=== PATIENT | female | born 1970 | race Caucasian/White ===

== ENCOUNTER 2017-11-14 19:40 | Outpatient (REF) | payer MEDICARE, MEDICAID, SELFPAY ==
[2017-11-14 20:39] LABS: ALT 17 U/L (12-78); AST 18 U/L (15-37); Alkaline Phosphatase 57 U/L (46-116); BUN 11 mg/dL (7-18); Bilirubin, Total 0.5 mg/dL (0.2-1.0); CREATININE 0.75 mg/dL (0.55-1.02); Calcium 9.4 mg/dL (8.5-10.1); Chloride 102 mmol/L (98-107); Cholesterol 131 mg/dL (50-200); Glucose 95 mg/dL (70-100); HDL Cholesterol 23 mg/dL (40-60); LDL CHOLESTEROL 73 mg/dL (<100); Potassium 4.2 mmol/L (3.5-5.1); Sodium 139 mmol/L (136-145); Total Protein 7.1 g/dL (6.4-8.2); Triglyceride 242 mg/dL (30-150)
== END 2017-11-14 20:00 ==
LOC: NCHCN 19:40
PROVIDERS: PCP Physician Assistant Medical; Visit Provider Physician Assistant Medical
DX: E10.9 Type 1 diabetes mellitus without complications (principal); Z79.4 Long term (current) use of insulin
CPT/HCPCS: 80053; 80061; 83721

== ENCOUNTER → 2018-01-01 10:55 | Outpatient (BNVA) | payer MEDICARE, MEDICAID, SELFPAY | PROVIDERS: PCP Physician Assistant Medical; Visit Provider Orthopaedic Surgery | DX: M17.0 Bilateral primary osteoarthritis of knee (principal); J44.9 Chronic obstructive pulmonary disease, unspecified; F17.210 Nicotine dependence, cigarettes, uncomplicated; I10 Essential (primary) hypertension; E11.9 Type 2 diabetes mellitus without complications; Z79.4 Long term (current) use of insulin | CPT/HCPCS: 20610; 99211; 99213; J7325 ==

== ENCOUNTER 2018-04-27 00:58 | Inpatient (IN) | payer MEDICARE, MEDICAID, SELFPAY ==
[2018-04-27] VITALS (31 sets, daily range): BP systolic 95–132; BP diastolic 37–87; PULSE 70–128; RESP 2–36; TEMP 35.3–37.8; O2SAT 65–97
--- NOTE | 2018-04-27 00:59 | W.ED.GENAD ---
Discharge Plan Disposition Patient Disposition: [facility] INPATIENT Condition: Stable Discharge Details Chief Complaint: SOB Clinical Impression: Influenza, COPD exacerbation Primary Care Provider: Maria Del Carmen Nogueira ED Provider: Jefferson Calvert Home Meds and New Rx's Prescriptions: No Action bupropion HCl 100 MG tablet 100 mg PO DAILY RF: 0 bupropion HCl 100 MG tablet 300 mg PO DAILY RF: 0 amlodipine 10 MG tablet 10 mg PO DAILY RF: 0 omeprazole 20 MG capsule,delayed release(DR/EC) 20 mg PO DAILY RF: 0 rosuvastatin [Crestor] 10 MG tablet 40 mg PO DAILY RF: 0 desvenlafaxine succinate [Pristiq] 100 MG tablet extended release 24 hr 100 mg PO DAILY RF: 0 metformin 500 MG tablet 1,000 mg PO BID RF: 0 methylphenidate HCl [Ritalin] 20 MG tablet 20 mg PO BID RF: 0 oxycodone-acetaminophen [Percocet] 1 EACH tablet 1 tab-cap PO Q4H PRN RF: 0 lorazepam 1 MG tablet 1 mg PO PRN RF: 0 albuterol sulfate 8.5 GM HFA aerosol inhaler 1 - 2 puff Inhalation Q4H PRN RF: 0 norethindrone acetate 5 MG tablet 5 mg PO DAILY Qty: 90 RF: 4 polyethylene glycol 3350 [Miralax] 17 GM powder in packet 17 g PO DAILY Qty: 255 RF: 0 methylphenidate HCl [Ritalin] 10 MG tablet 20 mg PO BID RF: 0 chlorthalidone 25 MG tablet 25 mg PO DAILY RF: 0 baclofen 10 MG tablet 10 mg PO BID RF: 0 Novolog U-100 Insulin aspart 100 UNIT/1 ML solution 50 u SQ DAILY RF: 0 gabapentin 300 MG capsule 300 mg PO BID RF: 0 atenolol 50 MG tablet 50 mg PO DAILY RF: 0 aripiprazole [Abilify] 10 MG tablet 10 mg PO DAILY RF: 0 nystatin 1 EACH powder 1 ea PO BID RF: 0 fenofibrate 160 MG tablet 160 mg PO DAILY RF: 0 Protonix [address] for susp in packet 40 mg PO DAILY RF: 0 PROVENTIL HFA 18 GM HFA.AER.AD 2 puff Inhalation Q4H PRN RF: 0 Flovent HFA 12 GM HFA aerosol inhaler 2 puff Inhalation BID Qty: 1 RF: 3 Lantus U-100 Insulin 100 UNIT/1 ML solution 36 u SQ DAILY RF: 0 lisinopril 20 MG tablet 20 mg PO DAILY RF: 0 meloxicam 15 MG tablet 15 mg PO DAILY 30 Days Qty: 30 RF: 1 Medical Decision Making 47 yo female with hx of copd and continued smoker since the age of 13 who comes in with chief complaint of productive cough and worsening shortness of breath since last Friday. She denies chest pain unless she coughs. SHe denies recent travel, vomit, abd pain. On exam she is tachypneic and is speaking in 3-4 word sentences with oxygen saturation on room air of 68% on my exam. She has diffuse audible wheezing in all lung hernandez. I suspect copd exacerbation given her symptoms, will treat with steroids and nebulizers and also obtain cxr to eval for infiltrate. She has no chest pressure and pain only when coughing so do not feel acs work up indicated. No calf pain, no pleuritic chest pain and findings consistent with copd so doubt PE at this time. pt's labs show no significant pathology, influenza test pending, xray read by vrad pending but am starting abx to cover for copd exacerbation regardless given increased cough. She is feeling better and is able to speak in full sentences now but still has room air saturations in the 70's with diffuse wheezing, will admit for copd exacerbation influenza positive, oseltamivir ordered as well Differential Diagnosis pna, copd, influenza Imaging Data Radiologic Study: Attestation: I personally reviewed and interpreted this imaging study as follows: Imaging: X-Ray ECG Data Attestation: I personally reviewed and interpreted this ECG (s) as follows: Prior ECG tracings: not available for review Interpretation: sinsu tachycardia, rate of 113, pr 146, no acute ischemic st t wave findings HPI General Mode of arrival: wheelchair. Date/Time Provider Initiated Documentation: 04/27/18 00:58. Limitations to Documentation: no limitations. Information obtained by: patient. History of Present Illness 47 year old F presents to the emergency department with the chief complaint of shortness of breath and cough, Patient started experiencing this day(s) (5) and it has been constant. No relieving factors improve symptom(s), No exacerbating factors reported . Patient notes weakness. Related Data Home Medications Medication Instructions Recorded Confirmed albuterol sulfate 1 - 2 puff INHALATION Q4H PRN 03/21/14 01/01/18 inhaler amlodipine 10 mg PO DAILY tab-cap 03/21/14 04/27/18 bupropion HCl 100 mg PO DAILY 03/21/14 01/01/18 bupropion HCl 300 mg PO DAILY 03/21/14 04/27/18 desvenlafaxine succinate [Pristiq] 100 mg PO DAILY tab-cap 03/21/14 04/27/18 lorazepam 1 mg PO PRN tab-cap 03/21/14 04/27/18 metformin 1,000 mg PO BID tab-cap 03/21/14 04/27/18 methylphenidate HCl [Ritalin] 20 mg PO BID tab-cap 03/21/14 04/27/18 omeprazole 20 mg PO DAILY tab-cap 03/21/14 04/27/18 oxycodone-acetaminophen [Percocet] 1 tab-cap PO Q4H PRN tab-cap 03/21/14 04/27/18 rosuvastatin [Crestor] 40 mg PO DAILY tab-cap 03/21/14 04/27/18 norethindrone acetate 5 mg PO DAILY #90 tab 05/22/16 04/27/18 Proventil Hfa 2 puff INHALATION Q4H PRN inhaler 04/22/17 04/27/18 aripiprazole [Abilify] 10 mg PO DAILY tab-cap 04/22/17 04/27/18 atenolol 50 mg PO DAILY tab-cap 04/22/17 04/27/18 baclofen 10 mg PO BID 04/22/17 04/27/18 chlorthalidone 25 mg PO DAILY tab-cap 04/22/17 04/27/18 fenofibrate 160 mg PO DAILY tab-cap 04/22/17 04/27/18 fluticasone propionate [Flovent 2 puff INHALATION BID #1 inhaler 04/22/17 04/27/18 220mcg] gabapentin 300 mg PO BID 04/22/17 04/27/18 insulin aspart U-100 [Novolog Vial] 50 u SQ DAILY 04/22/17 04/27/18 methylphenidate HCl [Ritalin] 20 mg PO BID tab-cap 04/22/17 01/01/18 nystatin 1 ea PO BID script 04/22/17 04/27/18 pantoprazole [Protonix] 40 mg PO DAILY 04/22/17 04/27/18 polyethylene glycol 3350 [Miralax] 17 g PO DAILY #255 gm 04/22/17 04/27/18 insulin glargine [Lantus Vial] 36 u SQ DAILY 04/23/17 04/27/18 lisinopril 20 mg PO DAILY tab-cap 04/23/17 04/27/18 meloxicam 15 mg PO DAILY 30 Days #30 tab 04/23/17 04/27/18 Previous Rx's Medication Instructions Recorded meloxicam 15 mg PO DAILY 30 Days #30 tab 04/23/17 Allergies Allergy/AdvReac Type Severity Reaction Status Date / Time amoxicillin Allergy Skin Rash Unverified 04/27/18 01:35 Sulfa (Sulfonamide Allergy Unverified 04/27/18 01:35 Antibiotics) Antiobiotics AdvReac Intermediate Rash,vomitt Uncoded 04/27/18 01:35 ing Review of Systems Review of Systems All systems reviewed & are unremarkable except as noted in HPI and below Constitutional Denies chills and Denies fever(s) Gastrointestinal Denies abdominal pain, Denies nausea and Denies vomiting Genitourinary Denies dysuria Musculoskeletal Denies joint swelling Integumentary/Breasts Denies rash [facility] Medical History COPD (chronic obstructive pulmonary disease) Chronic atrophic candidosis Depression with anxiety Diabetes mellitus type 2 in obese HTN (hypertension) Hyperlipidemia Morbid obesity HELEN (obstructive sleep apnea) Smoker Surgical History Bilat partial saplinectomy Cholecystectomy (12/07/15) Ligation of fallopian tube Open Carpal Tunnel release Repair of umbilical hernia Tonsillectomy and adenoidectomy Social History Smoking and Tabacco status: Current every day Exam Const General: other (short of breath) Orientation: alert HENRI Head: normal to inspection Ears: external ears normal General nose exam: external nose normal Mouth: moist mucous membranes Eyes General: appearance normal, both eyes and all related structures Neck Neck: normal visual inspection Resp Effort & Inspection: audible wheezes Cardio Rate: regular rate Skin General skin exam: no rashes or lesions noted Neuro General: alert and oriented x3 Extrem General: normal to inspection Psych Mental Status: mental status grossly normal
[2018-04-27] MEDS: Albuterol/Ipratropium 3 ML UPD VIAL UPD ×5 (01:04→18:14)
--- NOTE | 2018-04-27 01:08 | ED.GENADUL_ITS ---
Discharge Plan Disposition Patient Disposition: [facility] INPATIENT Condition: Stable Discharge Details Chief Complaint: SOB Clinical Impression: Influenza, COPD exacerbation Primary Care Provider: Maria Del Carmen Nogueira ED Provider: Jefferson Calvert Home Meds and New Rx's Prescriptions: No Action bupropion HCl 100 MG tablet 100 mg PO DAILY RF: 0 bupropion HCl 100 MG tablet 300 mg PO DAILY RF: 0 amlodipine 10 MG tablet 10 mg PO DAILY RF: 0 omeprazole 20 MG capsule,delayed release(DR/EC) 20 mg PO DAILY RF: 0 rosuvastatin [Crestor] 10 MG tablet 40 mg PO DAILY RF: 0 desvenlafaxine succinate [Pristiq] 100 MG tablet extended release 24 hr 100 mg PO DAILY RF: 0 metformin 500 MG tablet 1,000 mg PO BID RF: 0 methylphenidate HCl [Ritalin] 20 MG tablet 20 mg PO BID RF: 0 oxycodone-acetaminophen [Percocet] 1 EACH tablet 1 tab-cap PO Q4H PRN RF: 0 lorazepam 1 MG tablet 1 mg PO PRN RF: 0 albuterol sulfate 8.5 GM HFA aerosol inhaler 1 - 2 puff Inhalation Q4H PRN RF: 0 norethindrone acetate 5 MG tablet 5 mg PO DAILY Qty: 90 RF: 4 polyethylene glycol 3350 [Miralax] 17 GM powder in packet 17 g PO DAILY Qty: 255 RF: 0 methylphenidate HCl [Ritalin] 10 MG tablet 20 mg PO BID RF: 0 chlorthalidone 25 MG tablet 25 mg PO DAILY RF: 0 baclofen 10 MG tablet 10 mg PO BID RF: 0 Novolog U-100 Insulin aspart 100 UNIT/1 ML solution 50 u SQ DAILY RF: 0 gabapentin 300 MG capsule 300 mg PO BID RF: 0 atenolol 50 MG tablet 50 mg PO DAILY RF: 0 aripiprazole [Abilify] 10 MG tablet 10 mg PO DAILY RF: 0 nystatin 1 EACH powder 1 ea PO BID RF: 0 fenofibrate 160 MG tablet 160 mg PO DAILY RF: 0 Protonix [address] for susp in packet 40 mg PO DAILY RF: 0 PROVENTIL HFA 18 GM HFA.AER.AD 2 puff Inhalation Q4H PRN RF: 0 Flovent HFA 12 GM HFA aerosol inhaler 2 puff Inhalation BID Qty: 1 RF: 3 Lantus U-100 Insulin 100 UNIT/1 ML solution 36 u SQ DAILY RF: 0 lisinopril 20 MG tablet 20 mg PO DAILY RF: 0 meloxicam 15 MG tablet 15 mg PO DAILY 30 Days Qty: 30 RF: 1 Medical Decision Making 47 yo female with hx of copd and continued smoker since the age of 13 who comes in with chief complaint of productive cough and worsening shortness of breath since last Friday. She denies chest pain unless she coughs. SHe denies recent travel, vomit, abd pain. On exam she is tachypneic and is speaking in 3-4 word sentences with oxygen saturation on room air of 68% on my exam. She has diffuse audible wheezing in all lung hernandez. I suspect copd exacerbation given her symptoms, will treat with steroids and nebulizers and also obtain cxr to eval for infiltrate. She has no chest pressure and pain only when coughing so do not feel acs work up indicated. No calf pain, no pleuritic chest pain and findings consistent with copd so doubt PE at this time. pt's labs show no significant pathology, influenza test pending, xray read by vrad pending but am starting abx to cover for copd exacerbation regardless given increased cough. She is feeling better and is able to speak in full sentences now but still has room air saturations in the 70's with diffuse wheezing, will admit for copd exacerbation influenza positive, oseltamivir ordered as well Differential Diagnosis pna, copd, influenza Imaging Data Radiologic Study: Attestation: I personally reviewed and interpreted this imaging study as follows: Imaging: X-Ray ECG Data Attestation: I personally reviewed and interpreted this ECG (s) as follows: Prior ECG tracings: not available for review Interpretation: sinsu tachycardia, rate of 113, pr 146, no acute ischemic st t wave findings HPI General Mode of arrival: wheelchair . Date/Time Provider Initiated Documentation: 04/27/18 00:58 . Limitations to Documentation: no limitations . Information obtained by: patient . History of Present Illness 47 year old F presents to the emergency department with the chief complaint of shortness of breath and cough, Patient started experiencing this day(s) (5) and it has been constant. No relieving factors improve symptom(s), No exacerbating factors reported . Patient notes weakness. Related Data Home Medications Medication Instructions Recorded Confirmed albuterol sulfate 1 - 2 puff INHALATION Q4H PRN 03/21/14 01/01/18 inhaler amlodipine 10 mg PO DAILY tab-cap 03/21/14 04/27/18 bupropion HCl 100 mg PO DAILY 03/21/14 01/01/18 bupropion HCl 300 mg PO DAILY 03/21/14 04/27/18 desvenlafaxine succinate [Pristiq] 100 mg PO DAILY tab-cap 03/21/14 04/27/18 lorazepam 1 mg PO PRN tab-cap 03/21/14 04/27/18 metformin 1,000 mg PO BID tab-cap 03/21/14 04/27/18 methylphenidate HCl [Ritalin] 20 mg PO BID tab-cap 03/21/14 04/27/18 omeprazole 20 mg PO DAILY tab-cap 03/21/14 04/27/18 oxycodone-acetaminophen [Percocet] 1 tab-cap PO Q4H PRN tab-cap 03/21/14 rosuvastatin [Crestor] 40 mg PO DAILY tab-cap 03/21/14 04/27/18 norethindrone acetate 5 mg PO DAILY #90 tab 05/22/16 04/27/18 Proventil Hfa 2 puff INHALATION Q4H PRN inhaler 04/22/17 04/27/18 aripiprazole [Abilify] 10 mg PO DAILY tab-cap 04/22/17 04/27/18 atenolol 50 mg PO DAILY tab-cap 04/22/17 04/27/18 baclofen 10 mg PO BID 04/22/17 04/27/18 chlorthalidone 25 mg PO DAILY tab-cap 04/22/17 04/27/18 fenofibrate 160 mg PO DAILY tab-cap 04/22/17 04/27/18 fluticasone propionate [Flovent 2 puff INHALATION BID #1 inhaler 04/22/17 04/27/18 220mcg] gabapentin 300 mg PO BID 04/22/17 04/27/18 insulin aspart U-100 [Novolog Vial] 50 u SQ DAILY 04/22/17 04/27/18 methylphenidate HCl [Ritalin] 20 mg PO BID tab-cap 04/22/17 01/01/18 nystatin 1 ea PO BID script 04/22/17 04/27/18 pantoprazole [Protonix] 40 mg PO DAILY 04/22/17 04/27/18 polyethylene glycol 3350 [Miralax] 17 g PO DAILY #255 gm 04/22/17 04/27/18 insulin glargine [Lantus Vial] 36 u SQ DAILY 04/23/17 04/27/18 lisinopril 20 mg PO DAILY tab-cap 04/23/17 04/27/18 meloxicam 15 mg PO DAILY 30 Days #30 tab 04/23/17 04/27/18 Previous Rx's Medication Instructions Recorded meloxicam 15 mg PO DAILY 30 Days #30 tab 04/23/17 Allergies Allergy/AdvReac Type Severity Reaction Status Date / Time amoxicillin Allergy Skin Rash Unverified 04/27/18 01:35 Sulfa (Sulfonamide Allergy Unverified 04/27/18 01:35 Antibiotics) Antiobiotics AdvReac Intermediate Rash,vomitt Uncoded 04/27/18 01:35 ing Review of Systems Review of Systems All systems reviewed & are unremarkable except as noted in HPI and below Constitutional Denies chills and Denies fever(s) Gastrointestinal Denies abdominal pain, Denies nausea and Denies vomiting Genitourinary Denies dysuria Musculoskeletal Denies joint swelling Integumentary/Breasts Denies rash [facility] Medical History COPD (chronic obstructive pulmonary disease) Chronic atrophic candidosis Depression with anxiety Diabetes mellitus type 2 in obese HTN (hypertension) Hyperlipidemia Morbid obesity HELEN (obstructive sleep apnea) Smoker Surgical History Bilat partial saplinectomy Cholecystectomy (12/07/15) Ligation of fallopian tube Open Carpal Tunnel release Repair of umbilical hernia Tonsillectomy and adenoidectomy Social History Smoking and Tabacco status: Current every day Exam Const General: other (short of breath) Orientation: alert HENIA Head: normal to inspection Ears: external ears normal General nose exam: external nose normal Mouth: moist mucous membranes Eyes General: appearance normal, both eyes and all related structures Neck Neck: normal visual inspection Resp Effort & Inspection: audible wheezes Cardio Rate: regular rate Skin General skin exam: no rashes or lesions noted Neuro General: alert and oriented x3 Extrem General: normal to inspection Psych Mental Status: mental status grossly normal
--- NOTE | 2018-04-27 01:15 | DI.RAD_ITS ---
SYMPTOMS/DIAGNOSIS: COUGH PORTABLE CHEST: Portable frontal view. Comparison 06/19/09. There is poor inspiration with crowding of the pulmonary vasculature. The cardiac size appears within normal limits. The pulmonary vasculature appears somewhat distinct. This may reflect pulmonary edema. No focal consolidating infiltrate is seen. There is blunting of the left costophrenic angle and a small left pleural effusion can not be excluded. IMPRESSION: 1. Suboptimal examination due to poor patient inspiration. 2. Question of mildly indistinct pulmonary vasculature, and pulmonary edema can not be excluded. Please correlate clinically.
[2018-04-27 01:21] LABS: Abs Immature Grans 0.04 k/cumm (0.0-0.09); Absolute Basophil Count 0.05 k/cumm (0.0-0.2); Absolute Lymphocyte Count 2.16 k/cumm (1.2-3.4); Absolute Monocyte Count 1.21 k/cumm (0.11-0.7); Absolute Neutrophil Count 5.49 k/cumm (1.2-6.7); Basophils % 0.6; HCT 48.2 % (36.0-46.0); HGB 16.3 g/dL (12.0-15.5); Immature Grans % 0.4; Lymphocytes % 24.1; Mean Corp. HGB Concentration 33.8 g/dL (32.0-36.0); Mean Corpuscular Hemoglobin 32.5 pg (27.0-33.0); Mean Corpuscular Volume 96.2 fL (80-95); Mean Platelet Volume 9.8 fL (8.0-11.0); Monocytes % 13.5; Neutrophils % 61.4; Platelet Count 219 x1000/uL (130-400); RBC 5.01 m/cumm (4.00-5.20); RBC Distribution Width 14.2 % (11.7-14.6); White Blood Cell Count 8.95 k/cumm (4.4-10.8)
[2018-04-27 01:35] LABS: ALT 29 U/L (12-78); AST 32 U/L (15-37); Albumin 3.3 g/dL (3.4-5.0); Alkaline Phosphatase 88 U/L (46-116); Anion Gap 7.8 mmol/L (3-11); BUN 27 mg/dL (7-18); Bilirubin, Total 0.4 mg/dL (0.2-1.0); CO2 32.2 mmol/L (21.0-32.0); CREATININE 0.88 mg/dL (0.55-1.02); Calcium 9.7 mg/dL (8.5-10.1); Chloride 95 mmol/L (98-107); Glucose 215 mg/dL (70-100); Lipase 61 U/L (73-393); Magnesium 1.7 mg/dL (1.8-2.4); Potassium 3.7 mmol/L (3.5-5.1); Sodium 135 mmol/L (136-145); Total Protein 8.4 g/dL (6.4-8.2)
[2018-04-27] MEDS: Albuterol 2.5 MG/3 ML INH SOLN VIAL ×2 (01:43→03:50)
[2018-04-27] MEDS: methylPREDNISolone SUCC 125 MG VIAL IVP (02:06)
[2018-04-27] MEDS: Oseltamivir 75 MG CAP PO ×3 (02:17→20:12)
--- NOTE | 2018-04-27 02:57 | DI.VRAD_ITS ---
EXAM: XR Chest, 1 View EXAM DATE/TIME: 04/27/2018 1:21 AM CLINICAL HISTORY: 47 years old, female; Signs and symptoms; Cough and shortness of breath; Patient HX: Cough, SOB; Additional info: HX copd TECHNIQUE: XR of the chest, 1 view. COMPARISON: No relevant prior studies available. FINDINGS: Lungs: Pulmonary vasculature is indistinct. Pleural space: Unremarkable. No evidence of pneumothorax. Heart/Mediastinum: Unremarkable. Heart size within normal limits for technique. Bones/joints: Unremarkable. IMPRESSION: Pulmonary edema. Dictated and Authenticated by: Jose Carlos Rodriguez MD. Ordering:JL Paulino MD
[2018-04-27] MEDS: Normal Saline 1,000 ML 150 ML IV (03:37)
[2018-04-27] MEDS: AZITHROMYCIN 500 MG in Normal Saline 250 ML 250 MG IVPB (03:38)
[2018-04-27] MEDS: Water,Injection,Bacteriostatic 30 ML VIAL (03:47)
--- NOTE | 2018-04-27 04:30 | NUR.NOTE ---
Nursing Note: At 02:54 hrs. Pt brought to Rm. 212, alert and oriented x 3. Obese and having non productive cough. Lung sounds with crackles on right side and diminished on the left side. Afebrile.On Hi Flow O2 at 8L via NC. Significant other at bedside. oriented to call lights system.
--- NOTE | 2018-04-27 05:52 | W.PM.HP.N ---
Date of service: 04/27/18 Time of Service: 05:52 Assessment and Plan (1) COPD with acute exacerbation: Start date: 04/21/18 Current visit: Yes Status: Acute This is a 47-year-old lady who presented with hypoxemia and worsening of her symptoms with COPD exacerbation having been a smoker, just stopping with her and acute respiratory illness last week. She is positive for influenza A and chest x-ray may indicate patchy infiltrates though it was read as pulmonary edema. Patient does have chronic COPD and continues to smoke. She also has sleep apnea and she does not wear her CPAP mask. She is morbidly obese and very sedentary with chronic pain. She will be admitted for treatment of her acute COPD exacerbation and possible community-acquired pneumonia with acute influenza A. (2) Influenza A: Start date: 04/27/18 Current visit: Yes Status: Acute Patient may have had exposure to this at home and I tried to indicate that she was prescribed prophylaxis with Tamiflu but this may not. She will be treated for acute influenza A. (3) Diabetes mellitus: Current visit: Yes Status: Chronic This is a chronic problem improved with diet and only on metformin as an outpatient. This will be exacerbated by her steroid treatment presently and will receive sliding scale short acting insulin as an inpatient and she can continue this as an outpatient once she returns home. Her metformin will be held during her hospital stay. History of Present Illness Chief Complaint: Shortness of breath with hypoxemia Narrative: This is a 47-year-old lady who is morbidly obese with a history of sleep apnea and asthma being a current smoker having just stopped when she became ill recently, who presented to the ED because of increasing shortness of breath. She had been ill since last Friday, worsening the last day or 2. She has had increased sweats but no significant measured fever. She was extremely short of breath speaking in only 2-3 words and hypoxic with her pulse oximeter below 70% upon presentation to the ED. She improved with IV Solu-Medrol and nebulizer treatments with evaluation was found to be in exacerbation of her chronic COPD as well as having acute influenza A. Chest x-ray was read as pulmonary edema though it appears to be more diffuse patchy infiltrates in a morbidly obese patient with a poor film. She has no history of heart failure or overt heart disease. Patient does have diabetes which have been improved with diet and often some with only metformin being used recently but she does have short-acting insulin at home for use. She does not treat her sleep apnea and as stated has been still smoking. She has chronic pain and disease on multiple meds. She does take Ritalin for drowsiness. She has had no recent increased peripheral edema with this being mild with her obesity and she denies chest pain unless she coughs. She has no focal neurological complaints. She has had no GI or complaints. Review of Systems Review of Systems 13 point review of systems otherwise unrevealing or stable and as per HPI for acute symptoms. [facility] Medical History COPD (chronic obstructive pulmonary disease) Chronic atrophic candidosis Depression with anxiety Diabetes mellitus type 2 in obese HTN (hypertension) Hyperlipidemia Morbid obesity HEELN (obstructive sleep apnea) Smoker Surgical History Bilat partial saplinectomy Cholecystectomy (12/07/15) Ligation of fallopian tube Open Carpal Tunnel release Repair of umbilical hernia Tonsillectomy and adenoidectomy Social History Smoking and Tabacco status: Current every day Meds Home Medications Medication Instructions Recorded Confirmed Type albuterol sulfate 1 - 2 puff INHALATION Q4H PRN 03/21/14 01/01/18 History inhaler amlodipine 10 mg PO DAILY tab-cap 03/21/14 04/27/18 History bupropion HCl 100 mg PO DAILY 03/21/14 01/01/18 History bupropion HCl 300 mg PO DAILY 03/21/14 04/27/18 History desvenlafaxine succinate [Pristiq] 100 mg PO DAILY tab-cap 03/21/14 04/27/18 History lorazepam 1 mg PO PRN tab-cap 03/21/14 04/27/18 History metformin 1,000 mg PO BID tab-cap 03/21/14 04/27/18 History methylphenidate HCl [Ritalin] 20 mg PO BID tab-cap 03/21/14 04/27/18 History omeprazole 20 mg PO DAILY tab-cap 03/21/14 04/27/18 History oxycodone-acetaminophen [Percocet] 1 tab-cap PO Q4H PRN tab-cap 03/21/14 04/27/18 History rosuvastatin [Crestor] 40 mg PO DAILY tab-cap 03/21/14 04/27/18 History norethindrone acetate 5 mg PO DAILY #90 tab 05/22/16 04/27/18 History Proventil Hfa 2 puff INHALATION Q4H PRN inhaler 04/22/17 04/27/18 History aripiprazole [Abilify] 10 mg PO DAILY tab-cap 04/22/17 04/27/18 History atenolol 50 mg PO DAILY tab-cap 04/22/17 04/27/18 History baclofen 10 mg PO BID 04/22/17 04/27/18 History chlorthalidone 25 mg PO DAILY tab-cap 04/22/17 04/27/18 History fenofibrate 160 mg PO DAILY tab-cap 04/22/17 04/27/18 History fluticasone propionate [Flovent 2 puff INHALATION BID #1 inhaler 04/22/17 04/27/18 History 220mcg] gabapentin 300 mg PO BID 04/22/17 04/27/18 History insulin aspart U-100 [Novolog Vial] 50 u SQ DAILY 04/22/17 04/27/18 History methylphenidate HCl [Ritalin] 20 mg PO BID tab-cap 04/22/17 01/01/18 History nystatin 1 ea PO BID script 04/22/17 04/27/18 History pantoprazole [Protonix] 40 mg PO DAILY 04/22/17 04/27/18 History polyethylene glycol 3350 [Miralax] 17 g PO DAILY #255 gm 04/22/17 04/27/18 History insulin glargine [Lantus Vial] 36 u SQ DAILY 04/23/17 04/27/18 History lisinopril 20 mg PO DAILY tab-cap 04/23/17 04/27/18 History meloxicam 15 mg PO DAILY 30 Days #30 tab 04/23/17 04/27/18 Rx Allergies Allergy/AdvReac Type Severity Reaction Status Date / Time amoxicillin Allergy Skin Rash Unverified 04/27/18 01:35 Sulfa (Sulfonamide Allergy Unverified 04/27/18 01:35 Antibiotics) Antiobiotics AdvReac Intermediate Rash,vomitt Uncoded 04/27/18 01:35 ing Exam Narrative Exam Narrative: General: Patient appears of her age, in moderate distress with tachypnea sitting up in bed with diffuse sweats but speaking comfortably. She is alert and oriented x3. HEENT: Normocephalic with eyes revealing pupils equal and reactive to light symmetrically, extraocular movement intact and sclera anicteric. Oropharynx with dry mucosa and fair dentition. Ears are normal. Neck: Supple without JVD. Back: Stooped posture with no CVA tenderness. Lungs: Diffuse expiratory coarse crackles with slightly increased expiratory phase and expiratory wheeze diffusely. Poor aeration. Heart: Regular rate and rhythm without murmurs or gallops. Breast: Not examined. Abdomen: Morbidly obese with large pannus overhanging her pubic area, soft and nontender with no palpable hepatomegaly. Bowel sounds positive in all quadrants. Genitalia rectal exam: Not examined. Extremities: Nonpitting edema without cyanosis or clubbing. Knees have decreased range of motion with crepitus and periarticular atrophy. There is diffuse muscle atrophy over her extremities in general. Neuro: Motor grossly intact. Cranial nerves II through XII grossly intact. No Babinski's. Skin: Pale, moist and cool to touch with no rashes. Psych: Normal affect with slightly pressured speech. Normal thought processes. Memory intact. Results Imaging Imaging Studies: XR Chest, 1 View EXAM DATE/TIME: 04/27/2018 1:21 AM CLINICAL HISTORY: 47 years old, female; Signs and symptoms; Cough and shortness of breath; Patient HX: Cough, SOB; Additional info: HX copd TECHNIQUE: XR of the chest, 1 view. COMPARISON: No relevant prior studies available. FINDINGS: Lungs: Pulmonary vasculature is indistinct. Pleural space: Unremarkable. No evidence of pneumothorax. Heart/Mediastinum: Unremarkable. Heart size within normal limits for technique. Bones/joints: Unremarkable. IMPRESSION: Pulmonary edema. Dictated and Authenticated by: Jose Carlos Rodriguez MD. Ordering:JL Paulino MD Labs : 04/27/18 01:14 04/27/18 01:14 Laboratory Results - last 24 hr 04/27/18 04/27/18 01:14 01:14 WBC 8.95 RBC 5.01 Hgb 16.3 H Hct 48.2 H MCV 96.2 H MCH 32.5 MCHC 33.8 RDW 14.2 Plt Count 219 MPV 9.8 Immature Gran % 0.4 Neutrophils % 61.4 Lymphocytes % 24.1 Monocytes % 13.5 Eosinophils % 0.0 Basophils % 0.6 Absolute Neutrophils 5.49 Absolute Lymphocytes 2.16 Absolute Monocytes 1.21 H Absolute Eosinophils 0.00 Absolute Basophils 0.05 Sodium 135 L Potassium 3.7 Chloride 95 L Carbon Dioxide 32.2 H Anion Gap 7.8 BUN 27 H Creatinine 0.88 Estimated GFR/1.73 m2 >= 60.00 Glucose 215 H Calcium 9.7 Magnesium 1.7 L Total Bilirubin 0.4 AST 32 ALT 29 Alkaline Phosphatase 88 Total Protein 8.4 H Albumin 3.3 L Lipase 61 L Last Vital Signs Temp 36.6 C 04/27/18 04:17 Pulse 83 04/27/18 04:17 Resp 22 04/27/18 04:17 BP 124/75 04/27/18 04:17 Pulse Ox 95 04/27/18 04:17
[2018-04-27] MEDS: Enoxaparin 40 MG/0.4 ML SYR SC (06:29)
[2018-04-27] MEDS: ROSUVASTATIN 20 MG TAB 40 MG PO (09:20)
[2018-04-27] MEDS: Meloxicam 15 MG TAB PO (09:20)
[2018-04-27] MEDS: Gabapentin 300 MG CAP PO ×2 (09:20→20:11)
[2018-04-27] MEDS: Lisinopril 20 MG TAB PO (09:21)
[2018-04-27] MEDS: Chlorthalidone 25 MG TAB PO (09:21)
[2018-04-27] MEDS: Pantoprazole 40 MG TABCR PO (09:21)
[2018-04-27] MEDS: amLODIPine 10 MG TAB PO (09:21)
[2018-04-27] MEDS: ARIPiprazole 5 MG TAB 10 MG PO (09:21)
[2018-04-27] MEDS: Atenolol 50 MG TAB PO (09:22)
[2018-04-27] MEDS: Norethindrone 5 MG TAB PO (09:22)
[2018-04-27] MEDS: Baclofen 10 MG TAB PO ×2 (09:22→20:12)
[2018-04-27] MEDS: Methylphenidate 10 MG TAB 20 MG PO (09:22)
[2018-04-27] MEDS: Insulin Aspart 300 UNITS/3 ML PEN SC ×3 (09:24→17:05)
[2018-04-27] MEDS: Magnesium Chloride 64 MG TABCR PO (09:45)
[2018-04-27] MEDS: buPROPion-XL 150 MG TABCR 300 MG PO (09:46)
[2018-04-27] MEDS: buPROPion-CR 100 MG TABCR PO (09:46)
--- NOTE | 2018-04-27 10:05 | PDOC.CMIN ---
- If Service Date Differs Date of service: 04/27/18 Time of Service: 10:05 Care Management Initial Assess REASON FOR HOSPITALIZATION:: Influenza A, Pneumonia, COPD with a history of DM. PAST MEDICAL HISTORY/PAST SURGICAL HISTORY:: COPD (chronic obstructive pulmonary disease),Chronic atrophic candidosis, Depression with anxiety, Diabetes mellitus type 2 in obese, HTN, Hyperlipidemia, Morbid obesity, HELEN (obstructive sleep apnea), Smoker. Surgical Hx: Bilat partial saplinectomy, tubal ligation, carpal tunnel release, umbilical hernia, and tonsillectomy, adenoidectomy. PREVIOUS FUNCTIONAL STATUS/SOCIAL/FAMILY SUPPORTS:: Rosibel lives in [facility] she has two grown children in the area. She has a support person she lives with Douglas. 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 She meets with her primary care once a month at [facility]. She depends on her friend Douglas for transportation. CURRENT FUNCTIONAL STATUS:: Rosibel is sitting up in the chair she is alert and engaged during assessment. She states she has a nebulizer at home and had recently ran out of her medications for it. She has been hospitalized one other time for pneumonia which resulted in her obtaining a nebulizer. ADVANCE DIRECTIVES:: None on file she would like to complete during this admission. Has patient been provided with information about the portal?: Yes Did the patient sign up for the portal?: No CODE STATUS:: Full Code INSURANCE COVERAGE / FINANCIAL ISSUES:: Medicare CURRENT HOME/COMMUNITY SERVICES/EQUIPMENT:: Nebulizer, through [facility] PRIMARY CARE PHYSICIAN:: [facility] POTENTIAL DISCHARGE NEEDS:: Follow up appointment scheudled with primary care prior to discharge. PATIENT/FAMILY EDUCATION NEEDS:: Discharge education, limitations and follow up plan of care, ask me three education and self management. ANTICIPATED BARRIERS TO DISCHARGE:: None identified. TRANSPORTATION:: Via private car with friend Douglas at time of discharge. PLAN:: Rosibel will be discharged home when medically ready. She will be referred to Pulmonary Rehab at time of discharge .She will need a primary care appointment with primary care scheduled prior to discharge. CM provided advance directive forms to patient and will provide support in completing when she is ready.
--- NOTE | 2018-04-27 10:15 | INITIAL_ITS ---
- If Service Date Differs Date of service: 04/27/18 Time of Service: 10:05 Care Management Initial Assess REASON FOR HOSPITALIZATION:: Influenza A, Pneumonia, COPD with a history of DM. PAST MEDICAL HISTORY/PAST SURGICAL HISTORY:: COPD (chronic obstructive pulmonary disease),Chronic atrophic candidosis, Depression with anxiety, Diabetes mellitus type 2 in obese, HTN, Hyperlipidemia, Morbid obesity, HELEN (obstructive sleep apnea), Smoker. Surgical Hx: Bilat partial saplinectomy, tubal ligation, carpal tunnel release, umbilical hernia, and tonsillectomy, adenoidectomy. PREVIOUS FUNCTIONAL STATUS/SOCIAL/FAMILY SUPPORTS:: Rosibel lives in [facility] she has two grown children in the area. She has a support person she lives with Douglas. 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 She meets with her primary care once a month at [facility]. She depends on her friend Douglas for transportation. CURRENT FUNCTIONAL STATUS:: Rosibel is sitting up in the chair she is alert and engaged during assessment. She states she has a nebulizer at home and had recently ran out of her medications for it. She has been hospitalized one other time for pneumonia which resulted in her obtaining a nebulizer. ADVANCE DIRECTIVES:: None on file she would like to complete during this admission. Has patient been provided with information about the portal?: Yes Did the patient sign up for the portal?: No CODE STATUS:: Full Code INSURANCE COVERAGE / FINANCIAL ISSUES:: Medicare CURRENT HOME/COMMUNITY SERVICES/EQUIPMENT:: Nebulizer, through [facility] PRIMARY CARE PHYSICIAN:: [facility] POTENTIAL DISCHARGE NEEDS:: Follow up appointment scheudled with primary care prior to discharge. PATIENT/FAMILY EDUCATION NEEDS:: Discharge education, limitations and follow up plan of care, ask me three education and self management. ANTICIPATED BARRIERS TO DISCHARGE:: None identified. TRANSPORTATION:: Via private car with friend Douglas at time of discharge. PLAN:: Rosibel will be discharged home when medically ready. She will be referred to Pulmonary Rehab at time of discharge .She will need a primary care appointment with primary care scheduled prior to discharge. CM provided advance directive forms to patient and will provide support in completing when she is ready.
[2018-04-27] MEDS: Normal Saline 1,000 ML 100 ML IV (11:07)
[2018-04-27 11:37] LABS: NT-proBNP 982 pg/mL
--- NOTE | 2018-04-27 11:39 | W.PM.PROGNOT ---
Date of Service Date of service: 04/27/18 Time of Service: 11:50 Assessment and Plan (1) COPD with acute exacerbation: Start date: 04/27/18 Start time: 11:40 Current visit: Yes Status: Acute Hx COPD, with flu A in the setting of Hypoxia, requiring Hi Stacey oxygenation. CXR revealed pulmonary edema. Lung with crackles in lower bases, no edema, SOB improving, CXR looks as though it could be multilobular pneumonia, question pneumonia vs. pulmonary edema. She has not had an echo in years. Echo ordered. Lasix 40 IVP given in setting of questionable pul. edema and crackles. BNP 982 which is not significantly high given she does have COPD Will continue steroids, nebs, antibiotics, tamiflu, azithromycin day 2, rocephin day 2, await results from echo. IVF dcd at this time (2) Influenza A: Start date: 04/27/18 Start time: 11:46 Current visit: Yes Status: Acute continue tamiflu BID (3) Diabetes mellitus: Start date: 04/27/18 Start time: 11:47 Current visit: Yes Status: Chronic SSI moderate as she is on steroids (4) Tobacco abuse: Start date: 04/27/18 Start time: 11:47 Current visit: Yes Status: Acute nicotine patch available (5) Acute exacerbation of CHF (congestive heart failure): Start date: 04/27/18 Start time: 11:47 Current visit: Yes Status: Acute questionable from CXR, read as pulmonary edema, she does recall an echo from years ago, she does have HELEN, putting her at higher risk for heart strain, echo has been ordered. IV lasix 40 mg given will monitor. Pulmonary edema LHF vs pneumonia (6) DVT prophylaxis: Start date: 04/27/18 Start time: 11:50 Current visit: Yes Status: Acute lovenox subcu (7) HELEN (obstructive sleep apnea): Start date: 04/27/18 Start time: 11:50 Current visit: Yes Status: Chronic does not wear cpap or bipap machine Subjective Patient reports: feels better Interval history since last seen: Today she is feeling much better. Lung sounds with fine crackles in bilateral lower bases. She is on 6 L high stacey at this time. No peripheral edema. Inhaled steroids have been added to her regimen. There is question of pulmonary edema on her CXR, it does appear it could be patchy infilitrates. She has not had an echo in years. Given this could be cardiac vs infectious and echo was ordered. She had a slightly elevated bnp at 982 could represent CHF or from COPD. IV lasix 40 mg was orderd IVF dcd at this time. Awaiting echo at this time. We will monitor and diuresis as needed for pulmonary edema. Exam Const General: cooperative, comfortable and no acute distress HENMT Head: normal to inspection Neck Lymphatic: no lymphadenopathy noted and no lymphedema noted Resp Effort & Inspection: normal respiratory effort and able to speak in complete sentences Auscultation: crackles (fine in lower bases bilaterally) and diminished lung sounds Cardio Jugular venous pressure: no JVD Rhythm: regular rhythm Heart Sounds: S1 normal and S2 normal GI Inspection: normal to inspection Auscultation: normal bowel sounds Skin General skin exam: no rashes or lesions noted Neuro General: alert, awake and oriented x3 Extrem General: normal to inspection Objective Objective Clinical Data: Abnormal lab results 04/27/18 04/27/18 04/27/18 Range/Units 01:14 01:14 10:25 Hgb 16.3 H (12.0-15.5) g/dL Hct 48.2 H (36.0-46.0) % MCV 96.2 H (80-95) fL Absolute Monocytes 1.21 H (0.11-0.7) k/cumm Sodium 135 L (136-145) mmol/L Chloride 95 L (98-107) mmol/L Carbon Dioxide 32.2 H (21.0-32.0) mmol/L BUN 27 H (7-18) mg/dL Glucose 215 H (70-100) mg/dL Magnesium 1.7 L (1.8-2.4) mg/dL NT-Pro-B Natriuret Pep 982 H ( - 299) pg/mL Total Protein 8.4 H (6.4-8.2) g/dL Albumin 3.3 L (3.4-5.0) g/dL Lipase 61 L (73-393) U/L Vital Signs Temperature 36 C L 04/27/18 11:17 Temperature Source Tympanic 04/27/18 11:17 Pulse 73 04/27/18 11:17 Pulse 103 H 04/27/18 02:30 Respiratory Rate 20 04/27/18 11:17 Respiratory Effort 04/27/18 03:09 Respiratory Depth Shallow 04/27/18 03:09 Respiratory Pattern Irregular 04/27/18 03:09 Blood Pressure 132/84 04/27/18 11:17 Blood Pressure Mean 64 04/27/18 02:16 Blood Pressure Position Sitting 04/27/18 01:12 Pulse Oximetry 93 L 04/27/18 11:17 Oxygen Delivery Method Hi Flow Nasal Cannula 04/27/18 11:17 Oxygen Flow Rate 2 04/27/18 11:17 Pain Level 0 04/27/18 08:04 Comment 04/27/18 01:12 Intake & Output 04/26/18 04/26/18 04/27/18 11:59 23:59 11:59 Intake Total 2131.28 / 2131.28 Output Total 550 / 550 Balance 1581.28 / 1581.28 Weight 121.9 kg Intake: IV 1411.28 / 1411.28 Oral 720 / 720 Output: Urine 550 / 550 Other: Urine Color Light Maritza Urine Appearance Clear Urine Odor None Comment Void x1 in the toilet. Voiding Methods Toilet Laboratory Results WBC 8.95 k/cumm (4.4-10.8) 04/27/18 01:14 RBC 5.01 m/cumm (4.00-5.20) 04/27/18 01:14 Hgb 16.3 g/dL (12.0-15.5) H 04/27/18 01:14 Hct 48.2 % (36.0-46.0) H 04/27/18 01:14 MCV 96.2 fL (80-95) H 04/27/18 01:14 MCH 32.5 pg (27.0-33.0) 04/27/18 01:14 MCHC 33.8 g/dL (32.0-36.0) 04/27/18 01:14 RDW 14.2 % (11.7-14.6) 04/27/18 01:14 Plt Count 219 x1000/uL (130-400) 04/27/18 01:14 MPV 9.8 fL (8.0-11.0) 04/27/18 01:14 Immature Gran % 0.4 04/27/18 01:14 Neutrophils % 61.4 04/27/18 01:14 Lymphocytes % 24.1 04/27/18 01:14 Monocytes % 13.5 04/27/18 01:14 Eosinophils % 0.0 04/27/18 01:14 Basophils % 0.6 04/27/18 01:14 Absolute Neutrophils 5.49 k/cumm (1.2-6.7) 04/27/18 01:14 Absolute Lymphocytes 2.16 k/cumm (1.2-3.4) 04/27/18 01:14 Absolute Monocytes 1.21 k/cumm (0.11-0.7) H 04/27/18 01:14 Absolute Eosinophils 0.00 k/cumm (0.0-0.7) 04/27/18 01:14 Absolute Basophils 0.05 k/cumm (0.0-0.2) 04/27/18 01:14 Sodium 135 mmol/L (136-145) L 04/27/18 01:14 Potassium 3.7 mmol/L (3.5-5.1) 04/27/18 01:14 Chloride 95 mmol/L (98-107) L 04/27/18 01:14 Carbon Dioxide 32.2 mmol/L (21.0-32.0) H 04/27/18 01:14 Anion Gap 7.8 mmol/L (3-11) 04/27/18 01:14 BUN 27 mg/dL (7-18) H 04/27/18 01:14 Creatinine 0.88 mg/dL (0.55-1.02) 04/27/18 01:14 Estimated GFR/1.73 m2 >= 60.00 (mL/min/1.73m2) 04/27/18 01:14 Glucose 215 mg/dL (70-100) H 04/27/18 01:14 Calcium 9.7 mg/dL (8.5-10.1) 04/27/18 01:14 Magnesium 1.7 mg/dL (1.8-2.4) L 04/27/18 01:14 Total Bilirubin 0.4 mg/dL (0.2-1.0) 04/27/18 01:14 AST 32 U/L (15-37) 04/27/18 01:14 ALT 29 U/L (12-78) 04/27/18 01:14 Alkaline Phosphatase 88 U/L (46-116) 04/27/18 01:14 NT-Pro-B Natriuret Pep 982 pg/mL (-299) H 04/27/18 10:25 Total Protein 8.4 g/dL (6.4-8.2) H 04/27/18 01:14 Albumin 3.3 g/dL (3.4-5.0) L 04/27/18 01:14 Lipase 61 U/L (73-393) L 04/27/18 01:14
--- NOTE | 2018-04-27 11:44 | CHAPLAIN ---
Rosibel was sitting up when I visited. A family member was with her. She was pleasant and told me she's feeling much better than just 12 hours ago. A few members of her household have been sick with the flu, she said, including her adult son and a six year old grandson. Rosibel seems to be comfortable being here and is relieved to be feeling better.
[2018-04-27] MEDS: Mometasone 220 MCG 14 DOSE INHALER 2 PUFF IH ×2 (11:58→20:16)
[2018-04-27] MEDS: Furosemide 40 MG/4 ML VIAL IVP (12:13)
[2018-04-27] MEDS: Normal Saline Flush 10 ML SYR IVP ×3 (12:14→20:11)
--- NOTE | 2018-04-27 12:30 | MERGE_ITS ---
*[facility]* *[facility]* [address] [place] [address] Date of study: 04/27/2018 Transthoracic Echocardiography M-mode, complete 2D, complete spectral Doppler, and color Doppler *STUDY CONCLUSIONS* Summary: 1. Left ventricle: The cavity size was normal. Systolic function was hyperdynamic. The estimated ejection fraction was 65-70%. Some parameters suggest diastolic dysfunction. There was no evidence of elevated ventricular filling pressure by Doppler parameters. 2. Ventricular septum: Septal motion showed paradoxical motion. 3. Aortic valve: There was mild regurgitation. 4. Left atrium: The atrium was mildly dilated. 5. Right ventricle: The cavity size was mildly dilated. Systolic function was mildly reduced. 6. Right atrium: The atrium was mildly dilated. 7. Atrial septum: No defect or patent foramen ovale was identified. 8. Tricuspid valve: There was mild-moderate regurgitation. 9. Pulmonary arteries: Pulmonary systolic pressure was in the range of 50mm Hg to 60mm Hg. 10. Inferior vena cava: The vessel was patent and normal in size. The respirophasic diameter changes were in the normal range (greater than or equal to 50%), consistent with normal central venous pressure. *PATIENT PRESENTATION* Height: 154.9cm ((61in) ) S/D Pressure: 132 / 84 Weight: 121.6kg ((267.4lb) ) BSA: 2.37m^2 Test start time: 12:45 PM. Test stop time: 01:40 PM. PERFORMING Unknown PERFORMING [facility] CONSULTING Maria Del Carmen Nogueira COMPUTER SYSTEMS SOFTWARE ENGINEER RT Amauri (R)(CT), RD ORDERING Florecita Birmingham REFERRING Florecita Birmingham *PROCEDURE DATA* Procedure information: The patient was identified by two identifiers. This study was interpreted by [facility]. Pertinent images and digital data are archived for permanent storage and are available for subsequent review. Comparison was made to the study of 2006. Study status: Routine. Transthoracic echocardiography. M-mode, complete 2D, complete spectral Doppler, and color Doppler. A Transthoracic Echocardiogram was performed. Scanning was performed from the parasternal, apical, subcostal, and suprasternal notch acoustic windows. Images were obtained using an [id number] cardiac ultrasound machine. Image quality was good. Study completion: The patient tolerated the procedure well. History: PMH: Pulmonary edema, hypoxia, COPD. *CARDIAC ANATOMY* Left ventricle: The cavity size was normal. Systolic function was hyperdynamic. The estimated ejection fraction was 65-70%. The tissue Doppler parameters were abnormal. Some parameters suggest diastolic dysfunction. There was no evidence of elevated ventricular filling pressure by Doppler parameters. Aortic valve: Trileaflet. Doppler: There was no stenosis. There was mild regurgitation. VTI ratio of LVOT to aortic valve: 0.63. Valve area (VTI): 2.1cm^2. Indexed valve area (VTI): 0.9cm^2/m^2. Peak velocity ratio of LVOT to aortic valve: 0.69. Valve area (Vmax): 2.3cm^2. Indexed valve area (Vmax): 1cm^2/m^2. Mean velocity ratio of LVOT to aortic valve: 0.76. Valve area (Vmean): 2.5cm^2. Indexed valve area (Vmean): 1.1cm^2/m^2. Mean gradient (S): 6.3mm Hg. Peak gradient (S): 11.5mm Hg. Aorta: Aortic root: The aortic root was normal in size. Mitral valve: Doppler: There was no evidence for stenosis. There was no significant regurgitation. Valve area by pressure half-time: 3.7cm^2. Indexed valve area by pressure half-time: 1.5cm^2/m^2. Peak gradient (D): 2.4mm Hg. Left atrium: The atrium was mildly dilated. Atrial septum: No defect or patent foramen ovale was identified. Right ventricle: The cavity size was mildly dilated. Systolic function was mildly reduced. Ventricular septum: Septal motion showed paradoxical motion. Pulmonic valve: Doppler: There was no evidence for stenosis. There was trivial regurgitation. Peak gradient (S): 6.5mm Hg. Tricuspid valve: Doppler: There was mild-moderate regurgitation. Pulmonary artery: Poorly visualized. Pulmonary systolic pressure was in the range of 50mm Hg to 60mm Hg. Right atrium: The atrium was mildly dilated. Pericardium: There was no pericardial effusion. Systemic veins: Inferior vena cava: Well visualized. The vessel was patent and normal in size. The respirophasic diameter changes were in the normal range (greater than or equal to 50%), consistent with normal central venous pressure. Baseline ECG: Normal sinus rhythm. Measurements Left ventricle Value Reference LV ID, ED, PLAX 4.7 cm 3.5 - 6.0 LV ID, ES, PLAX 2.6 cm 2.1 - 4.0 LV PW thickness, ED, PLAX 1.3 cm LV end-diastolic volume, 1-p A2C 131 ml LV ejection fraction, 1-p A2C 73 % LV end-diastolic volume, 1-p A4C 92 ml LV ejection fraction, 1-p A4C 66 % LV e', lateral 0.097 m/sec LV E/e', lateral 8 LV e', medial 0.077 m/sec LV E/e', medial 10 LV e', average 0.087 m/sec LV E/e', average 9 Ventricular septum Value Reference IVS thickness, ED, PLAX 1.1 cm LVOT Value Reference LVOT ID, A-P 2.0 cm LVOT area 3.3 cm^2 LVOT peak velocity, S 1.17 m/sec LVOT mean velocity, S 0.89 m/sec LVOT VTI, S 23.4 cm LVOT peak gradient, S 5.5 mm Hg LVOT mean gradient, S 3.5 mm Hg Stroke volume (SV), LVOT DP 77 ml Stroke index (SV/bsa), LVOT DP 32 ml/m^2 Aortic valve Value Reference Aortic valve peak velocity, S 1.7 m/sec Aortic valve mean velocity, S 1.17 m/sec Aortic valve VTI, S 37.0 cm Aortic mean gradient, S 6.3 mm Hg Aortic peak gradient, S 11.5 mm Hg VTI ratio, LVOT/AV 0.63 Aortic valve area, VTI 2.1 cm^2 Velocity ratio, peak, LVOT/AV 0.69 Aortic valve area, peak velocity 2.3 cm^2 Velocity ratio, mean, LVOT/AV 0.76 Aortic valve area, mean velocity 2.5 cm^2 Aortic valve area/bsa, mean velocity 1.1 cm^2/m^2 Aorta Value Reference Aortic root ID, ED 3.3 cm Left atrium Value Reference LA ID, A-P, ES 4.4 cm LA ID/bsa, A-P 1.8 cm/m^2 <=2.2 LA area, ES, A4C (H) 24.9 cm^2 8.8 - 23.4 LA area, ES, A2C 22 cm^2 LA volume/bsa, ES, 1-p A4C 38 ml/m^2 LA volume, ES, 2-p 88 ml LA volume/bsa, ES, 2-p 37 ml/m^2 LA/aortic root ratio 1.33 Mitral valve Value Reference Mitral E-wave peak velocity 0.78 m/sec Mitral A-wave peak velocity 0.62 m/sec Mitral deceleration time 207 ms 150 - 230 Mitral pressure half-time 60 ms Mitral peak gradient, D 2.4 mm Hg Mitral E/A ratio, peak 1.25 Mitral valve area, PHT, DP 3.7 cm^2 Tricuspid valve Value Reference Tricuspid regurg peak velocity 3.7 m/sec Tricuspid peak RV-RA gradient 53.3 mm Hg Right atrium Value Reference RA area, ES, A4C (H) 22.2 cm^2 8.3 - 19.5 Pulmonic valve Value Reference Pulmonic peak gradient, S 6.5 mm Hg Legend: (L) and (H) eric values outside specified reference range. I have personally reviewed the images and have reviewed and edited the reported findings. Electronically signed by Jefferson Huitron MD 04/27/2018 18:02
[2018-04-27] MEDS: methylPREDNISolone SUCC 125 MG VIAL 60 MG IVP (17:22)
[2018-04-27] MEDS: oxyCODONE 5 mg/Acetaminophen 325 mg TAB 1 TAB PO (17:22)
--- NOTE | 2018-04-27 17:59 | PHARADMIT ---
Admission Pharmacy Clinical Review copd exacerbation, treating CAP, flu positive Code Status Full Code Current Weight 121.9 kg Renally Cleared and Narrow Therapeutic Index Meds QTc Value / Action Taken QT meds: Azith, Venlafaxine, Abilify, Wellbutrin, Zofran QTC 452 BP Control, Fever BP 120/77, Afebrile, chronic pain 10 Electrolytes reviewed K+ 3.7, Mag 1.7 DVT Prophylaxis Lovenox 40mg Opiate Usage / Scheduled Bowel Regimen Ordered Percocet, MS IVP Plt/SCr for Heparin / Enoxaparin Plt 219 SCr 0.88 INR for Warfarin H/H stable, WBC/Bands H/H 16.3/48.2 WBC 8.95 Antibiotic appropriateness Azith/Rocephin Cultures and Sensitivities blood pending....chest Xray not a good read, ? Pneumonia Surgical ABX d/c within 24 hr DM control / Insulin Dosing Heart Failure (Check EF%) (ETSEE's, B-Block, Diuretics) Norvasc, Atenolol,Chlorthalidone, Lisinopril IV to PO Switch Home Meds Reviewed Wellbutrin XL 300mg Qam and Wellbutrin SR 100mg Qam double checked w/MD office Pt's own Pristiq, Pt's own Fenofibrate...nurse asked pt to bring in, has not arrived at this time Home Meds Not Ordered Metformin, Nystatin old Rx, Comments IV steroids, Mometasone substituted for home Flovent Echo today
[2018-04-27] MEDS: Nicotine 21 MG/24 HR PATCH TD (20:11)
[2018-04-28] VITALS (8 sets, daily range): BP systolic 118–138; BP diastolic 69–83; PULSE 68–79; RESP 2–22; TEMP 36.4–37.2; O2SAT 91–97
[2018-04-28] MEDS: Albuterol/Ipratropium 3 ML UPD VIAL UPD ×4 (00:36→20:26)
[2018-04-28] MEDS: methylPREDNISolone SUCC 125 MG VIAL 60 MG IVP ×3 (02:25→22:44)
[2018-04-28] MEDS: Normal Saline Flush 10 ML SYR IVP ×3 (02:25→22:44)
[2018-04-28] MEDS: AZITHROMYCIN 500 MG in Normal Saline 250 ML 250 MG IVPB (04:28)
[2018-04-28] MEDS: Enoxaparin 40 MG/0.4 ML SYR SC (06:27)
[2018-04-28 07:09] LABS: HCT 44.9 % (36.0-46.0); HGB 14.7 g/dL (12.0-15.5); Mean Corp. HGB Concentration 32.7 g/dL (32.0-36.0); Mean Corpuscular Hemoglobin 31.3 pg (27.0-33.0); Mean Corpuscular Volume 95.5 fL (80-95); Mean Platelet Volume 10.5 fL (8.0-11.0); Platelet Count 239 x1000/uL (130-400); RBC Distribution Width 13.6 % (11.7-14.6); White Blood Cell Count 9.95 k/cumm (4.4-10.8)
[2018-04-28 07:35] LABS: ALT 33 U/L (12-78); AST 27 U/L (15-37); Alkaline Phosphatase 79 U/L (46-116); Anion Gap 10.3 mmol/L (3-11); BUN 31 mg/dL (7-18); Bilirubin, Total 0.3 mg/dL (0.2-1.0); CO2 28.7 mmol/L (21.0-32.0); CREATININE 0.81 mg/dL (0.55-1.02); Chloride 98 mmol/L (98-107); Glucose 357 mg/dL (70-100); Potassium 3.8 mmol/L (3.5-5.1); Sodium 137 mmol/L (136-145); Total Protein 7.7 g/dL (6.4-8.2)
--- NOTE | 2018-04-28 08:10 | NUR.NOTE ---
Nursing Note: During med pass pt decided not to take the ritalin that was mixed in her cup of pills. She asked me to take that out because it kept her up the night before and she would like to follow her home schedule while at the hospital too. I only saw one ritalin in the cup and removed it, took it to nurses station and wasted it with charge nurse. The pt had order for 2 tabs of ritalin to equal her dose. I went back to room and asked pt if she swallowed it, crawled around on the floor looking for it, looked in her bed, looked through a full trash can piece by piece until empty. The second pill was never found. I reported this to charge nurse and I believe pt must have taken it with other pills before she realized she didn't want certain ones. Med was charted not given although it is unknown at this time if she took one capsule. The capsule I did find was wasted with charge nurse.
[2018-04-28] MEDS: Atenolol 50 MG TAB PO (08:19)
[2018-04-28] MEDS: Lisinopril 20 MG TAB PO (08:19)
[2018-04-28] MEDS: ARIPiprazole 5 MG TAB 10 MG PO (08:19)
[2018-04-28] MEDS: Norethindrone 5 MG TAB PO (08:19)
[2018-04-28] MEDS: Methylphenidate 10 MG TAB 20 MG PO (08:19)
[2018-04-28] MEDS: buPROPion-XL 150 MG TABCR 300 MG PO (08:20)
[2018-04-28] MEDS: Baclofen 10 MG TAB PO ×2 (08:20→20:27)
[2018-04-28] MEDS: Pantoprazole 40 MG TABCR PO (08:20)
[2018-04-28] MEDS: Chlorthalidone 25 MG TAB PO (08:20)
[2018-04-28] MEDS: buPROPion-CR 100 MG TABCR PO (08:20)
[2018-04-28] MEDS: Meloxicam 15 MG TAB PO (08:20)
[2018-04-28] MEDS: ROSUVASTATIN 20 MG TAB 40 MG PO (08:21)
[2018-04-28] MEDS: Oseltamivir 75 MG CAP PO ×2 (08:21→20:27)
[2018-04-28] MEDS: Gabapentin 300 MG CAP PO ×2 (08:21→20:27)
[2018-04-28] MEDS: amLODIPine 10 MG TAB PO (08:21)
[2018-04-28] MEDS: Insulin Aspart 300 UNITS/3 ML PEN SC ×3 (08:21→16:58)
--- NOTE | 2018-04-28 09:09 | PDOC.CMPRO ---
- If Service Date Differs Date of service: 04/28/18 Time of Service: 09:09 Care Management Progress Note S/O:Rosibel is sitting up in the chair she is alert and engaged. She continues to require oxygen. She is receiving IV antibiotics, steroids and continues to be monitored. No changes in status today. A: Rosibel is a 47 year old female admitted with Influenza, pneumonia with a history of COPD P:Rosibel will be discharged home when medically ready. She will be referred to Pulmonary Rehab at time of discharge .She will need a primary care appointment with primary care scheduled prior to discharge. CM provided advance directive forms to patient and will provide support in completing when she is ready.
[2018-04-28] MEDS: Magnesium Chloride 64 MG TABCR PO (09:18)
[2018-04-28] MEDS: Mometasone 220 MCG 14 DOSE INHALER 2 PUFF IH ×2 (09:25→20:39)
--- NOTE | 2018-04-28 14:44 | PGE_ITS ---
Date of Service Date of service: 04/28/18 Time of Service: 14:43 Assessment and Plan (1) COPD with acute exacerbation: Current visit: Yes Status: Acute Improving. Continue Ceftriaxone and azithromycin (day #2). Supplemental oxygen as needed. Change nebulizer treatment to PRN. Begin to taper steroids. Repeat labs in the morning. (2) Influenza A: Current visit: Yes Status: Acute Positive swab for influenza A. Continue Tamiflu for a total of 5 days. (3) Acute exacerbation of CHF (congestive heart failure): Current visit: Yes Status: Acute Echocardiogram shows LVEF of 65-70% with some parameters suggesting diastolic dysfunction, elevated pulmonary systolic pressure in the range of 50- 60 mm Hg. She received one dose of IV lasix yesterday with improvement in her respiratory status. Continue to monitor fluid status, daily weights, intake and output. (4) Diabetes mellitus: Current visit: Yes Status: Chronic With hyperglycemia in the setting of high dose steroids. Begin to taper steroids today. Increase to resistant Aspart scale. Obtain accurate medication list from PCP office (patient states she does not use insulin and has insulin on her home list). Continue to monitor blood sugars, adjust insulin as needed. (5) HELEN (obstructive sleep apnea): Current visit: Yes Status: Chronic She does not wear CPAP. Echo as above. (6) Tobacco abuse: Current visit: Yes Status: Acute Encourage smoking cessation. (7) DVT prophylaxis: Current visit: Yes Status: Acute Subcutaneous lovenox. (8) Discharge planning issues: Current visit: Yes Status: Acute She is a FULL CODE. This case was discussed with Dr. Garcia who is in agreement. Subjective Interval history since last seen: Rosibel is a 47-year-old female with a past medical history significant for COPD, current smoker, obstructive sleep apnea, congestive heart failure, diabetes who is currently being treated for an acute COPD exacerbation, influenza A and probable CHF exacerbation. She reports feeling much better today, she has no shortness of breath at rest, mild shortness of breath with exertion, she coughs occasionally, she does not feel wheezy. Nursing reports high blood glucose in the 3-400s. She remains on Ceftriaxone and azithromycin, day #2. She denies dizziness chest pain/pressure, she is eating and drinking and tolerating her diet, no nausea, vomiting or diarrhea. Exam Narrative Exam Narrative: General: She is sitting up in the chair, she is alert and oriented, no acute distress. HEENT: Normocephalic, atraumatic, pupils equal and round, mucous membranes moist. Neck: Supple, no JVD. Respiratory: Respirations are even and unlabored, lung sounds diminished with expiratory wheezes and prolonged expiratory phase. No rales. Cardiovascular: Heart has regular rate and rhythm, no murmur appreciated. GI: Normoactive bowel sounds throughout, abdomen soft, nontender on palpation. Extremities: Well perfused, +1 edema bilaterally, peripheral pulses palpable. Objective Objective Clinical Data: Abnormal lab results 04/28/18 04/28/18 Range/Units 06:50 06:50 MCV 95.5 H (80-95) fL BUN 31 H (7-18) mg/dL Glucose 357 H D (70-100) mg/dL Albumin 3.0 L (3.4-5.0) g/dL Vital Signs Temperature 36.5 C 04/28/18 11:50 Temperature Source Tympanic 04/28/18 11:50 Pulse 68 04/28/18 11:50 Pulse Rhythm Regular 04/28/18 08:58 Pulse 103 H 04/27/18 02:30 Respiratory Rate 20 04/28/18 11:50 Respiratory Effort 04/28/18 08:58 Respiratory Depth Normal 04/28/18 08:58 Respiratory Pattern Normal 04/28/18 08:58 Blood Pressure 118/82 04/28/18 11:50 Blood Pressure Mean 64 04/27/18 02:16 Blood Pressure Position Sitting 04/27/18 01:12 Pulse Oximetry 92 L 04/28/18 11:50 Oxygen Delivery Method Nasal Cannula 04/28/18 11:50 Oxygen Flow Rate 2 04/28/18 11:50 Pain Level 5 04/27/18 18:22 Comment 04/28/18 03:36 Intake & Output 04/27/18 04/28/18 04/28/18 23:59 11:59 23:59 Intake Total 1190 / 3321.28 940 / 1190 250 / 1190 Output Total 700 / 1250 1900 / 1900 Balance 490 / 2071.28 -960 / -710 250 / -710 Weight 123.2 kg Intake: IV 150 / 1561.28 250 / 250 Oral 1040 / 1760 690 / 940 250 / 940 Output: Urine 700 / 1250 1900 / 1900 Other: Urine Color Yellow Yellow Urine Appearance Clear Voiding Methods Toilet Toilet Laboratory Results WBC 9.95 k/cumm (4.4-10.8) 04/28/18 06:50 RBC 4.70 m/cumm (4.00-5.20) 04/28/18 06:50 Hgb 14.7 g/dL (12.0-15.5) 04/28/18 06:50 Hct 44.9 % (36.0-46.0) 04/28/18 06:50 MCV 95.5 fL (80-95) H 04/28/18 06:50 MCH 31.3 pg (27.0-33.0) 04/28/18 06:50 MCHC 32.7 g/dL (32.0-36.0) 04/28/18 06:50 RDW 13.6 % (11.7-14.6) 04/28/18 06:50 Plt Count 239 x1000/uL (130-400) 04/28/18 06:50 MPV 10.5 fL (8.0-11.0) 04/28/18 06:50 Immature Gran % 0.4 04/27/18 01:14 Neutrophils % 61.4 04/27/18 01:14 Lymphocytes % 24.1 04/27/18 01:14 Monocytes % 13.5 04/27/18 01:14 Eosinophils % 0.0 04/27/18 01:14 Basophils % 0.6 04/27/18 01:14 Absolute Neutrophils 5.49 k/cumm (1.2-6.7) 04/27/18 01:14 Absolute Lymphocytes 2.16 k/cumm (1.2-3.4) 04/27/18 01:14 Absolute Monocytes 1.21 k/cumm (0.11-0.7) H 04/27/18 01:14 Absolute Eosinophils 0.00 k/cumm (0.0-0.7) 04/27/18 01:14 Absolute Basophils 0.05 k/cumm (0.0-0.2) 04/27/18 01:14 Sodium 137 mmol/L (136-145) 04/28/18 06:50 Potassium 3.8 mmol/L (3.5-5.1) 04/28/18 06:50 Chloride 98 mmol/L (98-107) 04/28/18 06:50 Carbon Dioxide 28.7 mmol/L (21.0-32.0) 04/28/18 06:50 Anion Gap 10.3 mmol/L (3-11) 04/28/18 06:50 BUN 31 mg/dL (7-18) H 04/28/18 06:50 Creatinine 0.81 mg/dL (0.55-1.02) 04/28/18 06:50 Estimated GFR/1.73 m2 >= 60.00 (mL/min/1.73m2) 04/28/18 06:50 Glucose 357 mg/dL (70-100) H D 04/28/18 06:50 Calcium 10.0 mg/dL (8.5-10.1) 04/28/18 06:50 Magnesium 1.7 mg/dL (1.8-2.4) L 04/27/18 01:14 Total Bilirubin 0.3 mg/dL (0.2-1.0) 04/28/18 06:50 AST 27 U/L (15-37) 04/28/18 06:50 ALT 33 U/L (12-78) 04/28/18 06:50 Alkaline Phosphatase 79 U/L (46-116) 04/28/18 06:50 NT-Pro-B Natriuret Pep 982 pg/mL (-299) H 04/27/18 10:25 Total Protein 7.7 g/dL (6.4-8.2) 04/28/18 06:50 Albumin 3.0 g/dL (3.4-5.0) L 04/28/18 06:50 Lipase 61 U/L (73-393) L 04/27/18 01:14
--- NOTE | 2018-04-28 15:58 | W.INDIABCONS ---
Date of service: 04/28/18 Time of Service: 16:08 Diabetes Inpatient Consult DESCRIPTION/ASSESSMENT: Appreciate diabetes consult for Rosibel Dinh who is hospitalized with Influenza. No current A1c. BMI 50 Blood sugars this hospitalization 224-375 given resistant insulin correction. At home she uses 36u Glargine and Metformin. She is eating 24-68 grams carbohydrate today. Additionally she has Methylprednisolone tapered down to 60mg q 12 hours. She is not visited at this time. CNM who visits for her meals states she is aware of carbohydrates and orders well. INTERVENTION: It may benefit Ms. Dinh to at least receive her usual basal insulin dose of 36units Glargine. She may also benefit from insulin:carbohydrate at 1 unit covers 5 grams carbohydrate. She will likely need an increase in insulin to cover steroid influence which could be offered with an increase in basal insulin given her 24hour dosing of her steroid. PLAN: Suggest her basal insulin of 36 units with potential for increase secondary to 24hour steroid administration. Suggest insulin:carbohydrate at 1 unit covers 5 grams Will follow blood sugars. Will follow up for self management support. Time Spent in Nutritional Counseling and Treatment: 0 face to face
[2018-04-28] MEDS: oxyCODONE 5 mg/Acetaminophen 325 mg TAB 1 TAB PO ×2 (18:43→22:44)
[2018-04-29 03:30] VITALS: BP 177/76; PULSE 67; RESP 22; TEMP 36.9; O2SAT 92
[2018-04-29] MEDS: AZITHROMYCIN 500 MG in Normal Saline 250 ML 250 MG IVPB (04:12)
[2018-04-29] MEDS: Enoxaparin 40 MG/0.4 ML SYR SC (05:38)
[2018-04-29 07:15] VITALS: O2SAT 92
[2018-04-29 07:15] LABS: HCT 44.7 % (36.0-46.0); HGB 14.6 g/dL (12.0-15.5); Mean Corp. HGB Concentration 32.7 g/dL (32.0-36.0); Mean Corpuscular Hemoglobin 31.3 pg (27.0-33.0); Mean Corpuscular Volume 95.9 fL (80-95); Mean Platelet Volume 9.9 fL (8.0-11.0); Platelet Count 254 x1000/uL (130-400); RBC 4.66 m/cumm (4.00-5.20); RBC Distribution Width 13.5 % (11.7-14.6); White Blood Cell Count 12.52 k/cumm (4.4-10.8)
[2018-04-29] MEDS: Mometasone 220 MCG 14 DOSE INHALER 2 PUFF IH (07:16)
[2018-04-29 07:44] LABS: Anion Gap 10.2 mmol/L (3-11); BUN 33 mg/dL (7-18); CO2 28.8 mmol/L (21.0-32.0); CREATININE 0.79 mg/dL (0.55-1.02); Chloride 98 mmol/L (98-107); Glucose 367 mg/dL (70-100); Potassium 3.7 mmol/L (3.5-5.1); Sodium 137 mmol/L (136-145)
[2018-04-29 08:22] VITALS: BP 136/85; PULSE 81; RESP 20; TEMP 36.4; O2SAT 90
[2018-04-29] MEDS: Insulin Aspart 300 UNITS/3 ML PEN SC ×2 (08:38→12:16)
[2018-04-29] MEDS: Methylphenidate 10 MG TAB 20 MG PO (08:41)
[2018-04-29] MEDS: ARIPiprazole 5 MG TAB 10 MG PO (08:41)
[2018-04-29] MEDS: ROSUVASTATIN 20 MG TAB 40 MG PO (08:41)
[2018-04-29] MEDS: buPROPion-XL 150 MG TABCR 300 MG PO (08:41)
[2018-04-29] MEDS: buPROPion-CR 100 MG TABCR PO (08:41)
[2018-04-29] MEDS: Gabapentin 300 MG CAP PO (08:42)
[2018-04-29] MEDS: Oseltamivir 75 MG CAP PO (08:42)
[2018-04-29] MEDS: Lisinopril 20 MG TAB PO (08:42)
[2018-04-29] MEDS: Chlorthalidone 25 MG TAB PO (08:42)
[2018-04-29] MEDS: amLODIPine 10 MG TAB PO (08:42)
[2018-04-29] MEDS: Norethindrone 5 MG TAB PO (08:43)
[2018-04-29] MEDS: Pantoprazole 40 MG TABCR PO (08:43)
[2018-04-29] MEDS: Atenolol 50 MG TAB PO (08:43)
[2018-04-29] MEDS: Baclofen 10 MG TAB PO (08:43)
[2018-04-29] MEDS: Meloxicam 15 MG TAB PO (08:43)
[2018-04-29] MEDS: Magnesium Chloride 64 MG TABCR PO (09:36)
[2018-04-29] MEDS: methylPREDNISolone SUCC 125 MG VIAL 60 MG IVP (09:36)
[2018-04-29] MEDS: Normal Saline Flush 10 ML SYR IVP (09:37)
--- NOTE | 2018-04-29 09:57 | PDOC.CMDIS ---
LACE Index Scoring Tool - Questions: Length of Stay (in days): 2 Acuity (Admit via E.D.?): Yes Comorbidities: Diabetes w/o Complication, Chronic Pulmonary Disease E.D. Visits: 1 - Answers: Total Score: 9 Risk of Readmission: Low Risk Care Management Discharge Reason for Hospitalization: Influenza A, Pneumonia, COPD with a history of DM. Discharge Plan: Rosibel will be discharged home when medically ready. Anticipate she will have a new referral for Pulmonary Rehab, she had a pulse oximetry with RT who reported she will not require oxygen upon discharge. She will follow up with her PCP and plan of care as prescribed. She will transport home via private vehicle with family. Patient/Family Education Needs: Review discharge instructions, discuss Ask Me Three.
[2018-04-29] MEDS: oxyCODONE 5 mg/Acetaminophen 325 mg TAB 1 TAB PO (10:02)
[2018-04-29 10:10] VITALS: PULSE 79; PULSE 82; PULSE 98; RESP 20; RESP 24; O2SAT 90; O2SAT 94; O2SAT 96
--- NOTE | 2018-04-29 10:21 | DSE_ITS ---
Date of service: 04/29/18 Time of Service: 10:18 DS: Diagnosis Discharge Diagnosis (1) COPD with acute exacerbation: Status: Acute (2) Influenza A: Status: Acute (3) Acute exacerbation of CHF (congestive heart failure): Status: Acute (4) Diabetes mellitus: Status: Chronic (5) HELEN (obstructive sleep apnea): Status: Chronic (6) Tobacco abuse: Status: Acute Discharge Plan Disposition Patient Disposition: HOME Condition: Stable Discharge Details Reason For Visit: COPD EXACERBATION,HYPOXIA,INFLUENZA Admit Date/Time: 04/27/18 02:11 Admit Provider: Douglas Aquino Attending Provider: Douglas Aquino Primary Care Provider: Maria Del Carmen Nogueira Hospital Course Hospital Course: Rosibel Dinh is a very pleasant 47 year old female with a past medical history significant for COPD, active smoker, HELEN, and diabetes who presented to the ED on 04/27/18 with reports of increasing shortness of breath over the 2 days prior to her presentation. At the time of her presentation she was noted to be hypoxic with oxygen saturations in the 70s. She had a chest x-ray which was read as pulmonary edema, her influenza swab was positive for influenza A. Blood cultures yielded no growth. She was treated for COPD with Ceftriaxone, azithromycin, IV steroids, nebulizer treatments and supplemental oxygen. Given her chest x-ray findings of possible pulmonary edema, she was given one dose of IV lasix with good effect. She went on to have an echocardiogram which showed LVEF of 65-70% with some parameters suggesting diastolic dysfunction, elevated pulmonary systolic pressure in the range of 50-60 mm Hg. At the time of discharge, her respiratory status has improved. She appears euvolemic. She has PRN lasix at home. She may benefit from taking low dose lasix daily, she will discuss this with her PCP. She also has a history of HELEN, she does not use a CPAP, she would benefit from a sleep study and possibly CPAP/BiPAP. She is a current smoker, she is planning to quit smoking, she will use nicotine patches and follow up with her PCP. She will taper off of prednisone as an outpatient. She will complete her antibiotic course with oral antibiotics. She has mild leukocytosis, likely related to steroids, she will have repeat labs next week to ensure that her leukocytosis has resolved. She will complete influenza treatment as an outpatient. She underwent an exercise oximetry test today and maintained oxygen saturations in the 90s. She no longer requires oxygen and will be discharged without oxygen therapy. She will follow up with her PCP. She will resume her previous medications. Home Meds and New Rx's Prescriptions: New Nicotrol 10 mg Cartridge 10 mg Inhalation Q2H PRN PRNQty: 0 RF: 0 oseltamivir [Tamiflu] 75 mg Capsule 75 mg PO BID Qty: 5 RF: 0 azithromycin 250 mg tablet 250 mg PO DAILY Qty: 3 RF: 0 cefuroxime axetil 250 mg tablet 250 mg PO Q12H 10 Days Qty: 5 RF: 0 prednisone 10 mg tablet 10 mg PO DAILY Qty: 20 RF: 0 nicotine 14 mg/24 hr patch 24 hour 1 patch TD DAILY Qty: 21 RF: 0 Continued rosuvastatin [Crestor] 10 MG tablet 40 mg PO QHS RF: 0 desvenlafaxine succinate [Pristiq] 100 MG tablet extended release 24 hr 100 mg PO DAILY RF: 0 methylphenidate HCl [Ritalin] 20 MG tablet 20 mg PO BID RF: 0 lorazepam 1 MG tablet 1 mg PO PRN RF: 0 albuterol sulfate 8.5 GM HFA aerosol inhaler 1 - 2 puff Inhalation Q4H PRN RF: 0 norethindrone acetate 5 MG tablet 5 mg PO DAILY Qty: 90 RF: 4 polyethylene glycol 3350 [Miralax] 17 GM powder in packet 17 g PO DAILY PRN (Reason: Constipation) Qty: 255 RF: 0 chlorthalidone 25 MG tablet 12.5 mg PO DAILY RF: 0 Novolog U-100 Insulin aspart 100 UNIT/1 ML solution See Rx Instructions .ROUTE .COMPLEX RF: 0 gabapentin 300 MG capsule 600 mg PO BID RF: 0 atenolol 50 MG tablet 50 mg PO DAILY RF: 0 aripiprazole [Abilify] 10 MG tablet 10 mg PO DAILY RF: 0 nystatin 1 EACH powder 1 ea PO BID RF: 0 fenofibrate 160 MG tablet 160 mg PO DAILY RF: 0 Protonix [address] for susp in packet 40 mg PO DAILY RF: 0 PROVENTIL HFA 18 GM HFA.AER.AD 2 puff Inhalation Q4H PRN RF: 0 Flovent HFA 12 GM HFA aerosol inhaler 2 puff Inhalation BID Qty: 1 RF: 3 lisinopril 20 MG tablet 20 mg PO DAILY RF: 0 meloxicam 15 MG tablet 15 mg PO DAILY 30 Days Qty: 30 RF: 1 furosemide 40 mg Tablet 40 mg PO BID PRN (Reason: leg swelling) RF: 0 metformin 500 mg Tablet Extended Release 24 Hr 500 mg PO BID RF: 0 oxycodone-acetaminophen 10-325 mg Tablet 1 tab PO Q4H PRN (Reason: Pain) RF: 0 bupropion HCl [Wellbutrin SR] 100 mg Tablet Sustained-Release 12 Hr 100 mg PO DAILY RF: 0 glipizide 2.5 mg Tablet Extended Release 24hr 2.5 mg PO DAILY RF: 0 bupropion HCl [Wellbutrin XL] 300 mg Tablet Extended Release 24 Hr 300 mg PO DAILY RF: 0 Narcan 4 mg/actuation [place],Non-Aerosol 4 mg Intranasal PRN PRN (Reason: excessive sedation) RF: 0 Discharge Instructions Instructions: Influenza (DC), COPD (Chronic Obstructive Pulmonary Disease) (DC), Hypoxia (GEN) Additional Instructions: Take you antibiotics and tamiflu until they are gone. Taper steroids as follows: take 40mg (4 tabs) daily x2 days, then 30mg (3 tabs) x 2 days, 20 mg (2 tabs) x 2 days, then 10 mg (1 tablet) x2 days then stop. Follow up with your PCP as scheduled. Monitor your weight, if your weight increases, you have increased shortness of breath or increased edema, contact your PCP. Continue to use Lasix as needed. Continue your medications as previously prescribed. Take care! Stand Alone Forms: Nursing Discharge Form Referrals: Maria Del Carmen Nogueira PA [Primary Care Provider] - 05/11/18 9:45 am Activity:: Activity as Tolerated Equipment/Supplies:: No Equipment Needed Diet:: Carb counting and heart healthy diet. Exam Narrative Exam Narrative: General: She is sitting up in the chair, she is alert and oriented, no acute distress. HEENT: Normocephalic, atraumatic, pupils equal and round, mucous membranes moist. Neck: Supple, no JVD. Respiratory: Respirations are even and unlabored, lung sounds diminished, few faint expiratory wheezes noted- improved from yesterday. Cardiovascular: Heart has regular rate and rhythm, no murmur appreciated. GI: Normoactive bowel sounds throughout, abdomen soft, nontender on palpation. Extremities: Well perfused, +1 edema bilaterally, peripheral pulses palpable. DS: Data Vitals/I&O Vitals and I&O: Vital Signs Temperature 36.4 C L 04/29/18 08:22 Temperature Source Tympanic 04/29/18 08:22 Pulse 81 04/29/18 08:22 Pulse Rhythm Regular 04/29/18 08:24 Pulse 103 H 04/27/18 02:30 Respiratory Rate 20 04/29/18 08:22 Respiratory Effort Non-Labored 04/29/18 08:24 Respiratory Depth Normal 04/29/18 08:24 Respiratory Pattern Normal 04/29/18 08:24 Blood Pressure 136/85 04/29/18 08:22 Blood Pressure Mean 64 04/27/18 02:16 Blood Pressure Position Sitting 04/27/18 01:12 Pulse Oximetry 90 L 04/29/18 08:22 Oxygen Delivery Method Room Air 04/29/18 08:22 Oxygen Flow Rate 0 04/29/18 08:22 Pain Level 9 04/29/18 10:02 Comment 04/29/18 03:30 Intake & Output 04/28/18 04/28/18 04/29/18 11:59 23:59 11:59 Intake Total 990 / 1490 500 / 1490 810 / 810 Output Total 1900 / 1900 1800 / 1800 Balance -910 / -410 500 / -410 -990 / -990 Weight 123.2 kg 125 kg Intake: IV 300 / 310 10 / 310 260 / 260 Oral 690 / 1180 490 / 1180 550 / 550 Output: Urine 1900 / 1900 1800 / 1800 Other: Urine Color Yellow Yellow Urine Appearance Clear Clear Clear Urine Odor None Voiding Methods Toilet Toilet Toilet Completed studies during hospitalization [Text1]: 04/27/18: PORTABLE CHEST: Portable frontal view. Comparison 06/19/09. There is poor inspiration with crowding of the pulmonary vasculature. The cardiac size appears within normal limits. The pulmonary vasculature appears somewhat distinct. This may reflect pulmonary edema. No focal consolidating infiltrate is seen. There is blunting of the left costophrenic angle and a small left pleural effusion can not be excluded. IMPRESSION: 1. Suboptimal examination due to poor patient inspiration. 2. Question of mildly indistinct pulmonary vasculature, and pulmonary edema can not be excluded. Please correlate clinically. Transthoracic Echocardiography M-mode, complete 2D, complete spectral Doppler, and color Doppler *STUDY CONCLUSIONS* Summary: 1. Left ventricle: The cavity size was normal. Systolic function was hyperdynamic. The estimated ejection fraction was 65-70%. Some parameters suggest diastolic dysfunction. There was no evidence of elevated ventricular filling pressure by Doppler parameters. 2. Ventricular septum: Septal motion showed paradoxical motion. 3. Aortic valve: There was mild regurgitation. 4. Left atrium: The atrium was mildly dilated. 5. Right ventricle: The cavity size was mildly dilated. Systolic function was mildly reduced. 6. Right atrium: The atrium was mildly dilated. 7. Atrial septum: No defect or patent foramen ovale was identified. 8. Tricuspid valve: There was mild-moderate regurgitation. 9. Pulmonary arteries: Pulmonary systolic pressure was in the range of 50mm Hg to 60mm Hg. 10. Inferior vena cava: The vessel was patent and normal in size. The respirophasic diameter changes were in the normal range (greater than or equal to 50%), consistent with normal central venous pressure. Labs on day of discharge: Labs from last 24 hours 04/29/18 04/29/18 06:46 06:46 WBC 12.52 H RBC 4.66 Hgb 14.6 Hct 44.7 MCV 95.9 H MCH 31.3 MCHC 32.7 RDW 13.5 Plt Count 254 MPV 9.9 Sodium 137 Potassium 3.7 Chloride 98 Carbon Dioxide 28.8 Anion Gap 10.2 BUN 33 H Creatinine 0.79 Estimated GFR/1.73 m2 >= 60.00 Glucose 367 H Calcium 10.0 Preliminary micro results at discharge 04/27/18 01:35 Blood Culture - Preliminary Blood NO GROWTH 48 HOURS 04/27/18 01:18 Blood Culture - Preliminary Blood NO GROWTH 48 HOURS COUNTS INCLUDE 234 BEDS AT THE [facility] Medical History COPD (chronic obstructive pulmonary disease) Chronic atrophic candidosis Depression with anxiety Diabetes mellitus type 2 in obese HTN (hypertension) Hyperlipidemia Morbid obesity HELEN (obstructive sleep apnea) Smoker Surgical History Bilat partial saplinectomy Cholecystectomy (12/07/15) Ligation of fallopian tube Open Carpal Tunnel release Repair of umbilical hernia Tonsillectomy and adenoidectomy Social History Smoking and Tabacco status: Current every day
[2018-04-29 11:36] VITALS: BP 135/84; PULSE 64; RESP 20; TEMP 36.6; O2SAT 92
== END 2018-04-29 16:00 | disposition home or self-care (01) | DRG 191 ==
LOC: ER 02:26 → MS 06:13
PROVIDERS: Nurse Practitioner; Nurse Practitioner Family; Admitting Provider Family Medicine; Emergency Provider Emergency Medicine; PCP Physician Assistant Medical; Visit Provider Family Medicine
DX: J44.1 Chronic obstructive pulmonary disease with (acute) exacerbation (principal); Z68.43 Body mass index [BMI] 50.0-59.9, adult; J10.1 Influenza due to other identified influenza virus with other respiratory manifestations; I50.9 Heart failure, unspecified; E11.9 Type 2 diabetes mellitus without complications; G47.33 Obstructive sleep apnea (adult) (pediatric); F17.210 Nicotine dependence, cigarettes, uncomplicated; R09.02 Hypoxemia; Z79.4 Long term (current) use of insulin; I08.0 Rheumatic disorders of both mitral and aortic valves; I10 Essential (primary) hypertension; E66.01 Morbid (severe) obesity due to excess calories
CPT/HCPCS: 36415; 80048; 80053; 83690; 85027; 87040; 87449; 93005; 93306; 94640; 96365; 96375; 99223; 99232; 99233; 99239; 99285; J1650; 71045; 83735; 83880; 85025; 93010; G0378; J0456; J1940; J2930; J3490; J7613; J7620

== ENCOUNTER 2018-05-19 01:45 | Outpatient (CLI) | payer MEDICARE, MEDICAID, SELFPAY ==
--- NOTE | 2018-05-19 15:27 | DI.MAMMO_ITS ---
SYMPTOMS/DIAGNOSIS: SCREENING, [facility], Z00.00 MAMMOGRAM: Mammograms were interpreted according to the usual protocol including computer analysis with CAD system, tomosynthesis and C view imaging. The breast tissue is predominantly of fatty radiodensity. There is no evidence of a mass. There are no suspicious calcifications. No prior images were extant at the time of this interpretation. SUMMARY: No evidence of malignancy, Category I, yearly screening mammography is recommended. Breast density Category A. SA ASSESSMENT OF FINDINGS: Negative. Category 1. Patient will receive a letter notifying them of these results. BI-RAD category A. The breasts are almost entirely fatty.
== END 2018-05-19 02:05 ==
PROVIDERS: PCP Physician Assistant Medical; Visit Provider Physician Assistant Medical
DX: Z12.31 Encounter for screening mammogram for malignant neoplasm of breast (principal)
CPT/HCPCS: 77063; 77067

== ENCOUNTER → 2018-06-30 10:41 | Outpatient (BNVA) | payer MEDICARE, MEDICAID, SELFPAY | PROVIDERS: PCP Physician Assistant Medical; Referring Provider Physician Assistant Medical; Visit Provider Orthopaedic Surgery | DX: M17.11 Unilateral primary osteoarthritis, right knee (principal); M17.12 Unilateral primary osteoarthritis, left knee; M25.561 Pain in right knee; M25.562 Pain in left knee; E66.01 Morbid (severe) obesity due to excess calories; F17.210 Nicotine dependence, cigarettes, uncomplicated; R05 Cough | CPT/HCPCS: 20610; 99211; 99212; J7325 ==

== ENCOUNTER 2018-08-14 22:16 | Outpatient (REF) | payer MEDICARE, MEDICAID, SELFPAY | END 2018-08-14 22:36 | LOC: NCHCN 22:16 | PROVIDERS: PCP Physician Assistant Medical; Visit Provider Physician Assistant Medical | DX: R31.9 Hematuria, unspecified (principal) | CPT/HCPCS: 87086 ==

== ENCOUNTER 2018-11-09 13:37 | Outpatient (REF) | payer MEDICARE, MEDICAID, SELFPAY ==
[2018-11-09 21:45] LABS: ALT 17 U/L (14-59); AST 11 U/L (15-37); Alkaline Phosphatase 61 U/L (46-116); Anion Gap 10.1 mmol/L (3-11); BUN 14 mg/dL (7-18); Bilirubin, Total 0.7 mg/dL (0.2-1.0); CO2 28.9 mmol/L (21.0-32.0); CREATININE 0.69 mg/dL (0.55-1.02); Calculated LDL 68 mg/dL; Chloride 102 mmol/L (98-107); Cholesterol 135 mg/dL (50-200); Glucose 140 mg/dL (70-100); HDL Cholesterol 22 mg/dL (40-60); Magnesium 1.4 mg/dL (1.8-2.4); Potassium 4.3 mmol/L (3.5-5.1); Sodium 141 mmol/L (136-145); Total Protein 7.2 g/dL (6.4-8.2); Triglyceride 229 mg/dL (30-150)
== END 2018-11-09 13:57 ==
LOC: NCHCN 13:37
PROVIDERS: PCP Physician Assistant Medical; Visit Provider Physician Assistant Medical
DX: E78.5 Hyperlipidemia, unspecified (principal); E83.42 Hypomagnesemia; E11.9 Type 2 diabetes mellitus without complications
CPT/HCPCS: 80053; 80061; 83735

== ENCOUNTER 2018-11-15 18:49 | Emergency (ER) | payer MEDICARE, MEDICAID, SELFPAY ==
[2018-11-15] VITALS (50 sets, daily range): BP systolic 57–144; BP diastolic 21–102; PULSE 43–119; RESP 4–33; TEMP 37.2; O2SAT 89–96
[2018-11-15 19:47] LABS: BE (Venous) 1.7 mmol/L (-3-3); HCO3 (Venous) 28 mmol/L (22-28); O2 Sat (Venous) 61 % (70-80); TCO2 (Venous) 26 mmol/L (22-29); pCO2 (Venous) 55 mm/Hg (34-47); pH (Venous) 7.31 (7.32-7.43); pO2 (Venous) 30 mm/Hg (28-44)
[2018-11-15 19:54] LABS: HCT 41.4 % (36.0-46.0); HGB 13.7 g/dL (12.0-15.5); Mean Corp. HGB Concentration 33.1 g/dL (32.0-36.0); Mean Corpuscular Hemoglobin 32.2 pg (27.0-33.0); Mean Corpuscular Volume 97.2 fL (80-95); Mean Platelet Volume 10.9 fL (8.0-11.0); Platelet Count 156 x1000/uL (130-400); RBC 4.26 m/cumm (4.00-5.20); RBC Distribution Width 14.8 % (11.7-14.6); White Blood Cell Count 8.79 k/cumm (4.4-10.8)
--- NOTE | 2018-11-15 19:59 | ED.GENADUL_ITS ---
Discharge Plan Disposition Patient Disposition: [facility] Condition: Critical Discharge Details Chief Complaint: GenMedical Clinical Impression: Acute renal failure, Pyelonephritis, Acute hypotension Primary Care Provider: Maria Del Carmen Nogueira ED Provider: Johnathon Toledo Home Meds and New Rx's Prescriptions: No Action desvenlafaxine succinate [Pristiq] 100 MG tablet extended release 24 hr 100 mg PO DAILY RF: 0 methylphenidate HCl [Ritalin] 20 MG tablet 20 mg PO BID RF: 0 lorazepam 1 MG tablet 1 mg PO PRN RF: 0 albuterol sulfate 8.5 GM HFA aerosol inhaler 1 - 2 puff Inhalation Q4H PRN RF: 0 norethindrone acetate 5 MG tablet 5 mg PO DAILY Qty: 90 RF: 4 chlorthalidone 25 MG tablet 12.5 mg PO DAILY RF: 0 Novolog U-100 Insulin aspart 100 UNIT/1 ML solution See Rx Instructions .ROUTE .COMPLEX RF: 0 gabapentin 300 MG capsule 600 mg PO BID RF: 0 atenolol 50 MG tablet 50 mg PO DAILY RF: 0 aripiprazole [Abilify] 10 MG tablet 10 mg PO DAILY RF: 0 nystatin 1 EACH powder 1 ea PO BID RF: 0 fenofibrate 160 MG tablet 145 mg PO DAILY RF: 0 Protonix [address] for susp in packet 40 mg PO DAILY RF: 0 PROVENTIL HFA 18 GM HFA.AER.AD 2 puff Inhalation Q4H PRN RF: 0 Flovent HFA 12 GM HFA aerosol inhaler 2 puff Inhalation BID Qty: 1 RF: 3 lisinopril 20 MG tablet 20 mg PO DAILY RF: 0 metformin 500 mg Tablet Extended Release 24 Hr 500 mg PO BID RF: 0 oxycodone-acetaminophen 10-325 mg Tablet 1 tab PO Q4H PRN (Reason: Pain) RF: 0 bupropion HCl [Wellbutrin SR] 100 mg Tablet Sustained-Release 12 Hr 100 mg PO DAILY RF: 0 glipizide 2.5 mg Tablet Extended Release 24hr 2.5 mg PO DAILY RF: 0 bupropion HCl [Wellbutrin XL] 300 mg Tablet Extended Release 24 Hr 300 mg PO DAILY RF: 0 Narcan 4 mg/actuation [place],Non-Aerosol 4 mg Intranasal PRN PRN (Reason: excessive sedation) RF: 0 Nicotrol 10 mg Cartridge 10 mg Inhalation Q2H PRN PRNQty: 0 RF: 0 nicotine 14 mg/24 hr patch 24 hour 1 patch TD DAILY Qty: 21 RF: 0 methylphenidate HCl [Ritalin] 20 mg Tablet 30 mg PO DAILY RF: 0 Discharge Data Discharge Date/Time-TO BE ENTERED AT DEPARTURE: 11/16/18 00:20 Medical Decision Making Patient presenting the emergency department chief complaint of generalized malaise, night sweats, fever, left flank pain. Patient reports 4 days ago she had what she thought was a mild urinary tract infection that seem to resolve on its own. During this time she is also had a decrease in appetite and not been eating or drinking much. Over the past 24 hours she has noted high blood sugars ranging in the 500s which is abnormal for her. Patient did take some insulin prior to coming given that she is not feeling well coming to the emergency department. Patient does have COPD and states minimal change in cough and breathing. She does report needing nightly oxygen. Physical exam is unremarkable and nondiagnostic, dry mucosa, and beyond some diffuse wheezing heard in all lung hernandez. Plan to check labs, chest x-ray, urinalysis. Pending results patient given IV fluids Review of CBC shows no leukocytosis, VBG does show the patient is slightly acidotic, CMP shows both low sodium and chloride, elevated anion gap of 12.9, BUN of 56 and creatinine of 4.24, glucose of 228, mildly elevated AST and both protein and albumin are low. Given drastic change in patient's BUN and creatinine with low intake there is concern for acute renal injury. Given the patient stated flank pain and urinary tract symptoms there is consideration of pyelonephritis versus infected kidney stone so plan to do CT imaging. Did speak with patient further and she did state approximately 1 week ago she had labs done which were reviewed and showed normal creatinine, at that time her primary care provider told her to take some doses of mag citrate which made her feel ill so she stopped taking it. Afterwards is when she developed the urinary tract infection and generalized malaise symptoms. Plan to check magnesium. Review of chest x-ray shows no acute findings, CT shows prominence to the left intrarenal collection system without specific obstructing process noted. Radiologist notes possible stone passage but no identified stone. Manual blood pressure was checked and patient still has soft pressure with pressure reading of 80/59 but patient is asymptomatic, continues to be afebrile, and stable in appearance. Plan to hold off on pressures. staffing administrator was able to establish catheter and very minimal urine output is noted with staffing administrator noticing a lot of pus. Due to this and initial symptoms concerning for UTI and pyelonephritis patient started on Levaquin. Given that patient has acute renal injury, concern for pyelonephritis, and oliguria for 24 hours I do feel there is concern that patient may need dialysis. Plan to consult with [facility] for admission of patient. After 2 L of normal saline, 500 mL's of LR was started. Patient reassessed and helped staffing administrator establish second IV and with reassessment patient was noted to be more tachypneic and continued downward trend of hypotension. With last pressure of 62/38. Patient had multiple pressures 60s over 40s. [facility] was re-paged to speak with equipment cleaner and consideration of pressors. Plan to do portable chest x-ray to reestablish for any signs of fluid overload. Spoke with [facility] equipment cleaner Dr. Dobbins and Dr Wells. They recommended transfer to their facility and starting Levophed. Levophed was ordered to start at 5 mcg/min and titrate as needed. Patient agreed with transfer and arrangements were made for her to be transferred. HPI General Mode of arrival: ambulatory . Date/Time Provider Initiated Documentation: 11/15/18 18:56 . Limitations to Documentation: no limitations . Information obtained by: patient, family and RN notes reviewed . History of Present Illness 48 year old F presents to the emergency department with the chief complaint of Generalized malaise, fever, urinary tract infection, Quality is described as other (Denies pain or discomfort), Patient started experiencing this day(s) (4) and it has been constant. No relieving factors improve symptom(s), Patient did receive the following treatments prior to ar rival, other (insulin) Related Data Home Medications Medication Instructions Recorded Confirmed albuterol sulfate 1 - 2 puff INHALATION Q4H PRN 03/21/14 11/15/18 inhaler desvenlafaxine succinate [Pristiq] 100 mg PO DAILY tab-cap 03/21/14 11/15/18 lorazepam 1 mg PO PRN tab-cap 03/21/14 11/15/18 methylphenidate HCl [Ritalin] 20 mg PO BID tab-cap 03/21/14 11/15/18 norethindrone acetate 5 mg PO DAILY #90 tab 05/22/16 11/15/18 Flovent HFA 2 puff INHALATION BID #1 inhaler 04/22/17 11/15/18 Novolog U-100 Insulin aspart See Rx Instructions .ROUTE .COMPLEX 04/22/17 11/15/18 Protonix 40 mg PO DAILY 04/22/17 11/15/18 Proventil Hfa 2 puff INHALATION Q4H PRN inhaler 04/22/17 11/15/18 aripiprazole [Abilify] 10 mg PO DAILY tab-cap 04/22/17 11/15/18 atenolol 50 mg PO DAILY tab-cap 04/22/17 11/15/18 chlorthalidone 12.5 mg PO DAILY tab-cap 04/22/17 11/15/18 fenofibrate 145 mg PO DAILY tab-cap 04/22/17 11/15/18 gabapentin 600 mg PO BID 04/22/17 11/15/18 nystatin 1 ea PO BID script 04/22/17 11/15/18 lisinopril 20 mg PO DAILY tab-cap 04/23/17 11/15/18 Narcan 4 mg INTRANASAL PRN PRN 04/29/18 11/15/18 bupropion HCl [Wellbutrin SR] 100 mg PO DAILY 04/29/18 11/15/18 bupropion HCl [Wellbutrin XL] 300 mg PO DAILY 04/29/18 11/15/18 glipizide 2.5 mg PO DAILY 04/29/18 11/15/18 metformin 500 mg PO BID 04/29/18 11/15/18 nicotine 1 patch TD DAILY #21 each 04/29/18 11/15/18 nicotine [Nicotrol] 10 mg INHALATION Q2H PRN PRN #0 ea 04/29/18 11/15/18 oxycodone-acetaminophen 1 tab PO Q4H PRN 04/29/18 11/15/18 methylphenidate HCl [Ritalin] 30 mg PO DAILY 11/15/18 11/15/18 Previous Rx's Medication Instructions Recorded nicotine 1 patch TD DAILY #21 each 04/29/18 nicotine [Nicotrol] 10 mg INHALATION Q2H PRN PRN #0 ea 04/29/18 Allergies Allergy/AdvReac Type Severity Reaction Status Date / Time amoxicillin Allergy Skin Rash Unverified 11/15/18 19:08 Sulfa (Sulfonamide Allergy Unverified 11/15/18 19:08 Antibiotics) Antiobiotics AdvReac Intermediate Rash,vomitt Uncoded 11/15/18 19:08 ing General Stated Complaint: GenMedical HEATHER: 2 Review of Systems Constitutional Constitutional: Denies body ache(s), Reports chills, Denies fever(s), Reports malaise, Reports night sweats, Reports poor appetite and Denies weakness Cardiovascular Cardiovascular: Denies chest pain Respiratory Respiratory: Denies chest congestion, Reports cough and Denies excessive phlegm production Gastrointestinal Gastrointestinal: Denies abdominal pain, Denies nausea and Denies vomiting Genitourinary Genitourinary: Reports as per HPI, Denies hematuria, Reports dysuria, Reports flank pain (left) and Denies urinary incontinence Neurologic Neurologic: Denies confusion and Denies weakness Psychiatric Psychiatric: Denies confusion [facility] Medical History Chronic atrophic candidosis COPD (chronic obstructive pulmonary disease) Depression with anxiety Diabetes mellitus type 2 in obese HTN (hypertension) Hyperlipidemia Morbid obesity HELEN (obstructive sleep apnea) Smoker Surgical History Bilat partial saplinectomy Cholecystectomy (12/07/15) LAPAROSCOPIC WITH INTRAOPERATIVE CHOLANGIOGRAM/[facility] Ligation of fallopian tube Open Carpal Tunnel release Repair of umbilical hernia Tonsillectomy and adenoidectomy Social History Smoking/Tobacco Use Status: Current every day Tobacco Type: cigarettes Alcohol Intake: never Substance use type: opiates and painkillers Do you feel safe at home: Yes Do you feel safe in your relationship?: Yes Exam Const General: cooperative and no acute distress Orientation: alert, awake and oriented x3 Resp Effort & Inspection: normal respiratory effort, able to speak in complete sentences, no cough and not labored Auscultation: wheezes expiratory wheezes and scattered wheezes Cardio Rate: regular rate Rhythm: regular rhythm Heart Sounds: S1 normal and S2 normal GI Inspection: obesity Palpation: not firm, no guarding, not rigid and nontender Auscultation: normal bowel sounds Back/Spine/Pelvis Back: no CVA tenderness Neuro General: alert, awake and oriented x3 Extrem General: normal capillary refill Course Vital Signs Vital signs: Vital Signs Temperature 37.2 C 11/15/18 19:03 Pulse 93 H 11/15/18 19:03 Respiratory Rate 24 11/15/18 19:03 Blood Pressure 91/77 L 11/15/18 19:03 Pulse Oximetry 91 L 11/15/18 19:03 Temperature 37.2 C 11/15/18 19:03 Temperature Source Temporal Artery Scan 11/15/18 19:03 Pulse 93 H 11/15/18 19:03 Respiratory Rate 28 H 11/15/18 19:52 Respiratory Effort 11/15/18 19:55 Respiratory Depth Shallow 11/15/18 19:52 Respiratory Pattern Tachypnea 11/15/18 19:52 Blood Pressure 91/77 L 11/15/18 19:03 Blood Pressure Position Supine 11/15/18 19:03 Pulse Oximetry 91 L 11/15/18 19:03 Oxygen Delivery Method Nasal Cannula 11/15/18 19:03 Oxygen Flow Rate 2 11/15/18 19:03 Pain Level 0 11/15/18 19:03 Lab/Test Results Lab/Test Results: 11/15/18 19:38 Blood Blood Culture - Pending 11/15/18 19:38 Blood Blood Culture - Pending Laboratory Tests Range/Units 11/15/18 11/15/18 19:40 19:40 WBC (4.4-10.8) k/cumm 8.79 RBC (4.00-5.20) m/cumm 4.26 Hgb (12.0-15.5) g/dL 13.7 Hct (36.0-46.0) % 41.4 MCV (80-95) fL 97.2 H MCH (27.0-33.0) pg 32.2 MCHC (32.0-36.0) g/dL 33.1 RDW (11.7-14.6) % 14.8 H Plt Count (130-400) x1000/uL 156 MPV (8.0-11.0) fL 10.9 VBG pH (7.32-7.43) 7.31 L VBG pCO2 (34-47) mm/Hg 55 H VBG pO2 (28-44) mm/Hg 30 VBG HCO3 (22-28) mmol/L 28 VBG Total CO2 (22-29) mmol/L 26 VBG O2 Saturation (70-80) % 61 L VBG Base Excess (-3-3) mmol/L 1.7 Critical Care Time Critical Care Time Critical Care Time: Yes Total Critical Care Time: 45 Attestation: At least 45 minutes of my time was spent reviewing patient's labs, speaking with consultants, and treating patient's critical life-threatening condition.
[2018-11-15 20:11] LABS: ALT 33 U/L (14-59); AST 61 U/L (15-37); Albumin 2.6 g/dL (3.4-5.0); Alkaline Phosphatase 106 U/L (46-116); Anion Gap 12.9 mmol/L (3-11); BUN 56 mg/dL (7-18); Bilirubin, Total 0.7 mg/dL (0.2-1.0); CO2 27.1 mmol/L (21.0-32.0); Calcium 8.8 mg/dL (8.5-10.1); Chloride 94 mmol/L (98-107); Estimated GFR 11.13 (mL/min/1.73m2); Glucose 228 mg/dL (70-100); Potassium 3.9 mmol/L (3.5-5.1); Sodium 134 mmol/L (136-145); Total Protein 6.2 g/dL (6.4-8.2)
[2018-11-15] MEDS: Albuterol/Ipratropium 3 ML UPD VIAL UPD (20:12)
[2018-11-15] MEDS: Normal Saline 1,000 ML 1000 ML IV ×2 (20:12→20:36)
[2018-11-15 20:13] LABS: CREATININE 4.24 mg/dL (0.55-1.02)
[2018-11-15 20:47] LABS: Absolute Lymphocyte Count 0.62 k/cumm (1.2-3.4); Absolute Monocyte Count 0.79 k/cumm (0.11-0.7); Absolute Neutrophil Count 7.38 k/cumm (1.2-6.7)
[2018-11-15 20:48] LABS: Diff Comment Manual Differential; RBC Morphology Normal
--- NOTE | 2018-11-15 20:50 | DI.CT_ITS ---
EXAM: CT RENAL COLIC WO CLINICAL HISTORY: left flank pain, decreased renal function. TECHNIQUE: Imaging Protocol: Axial computed tomography images with coronal and sagittal reformatted images were created and reviewed. CONTRAST MATERIAL: Intravenous: Omnipaque 350 Contrast volume:0 mL contrast route:IV - Oral: No COMPARISON: ABD PELVIS WITH CONTRAST from 05/22/2016 FINDINGS: ABDOMEN: Lung Bases: There is scarring or atelectasis in the lung bases. Liver: Normal density. No measurable mass. There is hepatomegaly. Gallbladder and biliary tract: The patient is status post cholecystectomy. No biliary ductal dilatat ion is present. Pancreas: Normal density, no abnormal calcifications or inflammatory process. Spleen: Normal. Kidneys: Normal size, contour and axis. There are small bilateral nonobstructing stones in the kidney s. No ureterolithiasis is seen. There is mild dilatation of the left renal collecting system. Ther e is mild stranding around the left ureter. This may represent a recently passed stone. An inflamma tory process cannot be excluded. No masses seen. Adrenal glands: No masses seen. Abdominal Aorta: There is atherosclerosis of the abdominal aorta. No aneurysmal dilatation is presen t. No significant abdominal or pelvic adenopathy is present. PELVIS: Bladder: Symmetric distention, no gross wall thickening. No evidence of a bladder stone is present. An intrauterine device is seen with in the uterus Bowel: No obstruction or bowel wall thickening. The appendix is normal in size without evidence of ad jacent mesenteric fat stranding or adjacent fluid collection. Peritoneal cavity: No ascites, collection or mesenteric inflammatory response. Bones: Within normal limits. There are postsurgical changes of a prior mesh hernia repair in the anterior abdominal wall. IMPRESSION: No evidence of an acute abdominal or pelvic process. DATA REPOSITORY: All CT scans at this facility are submitted to the National Radiology Data Registry (NRDR) Dose Index Registry (DIR) with the [employer] ([employer]). RADIATION OPTIMIZATION: All CT scans at this facility use at least one of these dose optimization te chniques: automated exposure control; mA and/or kV adjustment per patient size (includes targeted exa ms where dose is matched to clinical indication); or iterative reconstruction.
--- NOTE | 2018-11-15 20:50 | DI.RAD_ITS ---
EXAM: XR CHEST 2V PA LATERAL CLINICAL HISTORY: cough. TECHNIQUE: 2D digital imaging was performed. COMPARISON: XR PORTABLE CHEST AP from 04/27/2018 FINDINGS: LUNGS: Atelectatic or scarring changes are seen in the left mid lung. No focal consolidating infiltr ates are present. No pleural effusion or pneumothorax is identified. HEART: Normal. MEDIASTINUM: Pulmonary vasculature appears stable and within normal limits. OTHER FINDINGS:There is a right convex scoliotic curvature of the spine. Degenerative changes are se en in the spine. IMPRESSION: Linear markings in the left mid lung which may reflect atelectasis or scarring. No focal consolidati ng infiltrates are present.
[2018-11-15 21:33] LABS: Lactate 1.5 mmol/L (0.6-1.4)
--- NOTE | 2018-11-15 21:38 | DI.VRAD_ITS ---
PROCEDURE INFORMATION: Exam: XR Chest, 2 Views Exam date and time: 11/15/2018 8:51 PM Clinical history: 48 years old, female; Patient HX: Copd, cough TECHNIQUE: Imaging protocol: XR of the chest Views: 2 views. COMPARISON: SC XR PORTABLE CHEST AP 04/27/2018 1:14 AM FINDINGS: The lung hernandez are relatively clear bilaterally. No focal pulmonary consolidation is present. The cardiac silhouette is within normal limits. The costophrenic angles are sharp. The bony structures appear unremarkable. IMPRESSION: No evidence of acute cardiopulmonary disease. Dictated and Authenticated by: Brannon Burroughs MD. Ordering:KATRINA Diego MD
--- NOTE | 2018-11-15 21:41 | DI.VRAD_ITS ---
PROCEDURE INFORMATION: Exam: CT Abdomen and pelvis without contrast Exam date and time: 11/15/2018 8:23 PM Clinical history: 48 years old, female; Pain; Other: Left flank; Prior surgery; Surgery date: 6+ months; Surgery type: Cholecystectomy. Hernia repair, tubal ligation; Additional info: L flank pain and decreased renal function TECHNIQUE: Imaging protocol: Computed tomography of the abdomen and pelvis without contrast. Radiation optimization: All CT scans at this facility use at least one of these dose optimization techniques: automated exposure control; mA and/or kV adjustment per patient size (includes targeted exams where dose is matched to clinical indication); or iterative reconstruction. COMPARISON: CT ABD PELVIS WITH CONTRAST 05/22/2016 8:24 AM FINDINGS: Basilar interstitial lung scarring and/or atelectasis. Prior cholecystectomy. Minimal prominence to the left intrarenal collecting system without evidence of a specific obstructing process. This may represent recent stone passage however no stone is noted within the urinary bladder. Prior anterior abdominal wall hernia repair with a mesh. No focal inflammatory process. No significant free fluid. No evidence of bowel obstruction. Appendix appears normal. Intrauterine device within the uterus. IMPRESSION: No specific etiology identified for the patient's symptoms. See above regarding the left kidney. Dictated and Authenticated by: Brannon Burroughs MD. Ordering:KATRINA Diego MD
[2018-11-15 21:43] LABS: Magnesium 1.8 mg/dL (1.8-2.4)
[2018-11-15 21:59] LABS: Bilirubin Moderate (Negative); Blood Large (Negative); Clarity Turbid (Clear); Glucose Negative (Negative); Ketones Trace mg/dL (Negative); Leukocyte Esterase Large (Negative); Nitrite Negative (Negative)
[2018-11-15 22:15] LABS: C & S Indicated? Yes; WBC >50 HPF (0-5)
[2018-11-15] MEDS: Lactated Ringers 500 ML IV (22:45)
[2018-11-15] MEDS: levoFLOXacin 750 MG/150 ML BAG 100 MG IVPB (22:45)
--- NOTE | 2018-11-15 22:55 | DI.RAD_ITS ---
EXAM: XR PORTABLE CHEST AP CLINICAL HISTORY: Shortness of breath. TECHNIQUE: 2D digital imaging was performed. COMPARISON: XR CHEST 2V PA LATERAL from 11/15/2018 FINDINGS: LUNGS: There is unchanged scarring or atelectasis in the left mid lung. No acute consolidating infil trates are present. No pleural effusion or pneumothorax is identified. HEART: Cardiac silhouette appears stable. The pulmonary vasculature is stable and within normal limi ts. MEDIASTINUM: Normal. OTHER FINDINGS: None. IMPRESSION: No acute pulmonary findings.
--- NOTE | 2018-11-15 23:21 | DI.VRAD_ITS ---
PROCEDURE INFORMATION: Exam: XR Chest, 1 View Exam date and time: 11/15/2018 10:58 PM Clinical history: 48 years old, female; Shortness of breath; Patient HX: Increasing SOB TECHNIQUE: Imaging protocol: XR of the chest Views: 1 view. COMPARISON: CR XR CHEST 2V PA LATERAL 11/15/2018 8:48 PM FINDINGS: Lungs: Unremarkable. No consolidation. Pleural space: Unremarkable. No pleural effusion. No pneumothorax. Heart/Mediastinum: Unremarkable. No cardiomegaly. Bones/joints: Unremarkable. IMPRESSION: No acute findings. Dictated and Authenticated by: Jefferson Catalan MD. Ordering:KATRINA Diego MD
[2018-11-16] VITALS: BP 91/49; PULSE 80; PULSE 83; RESP 31; O2SAT 93
--- NOTE | 2018-11-16 00:02 | NUR.NOTE ---
Nursing Note: left groin area reddened and moist, painful with moving
[2018-11-16 00:43] VITALS: BP 91/49; PULSE 80; RESP 31; O2SAT 93
== END 2018-11-16 00:20 | disposition short-term general hospital (02) ==
PROVIDERS: Emergency Provider Nurse Practitioner Family; PCP Physician Assistant Medical
DX: N17.9 Acute kidney failure, unspecified (principal); N10 Acute pyelonephritis; I95.9 Hypotension, unspecified; B96.20 Unspecified Escherichia coli [E. coli] as the cause of diseases classified elsewhere; J44.9 Chronic obstructive pulmonary disease, unspecified; I10 Essential (primary) hypertension; E11.9 Type 2 diabetes mellitus without complications; Z79.4 Long term (current) use of insulin; F17.210 Nicotine dependence, cigarettes, uncomplicated
CPT/HCPCS: 36415; 36416; 51702; 80053; 82805; 82962; 87040; 87077; 94640; 96361; 96365; 99285; 71045; 71046; 74176; 81003; 81015; 83605; 83735; 85025; 87086; 87186; 99284; J1956; J7620

== ENCOUNTER 2018-11-24 22:05 | Outpatient (REF) | payer MEDICARE, MEDICAID, SELFPAY ==
[2018-11-24 21:39] LABS: ALT 39 U/L (14-59); AST 21 U/L (15-37); Albumin 2.9 g/dL (3.4-5.0); Alkaline Phosphatase 91 U/L (46-116); Anion Gap 11.1 mmol/L (3-11); BUN 18 mg/dL (7-18); Bilirubin, Total 0.4 mg/dL (0.2-1.0); CO2 26.9 mmol/L (21.0-32.0); CREATININE 1.12 mg/dL (0.55-1.02); Chloride 104 mmol/L (98-107); Estimated GFR 51.71 (mL/min/1.73m2); Glucose 188 mg/dL (70-100); Potassium 4.3 mmol/L (3.5-5.1); Sodium 142 mmol/L (136-145); Total Protein 7.2 g/dL (6.4-8.2)
== END 2018-11-24 22:25 ==
LOC: NCHCN 22:05
PROVIDERS: PCP Physician Assistant Medical; Visit Provider Physician Assistant Medical
DX: N17.9 Acute kidney failure, unspecified (principal)
CPT/HCPCS: 80053

== ENCOUNTER 2018-12-18 12:08 | Outpatient (REF) | payer MEDICARE, MEDICAID, SELFPAY ==
[2018-12-18 19:21] LABS: BUN 11 mg/dL (7-18); CREATININE 0.92 mg/dL (0.55-1.02); Chloride 106 mmol/L (98-107); Glucose 121 mg/dL (70-100); Potassium 4.3 mmol/L (3.5-5.1); Sodium 143 mmol/L (136-145)
== END 2018-12-18 12:28 ==
LOC: NCHCN 12:08
PROVIDERS: PCP Physician Assistant Medical; Visit Provider Physician Assistant Medical
DX: N17.9 Acute kidney failure, unspecified (principal); I10 Essential (primary) hypertension; R82.79 Other abnormal findings on microbiological examination of urine
CPT/HCPCS: 80048; 87086

== ENCOUNTER 2019-01-11 17:23 | Emergency (ER) | payer MEDICARE, MEDICAID, SELFPAY ==
[2019-01-11 17:25] VITALS: BP 182/89; PULSE 81; RESP 22; TEMP 36.6; O2SAT 93
--- NOTE | 2019-01-11 17:48 | ED.GENADUL_ITS ---
Discharge Plan Disposition Patient Disposition: HOME Condition: Improving Discharge Details Chief Complaint: Chest Pain Clinical Impression: Gastritis Primary Care Provider: Maria Del Carmen Nogueira ED Provider: Edgard Cooper Home Meds and New Rx's Prescriptions: New sucralfate [Carafate] 1 gram tablet 1 gm PO BID Qty: 20 RF: 0 Continued desvenlafaxine succinate [Pristiq] 100 MG tablet extended release 24 hr 100 mg PO DAILY RF: 0 albuterol sulfate 8.5 GM HFA aerosol inhaler 1 - 2 puff Inhalation Q4H PRN RF: 0 norethindrone acetate 5 MG tablet 5 mg PO DAILY Qty: 90 RF: 4 gabapentin 300 MG capsule 300 mg PO DAILY RF: 0 atenolol 50 MG tablet 50 mg PO DAILY RF: 0 aripiprazole [Abilify] 10 MG tablet 10 mg PO DAILY RF: 0 nystatin 1 EACH powder 1 ea PO BID RF: 0 fenofibrate 160 MG tablet 145 mg PO DAILY RF: 0 Proton[address] for susp in packet 40 mg PO DAILY RF: 0 PROVENTIL HFA 18 GM HFA.AER.AD 2 puff Inhalation Q4H PRN RF: 0 Flovent HFA 12 GM HFA aerosol inhaler 2 puff Inhalation BID Qty: 1 RF: 3 lisinopril 20 MG tablet 40 mg PO DAILY RF: 0 oxycodone-acetaminophen 10-325 mg Tablet 1 tab PO Q4H PRN (Reason: Pain) RF: 0 glipizide 2.5 mg Tablet Extended Release 24hr 2.5 mg PO BID RF: 0 bupropion HCl [Wellbutrin XL] 300 mg Tablet Extended Release 24 Hr 200 mg PO DAILY RF: 0 Narcan 4 mg/actuation [place],Non-Aerosol 4 mg Intranasal PRN PRN (Reason: excessive sedation) RF: 0 Nicotrol 10 mg Cartridge 10 mg Inhalation Q2H PRN PRNQty: 0 RF: 0 nicotine 14 mg/24 hr patch 24 hour 1 patch TD DAILY Qty: 21 RF: 0 methylphenidate HCl [Ritalin] 20 mg Tablet 20 mg PO BID RF: 0 Discharge Instructions Instructions: Gastritis (ED) Additional Instructions: Please add Carafate to your medication regime for the next 7 to 10 days time. [place] diet. Continue all regular medications. Please follow-up in clinic with Jero if not improved in 1 week's time. Return to the emergency department for fever, difficulty breathing, chest pain, or any other acute concern. Medical Decision Making 48-year-old female with history of recent transfer to [facility] for acute renal failure with pyelonephritis, who was taken off with a number of antihypertensives, and restarted back on lisinopril. Presents for intermittent episodes of burning epigastric pain over days time that were associated with a note of elevated blood pressure at home tonight. She denies chest pain, headache, syncope or neurologic changes. She is been eating, drinking, and reports normal urination. She arrives with blood pressure 182/89, otherwise unremarkable vital signs and a reassuring exam. Differential diagnosis includes gastritis related to recent physical and subsequent emotional distress, must exclude pancreatitis, acute coronary syndrome. Patient given Carafate, screening laboratories obtained and patient underwent screening EKG. Laboratories including troponin are reassuring and unremarkable. Given that she has had symptoms ongoing for days time I do not feel repeat troponin is indicated. Most consistent with some stress-induced gastritis on top of her normal GERD that is been controlled with Protonix. I will add Carafate. She is stable and improving. Blood pressure improving. She will follow-up in clinic with Ms. Nogueira for recheck. Return precautions to the ER were discussed prior to discharge. Lab Data Lab results reviewed: Yes I reviewed the patient's lab results. Labs: Laboratory Results - last 24 hr 01/11/19 01/11/19 17:59 17:59 WBC 9.91 RBC 4.70 Hgb 14.7 Hct 44.5 MCV 94.7 MCH 31.3 MCHC 33.0 RDW 14.9 H Plt Count 250 MPV 9.3 Immature Gran % 0.4 Neutrophils % 57.9 Lymphocytes % 33.0 Monocytes % 8.4 Eosinophils % 0.1 Basophils % 0.2 Absolute Neutrophils 5.74 Absolute Lymphocytes 3.27 Absolute Monocytes 0.83 H Absolute Eosinophils 0.01 Absolute Basophils 0.02 Sodium 140 Potassium 3.7 Chloride 105 Carbon Dioxide 25.2 Anion Gap 9.8 BUN 13 Creatinine 0.76 Estimated GFR/1.73 m2 >= 60.00 Glucose 85 Calcium 9.9 Magnesium 1.6 L Total Bilirubin 0.4 AST 11 L ALT 13 L Alkaline Phosphatase 52 Troponin I < 0.05 Total Protein 7.9 Albumin 3.7 Lipase 334 ECG Data Attestation: I personally reviewed and interpreted this ECG (s) as follows: Interpretation: Normal sinus rhythm, the rate is 83, the QRS is narrow, there is nonspecific ST changes in the anterior leads but no ST segment elevation. HPI General Mode of arrival: ambulatory . Date/Time Provider Initiated Documentation: 01/11/19 17:25 . Limitations to Documentation: no limitations . Information obtained by: patient . History of Present Illness 48 year old F presents to the emergency department with the chief complaint of Intermittent burning epigastric pain for days time, worse with food, described as mild, and is localized to the abdomen. Patient reports no radiation. Patient started experiencing this day(s) and it has been intermittent. Eating worsens symptoms . Patient notes denies chest pain, fever/chills, headaches, loss of appetite, malaise and nausea/vomiting. Patient did receive the following treatments prior to arrival, none Related Data Home Medications Medication Instructions Recorded Confirmed albuterol sulfate 1 - 2 puff INHALATION Q4H PRN 03/21/14 01/11/19 inhaler desvenlafaxine succinate [Pristiq] 100 mg PO DAILY tab-cap 03/21/14 01/11/19 norethindrone acetate 5 mg PO DAILY #90 tab 05/22/16 01/11/19 Flovent HFA 2 puff INHALATION BID #1 inhaler 04/22/17 01/11/19 Protonix 40 mg PO DAILY 04/22/17 01/11/19 Proventil Hfa 2 puff INHALATION Q4H PRN inhaler 04/22/17 01/11/19 aripiprazole [Abilify] 10 mg PO DAILY tab-cap 04/22/17 01/11/19 atenolol 50 mg PO DAILY tab-cap 04/22/17 01/11/19 fenofibrate 145 mg PO DAILY tab-cap 04/22/17 01/11/19 gabapentin 300 mg PO DAILY 04/22/17 01/11/19 nystatin 1 ea PO BID script 04/22/17 01/11/19 lisinopril 40 mg PO DAILY tab-cap 04/23/17 01/11/19 Narcan 4 mg INTRANASAL PRN PRN 04/29/18 01/11/19 Nicotrol 10 mg INHALATION Q2H PRN PRN #0 ea 04/29/18 01/11/19 bupropion HCl [Wellbutrin XL] 200 mg PO DAILY 04/29/18 01/11/19 glipizide 2.5 mg PO BID 04/29/18 01/11/19 nicotine 1 patch TD DAILY #21 each 04/29/18 01/11/19 oxycodone-acetaminophen 1 tab PO Q4H PRN 04/29/18 01/11/19 methylphenidate HCl [Ritalin] 20 mg PO BID 11/15/18 01/11/19 sucralfate [Carafate] 1 gm PO BID #20 tab 01/11/19 Previous Rx's Medication Instructions Recorded Nicotrol 10 mg INHALATION Q2H PRN PRN #0 ea 04/29/18 nicotine 1 patch TD DAILY #21 each 04/29/18 sucralfate [Carafate] 1 gm PO BID #20 tab 01/11/19 Allergies Allergy/AdvReac Type Severity Reaction Status Date / Time amoxicillin Allergy Skin Rash Unverified 01/11/19 17:45 Sulfa (Sulfonamide Allergy Unverified 01/11/19 17:45 Antibiotics) Antiobiotics AdvReac Intermediate Rash,vomitt Uncoded 01/11/19 17:45 ing General Stated Complaint: Chest Pain HEATHER: 2 Review of Systems Narrative: Recent pyelonephritis with acute renal failure, recently started back on ESTEE inhibitor. No headache. No vomiting. No chest pain. 8 systems reviewed and otherwise negative. [facility] Medical History Chronic atrophic candidosis COPD (chronic obstructive pulmonary disease) Depression with anxiety Diabetes mellitus type 2 in obese HTN (hypertension) Hyperlipidemia Morbid obesity HELEN (obstructive sleep apnea) Smoker Surgical History Bilat partial saplinectomy Cholecystectomy (12/07/15) LAPAROSCOPIC WITH INTRAOPERATIVE CHOLANGIOGRAM/[facility] Ligation of fallopian tube Open Carpal Tunnel release Repair of umbilical hernia Tonsillectomy and adenoidectomy Social History Smoking/Tobacco Use Status: Current every day Tobacco Type: cigarettes Alcohol Intake: never Substance use type: opiates and painkillers Do you feel safe at home: Yes Do you feel safe in your relationship?: Yes Exam Narrative Exam Narrative: GEN: awake, alert, oriented 3. Pleasant, well groomed, interactive. HEAD: Normocephalic, atraumatic ENT: Mucous membranes moist, oropharynx unremarkable, External ear exam unremarkable EYES: PERRL, EOMI NECK: Full ROM, no SARI, no menigismus CHEST/RESP: Nontender, clear to auscultation bilateral, no wheeze/rhonchi/rales CARDIOVASCULAR: RRR, no murmur, rub dank. 2+ Rad pulse bilateral ABDOMEN: Soft, minimal epigastric tenderness without rebound or guarding, no mass. +Bowel sounds EXT: Full ROM, no edema, no rash Neuro: Grossly normal neurologic exam, conversant, interactive. Psych: Speech fluent, thoughts congruent, affect normal Course Vital Signs Vital signs: Vital Signs Temperature 36.6 C 01/11/19 17:25 Pulse 81 01/11/19 17:25 Respiratory Rate 22 01/11/19 17:25 Blood Pressure 182/89 H 01/11/19 17:25 Pulse Oximetry 93 L 01/11/19 17:25 Temperature 36.6 C 01/11/19 17:25 Temperature Source Skin 01/11/19 17:25 Pulse 81 01/11/19 17:25 Respiratory Rate 22 01/11/19 17:25 Blood Pressure 182/89 H 01/11/19 17:25 Blood Pressure Position Supine 01/11/19 17:25 Pulse Oximetry 93 L 01/11/19 17:25 Oxygen Delivery Method Room Air 01/11/19 17:25 Oxygen Flow Rate 0 01/11/19 17:25 Pain Level 5 01/11/19 17:25
[2019-01-11] MEDS: Sucralfate 1 GM TAB (17:49)
[2019-01-11 18:07] VITALS: RESP 24
[2019-01-11 18:10] LABS: Abs Immature Grans 0.04 k/cumm (0.0-0.09); Absolute Basophil Count 0.02 k/cumm (0.0-0.2); Absolute Eosinophil Count 0.01 k/cumm (0.0-0.7); Absolute Lymphocyte Count 3.27 k/cumm (1.2-3.4); Absolute Monocyte Count 0.83 k/cumm (0.11-0.7); Absolute Neutrophil Count 5.74 k/cumm (1.2-6.7); Basophils % 0.2; Eosinophils % 0.1; HCT 44.5 % (36.0-46.0); HGB 14.7 g/dL (12.0-15.5); Immature Grans % 0.4; Mean Corpuscular Hemoglobin 31.3 pg (27.0-33.0); Mean Corpuscular Volume 94.7 fL (80-95); Mean Platelet Volume 9.3 fL (8.0-11.0); Monocytes % 8.4; Neutrophils % 57.9; Platelet Count 250 x1000/uL (130-400); RBC Distribution Width 14.9 % (11.7-14.6); White Blood Cell Count 9.91 k/cumm (4.4-10.8)
[2019-01-11 18:44] LABS: ALT 13 U/L (14-59); AST 11 U/L (15-37); Albumin 3.7 g/dL (3.4-5.0); Alkaline Phosphatase 52 U/L (46-116); Anion Gap 9.8 mmol/L (3-11); BUN 13 mg/dL (7-18); Bilirubin, Total 0.4 mg/dL (0.2-1.0); CO2 25.2 mmol/L (21.0-32.0); CREATININE 0.76 mg/dL (0.55-1.02); Calcium 9.9 mg/dL (8.5-10.1); Chloride 105 mmol/L (98-107); Glucose 85 mg/dL (74-106); Lipase 334 U/L (73-393); Magnesium 1.6 mg/dL (1.8-2.4); Potassium 3.7 mmol/L (3.5-5.1); Sodium 140 mmol/L (136-145); Total Protein 7.9 g/dL (6.4-8.2)
[2019-01-11 18:52] LABS: Troponin I < 0.05 ng/Ml (<0.06)
[2019-01-11 19:00] VITALS: BP 184/86; PULSE 77; RESP 18; O2SAT 94
== END 2019-01-11 19:12 | disposition home or self-care (01) ==
PROVIDERS: Emergency Provider Emergency Medicine; PCP Physician Assistant Medical
DX: K29.00 Acute gastritis without bleeding (principal)
CPT/HCPCS: 36415; 80053; 83690; 93005; 99284; 83735; 84484; 85025; 93010

== ENCOUNTER → 2019-01-18 10:13 | Outpatient (BNVA) | payer MEDICARE, MEDICAID, SELFPAY | PROVIDERS: PCP Physician Assistant Medical; Referring Provider Physician Assistant Medical; Visit Provider Student in an Organized Health Care Education/Training Program | DX: M17.11 Unilateral primary osteoarthritis, right knee (principal); M17.12 Unilateral primary osteoarthritis, left knee | CPT/HCPCS: 20610; 99214; J7325 ==

== ENCOUNTER 2019-02-27 09:07 | Inpatient (IN) | payer MEDICARE, MEDICAID, SELFPAY ==
[2019-02-27] VITALS (94 sets, daily range): BP systolic 124–179; BP diastolic 80–106; PULSE 95–126; RESP 4–40; TEMP 36.5–37.2; O2SAT 80–95
--- NOTE | 2019-02-27 09:12 | ED.GENADUL_ITS ---
Discharge Plan Disposition Patient Disposition: [facility] INPATIENT Condition: Stable Discharge Details Chief Complaint: SOB Clinical Impression: Acute exacerbation of chronic obstructive pulmonary disease, History of heart failure Admit Date/Time: 02/27/19 12:54 Admit Provider: Gopi Llanes Attending Provider: Gopi Llanes Primary Care Provider: Maria Del Carmen Nogueira ED Provider: Madiha Jarvis Discharge Data Discharge Date/Time-TO BE ENTERED AT DEPARTURE: 02/27/19 13:56 Medical Decision Making 0920 -- 48-year-old female with a history of morbid obesity, anxiety, bipolar disorder, COPD, diabetes and hypertension presents for dry cough and shortness of breath for the past 5 days. She admits to feeling feverish. She is a current smoker. She states she uses 2 L of O2 at night. She states her baseline room air is mid 90s and can be high 80s when she has a cold. Heart rate 110s. Respiratory rate high 20s. O2 sat 80% on room air, increased to 85% on 6 L. Will give 2 DuoNeb, and reassess. Low threshold for BiPAP. She is speaking in broken sentences. She has diminished breath sounds with scattered wheezing and minimal rhonchi throughout. Suspect most likely COPD exacerbation, also consider influenza, pneumonia, ACS. Will check screening labs and chest x-ray. Will give nebulizer treatment, Solu- Medrol. 0945 --patient reassessed -O2 sat 93 to 95% on room air. Improved breath sounds but still seems tight with scattered wheezing. Will give a 7.5 mg albuterol neb and reassess. 1030 --labs and imaging reviewed. White blood cell count 12. Hemoglobin 17. Normal coagulation studies and electrolytes. Lactate normal at 1.2. Troponin negative. BNP 1267. Chest x-ray notes pulmonary vascular congestion, may be edema versus atelectasis. Patient has a history of CHF with an elevated BNP. She states she has Lasix at home to take occasionally. Will give a dose of 20 mg IV Lasix now. Breath sounds improved but O2 sat 90% on 6 L. She seems improved but concerned about hypoxia. Will give an hour-long neb and reassess. 1220 --O2 sat 95% on 5 L. Patient has fair air movement, but still with wheezing. Will admit for worsening hypoxia after multiple nebs for continued nebs and observation. She does seem to be slightly clinically improved. Do not see an indication for BiPAP at this time. Patient is agreeable with plan. 1230 --discussed with hospitalist -accepts patient for admission. Medical Records Medical records reviewed: Yes I reviewed the patient's medical records. Imaging Data Radiologic Study: Radiologist's impression: XR Chest, 1 View Exam date and time: 02/27/2019 9:46 AM Age: 48 years old Clinical indication: Other: Cough, SOB, R/O acute disease TECHNIQUE: Imaging protocol: XR of the chest Views: 1 view. COMPARISON: XR PORTABLE CHEST AP 11/15/2018 10:46 PM FINDINGS: Lungs: Prominent, indistinct pulmonary vasculature. Small Patchy bibasilar opacities. Pleural space: Unremarkable. No pleural effusion. No pneumothorax. Heart/Mediastinum: Enlarged cardiomediastinal silhouette. Bones/joints: Unremarkable. IMPRESSION: Prominent, indistinct pulmonary vasculature consistent with pulmonary edema or atypical infection. Small bibasilar patchy opacities likely reflect edema and/or atelectasis. Lab Data Lab results reviewed: Yes I reviewed the patient's lab results. ECG Data Attestation: I personally reviewed and interpreted this ECG (s) as follows: Interpretation: rate of 103, sinus, no acute st elevation or depression. SC 152. QTc 432. QRS 94. HPI General Mode of arrival: ambulatory . Date/Time Provider Initiated Documentation: 02/27/19 09:11 . Limitations to Documentation: no limitations . Information obtained by: patient . History of Present Illness 48 year old F presents to the emergency department with the chief complaint of cough, shortness of breath, Patient started experiencing this day(s) (5) and it has been constant. No relieving factors improve symptom(s), No exacerbating factors reported . Patient notes cough (mainly dry) and fever/chills; denies c hest pain and headaches. Patient did receive the following treatments prior to arrival, other (nebulizer treatment) Related Data Home Medications Medication Instructions Recorded Confirmed albuterol sulfate 1 - 2 puff INHALATION Q4H PRN 03/21/14 01/11/19 inhaler desvenlafaxine succinate [Pristiq] 100 mg PO DAILY tab-cap 03/21/14 02/27/19 norethindrone acetate 5 mg PO DAILY #90 tab 05/22/16 02/27/19 Flovent HFA 2 puff INHALATION BID #1 inhaler 04/22/17 02/27/19 Protonix 40 mg PO DAILY 04/22/17 02/27/19 Proventil Hfa 2 puff INHALATION Q4H PRN inhaler 04/22/17 02/27/19 aripiprazole [Abilify] 10 mg PO DAILY tab-cap 04/22/17 02/27/19 atenolol 50 mg PO DAILY tab-cap 04/22/17 02/27/19 fenofibrate 145 mg PO DAILY tab-cap 04/22/17 02/27/19 gabapentin 800 mg PO DAILY 04/22/17 02/27/19 nystatin 1 ea PO BID script 04/22/17 02/27/19 lisinopril 40 mg PO DAILY tab-cap 04/23/17 02/27/19 Narcan 4 mg INTRANASAL PRN PRN 04/29/18 02/27/19 bupropion HCl [Wellbutrin XL] 300 mg PO DAILY 04/29/18 02/27/19 glipizide 2.5 mg PO BID 04/29/18 02/27/19 oxycodone-acetaminophen 1 tab PO Q4H PRN 04/29/18 02/27/19 methylphenidate HCl [Ritalin] 20 mg PO BID 11/15/18 02/27/19 sucralfate [Carafate] 1 gm PO BID #20 tab 01/11/19 02/27/19 Previous Rx's Medication Instructions Recorded sucralfate [Carafate] 1 gm PO BID #20 tab 01/11/19 Allergies Allergy/AdvReac Type Severity Reaction Status Date / Time amoxicillin Allergy Skin Rash Unverified 02/27/19 09:21 Sulfa (Sulfonamide Allergy Unverified 02/27/19 09:21 Antibiotics) Antiobiotics AdvReac Intermediate Rash,vomitt Uncoded 02/27/19 09:21 ing General HEATHER: 2 Review of Systems All systems reviewed & are unremarkable except as noted in HPI and below Constitutional Constitutional: Reports as per HPI, Denies chills and Denies fever(s) Eyes Eyes: Denies blurry vision ENT Ears, Nose, Mouth, and Throat: Denies dizziness, Denies sore throat and Denies throat swelling Cardiovascular Cardiovascular: Denies chest pain and Reports dyspnea Respiratory Respiratory: Denies cough and Reports dyspnea Gastrointestinal Gastrointestinal: Denies abdominal pain, Denies diarrhea and Denies vomiting Genitourinary Genitourinary: Denies hematuria and Denies dysuria Musculoskeletal Musculoskeletal: Denies back pain and Denies numbness Integumentary/Breasts Skin/Breast: Denies lesions and Denies rash Neurologic Neurologic: Denies dizziness, Denies focal weakness and Denies numbness Allergic/Immunologic Allergic/Immunologic: Denies throat swelling [facility] Medical History Chronic atrophic candidosis COPD (chronic obstructive pulmonary disease) Depression with anxiety Diabetes mellitus type 2 in obese HTN (hypertension) Hyperlipidemia Morbid obesity HELEN (obstructive sleep apnea) Smoker Surgical History Bilat partial saplinectomy Cholecystectomy (12/07/15) LAPAROSCOPIC WITH INTRAOPERATIVE CHOLANGIOGRAM/[facility] Ligation of fallopian tube Open Carpal Tunnel release Repair of umbilical hernia Tonsillectomy and adenoidectomy Family History (Updated 02/27/19 @ 16:29 by Gopi Llanes) Other COPD (chronic obstructive pulmonary disease) Cancer Social History (Updated 02/27/19 @ 16:31 by Gopi Llanes) Smoking/Tobacco Use Status: Current every day Tobacco Type: cigarettes Quit status: considering quitting Second Hand Exposure: Yes Alcohol Intake: never Drug use: Never Substance use type: does not use, opiates and painkillers Current gender identity: female Do you feel safe at home: Yes Do you feel safe in your relationship?: Yes Additional Social history: Lives with her male partner, who also smokes. Disabled. Exam Const General: cooperative Nutritional Appearance: obese morbidly obese Orientation: alert, awake and oriented x3 HENMT Head: normal to inspection Face and sinus: normal facial exam Eyes General: appearance normal, both eyes and all related structures EOM: EOM intact bilaterally Neck Neck: normal visual inspection and No submandibular swelling Lymphatic: no lymphadenopathy noted Chest Chest: normal inspection of the chest and no tenderness Resp Effort & Inspection: normal respiratory effort and not able to speak in complete sentences Auscultation: diminished lung sounds bilaterally throughout, rhonchi (minimal ) upper bilaterally and lower bilaterally and wheezes expiratory wheezes and inspiratory wheezes Cardio Rate: tachycardic Rhythm: regular rhythm GI Inspection: normal to inspection and obesity Palpation: soft, not firm, not rigid and nontender Auscultation: hypoactive bowel sounds Skin General skin exam: no rashes or lesions noted Neuro General: alert, awake and oriented x3 Cognition: normal cognition Speech: speech normal Motor: muscle tone normal throughout Sensory Exam: no sensory deficits noted Extrem General: normal to inspection, full ROM, normal capillary refill, no calf tenderness bilaterally and no edema Psych Appearance: grossly normal Mental Status: mental status grossly normal Speech and Movement: speech and movement normal Affect: normal affect
[2019-02-27] MEDS: Albuterol/Ipratropium 3 ML UPD VIAL 6 ML UPD (09:17)
[2019-02-27] MEDS: Normal Saline 250 ML IV (09:30)
[2019-02-27] MEDS: methylPREDNISolone SUCC 125 MG VIAL IVP (09:36)
[2019-02-27 09:38] LABS: Lactate 1.2 mmol/L (0.6-1.4)
[2019-02-27 09:41] LABS: Abs Immature Grans 0.05 k/cumm (0.0-0.09); Absolute Basophil Count 0.03 k/cumm (0.0-0.2); Absolute Lymphocyte Count 2.32 k/cumm (1.2-3.4); Basophils % 0.2; HCT 54.2 % (36.0-46.0); HGB 17.6 g/dL (12.0-15.5); Immature Grans % 0.4 %; Lymphocytes % 18.3; Mean Corp. HGB Concentration 32.5 g/dL (32.0-36.0); Mean Corpuscular Hemoglobin 29.8 pg (27.0-33.0); Mean Corpuscular Volume 91.9 fL (80-95); Mean Platelet Volume 9.6 fL (8.0-11.0); Monocytes % 9.8; Neutrophils % 71.3; Platelet Count 247 x1000/uL (130-400); RBC Distribution Width 15.4 % (11.7-14.6)
--- NOTE | 2019-02-27 09:42 | DI.RAD_ITS ---
EXAM: XR PORTABLE CHEST AP INDICATION: cough, sob, r/o acute disease. COMPARISON: XR PORTABLE CHEST AP from 11/15/2018 TECHNIQUE: 2D digital imaging was performed. FINDINGS: Heart appears mildly enlarged. There is prominence of the pulmonary vasculature which may represent edema. Patchy infiltrates are seen in the lungs. This may represent atelectasis, edema or pneumonia . No effusions or pneumothoraces are identified. The bones appear intact. IMPRESSION: 1. Prominent pulmonary vasculature which may represent pulmonary edema. 2. Patchy opacities within the lungs which may represent pulmonary edema or infection.
[2019-02-27 09:44] LABS: Absolute Monocyte Count 1.24 k/cumm (0.11-0.7); Absolute Neutrophil Count 9.06 k/cumm (1.2-6.7)
[2019-02-27 09:54] LABS: INR 1.1 (0.9-1.1); PTT Activated 31.2 sec (21.0-31.4); Prothrombin Time 10.8 sec (9.3-11.0)
[2019-02-27 10:02] LABS: ALT 14 U/L (14-59); AST 16 U/L (15-37); Albumin 3.6 g/dL (3.4-5.0); Alkaline Phosphatase 81 U/L (46-116); Anion Gap 8.4 mmol/L (3-11); BUN 11 mg/dL (7-18); Bilirubin, Total 0.7 mg/dL (0.2-1.0); CO2 29.6 mmol/L (21.0-32.0); CREATININE 0.61 mg/dL (0.55-1.02); Calcium 10.5 mg/dL (8.5-10.1); Chloride 102 mmol/L (98-107); Glucose 164 mg/dL (74-106); Magnesium 1.6 mg/dL (1.8-2.4); NT-proBNP 1267 pg/mL (<300); Potassium 3.7 mmol/L (3.5-5.1); Sodium 140 mmol/L (136-145); Total Protein 8.5 g/dL (6.4-8.2)
[2019-02-27 10:03] LABS: Troponin I < 0.05 ng/Ml (<0.06)
[2019-02-27] MEDS: Albuterol 2.5 MG/3 ML INH SOLN VIAL (10:08)
--- NOTE | 2019-02-27 10:19 | DI.VRAD_ITS ---
PROCEDURE INFORMATION: Exam: XR Chest, 1 View Exam date and time: 02/27/2019 9:46 AM Age: 48 years old Clinical indication: Other: Cough, SOB, R/O acute disease TECHNIQUE: Imaging protocol: XR of the chest Views: 1 view. COMPARISON: XR PORTABLE CHEST AP 11/15/2018 10:46 PM FINDINGS: Lungs: Prominent, indistinct pulmonary vasculature. Small Patchy bibasilar opacities. Pleural space: Unremarkable. No pleural effusion. No pneumothorax. Heart/Mediastinum: Enlarged cardiomediastinal silhouette. Bones/joints: Unremarkable. IMPRESSION: Prominent, indistinct pulmonary vasculature consistent with pulmonary edema or atypical infection. Small bibasilar patchy opacities likely reflect edema and/or atelectasis. Dictated and Authenticated by: Clayton Gallo MD. Ordering:CHAR Cleary MD
[2019-02-27] MEDS: Furosemide 20 MG/2 ML VIAL IVP ×2 (10:44→12:47)
--- NOTE | 2019-02-27 16:17 | HPE_ITS ---
Date of service: 02/27/19 Time of Service: 16:18 Assessment and Plan Assessment and plan (1) Acute exacerbation of CHF (congestive heart failure): Status: Acute Assessment and plan: While her presentation was triggered by upper respiratory infection, does appear consistent with CHF as a major contributor to her hypoxia and respiratory distress. She has received 2 doses of furosemide in the emergency room and has been diuresing. I reviewed her previous echocardiogram from April which showed a preserved ejection fraction and signs of diastolic dysfunction and pulmonary hypertension. I will continue furosemide and monitoring of ins and outs. She is tachycardic after bronchodilator, but still low risk for PE per wells criteria.[id number] (2) COPD with acute exacerbation: Status: Acute Assessment and plan: While the patient did not respond as well as we would like to nebulizers, I do think there is an element of COPD exacerbation contributing to her presentation. She has been started on steroids and I will continue steroids with oral prednisone. With some increased productive cough and elevated white count indicating possible atypical infection, I will add doxycycline. Continue bronchodilators as needed as well. Smoking cessation as below. Of note, her previous problem list lists asthma. Her chronic inhaler is more appropriate for asthma. She likely has a mixed picture. A combination inhaled corticosteroid and long-acting beta agonist would be a good choice for her on discharge for controller therapy. Also of note that her 2 siblings also had early diagnoses of COPD. Alpha-1 antitrypsin testing may be considered. (3) Tobacco abuse: Status: Acute Assessment and plan: Patient does appear to be motivated. We will give her nicotine replacement via Nicotrol inhaler here. She is not done well with the patch in the past. She is taking bupropion and will continue this. She may consider addition of Chantix as well. (4) Diabetes mellitus: Status: Chronic Assessment and plan: Has been controlled, only getting glipizide as an outpatient. Will recheck A1c and monitor blood sugars with the addition of corticosteroid. (5) Primary osteoarthritis of both knees: Status: Chronic Assessment and plan: Patient is on chronic pain medication including oxycodone for knee and back pain. She is also on gabapentin and an SNRI. We will continue these for now. (6) HELEN (obstructive sleep apnea): Status: Chronic Assessment and plan: She should have home CPAP, will confirm with her order her outpatient unit. (7) HTN (hypertension): Status: None Assessment and plan: Blood pressure high at admission. Will resume her outpatient therapy. (8) Hypomagnesemia: Status: Acute Assessment and plan: We will replete with IV magnesium. (9) Hypercalcemia: Status: Acute Assessment and plan: This does appear new, and with the lower than normal albumin, a corrected level is higher. No clear symptoms, and the levels are still in the mild range. We will follow this consider additional work-up if hypercalcemia persists. (10) Mood disorder: Status: Acute Assessment and plan: Patient is being treated for chronic depression and apparently ADHD. We will continue outpatient desvenlafaxine, bupropion, aripipr azole, and methylphenidate. (11) Abnormal uterine bleeding: Status: Acute Assessment and plan: I could not find records to confirm the history, but the patient states she has an IUD and takes norethindrone daily to control uterine bleeding, which would be an appropriate indication. We will continue. (12) GERD (gastroesophageal reflux disease): Status: Chronic Assessment and plan: We will continue chronic pantoprazole. Continue sulcal fate for now but should clarify she really does take this chronically. (13) DVT prophylaxis: Status: Acute Assessment and plan: Low molecular weight heparin for DVT prophylaxis (14) Discharge planning issues: Status: Acute Assessment and plan: Patient is stable on the medical floor. She is full code History of Present Illness History of Present Illness Chief Complaint: Shortness of breath Narrative: 46-year-old female with history of BMI of 47, COPD with active smoking, congestive heart failure with preserved ejection fraction, and sleep apnea who presents with 1 week of progressive shortness of breath and cough. Patient states she was in her normal state of health until February 19, when she felt ill with headache and vomiting. The next day, she had cold symptoms including runny nose and cough. She developed fevers and the cough was somewhat productive. She treated herself at home with nebulized albuterol, but this did not help much. She did not try giving herself or as needed Lasix because she did not note increased swelling. After not sleeping last night and feeling more short of breath and run down, she presented to the emergency room today. Review of Systems Narrative: General: No weight change. Poor appetite for the past 3 days, did eat some today. HEENT: Pain in right ear. No discharge. Mild sore throat. No facial pain. No difficulty swallowing. Neurologic: Has woken with a dull headache every day in the past week after more severe headache a week ago. No dizziness. No focal numbness or weakness. Cardiovascular: No chest pain or palpitations Lungs: No hemoptysis GI: No vomiting since initial episode a week ago. No diarrhea or constipation. No blood in the stool. : No recent vaginal bleeding. No dysuria or hematuria or change in urine flow. Musculoskeletal: Chronic severe knee pain, no new pain or new swelling. Skin: No rashes or other new skin lesions. Heme: No other bruising or bleeding. [facility] Medical History Chronic atrophic candidosis COPD (chronic obstructive pulmonary disease) Depression with anxiety Diabetes mellitus type 2 in obese HTN (hypertension) Hyperlipidemia Morbid obesity HELEN (obstructive sleep apnea) Smoker Surgical History Bilat partial saplinectomy Cholecystectomy (12/07/15) LAPAROSCOPIC WITH INTRAOPERATIVE CHOLANGIOGRAM/[facility] Ligation of fallopian tube Open Carpal Tunnel release Repair of umbilical hernia Tonsillectomy and adenoidectomy Family History (Updated 02/27/19 @ 16:29 by Gopi Llanes) Other COPD (chronic obstructive pulmonary disease) Cancer Social History (Updated 02/27/19 @ 16:31 by Gopi Llanes) Smoking/Tobacco Use Status: Current every day Tobacco Type: cigarettes Quit status: considering quitting Second Hand Exposure: Yes Alcohol Intake: never Drug use: Never Substance use type: does not use, opiates and painkillers Current gender identity: female Do you feel safe at home: Yes Do you feel safe in your relationship?: Yes Additional Social history: Lives with her male partner, who also smokes. Disab led. Meds Home Medications and Allergies Home Medications Medication Instructions Recorded Confirmed Type albuterol sulfate 1 - 2 puff INHALATION Q4H PRN 03/21/14 01/11/19 History inhaler desvenlafaxine succinate [Pristiq] 100 mg PO DAILY tab-cap 03/21/14 02/27/19 History norethindrone acetate 5 mg PO DAILY #90 tab 05/22/16 02/27/19 History Flovent HFA 2 puff INHALATION BID #1 inhaler 04/22/17 02/27/19 History Protonix 40 mg PO DAILY 04/22/17 02/27/19 History Proventil Hfa 2 puff INHALATION Q4H PRN inhaler 04/22/17 02/27/19 History aripiprazole [Abilify] 10 mg PO DAILY tab-cap 04/22/17 02/27/19 History atenolol 50 mg PO DAILY tab-cap 04/22/17 02/27/19 History fenofibrate 145 mg PO DAILY tab-cap 04/22/17 02/27/19 History gabapentin 800 mg PO DAILY 04/22/17 02/27/19 History nystatin 1 ea PO BID script 04/22/17 02/27/19 History lisinopril 40 mg PO DAILY tab-cap 04/23/17 02/27/19 History Narcan 4 mg INTRANASAL PRN PRN 04/29/18 02/27/19 History bupropion HCl [Wellbutrin XL] 300 mg PO DAILY 04/29/18 02/27/19 History glipizide 2.5 mg PO BID 04/29/18 02/27/19 History oxycodone-acetaminophen 1 tab PO Q4H PRN 04/29/18 02/27/19 History methylphenidate HCl [Ritalin] 20 mg PO BID 11/15/18 02/27/19 History sucralfate [Carafate] 1 gm PO BID #20 tab 01/11/19 02/27/19 Rx Allergies Allergy/AdvReac Type Severity Reaction Status Date / Time amoxicillin Allergy Skin Rash Unverified 02/27/19 09:21 Sulfa (Sulfonamide Allergy Unverified 02/27/19 09:21 Antibiotics) Antiobiotics AdvReac Intermediate Rash,vomitt Uncoded 02/27/19 09:21 ing Exam Narrative Exam Narrative: General: Alert and oriented, sitting in bed speaking in full sentences with oxygen via nasal cannula. Mildly tachypneic with interview. HEENT: Normocephalic atraumatic. Pupils 3 to 4 mm in light, extraocular motion intact. Conjunctive are clear. Mucous membranes moist. Oropharynx red, but no exudate. Tympanic membranes clear bilaterally with normal landmarks. Some rhinorrhea. Neck is supple with no masses or lymphadenopathy. Lungs: Diffusely diminished with some mild squeaky wheezes with expiration more inferiorly. No rales. Mildly tachypneic as above. Cardiovascular: Regular rate and rhythm, no murmurs gallops or rubs. Abdomen: Active bowel sounds, soft, non-tender. Large pannus but not distended. Extremities: No cyanosis clubbing or edema. Dorsalis pedis pulses 2+ bilaterally. Muscle skeletal: No joint redness or swelling Psychiatric: Normal speech and affect. Normal thought process. Neurologic: Cranial nerves grossly intact. Moves 4 extremities normally. Normal speech and coordination. Results Imaging Chest x-ray: report reviewed Additional studies: Sinus tachycardia, no significant change from 01/11/2019. EKG: image reviewed Labs Result diagrams: 02/27/19 09:30 02/27/19 09:30 Labs: Laboratory Results - last 24 hr 02/27/19 02/27/19 02/27/19 09:30 09:30 09:30 WBC 12.70 H RBC 5.90 H Hgb 17.6 H Hct 54.2 H MCV 91.9 MCH 29.8 MCHC 32.5 RDW 15.4 H Plt Count 247 MPV 9.6 Immature Gran % 0.4 Neutrophils % 71.3 Lymphocytes % 18.3 Monocytes % 9.8 Eosinophils % 0.0 Basophils % 0.2 Absolute Neutrophils 9.06 H Absolute Lymphocytes 2.32 Absolute Monocytes 1.24 H Absolute Eosinophils 0.00 Absolute Basophils 0.03 PT 10.8 INR 1.1 APTT 31.2 Sample Site pCO2 pO2 O2 Saturation ABG pH ABG HCO3 ABG Total CO2 ABG Base Excess Oxygen Liter Flow FiO2 Sodium 140 Potassium 3.7 Chloride 102 Carbon Dioxide 29.6 Anion Gap 8.4 BUN 11 Creatinine 0.61 Estimated GFR/1.73 m2 >= 60.00 Glucose 164 H Lactate Calcium 10.5 H Magnesium 1.6 L Total Bilirubin 0.7 AST 16 ALT 14 Alkaline Phosphatase 81 Troponin I < 0.05 NT-Pro-B Natriuret Pep 1267 H Total Protein 8.5 H Albumin 3.6 02/27/19 02/27/19 09:30 12:24 WBC RBC Hgb Hct MCV MCH MCHC RDW Plt Count MPV Immature Gran % Neutrophils % Lymphocytes % Monocytes % Eosinophils % Basophils % Absolute Neutrophils Absolute Lymphocytes Absolute Monocytes Absolute Eosinophils Absolute Basophils PT INR APTT Sample Site Cancelled pCO2 Cancelled pO2 Cancelled O2 Saturation Cancelled ABG pH Cancelled ABG HCO3 Cancelled ABG Total CO2 Cancelled ABG Base Excess Cancelled Oxygen Liter Flow Cancelled FiO2 Cancelled Sodium Potassium Chloride Carbon Dioxide Anion Gap BUN Creatinine Estimated GFR/1.73 m2 Glucose Lactate 1.2 Calcium Magnesium Total Bilirubin AST ALT Alkaline Phosphatase Troponin I NT-Pro-B Natriuret Pep Total Protein Albumin Last Vital Signs Temp 36.5 C 02/27/19 14:16 Pulse 118 H 02/27/19 14:16 Resp 27 H 02/27/19 14:16 BP 162/85 H 02/27/19 14:16 Pulse Ox 91 L 02/27/19 14:16
[2019-02-27] MEDS: Enoxaparin 40 MG/0.4 ML SYR SC (17:36)
[2019-02-27] MEDS: MAGNESIUM SULFATE 2 GM/50 ML BAG IVPB (17:59)
[2019-02-27] MEDS: Normal Saline 500 ML IV (18:00)
[2019-02-27] MEDS: Insulin Aspart 300 UNITS/3 ML PEN SC (18:40)
[2019-02-27] MEDS: Gabapentin 400 MG CAP 800 MG PO (21:00)
[2019-02-27] MEDS: Doxycycline Hyclate 100 MG CAP PO (21:00)
[2019-02-27] MEDS: Pantoprazole 40 MG TABCR PO (21:00)
[2019-02-27] MEDS: Acetaminophen 325 MG TAB PO (21:00)
[2019-02-27] MEDS: Insulin Glargine 300 UNITS/3 ML PEN 15 UNITS SC (21:00)
[2019-02-28] VITALS (8 sets, daily range): BP systolic 134–148; BP diastolic 84–86; PULSE 76–102; RESP 4–24; TEMP 36.8–37.2; O2SAT 90–95
[2019-02-28 07:31] LABS: ALT 14 U/L (14-59); AST 13 U/L (15-37); Albumin 2.9 g/dL (3.4-5.0); Alkaline Phosphatase 65 U/L (46-116); Anion Gap 9.5 mmol/L (3-11); BUN 21 mg/dL (7-18); Bilirubin, Total 0.4 mg/dL (0.2-1.0); CO2 30.5 mmol/L (21.0-32.0); CREATININE 0.66 mg/dL (0.55-1.02); Calcium 10.5 mg/dL (8.5-10.1); Chloride 106 mmol/L (98-107); Glucose 148 mg/dL (74-106); Magnesium 1.9 mg/dL (1.8-2.4); Potassium 3.9 mmol/L (3.5-5.1); Sodium 146 mmol/L (136-145); Total Protein 7.3 g/dL (6.4-8.2)
[2019-02-28] MEDS: Albuterol 2.5 MG/3 ML INH SOLN VIAL UPD (08:09)
[2019-02-28] MEDS: Insulin Aspart 300 UNITS/3 ML PEN SC ×3 (09:03→16:56)
[2019-02-28] MEDS: Furosemide 20 MG/2 ML VIAL IVP (09:03)
[2019-02-28] MEDS: Atenolol 50 MG TAB PO (09:04)
[2019-02-28] MEDS: Doxycycline Hyclate 100 MG CAP PO ×2 (09:04→19:42)
[2019-02-28] MEDS: predniSONE 20 MG TAB 60 MG PO (09:04)
[2019-02-28] MEDS: Lisinopril 20 MG TAB 40 MG PO (09:04)
[2019-02-28] MEDS: ARIPiprazole 5 MG TAB 10 MG PO (09:04)
[2019-02-28] MEDS: buPROPion-XL 150 MG TABCR 300 MG PO (09:05)
[2019-02-28] MEDS: Fenofibrate, Micronized 145 MG TAB PO (09:05)
[2019-02-28] MEDS: Methylphenidate 10 MG TAB 20 MG PO ×2 (09:05→12:11)
--- NOTE | 2019-02-28 10:25 | PHARADMIT ---
Admission Pharmacy Clinical Review ACUTE COPD EXACERBATION, Hx of CHF, Morbid OBESITY Code Status Full Code Current Weight Wgt-119.5 kg Renally Cleared and Narrow Therapeutic Index Meds CrCl~67.27 mL/min Meds-OK QTc Value / Action Taken QTc-432 (Protoonix,Lasix) BP Control, Fever BP- 156/87 Tmax-36.9C Electrolytes reviewed Na- 146 K+3.9 Mag-1.9 DVT Prophylaxis Lovenox 40mg Opiate Usage / Scheduled Bowel Regimen Ordered Yes Yes Plt/SCr for Heparin / Enoxaparin Plts- 247SCr-0.66 INR for Warfarin inr-1.1 H/H stable, WBC/Bands H&H- 17.6/54.2 WBC12.70 Antibiotic appropriateness Doxycycline PO Cultures and Sensitivities Flu-Neg, [id number] Surgical ABX d/c within 24 hr NA DM control / Insulin Dosing BG-148 Aspart, Glargine Heart Failure (Check EF%) (ESTEE's, B-Block, Diuretics) Atenolol, Lasix, Lisinopril IV to PO Switch No Home Meds Reviewed Yes Home Meds Not Ordered Flovent, Glipizide, Narcan spray, Nohqyche37/325 Comments PatOwn Desvenlafaxine
[2019-02-28] MEDS: Furosemide 40 MG/4 ML VIAL IVP ×2 (10:44→16:32)
[2019-02-28] MEDS: Normal Saline Flush 10 ML SYR IVP ×2 (10:44→16:32)
[2019-02-28 11:34] LABS: Hemoglobin A1C 6.1 % (3.8-5.6)
--- NOTE | 2019-02-28 13:01 | PDOC.CMIN ---
Care Management Initial Assess REASON FOR HOSPITALIZATION:: Acute COPD Exacerbation, CHF, Morbid Obesity PAST MEDICAL HISTORY/PAST SURGICAL HISTORY:: COPD (chronic obstructive pulmonary disease),Chronic atrophic candidosis, Depression with anxiety, Diabetes mellitus type 2 in obese, HTN, Hyperlipidemia, Morbid obesity, HELEN (obstructive sleep apnea), Smoker. Surgical Hx: Bilat partial saplinectomy, tubal ligation, carpal tunnel release, umbilical hernia, and tonsillectomy, adenoidectomy. PREVIOUS FUNCTIONAL STATUS/SOCIAL/FAMILY SUPPORTS:: Rosibel resides in [facility] and has two grown children who also reside locally. Her son resides next door and shares the same driveway. Her fpc network contractor, Douglas resides with her and is also supportive. 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 She meets with her primary care once a month at [facility]. Douglas provides Rosibel's transporation needs. CURRENT FUNCTIONAL STATUS:: On admission, Rosibel was on 5L O2 with stats at 91% per RT. At baseline she only utilized O2 at night and at a rate of 2L. When CM met with Rosibel she reported feeling much better. She was sitting up in her chair with Douglas at her side. She reported she was only requiring 3L O2 at this time, and shared relief. She reported being interested in smoking cessation and was agreeable to referral. Has patient been provided with information about the portal?: Yes Did the patient sign up for the portal?: No CODE STATUS:: Full Code INSURANCE COVERAGE / FINANCIAL ISSUES:: Medicare. Medicaid CURRENT HOME/COMMUNITY SERVICES/EQUIPMENT:: Nebulizer, and nocturnal oxygen (2L) through [facility] PRIMARY CARE PHYSICIAN:: Maria Del Carmen Nogueira POTENTIAL DISCHARGE NEEDS:: Resources for smoking cessation, [facility] referral. Follow up appointments, [facility] notification at [facility], evaluation for further needs. CM requested inpatient status due to patient presentation. PATIENT/FAMILY EDUCATION NEEDS:: Review of discharge instructions, discuss Ask Me Three. ANTICIPATED BARRIERS TO DISCHARGE:: None identified. TRANSPORTATION:: Via private vehicle with Douglas. PLAN:: Rosibel will continue to be closely monitored and treated at this time. CM faxed smoking cessation referral to [facility] with Rosibel's permission. Rosibel will transport via private vehicle with her significant other, Douglas. CM will continue to support discharge planning considerations.
--- NOTE | 2019-02-28 15:37 | W.PM.PROGNOT ---
Date of Service Date of service: 02/28/19 Time of Service: 12:38 Assessment and Plan Assessment and plan (1) Acute exacerbation of CHF (congestive heart failure): Status: Acute Assessment and plan: While her presentation was triggered by upper respiratory infection, I still think CHF is the major contributor to her hypoxia and respiratory distress. History of preserved ejection fraction and pulmonary hypertension on echocardiogram from April 2018. Her Is/Os are negative, but she admits to drinking a lot of fluid and not having this all recorded. Her weight was up overnight. Given this, give additional furosemide this morning which she seem to respond to. I will increase her regular dose to 40 mg IV twice daily. She is tachycardia improved. Low risk for PE per wells criteria, but may reconsider CT if still hypoxic despite good diuresis. (2) COPD with acute exacerbation: Status: Acute Assessment and plan: While the patient did not respond as well as we would like to nebulizers, I do think there is an element of COPD exacerbation contributing to her presentation. Continue oral prednisone and bronchodilators as needed, as well as doxycycline. Of note, her previous problem list lists asthma. Her chronic inhaler is more appropriate for asthma. She likely has a mixed picture. A combination inhaled corticosteroid and long-acting beta agonist would be a good choice for her on discharge for controller therapy. Also of note that her 2 siblings also had early diagnoses of COPD. Alpha-1 antitrypsin testing may be considered. (3) Tobacco abuse: Status: Acute Assessment and plan: Patient does appear to be motivated. We will give her nicotine replacement via Nicotrol inhaler here. She is not done well with the patch in the past. She is taking bupropion and will continue this. She may consider addition of Chantix as well. Continue to encourage. (4) Diabetes mellitus: Status: Chronic Assessment and plan: Has been controlled, only getting glipizide as an outpatient. A1c pending. No significant hyperglycemia, but will continue to and monitor blood sugars with the addition of corticosteroid. (5) Primary osteoarthritis of both knees: Status: Chronic Assessment and plan: Patient is on chronic pain medication including oxycodone for knee and back pain. She is also on gabapentin and an SNRI. We will continue these for now, no change. (6) HELEN (obstructive sleep apnea): Status: Chronic Assessment and plan: Likely contributing to her pulmonary hypertension and overnight hypoxia. (7) HTN (hypertension): Status: None Assessment and plan: Continue to monitor on her outpatient therapy. (8) Hypomagnesemia: Status: Acute Assessment and plan: Improved after IV magnesium. (9) Hypercalcemia: Status: Acute Assessment and plan: This does appear new, and with the lower than normal albumin, a corrected level is higher. No clear symptoms, and the levels are still in the mild range, as persisted today. Should get assessment sodium with PTH, but can be followed as outpatient. (10) DVT prophylaxis: Status: Acute Assessment and plan: Low molecular weight heparin for DVT prophylaxis (11) Discharge planning issues: Status: Acute Assessment and plan: Patient is stable on the medical floor. She is full code Subjective Subjective Patient reports: feels better, tolerating liquids well, tolerating a regular diet and voiding w/o difficulty; denies diarrhea, nausea, vomiting and fever Interval history since last seen: 24hr: Given additional 40mg furosemide (after 20mg dose) IV this morning with improved diuresis Patient states she feels better today, less short of breath. Still not back to her baseline, however. She has a little whitish sputum, but less cough. No fevers. Patient and Lisa from respiratory therapy both agree she responds minimally to not at all to inhaled bronchodilator via nebulizer. Exam Narrative Exam Narrative: General: Alert and oriented, sitting in bed speaking in full sentences with oxygen via nasal cannula. HEENT: Conjunctive are clear. Mucous membranes moist. Lungs: Diffusely diminished with some mild squeaky wheezes with expiration only posteriorly and inferiorly. No rales. Less tachypneic today. Cardiovascular: Regular rate and rhythm, no murmurs gallops or rubs. Abdomen: Active bowel sounds, soft, non-tender. Large pannus but not distended. Extremities: No cyanosis clubbing or edema. Objective Objective Clinical Data: Abnormal lab results 02/28/19 02/28/19 Range/Units 06:40 06:40 Sodium 146 H (136-145) mmol/L BUN 21 H D (7-18) mg/dL Glucose 148 H (74-106) mg/dL Hemoglobin A1c 6.1 H (3.8-5.6) % Calcium 10.5 H (8.5-10.1) mg/dL AST 13 L (15-37) U/L Albumin 2.9 L (3.4-5.0) g/dL Vital Signs Temperature 37.2 C 02/28/19 10:54 Temperature Source Tympanic 02/28/19 10:54 Pulse 94 H 02/28/19 10:54 Pulse Rhythm Regular 02/28/19 07:30 Pulse 119 H 02/27/19 13:45 Respiratory Rate 24 02/28/19 10:54 Respiratory Effort Non-Labored 02/28/19 10:50 Respiratory Depth Normal 02/28/19 10:50 Respiratory Pattern Normal 02/28/19 10:50 Blood Pressure 134/86 02/28/19 10:54 Blood Pressure Mean 102 02/27/19 13:45 Blood Pressure Position Sitting 02/27/19 09:13 Pulse Oximetry 93 L 02/28/19 13:57 Oxygen Delivery Method Nasal Cannula 02/28/19 13:57 Oxygen Flow Rate 3 02/28/19 13:57 Pain Level 0 02/27/19 22:12 Comment 02/28/19 06:50 Intake & Output 02/27/19 02/28/19 02/28/19 23:59 11:59 23:59 Intake Total 0.013 / 269.038 2503 / 1025 Output Total 425 / 1175 1900 / 2500 600 / 2500 Balance -424.987 / -924.987 -875 / -1475 -600 / -1475 Weight 117.1 kg 119.5 kg Intake: IV 0.013 / 250.013 Oral 1025 / 1025 Output: Urine 425 / 1175 1900 / 2500 600 / 2500 Other: Urine Color Pale Yellow Straw Yellow Urine Appearance Clear Clear Clear Urine Odor Normal None Normal Comment toilet paper in commodee Voiding Methods Bedside Commode Bedside Commode Laboratory Results WBC 12.70 k/cumm (4.4-10.8) H 02/27/19 09:30 RBC 5.90 m/cumm (4.00-5.20) H 02/27/19 09:30 Hgb 17.6 g/dL (12.0-15.5) H 02/27/19 09:30 Hct 54.2 % (36.0-46.0) H 02/27/19 09:30 MCV 91.9 fL (80-95) 02/27/19 09:30 MCH 29.8 pg (27.0-33.0) 02/27/19 09:30 MCHC 32.5 g/dL (32.0-36.0) 02/27/19 09:30 RDW 15.4 % (11.7-14.6) H 02/27/19 09:30 Plt Count 247 x1000/uL (130-400) 02/27/19 09:30 MPV 9.6 fL (8.0-11.0) 02/27/19 09:30 Immature Gran % 0.4 % 02/27/19 09:30 Neutrophils % 71.3 02/27/19 09:30 Lymphocytes % 18.3 02/27/19 09:30 Monocytes % 9.8 02/27/19 09:30 Eosinophils % 0.0 02/27/19 09:30 Basophils % 0.2 02/27/19 09:30 Absolute Neutrophils 9.06 k/cumm (1.2-6.7) H 02/27/19 09:30 Absolute Lymphocytes 2.32 k/cumm (1.2-3.4) 02/27/19 09:30 Absolute Monocytes 1.24 k/cumm (0.11-0.7) H 02/27/19 09:30 Absolute Eosinophils 0.00 k/cumm (0.0-0.7) 02/27/19 09:30 Absolute Basophils 0.03 k/cumm (0.0-0.2) 02/27/19 09:30 PT 10.8 sec (9.3-11.0) 02/27/19 09:30 INR 1.1 (0.9-1.1) 02/27/19 09:30 APTT 31.2 sec (21.0-31.4) 02/27/19 09:30 Sample Site Cancelled 02/27/19 12:24 pCO2 Cancelled 02/27/19 12:24 pO2 Cancelled 02/27/19 12:24 O2 Saturation Cancelled 02/27/19 12:24 ABG pH Cancelled 02/27/19 12:24 ABG HCO3 Cancelled 02/27/19 12:24 ABG Total CO2 Cancelled 02/27/19 12:24 ABG Base Excess Cancelled 02/27/19 12:24 Oxygen Liter Flow Cancelled 02/27/19 12:24 FiO2 Cancelled 02/27/19 12:24 Sodium 146 mmol/L (136-145) H 02/28/19 06:40 Potassium 3.9 mmol/L (3.5-5.1) 02/28/19 06:40 Chloride 106 mmol/L (98-107) 02/28/19 06:40 Carbon Dioxide 30.5 mmol/L (21.0-32.0) 02/28/19 06:40 Anion Gap 9.5 mmol/L (3-11) 02/28/19 06:40 BUN 21 mg/dL (7-18) H D 02/28/19 06:40 Creatinine 0.66 mg/dL (0.55-1.02) 02/28/19 06:40 Estimated GFR/1.73 m2 >= 60.00 (mL/min/1.73m2) 02/28/19 06:40 Glucose 148 mg/dL (74-106) H 02/28/19 06:40 Hemoglobin A1c 6.1 % (3.8-5.6) H 02/28/19 06:40 Lactate 1.2 mmol/L (0.6-1.4) 02/27/19 09:30 Calcium 10.5 mg/dL (8.5-10.1) H 02/28/19 06:40 Magnesium 1.9 mg/dL (1.8-2.4) 02/28/19 06:40 Total Bilirubin 0.4 mg/dL (0.2-1.0) 02/28/19 06:40 AST 13 U/L (15-37) L 02/28/19 06:40 ALT 14 U/L (14-59) 02/28/19 06:40 Alkaline Phosphatase 65 U/L (46-116) 02/28/19 06:40 Troponin I < 0.05 ng/Ml (<0.06) 02/27/19 09:30 NT-Pro-B Natriuret Pep 1267 pg/mL (<300) H 02/27/19 09:30 Total Protein 7.3 g/dL (6.4-8.2) 02/28/19 06:40 Albumin 2.9 g/dL (3.4-5.0) L 02/28/19 06:40
[2019-02-28] MEDS: Enoxaparin 40 MG/0.4 ML SYR SC (16:32)
[2019-02-28] MEDS: Gabapentin 400 MG CAP 800 MG PO (19:41)
[2019-02-28] MEDS: Pantoprazole 40 MG TABCR PO (19:41)
[2019-02-28] MEDS: Norethindrone 5 MG TAB PO (19:42)
[2019-02-28] MEDS: Insulin Glargine 300 UNITS/3 ML PEN 15 UNITS SC (21:13)
[2019-03-01] VITALS (9 sets, daily range): BP systolic 145–158; BP diastolic 80–95; PULSE 77–85; RESP 2–20; TEMP 36.3–37.2; O2SAT 90–95
[2019-03-01 07:32] LABS: Anion Gap 6.9 mmol/L (3-11); BUN 29 mg/dL (7-18); CO2 33.1 mmol/L (21.0-32.0); CREATININE 0.62 mg/dL (0.55-1.02); Calcium 10.5 mg/dL (8.5-10.1); Chloride 103 mmol/L (98-107); Glucose 92 mg/dL (74-106); Potassium 3.5 mmol/L (3.5-5.1); Sodium 143 mmol/L (136-145)
[2019-03-01] MEDS: Doxycycline Hyclate 100 MG CAP PO ×2 (08:13→19:59)
[2019-03-01] MEDS: oxyCODONE 10 MG TAB PO (08:13)
[2019-03-01] MEDS: Lisinopril 20 MG TAB 40 MG PO (08:13)
[2019-03-01] MEDS: ARIPiprazole 5 MG TAB 10 MG PO (08:13)
[2019-03-01] MEDS: Acetaminophen 325 MG TAB PO (08:13)
[2019-03-01] MEDS: buPROPion-XL 150 MG TABCR 300 MG PO (08:14)
[2019-03-01] MEDS: predniSONE 20 MG TAB 60 MG PO (08:14)
[2019-03-01] MEDS: Methylphenidate 10 MG TAB 20 MG PO ×2 (08:15→13:28)
[2019-03-01] MEDS: Atenolol 50 MG TAB PO (08:15)
[2019-03-01] MEDS: Furosemide 40 MG/4 ML VIAL IVP ×2 (08:15→15:52)
[2019-03-01] MEDS: Fenofibrate, Micronized 145 MG TAB PO (08:15)
[2019-03-01] MEDS: Normal Saline Flush 10 ML SYR IVP ×2 (08:20→15:53)
[2019-03-01] MEDS: Albuterol 2.5 MG/3 ML INH SOLN VIAL UPD (09:22)
[2019-03-01] MEDS: Budesonide/Formoterol 160/4.5 6 GM 60 PUFF INH IH ×2 (09:54→19:59)
[2019-03-01] MEDS: Insulin Aspart 300 UNITS/3 ML PEN SC ×2 (11:58→17:13)
--- NOTE | 2019-03-01 11:59 | W.NUTCONSULT ---
Date of service: 03/01/19 Time of Service: 11:59 Nutritional Consult ASSESSMENT: 48 year old female admitted with CHF, COPD and DM. PMH: NIDDM, morbid obesity. Following CHO diet with adequate intake. Recent A1C 6.1% indicating good blood sugar control. At high nutritional risk in view of elevated BMI. provided Rosibel contact information for outpatient weight management counseling. INTERVENTION: provided contact info for outpatient weight management MONITORING AND EVALUATION: weight, po intake and blood sugar control Time Spent in Nutritional Counseling and Treatment: 5 min spent face to face
--- NOTE | 2019-03-01 14:10 | CHAPLAIN ---
Rosibel was sitting up in bed working with a respiratory therapist when I visited. She said she is feeling better than when she was admitted on 02/27, but is not feeling as well as usual. Her significant other, Douglas, was with her. I explained my role and offered support.
--- NOTE | 2019-03-01 14:13 | W.PM.PROGNOT ---
Date of Service Date of service: 03/01/19 Time of Service: 14:13 Assessment and Plan Assessment and plan (1) Acute exacerbation of CHF (congestive heart failure): Status: Acute Assessment and plan: While her presentation was triggered by upper respiratory infection, I still think CHF is the major contributor to her hypoxia and respiratory distress. History of preserved ejection fraction and pulmonary hypertension on echocardiogram from April 2018. Her Is/Os are more negative overnight last night and her weight is down today, indicating improved response to increased dose of furosemide. I will continue this therapy. She is tachycardia improved, though still intermittently tachycardic with bronchodilator therapy. Low risk for PE per wells criteria, but may reconsider CT if still hypoxic despite good diuresis. (2) COPD with acute exacerbation: Status: Acute Assessment and plan: While the patient did not respond as well as we would like to nebulizers, I do think there is an element of COPD exacerbation contributing to her presentation. Continue oral prednisone and bronchodilators as needed, as well as doxycycline. She had not been getting her controller Flovent. I have started her on Symbicort and she received teaching from respiratory therapy. Of note, her previous problem list lists asthma. She likely has a mixed picture. Also of note that her 2 siblings also had early diagnoses of COPD. Alpha-1 antitrypsin testing may be considered as an outpatient. (3) Tobacco abuse: Status: Acute Assessment and plan: Patient does appear to be motivated. We will give her nicotine replacement via Nicotrol inhaler here. She is not done well with the patch in the past. She is taking bupropion and will continue this. She may consider addition of Chantix as well. Continue to encourage. (4) Diabetes mellitus: Status: Chronic Assessment and plan: Has been controlled, only getting glipizide as an outpatient. A1c 6.1 indicating risk of glipizide may be outweighing benefit. Continue low-dose basal insulin and sensitive sliding scale while inpatient on steroids. (5) Primary osteoarthritis of both knees: Status: Chronic Assessment and plan: Patient is on chronic pain medication including oxycodone for knee and back pain. She is also on gabapentin and an SNRI. We will continue these for now, no change. (6) HELEN (obstructive sleep apnea): Status: Chronic Assessment and plan: Likely contributing to her pulmonary hypertension and overnight hypoxia. (7) HTN (hypertension): Status: None Assessment and plan: Continue to monitor on her outpatient therapy. We will try to avoid escalating doses while inpatient. (8) Hypercalcemia: Status: Acute Assessment and plan: This does appear new, and with the lower than normal albumin, a corrected level is higher. No clear symptoms, and the levels are still in the mild range, as persisted today. I did order serum PTH, which can be followed as outpatient. With lung disease may also consider sarcoid, though the x-ray does not show classic perihilar lymph nodes. (9) DVT prophylaxis: Status: Acute Assessment and plan: Low molecular weight heparin for DVT prophylaxis (10) Discharge planning issues: Status: Acute Assessment and plan: Patient is stable on the medical floor. She is full code Subjective Subjective Patient reports: feels better, tolerating liquids well, tolerating a regular diet and bowel movement; denies diarrhea, nausea, vomiting and fever Interval history since last seen: 24hr: Furosemide increased to 40 mg IV twice daily Continues on 3 L per nasal cannula supplemental oxygen States she feels a little better each day with improved shortness of breath, though she still not back to her normal baseline. She confirms she is urinating more. She denies fevers and has been eating and drinking okay. Smoking cravings controlled with Nicotrol inhaler. No chest pain or palpitations. No chest pain or palpitations. Exam Narrative Exam Narrative: General: Alert and oriented, sitting in bed speaking in full sentences with oxygen via nasal cannula. HEENT: Conjunctive are clear. Mucous membranes moist. Lungs: Diffusely diminished with some slight crackles on inhalation in the bases bilaterally. No wheezing today. No respiratory distress at rest. Cardiovascular: Regular rate and rhythm, no murmurs gallops or rubs. Abdomen: Active bowel sounds, soft, non-tender. Large pannus but not distended. Extremities: No cyanosis clubbing or edema. Objective Objective Clinical Data: Abnormal lab results 03/01/19 Range/Units 07:03 Carbon Dioxide 33.1 H (21.0-32.0) mmol/L BUN 29 H (7-18) mg/dL Calcium 10.5 H (8.5-10.1) mg/dL Vital Signs Temperature 37.2 C 03/01/19 07:50 Temperature Source Tympanic 03/01/19 07:50 Pulse 80 03/01/19 09:32 Pulse Rhythm Regular 03/01/19 08:26 Pulse 119 H 02/27/19 13:45 Respiratory Rate 20 03/01/19 09:32 Respiratory Effort Labored 03/01/19 09:18 Respiratory Depth Deep 03/01/19 09:18 Respiratory Pattern Normal 03/01/19 09:18 Blood Pressure 158/89 H 03/01/19 07:50 Blood Pressure Mean 102 02/27/19 13:45 Blood Pressure Position Sitting 02/27/19 09:13 Pulse Oximetry 94 L 03/01/19 13:31 Oxygen Delivery Method Nasal Cannula 03/01/19 13:31 Oxygen Flow Rate 3 03/01/19 13:31 Pain Level 7 03/01/19 08:13 Comment 02/28/19 06:50 Intake & Output 02/28/19 03/01/19 03/01/19 23:59 11:59 23:59 Intake Total 875 / 1900 1420.013 / 1900.013 480 / 1900.013 Output Total 1550 / 3450 1999 Balance -675 / -1550 -579.987 / -99.987 480 / -99.987 Weight 115.8 kg Intake: IV 0.013 / 0.013 Oral 875 / 1900 1420 / 1900 480 / 1900 Output: Urine 1550 / 3450 1999 Other: Urine Color Yellow Yellow Urine Appearance Clear Clear Urine Odor Normal Normal Stool Size Small Voiding Methods Bedside Commode Bedside Commode Laboratory Results WBC 12.70 k/cumm (4.4-10.8) H 02/27/19 09:30 RBC 5.90 m/cumm (4.00-5.20) H 02/27/19 09:30 Hgb 17.6 g/dL (12.0-15.5) H 02/27/19 09:30 Hct 54.2 % (36.0-46.0) H 02/27/19 09:30 MCV 91.9 fL (80-95) 02/27/19 09:30 MCH 29.8 pg (27.0-33.0) 02/27/19 09:30 MCHC 32.5 g/dL (32.0-36.0) 02/27/19 09:30 RDW 15.4 % (11.7-14.6) H 02/27/19 09:30 Plt Count 247 x1000/uL (130-400) 02/27/19 09:30 MPV 9.6 fL (8.0-11.0) 02/27/19 09:30 Immature Gran % 0.4 % 02/27/19 09:30 Neutrophils % 71.3 02/27/19 09:30 Lymphocytes % 18.3 02/27/19 09:30 Monocytes % 9.8 02/27/19 09:30 Eosinophils % 0.0 02/27/19 09:30 Basophils % 0.2 02/27/19 09:30 Absolute Neutrophils 9.06 k/cumm (1.2-6.7) H 02/27/19 09:30 Absolute Lymphocytes 2.32 k/cumm (1.2-3.4) 02/27/19 09:30 Absolute Monocytes 1.24 k/cumm (0.11-0.7) H 02/27/19 09:30 Absolute Eosinophils 0.00 k/cumm (0.0-0.7) 02/27/19 09:30 Absolute Basophils 0.03 k/cumm (0.0-0.2) 02/27/19 09:30 PT 10.8 sec (9.3-11.0) 02/27/19 09:30 INR 1.1 (0.9-1.1) 02/27/19 09:30 APTT 31.2 sec (21.0-31.4) 02/27/19 09:30 Sample Site Cancelled 02/27/19 12:24 pCO2 Cancelled 02/27/19 12:24 pO2 Cancelled 02/27/19 12:24 O2 Saturation Cancelled 02/27/19 12:24 ABG pH Cancelled 02/27/19 12:24 ABG HCO3 Cancelled 02/27/19 12:24 ABG Total CO2 Cancelled 02/27/19 12:24 ABG Base Excess Cancelled 02/27/19 12:24 Oxygen Liter Flow Cancelled 02/27/19 12:24 FiO2 Cancelled 02/27/19 12:24 Sodium 143 mmol/L (136-145) 03/01/19 07:03 Potassium 3.5 mmol/L (3.5-5.1) 03/01/19 07:03 Chloride 103 mmol/L (98-107) 03/01/19 07:03 Carbon Dioxide 33.1 mmol/L (21.0-32.0) H 03/01/19 07:03 Anion Gap 6.9 mmol/L (3-11) 03/01/19 07:03 BUN 29 mg/dL (7-18) H 03/01/19 07:03 Creatinine 0.62 mg/dL (0.55-1.02) 03/01/19 07:03 Estimated GFR/1.73 m2 >= 60.00 (mL/min/1.73m2) 03/01/19 07:03 Glucose 92 mg/dL (74-106) D 03/01/19 07:03 Hemoglobin A1c 6.1 % (3.8-5.6) H 02/28/19 06:40 Lactate 1.2 mmol/L (0.6-1.4) 02/27/19 09:30 Calcium 10.5 mg/dL (8.5-10.1) H 03/01/19 07:03 Magnesium 1.9 mg/dL (1.8-2.4) 02/28/19 06:40 Total Bilirubin 0.4 mg/dL (0.2-1.0) 02/28/19 06:40 AST 13 U/L (15-37) L 02/28/19 06:40 ALT 14 U/L (14-59) 02/28/19 06:40 Alkaline Phosphatase 65 U/L (46-116) 02/28/19 06:40 Troponin I < 0.05 ng/Ml (<0.06) 02/27/19 09:30 NT-Pro-B Natriuret Pep 1267 pg/mL (<300) H 02/27/19 09:30 Total Protein 7.3 g/dL (6.4-8.2) 02/28/19 06:40 Albumin 2.9 g/dL (3.4-5.0) L 02/28/19 06:40
--- NOTE | 2019-03-01 14:31 | CMPROGNOTE_ITS ---
- If Service Date Differs Date of service: 03/01/19 Time of Service: 14:31 Care Management Progress Note S/O: Rosibel is sitting on the side of the bed when CM comes to meet with her. She is pleasant and easily engages in conversation. Her electric arc furnace operator Douglas is present in the room. Rosibel reports she is feeling better and hopes to go home tomorrow. She continues to be on constant oxygen but shares she is now only requiring 3 L. At baseline, Rosibel uses 2 L of O2 but only during the night. CM provides Rosibel with an Advance Directive at her request and signs her up for the [facility] portal. CM will continue to follow. A: Rosibel is a 48 year old female admitted to [facility] on 02/28/2019 for acute COPD exacerbation, history of CHF, and morbid obesity. P: Rosibel will be discharged home when medically cleared by provider. Her electric arc furnace operator, Douglas, will transport her home via private vehicle when ready. Home O2 needs to be further evaluated by RT. CM will continue to support patient and to support discharge planning considerations.
--- NOTE | 2019-03-01 14:51 | RESPIRATORY ---
Spoke with patient concerning her sleep apnea and was informed she has an appt next month to get set-up with a CPAP or BiPap device.
[2019-03-01] MEDS: Enoxaparin 40 MG/0.4 ML SYR SC (15:52)
[2019-03-01] MEDS: Pantoprazole 40 MG TABCR PO (19:59)
[2019-03-01] MEDS: Gabapentin 400 MG CAP 800 MG PO (19:59)
[2019-03-01] MEDS: Norethindrone 5 MG TAB PO (20:01)
[2019-03-01] MEDS: Insulin Glargine 300 UNITS/3 ML PEN 15 UNITS SC (21:57)
[2019-03-02] VITALS (10 sets, daily range): BP systolic 135–153; BP diastolic 89–94; PULSE 72–80; RESP 16–26; TEMP 36–37; O2SAT 88–95
[2019-03-02 06:58] LABS: Platelet Count 257 x1000/uL (130-400)
[2019-03-02] MEDS: Lisinopril 20 MG TAB 40 MG PO (08:41)
[2019-03-02] MEDS: ARIPiprazole 5 MG TAB 10 MG PO (08:42)
[2019-03-02] MEDS: buPROPion-XL 150 MG TABCR 300 MG PO (08:42)
[2019-03-02] MEDS: Methylphenidate 10 MG TAB 20 MG PO ×2 (08:43→12:14)
[2019-03-02] MEDS: Fenofibrate, Micronized 145 MG TAB PO (08:43)
[2019-03-02] MEDS: predniSONE 20 MG TAB 60 MG PO (08:43)
[2019-03-02] MEDS: Atenolol 50 MG TAB PO (08:43)
[2019-03-02] MEDS: Doxycycline Hyclate 100 MG CAP PO ×2 (08:44→20:24)
[2019-03-02] MEDS: Furosemide 40 MG/4 ML VIAL IVP ×2 (08:46→16:43)
[2019-03-02] MEDS: Nystatin POWDER 15 GM JAR TP ×2 (08:46→20:24)
[2019-03-02] MEDS: Normal Saline Flush 10 ML SYR IVP ×2 (08:47→16:45)
[2019-03-02] MEDS: Budesonide/Formoterol 160/4.5 6 GM 60 PUFF INH IH ×2 (10:28→20:24)
[2019-03-02 10:54] LABS: Parathyroid Hormone,Intact 45 pg/mL (19-88)
--- NOTE | 2019-03-02 11:44 | W.NUTCONSULT ---
Date of service: 03/02/19 Time of Service: 11:44 Nutritional Consult ASSESSMENT: 48 year old female admitted with adnormal uterine bleeding. PMH: morbid obesity (BMI 46.8), mood disorder, HTN, CHF, COPD, Heart Failure. Following CHO/Heart healthy Diet with adequate intake. Spoke to Rosibel about weight management and reviewed principles. Rosibel is interested in following up outpatient. provided her my contact information. At high nutritional risk in view of high BMI putting Rosibel at risk for multiple co morbidities. NUTRITIONAL DIAGNOSIS: morbid obesity INTERVENTION: provided contact information for outpatient counseling. Time Spent in Nutritional Counseling and Treatment: 15 min spent face to face
[2019-03-02] MEDS: Insulin Aspart 300 UNITS/3 ML PEN SC ×2 (12:13→17:10)
--- NOTE | 2019-03-02 12:56 | W.PM.PROGNOT ---
Date of Service Date of service: 03/02/19 Time of Service: 11:00 Assessment and Plan Assessment and plan (1) Acute exacerbation of CHF (congestive heart failure): Status: Acute Assessment and plan: History of preserved ejection fraction and pulmonary hypertension on echocardiogram from April 2018, will repeat echo tomorrow morning. Her Is/Os remain negative again overnight but her weight slightly up. (2) COPD with acute exacerbation: Status: Acute Assessment and plan: respiratory status slowly improving with treatment. no wheezing noted, weaning off oxygen. doxycycline day 4/5, taper prednisone. continue updrafts. respiratory therapy following and will add acapella today (3) Tobacco abuse: Status: Acute Assessment and plan: continue nicotine replacement via Nicotrol inhaler here. She is not done well with the patch in the past. She is taking bupropion and will continue this. She may consider addition of Chantix as well. Continue to encourage. (4) Diabetes mellitus: Status: Chronic Assessment and plan: Has been controlled, only getting glipizide as an outpatient. A1c 6.1 indicating risk of glipizide may be outweighing benefit. Continue low-dose basal insulin and sensitive sliding scale while inpatient on steroids. (5) Primary osteoarthritis of both knees: Status: Chronic Assessment and plan: Patient is on chronic pain medication including oxycodone for knee and back pain. She is also on gabapentin and an SNRI. We will continue these for now, no change. (6) HELEN (obstructive sleep apnea): Status: Chronic Assessment and plan: Likely contributing to her pulmonary hypertension and overnight hypoxia. will have outpatient sleep study as scheduled. (7) HTN (hypertension): Status: None Assessment and plan: stable, continue to monitor, continue home medications (8) Hypercalcemia: Status: Acute (9) DVT prophylaxis: Status: Acute Assessment and plan: stable. (10) Discharge planning issues: Status: Acute Assessment and plan: anticipate discharge tomorrow after echo if she remains medically stable, no services anticipated. Subjective Subjective Patient reports: no new complaints, feels better, tolerating a regular diet and afebrile Interval history since last seen: patient continues to slowly improve with diuresis, weaning down oxygen. has been afebrile and hemodynamically stable. voiding well with net negative I&O daily since admission. has a moist cough, unable to raise sputum. respiratory working with her and have added acapella to her treatment plan. Exam Const General: cooperative, no acute distress and disheveled (older appearing than stated age) Nutritional Appearance: obese Orientation: alert, awake and oriented x3 HENMT Head: normal to inspection, normocephalic and atraumatic Mouth: moist mucous membranes Teeth and gingiva: poor dentition (missing teeth) Chest Chest: normal inspection of the chest Resp Effort & Inspection: normal respiratory effort, able to speak in complete sentences and cough Quality of cough: other (moist, unable to raise sputum) Auscultation: diminished lung sounds bilaterally throughout (distant d/t body habitus) Cardio Rate: regular rate Rhythm: regular rhythm GI Inspection: normal to inspection Palpation: soft Auscultation: normal bowel sounds Skin General skin exam: no rashes or lesions noted Extrem General: normal to inspection, full ROM and edema Laterality: bilateral Objective Objective Clinical Data: Vital Signs Temperature 37.0 C 03/02/19 08:00 Temperature Source Tympanic 03/02/19 08:00 Pulse 80 03/02/19 08:00 Pulse Rhythm Regular 03/02/19 10:44 Pulse 119 H 02/27/19 13:45 Respiratory Rate 16 03/02/19 10:30 Respiratory Effort 03/02/19 11:11 Respiratory Depth Shallow 03/02/19 11:11 Respiratory Pattern Normal 03/02/19 11:11 Blood Pressure 150/89 H 03/02/19 08:00 Blood Pressure Mean 102 02/27/19 13:45 Blood Pressure Position Sitting 02/27/19 09:13 Pulse Oximetry 93 L 03/02/19 11:10 Oxygen Delivery Method Nasal Cannula 03/02/19 11:10 Oxygen Flow Rate 2 03/02/19 11:10 Pain Level 0 03/02/19 08:00 Comment 02/28/19 06:50 Intake & Output 03/01/19 03/02/19 03/02/19 23:59 11:59 23:59 Intake Total 480.013 / 1900.026 460 / 460 Output Total 1600 / 3600 1900 / 1900 Balance -1119.987 / -1699.974 -1440 / -1440 Weight 116.1 kg Intake: IV 0.013 / 0.026 Oral 480 / 1900 460 / 460 Output: Urine 1600 / 3600 1900 / 1900 Other: Urine Color Yellow Pale Yellow Urine Appearance Clear Clear Urine Odor Normal None Voiding Methods Bedside Commode Bedside Commode Laboratory Results WBC 12.70 k/cumm (4.4-10.8) H 02/27/19 09:30 RBC 5.90 m/cumm (4.00-5.20) H 02/27/19 09:30 Hgb 17.6 g/dL (12.0-15.5) H 02/27/19 09:30 Hct 54.2 % (36.0-46.0) H 02/27/19 09:30 MCV 91.9 fL (80-95) 02/27/19 09:30 MCH 29.8 pg (27.0-33.0) 02/27/19 09:30 MCHC 32.5 g/dL (32.0-36.0) 02/27/19 09:30 RDW 15.4 % (11.7-14.6) H 02/27/19 09:30 Plt Count 257 x1000/uL (130-400) 03/02/19 06:01 MPV 9.6 fL (8.0-11.0) 02/27/19 09:30 Immature Gran % 0.4 % 02/27/19 09:30 Neutrophils % 71.3 02/27/19 09:30 Lymphocytes % 18.3 02/27/19 09:30 Monocytes % 9.8 02/27/19 09:30 Eosinophils % 0.0 02/27/19 09:30 Basophils % 0.2 02/27/19 09:30 Absolute Neutrophils 9.06 k/cumm (1.2-6.7) H 02/27/19 09:30 Absolute Lymphocytes 2.32 k/cumm (1.2-3.4) 02/27/19 09:30 Absolute Monocytes 1.24 k/cumm (0.11-0.7) H 02/27/19 09:30 Absolute Eosinophils 0.00 k/cumm (0.0-0.7) 02/27/19 09:30 Absolute Basophils 0.03 k/cumm (0.0-0.2) 02/27/19 09:30 PT 10.8 sec (9.3-11.0) 02/27/19 09:30 INR 1.1 (0.9-1.1) 02/27/19 09:30 APTT 31.2 sec (21.0-31.4) 02/27/19 09:30 Sample Site Cancelled 02/27/19 12:24 pCO2 Cancelled 02/27/19 12:24 pO2 Cancelled 02/27/19 12:24 O2 Saturation Cancelled 02/27/19 12:24 ABG pH Cancelled 02/27/19 12:24 ABG HCO3 Cancelled 02/27/19 12:24 ABG Total CO2 Cancelled 02/27/19 12:24 ABG Base Excess Cancelled 02/27/19 12:24 Oxygen Liter Flow Cancelled 02/27/19 12:24 FiO2 Cancelled 02/27/19 12:24 Sodium 143 mmol/L (136-145) 03/01/19 07:03 Potassium 3.5 mmol/L (3.5-5.1) 03/01/19 07:03 Chloride 103 mmol/L (98-107) 03/01/19 07:03 Carbon Dioxide 33.1 mmol/L (21.0-32.0) H 03/01/19 07:03 Anion Gap 6.9 mmol/L (3-11) 03/01/19 07:03 BUN 29 mg/dL (7-18) H 03/01/19 07:03 Creatinine 0.62 mg/dL (0.55-1.02) 03/01/19 07:03 Estimated GFR/1.73 m2 >= 60.00 (mL/min/1.73m2) 03/01/19 07:03 Glucose 92 mg/dL (74-106) D 03/01/19 07:03 Hemoglobin A1c 6.1 % (3.8-5.6) H 02/28/19 06:40 Lactate 1.2 mmol/L (0.6-1.4) 02/27/19 09:30 Calcium 10.5 mg/dL (8.5-10.1) H 03/01/19 07:03 Magnesium 1.9 mg/dL (1.8-2.4) 02/28/19 06:40 Total Bilirubin 0.4 mg/dL (0.2-1.0) 02/28/19 06:40 AST 13 U/L (15-37) L 02/28/19 06:40 ALT 14 U/L (14-59) 02/28/19 06:40 Alkaline Phosphatase 65 U/L (46-116) 02/28/19 06:40 Troponin I < 0.05 ng/Ml (<0.06) 02/27/19 09:30 NT-Pro-B Natriuret Pep 1267 pg/mL (<300) H 02/27/19 09:30 Total Protein 7.3 g/dL (6.4-8.2) 02/28/19 06:40 Albumin 2.9 g/dL (3.4-5.0) L 02/28/19 06:40
--- NOTE | 2019-03-02 14:19 | CHAPLAIN ---
I had a short visit with Rosibel before she went walking with an [employer] today. Rosibel is disappointed not to be going home today but she said she would prefer to be here longer than to have to return. She currently doesn't use oxygen during the day, although she is here, and she would like to not use it during the day when she returns home.
[2019-03-02 16:22] LABS: Abs Immature Grans 0.04 k/cumm (0.0-0.09); Absolute Basophil Count 0.02 k/cumm (0.0-0.2); Absolute Lymphocyte Count 2.02 k/cumm (1.2-3.4); Absolute Monocyte Count 0.31 k/cumm (0.11-0.7); Absolute Neutrophil Count 6.88 k/cumm (1.2-6.7); Basophils % 0.2; HCT 55.5 % (36.0-46.0); HGB 17.7 g/dL (12.0-15.5); Immature Grans % 0.4 %; Lymphocytes % 21.8; Mean Corp. HGB Concentration 31.9 g/dL (32.0-36.0); Mean Corpuscular Hemoglobin 29.5 pg (27.0-33.0); Mean Corpuscular Volume 92.3 fL (80-95); Mean Platelet Volume 9.7 fL (8.0-11.0); Monocytes % 3.3; Neutrophils % 74.3; Platelet Count 245 x1000/uL (130-400); RBC 6.01 m/cumm (4.00-5.20); RBC Distribution Width 14.9 % (11.7-14.6); White Blood Cell Count 9.27 k/cumm (4.4-10.8)
[2019-03-02 16:37] LABS: Anion Gap 6.4 mmol/L (3-11); BUN 38 mg/dL (7-18); CO2 32.6 mmol/L (21.0-32.0); CREATININE 1.14 mg/dL (0.55-1.02); Calcium 10.8 mg/dL (8.5-10.1); Chloride 97 mmol/L (98-107); Estimated GFR 50.66 (mL/min/1.73m2); Glucose 285 mg/dL (74-106); NT-proBNP 164 pg/mL (<300); Potassium 4.4 mmol/L (3.5-5.1); Sodium 136 mmol/L (136-145)
--- NOTE | 2019-03-02 16:42 | PDOC.CMPRO ---
- If Service Date Differs Date of service: 03/02/19 Time of Service: 16:42 Care Management Progress Note S/O: Rosibel is sitting in a chair when CM meets with her today. She reports she continues to require O2 during the day but shares her O2 has been weaned down to 1 L. She is scheduled for a repeat echocardiogram tomorrow morning. She is looking forward to returning home in the near future. CM will continue to follow. A: Rosibel is a 48 year old female admitted to [facility] on 02/28/2019 for acute COPD exacerbation and history of CHF. P: Rosibel will be discharged home when deemed ready for discharge by provider. Anticipate resumption of home O2 through [employer] at time of discharge. She will be transported home by a friend via private vehicle when ready. CM will continue to follow.
[2019-03-02] MEDS: Enoxaparin 40 MG/0.4 ML SYR SC (16:43)
[2019-03-02] MEDS: metOLazone 2.5 MG TAB 5 MG PO (16:43)
[2019-03-02] MEDS: Gabapentin 400 MG CAP 800 MG PO (20:23)
[2019-03-02] MEDS: Norethindrone 5 MG TAB PO (20:23)
[2019-03-02] MEDS: Pantoprazole 40 MG TABCR PO (20:23)
[2019-03-02] MEDS: Acetaminophen 325 MG TAB PO (20:57)
[2019-03-02] MEDS: Insulin Glargine 300 UNITS/3 ML PEN 15 UNITS SC (20:58)
[2019-03-03 03:44] VITALS: O2SAT 93
[2019-03-03 04:08] VITALS: BP 163/97; PULSE 80; RESP 20; TEMP 36.4; O2SAT 93
[2019-03-03 06:50] LABS: BUN 38 mg/dL (7-18); CREATININE 0.82 mg/dL (0.55-1.02); Calcium 10.6 mg/dL (8.5-10.1); Chloride 99 mmol/L (98-107); Glucose 140 mg/dL (74-106); NT-proBNP 140 pg/mL (<300); Potassium 3.6 mmol/L (3.5-5.1); Sodium 141 mmol/L (136-145)
[2019-03-03] MEDS: buPROPion-XL 150 MG TABCR 300 MG PO (07:44)
[2019-03-03] MEDS: Atenolol 50 MG TAB PO (07:44)
[2019-03-03] MEDS: ARIPiprazole 5 MG TAB 10 MG PO (07:44)
[2019-03-03] MEDS: Fenofibrate, Micronized 145 MG TAB PO (07:44)
[2019-03-03] MEDS: Acetaminophen 325 MG TAB PO (07:45)
[2019-03-03] MEDS: Lisinopril 20 MG TAB 40 MG PO (07:45)
[2019-03-03] MEDS: predniSONE 20 MG TAB 40 MG PO (08:05)
[2019-03-03] MEDS: Budesonide/Formoterol 160/4.5 6 GM 60 PUFF INH IH (08:10)
[2019-03-03 08:12] VITALS: BP 139/82; PULSE 74; RESP 16; TEMP 36.3; O2SAT 91; O2SAT 93
[2019-03-03] MEDS: Doxycycline Hyclate 100 MG CAP PO (08:43)
[2019-03-03] MEDS: Methylphenidate 10 MG TAB 20 MG PO ×2 (08:44→12:26)
[2019-03-03 10:20] VITALS: O2SAT 95
[2019-03-03] MEDS: Nystatin POWDER 15 GM JAR TP (10:36)
[2019-03-03] MEDS: Furosemide 40 MG/4 ML VIAL IVP (10:36)
--- NOTE | 2019-03-03 12:18 | W.PM.DS.N ---
Date of service: 03/03/19 Time of Service: 11:30 DS: Diagnosis Discharge Diagnosis (1) Acute exacerbation of CHF (congestive heart failure): Status: Acute (2) COPD with acute exacerbation: Status: Acute (3) Tobacco abuse: Status: Acute (4) Diabetes mellitus: Status: Chronic (5) Primary osteoarthritis of both knees: Status: Chronic (6) HELEN (obstructive sleep apnea): Status: Chronic (7) HTN (hypertension): Status: None (8) Hypercalcemia: Status: Acute (9) DVT prophylaxis: Status: Acute (10) Discharge planning issues: Status: Acute Discharge Plan Disposition Patient Disposition: HOME Condition: Stable Discharge Details Chief Complaint: SOB Clinical Impression: Acute exacerbation of chronic obstructive pulmonary disease, History of heart failure Reason For Visit: ACUTE COPD EXACERBATION, HISTORY OF CHF, MORBID OB Admit Date/Time: 02/28/19 09:53 Admit Provider: Gopi Llanes Attending Provider: Gopi Llanes Primary Care Provider: Maria Del Carmen Nogueira ED Provider: Madiha Jarvis Hospital Course Hospital Course: This is a 46-year-old female with history of BMI of 47, COPD with active smoking, congestive heart failure with preserved ejection fraction, and sleep apnea who presented to the ED with 1 week history of progressive shortness of breath and cough. Patient states she was in her normal state of health until February 19, when she felt ill with headache and vomiting. The next day, she had cold symptoms including runny nose and cough. She developed fevers and the cough was somewhat productive. She treated herself at home with nebulized albuterol, but this did not help much. She did not try giving herself her as needed Lasix because she did not note increased swelling. After not sleeping and feeling more short of breath and run down, she presented to the emergency room for evaluation. work up in the ED showed an elevated BNP at 1200. She had no evidence of pneumonia. While her presentation was triggered by upper respiratory infection, it appeared more consistent with CHF as a major contributor to her hypoxia and respiratory distress. She has received 2 doses of furosemide in the emergency room and has been diuresing well. She was requiring oxygen during the day which is not consistent with home as she only uses at night. with diuresis we were able to wean her off at rest but she still required 1-2 liters to maintain sats in low 90 with activity. We gave her a one time dose of metalozone which did produce a large output of almost 4 liters on day 3. Kidney functions and electrolytes remained stable. Her BNP improved from 1200 to 140. She will be discharged home to continue 5 day course of doxycycline and prednisone burst. Her flovent was discontinued and we started her on symbicort. she also had an echo with results pending at discharge, to be reviewed with pcp at follow up. An echocardiogram from April 2018 showed a preserved ejection fraction and signs of diastolic dysfunction and pulmonary hypertension. we will discharge her on scheduled daily lasix 20 mg until her follow up appointment. She will have labs drawn prior to. She has been afebrile and hemodynamically stable. she was advised to return here sooner for new or worsening symptoms. Home Meds and New Rx's Prescriptions: New doxycycline hyclate 100 mg Capsule 100 mg PO BID Qty: 6 RF: 0 prednisone 20 mg Tablet 40 mg PO DAILY Qty: 8 RF: 0 Symbicort 160-4.5 mcg/actuation Hfa Aerosol Inhaler 2 puff inhalation BID Qty: 1 RF: 0 furosemide 20 mg tablet 20 mg PO DAILY Qty: 30 RF: 0 Continued desvenlafaxine succinate [Pristiq] 100 MG tablet extended release 24 hr 100 mg PO DAILY RF: 0 albuterol sulfate 8.5 GM HFA aerosol inhaler 1 - 2 puff Inhalation Q4H PRN RF: 0 norethindrone acetate 5 MG tablet 5 mg PO DAILY Qty: 90 RF: 4 gabapentin 300 MG capsule 800 mg PO DAILY RF: 0 atenolol 50 MG tablet 50 mg PO DAILY RF: 0 aripiprazole [Abilify] 10 MG tablet 10 mg PO DAILY RF: 0 nystatin 1 EACH powder 1 ea PO BID RF: 0 fenofibrate 160 MG tablet 145 mg PO DAILY RF: 0 Protonix [address] for susp in packet 40 mg PO DAILY RF: 0 PROVENTIL HFA 18 GM HFA.AER.AD 2 puff Inhalation Q4H PRN RF: 0 lisinopril 20 MG tablet 40 mg PO DAILY RF: 0 oxycodone-acetaminophen 10-325 mg Tablet 1 tab PO Q4H PRN (Reason: Pain) RF: 0 glipizide 2.5 mg Tablet Extended Release 24hr 2.5 mg PO BID RF: 0 bupropion HCl [Wellbutrin XL] 300 mg Tablet Extended Release 24 Hr 300 mg PO DAILY RF: 0 Narcan 4 mg/actuation [place],Non-Aerosol 4 mg Intranasal PRN PRN (Reason: excessive sedation) RF: 0 methylphenidate HCl [Ritalin] 20 mg Tablet 20 mg PO BID RF: 0 sucralfate [Carafate] 1 gram tablet 1 gm PO BID Qty: 20 RF: 0 Discontinued Flovent HFA 12 GM HFA aerosol inhaler 2 puff Inhalation BID Qty: 1 RF: 3 Discharge Instructions Instructions: Heart Failure (DC), Sleep Apnea (DC), COPD (Chronic Obstructive Pulmonary Disease) (DC) Stand Alone Forms: Nursing Discharge Form Referrals: Maria Del Carmen Nogueira PA [Primary Care Provider] - 03/05/19 11:15 am Activity:: Activity as Tolerated Equipment/Supplies:: No Equipment Needed Diet:: Carb Counting Discharge Orders Discharge Orders: Discharge Order (Routine); Ordered 03/03/19 Ordered By: Mar Scott Other Ambulatory Orders: Basic Metabolic Panel (Routine) Timeframe: [id number] Location: None Selected Ordered By: Mar Scott DS: Summary Status at Discharge Functional status at discharge: independent ambulation Overall status at discharge: patient is progressing back to baseline Mental Status: mental status grossly normal Speech and Movement: speech and movement normal Mood: congruent mood Affect: normal affect Exam Const General: cooperative, healthy appearing, no acute distress and ill appearing chronically Nutritional Appearance: obese Orientation: alert, awake and oriented x3 HENMT Head: normal to inspection, normocephalic and atraumatic Mouth: oral mucosae normal and moist mucous membranes Resp Effort & Inspection: normal respiratory effort and able to speak in complete sentences Auscultation: diminished lung sounds bilaterally (body habitus) throughout and rales bilaterally at the base (faint, scattered) Cardio Rate: regular rate Rhythm: regular rhythm GI Inspection: large pannus and obesity Palpation: soft Skin General skin exam: no rashes or lesions noted Neuro General: alert, awake and oriented x3 Cognition: normal cognition Speech: speech normal Gait: normal gait Extrem General: normal to inspection, full ROM and no pedal edema Psych Mental Status: mental status grossly normal Speech and Movement: speech and movement normal Mood: congruent mood Affect: normal affect DS: Data Vitals/I&O Vitals and I&O: Vital Signs Temperature 36.3 C L 03/03/19 08:12 Temperature Source Tympanic 03/03/19 08:12 Pulse 74 03/03/19 08:12 Pulse Rhythm Regular 03/03/19 10:21 Pulse 119 H 02/27/19 13:45 Respiratory Rate 16 03/03/19 08:12 Respiratory Effort 03/03/19 10:21 Respiratory Depth Normal 03/03/19 10:21 Respiratory Pattern Normal 03/03/19 10:21 Blood Pressure 139/82 03/03/19 08:12 Blood Pressure Mean 102 02/27/19 13:45 Blood Pressure Position Sitting 02/27/19 09:13 Pulse Oximetry 95 03/03/19 10:20 Oxygen Delivery Method Nasal Cannula 03/03/19 10:20 Oxygen Flow Rate 2 03/03/19 10:20 Pain Level 3 03/03/19 08:45 Comment 02/28/19 06:50 Intake & Output 03/02/19 03/03/19 03/03/19 23:59 11:59 23:59 Intake Total 960.013 / 1420.013 450 / 450 Output Total 2700 / 4950 600 / 600 Balance -1739.987 / -3529.987 -150 / -150 Weight 114.1 kg Intake: IV 0.013 / 0.013 Oral 960 / 1420 450 / 450 Output: Urine 2700 / 4950 600 / 600 Other: Urine Color Yellow Yellow Urine Appearance Clear Clear Urine Odor Normal Voiding Methods Bedside Commode Bedside Commode Data Completed and Pending Labs on day of discharge: Labs from last 24 hours 03/03/19 03/02/19 03/02/19 06:05 15:57 15:57 WBC 9.27 RBC 6.01 H Hgb 17.7 H Hct 55.5 H MCV 92.3 MCH 29.5 MCHC 31.9 L RDW 14.9 H Plt Count 245 MPV 9.7 Immature Gran % 0.4 Neutrophils % 74.3 Lymphocytes % 21.8 Monocytes % 3.3 Eosinophils % 0.0 Basophils % 0.2 Absolute Neutrophils 6.88 H Absolute Lymphocytes 2.02 Absolute Monocytes 0.31 Absolute Eosinophils 0.00 Absolute Basophils 0.02 Sodium 141 136 Potassium 3.6 4.4 D Chloride 99 97 L Carbon Dioxide 35.0 H 32.6 H Anion Gap 7.0 6.4 BUN 38 H 38 H D Creatinine 0.82 1.14 H D Estimated GFR/1.73 m2 >= 60.00 50.66 Glucose 140 H D 285 H D Calcium 10.6 H 10.8 H NT-Pro-B Natriuret Pep 140 164 PTH Intact 03/01/19 07:03 WBC RBC Hgb Hct MCV MCH MCHC RDW Plt Count MPV Immature Gran % Neutrophils % Lymphocytes % Monocytes % Eosinophils % Basophils % Absolute Neutrophils Absolute Lymphocytes Absolute Monocytes Absolute Eosinophils Absolute Basophils Sodium Potassium Chloride Carbon Dioxide Anion Gap BUN Creatinine Estimated GFR/1.73 m2 Glucose Calcium NT-Pro-B Natriuret Pep PTH Intact 45 PFSH Medical History Chronic atrophic candidosis COPD (chronic obstructive pulmonary disease) Depression with anxiety Diabetes mellitus type 2 in obese HTN (hypertension) Hyperlipidemia Morbid obesity HELEN (obstructive sleep apnea) Smoker Surgical History Bilat partial saplinectomy Cholecystectomy (12/07/15) LAPAROSCOPIC WITH INTRAOPERATIVE CHOLANGIOGRAM/[facility] Ligation of fallopian tube Open Carpal Tunnel release Repair of umbilical hernia Tonsillectomy and adenoidectomy Family History (Updated 02/27/19 @ 16:29 by Gopi Llanes) Other COPD (chronic obstructive pulmonary disease) Cancer Social History (Updated 02/27/19 @ 16:31 by Gopi Llanes) Smoking/Tobacco Use Status: Current every day Tobacco Type: cigarettes Quit status: considering quitting Second Hand Exposure: Yes Alcohol Intake: never Drug use: Never Substance use type: does not use, opiates and painkillers Current gender identity: female Do you feel safe at home: Yes Do you feel safe in your relationship?: Yes Additional Social history: Lives with her male partner, who also smokes. Disabled.
[2019-03-03] MEDS: Insulin Aspart 300 UNITS/3 ML PEN SC (12:26)
--- NOTE | 2019-03-03 14:18 | PDOC.CMDIS ---
- If Service Date Differs Date of service: 03/03/19 Time of Service: 14:18 LACE Index Scoring Tool - Questions: Length of Stay (in days): 3 Acuity (Admit via E.D.?): Yes Comorbidities: Diabetes w/o Complication, Chronic Pulmonary Disease E.D. Visits: 4 - Answers: Total Score: 13 Risk of Readmission: High Risk Care Management Discharge Reason for Hospitalization: Acute COPD Exacerbation, CHF, Morbid Obesity Discharge Plan: Rosibel is discharged home with no new services and resumption of home O2 through [facility] [place]. She will follow up with her primary care physician and with her plan of care as directed, including medication recommendations. Her friend, Douglas, is transporting her home via private vehicle. Patient/Family Education Needs: Nursing will review discharge instructions with Rosibel re medications and follow up appointments. Rosibel is able to verbalize reason for hospitalization and how to manage care at home.
== END 2019-03-03 13:45 | disposition home or self-care (01) | DRG 190 ==
LOC: ER 12:52 → MS 13:59
PROVIDERS: General Practice; Admitting Provider Family Medicine; Emergency Provider Physician Assistant; PCP Physician Assistant Medical; Visit Provider Internal Medicine
DX: J44.1 Chronic obstructive pulmonary disease with (acute) exacerbation (principal); I50.33 Acute on chronic diastolic (congestive) heart failure; I27.23 Pulmonary hypertension due to lung diseases and hypoxia; J45.909 Unspecified asthma, uncomplicated; M17.0 Bilateral primary osteoarthritis of knee; G47.33 Obstructive sleep apnea (adult) (pediatric); I11.0 Hypertensive heart disease with heart failure; E83.42 Hypomagnesemia; E83.52 Hypercalcemia; F90.9 Attention-deficit hyperactivity disorder, unspecified type; F32.9 Major depressive disorder, single episode, unspecified; N93.8 Other specified abnormal uterine and vaginal bleeding; Z97.5 Presence of (intrauterine) contraceptive device; K21.9 Gastro-esophageal reflux disease without esophagitis; R09.02 Hypoxemia; Z79.4 Long term (current) use of insulin
CPT/HCPCS: 36410; 36415; 80048; 80053; 82805; 87081; 87449; 93005; 94640; 94644; 96361; 96374; 96375; 96376; 99222; 99232; 99233; 99239; 99285; J1650; 71045; 83036; 83605; 83735; 83880; 83970; 84484; 85025; 85049; 85610; 85730; 93010; 93306; 94667; G0378; J1940; J1941; J2930; J7512; J7611; J7613; J7620

== ENCOUNTER 2019-03-08 15:16 | Outpatient (REF) | payer MEDICARE, MEDICAID, SELFPAY ==
[2019-03-08 21:51] LABS: Anion Gap 8.2 mmol/L (3-11); BUN 18 mg/dL (7-18); CO2 29.8 mmol/L (21.0-32.0); CREATININE 0.76 mg/dL (0.55-1.02); Calcium 9.6 mg/dL (8.5-10.1); Chloride 101 mmol/L (98-107); Glucose 230 mg/dL (74-106); Potassium 4.3 mmol/L (3.5-5.1); Sodium 139 mmol/L (136-145)
== END 2019-03-08 15:36 ==
LOC: NCHCN 15:16
PROVIDERS: PCP Physician Assistant Medical; Visit Provider Physician Assistant Medical
DX: I10 Essential (primary) hypertension (principal)
CPT/HCPCS: 80048

== ENCOUNTER 2019-08-09 12:52 | Outpatient (REF) | payer MEDICARE, MEDICAID, SELFPAY ==
[2019-08-10 09:39] LABS: Anion Gap 7.9 mmol/L (3-11); BUN 16 mg/dL (7-18); CO2 27.1 mmol/L (21.0-32.0); CREATININE 0.88 mg/dL (0.55-1.02); Calcium 9.7 mg/dL (8.5-10.1); Chloride 103 mmol/L (98-107); Glucose 116 mg/dL (74-106); Potassium 4.2 mmol/L (3.5-5.1); Sodium 138 mmol/L (136-145)
== END 2019-08-09 13:12 ==
LOC: NCHCN 12:52
PROVIDERS: PCP Physician Assistant Medical; Visit Provider Physician Assistant Medical
DX: I10 Essential (primary) hypertension (principal); I50.9 Heart failure, unspecified
CPT/HCPCS: 80048

== ENCOUNTER 2019-10-12 12:04 | Outpatient (REF) | payer MEDICARE, MEDICAID, SELFPAY ==
--- NOTE | 2019-10-12 11:15 | PAPFT_PTH ---
PATIENT: Rosibel Dinh LOC: [facility] U#:[id number] AGE/SX: 49/F ROOM: RE10/12/[address]: Starla Calvert NP : 1970 BED: DIS: 10/12/2019 SPEC #: [id number] RECD: 10/12/19 16:24 STATUS: CHARITY REQ #: [id number] CHAVEZ: 10/12/19 11:[address]: Strala Calvert NP DEPT: [facility] Cytology RECD BY: Olivia Walker ENTERED: 10/12/19 16:24 SP TYPE: PAPFT OTHR DR: Maria Del Carmen Nogueira Tissues: 1 - CX/ENDOCX FOR PAP SMEARS Procedures: PAP THIN PREP/UVM Screening HPV DNA PROBE Comments: [id number] (CHLAMYDIA/GC)
[2019-10-13 11:53] LABS: Chlamydia Result Negative (Negative); GC Result Negative (Negative)
== END 2019-10-12 12:24 ==
LOC: LBN 12:04
PROVIDERS: PCP Physician Assistant Medical; Visit Provider Nurse Practitioner Women's Health
DX: Z11.3 Encounter for screening for infections with a predominantly sexual mode of transmission (principal); Z12.4 Encounter for screening for malignant neoplasm of cervix; Z11.51 Encounter for screening for human papillomavirus (HPV)
CPT/HCPCS: 87491; 87591; 88142; 87624

== ENCOUNTER 2019-10-27 01:12 | Outpatient (CLI) | payer MEDICARE, MEDICAID, SELFPAY ==
--- NOTE | 2019-10-27 07:30 | DI.US_ITS ---
EXAM: US PELVIS TRANSVAGINAL CLINICAL HISTORY: abnl uterine bleeding,endometrial hyperplasia,n93.9,n85.01 TECHNIQUE: Transabdominal and transvaginal imaging was performed using standard protocol. COMPARISON: CT CT RENAL COLIC WO from 11/15/2018 FINDINGS: KIDNEYS: Kidneys are symmetric in size. No evidence of renal calculi. No evidence of hydronephrosis. No renal mass or cyst identified. The transabdominal images limited by lack of urinary bladder distension. UTERUS: Anteverted. 8.1 x 4.3 x 5.8 cm Endometrium: 8 millimeters in thickness. Mildly head heterogeneous without focal visible mass. Myometrium: Heterogeneous. Cervix: Multiple nabothian cysts OVARIES: Right: Cyst or mass: 13 millimeter cyst Left: Cyst or mass: 14 millimeter cyst DOPPLER: Color: Symmetric and uniform flow to both ovaries. No hyperemia. Duplex: Normal ovarian arterial waveforms visualized. CUL-DE-SAC: Free fluid: None. IMPRESSION: 1. Heterogeneous myometrium could indicate adenomyosis. The endometrial stripe is mildly heterogeneo us.. 2. Unremarkable bilateral ovaries. DATA REPOSITORY:
== END 2019-10-27 01:32 ==
PROVIDERS: PCP Physician Assistant Medical; Visit Provider Nurse Practitioner Women's Health
DX: N93.9 Abnormal uterine and vaginal bleeding, unspecified (principal); N85.01 Benign endometrial hyperplasia
CPT/HCPCS: 76830; 76856

== ENCOUNTER 2019-11-03 12:18 | Outpatient (REF) | payer MEDICARE, MEDICAID, SELFPAY ==
--- NOTE | 2019-11-03 10:30 | ENDOMET_PTH ---
PATIENT: Rosibel Dinh LOC: [facility]#:[id number] AGE/SX: 49/F ROOM: RE11/03/[address]: Santana Thornton MD : 1970 BED: DIS: 11/03/2019 SPEC #: [id number] RECD: 11/03/19 12:27 STATUS: CHARITY REQ #: [id number] CHAVEZ: 11/03/19 10:[address]: Santana Thornton DEPT: Surgical Specimen RECD BY: Cherise Hernandez ENTERED: 11/03/19 12:33 SP TYPE: Endomet OTHR DR: Maria Del Carmen Nogueira Tissues: 1 - ENDOMETRIUM BX/CURRETTE Procedures: GROSS AND MICRO LEVEL 4 Comments: [id number]
== END 2019-11-03 12:38 ==
LOC: LBN 12:18
PROVIDERS: PCP Physician Assistant Medical; Visit Provider Obstetrics & Gynecology
DX: N93.8 Other specified abnormal uterine and vaginal bleeding (principal); N85.00 Endometrial hyperplasia, unspecified
CPT/HCPCS: 88305

== ENCOUNTER 2019-11-12 20:40 | Outpatient (REF) | payer MEDICARE, MEDICAID, SELFPAY ==
[2019-11-12 22:10] LABS: ALT 18 U/L (14-59); AST 14 U/L (15-37); Albumin 3.7 g/dL (3.4-5.0); Alkaline Phosphatase 66 U/L (46-116); Anion Gap 9.3 mmol/L (3-11); BUN 14 mg/dL (7-18); Bilirubin, Total 0.5 mg/dL (0.2-1.0); CO2 26.7 mmol/L (21.0-32.0); CREATININE 0.66 mg/dL (0.55-1.02); Calcium 9.2 mg/dL (8.5-10.1); Calculated LDL 78 mg/dL (<100); Chloride 101 mmol/L (98-107); Cholesterol 151 mg/dL (<200); Glucose 202 mg/dL (74-106); HDL Cholesterol 30 mg/dL (40-60); Potassium 4.1 mmol/L (3.5-5.1); Sodium 137 mmol/L (136-145); Total Protein 6.8 g/dL (6.4-8.2); Triglyceride 219 mg/dL (<150)
== END 2019-11-12 21:00 ==
LOC: NCHCN 20:40
PROVIDERS: PCP Physician Assistant Medical; Visit Provider Physician Assistant Medical
DX: E78.5 Hyperlipidemia, unspecified (principal); E11.9 Type 2 diabetes mellitus without complications
CPT/HCPCS: 80053; 80061

== ENCOUNTER 2020-12-12 19:26 | Outpatient (REF) | payer MEDICARE, MEDICAID, SELFPAY ==
[2020-12-12 21:27] LABS: Abs Immature Grans 0.05 10^3/uL (0.0-0.06); Absolute Basophil Count 0.03 10^3/uL (0.0-0.2); Absolute Lymphocyte Count 3.92 10^3/uL (1.2-3.4); Absolute Neutrophil Count 4.38 10^3/uL (1.2-6.7); Basophils % 0.3; HCT 48.3 % (36.0-46.0); HGB 15.9 g/dL (11.2-15.7); Immature Grans % 0.6; Lymphocytes % 43.2; MCH 31.1 pg (27.0-33.0); MCHC 32.9 % (32.0-36.0); MCV 94.3 fL (80-95); MPV 9.9 fL (8.0-11.0); Monocytes % 7.7; Neutrophils % 48.2; Nucleated RBC 0 %; Platelet Count 204 10^3/uL (130-400); RBC 5.12 10^6/uL (3.93-5.22); RDW 13.2 % (11.7-14.6); RDW-SD 45.9 fL; WBC 9.08 10^3/uL (4.4-10.8)
[2020-12-12 21:43] LABS: ALT 18 U/L (14-59); AST 13 U/L (15-37); Albumin 4.3 g/dL (3.4-5.0); Alkaline Phosphatase 60 U/L (46-116); Anion Gap 7.1 mmol/L (3-11); BUN 13 mg/dL (7-18); Bilirubin, Total 0.5 mg/dL (0.2-1.0); CO2 31.9 mmol/L (21.0-32.0); CREATININE 0.8 mg/dL (0.55-1.02); Calcium 9.9 mg/dL (8.5-10.1); Chloride 103 mmol/L (98-107); Glucose 141 mg/dL (74-106); Potassium 4.4 mmol/L (3.5-5.1); Sodium 142 mmol/L (136-145); Total Protein 7.5 g/dL (6.4-8.2)
== END 2020-12-12 19:27 | disposition home or self-care (01) ==
LOC: LBN 19:26
PROVIDERS: PCP Physician Assistant Medical; Visit Provider Family Medicine
DX: R10.2 Pelvic and perineal pain (principal)
CPT/HCPCS: 80053; 85025; 87086

== ENCOUNTER 2020-12-14 01:32 | Outpatient (CLI) | payer MEDICARE, MEDICAID, SELFPAY ==
--- NOTE | 2020-12-14 | DI.CT_ITS ---
Exam(s) CT ABDOMEN PELVIS W EXAM: CT ABDOMEN PELVIS W CLINICAL HISTORY: ABD PAIN, R10.84. TECHNIQUE: Imaging Protocol: Axial computed tomography images with coronal and sagittal reformatted images were created and reviewed CONTRAST MATERIAL: Intravenous: Omnipaque 100cc Oral: Yes COMPARISON: CT CT RENAL COLIC WO from 11/15/2018 FINDINGS: VISUALIZED LUNG BASES: Mild increased markings in lingular segment of the anterior left lung base. T here are no pleural effusions ABDOMEN: There is no ascites. LIVER: There are no focal hepatic lesions evident. Mild steatosis evident. GALLBLADDER/BILIARY: The gallbladder surgically absent. CBD is not dilated. PANCREAS: No evidence of pancreatic mass nor dilatation of the pancreatic duct. SPLEEN: Spleen size upper normal. No intrasplenic masses evident . The splenic and portal veins are patent ADRENALS: There are no significant adrenal masses. KIDNEYS:No cysts evident. No solid renal masses. There is a nonobstructive 3 millimeter calculus the midpole level of the right kidney. No calculi in the left kidney. No hydronephrosis. No hydrouret er. No obvious abnormality in the urinary bladder. ABDOMINAL AORTA: Abdominal aorta is not enlarged. LYMPH NODES:There is no retroperitoneal nor paraaortic adenopathy. ABDOMINAL WALL: No evidence of significant anterior abdominal wall nor inguinal hernia. GI: There is no evidence of bowel obstruction, free air, nor abscess. PELVIS: GI: No evidence of appendicitis.No evidence of sigmoid diverticulitis. LYMPH NODES: There is no intrapelvic nor inguinal adenopathy. REPRODUCTIVE: There is a T-shaped IUD in the uterine canal. Appears to be in good position. No abno rmal adnexal masses. No free fluid. URINARY BLADDER: No calculi nor obvious masses evident OSSEOUS: Multilevel chronic degenerative disc disease in the lower lumbosacral spine.. Also mild deg enerative anterolisthesis of L4 upon L5. Also chronic advanced multilevel degenerative disc disease in the lower thoracic spine. IMPRESSION: 1. There is a nonobstructive 3 millimeter calculus at the midpole the right kidney. No other calculi seen. No hydronephrosis. No obvious abnormality in the nondistended urinary bladder. 2. The gallbladder surgically absent. The biliary tree is not dilated. 3. Spleen size upper normal. Hepatic steatosis. 4. RADIATION DOSE DELIVERED: 1,648.58mGy.cm Total DLP DATA REPOSITORY: All CT scans at this facility are submitted to the National Radiology Data Registry (NRDR) Dose Index Registry (DIR) with the [employer] (ACR). RADIATION OPTIMIZATION: All CT scans at this facility use at least one of these dose optimization te chniques: automated exposure control; mA and/or kV adjustment per patient size (includes targeted exa ms where dose is matched to clinical indication); or iterative reconstruction.
[2020-12-14] MEDS: Omnipaque 350 MG/ML 100 ML BTL IJ (10:56)
[2020-12-14] MEDS: Normal Saline - Diluent 50 ML VIAL IV (10:57)
[2020-12-14] MEDS: Normal Saline Flush 10 ML SYR IVP (10:58)
[2020-12-14] MEDS: Breeza Beverage 473 ML BTL 946 ML PO (10:59)
[2020-12-14] MEDS: Omnipaque 350 MG/ML 50 ML BTL IJ (11:00)
== END 2020-12-14 01:52 ==
PROVIDERS: PCP Physician Assistant Medical; Visit Provider Family Medicine
DX: R10.84 Generalized abdominal pain (principal); N20.0 Calculus of kidney; K76.0 Fatty (change of) liver, not elsewhere classified
CPT/HCPCS: 74177; J3490; Q9967

== ENCOUNTER 2021-01-08 15:03 | Outpatient (REF) | payer MEDICARE, MEDICAID, SELFPAY ==
[2021-01-08 19:47] LABS: Hemoglobin A1C 6.5 % (<5.7)
[2021-01-08 19:55] LABS: ALT 19 U/L (14-59); AST 16 U/L (15-37); Albumin 3.8 g/dL (3.4-5.0); Alkaline Phosphatase 63 U/L (46-116); Anion Gap 8.1 mmol/L (3-11); BUN 14 mg/dL (7-18); Bilirubin, Total 0.5 mg/dL (0.2-1.0); CO2 28.9 mmol/L (21.0-32.0); CREATININE 0.7 mg/dL (0.55-1.02); Calcium 9.3 mg/dL (8.5-10.1); Calculated LDL 83 mg/dL (<100); Chloride 104 mmol/L (98-107); Cholesterol 162 mg/dL (<200); Glucose 135 mg/dL (74-106); HDL Cholesterol 31 mg/dL (40-60); Potassium 4.1 mmol/L (3.5-5.1); Sodium 141 mmol/L (136-145); Total Protein 6.8 g/dL (6.4-8.2); Triglyceride 243 mg/dL (<150)
== END 2021-01-08 15:04 | disposition home or self-care (01) ==
LOC: NCHCN 15:03
PROVIDERS: PCP Physician Assistant Medical; Visit Provider Physician Assistant Medical
DX: E11.9 Type 2 diabetes mellitus without complications (principal); E78.5 Hyperlipidemia, unspecified; I10 Essential (primary) hypertension
CPT/HCPCS: 80053; 80061; 83036

== ENCOUNTER 2021-01-14 17:15 | Inpatient (IN) | payer MEDICARE, MEDICAID, SELFPAY ==
[2021-01-14] VITALS (62 sets, daily range): BP systolic 127–210; BP diastolic 86–127; PULSE 85–108; RESP 4–49; TEMP 31–36.6; O2SAT 85–96
--- NOTE | 2021-01-14 17:15 | RT.EKG_ITS ---
APPROVED REPORT Exam: Resting ECG Reason for Exam: sob Patient Location: E HR:94 bpm ECG Measurements Heart Rate 94 AXIS WA 178 P 50 QRSd 103 QRS 45 QT 378 T 66 QTc 467 Conclusion Sinus rhythm. Multiple ventricular premature complexes.
--- NOTE | 2021-01-14 17:30 | DI.RAD_ITS ---
Exam(s) XR PORTABLE CHEST AP EXAM: XR PORTABLE CHEST AP CLINICAL HISTORY: shortness of breath, copd. TECHNIQUE: 2D digital imaging was performed. COMPARISON: CR,XR XR PORTABLE CHEST AP from 02/27/2019 CR,XR XR PORTABLE CHEST AP from 02/27/[address] ABDOMEN PELVIS W from 12/14/[address] ABDOMEN PELVIS W from 12/14/2020 FINDINGS: Cardiomegaly again noted.. The mediastinum is not widened. There is infiltrate in the left lower lobe retrocardiac region. Also infiltrate in the lower right l milla field. No large pleural effusions. Possible small amount left pleural fluid. IMPRESSION: Bilateral infiltrates. Most prominent in the left lower lobe. Probable left pleural effusion. If clinically indicated follow-up CT scan can be performed for added sensitivity and specificity DATA REPOSITORY: RADIATION DOSE DELIVERED: All CT scans at this facility use at least one of these dose optimization techniques: automated exposure control; mA and/or kV adjustment per patient size (includes targeted e xams where dose is matched to clinical indication); or iterative reconstruction.
[2021-01-14 17:52] LABS: BE (Venous) 7 mmol/L (-2-3); HCO3 (Venous) 32 mmol/L (23-28); O2 Sat (Venous) 84 %; TCO2 (Venous) 28 mmol/L (24-29); pCO2 (Venous) 57 mmHg (41-51); pH (Venous) 7.36 (7.31-7.41); pO2 (Venous) 43 mmHg
[2021-01-14] MEDS: methylPREDNISolone SUCC 125 MG VIAL IVP (17:53)
[2021-01-14 17:56] LABS: Lactate 1.1 mmol/L (0.6-1.4)
[2021-01-14 18:04] LABS: Abs Immature Grans 0.07 10^3/uL (0.0-0.06); Absolute Basophil Count 0.03 10^3/uL (0.0-0.2); Absolute Eosinophil Count 0.26 10^3/uL (0.0-0.7); Absolute Monocyte Count 0.95 10^3/uL (0.1-0.8); Absolute Neutrophil Count 6.89 10^3/uL (1.2-6.7); Basophils % 0.3; Eosinophils % 2.8; HCT 50.2 % (36.0-46.0); HGB 16.3 g/dL (11.2-15.7); Immature Grans % 0.7; Lymphocytes % 12.8; MCHC 32.5 % (32.0-36.0); MCV 92.4 fL (80-95); MPV 9.3 fL (8.0-11.0); Monocytes % 10.1; Neutrophils % 73.3; Nucleated RBC 0 %; Platelet Count 182 10^3/uL (130-400); RBC 5.43 10^6/uL (3.93-5.22); RDW 13.1 % (11.7-14.6); RDW-SD 44.4 fL
[2021-01-14 18:13] LABS: Source Nasal/Nares
--- NOTE | 2021-01-14 18:15 | NUR.NOTE ---
Nursing Note: MEME [phone]
[2021-01-14 18:18] LABS: ALT 17 U/L (14-59); AST 20 U/L (15-37); Albumin 3.9 g/dL (3.4-5.0); Alkaline Phosphatase 82 U/L (46-116); Anion Gap 7.2 mmol/L (3-11); BUN 10 mg/dL (7-18); Bilirubin, Total 0.8 mg/dL (0.2-1.0); CO2 30.8 mmol/L (21.0-32.0); CREATININE 0.6 mg/dL (0.55-1.02); Chloride 101 mmol/L (98-107); Glucose 150 mg/dL (74-106); NT-proBNP 915 pg/mL (<300); Potassium 3.9 mmol/L (3.5-5.1); Sodium 139 mmol/L (136-145)
[2021-01-14 18:19] LABS: Troponin I < 0.05 ng/mL (<0.06)
--- NOTE | 2021-01-14 18:38 | W.ED.GENAD ---
Discharge Plan Disposition Patient Disposition: [facility] INPATIENT Condition: Serious Discharge Details Clinical Impression: HTN (hypertension), COPD with acute exacerbation, Acute exacerbation of CHF (congestive heart failure) Primary Care Provider: Maria Del Carmen Nogueira ED Provider: Olivia Kyle Home Meds and New Rx's Prescriptions: No Action rosuvastatin 40 mg tablet 40 mg PO HS RF: 0 desvenlafaxine succinate [Pristiq] 100 MG tablet extended release 24 hr 100 mg PO DAILY RF: 0 albuterol sulfate 8.5 GM HFA aerosol inhaler 1 - 2 puff Inhalation Q4H PRN RF: 0 gabapentin 300 MG capsule 900 mg PO DAILY RF: 0 atenolol 50 MG tablet 50 mg PO DAILY RF: 0 aripiprazole [Abilify] 10 MG tablet 10 mg PO DAILY RF: 0 nystatin 1 EACH powder 1 ea PO BID RF: 0 fenofibrate 160 MG tablet 145 mg PO DAILY RF: 0 pantoprazole [Protonix] [address] for susp in packet 40 mg PO DAILY RF: 0 PROVENTIL HFA 18 GM HFA.AER.AD 2 puff Inhalation Q4H PRN RF: 0 lisinopril 20 MG tablet 40 mg PO DAILY RF: 0 norethindrone acetate 5 mg tablet 5 mg PO DAILY Qty: 60 RF: 0 oxycodone-acetaminophen 10-325 mg Tablet 1 tab PO Q4H PRN (Reason: Pain) RF: 0 bupropion HCl [Wellbutrin XL] 300 mg Tablet Extended Release 24 Hr 300 mg PO DAILY RF: 0 Narcan 4 mg/actuation [place],Non-Aerosol 4 mg Intranasal PRN PRN (Reason: excessive sedation) RF: 0 methylphenidate HCl [Ritalin] 20 mg Tablet 20 mg PO BID RF: 0 furosemide 20 mg tablet 20 mg PO DAILY PRN (Reason: Edema) RF: 0 insulin aspart U-100 [Novolog Flexpen U-100 Insulin] 100 unit/mL (3 mL) insulin pen SUBCUT RF: 0 Medical Decision Making Patient I suspect is having COPD exacerbation, I believe she has chronic bronchitis clinically, her chest x-ray does not show emphysematous changes She also has retrocardiac infiltrate with bilateral interstitial infiltrates, will treat for pneumonia with ceftriaxone and doxycycline As she has cardiomegaly with a BNP of 900, will also give 20 mg of IV Lasix She is tolerating 2 L of oxygen saturations of 91% but very tachypneic, ranging from 30-40, did a trial of 5 which patient was unable to tolerate Try high flow out of concern for decompensation initially patient declined intubation should she need it, however on reassessment she does wish to be full CODE STATUS Her Covid swab is negative She is vaccinated for Covid 19 Her diagnostic labs are reassuring aside from BMP with elevated at 900, troponin negative, EKG without acute abnormality VBG shows very mild hypercarbia, pH stable Clinically low suspicion for pulmonary embolism given comorbidities and clinical exam Case discussed with Dr. Holland, willing to admit patient, on 4 L of oxygen, baseline 2, typical oxygenation between 80 and 90% on 2 L of oxygen at home per patient She is alert, oriented, capacity, she is agreeable to admission at this time Lactate negative Lower suspicion for sepsis clinically Medical Records Medical records reviewed: Yes I reviewed the patient's medical records. Lab Data Lab results reviewed: Yes I reviewed the patient's lab results. HPI General Mode of arrival: ambulatory. Date/Time Provider Initiated Documentation: 01/14/21 17:19. Limitations to Documentation: no limitations. Information obtained by: patient. HPI Narrative: This 50-year-old female with history of COPD, GERD, hypercalcemia, hypomagnesemia, hypertension presents with report of shortness of breath. She states that she has been symptomatic for the past 3 days. She is Covid vaccinated. She denies any known sick contacts. She has had cough. She states that she is on baseline 2 L of oxygen. Today she was having increased work of breathing and shortness of breath despite her oxygen use and nebs which is why she presents. She denies any fever or chills. She denies any chest discomfort. She denies any weight gain. She denies orthopnea Related Data Home Medications Medication Instructions Recorded Confirmed albuterol sulfate 1 - 2 puff INHALATION Q4H PRN 03/21/14 01/14/21 inhaler desvenlafaxine succinate [Pristiq] 100 mg PO DAILY tab-cap 03/21/14 01/14/21 Proventil Hfa 2 puff INHALATION Q4H PRN inhaler 04/22/17 11/03/19 aripiprazole [Abilify] 10 mg PO DAILY tab-cap 04/22/17 01/14/21 atenolol 50 mg PO DAILY tab-cap 04/22/17 01/14/21 fenofibrate 145 mg PO DAILY tab-cap 04/22/17 01/14/21 gabapentin 900 mg PO DAILY 04/22/17 11/03/19 nystatin 1 ea PO BID script 04/22/17 01/14/21 pantoprazole [Protonix] 40 mg PO DAILY 04/22/17 01/14/21 lisinopril 40 mg PO DAILY tab-cap 04/23/17 01/14/21 Narcan 4 mg INTRANASAL PRN PRN 04/29/18 01/14/21 bupropion HCl [Wellbutrin XL] 300 mg PO DAILY 04/29/18 01/14/21 oxycodone-acetaminophen 1 tab PO Q4H PRN 04/29/18 01/14/21 methylphenidate HCl [Ritalin] 20 mg PO BID 11/15/18 01/14/21 rosuvastatin 40 mg tablet 40 mg PO HS tab 04/12/19 01/14/21 norethindrone acetate 5 mg tablet 5 mg PO DAILY #60 tab 11/09/19 furosemide 20 mg PO DAILY PRN 01/14/21 01/14/21 insulin aspart U-100 [Novolog SUBCUT 01/14/21 Flexpen U-100 Insulin] Previous Rx's Medication Instructions Recorded norethindrone acetate 5 mg tablet 5 mg PO DAILY #60 tab 11/09/19 Allergies Allergy/AdvReac Type Severity Reaction Status Date / Time amoxicillin Allergy Skin Rash Unverified 10/29/19 10:29 Sulfa (Sulfonamide Allergy Unverified 10/29/19 10:29 Antibiotics) Antiobiotics AdvReac Intermediate Rash,vomitt Uncoded 10/29/19 10:29 ing General Stated Complaint: SOB HEATHER: 2 Review of Systems All systems reviewed & are unremarkable except as noted in HPI and below PFSH Active Problem List Contraceptive management (Acute) GERD (gastroesophageal reflux disease) (Chronic) Abnormal uterine bleeding (Acute) Mood disorder (Acute) Hypercalcemia (Acute) Hypomagnesemia (Acute) Discharge planning issues (Acute) HELEN (obstructive sleep apnea) (Chronic) DVT prophylaxis (Acute) Acute exacerbation of CHF (congestive heart failure) (Acute) Tobacco abuse (Acute) Diabetes mellitus (Chronic) COPD with acute exacerbation (Acute) Primary osteoarthritis of both knees (Chronic 05/01/15) Medical History Chronic atrophic candidosis Depression with anxiety Diabetes mellitus type 2 in obese Hyperlipidemia Morbid obesity HELEN (obstructive sleep apnea) Smoker Surgical History Bilat partial saplinectomy Cholecystectomy (12/07/15) LAPAROSCOPIC WITH INTRAOPERATIVE CHOLANGIOGRAM/[facility] Ligation of fallopian tube Open Carpal Tunnel release Repair of umbilical hernia Tonsillectomy and adenoidectomy Family History Other COPD (chronic obstructive pulmonary disease) Cancer Social History Smoking/Tobacco Use Status: Current every day Tobacco Type: cigarettes Quit status: considering quitting Second Hand Exposure: Yes Smoking risk assessment performed?: Yes Alcohol Intake: never Drug use: Never Substance use type: does not use, opiates and painkillers Current gender identity: female Do you feel safe at home: Yes Do you feel safe in your relationship?: Yes Additional Social history: Lives with her male partner, who also smokes. Disabled. History History 5 Para 2 Hx # Term Pregnancies Multiple births Hx # Pregnancies Ectopic pregnancies AB induced Hx Number of Living Children AB spontaneous Exam Const General: cooperative, comfortable and no acute distress HENMT Head: normal to inspection Eyes General: appearance normal, both eyes and all related structures Neck Other: no stridor Resp Other: Diminished lung sounds bilaterally, respiratory distress, Cardio Rate: tachycardic Rhythm: regular rhythm GI Other: Morbidly obese abdomen, nontender Skin General skin exam: no rashes or lesions noted Neuro General: patient alert and patient oriented x3 Extrem Other: 1+ edema, distal pulses intact Psych Appearance: well kempt Course Vital Signs Vital signs: Vital Signs Temperature 35.9 C L 01/14/21 17:20 Pulse 91 H 01/14/21 17:20 Pulse Oximetry 94 01/14/21 17:20 Temperature 35.9 C L 01/14/21 17:20 Temperature Source Skin 01/14/21 17:20 Pulse 87 01/14/21 18:16 Pulse 90 01/14/21 18:20 Respiratory Rate 31 H 01/14/21 18:20 Respiratory Effort Accessory Muscle Use 01/14/21 18:10 Respiratory Depth Shallow 01/14/21 18:10 Respiratory Pattern Tachypnea 01/14/21 18:10 Blood Pressure 143/99 H 01/14/21 18:16 Blood Pressure Mean 106 01/14/21 18:16 Pulse Oximetry 93 01/14/21 18:20 Oxygen Delivery Method Nasal Cannula 01/14/21 17:20 Oxygen Flow Rate 3 01/14/21 17:20 Pain Level 6 01/14/21 17:20 Comment 01/14/21 17:20 Lab/Test Results Lab/Test Results: Laboratory Tests Range/Units 01/14/21 01/14/21 01/14/21 17:40 17:40 17:40 WBC (4.4-10.8) 10^3/uL RBC (3.93-5.22) 10^6/uL Hgb (11.2-15.7) g/dL Hct (36.0-46.0) % MCV (80-95) fL MCH (27.0-33.0) pg MCHC (32.0-36.0) % RDW (11.7-14.6) % Plt Count (130-400) 10^3/uL MPV (8.0-11.0) fL Immature Gran % Neutrophils % Lymphocytes % Monocytes % Eosinophils % Basophils % Nucleated RBC % % Absolute Neutrophils (1.2-6.7) 10^3/uL Absolute Lymphocytes (1.2-3.4) 10^3/uL Absolute Monocytes (0.1-0.8) 10^3/uL Absolute Eosinophils (0.0-0.7) 10^3/uL Absolute Basophils (0.0-0.2) 10^3/uL VBG pH (7.31-7.41) 7.36 VBG pCO2 (41-51) mmHg 57 H VBG pO2 mmHg 43 VBG HCO3 (23-28) mmol/L 32 H VBG Total CO2 (24-29) mmol/L 28 VBG O2 Saturation % 84 VBG Base Excess (-2-3) mmol/L 7 H VBG Lactate (0.6-1.4) mmol/L 1.1 Sodium (136-145) mmol/L 139 Potassium (3.5-5.1) mmol/L 3.9 Chloride (98-107) mmol/L 101 Carbon Dioxide (21.0-32.0) mmol/L 30.8 Anion Gap (3-11) mmol/L 7.2 BUN (7-18) mg/dL 10 Creatinine (0.55-1.02) mg/dL 0.6 Estimated GFR/1.73 m2 (mL/min/1.73m2) >= 60.00 Glucose (74-106) mg/dL 150 H Calcium (8.5-10.1) mg/dL 10.0 Total Bilirubin (0.2-1.0) mg/dL 0.8 AST (15-37) U/L 20 ALT (14-59) U/L 17 Alkaline Phosphatase (46-116) U/L 82 Troponin I (<0.06) ng/mL < 0.05 NT-Pro-B Natriuret Pep (<300) pg/mL 915 H Total Protein (6.4-8.2) g/dL 8.0 Albumin (3.4-5.0) g/dL 3.9 COVID-19 Source Range/Units 01/14/21 01/14/21 17:40 18:00 WBC (4.4-10.8) 10^3/uL 9.40 RBC (3.93-5.22) 10^6/uL 5.43 H Hgb (11.2-15.7) g/dL 16.3 H Hct (36.0-46.0) % 50.2 H MCV (80-95) fL 92.4 MCH (27.0-33.0) pg 30.0 MCHC (32.0-36.0) % 32.5 RDW (11.7-14.6) % 13.1 Plt Count (130-400) 10^3/uL 182 MPV (8.0-11.0) fL 9.3 Immature Gran % 0.7 Neutrophils % 73.3 Lymphocytes % 12.8 Monocytes % 10.1 Eosinophils % 2.8 Basophils % 0.3 Nucleated RBC % % 0 Absolute Neutrophils (1.2-6.7) 10^3/uL 6.89 H Absolute Lymphocytes (1.2-3.4) 10^3/uL 1.20 Absolute Monocytes (0.1-0.8) 10^3/uL 0.95 H Absolute Eosinophils (0.0-0.7) 10^3/uL 0.26 Absolute Basophils (0.0-0.2) 10^3/uL 0.03 VBG pH (7.31-7.41) VBG pCO2 (41-51) mmHg VBG pO2 mmHg VBG HCO3 (23-28) mmol/L VBG Total CO2 (24-29) mmol/L VBG O2 Saturation % VBG Base Excess (-2-3) mmol/L VBG Lactate (0.6-1.4) mmol/L Sodium (136-145) mmol/L Potassium (3.5-5.1) mmol/L Chloride (98-107) mmol/L Carbon Dioxide (21.0-32.0) mmol/L Anion Gap (3-11) mmol/L BUN (7-18) mg/dL Creatinine (0.55-1.02) mg/dL Estimated GFR/1.73 m2 (mL/min/1.73m2) Glucose (74-106) mg/dL Calcium (8.5-10.1) mg/dL Total Bilirubin (0.2-1.0) mg/dL AST (15-37) U/L ALT (14-59) U/L Alkaline Phosphatase (46-116) U/L Troponin I (<0.06) ng/mL NT-Pro-B Natriuret Pep (<300) pg/mL Total Protein (6.4-8.2) g/dL Albumin (3.4-5.0) g/dL COVID-19 Source Nasal/Nares Critical Care Time Critical Care Time Critical Care Time: Yes Total Critical Care Time: 60 Attestation: Telemetry monitoring, IV Lasix administration, diagnostic imaging, diagnostic laboratory evaluation, IV antibiotics, serial DuoNeb administration, BiPAP therapy, hydrotherapy, submental oxygen, admission
[2021-01-14 18:50] LABS: COVID-19 PCR Negative (Negative)
[2021-01-14] MEDS: Albuterol/Ipratropium 3 ML UPD VIAL 9 ML UPD (19:02)
[2021-01-14] MEDS: Albuterol/Ipratropium 3 ML UPD VIAL (19:03)
--- NOTE | 2021-01-14 19:03 | RESPIRATORY ---
Pt came in SOB, RR 38 on 4L o2 94%. Trialed on bipap and cpap settings but pt refuses to use and did not last on unit for more then 3 min.
--- NOTE | 2021-01-14 19:28 | DI.VRAD_ITS ---
PROCEDURE INFORMATION: Exam: XR Chest Exam date and time: 01/14/2021 5:48 PM Age: 50 years old Clinical indication: Patient HX: Shortness of breath, copd TECHNIQUE: Imaging protocol: XR of the chest. Views: 1 view. COMPARISON: XR PORTABLE CHEST AP 12/19/2019 09:42 FINDINGS: Tubes, catheters and devices: EKG wires overlie the chest. Lungs: Bilateral patchy infiltrates. Asymmetric opacification of the left lower lobe. Prominence of the central pulmonary vasculature. Pleural spaces: Blunted left lateral costophrenic angle. Heart/Mediastinum: Stable cardiomediastinal silhouette. Bones/joints: Unremarkable for patient's age. Soft tissues: The patient's chin and upper head overlies the upper chest. IMPRESSION: 1. Bilateral patchy infiltrates. 2. Cardiomegaly with prominent central pulmonary vasculature. Possible left pleural effusion. Dictated and Authenticated by: Deysi Contreras MD. Ordering:PREMA Baker MD
[2021-01-14] MEDS: Furosemide 20 MG/2 ML VIAL IVP (19:53)
[2021-01-14] MEDS: cefTRIAXone 1 GM/50 ML BAG 100 GM (20:09)
--- NOTE | 2021-01-14 20:29 | RESPIRATORY ---
Pt states that she has home oxygen and uses 2L continuously
--- NOTE | 2021-01-14 20:38 | HPE_ITS ---
Date of service: 01/14/21 Time of Service: 20:38 Assessment and Plan Assessment and plan (1) COPD with acute exacerbation: Status: Acute Assessment and plan: COPD exacerbation. Probably an infectious component, though without fever or leukocytosis, and with (to my read) questionable CXR findings, I am not convinced we have a pneumonia (though certainly may); at minimum a bronchitis. Either way would treat with steroids, updrafts and will continue Abx (I think Rocephin is sufficient for now). There is also likely an element of CHF -- by history of orthopnea, elevated BNP, and X-ray findings. Will continue Lasix. 1.COPD: steroids, updrafts, Abx 2. CHF: Lasix 3. DM: track with SS 4. Tobacco: patch prn (14mg) Reviewed ADs, requests Full Code History of Present Illness History of Present Illness Chief Complaint: SOB, cough Narrative: 50 female with COPD, here with 3 days of SOB and dry cough, along with a degree of orthopnea. No fever or CP, and she is vaccinated. In ER findings of note for absence of fever, tight lung sounds, white count 9.4, CXR with patchy bilateral infiltrate (though film quality limited by poor inspiration to my read) and negative COVID. BNP 915, trop negative and EKG w/o ischemic changes. VBG pH 7.36, pCO2 57 and O2 sats low 90s on 2L (Patient on 2L at home, reports usual sats in 80s). Patient placed on hi flow O2; given Solumedrol, 20 Lasix IVP (states she is voiding larger volumes); and Rocephin and Doxycycline. At present time she states she is feeling better and requests the high flow O2 be removed. Review of Systems All systems reviewed & are unremarkable except as noted in HPI and below PFSH Active Problem List Contraceptive management (Acute) GERD (gastroesophageal reflux disease) (Chronic) Abnormal uterine bleeding (Acute) Mood disorder (Acute) Hypercalcemia (Acute) Hypomagnesemia (Acute) Discharge planning issues (Acute) HELEN (obstructive sleep apnea) (Chronic) DVT prophylaxis (Acute) Acute exacerbation of CHF (congestive heart failure) (Acute) Tobacco abuse (Acute) Diabetes mellitus (Chronic) COPD with acute exacerbation (Acute) Primary osteoarthritis of both knees (Chronic 05/01/15) Medical History Chronic atrophic candidosis Depression with anxiety Diabetes mellitus type 2 in obese Hyperlipidemia Morbid obesity HELEN (obstructive sleep apnea) Smoker Surgical History Bilat partial saplinectomy Cholecystectomy (12/07/15) LAPAROSCOPIC WITH INTRAOPERATIVE CHOLANGIOGRAM/[facility] Ligation of fallopian tube Open Carpal Tunnel release Repair of umbilical hernia Tonsillectomy and adenoidectomy Family History Other COPD (chronic obstructive pulmonary disease) Cancer Social History Smoking/Tobacco Use Status: Current every day Tobacco Type: cigarettes Quit status: considering quitting Second Hand Exposure: Yes Smoking risk assessment performed?: Yes Alcohol Intake: never Drug use: Never Substance use type: does not use, opiates and painkillers Current gender identity: female Do you feel safe at home: Yes Do you feel safe in your relationship?: Yes Additional Social history: Lives with her male partner, who also smokes. Disabled. History History 5 Para 2 Hx # Term Pregnancies Multiple births Hx # Pregnancies Ectopic pregnancies AB induced Hx Number of Living Children AB spontaneous Meds Allergies and Home Medications Allergies Allergy/AdvReac Type Severity Reaction Status Date / Time amoxicillin Allergy Skin Rash Unverified 10/29/19 10:29 Sulfa (Sulfonamide Allergy Unverified 10/29/19 10:29 Antibiotics) Antiobiotics AdvReac Intermediate Rash,vomitt Uncoded 10/29/19 10:29 ing Home Medications Medication Instructions Recorded Confirmed Type albuterol sulfate 1 - 2 puff INHALATION Q4H PRN 03/21/14 01/14/21 History inhaler desvenlafaxine succinate [Pristiq] 100 mg PO DAILY tab-cap 03/21/14 01/14/21 History Proventil Hfa 2 puff INHALATION Q4H PRN inhaler 04/22/17 11/03/19 History aripiprazole [Abilify] 10 mg PO DAILY tab-cap 04/22/17 01/14/21 History atenolol 50 mg PO DAILY tab-cap 04/22/17 01/14/21 History fenofibrate 145 mg PO DAILY tab-cap 04/22/17 01/14/21 History gabapentin 900 mg PO DAILY 04/22/17 11/03/19 History nystatin 1 ea PO BID script 04/22/17 01/14/21 History pantoprazole [Protonix] 40 mg PO DAILY 04/22/17 01/14/21 History lisinopril 40 mg PO DAILY tab-cap 04/23/17 01/14/21 History Narcan 4 mg INTRANASAL PRN PRN 04/29/18 01/14/21 History bupropion HCl [Wellbutrin XL] 300 mg PO DAILY 04/29/18 01/14/21 History oxycodone-acetaminophen 1 tab PO Q4H PRN 04/29/18 01/14/21 History methylphenidate HCl [Ritalin] 20 mg PO BID 11/15/18 01/14/21 History rosuvastatin 40 mg tablet 40 mg PO HS tab 04/12/19 01/14/21 History norethindrone acetate 5 mg tablet 5 mg PO DAILY #60 tab 11/09/19 Rx furosemide 20 mg PO DAILY PRN 01/14/21 01/14/21 History insulin aspart U-100 [Novolog SUBCUT 01/14/21 History Flexpen U-100 Insulin] Exam Narrative Exam Narrative: 172/88, 94, 36.5, 29, 94% high flow. HEENT atraumatic; neck supple, unable to read JVP; lungs diminished, wheezing; heart distant/RRR; abdomen soft and NT; extremities 1+ pedal edema; neuro Ox3, lucid, moves all 4s Results Labs Result diagrams: 01/14/21 17:40 01/14/21 17:40 Labs: Laboratory Results - last 24 hr 01/14/21 01/14/21 01/14/21 17:40 17:40 17:40 WBC RBC Hgb Hct MCV MCH MCHC RDW Plt Count MPV Immature Gran % Neutrophils % Lymphocytes % Monocytes % Eosinophils % Basophils % Nucleated RBC % Absolute Neutrophils Absolute Lymphocytes Absolute Monocytes Absolute Eosinophils Absolute Basophils VBG pH 7.36 VBG pCO2 57 H VBG pO2 43 VBG HCO3 32 H VBG Total CO2 28 VBG O2 Saturation 84 VBG Base Excess 7 H VBG Lactate 1.1 Sodium 139 Potassium 3.9 Chloride 101 Carbon Dioxide 30.8 Anion Gap 7.2 BUN 10 Creatinine 0.6 Estimated GFR/1.73 m2 >= 60.00 Glucose 150 H Calcium 10.0 Total Bilirubin 0.8 AST 20 ALT 17 Alkaline Phosphatase 82 Troponin I < 0.05 NT-Pro-B Natriuret Pep 915 H Total Protein 8.0 Albumin 3.9 COVID-19 Source SARS-CoV-2 (PCR) 01/14/21 01/14/21 17:40 18:00 WBC 9.40 RBC 5.43 H Hgb 16.3 H Hct 50.2 H MCV 92.4 MCH 30.0 MCHC 32.5 RDW 13.1 Plt Count 182 MPV 9.3 Immature Gran % 0.7 Neutrophils % 73.3 Lymphocytes % 12.8 Monocytes % 10.1 Eosinophils % 2.8 Basophils % 0.3 Nucleated RBC % 0 Absolute Neutrophils 6.89 H Absolute Lymphocytes 1.20 Absolute Monocytes 0.95 H Absolute Eosinophils 0.26 Absolute Basophils 0.03 VBG pH VBG pCO2 VBG pO2 VBG HCO3 VBG Total CO2 VBG O2 Saturation VBG Base Excess VBG Lactate Sodium Potassium Chloride Carbon Dioxide Anion Gap BUN Creatinine Estimated GFR/1.73 m2 Glucose Calcium Total Bilirubin AST ALT Alkaline Phosphatase Troponin I NT-Pro-B Natriuret Pep Total Protein Albumin COVID-19 Source Nasal/Nares SARS-CoV-2 (PCR) Negative Last Vital Signs Temp 35.9 C L 01/14/21 17:20 Pulse 94 H 01/14/21 20:16 Resp 29 H 01/14/21 20:16 BP 172/88 H 01/14/21 20:16 Pulse Ox 94 01/14/21 20:16
[2021-01-14] MEDS: Normal Saline 50 ML 100 ML (20:45)
[2021-01-14] MEDS: Doxycycline 100 MG VIAL (20:45)
[2021-01-15] VITALS (10 sets, daily range): BP systolic 158–180; BP diastolic 87–100; PULSE 89–110; RESP 2–24; TEMP 36.7–37; O2SAT 89–96
[2021-01-15] MEDS: Albuterol/Ipratropium 3 ML UPD VIAL UPD ×4 (00:44→23:20)
[2021-01-15] MEDS: oxyCODONE 5 mg/Acetaminophen 325 mg TAB 1 TAB PO ×3 (00:44→11:48)
[2021-01-15] MEDS: Rosuvastatin 10 MG TAB 40 MG PO ×2 (00:44→21:36)
[2021-01-15] MEDS: methylPREDNISolone SUCC 40 MG VIAL IVP ×3 (03:11→18:19)
[2021-01-15] MEDS: Methylphenidate 10 MG TAB 20 MG PO ×2 (08:15→14:32)
[2021-01-15] MEDS: Fenofibrate, Micronized 145 MG TAB PO (08:15)
[2021-01-15] MEDS: Pantoprazole 40 MG TABCR PO (08:16)
[2021-01-15] MEDS: ARIPiprazole 5 MG TAB 10 MG PO (08:16)
[2021-01-15] MEDS: buPROPion-XL 150 MG TABCR 300 MG PO (08:16)
[2021-01-15] MEDS: Furosemide 20 MG/2 ML VIAL IVP ×2 (08:17→16:46)
[2021-01-15] MEDS: Lisinopril 20 MG TAB 40 MG PO (08:17)
[2021-01-15] MEDS: Atenolol 50 MG TAB PO (08:17)
[2021-01-15] MEDS: Insulin Aspart 300 UNITS/3 ML PEN SC ×3 (08:53→18:04)
--- NOTE | 2021-01-15 10:38 | W.PM.PROGNOT ---
Date of Service Date of service: 01/15/21 Time of Service: 10:38 Assessment and Plan Assessment and plan (1) COPD with acute exacerbation: Status: Acute Assessment and plan: Continue steroids, updrafts, ceftriaxone day 2 improving and weaning down oxygen (2) Diabetes mellitus: Status: Chronic Assessment and plan: hemoglobin A1C 6.5 continue diabetic diet, sliding scale coverage ac/hs anticipate elevated blood sugars with steroid use (3) Acute exacerbation of CHF (congestive heart failure): Status: Acute Assessment and plan: continue increased lasix BID follow I&O follow kidney function last echo in February 2019 shows EF 55-60, mild LVH, RV dilated, trace aortic, mitral and tricuspid regurg (4) HTN (hypertension): Status: Chronic Assessment and plan: some elevated readings. continue home medication and monitor, adjust as needed (5) DVT prophylaxis: Status: Acute Assessment and plan: enoxaparin daily (6) Discharge planning issues: Status: Acute Assessment and plan: anticipate discharge to home when medically stable. discussed with Dr Gonzalez Subjective Subjective Patient reports: no new complaints, feels better, tolerating liquids well, tolerating a regular diet, voiding w/o difficulty and afebrile Interval history since last seen: weaning oxygen down, now at 3 L with home baseline of 2 Exam Const General: cooperative, comfortable, no acute distress and ill appearing (older appearing than stated age, ) chronically Nutritional Appearance: obese Orientation: alert, awake and oriented x3 HENMT Head: normal to inspection, normocephalic and atraumatic Teeth and gingiva: poor dentition Resp Effort & Inspection: normal respiratory effort Auscultation: diminished lung sounds (bases with faint exp wheeze) bilaterally, no rales and no rhonchi Cardio Rate: regular rate Rhythm: regular rhythm GI Inspection: obesity Skin Rashes: rashes noted (fungal, skin folds breast and pannus ) Neuro General: patient alert, patient awake, patient oriented x3 and no focal motor deficits Extrem General: normal to inspection and full ROM Objective Last Vital Signs Temp 37 C 01/15/21 09:08 Pulse 106 H 01/15/21 09:08 Resp 22 01/15/21 09:08 BP 180/100 H 01/15/21 09:08 Pulse Ox 89 L 01/15/21 09:08 Laboratory Results - last 24 hr 01/14/21 01/14/21 01/14/21 17:40 17:40 17:40 WBC RBC Hgb Hct MCV MCH MCHC RDW Plt Count MPV Immature Gran % Neutrophils % Lymphocytes % Monocytes % Eosinophils % Basophils % Nucleated RBC % Absolute Neutrophils Absolute Lymphocytes Absolute Monocytes Absolute Eosinophils Absolute Basophils VBG pH 7.36 VBG pCO2 57 H VBG pO2 43 VBG HCO3 32 H VBG Total CO2 28 VBG O2 Saturation 84 VBG Base Excess 7 H VBG Lactate 1.1 Sodium 139 Potassium 3.9 Chloride 101 Carbon Dioxide 30.8 Anion Gap 7.2 BUN 10 Creatinine 0.6 Estimated GFR/1.73 m2 >= 60.00 Glucose 150 H Calcium 10.0 Total Bilirubin 0.8 AST 20 ALT 17 Alkaline Phosphatase 82 Troponin I < 0.05 NT-Pro-B Natriuret Pep 915 H Total Protein 8.0 Albumin 3.9 COVID-19 Source SARS-CoV-2 (PCR) 01/14/21 01/14/21 17:40 18:00 WBC 9.40 RBC 5.43 H Hgb 16.3 H Hct 50.2 H MCV 92.4 MCH 30.0 MCHC 32.5 RDW 13.1 Plt Count 182 MPV 9.3 Immature Gran % 0.7 Neutrophils % 73.3 Lymphocytes % 12.8 Monocytes % 10.1 Eosinophils % 2.8 Basophils % 0.3 Nucleated RBC % 0 Absolute Neutrophils 6.89 H Absolute Lymphocytes 1.20 Absolute Monocytes 0.95 H Absolute Eosinophils 0.26 Absolute Basophils 0.03 VBG pH VBG pCO2 VBG pO2 VBG HCO3 VBG Total CO2 VBG O2 Saturation VBG Base Excess VBG Lactate Sodium Potassium Chloride Carbon Dioxide Anion Gap BUN Creatinine Estimated GFR/1.73 m2 Glucose Calcium Total Bilirubin AST ALT Alkaline Phosphatase Troponin I NT-Pro-B Natriuret Pep Total Protein Albumin COVID-19 Source Nasal/Nares SARS-CoV-2 (PCR) Negative
[2021-01-15] MEDS: Normal Saline Flush 10 ML SYR IVP ×4 (11:48→19:25)
[2021-01-15] MEDS: Albuterol 2.5 MG/3 ML INH SOLN VIAL UPD (14:07)
--- NOTE | 2021-01-15 14:29 | W.INDIABCONS ---
Date of service: 01/15/21 Time of Service: 14:29 Diabetes Inpatient Consult DESCRIPTION/ASSESSMENT: Pt. admitted with COPD. She is 152 cm and 121.5 kg. Her BMI is 52.3 kg/m2 c/w class 3 obesity. PMH includes diabetes. Her most recent A1C last week is 6.5 c/w optimal glycemic control. Historically her A1C's have been at or close to target. She is currently ordered for Aspart correction before meals. Blood sugars have been well above target. INTERVENTION: Would consider adding a basal insulin while she is in the hospital as well as a carbohydrate coverage with aspart at meals. PLAN: Will continue to follow her progress and monitor weight, PO, and blood sugars. Time Spent in Nutritional Counseling and Treatment: 0
[2021-01-15] MEDS: oxyCODONE 5 MG TAB PO (14:32)
[2021-01-15] MEDS: Nystatin POWDER 15 GM JAR TP ×2 (16:47→19:26)
--- NOTE | 2021-01-15 16:48 | PHA.REVIEW ---
Pharmacy Admission Review - Admission Clinical Review (Last Reviewed 01/14/21 @ 20:45 by Douglas Soler MD) Discharge planning issues (Acute) DVT prophylaxis (Acute) Acute exacerbation of CHF (congestive heart failure) (Acute) COPD with acute exacerbation (Acute) amoxicillin Allergy (Unverified 10/29/19 10:29) Skin Rash Sulfa (Sulfonamide Antibiotics) Allergy (Unverified 10/29/19 10:29) Antiobiotics Adverse Reaction (Intermediate, Uncoded 10/29/19 10:29) Rash,vomitting Resuscitation Status Full Code Height 5 ft Weight 121.563 kg - Renal Dosing Renal Dosing: BUN 10 mg/dL (7-18) 01/14/21 17:40 Creatinine 0.6 mg/dL (0.55-1.02) 01/14/21 17:40 Medications needing adjustments: Reviewed (SCr: 0.6, CrCl~ 132.9mL/min (using adjusted body weight)) - Anticoagulation Anticoagulation: Hgb 16.3 g/dL (11.2-15.7) H 01/14/21 17:40 Hct 50.2 % (36.0-46.0) H 01/14/21 17:40 Plt Count 182 10^3/uL (130-400) 01/14/21 17:40 Creatinine 0.6 mg/dL (0.55-1.02) 01/14/21 17:40 DVT Prophylaxis: Intervened Medications: Enoxaparin (Enoxaparin 40mg BID ordered as BMI is greater than 40.) Therapeutic Anticoagulation: N/A - Opiate Usage Evaluate Pain Scale/Pains Meds: Intervened (Taking PRN Oxycodone/Acetaminophen 10/325mg. Latest pain scale ratin.) Scheduled Bowel Reg ordered if on Opiates?: No (Mentioned to provider.) - Relevant Labs Sodium 139 mmol/L (136-145) 01/14/21 17:40 Potassium 3.9 mmol/L (3.5-5.1) 01/14/21 17:40 Chloride 101 mmol/L (98-107) 01/14/21 17:40 Electrolytes, C-Reactive P, ESR: Reviewed - DM Control DM Control: Glucose 150 mg/dL (74-106) H 01/14/21 17:40 Finger Stick Blood Glucose 311 Finger Stick Blood Glucose 311 Finger Stick Blood Glucose 328 Finger Stick Blood Glucose 328 Finger Stick Blood Glucose 328 Finger Stick Blood Glucose 234 Insulin Dosing: Reviewed (Glargine daily and Aspart SS ordered. Glucose elevated (150).) - Heart Failure/AR Heart Failure/AR: Troponin I < 0.05 ng/mL (<0.06) 01/14/21 17:40 NT-Pro-B Natriuret Pep 915 pg/mL (<300) H 01/14/21 17:40 EF%, ESTEE's, B-Blockers, Diuretics: Reviewed (Atenolol, Lisinopril ordered.) - BP Control BP Control: Blood Pressure 180/100 If elevated: Reviewed (Blood pressure and pulse have been elevated this admission.) - Qtc Review If Elevated: Reviewed (QTc 467 on admission.) - IV to PO Switch IV Medications: Reviewed - Home Meds Home Med List reviewed: Reviewed Relevent Home Meds Not ordered & why?: Diltiazem CD 120mg daily and Sitagliptan 100mg daily not ordered. Advair (replaced by Symbicort) and insulin detemir (replaced by Glargine). - Current meds Current Medication Order Review: Reviewed - Comments Comments/Follow Ups: Continue to monitor blood pressure, blood glucose, vital signs, labs and for medication changes.
--- NOTE | 2021-01-15 17:09 | INITIAL_ITS ---
- If Service Date Differs Date of service: 01/15/21 Time of Service: 17:09 Care Management Initial Assess REASON FOR HOSPITALIZATION:: Acute ecacerbation of COPD PAST MEDICAL HISTORY/PAST SURGICAL HISTORY:: Active Problem List . Contraceptive management (Acute). GERD (gastroesophageal reflux disease) (Chronic). Abnormal uterine bleeding (Acute). Mood disorder (Acute). Hypercalcemia (Acute). Hypomagnesemia (Acute). Discharge planning issues (Acute). HELEN (obstructive sleep apnea) (Chronic). DVT prophylaxis (Acute). Acute exacerbation of CHF (congestive heart failure) (Acute). Tobacco abuse (Acute). Diabetes mellitus (Chronic). COPD with acute exacerbation (Acute). Primary osteoarthritis of both knees (Chronic 05/01/15). Medical History . Chronic atrophic candidosis. Depression with anxiety. Diabetes mellitus type 2 in obese. Hyperlipidemia. Morbid obesity. HELEN (obstructive sleep apnea). Smoker. Surgical History . Bilat partial saplinectomy. Cholecystectomy (12/07/15). LAPAROSCOPIC WITH INTRAOPERATIVE CHOLANGIOGRAM/[facility]. Ligation of fallopian tube. Open Carpal Tunnel release. Repair of umbilical hernia. Tonsillectomy and adenoidectomy PREVIOUS FUNCTIONAL STATUS/SOCIAL/FAMILY SUPPORTS:: Rosibel lives alone in [place] and has two adult children who reside locally. She has a male roomate who stays with her often and is supportive. Her sister Therese provides the majority of her transporation needs, her roomate helps and she also uses [facility]. 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 She has home O2, uses a walker and describes herself as being independent with her ALD's at baseline. CURRENT FUNCTIONAL STATUS:: Rosibel was sitting up in her chair when CM met with her. She was alert and oriented and easily engaged in conversation. She is weaning down on her supplemental oxygen and hoping to be discharged tomorrow if her oxygen requirement returns to baseline. ADVANCE DIRECTIVES:: None, did not accept a blank copy, as she has one at home she can fill out. Has patient been provided with info about the portal/API?: Yes Did the patient sign up for the portal?: Yes (Prior to admission) CODE STATUS:: Full Code INSURANCE COVERAGE / FINANCIAL ISSUES:: Medicaid. Medicare CURRENT HOME/COMMUNITY SERVICES/EQUIPMENT:: Home O2: [employer]. Walker: Has one at home. RCT: provides transportation PRN PRIMARY CARE PHYSICIAN:: Maria Del Carmen Nogueira POTENTIAL DISCHARGE NEEDS:: Follow up appointments, transportation PATIENT/FAMILY EDUCATION NEEDS:: Review discharge instructions, limitations and plan to follow up with community providers. ask me three. TRANSPORTATION:: via private vehicle with sister Therese vs RCT PLAN:: Anticipate Rosibel will be discharged home when her supplimental O2 requirements return to baseline and she is medically cleared by provider. Need for new [facility] SN/PT is undertermined at this time. Patient will follow up with community providers and discharge plan of care as prescribed.
[2021-01-15] MEDS: Enoxaparin 40 MG/0.4 ML SYR SC (18:20)
[2021-01-15] MEDS: cefTRIAXone 1 GM/50 ML BAG IVPB (19:25)
[2021-01-15] MEDS: Budesonide/Formoterol 80/4.5 6.9 GM 60 PUFF INH IH (19:26)
[2021-01-15] MEDS: Docusate Sodium 100 MG CAP PO (19:26)
[2021-01-15] MEDS: Polyethylene Glycol 3350 17 GM PACKET PO (19:27)
[2021-01-15] MEDS: Gabapentin 300 MG CAP 900 MG PO (21:36)
[2021-01-15] MEDS: Insulin Glargine 300 UNITS/3 ML PEN 20 UNITS SC (21:36)
[2021-01-15] MEDS: Acetaminophen 325 MG TAB 650 MG PO (23:20)
[2021-01-16] VITALS (7 sets, daily range): BP systolic 142–166; BP diastolic 89–94; PULSE 94–120; RESP 2–22; TEMP 36.6–37.4; O2SAT 81–98
[2021-01-16] MEDS: Normal Saline Flush 10 ML SYR IVP ×3 (03:18→10:18)
[2021-01-16] MEDS: methylPREDNISolone SUCC 40 MG VIAL IVP ×2 (03:19→10:18)
[2021-01-16] MEDS: Enoxaparin 40 MG/0.4 ML SYR SC (06:04)
[2021-01-16] MEDS: Albuterol/Ipratropium 3 ML UPD VIAL UPD ×2 (06:04→11:18)
--- NOTE | 2021-01-16 08:28 | CMPROGNOTE_ITS ---
- If Service Date Differs Date of service: 01/16/21 Time of Service: 08:28 Care Management Progress Note S/O: A: 50 year old female admitted to [facility] on 01/14/21 for COPD. P: Anticipate Rosibel will be discharged home when her supplimental O2 requirements return to baseline and she is medically cleared by provider. Need for new [facility] SN/PT is undertermined at this time. Patient will follow up with community providers and discharge plan of care as prescribed.
[2021-01-16] MEDS: Methylphenidate 10 MG TAB 20 MG PO (08:46)
[2021-01-16] MEDS: ARIPiprazole 5 MG TAB 10 MG PO (08:46)
[2021-01-16] MEDS: Atenolol 50 MG TAB PO (08:46)
[2021-01-16] MEDS: Lisinopril 20 MG TAB 40 MG PO (08:46)
[2021-01-16] MEDS: Fenofibrate, Micronized 145 MG TAB PO (08:47)
[2021-01-16] MEDS: buPROPion-CR 100 MG TABCR 200 MG PO (08:47)
[2021-01-16] MEDS: Furosemide 20 MG/2 ML VIAL IVP (08:48)
[2021-01-16] MEDS: Pantoprazole 40 MG TABCR PO (08:48)
[2021-01-16] MEDS: Insulin Aspart 300 UNITS/3 ML PEN SC ×2 (08:49→12:36)
[2021-01-16] MEDS: Budesonide/Formoterol 80/4.5 6.9 GM 60 PUFF INH IH (09:24)
--- NOTE | 2021-01-16 11:21 | RESPIRATORY ---
Pt states she uses 2L O2 via nasal cannula continuously at baseline. MISTY:
--- NOTE | 2021-01-16 13:14 | W.PM.DS.N ---
Date of service: 01/16/21 Time of Service: 13:14 DS: Diagnosis Discharge Diagnosis (1) COPD with acute exacerbation: Status: Acute (2) Diabetes mellitus: Status: Chronic (3) Acute exacerbation of CHF (congestive heart failure): Status: Acute (4) HTN (hypertension): Status: Chronic Discharge Plan Disposition Patient Disposition: HOME Condition: Improving Discharge Details Reason For Visit: COPD Admit Date/Time: 01/14/21 21:00 Admit Provider: Douglas Soler Attending Provider: Douglas Soler Primary Care Provider: Maria Del Cramen Nogueira Hospital Course Hospital Course: This is a morbidly obese female with history of diabetes mellitus, copd, heart failure who presented to the ED with 3 days of increasing shortness of breath. she is dependant on oxygen at 2 l nc at baseline and is fully vaccinated for covid 19. Her work up in the ED shows a negative covid and concerning for COPD exacerbation, in addition to a questionable pneumonia by CXR, and some mild fluid overload. she is given IV steroids, antibiotics and diuresed in the ED. she is still requiring above her baseline of 2 l nc and is admitted to med/surg on telemetry for ongoing management. Her symptoms continued to improve and she was weaned down to her baseline. she remained afebrile with stable vital signs. she was eating and drinking and bowel and bladder functioning well. she now feels at her baseline and is requesting discharge to home. she will complete a steroid burst and course of cefpodoxime. she will be discharged to home with no services. discharge discussed with DR Gonzalez. Home Meds and New Rx's Prescriptions: New prednisone 20 mg tablet 40 mg PO DAILY Qty: 10 RF: 0 cefpodoxime 200 mg tablet 200 mg PO BID Qty: 14 RF: 0 Continued rosuvastatin 40 mg tablet 40 mg PO HS RF: 0 desvenlafaxine succinate [Pristiq] 100 MG tablet extended release 24 hr 100 mg PO DAILY RF: 0 albuterol sulfate 8.5 GM HFA aerosol inhaler 1 - 2 puff Inhalation Q4H PRN RF: 0 gabapentin 300 MG capsule 900 mg PO HS RF: 0 atenolol 50 MG tablet 50 mg PO DAILY RF: 0 aripiprazole [Abilify] 10 MG tablet 10 mg PO DAILY RF: 0 nystatin 1 EACH powder 1 ea PO TID PRNRF: 0 fenofibrate 160 MG tablet 160 mg PO DAILY RF: 0 pantoprazole [Protonix] [address] for susp in packet 40 mg PO DAILY RF: 0 lisinopril 20 MG tablet 40 mg PO DAILY RF: 0 oxycodone-acetaminophen 10-325 mg Tablet 1 tab PO Q4H PRN (Reason: Pain) RF: 0 Narcan 4 mg/actuation [place],Non-Aerosol 4 mg Intranasal PRN PRN (Reason: excessive sedation) RF: 0 methylphenidate HCl [Ritalin] 20 mg Tablet 20 mg PO BID RF: 0 furosemide 20 mg tablet 20 mg PO DAILY PRN (Reason: Edema) RF: 0 insulin aspart U-100 [Novolog Flexpen U-100 Insulin] 100 unit/mL (3 mL) insulin pen 0 sliding scale dose SUBCUT AC RF: 0 bupropion HCl 200 mg tablet sustained-release 12 hr 200 mg PO QAM RF: 0 Januvia 100 mg tablet 100 mg PO DAILY RF: 0 diltiazem HCl 120 mg capsule,extended release 24 hr 120 mg PO DAILY RF: 0 Levemir FlexTouch U-100 Insuln 100 unit/mL (3 mL) insulin pen 44 unit SUBCUT DAILY RF: 0 Advair HFA 230-21 mcg/actuation HFA aerosol inhaler 1 puff INHALATION BID RF: 0 Discharge Instructions Instructions: COPD (Chronic Obstructive Pulmonary Disease) (ED) Additional Instructions: continue steroid burst for 5 more days. continue antibiotics as directed. Referrals: Maria Del Carmen Nogueira PA [Primary Care Provider] - Activity:: Activity as Tolerated Equipment/Supplies:: No Equipment Needed Diet:: Carb Counting Discharge Orders Discharge Orders: Discharge Order (Routine); Ordered 01/16/21 Ordered By: Mar Scott DS: Summary Time Spent with Patient providing and/or coordinating discharge services: Less than 30 minutes Status at Discharge Functional status at discharge: independent ambulation Overall status at discharge: patient is progressing back to baseline Mental Status: mental status grossly normal Speech and Movement: speech and movement normal Mood: congruent mood Affect: normal affect Exam Const General: cooperative, comfortable and no acute distress Nutritional Appearance: obese Orientation: alert, awake and oriented x3 HENMT Head: normal to inspection, normocephalic and atraumatic Teeth and gingiva: poor dentition Resp Effort & Inspection: normal respiratory effort Auscultation: diminished lung sounds (bases with faint exp wheeze) bilaterally, no rales and no rhonchi Cardio Rate: regular rate Rhythm: regular rhythm GI Inspection: obesity Skin Rashes: rashes noted (fungal, skin folds breast and pannus ) Neuro General: patient alert, patient awake, patient oriented x3 and no focal motor deficits Extrem General: normal to inspection and full ROM Psych Mental Status: mental status grossly normal Speech and Movement: speech and movement normal Mood: congruent mood Affect: normal affect DS: Data Vitals/I&O Vitals and I&O: Vital Signs Temperature 37.4 C 01/16/21 08:37 Temperature Source Tympanic 01/16/21 08:37 Pulse 111 H 01/16/21 11:20 Pulse Rhythm Regular 01/16/21 12:37 Pulse 96 H 01/14/21 22:40 Respiratory Rate 21 01/16/21 11:20 Respiratory Effort Non-Labored 01/16/21 12:37 Respiratory Depth Normal 01/16/21 12:37 Respiratory Pattern Normal 01/16/21 12:37 Blood Pressure 142/89 H 01/16/21 08:37 Blood Pressure Mean 129 01/14/21 22:34 Pulse Oximetry 95 01/16/21 11:22 Oxygen Delivery Method Nasal Cannula 01/16/21 11:22 Oxygen Flow Rate 2 01/16/21 11:22 Fraction of Inspired Oxygen (FIO2) 60 01/14/21 20:27 Pain Level 0 01/16/21 03:17 Comment 01/15/21 23:41 Intake & Output 01/15/21 01/16/21 01/16/21 23:59 11:59 23:59 Intake Total 670 / 670 690 / 1090 400 / 1090 Output Total 1675 / 3125 775 / 775 Balance -1005 / -2455 -85 / 315 400 / 315 Intake: IV 50 / 50 Oral 660 / 660 640 / 1040 400 / 1040 Output: Urine 1675 / 3125 775 / 775 Other: Urine Color Yellow Yellow Urine Appearance Clear Clear Clear Stool Size Large Stool Characteristics Soft PFSH Active Problem List Contraceptive management (Acute) GERD (gastroesophageal reflux disease) (Chronic) Abnormal uterine bleeding (Acute) Mood disorder (Acute) Hypercalcemia (Acute) Hypomagnesemia (Acute) Discharge planning issues (Acute) HELEN (obstructive sleep apnea) (Chronic) DVT prophylaxis (Acute) Acute exacerbation of CHF (congestive heart failure) (Acute) Tobacco abuse (Acute) Diabetes mellitus (Chronic) COPD with acute exacerbation (Acute) Primary osteoarthritis of both knees (Chronic 05/01/15) Medical History Chronic atrophic candidosis Depression with anxiety Diabetes mellitus type 2 in obese Hyperlipidemia Morbid obesity HELEN (obstructive sleep apnea) Smoker Surgical History Bilat partial saplinectomy Cholecystectomy (12/07/15) LAPAROSCOPIC WITH INTRAOPERATIVE CHOLANGIOGRAM/[facility] Ligation of fallopian tube Open Carpal Tunnel release Repair of umbilical hernia Tonsillectomy and adenoidectomy Family History Other COPD (chronic obstructive pulmonary disease) Cancer Social History Smoking/Tobacco Use Status: Current every day Tobacco Type: cigarettes Quit status: considering quitting Second Hand Exposure: Yes Smoking risk assessment performed?: Yes Alcohol Intake: never Drug use: Never Substance use type: does not use, opiates and painkillers Current gender identity: female Do you feel safe at home: Yes Do you feel safe in your relationship?: Yes Additional Social history: Lives with her male partner, who also smokes. Disabled. History History 5 Para 2 Hx # Term Pregnancies Multiple births Hx # Pregnancies Ectopic pregnancies AB induced Hx Number of Living Children AB spontaneous
--- NOTE | 2021-01-16 14:51 | CHAPLAIN ---
Rosibel was sitting on the edge of her bed when I visited. She said she is feeling better this morning, after it was discovered that her oxygen tube was disconnected, but her oxygen levels had increased back to normal. She is in touch with her sister in [place] and identified her as a support.
--- NOTE | 2021-01-16 16:13 | PDOC.CMDIS ---
- If Service Date Differs Date of service: 01/16/21 Time of Service: 16:13 LACE Index Scoring Tool - Questions: Length of Stay (in days): 2 Acuity (Admit via E.D.?): Yes Comorbidities: Diabetes w/o Complication, Chronic Pulmonary Disease E.D. Visits: 1 - Answers: Total Score: 9 Risk of Readmission: Low Risk Care Management Discharge Reason for Hospitalization: Acute exacerbation of COPD Discharge Plan: Discharge home with no new services via private vehicle with family. Take medications as directed and follow up with community providers and discharge plan of care as prescribed. Patient/Family Education Needs: Review discharge instructions, limitations and plan to follow up with community providers. ask me three.
== END 2021-01-16 15:34 | disposition home or self-care (01) | DRG 190 ==
LOC: ER 22:43 → MS 22:53
PROVIDERS: Admitting Provider General Practice; Emergency Provider Physician Assistant; PCP Physician Assistant Medical; Visit Provider General Practice
DX: J44.0 Chronic obstructive pulmonary disease with (acute) lower respiratory infection (principal); J18.9 Pneumonia, unspecified organism; Z68.43 Body mass index [BMI] 50.0-59.9, adult; J44.1 Chronic obstructive pulmonary disease with (acute) exacerbation; F17.210 Nicotine dependence, cigarettes, uncomplicated; E11.9 Type 2 diabetes mellitus without complications; I50.9 Heart failure, unspecified; Z20.822 Contact with and (suspected) exposure to COVID-19; K21.9 Gastro-esophageal reflux disease without esophagitis; G47.33 Obstructive sleep apnea (adult) (pediatric); F41.8 Other specified anxiety disorders; E78.5 Hyperlipidemia, unspecified; E66.01 Morbid (severe) obesity due to excess calories; M17.0 Bilateral primary osteoarthritis of knee; I11.0 Hypertensive heart disease with heart failure
CPT/HCPCS: 36415; 80053; 82805; 87635; 93005; 94640; 96365; 96375; 99291; J1650; 71045; 83605; 83880; 84484; 85025; 93010; 94664; 94667; 94760; 99222; 99233; 99238; J0696; J1941; J2930; J7613; J7620

== ENCOUNTER 2021-02-13 16:25 | Outpatient (REF) | payer MEDICARE, MEDICAID, SELFPAY ==
[2021-02-13 20:06] LABS: Anion Gap 5.4 mmol/L (3-11); BUN 12 mg/dL (7-18); CO2 32.6 mmol/L (21.0-32.0); CREATININE 0.6 mg/dL (0.55-1.02); Calcium 9.9 mg/dL (8.5-10.1); Chloride 103 mmol/L (98-107); Glucose 140 mg/dL (74-106); Potassium 4.1 mmol/L (3.5-5.1); Sodium 141 mmol/L (136-145)
== END 2021-02-13 16:26 | disposition home or self-care (01) ==
LOC: NCHCN 16:25
PROVIDERS: PCP Physician Assistant Medical; Visit Provider Physician Assistant Medical
DX: I50.9 Heart failure, unspecified (principal)
CPT/HCPCS: 80048

== ENCOUNTER 2021-03-19 09:00 | Outpatient (REF) | payer MEDICARE, MEDICAID, SELFPAY ==
[2021-03-21 11:23] LABS: COVID-19 RT-PCR UVMMC Result Negative (Negative)
== END 2021-03-19 09:01 | disposition home or self-care (01) ==
LOC: NCHCN 09:00
PROVIDERS: PCP Physician Assistant Medical; Visit Provider Physician Assistant Medical
DX: Z20.822 Contact with and (suspected) exposure to COVID-19 (principal); R06.09 Other forms of dyspnea
CPT/HCPCS: U0003; U0005

== ENCOUNTER 2021-08-10 01:31 | Inpatient (IN) | payer MEDICARE, MEDICAID, SELFPAY ==
[2021-08-10] VITALS (171 sets, daily range): BP systolic 117–197; BP diastolic 70–106; PULSE 73–113; RESP 2–42; TEMP 36–37.3; O2SAT 73–98
--- OUTSIDE RECORDS SUMMARY | 2021-08-10 01:38 | XMS_ITS | Encounter Summary ---
:1970 Author Organization [facility] [place] [address] Care Team Providers Name Role Phone Maria Del Carmen Nogueira Primary Care Provider Encounter Details Date Type Department Care Team Description 11/21/2018 Telephone Hospitalist at [facility] Lance Lea MD [facility] [place] [address] GENERAL INTERNAL [phone] [place] [phone] (Wo rk) Social History Tobacco Use Types Packs/Day Years Used Date Current Every Day Smoker Cigarettes 1 Smokeless Tobacco: Never Used Alcohol Use Standard Drinks/Week Comments Yes 0 (1 standard drink = 0.6 oz pure alcoho l) occasionaly Alcohol Habits Answer Date Recorded How often do you have a drink containing alcohol? Not asked How many drinks containing alcohol do you have on a Not aske d typical day when you are drinking? How often do you have six or more drinks on one occasion? No t asked Comment: occasionaly 09/15/2017 Sex Assigned at Date Recorded Not on file documented as of this encounter Miscellaneous Notes Telephone Encounter - Lance Lea MD - 11/21/2018 2:43 PM EDT Received a call from Yana Lawson regarding Ms. Rosibel Dinh. Her pharmacy reportedly never received her prescription for doxycyline from her last discharge from [facility] on 11/19/2018. Yana called [facility] in [place] and confirmed it was never received. According to the documentation, doxycyline was ordered prior to discharge and should be continued for panniculitis and UTI in addition to keflex (which she is taking). Ordered doxycyline 100mg po bid to be completed on 11/24/2018 per the last discharge summary. Lance Lea MD General Internal Medicine documented in this encounter Plan of Treatment Not on filedocumented as of this encounter Visit Diagnoses Not on filedocumented in this encounter Care Teams Electrical Engineering Manager Relationship Specialty Start Date End Date Maria Del Carmen Nogueira PA PCP - General 01/27/14 10/05/19 [address] [place] [address] documented as of this encounter
--- OUTSIDE RECORDS SUMMARY | 2021-08-10 01:38 | XMS_ITS | Encounter Summary ---
:1970 Author Organization [facility] [place] [address] Care Team Providers Name Role Phone Maria Del Carmen Nogueira Primary Care Provider Encounter Details Date Type Department Care Team Description 11/21/2018 Orders Only Hospitalist at [facility] Lance Lea, [facility] [place] [address] [facility] [phone] GENERAL INTERNAL MEDICINE [place] [phone] (Wo rk) Social History Tobacco Use Types [...] on file documented as of this encounter Plan of Treatment Not on filedocumented as of this encounter Visit Diagnoses Not on filedocumented in this encounter Care Teams Automatic Machine Attendant Relationship Specialty Start Date End Date Maria Del Carmen Nogueira PA PCP - General 01/27/14 10/05/19 [address] [place] [address] documented as of this encounter
--- OUTSIDE RECORDS SUMMARY | 2021-08-10 01:38 | XMS_ITS | Clinical Summary ---
:1970 Author Organization [facility] [place] [address] Care Team Providers Name Role Phone Unknown Primary Care Provider Unavailable Allergies Active Allergy Reactions Severity Noted Date Comments Amoxicillin Nausea And Vomiting, Rash 09/15/2017 Sulfa (Sulfonamide Nausea And Vomiting, Rash 8 Antibiotics) Medications Medication Sig Dispensed Refills Start Date End Date Status ARIPiprazole (ABILIFY) TAKE ONE TABLET BY 3 04/09/19 18 Active 10 mg Tablet MOUTH EVERY DAY fenofibrate (TRIGLIDE) TAKE ONE TABLET BY 3 04/09/19 18 Active 160 mg Tablet MOUTH EVERY DAY methylphenidate HCl TAKE ONE TABLET BY 0 04/12/2017 Active (RITALIN) 20 mg Tablet MOUTH TWICE A DAY pantoprazole TAKE ONE TABLET BY 12 04/12/2017 Active (PROTONIX) 40 mg MOUTH EVERY DAY Tablet, Delayed Release (E.C.) rosuvastatin (CRESTOR) Take 40 mg by 0 Active 40 mg Tablet mouth daily. furosemide (LASIX) 40 Take 40 mg by 0 Active mg Tablet mouth 2 times daily as needed. atenolol (TENORMIN) 50 Take 50 mg by 0 Active mg Tablet mouth daily. fluticasone propionate Inhale 1 puff into 0 Active (FLOVENT) 220 the lungs 2 times mcg/actuation HFA daily. Aerosol Inhaler albuterol (PROVENTIL) Take 2.5 mg by 0 Active 2.5 mg /3 mL (0.083 %) nebulization every Solution for 4 hours as needed Nebulization for Wheezing. albuterol 90 Inhale 2 puffs 0 Ac tive mcg/actuation HFA into the lungs Aerosol Inhaler every 4 hours as needed for Wheezing. Use with spacer norethindrone Take 5 mg by mouth 0 Active (AYGESTIN) 5 mg Tablet daily. buPROPion (WELLBUTRIN Take 150 mg by 0 Active SR) 100 mg tablet mouth 2 times sustained-release 12 daily. hr glipiZIDE (GLUCOTROL Take 2.5 mg by 0 Active XL) 2.5 mg Tablet mouth daily. Extended Rel 24 hr lactobacillus with Take 1 capsule by 0 11/19/2018 Active pectin 75 million cell mouth daily. -100 mg Capsule miconazole (MICOTIN) 2 Apply topically 2 70 g 0 9 Active % Powder times daily. gabapentin (NEURONTIN) Take 1 tablet by 30 tablet 0 11/19/2018 Active 800 mg Tablet mouth nightly. oxyCODONE-acetaminophe Take 0.5 tablets 0 11/19/2018 Active n (PERCOCET) 10-325 mg by mouth every 6 Tablet hours as needed for Pain. doxycycline Take 1 capsule by 7 capsule 0 11/21/2018 Active monohydrate (MONODOX) mouth 2 times 100 mg Capsule daily. Active Problems Problem Noted Date Septic shock 11/18/2018 Morbid obesity 11/18/2018 HELEN (obstructive sleep apnea) 11/18/2018 Chronic low back pain 11/17/2018 Depression 11/17/2018 Anxiety 11/17/2018 Hyperlipidemia 11/17/2018 Hypertension 11/17/2018 Type 2 diabetes mellitus 11/17/2018 COPD (chronic obstructive pulmonary disease) 9 Cigarette smoker 11/17/2018 Overview: 1/2 PPD Acute kidney injury 11/15/2018 Bilateral knee pain 09/15/2017 Family History Medical History Relation Comments Diabetes Maternal Aunt Diabetes Mother Diabetes Paternal Aunt Relation Status Comments Maternal Aunt Mother Paternal Aunt Social History Tobacco Use Types Packs/Day Years [...] Assigned at Date Recorded Not on file Last Filed Vital Signs Vital Sign Reading Time Taken Comments Blood Pressure 150/89 11/19/2018 8:12 AM EDT Pulse 90 11/19/2018 8:12 AM EDT Temperature 36.4 ??C (97.5 ??F) 11/19/2018 8:12 AM EDT Respiratory Rate 22 11/19/2018 8:12 AM EDT Oxygen Saturation 94% 11/19/2018 9:00 AM EDT Inhaled Oxygen Concentration - - Weight 135 kg (297 lb 9.9 oz) 11/17/2018 2:00 AM EDT Height 157.5 cm (5' 2) 11/16/2018 1:45 AM EDT Body Mass Index 54.44 11/16/2018 1:45 AM EDT Plan of Treatment Health Maintenance Due Date Last Done Comments Covid-19 Vaccine (#1) 1974 Pneumococcal Vaccine: At-Risk 06/25/1975 5-64yrs (1 of 2 - PPSV23) DM Opthalmology Exam 06/25/1979 DM Urine Microalbumin yearly 06/25/1979 HIV screen 06/25/1987 Hepatitis C Screening 06/25/1987 Tdap adult 1988 Tetanus vaccine 1988 HPV test 06/25/1999 PAP Smear 06/25/1999 Breast Cancer Share Decision 2009 Needed Colonoscopy 2014 DM Hemoglobin A1c 6 month 05/17/2019 11/16/2018 Breast Cancer screening 06/25/2019 Zoster vaccine (1 of 2) 06/25/2019 DM Creatinine yearly 11/20/2019 11/19/2018, 11/18/2018, 11/17/2018, Additional history exists Influenza (Flu) vaccine (1 of 1 - 10/18/2020 Influenza standard series) Insurance Payer Benefit Plan / Subscriber ID Effective Dates Phone Addre ss Type Group MEDICARE MEDICARE PART [id number] 2017-Prese [id number] [facility] [place] [id number] [place] [id number] 2019-Prese [phone] [address] [place] [address] Advance Directives Latest Code Status on File Code Status Date Activated Date Inactivated Comments Full Code 11/15/2018 11:54 PM 11/19/2018 1:26 PM Does patient have capacity to make decision: No Code Status decision being made per: Attending of Record Care Teams Sales Team Recruiter Relationship Specialty Start Date End Date Unknown PCP - General 10/06/19 None
--- OUTSIDE RECORDS SUMMARY | 2021-08-10 01:38 | XMS_ITS | Encounter Summary ---
:1970 Author Organization [facility] [place] [address] Care Team Providers Name Role Phone Maria Del Carmen Nogueira Primary Care Provider Encounter Details Date Type Department Care Team Description 03/03/2019 Hospital Encounter Mobile Sarah Gonzalezpolly brown heart Echocardiography MD Ghassan failure, unspecified [facility] [address] HF chronicity, [place], [place] [address] failure type [id number] Social History Tobacco Use Types Packs/Day Years [...] on file documented as of this encounter Medications at Time of Discharge Medication Sig Dispensed Refills Start Date End Date doxycycline monohydrate Take 1 capsule by 7 capsule 0 11/21 (MONODOX) 100 mg Capsule mouth 2 times daily. lactobacillus with pectin Take 1 capsule by 0 04/2018 75 million cell -100 mg mouth daily. Capsule miconazole (MICOTIN) 2 % Apply topically 2 70 g 0 1004/2018 Powder times daily. gabapentin (NEURONTIN) Take 1 tablet by mouth 30 tablet 0 1 800 mg Tablet nightly. oxyCODONE-acetaminophen Take 0.5 tablets by 0 04/2018 (PERCOCET) 10-325 mg mouth every 6 hours as Tablet needed for Pain. rosuvastatin (CRESTOR) 40 Take 40 mg by mouth 0 mg Tablet daily. furosemide (LASIX) 40 mg Take 40 mg by mouth 2 0 Tablet times daily as needed. atenolol (TENORMIN) 50 mg Take 50 mg by mouth 0 Tablet daily. fluticasone propionate Inhale 1 puff into the 0 (FLOVENT) 220 lungs 2 times daily. mcg/actuation HFA Aerosol Inhaler albuterol (PROVENTIL) 2.5 Take 2.5 mg by 0 mg /3 mL (0.083 %) nebulization every 4 Solution for Nebulization hours as needed for Wheezing. albuterol 90 Inhale 2 puffs into 0 mcg/actuation HFA Aerosol the lungs every 4 Inhaler hours as needed for Wheezing. Use with spacer norethindrone (AYGESTIN) Take 5 mg by mouth 0 5 mg Tablet daily. buPROPion (WELLBUTRIN SR) Take 150 mg by mouth 2 0 100 mg tablet times daily. sustained-release 12 hr glipiZIDE (GLUCOTROL XL) Take 2.5 mg by mouth 0 2.5 mg Tablet Extended daily. Rel 24 hr ARIPiprazole (ABILIFY) 10 TAKE ONE TABLET BY 3 mg Tablet MOUTH EVERY DAY fenofibrate (TRIGLIDE) TAKE ONE TABLET BY 3 04/09 160 mg Tablet MOUTH EVERY DAY methylphenidate HCl TAKE ONE TABLET BY 0 04/12/19 18 (RITALIN) 20 mg Tablet MOUTH TWICE A DAY pantoprazole (PROTONIX) TAKE ONE TABLET BY 12 03/21 40 mg Tablet, Delayed MOUTH EVERY DAY Release (E.C.) documented as of this encounter Plan of Treatment Not on filedocumented as of this encounter Procedures Procedure Name Priority Date/Time Associated Comments Diagnosis ECHOCARDIOGRAM COMPLETE Routine 03/03/2019 11:02 Congestive he art Results for this AM EST failure, procedure are i n unspecified HF the results chronicity, section. unspecified heart failure type documented in this encounter Results ECHOCARDIOGRAM COMPLETE (03/03/2019 11:02 AM EST) P athologist Signature EF 55 HEARTLAB SYSTEM Specimen (Source) Anatomical Location Collection Method / Collectio n Time Received Time / Laterality Volume 03/03/2019 Narrative HEARTLAB SYSTEM - 03/03/2019 11:43 AM ES T Procedure: ?Transthoracic Echocardiogram Patient: ?DENNISE ALEXIS A. . ?? (Age): 1970(48y) Med Rec#: ? [id number] ?Sex: ?F ? Site Loc: ? [facility] ??H t / Wt: ??157.48(cm)/115. Pt. Loc: ?Adult Floor ? BSA: ?2.12 Study Date: ?? 03/03/2019 ?Pt. Type: Inpatient Tape: ? Referring: MAURA Referring: KITA (Diag Imaging) Referring: KITARH(Med Rec) Referring: NV(Med/Surg) Reading: Stephen Blanton ??([id number]) Director Paid Media: [facility] Director Paid Media: [facility] Diagnosis: *Heart failure, unspecified (I50.9) BP: ? 139/82 SUMMARY: 1. The left ventricle is mildly dilated. Mild concentric left ventricular hypertrophy is observed. The re is normal global left ventricular systolic function. Ejection fraction is estimated to be 55%. There are no left ventricular segmental wall motion abnormalities within the limitation of technically limited im ages. 2. The right ventricle is probably lennox l in size. Right ventricular global systolic function is normal. The estimated pulmonary artery systolic pressure is 39 mmHg. 3. The left atrium is mildly dilated. Th e right atrium is mildly dilated. 4. The aortic valve is tricuspid. Mild ( 1+/4+) aortic valve regurgitation is present. The aortic jesus t is normal in size. 5. See remainder of report for additiona l findings. 6. There is no prior study for compariso n. Findings ? : Study Quality: ? Technically limited Left Ventricle: ? The left ventricle is mildly dilated. ?Mild concentric left ventricular h ypertrophy is observed. ?There is no evidence of LVOT obstr uction. ?There is normal global left ventri cular systolic function. ??Ejection fraction is estimated to be 55%. ?There are no left ventricular segm ental wall motion abnormalities. Left Atrium: ? The left atrium is mi ldly dilated. Right Ventricle: ? The right ventric le is probably normal in size. ?Right ventricular global systolic function is normal. ?The estimated pulmonary artery sys tolic pressure is 39 mmHg. ?The estimated right atrial pressur e is 3 mmHg. Right Atrium: ? The right atrium is mildly dilated. Aortic Valve: ? The aortic valve is tricuspid. ?There is no evidence of aortic lou ve stenosis. ?Mild (1+/4+) aortic valve regurgit ation is present. Mitral Valve: ? The mitral valve magdy flets are mildly thickened. ?There is mitral annular calcificat ion. ?There is trace mitral regurgitatio n present. Tricuspid Valve: ? The tricuspid lou ve leaflets are mildly thickened. ?There is trace tricuspid regurgita tion present. Pulmonic Valve: ? The pulmonic valve appears normal in structure and function. ?There is trace pulmonic regurgitat ion present. Aorta: ? The aortic root is normal i n size. ?There is mild dilatation of the as cending aorta.3.7cm Venous: ? The inferior vena cava betsey ears normal in size. ?There is a greater than 50% respir atory change in the inferior vena cava dimension. Misc: ? See remainder of report for additional findings. ?Two-dimensional echo, spectral Dop pler and color Doppler performed. Chambers 2D ?Value ?Units (Range) ? IVSd (2D) ? 1.24 ? cm ? LVPWd (2D) ?1.23 ? cm ? IVS:LVPW ratio (2D) 1 ?ratio ? LVIDd (2D) ?5.82 ? cm ? LVIDs (2D) ?4.06 ? cm ? LV FS (2D) ?30.27 ?% ? EF Teichholz (2D) ?? 56.85 ?% ? Ao root diameter (2D3.3 ?cm (2.1 - 3.6) ? Ascending Ao ?3.72 ? cm (2 - 3.5) ? Volumes/Mass ?Value ?Units (Range) ? LA ESV BP (A/L) inde33.35 ? ml/m2 ? LV ESV SP 4CH (MOD) 30 ? ml ? LV ESV SP 2CH (MOD) 28.3 ? ml ? LV EDV BP ? 73.08 ?ml ? LV ESV BP ? 29.08 ?ml ? BP EF (MOD) ? 60.2 ? % ? Diastolic/Systolic Function ?Value ?Units (Range) ? MV E-wave Vmax ?0.58 ? m/sec ? MV deceleration uruq069.78 ? m sec ? MV A-wave Vmax ?0.61 ? m/sec ? MV E:A ratio ?0.94 ? ratio ? LV septal e' Vmax ?? 0.09 ? m/sec ? LV lateral e' Vmax ??0.06 ? m/sec ? LV E:e' septal ratio6.36 ? ratio ? LV E:e' lateral rati9.84 ? ratio ? Aortic Valve ?Value ?Units (Range) ? AV Vmax ? 1.25 ? m/sec ? AV VTI ?23.25 ?cm ? AV peak gradient ?6.22 ? mmHg ? AV mean gradient ?3.79 ? mmHg ? LVOT diameter ? 1.98 ? cm ? LVOT Vmax ? 0.77 ? m/sec ? LVOT VTI ?15.22 ?cm ? CO LVOT ? 3.06 ? l/min ? LANDEN (continuity Vmax1.91 ? cm2 ? LANDEN (continuity Vmax0.9 ?cm2/m2 ? LANDEN (continuity VTI)0.95 ? cm2/m2 ? Mitral Valve ?Value ?Units (Range) ? MV VTI ?15.34 ?cm ? MV PHT ?59.68 ?msec ? MVA (PHT) ? 3.69 ? cm2 ? Tricuspid Valve ?Value ?Units (Range) ? TR Vmax ? 3 ?m/sec ? TR peak gradient ?35.96 ?mmHg ? RAP ? 3 ?mmHg ? RVSP ?39 ? mmHg ? Pulmonic Valve/Qp:Qs ?Value ?Units (Range) ? PV Vmax ? 1.15 ? m/sec ? PV VTI ?22.06 ?cm ? PV peak gradient ?5.3 ?mmHg ? PV mean gradient ?3.1 ?mmHg ? RVOT Vmax ? 0.9 ?m/sec ? RVOT VTI ?15.76 ?cm ? RVOT peak gradient ??3.2 ?mmHg ? PV acceleration time58.94 ? msec ? PV ejection time ?258.76 ? msec ? PV AT:ET ?0.23 ? ratio ? Wall Motion: Segment Name ?Rest ? Base-Anteroseptal ?? Normal ? Base-Anterior ? Normal ? Base-Anterolateral ??Normal ? Base-Posterolateral Normal ? Base-Inferior ? Normal ? Base-Inferoseptal ?? Normal ? Mid-Anteroseptal ?Normal ? Mid-Anterior ?Normal ? Mid-Anterolateral ?? Normal ? Mid-Posterolateral ??Normal ? Mid-Inferior ?Normal ? Mid-Inferoseptal ?Normal ? [place]-Septal ? Normal ? [place]-Anterior ? Normal ? [place]-Lateral ?Normal ? [place]-Inferior ? Normal ? [place]-Tip ?Normal ? This report has been electronically sign ed by: _ Stephen Blanton MD ? 03/03/2019 11:39 :02 Images reviewed and interpretation verif barry [facility] Cardiac Ultrasound Laboratory Procedure Note Stephen Blanton MD - 03/03/2019Formattin g of this note might be different from the original. Procedure: Transthoracic Echocardiogram Patient: DENNISE Renteria DOB(Age): 1970(48y) Med Rec#: [id number] Sex: F Site Loc: [facility] Ht / Wt: 157.48(cm)/115. Pt. Loc: Adult Floor BSA: 2.12 Study Date: 03/03/2019 Pt. Type: Inpatie nt Tape: Referring: GILBERTOYOLANDAMOMO Referring: KITA (Diag Imaging) Referring: KITA(Med Rec) Referring: EDENILSON(Med/Surg) Reading: Stephen Blanton ([id number]) Director Paid Media: [facility] Director Paid Media: [facility] Diagnosis: *Heart failure, unspecified (I50.9) BP: 139/82 SUMMARY: 1. The left ventricle is mildly dilated. Mild concentric left ventricular hypertrophy is observed. The re is normal global left ventricular systolic function. Ejection fraction is estimated to be 55%. There are no left ventricular segmental wall motion abnormalities within the limitation of technically limited im ages. 2. The right ventricle is probably lennox l in size. Right ventricular global systolic function is normal. The estimated pulmonary artery systolic pressure is 39 mmHg. 3. The left atrium is mildly dilated. Th e right atrium is mildly dilated. 4. The aortic valve is tricuspid. Mild ( 1+/4+) aortic valve regurgitation is present. The aortic jesus t is normal in size. 5. See remainder of report for additiona l findings. 6. There is no prior study for compariso n. Findings : Study Quality: Technically limited Left Ventricle: The left ventricle is mi ldly dilated. Mild concentric left ventricular hypert rophy is observed. There is no evidence of LVOT obstructio n. There is normal global left ventricular systolic function. Ejection fraction is estimated to be 55%. There are no left ventricular segmental wall motion abnormalities. Left Atrium: The left atrium is mildly d ilated. Right Ventricle: The right ventricle is probably normal in size. Right ventricular global systolic funct ion is normal. The estimated pulmonary artery systolic pressure is 39 mmHg. The estimated right atrial pressure is 3 mmHg. Right Atrium: The right atrium is mildly dilated. Aortic Valve: The aortic valve is tricus pid. There is no evidence of aortic valve st enosis. Mild (1+/4+) aortic valve regurgitation is present. Mitral Valve: The mitral valve leaflets are mildly thickened. There is mitral annular calcification. There is trace mitral regurgitation pre sent. Tricuspid Valve: The tricuspid valve magdy flets are mildly thickened. There is trace tricuspid regurgitation present. Pulmonic Valve: The pulmonic valve appea rs normal in structure and function. There is trace pulmonic regurgitation p resent. Aorta: The aortic root is normal in size . There is mild dilatation of the ascendi ng aorta.3.7cm Venous: The inferior vena cava appears n ormal in size. There is a greater than 50% respiratory change in the inferior vena cava dimension. Misc: See remainder of report for additi onal findings. Two-dimensional echo, spectral Doppler and color Doppler performed. Chambers 2D Value Units (Range) IVSd (2D) 1.24 cm LVPWd (2D) 1.23 cm IVS:LVPW ratio (2D) 1 ratio LVIDd (2D) 5.82 cm LVIDs (2D) 4.06 cm LV FS (2D) 30.27 % EF Teichholz (2D) 56.85 % Ao root diameter (2D3.3 cm (2.1 - 3.6) Ascending Ao 3.72 cm (2 - 3.5) Volumes/Mass Value Units (Range) LA ESV BP (A/L) inde33.35 ml/m2 LV ESV SP 4CH (MOD) 30 ml LV ESV SP 2CH (MOD) 28.3 ml LV EDV BP 73.08 ml LV ESV BP 29.08 ml BP EF (MOD) 60.2 % Diastolic/Systolic Function Value Units (Range) MV E-wave Vmax 0.58 m/sec MV deceleration dlxi990.78 msec MV A-wave Vmax 0.61 m/sec MV E:A ratio 0.94 ratio LV septal e' Vmax 0.09 m/sec LV lateral e' Vmax 0.06 m/sec LV E:e' septal ratio6.36 ratio LV E:e' lateral rati9.84 ratio Aortic Valve Value Units (Range) AV Vmax 1.25 m/sec AV VTI 23.25 cm AV peak gradient 6.22 mmHg AV mean gradient 3.79 mmHg LVOT diameter 1.98 cm LVOT Vmax 0.77 m/sec LVOT VTI 15.22 cm CO LVOT 3.06 l/min LANDEN (continuity Vmax1.91 cm2 LANDEN (continuity Vmax0.9 cm2/m2 LANDEN (continuity VTI)0.95 cm2/m2 Mitral Valve Value Units (Range) MV VTI 15.34 cm MV PHT 59.68 msec MVA (PHT) 3.69 cm2 Tricuspid Valve Value Units (Range) TR Vmax 3 m/sec TR peak gradient 35.96 mmHg RAP 3 mmHg RVSP 39 mmHg Pulmonic Valve/Qp:Qs Value Units (Range) PV Vmax 1.15 m/sec PV VTI 22.06 cm PV peak gradient 5.3 mmHg PV mean gradient 3.1 mmHg RVOT Vmax 0.9 m/sec RVOT VTI 15.76 cm RVOT peak gradient 3.2 mmHg PV acceleration time58.94 msec PV ejection time 258.76 msec PV AT:ET 0.23 ratio Wall Motion: Segment Name Rest Base-Anteroseptal Normal Base-Anterior Normal Base-Anterolateral Normal Base-Posterolateral Normal Base-Inferior Normal Base-Inferoseptal Normal Mid-Anteroseptal Normal Mid-Anterior Normal Mid-Anterolateral Normal Mid-Posterolateral Normal Mid-Inferior Normal Mid-Inferoseptal Normal [place]-Septal Normal [place]-Anterior Normal [place]-Lateral Normal [place]-Inferior Normal [place]-Tip Normal This report has been electronically sign ed by: _ Stephen Blanton MD 03/03/2019 11:39:02 Images reviewed and interpretation kit [facility] Cardiac Ultrasound Laboratory Ghassan Gonzalez MD ECHO ORDERABLES Performing Organization Address City/State/ZIP Code Phon e Number HEARTLAB SYSTEM documented in this encounter Visit Diagnoses Diagnosis Congestive heart failure, unspecified HF chronicity, unspecified heart failure type documented in this encounter Care Teams Diesel Truck Mechanic Relationship Specialty Start Date End Date Maria Del Carmen Nogueira PA PCP - General 01/27/14 10/05/19 [address] [place] [address] documented as of this encounter
--- OUTSIDE RECORDS SUMMARY | 2021-08-10 01:39 | XMS_ITS | Encounter Summary ---
:1970 Author Organization [facility] [address] Care Team Providers Name Role Phone María Nogueira Primary Care Provider Encounter Details Date Type Department Care Team Description 02/25/2014 Hospital Encounter Ultrasound at [facility] Kendra Suárez MD [address] [place] [address] [place] [address] [place] [address] Social History Tobacco Use Types Packs/Day Years Used Date Never Assessed Sex Assigned at Date Recorded Not on file documented as of this encounter Plan of Treatment Not on filedocumented as of this encounter Procedures Procedure Name Priority Date/Time Associated Comments Diagnosis US TRANSVAGINAL NON Routine 02/25/2014 3:24 PM Re sults for this OB EST procedure are i n the results section. documented in this encounter Results US Transvaginal non OB (02/25/2014 3:24 PM EST) Anatomical Region Laterality Modality Ultrasound Specimen (Source) Anatomical Collection Method Collection Time Re ceived Time Location / / Volume Laterality 02/25/2014 3:24 PM EST Narrative 02/25/2014 3:45 PM EST Gynecological Report ? (Signed Final 02/25/2014 03:45 ? pm) Patient Info ID #: ? [id number] ?: ??[birth year] (43 yrs) Name: ? ROSIBEL BOWDEN ?Visit Date: 02/25/2014 03:20 pm Performed By Performed By: ?Flor Mckenna RDMS Attending: ? Floridalma NUÑEZ, Guilherme Rodriguez Referred By: ? MARÍA GAY MD Service(s) Provided ??UTV - Ultrasound - Transvaginal - [phone] ? [id number] Indications ??RLQ ABDOMINAL PAIN ??MENTRASAL ABN ------- History ------- Age: ?? 43 LMP: ?? 02/13/14 ?Day O f Cycle: ?? 13 ------ Uterus ------ Uterus: ? Visualized Position: ?? Anteverted Size (cm) ?L: ??8.79 ?W: ?? 544 ? H: ??5.11 Description: ?? Multiple fibroids - see below ------ Myomas ------ ??Site ? L(cm) ? W(cm) ? D(cm) ? Location ??Anterior ? 2.5 ? 2.2 ? 2.4 ? Intramural, ? displaces but ? does not ? involve ? endometrium ??Posterior ?1.6 ? 1.0 ? 1.4 ? Intramural ??Blood Flow ?RI ? PI ? Comments Endometrium Endometrium: ?Normal appea jose Thickness(mm): ?9.19 Right Ovary Status: ?? Visualized Size (cm) ?L: ??3.19 ?W: ?? 2.45 ? H: ??2.33 Vol (ml): ?9.5 Morphology: ?Normal appearance Left Ovary Status: ?? Visualized Size (cm) ?L: ??2.5 ? W: ?? 2.92 ? H: ??1.77 Vol (ml): ?6.8 Morphology: ?Normal appearance Impression Ultrasound - Transvaginal - Summary The uterus is anteverted. Two intramural fibroids. The endometrial echo measures 9.19 mm. The ovaries appear normal. This study was performed transvaginally . I ??viewed the images and agree with sid castillo interpretation. ? Guilherme Hedrick MD Electronically Signed Final Report ?? 03:45 pm Procedure Note Guilherme Hedrick MD - 02/25/2014Format ting of this note might be different from the original. Gynecological Report (Signed Final 10/2014 03:45 pm) Patient Info ID #: [id number] : [birth year] (43 y rs) Name: ROSIBEL BOWDEN Visit Date: 10/2014 03:20 pm Performed By Performed By: Flor Mckenna RDMS Attending: Guilherme Hedrick MD Referred By: MARÍA GAY MD Service(s) Provided [facility] - Ultrasound - Transvaginal - [phone] [id number] Indications RLQ ABDOMINAL PAIN MENTRASAL ABN ------- History ------- Age: 43 LMP: 02/13/14 Day Of Cycle: 13 ------ Uterus ------ Uterus: Visualized Position: Anteverted Size (cm) L: 8.79 W: 5.44 H: 5.11 Description: Multiple fibroids - see be low ------ Myomas ------ Site L(cm) W(cm) D(cm) Location Anterior 2.5 2.2 2.4 Intramural, displaces but does not involve endometrium Posterior 1.6 1.0 1.4 Intramural Blood Flow RI PI Comments Endometrium Endometrium: Normal appearance Thickness(mm): 9.19 Right Ovary Status: Visualized Size (cm) L: 3.19 W: 2.45 H: 2.33 Vol (ml): 9.5 Morphology: Normal appearance Left Ovary Status: Visualized Size (cm) L: 2.5 W: 2.92 H: 1.77 Vol (ml): 6.8 Morphology: Normal appearance Impression Ultrasound - Transvaginal - Summary The uterus is anteverted. Two intramural fibroids. The endometrial echo measures 9.19 mm. The ovaries appear normal. This study was performed transvaginally . I viewed the images and agree with the above interpretation. Guilherme Hedrick MD Electronically Signed Final Report 02/25 03:45 pm María GILLESPIE IMG US PELVIC ORDERABLES documented in this encounter Visit Diagnoses Not on filedocumented in this encounter Care Teams Certified Flight Instructor Relationship Specialty Start Date End Date María Nogueira PA PCP - General 01/27/14 10/05/19 [address] [place] [address] documented as of this encounter
--- OUTSIDE RECORDS SUMMARY | 2021-08-10 01:39 | XMS_ITS | Encounter Summary ---
:1970 Author Organization [facility] [place] [address] Care Team Providers Name Role Phone Maria Del Carmen Nogueira Primary Care Provider Encounter Details Date Type Department Care Team Description 11/15/2018 Ancillary Procedure Radiology Library at Cathi Nogueira [facility] [address] [place] [address] [place] [address] [phone] Social History Tobacco Use Types Packs/Day Years [...] encounter Procedures Procedure Name Priority Date/Time Associated Diagnosis Comme nts FILM LIBRARY Routine 11/15/2018 12:00 AM Results for this STORAGE ONLY DX EDT procedure ar e in CHEST the results section. documented in this encounter Results Film Library- Storage Only DX Chest (11/15/2018 12:00 AM EDT) Specimen (Source) Anatomical Location Collection Method / Collectio n Time Received Time / Laterality Volume Narrative RAD - 11/16/2018 1:07 AM EDT This exam is auto-finalizing. It's purpo se is for storage only. Maria Del Carmen [place] IMG FILM LIBRARY ORDERABLES Performing Organization Address City/State/ZIP Code Phon e Number [place], [place] documented in this encounter Visit Diagnoses Not on filedocumented in this encounter Care Teams Full Fashioned Garment Knitter Relationship Specialty Start Date End Date Maria Del Carmen Nogueira PA PCP - General 01/27/14 10/05/19 [address] [place] [address] documented as of this encounter
--- OUTSIDE RECORDS SUMMARY | 2021-08-10 01:39 | XMS_ITS | Encounter Summary ---
:1970 Author Organization [facility] [place] [address] Care Team Providers Name Role Phone Maria Del Carmen Nogueira Primary Care Provider Reason for Referral Consultation (Routine) - Closed Specialty Diagnoses / Procedures Referred By Contact Refer red To Contact Weight and Wellness Diagnoses Morbid obesity with BMI of 50.0-59.9, adult Tristan Gusman [facility]ness MD [address], [place] ORTHOPAEDIC SURGERY [address] [place] [address] Referral ID Status Reason Start Date Expiration Date Visits V isits Requested Authorized [id number] Closed Consult, 09/15/2017 09/15/2018 1 1 Test & Treat Reason for Visit Reason Comments Left Knee Pain Right Knee Pain Consultation (Routine) - Specialty Diagnoses / Procedures Referred By Contact Refer red To Contact Orthopaedics Diagnoses Osteoarthritis, knees bilateral Maria Del Carmen Nogueira [facility] [address] [facility] [address] [facility] [address] [place] [address] [place] [address] Referral ID Status Reason Start Date Expiration Date Visits V isikris Requested Authorized [id number] Consult, 05/28/2017 05/28/2018 1 1 Test & Treat Connection Center Encounter Details Date Type Department Care Team Description 09/15/2017 Office Visit Orthopaedics at [facility] Tristan Gusman Chronic pain of both knees; One [facility] MD Minoo Morbid obesity with BMI of 50.0-59.9, [place] [address] CENTER [phone] ORTHOPAEDIC SURGERY [place], [place] [address] Social History Tobacco Use Types Packs/Day Years [...] on file documented as of this encounter Last Filed Vital Signs Vital Sign Reading Time Taken Comments Blood Pressure 134/67 09/15/2017 9:30 AM EDT Pulse 81 09/15/2017 9:30 AM EDT Temperature - - Respiratory Rate - - Oxygen Saturation - - Inhaled Oxygen Concentration - - Weight 133.8 kg (295 lb) 09/15/2017 9:30 AM EDT Height 151.5 cm (4' 11.65) 09/15/2017 9:30 AM EDT Body Mass Index 58.3 09/15/2017 9:30 AM EDT documented in this encounter Progress Notes Chloe Ryan MD - 09/15/2017 9:40 AM EDT Images from the original note were not included. Department of Orthopaedics Division of Adult Joint Reconstructive Surgery CHIEF COMPLAINT: Chief Complaint Patient presents with ??? Left Knee Pain ??? Right Knee Pain ARTHROPLASTY HISTORY/PREVIOUS KNEE SURGERY: 1. none Rosibel was referred from [facility] [address] [place] [address] I.D.: Rosibel Dinh is a 47 y.o. year old female being seen today to discuss her bilateral knee pain. she notes the right knee is more symptomatic. Her history and physical exam were reviewed in detail. She states the knee has been symptomatic for years. The pain is predominantly global. There was not inciting trauma/injury. She does not describe hip pain. She feels that her knee pain is keeping her from walking, exercising to lose weight. Aggravating factors include activity. Alleviating factors include rest. Rosibel has no pain at night.. She can weight bear on both legs and does use assistive devices occasionally, uses a walker at home in the morning. She has tried physical therapy. Previous treatments tried: - Injections into the joint: Yes: Bilateral Synvisc - NSAIDs/Pain meds: Aleve, Tylenol used but not effective - Brace treatment: No Ms. Dinh denies fevers/chills/headache/chest pain/shortness of breath/abdominal pain/nausea or vomiting/weight changes She does not endorse a history of DVT/PE or clotting disorder. QUESTIONNAIRE RESPONSES: General Health, Prior Treatments, PreExisting Condition, Health Habits, About You 09/15/2017 PROMIS-10 General Health Fair PROMIS-10 Quality of Life Good PROMIS-10 Physical Health Fair PROMIS-10 Mental Health Fair PROMIS-10 Social Activity Fair PROMIS-10 Everyday Activities A little PROMIS-10 Pain 7 PROMIS-10 Fatigue Mild PROMIS-10 Social Roles Fair PROMIS-10 Anxious or Depressed Often PROMIS PHYSICAL SCORE (range 16-68) 34.9 PROMIS MENTAL SCORE (range 21-68) 36.3 Treatments Tried Walking aids (e.g.cane, walker), Physical therapy, Narcotics/opiods (Percocet, codeine, hydrocodone), Other injections or needle procedures Prior Surgery none KOOS JR Scores 31.31 TKA Grade 3 Alzheimers or dementia No Cirrohosis or liver disease No HIV/AIDS No Pain in more than one joint in legs Yes Back or neck pain Yes Heart attack No Heart failure No Unclog/bypass leg arteries No Stroke, blood clot, TIA No Asthma Yes Take medication for asthma Yes Emphysema, chronic bronchities, or COPD Yes Take medication for lung disease Yes Stomach ulcers/peptic ulcer disease No Diabetes Yes Diabetes caused problems with kidneys No Diabetes caused problems with eyes No Poor kidney function No Cancer No Weight (lbs) 295 Height (feet) 5 feet Height (Inches) 1 BMI 55.73 Ever used tobacco products Yes Tobacco frequency Daily or almost daily WHO - Tobacco Advice 6 (You are at risk of health and other problems from your current pattern of tobacco use.) Ever used alcoholic beverages Yes Alcohol frequency Once or twice WHO - Alcohol Advice 2 (You are at low risk of health and other problems from your current pattern of use.) Live Alone No Marital situation / Schooling High school graduate or GED Combined Household Income $10,000 to less than $15,000 # People Supported 1 Danish, , No, not Danish// Race White Health Literacy A little bit Currently working No Not working because: Not working due to disability Orthopeadics [facility] Response 09/15/2017 KOOS JR Scores 31.31 Spine [facility] Response 09/15/2017 KOOS JR Scores 31.31 Hoos/Koos Jr 09/15/2017 KOOS JR SCORING 31.31 Degree of difficutly: Knee stiffness in morning Extreme Degree of difficutly: Twisting/pivoting on knee Extreme Degree of difficutly: Strightening knee fully Moderate Degree of difficutly: Going up or down stairs Extreme Degree of difficutly: Standing upright Severe Degree of difficutly: Rising from sitting Moderate Degree of difficutly: Bending to floor/poultry picking machine tender object Severe ALLERGIES Allergies Allergen Reactions ??? Amoxicillin Nausea And Vomiting and Rash ??? Sulfa (Sulfonamide Antibiotics) Nausea And Vomiting and Rash Allergies to metals: none known. SOCIAL HISTORY: reports that she has been smoking Cigarettes. She has been smoking about 1.00 pack per day. She has never used smokeless tobacco. She reports that she drinks alcohol. She reports that she does not use illicit drugs. Occupation: Not working SIGNIFICANT MEDICAL COMORBIDITIES: Patient Active Problem List Diagnosis Code ??? Bilateral knee pain M25.561, M25.562 VITALS: BP Readings from Last 1 Encounters: 09/15/17 134/67 Pulse Readings from Last 1 Encounters: 09/15/17 81 Height: 151.5 cm (4' 11.65) Weight: 133.8 kg (295 lb) Body mass index is 58.3 kg/(m^2). PHYSICAL EXAM: Constitution: Rosibel Dinh sits in the clinic today alert, appears stated age and cooperative. She is alert and oriented. I have made the following determinations: Knee Exam: Right Prior surgery on this joint: No Knee ROM: Extension:0 Flexion: 95 Alignment: 0-4 degrees Varus Stability: A/P Translation <5mm. Varus (lateral stability) <5mm Valgus (medial stability) <5mm Extension La degrees or less Radiographic evidence of joint damage: [0= normal; 1=minimal ; 2= some osteophytes , some narrowing ; 3= moderate osteophytes, significant narrowing, mild deformity; 4= large osteophytes, marked narrowing, obvious deformity]: 4= large osteophytes, marked narrowing, obvious deformity Patella Tracking: Normal Skin Integrity: Normal Pulses Palpable: Right PT: Yes Right DP:Yes Motor/Sensory: Distal Motor: Normal Distal Sensory: Normal Quadriceps Strength: 5 Knee Effusion: 0-1+ Ecchymosis: none Patella: Patellar apprehension test: negative Patellar compression test: negative Tenderness: medial joint line I have made the following determinations: Knee Exam: Left Prior surgery on this joint: No Knee ROM: Extension:0 Flexion: 95 Alignment: 0-4 degrees Varus Stability: A/P Translation <5mm Varus (lateral stability) <5mm Valgus (medial stability) <5mm Extension La degrees or less Radiographic evidence of joint damage: [0= normal; 1=minimal ; 2= some osteophytes , some narrowing ; 3= moderate osteophytes, significant narrowing, mild deformity; 4= large osteophytes, marked narrowing, obvious deformity]: 4= large osteophytes, marked narrowing, obvious deformity Patella Tracking: Normal Skin Integrity: Normal Pulses Palpable: Left PT:Yes Left DP:Yes Motor/Sensory: Distal Motor:Normal Distal Sensory: Normal Quadriceps Strength:5 Knee Effusion: 0-1+ Ecchymosis: none Patella: Patellar apprehension test: negative Patellar compression test: negative Tenderness: medial joint line IMAGING: X-rays of the bilateral knees demonstrate shows DJD changes, likely chronic. ASSESSMENT AND PLAN: Ms. Dinh is a 47 y.o. year old female with severe osteoarthritis of her bilateral knees. Questions solicited and answered. Patient voiced understanding to info/instructions given. We discussed that given her current BMI 58 she is at extremely high risk for complications from surgery. Her diabetes and smoking are also significant risk factors. We discussed with her that in order to consider knee replacement surgery we would want to get her into a more favorable risk profile and this would occur as a result of losing weight. We provided her with a referral to the weight and wellness center here so she can talk with and to start to work on some strategies and options for losing weight. We will be happy to see her back on an as-needed basis once she has made some progress with this. We discussed that it would be reasonable to continue injections in the interim. Potential barriers to total joint arthroplasty: -BMI > 40: Yes -Active Tobacco use: Yes -Diabetes with hemoglobin A1C > 7.5: No A1C is 7.2 CHLOE RYAN MD Tristan Gusman MD - 09/15/2017 9:40 AM EDT Images from the original note were not included. Department of Orthopaedics Division of Adult Joint Reconstructive Surgery September 15, 2017 I had the pleasure of evaluating Rosibel Dinh in clinic in conjunction with Dr. Ryan. I have seen the patient and reviewed the history/physical and I agree with the details as written. The assessment and plan were formulated in discussion with me and I agree with them as documented. In brief this is a morbidly obese 47-year-old female with a BMI of [address] Moreno in the past for her bilateral knees. She actually undergoes periodic Synvisc injection into her knees for severe uzhw-ez-gsio arthritis. She is plagued by knee pain and presents to me to discuss the meritsof joint replacement. She was told in the past that she needed to lose weight but she is unsure as arelationship of her weight to her knees. We had a lengthy discussion about her weight and how it relates to both her arthritis and the potential for knee replacement surgery. We discussed the increasedrisk and complication associated with morbid obesity. I outlined with her weight where it is some data would suggest she is at a potential 20 fold increased risk of a complication. We discussed specifically wound issues and infection. I outlined with a periprosthetic joint infection that is recalcitrant to treatment she could end up with a fusion or an amputation above the knee. I was clear these arerare occurrences but things that can occur for someone with her comorbidities and risk factors. I also explained implant longevity and at her age and with her weight she most certainly would be lookingat revision surgery in the future. For her overall health we discussed the benefits of weight reduction as well in regards to prevention of diabetes and cardiovascular health. At this point I think it is imperative she lose weight before considering elective surgery. We discussed a referral to the weight and wellness center as well as potential for gastric bypass surgery. I was very clear that she would need to lose a significant amount of weight before I would consider joint replacement due to the increased risks. She was receptive to this conversation was amenable to meeting with the weight and wellness center. All questions were answered. Tristan Gusman MD, MS Reproduction Artist, Division of Adult Reconstructive Set Up Operator ToolEngineering Project Designer of Orthopaedics Department of Orthopaedics [facility] [id number] [email or web address] documented in this encounter Plan of Treatment Scheduled Referrals Name Type Priority Associated Diagnoses Order S chedule Referral to Weight Outpatient Referral Routine Morbid obesity with Ordered: [facility] BMI of 50.0-59.9, 09/15 adult documented as of this encounter Visit Diagnoses Diagnosis Chronic pain of both knees Morbid obesity with BMI of 50.0-59.9, ad ult Morbid obesity documented in this encounter Care Teams Corrections Officer Relationship Specialty Start Date End Date Maria Del Carmen Nogueira PA PCP - General 01/27/14 10/05/19 [address] [place] [address] documented as of this encounter
--- OUTSIDE RECORDS SUMMARY | 2021-08-10 01:39 | XMS_ITS | Encounter Summary ---
:1970 Author Organization [facility] [place] [address] Care Team Providers Name Role Phone Maria Del Carmen Nogueira Primary Care Provider Encounter Details Date Type Department Care Team Description 11/15/2018 Ancillary Procedure Radiology Library at Cathi Nogueira [facility] [address] [place] [address] [place] [address] [phone] Social History Tobacco Use Types Packs/Day Years [...] Diagnosis Comme nts FILM LIBRARY Routine 11/15/2018 12:05 AM Results for this STORAGE ONLY CT EDT procedure ar e in ABDOMEN AND PELVIS the resul ts section. documented in this encounter Results Film Library- Storage Only CT Abdomen & Pelvis (11/15/2018 12:05 AM EDT) Specimen (Source) Anatomical Location Collection Method / Collectio n Time Received Time / Laterality Volume Narrative RAD - 11/16/2018 1:10 AM EDT This exam is auto-finalizing. It's purpo se is for storage only. Maria Del Carmen [place] IMG FILM LIBRARY ORDERABLES Performing Organization Address City/State/ZIP Code Phon e Number [place], [place] documented in this encounter Visit Diagnoses Not on filedocumented in this encounter Care Teams Spool Salvager Relationship Specialty Start Date End Date Maria Del Carmen Nogueira PA PCP - General 01/27/14 10/05/19 [address] [place] [address] documented as of this encounter
--- OUTSIDE RECORDS SUMMARY | 2021-08-10 01:39 | XMS_ITS | Encounter Summary ---
:1970 Author Organization [place] [address] Care Team Providers Name Role Phone Maria Del Carmen Nogueira Primary Care Provider Encounter Details Date Type Department Care Team Description 09/15/2017 Hospital Encounter XRay at [facility] Tristan Gusman Bilateral chronic [address] [place] [address] Dr Minoo MD knee pain [facility] [address] [place] [phone] [place] [address] Social History Tobacco Use Types Packs/Day Years [...] Sig Dispensed Refills Start Date End Date ARIPiprazole (ABILIFY) 10 TAKE ONE TABLET BY 3 mg Tablet MOUTH EVERY DAY fenofibrate (TRIGLIDE) TAKE ONE TABLET BY 3 04/09 160 mg Tablet MOUTH EVERY DAY methylphenidate HCl TAKE ONE TABLET BY 0 04/12/19 18 (RITALIN) 20 mg Tablet MOUTH TWICE A DAY pantoprazole (PROTONIX) TAKE ONE TABLET BY 12 03/21 40 mg Tablet, Delayed MOUTH EVERY DAY Release (E.C.) chlorthalidone (HYGROTEN) Take 12.5 mg by 3 04/0511/19/2018 25 mg Tablet mouth daily. diclofenac (CATAFLAM) 50 TAKE ONE TABLET BY 5 11/19/2018 mg Tablet MOUTH TWICE A DAY gabapentin (NEURONTIN) TAKE ONE TABLET BY 3 04/0511/19/2018 800 mg Tablet MOUTH TWICE A DAY LANTUS SOLOSTAR U-100 INJECT 38 UNITS TWO 4 07/1211/19/2018 INSULIN pen TIMES A DAY lisinopril 10 mg. 3 04/02/2017 11/19/2018 (PRINIVIL;ZESTRIL) 20 mg Tablet metFORMIN (GLUCOPHAGE-XR) TAKE TWO TABLETS BY 3 0 04/08/2017 11/19/2018 500 mg Tablet Sustained MOUTH TWICE A DAY Release 24 hr methylphenidate HCl TAKE ONE TABLET BY 0 04/12/19 18 11/19/2018 (RITALIN) 10 mg Tablet MOUTH DAILY IN COMBINATION WITH 20MG TWICE DAILY oxyCODONE-acetaminophen TAKE ONE TABLET BY 0 03/2111/19/2018 (PERCOCET) 10-325 mg MOUTH FOUR TIMES A Tablet DAY NEEDED FOR PAIN documented as of this encounter Plan of Treatment Not on filedocumented as of this encounter Procedures Procedure Name Priority Date/Time Associated Diagnosis Comme nts XR KNEE STANDING Routine 09/15/2017 8:40 AM Bilateral chronic Results for this ALIGNMENT AP LAT EDT knee pain procedure a re in [facility] the result s BILAT section. documented in this encounter Results XR Knee Standing Alignment AP Lat [facility] Bilat (09/15/2017 8:40 AM EDT) Anatomical Region Laterality Modality Bilateral Digital Radiography Specimen (Source) Anatomical Location Collection Method / Collectio n Time Received Time / Laterality Volume Impressions 09/15/2017 9:07 AM EDT Medial deviation of the bilateral lower extremity weightbearing axes by approximately 3.5 cm each, with severe m pctrb-kcidcdfsvmf-bspcysqyldz OA of both knees. Narrative 09/15/2017 9:07 AM EDT EXAMINATION: XR KNEE STANDING ALIGNMENT AP LAT [place] [facility] BILAT CLINICAL HISTORY: Bilateral knee pain TECHNIQUE: Separate images of the pelvis , knees and feet were acquired in the AP projection with the patient standing. Th josé miguel images were stitched together to form a composite image of the pelvis and legs allowing for evaluation of lower extremity alignment in the weight bearin g position. Additionally, frontal, Munoz view, lateral, and sunrise vie w radiographs of bilateral knees were obtained. COMPARISON: None FINDINGS: There is severe joint space narrowing of the bilateral knee medial compartments. The lateral and patellofemoral compartme nt joint spaces are preserved. Large tricompartmental marginal osteophytes ar e seen at both knees. A 0.9 cm intra-articular body projects over the p osterior recesses of the left knee. There is a trace left knee joint effusio n. There is no significant right suprapatellar knee joint effusion. There is medial deviation of the bilater al lower extremity weightbearing axes by approximately 3.5 cm each. Incidentally noted projecting over the l eft pelvis material, possibly related to prior hernia repair. Procedure Note Nesha Lopez MD - 09/15/2017Formatting o f this note might be different from the original. EXAMINATION: XR KNEE STANDING ALIGNMENT AP LAT [place] SK[place]LINE BILAT CLINICAL HISTORY: Bilateral knee pain TECHNIQUE: Separate images of the pelvis , knees and feet were acquired in the AP projection with the patient standing. Th josé miguel images were stitched together to form a composite image of the pelvis and legs allowing for evaluation of lower extremity alignment in the weight bearin g position. Additionally, frontal, Munoz view, lateral, and sunrise vie w radiographs of bilateral knees were obtained. COMPARISON: None FINDINGS: There is severe joint space narrowing of the bilateral knee medial compartments. The lateral and patellofemoral compartme nt joint spaces are preserved. Large tricompartmental marginal osteophytes ar e seen at both knees. A 0.9 cm intra-articular body projects over the p osterior recesses of the left knee. There is a trace left knee joint effusio n. There is no significant right suprapatellar knee joint effusion. There is medial deviation of the bilater al lower extremity weightbearing axes by approximately 3.5 cm each. Incidentally noted projecting over the l eft pelvis material, possibly related to prior hernia repair. IMPRESSION Medial deviation of the bilateral lower extremity weightbearing axes by approximately 3.5 cm each, with severe m espfk-xoqkwwucxaw-ycasfwbdxpp OA of both knees. Tristan Gusman MD IMG DX ORDERABLES documented in this encounter Visit Diagnoses Diagnosis Bilateral chronic knee pain Pain in joint, lower leg documented in this encounter Care Teams Emergency Spill Response Technician Relationship Specialty Start Date End Date Maria Del Carmen Nogueira PA PCP - General 01/27/14 10/05/19 [address] [place] [address] documented as of this encounter
--- OUTSIDE RECORDS SUMMARY | 2021-08-10 01:39 | XMS_ITS | Encounter Summary ---
:1970 [place] [address] Care Team Providers Name Role Phone Maria Del Carmen Nogueira Primary Care Provider Reason for Visit Reason Onset Date Comments Referral 09/15/2017 Encounter Details Date Type Department Care Team Description 09/15/2017 Telephone Weight and Wellness at Giana Bai APRN Referral [facility] [address] [place] [address] [place] [address] [phone] Social History Tobacco Use Types Packs/Day Years [...] this encounter Miscellaneous Notes Telephone Encounter - Emilee Mccollum - 09/15/2017 11:07 AM EDT Please review Thank you documented in this encounter Plan of Treatment Not on filedocumented as of this encounter Visit Diagnoses Not on filedocumented in this encounter Care Teams Sales Compensation Analyst Relationship Specialty Start Date End Date Maria Del Carmen Nogueira PA PCP - General 01/27/14 10/05/19 [address] [place] [address] documented as of this encounter
--- OUTSIDE RECORDS SUMMARY | 2021-08-10 01:39 | XMS_ITS | Encounter Summary ---
:1970 Author Organization [facility] [place] [address] Care Team Providers Name Role Phone Maria Del Carmen Nogueira Primary Care Provider Reason for Visit Auth/Cert Specialty Diagnoses / Procedures Referred By Contact Refer red To Contact Diagnoses Acute renal failure Acute renal injury/ hypotension Referral ID Status Reason Start Date Expiration Date Visits Requ ested Visits Authorized [id number] 1 1 Encounter Details Date Type Department Care Team Description 11/16/2018 - Hospital Encounter 1 [facility] [address], Mylene Benton MD [facility] [place] [address] Acute kidney injury; 11/19/2018 [facility] Olvin Doran MD [address] [place] [address] [place] [address] [facility] [place] [address] Morbid obesity; [facility] HELEN (obst ructive sleep apnea) [place] [id number] Social History Tobacco Use Types Packs/Day Years [...] Mass Index 54.44 11/16/2018 1:45 AM EDT documented in this encounter Discharge Summaries Hoda Casas MD - 11/19/2018 11:15 AM EDT Images from the original note were not included. Discharge Summary Patient Name: Rosibel Bowden Patient Age: 48 y.o. Language: [place] Race: White Ethnicity: Not nor Admit date: 11/16/2018 Discharge date and time: 11/20/18 Attending Physician: Hoda Casas MD Primary Care Physician VERNA Irving Follow-up Recommendations for Providers: 1. Patient was sent home on cephalexin and doxycycline in addition to miconazole to complete treatment for both skin and bacteremia 2. Given the AFUA, mulitple medications were held/dose reduced. Would recommend extensive review of meds to prevent polypharmacy. 3. Recommend repeat CBC and CHIEF II DISPATCHER on follow up with PCP. Creatinine on discharge was 1.48. 4. Recommend repeat sleep study for CPAP. Patient now more amenable. 5. Encourage smoking cessation and weight loss. Pending Studies and Lab Data: Final Blood culture results 11/16. No growth day at day 3 on discharge. Inpatient Provider Contact Information: For questions regarding this document or issues relating to this hospitalization on the Medical Service, please contact your inpatient physician through the [facility] . Issues after hours and on weekends will be handled by the Hospitalist staff on-call. Discharge Diagnoses (Hospital Problems) and Secondary Diagnoses (Chronic Problems): Active Hospital Problems Diagnosis ??? Septic shock ??? Morbid obesity ??? HELEN (obstructive sleep apnea) ??? Type 2 diabetes mellitus ??? Acute kidney injury Resolved Hospital Problems No resolved problems to display. Active Non-Hospital Problems Diagnosis ??? Chronic low back pain ??? Depression ??? Anxiety ??? Hyperlipidemia ??? Hypertension ??? COPD (chronic obstructive pulmonary disease) ??? Cigarette smoker ??? Bilateral knee pain Operations/Major Procedures: Operations: Other Major Procedures: History of Presentation per H &P 11/16/18: The patient states that her symptoms started 4 days ago when she felt her urine burn with passing. She also felt a pressure with micturition. At this time, she did not have back pain that was worse than her usual baseline (she has chronic back pain). Her symptoms progressed to some increase in her back pain, but not too noticeable, along with gradual reduction in her urine output. In addition, she started to develop night sweats and felt chilly for the past 3 days. She had been increasing her fluid intake, but has noticed that she had a reduction in her food intake. In addition, she noticed that her glucose was more difficult to control, ranging as high as 500s (typically her BS are ~100-150). Shedenies any increased work of breathing or shortness of breath, but did notice mild wheezing since yesterday. She denies abdominal pain, nausea, vomiting, changes to her bowel movements. She denies a personal history of renal disease or autoimmune diseases. She has been mindful of taking her home diclofenac and stopped 4 days ago once symptoms started. She denies taking ibuprofen, gabapentin and lisino pril given her overal feeling of malaise. ?? Patient has had pyelonephritis with hospitalization years ago. Symptoms she states are similar, but recalls that back pain was worse. ?? In the ED at the OSH, she was given 2.5 L of fluids and 750 mg of levofloxacin. Duonebs were given for wheezing, with good effect. Levophed was started given systolic pressures dropping to the 60s. ?? CBC: WBC 8.79 Hb 13.7 Plts 156 ?? CMP: Na 134 K 3.9 Cl 94 CO2 27 BUN 56 Cr 4.24 Ca 8.8 Gluc 228 T bili 0.7 AST 61 ALT 33 Total protein 6.2 Albumin 2.6 Alk Phos 106 ?? Lactate: 1.5 ?? Urinalysis: Large leukocyte esterase, many WBC, large protein Hospital Course 1. Septic shock secondary to E coli bacteremia; panniculitis Pt was admitted to the ICU on levophed but with prompt aggressive fluid resuscitation was able to beweaned off pressors. She remained hemodynamically stable appropriate for transfer to the floor. Pt was treated for acute pyelonephritis causing severe sepsis with ceftriaxone and after morning rounds w/ concern for soft tissue infection under L pannus vancomycin was added for additional coverage of MRSA. A CXR was obtained to r/o other possible infectious etiology and was w/o consolidation. We later received notification from [place] that 3/3 blood cultures grew E.coli. Blood cultures at have been negative. She was later switched to cephalexin and doxycycline. Miconazole was continued. ?? 2. ??AFUA likely secondary to ATN - improving?? Acute non cardiogenic pulmonary edema from resuscitation- weight gain of 22 pounds Cr decreased from 3.79??on admission to 1.94??on 11/18. Per review of PCP medical records her Cr was 0.79 on 11/09/18. This was thought to be more from ATN from septic shock. Her BUN:Cr ratio was 15 and Urine sodium 65, which favors ATN as etiology of AFUA. Her urine output slowly improved. Creatinine ondischarge was 1.48. Given extra lasix for volume overload and started back on diuretics. Will need outpatient follow up. ?? 3.??Dyspnea secondary to volume overload and COPD - improving? She received >3L of fluid since admission for septic shock management of hypotension, suspect shemay have become volume overloaded. She has COPD and current every day smoker about 1/2 PPD. She alsoreports using O2 at night at home for sleep apnea but does not use CPAP because it didn't work for her. CXR negative for acute process on admission. She now has increased urine output with improvement in symptoms.??She was restarted on lasix diuretics given recent and still resolving AFUA. Please re-evaluate on follow up to see if her other meds can be safely restarted. ?? 4. T2DM HgbA1C 6.8%. She reports recent weight loss with [employer]. Metformin was held but glipizide was restarted on discharge. ?? 5. Mood disorder She was continued on her home medications??including??methyphenidate (dose reduced), abilify, venlafaxine (home desvenlafaxine), and wellbutrin ?? Vital Signs at Discharge: BP: 150/89, Heart Rate: 90, Temp: 36.4 ??C (97.5 ??F), Resp: 22, BMI (Calculated): 49.71 Height: 157.5 cm (5' 2) (11/16/18 0145) Weight: 135 kg (297 lb 9.9 oz) (11/17/18 0200) Functional and Cognitive Status: Awake, alert, NAD Important Studies and Lab Data: Labs: Last 3 wbc, hgb, hct plt Recent Labs 11/19/18 0513 11/18/18 0440 11/17/18 0125 WBC 8.6 8.5 7.4 HGB 13.2 12.8 12.2 HCT 40.9 40.3 36.9 PLATELET 212 158 125* Last 3 Lytes Recent Labs 11/19/18 0845 11/18/18 0440 11/17/18 0125 NA 139 137 135 K 3.5 3.5 3.2* CL 100 100 101 CO2 26 24 21* BUN 29* 41* 48* CREATININE 1.48* 1.94* 2.59* IMAGING: Xr Chest One View 11/16/2018 FINDINGS: Low lung volumes with bilateral atelectasis. Lungs otherwise clear. Trace bilateral pleural effusions. No pneumothorax. Cardiomediastinal silhouette is unchanged. ?? Low lung volumes with bibasilar atelectasis and trace pleural effusions. No evidence of pneumonia.? Discharge Conditions/Prognosis: Stable, improved Discharge to: home with VNA Updated Allergies/ADRs: Allergies Allergen Reactions ??? Amoxicillin Nausea And Vomiting and Rash ??? Sulfa (Sulfonamide Antibiotics) Nausea And Vomiting and Rash Immunizations Given this Hospitalization: There is no immunization history on file for this patient. Discharge Medications: Your Medications New Medications Dose Details cephALEXin 500 mg Cap Commonly known as: KEFLEX Take 1 capsule by mouth 4 times daily for 4 days. 500 mg Quantity: 16 capsule Refills: 0 doxycycline monohydrate 100 mg Cap Commonly known as: MONODOX Take 1 capsule by mouth 2 times daily for 4 days. 100 mg Quantity: 8 capsule Refills: 0 lactobacillus with pectin 75 million cell -100 mg Cap Take 1 capsule by mouth daily. 1 capsule Refills: 0 miconazole 2 % Powd Commonly known as: MICOTIN Apply topically 2 times daily. Quantity: 70 g Refills: 0 Continued medications with new dosing Dose Details buPROPion 100 mg Sr12 Commonly known as: WELLBUTRIN SR Take 150 mg by mouth 2 times daily. What changed: Another medication with the same name was removed. Continue taking this medication, and follow the directions you see here. 150 mg Refills: 0 gabapentin 800 mg Tab Commonly known as: NEURONTIN Take 1 tablet by mouth nightly. What changed: See the new instructions. 800 mg Quantity: 30 tablet Refills: 0 methylphenidate HCl 20 mg Tab Commonly known as: RITALIN TAKE ONE TABLET BY MOUTH TWICE A DAY What changed: Another medication with the same name was removed. Continue taking this medication, and follow the directions you see here. Refills: 0 oxyCODONE-acetaminophen 10-325 mg Tab Commonly known as: PERCOCET Take 0.5 tablets by mouth every 6 hours as needed for Pain. What changed: See the new instructions. 0.5 tablet Refills: 0 Continued medications, unchanged Dose Details * albuterol 2.5 mg /3 mL (0.083 %) Nebu Commonly known as: PROVENTIL Take 2.5 mg by nebulization every 4 hours as needed for Wheezing. 2.5 mg Refills: 0 * albuterol 90 mcg/actuation Hfaa Inhale 2 puffs into the lungs every 4 hours as needed for Wheezing. Use with spacer 2 puff Refills: 0 ARIPiprazole 10 mg Tab Commonly known as: ABILIFY TAKE ONE TABLET BY MOUTH EVERY DAY Refills: 3 atenolol 50 mg Tab Commonly known as: TENORMIN Take 50 mg by mouth daily. 50 mg Refills: 0 fenofibrate 160 mg Tab Commonly known as: TRIGLIDE TAKE ONE TABLET BY MOUTH EVERY DAY Refills: 3 fluticasone propionate 220 mcg/actuation Hfaa Commonly known as: FLOVENT Inhale 1 puff into the lungs 2 times daily. 1 puff Refills: 0 furosemide 40 mg Tab Commonly known as: LASIX Take 40 mg by mouth 2 times daily as needed. 40 mg Refills: 0 glipiZIDE 2.5 mg Tr24 Commonly known as: GLUCOTROL XL Take 2.5 mg by mouth daily. 2.5 mg Refills: 0 norethindrone 5 mg Tab Commonly known as: AYGESTIN Take 5 mg by mouth daily. 5 mg Refills: 0 pantoprazole 40 mg Tbec Commonly known as: PROTONIX TAKE ONE TABLET BY MOUTH EVERY DAY Refills: 12 rosuvastatin 40 mg Tab Commonly known as: CRESTOR Take 40 mg by mouth daily. 40 mg Refills: 0 * This list has 2 medication(s) that are the same as other medications prescribed for you. Read thedirections carefully, and ask your doctor or other care provider to review them with you. STOPPED Medications chlorthalidone 25 mg Tab Commonly known as: HYGROTEN diclofenac 50 mg Tab Commonly known as: CATAFLAM diclofenac 50 mg Tbec Commonly known as: VOLTAREN LANTUS SOLOSTAR U-100 INSULIN 100 unit/mL (3 mL) pen Generic drug: insulin glargine lisinopril 20 mg Tab Commonly known as: PRINIVIL;ZESTRIL metFORMIN 500 mg Tablet sr Commonly known as: GLUCOPHAGE-XR nicotine 21 mg/24 hr Pt24 Commonly known as: NICODERM CQ polyethylene glycol 17 gram Pwpk Commonly known as: MIRALAX Smoking Status at Discharge: Social History Tobacco Use Smoking Status Current Every Day Smoker ??? Packs/day: 1.00 ??? Types: Cigarettes Smokeless Tobacco Never Used Instructions Given to Patient at Discharge: Patient Instructions Instructions on Discharge to Home Why you were hospitalized - sepsis, urinary tract infection, skin infection, acute kidney injury Call your doctor or seek medical attention if you develop the following - chest pain, shortness of breath, fever, cough, weakness in an arm or leg Activity level - no restrictions Diet - no change in previous diet Driving - as before hospitalization Shower/Bath - permitted Wound Care - none Home Oxygen therapy - 2L NC at night as prior to admission Changes in Your Medications: New Medications: Keflex and Doxycycline Medication dose changes: Stop these medications: Follow-up: PCP: VERNA Fleming appointment 11/24/18 - Friday at 11am Your Inpatient Doctor: Hoda Casas MD Your Primary Care Provider: VERNA Irving [phone] For questions regarding this document or issues relating to this hospitalization on the Medical Service, please contact your inpatient physician through the [facility] . Issues after hours and on weekends will be handled by the Hospitalist staff on-call. General Instructions None Future Appointments and Orders Future Orders Complete By Expires Referral to Home Health - at DISCHARGE [[id number] CPT(R)] As directed Process Instructions: Scheduling Instructions: Comments: DOCUMENTATION FOR VNA SERVICES (INCLUDING THOSE PATIENTS WITH MEDICARE COVERAGE REQUIRING HOME VNA SERVICES AND/OR HOSPICE SERVICES) PATIENT'S LOCATION: [address] [facility] [address] [facility] [id number] [phone] (home) Cell: Telephone Information: [place] Worker's Name: self In discussion with the attending physician, it is certified that this patient is under their care and that they, or a Nurse Practitioner,Clinical Nurse specialist or Physician Edge Runner who is working directly with them, had a face to face encounter that meets the physician face to face encounter requirements with this patient on 11/19/2018 The encounter with the patient was in whole, or in part, for the following medical condition, which is the primary reason for home health care services: Wound care, blood pressure monitoring, In discussion with the provider, it is certified that, based on their findings, the following services are medically necessary for home health services. To provide the following care/treatments with the clinical findings supporting the need for servicesas follows: HOME CARE ORDERS: RN ORDERS:Assess vital signs, cardiopulmonary status, skin integrity, nutrition, hydration, elimination, meds effectiveness and management; reinforce education re health issues (chronic disease management: Type 2 DM) Please perform dressing changes as follows until area is healed or new dressing change orders are communicated by the PCP: Mepilex Ag to left pannus: Nursing to change dressing weekly and as needed for dressing with 50% or greater strike though drainage. 1. Cleanse wound and periwound skin with wound cleanser and gauze. 2. Cover wound and periwound skin with Mepilex Ag. ?? Please contact the wound care team at [phone] with skin and wound care concerns or questions. ?? Please assess for additional home care services (PT/OT/SALES PROMOTION COORDINATOR/AUTOMOBILE UPHOLSTERER) with goal of maximizing patient's functional abilities HOME HEALTH CARE AGENCY: [facility] PHONE: [phone] FAX: [phone] Start of care: 24-48 hours post-discharge FOR MEDICARE ONLY: In discussion with the attending physician, it is certified that the clinical findings support that this patient is temporarily homebound because absences from home require considerable and taxing effort due to: Dyspnea at rest/with ambulation > 10 feet Unable to ambulate community surfaces or distances unassisted due to weakness and deconditioning from inpatient hospitalization Please note that any additional orders needs or changes will need to be obtained from this patient'sPCP: VERNA Irving [address] / [place] [address] All A agencies which cover the area of patient's residence have been reviewed, either verbally or in writing, and patient/family have chosen the home health care agency noted Questions: Agency name and contact information: [facility] Patient location post discharge: home What services are requested: Registered Nurse Start date: Responsible MD post discharge contact info: PCP VERNA Nogueira Discharge References/Attachments None Hoda Casas MD Kadie Torres - 11/19/2018 8:44 AM EDT Images from the original note were not included. Discharge Summary Patient Name: Rosibel Bowden Patient Age: 48 y.o. Language: [place] Race: White Ethnicity: Not nor Admit date: 11/16/2018 Discharge date and time: 11/19/18 9:43 AM Attending Physician: Hoda Casas MD Discharge Physician: Hoda Casas MD Follow-up Recommendations for Providers: 1. Sepsis secondary to UTI vs. panniculitis - transitioned to oral regimen with keflex 500mg 4 time daily (first dose 11/19) and doxycycline 100mg BID (first dose 11/18) - Continue miconazole powder to the pannus area, recommend to keep area dry 2. AFUA secondary to ATN - Creatinine decreased from 3.79 on admission to 1.48 on 11/19/18 - recommend follow up creatinine level at PCP appointment on 11/24/18 11am. 3. Dyspnea secondary to volume overload and COPD - holding lasix to avoid further kidney injury - recommend CPAP at home for HELEN, patient reports she felt suffocated while using CPAP. Recommend medication for anxiety while using mask or trying different mask 4. T2DM - HgbA1C 6.8% - holding insulin - GFR 41 at discharge - restart oral diabetes medication when stable renal function at PCP follow up 5. Mood - continue wellbutrin 150mg BID - holding wellbutrin ER due to current renal dysfunction - holding ritalin due to concern for cardiac effects Inpatient Provider Contact Information: For questions regarding this document or issues relating to this hospitalization on the Medical Service, please contact your inpatient physician through the [facility] . Issues after hours and on weekends will be handled by the Hospitalist staff on-call. Discharge Diagnoses (Hospital Problems) and Secondary Diagnoses (Chronic Problems): Active Hospital Problems Diagnosis ??? Septic shock ??? Morbid obesity ??? HELEN (obstructive sleep apnea) ??? Type 2 diabetes mellitus ??? Acute kidney injury Resolved Hospital Problems No resolved problems to display. Active Non-Hospital Problems Diagnosis ??? Chronic low back pain ??? Depression ??? Anxiety ??? Hyperlipidemia ??? Hypertension ??? COPD (chronic obstructive pulmonary disease) ??? Cigarette smoker ??? Bilateral knee pain History of Presentation: Rosibel Bowden is a 48 year old female with a history of T2DM, mood disorder on ariprazole and COPDwho presented to [facility] with left flank pain, fever and decreased urine output. ?? She reports that 4 days ago she began feeling burning with urination. She developed lower abdominal pressure and back pain and eventually noticed her urine output decreased despite her not changing PO fluid intake. 3 days ago, she also developed chills with diaphoresis. She noticed her glucose levels became more difficult to control ranging as high as 500s (typically her BS are ~100-150). Her back pain increased and she presented to [facility]. ?? On arrival, she was found to have hypotension with urinalysis suspicious for infection. She was started on 750mg Levofloaxicin and 2.5L IVF. Her hypotension continued, lowest systolic was 60. She was admitted to the ICU and stated on Levophed. Lab work revealed leukocytosis (11K) and AFUA on admission (Cr 3.79) on admission. ?? She denies a personal history of renal disease, denies history of stones, recent catheter or procedures. She does take diclofenac at home for chronic back pain. She denies taking ibuprofen, gabapentin and lisinopril over the past several days. ICU Course: In the ICU, her blood pressure increased and she was weaned of Levophed. She was started on IV ceftriaxone for presumed pyelonephritis. ICU also noted purulent cellulitis of LLQ pannus concerning for infection so vancomycin was added for MRSA coverage. ?? She began to have some shortness of breath requiring 2L NC oxygen, so fluids were stopped. CXR was negative for infiltrate. Rosibel reports using 2L NC oxygen at home only while sleeping. She was prescribed a CPAP in the past for HELEN but did not use it. Reports smoking 1/2 PPD of cigarettes. She remained hemodynamically stable appropriate for transfer to the floor on 11/17/18 Remaining Hospital Course: ?? 1. Sepsis Secondary to UTI vs panniculitis - improving - Received notification from [place] that 3/3 blood cultures grew E.coli. Blood cultures here thus far have been negative - Lactate level normal. - She was significantly hypotensive on arrival, with signs of end organ damage given her increased creatinine level. UA suggested urinary source of infection, urine culture has shown gram negative rodswith culture sensitivities still pending. - Significant redness and warmth with open wound ?abscess on the underside of left pannus. - Hypotension improved with IVF and levophed. She has improved with IV ceftriaxone d/c 11/18 and Vancomycin d/c on 11/17 - nursing wound care consulted, please see note pasted below - transitioned to oral regimen with keflex 500mg 4 time daily (first dose 11/19) and doxycycline 100mg BID (first dose 11/18) - Continue miconazole powder to the pannus area, recommend to keep area dry ? 2. AFUA secondary to ATN - improving - Cr decreased from 3.79 on admission to 1.94 on 11/18. Per review of PCP medical records her Cr was 0.79 on 11/09/18 - AFUA likely secondary to ATN due to polypharmacy with nephrotoxic medication at home, NSAID use andsepsis. Her BUN:Cr ratio was 15 and Urine sodium 65, which favors ATN as etiology of AFUA more than apre-renal cause from systemic vasodilation/sepsis. - Holding nephrotoxic agents ?? 3. Dyspnea secondary to volume overload and COPD - improving - she received >3L of fluid since admission for septic shock management of hypotension, suspect she may have become volume overloaded - O2 Sat 93-95%. She denies shortness of breath now. At baseline she has COPD and current every day smoker about 1/2 PPD. She also reports using O2 at night at home for sleep apnea but does not use CPAP because it didn't work for her. - CXR negative for acute process on admission - She now has increased urine output and is net negative this morning with improvement in symptoms. Hesitant to start diuretics given recent and still resolving AFUA - PCP notes record her weight on 11/09/18 as 275lbs. Weight here is 297lbs. - ECHO on 04/27/18 showed LVEF 65-70% ?diastolic dysfunction, mild aortic regurg, mildly dilated left atrium, right ventricle and right atrial. Elevated pulmonary systolic pressure 50-60 mmgHg - Several episodes of desaturation documented overnight. She reports waking up with headaches. Recommend CPAP at home for her previously diagnosed HELEN. - continue home nebs as needed 4. T2DM - HgbA1C 6.8% - she reports recent weight loss with Weight [employer] - hold metformin and glipizide until stable renal function and PCP follow up ?? 5. Mood disorder - affect and mood appropriate on exam -continue her home medications??including??methyphenidate, abilify, venlafaxine (home desvenlafaxine), and wellbutrin ?? 6. oral thrush secondary to nebulizer - nystatin mouth wash Vital Signs at Discharge: BP: 150/89, Heart Rate: 90, Temp: 36.4 ??C (97.5 ??F), Resp: 22, BMI (Calculated): 49.71 Height: 157.5 cm (5' 2) (11/16/18 0145) Weight: 135 kg (297 lb 9.9 oz) (11/17/18 0200) Patient Vitals for the past 24 hrs: BP Temp Temp src Pulse Resp SpO2 11/19/18 0812 150/89 36.4 ??C (97.5 ??F) Oral 90 22 95 % 11/19/18 0401 127/74 36.6 ??C (97.9 ??F) Oral -- 24 93 % 11/18/18 2320 144/77 36.2 ??C (97.2 ??F) Oral -- 24 95 % 11/18/182009 115/64 36.7 ??C (98.1 ??F) Oral -- 24 93 % 11/18/18 1627 -- -- -- 88 -- -- 11/18/18 1104 120/80 36.5 ??C (97.7 ??F) Oral 98 20 95 % Functional and Cognitive Status: Alert and Oriented Important Studies and Lab Data: Labs: Last 3 wbc, hgb, hct plt Recent Labs 11/19/18 0513 11/18/180 11/17/18 0125 WBC 8.6 8.5 7.4 HGB 13.2 12.8 12.2 HCT 40.9 40.3 36.9 PLATELET 212 158 125* Last 3 Lytes Recent Labs 11/19/18 0845 11/18/18 04411/17/18 0125 NA 139 137 135 K 3.5 3.5 3.2* CL 100 100 101 CO2 26 24 21* BUN 29* 41* 48* CREATININE 1.48* 1.94* 2.59* Estimated Creatinine Clearance: 61 mL/min (A) (based on SCr of 1.48 mg/dL (H)). Last 3 LFTs Recent Labs 11/16/18 023 AST 48* ALT 24 ALKPHOS 105 BILITOT 0.6 Last Ca, Mg, Phos Recent Labs 11/19/18 0845 11/16/18 023 CALCIUM 9.7 < > 8.9 PHOS -- -- 2.7 < > = values in this interval not displayed. Last 3 Coags Recent Labs 11/16/18 023 PT 13.4* INR 1.2 PTT 29 Last 3 HgbA1C Recent Labs 11/16/18 023 HA1C 6.8* Results for ROSIBEL BOWDEN ( ) as of 11/17/2018 12:13 ?? Ref. Range 11/16/2018 03:31 Color UA Latest Ref Range: Yellow [place] Appearance UA Latest Ref Range: Clear Cloudy (A) Spec [place] UA Latest Ref Range: 1.002 - 1.030 1.017 pH UA Latest Ref Range: 5.0 - 8.0 5.0 Protein UA Latest Ref Range: Negative mg/dL >=500 (A) Glucose UA Latest Ref Range: Negative mg/dL Negative Ketones UA Latest Ref Range: Negative mg/dL Negative Bilirubin UA Latest Ref Range: Negative mg/dL Negative Urobilinogen UA Latest Ref Range: Normal mg/dL 2.0 (A) Blood UA Latest Ref Range: Negative mg/dL Large (A) Leukocytes UA Latest Ref Range: Negative mcL Moderate (A) Nitrite UA Latest Ref Range: Negative Negative WBC UA Latest Ref Range: 0 - 5 /HPF >182 (H) WBCs Clumping Latest Ref Range: None /HPF Many (A) RBC UA Latest Ref Range: 0 - 4 /HPF >182 (H) Bacteria UA Latest Ref Range: None /HPF Moderate (A) Squam Epith UA Latest Ref Range: <=4 /HPF 5 (H) Culture Reflexed Unknown Yes ? Results for ROSIBEL BOWDEN ( ) as of 11/17/2018 12:13 ?? Ref. Range 11/16/2018 02:44 U Creatinine Latest Units: mg/dL 120 U Sodium Latest Units: mmol/L 65 U Potassium Latest Units: mmol/L 33 U Chloride Latest Units: mmol/L 33 U Urea Nitrogen Latest Units: mg/dL 108 ? MICRO: Recent Labs 11/16/18 0331 URINECULTURE 1,000-9,000 cfu/ml Gram Negative Rods* ?? No results for input(s): GRAMSTAIN, BFCX, LOWERRESPCX, TISSUECX in the last 720 hours. Recent Labs 11/16/18 0630 BLOODCX No growth at 1 day. ?? Intake/Output Summary (Last 24 hours) at 11/19/2018 0943 Last data filed at 11/19/2018 0800 Gross per 24 hour Intake 1420 ml Output -- Net 1420 ml Studies: EXAMINATION: XR CHEST ONE VIEW ?? CLINICAL HISTORY: assess for CAP in new septic pt ? TECHNIQUE: AP view of the chest ?? COMPARISON: Chest radiograph 11/15/2018 ?? FINDINGS: Low lung volumes with bilateral atelectasis. Lungs otherwise clear. Trace bilateral pleural effusions. No pneumothorax. Cardiomediastinal silhouette is unchanged. ?? IMPRESSION Low lung volumes with bibasilar atelectasis and trace pleural effusions. No evidence of pneumonia. ?? I have personally reviewed the image(s) and the residents interpretation and agree with the findings, Ray Mejia at 11/16/2018 11:12 AM ?? Thank you for letting us participate in the care of this patient. For questions regarding this report, please contact the number below. Certified Wound Care Nurse Note ?? Situation: Asked to see Rosibel Bowden by Cami Felix, RN for Left side of pannus with moist reddned yeast like infection. Miconazole powder ordered. Background: [facility] notes reviewed for history, admitting diagnosis and active problem list. ?? Wound Assessment and Care Provided: Patient seen today in the MICU, RN at bedside. Patient states she has been out of it for 4 days and when she woke up the redness on the left pannus was present. Permission received to assess the pannus skin. Left side of pannus with Interdry Ag present which was removed. The left pannus is with redness, moisture, odor and denudement, the area is painful for patient. Cleansed with dermal wound cleanser and Mepilex Ag applied. The following picture was taken: ?? Left pannus, head is to the left: ? Ramiro Score: 16 Last Pressure Ulcer Prevention assessment: Shift Pressure Injury Prevention Occiput: No Injury Thoracic Spine: No Injury Sacral: No Injury Ischial - left: No Injury Ischial - right: No Injury Heel - left: Redness, Blanchable Heel - right: Redness, Blanchable Elbow - left: No Injury Elbow - right: No Injury Device Sites: O2 sat monitor, oxygen tubing, SCD's/venodynes, IV sites, briggs, ECG Leads, BP Cuff Other Sites: ID bands ?? Nutritional Status Wt Readings from Last 1 Encounters: 11/16/18 123.3 kg (271 lb 13.2 oz) ?? Body mass index is 49.72 kg/m??. ?? Labs Lab Results Component Value Date ?? ALBUMIN 3.2 11/16/2018 ?? WBC 11.0 (H) 11/16/2018 ?? HGB 13.5 11/16/2018 ?? HCT 41.5 11/16/2018 ? Nutritional Intake Nutrition Assessments Fluids: adequate Fluids Requirement: MIVF Nutrition Interventions Nutrition Interventions: referred to dietitian ?? Current bed: [facility] ?? Assessment: Patient is with denudement from moisture under the left pannus. Intertrigo best treated with silver foam for now to absorb moisture, prevent skin to skin contact and provide an antimicrobial component. After the area is better and not as moist then can return to Miconazole powder. ?? Wound Care Recommendations: ?? Mepilex Ag to left pannus: Nursing to change dressing weekly and as needed for dressing with 50% or greater strike though drainage. 1. Cleanse wound and periwound skin with wound cleanser and gauze. 2. Cover wound and periwound skin with Mepilex Ag. ?? Wound Care Team will plan to follow: weekly. ?? Discussed plan with: /RADHA/PA: Dr. Tee RN: Doe Arnold ?? Please contact TANIA MCFARLAND RN on pager [phone] or the wound care team at [phone] or pager [phone] skin and wound care concerns or questions. ?? Electronically Signed By: TANIA MCFARLAND RN Nutrition Services - Initial Note Reason for Nutrition Intervention: ICU admit ?? Diet Order: CHO Counting level 2 ?? Appetite: Fair per pt ?? Food allergies: NKFA ?? Chewing/Swallowing difficulty: none per pt ?? Ht Readings from Last 3 Encounters: 11/16/18 157.5 cm (5' 2) 09/15/17 151.5 cm (4' 11.65) ? Wt Readings from Last 3 Encounters: 11/17/18 135 kg (297 lb 9.9 oz) 09/15/17 133.8 kg (295 lb) ? Body mass index is 54.44 kg/m??. ?? Assessment: Patient seen for ICU admit, currently in room 149A. Patient denies need for nutrition education. She reported a fair appetite without difficulty chewing or swallowing. She is tolerating current diet without nausea or vomiting. Patient states she ate 100% of her bran flakes cereal for breakfast and 50% of her tuna sandwich for lunch 11/18. Patient is receiving assistance for meal choices from city planning aide. She reported a poor appetite for 1 week GEARMAN, denies any unintentional wt loss. Patient has intentionally lost 100#s over the past year following the weight watchers program. According to graphs, wt was documented at 271#s on 11/16/18. Patient declined nutritional supplements or healthy snacks. Patient had no further questions at this time. Encouraged patient to contact Food and Nutrition services with any questions that may arise. Nutrition will continue to follow to monitor PO intake. ?? Last noted bowel movement 11/17/18. ?? Nutrition Plan: Continue current diet. Recommend Daily Multi Vitamins. Monitor weight. Encourage good po intake. Support and encouragement provided. ?? Nutrition services to follow weekly through hospital course unless consulted in the interim. CORIE XiaoR Pager# [phone] ??2:55 PM Pending Studies and Lab Data: none Discharge Conditions/Prognosis: Stable Discharge to: Home Updated Allergies/ADRs: Allergies Allergen Reactions ??? Amoxicillin Nausea And Vomiting and Rash ??? Sulfa (Sulfonamide Antibiotics) Nausea And Vomiting and Rash Immunizations Given this Hospitalization: There is no immunization history on file for this patient. Discharge Medications: Your Medications UNREVIEWED medications - Discuss With Your Provider Dose Details * albuterol 2.5 mg /3 mL (0.083 %) Nebu Commonly known as: PROVENTIL Take 2.5 mg by nebulization every 4 hours as needed for Wheezing. 2.5 mg Refills: 0 * albuterol 90 mcg/actuation Hfaa Inhale 2 puffs into the lungs every 4 hours as needed for Wheezing. Use with spacer 2 puff Refills: 0 ARIPiprazole 10 mg Tab Commonly known as: ABILIFY TAKE ONE TABLET BY MOUTH EVERY DAY Refills: 3 atenolol 50 mg Tab Commonly known as: TENORMIN Take 50 mg by mouth daily. 50 mg Refills: 0 * buPROPion 100 mg Sr12 Commonly known as: WELLBUTRIN SR Take 150 mg by mouth 2 times daily. 150 mg Refills: 0 * buPROPion 150 mg Tablet Extended Release 24 hr Commonly known as: WELLBUTRIN XL Take 300 mg by mouth every morning. 300 mg Refills: 0 chlorthalidone 25 mg Tab Commonly known as: HYGROTEN Take 12.5 mg by mouth daily. 12.5 mg Refills: 3 diclofenac 50 mg Tab Commonly known as: CATAFLAM TAKE ONE TABLET BY MOUTH TWICE A DAY Refills: 5 diclofenac 50 mg Tbec Commonly known as: VOLTAREN Take 50 mg by mouth 2 times daily. 50 mg Refills: 0 fenofibrate 160 mg Tab Commonly known as: TRIGLIDE TAKE ONE TABLET BY MOUTH EVERY DAY Refills: 3 fluticasone propionate 220 mcg/actuation Hfaa Commonly known as: FLOVENT Inhale 1 puff into the lungs 2 times daily. 1 puff Refills: 0 furosemide 40 mg Tab Commonly known as: LASIX Take 40 mg by mouth 2 times daily as needed. 40 mg Refills: 0 gabapentin 800 mg Tab Commonly known as: NEURONTIN TAKE ONE TABLET BY MOUTH TWICE A DAY Refills: 3 glipiZIDE 2.5 mg Tr24 Commonly known as: GLUCOTROL XL Take 2.5 mg by mouth daily. 2.5 mg Refills: 0 LANTUS SOLOSTAR U-100 INSULIN 100 unit/mL (3 mL) pen INJECT 38 UNITS TWO TIMES A DAY Generic drug: insulin glargine Refills: 4 lisinopril 20 mg Tab Commonly known as: PRINIVIL;ZESTRIL 10 mg. 10 mg Refills: 3 metFORMIN 500 mg Tablet sr Commonly known as: GLUCOPHAGE-XR TAKE TWO TABLETS BY MOUTH TWICE A DAY Refills: 3 * methylphenidate HCl 10 mg Tab Commonly known as: RITALIN TAKE ONE TABLET BY MOUTH DAILY IN COMBINATION WITH 20MG TWICE DAILY Refills: 0 * methylphenidate HCl 20 mg Tab Commonly known as: RITALIN TAKE ONE TABLET BY MOUTH TWICE A DAY Refills: 0 nicotine 21 mg/24 hr Pt24 Commonly known as: NICODERM CQ Place 1 patch onto the skin every 24 hours. 1 patch Refills: 0 norethindrone 5 mg Tab Commonly known as: AYGESTIN Take 5 mg by mouth daily. 5 mg Refills: 0 oxyCODONE-acetaminophen 10-325 mg Tab Commonly known as: PERCOCET TAKE ONE TABLET BY MOUTH FOUR TIMES A DAY NEEDED FOR PAIN Refills: 0 pantoprazole 40 mg Tbec Commonly known as: PROTONIX TAKE ONE TABLET BY MOUTH EVERY DAY Refills: 12 polyethylene glycol 17 gram Pwpk Commonly known as: MIRALAX Take 17 g by mouth daily. 17 g Refills: 0 rosuvastatin 40 mg Tab Commonly known as: CRESTOR Take 40 mg by mouth daily. 40 mg Refills: 0 * This list has 6 medication(s) that are the same as other medications prescribed for you. Read thedirections carefully, and ask your doctor or other care provider to review them with you. Smoking Status at Discharge: Social History Tobacco Use Smoking Status Current Every Day Smoker ??? Packs/day: 1.00 ??? Types: Cigarettes Smokeless Tobacco Never Used Instructions Given to Patient at Discharge: Patient Instructions Instructions on Discharge to Home Why you were hospitalized - sepsis, urinary tract infection, skin infection, acute kidney injury Call your doctor or seek medical attention if you develop the following - chest pain, shortness of breath, fever, cough, weakness in an arm or leg Activity level - no restrictions Diet - no change in previous diet Driving - as before hospitalization Shower/Bath - permitted Wound Care - none Home Oxygen therapy - 2L NC at night as prior to admission Changes in Your Medications: New Medications: Keflex and Doxycycline Medication dose changes: Stop these medications: Follow-up: PCP: VERNA Fleming appointment 11/24/18 - Friday at 11am Your Inpatient Doctor: Hdoa Casas MD Your Primary Care Provider: VERNA Irving [phone] For questions regarding this document or issues relating to this hospitalization on the Medical Service, please contact your inpatient physician through the [facility] . Issues after hours and on weekends will be handled by the Hospitalist staff on-call. General Instructions None Discharge References/Attachments None documented in this encounter Discharge Instructions Patient InstructionsHoda Casas MD - 11/18/2018 2:26 PM EDT Instructions on Discharge to Home Why you were hospitalized - sepsis, urinary tract infection, skin infection, acute kidney injury Call your doctor or seek medical attention if you develop the following - chest pain, shortness of breath, fever, cough, weakness in an arm or leg Activity level - no restrictions Diet - no change in previous diet Driving - as before hospitalization Shower/Bath - permitted Wound Care - none Home Oxygen therapy - 2L NC at night as prior to admission Changes in Your Medications: New Medications: Keflex and Doxycycline Medication dose changes: Stop these medications: Follow-up: PCP: VERNA Fleming appointment 11/24/18 - Friday at 11am Your Inpatient Doctor: Hoda Casas MD Your Primary Care Provider: VERNA Irving [phone] For questions regarding this document or issues relating to this hospitalization on the Medical Service, please contact your inpatient physician through the [facility] . Issues after hours and on weekends will be handled by the Hospitalist staff on-call. documented in this encounter Medications at Time of Discharge Medication Sig Dispensed Refills Start Date End Date lactobacillus with Take 1 capsule by 0 11/19/2018 pectin 75 million cell mouth daily. -100 mg Capsule miconazole (MICOTIN) 2 % Apply topically 2 70 g 0 10/0 04/2018 Powder times daily. gabapentin (NEURONTIN) Take 1 tablet by 30 tablet 0 019 800 mg Tablet mouth nightly. oxyCODONE-acetaminophen Take 0.5 tablets by 0 04/2018 (PERCOCET) 10-325 mg mouth every 6 hours Tablet as needed for Pain. rosuvastatin (CRESTOR) Take 40 mg by mouth 0 40 mg Tablet daily. furosemide (LASIX) 40 mg Take 40 mg by mouth 0 Tablet 2 times daily as needed. atenolol (TENORMIN) 50 Take 50 mg by mouth 0 mg Tablet daily. fluticasone propionate Inhale 1 puff into 0 (FLOVENT) 220 the lungs 2 times mcg/actuation HFA daily. Aerosol Inhaler albuterol (PROVENTIL) Take 2.5 mg by 0 2.5 mg /3 mL (0.083 %) nebulization every 4 Solution for hours as needed for Nebulization Wheezing. albuterol 90 Inhale 2 puffs into 0 mcg/actuation HFA the lungs every 4 Aerosol Inhaler hours as needed for Wheezing. Use with spacer norethindrone (AYGESTIN) Take 5 mg by mouth 0 5 mg Tablet daily. buPROPion (WELLBUTRIN Take 150 mg by mouth 0 SR) 100 mg tablet 2 times daily. sustained-release 12 hr glipiZIDE (GLUCOTROL XL) Take 2.5 mg by mouth 0 2.5 mg Tablet Extended daily. Rel 24 hr ARIPiprazole (ABILIFY) TAKE ONE TABLET BY 3 04/09 10 mg Tablet MOUTH EVERY DAY fenofibrate (TRIGLIDE) TAKE ONE TABLET BY 3 04/09 160 mg Tablet MOUTH EVERY DAY methylphenidate HCl TAKE ONE TABLET BY 0 04/12/19 18 (RITALIN) 20 mg Tablet MOUTH TWICE A DAY pantoprazole (PROTONIX) TAKE ONE TABLET BY 03/21 40 mg Tablet, Delayed MOUTH EVERY DAY Release (E.C.) cephALEXin (KEFLEX) 500 Take 1 capsule by 16 capsule 0 11/1911/23/2018 mg Capsule mouth 4 times daily for 4 days. doxycycline monohydrate Take 1 capsule by 8 capsule 0 11/1911/21/2018 (MONODOX) 100 mg Capsule mouth 2 times daily for 4 days. documented as of this encounter Progress Notes Hoda Casas MD - 11/19/2018 11:15 AM EDT Hospital Medicine - Attending Day of Discharge Documentation Discharge diagnosis Active Hospital Problems Diagnosis ??? Septic shock ??? Morbid obesity ??? HELEN (obstructive sleep apnea) ??? Type 2 diabetes mellitus ??? Acute kidney injury Resolved Hospital Problems No resolved problems to display. Secondary Issues Active Non-Hospital Problems Diagnosis ??? Chronic low back pain ??? Depression ??? Anxiety ??? Hyperlipidemia ??? Hypertension ??? COPD (chronic obstructive pulmonary disease) ??? Cigarette smoker ??? Bilateral knee pain I have personally seen and examined the patient and they are ready for discharge. I spent >30 minutes (Day of Discharge Code 88855) involved in the final examination of the patient, discussion of the hospital stay, instructions for continuing care to all relevant caregivers, and preparation of discharge records, prescriptions and referral forms. Lengthy discussion with patient about compliance with smoking cessation, weight loss and hygiene. Plans ? Discharge to home with [facility] ? Activity: as tolerated ? Diet: carb control ? Follow-up scheduled with PCP - 11/24 ? Please see the Discharge Summary for complete details of any medication changes and additional plans. Hoda Casas MD igifredo Mota RN - 11/19/2018 10:28 AM EDT Rosibel Bowden discharged to Home by private car with sister. Meds given per order, see MAR. All belongings sent with patient. STEWART removed, skin free from pressure ulcers. Discharge instructions, medications, and follow-up appointments reviewed, education provided on when to take her schedule meds and meds that are discontinued, all questions answered. [facility] paperwork faxed. Patient instructed to call with concerns. Maci Antonio DT - 11/18/2018 2:41 PM EDT Nutrition Services - Initial Note Rosibel Bowden : 1970 AGE: 48 y.o. Patient Active Problem List Diagnosis Date Noted ??? Hospital-Septic shock 11/18/2018 ??? Hospital-Morbid obesity 11/18/2018 ??? Hospital-HELEN (obstructive sleep apnea) 11/18/2018 ??? Chronic low back pain 11/17/2018 ??? Depression 11/17/2018 ??? Anxiety 11/17/2018 ??? Hyperlipidemia 11/17/2018 ??? Hypertension 11/17/2018 ??? Hospital-Type 2 diabetes mellitus 11/17/2018 ??? COPD (chronic obstructive pulmonary disease) 11/17/2018 ??? Cigarette smoker 11/17/2018 ??? Hospital-Acute kidney injury 11/15/2018 ??? Bilateral knee pain 09/15/2017 Reason for Nutrition Intervention: ICU admit Diet Order: CHO Counting level 2 Appetite: Fair per pt Food allergies: NKFA Chewing/Swallowing difficulty: none per pt Ht Readings from Last 3 Encounters: 11/16/18 157.5 cm (5' 2) 09/15/17 151.5 cm (4' 11.65) Wt Readings from Last 3 Encounters: 11/17/18 135 kg (297 lb 9.9 oz) 09/15/17 133.8 kg (295 lb) Body mass index is 54.44 kg/m??. Assessment: Patient seen for ICU admit, currently in room 149A. Patient denies need for nutrition education. She reported a fair appetite without difficulty chewing or swallowing. She is tolerating current diet without nausea or vomiting. Patient states she ate 100% of her bran flakes cereal for breakfast and 50% of her tuna sandwich for lunch 11/18. Patient is receiving assistance for meal choices from city planning aide. She reported a poor appetite for 1 week GEARMAN, denies any unintentional wt loss. Patient has intentionally lost 100#s over the past year following the weight watchers program. According to graphs, wt was documented at 271#s on 11/16/18. Patient declined nutritional supplements or healthy snacks. Patient had no further questions at this time. Encouraged patient to contact Food and Nutrition services with any questions that may arise. Nutrition will continue to follow to monitor PO intake. Last noted bowel movement 11/17/18. Nutrition Plan: Continue current diet. Recommend Daily Multi Vitamins. Monitor weight. Encourage good po intake. Support and encouragement provided. Nutrition services to follow weekly through hospital course unless consulted in the interim. CORIE XiaoR Pager# [phone] Hoda Casas MD - 11/18/2018 9:05 AM EDT Hospital Medicine Attending Inpatient Daily Progress Note Admit Date: 11/16/2018 Hospital Day 2 days Active Hospital Problems Diagnosis ??? Septic shock ??? Morbid obesity ??? HELEN (obstructive sleep apnea) ??? Type 2 diabetes mellitus ??? Acute kidney injury Resolved Hospital Problems No resolved problems to display. PMH Active Non-Hospital Problems Diagnosis ??? Chronic low back pain ??? Depression ??? Anxiety ??? Hyperlipidemia ??? Hypertension ??? COPD (chronic obstructive pulmonary disease) ??? Cigarette smoker ??? Bilateral knee pain INTERVAL HISTORY/OVERNIGHT EVENTS: - [facility] - feeling better today - sitting up in the chair - blood culture from [facility] grew E coli 3 bottles - denies any pain - still with episodes of bleeding from what looks like micorabcesses REVIEW OF SYSTEMS: Weight gain, noted to be 275lbs on recent visit to PCP no cough no chest pain no shortness of breath no abdominal pain no nausea, no vomiting no diarrhea no hematuria PHYSICAL EXAMINATION: Vitals Range last 24 hrs Temperature Temp: [36.6 ??C (97.9 ??F)-37 ??C (98.6 ??F)] Heart Rate Heart Rate: [89-95] Blood Pressure BP: (112-136)/(68-84) Respiratory Rate Resp: [20-29] SpO2 SpO2: [91 %-97 %] Intake/Output Summary (Last 24 hours) at 11/18/2018 0905 Last data filed at 11/17/2018 1700 Gross per 24 hour Intake 600 ml Output 1150 ml Net -550 ml Patient Vitals for the past 168 hrs: Weight 11/17/18 0200 135 kg (297 lb 9.9 oz) 11/16/18 0145 123.3 kg (271 lb 13.2 oz) GENERAL: awake, alert, NAD HEENT: [place] conjunctiva, anicteric sclerae, oropharynx clear HEART: regular rate and rhythm, no murmur LUNGS: symmetrical chest expansion, no retractions, BS clear ABDOMEN: soft, normoactive bowel sounds EXT: no edema, pulses equal NEURO: Alert and oriented x 3 No apparent sensory/motor deficit Studies reviewed in eDH. Remarkable for the following: LABS: Last 3 wbc, hgb, hct plt Recent Labs 11/18/18 0440 11/17/18 0125 11/16/18 0230 WBC 8.5 7.4 11.0* HGB 12.8 12.2 13.5 HCT 40.3 36.9 41.5 PLATELET 158 125* 173 Last 3 Lytes Recent Labs 11/18/18 0440 11/17/18 0125 11/16/18 0230 NA 137 135 134* K 3.5 3.2* 3.8 CL 100 101 95* CO2 24 21* 23 BUN 41* 48* 57* CREATININE 1.94* 2.59* 3.79* FSBG Trend: Recent Labs 11/18/18 0637 11/17/18 1956 11/17/18 1613 11/17/18 1147 11/17/18 0724 11/17/18 0622 11/16/18 2013 11/16/18 1630 11/16/18 1137 11/16/18 0723 POCGLU 140 169 154 167 166 136 191 137 131 132 MICROBIOLOGY: Recent Labs 11/16/18 0331 URINECULTURE 1,000-9,000 cfu/ml Gram Negative Rods* No results for input(s): GRAMSTAIN, BFCX, LOWERRESPCX, TISSUECX in the last 720 hours. Recent Labs 11/16/18 0630 BLOODCX No growth at 1 day. ECG: No results for input(s): DIAGLINE, QTCCALC in the last 720 hours. VASCULAR: No results for input(s): VBTEXTRPT in the last 720 hours. IMAGING: Radiology: Xr Chest One View 11/16/2018 FINDINGS: Low lung volumes with bilateral atelectasis. Lungs otherwise clear. Trace bilateral pleural effusions. No pneumothorax. Cardiomediastinal silhouette is unchanged. ?? Low lung volumes with bibasilar atelectasis and trace pleural effusions. No evidence of pneumonia.?? Inpatient Medications: Scheduled ??? famotidine 20 mg Oral Daily ??? methylphenidate HCl 20 mg Oral BID ??? methylphenidate HCl 10 mg Oral QAM ??? ARIPiprazole 10 mg Oral Daily ??? sodium chloride 0.9 % (flush) 5 mL Intravenous BID ??? heparin (Porcine) 5,000 Units Subcutaneous Q8H JERARDO ??? cefTRIAXone 2 g Intravenous Q24H ??? fluticasone propionate 2 puff Inhalation BID ??? buPROPion 300 mg Oral Daily ??? venlafaxine 150 mg Oral Daily with breakfast ??? miconazole Topical (Top) BID ??? nystatin 500,000 Units Oral 4 Times Daily ? ? insulin lispro 2-8 Units Subcutaneous 4 Times Daily AC & HS Continuous infusions: PRN: acetaminophen, sodium chloride 0.9 % (flush), lidocaine, ipratropium- albuterol, Glucose 40% oral gel OR dextrose OR glucagon (human recombinant) ASSESSMENT: 48F PMHx significant for??mood disorder, obesity, T2DM, and COPD, HELEN but non comoliant with CPAP??who was admitted on 11/06 for septic shock thought to be from UTI. She was initially admitted to ICU requiring aggressive fluid resuscitation and levophed. She was started on ceftriaxone and vancomycin was later added as she was round to have a rash under her pannus. Blood cultures shows NGTD. Urine culture later grew 1-9K GNR. The wound under the pannus appears to look like a fungal infection that may have secondary bacterial infection that might have caused her to be septic. Blood culture results from OSH grew E coli 3/4 bottles. Sensitivities pending at this time. Her course is complicated by AFUA. PCP records were obtained and revealed baseline kidney function was 0.79 (taken 1 week ago). She appears to be making urine with slow down trending creatinine. PLAN: # Septic shock from E Coli bacteremia requiring pressors and fluid resuscitation - thought to be UTIvs panniculitis - BC 11/16 shows NGTD - continue rocephin (11/16-P) till sensitivities available - continue cefpodixime - add doxycycline to cover wound - urine culture 1-9K GNR - continue miconazole - pannus area - keep area dry ?? # AFUA - Most likely ATN due to septic shock - Baseline Scr of 0.7 increased to more than 4 - maintain oral fluid intake - strict Input/output - follow creatinine closely - hold home NSAIDs/diclofenac ?? # DM type 2, controlled - continue moderate insulin sliding scale - hold glipizide and metformin until stable renal function ?? # Psych/ mood disorder -continue home methyphenidate, abilify, venlafaxine (home desvenlafaxine), and wellbutrin ?? # oral thrush -nystatin - pt counseled to rinse mouth after using steroid inhalers # COPD, stable - continue nebs PRN ?? DVT Prophylaxis: Heparin SC Tubes/Drains: Anshul briggs today IV Access: PIV Code Status: FULL Disposition: Likely home if cleared by PT/OT once kidney function improves Primary Care Provider: VERNA Irving [phone] Inpatient Certification Attestation: IPI Certification I certify that I am a D-H credentialed attending provider with admitting privileges and that the patient meets or has met medical necessity to require an inpatient IPI level of care meeting a minimum of two midnights or is on the [facility] inpatient only procedure list (status C) due to: acute kidney injury necessitating close monitoring of fluid balance such as intravenous fluids and/or titration of medication to achieve optimal effect and minimize the chance of immediate or severe side effects; sepsis on IV antibiotics Hoda Casas MD Team Pager(MD Coverage 09/09): #[phone] 11/18/2018 Cammie Gallego RN - 11/17/2018 7:22 PM EDT 1921 patient transported, in stable condition, via bed, to new room on Med-Surg--accompanied by transporters. Patient chart, medications, medical equipment, et personal belongings sent with the patient. Patient to notify family of transfer Hoda Casas MD - 11/17/2018 10:49 AM EDT [facility] Medicine Attending Inpatient Daily Progress Note Admit Date: 11/16/2018 Hospital Day 2 days Active Hospital Problems Diagnosis ??? Septic shock ??? Morbid obesity ??? HELEN (obstructive sleep apnea) ??? Type 2 diabetes mellitus ??? Acute kidney injury Resolved Hospital Problems No resolved problems to display. PMH Active Non-Hospital Problems Diagnosis ??? Chronic low back pain ??? Depression ??? Anxiety ??? Hyperlipidemia ??? Hypertension ??? COPD (chronic obstructive pulmonary disease) ??? Cigarette smoker ??? Bilateral knee pain INTERVAL HISTORY/OVERNIGHT EVENTS: - admitted to hospital medicine yesterday - overall feels better today - denies any cough or dysuria - afebrile overnight although has been feeling very sweaty - mild headache - normally wears 2L NC O2 REVIEW OF SYSTEMS: Weight gain, noted to be 275lbs on recent visit to PCP no cough no chest pain no shortness of breath, no palpitations no abdominal pain, no nausea, no vomiting no diarrhea no hematuria PHYSICAL EXAMINATION: Vitals Range last 24 hrs Temperature Temp: [36.6 ??C (97.9 ??F)-37 ??C (98.6 ??F)] Heart Rate Heart Rate: [89-97] Blood Pressure BP: (107-127)/(64-84) Respiratory Rate Resp: [19-44] SpO2 SpO2: [88 %-97 %] Intake/Output Summary (Last 24 hours) at 11/18/2018 0103 Last data filed at 11/17/2018 1700 Gross per 24 hour Intake 1490 ml Output 2100 ml Net -610 ml Patient Vitals for the past 168 hrs: Weight 11/17/18 0200 135 kg (297 lb 9.9 oz) 11/16/18 0145 123.3 kg (271 lb 13.2 oz) GENERAL: awake, alert, NAD HEENT: [place] conjunctiva, anicteric sclerae, oropharynx clear NECK: Supple, no JVD HEART: regular rate and rhythm, no murmur LUNGS: symmetrical chest expansion, no retractions, BS clear although generalized decreased breath sounds likely increased thoracic girth ABDOMEN: soft, no tenderness, normoactive bowel sounds EXT: no edema, no cyanosis, pulses equal NEURO: Alert and oriented x 3 Moving all extremities well No apparent sensory/motor deficit Studies reviewed in eDH. Remarkable for the following: LABS: Last 3 wbc, hgb, hct plt Recent Labs 11/17/18 0125 11/16/18 0230 WBC 7.4 11.0* HGB 12.2 13.5 HCT 36.9 41.5 PLATELET 125* 173 Last 3 Lytes Recent Labs 11/17/18 0125 11/16/18 0230 NA 135 134* K 3.2* 3.8 CL 101 95* CO2 21* 23 BUN 48* 57* CREATININE 2.59* 3.79* FSBG Trend: Recent Labs 11/17/18 1956 11/17/18 1613 11/17/18 1147 11/17/18 0724 11/17/18 0622 11/16/18 2013 11/16/18 1630 11/16/18 1137 11/16/18 0723 11/16/18 0350 POCGLU 169 154 167 166 136 191 137 131 132 209* MICROBIOLOGY: Recent Labs 11/16/18 0331 URINECULTURE 1,000-9,000 cfu/ml Gram Negative Rods* No results for input(s): GRAMSTAIN, BFCX, LOWERRESPCX, TISSUECX in the last 720 hours. Recent Labs 11/16/18 0630 BLOODCX No growth at 1 day. ECG: No results for input(s): DIAGLINE, QTCCALC in the last 720 hours. VASCULAR: No results for input(s): VBTEXTRPT in the last 720 hours. IMAGING: Radiology: Xr Chest One View 11/16/2018 FINDINGS: Low lung volumes with bilateral atelectasis. Lungs otherwise clear. Trace bilateral pleural effusions. No pneumothorax. Cardiomediastinal silhouette is unchanged. ?? Low lung volumes with bibasilar atelectasis and trace pleural effusions. No evidence of pneumonia.?? Inpatient Medications: Scheduled ??? famotidine 20 mg Oral Daily ??? methylphenidate HCl 20 mg Oral BID ??? methylphenidate HCl 10 mg Oral QAM ??? ARIPiprazole 10 mg Oral Daily ??? sodium chloride 0.9 % (flush) 5 mL Intravenous BID ??? heparin (Porcine) 5,000 Units Subcutaneous Q8H JERARDO ??? cefTRIAXone 2 g Intravenous Q24H ??? fluticasone propionate 2 puff Inhalation BID ??? buPROPion 300 mg Oral Daily ??? venlafaxine 150 mg Oral Daily with breakfast ??? miconazole Topical (Top) BID ??? nystatin 500,000 Units Oral 4 Times Daily ? ? insulin lispro 2-8 Units Subcutaneous 4 Times Daily AC & HS Continuous infusions: PRN: sodium chloride 0.9 % (flush), lidocaine, ipratropium-albuterol, vancomycin- intermittent dosing per levels, Glucose 40% oral gel OR dextrose OR glucagon (human recombinant) ASSESSMENT: 48F PMHx significant for??mood disorder, obesity, T2DM, and COPD, HELEN but non comoliant with CPAP??who was admitted on 11/06 for septic shock thought to be from UTI. She was initially admitted to ICU requiring aggressive fluid resuscitation and levophed. She was started on ceftriaxone and vancomycin was later added as she was round to have a rash under her pannus. Blood cultures shows NGTD. Urine culture later grew 1-9K GNR. The wound under the pannus appears to look like a fungal infection that may have secondary bacterial infection that might have caused her to be septic. Nevertheless, vancomycin will be discontinued as the wounds does not appear to be looking like MRSA. Her course is complicated by AFUA. PCP records were obtained and revealed baseline kidney function was 0.79 (taken 1 week ago). She appears to be making urine with slow down trending creatinine. PLAN: # Septic shock requiring pressors and fluid resuscitation - thought to be UTI vs panniculitis - BC 11/16 shows NGTD - continue rocpehin (11/16-P) - urine culture 1-9K GNR - can dc vancomycin - continue miconazole - pannus area - keep area dry ?? # AFUA - Most likely ATN due to septic shock - Baseline Scr of 0.7 increased to more than 4 - maintain oral fluid intake - strict Input/output - follow creatinine closely - hold home NSAIDs/diclofenac ?? # DM type 2, controlled - continue moderate insulin sliding scale - hold glipizide and metformin until stable renal function ?? # Psych/ mood disorder -continue home methyphenidate, abilify, venlafaxine (home desvenlafaxine), and wellbutrin ?? # oral thrush -nystatin - pt counseled to rinse mouth after using steroid inhalers # COPD, stable - continue nebs PRN ?? DVT Prophylaxis: Heparin SC Tubes/Drains: Dc chester today IV Access: PIV Code Status: FULL Disposition: Likely home if cleared by PT/OT once kidney function improves Primary Care Provider: VERNA Irving [phone] Inpatient Certification Attestation: IPI Certification I certify that I am a D-H credentialed attending provider with admitting privileges and that the patient meets or has met medical necessity to require an inpatient IPI level of care meeting a minimum of two midnights or is on the [facility] inpatient only procedure list (status C) due to: acute kidney injury necessitating close monitoring of fluid balance such as intravenous fluids and/or titration of medication to achieve optimal effect and minimize the chance of immediate or severe side effects; sepsis on IV antibiotics Hoda Casas MD Team Pager(MD Coverage 09/09): #[phone] 11/18/2018 andace Dhillon RN - 11/17/2018 10:43 AM EDT Office of Care Management Progress Note Rosibel Bowden has been provided a list of Home Health Agencies/DME vendors which serve their preferred geographic area. A letter describing our affiliations was reviewed with them and they were educated about their right to choose where referrals are placed. Patient requests referral to: [facility]. PHONE: [phone] FAX: [phone] left at [facility] (ph: [phone]) for PCP VERNA Nogueira transition care RN regarding [facility] referral post-discharge. Expected date of discharge: 2-3 days v TBD Transportation: Private vehicle Oxygen vendor: [facility] Referral routed to the Manager Fleet for matching with agency/vendor and to provide any required information. Alisha Crain RNCM P. [id number] Cammie Peter RN - 11/17/2018 2:50 AM EDT 0250 resident notified of morning K 3.2 et creat down to 2.59 from 3.79 yesterday morning. New orders received Reina Bassett MD - 11/16/2018 3:20 AM EDT Patient Name: Rosibel Bowden Patient Age: 48 y.o. Birthdate: 1970 Admit date: 11/16/2018 Attending Physician: Mylene Oakley MD I video examined the patient. I reviewed medications, medical records, labs and moraima signs. Briefly, Ms. Bowden is a 48 yo female with PMH significant for mood disorder, obesity, T2DM, and reactive airway disease who presented with L flank pain, fever, anuria and AFUA stage III. #1 Sepsis Most likely due to UTI. Currently on Abx and Normal Lactate. Received 30 ml/kg fluids and cultures are pending. #2 AFUA III Baseline Scr of 0.7 increased to more than 4 mg/dL for stage III. Most likely ATN due to SA-AFUA. Recommendations: Avoid nephrotoxins and adjust medications for GFR<15 ml/dL. Optimize Hemodynamics with MAP>70 mm Hg. Order UA. Follwing appropriate hydration perform Lasix stress test (1.5 mg/Kg of Lasix to make> 200 ml urine in 2 hours). Treat UTI with Abx. #3 DMT2 #4 Obesity documented in this encounter H&P Notes Kandis Tee MD - 11/16/2018 12:26 PM EDT Inpatient Hospital Medicine - Admission Note Problem List: Active Hospital Problems Diagnosis ??? Acute renal failure Resolved Hospital Problems No resolved problems to display. Active Non-Hospital Problems Diagnosis ??? Bilateral knee pain ID: 48 y.o. [place] [facility] History of Present Illness: [facility] Rosibel Bowden is a 48 yo female with PMH significant for mood disorder, obesity, T2DM, and reactive airway disease who presented with L flank pain, fever, anuria and AFUA stage III. ?? Pt was admitted to the ICU on levophed but with prompt aggressive fluid resuscitation was able to beweaned off pressors. She remained hemodynamically stable appropriate for transfer to the floor. Pt was treated for acute pyelonephritis causing severe sepsis with ceftriaxone and after morning rounds w/ concern for soft tissue infection under L pannus vancomycin was added for additional coverage of MRSA. A CXR was obtained to r/o other possible infectious etiology. Pt reported improvement in the back pain, abdominal pain, burning urination, overall strength, improvement in appetite (wants to eat now), with the antibiotics and fluids/pressors in the ICU. Her fluids were stopped after she was noticed to be having oxygen requirements. Pt denies using any insulin at home and says her BG are well controlled and she has lost more than 25 lb with weight watchers. Review of Systems: Review of Systems Constitutional: Positive for fatigue. Gastrointestinal: Positive for abdominal pain. Genitourinary: Positive for decreased urine volume. Musculoskeletal: Positive for back pain. All other systems reviewed and are negative. Past Medical and Surgical History: No past medical history on file. No past surgical history on file. Prior To Admission Medications: Medications Prior to Admission Medication Sig Dispense Refill Last Dose ??? ARIPiprazole (ABILIFY) 10 mg Tablet TAKE ONE TABLET BY MOUTH EVERY DAY 3 Taking ??? chlorthalidone (HYGROTEN) 25 mg Tablet TAKE ONE TABLET BY MOUTH EVERY DAY 3 Taking ??? diclofenac (CATAFLAM) 50 mg Tablet TAKE ONE TABLET BY MOUTH TWICE A DAY 5 Taking ??? fenofibrate (TRIGLIDE) 160 mg Tablet TAKE ONE TABLET BY MOUTH EVERY DAY 3 Taking ??? gabapentin (NEURONTIN) 800 mg Tablet TAKE ONE TABLET BY MOUTH TWICE A DAY 3 Taking ??? LANTUS SOLOSTAR U-100 INSULIN pen INJECT 38 UNITS TWO TIMES A DAY 4 Taking ??? lisinopril (PRINIVIL;ZESTRIL) 20 mg Tablet TAKE ONE TABLET BY MOUTH TWICE A DAY 3 Taking ??? metFORMIN (GLUCOPHAGE-XR) 500 mg Tablet Sustained Release 24 hr TAKE TWO TABLETS BY MOUTH TWICE A DAY 3 Taking ??? methylphenidate HCl (RITALIN) 10 mg Tablet TAKE ONE TABLET BY MOUTH DAILY IN COMBINATION WITH 20MG TWICE DAILY 0 Taking ??? methylphenidate HCl (RITALIN) 20 mg Tablet TAKE ONE TABLET BY MOUTH TWICE A DAY 0 Taking ??? oxyCODONE-acetaminophen (PERCOCET) 10-325 mg Tablet TAKE ONE TABLET BY MOUTH FOUR TIMES A DAY ASNEEDED FOR PAIN 0 Taking ??? pantoprazole (PROTONIX) 40 mg Tablet, Delayed Release (E.C.) TAKE ONE TABLET BY MOUTH EVERY DAY 12 Taking Allergies: Allergies Allergen Reactions ??? Amoxicillin Nausea And Vomiting and Rash ??? Sulfa (Sulfonamide Antibiotics) Nausea And Vomiting and Rash Family History: Family History Problem Relation Age of Onset ??? Diabetes Mother ??? Diabetes Maternal Aunt ??? Diabetes Paternal Aunt Social History and Habits: Social History Socioeconomic History ??? Marital status: Single Spouse name: Not on file ??? Number of children: Not on file ??? Years of education: Not on file ??? Highest education level: Not on file Occupational History ??? Not on file Social Needs ??? Financial resource strain: Not on file ??? Food insecurity: Worry: Not on file Inability: Not on file ??? Transportation needs: Medical: Not on file Non-medical: Not on file Tobacco Use ??? Smoking status: Current Every Day Smoker Packs/day: 1.00 Types: Cigarettes ??? Smokeless tobacco: Never Used Substance and Sexual Activity ??? Alcohol use: Yes Comment: occasionaly ??? Drug use: No ??? Sexual activity: Not on file Lifestyle ??? Physical activity: Days per week: Not on file Minutes per session: Not on file ??? Stress: Not on file Relationships ??? Social connections: Talks on phone: Not on file Gets together: Not on file Attends congregational service: Not on file Active member of club or organization: Not on file Attends meetings of clubs or organizations: Not on file Relationship status: Not on file ??? Intimate partner violence: Fear of current or ex partner: Not on file Emotionally abused: Not on file Physically abused: Not on file Forced sexual activity: Not on file Other Topics Concern ??? Not on file Social History Narrative ??? Not on file Immunizations: There is no immunization history on file for this patient. Physical Exam: Last Set of Vitals and range of vitals over past 24 hours: Last value Range last 24 hrs Temperature Temp: 37 ??C (98.6 ??F) Temp: [36.5 ??C (97.7 ??F)-37 ??C (98.6 ??F)] Heart Rate Heart Rate: 99 Heart Rate: [86-99] Blood Pressure BP: 97/65 BP: (93-116)/(61-79) Respiratory Rate Resp: 25 Resp: [19-38] SpO2 SpO2: 96 % SpO2: [92 %-98 %] Body mass index is 49.72 kg/m??. Physical Exam Constitutional: She is oriented to person, place, and time. She appears well-developed. HENT: Head: Normocephalic. Right Ear: External ear normal. Left Ear: External ear normal. Mouth/Throat: Oropharyngeal exudate present. Eyes: Pupils are equal, round, and reactive to light. Neck: Neck supple. Cardiovascular: Normal rate and regular rhythm. Pulmonary/Chest: Effort normal. No respiratory distress. B/b crepts Abdominal: Soft. Bowel sounds are normal. She exhibits no distension. There is no tenderness. Musculoskeletal: She exhibits no edema. Neurological: She is alert and oriented to person, place, and time. She displays normal reflexes. Nocranial nerve deficit. Coordination normal. Skin: Cold skin in b/l lower ext, intercrural rash on the left side abdominal skin fold Nursing note and vitals reviewed. Laboratory (Last 24 Hours): Recent Results (from the past 24 hour(s)) POCT Glucose Result Value Ref Range POC Glucose 214 (H) 65 - 199 mg/dL Prothrombin Time Result Value Ref Range PT 13.4 (H) 9.4 - 12.5 sec INR 1.2 APTT Result Value Ref Range PTT 29 25 - 37 sec Phosphorus Result Value Ref Range Phosphorus 2.7 2.5 - 4.5 mg/dL Magnesium Result Value Ref Range Magnesium 0.73 0.69 - 1.07 mmol/L CMP w/fasting Glucose Result Value Ref Range Glucose Fasting 227 (H) 65 - 99 mg/dL BUN 57 (H) 8 - 18 mg/dL Creatinine 3.79 (H) 0.70 - 1.20 mg/dL Sodium 134 (L) 135 - 145 mmol/L Potassium 3.8 3.5 - 5.0 mmol/L Chloride 95 (L) 98 - 107 mmol/L CO2 23 22 - 31 mmol/L Anion Gap 16 (H) 5 - 15 mmol/L Calcium 8.9 8.5 - 10.5 mg/dL Total Protein 7.0 6.1 - 8.0 gm/dL Albumin 3.2 3.2 - 5.2 gm/dL AST 48 (H) 0 - 30 unit/L ALT 24 0 - 30 unit/L Alk Phos 105 35 - 105 unit/L Total Bilirubin 0.6 0.2 - 1.3 mg/dL eGFR 13 (L) >=60 mL/min/1.73 m?? eGFR 15 (L) >=60 mL/min/1.73 m?? Lactate, whole blood, [place] to [place] Result Value Ref Range Lactate WB 1.7 0.5 - 2.2 mmol/L Hemogram Result Value Ref Range WBC 11.0 (H) 4.0 - 9.5 x10(3)/mcL RBC 4.32 4.00 - 5.21 x10(6)/mcL Hemoglobin 13.5 11.7 - 15.5 gm/dL Hematocrit 41.5 35.7 - 45.8 % MCV 96.1 (H) 82.6 - 94.4 fL MCH 31.3 27.1 - 32.0 pg MCHC 32.5 31.7 - 35.0 gm/dL Platelets 173 145 - 357 x10(3)/mcL RDWSD 51.8 (H) 37.0 - 46.0 fL RDWCV 14.5 (H) 11.5 - 14.1 % MPV 11.4 7.6 - 12.9 fL nRBC % Auto 0.0 % nRBC Abs Auto 0.000 0.000 - 0.000 x10(3)/mcL Differential, Automated Result Value Ref Range Neutrophils % 78.2 % Neutr Abs (ANC) 8.57 (H) 1.70 - 6.10 x10(3)/mcL Lymphocytes % 10.4 % Lymphocytes Abs 1.1 0.9 - 3.2 x10(3)/mcL Monocytes % 9.0 % Monocyte Abs 1.0 (H) 0.3 - 0.9 x10(3)/mcL Eosinophils % 0.0 % Eosinophils Abs 0.0 0.0 - 0.4 x10(3)/mcL Basophils % 0.5 % Basophils Abs 0.0 0.0 - 0.1 x10(3)/mcL Immature Gran % 1.90 % Ree Gran Abs 0.21 (H) 0.00 - 0.04 x10(3)/mcL Electrolytes, urine, random Result Value Ref Range U Sodium 65 mmol/L U Potassium 33 mmol/L U Chloride 33 mmol/L Creatinine, urine, random Result Value Ref Range U Creatinine 120 mg/dL Urea nitrogen, urine, random Result Value Ref Range U Urea Nitrogen 108 mg/dL Urinalysis with reflex Culture Result Value Ref Range Glucose UA Negative Negative mg/dL Protein UA >=500 (A) Negative mg/dL Bilirubin UA Negative Negative mg/dL Urobilinogen UA 2.0 (A) Normal mg/dL pH UA 5.0 5.0 - 8.0 Blood UA Large (A) Negative mg/dL Ketones UA Negative Negative mg/dL Nitrite UA Negative Negative Leukocytes UA Moderate (A) Negative mcL Appearance UA Cloudy (A) Clear Spec [place] UA 1.017 1.002 - 1.030 Color UA [place] Yellow Culture Reflexed Yes Urinalysis Microscopic Exam Result Value Ref Range RBC UA >182 (H) 0 - 4 /HPF WBC UA >182 (H) 0 - 5 /HPF WBCs Clumping Many (A) None /HPF Bacteria UA Moderate (A) None /HPF Squam Epith UA 5 (H) <=4 /HPF POCT Glucose Result Value Ref Range POC Glucose 209 (H) 65 - 199 mg/dL POCT Glucose Result Value Ref Range POC Glucose 132 65 - 199 mg/dL POCT Glucose Result Value Ref Range POC Glucose 131 65 - 199 mg/dL Microbiology: Blood Cultures: pending Urine Cultures: pending Radiology: Film Library- Storage Only Ct Abdomen & Pelvis Result Date: 11/16/2018 This exam is auto-finalizing. It's purpose is for storage only. Film Library- Storage Only Dx Chest Result Date: 11/16/2018 This exam is auto-finalizing. It's purpose is for storage only. Xr Chest One View Result Date: 11/16/2018 EXAMINATION: XR CHEST ONE VIEW CLINICAL HISTORY: assess for CAP in new septic pt TECHNIQUE: AP view of the chest COMPARISON: Chest radiograph 11/15/2018 FINDINGS: Low lung volumes with bilateral atelectasis. Lungs otherwise clear. Trace bilateral pleural effusions. No pneumothorax. Cardiomediastinal silhouette is unchanged. Low lung volumes with bibasilar atelectasis and trace pleural effusions. No evidence of pneumonia. Shaun personally reviewed the image(s) and the residents interpretation and agree with the findings, Ray Mejia at 11/16/2018 11:12 AM Thank you for letting us participate in the care of this patient.For questions regarding this report, please contact the number below. Other Studies: EKG - Echocardiogram - Vascular Studies - Pulmonary Report - Endoscopy - Assessment: Rosibel Bowden is a 48 yo female with PMH significant for mood disorder, obesity, T2DM, and reactive airway disease who admitted with severe sepsis. ??Pt was admitted to the ICU on levophed but withprompt aggressive fluid resuscitation was able to be weaned off pressors. Pt was treated for acute py elonephritis causing severe sepsis with ceftriaxone and after morning rounds w/ concern for soft tissue infection under L pannus vancomycin was added for additional coverage of MRSA. Her fluids were stopped after she was noticed to be having oxygen requirements. # Severe Sepsis - improving - Most likely due to UTI. -continue rocpehin - cultures are pending. # AFUA - Most likely ATN due to septic shock Baseline Scr of 0.7 increased to more than 4 mg/dL maintain oral fluid intake Input/output Keep UO stable, else she will need fluid boluses # DMT2 -check HbA1c, SSI #mood disorder -continue her home medications including methyphenidate, abilify, venlafaxine (home desvenlafaxine),and wellbutrin #skin rash -continue miconazole, Vancomycin till MRSA is ruled out #oral thrush -nystatin , pt counseled to rinse mouth after using steroid inhalers ?? Physical Therapy referral ?? DVT Prophylaxis -heparin ?? If currently a smoker - advised about smoking cessation and will provide smoking cessation material and support. ?? Pneumovax and Influenza Immunizations given as needed. ?? Discussed Advanced Directives and Code Status. The patient wishesto be Full Code. A copy of this document will be sent to the patient's Primary Care Physician and/or Referring Physician. Kandis Tee MD 11/16/2018 Osvaldo Beebe MD - 11/16/2018 2:07 AM EDT Critical Care Resident History and Physical Patient Name: Rosibel Bowden Service: ICU Blue Team Admit Date: 11/16/2018 Hospital Day: 0 Responsible Attending: Mylene Oakley MD Patient Description: Rosibel Bowden is a 48 y.o. female with a history of mood disorder, obesity,T2DM, and reactive airway disease presents as a transfer with night sweats, chills, and severe oliguria. Active Problems: Active Hospital Problems Diagnosis ??? Acute renal failure Resolved Hospital Problems No resolved problems to display. Subjective: HPI: The patient states that her symptoms started 4 days ago when she felt her urine burn with passing. She also felt a pressure with micturition. At this time, she did not have back pain that was worse than her usual baseline (she has chronic back pain). Her symptoms progressed to some increase in her back pain, but not too noticeable, along with gradual reduction in her urine output. In addition, she started to develop night sweats and felt chilly for the past 3 days. She had been increasing her fluid intake, but has noticed that she had a reduction in her food intake. In addition, she noticed that her glucose was more difficult to control, ranging as high as 500s (typically her BS are ~100-150). Shedenies any increased work of breathing or shortness of breath, but did notice mild wheezing since yesterday. She denies abdominal pain, nausea, vomiting, changes to her bowel movements. She denies a personal history of renal disease or autoimmune diseases. She has been mindful of taking her home diclofenac and stopped 4 days ago once symptoms started. She denies taking ibuprofen, gabapentin and lisino pril given her overal feeling of malaise. Patient has had pyelonephritis with hospitalization years ago. Symptoms she states are similar, but recalls that back pain was worse. In the ED at the OSH, she was given 2.5 L of fluids and 750 mg of levofloxacin. Duonebs were given for wheezing, with good effect. Levophed was started given systolic pressures dropping to the 60s. CBC: WBC 8.79 Hb 13.7 Plts 156 ?? CMP: Na 134 K 3.9 Cl 94 CO2 27 BUN 56 Cr 4.24 Ca 8.8 Gluc 228 T bili 0.7 AST 61 ALT 33 Total protein 6.2 Albumin 2.6 Alk Phos 106 ?? Lactate: 1.5 Urinalysis: Large leukocyte esterase, many WBC, large protein ROS: See HPI. Otherwise unremarkable Medications Prior to Admission: Medications Prior to Admission Medication Sig Dispense Refill Last Dose ??? ARIPiprazole (ABILIFY) 10 mg Tablet TAKE ONE TABLET BY MOUTH EVERY DAY 3 Taking ??? chlorthalidone (HYGROTEN) 25 mg Tablet TAKE ONE TABLET BY MOUTH EVERY DAY 3 Taking ??? diclofenac (CATAFLAM) 50 mg Tablet TAKE ONE TABLET BY MOUTH TWICE A DAY 5 Taking ??? fenofibrate (TRIGLIDE) 160 mg Tablet TAKE ONE TABLET BY MOUTH EVERY DAY 3 Taking ??? gabapentin (NEURONTIN) 800 mg Tablet TAKE ONE TABLET BY MOUTH TWICE A DAY 3 Taking ??? LANTUS SOLOSTAR U-100 INSULIN pen INJECT 38 UNITS TWO TIMES A DAY 4 Taking ??? lisinopril (PRINIVIL;ZESTRIL) 20 mg Tablet TAKE ONE TABLET BY MOUTH TWICE A DAY 3 Taking ??? metFORMIN (GLUCOPHAGE-XR) 500 mg Tablet Sustained Release 24 hr TAKE TWO TABLETS BY MOUTH TWICE A DAY 3 Taking ??? methylphenidate HCl (RITALIN) 10 mg Tablet TAKE ONE TABLET BY MOUTH DAILY IN COMBINATION WITH 20MG TWICE DAILY 0 Taking ??? methylphenidate HCl (RITALIN) 20 mg Tablet TAKE ONE TABLET BY MOUTH TWICE A DAY 0 Taking ??? oxyCODONE-acetaminophen (PERCOCET) 10-325 mg Tablet TAKE ONE TABLET BY MOUTH FOUR TIMES A DAY ASNEEDED FOR PAIN 0 Taking ??? pantoprazole (PROTONIX) 40 mg Tablet, Delayed Release (E.C.) TAKE ONE TABLET BY MOUTH EVERY DAY 12 Taking Allergies: Allergies Allergen Reactions ??? Amoxicillin Nausea And Vomiting and Rash ??? Sulfa (Sulfonamide Antibiotics) Nausea And Vomiting and Rash Past Medical History: No past medical history on file. No past surgical history on file. Patient Active Problem List Diagnosis ??? Acute renal failure ??? Bilateral knee pain Social History: Social History Socioeconomic History ??? Marital status: Single Spouse name: Not on file ??? Number of children: Not on file ??? Years of education: Not on file ??? Highest education level: Not on file Occupational History ??? Not on file Social Needs ??? Financial resource strain: Not on file ??? Food insecurity: Worry: Not on file Inability: Not on file ??? Transportation needs: Medical: Not on file Non-medical: Not on file Tobacco Use ??? Smoking status: Current Every Day Smoker Packs/day: 1.00 Types: Cigarettes ??? Smokeless tobacco: Never Used Substance and Sexual Activity ??? Alcohol use: Yes Comment: occasionaly ??? Drug use: No ??? Sexual activity: Not on file Lifestyle ??? Physical activity: Days per week: Not on file Minutes per session: Not on file ??? Stress: Not on file Relationships ??? Social connections: Talks on phone: Not on file Gets together: Not on file Attends congregational service: Not on file Active member of club or organization: Not on file Attends meetings of clubs or organizations: Not on file Relationship status: Not on file ??? Intimate partner violence: Fear of current or ex partner: Not on file Emotionally abused: Not on file Physically abused: Not on file Forced sexual activity: Not on file Other Topics Concern ??? Not on file Social History Narrative ??? Not on file Social History Social History Narrative ??? Not on file Family History: Family History Problem Relation Age of Onset ??? Diabetes Mother ??? Diabetes Maternal Aunt ??? Diabetes Paternal Aunt Objective: Vitals: T Temp: [36.5 ??C (97.7 ??F)-36.8 ??C (98.2 ??F)] HR Heart Rate: [86-95] BP BP: (93-116)/(61-79) Art BP BP (Arterial Line): -- RR Resp: [19-38] SpO2 SpO2: [92 %-97 %] IO 11/15 0701 - 11/16 0700 In: 2505 [P.O.:250; I.V.:2255] Out: 200 [Urine:200] Wt Last 123.3 kg (271 lb 13.2 oz) Admit 123.3 kg I/O: Intake/Output Summary (Last 24 hours) at 11/16/2018 0637 Last data filed at 11/16/2018 0600 Gross per 24 hour Intake 2505 ml Output 200 ml Net 2305 ml Lines: 2X PIV, briggs Physical Exam: GEN Sitting in bed, diaphoretic, no acute distress HEENT EOMI, conjunctiva are anicteric and without injection, Dry mucous membranes CV RRR, normal S1/S2, no murmurs/rubs/gallops appreciated, easily palpable radial pulses PULM Coarse breath sounds with mild wheezes on right lung hernandez GI Abdomen soft, non-distended, hypoactive bowel sounds, no apparent tenderness, guarding, or rebound Briggs catheter in place draining concentrated, turbid urine MSK No peripheral edema appreciated DERM Skin cool and clammy. There is a large area of erythema and skin breakdown at the left groin NEURO CN 2-12 normal, no focal deficits Labs: CBC: Recent Labs 11/16/18229 WBC 11.0* HGB 13.5 PLATELET 173 BMP: Recent Labs 11/16/18229 NA 134* K 3.8 CL 95* CO2 23 BUN 57* CREATININE 3.79* Calcium, Magnesium, Phosphate: Recent Labs 11/16/18229 CALCIUM 8.9 MAGNESIUM 0.73 PHOS 2.7 LFTs: Recent Labs 11/16/18 023 AST 48* ALT 24 ALKPHOS 105 BILITOT 0.6 Troponin: No results for input(s): TROPONINT, CK in the last 168 hours. ABG: No results for input(s): PHART, TBC2ZWW, PO2ART, AUT3DJC in the last 168 hours. Coags: Recent Labs 11/16/18 023 PT 13.4* PTT 29 INR 1.2 Micro: BCx pending, UCx pending Radiology/Studies: CT abd pelv wo contrast - Minimal prominence to the left intrarenal collecting system without evidence of specific obstructing process. May represent recent stone passage however no stone is noted within the urinary bladder Assessment and Plan Rosibel Apple Bowden is a 48 y.o. female with a history of mood disorder, obesity, T2DM, and reactive airway disease presents as a transfer with night sweats, chills, and severe oliguria; symptoms are concerning for acute pyelonephritis. Will give her aggressive fluids and continue with ceftriaxone. Anticpate that her pressures will improve and that we will be able to discontinue levophed by morning. Ifnot, plan for arterial and central venous line. Curiously, leukocyte count is normal - I wonder if this is due to her history of diabetes, which may contribute to diminished peripheral sensation and inflammatory response. Will be mindful of severe oliguria and monitor for increasing oxygen requirement. Will hold off on diuresis challenge for now, as I think she will increase Uop as we replenish her fluids and treat her underlying cause of AFUA. Active issues: Pyelonephritis Suspected urosepsis Acute kidney injury with severe oliguria Reactive airway disease Depression with anxiety # Neuro: - Continue home methyphenidate, abilify, venlafaxine (home desvenlafaxine), and wellbutrin - Not in acute pain, will reassess in objects conservator - AAO X 4 # Pulmonary: - 2L NC, duonebs PRN for wheezing - Continue with home therapies # Cardiovascular: - Levophed on, wean as tolerated with fluids - No history of cardiac disease # ID: - Continue with ceftriaxone 2g q24h - s/p 750 mg levaquin IV - UCx, Bcx pending # Renal: - AFUA with severe oliguria - Urine lytes pending, though I think etiology is infectious - Briggs in place, I/O # Endocrine: - ISS # Integumentary - Miconazole power - Wound care consult # Routine: - Prophylaxis: GI: PPI DVT: heparin sq Glycemic control: ISS - Nutrition: Sips and Chips (Give Meds) - Code Status: Full Code Osvaldo Beebe MD 11/16/2018 Internal Medicine, PGY 3 Team Pager: [phone] Associated attestation - Olvin Doran MD - 11/16/2018 11:32 AM EDT The patient is seen, examined, and discussed in detail with Dr. Beebe whose note reflects our discussion. I would add/emphasize that this 48-year-old female with history of mood disorder, diabetes, asthma and untreated (except for nocturnal oxygen) sleep apnea presented with presumed urosepsis and acute kidney injury. She has been weaned off her levophed. Examination is notable for reddened pannus with a small superficial ulcer. Her chest is clear except for a few basilar crackles. Data are reviewed.Notably, her Cr is 3.8. We will continue her antibiotics but add vancomycin for skin coverage given the findings above. I believe she is stable to move out of the intensive care unit. I would add that her x-ray shows suggestion of pulmonary hypertension and proper treatment of her sleep disordered breathing going forward is essential. I would recommend outpatient sleep testing and appropriate therapy as indicated. documented in this encounter Miscellaneous Notes Plan of Care - Jen Joel RN - 11/19/2018 4:43 AM EDT Problem: Skin Integrity Impairment, Risk/Actual (Adult) Goal: Identify Related Risk Factors and Signs and Symptoms Related risk factors and signs and symptoms are identified upon initiation of Human Response Clinical Practice Guideline (CPG) Outcome: Ongoing (Interventions Implemented as Appropriate) 11/16/18 0542 11/19/18 0426 Skin Integrity Impairment, Risk/Actual Skin Integrity Impairment, Risk/Actual: Related Risk Factors fluid/nutrition status;infection/disease process;moisture -- Signs and Symptoms (Skin Integrity Impairment) -- inflammation;other (see comments) (excoriation ) OUTCOME EVALUATION NOTE: OUTCOME SUMMARY: Rosibel Bowden is a 48 y.o. female pt AXOX4 for shift w/ VSS on 4L over night. C/o headache givenPRN Tylenol w/ good effect. PRN neb given for wheezing w/ good effect. Pt had IV ABX d/c'd and was started on PO Keflex and lactobacillus. Pt up to BR independently. Pt able to make needs known. No scute changes for shift. PLAN MOVING FORWARD: D/c to home on PO ABX, wound care for panis INDIVIDUALIZED FALL PREVENTION INTERVENTIONS: Patient-specific fall risk factors per assessment: [current deficits]: Medium Fall Risk: Generalizedweakness, O2 tubing Assistance [level of assistance required for transfers and ambulation]: IND Supervision [direct monitoring required during toileting and ADLs]: IND Surveillance [continuous indirect monitoring]: Masimo, call mercado in reach, bed in lowest position, safety checks Patient-specific fall prevention interventions for sensory deficits provided, if applicable: [X] Yes CPG GOAL OUTCOME EVALUATION: Ongoing Goal: Skin Integrity/Wound Healing Patient will demonstrate the desired outcomes by discharge/transition of care. Outcome: Ongoing (Interventions Implemented as Appropriate) 11/19/18425 Skin Integrity Impairment, Risk/Actual (Adult) Skin Integrity/Wound Healing making progress toward outcome Problem: Infection, Risk/Actual (Adult) Goal: Identify Related Risk Factors and Signs and Symptoms Related risk factors and signs and symptoms are identified upon initiation of Human Response Clinical Practice Guideline (CPG) Outcome: Ongoing (Interventions Implemented as Appropriate) 11/16/18541 Infection, Risk/Actual Infection, Risk/Actual: Related Risk Factors poor personal hygiene;skin integrity impairment Signs and Symptoms (Infection, Risk/Actual) blood glucose changes;chills;skin cool/clammy Goal: Infection Prevention/Resolution Patient will demonstrate the desired outcomes by discharge/transition of care. Outcome: Ongoing (Interventions Implemented as Appropriate) 11/16/18541 Infection, Risk/Actual (Adult) Infection Prevention/Resolution making progress toward outcome Problem: Patient Care Overview Goal: Plan of Care Review Outcome: Ongoing (Interventions Implemented as Appropriate) 11/16/1844 11/18/182147 Coping/Psychosocial Plan Of Care Reviewed With -- patient Plan of Care Review Progress improving -- Goal: Fall Prevention-Safe Patient Handling Outcome: Ongoing (Interventions Implemented as Appropriate) 11/18/18214711/19/18 0000 Amin Fall Risk History of Falling 0 -- Secondary Diagnosis 15 -- Ambulatory Aids 0 -- Intravenous Therapy/Heparin/Saline Lock 20 -- Gait/Transferring 10 -- Mental Status 0 -- Score 45 -- OTHER Amin Fall Risk High -- Daily Care Interventions Self-Care Promotion independence encouraged -- Restraint Interventions Safety Promotion/Fall Prevention -- safety round/check completed Positioning Body Position -- independent Activity Activity Type -- activity adjusted per tolerance Activity Assistance Provided -- independent Assistive Device Utilized -- oxygen Goal: Infection Control Outcome: Ongoing (Interventions Implemented as Appropriate) 11/18/18214711/19/18 0000 Safety Interventions Isolation Precautions -- standard precautions maintained Infection Prevention -- rest/sleep promoted Coping Strategies Supportive Measures active listening utilized;self-care encouraged;self- reflection promoted;self-responsibility promoted;verbalization of feelings encouraged -- Goal: Discharge Needs Assessment Outcome: Ongoing (Interventions Implemented as Appropriate) 11/19/18425 Discharge Needs Assessment Discharge Disposition home or self-care Goal: Interdisciplinary Rounds/Family Conf Outcome: Ongoing (Interventions Implemented as Appropriate) 11/19/18 0426 Interdisciplinary Rounds/Family Conf Participants nursing;patient;advanced practice nurse Plan of Care - Dionte Rice RN - 11/18/2018 4:13 PM EDT Problem: Patient Care Overview Goal: Plan of Care Review Outcome: Ongoing (Interventions Implemented as Appropriate) 11/16/18 0544 11/18/18 1612 Coping/Psychosocial Plan Of Care Reviewed With -- patient Plan of Care Review Progress improving -- OUTCOME EVALUATION NOTE: OUTCOME SUMMARY: Patient A&Ox4 but wifty at times, VSS, and denies any pain. Remained on 2L NC throughout shift. Sister visited this afternoon. No acute changes, will continue to monitor. PLAN MOVING FORWARD: Continue to monitor labs, VS, PO abx, d/c tomorrow morning? INDIVIDUALIZED FALL PREVENTION INTERVENTIONS: Patient-specific fall risk factors per assessment: [current deficits]: IV sites, generalized weakness Assistance [level of assistance required for transfers and ambulation]: independent Supervision [direct monitoring required during toileting and ADLs]: independent Surveillance [continuous indirect monitoring]: shirley Glynnful rounding Goal: Fall Prevention-Safe Patient Handling Outcome: Ongoing (Interventions Implemented as Appropriate) 11/18/18 0856 11/18/18 1300 11/18/18 1605 Amin Fall Risk History of Falling 0 -- -- Secondary Diagnosis 15 -- -- Ambulatory Aids 0 -- -- Intravenous Therapy/Heparin/Saline Lock 20 -- -- Gait/Transferring 10 -- -- Mental Status 0 -- -- Score 45 -- -- OTHER Amin Fall Risk High -- -- Daily Care Interventions Self-Care Promotion -- -- independence encouraged;BADL personal objects within reach;BADL personal routines maintained Restraint Interventions Safety Promotion/Fall Prevention -- fall prevention program maintained;muscle strengthening facilitated;nonskid shoes/slippers when out of bed;safety round/check completed -- Positioning Body Position -- independent -- Activity Activity Type -- activity adjusted per tolerance;up ad gene -- Activity Assistance Provided independent -- -- Assistive Device Utilized none -- -- Goal: Infection Control Outcome: Ongoing (Interventions Implemented as Appropriate) 11/18/18 0856 11/18/18 1300 Safety Interventions Isolation Precautions standard precautions maintained -- Infection Prevention -- environmental surveillance performed;rest/sleep promoted Coping Strategies Supportive Measures active listening utilized;verbalization of feelings encouraged;self-care encouraged -- Med Student Progress Note - Kadie Torres - 11/18/2018 1:31 PM EDT Hospital Medicine Daily Progress Note Admit Date: 11/16/2018 Hospital Day 2 days Active Hospital Problems Diagnosis ??? Septic shock ??? Morbid obesity ??? HELEN (obstructive sleep apnea) ??? Type 2 diabetes mellitus ??? Acute kidney injury Resolved Hospital Problems No resolved problems to display. PMH Active Non-Hospital Problems Diagnosis ??? Chronic low back pain ??? Depression ??? Anxiety ??? Hyperlipidemia ??? Hypertension ??? COPD (chronic obstructive pulmonary disease) ??? Cigarette smoker ??? Bilateral knee pain Inpatient Medications: Scheduled ??? insulin lispro 1-10 Units Subcutaneous TID WC ??? doxycycline monohydrate 100 mg Oral BID ??? famotidine 20 mg Oral Daily ??? methylphenidate HCl 20 mg Oral BID ??? methylphenidate HCl 10 mg Oral QAM ??? ARIPiprazole 10 mg Oral Daily ??? sodium chloride 0.9 % (flush) 5 mL Intravenous BID ??? heparin (Porcine) 5,000 Units Subcutaneous Q8H JERARDO ??? cefTRIAXone 2 g Intravenous Q24H ??? fluticasone propionate 2 puff Inhalation BID ??? buPROPion 300 mg Oral Daily ??? venlafaxine 150 mg Oral Daily with breakfast ??? miconazole Topical (Top) BID ??? nystatin 500,000 Units Oral 4 Times Daily ? ? insulin lispro 2-8 Units Subcutaneous 4 Times Daily AC & HS Continuous infusions: PRN: acetaminophen, sodium chloride 0.9 % (flush), lidocaine, ipratropium- albuterol, Glucose 40% oral gel OR dextrose OR glucagon (human recombinant) Interval History: Rosibel Bowden is a 48 year old female with a history of T2DM, mood disorder on ariprazole and COPDwho [place] [facility] flank pain, fever and decreased urine output. On arrival, she was found to have hypotension with urinalysis suspicious for infection. Lowest systolic was 60. She was admitted to the ICU and started on IVf then Levophed. In the ICU, her blood pressure increased and she was weaned of Levophed. She was started on IV ceftriaxone for presumed pyelonephritis causing sepsis. ICU also notice a soft tissue lesion under pannus concerning for infection so vancomycin was added for MRSA coverage. Lab work revealed leukocytosis (11K) and AFUA (Cr 3.79) on admission. She began to have some shortness of breath requiring 2L NC oxygen, so fluids were stopped. CXR was negative for infiltrate. Rosibel reports using 2L NC oxygen at home only while sleeping. She was prescribed a CPAP in the past for HELEN but did not use it. Reports smoking 1/2 PPD of cigarettes. Creatinine improved and she was transferred to the floor yesterday. No acute events overnight This morning she reports feeling well besides chronic back pain which is no worse than baseline. Denies shortness of breath, chills, nausea or diarrhea. Received a call from [facility], 3/3 blood cultures grew E.coli. Blood cultures [place] [facility] still negative. ROS: General: Reports fevers, chills and fatigue per HPI. Also reports recent 100lb weight loss over the past 6m-1y using weight watchers. HEENT: Denies recent URI Respiratory: Repots COPD on 2L O2 only at night per HPI. She does not use a CPAP for her HELEN. CV: Denies chest pain GI: Denies nausea, vomiting or diarrhea : Reports dysuria per HPI MSK: Reports bilateral osteoarthritis of the knees and chronic low back pain. Per PCP office notes she is prescribed: Diclofenac 50mg BID, Percocet 10/325mg QID PRN, Neurontin 800mg BID and Baclofen 10mg BID PRN. Skin: reports rash in skin folds being present for some time but does not recent skin break down on the left side. Psych: History of depression and anxiety, managed on Abilify 10mg QD, Pristiq 100mg QD, Wellbutrin 200mg QD and Ritalin 30mg AM + 20mg PM per PCP office note from 11/09/18. Physical Exam Vitals Range last 24 hrs Temperature Temp: [36.5 ??C (97.7 ??F)-37 ??C (98.6 ??F)] Heart Rate Heart Rate: [89-98] Blood Pressure BP: (112-136)/(68-84) Respiratory Rate Resp: [20-25] SpO2 SpO2: [91 %-97 %] Intake/Output Summary (Last 24 hours) at 11/18/2018 1428 Last data filed at 11/17/2018 1700 Gross per 24 hour Intake 240 ml Output 500 ml Net -260 ml Patient Vitals for the past 168 hrs: Weight 11/17/18 0200 135 kg (297 lb 9.9 oz) 11/16/18 0145 123.3 kg (271 lb 13.2 oz) Body mass index is 54.44 kg/m??. Physical Exam Constitutional: She is oriented to person, place, and time. She appears well- developed and well-nourished. Non-toxic appearance. She does not have a sickly appearance. She does not appear ill. No distress. HENT: Head: Normocephalic and atraumatic. Mouth/Throat: Mucous membranes are normal. Eyes: Conjunctivae and lids are normal. No scleral icterus. Cardiovascular: Normal rate, regular rhythm, S1 normal and S2 normal. Exam reveals no gallop and no friction rub. No murmur heard. Pulses: Radial pulses are 2+ on the right side, and 2+ on the left side. Pulmonary/Chest: Effort normal. No accessory muscle usage. No respiratory distress. She has decreased breath sounds. She has no wheezes. On 2L NC Abdominal: Soft. Bowel sounds are normal. She exhibits distension. There is no tenderness. There is no rigidity, no rebound and no guarding. Musculoskeletal: Right ankle: She exhibits no swelling. Left ankle: She exhibits no swelling. Neurological: She is alert and oriented to person, place, and time. She displays no tremor. Coordination normal. Skin: Skin is warm and dry. Rash noted. There is erythema. Erythema bilaterally underneath pannus skin fold, worse on the left with associated skin breakdown Psychiatric: She has a normal mood and affect. Her speech is normal and behavior is normal. Nursing note and vitals reviewed. Studies reviewed in eDH. Remarkable for the following: LABS: Last 3 wbc, hgb, hct plt Recent Labs 11/18/18 0440 11/17/18 0125 11/16/18 0230 WBC 8.5 7.4 11.0* HGB 12.8 12.2 13.5 HCT 40.3 36.9 41.5 PLATELET 158 125* 173 Last 3 Lytes Recent Labs 11/18/18 0440 11/17/18 0125 11/16/18 0230 NA 137 135 134* K 3.5 3.2* 3.8 CL 100 101 95* CO2 24 21* 23 BUN 41* 48* 57* CREATININE 1.94* 2.59* 3.79* Last 3 LFTs Recent Labs 11/16/18 0230 AST 48* ALT 24 ALKPHOS 105 BILITOT 0.6 Last Ca, Mg, Phos Recent Labs 11/18/18 0440 11/16/18 0230 CALCIUM 9.1 < > 8.9 PHOS -- -- 2.7 < > = values in this interval not displayed. Last 3 Coags Recent Labs 11/16/18 0230 PT 13.4* INR 1.2 PTT 29 Last 3 HgbA1C Recent Labs 11/16/18 0230 HA1C 6.8* FSBG Trend Recent Labs 11/18/18 1110 11/18/18 0637 11/17/18 1956 11/17/18 1613 11/17/18 1147 11/17/18 0724 11/17/18 0622 11/16/18 2013 11/16/18 1630 11/16/18 1137 POCGLU 202* 140 169 154 167 166 136 191 137 131 Results for ROSIBEL BOWDEN ( ) as of 11/17/2018 12:13 Ref. Range 11/16/2018 03:31 Color UA Latest Ref Range: Yellow [place] Appearance UA Latest Ref Range: Clear Cloudy (A) Spec [place] UA Latest Ref Range: 1.002 - 1.030 1.017 pH UA Latest Ref Range: 5.0 - 8.0 5.0 Protein UA Latest Ref Range: Negative mg/dL >=500 (A) Glucose UA Latest Ref Range: Negative mg/dL Negative Ketones UA Latest Ref Range: Negative mg/dL Negative Bilirubin UA Latest Ref Range: Negative mg/dL Negative Urobilinogen UA Latest Ref Range: Normal mg/dL 2.0 (A) Blood UA Latest Ref Range: Negative mg/dL Large (A) Leukocytes UA Latest Ref Range: Negative mcL Moderate (A) Nitrite UA Latest Ref Range: Negative Negative WBC UA Latest Ref Range: 0 - 5 /HPF >182 (H) WBCs Clumping Latest Ref Range: None /HPF Many (A) RBC UA Latest Ref Range: 0 - 4 /HPF >182 (H) Bacteria UA Latest Ref Range: None /HPF Moderate (A) Squam Epith UA Latest Ref Range: <=4 /HPF 5 (H) Culture Reflexed Unknown Yes Results for ROSIBEL BOWDEN ( ) as of 11/17/2018 12:13 Ref. Range 11/16/2018 02:44 U Creatinine Latest Units: mg/dL 120 U Sodium Latest Units: mmol/L 65 U Potassium Latest Units: mmol/L 33 U Chloride Latest Units: mmol/L 33 U Urea Nitrogen Latest Units: mg/dL 108 MICRO: Recent Labs 11/16/18 0331 URINECULTURE 1,000-9,000 cfu/ml Gram Negative Rods* No results for input(s): GRAMSTAIN, BFCX, LOWERRESPCX, TISSUECX in the last 720 hours. Recent Labs 11/16/18 0630 BLOODCX No growth at 1 day. ECG: No results for input(s): DIAGLINE, QTCCALC in the last 720 hours. VASCULAR: No results for input(s): VBTEXTRPT in the last 720 hours. IMAGING: EXAMINATION: XR CHEST ONE VIEW ?? CLINICAL HISTORY: assess for CAP in new septic pt ?? TECHNIQUE: AP view of the chest ?? COMPARISON: Chest radiograph 11/15/2018 ?? FINDINGS: Low lung volumes with bilateral atelectasis. Lungs otherwise clear. Trace bilateral pleural effusions. No pneumothorax. Cardiomediastinal silhouette is unchanged. ?? IMPRESSION Low lung volumes with bibasilar atelectasis and trace pleural effusions. No evidence of pneumonia. ?? I have personally reviewed the image(s) and the residents interpretation and agree with the findings, Ray Mejia at 11/16/2018 11:12 AM ?? Thank you for letting us participate in the care of this patient. For questions regarding this report, please contact the number below. Assessment and Plan: 48 year old female with history of T2DM and COPD now presenting with sepsis secondary to pyelonephritis vs. panniculitis with new AFUA. 1. Sepsis Secondary to UTI vs panniculitis - improving - Received notification from [place] that 3/3 blood cultures grew E.coli. Blood cultures thus far here have been negative - She was significantly hypotensive on arrival, with signs of end organ damage given her increased creatinine level. UA suggested urinary source of infection, urine culture has shown gram negative rodswith culture sensitivities still pending. - Significant redness and warmth with open wound ?abscess on the underside of pannus. - Lactate level normal. - Hypotension improved with IVF and levophed. She has improved with IV ceftriaxone. Plan: - continue ceftriaxone IV for UTI with plan to switch to cefpodoxime PO for discharge - doxycycline 100mg BID for skin infection/panniculitits MRSA coverage - Nursing wound care for panniculitis open wounds - anti-fungal regimen with miconazole 2. AFUA secondary to ATN - improving - Cr decreased from 3.79 on admission to 1.94 today. Per review of PCP medical records her Cr was 0.79 on 11/09/18 - AFUA likely secondary to ATN due to polypharmacy with nephrotoxic medication at home, NSAID use andsepsis. Her BUN:Cr ratio was 15 and Urine sodium 65, which favors ATN as etiology of AFUA more than apre-renal cause from systemic vasodilation/sepsis. Plan: - avoid nephrotoxic agents - continue to treat infection - monitor I&O - follow up with PCP as soon as possible out patient for lab recheck and medication adjustment 3. Dyspnea secondary to volume overload and COPD - improving - she received >3L of fluid since admission for septic shock management of hypotension, suspect she may have become volume overloaded - O2 Sat 93-95%. Currently on 2L-4L NC. She denies shortness of breath now. At baseline she has COPDand current every day smoker about 1/2 PPD. She also reports using O2 at night at home for sleep apnea but does not use CPAP because it didn't work for her. - CXR negative for acute process on admission - She now has increased urine output and is net negative this morning with improvement in symptoms. Hesitant to start diuretics given recent and still resolving AFUA - PCP notes record her weight on 11/09/18 as 275lbs. Weight here is 297lbs. - ECHO on 04/27/18 showed LVEF 65-70% ?diastolic dysfunction, mild aortic regurg, mildly dilated left atrium, right ventricle and right atrial. Elevated pulmonary systolic pressure 50-60 mmgHg Plan: - wean off oxygen as tolerated - continue home nebs as needed - PT / OT 4. T2DM - HgbA1C 6.8% - she reports recent weight loss with [employer] Plan: - insulin sliding scale - hold metformin and glipizide until stable renal function 5. Mood disorder - affect and mood appropriate on exam Plan -continue her home medications including methyphenidate, abilify, venlafaxine (home desvenlafaxine),and wellbutrin ?? 6. oral thrush Plan - nystatin mouth wash IV access:PIV DVT PPX: Heparin Team Pager(MD Coverage 09/09): #[phone] PCP: VERNA Irving [phone] Kadie Torres 11/18/2018 Plan of Care - Emilee Abreu RN - 11/18/2018 6:27 AM EDT Problem: Patient Care Overview Goal: Plan of Care Review Outcome: Ongoing (Interventions Implemented as Appropriate) 11/16/18 0544 11/18/18 0205 Coping/Psychosocial Plan Of Care Reviewed With -- patient Plan of Care Review Progress improving -- OUTCOME EVALUATION NOTE: OUTCOME SUMMARY: Assumed care for patient around 0030. Aletr and oriented, pleasant. Reports some unchanged back pain. IV abx administered. Placed on 2-4 L NC. Up independently. No further events. PLAN MOVING FORWARD: IV abx, plan? INDIVIDUALIZED FALL PREVENTION INTERVENTIONS: Patient-specific fall risk factors per assessment: [current deficits]: IV sites, Masimo, oxygen tubing Assistance [level of assistance required for transfers and ambulation]: Independent/SBA Supervision [direct monitoring required during toileting and ADLs]: Independent Surveillance [continuous indirect monitoring]: Purposeful rounding, nurse knowledge exchange Patient-specific fall prevention interventions for sensory deficits provided, if applicable: No CPG GOAL OUTCOME EVALUATION: Med Student Progress Note - Kadie Torres Alba - 11/17/2018 8:08 AM EDT [facility] Medicine Daily Progress Note Admit Date: 11/16/2018 Hospital Day 1 day Active Hospital Problems Diagnosis ??? Acute renal failure Resolved Hospital Problems No resolved problems to display. PMH Active Non-Hospital Problems Diagnosis ??? Chronic low back pain ??? Depression ??? Anxiety ??? Hyperlipidemia ??? Hypertension ??? Type 2 diabetes mellitus ??? COPD (chronic obstructive pulmonary disease) ??? Cigarette smoker ??? Bilateral knee pain Inpatient Medications: Scheduled ??? famotidine 20 mg Oral Daily ??? vancomycin 2 g Intravenous Once ??? methylphenidate HCl 20 mg Oral BID ??? methylphenidate HCl 10 mg Oral QAM ??? ARIPiprazole 10 mg Oral Daily ??? sodium chloride 0.9 % (flush) 5 mL Intravenous BID ??? heparin (Porcine) 5,000 Units Subcutaneous Q8H JERARDO ??? cefTRIAXone 2 g Intravenous Q24H ??? fluticasone propionate 2 puff Inhalation BID ??? buPROPion 300 mg Oral Daily ??? venlafaxine 150 mg Oral Daily with breakfast ??? miconazole Topical (Top) BID ??? Vancomycin Level - MAR Order Reminder NOT APPLICABLE Once ??? nystatin 500,000 Units Oral 4 Times Daily ? ? insulin lispro 2-8 Units Subcutaneous 4 Times Daily AC & HS Continuous infusions: PRN: sodium chloride 0.9 % (flush), lidocaine, ipratropium-albuterol, vancomycin- intermittent dosing per levels, Glucose 40% oral gel OR dextrose OR glucagon (human recombinant) Interval History: Rosibel Bowden is a 48 year old female with a history of T2DM, mood disorder on ariprazole and COPDwho presented [place] [facility] [place] left flank pain, fever and decreased urine output. She reports that 4 days ago she began feeling burning with urination. She developed lower abdominal pressure and back pain and eventually noticed her urine output decreased despite her not changing PO fluid intake. 3 days ago, she also developed chills with diaphoresis. She noticed her glucose levels became more difficult to control ranging as high as 500s (typically her BS are ~100-150). Her back pain increased and she presented to [facility]. On arrival, she was found to have hypotension with urinalysis suspicious for infection. She was started on 750mg Levofloaxicin and 2.5L IVF. Her hypotension continued, lowest systolic was 60. She was admitted to the ICU and stated on Levophed. In the ICU, her blood pressure increased and she was weaned of Levophed. She was started on IV ceftriaxone for presumed pyelonephritis causing sepsis. ICU also notice a soft tissue lesion under pannus concerning for infection so vancomycin was added for MRSA coverage. Lab work revealed leukocytosis (11K) and AFUA on admission (Cr 3.79) on admission. This morning, Cr decreased to 2.59, potassium 3.2, bicarb 21, WBC 7.4 She began to have some shortness of breath requiring 2L NC oxygen, so fluids were stopped. CXR was negative for infiltrate. Rosibel reports using 2L NC oxygen at home only while sleeping. She was prescribed a CPAP in the past for HELEN but did not use it. Reports smoking 1/2 PPD of cigarettes. She denies a personal history of renal disease, denies history of stones, recent catheter or procedures. She does take diclofenac at home for chronic back pain. She denies taking ibuprofen, gabapentin and lisinopril over the past several days. ROS: General: Reports fevers, chills and fatigue per HPI. Also reports recent 100lb weight loss over the past 6m-1y using weight watchers. HEENT: Denies recent URI Respiratory: Repots COPD on 2L O2 only at night per HPI. She does not use a CPAP for her HELEN. CV: Denies chest pain GI: Denies nausea, vomiting or diarrhea : Reports dysuria per HPI MSK: Reports bilateral osteoarthritis of the knees and chronic low back pain. Per PCP office notes she is prescribed: Diclofenac 50mg BID, Percocet 10/325mg QID PRN, Neurontin 800mg BID and Baclofen 10mg BID PRN. Skin: reports rash in skin folds being present for some time but does not recent skin break down on the left side. Psych: History of depression and anxiety, managed on Abilify 10mg QD, Pristiq 100mg QD, Wellbutrin 200mg QD and Ritalin 30mg AM + 20mg PM per PCP office note from 11/09/18. Physical Exam Vitals Range last 24 hrs Temperature Temp: [36.6 ??C (97.9 ??F)-37.1 ??C (98.7 ??F)] Heart Rate Heart Rate: [93-99] Blood Pressure BP: (103-125)/(64-82) Respiratory Rate Resp: [19-45] SpO2 SpO2: [88 %-97 %] Intake/Output Summary (Last 24 hours) at 11/17/2018 1402 Last data filed at 11/17/2018 1200 Gross per 24 hour Intake 1590 ml Output 2780 ml Net -1190 ml Patient Vitals for the past 168 hrs: Weight 11/17/18 0200 135 kg (297 lb 9.9 oz) 11/16/18 0145 123.3 kg (271 lb 13.2 oz) Body mass index is 54.44 kg/m??. Physical Exam Constitutional: She is oriented to person, place, and time. She appears well- developed and well-nourished. Non-toxic appearance. She does not have a sickly appearance. She does not appear ill. No distress. HENT: Head: Normocephalic and atraumatic. Mouth/Throat: Mucous membranes are normal. Eyes: Conjunctivae and lids are normal. No scleral icterus. Cardiovascular: Normal rate, regular rhythm, S1 normal and S2 normal. Exam reveals no gallop and no friction rub. No murmur heard. Pulses: Radial pulses are 2+ on the right side, and 2+ on the left side. Pulmonary/Chest: Effort normal. No accessory muscle usage. No respiratory distress. She has decreased breath sounds. She has no wheezes. On 2L NC Abdominal: Soft. Bowel sounds are normal. She exhibits distension. There is no tenderness. There is no rigidity, no rebound and no guarding. Musculoskeletal: Right ankle: She exhibits no swelling. Left ankle: She exhibits no swelling. Neurological: She is alert and oriented to person, place, and time. She displays no tremor. Coordination normal. Skin: Skin is warm and dry. Rash noted. There is erythema. Erythema bilaterally underneath pannus skin fold, worse on the left with associated skin breakdown Psychiatric: She has a normal mood and affect. Her speech is normal and behavior is normal. Nursing note and vitals reviewed. Studies reviewed in eDH. Remarkable for the following: LABS: Last 3 wbc, hgb, hct plt Recent Labs 11/17/18 0125 11/16/18 0230 WBC 7.4 11.0* HGB 12.2 13.5 HCT 36.9 41.5 PLATELET 125* 173 Last 3 Lytes Recent Labs 11/17/18 0125 11/16/18 0230 NA 135 134* K 3.2* 3.8 CL 101 95* CO2 21* 23 BUN 48* 57* CREATININE 2.59* 3.79* Last 3 LFTs Recent Labs 11/16/18 0230 AST 48* ALT 24 ALKPHOS 105 BILITOT 0.6 Last Ca, Mg, Phos Recent Labs 11/17/18 0125 11/16/18 0230 CALCIUM 7.7* 8.9 PHOS -- 2.7 Last 3 Coags Recent Labs 11/16/18 0230 PT 13.4* INR 1.2 PTT 29 Last 3 HgbA1C Recent Labs 11/16/18 0230 HA1C 6.8* FSBG Trend Recent Labs 11/17/18 1147 11/17/18 0724 11/17/18 0622 11/16/18 2013 11/16/18 1630 11/16/18 1137 11/16/18 0723 11/16/18 0350 11/16/18 0157 POCGLU 167 166 136 191 137 131 132 209* 214* Results for ROSIBEL BOWDEN ( ) as of 11/17/2018 12:13 Ref. Range 11/16/2018 03:31 Color UA Latest Ref Range: Yellow Maritza Appearance UA Latest Ref Range: Clear Cloudy (A) Spec [place] UA Latest Ref Range: 1.002 - 1.030 1.017 pH UA Latest Ref Range: 5.0 - 8.0 5.0 Protein UA Latest Ref Range: Negative mg/dL >=500 (A) Glucose UA Latest Ref Range: Negative mg/dL Negative Ketones UA Latest Ref Range: Negative mg/dL Negative Bilirubin UA Latest Ref Range: Negative mg/dL Negative Urobilinogen UA Latest Ref Range: Normal mg/dL 2.0 (A) Blood UA Latest Ref Range: Negative mg/dL Large (A) Leukocytes UA Latest Ref Range: Negative mcL Moderate (A) Nitrite UA Latest Ref Range: Negative Negative WBC UA Latest Ref Range: 0 - 5 /HPF >182 (H) WBCs Clumping Latest Ref Range: None /HPF Many (A) RBC UA Latest Ref Range: 0 - 4 /HPF >182 (H) Bacteria UA Latest Ref Range: None /HPF Moderate (A) Squam Epith UA Latest Ref Range: <=4 /HPF 5 (H) Culture Reflexed Unknown Yes Results for ROSIBEL BOWDEN ( ) as of 11/17/2018 12:13 Ref. Range 11/16/2018 02:44 U Creatinine Latest Units: mg/dL 120 U Sodium Latest Units: mmol/L 65 U Potassium Latest Units: mmol/L 33 U Chloride Latest Units: mmol/L 33 U Urea Nitrogen Latest Units: mg/dL 108 MICRO: Recent Labs 11/16/18 0331 URINECULTURE 1,000-9,000 cfu/ml Gram Negative Rods* No results for input(s): GRAMSTAIN, BFCX, LOWERRESPCX, TISSUECX in the last 720 hours. No results for input(s): BLOODCX in the last 720 hours. ECG: No results for input(s): DIAGLINE, QTCCALC in the last 720 hours. VASCULAR: No results for input(s): VBTEXTRPT in the last 720 hours. IMAGING: EXAMINATION: XR CHEST ONE VIEW ?? CLINICAL HISTORY: assess for CAP in new septic pt ?? TECHNIQUE: AP view of the chest ?? COMPARISON: Chest radiograph 11/15/2018 ?? FINDINGS: Low lung volumes with bilateral atelectasis. Lungs otherwise clear. Trace bilateral pleural effusions. No pneumothorax. Cardiomediastinal silhouette is unchanged. ?? IMPRESSION Low lung volumes with bibasilar atelectasis and trace pleural effusions. No evidence of pneumonia. ?? I have personally reviewed the image(s) and the residents interpretation and agree with the findings, Ray Mejia at 11/16/2018 11:12 AM ?? Thank you for letting us participate in the care of this patient. For questions regarding this report, please contact the number below. Assessment and Plan: 48 year old female with history of T2DM and COPD now presenting with sepsis secondary to pyelonephritis with new AFUA. 1. Sepsis secondary to acute pyelonephritis UTI - She was significantly hypotensive on arrival, with signs of end organ damage given her increased creatinine level. UA suggested urinary source of infection, urine culture has shown gram negative rodswith culture sensitivities still pending. Lactate level normal - Hypotension improved with IVF and levophed. She has improved with IV ceftriaxone. Plan: - continue ceftriaxone IV - readjust antibiotics pending culture sensitives 2. AFUA - Cr decreased from 3.79 to 2.59 today. Per review of PCP medical records her Cr was 0.79 on 11/09/18 - Etiology may be multifactorial, potentially pre-renal vs. ATN. She may also have underlying kidneydisease given her history of diabetes. - pre-renal: hypotension from sepsis causing diffuse vasodilation and hypotension seems likely. However, her BUN:Cr is 15 and typical pre-renal ratios are >20. Also, her Urine sodium 65 when we would expect it to be <20. - Intra renal: -- ATN: ischemic damage due to septic shock causing end organ damage, NSAID and ARB use. She had >182 RBC in urine, appearance was maritza. -- AIN: she does have increased urine WBC but no increased eosinophils. AIN due to cephalosporin antibiotics unlikely since acute elevation in creatinine predates these medications -- GN: She has increased RBC in urine ?Churg babs (asthma + hematuria) unlikely - Post renal: she does have T2DM which may cause obstruction through neurogenic bladder. Less likely given the acuity of her sxs. Plan: - avoid nephrotoxic agents - continue to treat infection - monitor I&O - D/C Briggs 3. Skin rash / lesion on underside of left pannus - patient reports ongoing redness within skin folds for sometime. Reports recent skin breakdown on the left pannus skin fold but admits this is difficult for her to see. 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 Plan: - continue Vancomycin - Nursing wound care - anti-fungal regimen with nystatin oral and miconazole powder 4. Dyspnea - She reported some shortness of breath yesterday requiring oxygen, O2 93-95%. Currently on 2L NC down from 3L. She denies shortness of breath now. At baseline she has COPD and current every day smokerabout 1/2 PPD. She also reports using O2 at night at home for sleep apnea but does not use CPAP because it didn't work for her. - CXR negative for acute process on admission - she received >3L of fluid since admission, suspect she may have become volume overloaded last night. She now has increased urine output and is net negative this morning with improvement in symptoms. - PCP notes record her weight on 11/09/18 as 275lbs. Weight here is 297lbs. - ECHO on 04/27/18 showed LVEF 65-70% ?diastolic dysfunction, mild aortic regurg, mildly dilated left atrium, right ventricle and right atrial. Elevated pulmonary systolic pressure 50-60 mmgHg Plan: - wean off oxygen as tolerated - continue home Flovent - PT / OT 5. T2DM - HgbA1C 6.8% - she reports recent weight loss with [employer] Plan: - ISS - obtain PCP medical records 6. Mood disorder - affect and mood appropriate on exam Plan -continue her home medications including methyphenidate, abilify, venlafaxine (home desvenlafaxine),and wellbutrin ?? IV access:PIV Tubes/Drains:Briggs DVT PPX: Heparin Team Pager( Coverage 09/09): #[phone] PCP: VERNA Irving [phone] Kadie Torres 11/17/2018 Initial Assessments - Candace Crain RN - 11/16/2018 6:05 PM EDT Office of Care Management Initial Assessment Candace Crain RN reviewed record and discussed patient with Care Team. Source of Information: the patient Introduced self/reviewed role; services accepted. Reason for Hospitalization: 11/16/2018 Received in transfer from OSH for further management of acute renal failure No past medical history on file. Hospitalizations Within the Past 30 Days: no mention Anticipated Length Of Stay (If known): transition to hospital medicine today Current Decision-Making Capacity: able to make own healthcare decisions Advance Care Planning: Code Status: Full No AD on file in eDH; If AD's have not been completed, the patient would want her sister Therese Scott be her surrogate decision maker per [place] surrogate decision making law. Any patient receiving care at [facility] must abide by [place] law. The hierarchy for surrogate decision making is: (a) Patient???s spouse, or civil union partner or common law spouse unless there is a divorce proceeding, separation agreement, or restraining order limiting that person???s relationship with the patient. (b) Any adult son or daughter of the patient. (c) Either parent of the patient. (d) Any adult brother or sister of the patient. (e) Any adult grandchild of the patient. (f) Any grandparent of the patient. (g) Any adult aunt, uncle, niece, or nephew of the patient. (h) A close friend of the patient. (i) The agent with financial power of insurance attorney or a conservator appointed in accordance with RSA 464-A. (j) The guardian of the patient???s estate. Current Coping/Education/Information Needs: understands the medical plan of care and expects to transition to another patient care unit Current Functional Ability: awake, alert, conversant, pleasant and cooperative with care. On supplemental O2 to maintain saturations but is able to speak in full sentences Functional Status Prior to Admission: Independent in the community, on home O2 Home Environment: single family residence; lives with partner Douglas Scherer Social & Family Supports/Community Resources: family/friends/uses [facility] for oxygen needs Behavioral Health History: chart review mentions mood disorder Substance Use/Abuse: current everyday smoker (1 PPD) Occasional alcohol use/no abuse No mention of illicit drug use/abuse Other Pertinent/Service Specific Information: to be assessed Health/Prescription Coverage: Primary Insurance: MEDICARE Secondary Insurance: MEDICAID [place] Prescription Coverage: yes Preferred Pharmacy: [facility] [place] Other: To be assessed Primary Care Provider: VERNA Irving [phone] Patient/Caregiver Goals of Treatment: to return home Potential Needs for Transition of Care: Rehab/SNF: pending PT/OT evaluations Home Health: may consider, uncertain at this time. Will revisit tomorrow. DME: home oxygen/[facility] Dialysis: not anticipated Community Resources: aware Transportation: private vehicle Other: TBD Anticipated Barriers to Discharge/Special Considerations: none; supportive family/friend; established with current PCP Assessment: 48 yo female who is oxygen dependent at baseline (reactive airway disease dx) accepted in transfer from [facility] for further management of sepsis. She is progressing with the medical plan of care and will transition to Hospital Medicine. Although she has supportive family/friends, she may benefit from VNA support during her initial recovery period. Further conversation is needed, however, to determine if she would consider this discharge option available to her. Plan: Visit tomorrow for additional d/c needs assessment. A member of the Care Management team will continue to monitor progress, follow for continuity of care and assist with transition of care planning. Candace Crain RN Pager: [phone] Consult Note - Tania Mcfarland RN - 11/16/2018 12:39 PM EDT Images from the original note were not included. Certified Wound Care Nurse Note Situation: Asked to see Rosibel A Fabrizio by Cami Felix RN for Left side of pannus with moist reddned yeast like infection. Miconazole powder ordered. Background: e[facility] notes reviewed for history, admitting diagnosis and active problem list. Wound Assessment and Care Provided: Patient seen today in the MICU, RN at bedside. Patient states she has been out of it for 4 days and when she woke up the redness on the left pannus was present. Permission received to assess the pannus skin. Left side of pannus with Interdry Ag present which was removed. The left pannus is with redness, moisture, odor and denudement, the area is painful for patient. Cleansed with dermal wound cleanser and Mepilex Ag applied. The following picture was taken: Left pannus, head is to the left: Ramiro Score: 16 Last Pressure Ulcer Prevention assessment: Shift Pressure Injury Prevention Occiput: No Injury Thoracic Spine: No Injury Sacral: No Injury Ischial - left: No Injury Ischial - right: No Injury Heel - left: Redness, Blanchable Heel - right: Redness, Blanchable Elbow - left: No Injury Elbow - right: No Injury Device Sites: O2 sat monitor, oxygen tubing, SCD's/venodynes, IV sites, briggs, ECG Leads, BP Cuff Other Sites: ID bands Nutritional Status Wt Readings from Last 1 Encounters: 11/16/18 123.3 kg (271 lb 13.2 oz) Body mass index is 49.72 kg/m??. Labs Lab Results Component Value Date ALBUMIN 3.2 11/16/2018 WBC 11.0 (H) 11/16/2018 HGB 13.5 11/16/2018 HCT 41.5 11/16/2018 Nutritional Intake Nutrition Assessments Fluids: adequate Fluids Requirement: MIVF Nutrition Interventions Nutrition Interventions: referred to dietitian Current bed: [facility] Assessment: Patient is with denudement from moisture under the left pannus. Intertrigo best treated with silver foam for now to absorb moisture, prevent skin to skin contact and provide an antimicrobial component. After the area is better and not as moist then can return to Miconazole powder. Wound Care Recommendations: Mepilex Ag to left pannus: Nursing to change dressing weekly and as needed for dressing with 50% or greater strike though drainage. 1. Cleanse wound and periwound skin with wound cleanser and gauze. 2. Cover wound and periwound skin with Mepilex Ag. Wound Care Team will plan to follow: weekly. Discussed plan with: /RADHA/PA: Dr. Tee RN: Doe Arnold Please contact TANIA MCFARLAND RN on pager [phone] or the wound care team at [phone] or pager [phone] skin and wound care concerns or questions. Electronically Signed By: TANIA MCFARLAND RN Consult Note - Juan Zapata [facility] - 11/16/2018 9:54 AM EDT Clinical Pharmacist Note-Vanc Rosibel Swainon [id number] 1970 Rosibelranjeet Bowden is a 48 y.o. female is being monitored due to antibiotic therapy which includes intravenous vancomycin. Regimen: Vancomycin Indication: empiric coverage of soft tissue infection Initiation Date: 11/16/2018 Day of Therapy: 1 Targeted Goal Range: 10 - 15 mcg/mL Pharmacokinetic information: Wt Readings from Last 1 Encounters: 11/16/18 123.3 kg (271 lb 13.2 oz) Ht Readings from Last 1 Encounters: 11/16/18 157.5 cm (5' 2) Labs: Vancomycin: No results found for requested labs within last 720 hours. Creatinine clearance: 11/16/2018: Creatinine 3.79 mg/dL* (Ref range: 0.70 - 1.20 mg/dL) Recommendations: Dosing recommendations: ?? Based on this information it is recommended to give a dose of 3000 mg now. Subsequent doses should be given when serum trough levels fall below 15 mcg/mL. Monitoring recommendations: ?? Recheck vancomycin serum trough levels with at 0600 (time) on 11/17/2018. If significant improvement in SCr, BUN or fluid status occurs recheck serum trough levels. Once renal function improves a scheduled dosing frequency may be possible. Until then it is recommended to redose based upon serum trough levels. We will continue to monitor the patient as long as she remains on vancomycin therapy. Please watch SCr, BUN and fluid status closely. Please page the care area pharmacist with any questions you may have. Alternately, during off-hours you may call [phone] to contact a pharmacist. JUAN ZAPATA RPH Plan of Care - Cami Felix RN - 11/16/2018 5:50 AM EDT Problem: Patient Care Overview Goal: Plan of Care Review 11/16/18 0544 Coping/Psychosocial Plan Of Care Reviewed With patient Plan of Care Review Progress improving OUTCOME EVALUATION NOTE: OUTCOME SUMMARY: Pt arrives from OSH by EMS around 0140. She was able to get up from stretcher and stand pivot to the bed with minimal assistance. Alert and oriented x4. Levo running at 16 mcg/min. Given 2 L LR over 2 hours. Levo weaned off around 0330. Received 2g Ceftriaxone IV. Urine cultures sent.Unable to get blood Cxs, Vascular access paged. Wound consult placed for left pannus/groin redness and breakdown. Interdry placed for moisture control and Miconazole powder ordered. PLAN MOVING FORWARD: MAPs >65; IV Abx INDIVIDUALIZED FALL PREVENTION INTERVENTIONS: Patient-specific fall risk factors per assessment: [current deficits]: Generalized weakness; Lines/tubes Assistance [level of assistance required for transfers and ambulation]: 1 person assist stand pivot Supervision [direct monitoring required during toileting and ADLs]: 1-2 person assist Surveillance [continuous indirect monitoring]: Ioana ICU Monitor; Bed alarm Patient-specific fall prevention interventions for sensory deficits provided, if applicable: [X] Yes CPG GOAL OUTCOME EVALUATION: Goal: Fall Prevention-Safe Patient Handling 11/16/18 04011/16/18 0544 Amin Fall Risk History of Falling -- 0 Secondary Diagnosis -- 15 Ambulatory Aids -- 0 Intravenous Therapy/Heparin/Saline Lock -- 20 Gait/Transferring -- 10 Mental Status -- 0 Score -- 45 OTHER Main Fall Risk -- High Restraint Interventions Safety Promotion/Fall Prevention activity supervised;fall prevention program maintained;muscle strengthening facilitated;nonskid shoes/slippers when out of bed;safety round/check completed -- Activity Activity Type activity adjusted per tolerance -- Activity Assistance Provided assistance, 2 people -- Goal: Infection Control 11/16/18 0200 11/16/18399 Safety Interventions Isolation Precautions -- standard precautions maintained Infection Prevention environmental surveillance performed;personal protective equipment utilized;rest/sleep promoted;single patient room provided;visitors restricted/screened -- Coping Strategies Supportive Measures active listening utilized;verbalization of feelings encouraged -- documented in this encounter Plan of Treatment Not on filedocumented as of this encounter Procedures Procedure Name Priority Date/Time Associated Comments Diagnosis HC VENIPUNCTURE STAT 11/19/2018 8:45 AM Result s for this EDT procedure are i n the results section. POCT GLUCOSE Routine 11/19/2018 6:49 AM Results f or this EDT procedure are i n the results section. SCAN, PERIPHERAL BLOOD Routine 11/19/2018 5:13 AM Results for this EDT procedure are i n the results section. HEMOGRAM Routine 11/19/2018 5:13 AM Results f or this EDT procedure are i n the results section. DIFFERENTIAL, AUTOMATED Routine 11/19/2018 5:13 AM Results for this EDT procedure are i n the results section. HC CBC,PLT & AUTO DIFF Routine 11/19/2018 5:13 AM EDT POCT GLUCOSE Routine 11/18/2018 9:39 PM Results f or this EDT procedure are i n the results section. POCT GLUCOSE Routine 11/18/2018 4:26 PM Results f or this EDT procedure are i n the results section. POCT GLUCOSE Routine 11/18/2018 11:10 Results for this AM EDT procedure are i n the results section. POCT GLUCOSE Routine 11/18/2018 6:37 AM Results f or this EDT procedure are i n the results section. SCAN, PERIPHERAL BLOOD Routine 11/18/2018 4:40 AM Results for this EDT procedure are i n the results section. HEMOGRAM Routine 11/18/2018 4:40 AM Results f or this EDT procedure are i n the results section. DIFFERENTIAL, AUTOMATED Routine 11/18/2018 4:40 AM Results for this EDT procedure are i n the results section. HC CBC,PLT & AUTO DIFF Routine 11/18/2018 4:40 AM EDT BASIC METABOLIC PANEL Routine 11/18/2018 4:40 AM Results for this (NON-FASTING) EDT procedure are in the results section. POCT GLUCOSE Routine 11/17/2018 7:56 PM Results f or this EDT procedure are i n the results section. POCT GLUCOSE Routine 11/17/2018 4:13 PM Results f or this EDT procedure are i n the results section. POCT GLUCOSE Routine 11/17/2018 11:47 Results for this AM EDT procedure are i n the results section. POCT GLUCOSE Routine 11/17/2018 7:24 AM Results f or this EDT procedure are i n the results section. POCT GLUCOSE Routine 11/17/2018 6:22 AM Results f or this EDT procedure are i n the results section. HC VANCOMYCIN Timed 11/17/2018 6:20 AM Results for this EDT procedure are i n the results section. HEMOGRAM Routine 11/17/2018 1:25 AM Results f or this EDT procedure are i n the results section. DIFFERENTIAL, AUTOMATED Routine 11/17/2018 1:25 AM Results for this EDT procedure are i n the results section. HC CBC,PLT & AUTO DIFF Routine 11/17/2018 1:25 AM EDT BASIC METABOLIC PANEL Routine 11/17/2018 1:25 AM Results for this (NON-FASTING) EDT procedure are in the results section. POCT GLUCOSE Routine 11/16/2018 8:13 PM Results f or this EDT procedure are i n the results section. POCT GLUCOSE Routine 11/16/2018 4:30 PM Results f or this EDT procedure are i n the results section. POCT GLUCOSE Routine 11/16/2018 11:37 Results for this AM EDT procedure are i n the results section. XR CHEST ONE VIEW Routine 11/16/2018 9:25 AM Resu lts for this EDT procedure are i n the results section. POCT GLUCOSE Routine 11/16/2018 7:23 AM Results f or this EDT procedure are i n the results section. HC BLOOD CULTURE- STAT 11/16/2018 6:30 AM Resu lts for this EDT procedure are i n the results section. POCT GLUCOSE Routine 11/16/2018 3:50 AM Results f or this EDT procedure are i n the results section. URINALYSIS MICROSCOPIC Routine 11/16/2018 3:31 AM Results for this EXAM EDT procedure are i n the results section. URINALYSIS WITH REFLEX Routine 11/16/2018 3:31 AM Results for this CULTURE EDT procedure are i n the results section. URINE CULTURE Routine 11/16/2018 3:31 AM Results for this EDT procedure are i n the results section. HC UREA NITROGEN, URINE Routine 11/16/2018 2:44 AM Results for this 24 HR EDT procedure are i n the results section. HC SODIUM, URINE Routine 11/16/2018 2:44 AM Resul ts for this EDT procedure are i n the results section. HC CREATININE - NON Routine 11/16/2018 2:44 AM Re sults for this BLOOD EDT procedure are i n the results section. CMP W/FASTING GLUCOSE STAT 11/16/2018 2:30 AM Results for this EDT procedure are i n the results section. HEMOGRAM STAT 11/16/2018 2:30 AM Results f or this EDT procedure are i n the results section. DIFFERENTIAL, AUTOMATED STAT 11/16/2018 2:30 AM Results for this EDT procedure are i n the results section. HC L-LACTATE Routine 11/16/2018 2:30 AM Results f or this EDT procedure are i n the results section. HC PARTIAL STAT 11/16/2018 2:30 AM Results f or this THROMBOPLASTIN TIME EDT procedur e are in the results section. HC PROTHROMBIN TIME STAT 11/16/2018 2:30 AM Re sults for this EDT procedure are i n the results section. HC CBC,PLT & AUTO DIFF STAT 11/16/2018 2:30 AM EDT HC PHOSPHORUS, SERUM STAT 11/16/2018 2:30 AM R esults for this EDT procedure are i n the results section. HC MAGNESIUM, SERUM STAT 11/16/2018 2:30 AM Re sults for this EDT procedure are i n the results section. HEMOGLOBIN A1C Routine 11/16/2018 2:30 AM Results for this EDT procedure are i n the results section. POCT GLUCOSE Routine 11/16/2018 1:57 AM Results f or this EDT procedure are i n the results section. documented in this encounter Results (ABNORMAL) Basic Metabolic Panel (non-fasting) (11/19/2018 8:45 AM EDT) P athologist Signature Glucose Lvl 168 65 - 199 [facility] mg/dL [facility] Comment: Diabetes: >=200 mg/dL plus symp toms BUN 29 (H) 8 - 18 mg/dL [facility] Creatinine 1.48 (H) 0.70 - 1.20 mg/dL [facility] Sodium 139 135 - 145 mmol/L [facility] Potassium 3.5 3.5 - 5.0 mmol/L [facility] Comment: Please note: ??Patients with WBC >100,00 0 may have falsely elevated Potassium levels. ??For accurate Potassium quantif ication in these patients send serum separator tube (gold top) for subsequent determinations. ??Contact the Clinical Chemistry Laboratory if there are any qu estions. Chloride 100 98 - 107 mmol/L [facility] CO2 26 22 - 31 mmol/L [facility] Anion Gap 13 5 - 15 mmol/L [facility] Calcium 9.7 8.5 - 10.5 mg/dL [facility] Estimated GFR 41 (L) >=60 mL/min/1.73 m?? [facility] Comment: The eGFR was calculated using the CKD-EP I equation. As with all creatinine based estimates of kidney function, eGFR values calculated with the CKD-EPI equation are not accurate in patients wi th acute kidney failure, extremes of body mass or the acutely ill. [email or web address]/[email or web address] eGFR 48 (L) >=60 mL/min/1.73 m?? [facility] Comment: The eGFR was calculated using the CKD-EP I equation. As with all creatinine based estimates of kidney function, eGFR values calculated with the CKD-EPI equation are not accurate in patients wi th acute kidney failure, extremes of body mass or the acutely ill. [email or web address]/[email or web address] Specimen Anatomical Collection Method Collection Time Receive d Time (Source) Location / / Volume Laterality Blood specimen 11/19/2018 8:45 AM 019 8:58 (specimen) EDT AM EDT Resulting Agency Comment Spec In Lab Hoda Casas MD CHEMISTRY ORDERABLES Performing Organization Address City/State/[place] [address] POCT Glucose (11/19/2018 6:49 AM EDT) P athologist Signature POC Glucose 133 65 - 199 [facility] mg/dL [facility] Comment: Supplemental ranges: <140 mg/dL before meals <180 mg/dL all other times of the day Specimen Anatomical Collection Method Collection Time Receive d Time (Source) Location / / Volume Laterality Blood specimen 11/19/2018 6:49 AM 019 6:49 (specimen) EDT AM EDT Hoda Casas MD POINT OF CARE TEST ORDERABLE S Performing Organization Address City/State/ZIP Code Phon e Number [address] Scan, Peripheral Blood (11/19/2018 5:13 AM EDT) Patholo gist Method Time Signature Plat Estimate Normal [facility] RBC Morphology Abnormal [facility] Macrocytes 1-5 /HPF [facility] Specimen Anatomical Collection Method Collection Time Receive d Time (Source) Location / / Volume Laterality Blood specimen 11/19/2018 5:13 AM 019 5:54 (specimen) EDT AM EDT Resulting Agency Comment Spec In Lab Hoda Casas MD HEMATOLOGY ORDERABLES Performing Organization Address City/State/[place] [address] (ABNORMAL) Differential, Automated (11/19/2018 5:13 AM EDT) P athologist Signature Neutrophils % 52.0 % [facility] Neutr Abs (ANC) 4.49 1.70 - [facility] 6.10 [facility] x10(3)/[facility] LABORATORY Lymphocytes % 25.6 % [facility] Lymphocytes Abs 2.2 0.9 - 3.2 [facility] x10(3)/[facility] LABORATORY Monocytes % 9.4 % [facility] Monocyte Abs 0.8 0.3 - 0.9 [facility] x10(3)/[facility] LABORATORY Eosinophils % 0.0 % [facility] Eosinophils Abs 0.0 0.0 - 0.4 [facility] x10(3)/[facility] LABORATORY Basophils % 0.2 % [facility] Basophils Abs 0.0 0.0 - 0.1 [facility] x10(3)/[facility] LABORATORY Immature Gran % 12.80 % [facility] Comment: Immature granulocytes(IG's)percentage an d absolute count will include metamyelocytes, myelocytes, and promyelo cytes. Blood smears from CBCs yielding IG's will be scanned manually for concor dance. If this scan disagrees with the automated IG or if promyelocytes are not ed, a manual differential will be performed. Ree Gran Abs 1.11 (H) 0.00 - 0.04 x10(3)/[facility] LABORATORY Specimen Anatomical Collection Method Collection Time Receive d Time (Source) Location / / Volume Laterality Blood specimen 11/19/2018 5:13 AM 019 5:54 (specimen) EDT AM EDT Resulting Agency Comment Spec In Lab Hoda Casas MD HEMATOLOGY ORDERABLES Performing Organization Address City/State/[place] [address] (ABNORMAL) Hemogram (11/19/2018 5:13 AM EDT) Analysis Performed At Patho logist Time Signature WBC 8.6 4.0 - 9.5 [facility] x10(3)/[facility] LABORATORY RBC 4.25 4.00 - [facility] 5.21 [facility] x10(6)/[facility] LABORATORY Hemoglobin 13.2 11.7 - [facility] 15.5 gm/dL [facility] Hematocrit 40.9 35.7 - [facility] 45.8 % [facility] MCV 96.2 (H) 82.6 - [facility] 94.4 [facility] LABORATORY MCH 31.1 27.1 - [facility] 32.0 pg [facility] MCHC 32.3 31.7 - [facility] 35.0 gm/dL [facility] Platelets 212 145 - 357 [facility] x10(3)/[facility] LABORATORY RDWSD 51.0 (H) 37.0 - [facility] 46.0 [facility] LABORATORY RDWCV 14.4 (H) 11.5 - [facility] 14.1 % [facility] MPV 10.2 7.6 - 12.9 [facility] nRBC % Auto 0.0 % [facility] nRBC Abs Auto 0.000 0.000 - [facility] 0.000 [facility] x10(3)/[facility] LABORATORY Specimen Anatomical Collection Method Collection Time Receive d Time (Source) Location / / Volume Laterality Blood specimen 11/19/2018 5:13 AM 5:54 (specimen) EDT AM EDT Resulting Agency Comment Spec In Lab Hoda Casas MD HEMATOLOGY ORDERABLES Performing Organization Address City/State/[place] [address] POCT Glucose (11/18/2018 9:39 PM EDT) athologist Signature POC Glucose 133 65 - 199 [facility] mg/dL [facility] Comment: Supplemental ranges: <140 mg/dL before meals <180 mg/dL all other times of the day Specimen Anatomical Collection Method Collection Time Receive d Time (Source) Location / / Volume Laterality Blood specimen 11/18/2018 9:39 PM 019 9:39 (specimen) EDT PM EDT Hoda Casas MD POINT OF CARE TEST ORDERABLE S Performing Organization Address City/State/ZIP Code Phon e Number [address] POCT Glucose (11/18/2018 4:26 PM EDT) athologist Signature POC Glucose 149 65 - 199 [facility] mg/dL [facility] Comment: Supplemental ranges: <140 mg/dL before meals <180 mg/dL all other times of the day Specimen Anatomical Collection Method Collection Time Receive d Time (Source) Location / / Volume Laterality Blood specimen 11/18/2018 4:26 PM 019 4:26 (specimen) EDT PM EDT Hoda Casas MD POINT OF CARE TEST ORDERABLE S Performing Organization Address City/State/[place] [address] (ABNORMAL) POCT Glucose (11/18/2018 11:10 AM EDT) athologist Signature POC Glucose 202 (H) 65 - 199 [facility] mg/dL [facility] Comment: Supplemental ranges: <140 mg/dL before meals <180 mg/dL all other times of the day Specimen Anatomical Collection Method Collection Time Receive d Time (Source) Location / / Volume Laterality Blood specimen 11/18/2018 11:10 9 (specimen) AM EDT 11:10 AM EDT Hoda Casas MD POINT OF CARE TEST ORDERABLE S Performing Organization Address City/State/ZIP Code Phon e Number [address] POCT Glucose (11/18/2018 6:37 AM EDT) P athologist Signature POC Glucose 140 65 - 199 [facility] mg/dL [facility] Comment: Supplemental ranges: <140 mg/dL before meals <180 mg/dL all other times of the day Specimen Anatomical Collection Method Collection Time Receive d Time (Source) Location / / Volume Laterality Blood specimen 11/18/2018 6:37 AM 6:37 (specimen) EDT AM EDT Hoda Casas MD POINT OF CARE TEST ORDERABLE S Performing Organization Address City/[facility]/ZIP Code Phon e Number [address] Scan, Peripheral Blood (11/18/2018 4:40 AM EDT) [facility] Method Time Signature Plat Estimate Normal [facility] RBC Morphology Abnormal [facility] Tear Drop gtr than 10 /HPF [facility] LABORATORY Joffre Cells 1-5 /HPF [facility] Dohle Bodies Present [facility] Specimen Anatomical Collection Method Collection Time Receive d Time (Source) Location / / Volume Laterality Blood specimen 11/18/2018 4:40 AM 5:19 (specimen) EDT AM EDT Resulting Agency Comment Spec In Lab Hoda Casas MD HEMATOLOGY ORDERABLES Performing Organization Address City/[facility]/ZIP Code Phon e Number [address] (ABNORMAL) Differential, Automated (11/18/2018 4:40 AM EDT) [facility] Method Time Signature Neutrophils % 64.5 % [facility] Neutr Abs (ANC) 5.48 1.70 - [facility] 6.10 [facility] x10(3)/[facility] LABORATORY Lymphocytes % 16.9 % [facility] Lymphocytes Abs 1.4 0.9 - 3.2 [facility] x10(3)/[facility] LABORATORY Monocytes % 12.1 % [facility] Monocyte Abs 1.0 (H) 0.3 - 0.9 [facility] x10(3)/[facility] LABORATORY Eosinophils % 0.1 % [facility] Eosinophils Abs 0.0 0.0 - 0.4 [facility] x10(3)/[facility] LABORATORY Basophils % 1.2 % [facility] Basophils Abs 0.1 0.0 - 0.1 [facility] x10(3)/[facility] LABORATORY Immature Gran % 5.20 % [facility] Comment: Immature granulocytes(IG's)percentage an d absolute count will include metamyelocytes, myelocytes, and promyelo cytes. Blood smears from CBCs yielding IG's will be scanned manually for concor dance. If this scan disagrees with the automated IG or if promyelocytes are not ed, a manual differential will be performed. Ree Gran Abs 0.44 (H) 0.00 - 0.04 x10(3)/[facility] LABORATORY Specimen Anatomical Collection Method Collection Time Receive d Time (Source) Location / / Volume Laterality Blood specimen 11/18/2018 4:40 AM 019 5:19 (specimen) EDT AM EDT Resulting Agency Comment Spec In Lab Hoda Casas MD HEMATOLOGY ORDERABLES Performing Organization Address City/State/[place] [address] (ABNORMAL) Hemogram (11/18/2018 4:40 AM EDT) Analysis Performed At Patho logist Time Signature WBC 8.5 4.0 - 9.5 [facility] x10(3)/[facility] LABORATORY RBC 4.12 4.00 - [facility] 5.21 [facility] x10(6)/[facility] LABORATORY Hemoglobin 12.8 11.7 - [facility] 15[facility]/dL [facility] Hematocrit 40.3 35.7 - [facility] 45.8 % [facility] MCV 97.8 (H) 82.6 - [facility] 94.4 fL [facility] MCH 31.1 27.1 - [facility] 32.0 pg [facility] MCHC 31.8 31.7 - [facility] 35.0 gm/dL [facility] Platelets 158 145 - 357 [facility] x10(3)/[facility] LABORATORY RDWSD 51.9 (H) 37.0 - [facility] 46.0 [facility] LABORATORY RDWCV 14.4 (H) 11.5 - [facility] 14.1 % [facility] MPV 10.8 7.6 - 12.9 [facility] LABORATORY nRBC % Auto 0.0 % [facility] nRBC Abs Auto 0.000 0.000 - [facility] 0.000 [facility] x10(3)/[facility] LABORATORY Specimen Anatomical Collection Method Collection Time Receive d Time (Source) Location / / Volume Laterality Blood specimen 11/18/2018 4:40 AM 019 5:19 (specimen) EDT AM EDT Resulting Agency Comment Spec In Lab Hoda Casas MD HEMATOLOGY ORDERABLES Performing Organization Address City/State/[place] [address] (ABNORMAL) Basic Metabolic Panel (non-fasting) (11/18/2018 4:40 AM EDT) P athologist Signature Glucose Lvl 136 65 - 199 [facility] mg/dL [facility] Comment: Diabetes: >=200 mg/dL plus symp toms BUN 41 (H) 8 - 18 mg/dL [facility] Creatinine 1.94 (H) 0.70 - 1.20 mg/dL [facility] Sodium 137 135 - 145 mmol/L [facility] Potassium 3.5 3.5 - 5.0 mmol/L [facility] [facility] Comment: Please note: ??Patients with WBC >100,00 0 may have falsely elevated Potassium levels. ??For accurate Potassium quantif ication in these patients send serum separator tube (gold top) for subsequent determinations. ??Contact the Clinical Chemistry Laboratory if there are any qu estions. Chloride 100 98 - 107 mmol/L [facility] CO2 24 22 - 31 mmol/L [facility] Anion Gap 13 5 - 15 mmol/L [facility] Calcium 9.1 8.5 - 10.5 mg/dL [facility] Comment: result rechecked-JSD Estimated GFR 30 (L) >=60 mL/min/1.73 m?? [facility] Comment: The eGFR was calculated using the CKD-EP I equation. As with all creatinine based estimates of kidney function, eGFR values calculated with the CKD-EPI equation are not accurate in patients wi th acute kidney failure, extremes of body mass or the acutely ill. http://[employer]/[facility] WATONGAnkf eGFR 34 (L) >=60 mL/min/1.73 m?? [facility] Comment: The eGFR was calculated using the CKD-EP I equation. As with all creatinine based estimates of kidney function, eGFR values calculated with the CKD-EPI equation are not accurate in patients wi th acute kidney failure, extremes of body mass or the acutely ill. http://[employer]/[facility] WATONGAnkf Specimen Anatomical Collection Method Collection Time Receive d Time (Source) Location / / Volume Laterality Blood specimen 11/18/2018 4:40 AM 5:19 (specimen) EDT AM EDT Resulting Agency Comment Spec In Lab Hoda Casas MD CHEMISTRY ORDERABLES Performing Organization Address City/[facility]/ZIP Code Phon e Number [address] POCT Glucose (11/17/2018 7:56 PM EDT) P athologist Signature POC Glucose 169 65 - 199 [facility] mg/dL [facility] Comment: Supplemental ranges: <140 mg/dL before meals <180 mg/dL all other times of the day Specimen Anatomical Collection Method Collection Time Receive d Time (Source) Location / / Volume Laterality Blood specimen 11/17/2018 7:56 PM 019 7:56 (specimen) EDT PM EDT Hoda Casas MD POINT OF CARE TEST ORDERABLE S Performing Organization Address City/State/[place] [address] POCT Glucose (11/17/2018 4:13 PM EDT) athologist Signature POC Glucose 154 65 - 199 [facility] mg/dL [facility] Comment: Supplemental ranges: <140 mg/dL before meals <180 mg/dL all other times of the day Specimen Anatomical Collection Method Collection Time Receive d Time (Source) Location / / Volume Laterality Blood specimen 11/17/2018 4:13 PM 4:13 (specimen) EDT PM EDT Hoda Casas MD POINT OF CARE TEST ORDERABLE S Performing Organization Address City/State/ZIP Code Phon e Number [address] POCT Glucose (11/17/2018 11:47 AM EDT) athologist Signature POC Glucose 167 65 - 199 [facility] mg/dL [facility] Comment: Supplemental ranges: <140 mg/dL before meals <180 mg/dL all other times of the day Specimen Anatomical Collection Method Collection Time Receive d Time (Source) Location / / Volume Laterality Blood specimen 11/17/2018 11:47 9 (specimen) AM EDT 11:47 AM EDT Hoda Casas MD POINT OF CARE TEST ORDERABLE S Performing Organization Address City/State/ZIP Code Phon e Number [address] POCT Glucose (11/17/2018 7:24 AM EDT) athologist Signature POC Glucose 166 65 - 199 [facility] mg/dL [facility] Comment: Supplemental ranges: <140 mg/dL before meals <180 mg/dL all other times of the day Specimen Anatomical Collection Method Collection Time Receive d Time (Source) Location / / Volume Laterality Blood specimen 11/17/2018 7:24 AM 7:24 (specimen) EDT AM EDT Olvin Doran MD POINT OF CARE TEST ORDERABLE S Performing Organization Address City/State/[place] [address] POCT Glucose (11/17/2018 6:22 AM EDT) athologist Signature POC Glucose 136 65 - 199 [facility] mg/dL [facility] Comment: Supplemental ranges: <140 mg/dL before meals <180 mg/dL all other times of the day Specimen Anatomical Collection Method Collection Time Receive d Time (Source) Location / / Volume Laterality Blood specimen 11/17/2018 6:22 AM 6:22 (specimen) EDT AM EDT Olvin Doran MD POINT OF CARE TEST ORDERABLE S Performing Organization Address City/[facility]/[place] [address] Vancomycin, trough (11/17/2018 6:20 AM EDT) athologist Signature Vanc Trough 17.8 mg/L [facility] Comment: Therapeutic range for complicated infect ions such as bacteremia, endocarditis, osteomyelitis, meningitis, and hospital- acquired pneumonia caused by S. aureus: 15-20 mg/L Therapeutic range for other indications: 10-15 mg/L Toxic: >20 mg/L Reference: Vancomycin Therapeutic Monitoring: Aly w and Recommendations from the ASHP, IDSA and SIDP Task Force. ??Am J Health- Syst Pharm. 2009; 66:82-98 Specimen Anatomical Collection Method Collection Time Receive d Time (Source) Location / / Volume Laterality Blood specimen 11/17/2018 6:20 AM 6:31 (specimen) EDT AM EDT Resulting Agency Comment Spec In Lab Hoda Casas MD CHEMISTRY ORDERABLES Performing Organization Address City/[facility]/ZIP [facility] [place] [address] (ABNORMAL) Differential, Automated (11/17/2018 1:25 AM EDT) athologist Signature Neutrophils % 74.6 % [facility] Neutr Abs (ANC) 5.50 1.70 - [facility] 6.10 [facility] x10(3)/[facility] LABORATORY Lymphocytes % 12.7 % [facility] Lymphocytes Abs 0.9 0.9 - 3.2 [facility] x10(3)/[facility] LABORATORY Monocytes % 10.4 % [facility] Monocyte Abs 0.8 0.3 - 0.9 [facility] x10(3)/[facility] LABORATORY Eosinophils % 0.0 % [facility] Eosinophils Abs 0.0 0.0 - 0.4 [facility] x10(3)/[facility] LABORATORY Basophils % 0.5 % [facility] Basophils Abs 0.0 0.0 - 0.1 [facility] x10(3)/[facility] LABORATORY Immature Gran % 1.80 % [facility] Comment: Immature granulocytes(IG's)percentage an d absolute count will include metamyelocytes, myelocytes, and promyelo cytes. Blood smears from CBCs yielding IG's will be scanned manually for concor dance. If this scan disagrees with the automated IG or if promyelocytes are not ed, a manual differential will be performed. Ree Gran Abs 0.13 (H) 0.00 - 0.04 x10(3)/[facility] LABORATORY Specimen Anatomical Collection Method Collection Time Receive d Time (Source) Location / / Volume Laterality Blood specimen 11/17/2018 1:25 AM 019 1:42 (specimen) EDT AM EDT Resulting Agency Comment Spec In Lab Kandis Tee MD HEMATOLOGY ORDERABLES Performing Organization Address City/State/[place] [address] (ABNORMAL) Hemogram (11/17/2018 1:25 AM EDT) Analysis Performed At Patho logist Time Signature WBC 7.4 4.0 - 9.5 [facility] x10(3)/[facility] LABORATORY RBC 3.84 (L) 4.00 - [facility] 5.21 [facility] x10(6)/[facility] LABORATORY Hemoglobin 12.2 11.7 - [facility] 15.5 gm/dL [facility] Hematocrit 36.9 35.7 - [facility] 45.8 % [facility] MCV 96.1 (H) 82.6 - [facility] 94.4 fL [facility] MCH 31.8 27.1 - [facility] 32.0 [facility] LAB[facility]ATORY MCHC 33.1 31.7 - [facility] 35.0 gm/dL [facility] Platelets 125 (L) 145 - 357 [facility] x10(3)/[facility] LABORATORY RDWSD 51.3 (H) 37.0 - [facility] 46.0 [facility] LABORATORY RDWCV 14.4 (H) 11.5 - [facility] 14.1 % [facility] MPV 11.2 7.6 - 12.9 [facility] LABORATORY nRBC % Auto 0.0 % [facility] nRBC Abs Auto 0.000 0.000 - [facility] 0.000 [facility] x10(3)/[facility] LABORATORY Specimen Anatomical Collection Method Collection Time Receive d Time (Source) Location / / Volume Laterality Blood specimen 11/17/2018 1:25 AM 019 1:42 (specimen) EDT AM EDT Resulting Agency Comment Spec In Lab Kandis Tee MD HEMATOLOGY ORDERABLES Performing Organization Address City/State/[place] [address] (ABNORMAL) Basic Metabolic Panel (non-fasting) (11/17/2018 1:25 AM EDT) P athologist Signature Glucose Lvl 140 65 - 199 [facility] mg/dL [facility] Comment: Diabetes: >=200 mg/dL plus symp toms BUN 48 (H) 8 - 18 mg/dL [facility] Creatinine 2.59 (H) 0.70 - 1.20 mg/dL [facility] Comment: result rechecked-JSD Sodium 135 135 - 145 mmol/L [facility] Potassium 3.2 (L) 3.5 - 5.0 mmol/L [facility] Comment: Please note: ??Patients with WBC >100,00 0 may have falsely elevated Potassium levels. ??For accurate Potassium quantif ication in these patients send serum separator tube (gold top) for subsequent determinations. ??Contact the Clinical Chemistry Laboratory if there are any qu estions. Chloride 101 98 - 107 mmol/L [facility] CO2 21 (L) 22 - 31 mmol/L [facility] Anion Gap 13 5 - 15 mmol/L [facility] Calcium 7.7 (L) 8.5 - 10.5 mg/dL [facility] Comment: result rechecked-JSD Estimated GFR 21 (L) >=60 mL/min/1.73 m?? [facility] Comment: The eGFR was calculated using the CKD-EP I equation. As with all creatinine based estimates of kidney function, eGFR values calculated with the CKD-EPI equation are not accurate in patients wi th acute kidney failure, extremes of body mass or the acutely ill. [email or web address] eGFR 24 (L) >=60 mL/min/1.73 m?? [facility] Comment: The eGFR was calculated using the CKD-EP I equation. As with all creatinine based estimates of kidney function, eGFR values calculated with the CKD-EPI equation are not accurate in patients wi th acute kidney failure, extremes of body mass or the acutely ill. http://[employer]/[facility]Ankf Specimen Anatomical Collection Method Collection Time Receive d Time (Source) Location / / Volume Laterality Blood specimen 11/17/2018 1:25 AM 019 1:42 (specimen) EDT AM EDT Resulting Agency Comment Spec In Lab Hoda Casas MD CHEMISTRY ORDERABLES Performing Organization Address City/State/[place] [address] POCT Glucose (11/16/2018 8:13 PM EDT) P athologist Signature POC Glucose 191 65 - 199 [facility] mg/dL [facility] Comment: Supplemental ranges: <140 mg/dL before meals <180 mg/dL all other times of the day Specimen Anatomical Collection Method Collection Time Receive d Time (Source) Location / / Volume Laterality Blood specimen 11/16/2018 8:13 PM 019 8:13 (specimen) EDT PM EDT Olvin Doran MD POINT OF CARE TEST ORDERABLE S Performing Organization Address City/State/[place] [address] POCT Glucose (11/16/2018 4:30 PM EDT) athologist Signature POC Glucose 137 65 - 199 [facility] mg/dL [facility] Comment: Supplemental ranges: <140 mg/dL before meals <180 mg/dL all other times of the day Specimen Anatomical Collection Method Collection Time Receive d Time (Source) Location / / Volume Laterality Blood specimen 11/16/2018 4:30 PM 019 4:30 (specimen) EDT PM EDT Olvin Doran MD POINT OF CARE TEST ORDERABLE S Performing Organization Address City/[facility]/[place] [address] POCT Glucose (11/16/2018 11:37 AM EDT) athologist Signature POC Glucose 131 65 - 199 [facility] mg/dL [facility] Comment: Supplemental ranges: <140 mg/dL before meals <180 mg/dL all other times of the day Specimen Anatomical Collection Method Collection Time Receive d Time (Source) Location / / Volume Laterality Blood specimen 11/16/2018 11:37 9 (specimen) AM EDT 11:37 AM EDT Mylene Oakley MD POINT OF CARE TEST ORDER HOLLY Performing Organization Address City/[facility]/[place] [address] XR Chest One View (11/16/2018 9:25 AM EDT) Anatomical Region Laterality Modality Chest N/A Digital Radiography Specimen (Source) Anatomical Location Collection Method / Collectio n Time Received Time / Laterality Volume Impressions 11/16/2018 11:12 AM EDT Low lung volumes with bibasilar atelectasis and trace pleural effusions. No evidence of pneumonia. I have personally reviewed the image(s) and the residents interpretation and agree with the findings, Ray bernardo 11/16/2018 11:12 AM Thank you for letting us participate in the care of this patient. For questions regarding this report, please contact e number below. ? Electronically signed by: ZEENAT Seymour [facility] ([phone]), at 11/16/2018 11:12 AM Narrative 11/16/2018 11:12 AM EDT EXAMINATION: XR CHEST ONE VIEW CLINICAL HISTORY: assess for CAP in new septic pt TECHNIQUE: AP view of the chest COMPARISON: Chest radiograph 11/15/2018 FINDINGS: Low lung volumes with bilateral atelecta sis. Lungs otherwise clear. Trace bilateral pleural effusions. No pneumoth orax. Cardiomediastinal silhouette is unchanged. Procedure Note Ray Mejia MD - 11/16/2018Formatt ing of this note might be different from the original. EXAMINATION: XR CHEST ONE VIEW CLINICAL HISTORY: assess for CAP in new septic pt TECHNIQUE: AP view of the chest COMPARISON: Chest radiograph 11/15/2018 FINDINGS: Low lung volumes with bilateral atelecta sis. Lungs otherwise clear. Trace bilateral pleural effusions. No pneumoth orax. Cardiomediastinal silhouette is unchanged. IMPRESSION Low lung volumes with bibasilar atelecta sis and trace pleural effusions. No evidence of pneumonia. I have personally reviewed the image(s) and the residents interpretation and agree with the findings, Ray bernardo 11/16/2018 11:12 AM Thank you for letting us participate in the care of this patient. For questions regarding this report, please contact e number below. Electronically signed by: ZEENAT Seymour [facility] ([phone]), at 11/16/2018 11:12 AM Mylene Oakley MD IMG DX ORDERABLES POCT Glucose (11/16/2018 7:23 AM EDT) athologist Signature POC Glucose 132 65 - 199 [facility] mg/dL [facility] Comment: Supplemental ranges: <140 mg/dL before meals <180 mg/dL all other times of the day Specimen Anatomical Collection Method Collection Time Receive d Time (Source) Location / / Volume Laterality Blood specimen 11/16/2018 7:23 AM 019 7:23 (specimen) EDT AM EDT Mylene Oakley MD POINT OF CARE TEST ORDER HOLLY Performing Organization Address City/State/[place] [address] Blood culture (11/16/2018 6:30 AM EDT) Patholo gist Method Time Signature Blood Culture No growth KENDRA HERNANDEZ at 5 days. [facility] Specimen Anatomical Collection Method Collection Time Receive d Time (Source) Location / / Volume Laterality Blood specimen STRUCTURE OF LEFT 11/16/2018 6:30 AM 7:29 (specimen) HAND / Unknown EDT AM EDT Resulting Agency Comment Spec In Lab Mylene Oakley MD MICROBIOLOGY - BLOOD ORD ERABLES Performing Organization Address City/State/[place] [address] (ABNORMAL) POCT Glucose (11/16/2018 3:50 AM EDT) P athologist Signature POC Glucose 209 (H) 65 - 199 [facility]EN[facility]A STONERMARY mg/dL [facility] Comment: Supplemental ranges: <140 mg/dL before meals <180 mg/dL all other times of the day Specimen Anatomical Collection Method Collection Time Receive d Time (Source) Location / / Volume Laterality Blood specimen 11/16/2018 3:50 AM 019 3:50 (specimen) EDT AM EDT Mylene Oakley MD POINT OF CARE TEST ORDER HOLLY Performing Organization Address City/[facility]/[place] [address] (ABNORMAL) Urine culture (11/16/2018 3:31 AM EDT) Patholo gist Method Time Signature Urine Culture 1,000-9,000 KENDRA HERNANDEZ cfu/ml Gram [facility] Rod[facility] (A) LABORATORY Organism Gram [facility] (A) HOSPITAL LABORATORY Specimen (Source) Anatomical Collection Method Collection Time Re ceived Time Location / / Volume Laterality Urine specimen 11/16/2018 3:31 11/16/2018 5:16 obtained via AM EDT AM EDT indwelling urinary catheter (specimen) Resulting Agency Comment Spec In Lab Osvaldo Beebe MD MICROBIOLOGY - GENERAL ORDER HOLLY Performing Organization Address City/[facility]/[place] [address] (ABNORMAL) Urinalysis Microscopic Exam (11/16/2018 3:31 AM EDT) Radius App Method Time Signature RBC UA >182 (H) 0 - 4 [facility] WBC UA >182 (H) 0 - 5 [facility] WBCs Clumping Many (A) None /HPF [facility] Bacteria UA Moderate (A) None /HPF [facility] Squam Epith 5 (H) <=4 /HPF [facility] Specimen (Source) Anatomical Collection Method Collection Time Re ceived Time Location / / Volume Laterality Urine specimen 11/16/2018 3:31 11/16/2018 3:58 obtained via AM EDT AM EDT indwelling urinary catheter (specimen) Resulting Agency Comment Spec In Lab Osvaldo Beebe MD URINE ORDERABLES Performing Organization Address City/[facility] [place] [address] (ABNORMAL) Urinalysis with reflex Culture (11/16/2018 3:31 AM EDT) Radius App Method Time Signature Glucose UA Negative Negative [facility] mg/dL [facility] Protein UA >=500 (A) Negative [facility] mg/dL [facility] Bilirubin UA Negative Negative [facility] mg/dL [facility] Comment: Clinical correlation required for positi ve Urine Bilirubin results as false positive may occur with some drugs and d rug related products. If a false positive is suspected a serum total bili palacios should be considered if clinically indicated. Urobilinogen UA 2.0 (A) Normal mg/dL [facility] pH UA 5.0 5.0 - 8.0 [facility] Blood UA Large (A) Negative mg/dL [facility] Ketones UA Negative Negative mg/dL [facility] Nitrite UA Negative Negative [facility] Leukocytes UA Moderate (A) Negative mcL [facility] Appearance UA Cloudy (A) Clear [facility] Spec [place] UA 1.017 1.002 - 1.030 [facility] Color UA Maritza Yellow [facility] Culture Reflexed Yes [facility] Specimen (Source) Anatomical Collection Method Collection Time Re ceived Time Location / / Volume Laterality Urine specimen 11/16/2018 3:31 11/16/2018 3:55 obtained via AM EDT AM EDT indwelling urinary catheter (specimen) Resulting Agency Comment Spec In Lab Mylene Oakley MD URINE ORDERABLES Performing Organization Address City/[facility]/ZIP Code Phon e Number [address] Urea nitrogen, urine, random (11/16/2018 2:44 AM EDT) P athologist Signature U Urea 108 mg/dL [facility] LABORATORY Specimen Anatomical Collection Method Collection Time Receive d Time (Source) Location / / Volume Laterality Urine specimen 11/16/2018 2:44 AM 019 3:13 (specimen) EDT AM EDT Resulting Agency Comment Spec In Lab Mylene Oakley MD URINE ORDERABLES Performing Organization Address City/[facility]/ZIP Code Phon e Number [address] Creatinine, urine, random (11/16/2018 2:44 AM EDT) P athologist Signature U Creatinine 120 mg/dL [facility] Specimen Anatomical Collection Method Collection Time Receive d Time (Source) Location / / Volume Laterality Urine specimen 11/16/2018 2:44 AM 019 3:13 (specimen) EDT AM EDT Resulting Agency Comment Spec In Lab Mylene Oakley MD URINE ORDERABLES Performing Organization Address City/[facility]/ZIP Code Phon e Number [address] Electrolytes, urine, random (11/16/2018 2:44 AM EDT) P athologist Signature U Sodium 65 mmol/L [facility] U Potassium 33 mmol/L [facility] U Chloride 33 mmol/L [facility] Specimen Anatomical Collection Method Collection Time Receive d Time (Source) Location / / Volume Laterality Urine specimen 11/16/2018 2:44 AM 019 3:13 (specimen) EDT AM EDT Resulting Agency Comment Spec In Lab Mylene Oakley MD URINE ORDERABLES Performing Organization Address City/[facility]/[place] [address] (ABNORMAL) Hemoglobin A1c (11/16/2018 2:30 AM EDT) Analysis Performed At Patho logist Time Signature Hemoglobin A1C 6.8 (H) 4.3 - 5.6 [facility] Comment: Reference Range: 4.3 - 5.6% 5.7 - 6.4% - Increased Risk of Developin g Diabetes Mellitus >= 6.5% - Consistent with diagnosis of D iabetes Mellitus In the absence of hyperglycemia (i.e. pl asma glucose > 200 mg/dL) or classic symptoms of hyperglycemia a repeat measu rement of HbA1c should be performed on a separate sample to confirm the diagnos is. Diagnosis and Classification of Diabetes Mellitus, Diabetes Care 2013; 36: Suppl. 1, S67-58 Est Avg Gluc 149 mg/dL [facility] Comment: eAG equivalents for HbA1c percentages: HbA1c(%) ?eAG(mg/dL) 6.0 ?126 6.5 ?140 7.0 ?154 7.5 ?169 8.0 ?183 8.5 ?197 9.0 ?212 9.5 ?226 10.0 ? 240 Limitations: The eAG calculation has not been validated on women, individuals below 18 years old and above 70 years old, and individuals with hemoglobinopathies. Additional resources are available on ADA website. Floyd UNGER, Laurie J, Lucio R, et al. ??Tr anslating the A1C assay into estimated average glucose values. ??Diabetes Care 2008:31(8):5099-7158. Specimen Anatomical Collection Method Collection Time Receive d Time (Source) Location / / Volume Laterality Blood specimen Venous Draw / 11/16/2018 2:30 AM 2018 (specimen) Unknown EDT 12:33 PM EDT Resulting Agency Comment Spec In Lab Kandis Tee MD CHEMISTRY ORDERABLES Performing Organization Address City/State/[place] [address] (ABNORMAL) Differential, Automated (11/16/2018 2:30 AM EDT) [facility] gist Method Time Signature Neutrophils % 78.2 % [facility] LABORATORY Neutr Abs (ANC) 8.57 (H) 1.70 - [facility] 6.10 [facility] x10(3)/[facility] L LABORATORY Lymphocytes % 10.4 % [facility]OR[facility]ORY Lymphocytes Abs 1.1 0.9 - 3.2 [facility] x10(3)/[facility] LABORATORY Monocytes % 9.0 % [facility] LABOR[facility]ORY Monocyte Abs 1.0 (H) 0.3 - 0.9 [facility] x10(3)/[facility] LABORATORY Eosinophils % 0.0 % [facility]OR[facility]ORY Eosinophils Abs 0.0 0.0 - 0.4 [facility] x10(3)/[facility] LABORATORY Basophils % 0.5 % [facility]OR[facility]ORY Basophils Abs 0.0 0.0 - 0.1 [facility] x10(3)/[facility] LABORATORY Immature Gran % 1.90 % [facility] Comment: Immature granulocytes(IG's)percentage an d absolute count will include metamyelocytes, myelocytes, and promyelo cytes. Blood smears from CBCs yielding IG's will be scanned manually for concor dance. If this scan disagrees with the automated IG or if promyelocytes are not ed, a manual differential will be performed. Ree Gran Abs 0.21 (H) 0.00 - 0.04 x10(3)/[facility] LABORATORY Specimen Anatomical Collection Method Collection Time Receive d Time (Source) Location / / Volume Laterality Blood specimen 11/16/2018 2:30 AM 019 2:35 (specimen) EDT AM EDT Resulting Agency Comment Spec In Lab Osvaldo Beebe MD HEMATOLOGY ORDERABLES Performing Organization Address City/State/[place] [address] (ABNORMAL) Hemogram (11/16/2018 2:30 AM EDT) Analysis Performed At Patho logist Time Signature WBC 11.0 (H) 4.0 - 9.5 [facility] x10(3)/[facility] LABORATORY RBC 4.32 4.00 - [facility] 5.21 [facility] x10(6)/[facility] LABORATORY Hemoglobin 13.5 11.7 - [facility] 15.5 gm/dL [facility] Hematocrit 41.5 35.7 - [facility] 45.8 % [facility] MCV 96.1 (H) 82.6 - [facility] 94.4 fL [facility] MCH 31.3 27.1 - [facility] 32.0 pg [facility] MCHC 32.5 31.7 - [facility] 35.0 gm/dL [facility] Platelets 173 145 - 357 [facility] x10(3)/[facility] LABORATORY RDWSD 51.8 (H) 37.0 - [facility] 46.0 [facility] LABORATORY RDWCV 14.5 (H) 11.5 - [facility] 14.1 % [facility] MPV 11.4 7.6 - 12.9 [facility] LABORATORY nRBC % Auto 0.0 % [facility] LABORATORY nRBC Abs Auto 0.000 0.000 - [facility] 0.000 [facility] x10(3)/[facility] LABORATORY Specimen Anatomical Collection Method Collection Time Receive d Time (Source) Location / / Volume Laterality Blood specimen 11/16/2018 2:30 AM 019 2:35 (specimen) EDT AM EDT Resulting Agency Comment Spec In Lab Osvaldo Beebe MD HEMATOLOGY ORDERABLES Performing Organization Address City/[facility]/ZIP [facility] Phon e Number [address] Lactate, whole blood, send to lab ([facility]) (11/16/2018 2:30 AM EDT) P athologist Signature Lactate WB 1.7 0.5 - 2.2 [facility] mmol/L [facility] LABOR[facility]ORY Specimen Anatomical Collection Method Collection Time Receive d Time (Source) Location / / Volume Laterality Blood specimen 11/16/2018 2:30 AM 019 2:35 (specimen) EDT AM EDT Resulting Agency Comment Spec In Lab Mylene Oakley MD CHEMISTRY ORDERABLES Performing Organization Address City/[facility]/ZIP Code Phon e Number [address] (ABNORMAL) CMP w/fasting Glucose (11/16/2018 2:30 AM EDT) P athologist Signature Glucose 227 (H) 65 - 99 [facility] Fasting mg/dL [facility] Comment: ?Fasting* Glucose Interpretive C riteria Normal ?65-99 mg/dL Impaired Fasting glucose ?100-125 mg/dL Consistent with Diabetes Mellitus ? >or= 126 mg/dL *Fasting is defined as no caloric intake for at least 8 hours In the absence of unequivocal hypergly cemia a plasma glucose value of >or= 126 mg/dL should be repeated on a subseq uent day. Diagnosis and Classification of Diabetes Mellitus, Position Statement from the [employer]. ??Diabete s Care, Volume 33, Supplement 1, Feb 2009 BUN 57 (H) 8 - 18 mg/dL [facility] LABORATORY Creatinine 3.79 (H) 0.70 - 1.20 mg/dL [facility] LABORATORY Sodium 134 (L) 135 - 145 mmol/L [facility] LABORATORY Potassium 3.8 3.5 - 5.0 mmol/L [facility] LABORATORY Comment: Please note: ??Patients with WBC >100,00 0 may have falsely elevated Potassium levels. ??For accurate Potassium quantif ication in these patients send serum separator tube (gold top) for subsequent determinations. ??Contact the Clinical Chemistry Laboratory if there are any qu estions. Chloride 95 (L) 98 - 107 mmol/L [facility]OR[facility]ORY CO2 23 22 - 31 mmol/L [facility] Anion Gap 16 (H) 5 - 15 mmol/L [facility] LABORATORY Calcium 8.9 8.5 - 10.5 mg/dL [facility] LABORATORY Total Protein 7.0 6.1 - 8.0 gm/dL [facility] LABORATORY Albumin 3.2 3.2 - 5.2 gm/dL [facility]OR[facility] AST 48 (H) 0 - 30 unit/L [facility] LABOR[facility] ALT 24 0 - 30 unit/L [facility] Alk Phos 105 35 - 105 unit/L [facility]OR[facility] Total Bilirubin 0.6 0.2 - 1.3 mg/dL [facility] LABORATORY Estimated GFR 13 (L) >=60 mL/min/1.73 m?? [facility]OR[facility] Comment: The eGFR was calculated using the CKD-EP I equation. As with all creatinine based estimates of kidney function, eGFR values calculated with the CKD-EPI equation are not accurate in patients wi th acute kidney failure, extremes of body mass or the acutely ill. [email or web address]/[email or web address] eGFR 15 (L) >=60 mL/min/1.73 m?? [facility] Comment: The eGFR was calculated using the CKD-EP I equation. As with all creatinine based estimates of kidney function, eGFR values calculated with the CKD-EPI equation are not accurate in patients wi th acute kidney failure, extremes of body mass or the acutely ill. [email or web address]/[email or web address] Specimen Anatomical Collection Method Collection Time Receive d Time (Source) Location / / Volume Laterality Blood specimen 11/16/2018 2:30 AM 019 2:35 (specimen) EDT AM EDT Resulting Agency Comment Spec In Lab Mylene Oakley MD CHEMISTRY ORDERABLES Performing Organization Address City/State/ZIP Code Phon e Number [address] Magnesium (11/16/2018 2:30 AM EDT) P athologist Signature Magnesium 0.73 0.69 - 1.07 [facility] mmol/L [facility] LABOR[facility]ORY Specimen Anatomical Collection Method Collection Time Receive d Time (Source) Location / / Volume Laterality Blood specimen 11/16/2018 2:30 AM 019 2:35 (specimen) EDT AM EDT Resulting Agency Comment Spec In Lab Mylene Oakley MD CHEMISTRY ORDERABLES Performing Organization Address City/State/ZIP Code Phon e Number [address] Phosphorus (11/16/2018 2:30 AM EDT) P athologist Signature Phosphorus 2.7 2.5 - 4.5 [facility] mg/dL [facility] LABOR[facility]ORY Specimen Anatomical Collection Method Collection Time Receive d Time (Source) Location / / Volume Laterality Blood specimen 11/16/2018 2:30 AM 019 2:35 (specimen) EDT AM EDT Resulting Agency Comment Spec In Lab Mylene Oakley MD CHEMISTRY ORDERABLES Performing Organization Address City/[facility]/[place] [address] APTT (11/16/2018 2:30 AM EDT) P athologist Signature PTT 29 25 - 37 sec [facility] Comment: The PTT is NOT appropriate for heparin m onitoring. Use the Anti-Xa level for heparin monitoring (HEP UFH) or LMWH mon itoring (HEP LMW). A PTT less than 37 seconds generally indicates adequate hem ostasis. Specimen Anatomical Collection Method Collection Time Receive d Time (Source) Location / / Volume Laterality Blood specimen 11/16/2018 2:30 AM 019 2:35 (specimen) EDT AM EDT Resulting Agency Comment Spec In Lab Mylene Oakley MD HEMATOLOGY ORDERABLES Performing Organization Address City/[facility] [place] [address] (ABNORMAL) Prothrombin Time (11/16/2018 2:30 AM EDT) P athologist Signature PT 13.4 (H) 9.4 - 12.5 [facility] LABORATORY INR 1.2 [facility] LABORATORY Comment: An INR <2.0 indicates adequate procoagul ant activity for hemostasis in most patients without underlying bleeding dis orders, though the INR may not adequately reflect hemostatic capacity i n patients with liver disease and synthetic impairment. The recommended ta rget INR range for therapeutic anticoagulation is 2.0 ? 3.0 for most applications, though lower and higher ranges may be appropriate depending on c linical circumstances. Specimen Anatomical Collection Method Collection Time Receive d Time (Source) Location / / Volume Laterality Blood specimen 11/16/2018 2:30 AM 019 2:35 (specimen) EDT AM EDT Resulting Agency Comment Spec In Lab Mylene Oakley MD HEMATOLOGY ORDERABLES Performing Organization Address City/[facility]/[place] [address] (ABNORMAL) POCT Glucose (11/16/2018 1:57 AM EDT) P athologist Signature POC Glucose 214 (H) 65 - 199 [facility] mg/dL [facility] Comment: Supplemental ranges: <140 mg/dL before meals <180 mg/dL all other times of the day Specimen Anatomical Collection Method Collection Time Receive d Time (Source) Location / / Volume Laterality Blood specimen 11/16/2018 1:57 AM 019 1:57 (specimen) EDT AM EDT Mylene Oakley MD POINT OF CARE TEST ORDER HOLLY Performing Organization Address City/State/[place] [address] documented in this encounter Visit Diagnoses Diagnosis Acute kidney injury Acute kidney failure, unspecified Septic shock Morbid obesity HELEN (obstructive sleep apnea) Obstructive sleep apnea (adult) (pediatr ic) Type 2 diabetes mellitus Type II or unspecified type diabetes kentrell litus without mention of complication, not stated as uncontrolled documented in this encounter Admitting Diagnoses Diagnosis Acute renal failure Acute kidney failure, unspecified documented in this encounter Administered Medications Inactive Administered Medications - up to 3 most recent administrations Medication Order MAR Action Action Date Dose Rate Site acetaminophen (TYLENOL) tablet Given 11/18/2018 9:51 PM EDT 1,00 0 mg 1,000 mg 1,000 mg, Oral, EVERY 6 HOURS PRN, Starting on Fri11/18/18 at 0651, Until Fri11/19/18 at 1320, Pain, Fever, Headaches, Maximum dose of acetaminophen is 4000 mg from all sources in 24 hours., Routine ARIPiprazole (ABILIFY) tablet 10 mg Given 11/19/2018 9:19 AM EDT 10 mg 10 mg, Oral, DAILY, First dose on Fri11/16/18 at 0900, Until Discontinued, Routine Given 11/18/2018 8:52 AM EDT 10 mg Given 11/17/2018 9:15 AM EDT 10 mg buPROPion (WELLBUTRIN XL) XL tablet 300 mg Given 11/19/2018 9:19 AM EDT 300 mg 300 mg, Oral, DAILY, First dose on Fri11/16/18 at 0900, Until Discontinued, DO NOT CRUSH OR OPEN, Routine Given 11/18/2018 8:53 AM EDT 300 mg Given 11/17/2018 9:15 AM EDT 300 mg cefTRIAXone (ROCEPHIN) 2 g vial attach New Bag 11/18/2018 3:43 AM EDT 2 g 100 mL/hr to sodium chloride 0.9% 50 mL Mini-Bag Plus 2 g, Intravenous, EVERY 24 HOURS, First dose on Fri11/16/18 at 0245, Until Discontinued, Administer over 30 Minutes, Indication for (Active or Suspected): Bacteremia/Sepsis New Bag 11/17/2018 2:53 AM EDT 2 g 100 mL/hr New Bag 11/16/2018 4:11 AM EDT 2 g 100 mL/hr cephALEXin (KEFLEX) capsule 500 mg Given 11/19/2018 9:18 AM EDT 500 mg 500 mg, Oral, 4 TIMES DAILY, First dose on Alicia 11/19/18 at 0015, Until Discontinued, Routine Given 11/19/2018 12:31 AM EDT 500 mg dextrose 50% intravenous solution 25-50 mL 25-50 mL (12.5-25 g), Intravenous, EVERY 1 HOUR PRN, S tarting on 11/16/18 at 1234, Until Alicia 11/19/18 at 1320, Low blood sugar, F or BG 50-70 mg/dL: Oral treatment preferred:?? If able to drink, give 120 mL Juice or Regular (not diet) soda OR If NPO, give 15 gram glucose 40% oral gel massaged into buccal mucosa OR if unconscious or uncooperative, give 12.5 gram (25 mL) Dextrose 50% IV OR, if no IV access, give 1 mg Glucagon IM. For BG less than 50 mg/dL: Oral treatment preferred:?? If able to drink, give 240 mL Juice or Regular (not diet) soda OR If NPO, give 30 gram glucose 40% oral gel m assaged in buccal mucosa OR if unconscious or uncooperative, give 25 gram (50 mL) D extrose 50% IV OR, if no IV access, give 1 mg Glucagon IM. Recheck BG in 30 minutes. May repeat juice, gel, dextrose or glucagon once per episode. To avoid ex travasation, push Dextrose 50% SLOWLY (3 mL over 1 minute) in a patent, running IV, preferably a c entral line. For persistent hypoglycemia, consider longer -acting treatment for the duration of the active insulin., Routine doxycycline monohydrate (MONODOX) capsule 100 Given 9:19 AM EDT 100 mg mg 100 mg, Oral, 2 TIMES DAILY, First dose on Fri11/18/18 at 1230, Until Discontinued, Routine Given 11/18/2018 9:51 PM EDT 100 mg Given 11/18/2018 12:30 PM EDT 100 mg famotidine (PEPCID) tablet 20 mg Given 11/19/2018 9:18 AM EDT 20 mg 20 mg, Oral, DAILY, First dose (after last modification) on Fri11/17/18 at 0930, Until Discontinued, Routine Given 11/18/2018 8:53 AM EDT 20 mg Given 11/17/2018 9:15 AM EDT 20 mg fluticasone propionate (FLOVENT) 220 Given 11/19/2018 9:21 AM ED T 2 puffs mcg/actuation inhaler 2 puff 2 puff, Inhalation, 2 TIMES DAILY, First dose on Fri11/16/18 at 0900, Until Discontinued, Shake well; Rinse mouth after administration., Routine Given 11/18/2018 9:53 PM EDT 2 puffs Given 11/18/2018 8:53 AM EDT 2 puffs glucagon (human recombinant) injection S olR 1 mg 1 mg, Intramuscular, EVERY 1 HOUR PRN, S tarting on Fri11/16/18 at 1234, Until Alicia 11/19/18 at 1320, Low blood sugar, For BG 50-70 mg/d L: Oral treatment preferred:?? If able to drink, give 120 mL Juice or Regular (not diet) soda OR If NPO, give 15 gram glucose 40% oral gel massaged into b uccal mucosa OR if unconscious or uncooperative, give 12.5 gram (25 mL) Dextrose 50% IV OR, if no IV access, give 1 mg Glucagon IM. For BG less than 50 mg/dL: Oral treatment preferred:?? If able to drink, give 240 mL Juice or Regular (not diet) soda OR If NPO, give 30 gram glucose 40% oral gel m assaged in buccal mucosa OR if unconscious or uncooperative, give 25 gram (50 mL) D extrose 50% IV OR, if no IV access, give 1 mg Glucagon IM. Recheck BG in 30 minutes. May repeat juice, gel, dextrose or glucagon once per episode. To avoid ex travasation, push Dextrose 50% SLOWLY (3 mL over 1 minute) in a patent, running IV, preferably a c entral line. For persistent hypoglycemia, consider longer -acting treatment for the duration of the active insulin., Routine glucose (GLUTOSE) 40% oral gel 15-30 g, Buccal, EVERY 30 MIN PRN, Starting on 10/20 at 1234, Until Alicia 11/19/18 at 1320, Low blood sugar, For BG 50-70 mg/d L: Oral treatment preferred:?? If able to drink, give 120 mL Juice or Regular (not diet) soda OR If NPO, give 15 gram glucose 40% oral gel massaged into b uccal mucosa OR if unconscious or uncooperative, give 12.5 gram (25 mL) Dextrose 50% IV OR, if no IV access, give 1 mg Glucagon IM. For BG less than 50 mg/dL: Oral treatment preferred:?? If able to drink, give 240 mL Juice or Regular (not diet) soda OR If NPO, give 30 gram glucose 40% oral gel m assaged in buccal mucosa OR if unconscious or uncooperative, give 25 gram (50 mL) D extrose 50% IV OR, if no IV access, give 1 mg Glucagon IM. Recheck BG in 30 minutes. May repeat juice, gel, dextrose or glucagon once per episode. To avoid ex travasation, push Dextrose 50% SLOWLY (3 mL over 1 minute) in a patent, running IV, preferably a c entral line. For persistent hypoglycemia, consider longer -acting treatment for the duration of the active insulin. 1 tube contains 15 grams of glucose (n et weight of tube = 37.5 grams., Routine heparin (Porcine) subcutaneous injection Given 019 7:01 AM EDT 5,000 Units 5,000 Units 5,000 Units, Subcutaneous, EVERY 8 HOURS SCHEDULED, First dose on Fri11/16/18 at 0600, Until Discontinued, Routine Given 11/18/2018 9:52 PM EDT 5,000 Units Given 11/18/2018 2:30 PM EDT 5,000 Units insulin lispro (HumaLOG) VIAL injection 1-10 Given 03/2018 5:20 PM EDT 1 Units Units 1-10 Units, Subcutaneous, 3 TIMES DAILY WITH MEALS, First dose on Fri11/18/18 at 1200, Until Discontinued, [employer] Give 1 unit for every 15 grams carbohydrate. Hold if not eating, Routine Given 11/18/2018 12:34 PM EDT 2 Units insulin lispro (HumaLOG) VIAL injection 2-8 Given 03/2018 4:34 PM EDT 2 Units Units 2-8 Units, Subcutaneous, 4 TIMES DAILY BEFORE MEALS & NIGHTLY, First dose on Fri11/16/18 at 1630, Until Discontinued, CORRECTION BOLUS Moderate BG 140 - 160 Give 2 units BG 161 - 200 Give 4 units BG 201 - 240 Give 6 units BG greater than 240, give 8 units and recheck BG in 2 hours.If BG less than 240 after two hours, give no insulin and resume prior schedule. If BG remains greater than 240, repeat 8 units (no more than three times) & call for new basal insulin orders. DO NOT hold if NPO, unless specifically told to do so., Routine Given 11/18/2018 11:38 AM EDT 6 Units Given 11/17/2018 8:33 PM EDT 4 Units insulin lispro (HumaLOG) VIAL injection 3-12 Given 4:07 AM EDT 9 Units Units 3-12 Units, Subcutaneous, EVERY 4 HOURS SCHEDULED, First dose on Fri11/16/18 at 0400, Until Discontinued, CORRECTION BOLUS Resistant to insulin obese patient or TDD (total daily dose of all insulin needed to achieve glycemic control) greater than 60 units BG 140 - 160 Give 3 units BG 161 - 200 Give 6 units BG 201 - 240 Give 9 units BG greater than 240, give 12 units and recheck BG in 2 hours. If less than 240 after two hours, give no insulin and resume prior schedule. If BG remains greater than 240, repeat 12 units (no more than three times) & call for new basal insulin orders. DO NOT hold if NPO, unless specifically told to do so., Routine ipratropium-albuterol (DUONEB) 0.5 mg-3 Given 11/18/2018 10:23 P M EDT 3 mLs mg(2.5 mg base)/3 mL nebulizer solution 3 mL 3 mL, Nebulization, EVERY 4 HOURS PRN, Starting on Fri11/16/18 at 0248, Until Fri11/19/18 at 1320, Wheezing, Routine lactated Ringers 2,000 mL IV bolus New Bag 11/16/2018 2:24 AM EDT 1000 mL/hr at 1,000 mL/hr, Intravenous, ONCE, 1 dose, On Fri11/16/18 at 0245 lactobacillus with pectin 1 capsule Given 11/19/2018 10:03 AM EDT 1 capsule 1 capsule, Oral, DAILY, First dose on Fri11/19/18 at 0900, Until Discontinued, Routine magnesium sulfate 2 g in sterile water New Bag 11/16/2018 3:27 AM EDT 2 g 25 mL/hr 50 mL 2 g, Intravenous, ONCE, 1 dose, On Fri11/16/18 at 0330, Administer over 120 Minutes methylphenidate HCl (RITALIN) tablet 10 mg Given 11/19/2018 7:02 AM EDT 10 mg 10 mg, Oral, EVERY MORNING, First dose on Fri11/16/18 at 0600, Until Discontinued, Routine Given 11/18/2018 6:51 AM EDT 10 mg Given 11/17/2018 5:36 AM EDT 10 mg methylphenidate HCl (RITALIN) tablet 20 mg Given 11/19/2018 7:02 AM EDT 20 mg 20 mg, Oral, 2 TIMES DAILY, First dose on Fri11/16/18 at 0600, Until Discontinued, Routine Given 11/18/2018 12:29 PM EDT 20 mg Given 11/18/2018 6:52 AM EDT 20 mg miconazole (MICOTIN) 2 % powder Given 11/19/2018 9:23 AM EDT Topical (Top), 2 TIMES DAILY, First dose on Fri11/16/18 at 0900, Until Discontinued Given 11/18/2018 9:53 PM EDT Given 11/18/2018 8:53 AM EDT NORepinephrine (LEVOPHED) 4 mg/250 mL (1 6 mcg/mL) infusion 1 dose, Starting on Fri11/16/18 at 0143, Until Fri11/16/18 at 0223, Risa Damon: cabinet override NORepinephrine 16 mcg/mL Rate/Dose Change 11/16/2018 3:12 AM 4 mcg/mi n 15 mL/hr (standard ADULT and Pedi EDT greater than 20 kg) infusion 0-100 mcg/min (0-375 mL/hr), Intravenous, CONTINUOUS, Starting on Fri11/16/18 at 0245, Until Fri11/16/18 at 1305, Titrate to keep MAP greater than 65 mmHg. Start at 2 mcg/min and increase by 2 mcg/min every 3 minutes until goal reached. Do not exceed 200 mcg/min., Routine Rate/Dose Change 11/16/2018 3:01 AM EDT 8 mcg/min 30 mL/hr Rate/Dose Change 11/16/2018 2:42 AM EDT 10 mcg/min 37.5 mL/hr nystatin (Mycostatin) (100,000 Given 11/19/2018 9:18 AM EDT 500, 000 Units units/mL) oral liquid 500,000 Units 500,000 Units, Oral, 4 TIMES DAILY, 28 doses, First dose on Fri11/16/18 at 1300, Last dose on Fri11/23/18 at 0900, Routine Given 11/18/2018 9:52 PM EDT 500,000 Units Given 11/18/2018 5:20 PM EDT 500,000 Units pantoprazole (PROTONIX) tablet 40 mg Given 11/16/2018 8:29 AM EDT 40 mg 40 mg, Oral, DAILY, First dose on Fri11/16/18 at 0900, Until Discontinued, DO NOT CRUSH OR OPEN, Routine potassium chloride (K-DUR/KLOR-CON) extended Given 02/2018 3:22 AM EDT 40 mEq release tablet 40 mEq 40 mEq, Oral, ONCE, 1 dose, On Fri11/17/18 at 0315, 20 mEq tablet may be dissolved in water for administration, Routine sodium chloride 0.9 % (flush) flush 5 mL Given 11/19/2018 9:22 AM EDT 5 mLs 5 mL, Intravenous, 2 TIMES DAILY, First dose on Fri11/16/18 at 0245, Until Discontinued, Routine Given 11/18/2018 9:54 PM EDT 5 mLs Given 11/18/2018 9:00 AM EDT 5 mLs vancomycin (VANCOCIN) 3,000 mg New Bag 11/16/2018 10:38 AM EDT 3,000 mg 186.7 mL/hr in sodium chloride 0.9% 560 mL 3,000 mg (3 g), Intravenous, ONCE, 1 dose, On Fri11/16/18 at 1015, Administer over 180 Minutes, Maximum infusion rate is 1 gram/hour. If flushing of the face, neck, upper body, arms, and/or back occurs decrease infusion rate by 50% to reduce the severity of symptoms. This medication may have an associated drug lab level. Please see MAR for scheduled level. Warning Vesicant/Irritant Medication , Indication for (Active or Suspected): Skin/Skin Structure vancomycin 2 g in sodium chloride New Bag 11/17/2018 12:09 PM EDT 2 g 250 mL/hr 0.9% 500 mL 2 g, Intravenous, ONCE, 1 dose, On Fri11/17/18 at 1200, Administer over 120 Minutes, Maximum infusion rate is 1 gram/hour. If flushing of the face, neck, upper body, arms, and/or back occurs decrease infusion rate by 50% to reduce the severity of symptoms. This medication may have an associated drug lab level. Please see MAR for scheduled level. Warning Vesicant/Irritant Medication , Indication for (Active or Suspected): Skin/Skin Structure venlafaxine (EFFEXOR-XR) XR Capsule 150 mg Given 11/19/2018 9:18 AM EDT 150 mg 150 mg, Oral, DAILY WITH BREAKFAST, First dose on Fri11/16/18 at 0800, Until Discontinued, DO NOT CRUSH OR OPEN, Routine Given 11/18/2018 8:52 AM EDT 150 mg Given 11/17/2018 7:32 AM EDT 150 mg documented in this encounter Active and Recently Administered Medications Times are shown in EDT. Scheduled Medication Order 11/17/2018 11/18/2018 11/19/2018 ARIPiprazole (ABILIFY) tablet 10 mg 0915 (Given - Prov ider: Doe Arnold RN) 0852 (Given - Provider: Dionte Rice RN) 0919 (Giv en - Provider: Sigifredo Terry RN) 10 mg, Oral, DAILY, First dose on Fri at 0900, Until Discontinued, Routine buPROPion (WELLBUTRIN XL) XL tablet 300 mg 0915 (Given - Provider: Doe Arnold RN) 0853 (Given - Provider: Dionte Rice RN) 0919 (Giv en - Provider: Sigifredo Terry, PARMINDER) 300 mg, Oral, DAILY, First dose on Fri at 0900, Until Discontinued, DO NOT CRUSH OR OPEN, Routine cefTRIAXone (ROCEPHIN) 2 g vial attach t o sodium chloride 0.9% 50 mL Mini-Bag Plus (CANCELED) 0253 (New Bag - Provider: Cammie argueta RN)0323 (Stopped - Provider: Cammie Gallego RN) 0343 (New Bag - Provider: Emilee stanton RN)0413 (Stopped - Provider: Emilee Abreu RN) 2 g, Intravenous, EVERY 24 HOURS, First dose on Fri11/16/18 at 0245, Until Discontinued, Administer over 30 Minutes, Indication for (Active or Suspected): Bacteremia/Sepsis cephALEXin (KEFLEX) capsule 500 mg 0031 (Given - Provider: Jen Joel RN)0918 (Given - Provider: Sigifredo Terry, PARMINDER) 500 mg, Oral, 4 TIMES DAILY, First dose on Fri11/19/18 at 0015, Until Discontinued, Routine doxycycline monohydrate (MONODOX) capsule 100 mg 1230 (Given - Provider: Dionte Rice RN)2151 (Given - Provider: Jen Joel RN) 0919 (Given - Provider: Sigifredo Terry RN) 100 mg, Oral, 2 TIMES DAILY, First dose on Fri11/18/18 at 1230, Until Discontinued, Routine famotidine (PEPCID) tablet 20 mg 09 (Given - Provider: Allen Arnold RN) 0853 (Given - Provider: Dionte Rice RN) 0918 (Given - Provider: Sigifredo Terry, PARMINDER) 20 mg, Oral, DAILY, First dose on Fri at 0930, Until Discontinued, Routine fluticasone propionate (FLOVENT) 220 mcg/actuation inh aler 2 puff 0801 (Given - Provider: Gopi Felipe RCP)2034 (Given - Provider: Yesi Armendariz RN) 0853 (Given - Provider: Dionte Rice RN)2153 (Given - Provider: Jen Joel RN) 0921 (Given - Provider: Sigifredo diallo RN) 2 puff, Inhalation, 2 TIMES DAILY, First dose on Fri11/16/18 at 0900, Until Discontinued, Shake well; Rinse mouth after administration., Routine heparin (Porcine) subcutaneous injection 5,000 Units 0 538 (Given - Provider: Cammie Gallego RN)1332 (Given - Provider: Doe Arnold RN)2200 (Given - Provider: Yesi Armendariz RN) 0652 (Given - Provider: Emilee brown RN)1430 (Given - Provider: Dionte Rice RN)2152 (Given - Provider: Jen Joel RN) 0701 (Given - Provider: Jen Joel RN) 5,000 Units, Subcutaneous, EVERY 8 HOURS SCHEDULED, First dose on Fri11/16/18 at 0600, Until Discontinued, Routine insulin lispro (HumaLOG) VIAL injection 1-10 Units 1234 (Given - Provider: Dionte Rice RN)1720 (Given - Provider: Dionte Rice RN) 0800 (Not Given - Provider: Sigifredo Terry RN - Reason: Order parameters not met - Comment: carbs 9) 1-10 Units, Subcutaneous, 3 TIMES DAILY WITH MEALS, First dose on Fri11/18/18 at 1200, Until Discontinued, MEAL ASSOCIATED Give 1 unit for every 15 grams carbohydrate. Hold if not eating, Routine insulin lispro (HumaLOG) VIAL injection 2-8 Units(Link ed Group 1) 0730 (Not Given - Provider: Cammie Gallego RN - Reason: Order parameters not met)1154 (Given - Provider: Doe Arnold RN)1614 (Given - Provider: Doe Arnold RN)203 (Given - Provider: Yesi Armendariz RN - Comment: POC glucose 169) 0730 (Not Given - Provider: Emilee alfredo RN - Reason: Patient/family refused)1138 (Given - Provider: Dionte Rice, PARMINDER)1634 (Given - Provider: Dionte Rice RN) 0730 (Not Given - Provider: Jen abernathy RN - Reason: Order parameters not met - Comment: BG 133) 2-8 Units, Subcutaneous, 4 TIMES DAILY B EFORE MEALS & NIGHTLY, First dose on Fri11/16/18 at 1630, Until Discontinued, CORRECTION BOLUS Moderate BG 140 - 160 Give 2 units BG 161 - 200 Give 4 unit 2100 (Not Given - Provider: Jen Joel RN - Reason: Order parameters not met - Comment: BG 133) s BG 201 - 240 Give 6 units BG greater t dalton 240, give 8 units and recheck BG in 2 hours.If BG less than 240 after two hours, give no insulin and resume prior schedule. If BG remains greater than 240, re peat 8 units (no more than three times) & call for new basal insulin orders. DO NOT hold if NPO, unless specifically told to do so., Routine lactobacillus with pectin 1 capsule 1003 (Given - Provider: Sigifredo Terry, PARMINDER) 1 capsule, Oral, DAILY, First dose on 11/19/18 at 0900, Until Discontinued, Routine methylphenidate HCl (RITALIN) tablet 10 mg 0536 (Given - Provider: Cammie Gallgeo, PARMINDER) 0651 (Given - Provider: Emilee Abreu, PARMINDER) 0702 (G iven - Provider: Jen Joel RN) 10 mg, Oral, EVERY MORNING, First dose o n Fri11/16/18 at 0600, Until Discontinued, Routine methylphenidate HCl (RITALIN) tablet 20 mg 0537 (Given - Provider: Cammie Gallego, PARMINDER)1350 (Given - Provider: Doe Arnold RN) 0652 (Given - Provider: Emilee Abreu, PARMINDER)1229 (Given - Provider: Dionte Rice, PARMINDER) 0702 (Given - Provider: Jen Joel, PARMINDER) 20 mg, Oral, 2 TIMES DAILY, First dose o n Fri11/16/18 at 0600, Until Discontinued, Routine miconazole (MICOTIN) 2 % powder 0900 (Given - Provider : Doe Arnold RN)2032 (Given - Provider: Yesi Armendariz, PARMINDER) 0853 (Given - Provider: Dionte Rice RN)2152 (Given - Provider: Jen Joel, PARMINDER) 09 (Given - Provider: Sigifredo Terry, PARMINDER) Topical (Top), 2 TIMES DAILY, First dose on Fri11/16/18 at 0900 nystatin (Mycostatin) (100,000 units/mL) oral liquid 5 00,000 Units 0915 (Given - Provider: Doe Arnold RN)1332 (Given - Provider: Doe Arnold, PARMINDER)1750 (Given - Provider: Doe Arnold RN)2033 (Given - Provider: Yesi Armendariz RN) 0852 (Given - Provider: Dionte Rice RN)1230 (Given - Provider: Dionte Rice, PARMINDER)1720 (Given - Provider: Dionte Rice RN)2151 (Given - Provider: Jen Joel, PARMINDER) 0918 (Given - Provider: Sigifredo Terry, PARMINDER) 500,000 Units, Oral, 4 TIMES DAILY, 28 d oses, First dose on Fri11/16/18 at 1300, Last dose on Fri11/23/18 at 0900, Routine potassium chloride (K-DUR/KLOR-CON) extended release t ablet 40 mEq (COMPLETED) 0322 (Given - Provider: Cammie Gallego, PARMINDER) 40 mEq, Oral, ONCE, 1 dose, Fri11/17/18 at 0315, 20 mEq tablet may be dissolved in water for administration, Routine sodium chloride 0.9 % (flush) flush 5 mL 00 (Given - Provider: Doe Arnold RN)2034 (Given - Provider: Yesi Armendariz RN) 09 (Given - Provider: Dionte Rice RN)2153 (Given - Provider: Jen Joel, PARMINDER) 0922 (Given - Provider: Sigifredo Terry, PARMINDER) 5 mL, Intravenous, 2 TIMES DAILY, First dose on Fri11/16/18 at 0245, Until Discontinued, Routine vancomycin 2 g in sodium chloride 0.9% 500 mL (COMPLET ED) 1209 (New Bag - Provider: Doe Arnold, RN)1409 (Stopped - Provider: Doe Arnold, RN) 2 g, Intravenous, ONCE, 1 dose, 11/17 at 1200, Administer over 120 Minutes, Maximum infusion rate is 1 gram/hour. If flushing of the face, neck, upper body, arms, and/or back occurs decrease infus ion rate by 50% to reduce the severity o f symptoms. This medication may have an associated drug lab level. Please see MAR for scheduled level. Warning Vesicant/Irritant Medication , Indication for (Active or Suspected): Skin/Skin Structure venlafaxine (EFFEXOR-XR) XR Capsule 150 mg 0732 (Given - Provider: Doe Arnold, PARMINDER) 0852 (Given - Provider: Dionte Rice RN) 0918 (Giv en - Provider: Sigifredo Terry, PARMINDER) 150 mg, Oral, DAILY WITH BREAKFAST, Firs t dose on Fri11/16/18 at 0800, Until Discontinued, DO NOT CRUSH OR OPEN, Routine PRN Medication Order 11/17/2018 11/18/2018 11/19/2018 acetaminophen (TYLENOL) tablet 1,000 mg 215 (Given - Provider: Jen Joel, PARMINDER) 1,000 mg, Oral, EVERY 6 HOURS PRN, Start ing Fri11/18/18 at 0651, Until Alicia 11/19/18 at 1320, Pain, Fever, Headaches, Maximum dose of acetaminophen is 4000 mg from all sources in 24 hours., Routine dextrose 50% intravenous solution 25-50 mL(Linked Group 2) 25-50 mL (12.5-25 g), Intravenous, EVERY 1 HOUR PRN, Starting Fri11/16/18 at 1234, Until Alicia 11/19/18 at 1320, Low blood sugar, For BG 50-70 mg/dL: Oral treatment preferred:?? If able to drink, give 1 20 mL Juice or Regular (not diet) soda O R If NPO, give 15 gram glucose 40% oral gel massaged into buccal mucosa OR if unconscious or uncooperative, give 12.5 gram (25 mL) Dextrose 50% IV OR, if no IV ac cess, give 1 mg Glucagon IM. For BG l ess than 50 mg/dL: Oral treatment preferred:?? If able to drink, give 240 mL Juice or Regular (not diet) soda OR If NPO, give 30 gram glucose 40% oral gel massage d in buccal mucosa OR if unconscious or uncooperative, give 25 gram (50 mL) Dextrose 50% IV OR, if no IV access, give 1 mg Glucagon IM. Recheck BG in 30 minutes. May repeat juice, gel, dextrose or glu cagon once per episode. To avoid extra vasation, push Dextrose 50% SLOWLY (3 mL over 1 minute) in a patent, running IV, preferably a central line. For persistent hypoglycemia, consider longer-acting treatment for the duration of the active insulin., Routine glucagon (human recombinant) injection SolR 1 mg(Linked Group 2) 1 mg, Intramuscular, EVERY 1 HOUR PRN, S tarting 11/16/18 at 1234, Until Alicia 11/19/18 at 1320, Low blood sugar, For BG 50-70 mg/dL: Oral treatment preferred:?? If able to drink, give 120 mL Juice or Regular (not diet) soda OR If NPO, give 15 gram glucose 40% oral gel massaged into buccal mucosa OR if unconscious or uncooperative, give 12.5 gram (25 mL) Dextrose 50% IV OR, if no IV access, give 1 m g Glucagon IM. For BG less than 50 mg /dL: Oral treatment preferred:?? If able to drink, give 240 mL Juice or Regular (not diet) soda OR If NPO, give 30 gram glucose 40% oral gel massaged in buccal mu cosa OR if unconscious or uncooperative, give 25 gram (50 mL) Dextrose 50% IV OR, if no IV access, give 1 mg Glucagon IM. Recheck BG in 30 minutes. May repeat juice, gel, dextrose or glucagon once per episode. To avoid extravasation, push Dextrose 50% SLOWLY (3 mL over 1 minute) in a patent, running IV, preferably a central line. For persistent hypoglycemia, consider longer-acting treatment for the duration of the active insulin., Routine glucose (GLUTOSE) 40% oral gel(Linked Group 2) 15-30 g, Buccal, EVERY 30 MIN PRN, Start ing 11/16/18 at 1234, Until Alicia 11/19/18 at 1320, Low blood sugar, For BG 50-70 mg/dL: Oral treatment preferred:?? If able to drink, give 120 mL Juice or Reg ular (not diet) soda OR If NPO, give 15 gram glucose 40% oral gel massaged into buccal mucosa OR if unconscious or uncooperative, give 12.5 gram (25 mL) Dextrose 50% IV OR, if no IV access, give 1 mg Gl ucagon IM. For BG less than 50 mg/dL: Oral treatment preferred:?? If able to drink, give 240 mL Juice or Regular (not diet) soda OR If NPO, give 30 gram glucose 40% oral gel massaged in buccal mucosa OR if unconscious or uncooperative, giv e 25 gram (50 mL) Dextrose 50% IV OR, if no IV access, give 1 mg Glucagon IM. Recheck BG in 30 minutes. May repeat juice, gel, dextrose or glucagon once per epi sode. To avoid extravasation, push Dex trose 50% SLOWLY (3 mL over 1 minute) in a patent, running IV, preferably a central line. For persistent hypoglycemia, consider longer-acting treatment for the duration of the active insulin. 1 tube contains 15 grams of glucose (net weight of tube = 37.5 grams., Routine ipratropium-albuterol (DUONEB) 0.5 mg-3 mg(2.5 mg base)/3 mL nebulizer solution 3 mL 2223 (Given - Provider: Jen Joel RN) 3 mL, Nebulization, EVERY 4 HOURS PRN, S tarting 11/16/18 at 0248, Until Alicia 11/19/18 at 1320, Wheezing, Routine lidocaine (XYLOCAINE) 10 mg/mL (1 %) injection 3 mg 3 mg (0.3 mL), Subcutaneous, ONCE PRN, 1 dose, Starting 11/16/18 at 0221, Until Alicia 11/19/18 at 1320, for discomfort with PIV insertion, Routine sodium chloride 0.9 % (flush) flush 5-20 mL 5-20 mL, Intravenous, EVERY 1 MIN PRN, S tarting 11/16/18 at 0221, Until Alicia 11/19/18 at 1320, flush, Flush pertains to all indwelling lines. Flush per protocol found in the job aid using the link provided on this medication record., Routine Linked Groups Order Group 1: POCT Fingerstick Glucose (CANCELED) Routine, 4 TIMES DAILY BEFORE MEALS & AT BEDTIME, First occurrence on Fri11/16/18 at 1700, Until Specified
Consider choosing FOUR TIMES A DAY BEFORE MEALS AND AT BEDTIME as frequency fo r: Patients who have a good hypoglycemia awareness: -Patients who are eating meals during the day and sleeping at night -Patient who are otherwise stable And insulin lispro (HumaLOG) VIAL injection 2-8 UnitsJump to med 2-8 Units, Subcutaneous, 4 TIMES DAILY B EFORE MEALS & NIGHTLY, First dose on Fri11/16/18 at 1630, Until Discontinued
CORRECTION BOLUS Moderate BG 140 - 160 Give 2 units BG 161 - 200 & nbsp;Give 4 units BG 20 1 - 240 Give 6 units BG greater than 240, give 8 units and recheck BG in 2 hours.If BG less than 240 a fter two hours, give no insulin and resu me prior schedule. If BG remains greater than 240, repeat 8 units (no more than three times) & call for new basal insulin orders. & nbsp; DO NOT hold if NPO, unless sp ecifically told to do so.
Routine Group 2: glucose (GLUTOSE) 40% oral gelJump to med 15-30 g, Buccal, EVERY 30 MIN PRN, Start ing Fri11/16/18 at 1234, Until Alicia 11/19/18 at 1320, Low blood sugar
For BG 50-70 mg/dL: Oral treatment preferred:?? If able to drink, give 120 mL Juic e or Regular (not diet) soda OR If NPO, give 15 gram glucose 40% oral gel massaged into buccal mucosa OR if unconscious or uncooperative, give 12.5 gram (25 mL) Dextrose 50% IV OR, if no IV access, give 1 mg Glucagon IM. For BG less than 50 mg/dL: Oral treatment preferred:?? If able to drink, give 240 mL Juice or Regular (not diet) soda OR If NPO, give 30 gram glucose 40% oral gel massage d in buccal mucosa OR if unconscious or uncooperative, give 25 gram (50 mL) Dextrose 50% IV OR, if no IV access, give 1 mg Glucagon IM. Recheck BG in 30 minutes. May repeat juice, gel, dextro se or glucagon once per episode. * *To avoid extravasation, push Dextrose 50% SLOWLY (3 mL over 1 minute) in a patent, running IV, preferably a central line. For persistent hypogly cemia, consider longer-acting treatment for the duration of the active insulin. 1 tube contains 15 grams of glucose (net weight of tube = 37.5 grams.
Routine Or dextrose 50% intravenous solution 25-50 mLJump to med 25-50 mL (12.5-25 g), Intravenous, EVERY 1 HOUR PRN, Starting 11/16/18 at 1234, Until Alicia 11/19/18 at 1320, Low blood sugar
For BG 50-70 mg/dL: Oral treatment preferred:?? If able to drink , give 120 mL Juice or Regular (not diet ) soda OR If NPO, give 15 gram glucose 40% oral gel massaged into buccal mucosa OR if unconscious or uncooperative, give 12.5 gram (25 mL) Dextrose 50% IV OR, if no IV access, give 1 mg Glucagon IM. &nb sp; For BG less than 50 mg/dL: Oral treatment preferred:?? If able to drink, give 240 mL Juice or Regular (not diet) soda OR If NPO, give 30 gram glucose 40 % oral gel massaged in buccal mucosa OR if unconscious or uncooperative, give 25 gram (50 mL) Dextrose 50% IV OR, if no IV access, give 1 mg Glucagon IM. Recheck BG in 30 minutes. May repeat juice, gel, dextrose or glucagon once pe r episode. To avoid extravasation, push Dextrose 50% SLOWLY (3 mL over 1 minute) in a patent, running IV, preferably a central line. For persistent hypoglycemia, consider longer -acting treatment for the duration of the active insulin.
Routine Or glucagon (human recombinant) injection SolR 1 mgJump to med 1 mg, Intramuscular, EVERY 1 HOUR PRN, S tarting 11/16/18 at 1234, Until Alicia 11/19/18 at 1320, Low blood sugar
For BG 50-70 mg/dL: Oral treatment preferred:?? If able to drink, give 120 mL Juice or Regular (not diet) soda OR If N PO, give 15 gram glucose 40% oral gel massaged into buccal mucosa OR if unconscious or uncooperative, give 12.5 gram (25 mL) Dextrose 50% IV OR, if no IV access, give 1 mg Glucagon IM. For BG l ess than 50 mg/dL: Oral treatment preferred:?? If able to drink, give 240 mL Juice or Regular (not diet) soda OR If NPO, give 30 gram glucose 40% oral gel mas saged in buccal mucosa OR if unconscious or uncooperative, give 25 gram (50 mL) Dextrose 50% IV OR, if no IV access, give 1 mg Glucagon IM. Recheck BG in 30 minutes. May repeat juice, gel, de xtrose or glucagon once per episode. &nb sp;To avoid extravasation, push Dextrose 50% SLOWLY (3 mL over 1 minute) in a patent, running IV, preferably a central line. For persistent hyp oglycemia, consider longer-acting treatm ent for the duration of the active insulin.
Routine documented in this encounter Care Teams Health Concierge Relationship Specialty Start Date End Date Maria Del Carmen Nogueira PA PCP - General 01/27/14 10/05/19 [address] [place] [address] documented as of this encounter
--- OUTSIDE RECORDS SUMMARY | 2021-08-10 01:41 | XMS_ITS | Encounter Summary ---
:1970 Author Organization [facility] Address [address] [place] [address] Care Team Providers Name Role Phone Unavailable Primary Care Provider Unavailable Encounter Details Date Type Department Care Team Description 05/11/2008 Before [facility] - Tray Suárez MD Converted Visit [facility] ([place]) [address] [place] [address] [address] [place] [address] (Wo rk) Social History Tobacco Use Types Packs/Day Years Used Date Never Assessed Sex Assigned at Date Recorded Not on file documented as of this encounter Plan of Treatment Not on filedocumented as of this encounter Procedures Procedure Name Priority Date/Time Associated Comments Diagnosis HPV DETECTION, HIGH Routine 05/11/2008 15:10 Resu lts for this RISK TYPES EDT procedure are i n the results section. CYTOPATHOLOGY Routine 05/11/2008 0:00 Results for this EDT procedure are i n the results section. documented in this encounter Results HUMAN PAPILLOMA VIRUS DNA TEST (05/11/2008 15:10 EDT) Specimen Description Cervix, ThinPrep [facility] vial Result Negative for HPV [facility] types 16, 18, 31, 33, 35, 39, 45, 51, 52, 56, 58, 59, and 68. Report Status Final [facility] 05/19/2008 Specimen Performing Organization Address City/State/ZIP Code Phon e Number [facility] [address] [place] [address] SERVICES [facility] [address] [place] [address] CYTOPATHOLOGY (05/11/2008 0:00 EDT) Pathology Report: CYTOPATHOLOGY REPORT ? [facility] ? LAB Reports generated via [employer] interface contain original data; ? however they are lacking the format of the original report. ? Caution should be taken when reading/interpreting unformatted reports. ? Name: ? ROSIBEL BOWDEN ? Accession #: ? [id number] ? : ? 1970 (Age: 37) ??F ?Collect Date: ? 05/11/2008 ? Location: ? [facility] ? Receive Date: ? 05/12/2008 ? Provider: ?TRAY READY MD ? Copy to: ? Specimen/Source: ? Pap Test, Cervix/Endocervix, ThinPrep Imaging System ? with manual evaluation ? Last Menstrual Period: ? 03/19/09 ? Hormonal/Contraceptive Statu s: ? Tubal ligation ? Other: ? Additional clinical informat ion: End of menses currently ? HPVDX - HPV testing requeste d regardless of diagnosis on current ThinPrep Pap ?? test. ? SPECIMEN ADEQUACY ? Satisfactory for Eval uation ? - transformation zone compon ent present ? GENERAL CATEGORIZATION ? Negative for Intraepi thelial Lesion or Malignancy ? INTERPRETATION ? Shift in gisela presen t suggestive of bacterial vaginosis. ? Document reviewed and electr onically signed by: ? Olvin Stumler, CT( CP) ? Report Date: ??03/30/ 2009 11:32 ? End of Report ? Specimen Performing Organization Address City/State/ZIP Code Phon e Number [facility] [address] [place] [address] SERVICES [facility] [address] [place] [address] documented in this encounter Visit Diagnoses Not on filedocumented in this encounter
--- OUTSIDE RECORDS SUMMARY | 2021-08-10 01:41 | XMS_ITS | Encounter Summary ---
:[address] [facility] Address [address] [place] [address] Care Team Providers Name Role Phone María Nogueira PA-C Primary Care Provider Encounter Details Date Type Department Care Team Description 12/07/2015 Results Only [facility]- [facility]ISM Maribel Raoulmaría elena, DO [address] [facility] [address] [place], [place] [id number] (Wo rk) Social History Tobacco Use Types Packs/Day Years Used Date Never Assessed Sex Assigned at Date Recorded Not on file documented as of this encounter Plan of Treatment Not on filedocumented as of this encounter Procedures Procedure Name Priority Date/Time Associated Diagnosis [facility] PATHOLOGY Routine 12/07/2015 13:52 Resul ts for this EDT procedure are i n the results section. documented in this encounter Results SURGICAL PATHOLOGY (12/07/2015 13:52 EDT) Pathology Report: SURGICAL PATHOLOGY [facility]PORT [facility] Reports generated via electronic interface contain catracho ginal data; LABORATORY however they are lacking the format of the original re port. SERVICES Caution should be taken when reading/interpreting unfo rmatted reports. Name: ? ROSIBEL BOWDEN ? Accession #: ? [id number] ? : ? 1970 (Age: 45 ) ??F ? Collect Date: ? 12/07/2015 ? Location: ? [facility] ? Receive Date: ? 12/08/19 16 ? Provider: FABRICE PRADO DO Copy to: MARÍA NOGUEIRA PA-C ? 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 - ??Cholelithiasis. Document reviewed and electronically signed by: DEBORAH JENNINGS MD Report ??Date: 12/12/2015 13:19 By the signature above, the attending physician certif ies that he/she has personally conducted a gross and/or microscopic examin ation of the described specimens and rendered or confirmed the above diagnosi s. Specimen(s) Received: Gallbladder Clinical History: Biliary colic Gross Description: ? Received in formalin labelled with proper patient identification (initials S, L) and gallbladder is a n intact gallbladder (7.0 x 4.0 x up to 2.5 cm) with a segment of cystic duct (0.4 cm in length x 0.7 cm in diameter). ? The serosa is morales-pin k, smooth and glistening. The mucosa is bile-stained, velvety with prominent yello w streaking and the wall is 0.2 cm in thickness. The cystic duct lumen is patent. The cystic duct margin is inked blue. A single 1.0 cm in greatest dimension brown-black cholelith is pres ent. ? Two enrollment representative se ctions including the entire thickened region and the inked en face cystic duct margin are submitted in 1. Dr. Krishna 12/08/2015 4:05 PM End of Report Specimen Performing Organization Address City/State/ZIP Code Phon e Number [facility] [address] [place] [id number] SERVICES documented in this encounter Visit Diagnoses Not on filedocumented in this encounter Care Teams Solar Photovoltaic Systems Engineer Relationship Specialty Start Date End Date María Nogueira PA-C PCP - General 03/23/14 documented as of this encounter
--- OUTSIDE RECORDS SUMMARY | 2021-08-10 01:41 | XMS_ITS | Encounter Summary ---
:1970 Author Organization [facility] Address [address] [place] [address] Care Team Providers Name Role Phone Unknown, Provider Primary Care Provider Encounter Details Date Type Department Care Team Description 03/21/2014 Hospital Encounter [facility]- [place] Unknown, Provider, H[place] [address] [facility] [phone] [place] [address] (Work) [phone] Social History Tobacco Use Types Packs/Day Years Used Date Never Assessed Sex Assigned at Date Recorded Not on file documented as of this encounter Discharge Disposition Disposition Code Departure Means Destination Home or Self [place] documented in this encounter Plan of Treatment Not on filedocumented as of this encounter Visit Diagnoses Not on filedocumented in this encounter Care Teams Sand Control Worker Relationship Specialty Start Date End Date Unknown, Provider, PCP - General 12/05/11 03/22/14 documented as of this encounter
--- OUTSIDE RECORDS SUMMARY | 2021-08-10 01:41 | XMS_ITS | Encounter Summary ---
:1970 Author Organization [facility] Address [address] [place] [address] Care Team Providers Name Role Phone Maria Del Carmen Nogueira PA-C Primary Care Provider [phone] Encounter Details Date Type Department Care Team Description 11/03/2019 Lab Requisition [facility] Santana Thornton MD Encounter for other Pathology & [address] [facility] general examination Laboratory Medicine [facility] [address] [facility] [phone] [place] [address] (Work) [phone] Social History Tobacco Use Types Packs/Day Years Used Date Never Assessed Sex Assigned at Date Recorded Not on file documented as of this encounter Plan of Treatment Not on filedocumented as of this encounter Procedures Procedure Name Priority Date/Time Associated Diagnosis Comme nts SURGICAL PATHOLOGY Today 11/03/2019 10:30 Encounter for othe r Results for this EDT general examination procedur e are in the results section. documented in this encounter Results SURGICAL PATHOLOGY (11/03/2019 10:30 EDT) Final Diagnosis A. ENDOMETRIUM, BIOPSY: [facility] - Proliferative endometrium. [facility] Attestation There was significant [facility] Electr onically resident/fellow CENTER signed by Janice chery, involvement in the LABORATORY Dania Dumont MD diagnostic evaluation SERVICES on 10/19 at 1643 of this case. By the signature below, the attending physician certifies that they have personally conducted a gross and/or microscopic examination of the described specimens and rendered or confirmed the above diagnosis. Clinical History [facility] Gross Description A. [facility] Received in formalin zoraida d with proper patient identification (initials S, L) and EMB is a 2.5 x 2.0 x 0.5 cm aggregate of clotted blood, blood-tinged mucus and red-brown tissue fragments. Submitted entirely in A1-A2. [facility] RAKESH BAZAN 11/03/2019 19:44 SERVICES Resident/Fellow: Jefferson Patel MD [facility] Performing Lab [facility] Scanned Images [facility] Specimen Tissue - Entire endometrium (body struct ure) Performing Organization Address City/State/ZIP Code Phon e Number [facility] [address] [place] [address] SERVICES documented in this encounter Visit Diagnoses Diagnosis Encounter for other general examination documented in this encounter Care Teams Electric Container Tester Relationship Specialty Start Date End Date Maria Del Carmen Nogueira PA-C PCP - General 03/23/14 documented as of this encounter
--- OUTSIDE RECORDS SUMMARY | 2021-08-10 01:41 | XMS_ITS | Encounter Summary ---
:1970 Author Organization [facility] Address [address] [place] [address] Care Team Providers Name Role Phone Unavailable Primary Care Provider Unavailable Encounter Details Date Type Department Care Team Description 12/25/2004 Results Only [facility] - Jaycee Zarate FNP conversion [address] [place] [address] [place] [address] (Wo rk) Social History Tobacco Use Types Packs/Day Years Used Date Never Assessed Sex Assigned at Date Recorded Not on file documented as of this encounter Plan of Treatment Not on filedocumented as of this encounter Procedures Procedure Name Priority Date/Time Associated Diagnosis Comme nts CYTOPATHOLOGY Routine 12/25/2004 0:00 EST Results for this procedure are i n the results section . documented in this encounter Results CYTOPATHOLOGY (12/25/2004 0:00 EST) Pathology Report: CYTOPATHOLOGY REPORT [facility] Reports generated via electronic interface contain catracho ginal data; however they are lacking the format of the original re port. Caution should be taken when reading/interpreting unfo rmatted reports. Name: ? ROSIBEL BOWDEN ? Accession #: ? [id number] : ? 1970 (Age: 34) ??F ?Collect Date: ? 1109/2004 Location: ? [facility] ? Receive Date : ? 12/27/2004 Provider: ?JAYCEE CRONIN [place] JUDGE Copy to: ? Specimen/Source: ? ThinPrep Pap Test, Cervix/Endocervix, processed on [employer] ThinPrep Imaging System, with manual evaluation Last Menstrual Period: ? 12/25/04 Other: ? Additional clinical information: Biopsy of cervix and partial and cervical removal HPVA - HPV testing requested if ASC-US on the current ThinPrep Pap test. ? SPECIMEN ADEQUACY ? Satisfactory for Evaluation - transformation zone component absent GENERAL CATEGORIZATION ? Negative for Intraepithelial Lesion or Malignan cy INTERPRETATION ? Shift in gisela present suggestive of bacterial vaginosis. ? Document reviewed and electronically signed by: ? MALGORZATA Alcazar(ASCP) ? Report Date: ??01/01/2005 13:04 End of Report Specimen Performing Organization Address City/State/ZIP Code Phon e Number [facility] [address] [place] [address] SERVICES [facility] [address] [place] [address] documented in this encounter Visit Diagnoses Not on filedocumented in this encounter
--- OUTSIDE RECORDS SUMMARY | 2021-08-10 01:41 | XMS_ITS | Encounter Summary ---
:1970 Author Organization [facility] Address [address] [place] [address] Care Team Providers Name Role Phone Unavailable Primary Care Provider Unavailable Encounter Details Date Type Department Care Team Description 05/25/2004 Results Only [facility] - Melissa Prado, Chr istopher, conversion DO [address] [facility] [address] [facility] REINOSO [address] [place] [address] [place] [address] (Wo rk) Social History Tobacco Use Types Packs/Day Years Used Date Never Assessed Sex Assigned at Date Recorded Not on file documented as of this encounter Plan of Treatment Not on filedocumented as of this encounter Procedures Procedure Name Priority Date/Time Associated Diagnosis Comme [facility] SURGICAL PATHOLOGY Routine 05/25/2004 0:00 EDT Re sults for this procedure are i n the results section. documented in this encounter Results SURGICAL PATHOLOGY (05/25/2004 0:00 EDT) Pathology Report: SURGICAL PATHOLOGY REPORT [facility] Reports generated via electronic interface contain catracho ginal data; LAB however they are lacking the format of the original re port. Caution should be taken when reading/interpreting unfo rmatted reports. Name: ? ROSIBEL BOWDEN ? Accession #: ? [id number] ? : ? 1970 (Age: 33) ??F ? Collect Date: ? 05/25/2004 ? Location: ? [facility] ? Receive Date: ? 005 ? Provider: FABRICE PRADO DO Copy to: JAYCEE CRONIN YARD COORDINATOR ? Final Pathologic Diagnosis: ? Rectum, biopsy: - Hyperplastic polyp. Document reviewed and electronically signed by: MARINA DILL MD Report ??Date: 05/29/2004 17:09 By the signature above, the attending physician certif ies that he/she has personally conducted a gross and/or microscopic examin ation of the described specimens and rendered or confirmed the above diagnosi s. Specimen(s) Received: ? Rectal polyp Clinical History: ? Hematochezia; polyps Gross Description: ? Received in Hollande' s fixative labelled Fabrizio and rectal polyp is a single soft tissue fragment that measures 0.3 x 0.2 x 0.2 cm. ??The specimen is entirely submitted in one cassette. ??(Dr. Akhtar)/[facility] End of Report Specimen Performing Organization Address City/State/ZIP Code Phon e Number [facility] [address] [place] [address] SERVICES [facility] [address] [place] [address] documented in this encounter Visit Diagnoses Not on filedocumented in this encounter
--- OUTSIDE RECORDS SUMMARY | 2021-08-10 01:41 | XMS_ITS | Encounter Summary ---
:1970 Author Organization [facility] Address [address] [place] [address] Care Team Providers Name Role Phone Unavailable Primary Care Provider Unavailable Encounter Details Date Type Department Care Team Description 08/15/2009 Results Only [facility] Tray Suárez MD Laboratory Services - [facility] [address] [place], [place] [address] [place] [address] [phone] Social History Tobacco Use Types Packs/Day Years Used Date Never Assessed Sex Assigned at Date Recorded Not on file documented as of this encounter Plan of Treatment Not on filedocumented as of this encounter Procedures Procedure Name Priority Date/Time Associated Comments Diagnosis HPV DETECTION, HIGH Routine 08/15/2009 14:26 Resu lts for this RISK TYPES EDT procedure are i n the results section. CYTOPATHOLOGY Routine 08/15/2009 0:00 Results for this EDT procedure are i n the results section. documented in this encounter Results HUMAN PAPILLOMA VIRUS DNA TEST (08/15/2009 14:26 EDT) Specimen Description Cervix, ThinPrep [facility] vial Result Negative for HPV [facility] types 16, 18, 31, 33, 35, 39, 45, 51, 52, 56, 58, 59, and 68. Report Status Final [facility] 08/29/2009 Specimen Performing Organization Address City/State/ZIP Code Phon e Number [facility] [address] [place] [address] SERVICES [facility] [address] [place] [address] CYTOPATHOLOGY (08/15/2009 0:00 EDT) Pathology Report: CYTOPATHOLOGY REPORT ? T[facility] ALL EN ? LAB Reports generated via Sokrati interface contain original data; ? however they are lacking the format of the original report. ? Caution should be taken when reading/interpreting unformatted reports. ? Name: ? DENNISE, ROSIBEL ? Accession #: ? [id number] ? : ? 1970 (Age: 39) ??F ?Collect Date: ? 08/15/2009 ? Location: ? [facility] ? Receive Date: ? 08/17/2009 ? Provider: ?TRAY READY MD ? Copy to: ? Specimen/Source: ? Pap Test, Cervix/Endocervix, ThinPrep Imaging System ? with manual evaluation ? Last Menstrual Period: ? Hormonal/Contraceptive Statu s: ? Tubal ligation ? Other: ? HPVDX - HPV testing requeste d regardless of diagnosis on current ThinPrep Pap ?? test. ? SPECIMEN ADEQUACY ? Satisfactory for Eval uation ? - transformation zone compon ent present ? GENERAL CATEGORIZATION ? Negative for Intraepi thelial Lesion or Malignancy ? INTERPRETATION ? Shift in gisela presen t suggestive of bacterial vaginosis. ? Document reviewed and electr onically signed by: ? Ailin Nikolay, CT(ASCP ) ? Report Date: ??07/07/ 2010 16:16 ? End of Report ? Specimen Performing Organization Address City/State/ZIP Code Phon e Number [facility] [address] [place] [address] SERVICES [facility] [address] [place] [address] documented in this encounter Visit Diagnoses Not on filedocumented in this encounter
--- OUTSIDE RECORDS SUMMARY | 2021-08-10 01:41 | XMS_ITS | Encounter Summary ---
:1970 Author Organization [facility] Address [address] [place] [address] Care Team Providers Name Role Phone Unknown, Provider Primary Care Provider Encounter Details Date Type Department Care Team Description 03/21/2014 Results Only [facility] Bia Hooper MD [phone] [place] [address] Social History Tobacco Use Types Packs/Day Years Used Date Never Assessed Sex Assigned at Date Recorded Not on file documented as of this encounter Plan of Treatment Not on filedocumented as of this encounter Procedures Procedure Name Priority Date/Time Associated Diagnosis Comme nts SURGICAL PATHOLOGY Routine 03/21/2014 8:22 EST Re sults for this procedure are i n the results section. PAP TEST- RESULT Routine 03/21/2014 0:00 EST Resu lts for this ONLY procedure are i n the results section. documented in this encounter Results SURGICAL PATHOLOGY (03/21/2014 8:22 EST) Pathology SURGICAL PATHOLOGY REPORT [facility] Report: Reports generated via electronic interface conta in original data; CENTER LABORATORY however they are lacking the format of the original re port. SERVICES Caution should be taken when reading/interpreting unfo rmatted reports. Name: ? ROSIBEL BOWDEN ? Accession #: ? [id number] ? : ? 1970 (Age: 43) ??F ? Collect Date: ? 03/21/2014 ? Location: ? [facility] ? Receive Date: ? 015 ? Provider: BIA HOOPER MD Copy to: MARÍA GILLESPIE ? Final Pathologic Diagnosis: ENDOMETRIUM, BIOPSY: - ??Proliferative endometrium with focal simple hyperp lasia. See comment. - ??Tubal metaplasia. - ??Fragments of benign endocervical tissue. - ??No cytologic atypia identified. Comment: The specimen primarily consi sts of fragmented endometrium with one intact piece of glands and stroma showing a focal area of inc reased gland to stroma ratio. Deeper sections have been examined. Representati ve sections of this case were reviewed at the intradepartmental consultation confere nce. ?? Document reviewed and electronically signed by: KARISHMA PORTILLO MD Report ??Date: 03/24/2014 15:40 By the signature above, the attending physician certif ies that he/she has personally conducted a gross and/or microscopic examin ation of the described specimens and rendered or confirmed the above diagnosi s. Specimen(s) Received: Endometrial bx Clinical History: Menorrhagia Gross Description: ? Received in formalin labelled with proper patient identification (initials S, L) and endometrial biopsy is an aggregate of bloo d-tinged mucus and red-brown tissue fragments (2.0 x 0.3 x 0.3 cm). Submitted in toto in block 1. Lori Melvin 03/22/2014 End of Report Specimen Performing Organization Address City/State/ZIP Code Phon e Number [facility] [address] [place] [address] SERVICES PAP TEST- RESULT ONLY (03/21/2014 0:00 EST) Pathology Report: CYTOPATHOLOGY REPORT [facility] Reports generated via electronic interface contain catracho ginal data; SERVICES however they are lacking the format of the original re port. Caution should be taken when reading/interpreting unfo rmatted reports. Name: ? ROSIBEL BOWDEN ? Accession #: ? [id number] ? : ? 1970 (Age: 43) ??F ?Collect Da te: ? 03/21/2014 ? Location: ? [facility] ? Receive Date: ? 015 ? Provider: BIA HOOPER MD Copy to: MARÍA GILLESPIE ? Final Report SPECIMEN ADEQUACY ? Satisfactory for Evaluation - transformation zone component present - scant squamous epithelial component secondary to exc essive mucus GENERAL CATEGORIZATION ? Negative for Intraepithelial Lesion or Malignan cy ?? Menstrual/ Status: ??Menorrhagia Other: Additional clinical i nformation: 08/2009 NEG/NEG PAP , HX OF 1 ABN PAP NL F/U Specimen/Source: ??Pap Test, Cervix/Endocervix, ThinPr ep Imaging System with manual evaluation Document reviewed and electronically signed by: ? MALGORZATA Courtney(ASCP) ? Report ??Date: 04/04/2014 13:01 HPV with Pap Test ? Date Ordered: ? 04/04/2014 ? Status: ?? Signed Out ?Date Complete: ? 04/06/2014 ? By: ??S ystem Interface ? Date Reported: ? 04/06/2014 ? Interpretation RESULT: Negative for HPV. No E6 or E7 mRNA is detected from HPV types 16,18,31,3 3,35, 39,45,51,52,56,58,59,66, and 68 by special education director media Project [employer]. Comments Document reviewed and electronically signed by: ? System Interface ? Report date: 04/06/2014 By the signature above, the attending physician certif ies that he/she has personally conducted a gross and/or microscopic examin ation of the described specimens and rendered or confirmed the above diagnosi s. End of Report Specimen Performing Organization Address City/State/[facility] Code Phon e Number [facility] [address] [place] [address] SERVICES documented in this encounter Visit Diagnoses Not on filedocumented in this encounter Care Teams Associate Director Finance Relationship Specialty Start Date End Date Unknown, Provider, PCP - General 12/05/11 03/22/14 documented as of this encounter
--- OUTSIDE RECORDS SUMMARY | 2021-08-10 01:41 | XMS_ITS | Encounter Summary ---
:1970 Author Organization [facility] Address [address] [place] [address] Care Team Providers Name Role Phone Maria Del Carmen Nogueira PA-C Primary Care Provider [phone] Encounter Details Date Type Department Care Team Description 10/12/2019 Lab Requisition [facility] Starla Calvert En counter for other Pathology & A, RES COUNSELOR general examination Laboratory Medicine [address] [place], [place] [address] [facility] [address] [place] [address] Social History Tobacco Use Types Packs/Day Years Used Date Never Assessed Sex Assigned at Date Recorded Not on file documented as of this encounter Plan of Treatment Not on filedocumented as of this encounter Procedures Procedure Name Priority Date/Time Associated Comments Diagnosis PAP TEST Today 10/12/2019 11:15 Encounter for other Resu lts for this EDT general examination procedur e are in the results section. CHLAMYDIA/N. Today 10/12/2019 11:15 Results for this GONORRHOEAE AMPLIFIED EDT proced ure are in RNA, THINPREP the results section. HUMAN PAPILLOMAVIRUS Today 10/12/2019 11:15 Encounter for ot her Results for this (HPV) DETECTION-HIGH EDT general examination procedure are in RISK TYPES the results section. documented in this encounter Results HUMAN PAPILLOMAVIRUS (HPV) DETECTION-HIGH RISK TYPES (10/12/2019 11:15 EDT) Human Papillomavirus NegativeComment: No Negative [facility] (HPV) Detection-High E6 or E7 mRNA is CENTER LABORATOR Y Types detected from HPV SERVICES types 16,18,31,33,35,39,45 ,51,52,56,58,59,66, and 68 by warehouse delivery driver mediated amplification. Specimen Pap Test - Cervix and/or Endocervix Performing Organization Address City/[facility]/ZIP Code Phon e Number [facility] [address] [place] [address] SERVICES PAP TEST (10/12/2019 11:15 EDT) Specimens A. Cervix and/or [facility] Endocervix , ThinPrep CENTER Imaging System with LABORATORY Manual Evaluation SERVICES Specimen Adequacy Satisfactory for [facility] Evaluation - CENTER transformation zone LABORATORY component present SERVICES General Negative for [facility] intraepithelial [place] lesion or malignancy LABORATORY SERVICES Attestation . [facility] Electronically CENTER signed by SHARRI Salas CT(ASCP) on SERVICES 10/26/2019 at 151 2 HPV The result for the Human Pap illomavirus (HPV) Detection-High Risk Types is Negative. No E6 or E7 mRNA is detected from HPV types 16,18,31,33,35,39,45,51,52,56,58,59,66, and 68 by warehouse delivery driver mediated [facility] amplification.Testing was pe rformed on specimen [id number] and was resulted on 10/26/2019 1508 EDT by DONNIE, LAB INSTRUMENT RESULTS IN [facility] SERVICES Scanned Images [facility] SERVICES Specimen Pap Test - Cervix and/or Endocervix Performing Organization Address [facility] Phon e Number [facility] [address] [place] [address] SERVICES CHLAMYDIA/N. GONORRHOEAE AMPLIFIED RNA, THINPREP (10/12/2019 11:15 EDT) Pathologist Sig nature Gonococcus Result Negative Negative [facility] SERVICES Chlamydia Result Negative Negative [facility] SERVICES Specimen Pap Test - Cervix and/or Endocervix Performing Organization Address City/[facility]/ZIP Code Phon e Number [facility] [address] [place] [address] SERVICES documented in this encounter Visit Diagnoses Diagnosis Encounter for other general examination documented in this encounter Care Teams Director Of Institutional Research Relationship Specialty Start Date End Date Maria Del Carmen Nogueira PA-C PCP - General 03/23/14 documented as of this encounter
--- OUTSIDE RECORDS SUMMARY | 2021-08-10 01:41 | XMS_ITS | Encounter Summary ---
:1970 Author Organization [facility] Address [address] [place] [address] Care Team Providers Name Role Phone Maria Del Carmen Nogueira PA-C Primary Care Provider [phone] Encounter Details Date Type Department Care Team Description 03/01/2019 Lab Requisition [facility] Unknown, Provider, Pathology & Laboratory [facility] [address] [facility] [place] [address] Social History Tobacco Use Types Packs/Day Years Used Date Never Assessed Sex Assigned at Date Recorded Not on file documented as of this encounter Plan of Treatment Not on filedocumented as of this encounter Procedures Procedure Name Priority Date/Time Associated Diagnosis Comme nts PTH INTACT Routine 03/01/2019 7:03 EST Results for this procedure are i n the results section . documented in this encounter Results PTH INTACT (03/01/2019 7:03 EST) Pathologist Sig nature Intact PTH 45 19 - 88 pg/mL [facility] SERVICES Specimen Blood - Venous blood (substance) Performing Organization Address City/State/ZIP Code Phon e Number [facility] [address] [place] [address] SERVICES documented in this encounter Visit Diagnoses Not on filedocumented in this encounter Care Teams Clockmaker Apprentice Relationship Specialty Start Date End Date Maria Del Carmen Nogueira PA-C PCP - General 03/23/14 documented as of this encounter
--- OUTSIDE RECORDS SUMMARY | 2021-08-10 01:41 | XMS_ITS | Encounter Summary ---
:1970 Author Organization [facility] Address [address] [place] [address] Care Team Providers Name Role Phone Unavailable Primary Care Provider Unavailable Encounter Details Date Type Department Care Team Description 12/03/2011 Results Only [facility] Ghassan Prado , Laboratory Services - [address] AJ REINOSO [address] [place] [address] [place], [place] [address] [phone] Social History Tobacco Use Types Packs/Day Years Used Date Never Assessed Sex Assigned at Date Recorded Not on file documented as of this encounter Plan of Treatment Not on filedocumented as of this encounter Procedures Procedure Name Priority Date/Time Associated Diagnosis Comme [facility] SURGICAL PATHOLOGY Routine 12/03/2011 0:00 EDT Re sults for this procedure are i n the results section. documented in this encounter Results SURGICAL PATHOLOGY (12/03/2011 0:00 EDT) Pathology Report: SURGICAL PATHOLOGY REPORT URIEL Chiu STONEJUAN Reports generated via electronic interface contain catracho ginal data; LAB however they are lacking the format of the original re port. Caution should be taken when reading/interpreting unfo rmatted reports. Name: ? ROSIBEL BOWDEN ? Accession #: ? [id number] ? : ? 1970 (Age: 41) ??F ? Collect Date: ? 12/03/2011 ? Location: ? [facility] ? Receive Date: ? 012 ? Provider: GHASSAN PRADO DO Copy to: GILLIAN CHAVEZ MD ? Final Pathologic Diagnosis: A. ?Stomach, antrum, biopsy: 1. ?Antral-oxyntic mucosa with mild react leena changes. 2. ? No characteristic f eatures of active gastritis, goblet cells, intestinal metaplasia, Helicobacter pylori-like microorganisms, e rosion/ulcer, or dysplasia. B. ?Esophagus, distal, biopsy: 1. ?Mildly reactive squamous mucosa. 2. ? No characteristic features of active esophagi tis, intraepithelial eosinophils or neutrophils, goblet cells, intestinal metaplasia, erosion/ulcer, or dysplasia. Document reviewed and electronically signed by: Grabiel Rosenbaum MD Report ??Date: 12/05/2011 14:27 By the signature above, the attending physician certif ies that he/she has personally conducted a gross and/or microscopic examin ation of the described specimens and rendered or confirmed the above diagnosi s. Specimen(s) Received: A. ?Gastric antrum B. ? Distal esophagus Clinical History: ? Hematemesis, grossly normal EGD Gross Description: ? Received in formalin labelled Fabrizio, Rosibel and gastric antrum are two light morales biopsies measu ring 0.4 x 0.3 x 0.2 cm and 0.6 x 0.3 x 0.1 cm. ??The specimens are submitted intact as (A). Received in formalin zoraida d Fabrizio, Rosibel and distal esophagus are two light morales biopsies measuring 0.2 x 0.2 x 0.1 cm and 0.4 x 0.3 x 0.1 cm. ??The specimens are submitted intact as (B). ??(Denice balbuena)/[facility] End of Report Specimen Performing Organization Address City/State/ZIP Code Phon e Number [facility] [address] [place] [address] SERVICES [facility] [address] [place] [address] documented in this encounter Visit Diagnoses Not on filedocumented in this encounter
--- OUTSIDE RECORDS SUMMARY | 2021-08-10 01:41 | XMS_ITS | Encounter Summary ---
:1970 Author Organization [facility] Address [address] [place] [address] Care Team Providers Name Role Phone Maria Del Carmen Nogueira PA-C Primary Care Provider [phone] Encounter Details Date Type Department Care Team Description 12/14/2015 Hospital Encounter [facility]- Syeda Unknown, Provider, [facility] [address] [facility] [phone] [place] [address] (Work) [phone] Social History Tobacco Use Types Packs/Day Years Used Date Never Assessed Sex Assigned at Date Recorded Not on file documented as of this encounter Discharge Diagnoses Diagnosis Z01.89 Encounter for other specified spe cial examinations-Z01.89[ICD-10-CM] documented in this encounter Discharge Disposition Disposition Code Departure Means Destination Home or Self Half[place] documented in this encounter Plan of Treatment Not on filedocumented as of this encounter Visit Diagnoses Not on filedocumented in this encounter Care Teams Papeterie Table Assembler Relationship Specialty Start Date End Date Maria Del Carmen Nogueira PA-C PCP - General 03/23/14 documented as of this encounter
--- OUTSIDE RECORDS SUMMARY | 2021-08-10 01:41 | XMS_ITS | Encounter Summary ---
:1970 Author Organization [facility] Address [address] [place] [address] Care Team Providers Name Role Phone Unavailable Primary Care Provider Unavailable Encounter Details Date Type Department Care Team Description 10/25/2003 Results Only [facility] - Jaycee Zarate FNP conversion [address] [place] [address] [place] [address] (Wo rk) Social History Tobacco Use Types Packs/Day Years Used Date Never Assessed Sex Assigned at Date Recorded Not on file documented as of this encounter Plan of Treatment Not on filedocumented as of this encounter Procedures Procedure Name Priority Date/Time Associated Diagnosis Comme nts CYTOPATHOLOGY Routine 10/25/2003 0:00 EDT Results for this procedure are i n the results section . documented in this encounter Results CYTOPATHOLOGY (10/25/2003 0:00 EDT) Pathology Report: CYTOPATHOLOGY REPORT [facility] Reports generated via electronic interface contain catracho ginal data; however they are lacking the format of the original re port. Caution should be taken when reading/interpreting unfo rmatted reports. Name: ? ROSIBEL BOWDEN ? Accession #: ? [id number] : ? 1970 (Age: 33) ??F ?Collect Date: ? 08/2003 Location: ? [facility] ? Receive Date : ? 10/27/2003 Provider: ?JAYCEE CRONIN METAL MACHINIST Copy to: ? Specimen/Source: ?ThinPrep Pap Test, Cervix/ Endocervix Last Menstrual Period: ? 10/04/03 Previous Gynecologic Pathology: ? Yes Treatment History: ? Cone biopsy Cryotherapy: of cervix Other: ? HPVA - HPV testing requested if ASC-US on the current ThinPrep Pap test. ? SPECIMEN ADEQUACY ? Satisfactory for Evaluation - transformation zone component present GENERAL CATEGORIZATION ? Negative for Intraepithelial Lesion or Malignan cy ? Document reviewed and electronically signed by: ? MALGORZATA Velarde(ASCP) ? Report Date: ??11/01/2003 08:48 End of Report Specimen Performing Organization Address City/State/ZIP Code Phon e Number [facility] [address] [place] [address] SERVICES [facility] [address] [place] [address] documented in this encounter Visit Diagnoses Not on filedocumented in this encounter
--- OUTSIDE RECORDS SUMMARY | 2021-08-10 01:41 | XMS_ITS | Encounter Summary ---
:1970 Author Organization [facility] Address [address] [place] [address] Care Team Providers Name Role Phone Maria Del Carmen Nogueira PA-C Primary Care Provider [phone] Encounter Details Date Type Department Care Team Description 03/19/2021 Lab Requisition [facility] Outr Resulting Lab, Pathology & Laboratory Provider [facility] [address] [place], [place] [address] Social History Tobacco Use Types Packs/Day Years Used Date Never Assessed Sex Assigned at Date Recorded Not on file documented as of this encounter Plan of Treatment Not on filedocumented as of this encounter Procedures Procedure Name Priority Date/Time Associated Diagnosis Comme nts COVID-19 TEST [facility] Today 03/19/2021 14:00 LAB PCR EST COVID-19 TESTING Routine 03/19/2021 14:00 Results for this EST procedure are i n the results section. documented in this encounter Results COVID-19 TEST [facility] LAB PCR (03/19/2021 14:00 EST) Specimen Swab Performing Organization Address City/State/ZIP Code Phon e Number [facility] [address] [place] [address] SERVICES COVID-19 TESTING (03/19/2021 14:00 EST) COVID-19 rt-PCR Negative Negative [facility] Result Comment: [facility]ENTER [facility] This test has not been FDA c leared or approved. This test has been authorized by FDA under an EUA for use by authorized laboratories. This test has been authorized only for detection of nucleic acid fro SERVICES m 2018-, not for any oth er viruses or pathogens. This test is only authorized for the duration of the declaration that circumstances exist justifying the authorization of emergency use of in vitro d iagnostic tests for detectio n and/or diagnosis of 2019-nCoV under section 564(b)(1) of Act, 21 U.S.C ?? 360bbb-3(b) (1), unless the authorization is terminated or revoked sooner. Negative results do not prec lude 2019-nCoV infection and should not be used as the sole basis for treatment or other patient management decisions. Negative results must be combined with clinical observa tions, patient history, and epidemiological informatio n. Testing was performed using the elier SARS-CoV-2 assay ([employer] on the [address] [address] System Performing Lab [address] [facility] Lab [facility] SERVICES Specimen Swab Performing Organization Address City/State/ZIP Code Phon e Number [facility] [address] [place] [address] SERVICES documented in this encounter Visit Diagnoses Not on filedocumented in this encounter Care Teams Director Software Development Relationship Specialty Start Date End Date Maria Del Carmen Nogueira PA-C PCP - General 03/23/14 documented as of this encounter
--- NOTE | 2021-08-10 01:45 | RT.EKG_ITS ---
APPROVED REPORT Exam: Resting ECG Reason for Exam: dyspnea Patient Location: E HR:108 bpm ECG Measurements Heart Rate 108 AXIS NJ 177 P 38 QRSd 98 QRS 12 QT 348 T 44 QTc 467 Conclusion Sinus tachycardia...rate> 99 Probable left atrial enlargement...P >50mS, <-0.10mV V1 singificant artifact, no obvious stemi
--- NOTE | 2021-08-10 01:45 | DI.RAD_ITS ---
Exam(s) XR PORTABLE CHEST AP EXAM: XR PORTABLE CHEST AP CLINICAL HISTORY: dyspnea TECHNIQUE: 2D digital imaging was performed of the chest. One image was obtained. An AP view was ob tained. COMPARISON: CR CHEST 2 VIEWS PA,LAT from 06/19/2009 CR XR PORTABLE CHEST AP from 04/27/2018 CR,XR XR PORTABLE CHEST AP from 01/14/2021 FINDINGS: MEDIASTINUM: Normal. HEART: Upper limits of normal in size. PULMONARY VASCULATURE: There is again seen prominence of the central pulmonary vasculature. LUNGS: Mild prominence of the interstitium is seen bilaterally. No focal consolidating infiltrates a re seen. PLEURAL SPACE: No pleural effusion or pneumothorax. BONE:Within normal limits for the patient's age. OTHER FINDINGS:Normal. IMPRESSION: Prominence of the pulmonary vasculature and interstitium which may represent fluid overload. Persist ent prominence of the pulmonary vessels which may reflect some degree of pulmonary artery hypertensio n. Please correlate clinically. DATA REPOSITORY: RADIATION DOSE DELIVERED:
--- NOTE | 2021-08-10 02:00 | ED.GENADUL_ITS ---
Discharge Plan Disposition Patient Disposition: [facility] INPATIENT Condition: Serious Discharge Details Clinical Impression: COPD with acute exacerbation, Hypoxia Primary Care Provider: Maria Del Carmen Nogueira ED Provider: Jefferson Calvert Home Meds and New Rx's Prescriptions: No Action rosuvastatin 40 mg tablet 40 mg PO HS desvenlafaxine succinate [Pristiq] 100 MG tablet extended release 24 hr 100 mg PO DAILY albuterol sulfate 8.5 GM HFA aerosol inhaler 1 - 2 puff Inhalation Q4H PRN gabapentin 300 MG capsule 900 mg PO HS atenolol 50 MG tablet 50 mg PO DAILY aripiprazole [Abilify] 10 MG tablet 10 mg PO DAILY nystatin 1 EACH powder 1 ea PO TID PRN fenofibrate 160 MG tablet 160 mg PO DAILY pantoprazole [Protonix] [address] for susp in packet 40 mg PO DAILY lisinopril 20 MG tablet 40 mg PO DAILY oxycodone-acetaminophen 10-325 mg Tablet 1 tab PO Q4H PRN (Reason: Pain) Narcan 4 mg/actuation [place],Non-Aerosol 4 mg Intranasal PRN PRN (Reason: excessive sedation) methylphenidate HCl [Ritalin] 20 mg Tablet 20 mg PO BID furosemide 20 mg tablet 20 mg PO DAILY PRN (Reason: Edema) insulin aspart U-100 [Novolog Flexpen U-100 Insulin] 100 unit/mL (3 mL) insulin pen 0 sliding scale dose SUBCUT AC Rx Instructions: MAXIMUM OF 50 UNITS PER 24 HOURS bupropion HCl 200 mg tablet sustained-release 12 hr 200 mg PO QAM Label Comments: TAKE 1 TABLET BY MOUTH ONCE DAILY IN THE MORNING Januvia 100 mg tablet 100 mg PO DAILY diltiazem HCl 120 mg capsule,extended release 24 hr 120 mg PO DAILY Levemir FlexTouch U-100 Insuln 100 unit/mL (3 mL) insulin pen 44 unit SUBCUT DAILY Advair HFA 230-21 mcg/actuation HFA aerosol inhaler 1 puff INHALATION BID prednisone 20 mg tablet 40 mg PO DAILY Qty: 10 0RF cefpodoxime 200 mg tablet 200 mg PO BID Qty: 14 0RF Rx Instructions: must administer with a meal/food Medical Decision Making 51 yo female with hx of copd on home o2, dm, helen but doesn't wear cpap at night, htn, per chart review heart failure with normal EF on echo report in 2019, obesity, gerd, who comes in with complaints of worsening shortness of breath and cough for 3 days, denies any chest pain. She states her home oxygen meter was reading in the 70's despite her home o2 so came here. She is visibly short of breath, tachypneic and only able to speak in 2-3 word sentences. She has intermittent wet sounding cough. She has apical wheezing on exam and diminished breath sounds at the bases bilaterally, no murmurs. She has no pericardial effusion on bedside u/s and no b lines on lung u/s. Suspect copd exacerbation vs pneumonia given the cough and shortness of breath. Will treat with duoneb, solumedrol and levofloxacin given the likely copd exacerbationand has amoxicillin allergy. Will also obtain ekg, troponin, cbc and cmp. Will also place her on bipap for her work of breathing, her saturations on a neb at 15L was90%. I asked the patient if she would want to be intubated if she got worse and she is caox4 and has clinical decision making capacity and at this time states she would not want to be intubated. labs show mag of 1.5, initial venous pH before bipap showed pco2 71 improved to 64. She is feeling better though still only able to speak in 3-4 word sentences. On my read of the xray shows some interstitial edema, 40mg iv lasix ordered. Discussed with hospitalist who accepts for admission to ICU for continued care and monitoring Differential Diagnosis Differential Diagnosis: copd, chf, nstemi, pneumonia Medical Records Medical records reviewed: Yes I reviewed the patient's medical records. Lab Data Lab results reviewed: Yes I reviewed the patient's lab results. ECG Data Attestation: I personally reviewed and interpreted this ECG (s) as follows: Prior ECG tracings: available for review Interpretation: significant motion artifact but sinus tachycardia rate of 108, no stemi HPI General Mode of arrival: wheelchair . Date/Time Provider Initiated Documentation: 08/10/21 01:45 . Limitations to Documentation: no limitations . Information obtained by: patient . History of Present Illness 51 year old F presents to the emergency department with the chief complaint of shortness of breath, described as severe, Patient started experiencing this day(s) (3) and it has been constant. Rest improves symptom(s), Movement worsens symptoms . Patient notes cough; denies chest pain and fever/chills. Patient did receive the following treatments prior to arrival, none Related Data Home Medications Medication Instructions Recorded Confirmed albuterol sulfate 90 mcg/actuation 1 - 2 puff inhalation Q4H PRN 03/21/14 01/14/21 aerosol inhaler desvenlafaxine succinate 100 mg 100 mg PO DAILY 03/21/14 01/14/21 tablet,extended release 24 hr (Pristiq) aripiprazole 10 mg tablet (Abilify) 10 mg PO DAILY 04/22/17 01/14/21 atenolol 50 mg tablet 50 mg PO DAILY 04/22/17 01/14/21 fenofibrate 160 mg tablet 160 mg PO DAILY 04/22/17 01/15/21 gabapentin 300 mg capsule 900 mg PO HS 04/22/17 01/15/21 nystatin 500 million unit oral 1 ea PO TID PRN 04/22/17 01/15/21 powder pantoprazole 40 mg granules 40 mg PO DAILY 04/22/17 01/14/21 delayed-release for susp in packet (Protonix) lisinopril 20 mg tablet 40 mg PO DAILY 04/23/17 01/14/21 naloxone 4 mg/actuation nasal 4 mg intranasal PRN PRN excessive 04/29/18 01/14/21 spray (Narcan) sedation oxycodone-acetaminophen 10 mg-325 1 tab PO Q4H PRN Pain 04/29/18 01/14/21 mg tablet methylphenidate HCl 20 mg tablet 20 mg PO BID 11/15/18 01/14/21 (Ritalin) rosuvastatin 40 mg tablet 40 mg PO HS 04/12/19 01/14/21 furosemide 20 mg tablet 20 mg PO DAILY PRN Edema 01/14/21 01/14/21 bupropion HCl 200 mg tablet,12 hr 200 mg PO QAM 01/15/21 01/15/21 sustained-release diltiazem HCl 120 mg capsule,24 120 mg PO DAILY 01/15/21 01/15/21 hr,extended release fluticasone propionate 230 1 puff inhalation BID 01/15/21 01/15/21 mcg-salmeterol 21 mcg/actuation HFA inhaler (Advair HFA) insulin aspart U-100 100 unit/mL 0 sliding scale dose subcut AC 01/15/21 01/15/21 (3 mL) subcutaneous pen (Novolog Flexpen U-100 Insulin aspart) insulin detemir U-100 100 unit/mL 44 unit subcut DAILY 01/15/21 01/15/21 (3 mL) subcutaneous pen (Levemir FlexTouch U-100 Insulin) sitagliptin 100 mg tablet (Januvia) 100 mg PO DAILY 01/15/21 01/15/21 cefpodoxime 200 mg tablet 200 mg PO BID #14 tabs 01/16/21 prednisone 20 mg tablet 40 mg PO DAILY #10 tabs 01/16/21 Previous Rx's Medication Instructions Recorded cefpodoxime 200 mg tablet 200 mg PO BID #14 tabs 01/16/21 prednisone 20 mg tablet 40 mg PO DAILY #10 tabs 01/16/21 Allergies Allergy/AdvReac Type Severity Reaction Status Date / Time amoxicillin Allergy Skin Rash Unverified 10/29/19 10:29 Sulfa (Sulfonamide Allergy Unverified 10/29/19 10:29 Antibiotics) Antiobiotics AdvReac Intermediate Rash,vomitt Uncoded 10/29/19 10:29 ing General HEATHER: 2 Review of Systems All systems reviewed & are unremarkable except as noted in HPI and below Constitutional Constitutional: Denies chills and Denies fever(s) ENT Ears, Nose, Mouth, and Throat: Denies change in voice Cardiovascular Cardiovascular: Denies chest pain Gastrointestinal Gastrointestinal: Denies abdominal pain, Denies nausea and Denies vomiting Integumentary/Breasts Skin/Breast: Denies rash PFSH All Active Problems (Updated 08/10/21 @ 03:19 by Jefferson Calvert MD) Hypoxia (Acute) Contraceptive management (Acute) GERD (gastroesophageal reflux disease) (Chronic) Abnormal uterine bleeding (Acute) Mood disorder (Acute) Hypercalcemia (Acute) Hypomagnesemia (Acute) HTN (hypertension) (Chronic) Discharge planning issues (Acute) HELEN (obstructive sleep apnea) (Chronic) DVT prophylaxis (Acute) Acute exacerbation of CHF (congestive heart failure) (Acute) Tobacco abuse (Acute) Diabetes mellitus (Chronic) COPD with acute exacerbation (Acute) Primary osteoarthritis of both knees (Chronic 05/01/15) Active Problem List Contraceptive management (Acute) GERD (gastroesophageal reflux disease) (Chronic) Abnormal uterine bleeding (Acute) Mood disorder (Acute) Hypercalcemia (Acute) Hypomagnesemia (Acute) Discharge planning issues (Acute) HELEN (obstructive sleep apnea) (Chronic) DVT prophylaxis (Acute) Acute exacerbation of CHF (congestive heart failure) (Acute) Tobacco abuse (Acute) Diabetes mellitus (Chronic) COPD with acute exacerbation (Acute) Primary osteoarthritis of both knees (Chronic 05/01/15) Medical History Chronic atrophic candidosis Depression with anxiety Diabetes mellitus type 2 in obese Hyperlipidemia Morbid obesity HELEN (obstructive sleep apnea) Smoker Surgical History Bilat partial saplinectomy Cholecystectomy (12/07/15) LAPAROSCOPIC WITH INTRAOPERATIVE CHOLANGIOGRAM/[facility] Ligation of fallopian tube Open Carpal Tunnel release Repair of umbilical hernia Tonsillectomy and adenoidectomy Family History Other COPD (chronic obstructive pulmonary disease) Cancer Social History Smoking/Tobacco Use Status: Current every day Tobacco Type: cigarettes Quit status: considering quitting Second Hand Exposure: Yes Smoking risk assessment performed?: Yes Alcohol Intake: never Drug use: Never Substance use type: does not use, opiates and painkillers Current gender identity: female Do you feel safe at home: Yes Do you feel safe in your relationship?: Yes Additional Social history: Lives with her male partner, who also smokes. Disabled. History History 5 Para 2 Hx # Term Pregnancies Multiple births Hx # Pregnancies Ectopic pregnancies AB induced Hx Number of Living Children AB spontaneous Exam Const General: ill appearing Orientation: alert HENMT Head: normal to inspection Ears: external ears normal General nose exam: external nose normal Mouth: moist mucous membranes Eyes General: appearance normal, both eyes and all related structures Neck Neck: normal visual inspection Resp Effort & Inspection: audible wheezes and cough Cardio Rate: regular rate Skin General skin exam: no rashes or lesions noted Neuro General: patient alert and patient oriented x3 Extrem General: normal to inspection Psych Mental Status: mental status grossly normal Course Lab/Test Results Lab/Test Results: 08/10/21 01:56 Blood Blood Culture - Pending 08/10/21 01:56 Blood Blood Culture - Pending
[2021-08-10 02:05] LABS: BE (Venous) 5 mmol/L (-2-3); HCO3 (Venous) 32 mmol/L (23-28); O2 Sat (Venous) 82 %; TCO2 (Venous) 29 mmol/L (24-29); pH (Venous) 7.26 (7.31-7.41); pO2 (Venous) 44 mmHg
[2021-08-10 02:07] LABS: Abs Immature Grans 0.04 10^3/uL (0.0-0.06); Absolute Basophil Count 0.03 10^3/uL (0.0-0.2); Absolute Lymphocyte Count 1.06 10^3/uL (1.2-3.4); Absolute Monocyte Count 1.02 10^3/uL (0.1-0.8); Absolute Neutrophil Count 6.67 10^3/uL (1.2-6.7); Basophils % 0.3; HCT 52.1 % (36.0-46.0); HGB 16.7 g/dL (11.2-15.7); Immature Grans % 0.5; MCH 29.6 pg (27.0-33.0); MCHC 32.1 % (32.0-36.0); MCV 92 fL (80-95); MPV 9.3 fL (8.0-11.0); Monocytes % 11.6; Neutrophils % 75.6; Platelet Count 175 10^3/uL (130-400); RBC 5.65 10^6/uL (3.93-5.22); RDW 14.7 % (11.7-14.6); RDW-SD 50.3 fL; WBC 8.82 10^3/uL (4.4-10.8)
[2021-08-10 02:08] LABS: pCO2 (Venous) 71 mmHg (41-51)
[2021-08-10] MEDS: methylPREDNISolone SUCC 125 MG VIAL IVP (02:14)
[2021-08-10] MEDS: LORazepam 2 MG/ML VIAL 0.5 MG IVP (02:15)
[2021-08-10 02:23] LABS: ALT 13 U/L (14-59); AST 18 U/L (15-37); Albumin 3.8 g/dL (3.4-5.0); Alkaline Phosphatase 77 U/L (46-116); Anion Gap 6.4 mmol/L (3-11); BUN 10 mg/dL (7-18); Bilirubin, Total 0.5 mg/dL (0.2-1.0); CO2 31.6 mmol/L (21.0-32.0); CREATININE 0.6 mg/dL (0.55-1.02); Calcium 9.7 mg/dL (8.5-10.1); Chloride 99 mmol/L (98-107); Glucose 214 mg/dL (74-106); Magnesium 1.5 mg/dL (1.8-2.4); NT-proBNP 403 pg/mL (<300); Sodium 137 mmol/L (136-145); Total Protein 8.2 g/dL (6.4-8.2); Troponin I < 50 ng/L (<or=60)
[2021-08-10] MEDS: Albuterol/Ipratropium 3 ML UPD VIAL UPD ×4 (02:40→19:49)
[2021-08-10] MEDS: levoFLOXacin 750 MG/150 ML BAG 100 MG IVPB (02:59)
[2021-08-10 03:01] LABS: BE (Venous) 5 mmol/L (-2-3); HCO3 (Venous) 32 mmol/L (23-28); O2 Sat (Venous) 94 %; TCO2 (Venous) 28 mmol/L (24-29); pO2 (Venous) 65 mmHg
[2021-08-10 03:04] LABS: pCO2 (Venous) 64 mmHg (41-51)
[2021-08-10] MEDS: MAGNESIUM SULFATE 2 GM/50 ML BAG IVPB (03:06)
[2021-08-10] MEDS: Furosemide 40 MG/4 ML VIAL IVP ×3 (03:43→15:25)
--- OUTSIDE RECORDS SUMMARY | 2021-08-10 03:48 | XMS_ITS | Encounter Summary ---
:1970 [place] [address] Care Team Providers Name Role Phone Maria Del Carmen Nogueira Primary Care Provider Reason for Visit Reason Onset Date Comments Referral 09/15/2017 Encounter Details Date Type Department Care Team Description 09/15/2017 Telephone Weight and Wellness at G[facility] Bai APRN Referral [facility] [address] [place] [address] [place] [address] [phone] Social History Tobacco Use Types Packs/Day Years [...] on filedocumented in this encounter Care Teams Seasoner Relationship Specialty Start Date End Date Maria Del Carmen Nogueira PA PCP - General 01/27/14 10/05/19 [address] [place] [address] documented as of this encounter
--- OUTSIDE RECORDS SUMMARY | 2021-08-10 03:48 | XMS_ITS | Encounter Summary ---
:1970 Author Organization [place] [address] Care Team Providers Name Role Phone Maria Del Carmen Nogueira Primary Care Provider Reason for Visit Auth/Cert Specialty Diagnoses / Procedures Referred By Contact Refer red To Contact Diagnoses Acute renal failure Acute renal injury/ hypotension Referral ID Status Reason Start Date Expiration Date Visits Requ ested Visits Authorized [id number] 1 1 Encounter Details Date Type Department Care Team Description 11/16/2018 - Hospital Encounter 1 [facility] [address], Mylene Benton MD [facility] [place] [address] Acute kidney injury; 11/19/2018 [facility] Olvin Doran MD [address] [place] [address] [place] [address] Septic shock[facility] [place] [address] Morbid obesity; [facility] HELEN (obst ructive sleep apnea) [place] [id number] Social History Tobacco Use Types Packs/Day Years [...] Rosibel Bowden Patient Age: 48 y.o. Language: Ghanaian Race: White Ethnicity: Not nor Admit date: [...] prevent polypharmacy. 3. 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 Creatinine on [...] please contact your inpatient physician through the [facility] . Issues after hours and on weekends [...] consolidation. We later received notification from [place] that 3/3 blood cultures grew E.coli. Blood [...] MD Your Primary Care Provider: VERNA Irving [phone] For questions regarding this document or issues relating to this hospitalization on the Medical Service, please contact your inpatient physician through the [facility] . Issues after hours and on weekends will be handled by the Hospitalist staff on-call. General Instructions None Future Appointments and Orders Future Orders Complete By Expires Referral to Home Health - at DISCHARGE [[id number] CPT(R)] As directed Process Instructions: Scheduling Instructions: Comments: DOCUMENTATION FOR VNA SERVICES (INCLUDING THOSE PATIENTS WITH MEDICARE COVERAGE REQUIRING HOME VNA SERVICES AND/OR HOSPICE SERVICES) PATIENT'S LOCATION: [address] [facility] [address] [facility] [id number] [phone] (home) Cell: Telephone Information: Crisis Intervention Specialist's Name: self In discussion with the attending physician, it is certified that this patient is under their care and that they, or a Nurse Practitioner,Clinical Nurse specialist or Physician Charge Hand who is working directly with them, had [...] Please contact the wound care team at [phone] with skin and wound care concerns or questions. ?? Please assess for additional home care services (PT/OT/WEBSITE PROJECT MANAGER/CLINICAL ATHLETIC INSTRUCTOR) with goal of maximizing patient's functional abilities HOME HEALTH CARE AGENCY: [facility] PHONE: [phone] FAX: [phone] Start of care: 24-48 hours post-discharge FOR [...] Irving [address] / [place] [address] All A agencies which cover the area of patient's residence have been reviewed, either verbally or in writing, and patient/family have chosen the home health care agency noted Questions: Agency name and contact information: [facility] Patient location post discharge: home What services are requested: Registered Nurse Start date: Responsible MD post discharge contact info: PCP VERNA Nogueira Discharge References/Attachments None Hoda Casas MD Kadie Torres - 11/19/2018 8:44 AM EDT Images from the original note were not included. Discharge Summary Patient Name: Rosibel Bowden Patient Age: 48 y.o. Language: Ghanaian Race: White Ethnicity: Not nor Admit date: [...] please contact your inpatient physician through the [facility] . Issues after hours and on weekends [...] disorder on ariprazole and COPDwho presented to [facility] with left flank pain, fever and decreased [...] back pain increased and she presented to [facility] [place]. ?? On arrival, she was found [...] - improving - Received notification from [place] that 3/3 blood cultures grew E.coli. Blood [...] Latest Ref Range: Clear Cloudy (A) Spec Felicity UA Latest Ref Range: 1.002 - 1.030 [...] Please contact TANIA MCFARLAND RN on pager [phone] or the wound care team at [phone] or pager [phone] skin and wound care concerns or questions. [...] is receiving assistance for meal choices from diet consultant. 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 Patient has [...] consulted in the interim. CORIE XiaoR Pager# [phone] ??2:55 PM Pending Studies and Lab Data: [...] MD Your Primary Care Provider: VERNA Irving [phone] For questions regarding this document or issues relating to this hospitalization on the Medical Service, please contact your inpatient physician through the [facility] . Issues after hours and on weekends [...] MD Your Primary Care Provider: VERNA Irving [phone] For questions regarding this document or issues relating to this hospitalization on the Medical Service, please contact your inpatient physician through the [facility] . Issues after hours and on weekends [...] spent >30 minutes (Day of Discharge Code 55328) involved in the final examination of the [...] is receiving assistance for meal choices from diet consultant. 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 Patient has [...] consulted in the interim. CORIE XiaoR Pager# [phone] Hoda Casas MD - 11/18/2018 9:05 AM [...] pain INTERVAL HISTORY/OVERNIGHT EVENTS: - transferred to [facility] - feeling better today - sitting up in the chair - blood culture from [facility] grew E coli 3 bottles [...] 13.2 oz) GENERAL: awake, alert, NAD HEENT: [place] conjunctiva, anicteric sclerae, oropharynx clear HEART: regular [...] function improves Primary Care Provider: VERNA Irving [phone] Inpatient Certification Attestation: IPI Certification I certify that I am a D-H credentialed attending provider with admitting privileges and that the patient meets or has met medical necessity to require an inpatient IPI level of care meeting a minimum of two midnights or is on the [facility] inpatient only procedure list (status C) due to: acute kidney injury necessitating close monitoring of fluid balance such as intravenous fluids and/or titration of medication to achieve optimal effect and minimize the chance of immediate or severe side effects; sepsis on IV antibiotics Hoda Casas MD Team Pager(MD Coverage 09/09): #[phone] 11/18/2018 Cammie Gallego RN - 11/17/2018 7:22 PM EDT 1921 patient transported, in stable condition, via bed, to new room on Med-Surg--accompanied by transporters. Patient chart, medications, medical equipment, et personal belongings sent with the patient. Patient to notify family of transfer Hoda Casas MD - 11/17/2018 10:49 AM EDT [facility] Medicine Attending Inpatient Daily Progress Note [...] 13.2 oz) GENERAL: awake, alert, NAD HEENT: [place] conjunctiva, anicteric sclerae, oropharynx clear NECK: Supple, [...] function improves Primary Care Provider: VERNA Irving [phone] Inpatient Certification Attestation: IPI Certification I certify that I am a D-H credentialed attending provider with admitting privileges and that the patient meets or has met medical necessity to require an inpatient IPI level of care meeting a minimum of two midnights or is on the [facility] inpatient only procedure list (status C) due to: acute kidney injury necessitating close monitoring of fluid balance such as intravenous fluids and/or titration of medication to achieve optimal effect and minimize the chance of immediate or severe side effects; sepsis on IV antibiotics Hoda Casas MD Team Pager(MD Coverage 09/09): #[phone] 11/18/2018 andcae Dhillon RN - 11/17/2018 10:43 AM EDT Office of Care Management Progress Note Rosibel Bowden has been provided a list of Home Health Agencies/DME vendors which serve their preferred geographic area. A letter describing our affiliations was reviewed with them and they were educated about their right to choose where referrals are placed. Patient requests referral to: [facility] [employer]. PHONE: [phone] FAX: [phone] left at [facility] (ph: [phone]) for PCP VERNA Nogueira transition care RN regarding VNA referral post-discharge. Expected date of discharge: 2-3 days v TBD Transportation: Private vehicle Oxygen vendor: [facility] Referral routed to the Support Services Rep for matching with agency/vendor and to provide any required information. Alisha Crain RNCM P. [phone] Cammie Peter RN - 11/17/2018 2:50 AM [...] pain ID: 48 y.o. Female presents to [facility] with Urosepsis History of Present Illness: [facility] Rosibel Bowden is a 48 [...] file Gets together: Not on file Attends anabaptism service: Not on file Active member of [...] m?? Lactate, whole blood, send to lab ([facility] Result Value Ref Range Lactate WB 1.7 [...] mcL Appearance UA Cloudy (A) Clear Spec Felicity UA 1.017 1.002 - 1.030 Color UA [...] file Gets together: Not on file Attends anabaptism service: Not on file Active member of [...] hours. ABG: No results for input(s): PHART, HWP6BMH, PO2ART, RXJ1EHG in the last 168 hours. 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 Received a call from [facility], 3/3 blood cultures grew E.coli. Blood cultures here at [facility] still negative. ROS: General: Reports fevers, chills [...] Latest Ref Range: Clear Cloudy (A) Spec Felicity UA Latest Ref Range: 1.002 - 1.030 [...] - improving - Received notification from [place] that 3/3 blood cultures grew E.coli. Blood [...] DVT PPX: Heparin Team Pager(MD Coverage 09/09): #[phone] PCP: VERNA Irving [phone] Kadie Torres 11/18/2018 Plan of Care - [...] Torres Alba - 11/17/2018 8:08 AM EDT [facility] Medicine Daily Progress Note Admit Date: [...] disorder on ariprazole and COPDwho presented to [facility] with left flank pain, fever and decreased [...] back pain increased and she presented to [facility]. On arrival, she was found to [...] Latest Ref Range: Clear Cloudy (A) Spec Felicity UA Latest Ref Range: 1.002 - 1.030 [...] this is difficult for her to see. 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 Any patient receiving care at [facility] must abide by [place] law. The hierarchy for surrogate decision making [...] (i) The agent with financial power of testboard operator or a conservator appointed in accordance with [...] Scherer Social & Family Supports/Community Resources: family/friends/uses [facility] for oxygen needs Behavioral Health History: chart review mentions mood disorder Substance Use/Abuse: current everyday smoker (1 PPD) Occasional alcohol use/no abuse No mention of illicit drug use/abuse Other Pertinent/Service Specific Information: to be assessed Health/Prescription Coverage: Primary Insurance: MEDICARE Secondary Insurance: MEDICAID [place] Prescription Coverage: yes Preferred Pharmacy: [facility] [place] Other: To be assessed Primary Care Provider: VERNA Irving [phone] Patient/Caregiver Goals of Treatment: to return home [...] airway disease dx) accepted in transfer from [facility] for further management of sepsis. [...] of care planning. Candace Crain RN Pager: [phone] Consult Note - Tania Mcfarland RN - [...] Please contact TANIA MCFARLAND RN on pager [phone] or the wound care team at [phone] or pager [phone] skin and wound care concerns or questions. Electronically Signed By: TANIA MCFARLAND RN Consult Note - Juan Zapata [facility] - 11/16/2018 9:54 AM EDT Clinical Pharmacist Note-Vanc Rosibel Swainon [id number] 1970 Rosibelranjeet Bowden is a 48 y.o. [...] have. Alternately, during off-hours you may call [phone] to contact a pharmacist. JUAN ZAPATA RPH [...] Status -- 0 Score -- 45 OTHER Amin Fall Risk -- High Restraint Interventions Safety [...] Signature Glucose Lvl 168 65 - 199 [facility] mg/dL [facility] Comment: Diabetes: >=200 mg/dL plus symp toms BUN 29 (H) 8 - 18 mg/dL [facility] Creatinine 1.48 (H) 0.70 - 1.20 mg/dL [facility] Sodium 139 135 - 145 mmol/L [facility] Potassium 3.5 3.5 - 5.0 mmol/L [facility] Comment: Please note: ??Patients with WBC >100,00 0 may have falsely elevated Potassium levels. ??For accurate Potassium quantif ication in these patients send serum separator tube (gold top) for subsequent determinations. ??Contact the Clinical Chemistry Laboratory if there are any qu estions. Chloride 100 98 - 107 mmol/L [facility] CO2 26 22 - 31 mmol/L [facility] Anion Gap 13 5 - 15 mmol/L [facility] Calcium 9.7 8.5 - 10.5 mg/dL [facility] Estimated GFR 41 (L) >=60 mL/min/1.73 m?? [facility] Comment: The eGFR was calculated using the CKD-EP I equation. As with all creatinine based estimates of kidney function, eGFR values calculated with the CKD-EPI equation are not accurate in patients wi th acute kidney failure, extremes of body mass or the acutely ill. http://[employer]/[facility] eGFR 48 (L) >=60 mL/min/1.73 m?? [facility] Comment: The eGFR was calculated using the CKD-EP I equation. As with all creatinine based estimates of kidney function, eGFR values calculated with the CKD-EPI equation are not accurate in patients wi th acute kidney failure, extremes of body mass or the acutely ill. http://[employer]/[facility] Specimen Anatomical Collection Method Collection Time Receive d Time (Source) Location / / Volume Laterality Blood specimen 11/19/2018 8:45 AM 019 8:58 (specimen) EDT AM EDT Resulting Agency Comment Spec In Lab Hoda Casas MD CHEMISTRY ORDERABLES Performing Organization Address City/State/[place] [address] POCT Glucose (11/19/2018 6:49 AM EDT) P athologist Signature POC Glucose 133 65 - 199 [facility] mg/dL [facility] Comment: Supplemental ranges: <140 mg/dL before meals <180 mg/dL all other times of the day Specimen Anatomical Collection Method Collection Time Receive d Time (Source) Location / / Volume Laterality Blood specimen 11/19/2018 6:49 AM 019 6:49 (specimen) EDT AM EDT Hoda Casas MD POINT OF CARE TEST ORDERABLE S Performing Organization Address City/State/ZIP Code Phon e Number [address] Scan, Peripheral Blood (11/19/2018 5:13 AM EDT) Patholo gist Method Time Signature Plat Estimate Normal [facility] RBC Morphology Abnormal [facility] Macrocytes 1-5 /HPF [facility] Specimen Anatomical Collection Method Collection Time Receive d Time (Source) Location / / Volume Laterality Blood specimen 11/19/2018 5:13 AM 019 5:54 (specimen) EDT AM EDT Resulting Agency Comment Spec In Lab Hoda Casas MD HEMATOLOGY ORDERABLES Performing Organization Address City/State/[place] [address] (ABNORMAL) Differential, Automated (11/19/2018 5:13 AM EDT) P athologist Signature Neutrophils % 52.0 % [facility] Neutr Abs (ANC) 4.49 1.70 - [facility] 6.10 [facility] x10(3)/[facility] LABORATORY Lymphocytes % 25.6 % [facility] Lymphocytes Abs 2.2 0.9 - 3.2 [facility] x10(3)/[facility] LABORATORY Monocytes % 9.4 % [facility] Monocyte Abs 0.8 0.3 - 0.9 [facility] x10(3)/[facility] LABORATORY Eosinophils % 0.0 % [facility] Eosinophils Abs 0.0 0.0 - 0.4 [facility] x10(3)/[facility] LABORATORY Basophils % 0.2 % [facility] Basophils Abs 0.0 0.0 - 0.1 [facility] x10(3)/[facility] LABORATORY Immature Gran % 12.80 % [facility] Comment: Immature granulocytes(IG's)percentage an d absolute count will include metamyelocytes, myelocytes, and promyelo cytes. Blood smears from CBCs yielding IG's will be scanned manually for concor dance. If this scan disagrees with the automated IG or if promyelocytes are not ed, a manual differential will be performed. Ree Gran Abs 1.11 (H) 0.00 - 0.04 x10(3)/[facility] LABORATORY Specimen Anatomical Collection Method Collection Time Receive d Time (Source) Location / / Volume Laterality Blood specimen 11/19/2018 5:13 AM 019 5:54 (specimen) EDT AM EDT Resulting Agency Comment Spec In Lab Hoda Casas MD HEMATOLOGY ORDERABLES Performing Organization Address City/State/[place] [address] (ABNORMAL) Hemogram (11/19/2018 5:13 AM EDT) Analysis Performed At Patho logist Time Signature WBC 8.6 4.0 - 9.5 [facility] MARY x10(3)/[facility] LABORATORY RBC 4.25 4.00 - [facility] MARY 5.21 [facility] x10(6)/[facility] LABORATORY Hemoglobin 13.2 11.7 - [facility] 15.5 gm/dL [facility] Hematocrit 40.9 35.7 - [facility] 45.8 % [facility] MCV 96.2 (H) 82.6 - [facility] 94.4 [facility]ORATORY MCH 31.1 27.1 - [facility] MARY 32.0 pg [facility] MCHC 32.3 31.7 - [facility] 35.0 gm/dL [facility] Platelets 212 145 - 357 [facility] x10(3)/[facility] LABORATORY RDWSD 51.0 (H) 37.0 - [facility] 46.0 [facility] LABORATORY RDWCV 14.4 (H) 11.5 - [facility] MARY 14.1 % [facility] MPV 10.2 7.6 - 12.9 [facility] nRBC % Auto 0.0 % [facility] nRBC Abs Auto 0.000 0.000 - [facility] MARY 0.000 [facility] x10(3)/[facility] LABORATORY Specimen Anatomical Collection Method Collection Time Receive d Time (Source) Location / / Volume Laterality Blood specimen 11/19/2018 5:13 AM 5:54 (specimen) EDT AM EDT Resulting Agency Comment Spec In Lab Hoda Casas MD HEMATOLOGY ORDERABLES Performing Organization Address City/State/[place] [address] POCT Glucose (11/18/2018 9:39 PM EDT) athologist Signature POC Glucose 133 65 - 199 [facility] mg/dL [facility] Comment: Supplemental ranges: <140 mg/dL before meals <180 mg/dL all other times of the day Specimen Anatomical Collection Method Collection Time Receive d Time (Source) Location / / Volume Laterality Blood specimen 11/18/2018 9:39 PM 019 9:39 (specimen) EDT PM EDT Hoda Casas MD POINT OF CARE TEST ORDERABLE S Performing Organization Address City/State/ZIP Code Phon e Number [address] POCT Glucose (11/18/2018 4:26 PM EDT) athologist Signature POC Glucose 149 65 - 199 [facility] mg/dL [facility] Comment: Supplemental ranges: <140 mg/dL before meals <180 mg/dL all other times of the day Specimen Anatomical Collection Method Collection Time Receive d Time (Source) Location / / Volume Laterality Blood specimen 11/18/2018 4:26 PM 019 4:26 (specimen) EDT PM EDT Hoda Casas MD POINT OF CARE TEST ORDERABLE S Performing Organization Address City/State/[place] [address] (ABNORMAL) POCT Glucose (11/18/2018 11:10 AM EDT) athologist Signature POC Glucose 202 (H) 65 - 199 [facility] mg/dL [facility] Comment: Supplemental ranges: <140 mg/dL before meals <180 mg/dL all other times of the day Specimen Anatomical Collection Method Collection Time Receive d Time (Source) Location / / Volume Laterality Blood specimen 11/18/2018 11:10 9 (specimen) AM EDT 11:10 AM EDT Hoda Casas MD POINT OF CARE TEST ORDERABLE S Performing Organization Address City/State/ZIP Code Phon e Number [address] POCT Glucose (11/18/2018 6:37 AM EDT) P athologist Signature POC Glucose 140 65 - 199 [facility] mg/dL [facility] Comment: Supplemental ranges: <140 mg/dL before meals <180 mg/dL all other times of the day Specimen Anatomical Collection Method Collection Time Receive d Time (Source) Location / / Volume Laterality Blood specimen 11/18/2018 6:37 AM 6:37 (specimen) EDT AM EDT Hoda Casas MD POINT OF CARE TEST ORDERABLE S Performing Organization Address City/[facility]/ZIP Code Phon e Number [address] Scan, Peripheral Blood (11/18/2018 4:40 AM EDT) [facility] Method Time Signature Plat Estimate Normal [facility] RBC Morphology Abnormal [facility] Tear Drop gtr than 10 /HPF [facility] Quanah Cells 1-5 /HPF [facility] Dohle Bodies Present [facility] Specimen Anatomical Collection Method Collection Time Receive d Time (Source) Location / / Volume Laterality Blood specimen 11/18/2018 4:40 AM 5:19 (specimen) EDT AM EDT Resulting Agency Comment Spec In Lab Hoda Casas MD HEMATOLOGY ORDERABLES Performing Organization Address City/[facility]/ZIP Code Phon e Number [address] (ABNORMAL) Differential, Automated (11/18/2018 4:40 AM EDT) [facility] [employer] Method Time Signature Neutrophils % 64.5 % [facility] Neutr Abs (ANC) 5.48 1.70 - [facility] 6.10 [facility] x10(3)/[facility] LABORATORY Lymphocytes % 16.9 % [facility] Lymphocytes Abs 1.4 0.9 - 3.2 [facility] x10(3)/[facility] LABORATORY Monocytes % 12.1 % [facility] Monocyte Abs 1.0 (H) 0.3 - 0.9 [facility] x10(3)/[facility] LABORATORY Eosinophils % 0.1 % [facility] Eosinophils Abs 0.0 0.0 - 0.4 [facility] x10(3)/[facility] LABORATORY Basophils % 1.2 % [facility] Basophils Abs 0.1 0.0 - 0.1 [facility] x10(3)/[facility] LABORATORY Immature Gran % 5.20 % [facility] Comment: Immature granulocytes(IG's)percentage an d absolute count will include metamyelocytes, myelocytes, and promyelo cytes. Blood smears from CBCs yielding IG's will be scanned manually for concor dance. If this scan disagrees with the automated IG or if promyelocytes are not ed, a manual differential will be performed. Ree Gran Abs 0.44 (H) 0.00 - 0.04 x10(3)/[facility] LABORATORY Specimen Anatomical Collection Method Collection Time Receive d Time (Source) Location / / Volume Laterality Blood specimen 11/18/2018 4:40 AM 019 5:19 (specimen) EDT AM EDT Resulting Agency Comment Spec In Lab Hoda Casas MD HEMATOLOGY ORDERABLES Performing Organization Address City/State/[place] [address] (ABNORMAL) Hemogram (11/18/2018 4:40 AM EDT) Analysis Performed At Patho logist Time Signature WBC 8.5 4.0 - 9.5 [facility] x10(3)/[facility] LABORATORY RBC 4.12 4.00 - [facility] 5.21 [facility] x10(6)/[facility] LABORATORY Hemoglobin 12.8 11.7 - [facility] 15.5 gm/dL [facility] LABORATORY Hematocrit 40.3 35.7 - [facility] 45.8 % [facility] MCV 97.8 (H) 82.6 - [facility] 94.4 fL [facility] MCH 31.1 27.1 - [facility] 32.0 pg [facility] MCHC 31.8 31.7 - [facility] 35.0 gm/dL [facility] LAB[facility] Platelets 158 145 - 357 [facility] x10(3)/[facility] LABORATORY RDWSD 51.9 (H) 37.0 - [facility] 46.0 [facility] LABORATORY RDWCV 14.4 (H) 11.5 - [facility] 14.1 % [facility] LABORATORY MPV 10.8 7.6 - 12.9 [facility] LABORATORY nRBC % Auto 0.0 % [facility] LABORATORY nRBC Abs Auto 0.000 0.000 - [facility] 0.000 [facility] x10(3)/[facility] LABORATORY Specimen Anatomical Collection Method Collection Time Receive d Time (Source) Location / / Volume Laterality Blood specimen 11/18/2018 4:40 AM 019 5:19 (specimen) EDT AM EDT Resulting Agency Comment Spec In Lab Hoda Casas MD HEMATOLOGY ORDERABLES Performing Organization Address City/State/[place] [address] (ABNORMAL) Basic Metabolic Panel (non-fasting) (11/18/2018 4:40 AM EDT) P athologist Signature Glucose Lvl 136 65 - 199 [facility] mg/dL [facility] LABORATORY Comment: Diabetes: >=200 mg/dL plus symp toms BUN 41 (H) 8 - 18 mg/dL [facility] LABORATORY Creatinine 1.94 (H) 0.70 - 1.20 mg/dL [facility] LABORATORY Sodium 137 135 - 145 mmol/L [facility] LABORATORY Potassium 3.5 3.5 - 5.0 mmol/L [facility] LABORATORY Comment: Please note: ??Patients with WBC >100,00 0 may have falsely elevated Potassium levels. ??For accurate Potassium quantif ication in these patients send serum separator tube (gold top) for subsequent determinations. ??Contact the Clinical Chemistry Laboratory if there are any qu estions. Chloride 100 98 - 107 mmol/L [facility] LABORATORY CO2 24 22 - 31 mmol/L [facility] LABOR[facility]ORY Anion Gap 13 5 - 15 mmol/L [facility] LABORATORY Calcium 9.1 8.5 - 10.5 mg/dL [facility] LABORATORY Comment: result rechecked-JSD Estimated GFR 30 (L) >=60 mL/min/1.73 m?? [facility] LABORATORY Comment: The eGFR was calculated using the CKD-EP I equation. As with all creatinine based estimates of kidney function, eGFR values calculated with the CKD-EPI equation are not accurate in patients wi th acute kidney failure, extremes of body mass or the acutely ill. http://[employer]/[facility] eGFR 34 (L) >=60 mL/min/1.73 m?? [facility] LABORATORY Comment: The eGFR was calculated using the CKD-EP I equation. As with all creatinine based estimates of kidney function, eGFR values calculated with the CKD-EPI equation are not accurate in patients wi th acute kidney failure, extremes of body mass or the acutely ill. http://[employer]/[facility] Specimen Anatomical Collection Method Collection Time Receive d Time (Source) Location / / Volume Laterality Blood specimen 11/18/2018 4:40 AM 5:19 (specimen) EDT AM EDT Resulting Agency Comment Spec In Lab Hoda Casas MD CHEMISTRY ORDERABLES Performing Organization Address City/[facility]/ZIP Code Phon e Number [address] POCT Glucose (11/17/2018 7:56 PM EDT) P athologist Signature POC Glucose 169 65 - 199 [facility] mg/dL [facility] LABORATORY Comment: Supplemental ranges: <140 mg/dL before meals <180 mg/dL all other times of the day Specimen Anatomical Collection Method Collection Time Receive d Time (Source) Location / / Volume Laterality Blood specimen 11/17/2018 7:56 PM 019 7:56 (specimen) EDT PM EDT Hoda Casas MD POINT OF CARE TEST ORDERABLE S Performing Organization Address City/State/[place] [address] POCT Glucose (11/17/2018 4:13 PM EDT) athologist Signature POC Glucose 154 65 - 199 [facility] mg/dL [facility] LABOR[facility]ORY Comment: Supplemental ranges: <140 mg/dL before meals <180 mg/dL all other times of the day Specimen Anatomical Collection Method Collection Time Receive d Time (Source) Location / / Volume Laterality Blood specimen 11/17/2018 4:13 PM 4:13 (specimen) EDT PM EDT Hoda Casas MD POINT OF CARE TEST ORDERABLE S Performing Organization Address City/State/ZIP Code Phon e Number [address] POCT Glucose (11/17/2018 11:47 AM EDT) athologist Signature POC Glucose 167 65 - 199 [facility] Comment: Supplemental ranges: <140 mg/dL before meals <180 mg/dL all other times of the day Specimen Anatomical Collection Method Collection Time Receive d Time (Source) Location / / Volume Laterality Blood specimen 11/17/2018 11:47 9 (specimen) AM EDT 11:47 AM EDT Hoda Casas MD POINT OF CARE TEST ORDERABLE S Performing Organization Address City/State/ZIP Code Phon e Number [address] POCT Glucose (11/17/2018 7:24 AM EDT) athologist Signature POC Glucose 166 65 - 199 [facility] mg/dL [facility] LABORATORY Comment: Supplemental ranges: <140 mg/dL before meals <180 mg/dL all other times of the day Specimen Anatomical Collection Method Collection Time Receive d Time (Source) Location / / Volume Laterality Blood specimen 11/17/2018 7:24 AM 7:24 (specimen) EDT AM EDT Olvin Doran MD POINT OF CARE TEST ORDERABLE S Performing Organization Address City/State/[place] [address] POCT Glucose (11/17/2018 6:22 AM EDT) athologist Signature POC Glucose 136 65 - 199 [facility] mg/dL [facility] LABOR[facility]ORY Comment: Supplemental ranges: <140 mg/dL before meals <180 mg/dL all other times of the day Specimen Anatomical Collection Method Collection Time Receive d Time (Source) Location / / Volume Laterality Blood specimen 11/17/2018 6:22 AM 6:22 (specimen) EDT AM EDT Olvin Doran MD POINT OF CARE TEST ORDERABLE S Performing Organization Address City/[facility]/[place] [address] Vancomycin, trough (11/17/2018 6:20 AM EDT) athologist Signature Vanc Trough 17.8 mg/L [facility] LABORATORY Comment: Therapeutic range for complicated infect [...] Casas MD CHEMISTRY ORDERABLES Performing Organization Address City/[facility]/ZIP [facility] [place] [address] (ABNORMAL) Differential, Automated (11/17/2018 1:25 AM EDT) athologist Signature Neutrophils % 74.6 % [facility] LABORATORY Neutr Abs (ANC) 5.50 1.70 - [facility] 6.10 [facility] x10(3)/[facility] LABORATORY Lymphocytes % 12.7 % [facility] LABORATORY Lymphocytes Abs 0.9 0.9 - 3.2 [facility] x10(3)/[facility] LABORATORY Monocytes % 10.4 % [facility] LABORATORY Monocyte Abs 0.8 0.3 - 0.9 [facility] x10(3)/[facility] LABORATORY Eosinophils % 0.0 % [facility] LABORATORY Eosinophils Abs 0.0 0.0 - 0.4 [facility] x10(3)/[facility] LABORATORY Basophils % 0.5 % [facility] LABORATORY Basophils Abs 0.0 0.0 - 0.1 [facility] x10(3)/[facility] LABORATORY Immature Gran % 1.80 % [facility] LABORATORY Comment: Immature granulocytes(IG's)percentage an d absolute count will include metamyelocytes, myelocytes, and promyelo cytes. Blood smears from CBCs yielding IG's will be scanned manually for concor dance. If this scan disagrees with the automated IG or if promyelocytes are not ed, a manual differential will be performed. Ree Gran Abs 0.13 (H) 0.00 - 0.04 x10(3)/[facility] LABORATORY Specimen Anatomical Collection Method Collection Time Receive d Time (Source) Location / / Volume Laterality Blood specimen 11/17/2018 1:25 AM 019 1:42 (specimen) EDT AM EDT Resulting Agency Comment Spec In Lab Kandis Tee MD HEMATOLOGY ORDERABLES Performing Organization Address City/State/[place] [address] (ABNORMAL) Hemogram (11/17/2018 1:25 AM EDT) Analysis Performed At Patho logist Time Signature WBC 7.4 4.0 - 9.5 [facility] x10(3)/[facility] LABORATORY RBC 3.84 (L) 4.00 - [facility] 5.21 [facility] x10(6)/[facility] LABORATORY Hemoglobin 12.2 11.7 - [facility] 15.5 gm/dL [facility] LABORATORY Hematocrit 36.9 35.7 - [facility] 45.8 % [facility] MCV 96.1 (H) 82.6 - [facility] 94.4 fL [facility] LAB[facility] MCH 31.8 27.1 - [facility] 32.0 [facility] LABORATORY MCHC 33.1 31.7 - [facility] 35.0 gm/dL [facility] LABORATORY Platelets 125 (L) 145 - 357 [facility] x10(3)/[facility] LABORATORY RDWSD 51.3 (H) 37.0 - [facility] MARY 46.0 [facility] LABORATORY RDWCV 14.4 (H) 11.5 - [facility] 14.1 % [facility] LABORATORY MPV 11.2 7.6 - 12.9 [facility] LABORATORY nRBC % Auto 0.0 % [facility] LABORATORY nRBC Abs Auto 0.000 0.000 - [facility] 0.000 [facility] x10(3)/[facility] LABORATORY Specimen Anatomical Collection Method Collection Time Receive d Time (Source) Location / / Volume Laterality Blood specimen 11/17/2018 1:25 AM 019 1:42 (specimen) EDT AM EDT Resulting Agency Comment Spec In Lab Kandis Tee MD HEMATOLOGY ORDERABLES Performing Organization Address City/State/[place] [address] (ABNORMAL) Basic Metabolic Panel (non-fasting) (11/17/2018 1:25 AM EDT) P athologist Signature Glucose Lvl 140 65 - 199 [facility] mg/dL [facility] LABOR[facility]ORY Comment: Diabetes: >=200 mg/dL plus symp toms BUN 48 (H) 8 - 18 mg/dL [facility] LABORATORY Creatinine 2.59 (H) 0.70 - 1.20 mg/dL [facility] LABORATORY Comment: result rechecked-JSD Sodium 135 135 - 145 mmol/L [facility] LABORATORY Potassium 3.2 (L) 3.5 - 5.0 mmol/L [facility] LABORATORY Comment: Please note: ??Patients with WBC >100,00 0 may have falsely elevated Potassium levels. ??For accurate Potassium quantif ication in these patients send serum separator tube (gold top) for subsequent determinations. ??Contact the Clinical Chemistry Laboratory if there are any qu estions. Chloride 101 98 - 107 mmol/L [facility] LABORATORY CO2 21 (L) 22 - 31 mmol/L [facility] LABORATORY Anion Gap 13 5 - 15 mmol/L [facility] LABORATORY Calcium 7.7 (L) 8.5 - 10.5 mg/dL [facility] LABORATORY Comment: result rechecked-JSD Estimated GFR 21 (L) >=60 mL/min/1.73 m?? [facility] LABORATORY Comment: The eGFR was calculated using the CKD-EP I equation. As with all creatinine based estimates of kidney function, eGFR values calculated with the CKD-EPI equation are not accurate in patients wi th acute kidney failure, extremes of body mass or the acutely ill. http://[employer]/[facility] eGFR 24 (L) >=60 mL/min/1.73 m?? [facility] LABORATORY Comment: The eGFR was calculated using the CKD-EP I equation. As with all creatinine based estimates of kidney function, eGFR values calculated with the CKD-EPI equation are not accurate in patients wi th acute kidney failure, extremes of body mass or the acutely ill. http://[employer]/[facility] Specimen Anatomical Collection Method Collection Time Receive d Time (Source) Location / / Volume Laterality Blood specimen 11/17/2018 1:25 AM 019 1:42 (specimen) EDT AM EDT Resulting Agency Comment Spec In Lab Hoda Casas MD CHEMISTRY ORDERABLES Performing Organization Address City/State/[place] [address] POCT Glucose (11/16/2018 8:13 PM EDT) P athologist Signature POC Glucose 191 65 - 199 [facility] mg/dL [facility] LAB[facility] Comment: Supplemental ranges: <140 mg/dL before meals <180 mg/dL all other times of the day Specimen Anatomical Collection Method Collection Time Receive d Time (Source) Location / / Volume Laterality Blood specimen 11/16/2018 8:13 PM 019 8:13 (specimen) EDT PM EDT Olvin Doran MD POINT OF CARE TEST ORDERABLE S Performing Organization Address City/State/[place] [address] POCT Glucose (11/16/2018 4:30 PM EDT) athologist Signature POC Glucose 137 65 - 199 [facility] Comment: Supplemental ranges: <140 mg/dL before meals <180 mg/dL all other times of the day Specimen Anatomical Collection Method Collection Time Receive d Time (Source) Location / / Volume Laterality Blood specimen 11/16/2018 4:30 PM 019 4:30 (specimen) EDT PM EDT Olvin Doran MD POINT OF CARE TEST ORDERABLE S Performing Organization Address City/[facility]/[place] [address] POCT Glucose (11/16/2018 11:37 AM EDT) athologist Signature POC Glucose 131 65 - 199 [facility] mg/dL [facility] Comment: Supplemental ranges: <140 mg/dL before meals <180 mg/dL all other times of the day Specimen Anatomical Collection Method Collection Time Receive d Time (Source) Location / / Volume Laterality Blood specimen 11/16/2018 11:37 9 (specimen) AM EDT 11:37 AM EDT Mylene Oakley MD POINT OF CARE TEST ORDER HOLLY Performing Organization Address City/[facility]/[place] [address] XR Chest One View [...] below. ? Electronically signed by: ZEENAT Seymour [facility] ([phone]), at 11/16/2018 11:12 AM Narrative 11/16/2018 11:12 [...] number below. Electronically signed by: ZEENAT Seymour [facility] ([phone]), at 11/16/2018 11:12 AM Mylene Oakley MD IMG DX ORDERABLES POCT Glucose (11/16/2018 7:23 AM EDT) athologist Signature POC Glucose 132 65 - 199 [facility] mg/dL [facility] Comment: Supplemental ranges: <140 mg/dL before meals <180 mg/dL all other times of the day Specimen Anatomical Collection Method Collection Time Receive d Time (Source) Location / / Volume Laterality Blood specimen 11/16/2018 7:23 AM 019 7:23 (specimen) EDT AM EDT Mylene Oakley MD POINT OF CARE TEST ORDER HOLLY Performing Organization Address City/State/[place] [address] Blood culture (11/16/2018 6:30 AM EDT) Patholo gist Method Time Signature Blood Culture No growth KENDRA HERNANDEZ at 5 days. [facility] LABORATORY Specimen Anatomical Collection Method Collection Time Receive d Time (Source) Location / / Volume Laterality Blood specimen STRUCTURE OF LEFT 11/16/2018 6:30 AM 7:29 (specimen) HAND / Unknown EDT AM EDT Resulting Agency Comment Spec In Lab Mylene Oakley MD MICROBIOLOGY - BLOOD ORD ERABLES Performing Organization Address City/State/[place] [address] (ABNORMAL) POCT Glucose (11/16/2018 3:50 AM EDT) P athologist Signature POC Glucose 209 (H) 65 - 199 [facility] mg/dL [facility] Comment: Supplemental ranges: <140 mg/dL before meals <180 mg/dL all other times of the day Specimen Anatomical Collection Method Collection Time Receive d Time (Source) Location / / Volume Laterality Blood specimen 11/16/2018 3:50 AM 019 3:50 (specimen) EDT AM EDT Mylene Oakley MD POINT OF CARE TEST ORDER HOLLY Performing Organization Address City/[facility]/[place] [address] (ABNORMAL) Urine culture (11/16/2018 3:31 AM EDT) Patholo gist Method Time Signature Urine Culture 1,000-9,000 KENDRA HERNANDEZ cfu/ml Gram [facility] Rods (A) LABORATORY Organism Gram [facility] Rods (A) HOSPITAL LABORATORY Specimen (Source) Anatomical Collection Method Collection Time Re ceived Time Location / / Volume Laterality Urine specimen 11/16/2018 3:31 11/16/2018 5:16 obtained via AM EDT AM EDT indwelling urinary catheter (specimen) Resulting Agency Comment Spec In Lab Osvaldo Beebe MD MICROBIOLOGY - GENERAL ORDER HOLLY Performing Organization Address City/[facility]/[place] [address] (ABNORMAL) Urinalysis Microscopic Exam (11/16/2018 3:31 AM EDT) Tail Method Time Signature RBC UA >182 (H) 0 - 4 [facility] LABORATORY WBC UA >182 (H) 0 - 5 [facility] LABORATORY WBCs Clumping Many (A) None /HPF [facility] LABORATORY Bacteria UA Moderate (A) None /HPF [facility] LABORATORY Squam Epith 5 (H) <=4 /HPF [facility] LABORATORY Specimen (Source) Anatomical Collection Method Collection Time Re ceived Time Location / / Volume Laterality Urine specimen 11/16/2018 3:31 11/16/2018 3:58 obtained via AM EDT AM EDT indwelling urinary catheter (specimen) Resulting Agency Comment Spec In Lab Osvaldo Beebe MD URINE ORDERABLES Performing Organization Address City/[facility] [place] [address] (ABNORMAL) Urinalysis with reflex Culture (11/16/2018 3:31 AM EDT) Tail Method Time Signature Glucose UA Negative Negative [facility] mg[facility]dL [facility] Protein UA >=500 (A) Negative [facility] mg/dL [facility] Bilirubin UA Negative Negative [facility] mg/dL [facility] Comment: Clinical correlation required for positi ve Urine Bilirubin results as false positive may occur with some drugs and d rug related products. If a false positive is suspected a serum total bili palacios should be considered if clinically indicated. Urobilinogen UA 2.0 (A) Normal mg/dL [facility] LABORATORY pH UA 5.0 5.0 - 8.0 [facility] LABORATORY Blood UA Large (A) Negative mg/dL [facility] Ketones UA Negative Negative mg/dL [facility] Nitrite UA Negative Negative [facility] LAB[facility]ORY Leukocytes UA Moderate (A) Negative mcL [facility] LABORATORY Appearance UA Cloudy (A) Clear [facility] LABORATORY Spec Felicity UA 1.017 1.002 - 1.030 [facility] LABORATORY Color UA Maritza Yellow [facility] LABORATORY Culture Reflexed Yes [facility] LABORATORY Specimen (Source) Anatomical Collection Method Collection Time Re ceived Time Location / / Volume Laterality Urine specimen 11/16/2018 3:31 11/16/2018 3:55 obtained via AM EDT AM EDT indwelling urinary catheter (specimen) Resulting Agency Comment Spec In Lab Mylene Oakley MD URINE ORDERABLES Performing Organization Address City/[facility]/ZIP Code Phon e Number [address] Urea nitrogen, urine, random (11/16/2018 2:44 AM EDT) P athologist Signature U Urea 108 mg/dL [facility] LABORATORY Specimen Anatomical Collection Method Collection Time Receive d Time (Source) Location / / Volume Laterality Urine specimen 11/16/2018 2:44 AM 019 3:13 (specimen) EDT AM EDT Resulting Agency Comment Spec In Lab Mylene Oakley MD URINE ORDERABLES Performing Organization Address City/[facility]/ZIP Code Phon e Number [address] Creatinine, urine, random (11/16/2018 2:44 AM EDT) P athologist Signature U Creatinine 120 mg/dL [facility] LABORATORY Specimen Anatomical Collection Method Collection Time Receive d Time (Source) Location / / Volume Laterality Urine specimen 11/16/2018 2:44 AM 019 3:13 (specimen) EDT AM EDT Resulting Agency Comment Spec In Lab Mylene Oakley MD URINE ORDERABLES Performing Organization Address City/[facility]/ZIP Code Phon e Number [address] Electrolytes, urine, random (11/16/2018 2:44 AM EDT) P athologist Signature U Sodium 65 mmol/L [facility] U Potassium 33 mmol/L [facility] U Chloride 33 mmol/L [facility]ORATORY Specimen Anatomical Collection Method Collection Time Receive d Time (Source) Location / / Volume Laterality Urine specimen 11/16/2018 2:44 AM 019 3:13 (specimen) EDT AM EDT Resulting Agency Comment Spec In Lab Mylene Oakley MD URINE ORDERABLES Performing Organization Address City/[facility]/[place] [address] (ABNORMAL) Hemoglobin A1c (11/16/2018 2:30 AM EDT) Analysis Performed At Patho logist Time Signature Hemoglobin A1C 6.8 (H) 4.3 - 5.6 [facility] LABORATORY Comment: Reference Range: 4.3 - 5.6% [...] Mellitus, Diabetes Care 2013; 36: Suppl. 1, S67-52 Est Avg Gluc 149 mg/dL [facility] LABORATORY Comment: eAG equivalents for HbA1c percentages: [...] into estimated average glucose values. ??Diabetes Care 2008:31(8):0019-2102. Specimen Anatomical Collection Method Collection Time Receive d Time (Source) Location / / Volume Laterality Blood specimen Venous Draw / 11/16/2018 2:30 AM 2018 (specimen) Unknown EDT 12:33 PM EDT Resulting Agency Comment Spec In Lab Kandis Tee MD CHEMISTRY ORDERABLES Performing Organization Address City/State/[place] [address] (ABNORMAL) Differential, Automated (11/16/2018 2:30 AM EDT) [facility] gist Method Time Signature Neutrophils % 78.2 % [facility] LABORATORY Neutr Abs (ANC) 8.57 (H) 1.70 - [facility] 6.10 [facility] x10(3)/[facility] LABORATORY Lymphocytes % 10.4 % [facility] LABORATORY Lymphocytes Abs 1.1 0.9 - 3.2 [facility] x10(3)/[facility] LABORATORY Monocytes % 9.0 % [facility] LABORATORY Monocyte Abs 1.0 (H) 0.3 - 0.9 [facility] x10(3)/[facility] LABORATORY Eosinophils % 0.0 % [facility] LABORATORY Eosinophils Abs 0.0 0.0 - 0.4 [facility] x10(3)/[facility] LABORATORY Basophils % 0.5 % [facility] HOSPITAL LABORATORY Basophils Abs 0.0 0.0 - 0.1 [facility] x10(3)/[facility] LABORATORY Immature Gran % 1.90 % [facility] Comment: Immature granulocytes(IG's)percentage an d absolute count will include metamyelocytes, myelocytes, and promyelo cytes. Blood smears from CBCs yielding IG's will be scanned manually for concor dance. If this scan disagrees with the automated IG or if promyelocytes are not ed, a manual differential will be performed. Ree Gran Abs 0.21 (H) 0.00 - 0.04 x10(3)/[facility] LABORATORY Specimen Anatomical Collection Method Collection Time Receive d Time (Source) Location / / Volume Laterality Blood specimen 11/16/2018 2:30 AM 019 2:35 (specimen) EDT AM EDT Resulting Agency Comment Spec In Lab Osvaldo Beebe MD HEMATOLOGY ORDERABLES Performing Organization Address City/State/[place] [address] (ABNORMAL) Hemogram (11/16/2018 2:30 AM EDT) Analysis Performed At Patho logist Time Signature WBC 11.0 (H) 4.0 - 9.5 [facility] x10(3)/[facility] LABORATORY RBC 4.32 4.00 - [facility] 5.21 [facility] x10(6)/[facility] LABORATORY Hemoglobin 13.5 11.7 - [facility] 15.5 gm/dL [facility] Hematocrit 41.5 35.7 - [facility] 45.8 % [facility] MCV 96.1 (H) 82.6 - [facility] 94.4 fL [facility] MCH 31.3 27.1 - [facility] 32.0 pg [facility] MCHC 32.5 31.7 - [facility] 35.0 gm/dL [facility] Platelets 173 145 - 357 [facility] x10(3)/[facility] LABORATORY RDWSD 51.8 (H) 37.0 - [facility] 46.0 [facility] LABORATORY RDWCV 14.5 (H) 11.5 - [facility] 14.1 % [facility] MPV 11.4 7.6 - 12.9 [facility] LABORATORY nRBC % Auto 0.0 % [facility] nRBC Abs Auto 0.000 0.000 - [facility] 0.000 [facility] x10(3)/[facility] LABORATORY Specimen Anatomical Collection Method Collection Time Receive d Time (Source) Location / / Volume Laterality Blood specimen 11/16/2018 2:30 AM 019 2:35 (specimen) EDT AM EDT Resulting Agency Comment Spec In Lab Osvaldo Beebe MD HEMATOLOGY ORDERABLES Performing Organization Address City/[facility]/ZIP [facility] Phon e Number [address] Lactate, whole blood, send to lab ([facility]) (11/16/2018 2:30 AM EDT) P athologist Signature Lactate WB 1.7 0.5 - 2.2 [facility] mmol/L [facility] Specimen Anatomical Collection Method Collection Time Receive d Time (Source) Location / / Volume Laterality Blood specimen 11/16/2018 2:30 AM 019 2:35 (specimen) EDT AM EDT Resulting Agency Comment Spec In Lab Mylene Oakley MD CHEMISTRY ORDERABLES Performing Organization Address City/[facility]/ZIP Code Phon e Number [address] (ABNORMAL) CMP w/fasting Glucose (11/16/2018 2:30 AM EDT) P athologist Signature Glucose 227 (H) 65 - 99 [facility] Fasting mg/dL [facility] Comment: ?Fasting* Glucose Interpretive C [...] of Diabetes Mellitus, Position Statement from the [place] [employer]. ??Diabete s Care, Volume 33, Supplement 1, Feb 2009 BUN 57 (H) 8 - 18 mg/dL [facility] LABORATORY Creatinine 3.79 (H) 0.70 - 1.20 mg/dL [facility] LABORATORY Sodium 134 (L) 135 - 145 mmol/L [facility] LABORATORY Potassium 3.8 3.5 - 5.0 mmol/L [facility] LABOR[facility]ORY Comment: Please note: ??Patients with WBC >100,00 0 may have falsely elevated Potassium levels. ??For accurate Potassium quantif ication in these patients send serum separator tube (gold top) for subsequent determinations. ??Contact the Clinical Chemistry Laboratory if there are any qu estions. Chloride 95 (L) 98 - 107 mmol/L [facility] CO2 23 22 - 31 mmol/L [facility] Anion Gap 16 (H) 5 - 15 mmol/L [facility] LABORATORY Calcium 8.9 8.5 - 10.5 mg/dL [facility] LABORATORY Total Protein 7.0 6.1 - 8.0 gm/dL [facility] LABORATORY Albumin 3.2 3.2 - 5.2 gm/dL [facility] AST 48 (H) 0 - 30 unit/L [facility] LABOR[facility] ALT 24 0 - 30 unit/L [facility] Alk Phos 105 35 - 105 unit/L [facility] Total Bilirubin 0.6 0.2 - 1.3 mg/dL [facility] LABORATORY Estimated GFR 13 (L) >=60 mL/min/1.73 m?? [facility] Comment: The eGFR was calculated using the CKD-EP I equation. As with all creatinine based estimates of kidney function, eGFR values calculated with the CKD-EPI equation are not accurate in patients wi th acute kidney failure, extremes of body mass or the acutely ill. http://[employer]/[facility] eGFR 15 (L) >=60 mL/min/1.73 m?? [facility] Comment: The eGFR was calculated using the CKD-EP I equation. As with all creatinine based estimates of kidney function, eGFR values calculated with the CKD-EPI equation are not accurate in patients wi th acute kidney failure, extremes of body mass or the acutely ill. http://[employer]/[facility] Specimen Anatomical Collection Method Collection Time Receive d Time (Source) Location / / Volume Laterality Blood specimen 11/16/2018 2:30 AM 019 2:35 (specimen) EDT AM EDT Resulting Agency Comment Spec In Lab Mylene Oakley MD CHEMISTRY ORDERABLES Performing Organization Address City/State/ZIP Code Phon e Number [address] Magnesium (11/16/2018 2:30 AM EDT) P athologist Signature Magnesium 0.73 0.69 - 1.07 [facility] mmol/L [facility]OR[facility] Specimen Anatomical Collection Method Collection Time Receive d Time (Source) Location / / Volume Laterality Blood specimen 11/16/2018 2:30 AM 019 2:35 (specimen) EDT AM EDT Resulting Agency Comment Spec In Lab Mylene Oakley MD CHEMISTRY ORDERABLES Performing Organization Address City/State/ZIP Code Phon e Number [address] Phosphorus (11/16/2018 2:30 AM EDT) P athologist Signature Phosphorus 2.7 2.5 - 4.5 [facility] mg/dL [facility] Specimen Anatomical Collection Method Collection Time Receive d Time (Source) Location / / Volume Laterality Blood specimen 11/16/2018 2:30 AM 019 2:35 (specimen) EDT AM EDT Resulting Agency Comment Spec In Lab Mylene Oakley MD CHEMISTRY ORDERABLES Performing Organization Address City/[facility]/[place] [address] APTT (11/16/2018 2:30 AM EDT) P athologist Signature PTT 29 25 - [address] [facility] Comment: The PTT is NOT appropriate [...] Oakley MD HEMATOLOGY ORDERABLES Performing Organization Address City/[facility] [place] [address] (ABNORMAL) Prothrombin Time (11/16/2018 2:30 AM EDT) P athologist Signature PT 13.4 (H) 9.4 - 12.5 [facility] LABORATORY INR 1.2 [facility] Comment: An INR <2.0 indicates adequate [...] Oakley MD HEMATOLOGY ORDERABLES Performing Organization Address City/[facility]/[place] [address] (ABNORMAL) POCT Glucose (11/16/2018 1:57 AM EDT) P athologist Signature POC Glucose 214 (H) 65 - 199 [facility] mg/dL [facility] Comment: Supplemental ranges: <140 mg/dL before meals <180 mg/dL all other times of the day Specimen Anatomical Collection Method Collection Time Receive d Time (Source) Location / / Volume Laterality Blood specimen 11/16/2018 1:57 AM 019 1:57 (specimen) EDT AM EDT Mylene Oakley MD POINT OF CARE TEST ORDER HOLLY Performing Organization Address City/State/[place] [address] documented in this encounter [...] Provider: Cammie Gallego RN)1332 (Given - Provider: oDe Arnold RN)2200 (Given - Provider: Yesi Armendariz [...] 10 mg 0536 (Given - Provider: Cammie Gallego, PARMINDER) 0651 (Given - Provider: Emilee Abreu, [...] Provider: Doe Arnold, PARMINDER)1750 (Given - Provider: Deo Arnold RN)2033 (Given - Provider: Yesi Armendariz [...]
Routine documented in this encounter Care Teams Contractor General Engineering Relationship Specialty Start Date End Date Maria Del Carmen Nogueira PA PCP - General 01/27/14 10/05/19 [address] [place] [address] documented as of this encounter
--- OUTSIDE RECORDS SUMMARY | 2021-08-10 03:48 | XMS_ITS | Encounter Summary ---
:1970 Author Organization [facility] [place] [address] Care Team Providers Name Role Phone Maria Del Carmen Nogueira Primary Care Provider Encounter Details Date Type Department Care Team Description 09/15/2017 Hospital Encounter XRay at [facility] Tristan Gusman Bilateral chronic [address] [place] [address] Dr Minoo MD knee pain [facility] [address] [place] [phone] [place] [address] Social History Tobacco Use Types Packs/Day Years [...] EDT knee pain procedure a re in [facility] the result s BILAT section. documented in this encounter Results XR Knee Standing Alignment AP Lat [facility] Bilat (09/15/2017 8:40 AM EDT) Anatomical Region Laterality Modality Bilateral Digital Radiography Specimen (Source) Anatomical Location Collection Method / Collectio n Time Received Time / Laterality Volume Impressions 09/15/2017 9:07 AM EDT Medial deviation of the bilateral lower extremity weightbearing axes by approximately 3.5 cm each, with severe m wppfn-qrfyodrrnqu-zdovugtczai OA of both knees. Narrative 09/15/2017 9:07 [...] approximately 3.5 cm each, with severe m xzoqm-flkxxoyqenw-gagpxypzltp OA of both knees. Tristan Gusman MD IMG DX ORDERABLES documented in this encounter Visit Diagnoses Diagnosis Bilateral chronic knee pain Pain in joint, lower leg documented in this encounter Care Teams Die Engraving Supervisor Relationship Specialty Start Date End Date Maria Del Carmen Nogueira PA PCP - General 01/27/14 10/05/19 [address] [place] [address] documented as of this encounter
--- OUTSIDE RECORDS SUMMARY | 2021-08-10 03:48 | XMS_ITS | Encounter Summary ---
:1970 Author Organization [facility] [place] [address] Care Team Providers Name Role Phone Maria Del Carmen Nogueira Primary Care Provider Encounter Details Date Type Department Care Team Description 11/15/2018 Ancillary Procedure Radiology Library at Cathi Nogueira [facility] [address] [place] [address] [place] [address] [phone] Social History Tobacco Use Types Packs/Day Years [...] Organization Address City/State/ZIP Code Phon e Number [place], [place] documented in this encounter Visit Diagnoses Not on filedocumented in this encounter Care Teams Trailer Mechanic Relationship Specialty Start Date End Date Maria Del Carmen Nogueira PA PCP - General 01/27/14 10/05/19 [address] [place] [address] documented as of this encounter
--- OUTSIDE RECORDS SUMMARY | 2021-08-10 03:48 | XMS_ITS | Clinical Summary ---
:1970 Author Organization [facility] [place] [address] Care Team Providers Name Role Phone Unknown [...] Addre ss Type Group MEDICARE MEDICARE PART [id number] 2017-Prese [phone] [facility] [place] [address] [place] [id number] 2019-Prese [phone] [address] [place] [address] Advance Directives Latest Code Status on File Code Status Date Activated Date Inactivated Comments Full Code 11/15/2018 11:54 PM 11/19/2018 1:26 PM Does patient have capacity to make decision: No Code Status decision being made per: Attending of Record Care Teams Truck Driving Instructor Relationship Specialty Start Date End Date Unknown PCP - General 10/06/19 None
--- OUTSIDE RECORDS SUMMARY | 2021-08-10 03:48 | XMS_ITS | Encounter Summary ---
:1970 Author Organization [facility] [place] [address] Care Team Providers Name Role Phone Maria Del Carmen Nogueira Primary Care Provider Encounter Details Date Type Department Care Team Description 11/15/2018 Ancillary Procedure Radiology Library at Cathi Nogueira [facility] [address] [place] [address] [place] [address] [phone] Social History Tobacco Use Types Packs/Day Years [...] Organization Address City/State/ZIP Code Phon e Number [place], [place] documented in this encounter Visit Diagnoses Not on filedocumented in this encounter Care Teams Information Systems Security Manager Relationship Specialty Start Date End Date Maria Del Carmen Nogueira PA PCP - General 01/27/14 10/05/19 [address] [place] [address] documented as of this encounter
--- OUTSIDE RECORDS SUMMARY | 2021-08-10 03:48 | XMS_ITS | Encounter Summary ---
:1970 Author Organization [facility] [place] [address] Care Team Providers Name Role Phone Maria Del Carmen Nogueira Primary Care Provider Encounter Details Date Type Department Care Team Description 11/21/2018 Telephone Hospitalist at [facility] Lance Lea MD [facility] [place] [address] GENERAL INTERNAL [phone] [place] [address] (Wo rk) Social History Tobacco Use Types [...] for doxycyline from her last discharge from [facility] on 11/19/2018. Yana called Stephen in [place] and confirmed it was never received. According [...] on filedocumented in this encounter Care Teams Claims Customer Service Representative Relationship Specialty Start Date End Date Maria Del Carmen Nogueira PA PCP - General 01/27/14 10/05/19 [address] [place] [address] documented as of this encounter
--- OUTSIDE RECORDS SUMMARY | 2021-08-10 03:48 | XMS_ITS | Encounter Summary ---
:1970 Author Organization [facility] [place] [address] Care Team Providers Name Role Phone Maria Del Carmen Nogueira Primary Care Provider Encounter Details Date Type Department Care Team Description 03/03/2019 Hospital Encounter Mobile Sarah Gonzalezpolly brown heart Echocardiography MD Ghassan failure, unspecified [facility] [address] HOSPTIAL HF chronicity, [place], [place] [address] failure type [address] Social History Tobacco Use [...] . ?? (Age): 1970(48y) Med Rec#: ? [id number] ?Sex: ?F ? Site Loc: ? [facility] ??H t / Wt: ??157.48(cm)/115. Pt. Loc: ?Adult Floor ? BSA: ?2.12 Study Date: ?? 03/03/2019 ?Pt. Type: Inpatient Tape: ? Referring: MAURA Referring: KITA (Diag Imaging) Referring: KITARH(Med Rec) Referring: NV(Med/Surg) Reading: Stephen Blanton ??([id number]) Varnish Inspector: [facility] Varnish Inspector: [facility] Diagnosis: *Heart failure, unspecified (I50.9) BP: ? [...] Vmax ?0.58 ? m/sec ? MV deceleration htom712.78 ? m sec ? MV A-wave Vmax [...] ? Mid-Inferior ?Normal ? Mid-Inferoseptal ?Normal ? [place]-Septal ? Normal ? [place]-Anterior ? Normal ? [place]-Lateral ?Normal ? [place]-Inferior ? Normal ? [place]-Tip ?Normal ? This report has been electronically sign ed by: _ Stephen Blanton MD ? 03/03/2019 11:39 :02 Images reviewed and interpretation verif [facility] Cardiac Ultrasound Laboratory Procedure Note Stephen Blanton MD - 03/03/2019Formattin g of this note might be different from the original. Procedure: Transthoracic Echocardiogram Patient: DENNISE Renteria DOB(Age): 1970(48y) Med Rec#: [id number] Sex: F Site Loc: [facility] Ht / Wt: 157.48(cm)/115. Pt. Loc: Adult Floor BSA: 2.12 Study Date: 03/03/2019 Pt. Type: Inpatie nt Tape: Referring: GILBERTOYOLANDAMOMO Referring: KITA (Diag Imaging) Referring: KITA(Med Rec) Referring: EDENILSON(Med/Surg) Reading: Stephen Blanton ([id number]) Varnish Inspector: EDWARD Varnish Inspector: EDWARD Diagnosis: *Heart failure, unspecified (I50.9) BP: [...] MV E-wave Vmax 0.58 m/sec MV deceleration ohmu099.78 msec MV A-wave Vmax 0.61 m/sec MV [...] Normal Mid-Posterolateral Normal Mid-Inferior Normal Mid-Inferoseptal Normal [place]-Septal Normal [place]-Anterior Normal [place]-Lateral Normal [place]-Inferior Normal [place]-Tip Normal This report has been electronically sign ed by: _ Stephen Blanton MD 03/03/2019 11:39:02 Images reviewed and interpretation kit [facility] Cardiac Ultrasound Laboratory Ghassan Gonzalez MD ECHO ORDERABLES Performing Organization Address City/State/ZIP Code Phon e Number [facility] documented in this encounter Visit Diagnoses Diagnosis Congestive heart failure, unspecified HF chronicity, unspecified heart failure type documented in this encounter Care Teams Animal Shelter Supervisor Relationship Specialty Start Date End Date Maria Del Carmen Nogueira PA PCP - General 01/27/14 10/05/19 [address] [place] [address] documented as of this encounter
--- OUTSIDE RECORDS SUMMARY | 2021-08-10 03:48 | XMS_ITS | Encounter Summary ---
:1970 Author Organization [facility] [address] Care Team Providers Name Role Phone María Nogueira Primary Care Provider Encounter Details Date Type Department Care Team Description 02/25/2014 Hospital Encounter Ultrasound at [facility], DR NAVARRO [facility] Kendra Suárez MD [address] [place] [address] [place] [address] [place] [address] Social History Tobacco Use Types Packs/Day [...] ? pm) Patient Info ID #: ? [id number] ?: ??[birth year] (43 yrs) Name: ? ROSIBEL BOWDEN ?Visit Date: 02/25/2014 03:20 pm Performed By Performed By: ?Flor Mckenna RDMS Attending: ? Floridalma NUÑEZ, Guilherme Rodriguez Referred By: ? MARÍA GAY MD Service(s) Provided ??[facility] - Ultrasound - Transvaginal - [phone] ? [id number] Indications ??RLQ ABDOMINAL PAIN ??MENTRASAL ABN ------- [...] 10/2014 03:45 pm) Patient Info ID #: [id number] : [birth year] (43 y rs) Name: ROSIBEL BOWDEN Visit Date: 10/2014 03:20 pm Performed By Performed By: Flor Mckenna RDMS Attending: Guilherme Hedrick MD Referred By: MARÍA GAY MD Service(s) Provided [facility] - Ultrasound - Transvaginal - [phone] Indications RLQ ABDOMINAL PAIN MENTRASAL ABN ------- [...] on filedocumented in this encounter Care Teams Technical Professional Relationship Specialty Start Date End Date María Nogueira PA PCP - General 01/27/14 10/05/19 [address] [place] [address] documented as of this encounter
--- OUTSIDE RECORDS SUMMARY | 2021-08-10 03:48 | XMS_ITS | Encounter Summary ---
:1970 Author Organization [place] [address] Care Team Providers Name Role Phone Maria Del Carmen Nogueira Primary Care Provider Encounter Details Date Type Department Care Team Description 11/21/2018 Orders Only Hospitalist at [facility] Lance Lea, [facility] [place] [address] [facility] [phone] GENERAL INTERNAL MEDICINE [place] [phone] (Wo rk) Social History Tobacco Use Types [...] on filedocumented in this encounter Care Teams Picker Relationship Specialty Start Date End Date Maria Del Carmen Nogueira PA PCP - General 01/27/14 10/05/19 [address] [place] [address] documented as of this encounter
--- OUTSIDE RECORDS SUMMARY | 2021-08-10 03:48 | XMS_ITS | Encounter Summary ---
:1970 Author Organization [facility] [place] [address] Care Team Providers Name Role Phone Maria Del Carmen Nogueira Primary Care Provider Reason for Referral Consultation (Routine) - Closed Specialty Diagnoses / Procedures Referred By Contact Refer red To Contact Weight and Wellness Diagnoses Morbid obesity with BMI of 50.0-59.9, adult Tristan Gusman [facility] MD [address] [place], [place] ORTHOPAEDIC SURGERY [address] [place] [address] Referral ID Status Reason Start Date Expiration Date Visits V isits Requested Authorized [id number] Closed Consult, 09/15/2017 09/15/2018 1 1 Test & Treat Reason for Visit Reason Comments Left Knee Pain Right Knee Pain Consultation (Routine) - Specialty Diagnoses / Procedures Referred By Contact Refer red To Contact Orthopaedics Diagnoses Osteoarthritis, knees bilateral Maria Del Carmen Nogueira [facility] [address] [facility] [address] [facility] [address] [place] [address] [place] [address] Referral ID Status Reason Start Date Expiration Date Visits V isikris Requested Authorized [id number] Consult, 05/28/2017 05/28/2018 1 1 Test & Treat Connection Center Encounter Details Date Type Department Care Team Description 09/15/2017 Office Visit Orthopaedics at [facility] Tristan Gusman Chronic pain of both knees; [facility] MD Minoo Morbid obesity with BMI of 50.0-59.9, [place] [address] CENTER [phone] ORTHOPAEDIC SURGERY [place], [place] [address] Social History Tobacco Use Types [...] referred from VERNA Irving [address] [place] [address] I.D.: Rosibel Dinh is a 47 y.o. [...] less than $15,000 # People Supported 1 [place]ayan, , No, not Paraguayan// Race White Health Literacy A little bit Currently working No Not working because: Not working due to disability [facility] [employer] Response 09/15/2017 KOOS JR Scores 31.31 Spine [...] sitting Moderate Degree of difficutly: Bending to floor/picker feeder object Severe ALLERGIES Allergies Allergen Reactions ??? [...] Synvisc injection into her knees for severe vikf-sg-hjnq arthritis. She is plagued by knee pain [...] questions were answered. Tristan Gusman MD, MS Manager Of Revenue, Division of Adult Reconstructive Surgical Elastic KnitterSnag Grinder of Orthopaedics Department of Orthopaedics [place] [phone] [email or web address] documented in this encounter Plan of [...] obesity documented in this encounter Care Teams [employer] Rep Relationship Specialty Start Date End Date Maria Del Carmen Nogueira PA PCP - General 01/27/14 10/05/19 [address] [place] [address] documented as of this encounter
[2021-08-10 03:49] LABS: Source Nasal/Nares
--- OUTSIDE RECORDS SUMMARY | 2021-08-10 03:50 | XMS_ITS | Clinical Summary ---
:1970 Author Organization [facility] Address [address] [place] [address] Care Team Providers Name Role Phone Maria Del Carmen Nogueira PA-C Primary Care Provider [phone] Social History Tobacco Use Types Packs/Day Years Used Date Never Assessed Sex Assigned at Date Recorded Not on file Plan of Treatment Not on file Insurance Payer Benefit Plan / Subscriber ID Effective Phone Address T ype Group Dates MEDICARE MEDICARE A/B [id number] 2005-Prese [address] [place] [id number] [place] 1955 2019-Pres [address] [place] [facility] [id number] Rosibel Dinh Personal/Family Self [phone] (Home) [facility] [place] [id number] Rosibel Dinh Personal/Family Self [phone] (Home) [facility] [place] [id number] Rosibel Dinh Personal/Family Self [phone] (Home) [facility] [place], [place] [address] Rosibel Dinh Personal/Family Self [phone] (Home) [facility] [address] Care Teams Medical Administrative Assistant Relationship Specialty Start Date End Date Maria Del Carmen Nogueira PA-C PCP - General 03/23/14
--- OUTSIDE RECORDS SUMMARY | 2021-08-10 03:50 | XMS_ITS | Encounter Summary ---
:1970 Author Organization [facility] Address [address] [place] [address] Care Team Providers Name Role Phone Maria Del Carmen Nogueira PA-C Primary Care Provider [phone] Encounter Details Date Type Department Care Team Description 10/12/2019 Lab Requisition [facility] Starla Calvert En counter for other Pathology & A, POLICE PATROL OFFICER general examination Laboratory Medicine [address] [place], [place] [address] [facility] [address] [place] [address] Social History Tobacco Use Types Packs/Day Years [...] SERVICES types 16,18,31,33,35,39,45 ,51,52,56,58,59,66, and 68 by route aide mediated amplification. Specimen Pap Test - Cervix and/or Endocervix Performing Organization Address City/[facility]/ZIP Code Phon e Number [facility] [address] [place] [address] SERVICES PAP TEST (10/12/2019 11:15 EDT) Specimens A. Cervix and/or [facility] MEDICAL Endocervix , ThinPrep CENTER Imaging System with LABORATORY Manual Evaluation SERVICES Specimen Adequacy Satisfactory for [facility] MEDICAL Evaluation - CENTER transformation zone LABORATORY component present SERVICES General Negative for [facility] intraepithelial URBANA lesion or malignancy LABORATORY SERVICES Attestation . [facility] Electronically CENTER signed by SHARRI Salas CT(ASCP) on SERVICES 10/26/2019 at 151 2 HPV The result for the Human Pap illomavirus (HPV) Detection-High Risk Types is Negative. No E6 or E7 mRNA is detected from HPV types 16,18,31,33,35,39,45,51,52,56,58,59,66, and 68 by route aide mediated [facility] MEDICAL amplification.Testing was pe rformed on specimen [id number] and was resulted on 10/26/2019 1508 EDT by DONNIE, LAB INSTRUMENT RESULTS IN [facility] LABORATORY SERVICES Scanned Images [facility] SERVICES Specimen Pap Test - Cervix and/or Endocervix Performing Organization Address [facility] Phon e Number [facility] [address] [place] [address] SERVICES CHLAMYDIA/N. GONORRHOEAE AMPLIFIED RNA, THINPREP (10/12/2019 11:15 EDT) Pathologist Sig nature Gonococcus Result Negative Negative [facility] SERVICES Chlamydia Result Negative Negative [facility] SERVICES Specimen Pap Test - Cervix and/or Endocervix Performing Organization Address City/[facility]/ZIP Code Phon e Number [facility] [address] [place] [address] SERVICES documented in this encounter Visit Diagnoses Diagnosis Encounter for other general examination documented in this encounter Care Teams Buffer Inflated Pad Relationship Specialty Start Date End Date Maria Del Carmen Nogueira PA-C PCP - General 03/23/14 documented as of this encounter
--- OUTSIDE RECORDS SUMMARY | 2021-08-10 03:50 | XMS_ITS | Encounter Summary ---
:1970 Author Organization [facility] Address [address] [place] [address] Care Team Providers Name Role Phone Unavailable Primary Care Provider Unavailable Encounter Details Date Type Department Care Team Description 12/25/[address] [facility] - Jaycee Zarate FNP conversion [address] [place] [address] [place] [address] (Wo rk) Social History Tobacco Use Types [...] ? ROSIBEL BOWDEN ? Accession #: ? [id number] : ? 1970 (Age: 34) ??F ?Collect Date: ? 1109/2004 Location: ? [facility] ? Receive Date : ? 12/27/2004 Provider: ?JAYCEE CRONIN DIE TRY OUT WORKER STAMPING Copy to: ? Specimen/Source: ? ThinPrep Pap Test, Cervix/Endocervix, processed on [employer]ic ThinPrep Imaging System, with manual evaluation Last [...] Organization Address City/State/ZIP Code Phon e Number [facility] [address] [place] [address] SERVICES [facility] [address] [place] [address] documented in this encounter Visit Diagnoses Not on filedocumented in this encounter
--- OUTSIDE RECORDS SUMMARY | 2021-08-10 03:50 | XMS_ITS | Encounter Summary ---
:1970 Author Organization [facility] Address [address] [place] [address] Care Team Providers Name Role Phone Unknown, Provider Primary Care Provider Encounter Details Date Type Department Care Team Description 03/21/2014 Results Only [facility] PRISM Bia Hooper MD [phone] [place] [address] Social History Tobacco Use Types Packs/Day Years [...] (03/21/2014 8:22 EST) Pathology SURGICAL PATHOLOGY REPORT [facility] MEDICAL Report: Reports generated via electronic interface conta in original data; CENTER LABORATORY however they are lacking the format of the original re port. SERVICES Caution should be taken when reading/interpreting unfo rmatted reports. Name: ? ROSIBEL BOWDEN ? Accession #: ? [id number] ? : ? 1970 (Age: 43) ??F [...] e Number [facility] [address] [place] [address] SERVICES PAP TEST- RESULT ONLY (03/21/2014 0:00 EST) Pathology Report: CYTOPATHOLOGY REPORT [facility] Reports generated via electronic interface contain catracho ginal data; SERVICES however they are lacking the format of the original re port. Caution should be taken when reading/interpreting unfo rmatted reports. Name: ? ROSIBEL BOWDEN ? Accession #: ? [id number] ? : ? 1970 (Age: 43) ??F [...] types 16,18,31,3 3,35, 39,45,51,52,56,58,59,66, and 68 by boy's adviser media [employer]ark[employer]. Comments Document reviewed and electronically signed by: ? System Interface ? Report date: 04/06/2014 By the signature above, the attending physician certif ies that he/she has personally conducted a gross and/or microscopic examin ation of the described specimens and rendered or confirmed the above diagnosi s. End of Report Specimen Performing Organization Address City/State/[facility] Code Phon e Number [facility] [address] [place] [address] SERVICES documented in this encounter Visit Diagnoses Not on filedocumented in this encounter Care Teams Suture Winder Hand Relationship Specialty Start Date End Date Unknown, Provider, PCP - General 12/05/11 03/22/14 documented as of this encounter
--- OUTSIDE RECORDS SUMMARY | 2021-08-10 03:50 | XMS_ITS | Encounter Summary ---
:1970 Author Organization [facility] Address [address] [place] [address] Care Team Providers Name Role Phone Maira Del Carmen Nogueira PA-C Primary Care Provider [phone] Encounter Details Date Type Department Care Team Description 12/20/2014 Results Only [facility]- PRISM Jacob Burger, JUNIE [address] [place] [address] Social History Tobacco Use Types Packs/Day Years Used Date Never Assessed Sex Assigned at Date Recorded Not on file documented as of this encounter Plan of Treatment Not on filedocumented as of this encounter Procedures Procedure Name Priority Date/Time Associated Diagnosis Comme nts SUSCEPTIBILITY Routine 12/20/2014 17:22 EST Resul ts for this procedure are i n the results section . documented in this encounter Results SUSCEPTIBILITY (12/20/2014 17:22 EST) Pathologist Sig nature Result METHICILLIN RESISTANT STAPHYLOCOCCUS AUREUS [facility] Organism identification performed by client. LABORATORY SERVICES Specimen Wound Organism Antibiotic Method Susceptibility Methicillin resistant Oxacillin [facility] IN-HOUSE >=4: Resis tant staphylococcus aureus METHOD organism identification performed by client. Methicillin resistant Vancomycin [facility] IN-HOUSE 1: Suscept ible staphylococcus aureus METHOD organism identification performed by client. Methicillin resistant Erythromycin [facility] IN-HOUSE >=8: Resis tant staphylococcus aureus METHOD organism identification performed by client. Methicillin resistant Clindamycin [facility] IN-HOUSE <=0.5: Francesca ceptible staphylococcus aureus METHOD organism identification performed by client. Methicillin resistant Ciprofloxacin [facility] IN-HOUSE >=4: Resis tant staphylococcus aureus METHOD organism identification performed by client. Methicillin resistant Tetracycline [facility] IN-HOUSE <=2: Susce ptible staphylococcus aureus METHOD organism identification performed by client. Methicillin resistant Trimethoprim-Sulfamethox [facility] IN-HOUSE > =4: Resistant staphylococcus aureus azole METHOD organism identification performed by client. Performing Organization Address City/State/ZIP Code Phon e Number [facility] [address] [place] [address] SERVICES documented in this encounter Visit Diagnoses Not on filedocumented in this encounter Care Teams Financial Reporting Advisor Relationship Specialty Start Date End Date Maria Del Carmen Nogueira PA-C PCP - General 03/23/14 documented as of this encounter
--- OUTSIDE RECORDS SUMMARY | 2021-08-10 03:50 | XMS_ITS | Encounter Summary ---
:1970 Author Organization [facility] Address [address] [place] [address] Care Team Providers Name Role Phone Maria Del Carmen Nogueira PA-C Primary Care Provider [phone] Encounter Details Date Type Department Care Team Description 12/14/2015 Hospital Encounter [facility] [place] Unknown, Provider, [facility] [address] [facility] [phone] [place] [address] (Work) [phone] Social History Tobacco Use Types Packs/Day Years Used Date Never Assessed Sex Assigned at Date Recorded Not on file documented as of this encounter Discharge Diagnoses Diagnosis Z01.89 Encounter for other specified spe cial examinations-Z01.89[ICD-10-CM] documented in this encounter Discharge Disposition Disposition Code Departure Means Destination Home or Self [facility] documented in this encounter Plan of Treatment Not on filedocumented as of this encounter Visit Diagnoses Not on filedocumented in this encounter Care Teams Installation & Maintenance Executive Relationship Specialty Start Date End Date Maria Del Carmen Nogueira PA-C PCP - General 03/23/14 documented as of this encounter
--- OUTSIDE RECORDS SUMMARY | 2021-08-10 03:50 | XMS_ITS | Encounter Summary ---
:1970 Author Organization [facility] Address [address] [place] [address] Care Team Providers Name Role Phone Unavailable Primary Care Provider Unavailable Encounter Details Date Type Department Care Team Description 10/25/2003 Results Only [facility] - Jaycee Zarate FNP conversion [address] [place] [address] [place] [address] (Wo rk) Social History Tobacco Use Types [...] ? ROSIBEL BOWDEN ? Accession #: ? [id number] : ? 1970 (Age: 33) ??F ?Collect Date: ? 08/2003 Location: ? [facility] ? Receive Date : ? 10/27/2003 Provider: ?JAYCEE CRONIN ASSOCIATE PROFESSOR OF BIOSTATISTICS Copy to: ? Specimen/Source: ?ThinPrep Pap Test, [...] Code Phon e Number [facility] [address] [place] [address] SERVICES [facility] [address] [place] [address] documented in this encounter Visit Diagnoses Not on filedocumented in this encounter
--- OUTSIDE RECORDS SUMMARY | 2021-08-10 03:50 | XMS_ITS | Encounter Summary ---
:1970 Author Organization [facility] Address [address] [place] [address] Care Team Providers Name Role Phone Maria Del Carmen Nogueira PA-C Primary Care Provider [phone] Encounter Details Date Type Department Care Team Description 03/19/2021 Lab Requisition [facility] Outr Resulting Lab, Pathology & Laboratory Provider [facility] [address] [place], [place] [address] Social History Tobacco Use Types Packs/Day Years Used Date Never Assessed Sex Assigned at Date Recorded Not on file documented as of this encounter Plan of Treatment Not on filedocumented as of this encounter Procedures Procedure Name Priority Date/Time Associated Diagnosis Comme nts COVID-19 TEST [employer] Today 03/19/2021 14:00 LAB PCR EST COVID-19 TESTING Routine 03/19/2021 14:00 Results for this EST procedure are i n the results section. documented in this encounter Results COVID-19 TEST [employer] LAB PCR (03/19/2021 14:00 EST) Specimen Swab Performing Organization Address City/State/ZIP Code Phon e Number [facility] [address] [place] [address] SERVICES COVID-19 TESTING (03/19/2021 14:00 EST) COVID-19 rt-PCR Negative Negative [facility] Result Comment: CENTER LABORATORY This test [...] performed using the elier SARS-CoV-2 assay ([employer] on the Elier 6800 System Performing Lab [address] [facility] [facility] Lab [facility] SERVICES Specimen Swab Performing Organization Address City/State/ZIP Code Phon e Number [facility] [address] [place] [address] SERVICES documented in this encounter Visit Diagnoses Not on filedocumented in this encounter Care Teams Quality Technician Fiberglass Relationship Specialty Start Date End Date Maria Del Carmen Nogueira PA-C PCP - General 03/23/14 documented as of this encounter
--- OUTSIDE RECORDS SUMMARY | 2021-08-10 03:50 | XMS_ITS | Encounter Summary ---
:1970 Author Organization [facility] Address [address] [place] [address] Care Team Providers Name Role Phone Maria Del Carmen Nogueira PA-C Primary Care Provider [phone] Encounter Details Date Type Department Care Team Description 11/03/2019 Lab Requisition [facility] Santana Thornton MD Encounter for other Pathology & [address] [facility] general examination Laboratory Medicine [facility] [id number] [address] [facility] [phone] [place] [address] (Work) [phone] Social History Tobacco Use Types Packs/Day Years [...] 10:30 EDT) Final Diagnosis A. ENDOMETRIUM, BIOPSY: [facility] MEDICAL - Proliferative endometrium. [facility] Attestation There was significant [facility] MEDICAL Electr onically resident/fellow CENTER signed by Janice chery, involvement in the LABORATORY Dania Dumont MD diagnostic evaluation SERVICES on 10/19 at 1643 of this case. By the signature below, the attending physician certifies that they have personally conducted a gross and/or microscopic examination of the described specimens and rendered or confirmed the above diagnosis. Clinical History [facility] SERVICES Gross Description A. [facility] MEDICAL Received in formalin zoraida d with proper patient identification (initials S, L) and EMB is a 2.5 x 2.0 x 0.5 cm aggregate of clotted blood, blood-tinged mucus and red-brown tissue fragments. Submitted entirely in A1-A2. [facility] RAKESH BAZAN 11/03/2019 19:44 SERVICES Resident/Fellow: Jefferson Patel MD [facility] SERVICES Performing Lab [facility] SERVICES Scanned Images [facility] SERVICES Specimen Tissue - Entire endometrium (body struct ure) Performing Organization Address City/State/ZIP Code Phon e Number [facility] [address] [place] [address] SERVICES documented in this encounter Visit Diagnoses Diagnosis Encounter for other general examination documented in this encounter Care Teams Patrol Commander Relationship Specialty Start Date End Date Maria Del Carmen Nogueira PA-C PCP - General 03/23/14 documented as of this encounter
--- OUTSIDE RECORDS SUMMARY | 2021-08-10 03:50 | XMS_ITS | Encounter Summary ---
:1970 Author Organization [facility] Address [address] [place] [address] Care Team Providers Name Role Phone Unavailable Primary Care Provider Unavailable Encounter Details Date Type Department Care Team Description 08/15/2009 Results Only [facility] Tray Suárez MD Laboratory Services - [facility] [address] [place], [place] [address] [place] [address] [phone] Social History Tobacco Use Types Packs/Day Years [...] Organization Address City/State/ZIP Code Phon e Number [facility] [address] [place] [address] SERVICES [facility] [address] [place] [address] CYTOPATHOLOGY (08/15/2009 0:00 EDT) Pathology Report: CYTOPATHOLOGY REPORT ? [facility] ? LAB Reports generated via [employer] interface contain original data; ? however they are lacking the format of the original report. ? Caution should be taken when reading/interpreting unformatted reports. ? Name: ? DENNISE, ROSIBEL ? Accession #: ? [id number] ? : ? 1970 (Age: 39) ??F [...] Organization Address City/State/ZIP Code Phon e Number [facility] [address] [place] [address] SERVICES [facility] [address] [place] [address] documented in this encounter Visit Diagnoses Not on filedocumented in this encounter
--- OUTSIDE RECORDS SUMMARY | 2021-08-10 03:50 | XMS_ITS | Encounter Summary ---
:1970 Author Organization [facility] Address [address] [place] [address] Care Team Providers Name Role Phone Unavailable Primary Care Provider Unavailable Encounter Details Date Type Department Care Team Description 05/11/2008 Before PR[facility] - Tray Suárez MD Converted Visit [facility] MEDICAL ([facility]) [address] [place] [address] [address] [place] [address] (Wo rk) Social History Tobacco Use Types [...] Organization Address City/State/ZIP Code Phon e Number [facility] [address] [place] [address] SERVICES [facility] [address] [place] [address] CYTOPATHOLOGY (05/11/2008 0:00 EDT) Pathology Report: CYTOPATHOLOGY REPORT ? [facility] ? LAB Reports generated via [employer] interface contain original data; ? however they are lacking the format of the original report. ? Caution should be taken when reading/interpreting unformatted reports. ? Name: ? ROSIBEL BOWDEN ? Accession #: ? [id number] ? : ? 1970 (Age: 37) ??F [...] Organization Address City/State/ZIP Code Phon e Number [facility] [address] [place] [address] SERVICES [facility] [address] [place] [address] documented in this encounter Visit Diagnoses Not on filedocumented in this encounter
--- OUTSIDE RECORDS SUMMARY | 2021-08-10 03:50 | XMS_ITS | Encounter Summary ---
:1970 Author Organization [facility] Address [address] [place] [address] Care Team Providers Name Role Phone María Nogueira PA-C Primary Care Provider [phone] Encounter Details Date Type Department Care Team Description 12/07/2015 Results Only [facility]- PRISM Maribel Raoulmaría elena, DO [address] [facility] [address] [place], [place] [id number] (Wo rk) Social History Tobacco Use Types Packs/Day Years Used Date Never Assessed Sex Assigned at Date Recorded Not on file documented as of this encounter Plan of Treatment Not on filedocumented as of this encounter Procedures Procedure Name Priority Date/Time Associated Diagnosis Comme [facility] SURGICAL PATHOLOGY Routine 12/07/2015 13:52 Resul ts for this EDT procedure are i n the results section. documented in this encounter Results SURGICAL PATHOLOGY (12/07/2015 13:52 EDT) Pathology Report: SURGICAL PATHOLOGY REPORT [facility] Reports generated via electronic interface contain catracho ginal data; LABORATORY however they are lacking the format of the original re port. SERVICES Caution should be taken when reading/interpreting unfo rmatted reports. Name: ? ROSIBEL BOWDEN ? Accession #: ? [id number] ? : ? 1970 (Age: 45 ) [...] brown-black cholelith is pres ent. ? Two outside energy sales representatives se ctions including the entire thickened region and the inked en face cystic duct margin are submitted in 1. Dr. Krishna 12/08/2015 4:05 PM End of Report Specimen Performing Organization Address City/State/ZIP Code Phon e Number [facility] [address] [place] [address] SERVICES documented in this encounter Visit Diagnoses Not on filedocumented in this encounter Care Teams Cosmetics Demonstrator Relationship Specialty Start Date End Date María Nogueira PA-C PCP - General 03/23/14 documented as of this encounter
--- OUTSIDE RECORDS SUMMARY | 2021-08-10 03:50 | XMS_ITS | Encounter Summary ---
:1970 Author Organization [facility] Address [address] [place] [address] Care Team Providers Name Role Phone Unavailable Primary Care Provider Unavailable Encounter Details Date Type Department Care Team Description 08/28/2006 Results Only [facility] - Tray Wheeler MD [facility] [address] [facility] [address] [place] [address] [place] [address] [phone] (Wo rk) Social History Tobacco Use Types Packs/Day Years Used Date Never Assessed Sex Assigned at Date Recorded Not on file documented as of this encounter Plan of Treatment Not on filedocumented as of this encounter Procedures Procedure Name Priority Date/Time Associated Diagnosis Comme nts CYTOPATHOLOGY Routine 08/28/2006 0:00 EDT Results for this procedure are i n the results section . documented in this encounter Results CYTOPATHOLOGY (08/28/2006 0:00 EDT) Pathology Report: CYTOPATHOLOGY REPORT [facility] Reports generated via electronic interface contain catracho ginal data; however they are lacking the format of the original re port. Caution should be taken when reading/interpreting unfo rmatted reports. Name: ? ROSIBEL BOWDEN ? Accession #: ? [id number] : ? 1970 (Age: 36) ??F ?Collect Date: ? 08/17 Location: ? [facility] ? Receive Date : ? 09/01/2006 Provider: ?TRAY BRUNNER MD Copy to: ? Specimen/Source: ? ThinPrep Pap Test, Cervix/Endocervix, processed on [employer] ThinPrep Imaging System, with manual evaluation Last Menstrual Period: ? 08/19/06 Hormonal/Contraceptive Status: ? Tubal ligation: BTL Treatment History: ? Cone biopsy: 2001 ? SPECIMEN ADEQUACY ? Satisfactory for Evaluation - transformation zone component present GENERAL CATEGORIZATION ? Negative for Intraepithelial Lesion or Malignan cy ? Document reviewed and electronically signed by: ? India Jackson, [facility](ASCP) ? Report Date: ??09/05/2006 08:42 End of Report Specimen Performing Organization Address City/State/ZIP Code Phon e Number [facility] [address] [place] [address] SERVICES [facility] [address] [place] [address] documented in this encounter Visit Diagnoses Not on filedocumented in this encounter
--- OUTSIDE RECORDS SUMMARY | 2021-08-10 03:50 | XMS_ITS | Encounter Summary ---
:1970 Author Organization [facility] Address [address] [place] [address] Care Team Providers Name Role Phone Unavailable Primary Care Provider Unavailable Encounter Details Date Type Department Care Team Description 12/03/2011 Results Only [facility] Ghassan Prado , Laboratory Services - [address] AJ REINOSO [address] [place] [address] [place], [place] [id number] [phone] Social History Tobacco Use Types Packs/Day Years Used Date Never Assessed Sex Assigned at Date Recorded Not on file documented as of this encounter Plan of Treatment Not on filedocumented as of this encounter Procedures Procedure Name Priority Date/Time Associated Diagnosis Comme [facility] SURGICAL PATHOLOGY Routine 12/03/2011 0:00 EDT Re [...] ? ROSIBEL BOWDEN ? Accession #: ? [id number] ? : ? 1970 (Age: 41) ??F [...] specimens are submitted intact as (B). ??(Denice balbuena)/[facility] End of Report Specimen Performing Organization Address City/State/ZIP Code Phon e Number [facility] [address] [place] [address] SERVICES [facility] [address] [place] [address] documented in this encounter Visit Diagnoses Not on filedocumented in this encounter
[2021-08-10 04:50] LABS: COVID-19 PCR Negative (Negative)
--- NOTE | 2021-08-10 05:52 | DI.VRAD_ITS ---
PROCEDURE INFORMATION: Exam: XR Chest Exam date and time: 08/10/2021 2:48 AM Age: 51 years old Clinical indication: Shortness of breath; Additional info: SOB TECHNIQUE: Imaging protocol: Radiologic exam of the chest. Views: 1 view. COMPARISON: XR PORTABLE CHEST AP 01/14/2021 6:54 PM FINDINGS: Lungs: Interstitial and central pulmonary vascular prominence No consolidation. Pleural spaces: Possible small left pleural effusion. No pneumothorax. Heart/Mediastinum: Heart at least top normal in size. Bones/joints: Degenerative changes. IMPRESSION: 1. Findings most consistent with the presence of congestive heart failure/fluid overload. 2. Possible small left pleural effusion. Dictated and Authenticated by: Hector Rayo MD. Ordering:JL Paulino MD
--- NOTE | 2021-08-10 06:11 | W.PM.HP.N ---
Date of service: 08/10/21 Time of Service: 06:11 Assessment and Plan Assessment and plan (1) Acute respiratory failure with hypoxia and hypercarbia: Start date: 08/10/21 Status: Acute Assessment and plan: This is a 51-year-old female patient who presents with acute respiratory failure with hypoxemia and hypercarbia. She has obstructive sleep apnea but does not wear CPAP at home. She does smoke at home. She has COPD exacerbation as well and is responding well to aggressive respiratory therapy with IV Solu-Medrol and positive pressure treatment with O2 supplementation. She also has responded to diuresis with a history of CHF. She will need an updated echocardiogram. She is a DNI but wants CPR. We will trend lab and continue aggressive treatment with patient receiving magnesium with magnesium levels to be followed up. (2) Acute exacerbation of CHF (congestive heart failure): Start date: 08/10/21 Status: Acute Assessment and plan: Continue IV Lasix and trend labs with electrolyte supplementation as needed. Update echocardiogram if possible. (3) COPD with acute exacerbation: Start date: 08/10/21 Status: Acute Assessment and plan: As above we will continue positive pressure treatment with O2 supplementation and aggressive nebulizer treatments along with IV Solu-Medrol. (4) Hypomagnesemia: Start date: 08/10/21 Status: Acute Assessment and plan: Patient did receive 2 g of magnesium and will we will follow-up magnesium level continue to supplement as needed. (5) HELEN (obstructive sleep apnea): Status: Chronic Assessment and plan: Continue BiPAP with Ativan as needed to help patient tolerate with some element of claustrophobia not allowing patient to treat her self at home. Long-term she needs to address her home treatment and comfort with being treated at home. (6) Diabetes mellitus: Status: Chronic Assessment and plan: Before meals and at bedtime glucometers with short acting insulin coverage while in the hospital. (7) Tobacco abuse: Status: Chronic Assessment and plan: Nicotine patch if needed. Long-term patient should stop smoking. History of Present Illness History of Present Illness Chief Complaint: Progressive dyspnea at rest Narrative: This is a 51-year-old female patient with history of COPD and HELEN on CPAP at night but does not wear her device, who reported to the ED for evaluation of progressive dyspnea at rest. She had hypoxemia at home with her pulse oximeter readings in the 70s on home O2. She had worsening symptoms over 3 days with dyspnea and cough. She denied any fever. In the ED she was visibly short of breath speaking in short sentences with 2-3 words. She also had audible wheezing. She had diminished breath sounds which improved with nebulizer and bedside ultrasound showed no overt CHF though the patient had known CHF. She was initiated on Solu-Medrol, Levaquin IV and Lasix IV with improvement. When I saw the patient she was on BiPAP but was not tolerating this well and was given Ativan which did help her to relax. On BiPAP she appeared more comfortable and was oxygenating well in the 90% range. The patient is a DNI but would want CPR. She does have an elevated PCO2 and was admitted for treatment of acute respiratory failure with hypoxemia and hypercarbia. Patient appears very sedentary and obese with short stature and nonpitting peripheral edema but was awake and speaking in more clear sentences at the time I evaluated her. Review of Systems Narrative: 13 point review of systems otherwise unrevealing or stable. [facility] All Active Problems (Updated 08/10/21 @ 23:28 by Douglas Aquino) Pneumonia (Acute) Acute on chronic respiratory failure with hypoxia and hypercapnia (Acute) Discharge planning issues (Acute) DVT prophylaxis (Acute) Acute respiratory failure with hypoxia and hypercarbia (Acute) Hypoxia (Acute) Contraceptive management (Acute) GERD (gastroesophageal reflux disease) (Chronic) Abnormal uterine bleeding (Acute) Mood disorder (Acute) Hypercalcemia (Acute) Hypomagnesemia (Acute) HTN (hypertension) (Chronic) Discharge planning issues (Acute) HELEN (obstructive sleep apnea) (Chronic) DVT prophylaxis (Acute) Acute exacerbation of CHF (congestive heart failure) (Acute) Tobacco abuse (Chronic) Diabetes mellitus (Chronic) COPD with acute exacerbation (Acute) Primary osteoarthritis of both knees (Chronic 05/01/15) Medical History Chronic atrophic candidosis Depression with anxiety Diabetes mellitus type 2 in obese Hyperlipidemia Morbid obesity HELEN (obstructive sleep apnea) Smoker Surgical History Bilat partial saplinectomy Cholecystectomy (12/07/15) [facility]AROSCOPIC [facility] Ligation of fallopian tube Open Carpal Tunnel release Repair of umbilical hernia Tonsillectomy and adenoidectomy Family History Other COPD (chronic obstructive pulmonary disease) Cancer Social History Smoking/Tobacco Use Status: Current every day Tobacco Type: cigarettes Quit status: considering quitting Second Hand Exposure: Yes Smoking risk assessment performed?: Yes Alcohol Intake: never Drug use: Never Substance use type: does not use, opiates and painkillers Current gender identity: female Do you feel safe at home: Yes Do you feel safe in your relationship?: Yes Additional Social history: Lives with her male partner, who also smokes. Disabled. History History 5 Para 2 Hx # Term Pregnancies Multiple births Hx # Pregnancies Ectopic pregnancies AB induced Hx Number of Living Children AB spontaneous Meds Allergies and Home Medications Allergies Allergy/AdvReac Type Severity Reaction Status Date / Time amoxicillin Allergy Skin Rash Unverified 10/29/19 10:29 Sulfa (Sulfonamide Allergy Unverified 10/29/19 10:29 Antibiotics) Antiobiotics AdvReac Intermediate Rash,vomitt Uncoded 10/29/19 10:29 ing Home Medications Medication Instructions Recorded Confirmed Type albuterol sulfate 90 mcg/actuation 1 - 2 puff inhalation Q4H PRN 03/21/14 01/14/21 History aerosol inhaler desvenlafaxine succinate 100 mg 100 mg PO DAILY 03/21/14 01/14/21 History tablet,extended release 24 hr (Pristiq) aripiprazole 10 mg tablet (Abilify) 10 mg PO DAILY 04/22/17 01/14/21 History atenolol 50 mg tablet 50 mg PO DAILY 04/22/17 01/14/21 History fenofibrate 160 mg tablet 160 mg PO DAILY 04/22/17 01/15/21 History gabapentin 300 mg capsule 900 mg PO HS 04/22/17 01/15/21 History nystatin 500 million unit oral 1 ea PO TID PRN 04/22/17 01/15/21 History powder pantoprazole 40 mg granules 40 mg PO DAILY 04/22/17 01/14/21 History delayed-release for susp in packet (Protonix) lisinopril 20 mg tablet 40 mg PO DAILY 04/23/17 01/14/21 History naloxone 4 mg/actuation nasal 4 mg intranasal PRN PRN excessive 04/29/18 01/14/21 History spray (Narcan) sedation oxycodone-acetaminophen 10 mg-325 1 tab PO Q4H PRN Pain 04/29/18 01/14/21 History mg tablet methylphenidate HCl 20 mg tablet 20 mg PO BID 11/15/18 01/14/21 History (Ritalin) rosuvastatin 40 mg tablet 40 mg PO HS 04/12/19 01/14/21 History furosemide 20 mg tablet 20 mg PO DAILY PRN Edema 01/14/21 01/14/21 History bupropion HCl 200 mg tablet,12 hr 200 mg PO QAM 01/15/21 01/15/21 History sustained-release diltiazem HCl 120 mg capsule,24 120 mg PO DAILY 01/15/21 01/15/21 History hr,extended release fluticasone propionate 230 1 puff inhalation BID 01/15/21 01/15/21 History mcg-salmeterol 21 mcg/actuation HFA inhaler (Advair HFA) insulin aspart U-100 100 unit/mL 0 sliding scale dose subcut AC 01/15/21 01/15/21 History (3 mL) subcutaneous pen (Novolog Flexpen U-100 Insulin aspart) insulin detemir U-100 100 unit/mL 44 unit subcut DAILY 01/15/21 01/15/21 History (3 mL) subcutaneous pen (Levemir FlexTouch U-100 Insulin) sitagliptin 100 mg tablet (Januvia) 100 mg PO DAILY 01/15/21 01/15/21 History cefpodoxime 200 mg tablet 200 mg PO BID #14 tabs 01/16/21 Rx prednisone 20 mg tablet 40 mg PO DAILY #10 tabs 01/16/21 Rx Exam Narrative Exam Narrative: General: Patient appears older than stated age, short stature and morbidly obese especially over the trunk. She is awake and in moderate distress with BiPAP in place having some claustrophobia. She is alert and oriented to person and place at least. HEENT: Normocephalic, poor dentition, oropharynx with dry mucosa. Eyes with pupils equal and reactive light symmetrically, extraocular movement intact and sclera anicteric. Neck: Supple without JVD. Lungs: Poor aeration with increased expiratory phase and expiratory wheeze diffusely, rhonchi with inspiration but no focalizing rales. Heart: Regular rate and rhythm with no appreciable murmur or gallop. Breast: Exam deferred. Abdomen: Obese contour, soft and nontender to palpation with no palpable hepatosplenomegaly. Genitalia/rectal: Exam deferred. Extremity: Without cyanosis or clubbing, nonpitting edema bilaterally. Skin: Pale, warm and dry. Neuro: Cranial nerves II through XII gross intact, no focalizing motor deficits. Psych: Flat affect with depressed mood and patient is anxious. Slightly pressured speech. No abnormal thought processes. Remote and recent memory grossly intact. Results Imaging Imaging Studies: Exam: XR Chest Exam date and time: 08/10/2021 2:48 AM Age: 51 years old Clinical indication: Shortness of breath; Additional info: SOB TECHNIQUE: Imaging protocol: Radiologic exam of the chest. Views: 1 view. COMPARISON: XR PORTABLE CHEST AP 01/14/2021 6:54 PM FINDINGS: Lungs: Interstitial and central pulmonary vascular prominence No consolidation. Pleural spaces: Possible small left pleural effusion. No pneumothorax. Heart/Mediastinum: Heart at least top normal in size. Bones/joints: Degenerative changes. IMPRESSION: 1. Findings most consistent with the presence of congestive heart failure/fluid overload. 2. Possible small left pleural effusion. Dictated and Authenticated by: Hector Rayo MD. Labs Result diagrams: 08/10/21 06:55 08/10/21 06:55 Labs: Laboratory Results - last 24 hr 08/10/21 08/10/21 08/10/21 01:58 01:58 01:58 WBC 8.82 RBC 5.65 H Hgb 16.7 H Hct 52.1 H MCV 92 MCH 29.6 MCHC 32.1 RDW 14.7 H Plt Count 175 MPV 9.3 Immature Gran % 0.5 Neutrophils % 75.6 Lymphocytes % 12.0 Monocytes % 11.6 Eosinophils % 0.0 Basophils % 0.3 Nucleated RBC % 0.0 Absolute Neutrophils 6.67 Absolute Lymphocytes 1.06 L Absolute Monocytes 1.02 H Absolute Eosinophils 0.00 Absolute Basophils 0.03 VBG pH 7.26 L VBG pCO2 71 H* VBG pO2 44 VBG HCO3 32 H VBG Total CO2 29 VBG O2 Saturation 82 VBG Base Excess 5 H Sodium 137 Potassium 4.0 Chloride 99 Carbon Dioxide 31.6 Anion Gap 6.4 BUN 10 Creatinine 0.6 Estimated GFR/1.73 m2 >= 60.00 Glucose 214 H Calcium 9.7 Magnesium 1.5 L Total Bilirubin 0.5 AST 18 ALT 13 L Alkaline Phosphatase 77 Troponin I < 50 NT-Pro-B Natriuret Pep 403 H Total Protein 8.2 Albumin 3.8 COVID-19 Source SARS-CoV-2 (PCR) 08/10/21 08/10/21 02:00 03:00 WBC RBC Hgb Hct MCV MCH MCHC RDW Plt Count MPV Immature Gran % Neutrophils % Lymphocytes % Monocytes % Eosinophils % Basophils % Nucleated RBC % Absolute Neutrophils Absolute Lymphocytes Absolute Monocytes Absolute Eosinophils Absolute Basophils VBG pH 7.30 L VBG pCO2 64 H* VBG pO2 65 VBG HCO3 32 H VBG Total CO2 28 VBG O2 Saturation 94 VBG Base Excess 5 H Sodium Potassium Chloride Carbon Dioxide Anion Gap BUN Creatinine Estimated GFR/1.73 m2 Glucose Calcium Magnesium Total Bilirubin AST ALT Alkaline Phosphatase Troponin I NT-Pro-B Natriuret Pep Total Protein Albumin COVID-19 Source Nasal/Nares SARS-CoV-2 (PCR) Negative Last Vital Signs Temp 37.3 C 08/10/21 04:50 Pulse 113 H 08/10/21 04:50 Resp 34 H 08/10/21 04:50 BP 159/93 H 08/10/21 04:50 Pulse Ox 73 L 08/10/21 04:50
[2021-08-10] MEDS: Heparin 5,000 UNITS/ML VIAL 5000 UNITS SC ×3 (06:50→21:12)
[2021-08-10 07:06] LABS: BE (Venous) 6 mmol/L (-2-3); HCO3 (Venous) 32 mmol/L (23-28); O2 Sat (Venous) 97 %; TCO2 (Venous) 28 mmol/L (24-29); pCO2 (Venous) 60 mmHg (41-51); pH (Venous) 7.34 (7.31-7.41); pO2 (Venous) 88 mmHg
[2021-08-10 07:07] LABS: Abs Immature Grans 0.08 10^3/uL (0.0-0.06); Absolute Basophil Count 0.02 10^3/uL (0.0-0.2); Absolute Lymphocyte Count 0.54 10^3/uL (1.2-3.4); Absolute Monocyte Count 0.19 10^3/uL (0.1-0.8); Absolute Neutrophil Count 6.11 10^3/uL (1.2-6.7); Basophils % 0.3; HCT 49.7 % (36.0-46.0); HGB 15.7 g/dL (11.2-15.7); Immature Grans % 1.2; Lymphocytes % 7.8; MCH 29.3 pg (27.0-33.0); MCHC 31.6 % (32.0-36.0); MCV 93 fL (80-95); MPV 9.8 fL (8.0-11.0); Monocytes % 2.7; Platelet Count 172 10^3/uL (130-400); RBC 5.35 10^6/uL (3.93-5.22); RDW 14.5 % (11.7-14.6); RDW-SD 49.1 fL; WBC 6.94 10^3/uL (4.4-10.8)
[2021-08-10 07:38] LABS: ALT 14 U/L (14-59); AST 22 U/L (15-37); Albumin 3.4 g/dL (3.4-5.0); Alkaline Phosphatase 70 U/L (46-116); Anion Gap 7.7 mmol/L (3-11); BUN 11 mg/dL (7-18); Bilirubin, Total 0.5 mg/dL (0.2-1.0); CO2 29.3 mmol/L (21.0-32.0); CREATININE 0.6 mg/dL (0.55-1.02); Calcium 9.6 mg/dL (8.5-10.1); Chloride 101 mmol/L (98-107); Glucose 221 mg/dL (74-106); Magnesium 1.8 mg/dL (1.8-2.4); Potassium 4.1 mmol/L (3.5-5.1); Sodium 138 mmol/L (136-145); TSH (W/Ref FT4) 0.67 uIU/mL (0.36-3.74); Total Protein 7.7 g/dL (6.4-8.2); Troponin I < 50 ng/L (<or=60)
--- NOTE | 2021-08-10 07:45 | PUCC_ITS ---
General Date of Service Date of service: 08/10/21 Time of Service: 07:45 Reason for Admission to ICU: COPD Exacerbation Assessment and Plan Assessment and plan (1) Acute on chronic respiratory failure with hypoxia and hypercapnia: Status: Acute (2) COPD with acute exacerbation: Status: Acute (3) Diabetes mellitus: Status: Chronic (4) Tobacco abuse: Status: Acute (5) Acute exacerbation of CHF (congestive heart failure): Status: Acute (6) HELEN (obstructive sleep apnea): Status: Suspected (7) HTN (hypertension): Status: Chronic (8) Hypomagnesemia: Status: Acute (9) GERD (gastroesophageal reflux disease): Status: Chronic Assessment and plan: This is a chronically ill 51 yo who is admitted to the ICU for COPD and CHF exacerbations, likely in the setting of a pneumonia. She does have HELEN, albeit very mild and just using nocturnal oxygen to treat this (failed CPAP therapy). We discussed the importance of resting her diaphragm considering what is going on. Her BiPAP settings were quit high and so I decreased these to try to improve compliance. We discussed taking breaks off of BiPAP throughout the day and allowing eating and getting out of bed, but to really try to wear it as much as possible. I think she would benefit from Spiriva in addition to her home Advair. This is her second COPD exacerbation in the year and she would qualify for either chronic azithromycin or roflumilast - she has no contraindications to either. She is open and willing to take part in the RELIANCE study, so I will refer her for this to start the enrollment process. She used to follow with Dr. Lyn and should have continued pulmonary follow up so will arrange for a clinic visit with her. (10) Pneumonia: Status: Acute Recommendations Pulmonary: COPD Exacerbation - continue home Advair (Symbicort while in hospital) - rinse mouth after use - recommend adding Spiriva - recommend she be discharged on this please - changed IV Solu-medrol to 40mg PO prednisone daily - recommend the following prednisone taper: - 40mg for 5 days, 30mg for 3 days, 20mg for 3 days, 10mg for 3 days, 5mg for 3 days - will start process for enrollment into RELIANCE trial - pulmonary follow up - I will arrange Acute on chronic hypoxic and hypercapneic respiratory failure - BiPAP at night and during the day as tolerated (breaks for comfort and eating) - O2 for sats between 88-92% - recommend Acapella and IS Tobacco use - recommend cessation - I will address this further in outpatient follow up HELEN - not on CPAP at home ( could not tolerate and pretty mild disease - AHI 6) Cardiac: CHF Exacerbation - diuresis for 1-2 liters negative in 24 hours - on atenolol - echo on Friday HTN - on lisinopril and diltiazem Renal: No acute concerns I&O: Intake & Output 08/07/21 08/08/21 08/09/21 08/10/21 23:59 23:59 23:59 23:59 Output Total 1000 / 1000 Balance -1000 / -1000 Weight 115 kg Daily Fluid Goal:: Negative 1-2 L GI Nutrition: Ok for diet Infectious Disease: Pneumonia - on Levaquin - continue for 7 day course - blood and sputum cultures ordered - Strep pneumo and legionella urine antigens ordered Hematologic: No acute concerns Neurologic: No acute concerns Endocrine: Diabetes - sugars not at goal (140-180) - may need to adjust given steroids Lines: PIV Moraes Prophylaxis: PPI - home med heparin Code Status: Resuscitation Status DNI Subjective Critical and life-threatening events over the past 24 hours: This is a 51 yo female who is admitted for COPD and CHF exacerbation. She also has HELEN, although she tells me she does not, albeit it is very mild. Per sleep providers visit: Rosibel reportedly had a PSG at [facility] in 2005 with poor sleep efficiency and no REM. That study did not reveal any sleep apnea (AHI 2/hr). She had a HST 07/2019 (after declining a PSG) it was a suboptimal study because there was no oximetry data. AHI was 6.5/hr. I ordered CPAP 6-16 cm last visit. She attempted this a handful of times for a few minutes and was never able to tolerate it for more than a few minutes because even a pressure of 4 cm was too strong. A BiPAP would not add any benefit because she would have an even higher pressure on inhalation and the same pressure to exhale against even at the lowest setting. She reports her teeth are not in good condition so an oral appliance is not a good option and I would not recommend ENT surgery given how mild her HELEN was. She is now sleeping on a wedge pillow and finds her sleep is more sound. She is using the 02 at 2 lpm. I will check an overnight oximetry on 2 lpm to ensure adequate oxygenation. Drowsy driving precautions were reviewed. She continues to take Ritalin 20 mg QAM and noon prescribed by another provider. In the ED she was found to be in acute on chronic hypoxic and hypercapnic respiratory failure with CO2 retention and so was placed on BiPAP. As per with prior trials of CPAP, she did not tolerate the pressure and had it off at the time of my evaluation this morning. She was doing better but was still quite short of breath. Off of the BiPAP she required 4 LPM to maintain O2 sats between 88-92%. Her CXR did find interstitial markings consistent with volume overload as well as a likely RML infiltrate. She was started on steroids and antibiotics as well as Lasix. She is on Advair at home for her COPD in addition to albuterol. She is a current smoker. Exam Narrative Exam Narrative: Gen: NAD, normal respiratory effort, obese HENT: PERRL, nasal turbinates normal without erythema or inflammation, moist oral mucosa, Mallampati 2, No LAD or JVD Chest: Moderate respiratory distress, normal appearance of chest, clear to auscultation bilaterally, mild crackles at bases, no wheezes, accessory muscle use Heart: regular rate and rhythym, no murmurs, rubs or gallops Abdomen: Non-distended, soft, non tender Extremities: No clubbing, + edema bilateral legs, cyanosis, rashes Neuro: AAOx3 , non focal Psych: cooperative, appropriate mental affect Most Recent VS/Results Last Vital Signs Temp 37.3 C 08/10/21 04:50 Pulse 92 H 08/10/21 06:01 Resp 37 H 08/10/21 06:50 BP 146/89 H 08/10/21 06:01 Pulse Ox 73 L 08/10/21 04:50 Laboratory Results - last 24 hr 08/10/21 08/10/21 08/10/21 01:48 01:58 01:58 WBC 8.82 RBC 5.65 H Hgb 16.7 H Hct 52.1 H MCV 92 MCH 29.6 MCHC 32.1 RDW 14.7 H Plt Count 175 MPV 9.3 Immature Gran % 0.5 Neutrophils % 75.6 Lymphocytes % 12.0 Monocytes % 11.6 Eosinophils % 0.0 Basophils % 0.3 Nucleated RBC % 0.0 Absolute Neutrophils 6.67 Absolute Lymphocytes 1.06 L Absolute Monocytes 1.02 H Absolute Eosinophils 0.00 Absolute Basophils 0.03 VBG pH VBG pCO2 VBG pO2 VBG HCO3 VBG Total CO2 VBG O2 Saturation VBG Base Excess Sodium 137 Potassium 4.0 Chloride 99 Carbon Dioxide 31.6 Anion Gap 6.4 BUN 10 Creatinine 0.6 Estimated GFR/1.73 m2 >= 60.00 Glucose 214 H Calcium 9.7 Magnesium 1.5 L Total Bilirubin 0.5 AST 18 ALT 13 L Alkaline Phosphatase 77 Troponin I Cancelled < 50 NT-Pro-B Natriuret Pep 403 H Total Protein 8.2 Albumin 3.8 COVID-19 Source SARS-CoV-2 (PCR) 08/10/21 08/10/21 08/10/21 01:58 02:00 03:00 WBC RBC Hgb Hct MCV MCH MCHC RDW Plt Count MPV Immature Gran % Neutrophils % Lymphocytes % Monocytes % Eosinophils % Basophils % Nucleated RBC % Absolute Neutrophils Absolute Lymphocytes Absolute Monocytes Absolute Eosinophils Absolute Basophils VBG pH 7.26 L 7.30 L VBG pCO2 71 H* 64 H* VBG pO2 44 65 VBG HCO3 32 H 32 H VBG Total CO2 29 28 VBG O2 Saturation 82 94 VBG Base Excess 5 H 5 H Sodium Potassium Chloride Carbon Dioxide Anion Gap BUN Creatinine Estimated GFR/1.73 m2 Glucose Calcium Magnesium Total Bilirubin AST ALT Alkaline Phosphatase Troponin I NT-Pro-B Natriuret Pep Total Protein Albumin COVID-19 Source Nasal/Nares SARS-CoV-2 (PCR) Negative 08/10/21 08/10/21 06:55 06:55 WBC 6.94 RBC 5.35 H Hgb 15.7 Hct 49.7 H MCV 93 MCH 29.3 MCHC 31.6 L RDW 14.5 Plt Count 172 MPV 9.8 Immature Gran % 1.2 Neutrophils % 88.0 Lymphocytes % 7.8 Monocytes % 2.7 Eosinophils % 0.0 Basophils % 0.3 Nucleated RBC % 0.0 Absolute Neutrophils 6.11 Absolute Lymphocytes 0.54 L Absolute Monocytes 0.19 Absolute Eosinophils 0.00 Absolute Basophils 0.02 VBG pH 7.34 VBG pCO2 60 H VBG pO2 88 VBG HCO3 32 H VBG Total CO2 28 VBG O2 Saturation 97 VBG Base Excess 6 H Sodium Potassium Chloride Carbon Dioxide Anion Gap BUN Creatinine Estimated GFR/1.73 m2 Glucose Calcium Magnesium Total Bilirubin AST ALT Alkaline Phosphatase Troponin I NT-Pro-B Natriuret Pep Total Protein Albumin COVID-19 Source SARS-CoV-2 (PCR) Review of Systems All systems reviewed & are unremarkable except as noted in HPI and below Time spent with patient Time spent in Critical Care: 45 Time spent in Critical care included: Coordination of care, Chart review, Documenting critically ill care, Time at immediate bedside and Discussing critically ill care with other medical staff
[2021-08-10 07:52] LABS: Lab Add On Test DONE
[2021-08-10] MEDS: Atenolol 50 MG TAB PO (07:55)
[2021-08-10] MEDS: Acetaminophen 325 MG TAB 650 MG PO (07:55)
[2021-08-10] MEDS: Lisinopril 20 MG TAB PO (07:56)
[2021-08-10] MEDS: dilTIAZem CD 120 MG CAPCR PO (07:56)
[2021-08-10] MEDS: Normal Saline Flush 10 ML SYR IVP (07:57)
[2021-08-10] MEDS: LORazepam 0.5 MG TAB PO ×4 (08:01→23:23)
[2021-08-10] MEDS: Insulin Aspart 300 UNITS/3 ML PEN SC ×6 (08:45→21:23)
--- NOTE | 2021-08-10 08:56 | INITIAL_ITS ---
- If Service Date Differs Date of service: 08/10/21 Time of Service: 08:56 Care Management Initial Assess REASON FOR HOSPITALIZATION:: COPD Exacerbation PAST MEDICAL HISTORY/PAST SURGICAL HISTORY:: All Active Problems (Updated 08/10/21 @ 06:36 by Douglas Aquino). Acute respiratory failure with hypoxia and hypercarbia (Acute). Hypoxia (Acute). Contraceptive management (Acute). GERD (gastroesophageal reflux disease) (Chronic). Abnormal uterine bleeding (Acute). Mood disorder (Acute). Hypercalcemia (Acute). Hypomagnesemia (Acute). HTN (hypertension) (Chronic). Discharge planning issues (Acute). HELEN (obstructive sleep apnea) (Chronic). DVT prophylaxis (Acute). Acute exacerbation of CHF (congestive heart failure) (Acute). Tobacco abuse (Acute). Diabetes mellitus (Chronic). COPD with acute exacerbation (Acute). Primary osteoarthritis of both knees (Chronic 05/01/15). Medical History . Chronic atrophic candidosis. Depression with anxiety. Diabetes mellitus type 2 in obese. Hyperlipidemia. Morbid obesity. HELEN (obstructive sleep apnea). Smoker. Surgical History . Bilat partial saplinectomy. Cholecystectomy (12/07/15). LAPAROSCOPIC WITH INTRAOPERATIVE CHOLANGIOGRAM/[facility]. Ligation of fallopian tube. Open Carpal Tunnel release. Repair of umbilical hernia. Tonsillectomy and adenoidectomy PREVIOUS FUNCTIONAL STATUS/SOCIAL/FAMILY SUPPORTS:: Rosibel lives in [facility] with her significant other Nahun.She has two adult children who reside locally. Her sister Therese provides the majority of her transporation needs and she also uses [facility]. 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 She has home O2, uses a walker. Rosibel requires assistance with her ADL's at baseline. CURRENT FUNCTIONAL STATUS:: Rosibel was sitting up in her chair when CM met with her. She is accompanied by her sister Therese and her boyfriend Nahun. She is alert, oriented and her breathing is somewhat labored. Her O2 Sat is 93% on 35 Fio2. ADVANCE DIRECTIVES:: None, declines forms. Has patient been provided with info about the portal/API?: Yes Did the patient sign up for the portal?: Yes (Prior to appointment) CODE STATUS:: DNR INSURANCE COVERAGE / FINANCIAL ISSUES:: Medicaid. Medicare CURRENT HOME/COMMUNITY SERVICES/EQUIPMENT:: Home O2: [employer]. Walker: Has one at home. [facility]: provides transportation PRN PRIMARY CARE PHYSICIAN:: Maria Del Carmen Nogueira POTENTIAL DISCHARGE NEEDS:: Follow up appointments PATIENT/FAMILY EDUCATION NEEDS:: Review discharge instructions, limitations and plan to follow up with community providers. ask me three. TRANSPORTATION:: via private vehicle with sister Therese vs [facility] PLAN:: Rosibel is being closely monitored and treated in the ICU. She is on telemetry, BiPAP, IV lasix, nebs, steroids, Basal bolus insulin and IV ABX. Pulmonology is consulted. Echo is planned for Friday. Anticipate, Rosibel will be discharged home when she is medically cleared by provider. Anticipate she will need [facility] SN/PT/OT/DECORATING INSTRUCTOR. Patient will follow up with community providers and discharge plan of care as prescribed.
--- NOTE | 2021-08-10 08:58 | PGE_ITS ---
Date of Service Date of service: 08/10/21 Time of Service: 08:58 Assessment and Plan Assessment and plan (1) Acute respiratory failure with hypoxia and hypercarbia: Status: Acute Assessment and plan: Multifactorial, due to CHF and COPD exacerbations, probable pneumonia, pulmonary hypertension. Keep in ICU on BiPAP, IV lasix, scheduled + prn nebs, steroids, levofloxacin. (2) Acute exacerbation of CHF (congestive heart failure): Status: Acute Assessment and plan: As above Echo not available until Friday (3 days from now). (3) COPD with acute exacerbation: Status: Acute Assessment and plan: As above (4) Hypomagnesemia: Status: Acute Assessment and plan: Repleted. Recheck in am (5) HELEN (obstructive sleep apnea): Status: Suspected Assessment and plan: Confirming this this morning - the patient states she was found not to have HELEN. (6) Diabetes mellitus: Status: Chronic Assessment and plan: With steroid induced hyperglycemia. Basal bolus insulin - titrate to target of 140-180. (7) Tobacco abuse: Status: Acute Assessment and plan: Nicotine replacement (8) DVT prophylaxis: Status: Acute Assessment and plan: SC heparin (9) Discharge planning issues: Status: Acute Assessment and plan: DNI Keep in ICU. Total Critical Care Time [address] Lamar Subjective Subjective Interval history since last seen: Ms Dinh states she is feeling better but not back to normal. She had taken the BiPAP off. She is on 4L of O2 right now. She denies SOB. Cough is productive. Denies chest pain, nausea. Feels a little dizzy. States she was taking lasix prn for swelling and not for shortness of breath. Exam Narrative Exam Narrative: General: Pleasant obese female who looks tired, A&Ox3, dyspneic/tachypneic, speaking 2-3 word phrases HEENT: EOMI, MMM Heart: RRR, no m/r/g Lungs: rales at B bases Abdomen: soft, nontender, nondistended Extremities: 1+ BLE edema Objective Last Vital Signs Temp 37.3 C 08/10/21 04:50 Pulse 92 H 08/10/21 06:01 Resp 37 H 08/10/21 06:50 BP 146/89 H 08/10/21 06:01 Pulse Ox 73 L 08/10/21 04:50 Laboratory Results - last 24 hr 08/10/21 08/10/21 08/10/21 01:48 01:58 01:58 WBC 8.82 RBC 5.65 H Hgb 16.7 H Hct 52.1 H MCV 92 MCH 29.6 MCHC 32.1 RDW 14.7 H Plt Count 175 MPV 9.3 Immature Gran % 0.5 Neutrophils % 75.6 Lymphocytes % 12.0 Monocytes % 11.6 Eosinophils % 0.0 Basophils % 0.3 Nucleated RBC % 0.0 Absolute Neutrophils 6.67 Absolute Lymphocytes 1.06 L Absolute Monocytes 1.02 H Absolute Eosinophils 0.00 Absolute Basophils 0.03 VBG pH VBG pCO2 VBG pO2 VBG HCO3 VBG Total CO2 VBG O2 Saturation VBG Base Excess Sodium 137 Potassium 4.0 Chloride 99 Carbon Dioxide 31.6 Anion Gap 6.4 BUN 10 Creatinine 0.6 Estimated GFR/1.73 m2 >= 60.00 Glucose 214 H Calcium 9.7 Phosphorus Magnesium 1.5 L Total Bilirubin 0.5 AST 18 ALT 13 L Alkaline Phosphatase 77 Troponin I Cancelled < 50 NT-Pro-B Natriuret Pep 403 H Total Protein 8.2 Albumin 3.8 TSH COVID-19 Source SARS-CoV-2 (PCR) Add-On Test Request 08/10/21 08/10/21 08/10/21 01:58 02:00 03:00 WBC RBC Hgb Hct MCV MCH MCHC RDW Plt Count MPV Immature Gran % Neutrophils % Lymphocytes % Monocytes % Eosinophils % Basophils % Nucleated RBC % Absolute Neutrophils Absolute Lymphocytes Absolute Monocytes Absolute Eosinophils Absolute Basophils VBG pH 7.26 L 7.30 L VBG pCO2 71 H* 64 H* VBG pO2 44 65 VBG HCO3 32 H 32 H VBG Total CO2 29 28 VBG O2 Saturation 82 94 VBG Base Excess 5 H 5 H Sodium Potassium Chloride Carbon Dioxide Anion Gap BUN Creatinine Estimated GFR/1.73 m2 Glucose Calcium Phosphorus Magnesium Total Bilirubin AST ALT Alkaline Phosphatase Troponin I NT-Pro-B Natriuret Pep Total Protein Albumin TSH COVID-19 Source Nasal/Nares SARS-CoV-2 (PCR) Negative Add-On Test Request 08/10/21 08/10/21 08/10/21 06:55 06:55 06:55 WBC 6.94 RBC 5.35 H Hgb 15.7 Hct 49.7 H MCV 93 MCH 29.3 MCHC 31.6 L RDW 14.5 Plt Count 172 MPV 9.8 Immature Gran % 1.2 Neutrophils % 88.0 Lymphocytes % 7.8 Monocytes % 2.7 Eosinophils % 0.0 Basophils % 0.3 Nucleated RBC % 0.0 Absolute Neutrophils 6.11 Absolute Lymphocytes 0.54 L Absolute Monocytes 0.19 Absolute Eosinophils 0.00 Absolute Basophils 0.02 VBG pH 7.34 VBG pCO2 60 H VBG pO2 88 VBG HCO3 32 H VBG Total CO2 28 VBG O2 Saturation 97 VBG Base Excess 6 H Sodium 138 Potassium 4.1 Chloride 101 Carbon Dioxide 29.3 Anion Gap 7.7 BUN 11 Creatinine 0.6 Estimated GFR/1.73 m2 >= 60.00 Glucose 221 H Calcium 9.6 Phosphorus Magnesium 1.8 Total Bilirubin 0.5 AST 22 ALT 14 Alkaline Phosphatase 70 Troponin I < 50 NT-Pro-B Natriuret Pep Total Protein 7.7 Albumin 3.4 TSH 0.67 COVID-19 Source SARS-CoV-2 (PCR) Add-On Test Request 08/10/21 08/10/21 06:55 06:55 WBC RBC Hgb Hct MCV MCH MCHC RDW Plt Count MPV Immature Gran % Neutrophils % Lymphocytes % Monocytes % Eosinophils % Basophils % Nucleated RBC % Absolute Neutrophils Absolute Lymphocytes Absolute Monocytes Absolute Eosinophils Absolute Basophils VBG pH VBG pCO2 VBG pO2 VBG HCO3 VBG Total CO2 VBG O2 Saturation VBG Base Excess Sodium Potassium Chloride Carbon Dioxide Anion Gap BUN Creatinine Estimated GFR/1.73 m2 Glucose Calcium Phosphorus 3.0 Magnesium Total Bilirubin AST ALT Alkaline Phosphatase Troponin I NT-Pro-B Natriuret Pep Total Protein Albumin TSH COVID-19 Source SARS-CoV-2 (PCR) Add-On Test Request DONE Multi-Disciplinary Checklist Lines/Tubes CENTRAL LINE: no ARTERIAL LINE: no MORAES: yes, Moraes Day#: 0 Note: Inserted on 08/10/21 ENDOTRACHEAL TUBE: no ICU Maintenance GLUCOSE 140-180mg/dL: no, Reason/Intervention: On steroids; will intensify glucose control NUTRITION AT GOAL: yes PRESSURE ULCER: no RESTRAINTS: no ANTIBIOTICS(if yes, consider Stewardship): Yes Social Issues FAMILY UPDATED: no, Reason/Intervention: Patient able to update family PT/OT: no, Reason/Intervention: not yet appropriate GOALS/DISPOSITION/MORTGAGE ACCOUNTING CLERK: yes CODE STATUS: Full (DNI, but not DNR) Prophylaxis DVT PROPHYLAXIS: yes GI PROPHYLAXIS: yes, Indication: on steroids
[2021-08-10] MEDS: predniSONE 20 MG TAB 40 MG PO (09:17)
[2021-08-10] MEDS: guaiFENesin 600 MG TABCR PO ×2 (09:18→19:49)
[2021-08-10] MEDS: Tiotropium Bromide-Respimat 10 PUFF INH 2 PUFF IH (09:21)
[2021-08-10] MEDS: Budesonide/Formoterol 160/4.5 6 GM 60 PUFF INH IH ×2 (09:22→19:52)
[2021-08-10] MEDS: Methylphenidate 10 MG TAB 20 MG PO ×2 (11:26→19:49)
[2021-08-10] MEDS: buPROPion-CR 100 MG TABCR 200 MG PO (11:26)
[2021-08-10] MEDS: Pantoprazole 40 MG TABCR PO (11:27)
--- NOTE | 2021-08-10 13:13 | CHAPLAIN ---
I had a brief visit with Rosibel. I introduced myself, explained my role and offered support. She's been in touch with family members by phone.
[2021-08-10 15:42] LABS: Bilirubin Negative (Negative); Blood Moderate (Negative); Clarity Clear (Clear); Glucose Negative (Negative); Ketones Negative (Negative); Leukocyte Esterase Negative (Negative); Nitrite Negative (Negative); Specific Gravity >= 1.030 (1.005-1.025); Urobilinogen 0.2 EU/dL (Up TO 0.2); pH 5.5 (5-8)
[2021-08-10 15:53] LABS: Bacteria Negative HPF (Negative); C & S Indicated? No; Casts Negative LPF (Negative); Crystals Negative HPF (Negative); Epithelial Cells Few HPF (Negative); Mucus Negative (Negative); Other Cells Negative (Negative); RBC 20-50 HPF (0-2)
[2021-08-10] MEDS: Rosuvastatin 10 MG TAB 40 MG PO (19:49)
[2021-08-10] MEDS: Acetaminophen 325 MG TAB PO (20:46)
[2021-08-10] MEDS: oxyCODONE 10 MG TAB PO (20:47)
[2021-08-10] MEDS: Gabapentin 300 MG CAP 900 MG PO (21:12)
[2021-08-10] MEDS: Melatonin 3 MG TAB PO (21:12)
[2021-08-11] VITALS (64 sets, daily range): BP systolic 142–179; BP diastolic 73–99; PULSE 73–101; RESP 4–42; TEMP 36.1–37.3; O2SAT 88–99
[2021-08-11] MEDS: Acetaminophen 325 MG TAB PO (00:37)
[2021-08-11] MEDS: oxyCODONE 10 MG TAB PO ×2 (00:37→04:23)
[2021-08-11] MEDS: levoFLOXacin 750 MG/150 ML BAG 100 MG IVPB (01:47)
[2021-08-11] MEDS: Heparin 5,000 UNITS/ML VIAL 5000 UNITS SC ×3 (05:56→20:40)
[2021-08-11 06:47] LABS: BE (Venous) 12 mmol/L (-2-3); HCO3 (Venous) 37 mmol/L (23-28); O2 Sat (Venous) 86 %; TCO2 (Venous) 33 mmol/L (24-29); pH (Venous) 7.35 (7.31-7.41); pO2 (Venous) 49 mmHg
[2021-08-11 06:49] LABS: Abs Immature Grans 0.05 10^3/uL (0.0-0.06); Absolute Basophil Count 0.02 10^3/uL (0.0-0.2); Absolute Lymphocyte Count 1.25 10^3/uL (1.2-3.4); Absolute Monocyte Count 1.16 10^3/uL (0.1-0.8); Absolute Neutrophil Count 6.12 10^3/uL (1.2-6.7); Basophils % 0.2; HCT 51.4 % (36.0-46.0); HGB 16.7 g/dL (11.2-15.7); Immature Grans % 0.6; Lymphocytes % 14.5; MCH 29.7 pg (27.0-33.0); MCHC 32.5 % (32.0-36.0); MCV 92 fL (80-95); MPV 9.4 fL (8.0-11.0); Monocytes % 13.5; Neutrophils % 71.2; Platelet Count 178 10^3/uL (130-400); RBC 5.62 10^6/uL (3.93-5.22); RDW 14.2 % (11.7-14.6); RDW-SD 47.9 fL
[2021-08-11 06:55] LABS: pCO2 (Venous) 69 mmHg (41-51)
[2021-08-11 07:07] LABS: ALT 14 U/L (14-59); AST 16 U/L (15-37); Albumin 3.4 g/dL (3.4-5.0); Alkaline Phosphatase 69 U/L (46-116); Anion Gap 6.1 mmol/L (3-11); BUN 18 mg/dL (7-18); Bilirubin, Total 0.4 mg/dL (0.2-1.0); CO2 33.9 mmol/L (21.0-32.0); CREATININE 0.6 mg/dL (0.55-1.02); Calcium 10.1 mg/dL (8.5-10.1); Chloride 101 mmol/L (98-107); Glucose 141 mg/dL (74-106); Magnesium 1.9 mg/dL (1.8-2.4); Potassium 3.9 mmol/L (3.5-5.1); Sodium 141 mmol/L (136-145); Total Protein 7.7 g/dL (6.4-8.2)
[2021-08-11] MEDS: buPROPion-CR 100 MG TABCR 200 MG PO (07:42)
[2021-08-11] MEDS: Methylphenidate 10 MG TAB 20 MG PO (07:42)
[2021-08-11] MEDS: ARIPiprazole 5 MG TAB 10 MG PO (07:42)
[2021-08-11] MEDS: Atenolol 50 MG TAB PO (07:43)
[2021-08-11] MEDS: dilTIAZem CD 120 MG CAPCR PO (07:43)
[2021-08-11] MEDS: predniSONE 20 MG TAB 40 MG PO (07:43)
[2021-08-11] MEDS: Pantoprazole 40 MG TABCR PO (07:43)
[2021-08-11] MEDS: guaiFENesin 600 MG TABCR PO ×2 (07:43→20:40)
[2021-08-11] MEDS: Furosemide 40 MG/4 ML VIAL IVP ×2 (07:43→17:01)
[2021-08-11] MEDS: Lisinopril 20 MG TAB PO (07:43)
[2021-08-11] MEDS: Budesonide/Formoterol 160/4.5 6 GM 60 PUFF INH IH ×2 (07:51→20:37)
[2021-08-11] MEDS: Tiotropium Bromide-Respimat 10 PUFF INH 2 PUFF IH (07:51)
[2021-08-11] MEDS: Albuterol/Ipratropium 3 ML UPD VIAL UPD ×3 (08:21→20:39)
--- NOTE | 2021-08-11 09:21 | W.PM.PROGNOT ---
Date of Service Date of service: 08/11/21 Time of Service: Assessment and Plan Assessment and plan (1) Acute respiratory failure with hypoxia and hypercarbia: Status: Acute Assessment and plan: Multifactorial, due to CHF and COPD exacerbations, probable pneumonia, pulmonary hypertension. Continues to require ICU. Continue to encourage BiPAP. Continue diuresis. Monitor I/Os and daily weights. Continue scheduled + prn nebs, steroids, levofloxacin. (2) Acute exacerbation of CHF (congestive heart failure): Status: Acute Assessment and plan: As above Echo not available until Friday (3 days from now). (3) COPD with acute exacerbation: Status: Acute Assessment and plan: As above (4) Hypomagnesemia: Status: Resolved Assessment and plan: Recheck in am (5) HELEN (obstructive sleep apnea): Status: Chronic Assessment and plan: I feelt that the patient would benefit from a device such as BiPAP or possibly trilogy at home. Will discuss with RT/pulmonology. (6) Diabetes mellitus: Status: Chronic Assessment and plan: With steroid induced hyperglycemia. Basal bolus insulin - titrate to target of 140-180. (7) Tobacco abuse: Status: Chronic Assessment and plan: Nicotine replacement (8) DVT prophylaxis: Status: Acute Assessment and plan: SC heparin (9) Discharge planning issues: Status: Acute Assessment and plan: DNI Keep in ICU. Total Critical Care Time 35 minutes. Subjective Subjective Interval history since last seen: Ms Dinh feels better. She is now on oxymask. She did not tolerate BiPAP last night for too long. She states that she will try it one more time today. We discussed how perhaps she would benefit from having a machine at home - that we would look into this - and maybe a nasal mask would be more comfortable for her. Denies dizziness, chest pain, breathing is better. Denies nausea. States had a migraine yesterday; this has now resolved. Exam Narrative Exam Narrative: General: Pleasant obese female who looks better, sitting in a chair and texting on the phone, A&Ox3, speaking in 4-5 word phrases. HEENT: EOMI, MMM Heart: RRR, no m/r/g Lungs: rales at B bases still pronounced. Abdomen: soft, nontender, nondistended Extremities: trace BLE edema Objective Last Vital Signs Temp 36.7 C 08/11/21 04:00 Pulse 87 08/11/21 06:01 Resp 24 08/11/21 07:10 BP 145/99 H 08/11/21 06:01 Pulse Ox 92 08/11/21 08:21 Laboratory Results - last 24 hr 08/10/21 08/10/21 08/11/21 09:50 10:00 05:35 WBC RBC Hgb Hct MCV MCH MCHC RDW Plt Count MPV Immature Gran % Neutrophils % Lymphocytes % Monocytes % Eosinophils % Basophils % Nucleated RBC % Absolute Neutrophils Absolute Lymphocytes Absolute Monocytes Absolute Eosinophils Absolute Basophils VBG pH 7.35 VBG pCO2 69 H* VBG pO2 49 VBG HCO3 37 H VBG Total CO2 33 H VBG O2 Saturation 86 VBG Base Excess 12 H Sodium Potassium Chloride Carbon Dioxide Anion Gap BUN Creatinine Estimated GFR/1.73 m2 Glucose Calcium Magnesium Total Bilirubin AST ALT Alkaline Phosphatase Total Protein Albumin Urine Color Yellow Cancelled Urine Clarity Clear Cancelled Urine pH 5.5 Cancelled Ur Specific [place] >= 1.030 H Cancelled Urine Protein 100 H Cancelled Urine Ketones Negative Cancelled Urine Blood Moderate H Cancelled Urine Nitrite Negative Cancelled Urine Bilirubin Negative Cancelled Urine Urobilinogen 0.2 Cancelled Ur Leukocyte Esterase Negative Cancelled Urine RBC 20-50 H Urine WBC 3-5 Ur Epithelial Cells Few Urine Crystals Negative Urine Bacteria Negative Urine Casts Negative Urine Mucus Negative Urine Other Negative Ur Culture Indicated? No Urine Glucose Negative Cancelled 08/11/21 08/11/21 06:35 06:35 WBC 8.60 RBC 5.62 H Hgb 16.7 H Hct 51.4 H MCV 92 MCH 29.7 MCHC 32.5 D RDW 14.2 Plt Count 178 MPV 9.4 Immature Gran % 0.6 Neutrophils % 71.2 Lymphocytes % 14.5 Monocytes % 13.5 Eosinophils % 0.0 Basophils % 0.2 Nucleated RBC % 0.0 Absolute Neutrophils 6.12 Absolute Lymphocytes 1.25 Absolute Monocytes 1.16 H Absolute Eosinophils 0.00 Absolute Basophils 0.02 VBG pH VBG pCO2 VBG pO2 VBG HCO3 VBG Total CO2 VBG O2 Saturation VBG Base Excess Sodium 141 Potassium 3.9 Chloride 101 Carbon Dioxide 33.9 H Anion Gap 6.1 BUN 18 Creatinine 0.6 Estimated GFR/1.73 m2 >= 60.00 Glucose 141 H Calcium 10.1 Magnesium 1.9 Total Bilirubin 0.4 AST 16 ALT 14 Alkaline Phosphatase 69 Total Protein 7.7 Albumin 3.4 Urine Color Urine Clarity Urine pH Ur Specific [place] Urine Protein Urine Ketones Urine Blood Urine Nitrite Urine Bilirubin Urine Urobilinogen Ur Leukocyte Esterase Urine RBC Urine WBC Ur Epithelial Cells Urine Crystals Urine Bacteria Urine Casts Urine Mucus Urine Other Ur Culture Indicated? Urine Glucose PAWSS Have you Been Recently Intoxicated or Drunk Within the Last 30 days?: No Have you Ever Experienced Previous Episodes of Alcohol Withdrawal?: No Have you ever Experienced Withdrawal Seizures?: No Have you ever Experienced Delirium Tremens(DT)s?: No Have you ever undergone Alcohol Rehabilitation Treatment (i.e, inpt ot outpatient treatment programs)?: No Have you ever Experienced Blackouts?: No Have you ever Combined Alcohol with other Downers within the last 90 days?: No Have you ever Combined Alcohol with any other Substance of Abuse during the last 90 days?: No Positive Blood Alcohol level on Presentation? [PCS.BAL]: No Evidence of Increased Autonomic Activity (i.e. HR>120, tremor, sweating, agitation, nausea)?: No Result: 0 Multi-Disciplinary Checklist Lines/Tubes CENTRAL LINE: no ARTERIAL LINE: no MORAES: yes, Moraes Day#: 2 Note: UOP monitoring - CHF ENDOTRACHEAL TUBE: no ICU Maintenance GLUCOSE 140-180mg/dL: yes NUTRITION AT GOAL: yes PRESSURE ULCER: no RESTRAINTS: no ANTIBIOTICS(if yes, consider Stewardship): Yes Social Issues FAMILY UPDATED: no, Reason/Intervention: Patient able to update family PT/OT: no, GOALS/DISPOSITION/FOREST FIRE PREVENTION SPECIALIST: yes CODE STATUS: Full (DNI but not DNR) Prophylaxis DVT PROPHYLAXIS: yes GI PROPHYLAXIS: yes, Indication: on steroids
[2021-08-11] MEDS: Insulin Aspart 300 UNITS/3 ML PEN SC ×4 (12:53→17:48)
--- NOTE | 2021-08-11 12:56 | WOUNDCONS_ITS ---
- If Service Date Differs Date of service: 08/11/21 Time of Service: 12:56 Wound Initial Evaluation Narrative: Patient is a 51 yof whom has been admitted here for Hypoxemia and Hypercarbnia. Patient has co-morbidities of HELEN with non-compliance with CPAP or BI-PAP. Current smoker, morbidly obese, and a diabetic. Last week while shaving her left axilaee, she nicked an area. Over the course of seven days, the area had grown larger. The area does not hurt, itch , or burn. Patient has consented to a wound consult. Patient's H&P Labs and other pertinent information were rev iewed prior to performing the consult. - Wound Left Arm Wound Type: Partial Thickness, Other (fungal rash) Wound General Appearance: Reddened, Other (excoriated) Wound Bed Greatest Portion: Pale [place] Wound Surrounding Tissue Appearance: [place] Wound Length: 0.9 cm Wound Width: 2.8 cm Wound Depth: 0.1 cm Wound Drainage Amount: None Wound Drainage Odor: Musty Wound Drainage Description: Serous Wound Topical Solution/Irrigant: Other (soap and water) Wound Debridement Method: Mechanical Wound Debridement Result: Healthy Tissue Revealed Wound Debridement Amount of Tissue Removed: Minimal - Circulation, Sensation, Motion Edema Degree: 3+ Peripheral Pulse Strength: Normal Sensation Description: Within Normal Limits Skin Temperature: Warm Skin Color: Pale Additional Other Comments: Skin in the affected area is very moist. - SHMUEL Comment:: not indicated - Pain Pain Level: 0 Pain Scale Used: Visual Analog Scale 0-10 Patient had nicked the area while shaving a week ago. area has grown from a david to covering a large part of the axilaee. Patient has skin folds and the area in question is very moist to the touch. - Photo Photo: - Treatment/Dressing Change Topicals/Ointments: Other (triple ointment, (Nahid cream).) Cleanse With: Other (Soap and water.) - Recomendation Recomendation:: Left Axilaee. Wash with soap and water. Pat dry. Apply triple ointment, (Nahid cream), to the wound bed. Apply inter dry to wick away moisture.. Perform twice daily. Physcian/Nurse Practioner Notified: Yes (Dr. Whitfield) Treatment Time - Time Total Time Spent with Patient: 35 minutes - Patient Will be Seen Weekly Treatment: bid - For: For:: 1 week
[2021-08-11] MEDS: Normal Saline Flush 10 ML SYR IVP (17:01)
[2021-08-11] MEDS: Rosuvastatin 10 MG TAB 40 MG PO (20:40)
[2021-08-11] MEDS: Gabapentin 300 MG CAP 900 MG PO (20:40)
[2021-08-11] MEDS: Melatonin 3 MG TAB PO (20:50)
--- NOTE | 2021-08-11 22:44 | NUR.NOTE ---
Nursing Note: Pt refuses to wear Bipap at this point tonight. WIll reattempt offering to place Bipap throughout the night. Pt is on 4L via NC. Sp02 ~ 93-94% Pt is sleeping in recliner per her request as she does at home.
[2021-08-11] MEDS: Albuterol 2.5 MG/3 ML INH SOLN VIAL UPD (23:22)
--- NOTE | 2021-08-11 23:56 | NUR.NOTE ---
Nursing Note: Bipap tolerated for ~10 minutes. Patient states she cannot tolerate mask.
[2021-08-12] VITALS (22 sets, daily range): BP systolic 136–159; BP diastolic 83–98; PULSE 77–94; RESP 8–22; TEMP 35.7–36.9; O2SAT 82–97
[2021-08-12] MEDS: levoFLOXacin 750 MG/150 ML BAG 100 MG IVPB (02:01)
[2021-08-12] MEDS: Heparin 5,000 UNITS/ML VIAL 5000 UNITS SC ×3 (05:09→20:43)
[2021-08-12 06:49] LABS: Abs Immature Grans 0.06 10^3/uL (0.0-0.06); Absolute Basophil Count 0.03 10^3/uL (0.0-0.2); Absolute Lymphocyte Count 2.19 10^3/uL (1.2-3.4); Absolute Monocyte Count 1.35 10^3/uL (0.1-0.8); Basophils % 0.3; HCT 51.9 % (36.0-46.0); HGB 16.6 g/dL (11.2-15.7); Immature Grans % 0.6; MCH 29.4 pg (27.0-33.0); MCV 92 fL (80-95); MPV 9.6 fL (8.0-11.0); Monocytes % 14.2; Neutrophils % 61.9; Platelet Count 194 10^3/uL (130-400); RBC 5.64 10^6/uL (3.93-5.22); RDW 14.5 % (11.7-14.6); RDW-SD 48.9 fL; WBC 9.53 10^3/uL (4.4-10.8)
[2021-08-12 07:07] LABS: PHOSPHORUS 2.9 mg/dL (2.6-4.7)
[2021-08-12 07:08] LABS: ALT 16 U/L (14-59); AST 16 U/L (15-37); Albumin 3.3 g/dL (3.4-5.0); Alkaline Phosphatase 67 U/L (46-116); BUN 21 mg/dL (7-18); Bilirubin, Total 0.5 mg/dL (0.2-1.0); CREATININE 0.7 mg/dL (0.55-1.02); Chloride 100 mmol/L (98-107); Glucose 149 mg/dL (74-106); Magnesium 1.7 mg/dL (1.8-2.4); Potassium 3.7 mmol/L (3.5-5.1); Sodium 141 mmol/L (136-145); Total Protein 7.5 g/dL (6.4-8.2)
[2021-08-12] MEDS: Tiotropium Bromide-Respimat 10 PUFF INH 2 PUFF IH (07:25)
[2021-08-12] MEDS: Albuterol/Ipratropium 3 ML UPD VIAL UPD ×3 (07:26→20:42)
[2021-08-12] MEDS: Budesonide/Formoterol 160/4.5 6 GM 60 PUFF INH IH ×2 (07:26→20:42)
[2021-08-12] MEDS: buPROPion-CR 100 MG TABCR 200 MG PO (08:10)
[2021-08-12] MEDS: Atenolol 50 MG TAB PO (08:11)
[2021-08-12] MEDS: ARIPiprazole 5 MG TAB 10 MG PO (08:11)
[2021-08-12] MEDS: Pantoprazole 40 MG TABCR PO (08:11)
[2021-08-12] MEDS: Methylphenidate 10 MG TAB 20 MG PO (08:11)
[2021-08-12] MEDS: dilTIAZem CD 120 MG CAPCR PO (08:11)
[2021-08-12] MEDS: Lisinopril 20 MG TAB PO (08:12)
[2021-08-12] MEDS: predniSONE 20 MG TAB 40 MG PO (08:12)
[2021-08-12] MEDS: guaiFENesin 600 MG TABCR PO ×2 (08:12→20:43)
[2021-08-12] MEDS: oxyCODONE 10 MG TAB PO (08:13)
[2021-08-12] MEDS: Acetaminophen 325 MG TAB PO ×2 (08:13→19:26)
[2021-08-12] MEDS: Furosemide 40 MG/4 ML VIAL IVP ×2 (08:13→15:09)
[2021-08-12] MEDS: Insulin Aspart 300 UNITS/3 ML PEN SC ×7 (08:14→20:49)
[2021-08-12] MEDS: Normal Saline Flush 10 ML SYR IVP ×2 (08:18→15:09)
[2021-08-12] MEDS: MAGNESIUM SULFATE 2 GM/50 ML BAG IVPB (10:21)
[2021-08-12] MEDS: Normal Saline 500 ML 25 ML IV (10:22)
--- NOTE | 2021-08-12 14:35 | W.PM.PROGNOT ---
Date of Service Date of service: 08/12/21 Time of Service: 14:35 Assessment and Plan Assessment and plan (1) Acute respiratory failure with hypoxia and hypercarbia: Status: Acute Assessment and plan: Multifactorial, due to CHF and COPD exacerbations, probable pneumonia, pulmonary hypertension. Transferred to med surg floor. Doing much better. Continue diuretics, scheduled + prn nebs, steroids, levofloxacin. Suspect that this is an acute on chronic respiratory failure. Will need exercise oximetry prior to discharge. Will discuss with Dr Lamar is a home BiPAP or an AVAPS machine with a nasal mask might be appropriate. (2) Acute exacerbation of CHF (congestive heart failure): Status: Acute Assessment and plan: As above Echo planned for tomorrow. (3) COPD with acute exacerbation: Status: Acute Assessment and plan: As above (4) Hypomagnesemia: Status: Acute Assessment and plan: Replete. Recheck in am (5) HELEN (obstructive sleep apnea): Status: Chronic Assessment and plan: I feelt that the patient would benefit from a device such as BiPAP or possibly trilogy at home. Will discuss with RT/pulmonology. (6) Diabetes mellitus: Status: Chronic Assessment and plan: With steroid induced hyperglycemia. Basal bolus insulin - titrate to target of 140-180. (7) Tobacco abuse: Status: Chronic Assessment and plan: Nicotine replacement (8) DVT prophylaxis: Status: Acute Assessment and plan: SC heparin (9) Discharge planning issues: Status: Acute Assessment and plan: DNI Transferred out of ICU on 08/11/21. Anticipate discharge home in the next 24-48 hrs. WIll need exercise oximetry. Consider AVAPS/BiPAP machine on discharge. Subjective Subjective Interval history since last seen: Ms Dinh states that everything just feels better. She states her breathing is better, her sinuses feel better because the mucinex is helping. She denies dizziness, chest pain, nausea. She is normally on 2L of O2; today she is on 3L saturating 90%. Exam Narrative Exam Narrative: General: Pleasant obese female who looks even better than yesterday, sitting at the edge of the bed, A&Ox3, speaking in full sentences. HEENT: EOMI, MMM Heart: RRR, no m/r/g Lungs: rales at B bases improved, but still present Abdomen: soft, nontender, nondistended Extremities: no BLE edema Objective Last Vital Signs Temp 36.5 C 08/12/21 11:33 Pulse 89 08/12/21 13:59 Resp 20 08/12/21 11:33 BP 159/97 H 08/12/21 11:33 Pulse Ox 90 L 08/12/21 13:59 Laboratory Results - last 24 hr 08/12/21 08/12/21 08/12/21 06:37 06:37 06:37 WBC 9.53 RBC 5.64 H Hgb 16.6 H Hct 51.9 H MCV 92 MCH 29.4 MCHC 32.0 RDW 14.5 Plt Count 194 MPV 9.6 Immature Gran % 0.6 Neutrophils % 61.9 Lymphocytes % 23.0 Monocytes % 14.2 Eosinophils % 0.0 Basophils % 0.3 Nucleated RBC % 0.0 Absolute Neutrophils 5.90 Absolute Lymphocytes 2.19 Absolute Monocytes 1.35 H Absolute Eosinophils 0.00 Absolute Basophils 0.03 Sodium 141 Potassium 3.7 Chloride 100 Carbon Dioxide 35.0 H Anion Gap 6.0 BUN 21 H Creatinine 0.7 Estimated GFR/1.73 m2 >= 60.00 Glucose 149 H Calcium 10.0 Phosphorus 2.9 Magnesium 1.7 L Total Bilirubin 0.5 AST 16 ALT 16 Alkaline Phosphatase 67 Total Protein 7.5 Albumin 3.3 L PAWSS Have you Been Recently Intoxicated or Drunk Within the Last 30 days?: No Have you Ever Experienced Previous Episodes of Alcohol Withdrawal?: No Have you ever Experienced Withdrawal Seizures?: No Have you ever Experienced Delirium Tremens(DT)s?: No Have you ever undergone Alcohol Rehabilitation Treatment (i.e, inpt ot outpatient treatment programs)?: No Have you ever Experienced Blackouts?: No Have you ever Combined Alcohol with other Downers within the last 90 days?: No Have you ever Combined Alcohol with any other Substance of Abuse during the last 90 days?: No Positive Blood Alcohol level on Presentation? [PCS.BAL]: No Evidence of Increased Autonomic Activity (i.e. HR>120, tremor, sweating, agitation, nausea)?: No Result: 0
[2021-08-12 19:25] LABS: Legionella Ag Detection Urine Negative (Negative)
[2021-08-12] MEDS: Rosuvastatin 10 MG TAB 40 MG PO (20:43)
[2021-08-12] MEDS: Melatonin 3 MG TAB PO (20:43)
[2021-08-12] MEDS: Gabapentin 300 MG CAP 900 MG PO (20:43)
[2021-08-13] VITALS (13 sets, daily range): BP systolic 125–168; BP diastolic 82–102; PULSE 79–99; RESP 2–22; TEMP 35.7–37.4; O2SAT 90–94
[2021-08-13] MEDS: levoFLOXacin 750 MG/150 ML BAG 100 MG IVPB (00:22)
[2021-08-13] MEDS: Heparin 5,000 UNITS/ML VIAL 5000 UNITS SC ×3 (05:14→21:15)
--- NOTE | 2021-08-13 06:38 | DI.US_ITS ---
APPROVED REPORT EXAM: Comprehensive 2D, Doppler, and color-flow Echocardiogram Patient Location: In-Patient Telephonic Nurse Case Manager: Thao Huber RDCS (AE) Indications: CHF with HELEN Other Information Study Quality: Fair. Technically limited study due to body habitus. Conclusion Technically suboptimal study Mild concentric left ventricular hypertrophy. Estimated ejection fraction is 55%. No segmental wall motion abnormalities are identified Normal right ventricular size and systolic function Both atria are normal in size Aortic valve is mildly sclerotic and trileaflet with trace regurgitation Mild mitral annular calcification. Trace mitral regurgitation Normal tricuspid valve with trace regurgitation. Estimated right ventricular systolic pressure is 40 mmHg Wall motion Left Ventricle The left ventricle is normal size. The left ventricular systolic function is normal. The left ventric ular ejection fraction is within the normal range. Mild concentric left ventricular hypertrophy. Ther e is no ventricular septal defect visualized. LVEF is 55%. Right Ventricle Right ventricle is grossly normal in size. Right ventricular systolic function is grossly normal. The RVSP is 40.1 mmHg. Atria The left atrium size is normal. The right atrium size is normal. The interatrial septum is intact wit h no evidence for an atrial septal defect. Aortic Valve The aortic valve is mildly sclerotic Aortic valve is trileaflet. There is no aortic valvular stenosis . Trace aortic regurgitation. Mitral Valve Mild mitral annular calcification. No evidence of mitral valve stenosis. Trace mitral regurgitation. Tricuspid Valve The tricuspid valve is normal in structure. There is no tricuspid valve stenosis. Trace tricuspid reg urgitation. Pulmonic Valve The pulmonary valve is normal in structure. There is no pulmonic valvular stenosis. There is no pulmo millie valvular regurgitation. Great Vessels The aortic root is normal in size. Ascending aorta is not well visualized. IVC is normal in size and collapses >50% with inspiration. Pericardium There is no pericardial effusion. 2D Dimensions IVSD d PLAX 1.24 cm F: 0.6-1.0 LV Vol A2C d MOD 115.8 mL LVPW d PLAX 1.22 cm F: 0.6 - 1.0 LV Vol A4C d MOD 135.4 mL LVID d PLAX 5.74 cm F: 3.8 - 5.2 LA vol/ BSA A2C s A-L 27.9 mL/m2 LVDs 4.10 cm F: 2.2 - 3.5 LA vol/ BSA A4C s A-L 26.9 mL/m2 Ao Root d 3.19 cm F: 2.7 - 3.3 LA Vol/ BSA Biplane s A-L 27.6 mL/m2 RA Area A4C 19.17 cm2 LA Area A4C s MOD 19.83 cm2 RA Vol/ BSA A4C s A-L 27.1 mL/m2 LA Area A2C s MOD 20.08 cm2 LV EF Teichholz 53.1 % LV EF A4C MOD 50.2 % LVEF (Tarango's) 48.70 % F: 54 - 74 LV EF A2C MOD 50.1 % LV Volume 94.91 mL F: 46 - 106 LV EF Biplane MOD 48.7 % LV Volume Index 46.29 mL/m2 F: 29 - 61 SV 62.15 mL LV Vol Biplane MOD 127.6 mL SV Index 30.29 mL/m2 FS 27.70 % M-Mode TAPSE 2.11 cm (M/F) >1.7 LV Diastology MV E' medial 0.078 (>0.07 m/s) E/A Ratio 0.7 LV E/e MED 7.10 (<14) MV E Vmax 0.56 (0.4-1.3 m/s) MV E' lateral 0.112 (>0.1 m/s) MV A Vmax 0.75 (0.4-1.3 m/s) LV E/e LAT 4.90 (<14) MV E/A Ratio 0.72 MV E/E' medial 7.11 MV E/E' lateral 4.95 Aortic Valve LVOT Area 3.24 cm2 AoV Area Vmax 2.77 cm2 LVOT Vmax 1.29 m/s AoV Area/ BSA (Vmax) 1.35 cm2/m2 LVOT Mean Milton. 0.82 m/s LANDEN Mean Milton. 2.64 cm2 LVOT Peak Grad 6.6 mmHg LANDEN Mean Milton. Index 1.29 cm2/m2 LVOT Mean Grad 3.3 mmHg AR DT 2574 msec LVOT VTI 0.205 m AR PHT 746 msec LVOT Diam s 2.00 cm AoV Vmax 1.50 m/s Velocity Ratio 0.86 AoV Mean Milton. 1.01 m/s AoV Peak Grad 9.1 mmHg LVOT SV 66.42 mL AoV Mean Grad 4.6 mmHg AoV VTI 0.226 m AoV Area VTI 2.94 cm2 AoV Area/ BSA (VTI) 1.43 cm/m2 Mitral Valve MV DT 373 (160-240 msec) MV PHT 108 msec MV Area PHT 2.03 cm2 MV VTI 0.139 m MV VTI Annulus 0.149 m MV Area VTI 5.12 (4.0-6.0 cm2) Pulmonary Valve PV Vmax 1.18 (0.5-1.5 m/s) RVOT Peak Gr. 2.00 mmHg PV Peak Grad 5.6 mmHg RVOT Mean Gr. 0.85 mmHg PV Mean Grad 3.0 mmHg RVOT VTI 0.127 m PV VTI 0.199 m RVOT Vmax 0.71 m/s Tricuspid Valve TR Peak Grad 37.1 mmHg TR Vmax 3.05 m/s RA Pressure 3.00 mmHg RVSP (TR) 40.1 mmHg
[2021-08-13 06:59] LABS: HCT 50.3 % (36.0-46.0); HGB 16.3 g/dL (11.2-15.7); MCH 29.4 pg (27.0-33.0); MCHC 32.4 % (32.0-36.0); MCV 91 fL (80-95); MPV 9.7 fL (8.0-11.0); Platelet Count 192 10^3/uL (130-400); RBC 5.54 10^6/uL (3.93-5.22); RDW 14.3 % (11.7-14.6); RDW-SD 48.3 fL; WBC 9.35 10^3/uL (4.4-10.8)
[2021-08-13 07:17] LABS: Anion Gap 4.6 mmol/L (3-11); BUN 24 mg/dL (7-18); CO2 39.4 mmol/L (21.0-32.0); CREATININE 0.5 mg/dL (0.55-1.02); Chloride 96 mmol/L (98-107); Glucose 129 mg/dL (74-106); Magnesium 1.9 mg/dL (1.8-2.4); Potassium 3.4 mmol/L (3.5-5.1); Sodium 140 mmol/L (136-145)
[2021-08-13] MEDS: Normal Saline Flush 10 ML SYR IVP ×3 (08:52→19:49)
[2021-08-13] MEDS: POTASSIUM CHLORIDE 20 MEQ/100 ML BAG 50 MEQ IVPB (08:52)
[2021-08-13] MEDS: Furosemide 40 MG/4 ML VIAL IVP ×2 (08:53→17:12)
[2021-08-13] MEDS: Acetaminophen 325 MG TAB PO ×2 (08:53→15:36)
[2021-08-13] MEDS: oxyCODONE 10 MG TAB PO ×2 (08:53→15:36)
[2021-08-13] MEDS: ARIPiprazole 5 MG TAB 10 MG PO (08:54)
[2021-08-13] MEDS: Lisinopril 20 MG TAB PO (08:54)
[2021-08-13] MEDS: predniSONE 20 MG TAB 40 MG PO (08:54)
[2021-08-13] MEDS: Methylphenidate 10 MG TAB 20 MG PO (08:54)
[2021-08-13] MEDS: buPROPion-CR 100 MG TABCR 200 MG PO (08:54)
[2021-08-13] MEDS: Atenolol 50 MG TAB PO (08:54)
[2021-08-13] MEDS: dilTIAZem CD 120 MG CAPCR PO (08:54)
[2021-08-13] MEDS: guaiFENesin 600 MG TABCR PO ×2 (08:55→19:47)
[2021-08-13] MEDS: Pantoprazole 40 MG TABCR PO (08:55)
[2021-08-13] MEDS: Insulin Aspart 300 UNITS/3 ML PEN SC ×6 (08:56→21:14)
[2021-08-13] MEDS: Tiotropium Bromide-Respimat 10 PUFF INH 2 PUFF IH (09:16)
[2021-08-13] MEDS: Budesonide/Formoterol 160/4.5 6 GM 60 PUFF INH IH ×2 (09:16→19:48)
--- NOTE | 2021-08-13 09:23 | CMPROGNOTE_ITS ---
- If Service Date Differs Date of service: 08/13/21 Time of Service: 09:23 Care Management Progress Note S/O: Rosibel is currently 90% on 3L NC. She is on IV lasix, nebs, steroids, Basal bolus insulin and IV ABX. Pulmonology is consulted. Echo results are pending. Per MD, Rosibel may need a home BiPAP or trilogy on discharge. MD to discuss with RT/pulmonology. CM will continue to support discharge planning needs. A: 51 year old female admitted to [facility] on 08/13/21 for COPD Exacerbation P: Rosibel is being closely monitored and treated. Anticipate, Rosibel will be discharged home when she is medically cleared by provider. Anticipate she will need [facility] SN/PT/OT/FOREIGN LAW CONSULTANT. Home Bi-pap or Trilogy is being considered. Patient will follow up with community providers and discharge plan of care as prescribed.
[2021-08-13] MEDS: Albuterol/Ipratropium 3 ML UPD VIAL UPD ×3 (10:02→19:48)
[2021-08-13] MEDS: POTASSIUM CHLORIDE 20 MEQ/100 ML BAG 40 MEQ IVPB (11:27)
[2021-08-13] MEDS: Rosuvastatin 10 MG TAB 40 MG PO (19:47)
--- NOTE | 2021-08-13 20:06 | W.PM.PROGNOT ---
Date of Service Date of service: 08/13/21 Time of Service: 17:40 Assessment and Plan Assessment and plan (1) Acute respiratory failure with hypoxia and hypercarbia: Status: Acute Assessment and plan: Multifactorial, due to CHF and COPD exacerbations, probable pneumonia, pulmonary hypertension. Improving. Switch diuretics to PO. Continue scheduled + prn nebs, steroids, levofloxacin (day 4/5). Suspect that this is an acute on chronic respiratory failure. Will need exercise oximetry prior to discharge. Dr Lamar will evaluate the patient as an outpatient for a possible BiPAP. (2) Acute exacerbation of CHF (congestive heart failure): Status: Acute Assessment and plan: As above Echo today w/ preserved LVEF (50%), RVSP of 40 mmHg. Suspect R-sided failure +/- diastolic dysfunction. Diuresis is being switched to PO. (3) COPD with acute exacerbation: Status: Acute Assessment and plan: As above (4) Hypomagnesemia: Status: Resolved Assessment and plan: Recheck in am (5) HELEN (obstructive sleep apnea): Status: Chronic Assessment and plan: Follow up with pulmonology as outpatient. (6) Diabetes mellitus: Status: Chronic Assessment and plan: With steroid induced hyperglycemia. Basal bolus insulin - titrate to target of 140-180. (7) Tobacco abuse: Status: Chronic Assessment and plan: Nicotine replacement (8) DVT prophylaxis: Status: Acute Assessment and plan: SC heparin (9) Discharge planning issues: Status: Acute Assessment and plan: DNI Transferred out of ICU on 08/11/21. Anticipate discharge home tomorrow. WIll need exercise oximetry. Will need pulmonary follow up. Subjective Subjective Interval history since last seen: Ms Dinh is feeling better. She is excited about being discharged home tomorrow. Denies chest pain, shortness of breath, nausea, dizziness, pain. We discussed how she is getting switched to PO lasix today and need to have an exercise oxymetry prior to discharge. Exam Narrative Exam Narrative: General: Pleasant obese female who looks even better, sitting up in a chair, A&Ox3, speaking in full sentences, on 3L of O2 by [place] HEENT: EOMI, MMM Heart: RRR, no m/r/g Lungs: rales at B bases improved, but still present Abdomen: soft, nontender, nondistended Extremities: no BLE edema Objective Last Vital Signs Temp 36.4 C L 08/13/21 18:52 Pulse 85 08/13/21 18:52 Resp 19 08/13/21 18:52 BP 125/82 08/13/21 18:52 Pulse Ox 90 L 08/13/21 18:52 Laboratory Results - last 24 hr 08/10/21 08/13/21 08/13/21 22:00 06:15 06:15 WBC 9.35 RBC 5.54 H Hgb 16.3 H Hct 50.3 H MCV 91 MCH 29.4 MCHC 32.4 RDW 14.3 Plt Count 192 MPV 9.7 Sodium 140 Potassium 3.4 L Chloride 96 L Carbon Dioxide 39.4 H Anion Gap 4.6 BUN 24 H Creatinine 0.5 L Estimated GFR/1.73 m2 >= 60.00 Glucose 129 H Calcium 10.0 Magnesium 1.9 Urine Legionella Ag Negative PAWSS Have you Been Recently Intoxicated or Drunk Within the Last 30 days?: No Have you Ever Experienced Previous Episodes of Alcohol Withdrawal?: No Have you ever Experienced Withdrawal Seizures?: No Have you ever Experienced Delirium Tremens(DT)s?: No Have you ever undergone Alcohol Rehabilitation Treatment (i.e, inpt ot outpatient treatment programs)?: No Have you ever Experienced Blackouts?: No Have you ever Combined Alcohol with other Downers within the last 90 days?: No Have you ever Combined Alcohol with any other Substance of Abuse during the last 90 days?: No Positive Blood Alcohol level on Presentation? [PCS.BAL]: No Evidence of Increased Autonomic Activity (i.e. HR>120, tremor, sweating, agitation, nausea)?: No Result: 0
[2021-08-13] MEDS: Melatonin 3 MG TAB PO (21:13)
[2021-08-13] MEDS: Docusate Sodium 100 MG CAP PO (21:13)
[2021-08-13] MEDS: Gabapentin 300 MG CAP 900 MG PO (21:13)
[2021-08-14] MEDS: Normal Saline Flush 10 ML SYR IVP ×2 (01:24→08:19)
[2021-08-14] MEDS: levoFLOXacin 750 MG/150 ML BAG 100 MG IVPB (01:24)
[2021-08-14 04:04] VITALS: BP 139/84; PULSE 81; RESP 20; TEMP 36.1; O2SAT 90
[2021-08-14] MEDS: Heparin 5,000 UNITS/ML VIAL 5000 UNITS SC (05:24)
[2021-08-14 06:48] LABS: Anion Gap 4.9 mmol/L (3-11); BUN 21 mg/dL (7-18); CO2 36.1 mmol/L (21.0-32.0); CREATININE 0.6 mg/dL (0.55-1.02); Calcium 10.2 mg/dL (8.5-10.1); Chloride 99 mmol/L (98-107); Glucose 126 mg/dL (74-106); Magnesium 1.8 mg/dL (1.8-2.4); Potassium 3.8 mmol/L (3.5-5.1); Sodium 140 mmol/L (136-145)
[2021-08-14 07:30] VITALS: BP 149/89; PULSE 83; RESP 19; TEMP 37.1; O2SAT 93
[2021-08-14] MEDS: Budesonide/Formoterol 160/4.5 6 GM 60 PUFF INH IH (07:50)
[2021-08-14 07:51] VITALS: PULSE 85; RESP 8; O2SAT 91
[2021-08-14] MEDS: Albuterol/Ipratropium 3 ML UPD VIAL UPD (07:51)
[2021-08-14] MEDS: Tiotropium Bromide-Respimat 10 PUFF INH 2 PUFF IH (07:51)
[2021-08-14 07:54] VITALS: RESP 8
[2021-08-14] MEDS: Insulin Aspart 300 UNITS/3 ML PEN SC ×3 (08:15→12:30)
[2021-08-14] MEDS: guaiFENesin 600 MG TABCR PO (08:17)
[2021-08-14] MEDS: dilTIAZem CD 120 MG CAPCR PO (08:18)
[2021-08-14] MEDS: Furosemide 40 MG TAB PO (08:18)
[2021-08-14] MEDS: ARIPiprazole 5 MG TAB 10 MG PO (08:18)
[2021-08-14] MEDS: buPROPion-CR 100 MG TABCR 200 MG PO (08:18)
[2021-08-14] MEDS: Pantoprazole 40 MG TABCR PO (08:18)
[2021-08-14] MEDS: Methylphenidate 10 MG TAB 20 MG PO (08:18)
[2021-08-14] MEDS: Atenolol 50 MG TAB PO (08:18)
[2021-08-14] MEDS: Lisinopril 20 MG TAB PO (08:18)
[2021-08-14] MEDS: predniSONE 20 MG TAB 40 MG PO (08:18)
[2021-08-14 09:23] VITALS: PULSE 107; PULSE 110; O2SAT 85; O2SAT 88
--- NOTE | 2021-08-14 09:38 | PDOC.CMPRO ---
- If Service Date Differs Date of service: 08/14/21 Time of Service: 09:38 Care Management Progress Note S/O: A: 51 year old female admitted to [facility] on 08/13/21 for COPD Exacerbation P: Rosibel is being closely monitored and treated. Anticipate, Rosibel will be discharged home when she is medically cleared by provider. Anticipate she will need [facility] SN/PT/OT/FOREIGN CLERK. Home Bi-pap or Trilogy is being considered. Patient will follow up with community providers and discharge plan of care as prescribed.
--- NOTE | 2021-08-14 10:54 | DSE_ITS ---
Date of service: 08/14/21 Time of Service: 10:55 DS: Diagnosis Discharge Diagnosis (1) Acute respiratory failure with hypoxia and hypercarbia: Status: Acute (2) Acute exacerbation of CHF (congestive heart failure): Status: Acute (3) COPD with acute exacerbation: Status: Acute (4) Hypomagnesemia: Status: Resolved (5) HELEN (obstructive sleep apnea): Status: Chronic (6) Diabetes mellitus: Status: Chronic (7) Tobacco abuse: Status: Chronic (8) DVT prophylaxis: Status: Acute (9) Discharge planning issues: Status: Acute Discharge Plan Disposition Patient Disposition: HOME W/HOME HEALTH SERVICE Condition: Improving Discharge Details Reason For Visit: COPDExacerbation,Acute Hypoxic Respiratory Failure Admit Date/Time: 08/10/21 03:16 Admit Provider: Douglas Aquino Attending Provider: Douglas Aquino Primary Care Provider: Maria Del Carmen Nogueira Hospital Course Hospital Course: This is a 51-year-old female patient with history of COPD and HELEN on CPAP at night but does not wear her device, who reported to the ED for evaluation of progressive dyspnea at rest.? She had hypoxemia at home with her pulse oximeter readings in the 70s on 2L NC home O2.? She had worsening symptoms over 3 days w ith dyspnea and cough.? She denied any fever.? In the ED she was visibly short of breath speaking in short sentences with 2-3 words.? She also had audible wheezing.? She had diminished breath sounds which improved with nebulizer and bedside ultrasound showed no overt CHF though the patient had known CHF.? She was initiated on Solu-Medrol, Levaquin IV and Lasix IV with improvement.? When hospitalist evaluated the patient she was on BiPAP but was not tolerating this well and was given Ativan which did help her to relax.? On BiPAP she appeared more comfortable and was oxygenating well in the 90% range.? The patient is a DNI but would want CPR.? She does have an elevated PCO2 and was admitted for treatment of acute respiratory failure with hypoxemia and hypercarbia.? Patient appears very sedentary and obese with short stature and nonpitting peripheral edema but was awake and speaking in more clear sentences at the time I evaluated her. She received IV lasix. Echocardiogram showed an estimated EF of 55%. No segmental wall motion abnormalities noted. No significant valvulopathy noted. Levofloxacin initiated; she will have one dose remaining to be taken the day after discharge (5 day course). She finished a 5 day course of prednisone. She felt significantly improved. O2 saturations in the 90-92 range predominately while on 3L O2 per NC. Her usual home supplementa O2 need is 2L. Encouragement to stop tobacco use given. PCP f/u in 1-2 weeks Pt to call Dr Lamar's office for f/u. Home Meds and New Rx's Prescriptions: New guaifenesin [Mucus Relief ER] 600 mg Tablet Extended Release 12hr 600 mg PO BID Qty: 0 0RF Spiriva Respimat 2.5 mcg/actuation Mist 2 puff inhalation DAILY Qty: 4 0RF levofloxacin 750 mg tablet 750 mg PO DAILY Qty: 1 0RF Rx Instructions: Take on 08/15/21 Continued rosuvastatin 40 mg tablet 40 mg PO HS desvenlafaxine succinate [Pristiq] 100 MG tablet extended release 24 hr 100 mg PO DAILY albuterol sulfate 8.5 GM HFA aerosol inhaler 1 - 2 puff Inhalation Q4H PRN gabapentin 300 MG capsule 900 mg PO HS atenolol 50 MG tablet 50 mg PO DAILY aripiprazole [Abilify] 10 MG tablet 10 mg PO DAILY nystatin 1 EACH powder 1 ea PO TID PRN fenofibrate 160 MG tablet 160 mg PO DAILY pantoprazole [Protonix] [address] for susp in packet 40 mg PO DAILY lisinopril 20 MG tablet 40 mg PO DAILY oxycodone-acetaminophen 10-325 mg Tablet 1 tab PO Q4H PRN (Reason: Pain) naloxone [Narcan] 4 mg/actuation [place],Non-Aerosol 4 mg Intranasal PRN PRN (Reason: excessive sedation) methylphenidate HCl [Ritalin] 20 mg Tablet 20 mg PO BID furosemide 20 mg tablet 20 mg PO DAILY PRN (Reason: Edema) insulin aspart U-100 [Novolog Flexpen U-100 Insulin] 100 unit/mL (3 mL) insulin pen 0 sliding scale dose SUBCUT AC Rx Instructions: MAXIMUM OF 50 UNITS PER 24 HOURS bupropion HCl 200 mg tablet sustained-release 12 hr 200 mg PO QAM Label Comments: TAKE 1 TABLET BY MOUTH ONCE DAILY IN THE MORNING Januvia 100 mg tablet 100 mg PO DAILY diltiazem HCl 120 mg capsule,extended release 24 hr 120 mg PO DAILY Levemir FlexTouch U-100 Insuln 100 unit/mL (3 mL) insulin pen 44 unit SUBCUT DAILY Advair HFA 230-21 mcg/actuation HFA aerosol inhaler 1 puff INHALATION BID Discontinued prednisone 20 mg tablet 40 mg PO DAILY Qty: 10 0RF cefpodoxime 200 mg tablet 200 mg PO BID Qty: 14 0RF Rx Instructions: must administer with a meal/food Discharge Instructions Instructions: Aspiration Pneumonia (DC) Stand Alone Forms: Nursing Discharge Form Referrals: Maria Del Carmen Nogueira PA [Primary Care Provider] - 08/27/21 1:15 pm Activity:: Activity as Tolerated Equipment/Supplies:: No Equipment Needed Diet:: Resume usual home diet DS: Summary Time Spent with Patient providing and/or coordinating discharge services: Greater than 30 minutes Status at Discharge Functional status at discharge: independent ambulation Overall status at discharge: patient is progressing back to baseline Mental Status: mental status grossly normal Speech and Movement: speech and movement normal Mood: congruent mood Affect: normal affect Exam Narrative Exam Narrative: General: Pleasant obese female sitting up in a chair, A&Ox3, speaking in full sentences, on 3L of O2 by NC. HEENT: EOMI, MMM. Sclera clear. Heart: RRR, no murmur Lungs: faint rales at B bases. Diminished air movement. Abdomen: soft, nontender, nondistended Extremities: no BLE edema Psych Mental Status: mental status grossly normal Speech and Movement: speech and movement normal Mood: congruent mood Affect: normal affect DS: Data Vitals/I&O Vitals and I&O: Vital Signs Temperature 37.1 C 08/14/21 07:30 Temperature Source Tympanic 08/14/21 07:30 Pulse 85 08/14/21 07:51 Pulse Rhythm Regular 08/14/21 08:33 Pulse 95 H 08/11/21 07:10 Respiratory Rate 19 08/14/21 07:30 Respiratory Effort 08/14/21 08:33 Respiratory Depth Normal 08/14/21 08:33 Respiratory Pattern Normal 08/14/21 08:33 Blood Pressure 149/89 H 08/14/21 07:30 Blood Pressure Mean 108 08/11/21 06:01 Blood Pressure Position Sitting 08/11/21 16:00 Pulse Oximetry 91 L 08/14/21 07:51 Oxygen Delivery Method Nasal Cannula 08/14/21 07:30 Oxygen Flow Rate 3 08/14/21 07:30 Fraction of Inspired Oxygen (FIO2) 30 08/11/21 10:30 Pain Level 0 08/14/21 07:30 Comment 08/13/21 11:26 Intake & Output 08/13/21 08/13/21 08/14/21 11:59 23:59 11:59 Intake Total 1092 / 2916.167 1824.167 / 2916.167 1230 / 1230 Output Total 3100 / 4770 1670 / 4770 2600 / 2600 Balance -2008 / -1853.833 154.167 / -1853.833 -1370 / -1370 Weight 111.3 kg 111.3 kg Intake: IV 270 / 664.167 394.167 / 664.167 Oral 822 / 2252 1430 / 2252 1210 / 1210 Output: Urine 3100 / 4770 1670 / 4770 2600 / 2600 Other: Urine Color Straw Yellow Yellow Urine Appearance Clear Clear Clear Urine Odor Normal Normal Normal Comment Void x1 in the bedside commode. Voiding Methods Bedside Commode Bedside Commode Toilet Data Completed and Pending Labs on day of discharge: Labs from last 24 hours 08/14/21 06:08 Sodium 140 Potassium 3.8 Chloride 99 Carbon Dioxide 36.1 H Anion Gap 4.9 BUN 21 H Creatinine 0.6 Estimated GFR/1.73 m2 >= 60.00 Glucose 126 H Calcium 10.2 H Magnesium 1.8 Preliminary micro results at discharge 08/10/21 06:55 Blood Culture - Preliminary Blood NO GROWTH 96 HOURS 08/10/21 03:00 Blood Culture - Preliminary Blood NO GROWTH 96 HOURS [facility] All Active Problems Pneumonia (Acute) Acute on chronic respiratory failure with hypoxia and hypercapnia (Acute) Discharge planning issues (Acute) DVT prophylaxis (Acute) Acute respiratory failure with hypoxia and hypercarbia (Acute) Hypoxia (Acute) Contraceptive management (Acute) GERD (gastroesophageal reflux disease) (Chronic) Abnormal uterine bleeding (Acute) Mood disorder (Acute) Hypercalcemia (Acute) HTN (hypertension) (Chronic) Discharge planning issues (Acute) HELEN (obstructive sleep apnea) (Chronic) DVT prophylaxis (Acute) Acute exacerbation of CHF (congestive heart failure) (Acute) Tobacco abuse (Chronic) Diabetes mellitus (Chronic) COPD with acute exacerbation (Acute) Primary osteoarthritis of both knees (Chronic 05/01/15) Medical History Chronic atrophic candidosis Depression with anxiety Diabetes mellitus type 2 in obese Hyperlipidemia Morbid obesity HELEN (obstructive sleep apnea) Smoker Surgical History Bilat partial saplinectomy Cholecystectomy (12/07/15) LAPAROSCOPIC WITH INTRAOPERATIVE CHOLANGIOGRAM/[facility] Ligation of fallopian tube Open Carpal Tunnel release Repair of umbilical hernia Tonsillectomy and adenoidectomy Family History Other COPD (chronic obstructive pulmonary disease) Cancer Social History Smoking/Tobacco Use Status: Current every day Tobacco Type: cigarettes Quit status: considering quitting Second Hand Exposure: Yes Smoking risk assessment performed?: Yes Alcohol Intake: never Drug use: Never Substance use type: does not use, opiates and painkillers Current gender identity: female Do you feel safe at home: Yes Do you feel safe in your relationship?: Yes Additional Social history: Lives with her male partner, who also smokes. Disabled. History History 5 Para 2 Hx # Term Pregnancies Multiple births Hx # Pregnancies Ectopic pregnancies AB induced Hx Number of Living Children AB spontaneous
[2021-08-14 11:10] VITALS: BP 150/92; PULSE 87; RESP 18; TEMP 36.9; O2SAT 92
--- NOTE | 2021-08-14 12:21 | PDOC.HHF2F ---
Home Health Certification Home Health Certification: 1. Encounter Date and Reason I certify that Rosibel Dinh was seen by Rajendra Gatica MD on 08/14/21 and that I had a [id number] encounter with this patient that meets the physician face to face encounter requirements. 2. Clinical Findings Supporting Skilled Need and Homebound Status I certify that home health services are medically necessary, include either intermittent jail and/or physical/speech therapy, and that this patient is homebound in that absences from the home require considerable and taxing effort and are infrequent or of short duration, or are attributable to the need to receive medical care. [X] (a) Attached documentation from encounter provides clinical findings supporting skilled need and homebound status (including what assistance patient requires to leave the home). The encounter with the patient was in whole, or in part, for the following medical condition, which is the primary reason for home health care: COPDExacerbation,Acute Hypoxic Respiratory Failure Intermediate:Monitor medication usage, cardiac and respiratory status. Dx of acute on chronic respiratory failure, COPD exacerbation and pneumonia. Physical Therapy and Occupation Therapy:Evaluation and assist with mobility, endurance, balance. VICE PRESIDENT OF BRAND MANAGEMENT: Assistance patient with community services available to her. Homebound: Requires assistance with another person outside of the home d/t poor mobility and endurance exacerbated by acute COPD exacerbation and pneumonia. 3. Certification and Authentication I certify that I composed the above information based on my clinical judgement relating to this patient's medical condition and, if applicable, clinical findings communicated to me by the NPP or inpatient physician who performed the Home Health Referral. All further orders will be obtained through Maria Del Carmen Nogueira (Community Based Physician - PCP)
--- NOTE | 2021-08-14 14:05 | PDOC.CMDIS ---
- If Service Date Differs Date of service: 08/14/21 Time of Service: 14:05 LACE Index Scoring Tool - Questions: Length of Stay (in days): 4 - 6 Acuity (Admit via E.D.?): Yes Comorbidities: Diabetes w/o Complication, Chronic Pulmonary Disease E.D. Visits: 2 - Answers: Total Score: 12 Risk of Readmission: High Risk Care Management Discharge Reason for Hospitalization: COPD Exacerbation Discharge Plan: Discharge home via private vehicle with family. Follow up with community providers and discharge plan of care as prescribed. New RX's transmitted to [facility] and New [facility] services ordered. Follow up appointment with PCP on 08/27/21 and Pulmonology on 09/14/21, as scheduled. Patient/Family Education Needs: Review discharge instructions, limitations, medications and plan to follow up with community providers and discharge plan of care as prescribed. ask me three. Services Needed at Discharge: Home Health Care Services ([facility] RN/PT/OT/AD OPERATIONS ASSOCIATE. CM notified [facility], face to face completed.)
[2021-08-14 14:39] LABS: Streptococcus Pneumoniae Ag, U Negative (Negative)
== END 2021-08-14 15:00 | disposition home health service (06) | DRG 193 ==
LOC: ER 03:19 → ICU 03:46 → MS 08-11 16:20
PROVIDERS: Internal Medicine; Student in an Organized Health Care Education/Training Program; Admitting Provider Family Medicine; Emergency Provider Emergency Medicine; PCP Physician Assistant Medical; Visit Provider Family Medicine
DX: J18.9 Pneumonia, unspecified organism (principal); J96.01 Acute respiratory failure with hypoxia; I50.33 Acute on chronic diastolic (congestive) heart failure; J96.02 Acute respiratory failure with hypercapnia; J96.21 Acute and chronic respiratory failure with hypoxia; J96.22 Acute and chronic respiratory failure with hypercapnia; J44.1 Chronic obstructive pulmonary disease with (acute) exacerbation; Z68.41 Body mass index [BMI] 40.0-44.9, adult; I50.813 Acute on chronic right heart failure; I11.0 Hypertensive heart disease with heart failure; G47.33 Obstructive sleep apnea (adult) (pediatric); E83.42 Hypomagnesemia; E11.9 Type 2 diabetes mellitus without complications; F17.210 Nicotine dependence, cigarettes, uncomplicated; K21.9 Gastro-esophageal reflux disease without esophagitis; E83.52 Hypercalcemia; M17.0 Bilateral primary osteoarthritis of knee; E66.01 Morbid (severe) obesity due to excess calories; I27.20 Pulmonary hypertension, unspecified; B36.8 Other specified superficial mycoses
CPT/HCPCS: 36415; 80048; 80053; 82805; 85027; 87040; 87449; 87635; 93005; 93306; 94618; 94640; 96365; 96368; 96375; 99285; 71045; 81003; 81015; 83735; 83880; 84100; 84443; 84484; 85025; 87070; 87205; 87899; 93010; 94660; 94667; 99223; 99232; 99233; 99239; 99291; J1644; J1940; J1956; J2060; J2930; J3480; J3490; J7512; J7613; J7620

== ENCOUNTER 2021-08-18 09:27 | Inpatient (IN) | payer MEDICARE, MEDICAID, SELFPAY ==
[2021-08-18] VITALS (70 sets, daily range): BP systolic 101–199; BP diastolic 45–116; PULSE 69–97; RESP 1–39; TEMP 31–36.7; O2SAT 72–96
--- NOTE | 2021-08-18 09:30 | RT.EKG_ITS ---
APPROVED REPORT Exam: Resting ECG Reason for Exam: SOB Patient Location: E HR:84 bpm ECG Measurements Heart Rate 84 AXIS CA 148 P 57 QRSd 99 QRS -2 QT 353 T 39 QTc 416 Conclusion Sinus rhythm...normal P axis, V-rate 60- 99
--- NOTE | 2021-08-18 09:45 | DI.RAD_ITS ---
Exam(s) XR PORTABLE CHEST AP EXAM: XR PORTABLE CHEST AP CLINICAL HISTORY: Shortness of breath. TECHNIQUE: 2D digital imaging was performed. COMPARISON: CR,XR XR PORTABLE CHEST AP from 08/10/2021 FINDINGS: Single AP portable view. Heart size unchanged in the mediastinum is not widened. Pulmonary venous hypertension pattern is unchanged from prior study. There does not appear to be con fluent airspace pulmonary edema. Mild blunting of the costophrenic angles indicating small bilateral pleural effusions. IMPRESSION: As above. No radiographic change compared 08/10/2021. DATA REPOSITORY: RADIATION DOSE DELIVERED: All CT scans at this facility use at least one of these dose optimization techniques: automated exposure control; mA and/or kV adjustment per patient size (includes targeted e xams where dose is matched to clinical indication); or iterative reconstruction.
[2021-08-18 10:12] LABS: Abs Immature Grans 0.26 10^3/uL (0.0-0.06); Absolute Basophil Count 0.08 10^3/uL (0.0-0.2); Absolute Lymphocyte Count 2.73 10^3/uL (1.2-3.4); Absolute Monocyte Count 1.32 10^3/uL (0.1-0.8); Absolute Neutrophil Count 12.36 10^3/uL (1.2-6.7); Basophils % 0.5; HCT 56.1 % (36.0-46.0); HGB 17.3 g/dL (11.2-15.7); Immature Grans % 1.6; Lymphocytes % 16.3; MCH 29.2 pg (27.0-33.0); MCHC 30.8 % (32.0-36.0); MCV 95 fL (80-95); MPV 9.2 fL (8.0-11.0); Monocytes % 7.9; Neutrophils % 73.7; Platelet Count 239 10^3/uL (130-400); RBC 5.93 10^6/uL (3.93-5.22); RDW 14.3 % (11.7-14.6); WBC 16.77 10^3/uL (4.4-10.8)
[2021-08-18 10:15] LABS: Source Nasopharynx
[2021-08-18 10:30] LABS: HCO3 (Venous) 42 mmol/L (23-28); O2 Sat (Venous) 79 %; TCO2 (Venous) 37 mmol/L (24-29); pH (Venous) 7.35 (7.31-7.41); pO2 (Venous) 39 mmHg
[2021-08-18 10:33] LABS: BE (Venous) > 15 mmol/L (-2-3); pCO2 (Venous) 76 mmHg (41-51)
[2021-08-18 10:34] LABS: ALT 18 U/L (14-59); AST 14 U/L (15-37); Albumin 3.3 g/dL (3.4-5.0); Alkaline Phosphatase 70 U/L (46-116); Anion Gap 1.3 mmol/L (3-11); BUN 11 mg/dL (7-18); Bilirubin, Total 0.5 mg/dL (0.2-1.0); CO2 38.7 mmol/L (21.0-32.0); CREATININE 0.6 mg/dL (0.55-1.02); Calcium 10.4 mg/dL (8.5-10.1); Chloride 98 mmol/L (98-107); Glucose 267 mg/dL (74-106); Magnesium 1.7 mg/dL (1.8-2.4); NT-proBNP 741 pg/mL (<300); Potassium 4.3 mmol/L (3.5-5.1); Sodium 138 mmol/L (136-145); Total Protein 8.1 g/dL (6.4-8.2); Troponin I < 50 ng/L (<or=60)
[2021-08-18] MEDS: methylPREDNISolone SUCC 125 MG VIAL IVP (10:36)
[2021-08-18] MEDS: Albuterol/Ipratropium 3 ML UPD VIAL UPD ×4 (10:37→20:32)
[2021-08-18] MEDS: Furosemide 20 MG/2 ML VIAL IVP (10:45)
--- NOTE | 2021-08-18 10:52 | ED.GENADUL_ITS ---
Discharge Plan Disposition Patient Disposition: [facility] INPATIENT Condition: Critical Discharge Details Chief Complaint: SOB Clinical Impression: COPD with acute exacerbation, Acute exacerbation of CHF (congestive heart failure), Acute on chronic respiratory failure with hypoxia and hypercapnia Admit Date/Time: 08/18/21 11:47 Admit Provider: Rajendra Gatica Attending Provider: Rajendra Gatica Primary Care Provider: Maria Del Carmen Nogueira ED Provider: Johnathon Toledo Discharge Instructions Activity:: Activity as Tolerated Equipment/Supplies:: No Equipment Needed Diet:: Low Sodium Discharge Orders Discharge Orders: Discharge Order (Routine); Ordered 08/22/21 Ordered By: Sebastian Gonzalez Discharge Data Discharge Date/Time-TO BE ENTERED AT DEPARTURE: 08/18/21 13:22 Medical Decision Making Patient presenting to the emergency department for chief complaint of shortness of breath and hypoxia. Patient reports that she was discharged from the hospital recently and has finished her antibiotics and has been using her inhalers but has been worsening over the past couple days. This morning she woke up and had hypoxia with significant shortness of breath. Physical exam shows a overweight 51-year-old female patient in significant respiratory distress with only being able to communicate in 2-3 word sentences. Significant labored breathing and tachypnea and tachycardia along with hypoxia is noted. Diffuse wheezing is heard at this time with some diminished lung sounds in the bases. We will plan on immediately getting patient on BiPAP, giving duo nebs, steroids and standard screening labs with chest x-ray. Please see physician interpretation for full interpretation of EKG but patient appears to be in sinus rhythm with no acute signs of ischemia. Review of labs show elevated WBC with also elevated hemoglobin hematocrit, neutrophils and monocytes are also elevated. VBG shows a compensated respiratory acidosis with critical finding of PCO2 of 76, bicarb of 42 and total CO2 of 37. VBG oxygen saturation is 79%. CMP shows carbon dioxide of 38.7, and anion gap of 1.3, glucose 267, calcium 10.4, magnesium 1.7, AST of 14, BNP of 741. Initial troponin is not detected. Reassessed patient and patient continuing to have signs of respiratory distress while on BiPAP. We will continue duo nebs and will give morphine to help slow respiratory rate to allow further expansion of the lungs by BiPAP. We will also give 20 IV Lasix to start diuresis due to elevated BNP that is higher than previous admission. Patient's breathing did improve after some morphine but still tachypneic on BiPAP. Waiting the read review of chest x-ray but on my comparison to previous chest x-ray it shows slight improvement of previous findings. Contacted hospitalist for admission of patient to ICU due to respiratory distress secondary to COPD. Hospitalist in agreement with plan and orders were placed for admission. Imaging Data Radiologic Study: Imaging: X-Ray Radiologist's impression: FINDINGS: Lungs and Pleural spaces: Patient's chin overlies lung apices. Persistent diffuse interstitial prominence. Trace bilateral pleural effusions. Heart/Mediastinum: Similar enlarged cardiac silhouette. Bones/joints: Stable appearance. IMPRESSION: Persistent diffuse interstitial prominence, likely edema. Trace bilateral pleural effusions HPI General Mode of arrival: wheelchair . Date/Time Provider Initiated Documentation: 08/18/21 09:38 . Limitations to Documentation: no limitations . Information obtained by: patient, family, RN notes reviewed and old records reviewed . History of Present Illness 51 year old F presents to the emergency department with the chief complaint of Shortness of Breath, described as severe and similar to prior episodes, Quality is described as other (denies pain), Patient started experiencing this week(s) (2) and it has been constant (Worsening over the past couple days). No relieving factors improve symptom(s), No exacerbating factors reported . Patient did receive the following treatments prior to arrival, other (Finished antibiotic and has been taking inhalers) Related Data Home Medications Medication Instructions Recorded Confirmed albuterol sulfate 90 mcg/actuation 1 - 2 puff inhalation Q4H PRN 03/21/14 08/18/21 aerosol inhaler desvenlafaxine succinate 100 mg 100 mg PO DAILY 03/21/14 08/18/21 tablet,extended release 24 hr (Pristiq) aripiprazole 10 mg tablet (Abilify) 10 mg PO DAILY 04/22/17 08/18/21 atenolol 50 mg tablet 50 mg PO DAILY 04/22/17 08/18/21 fenofibrate 160 mg tablet 160 mg PO DAILY 04/22/17 08/18/21 gabapentin 300 mg capsule 900 mg PO HS 04/22/17 08/18/21 nystatin 500 million unit oral 1 ea PO TID PRN 04/22/17 08/18/21 powder pantoprazole 40 mg granules 40 mg PO DAILY 04/22/17 08/18/21 delayed-release for susp in packet (Protonix) lisinopril 20 mg tablet 40 mg PO DAILY 04/23/17 08/18/21 naloxone 4 mg/actuation nasal 4 mg intranasal PRN PRN excessive 04/29/18 08/18/21 spray (Narcan) sedation oxycodone-acetaminophen 10 mg-325 1 tab PO QID PRN PRN Pain 04/29/18 08/18/21 mg tablet methylphenidate HCl 20 mg tablet 20 mg PO BID 11/15/18 08/18/21 (Ritalin) rosuvastatin 40 mg tablet 40 mg PO HS 04/12/19 08/18/21 bupropion HCl 200 mg tablet,12 hr 200 mg PO QAM 01/15/21 08/18/21 sustained-release diltiazem HCl 120 mg capsule,24 120 mg PO DAILY 01/15/21 08/18/21 hr,extended release fluticasone propionate 230 1 puff inhalation BID 01/15/21 08/18/21 mcg-salmeterol 21 mcg/actuation HFA inhaler (Advair HFA) insulin aspart U-100 100 unit/mL 0 sliding scale dose subcut AC 01/15/21 08/18/21 (3 mL) subcutaneous pen (Novolog Flexpen U-100 Insulin aspart) insulin detemir U-100 100 unit/mL 44 unit subcut DAILY 01/15/21 08/18/21 (3 mL) subcutaneous pen (Levemir FlexTouch U-100 Insulin) sitagliptin 100 mg tablet (Januvia) 100 mg PO DAILY 01/15/21 08/18/21 guaifenesin 600 mg tablet, 600 mg PO BID #0 tabs 08/14/21 08/18/21 extended release 12 hr (Mucus Relief ER) tiotropium bromide 2.5 2 puff inhalation DAILY #4 grams 08/14/21 08/18/21 mcg/actuation mist for inhalation (Spiriva Respimat) cefpodoxime 200 mg tablet 400 mg PO BID 5 days #20 tabs 08/22/21 empagliflozin 10 mg tablet 10 mg PO QAM #30 tabs 08/22/21 (Jardiance) magnesium oxide 400 mg (241.3 mg 400 mg PO HS #30 tabs 08/22/21 magnesium) tablet prednisone 20 mg tablet 40 mg PO DAILY 5 days #10 tabs 08/22/21 torsemide 20 mg tablet 20 mg PO DAILY #30 tabs 08/22/21 Previous Rx's Medication Instructions Recorded guaifenesin 600 mg tablet, 600 mg PO BID #0 tabs 08/14/21 extended release 12 hr (Mucus Relief ER) tiotropium bromide 2.5 2 puff inhalation DAILY #4 grams 08/14/21 mcg/actuation mist for inhalation (Spiriva Respimat) cefpodoxime 200 mg tablet 400 mg PO BID 5 days #20 tabs 08/22/21 empagliflozin 10 mg tablet 10 mg PO QAM #30 tabs 08/22/21 (Jardiance) magnesium oxide 400 mg (241.3 mg 400 mg PO HS #30 tabs 08/22/21 magnesium) tablet prednisone 20 mg tablet 40 mg PO DAILY 5 days #10 tabs 08/22/21 torsemide 20 mg tablet 20 mg PO DAILY #30 tabs 08/22/21 Allergies Allergy/AdvReac Type Severity Reaction Status Date / Time amoxicillin Allergy Skin Rash Unverified 08/18/21 09:53 Sulfa (Sulfonamide Allergy Unverified 08/18/21 09:53 Antibiotics) Antiobiotics AdvReac Intermediate Rash,vomitt Uncoded 08/18/21 09:53 ing General Stated Complaint: SOB HEATHER: 2 Review of Systems Unobtainable due to (Difficult to obtain due to respiratory distress) Constitutional Constitutional: Denies fever(s) and Reports malaise Cardiovascular Cardiovascular: Denies chest pain, Denies edema and Reports dyspnea Respiratory Respiratory: Reports as per HPI, Reports dyspnea and Reports wheezing Allergic/Immunologic Allergic/Immunologic: Reports wheezing PFSH All Active Problems (Updated 08/22/21 @ 15:42 by Johnathon Toledo NP) Medication monitoring encounter (Acute) Pneumonia (Acute) Acute on chronic respiratory failure with hypoxia and hypercapnia (Acute) Contraceptive management (Acute) GERD (gastroesophageal reflux disease) (Chronic) Abnormal uterine bleeding (Acute) Mood disorder (Acute) Hypercalcemia (Acute) HTN (hypertension) (Chronic) Discharge planning issues (Acute) HELEN (obstructive sleep apnea) (Chronic) DVT prophylaxis (Acute) Acute exacerbation of CHF (congestive heart failure) (Acute) Tobacco abuse (Chronic) Diabetes mellitus (Chronic) COPD with acute exacerbation (Acute) Primary osteoarthritis of both knees (Chronic 05/01/15) Medical History Chronic atrophic candidosis Depression with anxiety Diabetes mellitus type 2 in obese Hyperlipidemia Morbid obesity HELEN (obstructive sleep apnea) Smoker Surgical History Bilat partial saplinectomy Cholecystectomy (12/07/15) LAPAROSCOPIC WITH INTRAOPERATIVE CHOLANGIOGRAM/[facility] Ligation of fallopian tube Open Carpal Tunnel release Repair of umbilical hernia Tonsillectomy and adenoidectomy Family History Other COPD (chronic obstructive pulmonary disease) Cancer Social History Smoking/Tobacco Use Status: Former Tobacco Use Quit status: considering quitting Second Hand Exposure: Yes Smoking risk assessment performed?: Yes Alcohol Intake: never Drug use: Never Substance use type: does not use, opiates and painkillers Current gender identity: female Do you feel safe at home: Yes Do you feel safe in your relationship?: Yes Additional Social history: Lives with her male partner, who also smokes. Disabled. History History 5 Para 2 Hx # Term Pregnancies Multiple births Hx # Pregnancies Ectopic pregnancies AB induced Hx Number of Living Children AB spontaneous Exam Const General: cooperative, in distress severe and respiratory and ill appearing acutely and chronically Nutritional Appearance: obese Orientation: alert, awake and oriented x3 HENMT Head: normocephalic and atraumatic Ears: hearing grossly normal bilaterally General nose exam: external nose normal Resp Effort & Inspection: labored, respiratory distress, tachypneic and uses accessory muscles Auscultation: wheezes scattered wheezes Cardio Rate: tachycardic Rhythm: regular rhythm Heart Sounds: S1 normal and S2 normal Skin General skin exam: no rashes or lesions noted and dry skin Neuro General: patient alert, patient awake, patient oriented x3, moves all extremities, no focal motor deficits, not confused and not obtunded Extrem General: capillary refill normal Course Vital Signs Vital signs: Vital Signs Temperature 36.5 C 08/18/21 09:40 Pulse 97 H 08/18/21 09:40 Respiratory Rate 39 H 07/02/22 09:40 Blood Pressure 199/116 H 08/18/21 09:40 Pulse Oximetry 82 L 08/18/21 09:40 Temperature 36.5 C 08/18/21 09:40 Temperature Source Temporal Artery Scan 08/18/21 09:40 Pulse 76 08/18/21 10:40 Respiratory Rate 34 H 08/18/21 10:40 Respiratory Effort Labored 08/18/21 09:48 Respiratory Depth Shallow 08/18/21 09:48 Respiratory Pattern Tachypnea 08/18/21 09:48 Blood Pressure 199/116 H 08/18/21 09:40 Blood Pressure Position Sitting 08/18/21 09:40 Pulse Oximetry 91 L 08/18/21 10:40 Oxygen Delivery Method Nasal Cannula 08/18/21 09:40 Oxygen Flow Rate 10 08/18/21 09:40 Pain Level 0 08/18/21 09:40 Lab/Test Results Lab/Test Results: Laboratory Tests Range/Units 08/18/21 08/18/21 08/18/21 10:06 10:06 10:12 WBC (4.4-10.8) 10^3/uL 16.77 H RBC (3.93-5.22) 10^6/uL 5.93 H Hgb (11.2-15.7) g/dL 17.3 H Hct (36.0-46.0) % 56.1 H MCV (80-95) fL 95 MCH (27.0-33.0) pg 29.2 MCHC (32.0-36.0) % 30.8 L RDW (11.7-14.6) % 14.3 Plt Count (130-400) 10^3/uL 239 MPV (8.0-11.0) fL 9.2 Immature Gran % 1.6 Neutrophils % 73.7 Lymphocytes % 16.3 Monocytes % 7.9 Eosinophils % 0.0 Basophils % 0.5 Nucleated RBC % (0.0-0.3) % 0.0 Absolute Neutrophils (1.2-6.7) 10^3/uL 12.36 H Absolute Lymphocytes (1.2-3.4) 10^3/uL 2.73 Absolute Monocytes (0.1-0.8) 10^3/uL 1.32 H Absolute Eosinophils (0.0-0.7) 10^3/uL 0.00 Absolute Basophils (0.0-0.2) 10^3/uL 0.08 VBG pH (7.31-7.41) VBG pCO2 (41-51) mmHg VBG pO2 mmHg VBG HCO3 (23-28) mmol/L VBG Total CO2 (24-29) mmol/L VBG O2 Saturation % VBG Base Excess (-2-3) mmol/L Sodium (136-145) mmol/L 138 Potassium (3.5-5.1) mmol/L 4.3 Chloride (98-107) mmol/L 98 Carbon Dioxide (21.0-32.0) mmol/L 38.7 H Anion Gap (3-11) mmol/L 1.3 L BUN (7-18) mg/dL 11 Creatinine (0.55-1.02) mg/dL 0.6 Estimated GFR/1.73 m2 (mL/min/1.73m2) >= 60.00 Glucose (74-106) mg/dL 267 H Calcium (8.5-10.1) mg/dL 10.4 H Magnesium (1.8-2.4) mg/dL 1.7 L Total Bilirubin (0.2-1.0) mg/dL 0.5 AST (15-37) U/L 14 L ALT (14-59) U/L 18 Alkaline Phosphatase (46-116) U/L 70 Troponin I (<or=60) ng/L < 50 NT-Pro-B Natriuret Pep (<300) pg/mL 741 H Total Protein (6.4-8.2) g/dL 8.1 Albumin (3.4-5.0) g/dL 3.3 L COVID-19 Source Nasopharynx Range/Units 08/18/21 10:27 WBC (4.4-10.8) 10^3/uL RBC (3.93-5.22) 10^6/uL Hgb (11.2-15.7) g/dL Hct (36.0-46.0) % MCV (80-95) fL MCH (27.0-33.0) pg MCHC (32.0-36.0) % RDW (11.7-14.6) % Plt Count (130-400) 10^3/uL MPV (8.0-11.0) fL Immature Gran % Neutrophils % Lymphocytes % Monocytes % Eosinophils % Basophils % Nucleated RBC % (0.0-0.3) % Absolute Neutrophils (1.2-6.7) 10^3/uL Absolute Lymphocytes (1.2-3.4) 10^3/uL Absolute Monocytes (0.1-0.8) 10^3/uL Absolute Eosinophils (0.0-0.7) 10^3/uL Absolute Basophils (0.0-0.2) 10^3/uL VBG pH (7.31-7.41) 7.35 VBG pCO2 (41-51) mmHg 76 H* VBG pO2 mmHg 39 VBG HCO3 (23-28) mmol/L 42 H VBG Total CO2 (24-29) mmol/L 37 H VBG O2 Saturation % 79 VBG Base Excess (-2-3) mmol/L > 15 H Sodium (136-145) mmol/L Potassium (3.5-5.1) mmol/L Chloride (98-107) mmol/L Carbon Dioxide (21.0-32.0) mmol/L Anion Gap (3-11) mmol/L BUN (7-18) mg/dL Creatinine (0.55-1.02) mg/dL Estimated GFR/1.73 m2 (mL/min/1.73m2) Glucose (74-106) mg/dL Calcium (8.5-10.1) mg/dL Magnesium (1.8-2.4) mg/dL Total Bilirubin (0.2-1.0) mg/dL AST (15-37) U/L ALT (14-59) U/L Alkaline Phosphatase (46-116) U/L Troponin I (<or=60) ng/L NT-Pro-B Natriuret Pep (<300) pg/mL Total Protein (6.4-8.2) g/dL Albumin (3.4-5.0) g/dL COVID-19 Source Critical Care Time Critical Care Time Critical Care Time: Yes Total Critical Care Time: 45 Attestation: At least 45 minutes of critical care time with high probability of imminent or life threatening deterioration in the patient?s condition without interventions and treatment. This time was spent evaluating patient, ordering treatment, reassessing patient's condition to ensure stabilization of patient, reviewing results along with discussion of case to hospitalist for ICU level admission.
[2021-08-18] MEDS: MORPHine 10 MG/ML VIAL 2 MG IVP ×2 (10:58→11:07)
[2021-08-18 11:07] LABS: COVID-19 PCR Negative (Negative)
--- NOTE | 2021-08-18 11:38 | DI.VRAD_ITS ---
PROCEDURE INFORMATION: Exam: XR Chest Exam date and time: 08/18/2021 11:06 AM Age: 51 years old Clinical indication: Shortness of breath TECHNIQUE: Imaging protocol: Radiologic exam of the chest. Views: 1 view. COMPARISON: XR PORTABLE CHEST AP 08/10/2021 2:48 AM FINDINGS: Lungs and Pleural spaces: Patient's chin overlies lung apices. Persistent diffuse interstitial prominence. Trace bilateral pleural effusions. Heart/Mediastinum: Similar enlarged cardiac silhouette. Bones/joints: Stable appearance. IMPRESSION: Persistent diffuse interstitial prominence, likely edema. Trace bilateral pleural effusions. Dictated and Authenticated by: Jude Bañuelos MD. Ordering:KATRINA Diego MD
[2021-08-18 13:02] LABS: Lab Add On Test DONE
[2021-08-18 13:58] LABS: Procalcitonin < 0.1 ng/mL
[2021-08-18] MEDS: Nystatin 500000 UNITS/5 ML SUSP 5ML CUP PO ×2 (14:17→20:32)
[2021-08-18] MEDS: Furosemide 40 MG/4 ML VIAL (14:33)
[2021-08-18] MEDS: Normal Saline Flush 10 ML SYR IVP ×2 (14:42→16:09)
--- NOTE | 2021-08-18 14:53 | NUR.NOTE ---
Respiratory therapist is called to place patient back on BIPAP since sats are in the mid 80's on 8 liters via oxymask. Patient quite wheezey and therefore 40mg of Lasix is given IVP. Nursing Note:
--- NOTE | 2021-08-18 14:56 | NUR.NOTE ---
Respiratory therapist places patient on BIPAP at 60% FI02.Nursing Note:
--- NOTE | 2021-08-18 15:05 | NUR.NOTE ---
Lab draws troponin.Nursing Note:
[2021-08-18 15:27] LABS: Troponin I < 50 ng/L (<or=60)
[2021-08-18] MEDS: MORPHine 2 MG/ML SYR IVP (16:09)
[2021-08-18] MEDS: Furosemide 40 MG/4 ML VIAL IVP (16:09)
[2021-08-18] MEDS: Insulin Aspart 300 UNITS/3 ML PEN SC (17:16)
--- NOTE | 2021-08-18 17:19 | W.PM.HP.N ---
Date of service: 08/18/21 Time of Service: 17:19 Assessment and Plan Assessment and plan (1) Acute on chronic respiratory failure with hypoxia and hypercapnia: Status: Acute Assessment and plan: Likely related to pulmonary edema and COPD exacerbation in a smoker with HELEN and likely obesity hypoventilation syndrom. VBG with pCO2 of 76. pO2 39. pH 7.35. Now on BiPAP. PRN IV morphine for work of breathing. (2) Acute exacerbation of CHF (congestive heart failure): Status: Acute Assessment and plan: IV lasix: 20mg in ED. 40mg in ICU with another repeat 40mg. Echo on 08/13/21: Mild concentric left ventricular hypertrophy.? Estimated ejection fraction is 55%.? No segmental wall motion abnormalities are identified Normal right ventricular size and systolic function. RVSP of 40mmHg. (3) COPD with acute exacerbation: Status: Acute Assessment and plan: Schedule duonebs. PRN albuterol. Symbicort Spiriva. IV methyprednisolone 125mg given in ED Cont 60 mg IV Q8 hours. (4) Tobacco abuse: Status: Chronic Assessment and plan: Nicotine patch. (5) Diabetes mellitus type 2 in obese: Assessment and plan: Basal/bolus insulin. Home dose of Lantus; not eating currently on BiPAP but is on steroids so will likely require her usual dose. Adjust as necessary. DM diet. (6) Discharge planning issues: Status: Acute Assessment and plan: DNI. Will need to discuss her code status when she is mentating more clearly. History of Present Illness Narrative: This is a 51 yo female with a PMH of COPD, HELEN prescribed CPAP but not using, DM2 on insulin, morbid obesity, depression and anxiety, tobacco abuse d.o. She was recently admitted to [facility] on 08/10/21, discharged on 08/14/21 for COPD exacerbation with resp failure. She was placed on Spiriva and Levaquin during that admission and finished a 5 day course of levaquin for bronchitis. She presented currently with c/o shortness of breath worsening of the last several days. No CP reported. No N/V/abd pain. No F/C. Temperature?36.5 C?08/18/21 09:40Pulse?97 H?08/18/21 09:40Respiratory Rate?39 H?08/18/21 09:40Blood Pressure?199/116 H?08/18/21 09:40Pulse Oximetry?82. She was placed on BiPAP in the ED. WBC elevated at 16.77. Hgb elevated at 17.3. Na 138. K 4.3. Creatinine 0.6. Mg 1.7. Troponin neg. BNP 741. She was given IV morphine for increased work of breathing; after 2 doses her RR did improve. Lasix 20mg IV administered. Admitted to the ICU for further care. Review of Systems All systems reviewed & are unremarkable except as noted in HPI and below PFSH All Active Problems Pneumonia (Acute) Acute on chronic respiratory failure with hypoxia and hypercapnia (Acute) Contraceptive management (Acute) GERD (gastroesophageal reflux disease) (Chronic) Abnormal uterine bleeding (Acute) Mood disorder (Acute) Hypercalcemia (Acute) HTN (hypertension) (Chronic) Discharge planning issues (Acute) HELEN (obstructive sleep apnea) (Chronic) DVT prophylaxis (Acute) Acute exacerbation of CHF (congestive heart failure) (Acute) Tobacco abuse (Chronic) Diabetes mellitus (Chronic) COPD with acute exacerbation (Acute) Primary osteoarthritis of both knees (Chronic 05/01/15) Medical History Chronic atrophic candidosis Depression with anxiety Diabetes mellitus type 2 in obese Hyperlipidemia Morbid obesity HELEN (obstructive sleep apnea) Smoker Surgical History Bilat partial saplinectomy Cholecystectomy (12/07/15) LAPAROSCOPIC WITH INTRAOPERATIVE CHOLANGIOGRAM/[facility] Ligation of fallopian tube Open Carpal Tunnel release Repair of umbilical hernia Tonsillectomy and adenoidectomy Family History Other COPD (chronic obstructive pulmonary disease) Cancer Social History Smoking/Tobacco Use Status: Former Tobacco Use Quit status: considering quitting Second Hand Exposure: Yes Smoking risk assessment performed?: Yes Alcohol Intake: never Drug use: Never Substance use type: does not use, opiates and painkillers Current gender identity: female Do you feel safe at home: Yes Do you feel safe in your relationship?: Yes Additional Social history: Lives with her male partner, who also smokes. Disabled. History History 5 Para 2 Hx # Term Pregnancies Multiple births Hx # Pregnancies Ectopic pregnancies AB induced Hx Number of Living Children AB spontaneous Meds Allergies and Home Medications Allergies Allergy/AdvReac Type Severity Reaction Status Date / Time amoxicillin Allergy Skin Rash Unverified 08/18/21 09:53 Sulfa (Sulfonamide Allergy Unverified 08/18/21 09:53 Antibiotics) Antiobiotics AdvReac Intermediate Rash,vomitt Uncoded 08/18/21 09:53 ing Home Medications Medication Instructions Recorded Confirmed Type albuterol sulfate 90 mcg/actuation 1 - 2 puff inhalation Q4H PRN 03/21/14 08/18/21 History aerosol inhaler desvenlafaxine succinate 100 mg 100 mg PO DAILY 03/21/14 08/18/21 History tablet,extended release 24 hr (Pristiq) aripiprazole 10 mg tablet (Abilify) 10 mg PO DAILY 04/22/17 08/18/21 History atenolol 50 mg tablet 50 mg PO DAILY 04/22/17 08/18/21 History fenofibrate 160 mg tablet 160 mg PO DAILY 04/22/17 08/18/21 History gabapentin 300 mg capsule 900 mg PO HS 04/22/17 08/18/21 History nystatin 500 million unit oral 1 ea PO TID PRN 04/22/17 08/18/21 History powder pantoprazole 40 mg granules 40 mg PO DAILY 04/22/17 08/18/21 History delayed-release for susp in packet (Protonix) lisinopril 20 mg tablet 40 mg PO DAILY 04/23/17 08/18/21 History naloxone 4 mg/actuation nasal 4 mg intranasal PRN PRN excessive 04/29/18 08/18/21 History spray (Narcan) sedation oxycodone-acetaminophen 10 mg-325 1 tab PO QID PRN PRN Pain 04/29/18 08/18/21 History mg tablet methylphenidate HCl 20 mg tablet 20 mg PO BID 11/15/18 08/18/21 History (Ritalin) rosuvastatin 40 mg tablet 40 mg PO HS 04/12/19 08/18/21 History furosemide 20 mg tablet 20 mg PO DAILY PRN Edema 01/14/21 08/18/21 History bupropion HCl 200 mg tablet,12 hr 200 mg PO QAM 01/15/21 08/18/21 History sustained-release diltiazem HCl 120 mg capsule,24 120 mg PO DAILY 01/15/21 08/18/21 History hr,extended release fluticasone propionate 230 1 puff inhalation BID 01/15/21 08/18/21 History mcg-salmeterol 21 mcg/actuation HFA inhaler (Advair HFA) insulin aspart U-100 100 unit/mL 0 sliding scale dose subcut AC 01/15/21 08/18/21 History (3 mL) subcutaneous pen (Novolog Flexpen U-100 Insulin aspart) insulin detemir U-100 100 unit/mL 44 unit subcut DAILY 01/15/21 08/18/21 History (3 mL) subcutaneous pen (Levemir FlexTouch U-100 Insulin) sitagliptin 100 mg tablet (Januvia) 100 mg PO DAILY 01/15/21 08/18/21 History guaifenesin 600 mg tablet, 600 mg PO BID #0 tabs 08/14/21 08/18/21 Rx extended release 12 hr (Mucus Relief ER) tiotropium bromide 2.5 2 puff inhalation DAILY #4 grams 08/14/21 08/18/21 Rx mcg/actuation mist for inhalation (Spiriva Respimat) Exam Narrative Exam Narrative: Obese female lying in bed with BiPAP in place. Increased RR noted. Const General: ill appearing Orientation: awake Eyes General: appearance normal, both eyes and all related structures Sclera: sclerae normal Resp Effort & Inspection: tachypneic Auscultation: rales and wheezes Cardio Rate: regular rate Rhythm: regular rhythm Heart Sounds: S1 normal and S2 normal GI Inspection: obesity Palpation: soft and nontender Neuro General: no focal motor deficits and patient confused Extrem General: no calf tenderness and edema Laterality: bilateral (trace) Results Labs Result diagrams: 08/18/21 10:06 08/18/21 10:06 Labs: Laboratory Results - last 24 hr 08/18/21 08/18/21 08/18/21 10:06 10:06 10:12 WBC 16.77 H RBC 5.93 H Hgb 17.3 H Hct 56.1 H MCV 95 MCH 29.2 MCHC 30.8 L RDW 14.3 Plt Count 239 MPV 9.2 Immature Gran % 1.6 Neutrophils % 73.7 Lymphocytes % 16.3 Monocytes % 7.9 Eosinophils % 0.0 Basophils % 0.5 Nucleated RBC % 0.0 Absolute Neutrophils 12.36 H Absolute Lymphocytes 2.73 Absolute Monocytes 1.32 H Absolute Eosinophils 0.00 Absolute Basophils 0.08 VBG pH VBG pCO2 VBG pO2 VBG HCO3 VBG Total CO2 VBG O2 Saturation VBG Base Excess Sodium 138 Potassium 4.3 Chloride 98 Carbon Dioxide 38.7 H Anion Gap 1.3 L BUN 11 Creatinine 0.6 Estimated GFR/1.73 m2 >= 60.00 Glucose 267 H Calcium 10.4 H Magnesium 1.7 L Total Bilirubin 0.5 AST 14 L ALT 18 Alkaline Phosphatase 70 Troponin I < 50 NT-Pro-B Natriuret Pep 741 H Total Protein 8.1 Albumin 3.3 L Procalcitonin COVID-19 Source Nasopharynx SARS-CoV-2 (PCR) Negative Add-On Test Request 08/18/21 08/18/21 08/18/21 10:27 10:27 10:27 WBC RBC Hgb Hct MCV MCH MCHC RDW Plt Count MPV Immature Gran % Neutrophils % Lymphocytes % Monocytes % Eosinophils % Basophils % Nucleated RBC % Absolute Neutrophils Absolute Lymphocytes Absolute Monocytes Absolute Eosinophils Absolute Basophils VBG pH 7.35 VBG pCO2 76 H* VBG pO2 39 VBG HCO3 42 H VBG Total CO2 37 H VBG O2 Saturation 79 VBG Base Excess > 15 H Sodium Potassium Chloride Carbon Dioxide Anion Gap BUN Creatinine Estimated GFR/1.73 m2 Glucose Calcium Magnesium Total Bilirubin AST ALT Alkaline Phosphatase Troponin I NT-Pro-B Natriuret Pep Total Protein Albumin Procalcitonin < 0.1 COVID-19 Source SARS-CoV-2 (PCR) Add-On Test Request DONE 08/18/21 15:08 WBC RBC Hgb Hct MCV MCH MCHC RDW Plt Count MPV Immature Gran % Neutrophils % Lymphocytes % Monocytes % Eosinophils % Basophils % Nucleated RBC % Absolute Neutrophils Absolute Lymphocytes Absolute Monocytes Absolute Eosinophils Absolute Basophils VBG pH VBG pCO2 VBG pO2 VBG HCO3 VBG Total CO2 VBG O2 Saturation VBG Base Excess Sodium Potassium Chloride Carbon Dioxide Anion Gap BUN Creatinine Estimated GFR/1.73 m2 Glucose Calcium Magnesium Total Bilirubin AST ALT Alkaline Phosphatase Troponin I < 50 NT-Pro-B Natriuret Pep Total Protein Albumin Procalcitonin COVID-19 Source SARS-CoV-2 (PCR) Add-On Test Request Last Vital Signs Temp 36.5 C 08/18/21 16:30 Pulse 77 08/18/21 16:35 Resp 39 H 08/18/21 17:00 BP 124/62 08/18/21 16:35 Pulse Ox 95 08/18/21 17:00
[2021-08-18] MEDS: Enoxaparin 40 MG/0.4 ML SYR SC (20:31)
[2021-08-18] MEDS: ROSUVASTATIN 20 MG TAB 40 MG PO (20:32)
[2021-08-18] MEDS: guaiFENesin 600 MG TABCR PO (20:32)
[2021-08-18] MEDS: Budesonide/Formoterol 160/4.5 6 GM 60 PUFF INH IH (20:32)
[2021-08-18] MEDS: methylPREDNISolone SUCC 125 MG VIAL 60 MG IVP (20:33)
[2021-08-18] MEDS: Gabapentin 300 MG CAP 900 MG PO (21:16)
[2021-08-18] MEDS: MORPHine 2 MG/ML SYR 4 MG IVP (22:00)
[2021-08-19] VITALS (16 sets, daily range): BP systolic 109–146; BP diastolic 54–83; PULSE 70–92; RESP 2–33; TEMP 31–37.9; O2SAT 91–97
[2021-08-19] MEDS: MORPHine 2 MG/ML SYR 4 MG IVP (04:43)
[2021-08-19] MEDS: methylPREDNISolone SUCC 125 MG VIAL 60 MG IVP ×2 (04:43→11:40)
[2021-08-19] MEDS: Normal Saline Flush 10 ML SYR IVP ×2 (04:44→08:01)
[2021-08-19 06:04] LABS: Abs Immature Grans 0.22 10^3/uL (0.0-0.06); Absolute Basophil Count 0.03 10^3/uL (0.0-0.2); Absolute Lymphocyte Count 1.38 10^3/uL (1.2-3.4); Absolute Monocyte Count 0.32 10^3/uL (0.1-0.8); Basophils % 0.3; HCT 50.3 % (36.0-46.0); HGB 15.1 g/dL (11.2-15.7); Immature Grans % 1.9; Lymphocytes % 12.1; MCH 28.6 pg (27.0-33.0); MCV 95 fL (80-95); MPV 9.8 fL (8.0-11.0); Monocytes % 2.8; Neutrophils % 82.9; Platelet Count 230 10^3/uL (130-400); RBC 5.28 10^6/uL (3.93-5.22); RDW 14.3 % (11.7-14.6); RDW-SD 50.4 fL; WBC 11.44 10^3/uL (4.4-10.8)
[2021-08-19 06:20] LABS: Absolute Neutrophil Count 9.48 10^3/uL (1.2-6.7)
[2021-08-19 06:30] LABS: BUN 26 mg/dL (7-18); CREATININE 0.7 mg/dL (0.55-1.02); Calcium 10.1 mg/dL (8.5-10.1); Chloride 97 mmol/L (98-107); Glucose 301 mg/dL (74-106); Sodium 138 mmol/L (136-145)
--- NOTE | 2021-08-19 07:25 | NUR.NOTE ---
RN washes patient's feet and places yellow hospital socks on patient.Nursing Note:
[2021-08-19] MEDS: Insulin Aspart 300 UNITS/3 ML PEN SC ×3 (07:36→17:07)
[2021-08-19] MEDS: Insulin Aspart 300 UNITS/3 ML PEN 10 UNITS SC ×3 (07:37→17:07)
[2021-08-19] MEDS: buPROPion-CR 100 MG TABCR 200 MG PO (07:56)
[2021-08-19] MEDS: Atenolol 50 MG TAB PO (07:57)
[2021-08-19] MEDS: dilTIAZem CD 120 MG CAPCR PO (07:57)
[2021-08-19] MEDS: ARIPiprazole 5 MG TAB 10 MG PO (07:57)
[2021-08-19] MEDS: Furosemide 40 MG/4 ML VIAL IVP (07:57)
--- NOTE | 2021-08-19 08:04 | INITIAL_ITS ---
- If Service Date Differs Date of service: 08/19/21 Time of Service: 08:04 Care Management Initial Assess REASON FOR HOSPITALIZATION:: acute on chronic respiratory failure PAST MEDICAL HISTORY/PAST SURGICAL HISTORY:: All Active Problems . Pneumonia (Acute). Acute on chronic respiratory failure with hypoxia and hypercapnia (Acute). Contraceptive management (Acute). GERD (gastroesophageal reflux disease) (Chronic). Abnormal uterine bleeding (Acute). Mood disorder (Acute). Hypercalcemia (Acute). HTN (hypertension) (Chronic). Discharge planning issues (Acute). HELEN (obstructive sleep apnea) (Chronic). DVT prophylaxis (Acute). Acute exacerbation of CHF (congestive heart failure) (Acute). Tobacco abuse (Chronic). Diabetes mellitus (Chronic). COPD with acute exacerbation (Acute). Primary osteoarthritis of both knees (Chronic 05/01/15). Medical History . Chronic atrophic candidosis. Depression with anxiety. Diabetes mellitus type 2 in obese. Hyperlipidemia. Morbid obesity. HELEN (obstructive sleep apnea). Smoker. Surgical History . Bilat partial saplinectomy. Cholecystectomy (). LAPAROSCOPIC WITH INTRAOPERATIVE CHOLANGIOGRAM/[facility]. Ligation of fallopian tube. Open Carpal Tunnel release. Repair of umbilical hernia. Tonsillectomy and adenoidectomy PREVIOUS FUNCTIONAL STATUS/SOCIAL/FAMILY SUPPORTS:: Rosibel lives in a [facility] in [facility]. She has a roomate named Douglas who is not home much and she also has a significant other named Nahun. She has two adult children who reside locally. Her sister Therese provides the majority of her transporation and she also uses [employer]. 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 She has home O2 and uses a walker. She has also been receiving home health services for nursing, PT, OT and IT TECHNICAL SUPPORT SPECIALIST. Rosibel requires assistance with her ADL's at baseline. CURRENT FUNCTIONAL STATUS:: Rosibel was sitting up in a chair when CM met with her. She was pleasant and agreeeable to conversation. Rosibel was just discharged from [facility] last Friday. She shared that she did well for a couple of days, then started to have difficulty breathing. Her nurse, provider and family advised her to go to the ED but she was reluctant to do so. She worsened and on Friday, returned to the hospital. ADVANCE DIRECTIVES:: none and does not wish to complete Has patient been provided with info about the portal/API?: Yes Did the patient sign up for the portal?: Yes (previously) CODE STATUS:: DNI INSURANCE COVERAGE / FINANCIAL ISSUES:: Medicare. Medicaid CURRENT HOME/COMMUNITY SERVICES/EQUIPMENT:: home oxygen provided by [facility] [place]. home health services through [facility] - RN, PT, OT, IT TECHNICAL SUPPORT SPECIALIST. Rosibel owns and uses a rollater walker PRIMARY CARE PHYSICIAN:: Maria Del Carmen Nogueira POTENTIAL DISCHARGE NEEDS:: to be determined by disposition PATIENT/FAMILY EDUCATION NEEDS:: Review of discharge instructions, medications, activity. limitations, follow up plan, and discuss Ask Me Three TRANSPORTATION:: via private vehicle with sister vs RCT PLAN:: Rosibel dalal return home with a resumption of her home health services. She will follow up with Pulmonology, her PCP and her discharge plan of care and transport with family. CM will continue to support Rosibel and her discharge needs. Readmission - Within the Past 30 Days Yes or No: Y - Date of First Admission Date of 1st Admission: 08/10/21 - Date of this Admission Date of Admission: 08/18/21 This admission was: Through ED - Office Visit Since 1st Admission Have you seen your PCP in the office since discharge?: No Had an appointment Been Scheduled?: Yes Date of Scheduled Appointment: 08/27/21 - Speicalist Appointments Have you seen any other specialist since your 1st Admission?: No Specialist Seen: has an appointment with Pulmonology at the end of August - I. Interview patient and/or Family Difficulty reaching your doctor or getting an office appt?: No Have you had trouble purchasing/ or taking medication?: No Have you had trouble with getting meals at home?: Yes Describe your typical meals since you have been home: pizza, fast food Did you feel ready for discharge when you left the last time: No ( really wanted to go home) Were services received that you thought were set up on disch: Yes What services were received?: RN,PT,OT Did you call your physician beore you came to the ED?: Yes Did your physician tell you to come in?: Yes - If the patient had a VNA ordered Did the patient have a VNA order?: Yes Did you call the VNA before you came?: Yes (VNA on site and recommended she go to ED) Did the VNA tell you to come to the hospital?: Yes - Ask the Care Team Members: What do you think caused the patient to be readmitted: She did not follow her low sodium diet and was not performing daily weights - ED visits How many ED visits in the past 12 months: 3 - Assessment for Readmission Summary of readmission circumstances, based upon interviews: Rosibel was discharged just 4 days [employer]. She had been treated for COPD and respiratory failure and was improved upon discharged. She was still very weak and unable to cook for herself so ate pizza and fast food easily obtained by her partner Nahun. On this admission her primary diagnosis is CHF.
[2021-08-19] MEDS: Enoxaparin 40 MG/0.4 ML SYR SC ×2 (08:13→21:46)
[2021-08-19] MEDS: Nystatin 500000 UNITS/5 ML SUSP 5ML CUP PO ×3 (08:13→21:45)
[2021-08-19] MEDS: Pantoprazole 40 MG TABCR PO (08:14)
[2021-08-19] MEDS: SITagliptin 100 MG TAB PO (08:24)
[2021-08-19] MEDS: Methylphenidate 10 MG TAB 20 MG PO (08:24)
[2021-08-19] MEDS: guaiFENesin 600 MG TABCR PO ×2 (08:24→21:46)
--- NOTE | 2021-08-19 08:33 | NUR.NOTE ---
RN calls respiratory therapist to review settings on high flow machine. Respiratory therapist resets machine and patient is then started on high flow machine and oxymask is taken off.Nursing Note:
[2021-08-19] MEDS: Budesonide/Formoterol 160/4.5 6 GM 60 PUFF INH IH ×2 (09:13→21:47)
[2021-08-19] MEDS: Tiotropium Bromide-Respimat 10 PUFF INH 2 PUFF IH (09:14)
[2021-08-19] MEDS: Albuterol/Ipratropium 3 ML UPD VIAL UPD ×3 (09:15→21:46)
--- NOTE | 2021-08-19 11:52 | NUR.NOTE ---
Patient is set up with her lunch tray. Patient remains up in chair and doing well. Patient is awaiting transfer to Med/Surg.Nursing Note:
--- NOTE | 2021-08-19 12:44 | NUR.NOTE ---
Lehr Attendant meets with patient.Nursing Note:
--- NOTE | 2021-08-19 13:28 | W.PM.PROGNOT ---
Date of Service Date of service: 08/19/21 Time of Service: 13:28 Assessment and Plan Assessment and plan (1) Acute on chronic respiratory failure with hypoxia and hypercapnia: Status: Acute Assessment and plan: Improved. Less work of breathing noted. Likely related to pulmonary edema and COPD exacerbation in a smoker with HELEN and likely obesity hypoventilation syndrom. VBG with pCO2 of 76. pO2 39. pH 7.35. Now on BiPAP when asleep, high-flow nasal cannula when awake. PRN IV morphine for work of breathing. (2) Acute exacerbation of CHF (congestive heart failure): Status: Acute Assessment and plan: IV lasix: 20mg in ED. 40mg in ICU with another repeat 40mg. Echo on 08/13/21: Mild concentric left ventricular hypertrophy.? Estimated ejection fraction is 55%.? No segmental wall motion abnormalities are identified Normal right ventricular size and systolic function. RVSP of 40mmHg. Lasix 40mg IV daily. (3) COPD with acute exacerbation: Status: Acute Assessment and plan: Schedule duonebs. PRN albuterol. Symbicort Spiriva. IV methyprednisolone 125mg given in ED Cont 60 mg IV Q8 hours. (4) Tobacco abuse: Status: Chronic Assessment and plan: Nicotine patch. (5) Diabetes mellitus type 2 in obese: Assessment and plan: Glucose levels have increased; likely IV steroid effect. Will stop steroid at this time. Increase Lantus dosage. Increase SS insulin to resistant. Add 10 units insulin QAC. Monitor. (6) Discharge planning issues: Status: Acute Assessment and plan: DNI. Will need to discuss her code status when she is mentating more clearly. Subjective Subjective Patient reports: no new complaints, feels better, tolerating a regular diet, shortness of breath and afebrile; denies nausea or vomiting Exam Narrative Exam Narrative: Obese female lying in bed with BiPAP in place. Increased RR noted. Const General: ill appearing Orientation: awake Eyes General: appearance normal, both eyes and all related structures Sclera: sclerae normal Resp Effort & Inspection: normal respiratory effort and able to speak in complete sentences Auscultation: rhonchi Cardio Rate: regular rate Rhythm: regular rhythm Heart Sounds: S1 normal and S2 normal GI Inspection: obesity Palpation: soft and nontender Neuro General: no focal motor deficits and patient confused Extrem General: no calf tenderness and edema Laterality: bilateral (trace) Objective Last Vital Signs Temp 37.9 C H 08/19/21 13:10 Pulse 89 08/19/21 13:10 Resp 27 H 08/19/21 13:10 BP 135/74 08/19/21 13:10 Pulse Ox 91 L 08/19/21 13:10 Laboratory Results - last 24 hr 08/18/21 08/18/21 08/19/21 10:27 15:08 05:33 WBC RBC Hgb Hct MCV MCH MCHC RDW Plt Count MPV Immature Gran % Neutrophils % Lymphocytes % Monocytes % Eosinophils % Basophils % Nucleated RBC % Absolute Neutrophils Absolute Lymphocytes Absolute Monocytes Absolute Eosinophils Absolute Basophils Sodium 138 Potassium 4.0 Chloride 97 L Carbon Dioxide 39.0 H Anion Gap 2.0 L BUN 26 H Creatinine 0.7 Estimated GFR/1.73 m2 >= 60.00 Glucose 301 H Calcium 10.1 Troponin I < 50 Procalcitonin < 0.1 08/19/21 05:33 WBC 11.44 H RBC 5.28 H Hgb 15.1 D Hct 50.3 H MCV 95 MCH 28.6 MCHC 30.0 L D RDW 14.3 Plt Count 230 MPV 9.8 Immature Gran % 1.9 Neutrophils % 82.9 Lymphocytes % 12.1 Monocytes % 2.8 Eosinophils % 0.0 Basophils % 0.3 Nucleated RBC % 0.0 Absolute Neutrophils 9.48 H Absolute Lymphocytes 1.38 Absolute Monocytes 0.32 Absolute Eosinophils 0.00 Absolute Basophils 0.03 Sodium Potassium Chloride Carbon Dioxide Anion Gap BUN Creatinine Estimated GFR/1.73 m2 Glucose Calcium Troponin I Procalcitonin
[2021-08-19] MEDS: Polyethylene Glycol 3350 17 GM PACKET PO (15:46)
[2021-08-19] MEDS: Methylnaltrexone 12 MG/0.6 ML VIAL SC (15:46)
[2021-08-19] MEDS: Gabapentin 300 MG CAP 900 MG PO (21:45)
[2021-08-19] MEDS: ROSUVASTATIN 20 MG TAB 40 MG PO (21:45)
[2021-08-19] MEDS: Nystatin POWDER 60 GM JAR TP (21:47)
[2021-08-19] MEDS: Magnesium Oxide 400 MG TAB PO (21:51)
[2021-08-20] VITALS (11 sets, daily range): BP systolic 117–155; BP diastolic 75–92; PULSE 71–92; RESP 7–24; TEMP 31–37.2; O2SAT 92–97
[2021-08-20 06:09] LABS: HCT 48.3 % (36.0-46.0); MCH 28.7 pg (27.0-33.0); MCHC 31.1 % (32.0-36.0); MCV 92 fL (80-95); MPV 9.9 fL (8.0-11.0); Platelet Count 254 10^3/uL (130-400); RBC 5.23 10^6/uL (3.93-5.22); RDW-SD 47.6 fL; WBC 19.28 10^3/uL (4.4-10.8)
[2021-08-20 06:28] LABS: Anion Gap 3.4 mmol/L (3-11); BUN 35 mg/dL (7-18); CO2 36.6 mmol/L (21.0-32.0); CREATININE 0.8 mg/dL (0.55-1.02); Calcium 10.3 mg/dL (8.5-10.1); Chloride 96 mmol/L (98-107); Glucose 334 mg/dL (74-106); Potassium 4.3 mmol/L (3.5-5.1); Sodium 136 mmol/L (136-145)
[2021-08-20] MEDS: Albuterol/Ipratropium 3 ML UPD VIAL UPD ×3 (07:32→20:23)
[2021-08-20] MEDS: Tiotropium Bromide-Respimat 10 PUFF INH 2 PUFF IH (07:32)
[2021-08-20] MEDS: Budesonide/Formoterol 160/4.5 6 GM 60 PUFF INH IH ×2 (07:32→20:21)
[2021-08-20] MEDS: Nystatin 500000 UNITS/5 ML SUSP 5ML CUP PO ×3 (08:43→20:23)
[2021-08-20] MEDS: Nystatin POWDER 60 GM JAR TP ×2 (08:43→20:21)
[2021-08-20] MEDS: Insulin Aspart 300 UNITS/3 ML PEN 10 UNITS SC ×3 (08:44→16:49)
[2021-08-20] MEDS: Polyethylene Glycol 3350 17 GM PACKET PO (08:44)
[2021-08-20] MEDS: Enoxaparin 40 MG/0.4 ML SYR SC ×2 (08:44→20:21)
[2021-08-20] MEDS: Insulin Aspart 300 UNITS/3 ML PEN SC ×2 (08:45→11:52)
[2021-08-20] MEDS: ARIPiprazole 5 MG TAB 10 MG PO (08:46)
[2021-08-20] MEDS: buPROPion-CR 100 MG TABCR 200 MG PO (08:46)
[2021-08-20] MEDS: Furosemide 40 MG/4 ML VIAL IVP ×2 (08:46→20:22)
[2021-08-20] MEDS: Normal Saline Flush 10 ML SYR IVP ×2 (08:46→20:22)
[2021-08-20] MEDS: Empaglifozin 10 MG TAB PO (08:47)
[2021-08-20] MEDS: Pantoprazole 40 MG TABCR PO (08:47)
[2021-08-20] MEDS: guaiFENesin 600 MG TABCR PO ×2 (08:47→20:23)
[2021-08-20] MEDS: SITagliptin 100 MG TAB PO (08:47)
[2021-08-20] MEDS: dilTIAZem CD 120 MG CAPCR PO (08:47)
[2021-08-20] MEDS: Atenolol 50 MG TAB PO (08:47)
[2021-08-20] MEDS: Methylphenidate 10 MG TAB 20 MG PO (08:47)
[2021-08-20] MEDS: Docusate Sodium 100 MG/10 ML CUP PO ×2 (12:23→20:23)
[2021-08-20] MEDS: Bisacodyl 10 MG SUPP PR (12:24)
--- NOTE | 2021-08-20 15:46 | W.PM.PROGNOT ---
Date of Service Date of service: 08/20/21 Time of Service: 15:47 Assessment and Plan Assessment and plan (1) Acute on chronic respiratory failure with hypoxia and hypercapnia: Status: Acute Assessment and plan: Improved. Less work of breathing noted. Likely related to pulmonary edema and COPD exacerbation in a smoker with HELEN and likely obesity hypoventilation syndrom. VBG with pCO2 of 76. pO2 39. pH 7.35. Now on BiPAP when asleep, high-flow nasal cannula when awake. High flow nasal cannula has been weaned down from 40 L/min and FiO2 of 50% Down to 40 L/min and an FiO2 of 36%. PRN IV morphine for work of breathing. I have added Rocphin for acute bronchitis coverage. CXR on admission did not show air space consolidation but demonstrated pulmonary venous hypertension and bilateral pleurla effusions. Professional time spent interviewing and examining patient, discussion of goals of care with hospital team (care management, nursing and consulting professionals) was 30 minutes. (2) Acute exacerbation of CHF (congestive heart failure): Status: Acute Assessment and plan: IV lasix: 20mg in ED. 40mg in ICU with another repeat 40mg. Echo on 08/13/21: Mild concentric left ventricular hypertrophy.? Estimated ejection fraction is 55%.? No segmental wall motion abnormalities are identified Normal right ventricular size and systolic function. RVSP of 40mmHg. Lasix 40mg IV daily increased to bid. monitor urine output, daily wts and bmp (3) COPD with acute exacerbation: Status: Acute Assessment and plan: Schedule duonebs. PRN albuterol. Symbicort Spiriva. given her CHF I have changed her iv solumedrol to oral prednisone. (4) Tobacco abuse: Status: Chronic Assessment and plan: Nicotine patch. (5) Diabetes mellitus type 2 in obese: Assessment and plan: Glucose levels have increased; likely IV steroid effect. give NPH w/ her steroids. Increase Lantus dosage. Increase SS insulin to resistant. Add 10 units insulin QAC. Monitor. (6) Discharge planning issues: Status: Acute Assessment and plan: DNI. Will need to discuss her code status further. Subjective Subjective Interval history since last seen: Patient states she feels less short of breath today than on admission. Nurse reports patient has not had a bowel movement since admission. Patient bowel regimen was increased today including Dulcolax suppository as well as addition of Colace and senna. Patient had a good bowel movement this afternoon. Patient denies any abdominal pain or nausea or vomiting. Appetite is good. Cough is minimally productive of white to slightly yellow tinge sputum. She still gets dyspneic with any activity. No associated chest pain. Exam Narrative Exam Narrative: Morbidly obese female sitting up in her chair alert and oriented person place time circumstance. She is able to talk to me in short sentences but gets dyspneic with any prolonged conversation. Neck is obese difficult to discern any JVD she has normal carotid pulses. No cervical adenopathy Lungs diffuse bilateral expiratory wheezing and rhonchi Heart is regular but slightly tachycardic no appreciable murmur rub Abdomen obese soft nontender normal bowel sounds Lower extremities with 1+ pitting edema of her feet ankles and lower legs. Objective Last Vital Signs Temp 36.7 C 08/20/21 14:25 Pulse 78 08/20/21 14:25 Resp 14 08/20/21 14:25 BP 155/92 H 08/20/21 14:25 Pulse Ox 93 08/20/21 14:25 Laboratory Results - last 24 hr 08/20/21 08/20/21 05:50 05:50 WBC 19.28 H RBC 5.23 H Hgb 15.0 Hct 48.3 H MCV 92 MCH 28.7 MCHC 31.1 L D RDW 14.0 Plt Count 254 MPV 9.9 Sodium 136 Potassium 4.3 Chloride 96 L Carbon Dioxide 36.6 H Anion Gap 3.4 BUN 35 H Creatinine 0.8 Estimated GFR/1.73 m2 >= 60.00 Glucose 334 H Calcium 10.3 H
[2021-08-20] MEDS: predniSONE 20 MG TAB 60 MG PO (16:48)
[2021-08-20] MEDS: Gabapentin 300 MG CAP 900 MG PO (20:23)
[2021-08-20] MEDS: ROSUVASTATIN 20 MG TAB 40 MG PO (20:23)
[2021-08-20] MEDS: Magnesium Oxide 400 MG TAB PO (20:23)
[2021-08-21] VITALS (13 sets, daily range): BP systolic 114–145; BP diastolic 73–86; PULSE 65–84; RESP 2–26; TEMP 31–36.8; O2SAT 92–98
[2021-08-21] MEDS: oxyCODONE 10 MG TAB PO ×2 (05:24→21:10)
[2021-08-21 07:03] LABS: Abs Immature Grans 0.17 10^3/uL (0.0-0.06); Absolute Basophil Count 0.03 10^3/uL (0.0-0.2); Basophils % 0.2; HCT 49.3 % (36.0-46.0); HGB 15.4 g/dL (11.2-15.7); Immature Grans % 1.2; Lymphocytes % 14.3; MCH 28.8 pg (27.0-33.0); MCHC 31.2 % (32.0-36.0); MCV 92 fL (80-95); MPV 9.8 fL (8.0-11.0); Monocytes % 5.9; Neutrophils % 78.4; Platelet Count 255 10^3/uL (130-400); RBC 5.34 10^6/uL (3.93-5.22); RDW 14.2 % (11.7-14.6); RDW-SD 47.6 fL
[2021-08-21 07:07] LABS: Absolute Monocyte Count 0.87 10^3/uL (0.1-0.8); Absolute Neutrophil Count 11.52 10^3/uL (1.2-6.7)
[2021-08-21 07:18] LABS: PTT Activated 25.4 sec (21.0-27.5)
[2021-08-21 07:26] LABS: Anion Gap 5.6 mmol/L (3-11); BUN 34 mg/dL (7-18); C-Reactive Protein 1.07 mg/dL (0.0-0.3); CO2 35.4 mmol/L (21.0-32.0); Calcium 10.6 mg/dL (8.5-10.1); Chloride 95 mmol/L (98-107); Estimated GFR 58.22 (mL/min/1.73m2); Glucose 269 mg/dL (74-106); Potassium 4.5 mmol/L (3.5-5.1); Sodium 136 mmol/L (136-145)
[2021-08-21] MEDS: buPROPion-CR 100 MG TABCR 200 MG PO (07:36)
[2021-08-21] MEDS: SITagliptin 100 MG TAB PO (07:36)
[2021-08-21] MEDS: Enoxaparin 40 MG/0.4 ML SYR SC ×2 (07:36→21:08)
[2021-08-21] MEDS: Docusate Sodium 100 MG/10 ML CUP PO (07:36)
[2021-08-21] MEDS: dilTIAZem CD 120 MG CAPCR PO (07:37)
[2021-08-21] MEDS: guaiFENesin 600 MG TABCR PO ×2 (07:37→21:11)
[2021-08-21] MEDS: Empaglifozin 10 MG TAB PO (07:37)
[2021-08-21] MEDS: ARIPiprazole 5 MG TAB 10 MG PO (07:37)
[2021-08-21] MEDS: Pantoprazole 40 MG TABCR PO (07:37)
[2021-08-21] MEDS: Atenolol 50 MG TAB PO (07:37)
[2021-08-21] MEDS: Normal Saline Flush 10 ML SYR IVP ×4 (07:38→17:26)
[2021-08-21] MEDS: Nystatin POWDER 60 GM JAR TP ×2 (07:40→21:14)
[2021-08-21] MEDS: Insulin Aspart 300 UNITS/3 ML PEN 10 UNITS SC ×3 (07:41→17:25)
[2021-08-21] MEDS: Insulin Aspart 300 UNITS/3 ML PEN SC ×3 (07:42→17:25)
[2021-08-21] MEDS: Polyethylene Glycol 3350 17 GM PACKET PO (07:43)
[2021-08-21] MEDS: Tiotropium Bromide-Respimat 10 PUFF INH 2 PUFF IH (07:53)
[2021-08-21] MEDS: Budesonide/Formoterol 160/4.5 6 GM 60 PUFF INH IH ×2 (07:54→21:09)
[2021-08-21] MEDS: Albuterol/Ipratropium 3 ML UPD VIAL UPD ×4 (07:54→21:09)
[2021-08-21] MEDS: Methylphenidate 10 MG TAB 20 MG PO (07:56)
[2021-08-21] MEDS: predniSONE 20 MG TAB 40 MG PO (07:56)
[2021-08-21] MEDS: Nystatin 500000 UNITS/5 ML SUSP 5ML CUP PO ×3 (07:56→21:09)
[2021-08-21] MEDS: Furosemide 40 MG/4 ML VIAL IVP (08:00)
[2021-08-21] MEDS: DOXYCYCLINE 100 MG in Normal Saline 100 ML IVPB ×2 (10:27→21:12)
--- NOTE | 2021-08-21 12:57 | PDOC.CMPRO ---
- If Service Date Differs Date of service: 08/21/21 Time of Service: 12:57 Care Management Progress Note S/O:Rosibel was sitting up in a chair when CM met with her. She was very pleasant end engaged easily with CM. Rosibel shared that her breathing has improved greatly and that she is back to 2L of oxygen which is her baseline. She has also been diuresing well and she informed CM that she lost another pound in the past 24 hours. CM discussed heart failure with Rosibel and her knowledge base seems limited. CM provided her with a copy of the heart failure educational notebook and encouraged her to review it. She stated that she really wants to learn how to avoid similar episodes in the future. A: Rosibel is a 51 year old woman admitted to [facility] on 08/18/21 with Acute respiratory failure and CHF P:Rosibel will likely return home with a resumption of her home health services. She will follow up with Pulmonology, her PCP and discharge plan of care and transport with family. CM will continue to support Rosibel and her discharge needs.
[2021-08-21] MEDS: cefTRIAXone 1 GM/50 ML BAG IVPB (17:29)
--- NOTE | 2021-08-21 17:30 | W.PM.PROGNOT ---
Date of Service Date of service: 08/21/21 Time of Service: 17:31 Assessment and Plan Assessment and plan (1) Acute on chronic respiratory failure with hypoxia and hypercapnia: Status: Acute Assessment and plan: Improved. Less work of breathing noted. Likely related to pulmonary edema and COPD exacerbation in a smoker with HELEN and likely obesity hypoventilation syndrom. Now on BiPAP when asleep, High flow nasal cannula has been weaned down from 40 L/min and FiO2 of 50% Down to 2 1/2 LPM per simple NC PRN IV morphine for work of breathing. I have added Rocphin for acute bronchitis coverage. CXR on admission did not show air space consolidation but demonstrated pulmonary venous hypertension and bilateral pleurla effusions. I anticipate dc tomorrow, will send home on taper of prednisone along w/ 5 days of oral antibiotics for purulent bronchitis Professional time spent interviewing and examining patient, discussion of goals of care with hospital team (care management, nursing and consulting professionals) was 30 minutes. (2) Acute exacerbation of CHF (congestive heart failure): Status: Acute Assessment and plan: Echo on 08/13/21: Mild concentric left ventricular hypertrophy.? Estimated ejection fraction is 55%.? No segmental wall motion abnormalities are identified Normal right ventricular size and systolic function. RVSP of 40mmHg. Lasix 40mg IV daily increased to bid. monitor urine output, daily wts and bmp will switch her to oral lasix begining tomorrow. She needs to avoid salt containing foods and monitor her daily weights. (3) COPD with acute exacerbation: Status: Acute Assessment and plan: Schedule duonebs. PRN albuterol. Symbicort Spiriva. given her CHF I have changed her iv solumedrol to oral prednisone. (4) Tobacco abuse: Status: Chronic Assessment and plan: Nicotine patch. (5) Diabetes mellitus type 2 in obese: Assessment and plan: Glucose levels have increased; likely IV steroid effect. give NPH w/ her steroids. Increase Lantus dosage. Increase SS insulin to resistant. Add 10 units insulin QAC. Monitor. (6) Discharge planning issues: Status: Acute Assessment and plan: anticipate dc tomorrow Subjective Subjective Interval history since last seen: Oil[place] is feeling markedly better she is less dyspneic. She is down to 2-1/2 L/min per nasal cannula. Her baseline oxygen needs are 2 L/min. She is using her BiPAP at night. Cough is minimally productive of clear mucus. She is afebrile. She is looking forward to returning home which I think will be able to accomplish tomorrow morning. Exam Narrative Exam Narrative: Pleasant morbidly obese female sitting up in her chair talking with her nurse in no acute respiratory distress. She is able to converse in complete sentences without dyspnea. HEENT she has plethoric facial appearance Neck not requiring use of accessory muscles of respiration. Lungs some fine bibasilar rales no rhonchi no expiratory wheezing Heart is regular rate and rhythm Legs 1+ pitting edema lower legs Objective Last Vital Signs Temp 36.6 C 08/21/21 15:31 Pulse 77 08/21/21 16:22 Resp 18 08/21/21 16:22 BP 129/79 08/21/21 15:31 Pulse Ox 95 08/21/21 16:22 Laboratory Results - last 24 hr 08/21/21 08/21/21 08/21/21 06:38 06:38 06:38 WBC 14.70 H RBC 5.34 H Hgb 15.4 Hct 49.3 H MCV 92 MCH 28.8 MCHC 31.2 L RDW 14.2 Plt Count 255 MPV 9.8 Immature Gran % 1.2 Neutrophils % 78.4 Lymphocytes % 14.3 Monocytes % 5.9 Eosinophils % 0.0 Basophils % 0.2 Nucleated RBC % 0.0 Absolute Neutrophils 11.52 H Absolute Lymphocytes 2.10 Absolute Monocytes 0.87 H Absolute Eosinophils 0.00 Absolute Basophils 0.03 APTT 25.4 Sodium 136 Potassium 4.5 Chloride 95 L Carbon Dioxide 35.4 H Anion Gap 5.6 BUN 34 H Creatinine 1.0 Estimated GFR/1.73 m2 58.22 Glucose 269 H Calcium 10.6 H C-Reactive Protein 1.07 H
[2021-08-21 18:45] LABS: Legionella Ag Detection Urine Negative (Negative)
[2021-08-21] MEDS: Senna TAB 1 TAB PO (21:10)
[2021-08-21] MEDS: Gabapentin 300 MG CAP 900 MG PO (21:10)
[2021-08-21] MEDS: Magnesium Oxide 400 MG TAB PO (21:11)
[2021-08-21] MEDS: Acetaminophen 325 MG TAB PO (21:11)
[2021-08-21] MEDS: ROSUVASTATIN 20 MG TAB 40 MG PO (21:12)
[2021-08-22 03:39] VITALS: BP 123/77; PULSE 67; RESP 22; TEMP 35.2; O2SAT 96
[2021-08-22 07:32] VITALS: BP 126/83; PULSE 74; RESP 18; TEMP 36.6; O2SAT 94
[2021-08-22 07:43] VITALS: RESP 1
[2021-08-22] MEDS: Polyethylene Glycol 3350 17 GM PACKET PO (07:43)
[2021-08-22] MEDS: Nystatin 500000 UNITS/5 ML SUSP 5ML CUP PO ×2 (07:43→13:45)
[2021-08-22] MEDS: Albuterol/Ipratropium 3 ML UPD VIAL UPD ×2 (07:43→13:01)
[2021-08-22] MEDS: SITagliptin 100 MG TAB PO (07:44)
[2021-08-22] MEDS: Enoxaparin 40 MG/0.4 ML SYR SC (07:44)
[2021-08-22] MEDS: buPROPion-CR 100 MG TABCR 200 MG PO (07:44)
[2021-08-22] MEDS: ARIPiprazole 5 MG TAB 10 MG PO (07:44)
[2021-08-22] MEDS: Methylphenidate 10 MG TAB 20 MG PO (07:44)
[2021-08-22] MEDS: Atenolol 50 MG TAB PO (07:45)
[2021-08-22] MEDS: Docusate Sodium 100 MG CAP PO (07:45)
[2021-08-22] MEDS: Furosemide 40 MG TAB PO (07:45)
[2021-08-22] MEDS: dilTIAZem CD 120 MG CAPCR PO (07:45)
[2021-08-22] MEDS: Normal Saline Flush 10 ML SYR IVP ×2 (07:45→10:03)
[2021-08-22] MEDS: Pantoprazole 40 MG TABCR PO (07:45)
[2021-08-22] MEDS: predniSONE 20 MG TAB 40 MG PO (07:45)
[2021-08-22] MEDS: Empaglifozin 10 MG TAB PO (07:45)
[2021-08-22] MEDS: guaiFENesin 600 MG TABCR PO (07:45)
[2021-08-22] MEDS: Insulin Aspart 300 UNITS/3 ML PEN 10 UNITS SC ×2 (07:49→12:03)
[2021-08-22] MEDS: Budesonide/Formoterol 160/4.5 6 GM 60 PUFF INH IH (07:57)
[2021-08-22] MEDS: Tiotropium Bromide-Respimat 10 PUFF INH 2 PUFF IH (07:57)
[2021-08-22] MEDS: Nystatin POWDER 60 GM JAR TP (09:07)
[2021-08-22] MEDS: DOXYCYCLINE 100 MG in Normal Saline 100 ML IVPB (10:03)
[2021-08-22] MEDS: Doxycycline Hyclate 100 MG CAP PO (11:09)
[2021-08-22] MEDS: Cefpodoxime 200 MG TAB 400 MG PO (11:09)
[2021-08-22 11:48] VITALS: BP 127/83; PULSE 75; RESP 19; TEMP 36.9; O2SAT 93
[2021-08-22] MEDS: Insulin Aspart 300 UNITS/3 ML PEN SC (12:03)
--- NOTE | 2021-08-22 12:28 | PDOC.CMDIS ---
- If Service Date Differs Date of service: 08/22/21 Time of Service: 12:28 LACE Index Scoring Tool - Questions: Length of Stay (in days): 4 - 6 Acuity (Admit via E.D.?): Yes Comorbidities: Diabetes w/o Complication, Congestive Heart Failure, Chronic Pulmonary Disease E.D. Visits: 3 - Answers: Total Score: 15 Risk of Readmission: High Risk Care Management Discharge Reason for Hospitalization: acute on chronic respiratory failure Discharge Plan: Rosibel will return home with a resumption of her home health services for nursing and PT. She will follow up with Pulmonology, her PCP and her discharge plan of care and transport with family. Patient/Family Education Needs: Review of discharge instructions, medications, activity, limitations, follow up plan, and discuss Ask Me Three. Was provided with Educational book on Heart Failure by CM and encouraged to follow recommended practices such as daily weights and sodium restricted diet. Services Needed at Discharge: Home Health Care Services
[2021-08-22 13:01] VITALS: PULSE 75; RESP 18; RESP 2; RESP 8; O2SAT 93
--- NOTE | 2021-08-22 14:23 | DSE_ITS ---
Date of service: 08/22/21 Time of Service: 14:23 DS: Diagnosis Discharge Diagnosis (1) Acute on chronic respiratory failure with hypoxia and hypercapnia: Status: Acute (2) Acute exacerbation of CHF (congestive heart failure): Status: Acute (3) COPD with acute exacerbation: Status: Acute (4) Tobacco abuse: Status: Chronic (5) Diabetes mellitus type 2 in obese: (6) Discharge planning issues: Status: Acute Discharge Plan Disposition Patient Disposition: HOME W/HOME HEALTH SERVICE Condition: Critical Discharge Details Reason For Visit: Acute Respiratory Failure, COPD Admit Date/Time: 08/18/21 11:47 Admit Provider: Rajendra Gatica Attending Provider: Rajendra Gatica Primary Care Provider: Maria Del Carmen Nogueira Hospital Course Hospital Course: This 51-year-old female smoker with a past medical history of COPD, HELEN prescribed with CPAP but not presently using, DM 2 on insulin, obesity, depression and anxiety disorder, chronic tobacco use disorder recently hos pitalized at [facility] from 08/10/2021 through 08/06/2021 for COPD exacerbation and was discharged on Spiriva and Levaquin having completed 5-day course of Levaquin for acute purulent bronchitis now presents with worsening dyspnea over the last few days not associate with any chest pain nausea vomiting abdominal pain fever or chills. On evaluation in the emergency department she was afebrile at 36.5 pulse 97 respiratory rate 39 blood pressure 199/116 and pulse oximetry of 82%.VBG demonstrated pCO2 of 76 and pO2 of 39 and her SPO2 was 82% but dropped to as low as 72%.She was placed on BIPAP. Admission labs demonstrated WBC of 16,700. Troponin levels were normal x 2 sets. Procalcitonin was normal <0.1. ProBNP was elevated at 741. CXR demonstrated pulmonary venous hypertension pattern w/ mild blunting of costophrenic angles suggestive of small bilateral pleural effusion but she did not have any pulmonary parenchymal edema or infiltrates. She was treated in the ER w/ BIPAP and and multiple DuoNeb bronchodilators and morphine and given lasix 20 mg ivp. Recent echo had shown mild concentric LVH w/ LVEF 55%, no RWMA and normal RV size and systolic function w/ mild pulm HTN w/ RVSP of 40 mm. She was admitted to the ICU and continued on NIPPV and started on solumedrol, continued on Spiriva, and Symbicort along w/ scheduled DuoNeb treatment. Her DM was treated w/ sliding scale Novolog. Her acute on chronic respiratory failure of combined hypercapnea and hypoxemia was felt to be multiple factors including her non-compliance w/ her CPAP for her HELEN, her smoking and some CHF along w/ hypoventilation syndrome from her obesity. She was not felt to have an acute pulmonary infection. She was treated w/ daily iv lasix 40 mg daily which was titrated up to 40 mg bid. She was moved out of the ICU the next morning on 08/19. Her solumedrol was switched to oral prednisone and her lasix was changed to oral torsemide. Despite not having any infiltrates on her CXR she was coughing purulent looking sputum and was put on Rocephin while hospitalized from 08/20 to 08/22 but then she was discharged on 5 days of cefpodoxime 400 mg bid. She will continue prednisone 40 mg daily for 5 days. She will be dc on torsemide 20 mg daily and Jardiance 15 mg daily was added for CHF control as well as for her diabetes. Home Meds and New Rx's Prescriptions: New cefpodoxime 200 mg Tablet 400 mg PO BID 5 Days Qty: 20 0RF Jardiance 10 mg Tablet 10 mg PO QAM Qty: 30 0RF prednisone 20 mg Tablet 40 mg PO DAILY 5 Days Qty: 10 0RF magnesium oxide 400 mg (241.3 mg magnesium) Tablet 400 mg PO HS Qty: 30 0RF torsemide 20 mg tablet 20 mg PO DAILY Qty: 30 0RF Continued rosuvastatin 40 mg tablet 40 mg PO HS desvenlafaxine succinate [Pristiq] 100 MG tablet extended release 24 hr 100 mg PO DAILY albuterol sulfate 8.5 GM HFA aerosol inhaler 1 - 2 puff Inhalation Q4H PRN gabapentin 300 MG capsule 900 mg PO HS atenolol 50 MG tablet 50 mg PO DAILY aripiprazole [Abilify] 10 MG tablet 10 mg PO DAILY nystatin 1 EACH powder 1 ea PO TID PRN fenofibrate 160 MG tablet 160 mg PO DAILY pantoprazole [Protonix] [address] for susp in packet 40 mg PO DAILY lisinopril 20 MG tablet 40 mg PO DAILY oxycodone-acetaminophen 10-325 mg Tablet 1 tab PO QID PRN PRN (Reason: Pain) naloxone [Narcan] 4 mg/actuation [place],Non-Aerosol 4 mg Intranasal PRN PRN (Reason: excessive sedation) methylphenidate HCl [Ritalin] 20 mg Tablet 20 mg PO BID insulin aspart U-100 [Novolog Flexpen U-100 Insulin] 100 unit/mL (3 mL) insulin pen 0 sliding scale dose SUBCUT AC Rx Instructions: MAXIMUM OF 50 UNITS PER 24 HOURS bupropion HCl 200 mg tablet sustained-release 12 hr 200 mg PO QAM Label Comments: TAKE 1 TABLET BY MOUTH ONCE DAILY IN THE MORNING Januvia 100 mg tablet 100 mg PO DAILY diltiazem HCl 120 mg capsule,extended release 24 hr 120 mg PO DAILY Levemir FlexTouch U-100 Insuln 100 unit/mL (3 mL) insulin pen 44 unit SUBCUT DAILY Advair HFA 230-21 mcg/actuation HFA aerosol inhaler 1 puff INHALATION BID guaifenesin [Mucus Relief ER] 600 mg Tablet Extended Release 12hr 600 mg PO BID Qty: 0 0RF Spiriva Respimat 2.5 mcg/actuation Mist 2 puff inhalation DAILY Qty: 4 0RF Discontinued furosemide 20 mg tablet 20 mg PO DAILY PRN (Reason: Edema) Discharge Instructions Instructions: Heart Failure (DC), Chronic Bronchitis (DC), Low-Sodium Diet (DC), Chronic Lung Disease and Infection Prevention (DC), Energy Conservation Techniques (DC), Dyspnea Scale and Exercise (DC) Additional Instructions: continue to use your incentive spirometer and acapella device for the next week. complete your course of antibiotics (cefpodoxime 400 mg twice a day x 5 days) and your course of prednisone 40 mg daily x 5 days. follow a low salt diet to prevent water retention. Avoid smoking. Be sure to get 8 hours of sleep a night. Follow up w/ your primary care provider Maria Del Carmen Nogueira and follow up w/ pulmonary services for further recommendations on managing your COPD. Use your CPAP whenever you are sleeping. Consider pulmonary rehab. The post acute care nurse can discuss this with you after she evaluates you. Stand Alone Forms: Nursing Discharge Form Referrals: Candice Lamar MD [ [facility] STAFF PHYSICIAN] - (A nurse will call you with an appointment ) Maria Del Carmen Nogueira PA [Primary Care Provider] - 08/27/21 1:30 pm Activity:: Activity as Tolerated Equipment/Supplies:: No Equipment Needed Diet:: Low Sodium Discharge Orders Discharge Orders: Discharge Order (Routine); Ordered 08/22/21 Ordered By: Sebastian Gonzalez Other Ambulatory Orders: Basic Metabolic Panel (Routine) Timeframe: 1 Week Facility: [facility] - Location: Laboratory Outpatient - [facility] Ordered By: Sebastian Gonzalez Discharge Data Discharge Date/Time-TO BE ENTERED AT DEPARTURE: 08/22/21 15:06 DS: Summary Summary Time spent discussing smoking cessation with patient: 3 to 10 minutes Time Spent with Patient providing and/or coordinating discharge services: Greater than 30 minutes Specific discharge activities: Interview/exam of patient; review of discharge instructions, completion of prescriptions/discharge instructions; discussion w/ nursing and CM; documentation of hospital visit Status at Discharge Functional status at discharge: uses cane/walker Overall status at discharge: patient is progressing back to baseline Mental Status: mental status grossly normal Speech and Movement: speech and movement normal Mood: congruent mood Affect: normal affect Exam Narrative Exam Narrative: Rosibel is sitting up in her chair having finished her breakfast. She is dressed and eager to return home. She is now back on her baseline oxygen of 2 LPM per NC. and her oxygen saturation is 93% Chest: barrel chested and kyphotic back Lungs; clear to ausculatation. no wheezing or rhonchi and no rales Heart: RRR, no murmur or rub Legs: trace to 1+ pedal edma; no calf or tibial edema Psych Mental Status: mental status grossly normal Speech and Movement: speech and movement normal Mood: congruent mood Affect: normal affect DS: Data Vitals/I&O Vitals and I&O: Vital Signs Temperature 36.9 C 08/22/21 11:48 Temperature Source Tympanic 08/22/21 11:48 Pulse 75 08/22/21 13:01 Pulse Rhythm Regular 08/22/21 07:30 Pulse 79 08/19/21 04:00 Respiratory Rate 18 08/22/21 13:01 Respiratory Effort Non-Labored 08/22/21 07:30 Respiratory Depth Normal 08/22/21 07:30 Respiratory Pattern Normal 08/22/21 07:30 Blood Pressure 127/83 08/22/21 11:48 Blood Pressure Mean 94 08/19/21 13:10 Blood Pressure Position Sitting 08/19/21 13:10 Pulse Oximetry 93 08/22/21 13:01 Oxygen Delivery Method Nasal Cannula 08/22/21 13:01 Oxygen Flow Rate 2 08/22/21 13:01 Fraction of Inspired Oxygen (FIO2) 35 08/21/21 11:51 Pain Level 0 08/22/21 11:48 Comment 08/19/21 20:01 Intake & Output 08/21/21 08/22/21 08/22/21 23:59 11:59 23:59 Intake Total 740 / 1580 120 / 860 740 / 860 Output Total 1700 / 4400 1575 / 2125 550 / 2125 Balance -960 / -2820 -1455 / -1265 190 / -1265 Weight 110.6 kg Intake: IV 260 / 260 Oral 480 / 1320 120 / 860 740 / 860 Output: Urine 1700 / 4400 1575 / 2125 550 / 2125 Other: Urine Color Dark Maritza Yellow Yellow Urine Appearance Clear Clear Clear Urine Odor Normal Comment small blood clots in urine Voiding Methods Indwelling Catheter Data Completed and Pending Labs on day of discharge: Labs from last 24 hours 08/21/21 02:02 Urine Legionella Ag Negative Preliminary micro results at discharge 08/20/21 16:15 Sputum Culture - Preliminary Sputum Normal Amirah PFSH All Active Problems (Updated 08/22/21 @ 15:42 by Johnathon Toledo NP) Medication monitoring encounter (Acute) Pneumonia (Acute) Acute on chronic respiratory failure with hypoxia and hypercapnia (Acute) Contraceptive management (Acute) GERD (gastroesophageal reflux disease) (Chronic) Abnormal uterine bleeding (Acute) Mood disorder (Acute) Hypercalcemia (Acute) HTN (hypertension) (Chronic) Discharge planning issues (Acute) HELEN (obstructive sleep apnea) (Chronic) DVT prophylaxis (Acute) Acute exacerbation of CHF (congestive heart failure) (Acute) Tobacco abuse (Chronic) Diabetes mellitus (Chronic) COPD with acute exacerbation (Acute) Primary osteoarthritis of both knees (Chronic 05/01/15) Medical History Chronic atrophic candidosis Depression with anxiety Diabetes mellitus type 2 in obese Hyperlipidemia Morbid obesity HELEN (obstructive sleep apnea) Smoker Surgical History Bilat partial saplinectomy Cholecystectomy (10/20/16) LAPAROSCOPIC WITH INTRAOPERATIVE CHOLANGIOGRAM[facility] Ligation of fallopian tube Open Carpal Tunnel release Repair of umbilical hernia Tonsillectomy and adenoidectomy Family History Other COPD (chronic obstructive pulmonary disease) Cancer Social History Smoking/Tobacco Use Status: Former Tobacco Use Quit status: considering quitting Second Hand Exposure: Yes Smoking risk assessment performed?: Yes Alcohol Intake: never Drug use: Never Substance use type: does not use, opiates and painkillers Current gender identity: female Do you feel safe at home: Yes Do you feel safe in your relationship?: Yes Additional Social history: Lives with her male partner, who also smokes. Disabled. History History 5 Para 2 Hx # Term Pregnancies Multiple births Hx # Pregnancies Ectopic pregnancies AB induced Hx Number of Living Children AB spontaneous
--- NOTE | 2021-08-22 14:41 | PDOC.HHF2F ---
Home Health Certification Home Health Certification: 1. Encounter Date and Reason I certify that Rosibel Dinh was seen by Sebastian Gonzalez on 08/22/21 and that I had a [id number] encounter with this patient that meets the physician face to face encounter requirements. 2. Clinical Findings Supporting Skilled Need and Homebound Status I certify that home health services are medically necessary, include either intermittent fpc and/or physical/speech therapy, and that this patient is homebound in that absences from the home require considerable and taxing effort and are infrequent or of short duration, or are attributable to the need to receive medical care. [X] (a) Attached documentation from encounter provides clinical findings supporting skilled need and homebound status (including what assistance patient requires to leave the home). The encounter with the patient was in whole, or in part, for the following medical condition, which is the primary reason for home health care: Acute Respiratory Failure, COPD Penitentiary: Resumption of home health services including home nurse to monitor patient's chronic medical conditions and medication changes and to coordinate follow-up labs. Physical Therapy: Resumption of home physical therapy services to work on patient's deconditioning and generalized weakness secondary to her chronic illnesses including her COPD Speech Therapy: Homebound: Patient's recent hospitalization has left her deconditioned and weak and and at high risk for further deterioration making treatment outside her home higher risk of choice for deterioration 3. Certification and Authentication I certify that I composed the above information based on my clinical judgement relating to this patient's medical condition and, if applicable, clinical findings communicated to me by the NPP or inpatient physician who performed the Home Health Referral. All further orders will be obtained through __Maria Del Carmen Nogueira (Community Based Physician - PCP)
[2021-08-23 00:23] LABS: Streptococcus Pneumoniae Ag, U Negative (Negative)
== END 2021-08-22 15:06 | disposition home health service (06) | DRG 291 ==
LOC: ER 12:27 → ICU 13:22 → MS 08-19 13:27
PROVIDERS: Internal Medicine; Admitting Provider Family Medicine; Emergency Provider Nurse Practitioner Family; PCP Physician Assistant Medical; Visit Provider Family Medicine
DX: I11.0 Hypertensive heart disease with heart failure (principal); J96.21 Acute and chronic respiratory failure with hypoxia; J96.22 Acute and chronic respiratory failure with hypercapnia; J44.1 Chronic obstructive pulmonary disease with (acute) exacerbation; Z68.42 Body mass index [BMI] 45.0-49.9, adult; J44.0 Chronic obstructive pulmonary disease with (acute) lower respiratory infection; K21.9 Gastro-esophageal reflux disease without esophagitis; G47.33 Obstructive sleep apnea (adult) (pediatric); F17.210 Nicotine dependence, cigarettes, uncomplicated; E11.9 Type 2 diabetes mellitus without complications; Z79.4 Long term (current) use of insulin; I50.9 Heart failure, unspecified; E66.01 Morbid (severe) obesity due to excess calories; E78.5 Hyperlipidemia, unspecified; F41.8 Other specified anxiety disorders; J20.9 Acute bronchitis, unspecified; I27.20 Pulmonary hypertension, unspecified
CPT/HCPCS: 36415; 51702; 80048; 80053; 82805; 84145; 85027; 87449; 87635; 93005; 94640; 96374; 96375; 99291; J1650; 71045; 83735; 83880; 84484; 85025; 85730; 86140; 87070; 87205; 87899; 93010; 94660; 94667; 94760; 99223; 99232; 99233; 99239; J0696; J1940; J1941; J2270; J2930; J3490; J7512; J7620

== ENCOUNTER 2021-08-25 15:39 | Outpatient (REF) | payer MEDICARE, MEDICAID, SELFPAY ==
[2021-08-25 18:00] LABS: Bilirubin Negative (Negative); Blood Trace-intact (Negative); Clarity Clear (Clear); Glucose >=1000 mg/dL (Negative); Ketones Negative (Negative); Leukocyte Esterase Negative (Negative); Nitrite Negative (Negative); Urobilinogen 0.2 EU/dL (Up TO 0.2)
[2021-08-25 18:10] LABS: Bacteria Negative HPF (Negative); C & S Indicated? Yes; Casts Negative LPF (Negative); Crystals Negative HPF (Negative); Epithelial Cells Negative HPF (Negative); Mucus Negative (Negative); Other Cells Negative (Negative)
== END 2021-08-25 15:40 | disposition home or self-care (01) ==
LOC: NCHCN 15:39
PROVIDERS: PCP Physician Assistant Medical; Visit Provider Physician Assistant Medical
DX: R31.9 Hematuria, unspecified (principal)
CPT/HCPCS: 81003; 81015; 87086

== ENCOUNTER 2021-08-27 15:43 | Outpatient (REF) | payer MEDICARE, MEDICAID, SELFPAY ==
--- OUTSIDE RECORDS SUMMARY | 2021-08-27 15:46 | XMS_ITS | Encounter Summary ---
:1970 Author Organization [facility] [place] [address] Care Team Providers Name Role Phone Maria Del Carmen Nogueira Primary Care Provider Encounter Details Date Type Department Care Team Description 11/21/2018 Telephone Hospitalist at [facility] Lance Lea MD [facility] [place] [address] GENERAL INTERNAL [phone] [place] [id number] (Wo rk) Social History Tobacco Use Types [...] for doxycyline from her last discharge from [facility] on 11/19/2018. Yana called Stephen in [place] and confirmed it was never received. According [...] on filedocumented in this encounter Care Teams Advanced Quality Engineer Relationship Specialty Start Date End Date Maria Del Carmen Nogueira PA PCP - General 01/27/14 10/05/19 [address] [place] [address] documented as of this encounter
--- OUTSIDE RECORDS SUMMARY | 2021-08-27 15:46 | XMS_ITS | Encounter Summary ---
:1970 Author Organization [facility] [place] [address] Care Team Providers Name Role Phone Maria Del Carmen Nogueira Primary Care Provider Reason for Visit Auth/Cert Specialty Diagnoses / Procedures Referred By Contact Refer red To Contact Diagnoses Acute renal failure Acute renal injury/ hypotension Referral ID Status Reason Start Date Expiration Date Visits Requ ested Visits Authorized [id number] 1 1 Encounter Details Date Type Department Care Team Description 11/16/2018 - Hospital Encounter 1 [facility] Kend[address], Mylene Benton MD [facility] [place] [address] Acute kidney injury; 11/19/2018 [facility] Olvin Doran MD [address] [place] [address] [place] [address] Septic [facility] [place] [place] [address] Morbid obesity; [facility] HELEN (obst ructive sleep apnea) [place] [id number] Social History Tobacco Use Types Packs/Day Years [...] not included. Discharge Summary Patient Name: Rosibel Bodwen Patient Age: 48 y.o. Language: Uruguayan Race: White Ethnicity: Not nor Admit date: [...] prevent polypharmacy. 3. 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 Creatinine on [...] please contact your inpatient physician through the [facility] Surveillance Technician . Issues after hours and on weekends [...] w/o consolidation. We later received notification from [facility] that 3/3 blood cultures grew E.coli. Blood [...] MD Your Primary Care Provider: VERNA Irving [phone] For questions regarding this document or issues relating to this hospitalization on the Medical Service, please contact your inpatient physician through the [facility] Surveillance Technician . Issues after hours and on weekends will be handled by the Hospitalist staff on-call. General Instructions None Future Appointments and Orders Future Orders Complete By Expires Referral to Home Health - at DISCHARGE [GUX9683 CPT(R)] As directed Process Instructions: Scheduling Instructions: Comments: DOCUMENTATION FOR VNA SERVICES (INCLUDING THOSE PATIENTS WITH MEDICARE COVERAGE REQUIRING HOME VNA SERVICES AND/OR HOSPICE SERVICES) PATIENT'S LOCATION: [address] [facility] [address] [facility] [id number] [phone] (home) Cell: Telephone Information: Search Manager's Name: self In discussion with the attending physician, it is certified that this patient is under their care and that they, or a Nurse Practitioner,Clinical Nurse specialist or Physician Senior Mainframe Developer who is working directly with them, had [...] Please contact the wound care team at [phone] with skin and wound care concerns or questions. ?? Please assess for additional home care services (PT/OT/HEEL REDUCER/BRAKE LINING MAKER) with goal of maximizing patient's functional abilities HOME HEALTH CARE AGENCY: [facility] PHONE: [phone] FAX: [phone] Start of care: 24-48 hours post-discharge FOR [...] Irving [address] / [place] [address] All A agencies which cover the area of patient's residence have been reviewed, either verbally or in writing, and patient/family have chosen the home health care agency noted Questions: Agency name and contact information: [facility] Patient location post discharge: home What services are requested: Registered Nurse Start date: Responsible MD post discharge contact info: PCP VERNA Nogueira Discharge References/Attachments None Hoda Casas MD Kadie Torres - 11/19/2018 8:44 AM EDT Images from the original note were not included. Discharge Summary Patient Name: Rosibel Bowden Patient Age: 48 y.o. Language: Uruguayan Race: White Ethnicity: Not nor Admit date: [...] please contact your inpatient physician through the [facility] Surveillance Technician . Issues after hours and on weekends [...] disorder on ariprazole and COPDwho presented to [facility] with left flank pain, fever and decreased [...] back pain increased and she presented to [facility] ER. ?? On arrival, she was found [...] panniculitis - improving - Received notification from [facility] that 3/3 blood cultures grew E.coli. Blood [...] Latest Ref Range: Clear Cloudy (A) Spec [place] UA Latest Ref Range: 1.002 - 1.030 [...] Culture Reflexed Unknown Yes ? Results for ORSIBEL BOWDEN ( ) as of 11/17/2018 12:13 [...] this report, please contact the number below. Electronically signed by: Ray Mejia [facility] ([phone]), at 11/16/2018 11:12 AM Certified Wound Care Nurse Note ?? Situation: [...] Discussed plan with: /RADHA/PA: Dr. Tee RN: Deo Arnold ?? Please contact TANIA MCFARLAND RN on pager [phone] or the wound care team at [phone] or pager [phone] skin and wound care concerns or questions. [...] is receiving assistance for meal choices from physical therapy aide. 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 Patient has [...] consulted in the interim. CORIE XiaoR Pager# [phone] ??2:55 PM Pending Studies and Lab Data: [...] MD Your Primary Care Provider: VERNA Irving [phone] For questions regarding this document or issues relating to this hospitalization on the Medical Service, please contact your inpatient physician through the [facility] Surveillance Technician . Issues after hours and on weekends [...] MD Your Primary Care Provider: VERNA Irving [phone] For questions regarding this document or issues relating to this hospitalization on the Medical Service, please contact your inpatient physician through the [facility] Surveillance Technician . Issues after hours and on weekends [...] spent >30 minutes (Day of Discharge Code 69811) involved in the final examination of the [...] is receiving assistance for meal choices from physical therapy aide. 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 Patient has [...] consulted in the interim. CORIE XiaoR Pager# [phone] Hoda Casas MD - 11/18/2018 9:05 AM [...] HISTORY/OVERNIGHT EVENTS: - transferred to [facility] - feeling better today - sitting up in the chair - blood culture from [facility] grew E coli 3 bottles - denies [...] 13.2 oz) GENERAL: awake, alert, NAD HEENT: [place] conjunctiva, anicteric sclerae, oropharynx clear HEART: regular [...] function improves Primary Care Provider: VERNA Irving [phone] Inpatient Certification Attestation: IPI Certification I certify that I am a D-H credentialed attending provider with admitting privileges and that the patient meets or has met medical necessity to require an inpatient IPI level of care meeting a minimum of two midnights or is on the [facility] inpatient only procedure list (status C) due to: acute kidney injury necessitating close monitoring of fluid balance such as intravenous fluids and/or titration of medication to achieve optimal effect and minimize the chance of immediate or severe side effects; sepsis on IV antibiotics Hoda Casas MD Team Pager(MD Coverage 09/09): #[phone] 11/18/2018 Cammie Gallego RN - 11/17/2018 7:22 PM EDT 1921 patient transported, in stable condition, via bed, to new room on Med-Surg--accompanied by transporters. Patient chart, medications, medical equipment, et personal belongings sent with the patient. Patient to notify family of transfer Hoda Casas MD - 11/17/2018 10:49 AM EDT [facility] Medicine Attending Inpatient Daily Progress Note [...] 13.2 oz) GENERAL: awake, alert, NAD HEENT: [place] conjunctiva, anicteric sclerae, oropharynx clear NECK: Supple, [...] function improves Primary Care Provider: VERNA Irving [phone] Inpatient Certification Attestation: IPI Certification I certify that I am a D-H credentialed attending provider with admitting privileges and that the patient meets or has met medical necessity to require an inpatient IPI level of care meeting a minimum of two midnights or is on the [facility] inpatient only procedure list (status C) due to: acute kidney injury necessitating close monitoring of fluid balance such as intravenous fluids and/or titration of medication to achieve optimal effect and minimize the chance of immediate or severe side effects; sepsis on IV antibiotics Hoda Casas MD Team Pager(MD Coverage 09/09): #[phone] 11/18/2018 andace Dhillon RN - 11/17/2018 10:43 AM EDT Office of Care Management Progress Note Rosibel Bowden has been provided a list of Home Health Agencies/DME vendors which serve their preferred geographic area. A letter describing our affiliations was reviewed with them and they were educated about their right to choose where referrals are placed. Patient requests referral to: [facility]. PHONE: [phone] FAX: [phone] left at [facility] (ph: [phone]) for PCP VERNA Nogueira transition care RN regarding VNA referral post-discharge. Expected date of discharge: 2-3 days v TBD Transportation: Private vehicle Oxygen vendor: [facility] Referral routed to the Inspector Fabric for matching with agency/vendor and to provide any required information. Alisha Crain RNCM P. 4793 Cammie Peter RN - 11/17/2018 2:50 AM [...] pain ID: 48 y.o. Female presents to [facility] with Urosepsis History of Present Illness: [facility] Rosibel Bowden is a 48 yo female [...] file Gets together: Not on file Attends hinduism service: Not on file Active member of [...] m?? Lactate, whole blood, send to lab ([facility]) Result Value Ref Range Lactate WB 1.7 [...] mcL Appearance UA Cloudy (A) Clear Spec [place] UA 1.017 1.002 - 1.030 Color UA [...] this report, please contact the number below. Electronically signed by: Ray Mejia [facility] ([phone]), at 11/16/2018 11:12 AM Other Studies: EKG - Echocardiogram - Vascular [...] file Gets together: Not on file Attends hinduism service: Not on file Active member of [...] sounds, no apparent tenderness, guarding, or rebound Rbiggs catheter in place draining concentrated, turbid urine [...] hours. ABG: No results for input(s): PHART, [id number], PO2ART, TUQ6QBY in the last 168 hours. Coags: Recent [...] Not in acute pain, will reassess in verification specialist - AAO X 4 # Pulmonary: - [...] 11/16/2018 Internal Medicine, PGY 3 Team Pager: [phone] Associated attestation - Olvin Doran MD - [...] disorder on ariprazole and COPDwho presented to [facility] with left flank pain, fever and decreased [...] nausea or diarrhea. Received a call from [facility], 3/3 blood cultures grew E.coli. Blood cultures here at [facility] still negative. ROS: General: Reports fevers, chills [...] Latest Ref Range: Clear Cloudy (A) Spec [place] UA Latest Ref Range: 1.002 - 1.030 [...] panniculitis - improving - Received notification from [facility] that 3/3 blood cultures grew E.coli. Blood [...] DVT PPX: Heparin Team Pager(MD Coverage 09/09): #[phone] PCP: VERNA Irving [phone] Kadie Torres 11/18/2018 Plan of Care - [...] Torres Alba - 11/17/2018 8:08 AM EDT [facility] Medicine Daily Progress Note Admit Date: [...] disorder on ariprazole and COPDwho presented to [facility] with left flank pain, fever and decreased [...] back pain increased and she presented to [facility] ER. On arrival, she was found to [...] Latest Ref Range: Clear Cloudy (A) Spec [place] UA Latest Ref Range: 1.002 - 1.030 [...] this is difficult for her to see. 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 Any patient receiving care at [facility] must abide by [place] law. The hierarchy for surrogate decision making [...] (i) The agent with financial power of district attorney or a conservator appointed in accordance [...] Social & Family Supports/Community Resources: family/friends/uses [facility] for oxygen needs Behavioral Health History: chart review mentions mood disorder Substance Use/Abuse: current everyday smoker (1 PPD) Occasional alcohol use/no abuse No mention of illicit drug use/abuse Other Pertinent/Service Specific Information: to be assessed Health/Prescription Coverage: Primary Insurance: MEDICARE Secondary Insurance: MEDICAID [place] Prescription Coverage: yes Preferred Pharmacy: [facility] [place], [place] Other: To be assessed Primary Care Provider: VERNA Irving [phone] Patient/Caregiver Goals of Treatment: to return home [...] airway disease dx) accepted in transfer from [facility] for further management of sepsis. She is [...] of care planning. Candace Crain RN Pager: [phone] Consult Note - Tania Mcfarland RN - [...] Please contact TANIA MCFARLAND RN on pager [phone] or the wound care team at [phone] or pager [phone] skin and wound care concerns or questions. Electronically Signed By: TANIA MCFARLAND RN Consult Note - Juan Zapata [facility] - 11/16/2018 9:54 AM EDT Clinical Pharmacist Note-Vanc Rosibel Swainon [phone] 1970 Rosibelranjeet Bowden is a 48 y.o. [...] have. Alternately, during off-hours you may call [phone] to contact a pharmacist. JUAN ZAPATA RPH [...] Signature Glucose Lvl 168 65 - 199 [facility] mg/dL [facility] Comment: Diabetes: >=200 mg/dL plus symp toms BUN 29 (H) 8 - 18 mg/dL [facility] Creatinine 1.48 (H) 0.70 - 1.20 mg/dL [facility] Sodium 139 135 - 145 mmol/L [facility] Potassium 3.5 3.5 - 5.0 mmol/L [facility] Comment: Please note: ??Patients with WBC >100,00 0 may have falsely elevated Potassium levels. ??For accurate Potassium quantif ication in these patients send serum separator tube (gold top) for subsequent determinations. ??Contact the Clinical Chemistry Laboratory if there are any qu estions. Chloride 100 98 - 107 mmol/L [facility] CO2 26 22 - 31 mmol/L [facility] Anion Gap 13 5 - 15 mmol/L [facility] Calcium 9.7 8.5 - 10.5 mg/dL [facility] Estimated GFR 41 (L) >=60 mL/min/1.73 m?? [facility] Comment: The eGFR was calculated using the CKD-EP I equation. As with all creatinine based estimates of kidney function, eGFR values calculated with the CKD-EPI equation are not accurate in patients wi th acute kidney failure, extremes of body mass or the acutely ill. http://[employer]/[facility] eGFR 48 (L) >=60 mL/min/1.73 m?? [facility] Comment: The eGFR was calculated using the CKD-EP I equation. As with all creatinine based estimates of kidney function, eGFR values calculated with the CKD-EPI equation are not accurate in patients wi th acute kidney failure, extremes of body mass or the acutely ill. http://[employer]/[facility] Specimen Anatomical Collection Method Collection Time Receive d Time (Source) Location / / Volume Laterality Blood specimen 11/19/2018 8:45 AM 019 8:58 (specimen) EDT AM EDT Resulting Agency Comment Spec In Lab Hoda Casas MD CHEMISTRY ORDERABLES Performing Organization Address City/State/[place] [address] POCT Glucose (11/19/2018 6:49 AM EDT) P athologist Signature POC Glucose 133 65 - 199 [facility] mg/dL [facility] Comment: Supplemental ranges: <140 mg/dL before meals <180 mg/dL all other times of the day Specimen Anatomical Collection Method Collection Time Receive d Time (Source) Location / / Volume Laterality Blood specimen 11/19/2018 6:49 AM 019 6:49 (specimen) EDT AM EDT Hoda Casas MD POINT OF CARE TEST ORDERABLE S Performing Organization Address City/State/ZIP Code Phon e Number [address] Scan, Peripheral Blood (11/19/2018 5:13 AM EDT) Patholo gist Method Time Signature Plat Estimate Normal [facility] RBC Morphology Abnormal [facility] Macrocytes 1-5 /HPF [facility] Specimen Anatomical Collection Method Collection Time Receive d Time (Source) Location / / Volume Laterality Blood specimen 11/19/2018 5:13 AM 019 5:54 (specimen) EDT AM EDT Resulting Agency Comment Spec In Lab Hoda Casas MD HEMATOLOGY ORDERABLES Performing Organization Address City/State/[place] [address] (ABNORMAL) Differential, Automated (11/19/2018 5:13 AM EDT) P athologist Signature Neutrophils % 52.0 % [facility] Neutr Abs (ANC) 4.49 1.70 - [facility] 6.10 [facility] x10(3)/[facility] LABORATORY Lymphocytes % 25.6 % [facility] Lymphocytes Abs 2.2 0.9 - 3.2 [facility] x10(3)/[facility] LABORATORY Monocytes % 9.4 % [facility] Monocyte Abs 0.8 0.3 - 0.9 [facility] x10(3)/[facility] LABORATORY Eosinophils % 0.0 % [facility] Eosinophils Abs 0.0 0.0 - 0.4 [facility] x10(3)/[facility] LABORATORY Basophils % 0.2 % [facility] Basophils Abs 0.0 0.0 - 0.1 [facility] x10(3)/[facility] LABORATORY Immature Gran % 12.80 % [facility] Comment: Immature granulocytes(IG's)percentage an d absolute count will include metamyelocytes, myelocytes, and promyelo cytes. Blood smears from CBCs yielding IG's will be scanned manually for concor dance. If this scan disagrees with the automated IG or if promyelocytes are not ed, a manual differential will be performed. Ree Gran Abs 1.11 (H) 0.00 - 0.04 x10(3)/[facility] LABORATORY Specimen Anatomical Collection Method Collection Time Receive d Time (Source) Location / / Volume Laterality Blood specimen 11/19/2018 5:13 AM 019 5:54 (specimen) EDT AM EDT Resulting Agency Comment Spec In Lab Hoda Casas MD HEMATOLOGY ORDERABLES Performing Organization Address City/State/[place] [address] (ABNORMAL) Hemogram (11/19/2018 5:13 AM EDT) Analysis Performed At Patho logist Time Signature WBC 8.6 4.0 - 9.5 [facility] x10(3)/[facility] LABORATORY RBC 4.25 4.00 - [facility] MARY 5.21 [facility] x10(6)/[facility] LABORATORY Hemoglobin 13.2 11.7 - [facility] 15.[facility] gm/dL [facility] Hematocrit 40.9 35.7 - [facility] 45.8 % [facility] MCV 96.2 (H) 82.6 - [facility] 94.4 [facility] LABORATORY MCH 31.1 27.1 - [facility] M[facility] 32.0 pg [facility]ORY MCHC 32.3 31.7 - [facility] 35.0 gm/dL [facility] Platelets 212 145 - 357 [facility] x10(3)/[facility] LABORATORY RDWSD 51.0 (H) 37.0 - [facility] 46.0 [facility] LABORATORY RDWCV 14.4 (H) 11.5 - [facility] 14.1 % [facility] LABOR[facility]ORY MPV 10.2 7.6 - 12.9 [facility] nRBC % Auto 0.0 % [facility] LAB[facility] nRBC Abs Auto 0.000 0.000 - [facility] 0.000 [facility] x10(3)/[facility] LABORATORY Specimen Anatomical Collection Method Collection Time Receive d Time (Source) Location / / Volume Laterality Blood specimen 11/19/2018 5:13 AM 5:54 (specimen) EDT AM EDT Resulting Agency Comment Spec In Lab Hoda Casas MD HEMATOLOGY ORDERABLES Performing Organization Address City/State/[place] [address] POCT Glucose (11/18/2018 9:39 PM EDT) athologist Signature POC Glucose 133 65 - 199 [facility] mg/dL [facility] Comment: Supplemental ranges: <140 mg/dL before meals <180 mg/dL all other times of the day Specimen Anatomical Collection Method Collection Time Receive d Time (Source) Location / / Volume Laterality Blood specimen 11/18/2018 9:39 PM 019 9:39 (specimen) EDT PM EDT Hoda Casas MD POINT OF CARE TEST ORDERABLE S Performing Organization Address City/State/ZIP Code Phon e Number [address] POCT Glucose (11/18/2018 4:26 PM EDT) athologist Signature POC Glucose 149 65 - 199 [facility] mg/dL [facility] Comment: Supplemental ranges: <140 mg/dL before meals <180 mg/dL all other times of the day Specimen Anatomical Collection Method Collection Time Receive d Time (Source) Location / / Volume Laterality Blood specimen 11/18/2018 4:26 PM 019 4:26 (specimen) EDT PM EDT Hoda Casas MD POINT OF CARE TEST ORDERABLE S Performing Organization Address City/State/[place] [address] (ABNORMAL) POCT Glucose (11/18/2018 11:10 AM EDT) athologist Signature POC Glucose 202 (H) 65 - 199 [facility] mg/dL [facility] Comment: Supplemental ranges: <140 mg/dL before meals <180 mg/dL all other times of the day Specimen Anatomical Collection Method Collection Time Receive d Time (Source) Location / / Volume Laterality Blood specimen 11/18/2018 11:10 9 (specimen) AM EDT 11:10 AM EDT Hoda Casas MD POINT OF CARE TEST ORDERABLE S Performing Organization Address City/State/ZIP Code Phon e Number [address] POCT Glucose (11/18/2018 6:37 AM EDT) P athologist Signature POC Glucose 140 65 - 199 [facility] mg/dL [facility] Comment: Supplemental ranges: <140 mg/dL before meals <180 mg/dL all other times of the day Specimen Anatomical Collection Method Collection Time Receive d Time (Source) Location / / Volume Laterality Blood specimen 11/18/2018 6:37 AM 6:37 (specimen) EDT AM EDT Hoda Casas MD POINT OF CARE TEST ORDERABLE S Performing Organization Address City/[facility]/ZIP Code Phon e Number [address] Scan, Peripheral Blood (11/18/2018 4:40 AM EDT) [facility] Method Time Signature Plat Estimate Normal [facility] RBC Morphology Abnormal [facility] Tear Drop gtr than 10 /HPF [facility] LABORATORY [place] Cells 1-5 /HPF [facility] Dohle Bodies Present [facility] Specimen Anatomical Collection Method Collection Time Receive d Time (Source) Location / / Volume Laterality Blood specimen 11/18/2018 4:40 AM 5:19 (specimen) EDT AM EDT Resulting Agency Comment Spec In Lab Hoda Casas MD HEMATOLOGY ORDERABLES Performing Organization Address City/[facility] [facility]/ZIP Code Phon e Number [address] (ABNORMAL) Differential, Automated (11/18/2018 4:40 AM EDT) [facility] [employer] Method Time Signature Neutrophils % 64.5 % [facility] LABORATORY Neutr Abs (ANC) 5.48 1.70 - [facility] 6.10 [facility] x10(3)/[facility] LABORATORY Lymphocytes % 16.9 % [facility] LABORATORY Lymphocytes Abs 1.4 0.9 - 3.2 [facility] x10(3)/[facility] LABORATORY Monocytes % 12.1 % [facility] LABORATORY Monocyte Abs 1.0 (H) 0.3 - 0.9 [facility] x10(3)/[facility] LABORATORY Eosinophils % 0.1 % [facility] LABORATORY Eosinophils Abs 0.0 0.0 - 0.4 [facility] x10(3)/[facility] LABORATORY Basophils % 1.2 % [facility] LABORATORY Basophils Abs 0.1 0.0 - 0.1 [facility] x10(3)/[facility] LABORATORY Immature Gran % 5.20 % [facility] LABORATORY Comment: Immature granulocytes(IG's)percentage an d absolute count will include metamyelocytes, myelocytes, and promyelo cytes. Blood smears from CBCs yielding IG's will be scanned manually for concor dance. If this scan disagrees with the automated IG or if promyelocytes are not ed, a manual differential will be performed. Ree Gran Abs 0.44 (H) 0.00 - 0.04 x10(3)/[facility] LABORATORY Specimen Anatomical Collection Method Collection Time Receive d Time (Source) Location / / Volume Laterality Blood specimen 11/18/2018 4:40 AM 019 5:19 (specimen) EDT AM EDT Resulting Agency Comment Spec In Lab Hoda Casas MD HEMATOLOGY ORDERABLES Performing Organization Address City/State/[place] [address] (ABNORMAL) Hemogram (11/18/2018 4:40 AM EDT) Analysis Performed At Patho logist Time Signature WBC 8.5 4.0 - 9.5 [facility] x10(3)/[facility] LABORATORY RBC 4.12 4.00 - [facility] 5.21 [facility] x10(6)/[facility] LABORATORY Hemoglobin 12.8 11.7 - [facility]dL [facility] LABORATORY Hematocrit 40.3 35.7 - [facility] 45.8 % [facility] LABORATORY MCV 97.8 (H) 82.6 - [facility] 94.4 fL [facility] LABORATORY MCH 31.1 27.1 - [facility] 32.0 pg [facility] LABORATORY MCHC 31.8 31.7 - [facility] 35.[facility] gm/dL [facility] LABORATORY Platelets 158 145 - 357 [facility] x10(3)/[facility] LABORATORY RDWSD 51.9 (H) 37.0 - [facility] 46.0 [facility] LABORATORY RDWCV 14.4 (H) 11.5 - [facility] 14.1 % [facility] LABORATORY MPV 10.8 7.6 - 12.9 [facility] LABORATORY nRBC % Auto 0.0 % [facility] LABORATORY nRBC Abs Auto 0.000 0.000 - [facility] 0.000 [facility] x10(3)/[facility] LABORATORY Specimen Anatomical Collection Method Collection Time Receive d Time (Source) Location / / Volume Laterality Blood specimen 11/18/2018 4:40 AM 019 5:19 (specimen) EDT AM EDT Resulting Agency Comment Spec In Lab Hoda Caass MD HEMATOLOGY ORDERABLES Performing Organization Address City/State/[place] [address] (ABNORMAL) Basic Metabolic Panel (non-fasting) (11/18/2018 4:40 AM EDT) P athologist Signature Glucose Lvl 136 65 - 199 [facility] mg/dL [facility] LABORATORY Comment: Diabetes: >=200 mg/dL plus symp toms BUN 41 (H) 8 - 18 mg/dL [facility] LABORATORY Creatinine 1.94 (H) 0.70 - 1.20 mg/dL [facility] LABORATORY Sodium 137 135 - 145 mmol/L [facility] LABORATORY Potassium 3.5 3.5 - 5.0 mmol/L [facility] LABORATORY Comment: Please note: ??Patients with WBC >100,00 0 may have falsely elevated Potassium levels. ??For accurate Potassium quantif ication in these patients send serum separator tube (gold top) for subsequent determinations. ??Contact the Clinical Chemistry Laboratory if there are any qu estions. Chloride 100 98 - 107 mmol/L [facility] LABORATORY CO2 24 22 - 31 mmol/L [facility] LABORATORY Anion Gap 13 5 - 15 mmol/L [facility] LABORATORY Calcium 9.1 8.5 - 10.5 mg/dL [facility] LABORATORY Comment: result rechecked-JSD Estimated GFR 30 (L) >=60 mL/min/1.73 m?? [facility] LABORATORY Comment: The eGFR was calculated using the CKD-EP I equation. As with all creatinine based estimates of kidney function, eGFR values calculated with the CKD-EPI equation are not accurate in patients wi th acute kidney failure, extremes of body mass or the acutely ill. http://[employer]/[facility] TULSAnkf eGFR 34 (L) >=60 mL/min/1.73 m?? [facility] LABORATORY Comment: The eGFR was calculated using the CKD-EP I equation. As with all creatinine based estimates of kidney function, eGFR values calculated with the CKD-EPI equation are not accurate in patients wi th acute kidney failure, extremes of body mass or the acutely ill. http://[employer]/[facility] TULSAnkf Specimen Anatomical Collection Method Collection Time Receive d Time (Source) Location / / Volume Laterality Blood specimen 11/18/2018 4:40 AM 5:19 (specimen) EDT AM EDT Resulting Agency Comment Spec In Lab Hoda Casas MD CHEMISTRY ORDERABLES Performing Organization Address City/[facility]/ZIP Code Phon e Number [address] POCT Glucose (11/17/2018 7:56 PM EDT) P athologist Signature POC Glucose 169 65 - 199 [facility] mg/dL [facility] LABORATORY Comment: Supplemental ranges: <140 mg/dL before meals <180 mg/dL all other times of the day Specimen Anatomical Collection Method Collection Time Receive d Time (Source) Location / / Volume Laterality Blood specimen 11/17/2018 7:56 PM 019 7:56 (specimen) EDT PM EDT Hoda Casas MD POINT OF CARE TEST ORDERABLE S Performing Organization Address City/State/[place] [address] POCT Glucose (11/17/2018 4:13 PM EDT) athologist Signature POC Glucose 154 65 - 199 [facility] mg/dL [facility] LABORATORY Comment: Supplemental ranges: <140 mg/dL before meals <180 mg/dL all other times of the day Specimen Anatomical Collection Method Collection Time Receive d Time (Source) Location / / Volume Laterality Blood specimen 11/17/2018 4:13 PM 4:13 (specimen) EDT PM EDT Hoda Casas MD POINT OF CARE TEST ORDERABLE S Performing Organization Address City/State/ZIP Code Phon e Number [address] POCT Glucose (11/17/2018 11:47 AM EDT) athologist Signature POC Glucose 167 65 - 199 [facility] mg[facility]dL [facility] LABORATORY Comment: Supplemental ranges: <140 mg/dL before meals <180 mg/dL all other times of the day Specimen Anatomical Collection Method Collection Time Receive d Time (Source) Location / / Volume Laterality Blood specimen 11/17/2018 11:47 9 (specimen) AM EDT 11:47 AM EDT Hoda Casas MD POINT OF CARE TEST ORDERABLE S Performing Organization Address City/State/ZIP Code Phon e Number [address] POCT Glucose (11/17/2018 7:24 AM EDT) athologist Signature POC Glucose 166 65 - 199 [facility] mg/dL [facility] LABORATORY Comment: Supplemental ranges: <140 mg/dL before meals <180 mg/dL all other times of the day Specimen Anatomical Collection Method Collection Time Receive d Time (Source) Location / / Volume Laterality Blood specimen 11/17/2018 7:24 AM 7:24 (specimen) EDT AM EDT Olvin Doran MD POINT OF CARE TEST ORDERABLE S Performing Organization Address City/State/[place] [address] POCT Glucose (11/17/2018 6:22 AM EDT) athologist Signature POC Glucose 136 65 - 199 [facility] mg/dL [facility] LABORATORY Comment: Supplemental ranges: <140 mg/dL before meals <180 mg/dL all other times of the day Specimen Anatomical Collection Method Collection Time Receive d Time (Source) Location / / Volume Laterality Blood specimen 11/17/2018 6:22 AM 6:22 (specimen) EDT AM EDT Olvin Doran MD POINT OF CARE TEST ORDERABLE S Performing Organization Address City/[facility]/[place] [address] Vancomycin, trough (11/17/2018 6:20 AM EDT) athologist Signature Vanc Trough 17.8 mg/L [facility] LABORATORY Comment: Therapeutic range for complicated [...] Casas MD CHEMISTRY ORDERABLES Performing Organization Address City/[facility]/ZIP [facility] [place] [address] (ABNORMAL) Differential, Automated (11/17/2018 1:25 AM EDT) athologist Signature Neutrophils % 74.6 % [facility] LABORATORY Neutr Abs (ANC) 5.50 1.70 - [facility] 6.10 [facility] x10(3)/[facility] LABORATORY Lymphocytes % 12.7 % [facility] LABORATORY Lymphocytes Abs 0.9 0.9 - 3.2 [facility] x10(3)/[facility] LABORATORY Monocytes % 10.4 % [facility] LABORATORY Monocyte Abs 0.8 0.3 - 0.9 [facility] x10(3)/[facility] LABORATORY Eosinophils % 0.0 % [facility] LABORATORY Eosinophils Abs 0.0 0.0 - 0.4 [facility] x10(3)/[facility] LABORATORY Basophils % 0.5 % [facility] LABORATORY Basophils Abs 0.0 0.0 - 0.1 [facility] x10(3)/[facility] LABORATORY Immature Gran % 1.80 % [facility] LABORATORY Comment: Immature granulocytes(IG's)percentage an d absolute count will include metamyelocytes, myelocytes, and promyelo cytes. Blood smears from CBCs yielding IG's will be scanned manually for concor dance. If this scan disagrees with the automated IG or if promyelocytes are not ed, a manual differential will be performed. Ree Gran Abs 0.13 (H) 0.00 - 0.04 x10(3)/[facility] LABORATORY Specimen Anatomical Collection Method Collection Time Receive d Time (Source) Location / / Volume Laterality Blood specimen 11/17/2018 1:25 AM 019 1:42 (specimen) EDT AM EDT Resulting Agency Comment Spec In Lab Kandis Tee MD HEMATOLOGY ORDERABLES Performing Organization Address City/State/[place] [address] (ABNORMAL) Hemogram (11/17/2018 1:25 AM EDT) Analysis Performed At Patho logist Time Signature WBC 7.4 4.0 - 9.5 [facility] x10(3)/[facility] LABORATORY RBC 3.84 (L) 4.00 - [facility] 5.21 [facility] x10(6)/[facility] LABORATORY Hemoglobin 12.2 11.7 - [facility] 15.5 gm/dL [facility] LABORATORY Hematocrit 36.9 35.7 - [facility] 45.8 % [facility] LABORATORY MCV 96.1 (H) 82.6 - [facility] 94.4 fL [facility] LABORATORY MCH 31.8 27.1 - [facility] LABORATORY MCHC 33.1 31.7 - [facility] 35.0 gm/dL [facility] LABORATORY Platelets 125 (L) 145 - 357 [facility] x10(3)/[facility] LABORATORY RDWSD 51.3 (H) 37.0 - [facility]ARY 46.0 [facility] LABORATORY RDWCV 14.4 (H) 11.5 - [facility] 14.1 % [facility] LABORATORY MPV 11.2 7.6 - 12.9 [facility] LABORATORY nRBC % Auto 0.0 % [facility] LABORATORY nRBC Abs Auto 0.000 0.000 - [facility] 0.000 [facility] x10(3)/[facility] LABORATORY Specimen Anatomical Collection Method Collection Time Receive d Time (Source) Location / / Volume Laterality Blood specimen 11/17/2018 1:25 AM 019 1:42 (specimen) EDT AM EDT Resulting Agency Comment Spec In Lab Kandis Tee MD HEMATOLOGY ORDERABLES Performing Organization Address City/State/[place] [address] (ABNORMAL) Basic Metabolic Panel (non-fasting) (11/17/2018 1:25 AM EDT) P athologist Signature Glucose Lvl 140 65 - 199 [facility] mg/dL [facility] LABORATORY Comment: Diabetes: >=200 mg/dL plus symp toms BUN 48 (H) 8 - 18 mg/dL [facility] LABORATORY Creatinine 2.59 (H) 0.70 - 1.20 mg/dL [facility] LABORATORY Comment: result rechecked-JSD Sodium 135 135 - 145 mmol/L [facility] LABORATORY Potassium 3.2 (L) 3.5 - 5.0 mmol/L [facility] LABORATORY Comment: Please note: ??Patients with WBC >100,00 0 may have falsely elevated Potassium levels. ??For accurate Potassium quantif ication in these patients send serum separator tube (gold top) for subsequent determinations. ??Contact the Clinical Chemistry Laboratory if there are any qu estions. Chloride 101 98 - 107 mmol/L [facility] LABORATORY CO2 21 (L) 22 - 31 mmol/L [facility] LABORATORY Anion Gap 13 5 - 15 mmol/L [facility] LABORATORY Calcium 7.7 (L) 8.5 - 10.5 mg/dL [facility] LABORATORY Comment: result rechecked-JSD Estimated GFR 21 (L) >=60 mL/min/1.73 m?? [facility] LABORATORY Comment: The eGFR was calculated using the CKD-EP I equation. As with all creatinine based estimates of kidney function, eGFR values calculated with the CKD-EPI equation are not accurate in patients wi th acute kidney failure, extremes of body mass or the acutely ill. http://[employer] eGFR 24 (L) >=60 mL/min/1.73 m?? [facility] LABORATORY Comment: The eGFR was calculated using the CKD-EP I equation. As with all creatinine based estimates of kidney function, eGFR values calculated with the CKD-EPI equation are not accurate in patients wi th acute kidney failure, extremes of body mass or the acutely ill. http://[employer]/[facility] TULSAnkf Specimen Anatomical Collection Method Collection Time Receive d Time (Source) Location / / Volume Laterality Blood specimen 11/17/2018 1:25 AM 019 1:42 (specimen) EDT AM EDT Resulting Agency Comment Spec In Lab Hoda Casas MD CHEMISTRY ORDERABLES Performing Organization Address City/State/[place] [address] POCT Glucose (11/16/2018 8:13 PM EDT) P athologist Signature POC Glucose 191 65 - 199 [facility] mg/dL [facility] LABORATORY Comment: Supplemental ranges: <140 mg/dL before meals <180 mg/dL all other times of the day Specimen Anatomical Collection Method Collection Time Receive d Time (Source) Location / / Volume Laterality Blood specimen 11/16/2018 8:13 PM 019 8:13 (specimen) EDT PM EDT Olvin Doran MD POINT OF CARE TEST ORDERABLE S Performing Organization Address City/State/[place] [address] POCT Glucose (11/16/2018 4:30 PM EDT) athologist Signature POC Glucose 137 65 - 199 [facility] mg/dL [facility] LABORATORY Comment: Supplemental ranges: <140 mg/dL before meals <180 mg/dL all other times of the day Specimen Anatomical Collection Method Collection Time Receive d Time (Source) Location / / Volume Laterality Blood specimen 11/16/2018 4:30 PM 019 4:30 (specimen) EDT PM EDT Olvin Doran MD POINT OF CARE TEST ORDERABLE S Performing Organization Address City/[facility]/[place] [address] POCT Glucose (11/16/2018 11:37 AM EDT) athologist Signature POC Glucose 131 65 - 199 [facility] mg/dL [facility] LABORATORY Comment: Supplemental ranges: <140 mg/dL before meals <180 mg/dL all other times of the day Specimen Anatomical Collection Method Collection Time Receive d Time (Source) Location / / Volume Laterality Blood specimen 11/16/2018 11:37 9 (specimen) AM EDT 11:37 AM EDT Mylene Oakley MD POINT OF CARE TEST ORDER HOLLY Performing Organization Address City/[facility]/[place] [address] XR Chest One View [...] report, please contact e number below. ? Narrative 11/16/2018 11:12 AM EDT EXAMINATION: XR [...] this report, please contact e number below. Mylene Oakley MD IMG DX ORDERABLES POCT Glucose (11/16/2018 7:23 AM EDT) athologist Signature POC Glucose 132 65 - 199 [facility] mg/dL [facility] LABORATORY Comment: Supplemental ranges: <140 mg/dL before meals <180 mg/dL all other times of the day Specimen Anatomical Collection Method Collection Time Receive d Time (Source) Location / / Volume Laterality Blood specimen 11/16/2018 7:23 AM 019 7:23 (specimen) EDT AM EDT Mylene Oakley MD POINT OF CARE TEST ORDER HOLLY Performing Organization Address City/State/[place] [address] Blood culture (11/16/2018 6:30 AM EDT) Patholo gist Method Time Signature Blood Culture No growth KENDRA HERNANDEZ at 5 days. [facility] LABORATORY Specimen Anatomical Collection Method Collection Time Receive d Time (Source) Location / / Volume Laterality Blood specimen STRUCTURE OF LEFT 11/16/2018 6:30 AM 7:29 (specimen) HAND / Unknown EDT AM EDT Resulting Agency Comment Spec In Lab Mylene Oakley MD MICROBIOLOGY - BLOOD ORD ERABLES Performing Organization Address City/State/[place] [address] (ABNORMAL) POCT Glucose (11/16/2018 3:50 AM EDT) P athologist Signature POC Glucose 209 (H) 65 - 199 [facility] mg/dL [facility] LABORATORY Comment: Supplemental ranges: <140 mg/dL before meals <180 mg/dL all other times of the day Specimen Anatomical Collection Method Collection Time Receive d Time (Source) Location / / Volume Laterality Blood specimen 11/16/2018 3:50 AM 019 3:50 (specimen) EDT AM EDT Mylene Oakley MD POINT OF CARE TEST ORDER HOLLY Performing Organization Address City/[facility]/[place] [address] (ABNORMAL) Urine culture (11/16/2018 3:31 AM EDT) Patholo gist Method Time Signature Urine Culture 1,000-9,000 KENDRA HERNANDEZ cfu/ml Gram [facility] Rods (A) LABORATORY Organism Gram [facility] Rods (A) HOSPITAL LABORATORY Specimen (Source) Anatomical Collection Method Collection Time Re ceived Time Location / / Volume Laterality Urine specimen 11/16/2018 3:31 11/16/2018 5:16 obtained via AM EDT AM EDT indwelling urinary catheter (specimen) Resulting Agency Comment Spec In Lab Osvaldo Beebe MD MICROBIOLOGY - GENERAL ORDER HOLLY Performing Organization Address City/[facility]/[place] [address] (ABNORMAL) Urinalysis Microscopic Exam (11/16/2018 3:31 AM EDT) [employer] Method Time Signature RBC UA >182 (H) 0 - 4 [facility] LABORATORY WBC UA >182 (H) 0 - 5 [facility] LABORATORY WBCs Clumping Many (A) None /HPF [facility] LABORATORY Bacteria UA Moderate (A) None /HPF [facility] LABORATORY Squam Epith 5 (H) <=4 /HPF [facility] LABORATORY Specimen (Source) Anatomical Collection Method Collection Time Re ceived Time Location / / Volume Laterality Urine specimen 11/16/2018 3:31 11/16/2018 3:58 obtained via AM EDT AM EDT indwelling urinary catheter (specimen) Resulting Agency Comment Spec In Lab Osvaldo Beebe MD URINE ORDERABLES Performing Organization Address City/[facility] [place] [address] (ABNORMAL) Urinalysis with reflex Culture (11/16/2018 3:31 AM EDT) [employer] Method Time Signature Glucose UA Negative Negative [facility] mg/dL [facility] LABORATORY Protein UA >=500 (A) Negative [facility] mg/dL [facility] LABORATORY Bilirubin UA Negative Negative [facility] mg/dL [facility] LABORATORY Comment: Clinical correlation required for positi ve Urine Bilirubin results as false positive may occur with some drugs and d rug related products. If a false positive is suspected a serum total bili palacios should be considered if clinically indicated. Urobilinogen UA 2.0 (A) Normal mg/dL [facility] LABORATORY pH UA 5.0 5.0 - 8.0 [facility] LABORATORY Blood UA Large (A) Negative mg/dL [facility] LABORATORY Ketones UA Negative Negative mg/dL [facility] LABOR[facility]ORY Nitrite UA Negative Negative [facility] LABORATORY Leukocytes UA Moderate (A) Negative mcL [facility] LABORATORY Appearance UA Cloudy (A) Clear [facility] LABORATORY Spec [place] UA 1.017 1.002 - 1.030 [facility] LABORATORY Color UA Maritza Yellow [facility] LABORATORY Culture Reflexed Yes [facility] LABORATORY Specimen (Source) Anatomical Collection Method Collection Time Re ceived Time Location / / Volume Laterality Urine specimen 11/16/2018 3:31 11/16/2018 3:55 obtained via AM EDT AM EDT indwelling urinary catheter (specimen) Resulting Agency Comment Spec In Lab Mylene Oakley MD URINE ORDERABLES Performing Organization Address City/[facility]/ZIP Code Phon e Number [address] Urea nitrogen, urine, random (11/16/2018 2:44 AM EDT) P athologist Signature U Urea 108 mg/dL [facility] LABORATORY Specimen Anatomical Collection Method Collection Time Receive d Time (Source) Location / / Volume Laterality Urine specimen 11/16/2018 2:44 AM 019 3:13 (specimen) EDT AM EDT Resulting Agency Comment Spec In Lab Mylene Oakley MD URINE ORDERABLES Performing Organization Address City/[facility]/ZIP Code Phon e Number [address] Creatinine, urine, random (11/16/2018 2:44 AM EDT) P athologist Signature U Creatinine 120 mg/dL [facility] LABORATORY Specimen Anatomical Collection Method Collection Time Receive d Time (Source) Location / / Volume Laterality Urine specimen 11/16/2018 2:44 AM 019 3:13 (specimen) EDT AM EDT Resulting Agency Comment Spec In Lab Mylene Oakley MD URINE ORDERABLES Performing Organization Address City/[facility]/ZIP Code Phon e Number [address] Electrolytes, urine, random (11/16/2018 2:44 AM EDT) P athologist Signature U Sodium 65 mmol/L [facility] LABORATORY U Potassium 33 mmol/L [facility] LABORATORY U Chloride 33 mmol/L [facility] [facility] Specimen Anatomical Collection Method Collection Time Receive d Time (Source) Location / / Volume Laterality Urine specimen 11/16/2018 2:44 AM 019 3:13 (specimen) EDT AM EDT Resulting Agency Comment Spec In Lab Mylene Oakley MD URINE ORDERABLES Performing Organization Address City/[facility]/[place] [address] (ABNORMAL) Hemoglobin A1c (11/16/2018 [...] Mellitus, Diabetes Care 2013; 36: Suppl. 1, S67-61 Est Avg Gluc 149 mg/dL [facility] Comment: eAG equivalents for HbA1c [...] into estimated average glucose values. ??Diabetes Care 2008:31(8):0625-9994. Specimen Anatomical Collection Method Collection Time Receive d Time (Source) Location / / Volume Laterality Blood specimen Venous Draw / 11/16/2018 2:30 AM 2018 (specimen) Unknown EDT 12:33 PM EDT Resulting Agency Comment Spec In Lab Kandis Tee MD CHEMISTRY ORDERABLES Performing Organization Address City/State/[place] [address] (ABNORMAL) Differential, Automated (11/16/2018 2:30 AM EDT) [facility] gist Method Time Signature Neutrophils % 78.2 % [facility] Neutr Abs (ANC) 8.57 (H) 1.70 - [facility] 6.10 [facility] x10(3)/[facility] L LABORATORY Lymphocytes % 10.4 % [facility] Lymphocytes Abs 1.1 0.9 - 3.2 [facility] x10(3)/[facility] LABORATORY Monocytes % 9.0 % [facility] Monocyte Abs 1.0 (H) 0.3 - 0.9 [facility] x10(3)/[facility] LABORATORY Eosinophils % 0.0 % [facility] Eosinophils Abs 0.0 0.0 - 0.4 [facility] x10(3)/[facility] LABORATORY Basophils % 0.5 % [facility] Basophils Abs 0.0 0.0 - 0.1 [facility] x10(3)/[facility] LABORATORY Immature Gran % 1.90 % [facility] Comment: Immature granulocytes(IG's)percentage an d absolute count will include metamyelocytes, myelocytes, and promyelo cytes. Blood smears from CBCs yielding IG's will be scanned manually for concor dance. If this scan disagrees with the automated IG or if promyelocytes are not ed, a manual differential will be performed. Ree Gran Abs 0.21 (H) 0.00 - 0.04 x10(3)/[facility] LABORATORY Specimen Anatomical Collection Method Collection Time Receive d Time (Source) Location / / Volume Laterality Blood specimen 11/16/2018 2:30 AM 019 2:35 (specimen) EDT AM EDT Resulting Agency Comment Spec In Lab Osvaldo Beebe MD HEMATOLOGY ORDERABLES Performing Organization Address City/State/[place] [address] (ABNORMAL) Hemogram (11/16/2018 2:30 AM EDT) Analysis Performed At Patho logist Time Signature WBC 11.0 (H) 4.0 - 9.5 [facility] x10(3)/[facility] LABORATORY RBC 4.32 4.00 - [facility] 5.21 [facility] x10(6)/[facility] LABORATORY Hemoglobin 13.5 11.7 - [facility] 15.[facility] gm/dL [facility]ORY Hematocrit 41.5 35.7 - [facility] 45.8 % [facility] MCV 96.1 (H) 82.6 - [facility] 94.4 fL [facility] MCH 31.3 27.1 - [facility] 32.0 pg [facility]ORY MCHC 32.5 31.7 - [facility] 35.0 gm/dL [facility]ORY Platelets 173 145 - 357 [facility] x10(3)/[facility] LABORATORY RDWSD 51.8 (H) 37.0 - [facility] 46.0 [facility] LABORATORY RDWCV 14.5 (H) 11.5 - [facility] 14.1 % [facility] LABORATORY MPV 11.4 7.6 - 12.9 [facility] LABORATORY nRBC % Auto 0.0 % [facility] nRBC Abs Auto 0.000 0.000 - [facility] 0.000 [facility] x10(3)/[facility] LABORATORY Specimen Anatomical Collection Method Collection Time Receive d Time (Source) Location / / Volume Laterality Blood specimen 11/16/2018 2:30 AM 019 2:35 (specimen) EDT AM EDT Resulting Agency Comment Spec In Lab Osvaldo Beebe MD HEMATOLOGY ORDERABLES Performing Organization Address City/[facility]/ZIP [facility] Phon e Number [address] Lactate, whole blood, send to lab ([facility]) (11/16/2018 2:30 AM EDT) P athologist Signature Lactate WB 1.7 0.5 - 2.2 [facility] mmol/L [facility]ORY Specimen Anatomical Collection Method Collection Time Receive d Time (Source) Location / / Volume Laterality Blood specimen 11/16/2018 2:30 AM 019 2:35 (specimen) EDT AM EDT Resulting Agency Comment Spec In Lab Mylene Oakley MD CHEMISTRY ORDERABLES Performing Organization Address City/[facility]/ZIP Code Phon e Number [address] (ABNORMAL) CMP w/fasting Glucose (11/16/2018 2:30 AM EDT) P athologist Signature Glucose 227 (H) 65 - 99 [facility] Fasting mg/dL [facility] Comment: ?Fasting* Glucose Interpretive C [...] of Diabetes Mellitus, Position Statement from the [employer]. ??Diabete s Care, Volume 33, Supplement 1, Feb 2009 BUN 57 (H) 8 - 18 mg/dL [facility] Creatinine 3.79 (H) 0.70 - 1.20 mg/dL [facility] Sodium 134 (L) 135 - 145 mmol/L [facility] Potassium 3.8 3.5 - 5.0 mmol/L [facility] Comment: Please note: ??Patients with WBC >100,00 0 may have falsely elevated Potassium levels. ??For accurate Potassium quantif ication in these patients send serum separator tube (gold top) for subsequent determinations. ??Contact the Clinical Chemistry Laboratory if there are any qu estions. Chloride 95 (L) 98 - 107 mmol/L [facility] CO2 23 22 - 31 mmol/L [facility] Anion Gap 16 (H) 5 - 15 mmol/L [facility] Calcium 8.9 8.5 - 10.5 mg/dL [facility] Total Protein 7.0 6.1 - 8.0 gm/dL [facility]OR[facility] Albumin 3.2 3.2 - 5.2 gm/dL [facility] AST 48 (H) 0 - 30 unit/L [facility] ALT 24 0 - 30 unit/L [facility] Alk Phos 105 35 - 105 unit/L [facility] Total Bilirubin 0.6 0.2 - 1.3 mg/dL [facility] Estimated GFR 13 (L) >=60 mL/min/1.73 m?? [facility] Comment: The eGFR was calculated using the CKD-EP I equation. As with all creatinine based estimates of kidney function, eGFR values calculated with the CKD-EPI equation are not accurate in patients wi th acute kidney failure, extremes of body mass or the acutely ill. http://[employer]/[facility]kf eGFR 15 (L) >=60 mL/min/1.73 m?? [facility] Comment: The eGFR was calculated using the CKD-EP I equation. As with all creatinine based estimates of kidney function, eGFR values calculated with the CKD-EPI equation are not accurate in patients wi th acute kidney failure, extremes of body mass or the acutely ill. http://[employer]/[facility]kf Specimen Anatomical Collection Method Collection Time Receive d Time (Source) Location / / Volume Laterality Blood specimen 11/16/2018 2:30 AM 019 2:35 (specimen) EDT AM EDT Resulting Agency Comment Spec In Lab Mylene Oakley MD CHEMISTRY ORDERABLES Performing Organization Address City/State/ZIP Code Phon e Number [address] Magnesium (11/16/2018 2:30 AM EDT) P athologist Signature Magnesium 0.73 0.69 - 1.07 [facility] mmol/L [facility] LABORATORY Specimen Anatomical Collection Method Collection Time Receive d Time (Source) Location / / Volume Laterality Blood specimen 11/16/2018 2:30 AM 019 2:35 (specimen) EDT AM EDT Resulting Agency Comment Spec In Lab Mylene Oakley MD CHEMISTRY ORDERABLES Performing Organization Address City/State/ZIP Code Phon e Number [address] Phosphorus (11/16/2018 2:30 AM EDT) P athologist Signature Phosphorus 2.7 2.5 - 4.5 [facility] mg/dL [facility] LABORATORY Specimen Anatomical Collection Method Collection Time Receive d Time (Source) Location / / Volume Laterality Blood specimen 11/16/2018 2:30 AM 019 2:35 (specimen) EDT AM EDT Resulting Agency Comment Spec In Lab Mylene Oakley MD CHEMISTRY ORDERABLES Performing Organization Address City/[facility]/[place]IP [place] [address] APTT (11/16/2018 2:30 AM EDT) P athologist Signature PTT 29 25 - 37 sec [facility] Comment: The PTT is NOT [...] Oakley MD HEMATOLOGY ORDERABLES Performing Organization Address City/[facility] [place] [address] (ABNORMAL) Prothrombin Time (11/16/2018 2:30 AM EDT) P athologist Signature PT 13.4 (H) 9.4 - 12.5 [facility] LABORATORY INR 1.2 [facility] Comment: An INR <2.0 indicates [...] Oakley MD HEMATOLOGY ORDERABLES Performing Organization Address City/[facility]/[place] [address] (ABNORMAL) POCT Glucose (11/16/2018 1:57 AM EDT) P athologist Signature POC Glucose 214 (H) 65 - 199 [facility] mg/dL [facility] Comment: Supplemental ranges: <140 mg/dL before meals <180 mg/dL all other times of the day Specimen Anatomical Collection Method Collection Time Receive d Time (Source) Location / / Volume Laterality Blood specimen 11/16/2018 1:57 AM 019 1:57 (specimen) EDT AM EDT Mylene Oakley MD POINT OF CARE TEST ORDER [place] Performing Organization Address City/State/[place] [address] documented in this encounter [...] Provider: Emilee Abreu, PARMINDER)1229 (Given - Provider: Dinote Rice, PARMINDER) 0702 (Given - Provider: Jen [...]
Routine documented in this encounter Care Teams Senior Supply Chain Analyst Relationship Specialty Start Date End Date Maria Del Carmen Nogueira PA PCP - General 01/27/14 10/05/19 [address] [place] [address] documented as of this encounter
--- OUTSIDE RECORDS SUMMARY | 2021-08-27 15:46 | XMS_ITS | Encounter Summary ---
:1970 Author Organization [facility] [place] [address] Care Team Providers Name Role Phone Maria Del Carmen Nogueira Primary Care Provider Encounter Details Date Type Department Care Team Description 11/21/2018 Orders Only Hospitalist at [facility] Lance Lea, [facility] [place] [address] [facility] [phone] GENERAL INTERNAL MEDICINE [place] [phone] (Wo rk) Social History Tobacco Use Types [...] on filedocumented in this encounter Care Teams Manager Risk Management Relationship Specialty Start Date End Date Maria Del Carmen Nogueira PA PCP - General 01/27/14 10/05/19 [address] [place] [address] documented as of this encounter
--- OUTSIDE RECORDS SUMMARY | 2021-08-27 15:46 | XMS_ITS | Encounter Summary ---
:1970 Author Organization [facility] [place] [address] Care Team Providers Name Role Phone Maria Del Carmen Nogueira Primary Care Provider Encounter Details Date Type Department Care Team Description 11/15/2018 Ancillary Procedure Radiology Library at Cathi Nogueira [facility] [address] [place] [address] [place] [address] [phone] Social History Tobacco Use Types Packs/Day Years [...] Organization Address City/State/ZIP Code Phon e Number [place], [place] documented in this encounter Visit Diagnoses Not on filedocumented in this encounter Care Teams Chief Clinical Officer Relationship Specialty Start Date End Date Maria Del Carmen Nogueira PA PCP - General 01/27/14 10/05/19 [address] [place] [address] documented as of this encounter
--- OUTSIDE RECORDS SUMMARY | 2021-08-27 15:46 | XMS_ITS | Encounter Summary ---
:1970 Author Organization [facility] [place] [address] Care Team Providers Name Role Phone Maria Del Carmen Nogueira Primary Care Provider Encounter Details Date Type Department Care Team Description 03/03/2019 Hospital Encounter Mobile Sarah Gonzalezpolly brown heart Echocardiography MD Ghassan failure, unspecified [facility] [address] HOSPTIAL HF chronicity, [place], [place] [address] failure type [id number] Social History Tobacco Use [...] . ?? (Age): 1970(48y) Med Rec#: ? [id number] ?Sex: ?F ? Site Loc: ? [place] ??H t / Wt: ??157.48(cm)/115. Pt. Loc: ?Adult Floor ? BSA: ?2.12 Study Date: ?? 03/03/2019 ?Pt. Type: Inpatient Tape: ? Referring: MAURA Referring: KITA (Diag Imaging) Referring: KITARH(Med Rec) Referring: NV(Med/Surg) Reading: Stephen Blanton ??([id number]) Trousseau Consultant: [facility] Trousseau Consultant: [facility] Diagnosis: *Heart failure, unspecified (I50.9) BP: ? [...] tricuspid. ?There is no evidence of aortic olu ve stenosis. ?Mild (1+/4+) aortic valve regurgit [...] Vmax ?0.58 ? m/sec ? MV deceleration hnat082.78 ? m sec ? MV A-wave Vmax [...] ? Mid-Inferior ?Normal ? Mid-Inferoseptal ?Normal ? [place]-Septal ? Normal ? [place]-Anterior ? Normal ? [place]-Lateral ?Normal ? [place]-Inferior ? Normal ? [place]-Tip ?Normal ? This report has been electronically sign ed by: _ Stephen Blanton MD ? 03/03/2019 11:39 :02 Images reviewed and interpretation verif [facility] Cardiac Ultrasound Laboratory Procedure Note Stephen Blanton MD - 03/03/2019Formattin g of this note might be different from the original. Procedure: Transthoracic Echocardiogram Patient: DENNISE Renteria DOB(Age): 1970(48y) Med Rec#: [id number] Sex: F Site Loc: [facility] Ht / Wt: 157.48(cm)/115. Pt. Loc: Adult Floor BSA: 2.12 Study Date: 03/03/2019 Pt. Type: Inpatie nt Tape: Referring: GILBERTOYOLANDAMOMO Referring: KITA (Diag Imaging) Referring: KITA(Med Rec) Referring: EDENILSON(Med/Surg) Reading: Stephen Blanton ([id number]) Trousseau Consultant: EDWARD Trousseau Consultant: EDWARD Diagnosis: *Heart failure, unspecified (I50.9) BP: [...] MV E-wave Vmax 0.58 m/sec MV deceleration ilvd993.78 msec MV A-wave Vmax 0.61 m/sec MV [...] Normal Mid-Posterolateral Normal Mid-Inferior Normal Mid-Inferoseptal Normal [place]-Septal Normal [place]-Anterior Normal [place]-Lateral Normal [place]-Inferior Normal [place]-Tip Normal This report has been electronically sign ed by: _ Stephen Blanton MD 03/03/2019 11:39:02 Images reviewed and interpretation kit [facility] Cardiac Ultrasound Laboratory Ghassan Gonzalez MD ECHO ORDERABLES Performing Organization Address City/State/ZIP Code Phon e Number [facility] documented in this encounter Visit Diagnoses Diagnosis Congestive heart failure, unspecified HF chronicity, unspecified heart failure type documented in this encounter Care Teams Mass Spectroscopist Relationship Specialty Start Date End Date Maria Del Carmen Nogueira PA PCP - General 01/27/14 10/05/19 [address] [place] [address] documented as of this encounter
--- OUTSIDE RECORDS SUMMARY | 2021-08-27 15:46 | XMS_ITS | Clinical Summary ---
:1970 Author Organization [facility] [place] [place] [address] Care Team Providers Name Role Phone Unknown [...] 1974 Pneumococcal Vaccine: At-Risk 06/25/1975 5-64yrs (1 - PCV) DM Opthalmology Exam 06/25/1979 DM Urine Microalbumin [...] Influenza (Flu) vaccine (1 of 1 - 10/18/2021 Influenza standard series) Insurance Payer Benefit Plan / Subscriber ID Effective Dates Phone Addre ss Type Group MEDICARE MEDICARE PART [id number] 2017-Prese [id number] [facility] [place] [address] [place] [id number] 2019-Prese [phone] [address] [place] [address] Advance Directives Latest Code Status on File Code Status Date Activated Date Inactivated Comments Full Code 11/15/2018 11:54 PM 11/19/2018 1:26 PM Does patient have capacity to make decision: No Code Status decision being made per: Attending of Record Care Teams Director Of The [employer] Facility Relationship Specialty Start Date End Date Unknown PCP - General 10/06/19 None
--- OUTSIDE RECORDS SUMMARY | 2021-08-27 15:46 | XMS_ITS | Encounter Summary ---
:1970 [place] [address] Care Team Providers Name Role Phone Maria Del Carmen Nogueira Primary Care Provider Reason for Visit Reason Onset Date Comments Referral 09/15/2017 Encounter Details Date Type Department Care Team Description 09/15/2017 Telephone Weight and Wellness at Giana Bai APRN Referral [facility] [address] [place] [address] [place] [address] [phone] Social History Tobacco Use Types Packs/Day Years [...] on filedocumented in this encounter Care Teams Business Solutions Director Relationship Specialty Start Date End Date Maria Del Carmen Nogueira PA PCP - General 01/27/14 10/05/19 [address] [place] [address] documented as of this encounter
--- OUTSIDE RECORDS SUMMARY | 2021-08-27 15:46 | XMS_ITS | Encounter Summary ---
:1970 Author Organization [facility] [place] [address] Care Team Providers Name Role Phone Maria Del Carmen Nogueira Primary Care Provider Encounter Details Date Type Department Care Team Description 09/15/2017 Hospital Encounter XRay at [facility] Tristan Gusman Bilateral chronic [address] [place] [address] Dr Minoo MD knee pain [facility] [address] [place] [phone] [place] [address] Social History Tobacco Use Types Packs/Day Years [...] EDT knee pain procedure a re in [facility] the result s BILAT section. documented in this encounter Results XR Knee Standing Alignment AP Lat [facility] Bilat (09/15/2017 8:40 AM EDT) Anatomical Region Laterality Modality Bilateral Digital Radiography Specimen (Source) Anatomical Location Collection Method / Collectio n Time Received Time / Laterality Volume Impressions 09/15/2017 9:07 AM EDT Medial deviation of the bilateral lower extremity weightbearing axes by approximately 3.5 cm each, with severe m tminf-kjisjmabmiv-tvizfdfkpeq OA of both knees. Narrative 09/15/2017 9:07 [...] approximately 3.5 cm each, with severe m fklvj-zvzggsvuthn-rheyhmvkypc OA of both knees. Tristan Gusman MD IMG DX ORDERABLES documented in this encounter Visit Diagnoses Diagnosis Bilateral chronic knee pain Pain in joint, lower leg documented in this encounter Care Teams Custom Feed Mill Operator Relationship Specialty Start Date End Date Maria Del Carmen Nogueira PA PCP - General 01/27/14 10/05/19 [address] [place] [address] documented as of this encounter
--- OUTSIDE RECORDS SUMMARY | 2021-08-27 15:46 | XMS_ITS | Encounter Summary ---
:1970 Author Organization [facility] [place] [address] Care Team Providers Name Role Phone Maria Del Carmen Nogueira Primary Care Provider Encounter Details Date Type Department Care Team Description 11/15/2018 Ancillary Procedure Radiology Library at Cathi Nogueira [facility] [address] [place] [address] [place] [address] [phone] Social History Tobacco Use Types Packs/Day Years [...] Organization Address City/State/ZIP Code Phon e Number [place], [place] documented in this encounter Visit Diagnoses Not on filedocumented in this encounter Care Teams Alcohol Still Operator Relationship Specialty Start Date End Date Maria Del Carmen Nogueira PA PCP - General 01/27/14 10/05/19 [address] [place] [address] documented as of this encounter
--- OUTSIDE RECORDS SUMMARY | 2021-08-27 15:46 | XMS_ITS | Encounter Summary ---
:1970 Author Organization [facility] [place] [address] Care Team Providers Name Role Phone María Nogueira Primary Care Provider Encounter Details Date Type Department Care Team Description 02/25/2014 Hospital Encounter Ultrasound at [facility], DR NAVARRO [facility] Kendra Suárez MD [address] [place] [address] [place] [address] [place] [address] Social History Tobacco Use Types Packs/Day [...] ? pm) Patient Info ID #: ? [id number] ?: ??[birth year] (43 yrs) Name: ? ROSIBEL BOWDEN ?Visit Date: 02/25/2014 03:20 pm Performed By Performed By: ?Flor Mckenna RDMS Attending: ? Floridalma NUÑEZ, Guilherme Rodriguez Referred By: ? MARÍA GAY MD Service(s) Provided ??[facility] - Ultrasound - Transvaginal - [phone] ? [id number] Indications ??RLQ ABDOMINAL PAIN ??MENTRASAL ABN ------- [...] 10/2014 03:45 pm) Patient Info ID #: [id number] : [birth year] (43 y rs) Name: ROSIBEL BOWDEN Visit Date: 10/2014 03:20 pm Performed By Performed By: Flor Mckenna RDMS Attending: Guilherme Hedrick MD Referred By: MARÍA GAY MD Service(s) Provided [facility] - Ultrasound - Transvaginal - [phone] Indications RLQ ABDOMINAL PAIN MENTRASAL ABN ------- [...] on filedocumented in this encounter Care Teams Community Organization Director Relationship Specialty Start Date End Date María Nogueira PA PCP - General 01/27/14 10/05/19 [address] [place] [address] documented as of this encounter
--- OUTSIDE RECORDS SUMMARY | 2021-08-27 15:47 | XMS_ITS | Clinical Summary ---
:1970 Author Organization [facility] Address [address] [place] [address] Care Team Providers Name Role Phone Maria Del Carmen Nogueira PA-C Primary Care Provider [phone] Encounters Date Type Specialty Care Team Description 08/21/2021 Lab Requisition Clinical Laboratory Outr Resulting Lab , Provider 08/11/2021 Lab Requisition Clinical Laboratory Outr Resulting Lab , Provider from Last 3 Months Social History Tobacco Use Types Packs/Day Years Used Date Never Assessed Sex Assigned at Date Recorded Not on file Plan of Treatment Not on file Procedures Procedure Name Priority Date/Time Associated Comments Diagnosis LEGIONELLA ANTIGEN Routine 08/21/2021 2:02 EDT Re sults for this DETECTION, URINE procedure a re in the results section. LEGIONELLA ANTIGEN Routine 08/10/2021 22:00 Resul ts for this DETECTION, URINE EDT procedure a re in the results section. from Last 3 Months Results LEGIONELLA ANTIGEN DETECTION, URINE (08/21/2021 2:02 EDT)Only the most recent of 2 resultswithin the time period is included. Pathologist Sig nature Legionella Antigen Negative Negative [facility] Detection LABORATORY SERVICES Specimen Urine - Urine specimen collection, clean catch (procedure) Performing Organization Address City/State/ZIP Code Phon e Number [facility]OR[facility]ORY [address] [place] [address] SERVICES from Last 3 Months Insurance Payer Benefit Plan / Subscriber ID Effective Phone Address T ype Group Dates MEDICARE MEDICARE A/B [id number] 2005-Prese [address] [place] [address] [place] 2019-Pres [address] [place], [place] [id number] Care Teams Consultant Relationship Specialty Start Date End Date Maria Del Carmen Nogueira PA-C PCP - General 03/23/14
--- OUTSIDE RECORDS SUMMARY | 2021-08-27 15:48 | XMS_ITS | Encounter Summary ---
:1970 Author Organization [facility] Address [address] [place] [address] Care Team Providers Name Role Phone Unavailable Primary Care Provider Unavailable Encounter Details Date Type Department Care Team Description 12/03/2011 Results Only [facility] Ghassan Prado , Laboratory Services - [address] REINOSO [address] [place] [address] [place], [place] [address] [phone] Social History Tobacco Use Types Packs/Day Years Used Date Never Assessed Sex Assigned at Date Recorded Not on file documented as of this encounter Plan of Treatment Not on filedocumented as of this encounter Procedures Procedure Name Priority Date/Time Associated Diagnosis Comme [facility] SURGICAL PATHOLOGY Routine 12/03/2011 0:00 EDT [...] ? ROSIBEL BOWDEN ? Accession #: ? [id number] ? : ? 1970 (Age: 41) ??F [...] specimens are submitted intact as (B). ??(Denice balbuena)/[facility] End of Report Specimen Performing Organization Address City/State/ZIP Code Phon e Number [facility] LABORATORY [address] [place] [address] SERVICES [facility] [address] [place] [address] documented in this encounter Visit Diagnoses Not on filedocumented in this encounter
--- OUTSIDE RECORDS SUMMARY | 2021-08-27 15:48 | XMS_ITS | Encounter Summary ---
:1970 Author Organization [facility] Address [address] [place] [address] Care Team Providers Name Role Phone Maria Del Carmen Nogueira PA-C Primary Care Provider [phone] Encounter Details Date Type Department Care Team Description 03/01/2019 Lab Requisition [facility] Unknown, Provider, Pathology & Laboratory [facility] [address] [facility] [place] [address] Social History Tobacco Use Types Packs/Day Years [...] Intact PTH 45 19 - 88 pg/mL [facility] LABORATO RY SERVICES Specimen Blood - Venous blood (substance) Performing Organization Address City/State/ZIP Code Phon e Number [facility] [address] [place] [address] SERVICES documented in this encounter Visit Diagnoses Not on filedocumented in this encounter Care Teams Tag Maker Relationship Specialty Start Date End Date Maria Del Carmen Nogueira PA-C PCP - General 03/23/14 documented as of this encounter
--- OUTSIDE RECORDS SUMMARY | 2021-08-27 15:48 | XMS_ITS | Encounter Summary ---
:1970 Author Organization [facility] Address [address] [place] [address] Care Team Providers Name Role Phone Unknown, Provider Primary Care Provider Encounter Details Date Type Department Care Team Description 03/21/2014 Hospital Encounter [facility] Unknown, Provider, Harsh Weinert [address] [facility] [phone] [place] [address] (Work) [phone] Social History Tobacco Use Types Packs/Day Years Used Date Never Assessed Sex Assigned at Date Recorded Not on file documented as of this encounter Discharge Disposition Disposition Code Departure Means Destination Home or Self [facility] documented in this encounter Plan of Treatment Not on filedocumented as of this encounter Visit Diagnoses Not on filedocumented in this encounter Care Teams Eligibility Counselor Relationship Specialty Start Date End Date Unknown, Provider, PCP - General 12/05/11 03/22/14 documented as of this encounter
--- OUTSIDE RECORDS SUMMARY | 2021-08-27 15:48 | XMS_ITS | Encounter Summary ---
:1970 Author Organization [facility] Address [address] [place] [address] Care Team Providers Name Role Phone Maria Del Carmen Nogueira PA-C Primary Care Provider [phone] Encounter Details Date Type Department Care Team Description 11/03/2019 Lab Requisition [facility] Santana Thornton MD Encounter for other Pathology & [facility] general examination Laboratory Medicine [facility] [id number] [address] [facility] [phone] [place] [address] (Work) [phone] Social History Tobacco Use Types Packs/Day Years [...] 10:30 EDT) Final Diagnosis A. ENDOMETRIUM, BIOPSY: [facility] - Proliferative endometrium. [facility] Attestation There was significant [facility] Electr onically resident/fellow CENTER signed by Janice chery, involvement in the LABORATORY Dania Dumont MD diagnostic evaluation SERVICES on 10/19 at 1643 of this case. By the signature below, the attending physician certifies that they have personally conducted a gross and/or microscopic examination of the described specimens and rendered or confirmed the above diagnosis. Clinical History [facility] LABORATORY SERVICES Gross Description A. [facility] Received in formalin zoraida d with proper patient identification (initials S, L) and EMB is a 2.5 x 2.0 x 0.5 cm aggregate of clotted blood, blood-tinged mucus and red-brown tissue fragments. Submitted entirely in A1-A2. [facility] RAKESH BAZAN 11/03/2019 19:44 SERVICES Resident/Fellow: Jefferson Patel MD [facility] SERVICES Performing Lab [facility] SERVICES Scanned Images [facility] SERVICES Specimen Tissue - Entire endometrium (body struct ure) Performing Organization Address City/State/ZIP Code Phon e Number [facility] [address] [place] [address] SERVICES documented in this encounter Visit Diagnoses Diagnosis Encounter for other general examination documented in this encounter Care Teams Mobility Specialist Relationship Specialty Start Date End Date Maria Del Carmen Nogueira PA-C PCP - General 03/23/14 documented as of this encounter
--- OUTSIDE RECORDS SUMMARY | 2021-08-27 15:48 | XMS_ITS | Encounter Summary ---
:1970 Author Organization [facility] Address [address] [place] [address] Care Team Providers Name Role Phone Maria Del Carmen Nogueira PA-C Primary Care Provider [phone] Encounter Details Date Type Department Care Team Description 03/19/2021 Lab Requisition [facility] Outr Resulting Lab, Pathology & Laboratory Provider [facility] [address] [place], [place] [address] Social History Tobacco Use Types Packs/Day Years Used Date Never Assessed Sex Assigned at Date Recorded Not on file documented as of this encounter Plan of Treatment Not on filedocumented as of this encounter Procedures Procedure Name Priority Date/Time Associated Diagnosis Comme nts COVID-19 TEST [facility] Today 03/19/2021 14:00 LAB PCR EST COVID-19 TESTING Routine 03/19/2021 14:00 Results for this EST procedure are i n the results section. documented in this encounter Results COVID-19 TEST [facility] LAB PCR (03/19/2021 14:00 EST) Specimen Swab Performing Organization Address City/State/ZIP Code Phon e Number [facility] [address] [place] [address] SERVICES COVID-19 TESTING (03/19/2021 14:00 EST) COVID-19 rt-PCR Negative Negative [facility] Result Comment: CENTER LABORATORY This test [...] performed using the elier SARS-CoV-2 assay ([employer] on the Elier 6800 System Performing Lab [address] [facility] Lab [facility] SERVICES Specimen Swab Performing Organization Address City/State/ZIP Code Phon e Number [facility] [address] [place] [address] SERVICES documented in this encounter Visit Diagnoses Not on filedocumented in this encounter Care Teams Grain Processor Relationship Specialty Start Date End Date Maria Del Carmen Nogueira PA-C PCP - General 03/23/14 documented as of this encounter
--- OUTSIDE RECORDS SUMMARY | 2021-08-27 15:48 | XMS_ITS | Encounter Summary ---
:1970 Author Organization [facility] Address [address] [place] [address] Care Team Providers Name Role Phone Unavailable Primary Care Provider Unavailable Encounter Details Date Type Department Care Team Description 08/15/2009 Results Only [facility] Tray Suárez MD Laboratory Services - [facility] [address] [place], [place] [address] [place] [address] [phone] Social History Tobacco Use Types Packs/Day Years [...] Organization Address City/State/ZIP Code Phon e Number [facility] [address] [place] [address] SERVICES [facility] [address] [place] [address] CYTOPATHOLOGY (08/15/2009 0:00 EDT) Pathology Report: CYTOPATHOLOGY REPORT ? TREVINO ALL EN ? LAB Reports generated via [employer] interface contain original data; ? however they are lacking the format of the original report. ? Caution should be taken when reading/interpreting unformatted reports. ? Name: ? DENNISE, ROSIBEL ? Accession #: ? [id number] ? : ? 1970 (Age: 39) ??F [...] Organization Address City/State/ZIP Code Phon e Number [facility] [address] [place] [address] SERVICES [facility] [address] [place] [address] documented in this encounter Visit Diagnoses Not on filedocumented in this encounter
--- OUTSIDE RECORDS SUMMARY | 2021-08-27 15:48 | XMS_ITS | Encounter Summary ---
:1970 Author Organization [facility] Address [address] [place] [address] Care Team Providers Name Role Phone María Nogueira PA-C Primary Care Provider [phone] Encounter Details Date Type Department Care Team Description 12/07/2015 Results Only [facility]- PRISM Maribel Raoulmaría elena, DO [address] [facility] [address] [place], [place] [id number] (Wo rk) Social History Tobacco Use Types Packs/Day Years Used Date Never Assessed Sex Assigned at Date Recorded Not on file documented as of this encounter Plan of Treatment Not on filedocumented as of this encounter Procedures Procedure Name Priority Date/Time Associated Diagnosis Comme [facility] SURGICAL PATHOLOGY Routine 12/07/2015 13:52 Resul ts for this EDT procedure are i n the results section. documented in this encounter Results SURGICAL PATHOLOGY (12/07/2015 13:52 EDT) Pathology Report: SURGICAL PATHOLOGY REPORT [facility] Reports generated via electronic interface contain catracho ginal data; LABORATORY however they are lacking the format of the original re port. SERVICES Caution should be taken when reading/interpreting unfo rmatted reports. Name: ? ROSIBEL BOWDEN ? Accession #: ? [id number] ? : ? 1970 (Age: 45 ) [...] brown-black cholelith is pres ent. ? Two insurance claim representative se ctions including the entire thickened region and the inked en face cystic duct margin are submitted in 1. Dr. Krishna 12/08/2015 4:05 PM End of Report Specimen Performing Organization Address City/State/ZIP Code Phon e Number [facility] [address] [place] [address] SERVICES documented in this encounter Visit Diagnoses Not on filedocumented in this encounter Care Teams Assistant Corporate Controller Relationship Specialty Start Date End Date María Nogueira PA-C PCP - General 03/23/14 documented as of this encounter
--- OUTSIDE RECORDS SUMMARY | 2021-08-27 15:48 | XMS_ITS | Encounter Summary ---
:1970 Author Organization [facility] Address [address] [place] [address] Care Team Providers Name Role Phone Unavailable Primary Care Provider Unavailable Encounter Details Date Type Department Care Team Description 05/25/2004 Results Only [facility] - Melissa Prado, Chr istopher, conversion DO [address] [facility] [address] [facility] [address] [place] [address] [place] [address] (Wo rk) Social History Tobacco Use Types Packs/Day Years Used Date Never Assessed Sex Assigned at Date Recorded Not on file documented as of this encounter Plan of Treatment Not on filedocumented as of this encounter Procedures Procedure Name Priority Date/Time Associated Diagnosis Comme [facility] SURGICAL PATHOLOGY Routine 05/25/2004 0:00 EDT [...] ? ROSIBEL BOWDEN ? Accession #: ? [id number] ? : ? 1970 (Age: 33) ??F ? Collect Date: ? 05/25/2004 ? Location: ? [facility] ? Receive Date: ? 005 ? Provider: FABRICE PRADO DO Copy to: JAYCEE CRONIN PAPER BAG PRESS OPERATOR ? Final Pathologic Diagnosis: ? Rectum, biopsy: [...] is entirely submitted in one cassette. ??(Dr. Akhtar)/[facility] End of Report Specimen Performing Organization Address City/State/ZIP Code Phon e Number [facility]OR[facility] [address] [place] [address] SERVICES [facility] [address] [place] [address] documented in this encounter Visit Diagnoses Not on filedocumented in this encounter
--- OUTSIDE RECORDS SUMMARY | 2021-08-27 15:48 | XMS_ITS | Encounter Summary ---
:1970 Author Organization [facility] Address [address] [place] [address] Care Team Providers Name Role Phone Unknown, Provider Primary Care Provider Encounter Details Date Type Department Care Team Description 03/21/2014 Results Only [facility]- PRISM Bia Hooper MD [phone] [place] [address] Social History Tobacco Use Types Packs/Day Years [...] (03/21/2014 8:22 EST) Pathology SURGICAL PATHOLOGY REPORT [facility] MED[facility] Report: Reports generated via electronic interface conta in original data; CENTER LABORATORY however they are lacking the format of the original re port. SERVICES Caution should be taken when reading/interpreting unfo rmatted reports. Name: ? ROSIBEL BOWDEN ? Accession #: ? [id number] ? : ? 1970 (Age: 43) ??F [...] Organization Address City/State/ZIP Code Phon e Number [facility] [address] [place] [address] SERVICES PAP TEST- RESULT ONLY (03/21/2014 0:00 EST) Pathology Report: CYTOPATHOLOGY REPORT [facility] Reports generated via electronic interface contain catracho ginal data; SERVICES however they are lacking the format of the original re port. Caution should be taken when reading/interpreting unfo rmatted reports. Name: ? ROSIBEL BOWDEN ? Accession #: ? [id number] ? : ? 1970 (Age: 43) ??F [...] types 16,18,31,3 3,35, 39,45,51,52,56,58,59,66, and 68 by riverine assault craft crewman media [employer]. Comments Document reviewed and electronically signed by: ? System Interface ? Report date: 04/06/2014 By the signature above, the attending physician certif ies that he/she has personally conducted a gross and/or microscopic examin ation of the described specimens and rendered or confirmed the above diagnosi s. End of Report Specimen Performing Organization Address City/State/[facility] [[email or web address]] Code Phon e Number [facility] [address] [place] [address] SERVICES documented in this encounter Visit Diagnoses Not on filedocumented in this encounter Care Teams Melting Furnace Skimmer Relationship Specialty Start Date End Date Unknown, Provider, PCP - General 12/05/11 03/22/14 documented as of this encounter
--- OUTSIDE RECORDS SUMMARY | 2021-08-27 15:48 | XMS_ITS | Encounter Summary ---
:1970 Author Organization [facility] Address [address] [place] [address] Care Team Providers Name Role Phone Unavailable Primary Care Provider Unavailable Encounter Details Date Type Department Care Team Description 10/25/2003 Results Only [facility] - Jaycee Zarate FNP conversion [address] [place] [address] [place] [address] (Wo rk) Social History Tobacco Use Types [...] ? ROSIBEL BOWDEN ? Accession #: ? [id number] : ? 1970 (Age: 33) ??F ?Collect Date: ? 08/2003 Location: ? [facility] ? Receive Date : ? 10/27/2003 Provider: ?JAYCEE CRONIN IMAGING ASSISTANT Copy to: ? Specimen/Source: ?ThinPrep Pap Test, [...] Organization Address City/State/ZIP Code Phon e Number [facility] [address] [place] [address] SERVICES [facility] [address] [place] [address] documented in this encounter Visit Diagnoses Not on filedocumented in this encounter
--- OUTSIDE RECORDS SUMMARY | 2021-08-27 15:48 | XMS_ITS | Encounter Summary ---
:1970 Author Organization [facility] Address [address] [place] [address] Care Team Providers Name Role Phone Unavailable Primary Care Provider Unavailable Encounter Details Date Type Department Care Team Description 05/11/2008 Before PRISM [facility] - Tray Suárez MD Converted Visit [facility] MEDICAL ([place]) [address] [place] [address] [address] [place] [address] (Wo rk) Social History Tobacco Use Types [...] City/State/ZIP Code Phon e Number [facility] [address] [place] [address] SERVICES [facility] [address] [place] [address] CYTOPATHOLOGY (05/11/2008 0:00 EDT) Pathology Report: CYTOPATHOLOGY REPORT ? TREVINO ALL EN ? LAB Reports generated via [employer] interface contain original data; ? however they are lacking the format of the original report. ? Caution should be taken when reading/interpreting unformatted reports. ? Name: ? ROSIBEL BOWDEN ? Accession #: ? [id number] ? : ? 1970 (Age: 37) ??F [...] City/State/ZIP Code Phon e Number [facility] LAB[facility] [address] [place] [address] SERVICES [facility] [address] [place] [address] documented in this encounter Visit Diagnoses Not on filedocumented in this encounter
--- OUTSIDE RECORDS SUMMARY | 2021-08-27 15:48 | XMS_ITS | Encounter Summary ---
:1970 Author Organization [facility] Address [address] [place] [address] Care Team Providers Name Role Phone Maria Del Carmen Nogueira PA-C Primary Care Provider [phone] Encounter Details Date Type Department Care Team Description 12/20/2014 Results Only [facility]- PRISM Jacob Burger, JUNIE A JULY [place], [place] [phone] (Wo rk) Social History Tobacco Use Types [...] Sig nature Result METHICILLIN RESISTANT STAPHYLOCOCCUS AUREUS [facility] Organism identification performed by client. LABORATORY SERVICES [...] Organization Address City/State/ZIP Code Phon e Number [facility]OR[facility]ORY [address] [place] [address] SERVICES documented in this encounter Visit Diagnoses Not on filedocumented in this encounter Care Teams Hydrography Teacher Relationship Specialty Start Date End Date Maria Del Carmen Nogueira PA-C PCP - General 03/23/14 documented as of this encounter
--- OUTSIDE RECORDS SUMMARY | 2021-08-27 15:48 | XMS_ITS | Encounter Summary ---
:1970 Author Organization [facility] Address [address] [place] [address] Care Team Providers Name Role Phone Maria Del Carmen Nogueira PA-C Primary Care Provider [phone] Encounter Details Date Type Department Care Team Description 08/11/2021 Lab Requisition [facility] Outr Resulting Lab, Pathology & Laboratory Provider [facility] [address] [place] [id number] Social History Tobacco Use Types Packs/Day Years Used Date Never Assessed Sex Assigned at Date Recorded Not on file documented as of this encounter Plan of Treatment Not on filedocumented as of this encounter Procedures Procedure Name Priority Date/Time Associated Comments Diagnosis LEGIONELLA ANTIGEN Routine 08/10/2021 22:00 Resul ts for this DETECTION, URINE EDT procedure a re in the results section. documented in this encounter Results LEGIONELLA ANTIGEN DETECTION, URINE (08/10/2021 22:00 EDT) Pathologist Sig nature Legionella Antigen Negative Negative [facility] Detection LABORATORY SERVICES Specimen Urine Performing Organization Address City/State/ZIP Code Phon e Number [facility] [address] [place] [address] SERVICES documented in this encounter Visit Diagnoses Not on filedocumented in this encounter Care Teams Business Affairs Manager Relationship Specialty Start Date End Date Maria Del Carmen Nogueira PA-C PCP - General 03/23/14 documented as of this encounter
--- OUTSIDE RECORDS SUMMARY | 2021-08-27 15:48 | XMS_ITS | Encounter Summary ---
:1970 Author Organization [facility] Address [address] [place] [address] Care Team Providers Name Role Phone Unavailable Primary Care Provider Unavailable Encounter Details Date Type Department Care Team Description 12/25/2004 Results Only [facility] - Jaycee Zarate FNP conversion [address] [place] [address] [place] [address] (Wo rk) Social History Tobacco Use Types [...] ? ROSIBEL BOWDEN ? Accession #: ? [id number] : ? 1970 (Age: 34) ??F ?Collect Date: ? 1109/2004 Location: ? [facility] ? Receive Date : ? 12/27/2004 Provider: ?JAYCEE CRONIN ONCOLOGY SPECIALIST Copy to: ? Specimen/Source: ? ThinPrep Pap Test, Cervix/Endocervix, processed on [employer] ThinPrep Imaging System, with manual evaluation Last [...] Organization Address City/State/ZIP Code Phon e Number [facility] [address] [place] [address] SERVICES [facility] [address] [place] [address] documented in this encounter Visit Diagnoses Not on filedocumented in this encounter
[2021-08-27 20:17] LABS: Anion Gap 6.9 mmol/L (3-11); BUN 27 mg/dL (7-18); CO2 28.1 mmol/L (21.0-32.0); Calcium 9.8 mg/dL (8.5-10.1); Chloride 101 mmol/L (98-107); Estimated GFR 58.22 (mL/min/1.73m2); Glucose 304 mg/dL (74-106); NT-proBNP 152 pg/mL (<300); Sodium 136 mmol/L (136-145)
[2021-08-27 20:24] LABS: Bacteria Negative HPF (Negative); C & S Indicated? No/Sq. Contamination; Crystals Negative HPF (Negative); Epithelial Cells Many HPF (Negative); Mucus Negative (Negative)
== END 2021-08-27 15:44 | disposition home or self-care (01) ==
LOC: NCHCN 15:43
PROVIDERS: PCP Physician Assistant Medical; Visit Provider Nurse Practitioner Family
DX: I50.9 Heart failure, unspecified (principal); E11.9 Type 2 diabetes mellitus without complications; R31.9 Hematuria, unspecified
CPT/HCPCS: 80048; 81015; 83880

== ENCOUNTER → 2021-10-26 00:36 | Outpatient (CLI) | payer MEDICARE, MEDICAID, SELFPAY ==
--- OUTSIDE RECORDS SUMMARY | 2021-10-26 00:50 | XMS_ITS | Encounter Summary ---
:1970 Author Organization [facility] Address [address] [place] [address] Care Team Providers Name Role Phone Maria Del Carmen Nogueira Primary Care Provider Reason for Referral Consultation (Routine) - Closed Specialty Diagnoses / Procedures Referred By Contact Refer red To Contact Cardiology Diagnoses Congestive heart failure, unspecified HF chronicity, unspecified heart failure type [facility] inpt admission for respiratory distress-acute exacerbation of CHF, acute on chronic respiratory failure w/ hypoxia & hypercapnia. Malissa Alvarado, HUNTER [facility] Cardiology 4a (HF defers to [facility]) [address] Procedures clarify if pt going to [facility] or [facility]? [place], [place] [id number] Referral ID Status Reason Start Date Expiration Date Visits V isits Requested Authorized [id number] Closed Consult, Test 09/05/2021 09/05/2022 12 12 & Treat PCP Updated and/or Approved Encounter Details Date Type Department Care Team Description 09/05/2021 Transcribe Orders eDH Incoming Malissa Alvarado, Congestiv e heart Referrals PRACTICE PROFESSIONAL failure, unspecified [phone] [address] HF chronicity , AJ 1 unspecified heart [place], [place] [address] Social History Tobacco Use Types Packs/Day Years [...] as of this encounter Plan of Treatment Upcoming Encounters Date Type Specialty Care Team Description 12/17/2021 Office Visit Cardiology Miguel Glass MD [facility] [address] [place], [place] [address] (Wo rk) Scheduled Referrals Name Type Priority Associated Diagnoses Order S chedule Referral to Outpatient Referral Routine Congestive heart Orde red: Cardiology failure, unspecified 022 HF chronicity, unspecified heart failure type documented as of this encounter Visit Diagnoses Diagnosis Congestive heart failure, unspecified HF chronicity, unspecified heart failure type documented in this encounter Care Teams Industrial Waste Treatment Technician Relationship Specialty Start Date End Date Maria Del Carmen Nogueira PA PCP - General Family Medicine 09/05/21 [address] [place], [place] [address] documented as of this encounter
--- OUTSIDE RECORDS SUMMARY | 2021-10-26 00:50 | XMS_ITS | Clinical Summary ---
:1970 Author Organization [facility] [address] Care Team Providers Name Role Phone Maria Del Carmen Nogueira Primary Care Provider Allergies Active Allergy Reactions Severity Noted Date [...] kidney injury 11/15/2018 Bilateral knee pain 09/15/2017 Encounters Date Type Specialty Care Team Description 09/05/2021 Transcribe Orders Primary Care Malissa Alvarado, WEB CONTENT DEVELOPER Erik estive heart failure, unspecified HF chronicity, uns pecified heart failure t ype from Last 3 Months Family History Medical History Relation Comments Diabetes [...] 11/16/2018 1:45 AM EDT Plan of Treatment Upcoming Encounters Date Type Specialty Care Team Description 12/17/2021 Office Visit Cardiology Miguel [facility] MD [facility] [address] [place], [place] [address] (Wo rk) Health Maintenance Due Date Last Done Comments [...] 11/17/2018, Additional history exists Influenza (Flu) vaccine ( - 10/18/2021 Influenza standard series) Procedures Procedure Name Priority Date/Time Associated Comments Diagnosis LAB SCAN 08/27/2021 12:00 AM Results for this EDT procedure are i n the results section. ECG SCAN 08/18/2021 12:00 AM Results for this EDT procedure are i n the results section. LAB SCAN 08/18/2021 12:00 AM Results for this EDT procedure are i n the results section. DIAGNOSTIC RADIOLOGY 08/18/2021 12:00 AM Results for this SCAN EDT procedure are i n the results section. from Last 3 Months Results SCAN DOC: LAB (08/27/2021 12:00 AM EDT)Only the most recent of2 resultswithin the time period is included. Narrative This result has an attachment that is no t available. Unknown MEDIA MGR SCAN EXT ORDR/RSLT SCAN DOC: DIAGNOSTIC RADIOLOGY (08/18/2021 12:00 AM EDT) Narrative This result has an attachment that is no t available. Unknown MEDIA MGR SCAN EXT ORDR/RSLT SCAN DOC: ECG (08/18/2021 12:00 AM EDT) Narrative This result has an attachment that is no t available. Unknown MEDIA MGR SCAN EXT ORDR/RSLT from Last 3 Months Insurance Payer Benefit Plan / Subscriber ID Effective Dates Phone Addre ss Type Group MEDICARE MEDICARE PART [id number] 2017-Prese [id number] [place] [address] [place] 4 2019-Prese [phone] [address] [place] [address] Advance Directives Latest Code Status on File Code Status Date Activated Date Inactivated Comments Full Code 11/15/2018 11:54 PM 11/19/2018 1:26 PM Does patient have capacity to make decision: No Code Status decision being made per: Attending of Record Care Teams Performance Tester Relationship Specialty Start Date End Date Maria Del Carmen Nogueira PA PCP - General Family Medicine 09/05/21 [address] [place] [address]
--- OUTSIDE RECORDS SUMMARY | 2021-10-26 00:50 | XMS_ITS | Encounter Summary ---
:1970 Author Organization [facility] [place] [address] Care Team Providers Name Role Phone Maria Del Carmen Nogueira Primary Care Provider Encounter Details Date Type Department Care Team Description 11/21/2018 Orders Only Hospitalist at [facility] Lance Lea, [facility] [place] [address] [facility] [phone] GENERAL INTERNAL MEDICINE [place], [place] [address] (Wo rk) Social History Tobacco Use Types [...] 12/17/2021 Office Visit Cardiology Miguel Glass MD [facility] er [place], [place] [address] (Wo rk) documented as of this encounter Visit Diagnoses Not on filedocumented in this encounter Care Teams Route Sales Delivery Drivers Supervisor Relationship Specialty Start Date End Date Maria Del Carmen Nogueira PA PCP - General 01/27/14 10/05/19 [address] [place] [address] documented as of this encounter
--- OUTSIDE RECORDS SUMMARY | 2021-10-26 00:50 | XMS_ITS | Encounter Summary ---
:1970 Author Organization [facility] [place] [address] Care Team Providers Name Role Phone Maria Del Carmen Nogueira Primary Care Provider Encounter Details Date Type Department Care Team Description 03/03/2019 Hospital Encounter Mobile Sarah Gonzalezpolly brown heart Echocardiography MD Ghassan failure, unspecified [facility] [address] HOSPTIAL HF chronicity, [place], [place] [address] failure type [id number] Social History Tobacco Use [...] 12/17/2021 Office Visit Cardiology Miguel Glass MD [facility] [address] [place], [place] [address] (Wo rk) documented as of this encounter Procedures Procedure Name Priority Date/Time Associated Comments Diagnosis ECHOCARDIOGRAM COMPLETE Routine 03/03/2019 11:02 Congestive he art Results for this AM EST failure, procedure are i n unspecified HF the results chronicity, section. unspecified heart failure type documented in this encounter Results ECHOCARDIOGRAM COMPLETE (03/03/2019 11:02 AM EST) P athologist Signature EF 55 HEARTLAB SYSTEM Anatomical Region Laterality Modality Other Specimen (Source) Anatomical Location Collection Method / Collectio n Time Received Time / Laterality Volume 03/03/2019 Narrative 03/03/2019 11:43 AM EST Procedure: ?Transthoracic Echocardiogram Patient: ?DENNISE ROSIBEL A. . ?? (Age): 1970(48y) Med Rec#: ? [id number] ?Sex: ?F ? Site Loc: ? [facility] ??H t / Wt: ??157.48(cm)/115. Pt. Loc: ?Adult Floor ? BSA: ?2.12 Study Date: ?? 03/03/2019 ?Pt. Type: Inpatient Tape: ? Referring: MAURA Referring: KITARH (Diag Imaging) Referring: [facility](Med Rec) Referring: [facility](Med/Surg) Reading: Stephen Blanton ??([id number]) Gas Engine Operator: EDWARD Gas Engine Operator: EDWARD Diagnosis: *Heart failure, unspecified (I50.9) BP: ? [...] Vmax ?0.58 ? m/sec ? MV deceleration [id number] ? m sec ? MV A-wave Vmax [...] ? Mid-Inferior ?Normal ? Mid-Inferoseptal ?Normal ? [place]-Septal ? Normal ? [place]-Anterior ? Normal ? [place]-Lateral ?Normal ? [place]-Inferior ? Normal ? [place]-Tip ?Normal ? This report has been electronically sign ed by: _ Stephne Blanton MD ? 03/03/2019 11:39 :02 Images reviewed and interpretation kit carmichael [facility] Cardiac Ultrasound Laboratory Procedure Note Stephen Blanton MD - 03/03/2019Formattin g of this note might be different from the original. Procedure: Transthoracic Echocardiogram Patient: DENNISE Renteria (Age): 1970(48y) [facility] Rec#: [id number] Sex: F Site Loc: [facility] Ht / Wt: 157.48(cm)/115. Pt. Loc: Adult Floor BSA: 2.12 Study Date: 03/03/2019 Pt. Type: Inpatie nt Tape: Referring: STRANATHANCHRIS Referring: NV (Diag Imaging) Referring: NV(Med Rec) Referring: NV(Med/Surg) Reading: Stephen Blanton ([id number]) Gas Engine Operator: EDWARD Gas Engine Operator: EDWARD Diagnosis: *Heart failure, unspecified (I50.9) BP: [...] MV E-wave Vmax 0.58 m/sec MV deceleration [id number] msec MV A-wave Vmax 0.61 m/sec MV [...] Normal Mid-Posterolateral Normal Mid-Inferior Normal Mid-Inferoseptal Normal [place]-Septal Normal [place]-Anterior Normal [place]-Lateral Normal [place]-Inferior Normal [place]-Tip Normal This report has been electronically sign ed by: _ Stephen Blanton MD 03/03/2019 11:39:02 Images reviewed and interpretation verif ied [facility] Cardiac Ultrasound Laboratory Ghassan Gonzalez MD ECHO ORDERABLES documented in this encounter Visit Diagnoses Diagnosis Congestive heart failure, unspecified HF chronicity, unspecified heart failure type documented in this encounter Care Teams Electric Meter Repairer Helper Relationship Specialty Start Date End Date Maria Del Carmen Nogueira PA PCP - General 01/27/14 10/05/19 [address] [place] [address] documented as of this encounter
--- OUTSIDE RECORDS SUMMARY | 2021-10-26 00:50 | XMS_ITS | Encounter Summary ---
:1970 Author Organization [facility] [place] [address] Care Team Providers Name Role Phone Maria Del Carmen Nogueira Primary Care Provider Encounter Details Date Type Department Care Team Description 11/21/2018 Telephone Hospitalist [place] [facility] [place] Lea MD [facility] [place] [address] GENERAL INTERNAL [phone] [place] [address] (Wo rk) Social History Tobacco Use Types [...] for doxycyline from her last discharge from [facility] [place]/[facility]/[place]. Yana called Stephen in [place] and confirmed it was never received. According to the documentation, doxycyline was ordered prior to discharge and should be continued for panniculitis and UTI in addition to keflex (which she is taking). Ordered doxycyline 100mg po bid to be completed on 11/24/2018 per the last discharge summary. Lance Lea MD General Internal Medicine documented in this encounter Plan of Treatment Upcoming Encounters Date Type Specialty Care Team Description 12/17/2021 Office Visit Cardiology Miguel Glass MD [facility] [address] [place] [address] (Wo rk) documented as of this encounter Visit Diagnoses Not on filedocumented in this encounter Care Teams Lay Out Worker Relationship Specialty Start Date End Date Maria Del Carmen Nogueira PA PCP - General 01/27/14 10/05/19 [address] [place] [address] documented as of this encounter
--- OUTSIDE RECORDS SUMMARY | 2021-10-26 00:51 | XMS_ITS | Encounter Summary ---
:1970 Author Organization [facility] Address [address] [place] [address] Care Team Providers Name Role Phone Maria Del Carmen Nogueira Primary Care Provider Encounter Details Date Type Department Care Team Description 11/15/2018 Ancillary Procedure Radiology Library at Cathi Nogueira [facility] [address] [place] [address] [place] [address] [phone] Social History Tobacco Use Types Packs/Day Years [...] Visit Cardiology Miguel Glass MD [facility] [address] [place], [place] [address] (Wo rk) documented as of [...] for storage only. Maria Del Carmen [place] IMThaddeus FILM LIBRARY ORDERABLES Performing Organization Address City/State/ZIP Code Phon e Number [place], [place] documented in this encounter Visit Diagnoses Not on filedocumented in this encounter Care Teams Scroll Machine Operator Relationship Specialty Start Date End Date Maria Del Carmen Nogueira PA PCP - General 01/27/14 10/05/19 [address] [place] [address] documented as of this encounter
--- OUTSIDE RECORDS SUMMARY | 2021-10-26 00:51 | XMS_ITS | Encounter Summary ---
:1970 Author Organization [place] [address] Care Team Providers Name Role Phone Maria Del Carmen Nogueira Primary Care Provider Reason for Visit Auth/Cert Specialty Diagnoses / Procedures Referred By Contact Refer red To Contact Diagnoses Acute renal failure Acute renal injury/ hypotension Referral ID Status Reason Start Date Expiration Date Visits Requ ested Visits Authorized [id number] 1 1 Encounter Details Date Type Department Care Team Description 11/16/2018 - Hospital Encounter 1 [facility] [address], Mylene Benton MD [facility] [place] [address] Acute kidney injury; 11/19/2018 [facility] Olvin Doran MD [address] [place] [address] [place] [address] [facility] [place] [address] Morbid obesity; [facility] HELEN (obst ructive sleep apnea) [place] [phone] Social History Tobacco Use Types Packs/Day Years [...] Rosibel Bowden Patient Age: 48 y.o. Language: [place] Islander Race: White Ethnicity: Not nor Admit date: [...] prevent polypharmacy. 3. Recommend repeat CBC and CUSTOMER PROFESSIONAL on follow up with PCP. Creatinine on [...] please contact your inpatient physician through the [facility] Hand Candy Dipper . Issues after hours and on weekends [...] w/o consolidation. We later received notification from [facility] that 3/3 blood cultures grew E.coli. Blood [...] MD Your Primary Care Provider: VERNA Irving [phone] For questions regarding this document or issues relating to this hospitalization on the Medical Service, please contact your inpatient physician through the [facility]andy Dipper . Issues after hours and on weekends will be handled by the Hospitalist staff on-call. General Instructions None Future Appointments and Orders Future Orders Complete By Expires Referral to Home Health - at DISCHARGE [[id number] CPT(R)] As directed Process Instructions: Scheduling Instructions: Comments: DOCUMENTATION FOR VNA SERVICES (INCLUDING THOSE PATIENTS WITH MEDICARE COVERAGE REQUIRING HOME VNA SERVICES AND/OR HOSPICE SERVICES) PATIENT'S LOCATION: [address] [facility] [id number] [phone] (home) Cell: Telephone Information: Snipper's Name: self In discussion with the attending physician, it is certified that this patient is under their care and that they, or a Nurse Practitioner,Clinical Nurse specialist or Physician Mail List Librarian who is working directly with them, had [...] Please contact the wound care team at [phone] with skin and wound care concerns or questions. ?? Please assess for additional home care services (PT/OT/RN HOUSE SUPERVISOR/LEADERSHIP PROGRAM INTERN) with goal of maximizing patient's functional abilities HOME HEALTH CARE AGENCY: [facility] PHONE: [phone] FAX: [phone] Start of care: 24-48 hours post-discharge FOR [...] Irving [address] / [place] [address] All A agencies which cover the area of patient's residence have been reviewed, either verbally or in writing, and patient/family have chosen the home health care agency noted Questions: Agency name and contact information: [facility] Patient location post discharge: home What services are requested: Registered Nurse Start date: Responsible MD post discharge contact info: PCP VERNA Nogueira Discharge References/Attachments None Hoda Casas MD Kadie Torres - 11/19/2018 8:44 AM EDT Images from the original note were not included. Discharge Summary Patient Name: Rosibel Bowden Patient Age: 48 y.o. Language: [place] Race: White Ethnicity: Not nor Admit date: [...] please contact your inpatient physician through the [facility] Hand Candy Dipper . Issues after hours and on weekends [...] disorder on ariprazole and COPDwho presented to [facility] with left flank pain, [...] back pain increased and she presented to [facility] ER. ?? On arrival, [...] panniculitis - improving - Received notification from [facility] that 3/3 blood cultures grew E.coli. Blood [...] Latest Ref Range: Clear Cloudy (A) Spec Brandon UA Latest Ref Range: 1.002 - 1.030 [...] Please contact TANIA MCFARLAND RN on pager [phone] or the wound care team at [phone] or pager [phone] skin and wound care concerns or questions. [...] is receiving assistance for meal choices from certified dietary manager. 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 Patient has [...] consulted in the interim. CORIE XiaoR Pager# [phone] ??2:55 PM Pending Studies and Lab Data: [...] MD Your Primary Care Provider: VERNA Irving [phone] For questions regarding this document or issues relating to this hospitalization on the Medical Service, please contact your inpatient physician through the [facility] Hand Candy Dipper . Issues after hours and on weekends [...] MD Your Primary Care Provider: VERNA Irving [phone] For questions regarding this document or issues relating to this hospitalization on the Medical Service, please contact your inpatient physician through the [facility] Hand Candy Dipper . Issues after hours and on weekends [...] spent >30 minutes (Day of Discharge Code 10298) involved in the final examination of the [...] is receiving assistance for meal choices from certified dietary manager. 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 Patient has [...] consulted in the interim. CORIE XiaoR Pager# [phone] Hoda Casas MD - 11/18/2018 9:05 AM [...] pain INTERVAL HISTORY/OVERNIGHT EVENTS: - transferred to [facility] - feeling better today - sitting up in the chair - blood culture from [facility] grew E coli 3 bottles [...] oz) GENERAL: awake, alert, NAD HEENT: [place] conjunctiva, anicteric sclerae, oropharynx clear HEART: regular [...] function improves Primary Care Provider: VERNA Irving [phone] Inpatient Certification Attestation: IPI Certification I certify that I am a D-H credentialed attending provider with admitting privileges and that the patient meets or has met medical necessity to require an inpatient IPI level of care meeting a minimum of two midnights or is on the [facility] inpatient only procedure list (status C) due to: acute kidney injury necessitating close monitoring of fluid balance such as intravenous fluids and/or titration of medication to achieve optimal effect and minimize the chance of immediate or severe side effects; sepsis on IV antibiotics Hoda Casas MD Team Pager(MD Coverage 09/09): #[phone] 11/18/2018 Cammie Gallego RN - 11/17/2018 7:22 PM EDT 1921 patient transported, in stable condition, via bed, to new room on Med-Surg--accompanied by transporters. Patient chart, medications, medical equipment, et personal belongings sent with the patient. Patient to notify family of transfer Hoda Casas MD - 11/17/2018 10:49 AM EDT [facility] Medicine Attending Inpatient Daily Progress [...] oz) GENERAL: awake, alert, NAD HEENT: [place] conjunctiva, anicteric sclerae, oropharynx clear NECK: Supple, [...] once kidney function improves Primary Care Provider: VRENA Irving [phone] Inpatient Certification Attestation: IPI Certification I certify that I am a D-H credentialed attending provider with admitting privileges and that the patient meets or has met medical necessity to require an inpatient IPI level of care meeting a minimum of two midnights or is on the [facility] inpatient only procedure list (status C) due to: acute kidney injury necessitating close monitoring of fluid balance such as intravenous fluids and/or titration of medication to achieve optimal effect and minimize the chance of immediate or severe side effects; sepsis on IV antibiotics Hoda Casas MD Team Pager(MD Coverage 09/09): #[phone] 11/18/2018 andace Dhillon RN - 11/17/2018 10:43 AM EDT Office of Care Management Progress Note Rosibel Bowden has been provided a list of Home Health Agencies/DME vendors which serve their preferred geographic area. A letter describing our affiliations was reviewed with them and they were educated about their right to choose where referrals are placed. Patient requests referral to: [facility] [employer] PHONE: [phone] FAX: [phone] left at [facility] (ph: [phone]) for PCP VERNA Nogueira transition care RN regarding VNA referral post-discharge. Expected date of discharge: 2-3 days v TBD Transportation: Private vehicle Oxygen vendor: [facility] Referral routed to the [facility] for matching with agency/vendor and to provide any required information. Alisha Crain RNCM P. [phone] Cammie Peter RN - 11/17/2018 2:50 AM [...] pain ID: 48 y.o. Female presents to [facility] with Urosepsis History of Present Illness: [facility] Rosibel Bowden is a 48 yo female [...] file Gets together: Not on file Attends shinto service: Not on file Active member of [...] m?? Lactate, whole blood, send to lab ([facility]) Result Value Ref Range Lactate WB 1.7 [...] mcL Appearance UA Cloudy (A) Clear Spec Brandon UA 1.017 1.002 - 1.030 Color UA [...] Physician. Kandis Tee MD 11/16/2018 Osvaldo Beebe H - 11/16/2018 2:07 AM EDT Critical Care [...] file Gets together: Not on file Attends shinto service: Not on file Active member of [...] MAGNESIUM 0.73 PHOS 2.7 LFTs: Recent Labs 11/16/18229 AST 48* ALT 24 ALKPHOS 105 BILITOT 0.6 Troponin: No results for input(s): TROPONINT, CK in the last 168 hours. ABG: No results for input(s): PHART, NPG4FWJ, PO2ART, JBD3OMF in the last 168 hours. Coags: Recent Labs 11/16/18229 PT 13.4* PTT 29 INR 1.2 Micro: [...] Not in acute pain, will reassess in early breastfeeding care specialist - AAO X 4 # Pulmonary: [...] 11/16/2018 Internal Medicine, PGY 3 Team Pager: [phone] Associated attestation - Olvin Doran MD - [...] practice nurse Plan of Care - Dionte Rice, RN - 11/18/2018 4:13 PM EDT Problem: [...] and ADLs]: independent Surveillance [continuous indirect monitoring]: becky Glynn rounding Goal: Fall Prevention-Safe Patient Handling Outcome: [...] encouraged -- Med Student Progress Note - Ilana Torresgerri Willis - 11/18/2018 1:31 PM EDT Hospital Medicine [...] disorder on ariprazole and COPDwho presented to [facility] with left flank pain, [...] nausea or diarrhea. Received a call from [facility], 3/ blood cultures grew E.coli. Blood cultures here at [facility] still negative. ROS: General: [...] Latest Ref Range: Clear Cloudy (A) Spec Brandon UA Latest Ref Range: 1.002 - 1.030 [...] panniculitis - improving - Received notification from [facility] that 3/3 blood cultures grew E.coli. Blood [...] DVT PPX: Heparin Team Pager(MD Coverage 09/09): #[phone] PCP: VERNA Irving [phone] Kadie Torres 11/18/2018 Plan of Care - [...] Torres Alba - 11/17/2018 8:08 AM EDT Hospital Medicine Daily Progress Note Admit [...] disorder on ariprazole and COPDwho presented to [facility] with left flank pain, [...] back pain increased and she presented to [facility] ER. On arrival, she [...] Latest Ref Range: Clear Cloudy (A) Spec Brandon UA Latest Ref Range: 1.002 - 1.030 [...] this is difficult for her to see. terminal worker skin redness is concerning for underlying fungal [...] DVT PPX: Heparin Team Pager( Coverage 09/09): #[phone] PCP: VERNA Irving [phone] Kadie Torres 11/17/2018 Initial Assessments - Candace [...] Scott be her surrogate decision maker per [place] surrogate decision making law. Any patient receiving care at [facility] must abide by [place] law. The hierarchy for surrogate decision making [...] (i) The agent with financial power of bankruptcy attorney or a conservator appointed in accordance [...] Scherer Social & Family Supports/Community Resources: family/friends/uses [facility] for oxygen needs Behavioral Health History: chart review mentions mood disorder Substance Use/Abuse: current everyday smoker (1 PPD) Occasional alcohol use/no abuse No mention of illicit drug use/abuse Other Pertinent/Service Specific Information: to be assessed Health/Prescription Coverage: Primary Insurance: MEDICARE Secondary Insurance: MEDICAID [place] Prescription Coverage: yes Preferred Pharmacy: [place], [place] Other: To be assessed Primary Care Provider: VERNA Irving [phone] Patient/Caregiver Goals of Treatment: to return home [...] airway disease dx) accepted in transfer from [facility] for further management of sepsis. She [...] of care planning. Candace Crain RN Pager: [phone] Consult Note - Tania Mcfarland RN - 11/16/2018 12:39 PM EDT Images from the original note were not included. Certified Wound Care Nurse Note Situation: Asked to see Rosibelkevin Bowden by Cami Felix RN for Left side [...] with: /RADHA/PA: Dr. Tee RN: Deo Arnold Please contact TANIA MCFARLAND RN on pager [phone] or the wound care team at [phone] or pager [phone] skin and wound care concerns or questions. Electronically Signed By: TANIA MCFARLAND RN Consult Note - Juan Zapata [facility] - 11/16/2018 9:54 AM EDT Clinical Pharmacist Note-Vanc Rosibel Swainon [id number] 1970 Rosibelranjeet Bowden is a 48 y.o. [...] have. Alternately, during off-hours you may call [phone] to contact a pharmacist. JUAN ZAPATA RPH [...] OUTCOME EVALUATION: Goal: Fall Prevention-Safe Patient Handling 11/16/1839911/16/18 0544 Amin Fall Risk History of Falling [...] 2 people -- Goal: Infection Control 11/16/18 02011/16/18399 Safety Interventions Isolation Precautions -- standard precautions maintained Infection Prevention environmental surveillance performed;personal protective equipment utilized;rest/sleep promoted;single patient room provided;visitors restricted/screened -- Coping Strategies Supportive Measures active listening utilized;verbalization of feelings encouraged -- documented in this encounter Plan of Treatment Upcoming Encounters Date Type Specialty Care Team Description 12/17/2021 Office Visit Cardiology Miguel Glass MD [facility] [address] [place], [place] [address] (Wo rk) documented as of this [...] - 199 [facility] mg/dL [facility] Comment: Diabetes: >=200 mg/dL plus symp toms BUN 29 (H) 8 - 18 mg/dL [facility] Creatinine 1.48 (H) 0.70 - 1.20 mg/dL [facility] Sodium 139 135 - 145 mmol/L [facility] Potassium 3.5 3.5 - 5.0 mmol/L [facility] Comment: Please note: ??Patients with WBC >100,00 0 may have falsely elevated Potassium levels. ??For accurate Potassium quantif ication in these patients send serum separator tube (gold top) for subsequent determinations. ??Contact the Clinical Chemistry Laboratory if there are any qu estions. Chloride 100 98 - 107 mmol/L [facility] CO2 26 22 - 31 mmol/L [facility] Anion Gap 13 5 - 15 mmol/L [facility] Calcium 9.7 8.5 - 10.5 mg/dL [facility] Estimated GFR 41 (L) >=60 mL/min/1.73 m?? [facility] Comment: The eGFR was calculated using the CKD-EP I equation. As with all creatinine based estimates of kidney function, eGFR values calculated with the CKD-EPI equation are not accurate in patients wi th acute kidney failure, extremes of body mass or the acutely ill. http://Liftopia/[facility] eGFR 48 (L) >=60 mL/min/1.73 m?? [facility] Comment: The eGFR was calculated using the CKD-EP I equation. As with all creatinine based estimates of kidney function, eGFR values calculated with the CKD-EPI equation are not accurate in patients wi th acute kidney failure, extremes of body mass or the acutely ill. http://Liftopia/[facility]kf Specimen Anatomical Collection Method Collection Time Receive d Time (Source) Location / / Volume Laterality Blood specimen 11/19/2018 8:45 AM 019 8:58 (specimen) EDT AM EDT Resulting Agency Comment Spec In Lab Hoda Casas MD CHEMISTRY ORDERABLES Performing Organization Address City/State/ZIP Code Phon e Number [address] POCT Glucose (11/19/2018 6:49 AM EDT) P athologist Signature POC Glucose 133 65 - 199 [facility] mg/dL [facility] Comment: Supplemental ranges: <140 mg/dL before meals <180 mg/dL all other times of the day Specimen Anatomical Collection Method Collection Time Receive d Time (Source) Location / / Volume Laterality Blood specimen 11/19/2018 6:49 AM 019 6:49 (specimen) EDT AM EDT Hoda Casas MD POINT OF CARE TEST ORDERABLE S Performing Organization Address City/State/[place] [address] Scan, Peripheral Blood (11/19/2018 5:13 AM EDT) Patholo gist Method Time Signature Plat Estimate Normal [facility] RBC Morphology Abnormal [facility] Macrocytes 1-5 /HPF [facility] Specimen Anatomical Collection Method Collection Time Receive d Time (Source) Location / / Volume Laterality Blood specimen 11/19/2018 5:13 AM 019 5:54 (specimen) EDT AM EDT Resulting Agency Comment Spec In Lab Hoda Casas MD HEMATOLOGY ORDERABLES Performing Organization Address City/State/[place] [address] (ABNORMAL) Differential, Automated (11/19/2018 5:13 AM EDT) P athologist Signature Neutrophils % 52.0 % [facility] Neutr Abs (ANC) 4.49 1.70 - [facility] 6.10 [facility] x10(3)/[facility] LABORATORY Lymphocytes % 25.6 % [facility] Lymphocytes Abs 2.2 0.9 - 3.2 [facility] x10(3)/[facility] LABORATORY Monocytes % 9.4 % [facility] Monocyte Abs 0.8 0.3 - 0.9 [facility] x10(3)/[facility] LABORATORY Eosinophils % 0.0 % [facility] Eosinophils Abs 0.0 0.0 - 0.4 [facility] x10(3)/[facility] LABORATORY Basophils % 0.2 % [facility] Basophils Abs 0.0 0.0 - 0.1 [facility] x10(3)[facility] LABORATORY Immature Gran % 12.80 % [facility] Comment: Immature granulocytes(IG's)percentage an d absolute count will include metamyelocytes, myelocytes, and promyelo cytes. Blood smears from CBCs yielding IG's will be scanned manually for concor dance. If this scan disagrees with the automated IG or if promyelocytes are not ed, a manual differential will be performed. Ree Gran Abs 1.11 (H) 0.00 - 0.04 x10(3)/[facility] LABORATORY Specimen Anatomical Collection Method Collection Time Receive d Time (Source) Location / / Volume Laterality Blood specimen 11/19/2018 5:13 AM 019 5:54 (specimen) EDT AM EDT Resulting Agency Comment Spec In Lab Hoda Casas MD HEMATOLOGY ORDERABLES Performing Organization Address City/State/[place] [address] (ABNORMAL) Hemogram (11/19/2018 5:13 AM EDT) Analysis Performed At Patho logist Time Signature WBC 8.6 4.0 - 9.5 [facility] x10(3)/[facility] LABORATORY RBC 4.25 4.00 - [facility] 5.21 [facility] x10(6)/[facility] LABORATORY Hemoglobin 13.2 11.7 - [facility] 15.5 gm/dL [facility] Hematocrit 40.9 35.7 - [facility] 45.8 % [facility] MCV 96.2 (H) 82.6 - [facility] 94.4 [facility] LABORATORY MCH 31.1 27.1 - [facility] 32.0 pg [facility] MCHC 32.3 31.7 - [facility] 35.0 gm/dL [facility] Platelets 212 145 - 357 [facility] x10(3)/[facility] LABORATORY RDWSD 51.0 (H) 37.0 - [facility] 46.0 [facility] LABORATORY RDWCV 14.4 (H) 11.5 - [facility] MARY 14.1 % [facility] MPV 10.2 7.6 - 12.9 [facility] LABORATORY nRBC % Auto 0.0 % [facility] nRBC Abs Auto 0.000 0.000 - [facility] MARY 0.000 [facility] x10(3)/[facility] LABORATORY Specimen Anatomical Collection Method Collection Time Receive d Time (Source) Location / / Volume Laterality Blood specimen 11/19/2018 5:13 AM 019 5:54 (specimen) EDT AM EDT Resulting Agency Comment Spec In Lab Hoda Casas MD HEMATOLOGY ORDERABLES Performing Organization Address City/State/[place] [address] POCT Glucose (11/18/2018 9:39 PM EDT) P athologist Signature POC Glucose 133 65 - 199 [facility] M[facility] mg/dL [facility] Comment: Supplemental ranges: <140 mg/dL before meals <180 mg/dL all other times of the day Specimen Anatomical Collection Method Collection Time Receive d Time (Source) Location / / Volume Laterality Blood specimen 11/18/2018 9:39 PM 9:39 (specimen) EDT PM EDT Hoda Casas MD POINT OF CARE TEST ORDERABLE S Performing Organization Address City/[facility]/[place] [address] POCT Glucose (11/18/2018 4:26 PM EDT) athologist Signature POC Glucose 149 65 - 199 [facility] mg/dL [facility] Comment: Supplemental ranges: <140 mg/dL before meals <180 mg/dL all other times of the day Specimen Anatomical Collection Method Collection Time Receive d Time (Source) Location / / Volume Laterality Blood specimen 11/18/2018 4:26 PM 019 4:26 (specimen) EDT PM EDT Hoda Casas MD POINT OF CARE TEST ORDERABLE S Performing Organization Address City/State/[place] [address] (ABNORMAL) POCT Glucose (11/18/2018 11:10 AM EDT) P athologist Signature POC Glucose 202 (H) 65 - 199 [facility] mg/dL [facility] Comment: Supplemental ranges: <140 mg/dL before meals <180 mg/dL all other times of the day Specimen Anatomical Collection Method Collection Time Receive d Time (Source) Location / / Volume Laterality Blood specimen 11/18/2018 11:10 9 (specimen) AM EDT 11:10 AM EDT Hoda Casas MD POINT OF CARE TEST ORDERABLE S Performing Organization Address City/[facility]/ZIP Code Phon e Number [address] POCT Glucose (11/18/2018 6:37 AM EDT) P athologist Signature POC Glucose 140 65 - 199 [facility] mg/dL [facility] Comment: Supplemental ranges: <140 mg/dL before meals <180 mg/dL all other times of the day Specimen Anatomical Collection Method Collection Time Receive d Time (Source) Location / / Volume Laterality Blood specimen 11/18/2018 6:37 AM 019 6:37 (specimen) EDT AM EDT Hoda Casas MD POINT OF CARE TEST ORDERABLE S Performing Organization Address City/[facility]/ZIP Code Phon e Number [address] Scan, Peripheral Blood (11/18/2018 4:40 AM EDT) [place] [facility] SnapMD Method Time Signature Plat Estimate Normal [facility] RBC Morphology Abnormal [facility] Tear Drop gtr than 10 /HPF [facility] LABORATORY [place] Cells 1-5 /HPF [facility] Dohle Bodies Present [facility] Specimen Anatomical Collection Method Collection Time Receive d Time (Source) Location / / Volume Laterality Blood specimen 11/18/2018 4:40 AM 5:19 (specimen) EDT AM EDT Resulting Agency Comment Spec In Lab Hoda Casas MD HEMATOLOGY ORDERABLES Performing Organization Address City/[facility]/ZIP Code Phon e Number [address] (ABNORMAL) Differential, Automated (11/18/2018 4:40 AM EDT) [facility] SnapMD Method Time Signature Neutrophils % 64.5 % [facility] Neutr Abs (ANC) 5.48 1.70 - [facility] 6.10 [facility] x10(3)/[facility] LABORATORY Lymphocytes % 16.9 % [facility] Lymphocytes Abs 1.4 0.9 - 3.2 [facility] x10(3)/[facility] LABORATORY Monocytes % 12.1 % [facility] Monocyte Abs 1.0 (H) 0.3 - 0.9 [facility] x10(3)/[facility] LABORATORY Eosinophils % 0.1 % [facility] Eosinophils Abs 0.0 0.0 - 0.4 [facility] x10(3)/[facility] LABORATORY Basophils % 1.2 % [facility] Basophils Abs 0.1 0.0 - 0.1 [facility] x10(3)/[facility] LABORATORY Immature Gran % 5.20 % [facility] Comment: Immature granulocytes(IG's)percentage an d absolute count will include metamyelocytes, myelocytes, and promyelo cytes. Blood smears from CBCs yielding IG's will be scanned manually for concor dance. If this scan disagrees with the automated IG or if promyelocytes are not ed, a manual differential will be performed. Ree Gran Abs 0.44 (H) 0.00 - 0.04 x10(3)/[facility] LABORATORY Specimen Anatomical Collection Method Collection Time Receive d Time (Source) Location / / Volume Laterality Blood specimen 11/18/2018 4:40 AM 019 5:19 (specimen) EDT AM EDT Resulting Agency Comment Spec In Lab Hoda Casas MD HEMATOLOGY ORDERABLES Performing Organization Address City/State/[place] [address] (ABNORMAL) Hemogram (11/18/2018 4:40 AM EDT) Analysis Performed At Patho logist Time Signature WBC 8.5 4.0 - 9.5 [facility] x10(3)/[facility] LABORATORY RBC 4.12 4.00 - [facility]21 [facility] x10(6)/[facility] LABORATORY Hemoglobin 12.8 11.7 - [facility] 15.5 gm/dL [facility] LABORATORY Hematocrit 40.3 35.7 - [facility] 45.8 % [facility] LABORATORY MCV 97.8 (H) 82.6 - KENDRA MARY [address] [facility] LABORATORY MCH 31.1 27.1 - KENDRA HERNANDEZ 32.0 pg [facility] LABORATORY MCHC 31.8 31.7 - KENDRA MARY 35.0 gm/dL [facility] LABORATORY Platelets 158 145 - 357 [facility] x10(3)/[facility] LABORATORY RDWSD 51.9 (H) 37.0 - [facility] [address] [facility] LABORATORY RDWCV 14.4 (H) 11.5 - [facility] 14.1 % [facility] LABORATORY MPV 10.8 7.6 - 12.9 [facility] LABORATORY nRBC % Auto 0.0 % [facility] nRBC Abs Auto 0.000 0.000 - [facility] 0.000 [facility] x10(3)/[facility] LABORATORY Specimen Anatomical Collection Method Collection Time Receive d Time (Source) Location / / Volume Laterality Blood specimen 11/18/2018 4:40 AM 019 5:19 (specimen) EDT AM EDT Resulting Agency Comment Spec In Lab Hoda Casas MD HEMATOLOGY ORDERABLES Performing Organization Address City/State/[place] [address] (ABNORMAL) Basic Metabolic Panel (non-fasting) (11/18/2018 4:40 AM EDT) P athologist Signature Glucose Lvl 136 65 - 199 [facility] mg/dL [facility] LABORATORY Comment: Diabetes: >=200 mg/dL plus symp toms BUN 41 (H) 8 - 18 mg/dL [facility] LABORATORY Creatinine 1.94 (H) 0.70 - 1.20 mg/dL [facility] LABORATORY Sodium 137 135 - 145 mmol/L [facility] Potassium 3.5 3.5 - 5.0 mmol/L [facility] Comment: Please note: ??Patients with WBC >100,00 0 may have falsely elevated Potassium levels. ??For accurate Potassium quantif ication in these patients send serum separator tube (gold top) for subsequent determinations. ??Contact the Clinical Chemistry Laboratory if there are any qu estions. Chloride 100 98 - 107 mmol/L [facility] CO2 24 22 - 31 mmol/L [facility] Anion Gap 13 5 - 15 mmol/L [facility] LABORATORY Calcium 9.1 8.5 - 10.5 mg/dL [facility] Comment: result rechecked-JSD Estimated GFR 30 (L) >=60 mL/min/1.73 m?? [facility] Comment: The eGFR was calculated using the CKD-EP I equation. As with all creatinine based estimates of kidney function, eGFR values calculated with the CKD-EPI equation are not accurate in patients wi th acute kidney failure, extremes of body mass or the acutely ill. http://Liftopia/MedSolutionsnkf eGFR 34 (L) >=60 mL/min/1.73 m?? [facility] Comment: The eGFR was calculated using the CKD-EP I equation. As with all creatinine based estimates of kidney function, eGFR values calculated with the CKD-EPI equation are not accurate in patients wi th acute kidney failure, extremes of body mass or the acutely ill. http://Liftopia/[facility] TULSAnkf Specimen Anatomical Collection Method Collection Time Receive d Time (Source) Location / / Volume Laterality Blood specimen 11/18/2018 4:40 AM 5:19 (specimen) EDT AM EDT Resulting Agency Comment Spec In Lab Hoda Casas MD CHEMISTRY ORDERABLES Performing Organization Address City/State/[place] [address] POCT Glucose (11/17/2018 7:56 PM EDT) P athologist Signature POC Glucose 169 65 - 199 [facility] mg/dL [facility] LABORATORY Comment: Supplemental ranges: <140 mg/dL before meals <180 mg/dL all other times of the day Specimen Anatomical Collection Method Collection Time Receive d Time (Source) Location / / Volume Laterality Blood specimen 11/17/2018 7:56 PM 7:56 (specimen) EDT PM EDT Hoda Casas MD POINT OF CARE TEST ORDERABLE S Performing Organization Address City/State/[place] [address] POCT Glucose (11/17/2018 4:13 PM EDT) athologist Signature POC Glucose 154 65 - 199 [facility] STONER[facility] mg/dL [facility] LABORATORY Comment: Supplemental ranges: <140 mg/dL before meals <180 mg/dL all other times of the day Specimen Anatomical Collection Method Collection Time Receive d Time (Source) Location / / Volume Laterality Blood specimen 11/17/2018 4:13 PM 019 4:13 (specimen) EDT PM EDT Hoda Csaas MD POINT OF CARE TEST ORDERABLE S Performing Organization Address City/[facility]/[place] [address] POCT Glucose (11/17/2018 11:47 AM EDT) athologist Signature POC Glucose 167 65 - 199 [facility] mg/dL [facility] LABORATORY Comment: Supplemental ranges: <140 mg/dL before meals <180 mg/dL all other times of the day Specimen Anatomical Collection Method Collection Time Receive d Time (Source) Location / / Volume Laterality Blood specimen 11/17/2018 11:47 9 (specimen) AM EDT 11:47 AM EDT Hoda Casas MD POINT OF CARE TEST ORDERABLE S Performing Organization Address City/State/[place] [address] POCT Glucose (11/17/2018 7:24 AM EDT) athologist Signature POC Glucose 166 65 - 199 KENDRA MARY mg/dL [facility] LABORATORY Comment: Supplemental ranges: <140 mg/dL before meals <180 mg/dL all other times of the day Specimen Anatomical Collection Method Collection Time Receive d Time (Source) Location / / Volume Laterality Blood specimen 11/17/2018 7:24 AM 7:24 (specimen) EDT AM EDT Olvin Doran MD POINT OF CARE TEST ORDERABLE S Performing Organization Address City/State/[place] [address] POCT Glucose (11/17/2018 6:22 AM EDT) athologist Signature POC Glucose 136 65 - 199 [facility] mg/dL [facility] LABORATORY Comment: Supplemental ranges: <140 mg/dL before meals <180 mg/dL all other times of the day Specimen Anatomical Collection Method Collection Time Receive d Time (Source) Location / / Volume Laterality Blood specimen 11/17/2018 6:22 AM 6:22 (specimen) EDT AM EDT Olvin Doran MD POINT OF CARE TEST ORDERABLE S Performing Organization Address City/[facility]/ZIP Code Phon e Number [address] Vancomycin, trough (11/17/2018 6:20 AM EDT) athologist Signature Vanc Trough 17.8 mg/L [facility] Comment: Therapeutic range for complicated infect ions such as bacteremia, endocarditis, osteomyelitis, meningitis, and hospital- acquired pneumonia caused by S. aureus: 15-20 mg/L Therapeutic range for other indications: 10-15 mg/L Toxic: >20 mg/L Reference: Vancomycin Therapeutic Monitoring: Aly kirby and Recommendations from the ASHP, IDSA and SIDP Task Force. ??Am J Health- Syst Pharm. 2009; 66:82-98 Specimen Anatomical Collection Method Collection Time Receive d Time (Source) Location / / Volume Laterality Blood specimen 11/17/2018 6:20 AM 019 6:31 (specimen) EDT AM EDT Resulting Agency Comment Spec In Lab Hoda Casas MD CHEMISTRY ORDERABLES Performing Organization Address City/[facility]/ZIP Code Phon e Number [address] (ABNORMAL) Differential, Automated (11/17/2018 1:25 AM EDT) athologist Signature Neutrophils % 74.6 % [facility] Neutr Abs (ANC) 5.50 1.70 - [facility] 6.10 [facility] x10(3)/[facility] LABORATORY Lymphocytes % 12.7 % [facility] Lymphocytes Abs 0.9 0.9 - 3.2 [facility] x10(3)/[facility] LABORATORY Monocytes % 10.4 % [facility] Monocyte Abs 0.8 0.3 - 0.9 [facility] x10(3)/[facility] LABORATORY Eosinophils % 0.0 % [facility] Eosinophils Abs 0.0 0.0 - 0.4 [facility] x10(3)/[facility] LABORATORY Basophils % 0.5 % [facility] Basophils Abs 0.0 0.0 - 0.1 [facility] x10(3)/[facility] LABORATORY Immature Gran % 1.80 % [facility] Comment: Immature granulocytes(IG's)percentage an d absolute count will include metamyelocytes, myelocytes, and promyelo cytes. Blood smears from CBCs yielding IG's will be scanned manually for concor dance. If this scan disagrees with the automated IG or if promyelocytes are not ed, a manual differential will be performed. Ree Gran Abs 0.13 (H) 0.00 - 0.04 x10(3)/[facility] LABORATORY Specimen Anatomical Collection Method Collection Time Receive d Time (Source) Location / / Volume Laterality Blood specimen 11/17/2018 1:25 AM 019 1:42 (specimen) EDT AM EDT Resulting Agency Comment Spec In Lab Kandis Tee MD HEMATOLOGY ORDERABLES Performing Organization Address City/State/[place] [address] (ABNORMAL) Hemogram (11/17/2018 1:25 AM EDT) Analysis Performed At Patho logist Time Signature WBC 7.4 4.0 - 9.5 [facility] x10(3)/[facility] LABORATORY RBC 3.84 (L) 4.00 - [facility] 5.21 [facility] x10(6)/[facility] LABORATORY Hemoglobin 12.2 11.7 - [facility] 15.5 gm/dL [facility] LABORATORY Hematocrit 36.9 35.7 - KENDRA MARY 45.8 % [facility] LABORATORY MCV 96.1 (H) 82.6 - [facility] LABORATORY MCH 31.8 27.1 - [facility]DRA LAYOTNCOCK 32.0 pg [facility] LABORATORY MCHC 33.1 31.7 - KENDRA STONERMARY 35.0 gm/dL [facility] LABORATORY Platelets 125 (L) 145 - 357 [facility] x10(3)/[facility] LABORATORY RDWSD 51.3 (H) 37.0 - KENDRA MARY [address] [facility] LABORATORY RDWCV 14.4 (H) 11.5 - [facility] 14.1 % [facility] LABORATORY MPV 11.2 7.6 - 12.9 [facility] LABORATORY nRBC % Auto 0.0 % [facility]ORY nRBC Abs Auto 0.000 0.000 - [facility] 0.000 [facility] x10(3)/[facility] LABORATORY Specimen Anatomical Collection Method Collection Time Receive d Time (Source) Location / / Volume Laterality Blood specimen 11/17/2018 1:25 AM 019 1:42 (specimen) EDT AM EDT Resulting Agency Comment Spec In Lab Kandis Tee MD HEMATOLOGY ORDERABLES Performing Organization Address City/State/[place] [address] (ABNORMAL) Basic Metabolic Panel (non-fasting) (11/17/2018 1:25 AM EDT) P athologist Signature Glucose Lvl 140 65 - 199 [facility] mg/dL [facility]ORY Comment: Diabetes: >=200 mg/dL plus symp toms BUN 48 (H) 8 - 18 mg/dL [facility] LABORATORY Creatinine 2.59 (H) 0.70 - 1.20 mg/dL [facility] LABOR[facility]ORY Comment: result rechecked-JSD Sodium 135 135 - 145 mmol/L [facility] Potassium 3.2 (L) 3.5 - 5.0 mmol/L [facility] LABORATORY Comment: Please note: ??Patients with WBC >100,00 0 may have falsely elevated Potassium levels. ??For accurate Potassium quantif ication in these patients send serum separator tube (gold top) for subsequent determinations. ??Contact the Clinical Chemistry Laboratory if there are any qu estions. Chloride 101 98 - 107 mmol/L [facility] CO2 21 (L) 22 - 31 mmol/L [facility] Anion Gap 13 5 - 15 mmol/L [facility] LAB[facility]ORY Calcium 7.7 (L) 8.5 - 10.5 mg/dL [facility] Comment: result rechecked-JSD Estimated GFR 21 (L) >=60 mL/min/1.73 m?? [facility] Comment: The eGFR was calculated using the CKD-EP I equation. As with all creatinine based estimates of kidney function, eGFR values calculated with the CKD-EPI equation are not accurate in patients wi th acute kidney failure, extremes of body mass or the acutely ill. http://Liftopia/MedSolutionsnkBionym eGFR 24 (L) >=60 mL/min/1.73 m?? [facility] Comment: The eGFR was calculated using the CKD-EP I equation. As with all creatinine based estimates of kidney function, eGFR values calculated with the CKD-EPI equation are not accurate in patients wi th acute kidney failure, extremes of body mass or the acutely ill. http://Liftopia/MedSolutionsnkf Specimen Anatomical Collection Method Collection Time Receive d Time (Source) Location / / Volume Laterality Blood specimen 11/17/2018 1:25 AM 019 1:42 (specimen) EDT AM EDT Resulting Agency Comment Spec In Lab Hoda Casas MD CHEMISTRY ORDERABLES Performing Organization Address City/State/[place] [address] POCT Glucose (11/16/2018 8:13 PM EDT) P athologist Signature POC Glucose 191 65 - 199 [facility] mg/dL [facility] LABORATORY Comment: Supplemental ranges: <140 mg/dL before meals <180 mg/dL all other times of the day Specimen Anatomical Collection Method Collection Time Receive d Time (Source) Location / / Volume Laterality Blood specimen 11/16/2018 8:13 PM 019 8:13 (specimen) EDT PM EDT Olvin Doran MD POINT OF CARE TEST ORDERABLE S Performing Organization Address City/State/[place] [address] POCT Glucose (11/16/2018 4:30 PM EDT) athologist Signature POC Glucose 137 65 - 199 KENDRA MARY mg/dL [facility] LABORATORY Comment: Supplemental ranges: <140 mg/dL before meals <180 mg/dL all other times of the day Specimen Anatomical Collection Method Collection Time Receive d Time (Source) Location / / Volume Laterality Blood specimen 11/16/2018 4:30 PM 019 4:30 (specimen) EDT PM EDT Olvin Doran MD POINT OF CARE TEST ORDERABLE S Performing Organization Address City/State/[place] [address] POCT Glucose (11/16/2018 11:37 AM EDT) athologist Signature POC Glucose 131 65 - 199 [facility] mg/dL [facility] LABORATORY Comment: Supplemental ranges: <140 mg/dL before meals <180 mg/dL all other times of the day Specimen Anatomical Collection Method Collection Time Receive d Time (Source) Location / / Volume Laterality Blood specimen 11/16/2018 11:37 9 (specimen) AM EDT 11:37 AM EDT Mylene Oakley MD POINT OF CARE TEST ORDER HOLLY Performing Organization Address City/State/ZIP Code Phon e Number [address] XR Chest One View (11/16/2018 [...] For questions regarding this report, please contact th e number below. ? Narrative 11/16/2018 11:12 [...] ORDERABLES POCT Glucose (11/16/2018 7:23 AM EDT) P athologist Signature POC Glucose 132 65 - 199 [facility] STONERMARY mg/dL [facility]OR[facility]ORY Comment: Supplemental ranges: <140 mg/dL before meals <180 mg/dL all other times of the day Specimen Anatomical Collection Method Collection Time Receive d Time (Source) Location / / Volume Laterality Blood specimen 11/16/2018 7:23 AM 019 7:23 (specimen) EDT AM EDT Mylene Oakley MD POINT OF CARE TEST ORDER HOLLY Performing Organization Address City/State/[place] [address] Blood culture (11/16/2018 6:30 AM EDT) Patholo gist Method Time Signature Blood Culture No growth [facility] at 5 days. [facility] LABORATORY Specimen Anatomical Collection Method Collection Time Receive d Time (Source) Location / / Volume Laterality Blood specimen STRUCTURE OF LEFT 11/16/2018 6:30 AM 7:29 (specimen) HAND / Unknown EDT AM EDT Resulting Agency Comment Spec In Lab Mylene Oakley MD MICROBIOLOGY - BLOOD ORD ERABLES Performing Organization Address City/State/[place] [address] (ABNORMAL) POCT Glucose (11/16/2018 3:50 AM EDT) athologist Signature POC Glucose 209 (H) 65 - 199 KENDRA MARY mg/dL [facility]OR[facility]ORY Comment: Supplemental ranges: <140 mg/dL before meals <180 mg/dL all other times of the day Specimen Anatomical Collection Method Collection Time Receive d Time (Source) Location / / Volume Laterality Blood specimen 11/16/2018 3:50 AM 019 3:50 (specimen) EDT AM EDT Mylene Oakley MD POINT OF CARE TEST ORDER HOLLY Performing Organization Address City/State/[place] [address] (ABNORMAL) Urine culture (11/16/2018 3:31 AM EDT) [facility] SnapMD Method Time Signature Urine Culture 1,000-9,000 KENDRA HERNANDEZ cfu/ml Gram [facility] Rods (A) LABORATORY Organism Gram [facility] Negative [facility] (A) [facility] LABORATORY Specimen (Source) Anatomical Collection Method Collection Time Re ceived Time Location / / Volume Laterality Urine specimen 11/16/2018 3:31 11/16/2018 5:16 obtained via AM EDT AM EDT indwelling urinary catheter (specimen) Resulting Agency Comment Spec In Lab Osvaldo Beebe MD MICROBIOLOGY - GENERAL ORDER HOLLY Performing Organization Address City/[facility]/ZIP Code Phon e Number [address] (ABNORMAL) Urinalysis Microscopic Exam (11/16/2018 3:31 AM EDT) [facility] SnapMD Method Time Signature RBC UA >182 (H) 0 - 4 [facility] LABORATORY WBC UA >182 (H) 0 - 5 [facility] /[facility] LABORATORY WBCs Clumping Many (A) None /HPF [facility] LABORATORY Bacteria UA Moderate (A) None /HPF [facility] LABORATORY Squam Epith 5 (H) <=4 /HPF [facility] LABORATORY Specimen (Source) Anatomical Collection Method Collection Time Re ceived Time Location / / Volume Laterality Urine specimen 11/16/2018 3:31 11/16/2018 3:58 obtained via AM EDT AM EDT indwelling urinary catheter (specimen) Resulting Agency Comment Spec In Lab Osvaldo Beebe MD URINE ORDERABLES Performing Organization Address City/[facility]/ZIP Code Phon e Number [address] (ABNORMAL) Urinalysis with reflex Culture (11/16/2018 3:31 AM EDT) [facility] SnapMD Method Time Signature Glucose UA Negative Negative KENDRA MARY mg/dL [facility] LABORATORY Protein UA >=500 (A) Negative [facility] mg/dL [facility] LABORATORY Bilirubin UA Negative Negative KENDRA MARY mg/dL [facility] LABORATORY Comment: Clinical correlation required for positi ve Urine Bilirubin results as false positive may occur with some drugs and d rug related products. If a false positive is suspected a serum total bili palacios should be considered if clinically indicated. Urobilinogen UA 2.0 (A) Normal mg/dL [facility] LABORATORY pH UA 5.0 5.0 - 8.0 [facility] LABORATORY Blood UA Large (A) Negative mg/dL [facility] LABORATORY Ketones UA Negative Negative mg/dL [facility]OR[facility]ORY Nitrite UA Negative Negative [facility] LABORATORY Leukocytes UA Moderate (A) Negative [facility] LABORATORY Appearance UA Cloudy (A) Clear [facility] LABORATORY Spec Brandon UA 1.017 1.002 - 1.030 [facility] LABORATORY Color UA Maritza Yellow [facility] LABORATORY Culture Reflexed Yes [facility] LABORATORY Specimen (Source) Anatomical Collection Method Collection Time Re ceived Time Location / / Volume Laterality Urine specimen 11/16/2018 3:31 11/16/2018 3:55 obtained via AM EDT AM EDT indwelling urinary catheter (specimen) Resulting Agency Comment Spec In Lab Mylene Oakley MD URINE ORDERABLES Performing Organization Address City/[facility]/ZIP Code Phon e Number [address] Urea nitrogen, urine, random (11/16/2018 2:44 AM EDT) P athologist Signature U Urea 108 mg/dL [facility] LABORATORY Specimen Anatomical Collection Method Collection Time Receive d Time (Source) Location / / Volume Laterality Urine specimen 11/16/2018 2:44 AM 019 3:13 (specimen) EDT AM EDT Resulting Agency Comment Spec In Lab Mylene Oakley MD URINE ORDERABLES Performing Organization Address City/[facility] Phon e Number [address] Creatinine, urine, random (11/16/2018 2:44 AM EDT) P athologist Signature U Creatinine 120 mg/dL [facility] Specimen Anatomical Collection Method Collection Time Receive d Time (Source) Location / / Volume Laterality Urine specimen 11/16/2018 2:44 AM 019 3:13 (specimen) EDT AM EDT Resulting Agency Comment Spec In Lab Mylene Oakley MD URINE ORDERABLES Performing Organization Address City/State/ZIP Code Phon e Number [address] Electrolytes, urine, random (11/16/2018 2:44 AM EDT) P athologist Signature U Sodium 65 mmol/L [facility] U Potassium 33 mmol/L [facility] U Chloride 33 mmol/L [facility] Specimen Anatomical Collection Method Collection Time Receive d Time (Source) Location / / Volume Laterality Urine specimen 11/16/2018 2:44 AM 019 3:13 (specimen) EDT AM EDT Resulting Agency Comment Spec In Lab Mylene Oakley MD URINE ORDERABLES Performing Organization Address City/[facility]/ZIP Code Phon e Number [address] (ABNORMAL) Hemoglobin A1c (11/16/2018 2:30 AM EDT) Analysis Performed At Patho logist Time Signature Hemoglobin A1C 6.8 (H) 4.3 - 5.6 [facility] Comment: Reference Range: [...] Mellitus, Diabetes Care 2013; 36: Suppl. 1, W97-41 Est Avg Gluc 149 mg/dL [facility] Comment: eAG equivalents for HbA1c percentages: HbA1c(%) ?eAG(mg/dL) 6.0 ?126 6.5 ?140 7.0 ?154 7.5 ?169 8.0 ?183 8.5 ?197 9.0 ?212 9.5 ?226 10.0 ? 240 Limitations: The eAG calculation has not been validated on women, individuals below 18 years old and above 70 years old, and individuals with hemoglobinopathies. Additional resources are available on [facility] ADA website. Floyd UNGER, Laurie J, Lucio R, et al. ??Tr anslating the A1C assay into estimated average glucose values. ??Diabetes Care 2008:31(8):4236-8905. Specimen Anatomical Collection Method Collection Time Receive d Time (Source) Location / / Volume Laterality Blood specimen Venous Draw / 11/16/2018 2:30 AM 2018 (specimen) Unknown EDT 12:33 PM EDT Resulting Agency Comment Spec In Lab Kandis Tee MD CHEMISTRY ORDERABLES Performing Organization Address City/State/[place] [address] (ABNORMAL) Differential, Automated (11/16/2018 2:30 AM EDT) [facility] gist Method Time Signature Neutrophils % 78.2 % [facility] Neutr Abs (ANC) 8.57 (H) 1.70 - [facility] 6.10 [facility] x10(3)/[facility] L LABORATORY Lymphocytes % 10.4 % [facility] Lymphocytes Abs 1.1 0.9 - 3.2 [facility] x10(3)/[facility] LABORATORY Monocytes % 9.0 % [facility] Monocyte Abs 1.0 (H) 0.3 - 0.9 [facility] x10(3)/[facility] LABORATORY Eosinophils % 0.0 % [facility] Eosinophils Abs 0.0 0.0 - 0.4 [facility] x10(3)/[facility] LABORATORY Basophils % 0.5 % [facility] Basophils Abs 0.0 0.0 - 0.1 [facility] x10(3)/[facility] LABORATORY Immature Gran % 1.90 % [facility] Comment: Immature granulocytes(IG's)percentage an d absolute count will include metamyelocytes, myelocytes, and promyelo cytes. Blood smears from CBCs yielding IG's will be scanned manually for concor dance. If this scan disagrees with the automated IG or if promyelocytes are not ed, a manual differential will be performed. Ree Gran Abs 0.21 (H) 0.00 - 0.04 x10(3)/[facility] LABORATORY Specimen Anatomical Collection Method Collection Time Receive d Time (Source) Location / / Volume Laterality Blood specimen 11/16/2018 2:30 AM 019 2:35 (specimen) EDT AM EDT Resulting Agency Comment Spec In Lab Osvaldo Beebe MD HEMATOLOGY ORDERABLES Performing Organization Address City/State/[place] [address] (ABNORMAL) Hemogram (11/16/2018 2:30 AM EDT) Analysis Performed At Patho logist Time Signature WBC 11.0 (H) 4.0 - 9.5 [facility] x10(3)/[facility] LABORATORY RBC 4.32 4.00 - [facility] 5.21 [facility] x10(6)/[facility] LABORATORY Hemoglobin 13.5 11.7 - [facility] 15.[facility] gm/dL [facility] Hematocrit 41.5 35.7 - [facility] 45.8 % [facility] MCV 96.1 (H) 82.6 - KENDRA HERNANDEZ [address] [facility] LABORATORY MCH 31.3 27.1 - KENDRA HERNANDEZ 32.0 pg [facility] MCHC 32.5 31.7 - KENDRA HERNANDEZ 35.0 gm/dL [facility] Platelets 173 145 - 357 KENDRA MARY x10(3)/[facility] LABORATORY RDWSD 51.8 (H) 37.0 - KENDRA HERNANDEZ [address] [facility] LABORATORY RDWCV 14.5 (H) 11.5 - [facility] MARY 14.1 % [facility] MPV 11.4 7.6 - 12.[address] [facility] LABORATORY nRBC % Auto 0.0 % [facility] nRBC Abs Auto 0.000 0.000 - KENDRA HERNANDEZ 0.000 [facility] x10(3)/[facility] LABORATORY Specimen Anatomical Collection Method Collection Time Receive d Time (Source) Location / / Volume Laterality Blood specimen 11/16/2018 2:30 AM 019 2:35 (specimen) EDT AM EDT Resulting Agency Comment Spec In Lab Osvaldo Beebe MD HEMATOLOGY ORDERABLES Performing Organization Address City/State/ZIP Code Phon e Number [address] Lactate, whole blood, send to lab ([facility]) (11/16/2018 2:30 AM EDT) P athologist Signature Lactate WB 1.7 0.5 - 2.2 [facility] mmol/L [facility] Specimen Anatomical Collection Method Collection Time Receive d Time (Source) Location / / Volume Laterality Blood specimen 11/16/2018 2:30 AM 019 2:35 (specimen) EDT AM EDT Resulting Agency Comment Spec In Lab Mylene Oakley MD CHEMISTRY ORDERABLES Performing Organization Address City/State/ZIP Code Phon e Number [address] (ABNORMAL) CMP w/fasting Glucose (11/16/2018 2:30 AM EDT) P athologist Signature Glucose 227 (H) 65 - 99 [facility] Fasting mg/dL [facility] Comment: ?Fasting* Glucose Interpretive C riteria [...] of Diabetes Mellitus, Position Statement from the [employer]. ??Diabete s Care, Volume 33, Supplement 1, Feb 2009 BUN 57 (H) 8 - 18 mg/dL [facility] Creatinine 3.79 (H) 0.70 - 1.20 mg/dL [facility] Sodium 134 (L) 135 - 145 mmol/L [facility] Potassium 3.8 3.5 - 5.0 mmol/L [facility] Comment: Please note: ??Patients with WBC >100,00 0 may have falsely elevated Potassium levels. ??For accurate Potassium quantif ication in these patients send serum separator tube (gold top) for subsequent determinations. ??Contact the Clinical Chemistry Laboratory if there are any qu estions. Chloride 95 (L) 98 - 107 mmol/L [facility] CO2 23 22 - 31 mmol/L [facility] Anion Gap 16 (H) 5 - 15 mmol/L [facility] Calcium 8.9 8.5 - 10.5 mg/dL [facility] Total Protein 7.0 6.1 - 8.0 gm/dL [facility] Albumin 3.2 3.2 - 5.2 gm/dL [facility] AST 48 (H) 0 - 30 unit/L [facility] ALT 24 0 - 30 unit/L [facility] Alk Phos 105 35 - 105 unit/L [facility] Total Bilirubin 0.6 0.2 - 1.3 mg/dL [facility] Estimated GFR 13 (L) >=60 mL/min/1.73 m?? [facility] Comment: The eGFR was calculated using the CKD-EP I equation. As with all creatinine based estimates of kidney function, eGFR values calculated with the CKD-EPI equation are not accurate in patients wi th acute kidney failure, extremes of body mass or the acutely ill. http://Liftopia/[facility]Ank eGFR 15 (L) >=60 mL/min/1.73 m?? [facility] Comment: The eGFR was calculated using the CKD-EP I equation. As with all creatinine based estimates of kidney function, eGFR values calculated with the CKD-EPI equation are not accurate in patients wi th acute kidney failure, extremes of body mass or the acutely ill. http://Liftopia/[facility]k Specimen Anatomical Collection Method Collection Time Receive d Time (Source) Location / / Volume Laterality Blood specimen 11/16/2018 2:30 AM 019 2:35 (specimen) EDT AM EDT Resulting Agency Comment Spec In Lab Mylene Oakley MD CHEMISTRY ORDERABLES Performing Organization Address City/[facility]/ZIP Code Phon e Number [address] Magnesium (11/16/2018 2:30 AM EDT) P athologist Signature Magnesium 0.73 0.69 - 1.07 [facility] mmol/L [facility] Specimen Anatomical Collection Method Collection Time Receive d Time (Source) Location / / Volume Laterality Blood specimen 11/16/2018 2:30 AM 019 2:35 (specimen) EDT AM EDT Resulting Agency Comment Spec In Lab Mylene Oakley MD CHEMISTRY ORDERABLES Performing Organization Address City/[facility]/ZIP Code Phon e Number [address] Phosphorus (11/16/2018 2:30 AM EDT) P athologist Signature Phosphorus 2.7 2.5 - 4.5 [facility] mg/dL [facility] Specimen Anatomical Collection Method Collection Time Receive d Time (Source) Location / / Volume Laterality Blood specimen 11/16/2018 2:30 AM 019 2:35 (specimen) EDT AM EDT Resulting Agency Comment Spec In Lab Mylene Oakley MD CHEMISTRY ORDERABLES Performing Organization Address City/[facility]/ZIP Code Phon e Number [address] APTT (11/16/2018 2:30 AM EDT) athologist Signature PTT 29 25 - 37 sec [facility] Comment: The PTT is [...] Oakley MD HEMATOLOGY ORDERABLES Performing Organization Address City/[facility]/ZIP [facility] [place] [address] (ABNORMAL) Prothrombin Time (11/16/2018 2:30 AM EDT) athologist Signature PT 13.4 (H) 9.4 - 12.5 [facility] LABORATORY INR 1.2 [facility] Comment: An INR <2.0 [...] Oakley MD HEMATOLOGY ORDERABLES Performing Organization Address City/State/ZIP Code Phon e Number [address] (ABNORMAL) POCT Glucose (11/16/2018 1:57 AM EDT) P athologist Signature POC Glucose 214 (H) 65 - 199 [facility] mg/dL [facility] Comment: Supplemental ranges: <140 mg/dL before meals <180 mg/dL all other times of the day Specimen Anatomical Collection Method Collection Time Receive d Time (Source) Location / / Volume Laterality Blood specimen 11/16/2018 1:57 AM 019 1:57 (specimen) EDT AM EDT Mylene Oakley MD POINT OF CARE TEST ORDER HOLLY Performing Organization Address City/[facility]/[place] [address] documented in this encounter [...] PRN, Starting on Fri11/18/18 at 0651, Until Alicia 11/19/18 at 1320, Pain, Fever, Headaches, Maximum dose of acetaminophen is 4000 mg from all sources in 24 hours., Routine ARIPiprazole (ABILIFY) tablet 10 mg Given 11/19/2018 9:19 AM EDT 10 mg 10 mg, Oral, DAILY, First dose on 11/16/18 at 0900, Until Discontinued, Routine Given 11/18/2018 [...] Buccal, EVERY 30 MIN PRN, Starting on Mon 10/20 at 1234, Until Alicia 11/19/18 at [...] 1 capsule, Oral, DAILY, First dose on Alicia 11/19/18 at 0900, Until Discontinued, Routine magnesium sulfate [...] 0143, Until Fri11/16/18 at 0223, Risa Damon: becky override NORepinephrine 16 mcg/mL Rate/Dose Change 11/16/2018 [...] (Giv en - Provider: Sigifredo Terry, PARMINDER) 10 mg, Oral, DAILY, First dose on Fri at 0900, Until Discontinued, Routine buPROPion (WELLBUTRIN XL) XL tablet 300 mg 0915 (Given - Provider: Doe Arnold RN) 0853 (Given - Provider: Dionte Rice RN) 0919 (Giv en - Provider: Sigifredo Terry RN) 300 mg, Oral, DAILY, First dose on Fri at 0900, Until Discontinued, DO NOT CRUSH OR OPEN, Routine cefTRIAXone (ROCEPHIN) 2 g vial attach t o sodium chloride 0.9% 50 mL Mini-Bag Plus (CANCELED) 0253 (New Bag - Provider: Cammie argueta RN)0323 (Stopped - Provider: Cammie Gallego RN) 0343 (New Bag - Provider: Emilee stanton RN)0413 (Stopped - Provider: Emilee Abreu, PARMINDER) 2 g, Intravenous, EVERY 24 HOURS, First [...] Discontinued, Routine famotidine (PEPCID) tablet 20 mg 0915 (Given - Provider: Allen Arnold RN) 0853 (Given - Provider: Dionte Rice RN) 0918 (Given - Provider: Sigifredo Terry RN) 20 mg, Oral, DAILY, First dose on [...] Arnold RN)1614 (Given - Provider: Doe Arnold RN)2033 (Given - Provider: Yesi Armendariz RN - Comment: POC glucose 169) 0730 (Not Given - Provider: Emilee alfredo RN - Reason: Patient/family refused)1138 (Given - Provider: Dionte Rice, PARMINDER)1634 (Given - Provider: Dionte Rice, PARMINDER) 0730 (Not Given - Provider: Jen abernathy [...] 1 capsule 1003 (Given - Provider: Sigifredo Terry RN) 1 capsule, Oral, DAILY, First dose on 11/19/18 at 0900, Until Discontinued, Routine methylphenidate HCl (RITALIN) tablet 10 mg 0536 (Given - Provider: Cammie Gallego RN) 0651 (Given - Provider: Emilee Abreu, PARMINDER) 0702 (G iven - Provider: Jen Joel, PARMINDER) 10 mg, Oral, EVERY MORNING, First dose o n Fri11/16/18 at 0600, Until Discontinued, Routine methylphenidate HCl (RITALIN) tablet 20 mg 0537 (Given - Provider: Cammie Gallego, PARMINDER)1350 (Given - Provider: Doe Arnold RN) 0652 (Given - Provider: Emilee Abreu RN)1229 (Given - Provider: Dionte Rice RN) 0702 (Given - Provider: Jen Joel, PARMINDER) 20 mg, Oral, 2 TIMES DAILY, First dose o n Fri11/16/18 at 0600, Until Discontinued, Routine miconazole (MICOTIN) 2 % powder 899 (Given - Provider : Doe Arnold RN)2032 (Given - Provider: Yesi Armendariz RN) 0853 (Given - Provider: Dionte Rice RN)215 (Given - Provider: Jen Joel RN) 0923 (Given - Provider: Sigifredo Terry, PARMINDER) Topical (Top), 2 TIMES DAILY, First dose on Fri11/16/18 at 0900 nystatin (Mycostatin) (100,000 units/mL) oral liquid 5 00,000 Units 0915 (Given - Provider: Doe Arnold RN)1332 (Given - Provider: Doe Arnold RN)1750 (Given - Provider: Doe Arnold RN)2033 (Given - Provider: Yesi Armendariz RN) 0852 (Given - Provider: Dionte Rice RN)1230 (Given - Provider: Dionte Rice RN)1720 (Given - Provider: Dionte Rice RN)215 (Given - Provider: Jen Joel, PARMINDER) 0918 (Given - Provider: Sigifredo Terry, PARMINDER) 500,000 Units, Oral, 4 TIMES DAILY, 28 d oses, First dose on Fri11/16/18 at 1300, Last dose on Fri11/23/18 at 0900, Routine potassium chloride (K-DUR/KLOR-CON) extended release t ablet 40 mEq (COMPLETED) 032 (Given - Provider: Cammie Gallego, PARMINDER) 40 mEq, Oral, ONCE, 1 dose, Fri11/17/18 at 0315, 20 mEq tablet may be dissolved in water for administration, Routine sodium chloride 0.9 % (flush) flush 5 mL 09 (Given - Provider: Doe Arnold RN)2034 (Given - Provider: Yesi Armendariz RN) 09 (Given - Provider: Dionte Rice RN)215 (Given - Provider: Jen Joel RN) 0922 (Given - Provider: Sigifredo Terry, PARMINDER) 5 mL, Intravenous, 2 TIMES DAILY, First dose on Fri11/16/18 at 0245, Until Discontinued, Routine vancomycin 2 g in sodium chloride 0.9% 500 mL (COMPLET ED) 1209 (New Bag - Provider: Doe Arnold, RN)1409 (Stopped - Provider: Doe Arnold, PARMINDER) 2 g, Intravenous, ONCE, 1 dose, 11/17 [...] 150 mg 0732 (Given - Provider: Doe Arnold RN) 0852 (Given - Provider: Dionte Rice RN) 0918 (Giv en - Provider: Sigifredo Terry RN) 150 mg, Oral, DAILY WITH BREAKFAST, Firs t dose on Fri11/16/18 at 0800, Until Discontinued, DO NOT CRUSH OR OPEN, Routine PRN Medication Order 11/17/2018 11/18/2018 11/19/2018 acetaminophen (TYLENOL) tablet 1,000 mg 5911 (Given - Provider: Jen Joel RN) 1,000 mg, Oral, EVERY 6 HOURS PRN, [...] 3 mL 2223 (Given - Provider: Jen Joel, PARMINDER) 3 mL, Nebulization, EVERY 4 HOURS PRN, [...] Intravenous, EVERY 1 MIN PRN, S tarting Fri11/16/18 at 0221, Until Fri11/19/18 at 1320, flush, Flush pertains to all [...] PRN, Start ing Fri11/16/18 at 1234, Until Fri11/19/18 at 1320, Low blood sugar
For BG [...]
Routine documented in this encounter Care Teams Hopper Operator Relationship Specialty Start Date End Date Maria Del Carmen Nogueira PA PCP - General 01/27/14 10/05/19 [address] [place] [address] documented as of this encounter
--- OUTSIDE RECORDS SUMMARY | 2021-10-26 00:51 | XMS_ITS | Encounter Summary ---
:1970 Author Organization [facility] [place] [address] Care Team Providers Name Role Phone Maria Del Carmen Nogueira Primary Care Provider Reason for Referral Consultation (Routine) - Closed Specialty Diagnoses / Procedures Referred By Contact Refer red To Contact Weight and Wellness Diagnoses Morbid obesity with BMI of 50.0-59.9, adult Tristan Gusman [facility] Weight Wellness MD [address], [place] ORTHOPAEDIC SURGERY [address] [place] [address] Referral ID Status Reason Start Date Expiration Date Visits V isits Requested Authorized [id number] Closed Consult, 09/15/2017 09/15/2018 1 1 Test & Treat Reason for Visit Reason Comments Left Knee Pain Right Knee Pain Consultation (Routine) - Specialty Diagnoses / Procedures Referred By Contact Refer red To Contact Orthopaedics Diagnoses Osteoarthritis, knees bilateral Maria Del Carmen Nogueira [facility] Orthopaedics [address] PA [facility] [address] [facility] [address] [place] [address] [place] [address] Referral ID Status Reason Start Date Expiration Date Visits V isikris Requested Authorized [id number] Consult, 05/28/2017 05/28/2018 1 1 Test & Treat Connection Center Encounter Details Date Type Department Care Team Description 09/15/2017 Office Visit [place] [place] [facility] Tristan Gusman Chronic pain of both knees; One [facility] MD Minoo Morbid obesity with BMI of 50.0-59.9, [place] [address] CENTER [phone] ORTHOPAEDIC SURGERY [place], [place] [address] Social History Tobacco Use Types [...] referred from VERNA Irving [address] [place] [address] I.D.: Rosibel Dinh is a 47 y.o. [...] less than $15,000 # People Supported 1 Guinean, , No, not Guinean// Race White Health Literacy A little bit Currently working No Not working because: Not working due to disability [employer] Response 09/15/2017 KOOS JR Scores 31.31 Spine [...] sitting Moderate Degree of difficutly: Bending to floor/pickle sorter object Severe ALLERGIES Allergies Allergen Reactions ??? [...] Synvisc injection into her knees for severe [id number] arthritis. She is plagued by knee pain [...] questions were answered. Tristan Gusman MD, MS Desk Director, Division of Adult Reconstructive [employer] Intern of Orthopaedics Department of Orthopaedics [facility] [phone] [email or web address] documented in this encounter Plan of Treatment Upcoming Encounters Date Type Specialty Care Team Description 12/17/2021 Office Visit Cardiology Miguel Glass MD [facility] [place] [id number] (Wo rk) Scheduled Referrals Name Type Priority Associated Diagnoses Order S chedule Referral to Weight Outpatient Referral Routine Morbid obesity with Ordered: [facility] BMI of 50.0-59.9, 09/15 adult documented as of this encounter Visit Diagnoses Diagnosis Chronic pain of both knees Morbid obesity with BMI of 50.0-59.9, ad ult Morbid obesity documented in this encounter Care Teams Electrical Hardware Engineer Relationship Specialty Start Date End Date Maria Del Carmen Nogueira PA PCP - General 01/27/14 10/05/19 [address] [place] [address] documented as of this encounter
--- OUTSIDE RECORDS SUMMARY | 2021-10-26 00:51 | XMS_ITS | Encounter Summary ---
:1970 [place] [address] Care Team Providers Name Role Phone Maria Del Carmen Nogueira Primary Care Provider Reason for Visit Reason Onset Date Comments Referral 09/15/2017 Encounter Details Date Type Department Care Team Description 09/15/2017 Telephone Weight and Wellness at Giana Bai APRN Referral [facility] [address] [place] [address] [place] [address] [phone] Social History Tobacco Use Types Packs/Day Years [...] 12/17/2021 Office Visit Cardiology Miguel Glass MD [facility] er Dr Ashton MD 0375 (Wo rk) documented as of this encounter Visit Diagnoses Not on filedocumented in this encounter Care Teams Multi Township Assessor Relationship Specialty Start Date End Date Maria Del Carmen Nogueira PA PCP - General 01/27/14 10/05/19 [address] [place] [address] documented as of this encounter
--- OUTSIDE RECORDS SUMMARY | 2021-10-26 00:51 | XMS_ITS | Encounter Summary ---
:1970 Author Organization [facility] [place] [address] Care Team Providers Name Role Phone DioneMaría camara Primary Care Provider Encounter Details Date Type Department Care Team Description 02/25/2014 Hospital Encounter Ultrasound at [facility] Kendra Suárez MD [address] [place] [address] [place] [address] [place] [address] Social History Tobacco Use Types Packs/Day Years Used Date Never Assessed Sex Assigned at Date Recorded Not on file documented as of this encounter Plan of Treatment Upcoming Encounters Date Type Specialty Care Team Description 12/17/2021 Office Visit Cardiology Miguel Glass MD [facility] [place], [place] [address] (Wo rk) documented as of [...] ? pm) Patient Info ID #: ? [id number] ?: ??[birth year] (43 yrs) Name: ? ROSIBELMinoo BOWDEN ?Visit Date: 02/25/2014 03:20 pm Performed By Performed By: ?Flor Mckenna RDMS Attending: ? Floridalma NUÑEZ, Guilherme Rodriguez Referred By: ? MARÍA GAY MD Service(s) Provided ??[facility] - Ultrasound - Transvaginal - [phone] ? [id number] Indications ??RLQ ABDOMINAL PAIN ??MENTRASAL ABN ------- History ------- Age: ?? 43 LMP: ?? 02/13/14 ?Day O f Cycle: ?? 13 ------ Uterus ------ Uterus: ? Visualized Position: ?? Anteverted Size (cm) ?L: ??8.79 ?W: ?? 5.44 ? H: ??5.11 Description: ?? Multiple fibroids [...] 10/2014 03:45 pm) Patient Info ID #: [id number] : [id number] (43 y rs) Name: ROSIBEL BOWDEN Visit Date: 10/2014 03:20 pm Performed By Performed By: Flor Mckenna RDMS Attending: Guilherme Hedrick MD Referred By: MARÍA GAY MD Service(s) Provided [place] - Ultrasound - Transvaginal - [phone] Indications RLQ ABDOMINAL PAIN MENTRASAL ABN ------- [...] on filedocumented in this encounter Care Teams Small Machine Bindery Operator Relationship Specialty Start Date End Date María Nogueira PA PCP - General 01/27/14 10/05/19 [address] [place] [address] documented as of this encounter
--- OUTSIDE RECORDS SUMMARY | 2021-10-26 00:51 | XMS_ITS | Encounter Summary ---
:1970 Author Organization [facility] [place] [address] Care Team Providers Name Role Phone Maria Del Carmen Nogueira Primary Care Provider Encounter Details Date Type Department Care Team Description 09/15/2017 Hospital Encounter XRay at [facility] Tristan Gusman Bilateral chronic [address] [place] [address] Dr Minoo MD knee pain [facility] [address] VALIER [phone] [place] [address] Social History Tobacco Use Types Packs/Day Years [...] Visit Cardiology Miguel Glass MD One [facility] [address] [place], [place] [address] (Wo rk) documented as of this encounter Procedures Procedure Name Priority Date/Time Associated Diagnosis Comme nts XR KNEE STANDING Routine 09/15/2017 8:40 AM Bilateral chronic Results for this ALIGNMENT AP LAT EDT knee pain procedure a re in [facility] the result s BILAT section. documented in this encounter Results XR Knee Standing Alignment AP Lat [facility] Bilat (09/15/2017 8:40 AM EDT) Anatomical Region Laterality Modality Bilateral Digital Radiography Specimen (Source) Anatomical Location Collection Method / Collectio n Time Received Time / Laterality Volume Impressions 09/15/2017 9:07 AM EDT Medial deviation of the bilateral lower extremity weightbearing axes by approximately 3.5 cm each, with severe m ezzmo-ztzpgfymskq-wrcotcowtnq OA of both knees. Narrative 09/15/2017 9:07 [...] approximately 3.5 cm each, with severe m aeiim-iaozydeqlcw-ldhajnxfvbq OA of both knees. Tristan Gusman MD IMG DX ORDERABLES documented in this encounter Visit Diagnoses Diagnosis Bilateral chronic knee pain Pain in joint, lower leg documented in this encounter Care Teams Sales Account Specialist Relationship Specialty Start Date End Date Maria Del Carmen Nogueira PA PCP - General 01/27/14 10/05/19 [address] [place] [address] documented as of this encounter
--- OUTSIDE RECORDS SUMMARY | 2021-10-26 00:51 | XMS_ITS | Encounter Summary ---
:1970 Author Organization [facility] Address [address] [facility] [address] [place] [address] Care Team Providers Name Role Phone Maria Del Carmen Nogueira Primary Care Provider Encounter Details Date Type Department Care Team Description 11/15/2018 Ancillary Procedure Radiology Library at Cathi Nogueira [facility] [place] [facility] [address] [place] [address] [place] [address] [phone] Social History Tobacco Use Types Packs/Day Years [...] Visit Cardiology Miguel Glass MD One Medical [facility] [address] [place], [place] [address] (Wo rk) documented as of [...] Organization Address City/State/ZIP Code Phon e Number [place], [place] documented in this encounter Visit Diagnoses Not on filedocumented in this encounter Care Teams Oceanic Sciences Professor Relationship Specialty Start Date End Date Maria Del Carmen Nogueira PA PCP - General 01/27/14 10/05/19 [address] [place] [address] documented as of this encounter
--- OUTSIDE RECORDS SUMMARY | 2021-10-26 00:54 | XMS_ITS | Encounter Summary ---
:1970 Author Organization [facility] Address [address] [place] [address] Care Team Providers Name Role Phone Maria Del Carmen Nogueira PA-C Primary Care Provider [phone] Encounter Details Date Type Department Care Team Description 10/12/2019 Lab Requisition [facility] Center Starla Calvert En counter for other Pathology & A, HOTEL YARDPERSON general examination Laboratory Medicine [address] [place], [place] 111 [facility] [address] [place] [address] Social History Tobacco Use Types Packs/Day Years [...] SERVICES types 16,18,31,33,35,39,45 ,51,52,56,58,59,66, and 68 by mastic floor layer mediated amplification. Specimen Pap Test - Cervix and/or Endocervix Performing Organization Address City/[facility]/ZIP Code Phon e Number [facility] [address] [place] [address] SERVICES PAP TEST (10/12/2019 11:15 EDT) Specimens A. Cervix and/or [facility] Endocervix , ThinPrep CENTER Imaging System with LABORATORY Manual Evaluation SERVICES Specimen Adequacy Satisfactory for [facility] Evaluation - CENTER transformation zone LABORATORY component present SERVICES General Negative for [facility] intraepithelial PLUSH lesion or malignancy LABORATORY SERVICES Attestation . [facility] Electronically CENTER signed by SHARRI Salas CT(ASCP) on SERVICES 10/26/2019 at 151 2 HPV The result for the Human Pap illomavirus (HPV) Detection-High Risk Types is Negative. No E6 or E7 mRNA is detected from HPV types 16,18,31,33,35,39,45,51,52,56,58,59,66, and 68 by mastic floor layer mediated [facility] amplification.Testing was pe rformed on specimen [id number] and was resulted on 10/26/2019 1508 EDT by DONNIE, LAB INSTRUMENT RESULTS IN [facility] TER LABORATORY SERVICES Scanned Images [facility] SERVICES Specimen Pap Test - Cervix and/or Endocervix Performing Organization Address [facility] Phon e Number [facility] [address] [place] [address] SERVICES CHLAMYDIA/N. GONORRHOEAE AMPLIFIED RNA, THINPREP (10/12/2019 11:15 EDT) Pathologist Sig nature Gonococcus Result Negative Negative [facility] SERVICES Chlamydia Result Negative Negative [facility] SERVICES Specimen Pap Test - Cervix and/or Endocervix Performing Organization Address City/[facility]/ZIP Code Phon e Number [facility] [address] [place] [address] SERVICES documented in this encounter Visit Diagnoses Diagnosis Encounter for other general examination documented in this encounter Care Teams Resident Care Provider Relationship Specialty Start Date End Date Maria Del Carmen Nogueira PA-C PCP - General 03/23/14 documented as of this encounter
--- OUTSIDE RECORDS SUMMARY | 2021-10-26 00:54 | XMS_ITS | Encounter Summary ---
:[address] [facility] Address [address] [place] [address] Care Team Providers Name Role Phone María Nogueira PA-C Primary Care Provider [phone] Encounter Details Date Type Department Care Team Description 12/07/2015 Results Only [facility] Maribel Raoulmaría elena, DO [address] [facility] [address] [place], [place] [id number] (Wo rk) Social History Tobacco Use Types Packs/Day Years Used Date Never Assessed Sex Assigned at Date Recorded Not on file documented as of this encounter Plan of Treatment Not on filedocumented as of this encounter Procedures Procedure Name Priority Date/Time Associated Diagnosis Comme [facility] SURGICAL PATHOLOGY Routine 12/07/2015 13:52 Resul ts for this EDT procedure are i n the results section. documented in this encounter Results SURGICAL PATHOLOGY (12/07/2015 13:52 EDT) Pathology Report: SURGICAL PATHOLOGY REPORT [facility] Reports generated via electronic interface contain catracho ginal data; LABORATORY however they are lacking the format of the original re port. SERVICES Caution should be taken when reading/interpreting unfo rmatted reports. Name: ? ROSIBEL BOWDEN ? Accession #: ? [id number] ? : ? 1970 (Age: 45 ) [...] brown-black cholelith is pres ent. ? Two claim representative se ctions including the entire thickened region and the inked en face cystic duct margin are submitted in 1. Dr. Krishna 12/08/2015 4:05 PM End of Report Specimen Performing Organization Address City/State/ZIP Code Phon e Number [facility] [address] [place] [address] SERVICES documented in this encounter Visit Diagnoses Not on filedocumented in this encounter Care Teams Help Desk Internship Relationship Specialty Start Date End Date María Nogueira PA-C PCP - General 03/23/14 documented as of this encounter
--- OUTSIDE RECORDS SUMMARY | 2021-10-26 00:54 | XMS_ITS | Encounter Summary ---
:1970 Author Organization [facility] Address [address] [place] [address] Care Team Providers Name Role Phone Unavailable Primary Care Provider Unavailable Encounter Details Date Type Department Care Team Description 08/15/2009 Results Only [facility] Tray Suárez MD Laboratory Services - [facility] [address] [place], [place] [address] [place] [address] [phone] Social History Tobacco Use Types Packs/Day Years [...] Address City/State/ZIP Code Phon e Number [facility] [address] [place] [address] SERVICES [facility] [address] [place] [address] CYTOPATHOLOGY (08/15/2009 0:00 EDT) Pathology Report: CYTOPATHOLOGY REPORT ? TREVINO ALL EN ? LAB Reports generated via goBalto interface contain original data; ? however they are lacking the format of the original report. ? Caution should be taken when reading/interpreting unformatted reports. ? Name: ? DENNISE, ROSIBEL ? Accession #: ? [id number] ? : ? 1970 (Age: 39) ??F [...] Address City/State/ZIP Code Phon e Number [facility] [address] [place] [address] SERVICES [facility] [address] [place] [address] documented in this encounter Visit Diagnoses Not on filedocumented in this encounter
--- OUTSIDE RECORDS SUMMARY | 2021-10-26 00:54 | XMS_ITS | Encounter Summary ---
:1970 Author Organization [facility] Address [address] [place] [address] Care Team Providers Name Role Phone Maria Del Carmen Nogueira PA-C Primary Care Provider [phone] Encounter Details Date Type Department Care Team Description 03/19/2021 Lab Requisition [facility] Outr Resulting Lab, Pathology & Laboratory Provider [facility] [address] [place], [place] [address] Social History Tobacco Use Types Packs/Day Years Used Date Never Assessed Sex Assigned at Date Recorded Not on file documented as of this encounter Plan of Treatment Not on filedocumented as of this encounter Procedures Procedure Name Priority Date/Time Associated Diagnosis Comme nts COVID-19 TEST [facility] Today 03/19/2021 14:00 LAB PCR EST COVID-19 TESTING Routine 03/19/2021 14:00 Results for this EST procedure are i n the results section. documented in this encounter Results COVID-19 TEST [facility] LAB PCR (03/19/2021 14:00 EST) Specimen Swab Performing Organization Address City/State/ZIP Code Phon e Number [facility] [address] [place] [address] SERVICES COVID-19 TESTING (03/19/2021 14:00 EST) COVID-19 rt-PCR Negative Negative [facility] Result Comment: CENTER LABORATORY This test [...] performed using the elier SARS-CoV-2 assay ([employer] on the Elier [address]00 System Performing Lab [address] [facility] Lab [facility] SERVICES Specimen Swab Performing Organization Address City/State/ZIP Code Phon e Number [facility] [address] [place] [address] SERVICES documented in this encounter Visit Diagnoses Not on filedocumented in this encounter Care Teams Mechanical Maintenance Technician Relationship Specialty Start Date End Date Maria Del Carmen Nogueira PA-C PCP - General 03/23/14 documented as of this encounter
--- OUTSIDE RECORDS SUMMARY | 2021-10-26 00:54 | XMS_ITS | Encounter Summary ---
:1970 Author Organization [facility] Address [address] [place] [address] Care Team Providers Name Role Phone Maria Del Carmen Nogueira PA-C Primary Care Provider [phone] Encounter Details Date Type Department Care Team Description 11/03/2019 Lab Requisition [facility] Santana Thornton MD Encounter for other Pathology & [address] [facility] general examination Laboratory Medicine [facility] [address] [address] [facility] [phone] [place] [address] (Work) [phone] Social History Tobacco Use Types Packs/Day Years [...] 10:30 EDT) Final Diagnosis A. ENDOMETRIUM, BIOPSY: [facility] - Proliferative endometrium. [facility] SERVICES Attestation There was significant [facility] Electr onically resident/fellow CENTER signed by Janice chery, involvement in the LABORATORY Dania Dumont MD diagnostic evaluation SERVICES on 10/19 at 1643 of this case. By the signature below, the attending physician certifies that they have personally conducted a gross and/or microscopic examination of the described specimens and rendered or confirmed the above diagnosis. Clinical History [facility] SERVICES Gross Description A. [facility] Received in formalin zoraida d with proper patient identification (initials S, L) and EMB is a 2.5 x 2.0 x 0.5 cm aggregate of clotted blood, blood-tinged mucus and red-brown tissue fragments. Submitted entirely in A1-A2. [facility] RAKESH BAZAN 11/03/2019 19:44 SERVICES Resident/Fellow: Jefferson Patel MD [facility] SERVICES Performing Lab [facility] SERVICES Scanned Images [facility] SERVICES Specimen Tissue - Entire endometrium (body struct ure) Performing Organization Address City/State/ZIP Code Phon e Number [facility] [address] [place] [address] SERVICES documented in this encounter Visit Diagnoses Diagnosis Encounter for other general examination documented in this encounter Care Teams Insulation Nozzleman Relationship Specialty Start Date End Date Maria Del Carmen Nogueira PA-C PCP - General 03/23/14 documented as of this encounter
--- OUTSIDE RECORDS SUMMARY | 2021-10-26 00:54 | XMS_ITS | Clinical Summary ---
:1970 Author Organization [facility] Address [address] [place] [address] Care Team Providers Name Role Phone Maria Del Carmen Nogueira PA-C Primary Care Provider [phone] Encounters Date Type Specialty Care Team [...] Pathologist Sig nature Legionella Antigen Negative Negative [facility] Detection LABORATORY SERVICES Specimen Urine - Urine specimen collection, clean catch (procedure) Performing Organization Address City/State/ZIP Code Phon e Number [facility] [address] [place] [address] SERVICES from Last 3 Months Insurance Payer Benefit Plan / Subscriber ID Effective Phone Address T ype Group Dates MEDICARE MEDICARE A/B [id number] 2005-Prese [address] [place] [address] [place] [address] 2019-Pres [address] [place], [place] [address] Care Teams Harvest Manager Relationship Specialty Start Date End Date Maria Del Carmen Nogueira PA-C PCP - General 03/23/14
--- OUTSIDE RECORDS SUMMARY | 2021-10-26 00:54 | XMS_ITS | Encounter Summary ---
:1970 Author Organization [facility] Address [address] [place] [address] Care Team Providers Name Role Phone Maria Del Carmen Nogueira PA-C Primary Care Provider [phone] Encounter Details Date Type Department Care Team Description 08/21/[address] [facility] Outr Resulting Lab, Pathology & Laboratory Provider General acute hospital [address] [place], [place] [address] Social History Tobacco Use Types Packs/Day Years [...] this encounter Results LEGIONELLA ANTIGEN DETECTION, URINE (08/21/2021 2:02 EDT) Pathologist Sig nature Legionella Antigen Negative Negative [facility] Detection LABORATORY SERVICES Specimen Urine - Urine specimen collection, clean catch (procedure) Performing Organization Address City/State/ZIP Code Phon e Number [facility] [address] [place] [address] SERVICES documented in this encounter Visit Diagnoses Not on filedocumented in this encounter Care Teams Soil Conservation Technician Relationship Specialty Start Date End Date Maria Del Carmen Nogueira PA-C PCP - General 03/23/14 documented as of this encounter
--- OUTSIDE RECORDS SUMMARY | 2021-10-26 00:54 | XMS_ITS | Encounter Summary ---
:1970 Author Organization [facility] Address [address] [place] [address] Care Team Providers Name Role Phone Unavailable Primary Care Provider Unavailable Encounter Details Date Type Department Care Team Description 12/03/2011 Results Only [facility] , Laboratory Services - [address] AJ REINOSO [address] [place] [address] [place], [place] [address] [phone] Social History Tobacco Use Types Packs/Day Years Used Date Never Assessed Sex Assigned at Date Recorded Not on file documented as of this encounter Plan of Treatment Not on filedocumented as of this encounter Procedures Procedure Name Priority Date/Time Associated Diagnosis Comme [facility] SURGICAL PATHOLOGY Routine 12/03/2011 0:00 EDT Re [...] ? ROSIBEL BOWDEN ? Accession #: ? [id number] ? : ? 1970 (Age: 41) ??F [...] specimens are submitted intact as (B). ??(Denice balbuena)/[facility] End of Report Specimen Performing Organization Address City/State/ZIP Code Phon e Number [facility] [address] [place] [address] SERVICES [facility] [address] [place] [address] documented in this encounter Visit Diagnoses Not on filedocumented in this encounter
--- OUTSIDE RECORDS SUMMARY | 2021-10-26 00:54 | XMS_ITS | Encounter Summary ---
:1970 Author Organization [facility] Address [address] [place] [address] Care Team Providers Name Role Phone Unavailable Primary Care Provider Unavailable Encounter Details Date Type Department Care Team Description 08/28/2006 Results Only [facility] - Tray Wheeler MD [facility] [address] [facility] [address] [place] [address] [place] [address] [phone] (Wo rk) Social History Tobacco Use Types [...] ? ROSIBEL BOWDEN ? Accession #: ? [id number] : ? 1970 (Age: 36) ??F ?Collect Date: ? 08/17 Location: ? [facility] ? Receive Date : ? 09/01/2006 Provider: ?TRAY BRUNNER MD Copy to: ? Specimen/Source: ? ThinPrep Pap Test, Cervix/Endocervix, processed on [employer] ThinPrep Imaging System, with manual evaluation Last Menstrual Period: ? 08/19/06 Hormonal/Contraceptive Status: ? Tubal ligation: BTL Treatment History: ? Cone biopsy: 2001 ? SPECIMEN ADEQUACY ? Satisfactory for Evaluation - transformation zone component present GENERAL CATEGORIZATION ? Negative for Intraepithelial Lesion or Malignan cy ? Document reviewed and electronically signed by: ? India Jackson, [facility](ASCP) ? Report Date: ??09/05/2006 08:42 End of Report Specimen Performing Organization Address City/State/ZIP Code Phon e Number [facility] [address] [place] [address] SERVICES [facility] [address] [place] [address] documented in this encounter Visit Diagnoses Not on filedocumented in this encounter
--- OUTSIDE RECORDS SUMMARY | 2021-10-26 00:54 | XMS_ITS | Encounter Summary ---
:1970 Author Organization [facility] Address [address] [place] [address] Care Team Providers Name Role Phone Maria Del Carmen Nogueira PA-C Primary Care Provider [phone] Encounter Details Date Type Department Care Team Description 12/14/2015 Hospital Encounter [facility] [place] Unknown, Provider, [facility] [address] [facility] [phone] [place] [address] (Work) [phone] Social History Tobacco Use Types Packs/Day Years Used Date Never Assessed Sex Assigned at Date Recorded Not on file documented as of this encounter Discharge Diagnoses Diagnosis Z01.89 Encounter for other specified spe cial examinations-Z01.89[ICD-10-CM] documented in this encounter Discharge Disposition Disposition Code Departure Means Destination Home or Self Usp documented in this encounter Plan of Treatment Not on filedocumented as of this encounter Visit Diagnoses Not on filedocumented in this encounter Care Teams Grader Tender Relationship Specialty Start Date End Date Maria Del Carmen Nogueira PA-C PCP - General 03/23/14 documented as of this encounter
--- OUTSIDE RECORDS SUMMARY | 2021-10-26 00:54 | XMS_ITS | Encounter Summary ---
:1970 Author Organization [facility] Address [address] [place] [address] Care Team Providers Name Role Phone Unavailable Primary Care Provider Unavailable Encounter Details Date Type Department Care Team Description 12/25/2004 Results Only [facility] - Jaycee Zarate FNP conversion [address] [address] [place] [address] [place] [address] (Wo rk) Social History Tobacco Use Types [...] ? ROSIBEL BOWDEN ? Accession #: ? [id number] : ? 1970 (Age: 34) ??F ?Collect Date: ? 1109/2004 Location: ? [facility] ? Receive Date : ? 12/27/2004 Provider: ?JAYCEE CRONIN FOREST FIREFIGHTER Copy to: ? Specimen/Source: ? ThinPrep Pap Test, Cervix/Endocervix, processed on [employer] ThinPrep Imaging System, with manual evaluation Last [...] Code Phon e Number [facility] [address] [place] [address] SERVICES [facility] [address] [place] [address] documented in this encounter Visit Diagnoses Not on filedocumented in this encounter
--- OUTSIDE RECORDS SUMMARY | 2021-10-26 00:54 | XMS_ITS | Encounter Summary ---
:[address] [facility] Address [address] [place] [address] Care Team Providers Name Role Phone Unavailable Primary Care Provider Unavailable Encounter Details Date Type Department Care Team Description 05/11/2008 Before PRISM [facility] - Tray Suárez MD Converted Visit [facility] MEDICAL ([place]) [address] [place] [address] [address] [place] [address] (Wo rk) Social History Tobacco Use Types [...] Organization Address City/State/ZIP Code Phon e Number [facility] [address] [place] [address] SERVICES [facility] [address] [place] [address] CYTOPATHOLOGY (05/11/2008 0:00 EDT) Pathology Report: CYTOPATHOLOGY REPORT ? TREVINO ALL EN ? LAB Reports generated via T-VIPS interface contain original data; ? however they are lacking the format of the original report. ? Caution should be taken when reading/interpreting unformatted reports. ? Name: ? ROSIBEL BOWDEN ? Accession #: ? [id number] ? : ? 1970 (Age: 37) ??F [...] Organization Address City/State/ZIP Code Phon e Number [facility] [address] [place] [address] SERVICES [facility] [address] [place] [address] documented in this encounter Visit Diagnoses Not on filedocumented in this encounter
--- OUTSIDE RECORDS SUMMARY | 2021-10-26 00:54 | XMS_ITS | Encounter Summary ---
:1970 Author Organization [facility] Address [address] [place] [address] Care Team Providers Name Role Phone Maria Del Carmen Nogueira PA-C Primary Care Provider [phone] Encounter Details Date Type Department Care Team Description 12/20/2014 Results Only [facility]- [facility] Jacob Burger, JUNIE A J[place], [place] [phone] (Wo rk) Social History [...] Sig nature Result METHICILLIN RESISTANT STAPHYLOCOCCUS AUREUS [facility] Organism identification performed by client. LABORATORY SERVICES [...] Organization Address City/State/ZIP Code Phon e Number [facility]ORY [address] [place] [id number] SERVICES documented in this encounter Visit Diagnoses Not on filedocumented in this encounter Care Teams Technology Applications Engineer Relationship Specialty Start Date End Date Maria Del Carmen Nogueira PA-C PCP - General 03/23/14 documented as of this encounter
--- OUTSIDE RECORDS SUMMARY | 2021-10-26 00:54 | XMS_ITS | Encounter Summary ---
:1970 Author Organization [facility] Address [address] [place] [address] Care Team Providers Name Role Phone Unavailable Primary Care Provider Unavailable Encounter Details Date Type Department Care Team Description 10/25/2003 Results Only [facility] - Jaycee Zarate FNP conversion [address] [place] [address] [place] [address] (Wo rk) Social History Tobacco Use Types [...] ? ROSIBEL BOWDEN ? Accession #: ? [id number] : ? 1970 (Age: 33) ??F ?Collect Date: ? 08/2003 Location: ? [facility] ? Receive Date : ? 10/27/2003 Provider: ?JAYCEE CRONIN UX INFORMATION ARCHITECT Copy to: ? Specimen/Source: ?ThinPrep Pap Test, [...] Organization Address City/State/ZIP Code Phon e Number [facility] [address] [place] [address] SERVICES [facility] [address] [place] [address] documented in this encounter Visit Diagnoses Not on filedocumented in this encounter
--- OUTSIDE RECORDS SUMMARY | 2021-10-26 00:54 | XMS_ITS | Encounter Summary ---
:1970 Author Organization [facility] Address [address] [place] [address] Care Team Providers Name Role Phone Maria Del Carmen Nogueira PA-C Primary Care Provider [phone] Encounter Details Date Type Department Care Team Description 08/11/2021 Lab Requisition [facility] Outr Resulting Lab, Pathology & Laboratory Provider [facility] [address] [place] [phone] Social History Tobacco Use Types Packs/Day Years [...] Pathologist Sig nature Legionella Antigen Negative Negative [facility] Detection LABORATORY SERVICES Specimen Urine Performing Organization Address City/State/ZIP Code Phon e Number [facility] [address] [place] [address] SERVICES documented in this encounter Visit Diagnoses Not on filedocumented in this encounter Care Teams Resource Specialist Relationship Specialty Start Date End Date Maria Del Carmen Nogueira PA-C PCP - General 03/23/14 documented as of this encounter
--- OUTSIDE RECORDS SUMMARY | 2021-10-26 00:54 | XMS_ITS | Encounter Summary ---
:1970 Author Organization [facility] Address [address] [place] [address] Care Team Providers Name Role Phone Unknown, Provider Primary Care Provider Encounter Details Date Type Department Care Team Description 03/21/2014 Results Only [facility]- [facility] Bia Hooper MD [phone] [place] [address] Social History Tobacco Use Types Packs/Day Years [...] (03/21/2014 8:22 EST) Pathology SURGICAL PATHOLOGY REPORT [facility] Report: Reports generated via electronic interface conta in original data; [facility] LAB[facility]ORY however they are lacking the format of the original re port. SERVICES Caution should be taken when reading/interpreting unfo rmatted reports. Name: ? ROSIBEL BOWDEN ? Accession #: ? [id number] ? : ? 1970 (Age: 43) ??F [...] Organization Address City/State/ZIP Code Phon e Number [facility] [address] [place] [address] SERVICES PAP TEST- RESULT ONLY (03/21/2014 0:00 EST) Pathology Report: CYTOPATHOLOGY REPORT [facility] Reports generated via electronic interface contain catracho ginal data; SERVICES however they are lacking the format of the original re port. Caution should be taken when reading/interpreting unfo rmatted reports. Name: ? ROSIBEL BOWDEN ? Accession #: ? [id number] ? : ? 1970 (Age: 43) ??F [...] types 16,18,31,3 3,35, 39,45,51,52,56,58,59,66, and 68 by tire builder media Div[employer]. Comments Document reviewed and electronically signed by: ? System Interface ? Report date: 04/06/2014 By the signature above, the attending physician certif ies that he/she has personally conducted a gross and/or microscopic examin ation of the described specimens and rendered or confirmed the above diagnosi s. End of Report Specimen Performing Organization Address City/State/[facility] Code Phon e Number [facility] [address] [place] [address] SERVICES documented in this encounter Visit Diagnoses Not on filedocumented in this encounter Care Teams Web Machine Tender Relationship Specialty Start Date End Date Unknown, Provider, PCP - General 12/05/11 03/22/14 documented as of this encounter
--- NOTE | 2021-10-26 07:00 | DI.CTLCSR_ITS ---
Exam(s) CT CHEST LUNG CANCER SCREEN EXAM: CT CHEST LUNG CANCER SCREEN CLINICAL HISTORY: Screening for lung cancer,CURRENT SMOKER, F17.210 TECHNIQUE: Imaging Protocol: Axial computed tomography images with coronal and sagittal reformatted images were created and reviewed COMPARISON: CT CT ABDOMEN PELVIS W from 12/14/2020 CR,XR XR PORTABLE CHEST AP from 08/18/2021 FINDINGS: Tracheobronchial tree: Patent where visualized. Pulmonary parenchyma: No consolidation or dominant measurable mass. Mild centrilobular emphysematous changes are present. There is scarring and/or atelectasis seen in the medial aspect of the right mid dle lobe, the lingula and the lower lobes bilaterally. Lung Nodules: None. Mediastinum and [place]: No dominant adenopathy or fluid collection. The esophagus is unremarkable. Thyroid gland: Unremarkable. Lymph nodes: Unremarkable. Pleura: No effusion or pneumothorax. Heart: The heart is not dilated. Moderate coronary artery calcification is seen. No pericardial effu yoel. Aorta: Thoracic aorta non-dilated.Atherosclerosis is present. Upper abdomen: Unremarkable. Soft Tissues: Unremarkable. Bones: There again seen advanced degenerative changes throughout the mid and lower thoracic spine. T he degree of sclerosis appears similar compared to the CT scan from 12/14/2020. This is likely degen erative. If there is concern for metastatic disease MRI may be considered. IMPRESSION: No pulmonary nodules. Lung RADS Cat 1 - Negative: No nodules and definitely benign nodules Modifier S Lung-RADS 1.0 CATEGORIES: Category 0 - Prior chest CT exam(s) being located for comparison. Category 1 - Annual screening in 12 months. No nodules or definitely benign nodules. Category 2 - Annual screening in 12 months. Benign appearance. Nodules with low likelihood of becomin g active cancer. Category 3 - 6-month follow-up. Probably benign. Short-term follow-up suggested. Nodules with low lik elihood of becoming active cancer. Category 4A - 3-month follow-up and CT/PET if >8 mm in size. Suspicious finding. Findings which requi re additional testing. Category 4B - Findings which require additional testing and tissue sampling. Suspicious finding. Category 4X - Category 3 or 4 nodules with additional features or imaging findings that increases the suspicion of malignancy. Modifier S- Potentially clinically significant finding. (Non lung cancer) RADIATION DOSE DELIVERED: 82.52mGy.cm Total DLP 2.21mGy CTDIvol 82.52mGy.cm Total DLP 2.21mGy CTDIvol DATA REPOSITORY: All CT scans at this facility are submitted to the National Radiology Data Registry (NRDR) Dose Index Registry (DIR) with the [employer] (A[employer]). RADIATION OPTIMIZATION: All CT scans at this facility use at least one of these dose optimization te chniques: automated exposure control; mA and/or kV adjustment per patient size (includes targeted exa ms where dose is matched to clinical indication); or iterative reconstruction.
== END ==
PROVIDERS: PCP Physician Assistant Medical; Visit Provider Student in an Organized Health Care Education/Training Program
DX: F17.210 Nicotine dependence, cigarettes, uncomplicated (principal); Z12.2 Encounter for screening for malignant neoplasm of respiratory organs
CPT/HCPCS: 71271

== ENCOUNTER 2021-10-29 04:16 | Outpatient (CLI) | payer MEDICARE, MEDICAID, SELFPAY ==
[2021-10-29] MEDS: Inhaler, Assist Device 1 EACH MC (13:49)
[2021-10-29] MEDS: Albuterol HFA 18 GM 200 PUFF INH IH (13:49)
--- NOTE | 2021-11-09 16:43 | W.PFT ---
Date of service: 10/29/21 Time of Service: 13:06 Pulmonary Function Test Result Requesting Provider Brianda Indications: Dyspnea Interpretation Spirometry: Although the FEV1/FVC ration is technically lennox, airflow limitation is suggested by the flow volume loop and the volume time curve. There is likely a significant bronchodilator response. The FVC is low. Lung Volumes: There is severe hyperinflation and air trapping Diffusion Capacity: Diffusion is significantly reduced Airway Pressure: Increased airways resistance. Impression Likely severe airflow obstruction with a reduced diffusion consistent with COPD. There is also significant airtrapping and hyperinflation. The low FVC is proabbly due to severe obstructive lung disease. Note: As compared to 08/18/09, there has been significant worsening in the lung function even when accounting for aging. Clinical Correlation therefore is recommended.
== END 2021-10-29 04:17 | disposition home or self-care (01) ==
LOC: RT 04:16
PROVIDERS: PCP Physician Assistant Medical; Visit Provider Student in an Organized Health Care Education/Training Program
DX: J44.9 Chronic obstructive pulmonary disease, unspecified (principal)
CPT/HCPCS: 94060; 94726; 94729

== ENCOUNTER 2021-11-04 07:19 | Inpatient (IN) | payer MEDICARE, MEDICAID, SELFPAY ==
[2021-11-04] VITALS (31 sets, daily range): BP systolic 116–190; BP diastolic 77–97; PULSE 81–116; RESP 2–35; TEMP 35.9–37.1; O2SAT 82–94
--- NOTE | 2021-11-04 07:15 | DI.RAD_ITS ---
Exam(s) XR PORTABLE CHEST AP EXAM: XR PORTABLE CHEST AP CLINICAL HISTORY: sob, copd. TECHNIQUE: 2D digital imaging was performed. COMPARISON: CR,XR XR PORTABLE CHEST AP from 08/18/2021 FINDINGS: Single AP portable view. Mild cardiomegaly again noted. Mediastinum is not widened. Pulmonary venous hypertension pattern ag ain noted. No Pb B lines. No large pleural effusions. Lungs are clear. No infiltrates nor obvious pleural effusions. IMPRESSION: As above. No significant radiographic change compared to 08/18/2021. DATA REPOSITORY: RADIATION DOSE DELIVERED: All CT scans at this facility use at least one of these dose optimization techniques: automated exposure control; mA and/or kV adjustment per patient size (includes targeted e xams where dose is matched to clinical indication); or iterative reconstruction.
--- NOTE | 2021-11-04 07:29 | W.ED.GENAD ---
Discharge Plan Disposition Patient Disposition: STILL A PATIENT Condition: Improving Discharge Details Chief Complaint: RespSymp Clinical Impression: COPD with acute exacerbation Primary Care Provider: Maria Del Carmen Nogueira ED Provider: Rajendra Ying Home Meds and New Rx's Prescriptions: No Action rosuvastatin 40 mg tablet 40 mg PO HS Incruse Ellipta 62.5 mcg/actuation blister with device 1 inh inhalation DAILY Qty: 30 6RF desvenlafaxine succinate [Pristiq] 100 MG tablet extended release 24 hr 100 mg PO DAILY albuterol sulfate 8.5 GM HFA aerosol inhaler 1 - 2 puff Inhalation Q4H PRN gabapentin 300 MG capsule 900 mg PO HS atenolol 50 MG tablet 50 mg PO DAILY aripiprazole [Abilify] 10 MG tablet 10 mg PO DAILY nystatin 1 EACH powder 1 ea PO TID PRN fenofibrate 160 MG tablet 160 mg PO DAILY pantoprazole [Protonix] [address] for susp in packet 40 mg PO DAILY lisinopril 20 MG tablet 40 mg PO DAILY ipratropium-albuterol 0.5 mg-3 mg(2.5 mg base)/3 mL solution for nebulization 3 ml inhalation Q4H PRN (Reason: wheezing) Qty: 540 12RF Jardiance 10 mg Tablet 10 mg PO QAM Qty: 30 0RF magnesium oxide 400 mg (241.3 mg magnesium) Tablet 400 mg PO HS Qty: 30 0RF torsemide 20 mg tablet 20 mg PO DAILY Qty: 30 0RF oxycodone-acetaminophen 10-325 mg Tablet 1 tab PO QID PRN PRN (Reason: Pain) naloxone [Narcan] 4 mg/actuation [place],Non-Aerosol 4 mg Intranasal PRN PRN (Reason: excessive sedation) methylphenidate HCl [Ritalin] 20 mg Tablet 20 mg PO BID insulin aspart U-100 [Novolog Flexpen U-100 Insulin] 100 unit/mL (3 mL) insulin pen 0 sliding scale dose SUBCUT AC Rx Instructions: MAXIMUM OF 50 UNITS PER 24 HOURS bupropion HCl 200 mg tablet sustained-release 12 hr 200 mg PO QAM Label Comments: TAKE 1 TABLET BY MOUTH ONCE DAILY IN THE MORNING Januvia 100 mg tablet 100 mg PO DAILY Levemir FlexTouch U-100 Insuln 100 unit/mL (3 mL) insulin pen 44 unit SUBCUT DAILY Advair HFA 230-21 mcg/actuation HFA aerosol inhaler 1 puff INHALATION BID Medical Decision Making 51-year-old female history of COPD, home O2 use, presents with shortness of breath dry cough and tachypnea as well as hypoxia to the high 80s at home on 3 L nasal cannula, appears in moderate distress, expiratory wheeze bilaterally. Likely COPD exacerbation consider viral URI versus pneumonia less likely ACS or PE. Will obtain basic screening labs, chest x-ray, steroids, nebs, close reassessment disposition pending reassessment of symptoms. HPI General Date/Time Provider Initiated Documentation: 11/04/21 07:22. HPI Narrative: 51-year-old female history of COPD presents with shortness of breath and hypoxia saturating in the high 80s on nasal cannula as high as 3 L at home. Endorses prior COPD exacerbations and need for BiPAP, was close to intubation at one point in the past however patient had declined Related Data Home Medications Medication Instructions Recorded Confirmed albuterol sulfate 90 mcg/actuation 1 - 2 puff inhalation Q4H PRN 03/21/14 10/12/21 aerosol inhaler desvenlafaxine succinate 100 mg 100 mg PO DAILY 03/21/14 10/12/21 tablet,extended release 24 hr (Pristiq) aripiprazole 10 mg tablet (Abilify) 10 mg PO DAILY 04/22/17 10/12/21 atenolol 50 mg tablet 50 mg PO DAILY 04/22/17 10/12/21 fenofibrate 160 mg tablet 160 mg PO DAILY 04/22/17 10/12/21 gabapentin 300 mg capsule 900 mg PO HS 04/22/17 10/12/21 nystatin 500 million unit oral 1 ea PO TID PRN 04/22/17 10/12/21 powder pantoprazole 40 mg granules 40 mg PO DAILY 04/22/17 10/12/21 delayed-release for susp in packet (Protonix) lisinopril 20 mg tablet 40 mg PO DAILY 04/23/17 10/12/21 naloxone 4 mg/actuation nasal 4 mg intranasal PRN PRN excessive 04/29/18 10/12/21 spray (Narcan) sedation oxycodone-acetaminophen 10 mg-325 1 tab PO QID PRN PRN Pain 04/29/18 10/12/21 mg tablet methylphenidate HCl 20 mg tablet 20 mg PO BID 11/15/18 10/12/21 (Ritalin) rosuvastatin 40 mg tablet 40 mg PO HS 04/12/19 10/12/21 bupropion HCl 200 mg tablet,12 hr 200 mg PO QAM 01/15/21 10/12/21 sustained-release fluticasone propionate 230 1 puff inhalation BID 01/15/21 10/12/21 mcg-salmeterol 21 mcg/actuation HFA inhaler (Advair HFA) insulin aspart U-100 100 unit/mL 0 sliding scale dose subcut AC 01/15/21 10/12/21 (3 mL) subcutaneous pen (Novolog Flexpen U-100 Insulin aspart) insulin detemir U-100 100 unit/mL 44 unit subcut DAILY 01/15/21 10/12/21 (3 mL) subcutaneous pen (Levemir FlexTouch U-100 Insulin) sitagliptin 100 mg tablet (Januvia) 100 mg PO DAILY 01/15/21 10/12/21 empagliflozin 10 mg tablet 10 mg PO QAM #30 tabs 08/22/21 10/12/21 (Jardiance) magnesium oxide 400 mg (241.3 mg 400 mg PO HS #30 tabs 08/22/21 10/12/21 magnesium) tablet torsemide 20 mg tablet 20 mg PO DAILY #30 tabs 08/22/21 10/12/21 ipratropium 0.5 mg-albuterol 3 mg 3 ml inhalation Q4H PRN wheezing 10/12/21 (2.5 mg base)/3 mL nebulization #540 mL soln umeclidinium 62.5 mcg/actuation 1 inh inhalation DAILY #30 ea 10/12/21 blister powder for inhalation (Incruse Ellipta) Previous Rx's Medication Instructions Recorded empagliflozin 10 mg tablet 10 mg PO QAM #30 tabs 08/22/21 (Jardiance) magnesium oxide 400 mg (241.3 mg 400 mg PO HS #30 tabs 08/22/21 magnesium) tablet torsemide 20 mg tablet 20 mg PO DAILY #30 tabs 08/22/21 ipratropium 0.5 mg-albuterol 3 mg 3 ml inhalation Q4H PRN wheezing 10/12/21 (2.5 mg base)/3 mL nebulization #540 mL soln umeclidinium 62.5 mcg/actuation 1 inh inhalation DAILY #30 ea 10/12/21 blister powder for inhalation (Incruse Ellipta) Allergies Allergy/AdvReac Type Severity Reaction Status Date / Time amoxicillin Allergy Skin Rash Unverified 10/12/21 11:29 Sulfa (Sulfonamide Allergy Unverified 10/12/21 11:29 Antibiotics) varenicline [From Chantix] AdvReac Mild Nightmares Verified 10/12/21 11:48 Antiobiotics AdvReac Intermediate Rash,vomitt Uncoded 08/18/21 09:53 ing General HEATHER: 2 Review of Systems Narrative: Review of Systems Constitutional: negative Eyes: negative ENT: negative Cardiovascular: negative Respiratory: Shortness of breath, cough Gastrointestinal: negative : negative Musculoskeletal: negative Skin: negative Neurologic: negative Psych: negative PFSH All Active Problems (Updated 11/04/21 @ 07:53 by Rajendra Ying MD) Dyspnea (Acute) Medication monitoring encounter (Acute) Pneumonia (Acute) Contraceptive management (Acute) COPD (chronic obstructive pulmonary disease) (Chronic) GERD (gastroesophageal reflux disease) (Chronic) Abnormal uterine bleeding (Acute) Mood disorder (Acute) Hypercalcemia (Acute) HTN (hypertension) (Chronic) HELEN (obstructive sleep apnea) (Chronic) DVT prophylaxis (Acute) Tobacco abuse (Chronic) Diabetes mellitus (Chronic) COPD with acute exacerbation (Acute) Primary osteoarthritis of both knees (Chronic 05/01/15) Medical History (Updated 11/04/21 @ 07:53 by Rajendra Ying MD) Chronic atrophic candidosis Depression with anxiety Diabetes mellitus type 2 in obese Hyperlipidemia Morbid obesity HELEN (obstructive sleep apnea) Smoker Surgical History Bilat partial saplinectomy Cholecystectomy (12/07/15) LAPAROSCOPIC WITH INTRAOPERATIVE CHOLANGIOGRAM/[facility] Ligation of fallopian tube Open Carpal Tunnel release Repair of umbilical hernia Tonsillectomy and adenoidectomy Family History Other COPD (chronic obstructive pulmonary disease) Cancer Social History Smoking/Tobacco Use Status: Former Tobacco Use Quit status: considering quitting Second Hand Exposure: Yes Smoking risk assessment performed?: Yes Alcohol Intake: never Drug use: Never Substance use type: does not use, opiates and painkillers Current gender identity: female Do you feel safe at home: Yes Do you feel safe in your relationship?: Yes Additional Social history: Lives with her male partner, who also smokes. Disabled. History History 5 Para 2 Hx # Term Pregnancies Multiple births Hx # Pregnancies Ectopic pregnancies AB induced Hx Number of Living Children AB spontaneous Exam Narrative Exam Narrative: Physical Examination General: alert, awake, cooperative, moderately uncomfortable HEENT: normocephalic, atraumatic; PERRL, EOM intact, conjunctiva normal; no nasal discharge; moist mucous membranes, oral and pharyngeal mucosa normal, tolerating secretions Neck: supple, trachea midline; full ROM Chest: normal to inspection Respiratory: Tachypnea, speaking in short sentences, bilateral expiratory wheeze Cardiac: regular rate, regular rhythm, S1S2 intact, no murmurs rubs or gallops GI: abdomen soft, non-tender, non-distended; no palpable mass or hepatosplenomegaly Skin: no lesions, rashes or trauma appreciated Neuro: AAOx3, normal speech, moving all extremities Psych: Appropriate mood and affect
[2021-11-04] MEDS: Albuterol/Ipratropium 3 ML UPD VIAL 9 ML UPD (07:50)
[2021-11-04 08:02] LABS: Abs Immature Grans 0.09 10^3/uL (0.0-0.06); Absolute Basophil Count 0.03 10^3/uL (0.0-0.2); Absolute Lymphocyte Count 1.38 10^3/uL (1.2-3.4); Absolute Monocyte Count 0.91 10^3/uL (0.1-0.8); Absolute Neutrophil Count 7.59 10^3/uL (1.2-6.7); Basophils % 0.3; HCT 51.5 % (36.0-46.0); HGB 16.3 g/dL (11.2-15.7); Immature Grans % 0.9; Lymphocytes % 13.8; MCH 30.8 pg (27.0-33.0); MCHC 31.7 % (32.0-36.0); MCV 97 fL (80-95); MPV 9.2 fL (8.0-11.0); Monocytes % 9.1; Neutrophils % 75.9; Platelet Count 194 10^3/uL (130-400); RBC 5.29 10^6/uL (3.93-5.22); RDW 14.6 % (11.7-14.6)
[2021-11-04 08:14] LABS: Source Nasal/Nares
[2021-11-04] MEDS: Normal Saline 250 ML IV (08:17)
[2021-11-04] MEDS: methylPREDNISolone SUCC 125 MG VIAL IVP (08:18)
[2021-11-04 08:30] LABS: ALT 17 U/L (14-59); AST 19 U/L (15-37); Albumin 3.8 g/dL (3.4-5.0); Alkaline Phosphatase 79 U/L (46-116); Anion Gap 5.6 mmol/L (3-11); BUN 12 mg/dL (7-18); Bilirubin, Total 0.6 mg/dL (0.2-1.0); CO2 34.4 mmol/L (21.0-32.0); CREATININE 0.7 mg/dL (0.55-1.02); Calcium 10.3 mg/dL (8.5-10.1); Chloride 100 mmol/L (98-107); Glucose 148 mg/dL (74-106); NT-proBNP 393 pg/mL (<300); Potassium 4.1 mmol/L (3.5-5.1); Sodium 140 mmol/L (136-145); Total Protein 8.7 g/dL (6.4-8.2)
[2021-11-04] MEDS: Albuterol 2.5 MG/3 ML INH SOLN VIAL (08:30)
--- NOTE | 2021-11-04 08:31 | W.EDPROG ---
Date of service: 11/04/21 Time of Service: 08:00 Medical Decision Making 0800 -- please see Dr. Ying's note for initial presentation, exam and plan. 51-year-old female with a history of COPD chronically on 2 L nasal cannula oxygen and chronic zithromax per pulmonology presents for increasing shortness of breath and cough with green sputum over the past several days. She has needed to increase her nasal cannula oxygen to 3 L. Her baseline oxygen saturation is usually 94 to 95% on 2 L. She states she feels 25% better after 3 duo nebs here. She has scattered wheezing throughout. Her oxygen saturation is currently 91% on 12 L. She was titrated down to 6 L and remains between 89 and 91%. She states her grandson was recently diagnosed with COVID. She is fully vaccinated for COVID. She denies any known fevers. Suspect COPD exacerbation. Consider COVID, pneumonia or less likely CHF exacerbation. History and presentation does not appear consistent with ACS or PE. Will give a 5 mg albuterol neb. 125mg Solu-Medrol IV ordered. Labs and COVID pending. Portable chest pending. 1000 -- ABG notes a pH of 7.34, PCO2 59, PO2 52. Oxygen saturation 88% on 6 L. She was given another neb and increased to 89-90% on 6 L. Patient states she feels 30% better. She still has some increased work of breathing and recommended that we start BiPAP. She states she has not felt comfortable with BiPAP in the past. She was most recently admitted in August 2021 for acute CHF and acute COPD. Labs and imaging reviewed. Covid negative. She has a normal white blood cell count. BNP 393 which has been 709 100 in the past. Chest x-ray notes a questionable right lower lobe pneumonia. EKG obtained which notes sinus tachycardia with a QTC of 455. She is taking chronically per Dr. Johnston. We will give Levaquin and Lasix IV. Patient willing to try BiPAP but she appears to be tolerating well. Will admit for continued monitoring, nebs, steroids, antibiotics. 1100 -- Case discussed with hospitalist team who accepts patient for admission. 1145 -- patient is requesting trial of BiPAP. She is 94% on 6 L, will continue to titrate down. Confirmed with patient at bedside and she is adamant that she is DNI but not DNR. Medical Records Medical records reviewed: Yes I reviewed the patient's medical records. Imaging Data Radiologic Study: Radiologist's impression: XR Chest Exam date and time: 11/04/2021 8:45 AM Age: 51 years old Clinical indication: Other: SOB, copd TECHNIQUE: Imaging protocol: Radiologic exam of the chest. Views: 1 view. COMPARISON: CT CHEST LUNG CANCER SCREEN 10/26/2021 10:13 FINDINGS: Lungs: See Heart/Mediastinum finding. Pleural spaces: The costophrenic angles are blunted especially on the right suggesting possible small effusions. Heart/Mediastinum: The heart is mildly enlarged. Pulmonary arteries are quite prominent bilaterally raising the possibility of pulmonary arterial hypertension. The lungs show some slightly increased markings in the bases which appear to be new compared to recent CT scan. Upper lung zones remain clear. Vasculature: Aorta is tortuous. Bones/joints: Unremarkable. IMPRESSION: Increased markings in the lung bases could represent early infiltrate or pulmonary edema.? Lab Data Lab results reviewed: Yes I reviewed the patient's lab results. Labs: Laboratory Tests Range/Units 11/04/21 11/04/21 11/04/21 07:55 07:55 07:55 WBC (4.4-10.8) 10^3/uL 10.00 RBC (3.93-5.22) 10^6/uL 5.29 H Hgb (11.2-15.7) g/dL 16.3 H Hct (36.0-46.0) % 51.5 H MCV (80-95) fL 97 H MCH (27.0-33.0) pg 30.8 MCHC (32.0-36.0) % 31.7 L RDW (11.7-14.6) % 14.6 Plt Count (130-400) 10^3/uL 194 MPV (8.0-11.0) fL 9.2 Immature Gran % 0.9 Neutrophils % 75.9 Lymphocytes % 13.8 Monocytes % 9.1 Eosinophils % 0.0 Basophils % 0.3 Nucleated RBC % (0.0-0.3) % 0.0 Absolute Neutrophils (1.2-6.7) 10^3/uL 7.59 H Absolute Lymphocytes (1.2-3.4) 10^3/uL 1.38 Absolute Monocytes (0.1-0.8) 10^3/uL 0.91 H Absolute Eosinophils (0.0-0.7) 10^3/uL 0.00 Absolute Basophils (0.0-0.2) 10^3/uL 0.03 ABG Sample Site ABG pH (7.35-7.45) ABG pCO2 (35-45) mmHg ABG pO2 (80-105) mmHg ABG HCO3 (22-26) mmol/L ABG Total CO2 (23-27) mmol/L ABG O2 Saturation (95-98) % ABG Base Excess (-2-3) mmol/L Oxygen Liter Flow L Sodium (136-145) mmol/L 140 Potassium (3.5-5.1) mmol/L 4.1 Chloride (98-107) mmol/L 100 Carbon Dioxide (21.0-32.0) mmol/L 34.4 H Anion Gap (3-11) mmol/L 5.6 BUN (7-18) mg/dL 12 Creatinine (0.55-1.02) mg/dL 0.7 Est GFR (CKD-EPI 2020) (mL/min/1.73m2) 104.00 Glucose (74-106) mg/dL 148 H Calcium (8.5-10.1) mg/dL 10.3 H Total Bilirubin (0.2-1.0) mg/dL 0.6 AST (15-37) U/L 19 ALT (14-59) U/L 17 Alkaline Phosphatase (46-116) U/L 79 Troponin I (<or=60) ng/L < 50 NT-Pro-B Natriuret Pep (<300) pg/mL 393 H Total Protein (6.4-8.2) g/dL 8.7 H Albumin (3.4-5.0) g/dL 3.8 COVID-19 Source SARS-CoV-2 (PCR) (Negative) Range/Units 11/04/21 11/04/21 11/04/21 08:09 08:10 10:00 WBC (4.4-10.8) 10^3/uL RBC (3.93-5.22) 10^6/uL Hgb (11.2-15.7) g/dL Hct (36.0-46.0) % MCV (80-95) fL MCH (27.0-33.0) pg MCHC (32.0-36.0) % RDW (11.7-14.6) % Plt Count (130-400) 10^3/uL MPV (8.0-11.0) fL Immature Gran % Neutrophils % Lymphocytes % Monocytes % Eosinophils % Basophils % Nucleated RBC % (0.0-0.3) % Absolute Neutrophils (1.2-6.7) 10^3/uL Absolute Lymphocytes (1.2-3.4) 10^3/uL Absolute Monocytes (0.1-0.8) 10^3/uL Absolute Eosinophils (0.0-0.7) 10^3/uL Absolute Basophils (0.0-0.2) 10^3/uL ABG Sample Site Left Radial ABG pH (7.35-7.45) 7.34 L ABG pCO2 (35-45) mmHg 59 H ABG pO2 (80-105) mmHg 52 L ABG HCO3 (22-26) mmol/L 31 H ABG Total CO2 (23-27) mmol/L 28 H ABG O2 Saturation (95-98) % 90 L ABG Base Excess (-2-3) mmol/L 6 H Oxygen Liter Flow L 6 Sodium (136-145) mmol/L Potassium (3.5-5.1) mmol/L Chloride (98-107) mmol/L Carbon Dioxide (21.0-32.0) mmol/L Anion Gap (3-11) mmol/L BUN (7-18) mg/dL Creatinine (0.55-1.02) mg/dL Est GFR (CKD-EPI 2020) (mL/min/1.73m2) Glucose (74-106) mg/dL Calcium (8.5-10.1) mg/dL Total Bilirubin (0.2-1.0) mg/dL AST (15-37) U/L ALT (14-59) U/L Alkaline Phosphatase (46-116) U/L Troponin I (<or=60) ng/L NT-Pro-B Natriuret Pep (<300) pg/mL Cancelled Total Protein (6.4-8.2) g/dL Albumin (3.4-5.0) g/dL COVID-19 Source Nasal/Nares SARS-CoV-2 (PCR) (Negative) Negative ECG Data Attestation: I personally reviewed and interpreted this ECG (s) as follows: Interpretation: rate of 109, sinus, no stemi. Exam Const General: cooperative Orientation: alert, awake and oriented x3 HENMT Head: normal to inspection Ears: hearing grossly normal bilaterally and external ears normal General nose exam: external nose normal Face and sinus: normal facial exam Eyes General: appearance normal, both eyes and all related structures Eyelids: eyelids normal Pupils: PERRL EOM: EOM intact bilaterally Neck Neck: normal visual inspection Lymphatic: no lymphadenopathy noted Chest Chest: normal inspection of the chest Resp Effort & Inspection: normal respiratory effort and able to speak in complete sentences Auscultation: wheezes expiratory wheezes and inspiratory wheezes Cardio Rate: tachycardic Rhythm: regular rhythm GI Inspection: normal to inspection and obesity Palpation: soft, not firm, no guarding, no hepatosplenomegaly, no masses and nontender Auscultation: normal bowel sounds Skin General skin exam: no rashes or lesions noted Neuro General: patient alert and patient awake Cognition: normal cognition Speech: speech normal Gait: normal gait Motor: muscle tone normal throughout Sensory Exam: no sensory deficits noted Extrem General: normal to inspection, full ROM, capillary refill normal and no edema Psych Appearance: grossly normal Mental Status: mental status grossly normal Speech and Movement: speech and movement normal Affect: normal affect Thought Process: normal Sign Out Sign Out Data: Sign Out Comment: COPD exacerbation; pending reassessment after meds and xray Last updated by Rajendra Ying MD at 11/04/21 07:54 Discharge Plan Disposition Patient Disposition: [facility] INPATIENT Condition: Stable Discharge Details Clinical Impression: COPD with acute exacerbation, Pneumonia Primary Care Provider: Maria Del Carmen Nogueira ED Provider: Madiha Jarvis Home Meds and New Rx's Prescriptions: No Action rosuvastatin 40 mg tablet 40 mg PO HS Incruse Ellipta 62.5 mcg/actuation blister with device 1 inh inhalation DAILY Qty: 30 6RF desvenlafaxine succinate [Pristiq] 100 MG tablet extended release 24 hr 100 mg PO DAILY albuterol sulfate 8.5 GM HFA aerosol inhaler 1 - 2 puff Inhalation Q4H PRN gabapentin 300 MG capsule 900 mg PO HS atenolol 50 MG tablet 50 mg PO DAILY aripiprazole [Abilify] 10 MG tablet 10 mg PO DAILY nystatin 1 EACH powder 1 ea PO TID PRN fenofibrate 160 MG tablet 160 mg PO DAILY pantoprazole [Protonix] [address] for susp in packet 40 mg PO DAILY lisinopril 20 MG tablet 40 mg PO DAILY ipratropium-albuterol 0.5 mg-3 mg(2.5 mg base)/3 mL solution for nebulization 3 ml inhalation Q4H PRN (Reason: wheezing) Qty: 540 12RF Jardiance 10 mg Tablet 10 mg PO QAM Qty: 30 0RF magnesium oxide 400 mg (241.3 mg magnesium) Tablet 400 mg PO HS Qty: 30 0RF azithromycin [Zithromax] 250 mg tablet 1 tab PO DAILY Label Comments: 1 tablet by mouth once a day torsemide 20 mg tablet 20 tab PO DAILY Label Comments: TAKE 1 TABLET BY MOUTH ONCE DAILY oxycodone-acetaminophen 10-325 mg Tablet 1 tab PO QID PRN PRN (Reason: Pain) naloxone [Narcan] 4 mg/actuation [place],Non-Aerosol 4 mg Intranasal PRN PRN (Reason: excessive sedation) methylphenidate HCl [Ritalin] 20 mg Tablet 20 mg PO BID insulin aspart U-100 [Novolog Flexpen U-100 Insulin] 100 unit/mL (3 mL) insulin pen 0 sliding scale dose SUBCUT AC Rx Instructions: MAXIMUM OF 50 UNITS PER 24 HOURS bupropion HCl 200 mg tablet sustained-release 12 hr 200 mg PO QAM Label Comments: TAKE 1 TABLET BY MOUTH ONCE DAILY IN THE MORNING Januvia 100 mg tablet 100 mg PO DAILY Levemir FlexTouch U-100 Insuln 100 unit/mL (3 mL) insulin pen 12 unit SUBCUT DAILY Advair HFA 230-21 mcg/actuation HFA aerosol inhaler 1 puff INHALATION BID
[2021-11-04 08:51] LABS: COVID-19 PCR Negative (Negative)
[2021-11-04] MEDS: MORPHine 4 MG/ML SYR IVP ×2 (09:21→11:58)
[2021-11-04] MEDS: Albuterol 2.5 MG/3 ML INH SOLN VIAL 5 MG UPD (09:28)
--- NOTE | 2021-11-04 09:28 | DI.VRAD_ITS ---
PROCEDURE INFORMATION: Exam: XR Chest Exam date and time: 11/04/2021 8:45 AM Age: 51 years old Clinical indication: Other: SOB, copd TECHNIQUE: Imaging protocol: Radiologic exam of the chest. Views: 1 view. COMPARISON: CT CHEST LUNG CANCER SCREEN 10/26/2021 10:13 FINDINGS: Lungs: See Heart/Mediastinum finding. Pleural spaces: The costophrenic angles are blunted especially on the right suggesting possible small effusions. Heart/Mediastinum: The heart is mildly enlarged. Pulmonary arteries are quite prominent bilaterally raising the possibility of pulmonary arterial hypertension. The lungs show some slightly increased markings in the bases which appear to be new compared to recent CT scan. Upper lung zones remain clear. Vasculature: Aorta is tortuous. Bones/joints: Unremarkable. IMPRESSION: Increased markings in the lung bases could represent early infiltrate or pulmonary edema. Dictated and Authenticated by: Edgard Arnold MD. Ordering:CELESTE Drew MD
--- NOTE | 2021-11-04 09:45 | RT.EKG_ITS ---
APPROVED REPORT Exam: Resting ECG Reason for Exam: sob Patient Location: E HR:109 bpm ECG Measurements Heart Rate 109 AXIS PA 176 P 56 QRSd 95 QRS -5 QT 338 T 32 QTc 455 Conclusion Sinus tachycardia...rate> 99. Sinus. No STEMI. I have reviewed and interpreted ECG and agree with software generated interpretation.
[2021-11-04 10:02] LABS: BE 6 mmol/L (-2-3); HCO3 31 mmol/L (22-26); pCO2 59 mmHg (35-45); pH 7.34 (7.35-7.45); pO2 52 mmHg (80-105); sO2 90 % (95-98); tCO2 28 mmol/L (23-27)
[2021-11-04 10:04] LABS: FIO2L 6 L; Site Left Radial
[2021-11-04] MEDS: Furosemide 40 MG/4 ML VIAL IVP (10:18)
[2021-11-04] MEDS: levoFLOXacin 750 MG/150 ML BAG 100 MG IVPB (10:24)
[2021-11-04 10:45] LABS: Troponin I < 50 ng/L (<or=60)
--- NOTE | 2021-11-04 11:44 | HPE_ITS ---
Date of service: 11/04/21 Time of Service: 11:44 Assessment and Plan Assessment and plan (1) Acute on chronic respiratory failure with hypoxia and hypercapnia: Status: Resolved Assessment and plan: Improved and now weaned off bipap after receiving IV steroids, lasix and antibiotics Likely multifactoral and related to fluid overload and COPD exacerbation with history of going tobacco abuse with HELEN and likely obesity hypoventilation syndrome. chronically on 2 liter nc at home which she increased to 3 liters after falling ill on friday. COVID PCR was negative- she did have a close family contact tested positive for COVID last week (2) Acute exacerbation of CHF (congestive heart failure): Status: Resolved Assessment and plan: Echo on 08/13/21: Mild concentric left ventricular hypertrophy.? Estimated ejection fraction is 55%.? No segmental wall motion abnormalities are identified Normal right ventricular size and systolic function. RVSP of 40mmHg. Given IV lasix in the ED will monitor urine output, daily wts and bmp will resume home torsemide in am. (3) COPD with acute exacerbation: Status: Acute Assessment and plan: Schedule duonebs. PRN albuterol. Symbicort Spiriva. received IV solumedrol in ED will continue with prednisone burst 40 mg daily takes azithromycin prophylaxis daily, broadened to levofloxacin. (4) Tobacco abuse: Status: Chronic Assessment and plan: Nicotine patch. (5) Diabetes mellitus type 2 in obese: Assessment and plan: anticipate hyperglycemia in setting of steroids continue home basal insulin, Increase SS insulin to resistant. adjust as needed, consider adding NPH if needed Monitor closely. (6) DVT prophylaxis: Status: Acute Assessment and plan: enoxaparin, teds (7) Discharge planning issues: Status: Deleted Assessment and plan: anticipate dc to home with resumption of HH services once medically stable. discussed with DR Gonzalez History of Present Illness History of Present Illness Chief Complaint: shortness of breath Narrative: Is a 51-year-old female patient with significant respiratory history who is on chronic oxygen at home who states Friday she first developed nasal congestion and then the increased shortness of breath productive cough stating that it settled into my chest she states that she increased her home oxygen from 2 L to 3 L nasal cannula. She has been taking azithromycin as directed by Dr. Johnston she denies any fever. States her appetite and intake have been poor due to her increased respiratory distress. [facility] for evaluation she was started on levofloxacin and given IV steroids. She was also given IV furosemide 40 mg for concern of fluid overload by her x-ray. Hospitalist services was contacted and she was accepted for inpatient admission for acute hypoxic respiratory failure Review of Systems All systems reviewed & are unremarkable except as noted in HPI and below Constitutional Constitutional: Denies fever(s) ENT Ears, Nose, Mouth, and Throat: Denies dizziness Cardiovascular Cardiovascular: Denies chest pain, Reports dyspnea and Reports dyspnea on exertion Respiratory Respiratory: Reports cough, Reports excessive phlegm production, Reports dyspnea and Reports dyspnea on exertion Gastrointestinal Gastrointestinal: Denies abdominal pain Neurologic Neurologic: Denies dizziness PFSH All Active Problems (Updated 11/04/21 @ 10:26 by Madiha Jarvis DO) Pneumonia (Acute) Dyspnea (Acute) Medication monitoring encounter (Acute) Pneumonia (Acute) Contraceptive management (Acute) COPD (chronic obstructive pulmonary disease) (Chronic) GERD (gastroesophageal reflux disease) (Chronic) Abnormal uterine bleeding (Acute) Mood disorder (Acute) Hypercalcemia (Acute) HTN (hypertension) (Chronic) HELEN (obstructive sleep apnea) (Chronic) DVT prophylaxis (Acute) Tobacco abuse (Chronic) Diabetes mellitus (Chronic) COPD with acute exacerbation (Acute) Primary osteoarthritis of both knees (Chronic 05/01/15) Medical History (Updated 11/04/21 @ 10:26 by Madiha Jarvis DO) Chronic atrophic candidosis Depression with anxiety Diabetes mellitus type 2 in obese Hyperlipidemia Morbid obesity HELEN (obstructive sleep apnea) Smoker Surgical History Bilat partial saplinectomy Cholecystectomy (12/07/15) LAPAROSCOPIC WITH INTRAOPERATIVE CHOLANGIOGRAM/[facility] Ligation of fallopian tube Open Carpal Tunnel release Repair of umbilical hernia Tonsillectomy and adenoidectomy Family History Other COPD (chronic obstructive pulmonary disease) Cancer Social History Smoking/Tobacco Use Status: Former Tobacco Use Quit status: considering quitting Second Hand Exposure: Yes Smoking risk assessment performed?: Yes Alcohol Intake: never Drug use: Never Substance use type: does not use, opiates and painkillers Current gender identity: female Do you feel safe at home: Yes Do you feel safe in your relationship?: Yes Additional Social history: Lives with a roomate, Douglas Harmon. History History 5 Para 2 Hx # Term Pregnancies Multiple births Hx # Pregnancies Ectopic pregnancies AB induced Hx Number of Living Children AB spontaneous Meds Allergies and Home Medications Allergies Allergy/AdvReac Type Severity Reaction Status Date / Time amoxicillin Allergy Skin Rash Unverified 10/12/21 11:29 Sulfa (Sulfonamide Allergy Unverified 10/12/21 11:29 Antibiotics) varenicline [From Chantix] AdvReac Mild Nightmares Verified 10/12/21 11:48 Antiobiotics AdvReac Intermediate Rash,vomitt Uncoded 08/18/21 09:53 ing Home Medications Medication Instructions Recorded Confirmed Type albuterol sulfate 90 mcg/actuation 1 - 2 puff inhalation Q4H PRN 03/21/14 11/04/21 History aerosol inhaler desvenlafaxine succinate 100 mg 100 mg PO DAILY 03/21/14 11/04/21 History tablet,extended release 24 hr (Pristiq) aripiprazole 10 mg tablet (Abilify) 10 mg PO DAILY 04/22/17 11/04/21 History atenolol 50 mg tablet 50 mg PO DAILY 04/22/17 11/04/21 History fenofibrate 160 mg tablet 160 mg PO DAILY 04/22/17 11/04/21 History gabapentin 300 mg capsule 900 mg PO HS 04/22/17 11/04/21 History nystatin 500 million unit oral 1 ea PO TID PRN 04/22/17 11/04/21 History powder pantoprazole 40 mg granules 40 mg PO DAILY 04/22/17 11/04/21 History delayed-release for susp in packet (Protonix) lisinopril 20 mg tablet 40 mg PO DAILY 04/23/17 11/04/21 History naloxone 4 mg/actuation nasal 4 mg intranasal PRN PRN excessive 04/29/18 11/04/21 History spray (Narcan) sedation oxycodone-acetaminophen 10 mg-325 1 tab PO QID PRN PRN Pain 04/29/18 11/04/21 History mg tablet methylphenidate HCl 20 mg tablet 20 mg PO BID 11/15/18 11/04/21 History (Ritalin) rosuvastatin 40 mg tablet 40 mg PO HS 04/12/19 11/04/21 History bupropion HCl 200 mg tablet,12 hr 200 mg PO QAM 01/15/21 11/04/21 History sustained-release fluticasone propionate 230 1 puff inhalation BID 01/15/21 10/12/21 History mcg-salmeterol 21 mcg/actuation HFA inhaler (Advair HFA) insulin aspart U-100 100 unit/mL 0 sliding scale dose subcut AC 01/15/21 11/04/21 History (3 mL) subcutaneous pen (Novolog Flexpen U-100 Insulin aspart) insulin detemir U-100 100 unit/mL 12 unit subcut HS 01/15/21 11/04/21 History (3 mL) subcutaneous pen (Levemir FlexTouch U-100 Insulin) sitagliptin 100 mg tablet (Januvia) 100 mg PO DAILY 01/15/21 11/04/21 History empagliflozin 10 mg tablet 10 mg PO QAM #30 tabs 08/22/21 11/04/21 Rx (Jardiance) magnesium oxide 400 mg (241.3 mg 400 mg PO HS #30 tabs 08/22/21 11/04/21 Rx magnesium) tablet ipratropium 0.5 mg-albuterol 3 mg 3 ml inhalation Q4H PRN wheezing 10/12/21 11/04/21 Rx (2.5 mg base)/3 mL nebulization #540 mL soln umeclidinium 62.5 mcg/actuation 1 inh inhalation DAILY #30 ea 10/12/21 11/04/21 Rx blister powder for inhalation (Incruse Ellipta) azithromycin 250 mg tablet 1 tab PO DAILY 11/04/21 11/04/21 History (Zithromax) gabapentin 300 mg capsule mg 11/04/21 History torsemide 20 mg tablet 20 mg PO DAILY 11/04/21 11/04/21 History Exam Const General: cooperative, frail appearing and ill appearing chronically Nutritional Appearance: obese Orientation: alert, awake and oriented x3 HENMT Head: normal to inspection, normocephalic and atraumatic Mouth: moist mucous membranes abnormal (dry) Chest Chest: normal inspection of the chest Resp Effort & Inspection: cough Quality of cough: productive, labored and tachypneic Auscultation: diminished lung sounds and no wheezes Cardio Rate: regular rate Rhythm: regular rhythm GI Palpation: soft Auscultation: normal bowel sounds Skin General skin exam: no rashes or lesions noted Neuro General: patient alert, patient awake and patient oriented x3 Results Labs Result diagrams: 11/04/21 07:55 11/04/21 07:55 Labs: Laboratory Results - last 24 hr 11/04/21 11/04/21 11/04/21 07:55 07:55 07:55 WBC 10.00 RBC 5.29 H Hgb 16.3 H Hct 51.5 H MCV 97 H MCH 30.8 MCHC 31.7 L RDW 14.6 Plt Count 194 MPV 9.2 Immature Gran % 0.9 Neutrophils % 75.9 Lymphocytes % 13.8 Monocytes % 9.1 Eosinophils % 0.0 Basophils % 0.3 Nucleated RBC % 0.0 Absolute Neutrophils 7.59 H Absolute Lymphocytes 1.38 Absolute Monocytes 0.91 H Absolute Eosinophils 0.00 Absolute Basophils 0.03 ABG Sample Site ABG pH ABG pCO2 ABG pO2 ABG HCO3 ABG Total CO2 ABG O2 Saturation ABG Base Excess Oxygen Liter Flow Sodium 140 Potassium 4.1 Chloride 100 Carbon Dioxide 34.4 H Anion Gap 5.6 BUN 12 Creatinine 0.7 Est GFR (CKD-EPI 2020) 104.00 Glucose 148 H Calcium 10.3 H Total Bilirubin 0.6 AST 19 ALT 17 Alkaline Phosphatase 79 Troponin I < 50 NT-Pro-B Natriuret Pep 393 H Total Protein 8.7 H Albumin 3.8 COVID-19 Source SARS-CoV-2 (PCR) 11/04/21 11/04/21 11/04/21 08:09 08:10 10:00 WBC RBC Hgb Hct MCV MCH MCHC RDW Plt Count MPV Immature Gran % Neutrophils % Lymphocytes % Monocytes % Eosinophils % Basophils % Nucleated RBC % Absolute Neutrophils Absolute Lymphocytes Absolute Monocytes Absolute Eosinophils Absolute Basophils ABG Sample Site Left Radial ABG pH 7.34 L ABG pCO2 59 H ABG pO2 52 L ABG HCO3 31 H ABG Total CO2 28 H ABG O2 Saturation 90 L ABG Base Excess 6 H Oxygen Liter Flow 6 Sodium Potassium Chloride Carbon Dioxide Anion Gap BUN Creatinine Est GFR (CKD-EPI 2020) Glucose Calcium Total Bilirubin AST ALT Alkaline Phosphatase Troponin I NT-Pro-B Natriuret Pep Cancelled Total Protein Albumin COVID-19 Source Nasal/Nares SARS-CoV-2 (PCR) Negative Last Vital Signs Temp 37.1 C 11/04/21 07:35 Pulse 105 H 11/04/21 11:00 Resp 33 H 11/04/21 11:00 BP 190/97 H 11/04/21 11:00 Pulse Ox 91 L 11/04/21 10:05
[2021-11-04] MEDS: Atenolol 50 MG TAB PO (13:54)
[2021-11-04] MEDS: Lisinopril 20 MG TAB 40 MG PO (13:54)
[2021-11-04] MEDS: Albuterol/Ipratropium 3 ML UPD VIAL UPD ×3 (13:54→21:18)
[2021-11-04] MEDS: Nicotine 14 MG/24 HR PATCH TD (16:47)
[2021-11-04] MEDS: Insulin Aspart 300 UNITS/3 ML PEN SC ×2 (16:48→21:28)
[2021-11-04] MEDS: LORazepam 20 MG/10 ML VIAL IVP (18:09)
[2021-11-04] MEDS: Normal Saline Flush 10 ML SYR (18:10)
[2021-11-04] MEDS: oxyCODONE 5 mg/Acetaminophen 325 mg TAB 1 TAB PO (18:59)
[2021-11-04] MEDS: oxyCODONE 5 MG TAB PO (18:59)
[2021-11-04] MEDS: Gabapentin 300 MG CAP 900 MG PO (21:17)
[2021-11-04] MEDS: Magnesium Oxide 400 MG TAB PO (21:17)
[2021-11-04] MEDS: Melatonin 3 MG TAB PO (21:17)
[2021-11-04] MEDS: Budesonide/Formoterol 160/4.5 6 GM 60 PUFF INH IH (21:18)
[2021-11-05] VITALS (8 sets, daily range): BP systolic 154–161; BP diastolic 87–91; PULSE 86–98; RESP 4–20; TEMP 36.8; O2SAT 90–97
[2021-11-05] MEDS: oxyCODONE 5 mg/Acetaminophen 325 mg TAB 1 TAB PO (03:38)
[2021-11-05] MEDS: Albuterol 2.5 MG/3 ML INH SOLN VIAL UPD (03:38)
[2021-11-05] MEDS: oxyCODONE 5 MG TAB PO (03:39)
[2021-11-05] MEDS: Nystatin POWDER 15 GM JAR TP (05:34)
[2021-11-05 07:15] LABS: Abs Immature Grans 0.07 10^3/uL (0.0-0.06); Absolute Basophil Count 0.02 10^3/uL (0.0-0.2); Absolute Lymphocyte Count 1.82 10^3/uL (1.2-3.4); Basophils % 0.2; HCT 50.8 % (36.0-46.0); HGB 16.6 g/dL (11.2-15.7); Immature Grans % 0.6; Lymphocytes % 15.2; MCH 30.7 pg (27.0-33.0); MCHC 32.7 % (32.0-36.0); MCV 94 fL (80-95); MPV 9.5 fL (8.0-11.0); Monocytes % 10.8; Neutrophils % 73.2; Platelet Count 203 10^3/uL (130-400); RBC 5.41 10^6/uL (3.93-5.22); RDW 14.5 % (11.7-14.6); RDW-SD 50.4 fL
[2021-11-05 07:20] LABS: Absolute Neutrophil Count 8.78 10^3/uL (1.2-6.7)
[2021-11-05 07:43] LABS: Anion Gap 5.6 mmol/L (3-11); BUN 22 mg/dL (7-18); CO2 33.4 mmol/L (21.0-32.0); CREATININE 0.7 mg/dL (0.55-1.02); Calcium 10.9 mg/dL (8.5-10.1); Chloride 99 mmol/L (98-107); Glucose 141 mg/dL (74-106); Potassium 3.8 mmol/L (3.5-5.1); Sodium 138 mmol/L (136-145)
[2021-11-05] MEDS: SITagliptin 100 MG TAB PO (08:23)
[2021-11-05] MEDS: Enoxaparin 40 MG/0.4 ML SYR SC (08:23)
[2021-11-05] MEDS: Torsemide 20 MG TAB PO (08:24)
[2021-11-05] MEDS: Methylphenidate 10 MG TAB 20 MG PO (08:24)
[2021-11-05] MEDS: ARIPiprazole 5 MG TAB 10 MG PO (08:24)
[2021-11-05] MEDS: predniSONE 20 MG TAB 40 MG PO (08:24)
[2021-11-05] MEDS: Lisinopril 20 MG TAB 40 MG PO (08:24)
[2021-11-05] MEDS: Empaglifozin 10 MG TAB PO (08:25)
[2021-11-05] MEDS: Fenofibrate, Micronized 145 MG TAB PO (08:25)
[2021-11-05] MEDS: Atenolol 50 MG TAB PO (08:25)
[2021-11-05] MEDS: buPROPion-CR 100 MG TABCR 200 MG PO (08:25)
[2021-11-05] MEDS: Nicotine 14 MG/24 HR PATCH TD (08:25)
[2021-11-05] MEDS: Pantoprazole 40 MG TABCR PO (08:25)
[2021-11-05] MEDS: Umeclidinium 7 CAP INHALER 1 CAP IH (09:32)
[2021-11-05] MEDS: Budesonide/Formoterol 160/4.5 6 GM 60 PUFF INH IH (09:32)
[2021-11-05] MEDS: Albuterol/Ipratropium 3 ML UPD VIAL UPD ×2 (09:35→13:02)
[2021-11-05] MEDS: levoFLOXacin 500 MG, levoFLOXacin 250 MG 750 MG PO (09:54)
[2021-11-05] MEDS: Insulin Aspart 300 UNITS/3 ML PEN SC (11:45)
--- NOTE | 2021-11-05 13:11 | DSE_ITS ---
DS: Diagnosis Discharge Diagnosis (1) Acute on chronic respiratory failure with hypoxia and hypercapnia: Status: Resolved (2) Acute exacerbation of CHF (congestive heart failure): Status: Resolved (3) COPD with acute exacerbation: Status: Acute (4) Tobacco abuse: Status: Chronic (5) Diabetes mellitus type 2 in obese: Discharge Plan Disposition Patient Disposition: HOME Condition: Stable Discharge Details Reason For Visit: COPD Exacerbation,Hypoxemia Admit Date/Time: 11/04/21 11:40 Admit Provider: Sebastian Gonzalez Attending Provider: Sebastian Gonzalez Primary Care Provider: Maria Del Carmen Nogueira Hospital Course Hospital Course: This is a 51-year-old female patient with a significant respiratory history who is on chronic oxygen at home who on Friday10/30/2021 developed nasal congestion and then increased shortness of breath, productive cough and stated that it settled into my chest she stated that she increased her home oxygen from 2 L to 3 L nasal cannula.? She had been taking azithromycin as directed by Dr. Lamar, she denied any fever.? She also stated her appetite and intake were poor due to her increased respiratory distress.? She presented to the [facility] emergency department for evaluation. She was started on levofloxacin and given IV steroids.? She was also given IV furosemide 40 mg for concern of fluid overload by her x-ray.? She was admitted to the medical floor for acute hypoxic respiratory failure. She was placed on BiPap, improved and weaned off after receiving IV steroids, lasix and antibiotics?Likely multifactoral and related to fluid overload and COPD exacerbation with history of ongoing tobacco abuse with HELEN and likely obesity hypoventilation syndrome. She is chronically on 2 liter nc at home which she increased to 3 liters after falling ill on Friday.? She improved rapidly and was at her baseline respiratory status and oxygen use and wished to go home.? She was stable, vital signs stable and has not had a fever. She is able to take oral medicine and does have home oxygen.? She was discharged to home on Levofloxacin 750 mg one every day for 5 more days and Prednisone 40 mg for [address] Gonzalez Home Meds and New Rx's Prescriptions: New levofloxacin 750 mg Tablet 750 mg PO Q24H Qty: 5 0RF prednisone 20 mg Tablet 40 mg PO DAILY Qty: 8 0RF Continued rosuvastatin 40 mg tablet 40 mg PO HS Incruse Ellipta 62.5 mcg/actuation blister with device 1 inh inhalation DAILY Qty: 30 6RF desvenlafaxine succinate [Pristiq] 100 MG tablet extended release 24 hr 100 mg PO DAILY albuterol sulfate 8.5 GM HFA aerosol inhaler 1 - 2 puff Inhalation Q4H PRN gabapentin 300 MG capsule 900 mg PO HS atenolol 50 MG tablet 50 mg PO DAILY aripiprazole [Abilify] 10 MG tablet 10 mg PO DAILY nystatin 1 EACH powder 1 ea PO TID PRN fenofibrate 160 MG tablet 160 mg PO DAILY pantoprazole [Protonix] [address] for susp in packet 40 mg PO DAILY lisinopril 20 MG tablet 40 mg PO DAILY ipratropium-albuterol 0.5 mg-3 mg(2.5 mg base)/3 mL solution for nebulization 3 ml inhalation Q4H PRN (Reason: wheezing) Qty: 540 12RF Jardiance 10 mg Tablet 10 mg PO QAM Qty: 30 0RF magnesium oxide 400 mg (241.3 mg magnesium) Tablet 400 mg PO HS Qty: 30 0RF azithromycin [Zithromax] 250 mg tablet 1 tab PO DAILY Label Comments: 1 tablet by mouth once a day torsemide 20 mg tablet 20 mg PO DAILY Label Comments: TAKE 1 TABLET BY MOUTH ONCE DAILY gabapentin 300 mg capsule Label Comments: TAKE 3 CAPSULES BY MOUTH ONCE DAILY AT BEDTIME oxycodone-acetaminophen 10-325 mg Tablet 1 tab PO QID PRN PRN (Reason: Pain) naloxone [Narcan] 4 mg/actuation [place],Non-Aerosol 4 mg Intranasal PRN PRN (Reason: excessive sedation) methylphenidate HCl [Ritalin] 20 mg Tablet 20 mg PO BID insulin aspart U-100 [Novolog Flexpen U-100 Insulin] 100 unit/mL (3 mL) insulin pen 0 sliding scale dose SUBCUT AC Rx Instructions: MAXIMUM OF 50 UNITS PER 24 HOURS bupropion HCl 200 mg tablet sustained-release 12 hr 200 mg PO QAM Label Comments: TAKE 1 TABLET BY MOUTH ONCE DAILY IN THE MORNING Januvia 100 mg tablet 100 mg PO DAILY Levemir FlexTouch U-100 Insuln 100 unit/mL (3 mL) insulin pen 12 unit SUBCUT HS Advair HFA 230-21 mcg/actuation HFA aerosol inhaler 1 puff INHALATION BID Discharge Instructions Instructions: Prednisone (By mouth), Levofloxacin (By mouth), COPD (Chronic Obstructive Pulmonary Disease) (DC), Chronic Lung Disease and Infection Prevention (GEN) Additional Instructions: Take levofloxacin until completed. Continue using your oxygen and nebulizers as prior to hospitalization. Stand Alone Forms: Nursing Discharge Form Referrals: Maria Del Carmen Nogueira PA [Primary Care Provider] - 11/19/21 1:00 pm (Follow up in 1-2 weeks) Activity:: Activity as Tolerated Equipment/Supplies:: Oxygen (L/min Below) Diet:: As Tolerated Discharge Orders Discharge Orders: Discharge Order (Routine); Ordered 11/05/21 Ordered By: Keri Hernandez Discharge Data Discharge Date/Time-TO BE ENTERED AT DEPARTURE: 11/05/21 14:59 DS: Summary Time Spent with Patient providing and/or coordinating discharge services: Less than 30 minutes Status at Discharge Functional status at discharge: independent ambulation Overall status at discharge: patient is back to baseline Mental Status: mental status grossly normal Speech and Movement: speech and movement normal Mood: congruent mood Affect: normal affect Exam Psych Mental Status: mental status grossly normal Speech and Movement: speech and movement normal Mood: congruent mood Affect: normal affect DS: Data Vitals/I&O Vitals and I&O: Vital Signs Temperature 36.8 C 11/05/21 08:03 Temperature Source Tympanic 11/05/21 08:03 Pulse 89 11/05/21 13:02 Pulse Rhythm Regular 11/05/21 08:00 Pulse 101 H 11/04/21 12:01 Respiratory Rate 20 11/05/21 13:02 Respiratory Effort 11/05/21 08:00 Respiratory Depth Normal 11/05/21 08:00 Respiratory Pattern Normal 11/05/21 08:00 Blood Pressure 161/87 H 11/05/21 08:03 Blood Pressure Mean 112 11/04/21 12:01 Blood Pressure Position Sitting 11/04/21 07:35 Pulse Oximetry 92 11/05/21 13:02 Oxygen Delivery Method Nasal Cannula 11/05/21 13:02 Oxygen Flow Rate 3 11/05/21 13:02 Fraction of Inspired Oxygen (FIO2) 40 11/05/21 09:43 Pain Level 0 11/05/21 08:03 Comment 11/04/21 12:47 Intake & Output 11/04/21 11/05/21 11/05/21 23:59 11:59 23:59 Intake Total 310 / 720 310 / 310 Output Total 950 / 1850 1400 / 1400 Balance -640 / -1130 -1090 / -1090 Intake: IV 10 Oral 300 / 300 300 / 300 Output: Urine 950 / 1850 1400 / 1400 Other: Urine Color Yellow Yellow Urine Appearance Clear Clear Urine Odor Normal Normal Voiding Methods Bedside Commode Bedside Commode Data Completed and Pending Labs on day of discharge: Labs from last 24 hours 11/05/21 11/05/21 07:10 07:10 WBC 12.00 H RBC 5.41 H Hgb 16.6 H Hct 50.8 H MCV 94 MCH 30.7 MCHC 32.7 RDW 14.5 Plt Count 203 MPV 9.5 Immature Gran % 0.6 Neutrophils % 73.2 Lymphocytes % 15.2 Monocytes % 10.8 Eosinophils % 0.0 Basophils % 0.2 Nucleated RBC % 0.0 Absolute Neutrophils 8.78 H Absolute Lymphocytes 1.82 Absolute Monocytes 1.30 H Absolute Eosinophils 0.00 Absolute Basophils 0.02 Sodium 138 Potassium 3.8 Chloride 99 Carbon Dioxide 33.4 H Anion Gap 5.6 BUN 22 H Creatinine 0.7 Est GFR (CKD-EPI 2020) 104.00 Glucose 141 H Calcium 10.9 H PFSH All Active Problems (Updated 11/06/21 @ 00:08 by ELYSE SAMANO) Pneumonia (Acute) Dyspnea (Acute) Medication monitoring encounter (Acute) Pneumonia (Acute) Contraceptive management (Acute) COPD (chronic obstructive pulmonary disease) (Chronic) GERD (gastroesophageal reflux disease) (Chronic) Abnormal uterine bleeding (Acute) Mood disorder (Acute) Hypercalcemia (Acute) HTN (hypertension) (Chronic) HELEN (obstructive sleep apnea) (Chronic) Tobacco abuse (Chronic) Diabetes mellitus (Chronic) COPD with acute exacerbation (Acute) Primary osteoarthritis of both knees (Chronic 05/01/15) Medical History (Updated 11/06/21 @ 00:08 by ELYSE SAMANO) Chronic atrophic candidosis Depression with anxiety Diabetes mellitus type 2 in obese Hyperlipidemia Morbid obesity HELEN (obstructive sleep apnea) Smoker Surgical History Bilat partial saplinectomy Cholecystectomy (12/07/15) LAPAROSCOPIC WITH INTRAOPERATIVE CHOLANGIOGRAM/[facility] Ligation of fallopian tube Open Carpal Tunnel release Repair of umbilical hernia Tonsillectomy and adenoidectomy Family History Other COPD (chronic obstructive pulmonary disease) Cancer Social History Smoking/Tobacco Use Status: Former Tobacco Use Quit status: considering quitting Second Hand Exposure: Yes Smoking risk assessment performed?: Yes Alcohol Intake: never Drug use: Never Substance use type: does not use, opiates and painkillers Current gender identity: female Do you feel safe at home: Yes Do you feel safe in your relationship?: Yes Additional Social history: Lives with a roomate, Douglas Harmon. History History 5 Para 2 Hx # Term Pregnancies Multiple births Hx # Pregnancies Ectopic pregnancies AB induced Hx Number of Living Children AB spontaneous
== END 2021-11-05 14:59 | disposition home or self-care (01) | DRG 190 ==
LOC: ER 11:59 → MS 13:16
PROVIDERS: Emergency Medicine; Nurse Practitioner Acute Care; Admitting Provider Internal Medicine; Emergency Provider Physician Assistant; PCP Physician Assistant Medical; Visit Provider Internal Medicine
DX: J44.1 Chronic obstructive pulmonary disease with (acute) exacerbation (principal); J96.21 Acute and chronic respiratory failure with hypoxia; J96.22 Acute and chronic respiratory failure with hypercapnia; E11.9 Type 2 diabetes mellitus without complications; E66.01 Morbid (severe) obesity due to excess calories; Z68.43 Body mass index [BMI] 50.0-59.9, adult; G47.33 Obstructive sleep apnea (adult) (pediatric); F17.210 Nicotine dependence, cigarettes, uncomplicated; Z20.822 Contact with and (suspected) exposure to COVID-19; Z99.81 Dependence on supplemental oxygen; K21.9 Gastro-esophageal reflux disease without esophagitis; M17.0 Bilateral primary osteoarthritis of knee; F39 Unspecified mood [affective] disorder; F41.8 Other specified anxiety disorders; E78.5 Hyperlipidemia, unspecified; Z79.4 Long term (current) use of insulin; I50.9 Heart failure, unspecified; I11.0 Hypertensive heart disease with heart failure
CPT/HCPCS: 36415; 80048; 80053; 82805; 87635; 93005; 94640; 96361; 96365; 96366; 96375; 96376; 99285; J1650; 36600; 71045; 83880; 84484; 85025; 93010; 99223; 99238; J1940; J1956; J2270; J2930; J3490; J7512; J7613; J7620

== ENCOUNTER 2021-11-27 16:31 | Outpatient (REF) | payer MEDICARE, MEDICAID, SELFPAY ==
[2021-11-27 16:02] LABS: Hemoglobin A1C 6.2 % (<5.7)
[2021-11-27 16:11] LABS: ALT 14 U/L (14-59); AST 17 U/L (15-37); Albumin 3.5 g/dL (3.4-5.0); Alkaline Phosphatase 53 U/L (46-116); Anion Gap 6.5 mmol/L (3-11); BUN 15 mg/dL (7-18); Bilirubin, Total 0.4 mg/dL (0.2-1.0); CO2 32.5 mmol/L (21.0-32.0); CREATININE 0.6 mg/dL (0.55-1.02); Calcium 10.1 mg/dL (8.5-10.1); Calculated LDL 78 mg/dL (<100); Chloride 101 mmol/L (98-107); Cholesterol 150 mg/dL (<200); Estimated GFR 107.93 (mL/min/1.73m2); Glucose 99 mg/dL (74-106); HDL Cholesterol 40 mg/dL (40-60); Magnesium 1.8 mg/dL (1.8-2.4); Potassium 4.3 mmol/L (3.5-5.1); Sodium 140 mmol/L (136-145); Total Protein 7.6 g/dL (6.4-8.2); Triglyceride 160 mg/dL (<150)
== END 2021-11-27 16:32 | disposition home or self-care (01) ==
LOC: NCHCN 16:31
PROVIDERS: PCP Physician Assistant Medical; Visit Provider Physician Assistant Medical
DX: E11.9 Type 2 diabetes mellitus without complications (principal); E78.5 Hyperlipidemia, unspecified; E83.42 Hypomagnesemia
CPT/HCPCS: 80053; 80061; 83036; 83735

== ENCOUNTER 2022-04-02 16:36 | Outpatient (REF) | payer MEDICARE, MEDICAID, SELFPAY ==
[2022-04-02 15:54] LABS: Abs Immature Grans 0.09 10^3/uL (0.0-0.06); Absolute Lymphocyte Count 2.55 10^3/uL (1.2-3.4); Basophils % 0.3; HCT 45.3 % (36.0-46.0); HGB 14.8 g/dL (11.2-15.7); Immature Grans % 0.8; Lymphocytes % 22.1; MCH 30.5 pg (27.0-33.0); MCHC 32.7 % (32.0-36.0); MCV 93 fL (80-95); MPV 9.8 fL (8.0-11.0); Monocytes % 8.1; Neutrophils % 68.7; Platelet Count 216 10^3/uL (130-400); RBC 4.86 10^6/uL (3.93-5.22); RDW 14.3 % (11.7-14.6); WBC 11.54 10^3/uL (4.4-10.8)
[2022-04-02 15:56] LABS: Absolute Basophil Count 0.03 10^3/uL (0.0-0.2); Absolute Monocyte Count 0.93 10^3/uL (0.1-0.8); Absolute Neutrophil Count 7.93 10^3/uL (1.2-6.7)
[2022-04-02 16:12] LABS: ALT 14 U/L (14-59); AST 18 U/L (15-37); Alkaline Phosphatase 64 U/L (46-116); Anion Gap 8.7 mmol/L (3-11); BUN 17 mg/dL (7-18); Bilirubin, Total 0.5 mg/dL (0.2-1.0); CO2 30.3 mmol/L (21.0-32.0); CREATININE 0.6 mg/dL (0.55-1.02); Calcium 10.2 mg/dL (8.5-10.1); Chloride 101 mmol/L (98-107); Estimated GFR 107.93 (mL/min/1.73m2); Glucose 156 mg/dL (74-106); Sodium 140 mmol/L (136-145); Total Protein 7.1 g/dL (6.4-8.2)
[2022-04-02 16:15] LABS: Hemoglobin A1C 6.1 % (<5.7)
[2022-04-05 08:45] LABS: Magnesium 1.7 mg/dL (1.8-2.4)
== END 2022-04-02 16:37 | disposition home or self-care (01) ==
LOC: NCHCN 16:36
PROVIDERS: PCP Physician Assistant Medical; Visit Provider Physician Assistant Medical
DX: E11.9 Type 2 diabetes mellitus without complications (principal); I10 Essential (primary) hypertension; R14.0 Abdominal distension (gaseous)
CPT/HCPCS: 80053; 83036; 83735; 85025

== ENCOUNTER 2022-06-13 11:38 | Outpatient (CLI) | payer MEDICARE, MEDICAID, SELFPAY ==
--- NOTE | 2022-06-13 | DI.US_ITS ---
Exam(s) US LOWER EXTREMITY VENOUS LT EXAM: US LOWER EXTREMITY VENOUS LT CLINICAL HISTORY: PERIPHERAL EDEMA,R60.9,LT CALF SWELLING,LT ANKLE RED AND WARM.FAMILY H/O DV TECHNIQUE: Left lower extremity venous ultrasound performed using grayscale, color-flow, and spectra l Doppler analysis. COMPARISON: No exams were available for comparison FINDINGS: The left common femoral, femoral and popliteal veins demonstrate normal compressibility, augmentation , and color Doppler. The posterior tibial veins are patent. The saphenofemoral junction is unremarka ble. There is no evidence of a Felix cyst. There is edema seen in the soft tissues of the lower ext remity. IMPRESSION: No evidence of a left lower extremity DVT. DATA REPOSITORY:
--- OUTSIDE RECORDS SUMMARY | 2022-06-13 11:41 | XMS_ITS | Continuity of Care Document ---
Author Name Unknown Organization [facility] Ambulatory Clinics Address [address] [place] [address] Care Team Providers Care Care Services Manager Name Role Phone MARÍA TAPIA Primary Care Physicia n Encounter [facility] NBR [id number] Date(s): 01/24/22 - 01/24/22 [facility] Ambulatory Clinics [address] [place] [address]- Encounter Diagnosis Osteoarthritis of right shoulder(Discharge Diagnosis) - 01/24/22 Discharge Disposition: Home or Self Care Attending Physician: Alana Noel APRN Assessment and Plan Future Scheduled Tests Radiology* XR Shoulder Complete 2+ Views Right 01/24/22 Functional Status 01/24/22 Recent Travel History No recent travel Other exposure to Infectious Disease Non e Medications Advair HFA 115 mcg-21 mcg/inh inhalation aerosol BID, 2 Unknown, 0 Refill(s) Start Date: 01/24/22 Status: Ordered albuterol 0 Refill(s) Start Date: 01/24/22 Status: Ordered ARIPiprazole 10 mg oral tablet 90 EA, TAKE 1 TABLET BY MOUTH ONCE DAILY, 0 Refill(s) Start Date: 01/24/22 Status: Ordered atenolol 50 mg oral tablet 90 EA, TAKE 1 TABLET BY MOUTH ONCE DAILY, 0 Refill(s) Start Date: 01/24/22 Status: Ordered azithromycin 250 mg oral tablet 3 EA, TAKE 1 TABLET BY MOUTH ONCE DAILY, 0 Refill(s) Start Date: 01/24/22 Status: Ordered buPROPion 150 mg/12 hours (SR) oral tablet, extended release 2 Unknown, 0 Refill(s) Start Date: 01/24/22 Status: Ordered buPROPion 200 mg/12 hours (SR) oral tablet, extended release 90 EA, TAKE 1 TABLET BY MOUTH ONCE DAILY IN THE MORNING, 0 Refill(s) Start Date: 01/24/22 Status: Ordered Cartia XT 120 mg/24 hours oral capsule, extended release 1 Unknown, 0 Refill(s) Start Date: 01/24/22 Status: Ordered fenofibrate 160 mg oral tablet 90 EA, TAKE 1 TABLET BY MOUTH ONCE DAILY, 0 Refill(s) Start Date: 01/24/22 Status: Ordered fluconazole 150 mg oral tablet 2 EA, TAKE ONE TABLET BY MOUTH A ONE-TIME DOSE,AND THEN REPEAT MEDICATION IN THREE DAYS, 0 Refill(s) Start Date: 01/24/22 Status: Ordered gabapentin 300 mg oral capsule 270 EA, TAKE 3 CAPSULES BY MOUTH ONCE DAILY AT BEDTIME, 0 Refill(s) Start Date: 01/24/22 Status: Ordered gabapentin 800 mg oral tablet 1 Unknown, 0 Refill(s) Start Date: 01/24/22 Status: Ordered glipiZIDE 5 mg oral tablet, extended release 1 Unknown, 0 Refill(s) Start Date: 01/24/22 Status: Ordered Lasix 20 mg oral tablet 1 Unknown, 0 Refill(s) Start Date: 01/24/22 Status: Ordered Levemir FlexTouch 100 units/mL subcutaneous solution 0 Refill(s) Start Date: 01/24/22 Status: Ordered lisinopril 40 mg oral tablet 90 EA, TAKE 1 TABLET BY MOUTH ONCE DAILY, 0 Refill(s) Start Date: 01/24/22 Status: Ordered pantoprazole 40 mg oral delayed release tablet 90 EA, TAKE 1 TABLET BY MOUTH ONCE DAILY, 0 Refill(s) Start Date: 01/24/22 Status: Ordered Percocet 10 mg-325 mg oral tablet QID, 1 Unknown, 0 Refill(s) Start Date: 01/24/22 Status: Ordered Pristiq 100 mg oral tablet, extended release 1 Unknown, 0 Refill(s) Start Date: 01/24/22 Status: Ordered Ritalin 20 mg oral tablet BID, 1 Unknown, 0 Refill(s) Start Date: 01/24/22 Status: Ordered rosuvastatin 40 mg oral tablet 90 EA, TAKE 1 TABLET BY MOUTH ONCE DAILY AT NIGHT, 0 Refill(s) Start Date: 01/24/22 Status: Ordered Ventolin HFA 1 Unknown, 0 Refill(s) Start Date: 01/24/22 Status: Ordered Problem List Condition Confirmation Course Effective Dates Status Health St atus Informant 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 Sex Female Physician Outpatient Note * Alana Noel APRN: PERFORM, MODIFY Event Display: Office Clinic Note Physician Authored Date: [id number] VANESA BOWDEN :1970 Age:51 years Sex:Female Visit Date:01/24/2022 Primary Care Physician: MARÍA TAIPA Chief Complaint right shoulder pain History of Present Illness Maia??was hospitalized for COPD/CHF??in August??at [facility], then had home health with exercises for the whole body- began to worsen after that.?? Difficult to use arm, starts at shoulder, no numbness or tingling, has noticed decreased ROM, popping and grinding.?? LHD.?? Never any trauma or issues prior.?? She states that??she does feel grinding and catching.?? Is difficult to raise the arm out awayfrom her body or above her head, she denies any numbness tingling of the hand or radicular pain.?? She states that she is??wondering what the trays show, she states that??she notes no swelling no erythema, again she had no traumatic event.?? She does use her upper extremities to get up out of a chair as she has very arthritic bilateral knees as well.?? Here today for evaluation and suggestions oncare going forward she is unable to take NSAIDs but has been doing Tylenol intermittently. ??She does take Percocet??for her arthritic knees, she states that this is not really helping the shoulder however. Review of Systems Constitutional:?No??fevers,?No??chills,?No??sweats Eye:?No??recent visual problems ENT:?No??ear pain,?No??nasal congestion,?No??sore throat Respiratory:?Positive for??shortness of breath,?No??cough Cardiovascular:?No??Chest pain,?No??palpitations,?No??syncope Gastrointestinal:?Nonausea,?No??vomiting,?No??diarrhea Genitourinary:?No??hematuria Abdelrahman/Lymph:?No??bruising tendency,?No??swollen lymph glands Endocrine:?No??excessive thirst,??No??excessive hunger Musculoskeletal:??No??back pain,??No??neck pain,??Positive for??joint pain,??No??muscle pain,??No??decreased range of motion Integumentary:?No??rash,?No??pruritus,?No??abrasions Neurologic: Alert & oriented X 4 Psychiatric:?No??anxiety,?No??depression Physical Exam Vitals & Measurements HR:??77??(Peripheral)?? BP:??126/78?? SpO2:??85%?? HT:??147.32??cm?? WT:??115.67??kg?? BMI:??53.3?? Pain Score:??9?? BSA:??2.18?? General: ??appears stated age, well dressed HEENT: no loss of hearing, normocephalic, EOMs intact Neuro: ??grossly intact, if indicated see specific neurology exam Psych: ??alert and oriented to place and time, pleasant, cooperative Dermatology: ??no gross open areas of skin-see exam of limb for specifics Lymphatics: ??no lymphedema of affected limb Gait: Not assessed she is in a wheelchair today on oxygen Vascular: ??pulses distally of limb are 2+?? Musculoskeletal: Right shoulder: There is no obvious deformity there is no redness no erythema she is only able to forward elevate to 90 abduction 90 extension 40 crossarm test is positive she is only able to externally rotate hand to??ear. ??There is palpable??crepitance with range of motion, passively I am able to get her in forward flexion to about??120.?? Sensation is intact distally. Procedure Risk and benefit of injection are discussed with Maia, she is to include infection risk,??neurovascular??issue, possibly??incomplete resolution of her symptoms, fat atrophy??and steroid flare. ??She verbalizes understanding of said risks and would like to proceed. ??Her right shoulder??anteriorly is prepped with alcohol x3, she is sterilely injected in the??glenohumeral joint with 3 mL of 1% lidocaine plain and 40 mg Kenalog she tolerated the procedure very well and a sterile dressing is applied I did ask her not to take a shower bath??for 24 hours. Assessment/Plan 1.??Osteoarthritis of right shoulder??M19.011 X-rays are reviewed on the [facility] today which shows glenohumeral osteoarthritis with [id number] changes, large peripheral osteophyte of the humeral head, humeral head does not appear to be high riding. ??No acute change such as fracture ?? Maia??and I spent 30 minutes together today with 20 is minutes spent reviewing her x-ray findings, the fact that she has decreased range of motion and there is??audible and palpable crepitance with range of motion. ??She does have very arthritic shoulder,??she is not a great surgical candidate, physical therapy seem to irritate it so we did discuss doing CSI. ??She does understand this willlikely increase her blood sugar for a day or 2.?? I was able to passively get her moving a bit moreso I do not think there is a component of adhesive capsulitis like yet??however we did discuss thatgale does need to try to keep the shoulder moving and we went over some wall slides that she could pa rticipate in.?? Postinjection instructions are given, we will see her back at this point??on an as-needed basis. Ordered: Kenalog-40, 40 mg, Intra-articular, As Directed, First Dose: 01/24/22 10:23:00 EST, Physician Stop,Routine ?? Orders: XR Shoulder Complete 2+ Views Right, 01/24/22 9:17:00 EST, Routine, Reason: shoulder pain, Transport Mode: Ambulatory, Right shoulder pain, ABN Status: Not Required XR Shoulder Complete 2+ Views Right, 01/24/22, Routine, Reason: shoulder pain, Transport Mode: Ambulatory, Right shoulder pain, ABN Status: Not Required Future Orders XR Shoulder Complete 2+ Views Right, 01/24/22, Routine, Reason: shoulder pain, Transport Mode: Ambulatory, Right shoulder pain, ABN Status: Not Required Problem List/Past Medical History Ongoing COPD with asthma Morbid obesity Primary gonarthrosis, bilateral Historical No qualifying data Medications Advair HFA 115 mcg-21 mcg/inh inhalation aerosol, BID albuterol ARIPiprazole 10 mg oral tablet atenolol 50 mg oral tablet azithromycin 250 mg oral tablet buPROPion 150 mg/12 hours (SR) oral tablet, extended release buPROPion 200 mg/12 hours (SR) oral tablet, extended release Cartia XT 120 mg/24 hours oral capsule, extended release fenofibrate 160 mg oral tablet fluconazole 150 mg oral tablet gabapentin 300 mg oral capsule gabapentin 800 mg oral tablet glipiZIDE 5 mg oral tablet, extended release Kenalog-40, 40 mg, Intra-articular, As Directed Lasix 20 mg oral tablet Levemir FlexTouch 100 units/mL subcutaneous solution lisinopril 40 mg oral tablet pantoprazole 40 mg oral delayed release tablet Percocet 10 mg-325 mg oral tablet, QID Pristiq 100 mg oral tablet, extended release Ritalin 20 mg oral tablet, BID rosuvastatin 40 mg oral tablet Ventolin HFA Allergies No active allergies Electronically Signed on 01/24/22 03:54 PM Alana Noel APRN Patient Care team information Personnel Name: MARÍA TAPIA Address: Address: [address] [address]- [place]
--- OUTSIDE RECORDS SUMMARY | 2022-06-13 11:41 | XMS_ITS | Continuity of Care Document ---
Author Name Unknown Organization [facility] Ambulatory Clinics Address [address] [place] [address] Encounter [facility] NBR [id number] Date(s): 12/20/21 - 12/20/21 [facility] Ambulatory Clinics [address] [place], [place] [address]
== END 2022-06-13 11:58 ==
LOC: DI 11:39
PROVIDERS: PCP Physician Assistant Medical; Visit Provider Nurse Practitioner Family
DX: R60.9 Edema, unspecified (principal)
CPT/HCPCS: 93971

== ENCOUNTER 2022-06-13 17:45 | Outpatient (REF) | payer MEDICARE, MEDICAID, SELFPAY ==
[2022-06-13 15:45] LABS: Abs Immature Grans 0.05 10^3/uL (0.0-0.06); Absolute Basophil Count 0.04 10^3/uL (0.0-0.2); Absolute Monocyte Count 0.83 10^3/uL (0.1-0.8); Absolute Neutrophil Count 5.27 10^3/uL (1.2-6.7); Basophils % 0.5; HCT 43.6 % (36.0-46.0); HGB 14.2 g/dL (11.2-15.7); Immature Grans % 0.6; Lymphocytes % 27.9; MCH 31.1 pg (27.0-33.0); MCHC 32.6 % (32.0-36.0); MCV 95 fL (80-95); MPV 9.9 fL (8.0-11.0); Monocytes % 9.7; Neutrophils % 61.3; Platelet Count 205 10^3/uL (130-400); RBC 4.57 10^6/uL (3.93-5.22); RDW 13.7 % (11.7-14.6); RDW-SD 48.5 fL; WBC 8.59 10^3/uL (4.4-10.8)
[2022-06-13 16:03] LABS: ESR 45 mm/hr (0-30)
[2022-06-13 16:26] LABS: ALT 25 U/L (14-59); AST 23 U/L (15-37); Albumin 3.6 g/dL (3.4-5.0); Alkaline Phosphatase 62 U/L (46-116); Anion Gap 4.6 mmol/L (3-11); BUN 15 mg/dL (7-18); Bilirubin, Total 0.4 mg/dL (0.2-1.0); CO2 34.4 mmol/L (21.0-32.0); CREATININE 0.7 mg/dL (0.55-1.02); Calcium 10.2 mg/dL (8.5-10.1); Chloride 101 mmol/L (98-107); Glucose 175 mg/dL (74-106); Potassium 4.2 mmol/L (3.5-5.1); Sodium 140 mmol/L (136-145); Total Protein 7.6 g/dL (6.4-8.2)
== END 2022-06-13 17:46 | disposition home or self-care (01) ==
LOC: NCHCN 17:45
PROVIDERS: PCP Physician Assistant Medical; Visit Provider Nurse Practitioner Family
DX: R22.42 Localized swelling, mass and lump, left lower limb; R70.0 Elevated erythrocyte sedimentation rate
CPT/HCPCS: 80053; 85652; 85025

== ENCOUNTER 2022-07-08 15:57 | Outpatient (REF) | payer MEDICARE, MEDICAID, SELFPAY ==
[2022-07-08 15:53] LABS: Anion Gap 5.9 mmol/L (3-11); BUN 20 mg/dL (7-18); CO2 33.1 mmol/L (21.0-32.0); CREATININE 0.7 mg/dL (0.55-1.02); Calcium 10.1 mg/dL (8.5-10.1); Chloride 101 mmol/L (98-107); Estimated GFR 103.35 (mL/min/1.73m2); Glucose 202 mg/dL (74-106); Potassium 4.4 mmol/L (3.5-5.1); Sodium 140 mmol/L (136-145)
== END 2022-07-08 15:58 | disposition home or self-care (01) ==
LOC: NCHCN 15:57
PROVIDERS: PCP Physician Assistant Medical; Visit Provider Physician Assistant Medical
DX: R60.0 Localized edema (principal)
CPT/HCPCS: 80048

== ENCOUNTER 2022-09-25 13:27 | Emergency (ER) | payer MEDICARE, MEDICAID, SELFPAY ==
[2022-09-25 13:32] VITALS: BP 169/99; PULSE 78; RESP 20; TEMP 36.3; O2SAT 91
--- NOTE | 2022-09-25 15:12 | ED.GENADUL_ITS ---
Discharge Plan Disposition Patient Disposition: Home Discharge Details Clinical Impression: Skin ulcer of abdominal wall Primary Care Provider: Maria Del Carmen Nogueira ED Provider: Vania Hoffman Home Meds and New Rx's Prescriptions: Continued rosuvastatin 40 mg tablet 40 mg PO HS desvenlafaxine succinate [Pristiq] 100 MG tablet extended release 24 hr 100 mg PO DAILY albuterol sulfate 8.5 GM HFA aerosol inhaler 1 - 2 puff Inhalation Q4H PRN gabapentin 300 MG capsule 900 mg PO HS atenolol 50 MG tablet 50 mg PO DAILY aripiprazole [Abilify] 10 MG tablet 10 mg PO DAILY nystatin 1 EACH powder 1 ea PO TID PRN fenofibrate 160 MG tablet 160 mg PO DAILY lisinopril 20 MG tablet 40 mg PO DAILY ipratropium-albuterol 0.5 mg-3 mg(2.5 mg base)/3 mL solution for nebulization 3 ml inhalation Q4H PRN (Reason: wheezing) Qty: 540 12RF azithromycin [Zithromax] 250 mg tablet 250 mg PO DAILY Qty: 90 12RF prednisone 10 mg tablet See Rx Instructions PO DAILY Qty: 42 0RF Rx Instructions: Take 40mg for 5 days, 30mg for 3 days, 20mg for 3 days, 10mg for 3 days, 5mg for 3 days fluconazole [Diflucan] 150 mg tablet 150 mg PO Q3D Qty: 2 0RF Incruse Ellipta 62.5 mcg/actuation blister with device See Rx Instructions .ROUTE .COMPLEX Qty: 30 12RF Dose Instruction: Inhale 1 puff by mouth once daily Rx Instructions: Inhale 1 puff by mouth once daily prednisone 10 mg tablet 10 mg PO DAILY Qty: 39 0RF Rx Instructions: Take 40mg (4 tablets) x 5 days, 30mg (3 tablets) x 3 days, 20mg (2 tablets) x 3 days, 10mg (1 tablet) x3 days and 5mg (0.5 tablet) x 2 days prednisone 10 mg tablet 10 mg PO DIRECTED Qty: 40 0RF Rx Instructions: Take 40mg (4 tablets) one a day for 5 days, 30mg (3 tablets) once a day for 3 days, 20mg (2 tablets) once a day for 3 days , 10mg (1 tablet) for 3 days, 5mg (0.5 tablets) for 3 days Jardiance 10 mg Tablet 10 mg PO QAM Qty: 30 0RF magnesium oxide 400 mg (241.3 mg magnesium) Tablet 400 mg PO HS Qty: 30 0RF torsemide 20 mg tablet 20 mg PO DAILY Patient Comments: TAKE 1 TABLET BY MOUTH ONCE DAILY gabapentin 300 mg capsule Patient Comments: TAKE 3 CAPSULES BY MOUTH ONCE DAILY AT BEDTIME prednisone 20 mg Tablet 40 mg PO DAILY Qty: 8 0RF oxycodone-acetaminophen 10-325 mg Tablet 1 tab PO QID PRN PRN (Reason: Pain) naloxone [Narcan] 4 mg/actuation [place],Non-Aerosol 4 mg Intranasal PRN PRN (Reason: excessive sedation) methylphenidate HCl [Ritalin] 20 mg Tablet 20 mg PO BID insulin aspart U-100 [Novolog FlexPen U-100 Insulin] 100 unit/mL (3 mL) insulin pen 0 sliding scale dose SUBCUT AC Rx Instructions: MAXIMUM OF 50 UNITS PER 24 HOURS bupropion HCl 200 mg tablet sustained-release 12 hr 200 mg PO QAM Patient Comments: TAKE 1 TABLET BY MOUTH ONCE DAILY IN THE MORNING Januvia 100 mg tablet 100 mg PO DAILY Levemir FlexTouch U100 Insulin 100 unit/mL (3 mL) insulin pen 12 unit SUBCUT HS fluticasone propion-salmeterol [Advair HFA] 230-21 mcg/actuation HFA aerosol inhaler 1 puff INHALATION BID Discharge Instructions Instructions: Acute Wound Care (ED) Additional Instructions: PLease apply the Triad hydrophilic wound dressing to any wounds that have exudate. You will do this after cleansing the wounds with soap and water. You will then apply Mepilex which can stay on for 3 to 7 days. Home health will population health coach you more with this. Return to ED for spreading redness, fever 100.4 or above, any other concerns. Health should contact you before the dressings need to be changed. Medical Decision Making Patient with a likely stage II ulcerations beneath her pannus on both the left and the right. She has a small amount of exudate one of the wounds. She has a lot of granulation tissue and there is no redness to suggest infection. We have cleansed her wounds and applied Triad hydrophilic wound dressing to the wounds that had exudate. Following this we placed Mepilex dressings on top of all of these. Home health has been consulted and will go when to assist the patient and her fianc? with dressing supplies and wound care. Medical Records Medical records reviewed: Yes I reviewed the patient's medical records. Lab Data Lab results reviewed: Yes I reviewed the patient's lab results. HPI General Date/Time Provider Initiated Documentation: 09/25/22 14:11 . HPI Narrative: This 52-year-old female patient who is morbidly obese was referred in by her primary care doctor for evaluation of ulcerations under her pannus. Patient has 3 ulcerations on the right and 3 on the left. She denies redness under her pannus. She is on home oxygen for COPD and has a history of insulin-dependent diabetes. She does check her fingersticks. Her fingerstick in the ED is 177. She is here with her fianc? who assists her. She denies fever, URI symptoms, chest pain, shortness of breath, abdominal pain. She has no symptoms. Related Data Home Medications Medication Instructions Recorded Confirmed albuterol sulfate 90 mcg/actuation 1 - 2 puff inhalation Q4H PRN 03/21/14 01/28/22 aerosol inhaler desvenlafaxine succinate 100 mg 100 mg PO DAILY 03/21/14 08/21/22 tablet,extended release 24 hr (Pristiq) aripiprazole 10 mg tablet (Abilify) 10 mg PO DAILY 04/22/17 08/21/22 atenolol 50 mg tablet 50 mg PO DAILY 04/22/17 08/21/22 fenofibrate 160 mg tablet 160 mg PO DAILY 04/22/17 08/21/22 gabapentin 300 mg capsule 900 mg PO HS 04/22/17 01/28/22 nystatin 500 million unit oral 1 ea PO TID PRN 04/22/17 08/21/22 powder lisinopril 20 mg tablet 40 mg PO DAILY 04/23/17 08/21/22 naloxone 4 mg/actuation nasal 4 mg intranasal PRN PRN excessive 04/29/18 08/21/22 spray (Narcan) sedation oxycodone-acetaminophen 10 mg-325 1 tab PO QID PRN PRN Pain 04/29/18 08/21/22 mg tablet methylphenidate HCl 20 mg tablet 20 mg PO BID 11/15/18 08/21/22 (Ritalin) rosuvastatin 40 mg tablet 40 mg PO HS 04/12/19 08/21/22 bupropion HCl 200 mg tablet,12 hr 200 mg PO QAM 01/15/21 08/21/22 sustained-release fluticasone propionate 230 1 puff inhalation BID 01/15/21 08/21/22 mcg-salmeterol 21 mcg/actuation HFA inhaler (Advair HFA) insulin aspart U-100 100 unit/mL 0 sliding scale dose subcut AC 01/15/21 08/21/22 (3 mL) subcutaneous pen (Novolog FlexPen U-100 Insulin aspart) insulin detemir U-100 100 unit/mL 12 unit subcut HS 01/15/21 08/21/22 (3 mL) subcutaneous pen (Levemir FlexTouch U-100 Insulin) sitagliptin phosphate 100 mg 100 mg PO DAILY 01/15/21 08/21/22 tablet (Januvia) empagliflozin 10 mg tablet 10 mg PO QAM #30 tabs 08/22/21 01/28/22 (Jardiance) magnesium oxide 400 mg (241.3 mg 400 mg PO HS #30 tabs 08/22/21 08/21/22 magnesium) tablet ipratropium 0.5 mg-albuterol 3 mg 3 ml inhalation Q4H PRN wheezing 10/12/21 08/21/22 (2.5 mg base)/3 mL nebulization #540 mL soln gabapentin 300 mg capsule mg 11/04/21 08/21/22 torsemide 20 mg tablet 20 mg PO DAILY 11/04/21 08/21/22 prednisone 20 mg tablet 40 mg PO DAILY #8 tabs 11/05/21 01/28/22 azithromycin 250 mg tablet 250 mg PO DAILY #90 tabs 11/16/21 08/21/22 (Zithromax) prednisone 10 mg tablet See Rx Instructions PO DAILY #42 01/30/22 tabs fluconazole 150 mg tablet 150 mg PO Q3D 2 doses #2 tabs 03/12/22 08/21/22 (Diflucan) prednisone 10 mg tablet 10 mg PO DAILY #39 tabs 05/20/22 umeclidinium 62.5 mcg/actuation See Rx Instructions .Route 05/20/22 08/21/22 blister powder for inhalation .COMPLEX #30 ea (Incruse Ellipta) prednisone 10 mg tablet 10 mg PO DIRECTED #40 tabs 07/31/22 Previous Rx's Medication Instructions Recorded empagliflozin 10 mg tablet 10 mg PO QAM #30 tabs 08/22/21 (Jardiance) magnesium oxide 400 mg (241.3 mg 400 mg PO HS #30 tabs 08/22/21 magnesium) tablet ipratropium 0.5 mg-albuterol 3 mg 3 ml inhalation Q4H PRN wheezing 10/12/21 (2.5 mg base)/3 mL nebulization #540 mL soln prednisone 20 mg tablet 40 mg PO DAILY #8 tabs 11/05/21 azithromycin 250 mg tablet 250 mg PO DAILY #90 tabs 11/16/21 (Zithromax) prednisone 10 mg tablet See Rx Instructions PO DAILY #42 01/30/22 tabs fluconazole 150 mg tablet 150 mg PO Q3D 2 doses #2 tabs 03/12/22 (Diflucan) prednisone 10 mg tablet 10 mg PO DAILY #39 tabs 05/20/22 umeclidinium 62.5 mcg/actuation See Rx Instructions .Route 05/20/22 blister powder for inhalation .COMPLEX #30 ea (Incruse Ellipta) prednisone 10 mg tablet 10 mg PO DIRECTED #40 tabs 07/31/22 Allergies Allergy/AdvReac Type Severity Reaction Status Date / Time amoxicillin Allergy Skin Rash Unverified 08/21/22 09:04 Sulfa (Sulfonamide Allergy Unverified 08/21/22 09:04 Antibiotics) varenicline [From Chantix] AdvReac Mild Nightmares Verified 08/21/22 09:04 Antiobiotics AdvReac Intermediate Rash,vomitt Uncoded 08/21/22 09:04 ing General Stated Complaint: Cellulitis HEATHER: 4 Review of Systems Constitutional Constitutional: Denies chills, Denies fever(s), Denies headache(s) and Denies weakness Eyes Eyes: Denies diplopia and Reports other (no redness) ENT Ears, Nose, Mouth, and Throat: Denies otalgia, Denies headache(s), Denies nasal congestion, Denies nasal discharge, Denies neck pain and Denies sore throat Cardiovascular Cardiovascular: Denies chest pain, Denies palpitations and Denies dyspnea Respiratory Respiratory: Denies cough and Denies dyspnea Gastrointestinal Gastrointestinal: Denies abdominal pain, Denies diarrhea, Denies nausea and Denies vomiting Genitourinary Genitourinary: Denies dysuria Musculoskeletal Musculoskeletal: Denies myalgias, Denies muscle weakness, Denies neck pain, Denies numbness and Reports other (edema) Integumentary/Breasts Skin/Breast: Denies change in pigmentation, Denies erythema, Denies rash (No rash but 6 ulcerations, 3 on the R 3 on L under pannus, pos granulation ) and Reports skin ulcer (as noted, all healing, nothing needs debridement) Neurologic Neurologic: Denies headache(s), Denies numbness and Denies weakness Endocrine Endocrine: Denies palpitations PFSH All Active Problems (Updated 09/25/22 @ 15:33 by Vania Hoffman MD) Skin ulcer of abdominal wall (Acute) Pneumonia (Acute) Dyspnea (Acute) Medication monitoring encounter (Acute) Pneumonia (Acute) Contraceptive management (Acute) COPD (chronic obstructive pulmonary disease) (Chronic) GERD (gastroesophageal reflux disease) (Chronic) Abnormal uterine bleeding (Acute) Mood disorder (Acute) Hypercalcemia (Acute) HTN (hypertension) (Chronic) HELEN (obstructive sleep apnea) (Chronic) Tobacco abuse (Chronic) Diabetes mellitus (Chronic) COPD with acute exacerbation (Acute) Primary osteoarthritis of both knees (Chronic 05/01/15) Medical History Chronic atrophic candidosis Depression with anxiety Diabetes mellitus type 2 in obese Hyperlipidemia Morbid obesity HELEN (obstructive sleep apnea) Smoker Surgical History Bilat partial saplinectomy Cholecystectomy (12/07/15) LAPAROSCOPIC WITH INTRAOPERATIVE CHOLANGIOGRAM/[facility] Ligation of fallopian tube Open Carpal Tunnel release Repair of umbilical hernia Tonsillectomy and adenoidectomy Family History Other COPD (chronic obstructive pulmonary disease) Cancer Social History Smoking/Tobacco Use Status: Former Tobacco Use Quit status: considering quitting Second Hand Exposure: Yes Smoking risk assessment performed?: Yes Alcohol Intake: never Drug use: Never Substance use type: does not use, opiates and painkillers Housing: house Current gender identity: female Do you feel safe at home: Yes Do you feel safe in your relationship?: Yes Additional Social history: Lives with a roomate, Douglas Harmon. History History 5 Para 2 Hx # Term Pregnancies Multiple births Hx # Pregnancies Ectopic pregnancies AB induced Hx Number of Living Children AB spontaneous Exam Const General: no acute distress, well developed and well groomed Nutritional Appearance: well nourished Orientation: alert and oriented x3 HENAZ Head: normocephalic and atraumatic Ears: external ears normal Mouth: lip normal Eyes Conjunctivae: conjunctivae normal Neck Neck: full ROM and supple Resp Effort & Inspection: normal respiratory effort GI Inspection: normal to inspection (Except for large pannus) and other (Obese,lge pannus,no candidiasis/erythema,has stage 2 ulcerx6 w/granulation ) Palpation: soft, nontender and other (non distended) Auscultation: normal bowel sounds Skin General skin exam: no rashes or lesions noted and other (pink, warm, dry) Neuro General: patient alert, patient awake and patient oriented x3 Speech: speech normal Motor: other (BROOKS) Sensory Exam: no sensory deficits noted Extrem General: normal to inspection, full ROM and pedal edema present Psych Mental Status: mental status grossly normal Speech and Movement: speech and movement normal Affect: normal affect Course Vital Signs Vital signs: Vital Signs Temperature 36.3 C L 09/25/22 13:32 Pulse 78 09/25/22 13:32 Respiratory Rate 20 09/25/22 13:32 Blood Pressure 169/99 H 09/25/22 13:32 Pulse Oximetry 91 L 09/25/22 13:32 Temperature 36.3 C L 09/25/22 13:32 Temperature Source Skin 09/25/22 13:32 Pulse 78 09/25/22 13:32 Respiratory Rate 20 09/25/22 13:32 Respiratory Effort Short of Breath 09/25/22 14:17 Blood Pressure 169/99 H 09/25/22 13:32 Blood Pressure Position Sitting 09/25/22 13:32 Pulse Oximetry 91 L 09/25/22 13:32 Oxygen Delivery Method Nasal Cannula 09/25/22 13:32 Oxygen Flow Rate 2 09/25/22 13:32 Pain Level 5 09/25/22 13:32 Lab/Test Results Lab/Test Results: Laboratory Tests Range/Units 09/25/22 09/25/22 14:11 14:11 WBC Cancelled RBC Cancelled Hgb Cancelled Hct Cancelled MCV Cancelled MCH Cancelled MCHC Cancelled RDW Cancelled Plt Count Cancelled MPV Cancelled Immature Gran % Cancelled Neutrophils % Cancelled Band Neutrophils % Cancelled Lymphocytes % Cancelled Atypical Lymphs % Cancelled Monocytes % Cancelled Eosinophils % Cancelled Basophils % Cancelled Metamyelocytes % Cancelled Myelocytes % Cancelled Promyelocytes % Cancelled Other Cells % Cancelled Nucleated RBC % Cancelled Absolute Neutrophils Cancelled Absolute Lymphocytes Cancelled Absolute Monocytes Cancelled Absolute Eosinophils Cancelled Absolute Basophils Cancelled RBC Morphology Cancelled Polychromasia Cancelled Hypochromasia Cancelled Poikilocytosis Cancelled Basophilic Stippling Cancelled Anisocytosis Cancelled Microcytosis Cancelled Macrocytosis Cancelled Spherocytes Cancelled Tear Drop Cells Cancelled Ovalocytes Cancelled Stomatocytes Cancelled [place] Bodies Cancelled [place] Cells/Echinocytes Cancelled Acanthocytes ([place]) Cancelled Schistocytes Cancelled Sodium Cancelled Potassium Cancelled Chloride Cancelled Carbon Dioxide Cancelled Anion Gap Cancelled BUN Cancelled Creatinine Cancelled Est GFR (CKD-EPI 2020) Cancelled Glucose Cancelled Calcium Cancelled Magnesium Cancelled Total Bilirubin Cancelled AST Cancelled ALT Cancelled Alkaline Phosphatase Cancelled Total Protein Cancelled Albumin Cancelled
[2022-09-25 15:50] VITALS: BP 186/96; PULSE 91; RESP 20; TEMP 36.3; O2SAT 90
--- NOTE | 2022-09-25 16:26 | PDOC.CMPRO ---
Date of service: 09/25/22 Time of Service: 16:26 Care Management Progress Note Progress Note Text Progress Note Text: Rosibel presents in the ED for ulcers of abdominal wall. At the request of ED provider, VALERIE meets with Rosibel to assess her needs and to discuss Home Health Services. Rosibel previously had Home Health but services terminated at the end of June. She is agreeable to restarting Home Health Nursing for wound care. We also briefly discuss her medications and insurance and patient reports she has no difficulty obtaining her meds. No further needs identified at this time.
== END 2022-09-25 15:56 | disposition home or self-care (01) ==
PROVIDERS: Emergency Provider Emergency Medicine; PCP Physician Assistant Medical
DX: L98.499 Non-pressure chronic ulcer of skin of other sites with unspecified severity (principal)
CPT/HCPCS: 36416; 80053; 82962; 99283; 83735; 85025

== ENCOUNTER → 2023-02-25 12:39 | Outpatient (BNVA) | payer MEDICARE, MEDICAID, SELFPAY | PROVIDERS: PCP Physician Assistant Medical; Referring Provider Physician Assistant Medical; Visit Provider Physician Assistant Surgical | DX: J44.9 Chronic obstructive pulmonary disease, unspecified (principal); F17.210 Nicotine dependence, cigarettes, uncomplicated | CPT/HCPCS: 99214 ==

== ENCOUNTER → 2023-03-26 02:00 | Outpatient (CLI) | payer MEDICARE, MEDICAID, SELFPAY ==
--- NOTE | 2023-03-26 10:16 | DI.MAMMO_ITS ---
Exam(s) US BREAST RT COMPLETE MG MAMMO DIAGNOSTIC BI EXAM: MG MAMMO DIAGNOSTIC BI COMPLETE RIGHT BREAST ULTRASOUND CLINICAL HISTORY: DIAGNOSTIC, LUMP SUBAREOLAR RT BREAST, N63.41. TECHNIQUE: BOTH CC AND MLO BILATERAL mammographic images were obtained with 3D tomosynthesis [employer] ue and utilizing computer aided detection (CAD). Also performed additional spot compression views of the area of clinical concern in the retroareolar region of the right breast. THE RIGHT BREAST ULTRASOUND performed including all 4 quadrants, the retroareolar region, and the rig ht axilla COMPARISON: Prior mammograms were reviewed, the most recent being 2018. This patient feels a right breast retroareolar region lump ???since [place]??? which she claims to have decreased in size ???from the size of a golf ball to the size of a marble???. She has had some ipsilateral nonbloody milky nipple discharge. She vaguely remember it is recently falling on her breast but does not recall that it produced a brui se at that time. FINDINGS: DIAGNOSTIC BILATERAL MAMMOGRAM: There are no new left breast findings. In the right breast there is an asymmetric density in the retro-periareolar region. However, spot co mpression views render this looking more like fat necrosis than an actual solid mass. There are no m alignant-appearing microcalcification groups in this region or elsewhere in either breast. We proceeded with ultrasound of the right breast... COMPLETE RIGHT BREAST ULTRASOUND: The only finding is in the retroareolar region and corresponds to the palpable lump. This is a lobul ated solid-appearing wider than taller nodule measuring 1.5 x 0.5 cm. It exhibits increased through transmission, without significant decreased through transmission.. Scanning of the right axilla is negative for significant adenopathy. IMPRESSION: Right breast retroareolar region findings as described above, this corresponding to the palpable lump . Given the mammographic appearance and history that this lump is decreasing in size, there is a possib ly that we are dealing with a benign finding here, including possibility of posttraumatic fat necrosi s. However, the ultrasound does reveal a solid appearing nodule at this level. Recommend referral t o breast surgery for possible ultrasound-guided core biopsy Findings and recommendations were discussed by myself with the patient and her today. Findings are recommendations also called by myself to referring physician today. BI-RADS Category 4 - Suspicious Abnormality: Biopsy should be considered Breast Density - Category B - Scattered areas of fibroglandular density Breast density Category C or D implies that the patient has dense breast tissue. Dense breast tissue can make it harder to find cancer on a mammogram. Dense breast tissue is also associated with an incr eased risk of breast cancer. This information about the result of the mammogram report was provided to the patient to raise their awareness. Use this report when you speak with the patient about their risks for breast cancer, which includes their family history. At that time, you may recommend additional screening tests (Ultrasoun d or MRI) as these tests may add significant information. A negative radiographic report should not delay biopsy if a dominant or clinically suspicious mass is present. Up to ten percent of cancers are not identified on mammography. A negative report may reinforce clinical impression. Adenosis and dense breasts may obscure an underlying neoplasm. False positive reports average 6 to 10%. Patient will receive a letter notifying them of these results.
== END ==
PROVIDERS: PCP Physician Assistant Medical; Visit Provider Nurse Practitioner Family
DX: R92.8 Other abnormal and inconclusive findings on diagnostic imaging of breast; Z12.31 Encounter for screening mammogram for malignant neoplasm of breast
CPT/HCPCS: 76642; 77062; 77066; G0279

== ENCOUNTER → 2023-04-04 01:39 | Outpatient (CLI) | payer MEDICARE, MEDICAID, SELFPAY ==
--- NOTE | 2023-04-04 | DI.US_ITS ---
Exam(s) US NEEDLE LOCAL BREAST WO RAD EXAM: US NEEDLE LOCAL BREAST WO RAD CLINICAL HISTORY: RT BREAST LUMP,ULTRASOUND GUIDED BX. TECHNIQUE: Hostess see procedure note for details. COMPARISON: US US BREAST RT COMPLETE from 03/26/2023 MG MG MAMMO DIAGNOSTIC BI from 03/26/2023 FINDINGS: The procedure was performed by Dr. Randall Gunter. A tissue marker clip was placed in the subareolar le yoel. Please see procedure note for complete details.
--- NOTE | 2023-04-04 15:31 | BREAST_PTH ---
PATIENT: Rosibel Dinh LOC: [facility] U#:[id number] AGE/SX: 54/F ROOM: RE04/04/[address]: Randall Gunter MD : [id number] BED: DIS: SPEC #: [id number] RECD: 04/04/23 16:50 STATUS: CHARITY REeLticia #: [id number] CHAVEZ: 04/04/23 15:[address]: Randall Gunter DEPT: Surgical Specimen RECD BY: Olivia Walker ENTERED: 04/04/23 16:51 SP TYPE: Breast OTHR DR: Maria Del Carmen Nogueira Tissues: 1 - BREAST BX NEEDLE Procedures: GROSS AND MICRO LEVEL 4 IMMUNOPEROXIDASE STAIN Comments: [id number]
--- NOTE | 2023-04-04 15:56 | W.PROCNOTE ---
Date of service: 04/04/23 Time of Service: 15:56 Procedure Note Date of procedure: 04/04/23 Procedure: Right-sided core needle breast biopsy Surgeon/Proceduralist/Physician: Randall Gunter Procedure Diagnosis: Right breast mass Procedure Indications: Maia is a 52-year-old woman who noticed a lump in the right breast. She underwent a mammogram followed by an ultrasound that demonstrated a 1.5 x 0.5 cm lobulated solid appearing mass in the retroareolar region. Biopsy was recommended. I explained the risks and benefits of the procedure, and she seemed to understand and provide consent. Procedure Description: After localizing the lesion with real-time ultrasonography, I prepped the right breast with an alcohol pad. I anesthetized the skin, and the trajectory of the biopsy site using local anesthetic. Next, I made a small incision in the skin with an blade scalpel. I then used a 22 mm Bard core needle biopsy device to obtain 3 specimens of the mass. These were all done with real-time ultrasonography. Patient specimens were excellent. They were all preserved in formalin. After biopsies were obtained, radiographic clip was placed in the lesion for future reference. Maia tolerated the procedure fine, with minimal discomfort. We talked about postprocedural care of the wound. I will call her when the biopsy results are available.
== END ==
PROVIDERS: PCP Physician Assistant Medical; Visit Provider Surgery
DX: N60.11 Diffuse cystic mastopathy of right breast (principal); R92.8 Other abnormal and inconclusive findings on diagnostic imaging of breast
CPT/HCPCS: 19083; 88305; 76942; 87624; 88361

== ENCOUNTER 2023-04-04 14:19 | Outpatient (CLI) | payer MEDICARE, MEDICAID, SELFPAY ==
[2023-04-04 14:57] LABS: Hemoglobin A1C 6.2 % (<5.7)
[2023-04-04 15:06] LABS: ALT 15 U/L (14-59); AST 14 U/L (15-37); Albumin 3.3 g/dL (3.4-5.0); Alkaline Phosphatase 67 U/L (46-116); Anion Gap 5.1 mmol/L (3-11); BUN 8 mg/dL (7-18); Bilirubin, Total 0.5 mg/dL (0.2-1.0); CO2 32.9 mmol/L (21.0-32.0); CREATININE 0.6 mg/dL (0.55-1.02); Calcium 9.8 mg/dL (8.5-10.1); Chloride 103 mmol/L (98-107); Estimated GFR 107.26 (mL/min/1.73m2); Glucose 188 mg/dL (74-106); Magnesium 1.5 mg/dL (1.8-2.4); Potassium 4.2 mmol/L (3.5-5.1); Sodium 141 mmol/L (136-145); Total Protein 7.3 g/dL (6.4-8.2)
[2023-04-04 16:20] LABS: Calculated LDL 76 mg/dL (<100); Cholesterol 147 mg/dL (<200); HDL Cholesterol 43 mg/dL (40-60); Triglyceride 142 mg/dL (<150)
== END 2023-04-04 14:20 | disposition home or self-care (01) ==
LOC: LBO 14:19
PROVIDERS: PCP Physician Assistant Medical; Visit Provider Physician Assistant Medical
DX: E78.5 Hyperlipidemia, unspecified (principal); E11.9 Type 2 diabetes mellitus without complications
CPT/HCPCS: 19083; 36415; 80053; 80061; 88305; 83036; 83735; 87624; 88361

== ENCOUNTER 2023-04-27 11:38 | Emergency (ER) | payer MEDICARE, MEDICAID, SELFPAY ==
--- NOTE | 2023-04-27 11:45 | DI.RAD_ITS ---
Exam(s) XR PORTABLE CHEST AP EXAM: XR PORTABLE CHEST AP CLINICAL HISTORY: copd exacerbation TECHNIQUE: 2D digital imaging was performed of the chest. One image was obtained. An AP view was ob tained. COMPARISON: CR,XR XR PORTABLE CHEST AP from 11/04/2021 FINDINGS: MEDIASTINUM: Normal. HEART: Cardiomegaly. There is stable prominence of the pulmonary arteries suggesting pulmonary arter y hypertension. PULMONARY VASCULATURE: Normal. LUNGS: There are bilateral basilar opacities, left greater than right. PLEURAL SPACE: There is blunting of the left costophrenic angle which may represent a small pleural e ffusion. BONE:Within normal limits for the patient's age. OTHER FINDINGS:Normal. IMPRESSION: Bilateral basilar opacities which may represent atelectasis or pneumonia. Please correlate clinicall y. DATA REPOSITORY: RADIATION DOSE DELIVERED:
[2023-04-27 11:50] VITALS: PULSE 95; RESP 21
[2023-04-27 11:58] VITALS: PULSE 88; RESP 32; TEMP 36.6; O2SAT 88
[2023-04-27 12:01] VITALS: PULSE 92; RESP 19; O2SAT 87
[2023-04-27 12:02] VITALS: BP 215/112; PULSE 87; PULSE 89; RESP 15; O2SAT 88
--- NOTE | 2023-04-27 12:27 | W.ED.GENAD ---
Discharge Plan Disposition Patient Disposition: Home Condition: Improving Discharge Details Chief Complaint: RespSymp Clinical Impression: COPD with exacerbation Primary Care Provider: Maria Del Carmen Nogueira ED Provider: Rajendra Ying Home Meds and New Rx's Prescriptions: No Action oxycodone 15 mg tablet 15 mg PO TID PRN rosuvastatin 40 mg tablet 40 mg PO HS desvenlafaxine succinate [Pristiq] 100 MG tablet extended release 24 hr 100 mg PO DAILY atenolol 50 MG tablet 50 mg PO DAILY aripiprazole [Abilify] 10 MG tablet 10 mg PO DAILY nystatin 1 EACH powder 1 ea PO TID PRN fenofibrate 160 MG tablet 160 mg PO DAILY lisinopril 20 MG tablet 40 mg PO DAILY ipratropium-albuterol 0.5 mg-3 mg(2.5 mg base)/3 mL solution for nebulization 3 ml inhalation Q4H PRN (Reason: wheezing) Qty: 540 12RF Incruse Ellipta 62.5 mcg/actuation blister with device See Rx Instructions .ROUTE .COMPLEX Qty: 30 12RF Dose Instruction: Inhale 1 puff by mouth once daily Rx Instructions: Inhale 1 puff by mouth once daily albuterol sulfate 90 mcg/actuation HFA aerosol inhaler 1 - 2 puff Inhalation Q4H PRN Qty: 8.5 6RF azithromycin 250 mg tablet See Rx Instructions .ROUTE .COMPLEX Qty: 90 3RF Dose Instruction: Take 1 tablet by mouth once daily Rx Instructions: Take 1 tablet by mouth once daily magnesium oxide 400 mg (241.3 mg magnesium) Tablet 400 mg PO HS Qty: 30 0RF torsemide 20 mg tablet 20 mg PO DAILY Patient Comments: TAKE 1 TABLET BY MOUTH ONCE DAILY naloxone [Narcan] 4 mg/actuation [place],Non-Aerosol 4 mg Intranasal PRN PRN (Reason: excessive sedation) methylphenidate HCl [Ritalin] 20 mg Tablet 20 mg PO BID insulin aspart U-100 [Novolog FlexPen U-100 Insulin] 100 unit/mL (3 mL) insulin pen 0 sliding scale dose SUBCUT AC Rx Instructions: MAXIMUM OF 50 UNITS PER 24 HOURS bupropion HCl 200 mg tablet sustained-release 12 hr 200 mg PO QAM Patient Comments: TAKE 1 TABLET BY MOUTH ONCE DAILY IN THE MORNING Januvia 100 mg tablet 100 mg PO DAILY Levemir FlexTouch U100 Insulin 100 unit/mL (3 mL) insulin pen 12 unit SUBCUT HS fluticasone propion-salmeterol [Advair HFA] 230-21 mcg/actuation HFA aerosol inhaler 1 puff INHALATION BID Discharge Instructions Instructions: COPD (Chronic Obstructive Pulmonary Disease) (ED) HPI General Date/Time Provider Initiated Documentation: 04/27/23 11:45. HPI Narrative: 52-year-old female history of obesity, COPD presents with shortness of breath of the last several days, cough, on 2 L home O2, also has noted some skin erosions on abdominal pannus; denies history of coronary disease or thromboembolic disease Related Data Home Medications Medication Instructions Recorded Confirmed desvenlafaxine succinate 100 mg 100 mg PO DAILY 03/21/14 04/27/23 tablet,extended release 24 hr (Pristiq) aripiprazole 10 mg tablet (Abilify) 10 mg PO DAILY 04/22/17 04/27/23 atenolol 50 mg tablet 50 mg PO DAILY 04/22/17 04/27/23 fenofibrate 160 mg tablet 160 mg PO DAILY 04/22/17 04/27/23 nystatin 500 million unit oral 1 ea PO TID PRN 04/22/17 04/27/23 powder lisinopril 20 mg tablet 40 mg PO DAILY 04/23/17 04/27/23 naloxone 4 mg/actuation nasal 4 mg intranasal PRN PRN excessive 04/29/18 04/27/23 spray (Narcan) sedation methylphenidate HCl 20 mg tablet 20 mg PO BID 11/15/18 04/27/23 (Ritalin) rosuvastatin 40 mg tablet 40 mg PO HS 04/12/19 04/27/23 bupropion HCl 200 mg tablet,12 hr 200 mg PO QAM 01/15/21 04/27/23 sustained-release fluticasone propionate 230 1 puff inhalation BID 01/15/21 04/27/23 mcg-salmeterol 21 mcg/actuation HFA inhaler (Advair HFA) insulin aspart U-100 100 unit/mL 0 sliding scale dose subcut AC 01/15/21 04/27/23 (3 mL) subcutaneous pen (Novolog FlexPen U-100 Insulin aspart) insulin detemir U-100 100 unit/mL 12 unit subcut HS 01/15/21 04/27/23 (3 mL) subcutaneous pen (Levemir FlexTouch U-100 Insulin) sitagliptin phosphate 100 mg 100 mg PO DAILY 01/15/21 04/27/23 tablet (Januvia) magnesium oxide 400 mg (241.3 mg 400 mg PO HS #30 tabs 08/22/21 04/27/23 magnesium) tablet ipratropium 0.5 mg-albuterol 3 mg 3 ml inhalation Q4H PRN wheezing 10/12/21 04/27/23 (2.5 mg base)/3 mL nebulization #540 mL soln torsemide 20 mg tablet 20 mg PO DAILY 11/04/21 04/27/23 umeclidinium 62.5 mcg/actuation See Rx Instructions .Route 05/20/22 04/27/23 blister powder for inhalation .COMPLEX #30 ea (Incruse Ellipta) albuterol sulfate 90 mcg/actuation 1 - 2 puff inhalation Q4H PRN #8.5 11/21/22 04/27/23 aerosol inhaler grams azithromycin 250 mg tablet See Rx Instructions .Route 11/27/22 04/27/23 .COMPLEX #90 tabs oxycodone 15 mg tablet 15 mg PO TID PRN 02/25/23 04/27/23 Previous Rx's Medication Instructions Recorded magnesium oxide 400 mg (241.3 mg 400 mg PO HS #30 tabs 08/22/21 magnesium) tablet ipratropium 0.5 mg-albuterol 3 mg 3 ml inhalation Q4H PRN wheezing 10/12/21 (2.5 mg base)/3 mL nebulization #540 mL soln umeclidinium 62.5 mcg/actuation See Rx Instructions .Route 05/20/22 blister powder for inhalation .COMPLEX #30 ea (Incruse Ellipta) albuterol sulfate 90 mcg/actuation 1 - 2 puff inhalation Q4H PRN #8.5 11/21/22 aerosol inhaler grams azithromycin 250 mg tablet See Rx Instructions .Route 11/27/22 .COMPLEX #90 tabs Allergies Allergy/AdvReac Type Severity Reaction Status Date / Time amoxicillin Allergy Skin Rash Unverified 04/27/23 11:55 Sulfa (Sulfonamide Allergy Diarrhea Unverified 04/27/23 11:55 Antibiotics) varenicline [From Chantix] AdvReac Mild Nightmares Verified 04/27/23 11:55 General Stated Complaint: RespSymp HEATHER: 2 Review of Systems Narrative: Review of Systems Constitutional: negative Eyes: negative ENT: negative Cardiovascular: negative Respiratory: Shortness of breath Gastrointestinal: negative : negative Musculoskeletal: negative Skin: Skin erosion Neurologic: negative Psych: negative Exam Narrative Exam Narrative: Physical Examination General: alert, awake, cooperative, mild to moderate respiratory distress HEENT: normocephalic, atraumatic; PERRL, EOM intact, conjunctiva normal; no nasal discharge; moist mucous membranes, oral and pharyngeal mucosa normal, tolerating secretions Neck: supple, trachea midline; full ROM Chest: normal to inspection Respiratory: Quiet lungs bilaterally, mild expiratory wheeze, speaking in short sentences Cardiac: regular rate, regular rhythm, S1S2 intact, no murmurs rubs or gallops GI: abdomen soft, non-tender, non-distended; no palpable mass or hepatosplenomegaly; large abdominal pannus, superficial skin erosion where pannus touches legs bilaterally no signs of purulence fluctuance or crepitus Skin: See GI Neuro: AAOx3, normal speech, moving all extremities Extremities: Chronic venous stasis changes bilateral lower extremities minimal ankle edema bilaterally Psych: Appropriate mood and affect Course Vital Signs Vital signs: Vital Signs Respiratory Rate 21 04/27/23 11:50 Temperature 36.6 C 04/27/23 11:58 Temperature Source Temporal Artery Scan 04/27/23 11:58 Pulse 89 04/27/23 12:02 Pulse 87 04/27/23 12:02 Respiratory Rate 15 04/27/23 12:02 Respiratory Effort Short of Breath, Accessory Muscle Use, Pursed Lip, Incrsd Work of Breathing 04/27/23 12:03 Blood Pressure 215/112 H 04/27/23 12:02 Blood Pressure Mean 148 04/27/23 12:02 Blood Pressure Position Sitting 04/27/23 11:58 Pulse Oximetry 88 L 04/27/23 12:02 Oxygen Delivery Method Nasal Cannula 04/27/23 11:58 Oxygen Flow Rate 6 04/27/23 11:58 Pain Level 7 04/27/23 11:58 Comment oxy at 10am 04/27/23 11:58 Medical Decision Making 52-year-old female history of COPD, obesity presents with shortness of breath over the last several days with nonproductive cough, usually on 2 L home O2 now requiring approximately 4-6, no to be hypertensive on arrival, minimal ankle edema bilaterally, quiet lung hernandez bilaterally with expiratory wheeze, negative bedside ultrasound for B-lines, high clinical suspicion for COPD exacerbation, muscles consider early pneumonia versus viral illness, must also consider component of CHF lower suspicion for ACS PE or aortic pathology given history and physical. Stat portable chest x-ray, nebs, dexamethasone, basic labs, viral panel close reassessment patient adamant that she does not want to be on BiPAP has been on BiPAP in the past, if no improvement of oxygenation and respiratory status will consider BiPAP after anxiolysis. 13: 50 patient resting comfortably feeling much better after nebs and steroids, lungs clear, down titrated nasal cannula to 4 L, patient has O2 at home and wishes to go home at this time. Quality:SDOH Health Related Social Needs: No Data to Display PFSH All Active Problems (Updated 04/27/23 @ 13:50 by Rajendra Ying MD) COPD with exacerbation (Acute) Pneumonia (Acute) Dyspnea (Acute) Medication monitoring encounter (Acute) Pneumonia (Acute) Contraceptive management (Acute) COPD (chronic obstructive pulmonary disease) (Chronic) GERD (gastroesophageal reflux disease) (Chronic) Abnormal uterine bleeding (Acute) Mood disorder (Acute) Hypercalcemia (Acute) HTN (hypertension) (Chronic) HELEN (obstructive sleep apnea) (Chronic) Tobacco abuse (Chronic) Diabetes mellitus (Chronic) COPD with acute exacerbation (Acute) Primary osteoarthritis of both knees (Chronic 05/01/15) Medical History Chronic atrophic candidosis Depression with anxiety Diabetes mellitus type 2 in obese Hyperlipidemia Morbid obesity HELEN (obstructive sleep apnea) Smoker Surgical History Bilat partial saplinectomy Cholecystectomy (12/07/15) LAPAROSCOPIC WITH INTRAOPERATIVE CHOLANGIOGRAM/[facility] Ligation of fallopian tube Open Carpal Tunnel release Repair of umbilical hernia Tonsillectomy and adenoidectomy Family History Other COPD (chronic obstructive pulmonary disease) Cancer Social History Smoking/Tobacco Use Status: Former Tobacco Use Quit status: considering quitting Second Hand Exposure: Yes Smoking risk assessment performed?: Yes Alcohol Intake: current Alcohol Intake frequency: holidays/special occasions only Drug use: Never Substance use type: does not use, opiates and painkillers Housing: house Current gender identity: female Do you feel safe at home: Yes Do you feel safe in your relationship?: Yes Additional Social history: Lives with a roomate, Douglas Harmon. History History 5 Para 2 Hx # Term Pregnancies Multiple births Hx # Pregnancies Ectopic pregnancies AB induced Hx Number of Living Children AB spontaneous
--- NOTE | 2023-04-27 12:35 | DI.VRAD_ITS ---
PROCEDURE INFORMATION: Exam: XR Chest Exam date and time: 04/27/2023 12:09 PM Age: 52 years old Clinical indication: Other: Copd exacerbation TECHNIQUE: Imaging protocol: Radiologic exam of the chest. Views: 1 view. COMPARISON: XR PORTABLE CHEST AP 11/04/2021 8:45 AM FINDINGS: Lungs: There are retrocardiac atelectasis/early infiltrates. Pleural spaces: Blunting of bilateral costophrenic angle that might be related to small effusions versus atelectasis. Heart/Mediastinum: Mild cardiomegaly. Prominent pulmonary artery suggestive of pulmonary hypertension. Vasculature: Unfolding of the thoracic aorta. Bones/joints: Moderate degenerative disease of the right acromioclavicular joint. IMPRESSION: Retrocardiac atelectasis/early infiltrates. Dictated and Authenticated by: Nick Lowe MD. Ordering:CELESTE Drew MD
[2023-04-27 12:42] LABS: Absolute Basophil Count 0.04 10^3/uL (0.0-0.2); Absolute Lymphocyte Count 2.07 10^3/uL (1.2-3.4); Absolute Monocyte Count 0.64 10^3/uL (0.1-0.8); Absolute Neutrophil Count 6.05 10^3/uL (1.2-6.7); Basophils % 0.4; HCT 47.6 % (36.0-46.0); HGB 14.9 g/dL (11.2-15.7); Immature Grans % 1.1; Lymphocytes % 23.3; MCH 29.4 pg (27.0-33.0); MCHC 31.3 % (32.0-36.0); MCV 94 fL (80-95); Monocytes % 7.2; Platelet Count 214 10^3/uL (130-400); RBC 5.07 10^6/uL (3.93-5.22); RDW 15.2 % (11.7-14.6)
[2023-04-27 12:55] LABS: ALT 15 U/L (14-59); AST 13 U/L (15-37); Albumin 3.5 g/dL (3.4-5.0); Alkaline Phosphatase 79 U/L (46-116); Anion Gap 5.5 mmol/L (3-11); BUN 13 mg/dL (7-18); Bilirubin, Total 0.4 mg/dL (0.2-1.0); CO2 34.5 mmol/L (21.0-32.0); CREATININE 0.7 mg/dL (0.55-1.02); Calcium 10.1 mg/dL (8.5-10.1); Chloride 101 mmol/L (98-107); Estimated GFR 103.35 (mL/min/1.73m2); Glucose 222 mg/dL (74-106); Potassium 4.4 mmol/L (3.5-5.1); Sodium 141 mmol/L (136-145); Total Protein 8.1 g/dL (6.4-8.2)
[2023-04-27 13:00] LABS: COVID-19 PCR Negative (Negative); Influenza A PCR Negative (Negative); Influenza B PCR Negative (Negative); RSV PCR Negative (Negative)
[2023-04-27 13:01] LABS: Source Nasopharynx
[2023-04-27 13:05] VITALS: PULSE 86; RESP 32; O2SAT 84
[2023-04-27] MEDS: Albuterol/Ipratropium 3 ML UPD VIAL 9 ML UPD (13:05)
[2023-04-27] MEDS: AZITHROMYCIN 500 MG in Normal Saline 250 ML 250 MG IVPB (13:08)
[2023-04-27] MEDS: Dexamethasone 10 MG/ML VIAL IVP (13:08)
[2023-04-27 13:52] VITALS: PULSE 92; RESP 20; O2SAT 87
== END 2023-04-27 14:10 | disposition home or self-care (01) ==
LOC: ER 13:53
PROVIDERS: Emergency Provider Emergency Medicine; PCP Physician Assistant Medical
DX: J44.1 Chronic obstructive pulmonary disease with (acute) exacerbation (principal); E11.9 Type 2 diabetes mellitus without complications; E78.5 Hyperlipidemia, unspecified; Z11.52 Encounter for screening for COVID-19; Z79.4 Long term (current) use of insulin; Z99.81 Dependence on supplemental oxygen; Z87.891 Personal history of nicotine dependence
CPT/HCPCS: 80053; 87637; 94640; 96365; 96375; 99285; 71045; 85025; 99284; J0456; J1100; J7620

== ENCOUNTER 2023-05-07 13:06 | Outpatient (REF) | payer MEDICARE, MEDICAID, SELFPAY | END 2023-05-07 13:07 | disposition home or self-care (01) | LOC: NCHCN 13:06 | PROVIDERS: PCP Physician Assistant Medical; Visit Provider Physician Assistant Medical | DX: E78.5 Hyperlipidemia, unspecified (principal); E11.9 Type 2 diabetes mellitus without complications; E83.42 Hypomagnesemia | CPT/HCPCS: 87480; 87510; 87660 ==

== ENCOUNTER 2023-05-27 14:34 | Outpatient (REF) | payer MEDICARE, MEDICAID, SELFPAY ==
[2023-05-30 00:16] LABS: HSV 1 DNA Result Negative (Negative); HSV 2 DNA Result Negative (Negative)
== END 2023-05-27 14:35 | disposition home or self-care (01) ==
LOC: NCHCN 14:34
PROVIDERS: PCP Physician Assistant Medical; Visit Provider Nurse Practitioner Family
DX: N90.89 Other specified noninflammatory disorders of vulva and perineum (principal)
CPT/HCPCS: 87529; 87480; 87510; 87660

== ENCOUNTER 2023-06-11 14:34 | Outpatient (REF) | payer MEDICARE, MEDICAID, SELFPAY ==
[2023-06-12 13:37] LABS: HSV 1 DNA Result Negative (Negative); HSV 2 DNA Result Negative (Negative)
== END 2023-06-11 14:35 | disposition home or self-care (01) ==
LOC: LBN 14:34
PROVIDERS: PCP Physician Assistant Medical; Visit Provider Nurse Practitioner Women's Health
DX: N76.0 Acute vaginitis (principal)
CPT/HCPCS: 87529; 87480; 87510; 87660

== ENCOUNTER 2023-07-06 11:11 | Emergency (ER) | payer MEDICARE, MEDICAID, SELFPAY ==
[2023-07-06 11:22] VITALS: BP 187/85; PULSE 80; RESP 20; TEMP 37.6; O2SAT 94
[2023-07-06 11:38] VITALS: BP 187/85; PULSE 80; RESP 20; TEMP 37.6; O2SAT 94
--- NOTE | 2023-07-06 12:04 | W.ED.GENAD ---
Discharge Plan Disposition Patient Disposition: Home Discharge Details Clinical Impression: Skin ulcer of abdominal wall, Genital labial ulcer Primary Care Provider: Maria Del Carmen Nogueira ED Provider: Johnathon Toledo Home Meds and New Rx's Prescriptions: Continued oxycodone 15 mg tablet 15 mg PO TID PRN rosuvastatin 40 mg tablet 40 mg PO HS desvenlafaxine succinate [Pristiq] 100 MG tablet extended release 24 hr 100 mg PO DAILY atenolol 50 MG tablet 50 mg PO DAILY aripiprazole [Abilify] 10 MG tablet 10 mg PO DAILY nystatin 1 EACH powder 1 ea PO TID PRN fenofibrate 160 MG tablet 160 mg PO DAILY lisinopril 20 MG tablet 40 mg PO DAILY ipratropium-albuterol 0.5 mg-3 mg(2.5 mg base)/3 mL solution for nebulization 3 ml inhalation Q4H PRN (Reason: wheezing) Qty: 540 12RF albuterol sulfate 90 mcg/actuation HFA aerosol inhaler 1 - 2 puff Inhalation Q4H PRN Qty: 8.5 6RF azithromycin 250 mg tablet See Rx Instructions .ROUTE .COMPLEX Qty: 90 3RF Dose Instruction: Take 1 tablet by mouth once daily Rx Instructions: Take 1 tablet by mouth once daily Incruse Ellipta 62.5 mcg/actuation blister with device See Rx Instructions .ROUTE .COMPLEX Qty: 30 12RF Dose Instruction: Inhale 1 puff by mouth once daily Rx Instructions: Inhale 1 puff by mouth once daily magnesium oxide 400 mg (241.3 mg magnesium) Tablet 400 mg PO HS Qty: 30 0RF torsemide 20 mg tablet 20 mg PO DAILY PRN Patient Comments: TAKE 1 TABLET BY MOUTH ONCE DAILY naloxone [Narcan] 4 mg/actuation [place],Non-Aerosol 4 mg Intranasal PRN PRN (Reason: excessive sedation) methylphenidate HCl [Ritalin] 20 mg Tablet 20 mg PO BID insulin aspart U-100 [Novolog FlexPen U-100 Insulin] 100 unit/mL (3 mL) insulin pen 0 sliding scale dose SUBCUT AC Rx Instructions: MAXIMUM OF 50 UNITS PER 24 HOURS bupropion HCl 200 mg tablet sustained-release 12 hr 200 mg PO QAM Patient Comments: TAKE 1 TABLET BY MOUTH ONCE DAILY IN THE MORNING Januvia 100 mg tablet 100 mg PO DAILY fluticasone propion-salmeterol [Advair HFA] 230-21 mcg/actuation HFA aerosol inhaler 1 puff INHALATION BID Discharge Instructions Instructions: Chronic Wound Care (ED) Additional Instructions: Please keep your follow-up appointments for reassessment later this week. If you notice significant worsening of symptoms or change in symptoms including fever chills, rapid spread ulcers or other concerns feel free to return the emergency department for reassessment. Please use moisture pads on top of medications you are already using such as the fungal powder and the pain topical medication. Also continue to use your oral oxycodone for pain control. Referrals: Maria Del Carmen Nogueira PA [Primary Care Provider] - (Keep your appointment as scheduled) Discharge Data Discharge Date/Time-TO BE ENTERED AT DEPARTURE: 07/06/23 12:31 HPI General Mode of arrival: ambulatory. Date/Time Provider Initiated Documentation: 07/06/23 11:27. Limitations to Documentation: no limitations. Information obtained by: patient, family and RN notes reviewed. History of Present Illness 53 year old F presents to the emergency department with the chief complaint of Chronic skin sores, described as moderate and similar to prior episodes, Patient started experiencing this year(s) (1-2) and it has been constant. No relieving factors improve symptom(s), No exacerbating factors reported . Patient notes denies fever/chills, malaise and nausea/vomiting. Related Data Home Medications Medication Instructions Recorded Confirmed desvenlafaxine succinate 100 mg 100 mg PO DAILY 03/21/14 07/06/23 tablet,extended release 24 hr (Pristiq) aripiprazole 10 mg tablet (Abilify) 10 mg PO DAILY 04/22/17 07/06/23 atenolol 50 mg tablet 50 mg PO DAILY 04/22/17 07/06/23 fenofibrate 160 mg tablet 160 mg PO DAILY 04/22/17 07/06/23 nystatin 500 million unit oral 1 ea PO TID PRN 04/22/17 07/06/23 powder lisinopril 20 mg tablet 40 mg PO DAILY 04/23/17 07/06/23 naloxone 4 mg/actuation nasal 4 mg intranasal PRN PRN excessive 04/29/18 07/06/23 spray (Narcan) sedation methylphenidate HCl 20 mg tablet 20 mg PO BID 11/15/18 07/06/23 (Ritalin) rosuvastatin 40 mg tablet 40 mg PO HS 04/12/19 07/06/23 bupropion HCl 200 mg tablet,12 hr 200 mg PO QAM 01/15/21 07/06/23 sustained-release fluticasone propionate 230 1 puff inhalation BID 01/15/21 07/06/23 mcg-salmeterol 21 mcg/actuation HFA inhaler (Advair HFA) insulin aspart U-100 100 unit/mL 0 sliding scale dose subcut AC 01/15/21 07/06/23 (3 mL) subcutaneous pen (Novolog FlexPen U-100 Insulin aspart) sitagliptin phosphate 100 mg 100 mg PO DAILY 01/15/21 07/06/23 tablet (Januvia) magnesium oxide 400 mg (241.3 mg 400 mg PO HS #30 tabs 08/22/21 07/06/23 magnesium) tablet ipratropium 0.5 mg-albuterol 3 mg 3 ml inhalation Q4H PRN wheezing 10/12/21 07/06/23 (2.5 mg base)/3 mL nebulization #540 mL soln torsemide 20 mg tablet 20 mg PO DAILY PRN 11/04/21 07/06/23 albuterol sulfate 90 mcg/actuation 1 - 2 puff inhalation Q4H PRN #8.5 11/21/22 07/06/23 aerosol inhaler grams azithromycin 250 mg tablet See Rx Instructions .Route 11/27/22 07/06/23 .COMPLEX #90 tabs oxycodone 15 mg tablet 15 mg PO TID PRN 02/25/23 07/06/23 umeclidinium 62.5 mcg/actuation See Rx Instructions .Route 06/23/23 07/06/23 blister powder for inhalation .COMPLEX #30 ea (Incruse Ellipta) Previous Rx's Medication Instructions Recorded magnesium oxide 400 mg (241.3 mg 400 mg PO HS #30 tabs 08/22/21 magnesium) tablet ipratropium 0.5 mg-albuterol 3 mg 3 ml inhalation Q4H PRN wheezing 10/12/21 (2.5 mg base)/3 mL nebulization #540 mL soln albuterol sulfate 90 mcg/actuation 1 - 2 puff inhalation Q4H PRN #8.5 11/21/22 aerosol inhaler grams azithromycin 250 mg tablet See Rx Instructions .Route 11/27/22 .COMPLEX #90 tabs umeclidinium 62.5 mcg/actuation See Rx Instructions .Route 06/23/23 blister powder for inhalation .COMPLEX #30 ea (Incruse Ellipta) Allergies Allergy/AdvReac Type Severity Reaction Status Date / Time zinc Allergy Mild Skin Rash Verified 07/06/23 11:18 amoxicillin Allergy Skin Rash Unverified 07/06/23 11:18 Sulfa (Sulfonamide Allergy Diarrhea Unverified 07/06/23 11:18 Antibiotics) varenicline [From Chantix] AdvReac Mild Nightmares Verified 07/06/23 11:18 General Stated Complaint: Cellulitis HEATHER: 3 Review of Systems Constitutional Constitutional: Denies chills, Denies fever(s) and Denies malaise Gastrointestinal Gastrointestinal: Denies abdominal pain, Denies nausea and Denies vomiting Genitourinary Genitourinary: Denies hematuria, Reports dysuria (Due to skin irritation), Denies pelvic pain and Denies urinary incontinence Integumentary/Breasts Skin/Breast: Reports as per HPI and Reports skin ulcer Exam Const General: cooperative and no acute distress Nutritional Appearance: obese morbidly obese Orientation: alert, awake and oriented x3 GI Inspection: large pannus, obesity and other (Within abdominal folds stage II ulcers noted with no significant surroundin) External Female Exam: externally tender, external swelling and lesion (Right labial ulceration) Course Vital Signs Vital signs: Vital Signs Temperature 37.6 C H 07/06/23 11:22 Pulse 80 07/06/23 11:22 Respiratory Rate 20 07/06/23 11:22 Blood Pressure 187/85 H 07/06/23 11:22 Pulse Oximetry 94 07/06/23 11:22 Temperature 37.6 C H 07/06/23 11:38 Temperature Source Temporal Artery Scan 07/06/23 11:38 Pulse 80 07/06/23 11:38 Respiratory Rate 20 07/06/23 11:38 Respiratory Effort Short of Breath, Pursed Lip, Tripod 07/06/23 11:25 Blood Pressure 187/85 H 07/06/23 11:38 Blood Pressure Position Sitting 07/06/23 11:38 Pulse Oximetry 94 07/06/23 11:38 Oxygen Delivery Method Nasal Cannula 07/06/23 11:38 Oxygen Flow Rate 4 07/06/23 11:38 Pain Level 10 07/06/23 11:38 Comment 15mg oxy this AM 07/06/23 11:38 Medical Decision Making Patient presenting to the emergency department for chronic sores. She reports that these have been going on for 1 to 2 years with initial improvement after 8 months of home health but over the last 6 months or more she has noted a return of the symptoms and continued discomfort. Patient reports that she has seen 4 different providers with multiple medications and is currently on topical pain medications that somewhat help and some nystatin powder. Patient has significant past medical history of diabetes, morbid obesity, obstructive sleep apnea, chronic atrophic candidiasis. Physical exam shows significant obesity with very large pannus, within abdominal folds there is noted skin ulceration with slight erythema surrounding but not consistent with cellulitis. No bleeding is noted. Right external labia does show ulceration that is also present but no bleeding is noted. Patient reports her main concern of being here is pain with urination but not so much of the urethra but of the external skin. Patient denies fever or chills, all systemic symptoms are at baseline. Reviewed previous notes and noted that patient has been following up for these lesions with gynecology who has performed swabs for zoster along with other testing. Patient has zinc allergy which makes it difficult for barrier creams. Did provide patient with barrier pads otherwise I do not feel that patient needs antibiotics at this time, patient states both primary care and gynecology follow-up later this week. She is on oral opioids for pain control along with topical pain meds and nystatin. I do feel these are appropriate and again given patient's allergies along with nonintact skin making it difficult to treat. Patient educated on moisture pads to see if that will help along with positioning to allow some air flow to the area. Patient otherwise encouraged to follow-up with primary care provider as already arranged. After discussion of diagnosis and plan of care patient has no further needs, questions, or concerns and states clear understanding to return to the emergency department for any worsening symptoms. This documentation was generated using [employer] system, please disregard any oddities of phrase or misspellings. Quality:SDOH Health Related Social Needs: No Data to Display PFSH All Active Problems Genital labial ulcer (Acute) Skin ulcer of abdominal wall (Acute) Pneumonia (Acute) Dyspnea (Acute) Medication monitoring encounter (Acute) Pneumonia (Acute) Contraceptive management (Acute) COPD (chronic obstructive pulmonary disease) (Chronic) GERD (gastroesophageal reflux disease) (Chronic) Abnormal uterine bleeding (Acute) Mood disorder (Acute) Hypercalcemia (Acute) HTN (hypertension) (Chronic) HELEN (obstructive sleep apnea) (Chronic) Tobacco abuse (Chronic) Diabetes mellitus (Chronic) COPD with acute exacerbation (Acute) Primary osteoarthritis of both knees (Chronic 05/01/15) Medical History Smoker Diabetes mellitus type 2 in obese Hyperlipidemia Chronic atrophic candidosis Morbid obesity HELEN (obstructive sleep apnea) Depression with anxiety Surgical History Ligation of fallopian tube Tonsillectomy and adenoidectomy Open Carpal Tunnel release Repair of umbilical hernia Cholecystectomy (12/07/15) [facility]OSCOPIC [facility] Bilat partial saplinectomy Family History Other COPD (chronic obstructive pulmonary disease) Cancer Social History Smoking/Tobacco Use Status: Current every day Tobacco Type: cigarettes Tobacco: How many years used: 40 Quit status: considering quitting Second Hand Exposure: Yes Smoking risk assessment performed?: Yes Alcohol Intake: never Drug use: Never Substance use type: does not use, opiates and painkillers Housing: house Current gender identity: female What is your relationship status?: living with partner Panel score (0-1 are the most socially isolated patients): 1 What type of physical activity do you participate in: none Seatbelt use: always Helmet use: Yes Do you feel safe at home: Yes Do you feel safe in your relationship?: Yes Additional Social history: Lives with a roomate, Douglas Harmon. History History 5 Para 2 Hx # Term Pregnancies Multiple births Hx # Pregnancies Ectopic pregnancies AB induced Hx Number of Living Children AB spontaneous
== END 2023-07-06 12:31 | disposition home or self-care (01) ==
PROVIDERS: Emergency Provider Nurse Practitioner Family; PCP Physician Assistant Medical
DX: E11.622 Type 2 diabetes mellitus with other skin ulcer (principal); L98.491 Non-pressure chronic ulcer of skin of other sites limited to breakdown of skin; N76.6 Ulceration of vulva; E66.01 Morbid (severe) obesity due to excess calories; E78.5 Hyperlipidemia, unspecified; F17.210 Nicotine dependence, cigarettes, uncomplicated; Z79.4 Long term (current) use of insulin; Z79.84 Long term (current) use of oral hypoglycemic drugs; Z99.81 Dependence on supplemental oxygen
CPT/HCPCS: 99283

== ENCOUNTER 2023-07-25 12:47 | Inpatient (IN) | payer MEDICARE, MEDICAID, SELFPAY ==
[2023-07-25] VITALS (34 sets, daily range): BP systolic 134–177; BP diastolic 60–83; PULSE 82–95; RESP 3–36; TEMP 36–37; O2SAT 80–95
--- NOTE | 2023-07-25 13:11 | W.ED.GENAD ---
Discharge Plan Disposition Patient Disposition: Admit to [facility] Discharge Details Clinical Impression: Hypoxic respiratory failure, COPD exacerbation Primary Care Provider: Maria Del Carmen Nogueira ED Provider: Sergio Siegel Home Meds and New Rx's Prescriptions: No Action oxycodone 15 mg tablet 15 mg PO TID PRN rosuvastatin 40 mg tablet 40 mg PO HS desvenlafaxine succinate [Pristiq] 100 MG tablet extended release 24 hr 100 mg PO DAILY atenolol 50 MG tablet 50 mg PO DAILY aripiprazole [Abilify] 10 MG tablet 10 mg PO DAILY nystatin 1 EACH powder 1 ea PO TID PRN fenofibrate 160 MG tablet 160 mg PO DAILY lisinopril 20 MG tablet 40 mg PO DAILY ipratropium-albuterol 0.5 mg-3 mg(2.5 mg base)/3 mL solution for nebulization 3 ml inhalation Q4H PRN (Reason: wheezing) Qty: 540 12RF albuterol sulfate 90 mcg/actuation HFA aerosol inhaler 1 - 2 puff Inhalation Q4H PRN Qty: 8.5 6RF azithromycin 250 mg tablet See Rx Instructions .ROUTE .COMPLEX Qty: 90 3RF Dose Instruction: Take 1 tablet by mouth once daily Rx Instructions: Take 1 tablet by mouth once daily Incruse Ellipta 62.5 mcg/actuation blister with device See Rx Instructions .ROUTE .COMPLEX Qty: 30 12RF Dose Instruction: Inhale 1 puff by mouth once daily Rx Instructions: Inhale 1 puff by mouth once daily magnesium oxide 400 mg (241.3 mg magnesium) Tablet 400 mg PO HS Qty: 30 0RF torsemide 20 mg tablet 20 mg PO DAILY PRN Patient Comments: TAKE 1 TABLET BY MOUTH ONCE DAILY naloxone [Narcan] 4 mg/actuation Shannon,Non-Aerosol 4 mg Intranasal PRN PRN (Reason: excessive sedation) methylphenidate HCl [Ritalin] 20 mg Tablet 20 mg PO BID insulin aspart U-100 [Novolog FlexPen U-100 Insulin] 100 unit/mL (3 mL) insulin pen 0 sliding scale dose SUBCUT AC Rx Instructions: MAXIMUM OF 50 UNITS PER 24 HOURS bupropion HCl 200 mg tablet sustained-release 12 hr 200 mg PO QAM Patient Comments: TAKE 1 TABLET BY MOUTH ONCE DAILY IN THE MORNING Januvia 100 mg tablet 100 mg PO DAILY fluticasone propion-salmeterol [Advair HFA] 230-21 mcg/actuation HFA aerosol inhaler 1 puff INHALATION BID HPI General Date/Time Provider Initiated Documentation: 07/25/23 13:11. HPI Narrative: 53 year-old female presents to ED today by POV/wheelchair with her with a chief complaint of back and chest pain with onset two days ago. Patient is morbidly obese, sedentary, has ongoing severe soft tissue infection in folds of pannis, uses home O2 at 3.5L, endorses cough and chest pain two days ago, now having pleuritic R paraspinal thoracic back pain worse with deep inspiration. Quality described as sharp, no radiation to fever, intractable nausea/vomiting, active chest pain or tachycardia, has noted that her O2 sat has been worse lately. Severity is described as moderate. Palliating factors include nothing specific attempted. Provoking factors include nothing specific. Events leading up to the incident/Associated Symptoms: Patient denies known cancer. Patient not anticoagulated. Related Data Home Medications Medication Instructions Recorded Confirmed desvenlafaxine succinate 100 mg 100 mg PO DAILY 03/21/14 07/25/23 tablet,extended release 24 hr (Pristiq) aripiprazole 10 mg tablet (Abilify) 10 mg PO DAILY 04/22/17 07/25/23 atenolol 50 mg tablet 50 mg PO DAILY 04/22/17 07/25/23 fenofibrate 160 mg tablet 160 mg PO DAILY 04/22/17 07/25/23 nystatin 500 million unit oral 1 ea PO TID PRN 04/22/17 07/25/23 powder lisinopril 20 mg tablet 40 mg PO DAILY 04/23/17 07/25/23 naloxone 4 mg/actuation nasal 4 mg intranasal PRN PRN excessive 04/29/18 07/25/23 spray (Narcan) sedation methylphenidate HCl 20 mg tablet 20 mg PO BID 11/15/18 07/25/23 (Ritalin) rosuvastatin 40 mg tablet 40 mg PO HS 04/12/19 07/25/23 bupropion HCl 200 mg tablet,12 hr 200 mg PO QAM 01/15/21 07/25/23 sustained-release fluticasone propionate 230 1 puff inhalation BID 01/15/21 07/25/23 mcg-salmeterol 21 mcg/actuation HFA inhaler (Advair HFA) insulin aspart U-100 100 unit/mL 0 sliding scale dose subcut AC 01/15/21 07/25/23 (3 mL) subcutaneous pen (Novolog FlexPen U-100 Insulin aspart) sitagliptin phosphate 100 mg 100 mg PO DAILY 01/15/21 07/25/23 tablet (Januvia) magnesium oxide 400 mg (241.3 mg 400 mg PO HS #30 tabs 08/22/21 07/25/23 magnesium) tablet ipratropium 0.5 mg-albuterol 3 mg 3 ml inhalation Q4H PRN wheezing 10/12/21 07/25/23 (2.5 mg base)/3 mL nebulization #540 mL soln torsemide 20 mg tablet 20 mg PO DAILY PRN 11/04/21 07/25/23 albuterol sulfate 90 mcg/actuation 1 - 2 puff inhalation Q4H PRN #8.5 11/21/22 07/25/23 aerosol inhaler grams azithromycin 250 mg tablet See Rx Instructions .Route 11/27/22 07/25/23 .COMPLEX #90 tabs oxycodone 15 mg tablet 15 mg PO TID PRN 02/25/23 07/25/23 umeclidinium 62.5 mcg/actuation See Rx Instructions .Route 06/23/23 07/25/23 blister powder for inhalation .COMPLEX #30 ea (Incruse Ellipta) Previous Rx's Medication Instructions Recorded magnesium oxide 400 mg (241.3 mg 400 mg PO HS #30 tabs 08/22/21 magnesium) tablet ipratropium 0.5 mg-albuterol 3 mg 3 ml inhalation Q4H PRN wheezing 10/12/21 (2.5 mg base)/3 mL nebulization #540 mL soln albuterol sulfate 90 mcg/actuation 1 - 2 puff inhalation Q4H PRN #8.5 11/21/22 aerosol inhaler grams azithromycin 250 mg tablet See Rx Instructions .Route 11/27/22 .COMPLEX #90 tabs umeclidinium 62.5 mcg/actuation See Rx Instructions .Route 06/23/23 blister powder for inhalation .COMPLEX #30 ea (Incruse Ellipta) Allergies Allergy/AdvReac Type Severity Reaction Status Date / Time zinc Allergy Mild Skin Rash Verified 07/25/23 13:00 amoxicillin Allergy Skin Rash Unverified 07/25/23 13:00 Sulfa (Sulfonamide Allergy Diarrhea Unverified 07/25/23 13:00 Antibiotics) varenicline [From Chantix] AdvReac Mild Nightmares Verified 07/25/23 13:00 General Stated Complaint: Nk/Back Pain HEATHER: 4 Review of Systems All systems reviewed & are unremarkable except as noted in HPI and below Exam Narrative Exam Narrative: GENERAL APPEARANCE: Well-nourished, non-toxic, awake and alert, atraumatic, no acute distress. SKIN: Warm, pink, dry, intact, without rashes/lesions/ulcerations. HEAD: Normocephalic, atraumatic, normal hair distribution for gender/age. EYES: Pupils PERRLA, EOMs intact without nystagmus, normal conjunctiva, no exudates on lids/lashes. ENT: Nares patent, no circumoral cyanosis, no facial swelling NECK: Supple, trachea midline, painless cervical ROM. LUNGS/CHEST: Lungs CTA bilaterally, non-labored respirations, normal A/P diameter, symmetrical expansion, no chest wall deformity HEART (CV/PV): Regular rate and rhythm without murmur, no peripheral edema, no JVD. ABDOMEN: Soft, non-distended, no guarding. MSK: Normal ROM, no swelling/deformity to bilateral UEs or LEs, moving all extremities without weakness, no cyanosis, spine midline without tenderness, normal curvature. NEURO: Mental Status AAOx4 - alert to person, place, time, events No facial droop, no forehead involvement. Motor: No focal weakness - strength 5/5 in bilateral UEs and LEs, proximal and distal, symmetric. Sensory: sensation intact to light touch globally. Gait normal: patient ambulated without ataxia into ED room. PSYCH: euthymic, cooperative, pleasant, appropriate speech Course Vital Signs Vital signs: Vital Signs Temperature 37.0 C 07/25/23 12:50 Pulse 88 07/25/23 12:50 Respiratory Rate 26 H 07/25/23 12:50 Blood Pressure 177/83 H 07/25/23 12:50 Pulse Oximetry 93 07/25/23 12:50 Temperature 37.0 C 07/25/23 12:50 Temperature Source Tympanic 07/25/23 12:50 Pulse 88 07/25/23 12:50 Respiratory Rate 26 H 07/25/23 12:50 Blood Pressure 177/83 H 07/25/23 12:50 Blood Pressure Position Sitting 07/25/23 12:50 Pulse Oximetry 93 07/25/23 12:50 Oxygen Delivery Method Nasal Cannula 07/25/23 12:50 Oxygen Flow Rate 4 07/25/23 12:50 Pain Level 9 07/25/23 12:50 Comment took percocet at 1130am today and APAP at 0730 today 07/25/23 12:50 Medical Decision Making This dictation utilizes [id number] dictation software and may contain unedited grammatical errors. 53 year-old female presents to ED today by POV/wheelchair with her with a chief complaint of back and chest pain with onset two days ago. Patient is morbidly obese, sedentary, has ongoing severe soft tissue infection in folds of pannis, uses home O2 at 3.5L, endorses cough and chest pain two days ago, now having pleuritic R paraspinal thoracic back pain worse with deep inspiration. Quality described as sharp, no radiation to fever, intractable nausea/vomiting, active chest pain or tachycardia, has noted that her O2 sat has been worse lately. Severity is described as moderate. Palliating factors include nothing specific attempted. Provoking factors include nothing specific. Events leading up to the incident/Associated Symptoms: Patient denies known cancer. Patients' medical history: T2DM, hyperlipidemia, morbid obesity, HELEN, history of cholecystectomy, COPD, GERD, hypertension. Family and social history: no exercise regimen, poor diet. Pertinent exam findings / vital signs include pleuritic right posterior paraspinal thoracic back tenderness without crepitus, lungs have mild expiratory wheezes diffusely, no Rales at bases, benign abdomen, severe soft tissue chronic infection in the folds of the pannus likely mixed etiology fungal and bacterial, on antibiotics. Differential / pathologies of concern include ACS, PE, pneumonia, acute hypoxic respiratory failure, COPD exacerbation, cellulitis, sepsis. Diagnostic studies of: -CBC, CMP, BNP, troponin, lactate, CRP, VBG, procalcitonin, blood cultures, CTA chest PE study, EKG. -CBC shows no leukocytosis, no anemia -VBG shows chronic retainer of CO2 with a CO2 of 65 -CMP shows no major electrolyte abnormalities -CRP is elevated 8.5 -Lactate and procalcitonin are negative-do not suspect sepsis -Troponin negative, BNP is mildly elevated at 345 -EKG shows sinus rhythm at 88 bpm with P waves followed by narrow complex QRS with normal axis, good R wave progression, no T wave abnormalities, no ST depressions or reciprocal elevations, normal QT QTc -CTA of the chest shows RLL PNA Interventions of: -DuoNeb, magnesium for shortness of breath, IV solumedrol. IV ceftriaxone & Azithromycin for PNA. NS at maintenance rate. -Nystatin powder & mupirocin for pannis soft tissue wounds/ulcers - would need to be ordered from in-pt side ED Course/Assessment/Plan: 53-year-old female with morbid obesity and chronic COPD that is oxygen dependent presents with some chest pressure 2 days ago that is resolved now having pleuritic right-sided thoracic back pain worse with deep inspiration sharp in nature, lives a very sedentary lifestyle. Denies known cancer. Presents on 4 L by nasal cannula at 90% oxygen with a baseline use of 3.5 L. Patient's labs are unremarkable for sepsis or signs of severe infection, likely chronic retainer of CO2, no major signs of right heart strain on troponin and BNP and EKG is benign, is on active antibiotic treatment for her known pannus soft tissue infections that is likely mixed etiology fungal and bacterial with ulcerations. Plan to prescribe her nystatin and ibuprofen for these issues as she is already on oral antibiotics. She was given treatment for COPD exacerbation with a DuoNeb, magnesium for shortness of breath and IV Solu-Medrol while awaiting CTA PE study results for her pleuritic back pain. Patient became hypoxic after returning from DI @ 1515 - desat down to 85% on 4L O2 by TX- likely needs admission for COPD exacerbation/hypoxic respiratory failure. Consulted with Hospitalist Dr. Suarez who accepted for admission, CTA shows likely R lower lobe PNA, will need antibiotics. Ordering IV Ceftriaxone and Azithromycin. Disposition of COPD Exacerbation, Hypoxic Respiratory Failure. Patient verbalized understanding of the plan and return to ED criteria and engaged in shared decision making. Medical Records Medical records reviewed: Yes I reviewed the patient's medical records. Imaging Data Radiologic Study: Attestation: I personally reviewed and interpreted this imaging study as follows: Imaging: CT Scan My impression: No large PNA, do question R base infiltrate, cardiomegaly. Radiologist's impression: EXAM: CT CHEST PE CTA CLINICAL HISTORY: pleuritic back pain w deep inspiration, sedentary. TECHNIQUE: Imaging Protocol: Axial CT angiography was performed with multi-slice acquisition and multi-planar and/or 3D reconstructions. CONTRAST MATERIAL: Intravenous: Omnipaque 350 contrast volume:100 mL COMPARISON: CT CT CHEST LUNG CANCER SCREEN from 10/26/2021 FINDINGS: The examination is limited due to patient motion artifact. Tracheobronchial tree: Patent where visualized. Pulmonary parenchyma: There is a consolidation with air bronchograms in the right lower lobe suspicious for pneumonia. Smaller infiltrates are seen in the left lingula and the right middle lobe. Mild centrilobular emphysematous changes are present in the lungs. No architectural distortion. Pulmonary Arteries: The segmental and subsegmental pulmonary arteries are poorly evaluated secondary to motion artifact. No large central pulmonary embolism is seen. Mediastinum and Shena: No dominant adenopathy or fluid collection. The esophagus is unremarkable. Visualized thyroid gland: Unremarkable. Pleura: No effusion or pneumothorax. Heart: The heart is not dilated. Coronary artery calcifications are present. No pericardial effusion. Aorta: Thoracic aorta non-dilated. No evidence of dissection. Atherosclerotic calcification is present. Upper abdomen: Unremarkable. Soft tissues: Unremarkable. Bones: Within normal limits for the patient's age. IMPRESSION: 1. Within the limits of the examination, there is no evidence of pulmonary embolism, thoracic aortic dissection or aneurysm. 2. Right lower lobe consolidation with air bronchograms suspicious for pneumonia. Lab Data Lab results reviewed: Yes I reviewed the patient's lab results. Labs: 07/25/23 13:48 Blood Blood Culture - Pending 07/25/23 13:18 Blood Blood Culture - Pending Laboratory Tests Range/Units 07/25/23 13:48 WBC (4.4-10.8) 10^3/uL 9.68 RBC (3.93-5.22) 10^6/uL 4.41 Hgb (11.2-15.7) g/dL 13.0 Hct (36.0-46.0) % 41.2 MCV (80-95) fL 93 MCH (27.0-33.0) pg 29.5 MCHC (32.0-36.0) % 31.6 L RDW (11.7-14.6) % 14.7 H Plt Count (130-400) 10^3/uL 223 MPV (8.0-11.0) fL 9.2 Immature Gran % % 0.7 Neutrophils % % 71.4 Lymphocytes % % 15.1 Monocytes % % 12.4 Eosinophils % % 0.0 Basophils % % 0.4 Nucleated RBC % (0.0-0.3) % 0.0 Absolute Neutrophils (1.2-6.7) 10^3/uL 6.91 H Absolute Lymphocytes (1.2-3.4) 10^3/uL 1.46 Absolute Monocytes (0.1-0.8) 10^3/uL 1.20 H Absolute Eosinophils (0.0-0.7) 10^3/uL 0.00 Absolute Basophils (0.0-0.2) 10^3/uL 0.04 VBG pH (7.31-7.41) 7.33 VBG pCO2 (41-51) mmHg 65 H* VBG pO2 mmHg 34 VBG HCO3 (23-28) mmol/L 34 H VBG Total CO2 (24-29) mmol/L 31 H VBG O2 Saturation % 72 VBG Base Excess (-2-3) mmol/L 8 H VBG Lactate (0.6-1.4) mmol/L 0.7 Sodium (136-145) mmol/L 137 Potassium (3.5-5.1) mmol/L 4.3 Chloride (98-107) mmol/L 99 Carbon Dioxide (21.0-32.0) mmol/L 34.3 H Anion Gap (3-11) mmol/L 3.7 BUN (7-18) mg/dL 9 Creatinine (0.55-1.02) mg/dL 0.7 Est GFR (CKD-EPI 2020) (mL/min/1.73m2) 102.71 Glucose (74-106) mg/dL 162 H Calcium (8.5-10.1) mg/dL 9.9 Total Bilirubin (0.2-1.0) mg/dL 0.6 AST (15-37) U/L 13 L ALT (14-59) U/L 15 Alkaline Phosphatase (46-116) U/L 71 Troponin I (< or =60) ng/L < 50 C-Reactive Protein (<or=0.5) mg/dL 8.53 H NT-Pro-B Natriuret Pep (<300) pg/mL 345 H Total Protein (6.4-8.2) g/dL 7.2 Albumin (3.4-5.0) g/dL 2.7 L Procalcitonin ng/mL < 0.1 Quality:SDOH Health Related Social Needs: No Data to Display PFSH All Active Problems (Updated 07/25/23 @ 15:37 by VERNA Morales) COPD exacerbation (Acute) Hypoxic respiratory failure (Acute) Genital labial ulcer (Acute) Neg HSV cx. Etiology pressure sores from abdominal pannus Skin ulcer of abdominal wall (Acute) lateral margins R and L lower quadrants 2/2 obesity. Pneumonia (Acute) Dyspnea (Acute) Medication monitoring encounter (Acute) Pneumonia (Acute) Contraceptive management (Acute) COPD (chronic obstructive pulmonary disease) (Chronic) GERD (gastroesophageal reflux disease) (Chronic) Abnormal uterine bleeding (Acute) Mood disorder (Acute) Hypercalcemia (Acute) HTN (hypertension) (Chronic) HELEN (obstructive sleep apnea) (Chronic) Tobacco abuse (Chronic) Diabetes mellitus (Chronic) COPD with acute exacerbation (Acute) Primary osteoarthritis of both knees (Chronic 05/01/15) Medical History Smoker Diabetes mellitus type 2 in obese Hyperlipidemia Chronic atrophic candidosis Morbid obesity HELEN (obstructive sleep apnea) Depression with anxiety Surgical History Ligation of fallopian tube Tonsillectomy and adenoidectomy Open Carpal Tunnel release Repair of umbilical hernia Cholecystectomy (12/07/15) LAPAROSCOPIC WITH INTRAOPERATIVE CHOLANGIOGRAM/[facility] Bilat partial saplinectomy Family History Other COPD (chronic obstructive pulmonary disease) Cancer Social History Smoking/Tobacco Use Status: Current every day Tobacco Type: cigarettes Tobacco: How many years used: 40 Quit status: considering quitting Second Hand Exposure: Yes Smoking risk assessment performed?: Yes Alcohol Intake: never Drug use: Never Substance use type: does not use, opiates and painkillers Housing: house Current gender identity: female What is your relationship status?: living with partner Panel score (0-1 are the most socially isolated patients): 1 What type of physical activity do you participate in: none Seatbelt use: always Helmet use: Yes Do you feel safe at home: Yes Do you feel safe in your relationship?: Yes Additional Social history: Lives with a roomate, Douglas Harmon. History History 5 Para 2 Hx # Term Pregnancies Multiple births Hx # Pregnancies Ectopic pregnancies AB induced Hx Number of Living Children AB spontaneous
--- NOTE | 2023-07-25 13:15 | RT.EKG_ITS ---
APPROVED REPORT Exam: Resting ECG Reason for Exam: chest pain Patient Location: E HR:88 bpm ECG Measurements Heart Rate 88 AXIS WV 163 P 52 QRSd 107 QRS 28 QT 343 T 54 QTc 415 Conclusion Sinus rhythm...normal P axis, V-rate 60- 99
--- NOTE | 2023-07-25 13:15 | DI.CT_ITS ---
Exam(s) CT CHEST PE CTA EXAM: CT CHEST PE CTA CLINICAL HISTORY: pleuritic back pain w deep inspiration, sedentary. TECHNIQUE: Imaging Protocol: Axial CT angiography was performed with multi-slice acquisition and mu lti-planar and/or 3D reconstructions. CONTRAST MATERIAL: Intravenous: Omnipaque 350 contrast volume:100 mL COMPARISON: CT CT CHEST LUNG CANCER SCREEN from 10/26/2021 FINDINGS: The examination is limited due to patient motion artifact. Tracheobronchial tree: Patent where visualized. Pulmonary parenchyma: There is a consolidation with air bronchograms in the right lower lobe suspicio us for pneumonia. Smaller infiltrates are seen in the left lingula and the right middle lobe. Mild centrilobular emphysematous changes are present in the lungs. No architectural distortion. Pulmonary Arteries: The segmental and subsegmental pulmonary arteries are poorly evaluated secondary to motion artifact. No large central pulmonary embolism is seen. Mediastinum and Shena: No dominant adenopathy or fluid collection. The esophagus is unremarkable. Visualized thyroid gland: Unremarkable. Pleura: No effusion or pneumothorax. Heart: The heart is not dilated. Coronary artery calcifications are present. No pericardial effusion . Aorta: Thoracic aorta non-dilated. No evidence of dissection. Atherosclerotic calcification is presen t. Upper abdomen: Unremarkable. Soft tissues: Unremarkable. Bones: Within normal limits for the patient's age. IMPRESSION: 1. Within the limits of the examination, there is no evidence of pulmonary embolism, thoracic aortic dissection or aneurysm. 2. Right lower lobe consolidation with air bronchograms suspicious for pneumonia. RADIATION DOSE DELIVERED: 707.98mGy.cm Total DLP DATA REPOSITORY: All CT scans at this facility are submitted to the National Radiology Data Registry (NRDR) Dose Index Registry (DIR) with the [employer] ([employer]). RADIATION OPTIMIZATION: All CT scans at this facility use at least one of these dose optimization te chniques: automated exposure control; mA and/or kV adjustment per patient size (includes targeted exa ms where dose is matched to clinical indication); or iterative reconstruction.
[2023-07-25 13:57] LABS: BE (Venous) 8 mmol/L (-2-3); HCO3 (Venous) 34 mmol/L (23-28); O2 Sat (Venous) 72 %; TCO2 (Venous) 31 mmol/L (24-29); pH (Venous) 7.33 (7.31-7.41); pO2 (Venous) 34 mmHg
[2023-07-25 13:58] LABS: Abs Immature Grans 0.07 10^3/uL (0.0-0.06); Absolute Basophil Count 0.04 10^3/uL (0.0-0.2); Absolute Lymphocyte Count 1.46 10^3/uL (1.2-3.4); Absolute Neutrophil Count 6.91 10^3/uL (1.2-6.7); Basophils % 0.4 %; HCT 41.2 % (36.0-46.0); Immature Grans % 0.7 %; Lymphocytes % 15.1 %; MCH 29.5 pg (27.0-33.0); MCHC 31.6 % (32.0-36.0); MCV 93 fL (80-95); MPV 9.2 fL (8.0-11.0); Monocytes % 12.4 %; Neutrophils % 71.4 %; Platelet Count 223 10^3/uL (130-400); RBC 4.41 10^6/uL (3.93-5.22); RDW 14.7 % (11.7-14.6); RDW-SD 51.1 fL; WBC 9.68 10^3/uL (4.4-10.8)
[2023-07-25 13:59] LABS: Lactate 0.7 mmol/L (0.6-1.4); pCO2 (Venous) 65 mmHg (41-51)
[2023-07-25 14:23] LABS: NT-proBNP 345 pg/mL (<300)
[2023-07-25 14:24] LABS: ALT 15 U/L (14-59); AST 13 U/L (15-37); Albumin 2.7 g/dL (3.4-5.0); Alkaline Phosphatase 71 U/L (46-116); Anion Gap 3.7 mmol/L (3-11); BUN 9 mg/dL (7-18); Bilirubin, Total 0.6 mg/dL (0.2-1.0); C-Reactive Protein 8.53 mg/dL (<or=0.5); CO2 34.3 mmol/L (21.0-32.0); CREATININE 0.7 mg/dL (0.55-1.02); Calcium 9.9 mg/dL (8.5-10.1); Chloride 99 mmol/L (98-107); Estimated GFR 102.71 (mL/min/1.73m2); Glucose 162 mg/dL (74-106); Potassium 4.3 mmol/L (3.5-5.1); Sodium 137 mmol/L (136-145); Total Protein 7.2 g/dL (6.4-8.2); Troponin I < 50 ng/L (< or =60)
[2023-07-25] MEDS: Normal Saline - Diluent 50 ML VIAL IJ (14:34)
[2023-07-25] MEDS: Omnipaque 350 MG/ML 500 ML BTL-Imaging package 100 ML IJ (14:35)
[2023-07-25 14:37] LABS: Procalcitonin < 0.1 ng/mL
[2023-07-25] MEDS: Normal Saline Flush 10 ML SYR IVP ×2 (14:44→21:33)
[2023-07-25] MEDS: Albuterol/Ipratropium 3 ML UPD VIAL UPD ×3 (15:00→23:46)
[2023-07-25] MEDS: methylPREDNISolone SUCC 125 MG VIAL IVP (15:15)
[2023-07-25] MEDS: MAGNESIUM SULFATE 1 GM/100 ML BAG IVINF (15:38)
[2023-07-25] MEDS: AZITHROMYCIN 500 MG in Normal Saline 250 ML 250 MG IVPB (16:00)
--- NOTE | 2023-07-25 16:10 | W.PM.HP.N ---
Date of service: 07/25/23 Time of Service: 15:50 Assessment and Plan Assessment and plan (1) Acute hypoxic on chronic hypercapnic respiratory failure: Status: Acute Assessment and plan: IV ceftriaxone IV azithromycin Monitor vital signs and maintain sat above 88% with O2 supplementation Intensive pulmonary toilet Incentive spirometer Joo Mucinex DuoNeb scheduled Albuterol as needed (2) Right lower lobe pneumonia: Status: Acute Assessment and plan: As above (3) COPD exacerbation: Status: Acute Assessment and plan: As above Continue home umeclidinium Patient received IV Solu-Medrol in the ED, will transition to daily dose of oral prednisone 40 mg (4) GERD (gastroesophageal reflux disease): Status: Chronic Assessment and plan: On pantoprazole at home as per patient , will continue (5) HTN (hypertension): Status: Chronic Assessment and plan: Continue atenolol, torsemide, lisinopril at home dosing (6) Diabetes mellitus: Status: Chronic Assessment and plan: Blood glucose before every meal and at bedtime Continue home dose of Januvia Sliding scale insulin coverage (7) HELEN (obstructive sleep apnea): Status: Chronic Assessment and plan: If the patient is on treatment at home will recommend for her to bring her CPAP device (8) Skin ulcer: Status: Acute Assessment and plan: Wound consult Wound culture Dressing as per order Nystatin powder Interdry clot Briggs placed in the ED: UA ordered as the patient reported dysuria/ pain from her meatus when voiding and not from the urine contact with her wounds. 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 Suarez History of Present Illness History of Present Illness Chief Complaint: Pleuritic chest pain, back pain, cough Narrative: This 53-year-old female patient with a past medical history of COPD on home O2 at 3.5 L, tobacco abuse, abdominal skin ulcers, GERD, hypertension, obstructive sleep apnea, morbid obesity and diabetes mellitus on insulin presented to the ED at [facility] via private vehicle and wheelchair with her today with complaints of persistent cough, back pain chest pain for the past couple of days with worsening on deep inspiration and which appears to be of pleuritic nature. The patient denied pain radiation, fever, nausea vomiting, active chest pain or palpitations. The patient reported that her O2 saturation have been worse lately; in the ED her oxygen supplementation at to be increased to 4 L/min to maintain her sats around 90% as her sat dropped to lw 80's s/p return from DI. Labs in the ED were remarkable for a pCO2 of 65 with a pH of 7.33 and CRP of 8.5. Lactate, procalcitonin, troponin were negative and BNP was only 345. The EKG showed sinus rhythm heart rate 88 with no sign of ischemia. The hospitalist was consulted and the patient was initially admitted to the medical surgical floor for acute hypoxic hypercapnic respiratory failure due to COPD exacerbation. The chest CTA showed no pulmonary embolism but was positive for right lower lobe consolidation with air bronchograms suspicious for pneumonia. Admitting diagnostic will include right lower lobe pneumonia after reviewing the CTA results. In the emergency room IV azithromycin and IV ceftriaxone were initiated. 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 A briggs was inserted in the ED, most likely to alleviate increased respiratory distress on mobilization.The patient denied using a CPAP machine at home, reports receiving services nursing for wound. The patient came up with a tube of clotrimazole cream ordered in the ED. The patient would like to receive CPR in the event of her heart stopping but refuses intubation. The patient is thus a DNI. Review of Systems All systems reviewed & are unremarkable except as noted in HPI and below PFSH All Active Problems (Updated 07/25/23 @ 18:07 by Neva Hull APRN) Skin ulcer (Acute) Discharge planning issues (Acute) On deep vein thrombosis (DVT) prophylaxis (Acute) Right lower lobe pneumonia (Acute) Acute hypoxic on chronic hypercapnic respiratory failure (Acute) COPD exacerbation (Acute) Hypoxic respiratory failure (Acute) Genital labial ulcer (Acute) Neg HSV cx. Etiology pressure sores from abdominal pannus Skin ulcer of abdominal wall (Acute) lateral margins R and L lower quadrants 2/2 obesity. Pneumonia (Acute) Dyspnea (Acute) Medication monitoring encounter (Acute) Pneumonia (Acute) Contraceptive management (Acute) COPD (chronic obstructive pulmonary disease) (Chronic) GERD (gastroesophageal reflux disease) (Chronic) Abnormal uterine bleeding (Acute) Mood disorder (Acute) Hypercalcemia (Acute) HTN (hypertension) (Chronic) HELEN (obstructive sleep apnea) (Chronic) Tobacco abuse (Chronic) Diabetes mellitus (Chronic) COPD with acute exacerbation (Acute) Primary osteoarthritis of both knees (Chronic 05/01/15) Medical History Smoker Diabetes mellitus type 2 in obese Hyperlipidemia Chronic atrophic candidosis Morbid obesity HELEN (obstructive sleep apnea) Depression with anxiety Surgical History Ligation of fallopian tube Tonsillectomy and adenoidectomy Open Carpal Tunnel release Repair of umbilical hernia Cholecystectomy (12/07/15) LAPAROSCOPIC WITH INTRAOPERATIVE CHOLANGIOGRAM/[facility] Bilat partial saplinectomy Family History Other COPD (chronic obstructive pulmonary disease) Cancer Social History Smoking/Tobacco Use Status: Current every day Tobacco Type: cigarettes Tobacco: How many years used: 40 Quit status: considering quitting Second Hand Exposure: Yes Smoking risk assessment performed?: Yes Alcohol Intake: never Drug use: Never Substance use type: does not use, opiates and painkillers Housing: apartment Current gender identity: female What is your relationship status?: living with partner Panel score (0-1 are the most socially isolated patients): 1 What type of physical activity do you participate in: none Seatbelt use: always Helmet use: Yes Do you feel safe at home: Yes Do you feel safe in your relationship?: Yes Additional Social history: Lives with a roomate, Douglas Harmon. History History 5 Para 2 Hx # Term Pregnancies Multiple births Hx # Pregnancies Ectopic pregnancies AB induced Hx Number of Living Children AB spontaneous Meds Allergies and Home Medications Allergies Allergy/AdvReac Type Severity Reaction Status Date / Time zinc Allergy Mild Skin Rash Verified 07/25/23 13:00 amoxicillin Allergy Skin Rash Unverified 07/25/23 13:00 Sulfa (Sulfonamide Allergy Diarrhea Unverified 07/25/23 13:00 Antibiotics) varenicline [From Chantix] AdvReac Mild Nightmares Verified 07/25/23 13:00 Home Medications Medication Instructions Recorded Confirmed Type desvenlafaxine succinate 100 mg 100 mg PO DAILY 03/21/14 07/25/23 History tablet,extended release 24 hr (Pristiq) aripiprazole 10 mg tablet (Abilify) 10 mg PO DAILY 04/22/17 07/25/23 History atenolol 50 mg tablet 50 mg PO DAILY 04/22/17 07/25/23 History fenofibrate 160 mg tablet 160 mg PO DAILY 04/22/17 07/25/23 History nystatin 500 million unit oral 1 ea PO TID PRN 04/22/17 07/25/23 History powder lisinopril 20 mg tablet 40 mg PO DAILY 04/23/17 07/25/23 History naloxone 4 mg/actuation nasal 4 mg intranasal PRN PRN excessive 04/29/18 07/25/23 History spray (Narcan) sedation methylphenidate HCl 20 mg tablet 20 mg PO BID 11/15/18 07/25/23 History (Ritalin) rosuvastatin 40 mg tablet 40 mg PO HS 04/12/19 07/25/23 History bupropion HCl 200 mg tablet,12 hr 200 mg PO QAM 01/15/21 07/25/23 History sustained-release fluticasone propionate 230 1 puff inhalation BID 01/15/21 07/25/23 History mcg-salmeterol 21 mcg/actuation HFA inhaler (Advair HFA) insulin aspart U-100 100 unit/mL 0 sliding scale dose subcut AC 01/15/21 07/25/23 History (3 mL) subcutaneous pen (Novolog FlexPen U-100 Insulin aspart) sitagliptin phosphate 100 mg 100 mg PO DAILY 01/15/21 07/25/23 History tablet (Januvia) magnesium oxide 400 mg (241.3 mg 400 mg PO HS #30 tabs 08/22/21 07/25/23 Rx magnesium) tablet ipratropium 0.5 mg-albuterol 3 mg 3 ml inhalation Q4H PRN wheezing 10/12/21 07/25/23 Rx (2.5 mg base)/3 mL nebulization #540 mL soln torsemide 20 mg tablet 20 mg PO DAILY PRN 11/04/21 07/25/23 History albuterol sulfate 90 mcg/actuation 1 - 2 puff inhalation Q4H PRN #8.5 11/21/22 07/25/23 Rx aerosol inhaler grams azithromycin 250 mg tablet See Rx Instructions .Route 11/27/22 07/25/23 Rx .COMPLEX #90 tabs oxycodone 15 mg tablet 15 mg PO TID PRN 02/25/23 07/25/23 History umeclidinium 62.5 mcg/actuation See Rx Instructions .Route 06/23/23 07/25/23 Rx blister powder for inhalation .COMPLEX #30 ea (Incruse Ellipta) bupropion HCl 150 mg 24 hr tablet, 150 mg PO DAILY 07/25/23 07/25/23 History extended release bupropion HCl 300 mg 24 hr tablet, 300 mg PO DAILY 07/25/23 07/25/23 History extended release gabapentin 600 mg tablet 600 mg PO HS 07/25/23 07/25/23 History lansoprazole 30 mg capsule,delayed 30 mg PO DAILY 07/25/23 07/25/23 History release Exam Narrative Exam Narrative: Constitutional The patient is in bed comfortable, w oxy mask at 4l/min, without acute distress and has morbidly obese body habitus HENMT: Facial structures with normal appearance Eyes: Well aligned Neuro:alert and oriented X3 Resp: Coarse breath sounds throughout, diminished bases lung bilaterally more so to the RLL Cardio: regular rhythm, S1, S2, no murmur, radial and pedal pulse are positive GI: Abdomen is obese, with extensive pannus, not distended, soft and non tender, bowel sounds are present : no bladder distension, briggs in place Integumentary: Abdominal ulcerations: , wet, multiple and opened, foul smell Skin under the pannus: extensive erythema, again with multiple opened sores Psych: RASS 0, congruent mood and normal affect. Results Labs 07/25/23 13:48 07/25/23 13:48 Labs: Laboratory Results - last 24 hr 07/25/23 13:48 WBC 9.68 RBC 4.41 Hgb 13.0 Hct 41.2 MCV 93 MCH 29.5 MCHC 31.6 L RDW 14.7 H Plt Count 223 MPV 9.2 Immature Gran % 0.7 Neutrophils % 71.4 Lymphocytes % 15.1 Monocytes % 12.4 Eosinophils % 0.0 Basophils % 0.4 Nucleated RBC % 0.0 Absolute Neutrophils 6.91 H Absolute Lymphocytes 1.46 Absolute Monocytes 1.20 H Absolute Eosinophils 0.00 Absolute Basophils 0.04 VBG pH 7.33 VBG pCO2 65 H* VBG pO2 34 VBG HCO3 34 H VBG Total CO2 31 H VBG O2 Saturation 72 VBG Base Excess 8 H VBG Lactate 0.7 Sodium 137 Potassium 4.3 Chloride 99 Carbon Dioxide 34.3 H Anion Gap 3.7 BUN 9 Creatinine 0.7 Est GFR (CKD-EPI 2020) 102.71 Glucose 162 H Calcium 9.9 Total Bilirubin 0.6 AST 13 L ALT 15 Alkaline Phosphatase 71 Troponin I < 50 C-Reactive Protein 8.53 H NT-Pro-B Natriuret Pep 345 H Total Protein 7.2 Albumin 2.7 L Procalcitonin < 0.1 Last Vital Signs Temp 37.0 C 07/25/23 12:50 Pulse 84 07/25/23 14:31 Resp 30 H 07/25/23 14:31 BP 158/83 H 07/25/23 14:31 Pulse Ox 91 L 07/25/23 14:31 Time Spent Time spent with Patient: >75 minutes Time was spent: preparing to see the patient(eg.review tests), obtaining and/or reviewing separately otained hiistory, ordering medications,tests, procedures, referring, communicating with other health director of patient care, indepentently interpreting results, counseling the patient and care coordination
[2023-07-25] MEDS: cefTRIAXone 2 GM/50 ML BAG IVPB (16:38)
[2023-07-25] MEDS: Normal Saline 1,000 ML 150 ML IV (16:38)
--- NOTE | 2023-07-25 18:36 | RESPIRATORY ---
Patient wears 3L of oxygen at baseline. DME is [facility].
[2023-07-25] MEDS: Polyethylene Glycol 3350 17 GM PACKET PO (20:11)
[2023-07-25] MEDS: oxyCODONE 15 MG TAB PO (20:11)
[2023-07-25] MEDS: Budesonide/Formoterol 160/4.5 6 GM 60 PUFF INH IH (20:21)
--- NOTE | 2023-07-25 20:21 | RESPIRATORY ---
RT spoke with pt. regarding HELEN. Pt. states never used CPAP machine and denies to use positive pressure despite 3L/min NC at baseline through [facility].
[2023-07-25 20:51] LABS: Bilirubin Negative (Negative); Blood Large (Negative); Clarity Clear (Clear); Glucose Negative (Negative); Ketones Negative (Negative); Leukocyte Esterase Negative (Negative); Nitrite Negative (Negative)
[2023-07-25 20:53] LABS: Bacteria Rare HPF (Negative); C & S Indicated? No; Casts Negative LPF (Negative); Crystals Negative HPF (Negative); Epithelial Cells Rare HPF (Negative); Mucus Negative (Negative); RBC >50 HPF (0-2); WBC Negative HPF (0-5)
[2023-07-25] MEDS: Enoxaparin 60 MG/0.6 ML SYR SC (21:32)
[2023-07-25] MEDS: Insulin Aspart 300 UNITS/3 ML PEN SC (21:33)
[2023-07-25] MEDS: Docusate Sodium 100 MG CAP PO (21:33)
[2023-07-25] MEDS: Magnesium Oxide 400 MG TAB PO (21:34)
[2023-07-25] MEDS: Rosuvastatin 20 MG TAB 40 MG PO (21:34)
[2023-07-25] MEDS: guaiFENesin 600 MG TABCR PO (21:34)
[2023-07-25 23:51] LABS: MRSA PCR Negative (Negative)
[2023-07-26] VITALS (16 sets, daily range): BP systolic 118–154; BP diastolic 62–82; PULSE 74–89; RESP 2–28; TEMP 35.8–36.6; O2SAT 90–94
[2023-07-26] MEDS: HYDROmorphone 2 MG/ML SYR 1 MG IVP (04:56)
[2023-07-26] MEDS: Albuterol/Ipratropium 3 ML UPD VIAL UPD ×3 (05:04→17:58)
[2023-07-26 06:26] LABS: Abs Immature Grans 0.05 10^3/uL (0.0-0.06); Absolute Basophil Count 0.02 10^3/uL (0.0-0.2); Absolute Lymphocyte Count 0.92 10^3/uL (1.2-3.4); Absolute Monocyte Count 0.38 10^3/uL (0.1-0.8); Absolute Neutrophil Count 4.78 10^3/uL (1.2-6.7); Basophils % 0.3 %; HCT 40.8 % (36.0-46.0); HGB 12.8 g/dL (11.2-15.7); Immature Grans % 0.8 %; MCH 29.1 pg (27.0-33.0); MCHC 31.4 % (32.0-36.0); MCV 93 fL (80-95); MPV 9.2 fL (8.0-11.0); Monocytes % 6.2 %; Neutrophils % 77.7 %; Platelet Count 214 10^3/uL (130-400); RDW 14.2 % (11.7-14.6); RDW-SD 48.2 fL; WBC 6.15 10^3/uL (4.4-10.8)
[2023-07-26 06:42] LABS: Anion Gap 7.2 mmol/L (3-11); BUN 12 mg/dL (7-18); CO2 31.8 mmol/L (21.0-32.0); CREATININE 0.6 mg/dL (0.55-1.02); Calcium 9.6 mg/dL (8.5-10.1); Chloride 101 mmol/L (98-107); Glucose 244 mg/dL (74-106); Magnesium 1.6 mg/dL (1.8-2.4); Potassium 4.1 mmol/L (3.5-5.1); Sodium 140 mmol/L (136-145)
[2023-07-26] MEDS: Umeclidinium 7 CAP INHALER 1 CAP IH (08:05)
[2023-07-26] MEDS: Budesonide/Formoterol 160/4.5 6 GM 60 PUFF INH IH ×2 (08:05→19:47)
[2023-07-26] MEDS: buPROPion-XL 150 MG TABCR 450 MG PO (08:14)
[2023-07-26] MEDS: Lisinopril 20 MG TAB 40 MG PO (08:14)
[2023-07-26] MEDS: Docusate Sodium 100 MG CAP PO ×3 (08:14→21:32)
[2023-07-26] MEDS: SITagliptin 100 MG TAB PO (08:14)
[2023-07-26] MEDS: Methylphenidate 10 MG TAB 20 MG PO (08:14)
[2023-07-26] MEDS: ARIPiprazole 5 MG TAB 10 MG PO (08:14)
[2023-07-26] MEDS: guaiFENesin 600 MG TABCR PO ×2 (08:14→21:32)
[2023-07-26] MEDS: Atenolol 50 MG TAB PO (08:15)
[2023-07-26] MEDS: Insulin Aspart 300 UNITS/3 ML PEN SC ×4 (08:15→21:32)
[2023-07-26] MEDS: Enoxaparin 60 MG/0.6 ML SYR SC ×2 (08:15→21:31)
[2023-07-26] MEDS: predniSONE 20 MG TAB 40 MG PO (08:15)
[2023-07-26] MEDS: Pantoprazole 40 MG TABCR PO (08:15)
[2023-07-26] MEDS: Polyethylene Glycol 3350 17 GM PACKET PO (08:15)
[2023-07-26] MEDS: Normal Saline Flush 10 ML SYR IVP ×2 (08:17→22:00)
--- NOTE | 2023-07-26 08:21 | INITIAL_ITS ---
Date of service: 07/26/23 Time of Service: 08:21 Care Management Initial Assmt Initial Assessment Reason for Hospitalization: pneumonia with respiratory failure Functional Status/Living Situation Patient Presentation: Rosibel was sitting up in a chair when CM met with her. She was pleasant in interaction and agreeable to conversation. Rosibel stated that she is feeling much better since admission. She is now back to her baseline oxygen need at 3L/min and is saturating in the low 90s. Rosibel had a PT evaluation yesterday and new home health PT has been recommended for when she discharges. Rosibel is fairly independent with ADLs but does require assistance with bathing and dressing which Nahun provides. Town of Residence: [facility] Resides with: Spouse (Nahun Douglas) Significant Other/Family: Local Caregiver/Guardian: Nahun assists with her care Natural Supports: Rosibel has 2 sons and 2 grandsons. She is in regular contact with them and describes her family as close and supportive. mahesh believes she may have advanced directives but does not know where they are. Her code status right now id Employment Status: Disabled Instrumental Activities of Daily Living (ADLs): Requires support with Transportation Medications Medication Management: No Issues/Barriers identified Physical Functioning/Mobility Assistive Device: uses a walker Advance Directives Advance Directives: Do you have an Advance Directive: N 08/21/22 09:31 AD On File at [facility]: N 08/21/22 09:31 Date Asked 07/25/23 07/25/23 12:52 AD Date Reviewed COLST On File at [facility] COLST Date Scanned Comment: CM offered forms.and assistance with completion. Rosibel considering. She believes she has completed the forms but is not sure where they are. Code Status Resuscitation Status DNI Insurance Coverage/Financial Issues Insurance: Medicare Medicaid ACO Member: Yes Care Team Visit Care Team Role Provider Type VERNA Irving Primary Care Provider [facility] Angie Stiles RDN, [facility] Other Providers [employer]IMMER Genna Todd Other Providers [employer] TRIMMER Alfredo Adkins Other Providers OTHER Alex Carrera RDN Other Providers [employer] TRIMMER VERNA Morales Emergency Provider [employer] Dandy Suarez MD Admit Provider [facility] STAFF PHYSICIAN Attending Provider Discharge Potential Discharge Needs: PCP F/U Appt Anticipated Barriers to Discharge: None Identified Patient/Family Education Needs: Review discharge instructions, discuss Ask Me Three Transportation: Private vehicle Plan: Anticipate Rosibel will be discharged home, possibly with new home health services for PT, when medically stable. She will follow up with her community providers and plan of care and transport with family. CM will follow and continue to assess for discharge needs. PFSH All Active Problems (Updated 07/25/23 @ 18:07 by Neva Hull APRN) Skin ulcer (Acute) Discharge planning issues (Acute) On deep vein thrombosis (DVT) prophylaxis (Acute) Right lower lobe pneumonia (Acute) Acute hypoxic on chronic hypercapnic respiratory failure (Acute) COPD exacerbation (Acute) Hypoxic respiratory failure (Acute) Genital labial ulcer (Acute) Neg HSV cx. Etiology pressure sores from abdominal pannus Skin ulcer of abdominal wall (Acute) lateral margins R and L lower quadrants 2/2 obesity. Pneumonia (Acute) Dyspnea (Acute) Medication monitoring encounter (Acute) Pneumonia (Acute) Contraceptive management (Acute) COPD (chronic obstructive pulmonary disease) (Chronic) GERD (gastroesophageal reflux disease) (Chronic) Abnormal uterine bleeding (Acute) Mood disorder (Acute) Hypercalcemia (Acute) HTN (hypertension) (Chronic) HELEN (obstructive sleep apnea) (Chronic) Tobacco abuse (Chronic) Diabetes mellitus (Chronic) COPD with acute exacerbation (Acute) Primary osteoarthritis of both knees (Chronic 05/01/15) Medical History Smoker Diabetes mellitus type 2 in obese Hyperlipidemia Chronic atrophic candidosis Morbid obesity HELEN (obstructive sleep apnea) Depression with anxiety Surgical History Ligation of fallopian tube Tonsillectomy and adenoidectomy Open Carpal Tunnel release Repair of umbilical hernia Cholecystectomy (12/07/15) LAPAROSCOPIC WITH INTRAOPERATIVE CHOLANGIOGRAM/[facility] Bilat partial saplinectomy Family History Other COPD (chronic obstructive pulmonary disease) Cancer Social History Smoking/Tobacco Use Status: Current every day Tobacco Type: cigarettes Tobacco: How many years used: 40 Quit status: considering quitting Second Hand Exposure: Yes Smoking risk assessment performed?: Yes Alcohol Intake: never Drug use: Never Substance use type: does not use, opiates and painkillers Housing: apartment Current gender identity: female What is your relationship status?: living with partner Panel score (0-1 are the most socially isolated patients): 1 What type of physical activity do you participate in: none Seatbelt use: always Helmet use: Yes Do you feel safe at home: Yes Do you feel safe in your relationship?: Yes Additional Social history: Lives with a roomate, Douglas Harmon. History History 5 Para 2 Hx # Term Pregnancies Multiple births Hx # Pregnancies Ectopic pregnancies AB induced Hx Number of Living Children AB spontaneous SDOH(Care Management) Screening Will the Patient Participate in the Screening?: Declined to provide Do you worry about having a steady place to live?: choose not to answer In the past 12 months, have you had to go without electric, gas, oil or water in your home?: choose not to answer Have you or anyone in your house had to go without enough food to eat?: choose not to answer Has lack of transportation kept you from medical appointments or from doing things needed for daily living?: choose not to answer Has anyone in your support network made you feel unsafe for any reason?: choose not to answer
[2023-07-26] MEDS: oxyCODONE 15 MG TAB PO ×2 (08:34→19:45)
[2023-07-26] MEDS: Acetaminophen 500 MG TAB 1000 MG PO (10:55)
--- NOTE | 2023-07-26 11:15 | IN_ITS ---
PT Notes Visit Reasons: Acute Hypoxic Hypercabic Respiratory fail, COPD ex Physical Therapy Inpatient Initial Evaluation Date: 07/26/2023 Referring Doctor: Neva Hull NP PT Orders: PT CONSULT: Safety Consult for D/C Precautions: Fall. Standard. Activity as tolerated. Patient Profile/Admitting Diagnosis: Patient is a 89year-old female who presented to the 07/25/2023 due to persistent cough, back pain, chest pain, and dizziness. Patient is admitted to acute level of care for management of acute hypoxic on chronic hypercapnic respiratory failure, R LL PNA, COPD exacerbation, GERD, HTN, DM, HELEN, skin ulcer. PMHX: All Active Problems (Updated 07/25/23 @ 18:07 by Neva Hull APRN) Skin ulcer (Acute) Discharge planning issues (Acute) On deep vein thrombosis (DVT) prophylaxis (Acute) Right lower lobe pneumonia (Acute) Acute hypoxic on chronic hypercapnic respiratory failure (Acute) COPD exacerbation (Acute) Hypoxic respiratory failure (Acute) Genital labial ulcer (Acute) Neg HSV cx. Etiology pressure sores from abdominal pannus Skin ulcer of abdominal wall (Acute) lateral margins R and L lower quadrants 2/2 obesity. Pneumonia (Acute) Dyspnea (Acute) Medication monitoring encounter (Acute) Pneumonia (Acute) Contraceptive management (Acute) COPD (chronic obstructive pulmonary disease) (Chronic) GERD (gastroesophageal reflux disease) (Chronic) Abnormal uterine bleeding (Acute) Mood disorder (Acute) Hypercalcemia (Acute) HTN (hypertension) (Chronic) HELEN (obstructive sleep apnea) (Chronic) Tobacco abuse (Chronic) Diabetes mellitus (Chronic) COPD with acute exacerbation (Acute) Primary osteoarthritis of both knees (Chronic 05/01/15) Medical History Smoker Diabetes mellitus type 2 in obese Hyperlipidemia Chronic atrophic candidosis Morbid obesity HELEN (obstructive sleep apnea) Depression with anxiety Surgical History Ligation of fallopian tube Tonsillectomy and adenoidectomy Open Carpal Tunnel release Repair of umbilical hernia Cholecystectomy (12/07/15) LAPAROSCOPIC WITH INTRAOPERATIVE CHOLANGIOGRAM/[facility] Bilat partial saplinectomy Social History/Home Situation: Lives with fiancee in a mobile home with one step to enter. Used a single point cane occasionally at home. Home environment has very little space, front- wheeled walker is not accessible to all the areas in the house. Equipment Owned/DME: [facility] Subjective: Wounds around abdominal area and between the thighs considerably hurting limiting ability to move. Objective: General Observation: Multiple wounds seen in intertriginous areas between lower abdominal area and proximal thighs, B LE and trunk lymphedema, high BMI Mental Status: Alert and oriented as to person, place, time, and purpose. Able to pay attention, focus, and respond appropriately. Pain: 8-9/10 aggravated by movement Vital Signs: Closely monitored by nursing staff ROM: Right Upper Extremity: Shoulder Flexion WFL. Shoulder abduction WFL. Elbow flexion WFL. Wrist flexion WFL. Functional opening and closing of hand WFL. Left Upper Extremity: Shoulder Flexion WFL. Shoulder abduction WFL. Elbow flexion WFL. Wrist flexion WFL. Functional opening and closing of hand WFL. Right Lower Extremity: Hip flexion limited due to pain from abdominal wounds. Hip abduction limited due to pain from abdominal wounds. Knee flexion limited due to pain from abdominal wounds. Ankle dorsiflexion WFL. Ankle plantarflexion WFL. Left Lower Extremity: Hip flexion limited due to pain from abdominal wounds. Hip abduction limited due to pain from abdominal wounds. Knee flexion limited due to pain from abdominal wounds. Ankle dorsiflexion WFL. Ankle plantarflexion WFL. Strength: Right Upper Extremity: Shoulder flexors 4-/5. Shoulder abductors 4-4-/5. Elbow flexors 4-/5. Elbow extensors 4-/5. Computer Architect strong. Left Upper Extremity: Shoulder flexors 4-/5. Shoulder abductors 4-4-/5. Elbow flexors 4-/5. Elbow extensors 4-/5. Computer Architect strong. Right Lower Extremity: Hip flexors 2-/5. Hip abductors 2-/5. Knee flexors 3/5. Knee extensors 3/5. Ankle dorsiflexors 3/5. Ankle plantarflexors 3/5. Left Lower Extremity: Hip flexors 2-/5. Hip abductors 2-/5. Knee flexors 3/5. Knee extensors 3/5. Ankle dorsiflexors 3/5. Ankle plantarflexors 3/5. Bed Mobility/Transfers: Minimal cueing provided for use of B hands as needed for support, movement sequence, AD management, and posture to reduce fall risk and minimize pain report Rolling moderate assist of 2 Supine to sit maximal assist Sit to stand moderate assist x 2 Stand to sit moderate assist x 2 Bed to reclining chair minimal assist Gait: 10 steps from edge of bed to reclining wheelchair using front-wheeled walker with report of pain requiring minimal assist with minimal verbal cueing provided for management of AD, posture, and weight distribution to minimize pain and reduce fall risk. Complained of worsening back pain and abdominal pain during movement. Balance: Static Sitting: Normal Dynamic Sitting: Normal Static Standing: Fair Dynamic Standing: Fair Special Tests: Mobility Limitations Standardized Measure [facility] AM-PAC 6 clicks Basic Mobility Inpatient Short Form: Raw Score: 15 CMS Score: 54% deficit Informed Consent/Education: Patient was instructed in purpose of PT consult and plan of care. Agreeable to proceed with established PT POC to achieve personal goals. ASSESSMENT: High BMI, abdominal wounds, chronic low back pain, and functional mobility decline increase risk of further decline, further skin breakdown, and disease exacerbation limiting patient's ability to thrive at home. Pain was worse during bed mobility as pulling on bed rail increases pain in the back, patient was able to slowly scoot forward to edge of bed by pushing down on bed instead of pulling on rail. Patient presents with clinical signs and symptoms consistent with current/admitting diagnoses that have resulted to mobility limitations, gait instability, generalized weakness, and overall ADL decline as demonstrated by the following impairment level findings: 1. Decreased strength to B UE/LE major muscle groups 2. Impaired sitting/standing balance 3. Impaired activity tolerance 4. Limitation of joint range of motion in B LE 5. Shortness of breath 6. truncal lymphedema 7. geenralized pain Impairments are contributing to the following functional limitations: 1. Decline in bed mobility skills 2. Decline in transfer skills 3. Difficulty with ambulation without assistive device and physical assistance 4. Increased completion time for mobility ADL performance 5. Increased risk for falls 6. Difficulty with managing steps alone safely Patient is assessed as a 34480 moderate complexity based on the following: History: 53-year-old female with past medical history as indicated above Examination: Demonstrable impairment in strength, balance, and mobility level with underlying impairments and functional limitations as exhibited above as well as deficit score of 54% utilizing the [facility] Mobility Inpatient Short Form Presentation: Evolving Decision Makin moderate complexity Goals: Goals X1 week 1. Supine-Sit independent 2. Sit-Supine independent 3. Sit-Stand independent 4. Stand-Sit independent with FWW 5. Bed-Chair independent with FWW 6. Chair-Bed independent with FWW 7. Independent gait on level surface with use of FWW for at least 75 feet without report of pain nor dyspnea 8. Independent stair negotiation while holding onto B rails for at least 3 steps without report of pain nor dyspnea 9. Independent with home exercise program 10. Good static and dynamic standing balance/tolerance Plan of Care/Treatment Plan: 1-2x/day, 7 days/week x 1 week. Plan of care has been reviewed with the INSURANCE ACCOUNT EXECUTIVE providing the service under Physical Therapy direction. Initiate Physical Therapy intervention for pain management as needed, strengthening, bed mobility, transfers, gait, stairs, balance training, and use of assistive device. DISCHARGE RECOMMENDATIONS: [] Home with no services [] [X] Home with services. Patient will benefit from home health PT services in order to progress mobility level using least restrictive assistive ambulatory device, assess home safety, identify additional equipment needs, and establish a functional maintenance program that will increase ability of patient to remain at home. [] Home with outpatient PT [] [] SNF for continued rehabilitation [] [] [facility] [] [] SNF versus LTC based on ability to participate and progress [] TREATMENT CODE/TIME: 13012 x 20 minutes for 1 unit, 54613 x 20 minutes for 1 unit (11:15-11:55). Thank you for the opportunity to participate in the care of this patient. Lindsey Ramírez PT, DPT, CLT [facility] [place], [place]
--- NOTE | 2023-07-26 11:15 | PHA.REVIEW2 ---
Pharmacy Admission Review Admission Clinical Review Admission Pharmacy Review: Skin ulcer (Acute) Discharge planning issues (Acute) On deep vein thrombosis (DVT) prophylaxis (Acute) Right lower lobe pneumonia (Acute) Acute hypoxic on chronic hypercapnic respiratory failure (Acute) COPD exacerbation (Acute) Hypoxic respiratory failure (Acute) zinc Allergy (Mild, Verified 07/25/23 13:00) Skin Rash amoxicillin Allergy (Unverified 07/25/23 13:00) Skin Rash Sulfa (Sulfonamide Antibiotics) Allergy (Unverified 07/25/23 13:00) Diarrhea varenicline [From Chantix] Adverse Reaction (Mild, Verified 07/25/23 13:00) Nightmares Resuscitation Status DNI Height 5 ft Weight 121.109 kg Pharmacy Admission Review Renal Dosing Renal Dosing: BUN 12 mg/dL (7-18) 07/26/23 06:06 Creatinine 0.6 mg/dL (0.55-1.02) 07/26/23 06:06 Medications needing adjustments: Reviewed (CrCl 128.17 mL/min) List of meds needing interventions: Current medications are okay Anticoagulation Anticoagulation: Hgb 12.8 g/dL (11.2-15.7) 07/26/23 06:06 Hct 40.8 % (36.0-46.0) 07/26/23 06:06 Plt Count 214 10^3/uL (130-400) 07/26/23 06:06 Creatinine 0.6 mg/dL (0.55-1.02) 07/26/23 06:06 DVT Prophylaxis: Intervened (Changed from 40mg daily to 60mg q12h due to BMI > 50) Medications: Enoxaparin (60mg q12h) Opiate Usage Evaluate Pain Scale/Pains Meds: Reviewed (PRN oxycodone - 2 doses given so far) Scheduled Bowel Reg ordered if on Opiates?: Yes (Docusate and Miralax) Relevant Labs Relevant Labs: Sodium 140 mmol/L (136-145) 07/26/23 06:06 Potassium 4.1 mmol/L (3.5-5.1) 07/26/23 06:06 Chloride 101 mmol/L (98-107) 07/26/23 06:06 Magnesium 1.6 mg/dL (1.8-2.4) L 07/26/23 06:06 C-Reactive Protein 8.53 mg/dL (<or=0.5) H 07/25/23 13:48 Electrolytes, C-Reactive P, ESR: Reviewed (Mg 1.6) DM Control DM Control: Glucose 244 mg/dL (74-106) H 07/26/23 06:06 Finger Stick Blood Glucose 239 0749 Finger Stick Blood Glucose 239 0749 Insulin Dosing, Diabetic Medication: Has order for SS insulin and Januvia Cardiac Review Cardiac Review: Troponin I < 50 ng/L (< or =60) 07/25/23 13:48 NT-Pro-B Natriuret Pep 345 pg/mL (<300) H 07/25/23 13:48 Blood Pressure 154/82 1052 Blood Pressure 118/62 0750 Blood Pressure 132/74 0238 BP, HR, EF%: Reviewed (BP 154/82, HR WNL) QTc Review QTc: Reviewed (415 from 07/25/23) IV to PO Switch IV Medications: Reviewed Home Meds Home Med List reviewed: Intervened Relevent Home Meds Not ordered & why?: Azithromycin (receiving IV azithromycin for pneumonia), Narcan (PRN), nystatin, gabapentin, lansoprazole (has order for pantoprazole) Reached out to provider regarding gabapentin. Waiting to hear back. Updated home med list: added bupropion 150mg and 300mg, removed bupropion 200mg, added gabapentin and lansoprazole (based on external fill history) Updated order for bupropion to match current at home regimen (450mg XL once daily) Substituted Advair for Symbicort per pharmacy protocol Two patients own meds: Desvenlafaxine and fenofibrate. Per patient, will be bringing them in tomorrow. On external fill list but not on home med list: Basaglar and buspirone. Reached out to provider. Current Meds Current Medication Order Review: Intervened Comments: H+P says to continue ceftriaxone and azithromycin. Orders were not put in. Reached out to provider. Pharmacy Antibiotic Review Relevant Labs: Relevant Labs 07/25/23 13:48 C-Reactive Protein 8.53 H Procalcitonin < 0.1 WBC 6.15 10^3/uL (4.4-10.8) 07/26/23 06:06 Procalcitonin < 0.1 ng/mL 07/25/23 13:48 Temperature 36.3 C Temperature 36.6 C Temperature 35.8 C Pharmacy Antibiotic Activity: C/S review and Reviewed, no change Comments: Patient received a now dose of ceftriaxone and azithromycin. H+P says to continue, reached out to provider as no orders were put in yet. Blood and wound culture are pending.
--- NOTE | 2023-07-26 11:34 | W.PM.PROGNOT ---
Date of Service Date of service: 07/26/23 Time of Service: 11:35 Assessment and Plan Assessment and plan (1) Acute hypoxic on chronic hypercapnic respiratory failure: Status: Acute Assessment and plan: Continue IV ceftriaxone Continue IV azithromycin Continue to monitor vital signs and maintain sat above 88% with O2 supplementation Continue intensive pulmonary toilet, Incentive spirometer, Acapella Continue Mucinex, DuoNeb scheduled and PRN Albuterol Blood cultures are negative (2) Right lower lobe pneumonia: Status: Acute Assessment and plan: As above (3) COPD exacerbation: Status: Acute Assessment and plan: As above On home umeclidinium continue daily dose of oral prednisone 40 mg (4) GERD (gastroesophageal reflux disease): Status: Chronic Assessment and plan: On home pantoprazole (5) HTN (hypertension): Status: Chronic Assessment and plan: On atenolol, torsemide, lisinopril at home dosing (6) Diabetes mellitus: Status: Chronic Assessment and plan: Blood glucose before every meal and at bedtime Continue home dose of Januvia Sliding scale insulin coverage increased to resistant (7) HELEN (obstructive sleep apnea): Status: Chronic Assessment and plan: Not on CPAP at home (8) Skin ulcer: Status: Acute Assessment and plan: Wound consult pending Wound culture gram stain negative Dressing as per order until wound consult done Nystatin powder ordered Interdry clot ordered Briggs placed in the ED: UA ordered as the patient reported dysuria/ pain from her meatus when voiding and not from the urine contact with her wounds. UA was negative (9) On deep vein thrombosis (DVT) prophylaxis: Status: Acute Assessment and plan: On SC lovenox (10) Discharge planning issues: Status: Acute Assessment and plan: CM to f/u HH at home COMMERCIAL AGENT PT consult Discussed with Dr. Suarez Subjective Subjective Patient reports: no new complaints, feels better, tolerating liquids well, tolerating a regular diet, voiding w/o difficulty and no bowel movement; denies nausea, vomiting or fever Exam Narrative Exam Narrative: Constitutional The patient is in bed comfortable, w oxy mask at 4l/min, without acute distress and has morbidly obese body habitus HENMT: Facial structures with normal appearance Eyes: Well aligned Neuro:alert and oriented X3 Resp:less coarse breath sounds mostly on the right w diminished bases lung bilaterally more so to the RLL Cardio: regular rhythm, S1, S2, no murmur, radial and pedal pulse are positive GI: Abdomen is obese, with extensive pannus, not distended, soft and non tender, bowel sounds are present : no bladder distension, briggs in place Integumentary: Abdominal ulcerations: , wet, multiple and opened, Skin under the pannus: extensive erythema improving Psych: RASS 0, congruent mood and normal affect. Objective Last Vital Signs Temp 36.3 C L 07/26/23 10:52 Pulse 86 07/26/23 10:52 Resp 19 07/26/23 10:52 BP 154/82 H 07/26/23 10:52 Pulse Ox 93 07/26/23 10:52 Laboratory Results - last 24 hr 07/25/23 07/25/23 07/25/23 13:48 18:11 20:42 WBC 9.68 RBC 4.41 Hgb 13.0 Hct 41.2 MCV 93 MCH 29.5 MCHC 31.6 L RDW 14.7 H Plt Count 223 MPV 9.2 Immature Gran % 0.7 Neutrophils % 71.4 Lymphocytes % 15.1 Monocytes % 12.4 Eosinophils % 0.0 Basophils % 0.4 Nucleated RBC % 0.0 Absolute Neutrophils 6.91 H Absolute Lymphocytes 1.46 Absolute Monocytes 1.20 H Absolute Eosinophils 0.00 Absolute Basophils 0.04 VBG pH 7.33 VBG pCO2 65 H* VBG pO2 34 VBG HCO3 34 H VBG Total CO2 31 H VBG O2 Saturation 72 VBG Base Excess 8 H VBG Lactate 0.7 Sodium 137 Potassium 4.3 Chloride 99 Carbon Dioxide 34.3 H Anion Gap 3.7 BUN 9 Creatinine 0.7 Est GFR (CKD-EPI 2020) 102.71 Glucose 162 H Calcium 9.9 Magnesium Total Bilirubin 0.6 AST 13 L ALT 15 Alkaline Phosphatase 71 Troponin I < 50 C-Reactive Protein 8.53 H NT-Pro-B Natriuret Pep 345 H Total Protein 7.2 Albumin 2.7 L Procalcitonin < 0.1 Urine Color Yellow Urine Clarity Clear Urine pH 6.0 Ur Specific Montara 1.020 Urine Protein 100 H Urine Ketones Negative Urine Blood Large H Urine Nitrite Negative Urine Bilirubin Negative Urine Urobilinogen 1.0 H Ur Leukocyte Esterase Negative Urine RBC >50 H Urine WBC Negative Ur Epithelial Cells Rare Urine Crystals Negative Urine Bacteria Rare Urine Casts Negative Urine Mucus Negative Ur Culture Indicated? No Urine Glucose Negative MRSA (TEM-PCR) Negative 07/26/23 06:06 WBC 6.15 RBC 4.40 Hgb 12.8 Hct 40.8 MCV 93 MCH 29.1 MCHC 31.4 L RDW 14.2 Plt Count 214 MPV 9.2 Immature Gran % 0.8 Neutrophils % 77.7 Lymphocytes % 15.0 Monocytes % 6.2 Eosinophils % 0.0 Basophils % 0.3 Nucleated RBC % 0.0 Absolute Neutrophils 4.78 Absolute Lymphocytes 0.92 L Absolute Monocytes 0.38 Absolute Eosinophils 0.00 Absolute Basophils 0.02 VBG pH VBG pCO2 VBG pO2 VBG HCO3 VBG Total CO2 VBG O2 Saturation VBG Base Excess VBG Lactate Sodium 140 Potassium 4.1 Chloride 101 Carbon Dioxide 31.8 Anion Gap 7.2 BUN 12 Creatinine 0.6 Est GFR (CKD-EPI 2020) 106.60 Glucose 244 H Calcium 9.6 Magnesium 1.6 L Total Bilirubin AST ALT Alkaline Phosphatase Troponin I C-Reactive Protein NT-Pro-B Natriuret Pep Total Protein Albumin Procalcitonin Urine Color Urine Clarity Urine pH Ur Specific Montara Urine Protein Urine Ketones Urine Blood Urine Nitrite Urine Bilirubin Urine Urobilinogen Ur Leukocyte Esterase Urine RBC Urine WBC Ur Epithelial Cells Urine Crystals Urine Bacteria Urine Casts Urine Mucus Ur Culture Indicated? Urine Glucose MRSA (TEM-PCR) Time Spent with Patient Time Spent with Patient: >50 minutes Time was spent: preparing to see the patient(eg.review tests), obtaining and/or reviewing separately otained hiistory, ordering medications,tests, procedures, referring, communicating with other health family day care provider, indepentently interpreting results, counseling the patient and care coordination
[2023-07-26] MEDS: MAGNESIUM SULFATE 2 GM/50 ML BAG IVINF (13:25)
[2023-07-26] MEDS: AZITHROMYCIN 500 MG in Normal Saline 250 ML 250 MG IVPB (15:26)
[2023-07-26] MEDS: Rosuvastatin 20 MG TAB 40 MG PO (21:32)
[2023-07-26] MEDS: Magnesium Oxide 400 MG TAB PO (21:32)
[2023-07-26] MEDS: cefTRIAXone 2 GM/50 ML BAG IVPB (21:33)
[2023-07-27] VITALS (15 sets, daily range): BP systolic 135–172; BP diastolic 83–96; PULSE 72–88; RESP 5–20; TEMP 36–37; O2SAT 90–96
[2023-07-27] MEDS: Acetaminophen 500 MG TAB 1000 MG PO ×3 (00:24→20:50)
[2023-07-27] MEDS: HYDROmorphone 2 MG/ML SYR 1 MG IVP ×3 (00:25→20:54)
[2023-07-27] MEDS: Normal Saline Flush 10 ML SYR IVP ×3 (00:27→20:53)
[2023-07-27] MEDS: Albuterol/Ipratropium 3 ML UPD VIAL UPD ×4 (00:30→17:59)
--- NOTE | 2023-07-27 02:25 | WOUNDCONS ---
Date of service: 07/27/23 Time of Service: 02:27 Wound Initial Evaluation Narrative Narrative: Morbidly obese 53 year old with extensive pannus admitted on 07/25/23 for respiratory failure. Past medical history is not limited to but includes COPD with home O2 usage, tobacco abuse, HELEN and DM. There are multiple abdominal ulcerations that are wet, open and foul smelling with purulent exudate. The patient states that home health has been assisting with wound care for more than a year. Recent labs, H&P and allergies reviewed. BMI is 52.1. Wound photo consent signed Wound Under Pannus: Wound Type: Full Thickness Wound General Appearance: Reddened and Draining Wound Bed Greatest Portion: Red (Granulation) Wound Drainage Odor: Foul Odor Wound Drainage Description: Bloody and Purulent Additional Other Comments: Baby shampoo used with warm water for cleansing Pain Pain Level: 8 Pain Description: Burning and Sharp Additional Other Comments: prn 1 mg dilaudid IV prior to dressing change Wound Summary Wound Summary: Discussed with patient the need to keep wound clean and dry with medicated lotion applied as a thin layer to ulcerations. Per staff, the wound area has made improvement in healing since admission. Photo Photo: Treatment/Dressing Change Dressing Types: ABD Pad Dressing Comment: Cleanse wound area with baby shampoo added to warm water, then pat dry. Nutrition Education Reviewed Nutrition Education: Yes Note: Discussion with patient that increased protein needs helps with optimal wound healing. Patient agreed that she would like to increase her protein intake. Recomendation Recomendation:: Every shift remove soiled abdominal pads. Cleanse with warm soap (baby shampoo) and water Pat dry with towel. Apply Nahid's cream to ulcerated areas and areas with erythema Tuck abdominal pads under pannus skin folds Treatment Time Time Total Time Spent with Patient: 60
[2023-07-27 06:31] LABS: Abs Immature Grans 0.04 10^3/uL (0.0-0.06); Absolute Basophil Count 0.01 10^3/uL (0.0-0.2); Absolute Lymphocyte Count 1.95 10^3/uL (1.2-3.4); Absolute Neutrophil Count 4.88 10^3/uL (1.2-6.7); Basophils % 0.1 %; HCT 37.9 % (36.0-46.0); HGB 11.9 g/dL (11.2-15.7); Immature Grans % 0.5 %; Lymphocytes % 25.4 %; MCHC 31.4 % (32.0-36.0); MCV 92 fL (80-95); MPV 9.4 fL (8.0-11.0); Monocytes % 10.4 %; Neutrophils % 63.6 %; Platelet Count 236 10^3/uL (130-400); RBC 4.11 10^6/uL (3.93-5.22); RDW 13.9 % (11.7-14.6); RDW-SD 47.3 fL; WBC 7.68 10^3/uL (4.4-10.8)
[2023-07-27 06:38] LABS: Anion Gap 5.1 mmol/L (3-11); BUN 13 mg/dL (7-18); CO2 33.9 mmol/L (21.0-32.0); CREATININE 0.6 mg/dL (0.55-1.02); Calcium 9.4 mg/dL (8.5-10.1); Chloride 103 mmol/L (98-107); Glucose 172 mg/dL (74-106); Potassium 3.9 mmol/L (3.5-5.1); Sodium 142 mmol/L (136-145)
[2023-07-27 06:39] LABS: Magnesium 1.8 mg/dL (1.8-2.4)
[2023-07-27] MEDS: oxyCODONE 15 MG TAB PO ×3 (06:39→22:16)
[2023-07-27] MEDS: Umeclidinium 7 CAP INHALER 1 CAP IH (07:58)
[2023-07-27] MEDS: Budesonide/Formoterol 160/4.5 6 GM 60 PUFF INH IH ×2 (07:58→20:05)
[2023-07-27] MEDS: ARIPiprazole 5 MG TAB 10 MG PO (08:26)
[2023-07-27] MEDS: Methylphenidate 10 MG TAB 20 MG PO ×2 (08:26→15:15)
[2023-07-27] MEDS: Enoxaparin 60 MG/0.6 ML SYR SC ×2 (08:26→20:50)
[2023-07-27] MEDS: Lisinopril 20 MG TAB 40 MG PO (08:26)
[2023-07-27] MEDS: Atenolol 50 MG TAB PO (08:27)
[2023-07-27] MEDS: predniSONE 20 MG TAB 40 MG PO (08:27)
[2023-07-27] MEDS: Docusate Sodium 100 MG CAP PO ×3 (08:27→20:51)
[2023-07-27] MEDS: Pantoprazole 40 MG TABCR PO (08:27)
[2023-07-27] MEDS: guaiFENesin 600 MG TABCR PO ×2 (08:27→20:50)
[2023-07-27] MEDS: Polyethylene Glycol 3350 17 GM PACKET PO (08:28)
[2023-07-27] MEDS: Nystatin POWDER 15 GM JAR TP ×2 (08:28→20:52)
[2023-07-27] MEDS: SITagliptin 100 MG TAB PO (08:28)
[2023-07-27] MEDS: buPROPion-XL 150 MG TABCR 450 MG PO (08:28)
[2023-07-27] MEDS: Clotrimazole 1% 15 GM TUBE TP ×2 (08:29→20:52)
[2023-07-27] MEDS: Insulin Aspart 300 UNITS/3 ML PEN SC ×4 (08:31→20:53)
--- NOTE | 2023-07-27 10:25 | PT.INTREAT ---
PT Notes Visit Reasons: Acute Hypoxic Hypercabic Respiratory fail, COPD ex Inpatient Physical Therapy Treatment Note [facility] Date: 07/27/23 SUBJECTIVE: Rosibel states that she is feeling better than she did yesterday. She has been up several times as she did not sleep well. She reports requiring less assistance with walking as long as she has her walker. She c/o catheter leaking and staying wet around her becki area as well as drainage from wounds under her abdominal fold. She also c/o increased pain with any mvmt as it eleonora at her wounds. OBJECTIVE: []? PAIN: wounds and becki area VITALS: ?monitored by nsg ? BED MOBILITY/TRANSFERS? Rosibel seating in recliner chair ? Sit-stand: SBA? Stand-sit:SBA ? Provided skilled cues and instruction on performance and technique throughout. ? Therapeutic Exercises (23045x3): Direct one-on-one instruction in therapeutic exercises to develop strength, endurance, range of motion and flexibility. ? Exercises ?heel/toe raises x20, LAQ x10ea, hip flex x10ea, attempted hip ab/add however increased shearing of wounds. Sit to stands with min use of hands x3 (increased pain at catheter and wounds) Ambulation ? Assistive Device: FWW ? Weight bearing: AT Assist: SBA ? Distance:?march in place x 2min? Deviation: 2L of O2? Provided skilled instruction in proper exercise performance ASSESSMENT:?Rosibel got weepy and frustrated when increased pain at wounds during exercise routine. She did well with functional mobility as far as safety is concerned. Any mvmt at abdominal area increased pain due to shearing. Improvement noted with her functional mobility noted compared to yesterday. PLAN: will continue to work on her strength and functional mobility avoiding shearing at abdominal folds. TREATMENT CODE/TIME: 15 min ([id number])
[2023-07-27] MEDS: AZITHROMYCIN 500 MG in Normal Saline 250 ML 250 MG IVPB (16:23)
--- NOTE | 2023-07-27 16:32 | PGE_ITS ---
Date of Service Date of service: 07/27/23 Time of Service: 11:00 Assessment and Plan Assessment and plan (1) Acute hypoxic on chronic hypercapnic respiratory failure: Status: Acute Assessment and plan: Continue IV ceftriaxone Continue IV azithromycin Continue to monitor vital signs and maintain sat above 88% with O2 supplementation: On baseline O2 now Continue intensive pulmonary toilet, Incentive spirometer, Acapella Continue Mucinex, DuoNeb scheduled and PRN Albuterol Blood cultures are negative at 48 hours (2) Right lower lobe pneumonia: Status: Acute Assessment and plan: As above (3) COPD exacerbation: Status: Acute Assessment and plan: As above Exacerbation resolving On home umeclidinium continue daily dose of oral prednisone 40 mg (4) GERD (gastroesophageal reflux disease): Status: Chronic Assessment and plan: continue pantoprazole (5) HTN (hypertension): Status: Chronic Assessment and plan: Continue atenolol, torsemide, lisinopril at home dosing (6) Diabetes mellitus: Status: Chronic Assessment and plan: Contiue blood glucose AC and HS, home dose of Januvia Sliding scale insulin coverage - resistant scale (7) HELEN (obstructive sleep apnea): Status: Chronic Assessment and plan: Not on CPAP at home (8) Skin ulcer: Status: Acute Assessment and plan: Wound consult done: dressing change orders in Wound culture gram stain negative Briggs placed in the ED discontinued today, BSC void pending UA was negative (9) On deep vein thrombosis (DVT) prophylaxis: Status: Acute Assessment and plan: On SC lovenox (10) Discharge planning issues: Status: Acute Assessment and plan: CM to f/u HH at home CLINICAL APPEALS SPECIALIST PT consult in progress- recommendation for home services Discussed with Dr. Llanes Subjective Subjective Patient reports: feels better, tolerating liquids well, tolerating a regular diet, voiding w/o difficulty (briggs removed), flatus, bowel movement and shortness of breath (improve on baseline O2 supplementation ); denies diarrhea, blood in stool, nausea, vomiting or fever Exam Narrative Exam Narrative: Constitutional The patient is in bed comfortable, w oxy mask at 4l/min, without acute distress and has morbidly obese body habitus HENMT: Facial structures with normal appearance Eyes: Well aligned Neuro:alert and oriented X3 Resp:less coarse breath sounds mostly on the right w diminished bases lung bilaterally more so to the RLL Cardio: regular rhythm, S1, S2, no murmur, radial and pedal pulse are positive GI: Abdomen is obese, with extensive pannus, not distended, soft and non tender, bowel sounds are present : no bladder distension, Briggs discontinued Integumentary: Abdominal ulcerations: , wet, multiple and opened, Skin under the pannus: extensive erythema improving vulvar ulcers: on labias-superficial no erythema, HSV negative in May 2023 Psych: RASS 0, congruent mood and normal affect. Objective Last Vital Signs Temp 36.8 C 07/27/23 16:00 Pulse 72 07/27/23 16:00 Resp 16 07/27/23 16:00 BP 172/96 H 07/27/23 16:00 Pulse Ox 96 07/27/23 16:00 Laboratory Results - last 24 hr 07/27/23 06:03 WBC 7.68 RBC 4.11 Hgb 11.9 Hct 37.9 MCV 92 MCH 29.0 MCHC 31.4 L RDW 13.9 Plt Count 236 MPV 9.4 Immature Gran % 0.5 Neutrophils % 63.6 Lymphocytes % 25.4 Monocytes % 10.4 Eosinophils % 0.0 Basophils % 0.1 Nucleated RBC % 0.0 Absolute Neutrophils 4.88 Absolute Lymphocytes 1.95 Absolute Monocytes 0.80 Absolute Eosinophils 0.00 Absolute Basophils 0.01 Sodium 142 Potassium 3.9 Chloride 103 Carbon Dioxide 33.9 H Anion Gap 5.1 BUN 13 Creatinine 0.6 Est GFR (CKD-EPI 2020) 106.60 Glucose 172 H Calcium 9.4 Magnesium 1.8 Time Spent with Patient Time Spent with Patient: >50 minutes Time was spent: preparing to see the patient(eg.review tests), obtaining and/or reviewing separately otained hiistory, ordering medications,tests, procedures, referring, communicating with other health early breastfeeding care specialist, indepentently interpreting results, counseling the patient and care coordination
[2023-07-27] MEDS: Magnesium Oxide 400 MG TAB PO (20:50)
[2023-07-27] MEDS: Rosuvastatin 20 MG TAB 40 MG PO (20:50)
[2023-07-27] MEDS: cefTRIAXone 2 GM/50 ML BAG IVPB (20:51)
[2023-07-27] MEDS: Melatonin 3 MG TAB PO (22:16)
[2023-07-28] VITALS (8 sets, daily range): BP systolic 141–168; BP diastolic 75–99; PULSE 71–78; RESP 2–20; TEMP 36.7–36.9; O2SAT 94–98
[2023-07-28] MEDS: Albuterol/Ipratropium 3 ML UPD VIAL UPD ×2 (00:08→12:10)
[2023-07-28 06:57] LABS: Abs Immature Grans 0.08 10^3/uL (0.0-0.06); Absolute Basophil Count 0.02 10^3/uL (0.0-0.2); Absolute Lymphocyte Count 2.35 10^3/uL (1.2-3.4); Absolute Monocyte Count 0.72 10^3/uL (0.1-0.8); Absolute Neutrophil Count 3.77 10^3/uL (1.2-6.7); Basophils % 0.3 %; HCT 40.9 % (36.0-46.0); Immature Grans % 1.2 %; Lymphocytes % 33.9 %; MCH 29.3 pg (27.0-33.0); MCHC 31.8 % (32.0-36.0); MCV 92 fL (80-95); MPV 8.9 fL (8.0-11.0); Monocytes % 10.4 %; Neutrophils % 54.2 %; Platelet Count 241 10^3/uL (130-400); RBC 4.44 10^6/uL (3.93-5.22); RDW 13.9 % (11.7-14.6); RDW-SD 47.3 fL; WBC 6.94 10^3/uL (4.4-10.8)
[2023-07-28] MEDS: Umeclidinium 7 CAP INHALER 1 CAP IH (07:37)
[2023-07-28] MEDS: Budesonide/Formoterol 160/4.5 6 GM 60 PUFF INH IH (07:38)
[2023-07-28 07:50] LABS: Anion Gap 7.1 mmol/L (3-11); BUN 13 mg/dL (7-18); CO2 33.9 mmol/L (21.0-32.0); CREATININE 0.6 mg/dL (0.55-1.02); Calcium 10.1 mg/dL (8.5-10.1); Chloride 100 mmol/L (98-107); Glucose 164 mg/dL (74-106); Potassium 4.1 mmol/L (3.5-5.1); Sodium 141 mmol/L (136-145)
[2023-07-28] MEDS: SITagliptin 100 MG TAB PO (09:05)
[2023-07-28] MEDS: Methylphenidate 10 MG TAB 20 MG PO (09:05)
[2023-07-28] MEDS: Lisinopril 20 MG TAB 40 MG PO (09:05)
[2023-07-28] MEDS: Enoxaparin 60 MG/0.6 ML SYR SC (09:05)
[2023-07-28] MEDS: guaiFENesin 600 MG TABCR PO (09:05)
[2023-07-28] MEDS: HYDROmorphone 2 MG/ML SYR 1 MG IVP (09:06)
[2023-07-28] MEDS: ARIPiprazole 5 MG TAB 10 MG PO (09:06)
[2023-07-28] MEDS: Docusate Sodium 100 MG CAP PO (09:06)
[2023-07-28] MEDS: Pantoprazole 40 MG TABCR PO (09:06)
[2023-07-28] MEDS: predniSONE 20 MG TAB 40 MG PO (09:06)
[2023-07-28] MEDS: buPROPion-XL 150 MG TABCR 450 MG PO (09:06)
[2023-07-28] MEDS: Atenolol 50 MG TAB PO (09:09)
[2023-07-28] MEDS: Normal Saline Flush 10 ML SYR IVP ×2 (09:18→09:52)
--- NOTE | 2023-07-28 09:20 | PDOC.CMPRO ---
Date of service: 07/28/23 Time of Service: 09:20 Care Management Progress Note Progress Note Text Progress Note Text: S/O: A: Rosibel is a 53 year old woman admitted on 07/25/23 with COPD and Respiratory failure Discharge Potential Discharge Needs: PCP F/U Appt Anticipated Barriers to Discharge: None Identified Patient/Family Education Needs: Review discharge instructions, discuss Ask Me Three Transportation: Private vehicle Plan: Anticipate Rosibel will be discharged home with new orders for home health PT. She will follow up with her community providers and plan of care and transport with family. CM will follow and support discharge needs. SDOH(Care Management) Screening Will the Patient Participate in the Screening?: Declined to provide Do you worry about having a steady place to live?: choose not to answer In the past 12 months, have you had to go without electric, gas, oil or water in your home?: choose not to answer Have you or anyone in your house had to go without enough food to eat?: choose not to answer Has lack of transportation kept you from medical appointments or from doing things needed for daily living?: choose not to answer Has anyone in your support network made you feel unsafe for any reason?: choose not to answer
[2023-07-28] MEDS: Insulin Aspart 300 UNITS/3 ML PEN SC ×2 (09:33→12:18)
--- NOTE | 2023-07-28 11:03 | DSE_ITS ---
Date of service: 07/28/23 Time of Service: 11:03 DS: Diagnosis Discharge Diagnosis (1) Acute hypoxic on chronic hypercapnic respiratory failure: Status: Acute (2) Right lower lobe pneumonia: Status: Acute (3) COPD exacerbation: Status: Acute (4) GERD (gastroesophageal reflux disease): Status: Chronic (5) HTN (hypertension): Status: Chronic (6) Diabetes mellitus: Status: Chronic (7) HELEN (obstructive sleep apnea): Status: Chronic (8) Skin ulcer: Status: Acute Discharge Plan Disposition Patient Disposition: Home W/Home Health Services Condition: Stable Discharge Details Reason For Visit: Acute Hypoxic Hypercabic Respiratory fail, COPD ex Admit Date/Time: 07/25/23 16:09 Admit Provider: Dandy Suarez Attending Provider: Dandy Suarez Primary Care Provider: Maria Del Carmen Nogueira Hospital Course Hospital Course: This is a 53-year-old female super morbid obese past medical history of COPD oxygen dependent ongoing tobacco abuse abdominal skin ulcers GERD obstructive sleep apnea presented to the emergency department by private vehicle for complaints of cough back pain and pleuritic chest pain that she has had for couple days. Her workup in the emergency department did show increased oxygen requirements from her baseline in addition to a right lower lobe pneumonia. She was started on ceftriaxone and azithromycin and admitted to the medical surgical unit for further management. She also received IV steroids and was transition to oral prednisone for component of COPD exacerbation. She underwent a wound care consult with wound care dressing recommendations as outlined in the discharge instructions. She has responded to treatment and is stable for discharge to home. She will be discharged home with home health services for wound care. She will complete a course of antibiotics with cefpodoxime for 5 more days and prednisone burst for 3 more days. discharge discussed with DR Llanes Home Meds and New Rx's Prescriptions: New prednisone 20 mg Tablet 40 mg PO DAILY Qty: 6 0RF cefpodoxime 200 mg tablet 200 mg PO BID Qty: 10 0RF Rx Instructions: must administer with a meal/food Continued oxycodone 15 mg tablet 15 mg PO TID PRN rosuvastatin 40 mg tablet 40 mg PO HS desvenlafaxine succinate [Pristiq] 100 MG tablet extended release 24 hr 100 mg PO DAILY atenolol 50 MG tablet 50 mg PO DAILY aripiprazole [Abilify] 10 MG tablet 10 mg PO DAILY nystatin 1 EACH powder 1 ea PO TID PRN fenofibrate 160 MG tablet 160 mg PO DAILY lisinopril 20 MG tablet 40 mg PO DAILY ipratropium-albuterol 0.5 mg-3 mg(2.5 mg base)/3 mL solution for nebulization 3 ml inhalation Q4H PRN (Reason: wheezing) Qty: 540 12RF albuterol sulfate 90 mcg/actuation HFA aerosol inhaler 1 - 2 puff Inhalation Q4H PRN Qty: 8.5 6RF azithromycin 250 mg tablet See Rx Instructions .ROUTE .COMPLEX Qty: 90 3RF Dose Instruction: Take 1 tablet by mouth once daily Rx Instructions: Take 1 tablet by mouth once daily Incruse Ellipta 62.5 mcg/actuation blister with device See Rx Instructions .ROUTE .COMPLEX Qty: 30 12RF Dose Instruction: Inhale 1 puff by mouth once daily Rx Instructions: Inhale 1 puff by mouth once daily magnesium oxide 400 mg (241.3 mg magnesium) Tablet 400 mg PO HS Qty: 30 0RF torsemide 20 mg tablet 20 mg PO DAILY PRN Patient Comments: TAKE 1 TABLET BY MOUTH ONCE DAILY naloxone [Narcan] 4 mg/actuation [place],Non-Aerosol 4 mg Intranasal PRN PRN (Reason: excessive sedation) methylphenidate HCl [Ritalin] 20 mg Tablet 20 mg PO BID insulin aspart U-100 [Novolog FlexPen U-100 Insulin] 100 unit/mL (3 mL) insulin pen 0 sliding scale dose SUBCUT AC Rx Instructions: MAXIMUM OF 50 UNITS PER 24 HOURS Januvia 100 mg tablet 100 mg PO DAILY fluticasone propion-salmeterol [Advair HFA] 230-21 mcg/actuation HFA aerosol inhaler 1 puff INHALATION BID bupropion HCl 150 mg tablet extended release 24 hr 150 mg PO DAILY Patient Comments: TAKE ONE TABLET BY MOUTH EVERY MORNING IN COMBINATION WITH 300MG bupropion HCl 300 mg tablet extended release 24 hr 300 mg PO DAILY Patient Comments: TAKE ONE TABLET BY MOUTH EVERY DAY gabapentin 600 mg tablet 600 mg PO HS Patient Comments: TAKE ONE TABLET BY MOUTH AT BEDTIME lansoprazole 30 mg capsule,delayed release(DR/EC) 30 mg PO DAILY Patient Comments: TAKE ONE CAPSULE BY MOUTH EVERY DAY (REPLACING PROTONIX) Discharge Instructions Instructions: Pneumonia (DC) Additional Instructions: Every shift remove soiled ABD and Maxorb pads. Cleanse with warm soap (baby shampoo) and water. If patient will tolerate, Anasept spray can be used Pat dry with towel. Apply Nystatin powder to areas with erythema Tuck ABD pads under pannus skin folds placing Maxorb II on weeping ulcerations Stand Alone Forms: Nursing Discharge Form Referrals: Maria Del Carmen Nogueira PA [Primary Care Provider] - (Please call the office to set up a hospital follow up within 10-14 days. ) Activity:: Activity as Tolerated Equipment/Supplies:: No Equipment Needed Diet:: As Tolerated Discharge Orders Discharge Orders: Discharge Order (Routine); Ordered 07/28/23 Ordered By: Mar Scott Discharge Data Discharge Date/Time-TO BE ENTERED AT DEPARTURE: 07/28/23 13:43 DS: Summary Time Spent with Patient providing and/or coordinating discharge services: Greater than 30 minutes Status at Discharge Functional status at discharge: uses cane/walker Overall status at discharge: patient is progressing back to baseline Mental Status: mental status grossly normal Speech and Movement: speech and movement normal Mood: congruent mood Affect: normal affect Quality:SDOH Health Related Social Needs: No Data to Display Exam Const General: cooperative, frail appearing and ill appearing chronically Nutritional Appearance: obese morbidly obese Orientation: alert, awake and oriented x3 HENMT Head: normal to inspection, normocephalic and atraumatic Mouth: moist mucous membranes abnormal (dry) Chest Chest: normal inspection of the chest Resp Effort & Inspection: cough Quality of cough: productive, labored and tachypneic Auscultation: diminished lung sounds and no wheezes Cardio Rate: regular rate Rhythm: regular rhythm GI Palpation: soft Auscultation: normal bowel sounds Skin Lesions: lesion noted (Ulcerations to abdominal pannus fold with no significant surrounding erythe) Neuro General: patient alert, patient awake, patient oriented x3, tone normal and moves all extremities Psych Mental Status: mental status grossly normal Speech and Movement: speech and movement normal Mood: congruent mood Affect: normal affect DS: Data Vitals/I&O Vitals and I&O: Vital Signs Temperature 36.7 C 07/28/23 07:21 Temperature Source Tympanic 07/28/23 07:21 Pulse 72 07/28/23 07:21 Pulse Rhythm Regular 07/28/23 05:43 Pulse 84 07/25/23 16:50 Respiratory Rate 19 07/28/23 07:21 Respiratory Effort Normal 07/28/23 07:49 Respiratory Depth Normal 07/28/23 07:49 Respiratory Pattern Normal 07/28/23 07:49 Blood Pressure 158/99 H 07/28/23 07:21 Blood Pressure Mean 84 07/25/23 16:16 Blood Pressure Position Sitting 07/25/23 12:50 Pulse Oximetry 98 07/28/23 07:21 Respiratory End-tidal CO2 48 07/25/23 16:50 Oxygen Delivery Method Nasal Cannula 07/28/23 07:49 Oxygen Flow Rate 3 07/28/23 07:49 Pain Level 9 07/28/23 09:06 Comment RN Notified 07/27/23 03:51 Intake & Output 07/27/23 07/27/23 07/28/23 11:59 23:59 11:59 Intake Total 300 / 300 550 / 550 Output Total 1050 / 2650 1600 / 2650 Balance -1050 / -2350 -1300 / -2350 550 / 550 Intake: IV 300 / 300 50 / 50 Oral 500 / 500 Output: Urine 1050 / 2650 1600 / 2650 Other: Urine Color Light Maritza Yellow Yellow Urine Appearance Clear Clear Clear Urine Odor Normal None Stool Size Copious Stool Characteristics Formed Voiding Methods Bedside Commode Bedside Commode Data Completed and Pending Labs on day of discharge: Labs from last 24 hours 07/28/23 06:34 WBC 6.94 RBC 4.44 Hgb 13.0 Hct 40.9 MCV 92 MCH 29.3 MCHC 31.8 L RDW 13.9 Plt Count 241 MPV 8.9 Immature Gran % 1.2 Neutrophils % 54.2 Lymphocytes % 33.9 Monocytes % 10.4 Eosinophils % 0.0 Basophils % 0.3 Nucleated RBC % 0.0 Absolute Neutrophils 3.77 Absolute Lymphocytes 2.35 Absolute Monocytes 0.72 Absolute Eosinophils 0.00 Absolute Basophils 0.02 Sodium 141 Potassium 4.1 Chloride 100 Carbon Dioxide 33.9 H Anion Gap 7.1 BUN 13 Creatinine 0.6 Est GFR (CKD-EPI 2020) 106.60 Glucose 164 H Calcium 10.1 07/27/23 16:01 Vulvar Skin Culture - Pending Preliminary micro results at discharge 07/26/23 10:20 Wound Culture - Preliminary Abdomen Normal Amirah 07/27/23 16:01 Skin Culture - Pending Vulvar 07/25/23 16:35 Blood Culture - Preliminary Blood NO GROWTH 48 HOURS 07/25/23 13:48 Blood Culture - Preliminary Blood NO GROWTH 48 HOURS PFSH All Active Problems (Updated 07/25/23 @ 18:07 by Neva Hull APRN) Skin ulcer (Acute) Discharge planning issues (Acute) On deep vein thrombosis (DVT) prophylaxis (Acute) Right lower lobe pneumonia (Acute) Acute hypoxic on chronic hypercapnic respiratory failure (Acute) COPD exacerbation (Acute) Hypoxic respiratory failure (Acute) Genital labial ulcer (Acute) Neg HSV cx. Etiology pressure sores from abdominal pannus Skin ulcer of abdominal wall (Acute) lateral margins R and L lower quadrants 2/2 obesity. Pneumonia (Acute) Dyspnea (Acute) Medication monitoring encounter (Acute) Pneumonia (Acute) Contraceptive management (Acute) COPD (chronic obstructive pulmonary disease) (Chronic) GERD (gastroesophageal reflux disease) (Chronic) Abnormal uterine bleeding (Acute) Mood disorder (Acute) Hypercalcemia (Acute) HTN (hypertension) (Chronic) HELEN (obstructive sleep apnea) (Chronic) Tobacco abuse (Chronic) Diabetes mellitus (Chronic) COPD with acute exacerbation (Acute) Primary osteoarthritis of both knees (Chronic 05/01/15) Medical History Smoker Diabetes mellitus type 2 in obese Hyperlipidemia Chronic atrophic candidosis Morbid obesity HELEN (obstructive sleep apnea) Depression with anxiety Surgical History Ligation of fallopian tube Tonsillectomy and adenoidectomy Open Carpal Tunnel release Repair of umbilical hernia Cholecystectomy (12/07/15) LAPAROSCOPIC WITH INTRAOPERATIVE CHOLANGIOGRAM/[facility] Bilat partial saplinectomy Family History Other COPD (chronic obstructive pulmonary disease) Cancer Social History Smoking/Tobacco Use Status: Current every day Tobacco Type: cigarettes Tobacco: How many years used: 40 Quit status: considering quitting Second Hand Exposure: Yes Smoking risk assessment performed?: Yes Alcohol Intake: never Drug use: Never Substance use type: does not use, opiates and painkillers Housing: apartment Current gender identity: female What is your relationship status?: living with partner Panel score (0-1 are the most socially isolated patients): 1 What type of physical activity do you participate in: none Seatbelt use: always Helmet use: Yes Do you feel safe at home: Yes Do you feel safe in your relationship?: Yes Additional Social history: Lives with a roomate, Douglas Harmon. History History 5 Para 2 Hx # Term Pregnancies Multiple births Hx # Pregnancies Ectopic pregnancies AB induced Hx Number of Living Children AB spontaneous Time Spent with Patient Time Spent with Patient: 70-84 minutes4 Time was spent: preparing to see the patient(eg.review tests), obtaining and/or reviewing separately otained hiistory, ordering medications,tests, procedures, indepentently interpreting results, counseling the patient and care coordination
--- NOTE | 2023-07-28 13:12 | CMDISCH_ITS ---
Date of service: 07/28/23 Time of Service: 13:12 LACE Index Scoring Tool Questions: Length of Stay (in days): 3 Was the patient admitted via the E.D.?: Yes Comorbidities: Diabetes w/o Complication and Chronic Pulmonary Disease E.D. Visits: 3 Answers: Total Score: 12 Risk of Readmission: High Risk Care Management Discharge Plan Reason for Hospitalization: COPD exacerbation Discharge Plan: Rosibel will be discharged home with no new services . She will follow up with her community providers and plan of care and transport with family. Patient/Family Education Needs: Review discharge instructions, activity, limitations, follow up plan and discuss Ask Me Three [facility] Health Related Social Needs: No Data to Display
--- NOTE | 2023-07-28 13:43 | PDOC.HHF2F_ITS ---
Home Health Referral Home Health Orders Clinical synopsis of why skilled professionals are needed: wound care, medication oversight, acute and chronic disease symptom management Medical diagnosis necessitation home health referral: pneumonia, multiple abdominal ulcerations Registered Nurse: Check all that apply Instruct on new or changed medication(s)/assess compliance: Ordered Assess wound for signs and symptoms of infection, instruct on wound care and/or provide skilled wound care consisting of: Due to the patient allergy to zinc the alternative lotion for Nahid's cream would be clotrimazole. Nystatin powder can be applied to rashy areas and skin folds. Ideally an effective Medline dressing for weeping wounds would be Optilock, however we do not have that product, hence the ABD pads and Maxorb II for moisture control. Recomendation:: Every day remove soiled ABD and Maxorb pads. Cleanse with warm soap (baby shampoo) and water. If patient will tolerate, Anasept spray can be used Pat dry with towel. Apply Nystatin powder to areas with erythema Tuck ABD pads under pannus skin folds placing Maxorb II on weeping ulcerations Home Bound Status Requires the aid of supportive device (check all that apply): Walker Describe why leaving home would require a considerable and taxing effort: Requires frequent rest periods Encounter Date and Reason: I certify that a FTF encounter for this patient was performed on July 28, 2023 and that such encounter was related to the primary reason the patient requires home health services. The encounter was conducted in the following manner: * By me as the certifying physician, RISK CONTROL REPRESENTATIVE, PA or * By an inpatient physician, RISK CONTROL REPRESENTATIVE or PA during an inpatient stay who communicated findings to me, Certification And Authentication I certify that I composed the above information based on my clinical judgment relating to this patient's medical condition and, if applicable, clinical findings communicated to me by the NPP or inpatient physician who performed the FTF encounter. Name of Provider that will be monitoring home health services: Maria Del Carmen Nogueira
--- NOTE | 2023-07-28 14:28 | W.NUTRFU ---
Date of service: 07/28/23 Time of Service: 10:00 Nutrition Note NOTE: received consult request for diabetes education and mgt. Pt is 53yo female who manages her diabetes with diet as well as sliding scale insulin aspart at meals, januvia and also states she takes basal insulin HS if glucose is >150mg/dL. Uses libreII CGM at home but does follow up with glucometer if value doesn't seem right or doesn't match her sx's. Was having constipation issues with no BM for 1.5 weeks prior to admission but has since moved her bowels. Lives in apartment with boyfriend and they split shopping and food prep responsibilities. Her A1c was 6.2% last Mar and historically <7%. She has been trying to lose weight recently but relates activity portion is difficult due to chronic illness and limited space in apartment. She declined detailed nutrition education for diabetes but did take my card with contact info for outpatient services as she might consider coming in for help with wt mgt. Pr reports fair to good appetite normally, just not quite the same in the hospital setting. Pt assessed at low acute nutritional risk. will continue to monitor labs, glucose trends, intake. Time Spent in Nutritional Counseling and Treatment: 5 minutes
== END 2023-07-28 13:43 | disposition home health service (06) | DRG 193 ==
LOC: ER 15:37 → MS 17:15
PROVIDERS: Nurse Practitioner Acute Care; Admitting Provider Family Medicine; Emergency Provider Physician Assistant; PCP Physician Assistant Medical; Visit Provider Family Medicine
DX: J18.9 Pneumonia, unspecified organism (principal); J96.01 Acute respiratory failure with hypoxia; J44.0 Chronic obstructive pulmonary disease with (acute) lower respiratory infection; Z68.43 Body mass index [BMI] 50.0-59.9, adult; J96.12 Chronic respiratory failure with hypercapnia; J44.1 Chronic obstructive pulmonary disease with (acute) exacerbation; I10 Essential (primary) hypertension; E11.9 Type 2 diabetes mellitus without complications; Z79.4 Long term (current) use of insulin; G47.33 Obstructive sleep apnea (adult) (pediatric); E66.01 Morbid (severe) obesity due to excess calories; K21.9 Gastro-esophageal reflux disease without esophagitis; Z99.81 Dependence on supplemental oxygen; F17.210 Nicotine dependence, cigarettes, uncomplicated; L89.899 Pressure ulcer of other site, unspecified stage; F39 Unspecified mood [affective] disorder; M17.0 Bilateral primary osteoarthritis of knee
CPT/HCPCS: 00123; 36415; 51702; 71275; 80048; 80053; 82805; 84145; 87040; 87641; 93005; 94640; 96365; 96367; 96368; 96375; 97110; 97162; 97530; 99285; 81003; 81015; 83605; 83735; 83880; 84484; 85025; 86140; 87070; 87205; 93010; 94664; 94667; 94668; 94760; 99223; 99233; 99239; J0456; J0696; J1170; J1650; J1815; J2919; J3475; J3490; J7512; J7620

== ENCOUNTER 2023-11-10 17:15 | Outpatient (REF) | payer MEDICARE, MEDICAID, SELFPAY ==
--- OUTSIDE RECORDS SUMMARY | 2023-11-10 17:34 | XMS_ITS | Continuity of Care Document ---
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 Name Role Phone MARÍA TAPIA PA-C Primary Care Denny salomon Encounter LTTL_ID FIN NBR [id number] Date(s): 08/27/23 - 08/27/[address] [address] Encounter Diagnosis Nuclear age-related cataract, right eye(Discharge Diagnosis) - 08/23/23 Posterior subcapsular age-related cataract, right eye(Discharge Diagnosis) - 08/23/23 Discharge Disposition: Home or Self Care Attending Physician: Rajendra Cabrera MD Admitting Physician: Rajendra Cabrera MD Referring Physician: Rajendra Cabrera MD Allergies, Adverse Reactions, Alerts Substance Reaction Severity Status amoxicillin Rash Mild Active Adhesive Bandage Rash Mild Active sulfa drugs Unknown Active Zinc Unknown Active Functional Status 08/27/23 Family Member Travel History No recent t ravel Recent Travel History No recent travel Other exposure to Infectious Disease Non e 08/25/23 Living Situation Home with home healt h 1 1Result Comment: wound care Medications Albuterol (Eqv-Ventolin HFA) 90 mcg/inh inhalation aerosol 2 puffs, Inhale, every 4 hr, PRN as needed for wheezing, 0 Refill(s) Start Date: 08/25/23 Status: Ordered albuterol 2.5 mg/3 mL (0.083%) inhalation solution 2.5 mg = 3 mL, Nebulized Inhalation, every 6 hr, PRN as needed for wheezing, 0 Refill(s) Start Date: 08/25/23 Status: Ordered ARIPiprazole 10 mg oral tablet 10 mg = 1 tab, Oral, Daily, 0 Refill(s) Start Date: 08/25/23 Status: Ordered atenolol 50 mg oral tablet 50 mg = 1 tab, Oral, Daily, 0 Refill(s) Start Date: 08/25/23 Status: Ordered azithromycin 250 mg oral tablet 250 mg = 1 tab, Oral, Daily, prophylactic, 0 Refill(s) Start Date: 08/25/23 Status: Ordered BACLOFEN 10 MG TABLET BACLOFEN 10 MG TABLET, 1 tab, Oral, TID, PRN pain, 0 Refill(s) Start Date: 08/25/23 Status: Ordered Basaglar KwikPen 100 units/mL subcutaneous solution 12 units =, Subcutaneous, every night at bedtime, if over 200 at HS, 0 Refill(s) Start Date: 08/25/23 Status: Ordered buPROPion 300 mg/24 hours (XL) oral tablet, extended release 1.5 tabs, Oral, Daily, 0 Refill(s) Start Date: 08/25/23 Status: Ordered busPIRone 7.5 mg oral tablet 7.5 mg = 1 tab, Oral, BID, PRN anxiety, 0 Refill(s) Start Date: 08/25/23 Status: Ordered desvenlafaxine (as succinate) 100 mg oral tablet, extended release 100 mg = 1 tab, Oral, Daily, 0 Refill(s) Start Date: 08/25/23 Status: Ordered Dibucaine 1% topical ointment 1 betsey, Topical, QID, PRN as needed for pain, 0 Refill(s) Start Date: 08/25/23 Status: Ordered fenofibrate 160 mg oral tablet 160 mg = 1 tab, Oral, every night at bedtime, 0 Refill(s) Start Date: 08/25/23 Status: Ordered fluticasone-salmeterol CFC free 230 mcg-21 mcg/inh inhalation aerosol 2 puffs, Inhale, BID, 0 Refill(s) Start Date: 08/25/23 Status: Ordered gabapentin 600 mg oral tablet 600 mg = 1 tab, Oral, BID, takes 600mg in am and 800mg HS, 0 Refill(s) Start Date: 08/25/23 Status: Ordered Incruse Ellipta 62.5 mcg/inh inhalation powder 1 EA, Inhale, every 24 hr, 0 Refill(s) Start Date: 08/25/23 Status: Ordered Januvia 100 mg oral tablet 100 mg 1 tab, Oral, Daily, 0 Refill(s) Start Date: 08/25/23 Status: Ordered lansoprazole 30 mg oral delayed release capsule 30 mg = 1 cap, Oral, Daily, 0 Refill(s) Start Date: 08/25/23 Status: Ordered lisinopril 40 mg oral tablet 40 mg = 1 tab, Oral, Daily, 0 Refill(s) Start Date: 08/25/23 Status: Ordered magnesium oxide 400 mg (241.3 mg elemental magnesium) oral tablet 400 mg = 1 tab, Oral, every evening, 0 Refill(s) Start Date: 08/25/23 Status: Ordered methylphenidate 20 mg oral tablet 20 mg = 1 tab, Oral, BID, 0 Refill(s) Start Date: 08/25/23 Status: Ordered naloxone 4 mg/0.1 mL nasal spray 1 sprays, Nostril-Both, Once, may repeat every 2 to 3 minutes until patient responds, 0 Refill(s) Start Date: 08/25/23 Status: Ordered NovoLOG FlexPen 100 units/mL injectable solution 4 units =, Subcutaneous, TID(AC), sliding scale, 0 Refill(s) Start Date: 08/25/23 Status: Ordered oxyCODONE 15 mg oral tablet 15 mg = 1 tab, Oral, TID, PRN as needed for pain, 0 Refill(s) Start Date: 08/25/23 Status: Ordered oxyCODONE 5 mg oral tablet 5 mg = 1 tab, Oral, BID, PRN as needed for pain, 0 Refill(s) Start Date: 08/25/23 Status: Ordered rosuvastatin 40 mg oral tablet 40 mg = 1 tab, Oral, every night at bedtime, 0 Refill(s) Start Date: 08/25/23 Status: Ordered torsemide 20 mg oral tablet 20 mg = 1 tab, Oral, BID, prn edema, 0 Refill(s) Start Date: 08/25/23 Status: Ordered Problem List Condition Confirmation Course Effective Dates Status H ealth Status Informant COPD with asthma Confirmed Active Chronic pain Confirmed Active Chronic respiratory failure Confirmed Active Chronic ulcer of skin 1 Confirmed Active Dependence on continuous supplemental oxygen 2 Confirmed Active Diabetes mellitus Confirmed Active GERD - Gastro-esophageal reflux disease Confirmed Active Heart failure Confirmed Active Hidradenitis suppurativa Confirmed Active History of colonic polyp Confirmed Active History of kidney stone Confirmed Active History of pneumonia Confirmed 07/26/23 Active HLD - Hyperlipidemia Confirmed Active HTN - Hypertension Confirmed Active Hypomagnesemia Confirmed Active Nocturnal enuresis Confirmed Active HELEN - Obstructive sleep apnea 3 Confirmed Active Peripheral edema Confirmed Active Primary gonarthrosis, bilateral Confirmed Active 1abdomen 23l o2 NC 3no cpap at [facility] Procedures Procedure Date Related Diagnosis Body Site Status Cataract Extraction with IOL (Right) 1 08/27/23 Completed Cardiac echo 2 03/02/19 Completed Bilateral tubal ligation Completed Cholecystectomy Completed Cold knife cone biopsy of cervix Completed Colonoscopy Completed CTR - carpal tunnel release Completed Hernia repair 3 Completed Tonsillectomy and adenoidectomy Completed 1auto-populated from documented surgical case 2mild LVH EF 55% mild aortic regurg 3x2 Vital Signs Most recent to oldest [Reference Range]: 1 2 3 Temperature Temporal Artery [36-38 Deg C] 36.2 Deg C (08/27/23 8:30 AM) 36.0 Deg C (08/27/23 8:22 AM) 37 Deg C (08/27/23 6:59 AM) Temperature Temporal Artery (DegF) [97.3-100 Deg F] 97.16 Deg F *LOW* (08/27/23 8:30 AM) 96.8 Deg F *LOW* (08/27/23 8:22 AM) 98.6 Deg F (08/27/23 6:59 AM) Peripheral Pulse Rate [60-100 bpm] 87 bpm (08/27/23 8:30 AM) 88 bpm (08/27/23 8:22 AM) 74 bpm (08/27/23 6:59 AM) Heart Rate Monitored [60-100 bpm] 89 bpm (08/27/23 8:34 AM) 88 bpm (08/27/23 8:30 AM) 90 bpm (08/27/23 8:22 AM) Respiratory Rate [12-24 br/min] 28 br/min *HI* (08/27/23 8:34 AM) 32 br/min *HI* (08/27/23 8:30 AM) 36 br/min *HI* (08/27/23 8:22 AM) Blood Pressure [90-140/60-90 mmHg] 153/74mmHg *HI* (08/27/23 8:34 AM) 153/88mmHg *HI* (08/27/23 8:30 AM) 152/76mmHg *HI* (08/27/23 8:22 AM) Mean Arterial Pressure, Cuff [65-140 mmHg] 110 mmHg (08/27/23 8:30 AM) 101 mmHg (08/27/23 8:22 AM) 108 mmHg (08/27/23 6:59 AM) Mean Arterial Pressure Cuff 106 mmHg (08/27/23 8:30 AM) 99 mmHg (08/27/23 8:22 AM) 105 mmHg (08/27/23 6:59 AM) Blood Pressure Location Right arm (08/27/23 8:34 AM) Right arm (08/27/23 8:30 AM) Right arm (08/27/23 8:22 AM) Blood Pressure Method Automatic (08/27/23 8:34 AM) Automatic (08/27/23 8:30 AM) Automatic (08/27/23 8:22 AM) Weight 121 kg (08/25/23 11:22 AM) Weight Dosing 121.000 kg (08/25/23 11:22 AM) Height 152 cm (08/25/23 11:22 AM) Social History Social History Type Response Tobacco Current everyday tob acco user Tobacco Use:. 1/2 ppd per day. Sex Female Implantable Device List Procedure Provider Procedure Date Device Type Site Cataract Extraction with IOL Unknown 08/27/23 Unknown Eye R Device Identifier Serial Number Lot or Batch Number Manufacturing Date Expiration Date Distinct Identification Code MRI Safety Implantable Status Assigning Authority Unknown [id number] Unknown Unknown 05/19/26 Unknown Unknown Active Unknown Hospital Discharge Instructions Patient Education 08/23/2023 06:44:50 Tha Cabrera - Post Op Cataract Instructions (CUSTOM) Post- OpCataract Instructions These instructions are for the next 24 hours; you will be given new instructions at your post-op appointment Because there may be medication in your system for the next 24 hours, you may feel drowsy and your coordination may be affected. Therefore: ??? Do not drive or operate dangerous equipment for 24 hours. ??? Do not drink alcoholic beverages for 24 hours (not even beer). ??? Plan to go home and rest for the day. DO NOT bend your head below waist. DO NOT lift objects heavier than 15 pounds. DO NOT sleep on surgical side or stomach. Sleep only on the non-surgical side or your back. Keep the eye shield on your operative eye in place today and tonight except when applying eye drops. You may remove the shield completely before your 7am drop tomorrow, but bring the shield with you to your post-op appointment. You will continue to wear it only at nighttime for one week following surgery. Use the antibiotic/steroid eye drops provided; place 1 drop in operative eye at: 5pm 6pm 7pm 8pm and tomorrow at 7am Please bring your eye drops with you to your appointment tomorrow with Dr. Cabrera. To apply eye drops: ??? Wash your hands ??? Shake bottle vigorously ??? Administer drops by pressing the lower eyelid to the cheekbone and applying some downward pressure ??? DO NOT touch the eye with eyedropper or fingers ??? DO NOT touch, rub or apply pressure to the eyeball ??? The eye drops may cause a mild stinging or burning sensation If you use eye drops for glaucoma continue to use them as usual, even in the operative eye. It is normal for the eye to feel scratchy, light sensitive, and for you to have blurred or double vision for one or even several days after surgery. It is OK to watch television or read. Use acetaminophen (Tylenol) or ibuprofen (Motrin) according to package directions, as needed for any discomfort. You may notice eye redness and/or blood-tinged tears. This is normal and will subside. You may shower or bathe starting the day after surgery, but do not get water in the operative eye. A card with information about your lens implant has been given to you today to keep with your medical papers. Make a copy of the card to keep in your wallet or smart phone. If you are admitted to hospital for any reason, please let staff know you have a lens implant. You may resume all your regular medications unless directed otherwise. If you have any questions call the doctor at [facility]: [facility] Office: [place] Office: History and physical note * Event Display: History and Physical Patient Care team information Care Team Personnel Name: MARÍA TAPIA PA-C Position: No Access Member Role: Primary Care Physician Address: Address: [address] [place] [address]- Care Team Related Persons Name: CHELY ZAMORA
--- OUTSIDE RECORDS SUMMARY | 2023-11-10 17:34 | XMS_ITS | Continuity of Care Document ---
Author Organization [facility] Address [address] [place] [address] Care Team Providers Care Assembler Tubing Name Role Phone MARÍA TAPIA PA-C Primary Care Denny salomon Encounter [facility] NBR [id number] Date(s): 09/24/23 - 09/24/[address] [address] Encounter Diagnosis Nuclear age-related cataract, left eye(Discharge Diagnosis) - 09/23/23 Posterior subcapsular polar age-related cataract, left eye(Discharge Diagnosis) - 09/23/23 Discharge Disposition: Home f/u External Provider Attending Physician: Rajendra Cabrera MD Admitting Physician: Rajendra Cabrera MD Referring Physician: Rajendra Cabrera MD Allergies, Adverse Reactions, Alerts Substance Reaction Severity Status amoxicillin Rash Mild Active Adhesive Bandage Rash Mild Active sulfa drugs Unknown Active Zinc Unknown Active Assessment and Plan Extracted from: Title:Preoperative surgical H&P Author:Rajendra reyez MD Date:09/24/23 1.??Nuclear age-related cristo ract, left eye??H25.12 ??Assessment: Visually significant cataract of the left eye. ??Plan: Cataract extraction with lens implantation of the left eye. 2.??Posterior subcapsular polar age-related cataract, left eye??H25.042 ??Assessment: Visually significant cataract of the left eye. ??Plan:??Cataract extraction with lens implantation of the left eye. Orders: midazolam/ketamine/ondansetron, 1 tab, Sublingual, Tab, PREOP, First Dose: 09/24/23 7:00:00 EDT, Physician Stop, Routine prednisolone/moxifloxacin/nepafenac 1%-0.5%-0.1% ophthalmic suspension, 1 drops, Ophthalmic, Soln-Ophth, As Directed, First Dose: 09/24/23 6:12:00 EDT, Physician Stop, Routine tropicamide-phenylephrine 1%-2.5% ophthalmic solution, 1 drops, Ophthalmic, Soln-Ophth, Adult Education Professional, First Dose: 09/24/23 6:12:00 EDT, Physician Stop, Routine Obtain consent, 09/24/23 6:12:00 EDT, Constant Order, 09/24/23 6:12:00 EDT Vital Signs, 09/24/23 6:12:00 EDT, Stop date 09/24/23 6:12:00 EDT, Routine Functional Status 09/24/23 Family Member Travel History No recent t ravel Recent Travel History No recent travel Other exposure to Infectious Disease Non e 09/22/23 Living Situation Home with home healt h Medications Albuterol (Eqv-Ventolin HFA) 90 mcg/inh inhalation [...] 0 Refill(s) Start Date: 08/25/23 Status: Ordered ketamine/midazolam/ondansetron 25 mg-3 mg-2 mg sublingual tablet 1 tab, Sublingual, PREOP, 0 Refill(s) Start Date: 09/24/23 Status: Ordered lansoprazole 30 mg oral delayed [...] 0 Refill(s) Start Date: 08/25/23 Status: Ordered prednisolone/moxifloxacin/nepafenac 1%-0.5%-0.1% ophthalmic suspension 1 drops, Ophthalmic, As Directed, 0 Refill(s) Start Date: 09/24/23 Status: Ordered rosuvastatin 40 mg oral tablet [...] 1abdomen 23l o2 NC 3no cpap at [facility] Procedures Procedure Date Related Diagnosis Body Site Status Cataract Extraction with IOL (Left) 1 09/24/23 Completed Cataract Extraction with IOL (Right) 2 08/27/23 Completed Cardiac echo 3 03/02/19 Completed Bilateral tubal ligation Completed Cholecystectomy Completed Cold knife cone biopsy of cervix Completed Colonoscopy Completed CTR - carpal tunnel release Completed Hernia repair 4 Completed Tonsillectomy and adenoidectomy Completed 1auto-populated from documented surgical case 2auto-populated from documented surgical case 3mild LVH EF 55% mild aortic regurg 4x2 Vital Signs Most recent to oldest [Reference Range]: 1 2 3 Peripheral Pulse Rate [60-100 bpm] 79 bpm (09/24/23 10:38 AM) 83 bpm (09/24/23 10:32 AM) 77 bpm (09/24/23 10:22 AM) Blood Pressure [90-140/60-90 mmHg] 173/87mmHg *HI* (09/24/23 10:38 AM) 182/89mmHg *HI* (09/24/23 10:32 AM) 175/92mmHg *HI* (09/24/23 10:22 AM) Mean Arterial Pressure, Cuff [65-140 mmHg] 116 mmHg (09/24/23 10:38 AM) 120 mmHg (09/24/23 10:32 AM) 120 mmHg (09/24/23 10:22 AM) Mean Arterial Pressure Cuff 117 mmHg (09/24/23 10:32 AM) 113 mmHg (09/24/23 10:22 AM) Blood Pressure Location Left arm (09/24/23 10:32 AM) Left arm (09/24/23 10:22 AM) Blood Pressure Method Automatic (09/24/23 10:32 AM) Automatic (09/24/23 10:22 AM) Social History Social History Type Response Tobacco Current everyday tob acco user Tobacco Use:. 1/2 ppd per day. Sex Female Implantable Device List Procedure Provider Procedure Date Device Type Site Cataract Extraction with IOL Unknown 09/24/23 Unknown Eye L Device Identifier Serial Number Lot or Batch Number Manufacturing Date Expiration Date Distinct Identification Code MRI Safety Implantable Status Assigning Authority Unknown [id number] Unknown Unknown 06/25/26 Unknown Unknown Active Unknown Procedure Provider Procedure Date Device Type Site Cataract Extraction with IOL Unknown 08/27/23 Unknown Eye R Device Identifier Serial Number Lot or Batch Number Manufacturing Date Expiration Date Distinct Identification Code MRI Safety Implantable Status Assigning Authority Unknown [id number] Unknown Unknown 05/19/26 Unknown Unknown Active Unknown Hospital Discharge Instructions Patient Education 09/23/2023 08:39:04 Tha Cabrera - Post Op Cataract Instructions [...] have any questions call the doctor at [facility]: [facility] Office: [place] Office: 09/23/2023 08:39:04 [place] - Dr. Cabrera - Post Op Cataract Instructions (CUSTOM) [...] have any questions call the doctor at [facility]: [facility] Office: [place] Office: History and physical note * Rajendra Cabrera MD: PERFORM Event Display: History and Physical Authored Date: [id number] [place] :1970 Age:53 years Sex:Female Visit Date:09/24/2023 Primary Care Physician: MARÍA TAPIA PA-C Chief Complaint Progressive decreased vision, left eye History of Present Illness The patient is a 53-year-old lady with history of progressive decreased vision in both eyes, right eye worse than left.?? On examination she was noted to have??dense bilateral cataracts, right eye worse than left with??counting fingers vision??in the right eye, 20/100 in the left eye. ??She underwent cataract surgery??in the right eye on 08/27/2023.?? Postoperatively??she has regained excellent??uncorrected visual acuity in the right eye. ??She now presents for cataract surgery in the left eye. Review of Systems Constitutional:?No??fevers,?No??chills,?No??sweats Eye:?No??recent visual problems ENT:?No??ear pain,?No??nasal congestion,?No??sore throat Respiratory:?No??shortness of breath,?No??cough Cardiovascular:?No??Chest pain,?No??palpitations,?No??syncope Gastrointestinal:?Nonausea,?No??vomiting,?No??diarrhea Genitourinary:?No??hematuria Abdelrahman/Lymph:?No??bruising tendency,?No??swollen lymph glands Endocrine:?No??excessive thirst,??No??excessive hunger Musculoskeletal:??No??back pain,??No??neck pain,??No??joint pain,??No??muscle pain,??No??decreased range of motion Integumentary:?No??rash,?No??pruritus,?No??abrasions Neurologic: Alert & oriented X 4 Psychiatric:?No??anxiety,?No??depression Physical Exam Vitals & Measurements HR:??77??(Peripheral)?? BP:??186/90?? SpO2:??89%?? O2 Flow Rate:??3?? O2 Therapy:??Nasal cannula?? General: Alert and oriented, well nourished,?No??acute distress Eye: PERRL, EOMI,?Normal?conjunctivamost recent ocular examination reveals uncorrected visualacuity??of 20/20 in the right eye, 20/100 in the left eye. ??Extraocular Eric is normal.Intraocular pressure is??16 OD, 15 OS. ?? Slit-lamp examination is significant for a well-positioned PCIOL in the right eye.?? In the left eyethere is moderate nuclear sclerosis with mild posterior subcapsular cataract. ?? Funduscopic examination??reveals scatteredretinal hemorrhages consistent withdiabetic retinopathy.No macular edema is noted.Peripheral retina and vitreous appear normal. HENT: Normocephalic, clear tympanic membranes,?Normal? hearing, moist oral mucosa,?No??scleral icterus,?No??sinus tenderness Neck: Supple, non-tender,?No??carotid bruits,?No??JVD,?No??lymphadenopathy Lungs: Clear to auscultation and percussion,?Non-labored?? respiration Heart:?Normal? rate,?Regular??rhythm,?No??murmur,?No??gallop,?No??edema Breast:?No??lumps,?No??bumps,?No??scars,?Normal? nipples Abdomen: Soft, non-tender, non-distended,?Normal? bowel sounds,?No??masses Musculoskeletal:?Normal? range of motion and strength,?No??tenderness,?No??swelling Skin: Skin is warm, dry and pink,?No??rashes,?No??lesions Neurologic: Awake, alert and oriented X4, CN II-XII intact Psychiatric: Cooperative, appropriate mood and affect Assessment/Plan 1.??Nuclear age-related cataract, left eye??H25.12 ??Assessment: Visually significant cataract of the left eye. ??Plan: Cataract extraction with lens implantation of the left eye. 2.??Posterior subcapsular polar age-related cataract, left eye??H25.042 ??Assessment: Visually significant cataract of the left eye. ??Plan:??Cataract extraction with lensimplantation of the left eye. Orders: midazolam/ketamine/ondansetron, 1 tab, Sublingual, Tab, PREOP, First Dose: 09/24/23 7:00:00 EDT, Physician Stop, Routine prednisolone/moxifloxacin/nepafenac 1%-0.5%-0.1% ophthalmic suspension, 1 drops, Ophthalmic, Soln-Ophth, As Directed, First Dose: 09/24/23 6:12:00 EDT, Physician Stop, Routine tropicamide-phenylephrine 1%-2.5% ophthalmic solution, 1 drops, Ophthalmic, Soln-Ophth, Adult Education Professional, First Dose: 09/24/23 6:12:00 EDT, Physician Stop, Routine Obtain consent, 09/24/23 6:12:00 EDT, Constant Order, 09/24/23 6:12:00 EDT Vital Signs, 09/24/23 6:12:00 EDT, Stop date 09/24/23 6:12:00 EDT, Routine Problem List/Past Medical History Ongoing Chronic pain Chronic respiratory failure Chronic ulcer of skin COPD with asthma Dependence on continuous supplemental oxygen Diabetes mellitus GERD - Gastro-esophageal reflux disease Heart failure Hidradenitis suppurativa History of colonic polyp History of kidney stone History of pneumonia HLD - Hyperlipidemia HTN - Hypertension Hypomagnesemia Morbid obesity Nocturnal enuresis HELEN - Obstructive sleep apnea Peripheral edema Primary gonarthrosis, bilateral Tobacco user Historical No qualifying data Procedure/Surgical History ???Cataract Extraction with IOL (Right) (08/27/2023)???Cardiac echo (03/03/2019)???Bilateral tubal ligation???Cholecystectomy???Cold knife cone biopsy of cervix???Colonoscopy???CTR - carpal tunnel release???Hernia repair???Tonsillectomy and adenoidectomy Medications Inpatient midazolam/ketamine/ondansetron, 1 tab, Sublingual, PREOP prednisolone/moxifloxacin/nepafenac 1%-0.5%-0.1% ophthalmic suspension, 1 drops, Ophthalmic, As Directed tropicamide-phenylephrine 1%-2.5% ophthalmic solution, 1 drops, Ophthalmic, Adult Education Professional Home Albuterol (Eqv-Ventolin HFA) 90 mcg/inh inhalation aerosol, 2 puffs, Inhale, every 4 hr, PRN albuterol 2.5 mg/3 mL (0.083%) inhalation solution, 2.5 mg= 3 mL, Nebulized Inhalation, every 6 hr,PRN ARIPiprazole 10 mg oral tablet, 10 mg= 1 tab, Oral, Daily atenolol 50 mg oral tablet, 50 mg= 1 tab, Oral, Daily azithromycin 250 mg oral tablet, 250 mg= 1 tab, Oral, Daily BACLOFEN 10 MG TABLET, 1 tab, Oral, TID, PRN Basaglar KwikPen 100 units/mL subcutaneous solution, 12 units, Subcutaneous, every night at bedtime buPROPion 300 mg/24 hours (XL) oral tablet, extended release, 1.5 tabs, Oral, Daily busPIRone 7.5 mg oral tablet, 7.5 mg= 1 tab, Oral, BID, PRN desvenlafaxine (as succinate) 100 mg oral tablet, extended release, 100 mg= 1 tab, Oral, Daily Dibucaine 1% topical ointment, 1 betsey, Topical, QID, PRN fenofibrate 160 mg oral tablet, 160 mg= 1 tab, Oral, every night at bedtime fluticasone-salmeterol CFC free 230 mcg-21 mcg/inh inhalation aerosol, 2 puffs, Inhale, BID gabapentin 600 mg oral tablet, 600 mg= 1 tab, Oral, BID Incruse Ellipta 62.5 mcg/inh inhalation powder, 1 EA, Inhale, every 24 hr Januvia 100 mg oral tablet, 100 mg= 1 tab, Oral, Daily lansoprazole 30 mg oral delayed release capsule, 30 mg= 1 cap, Oral, Daily lisinopril 40 mg oral tablet, 40 mg= 1 tab, Oral, Daily magnesium oxide 400 mg (241.3 mg elemental magnesium) oral tablet, 400 mg= 1 tab, Oral, every evening methylphenidate 20 mg oral tablet, 20 mg= 1 tab, Oral, BID naloxone 4 mg/0.1 mL nasal spray, 1 sprays, Nostril-Both, Once NovoLOG FlexPen 100 units/mL injectable solution, 4 units, Subcutaneous, TID(AC) oxyCODONE 15 mg oral tablet, 15 mg= 1 tab, Oral, TID, PRN oxyCODONE 5 mg oral tablet, 5 mg= 1 tab, Oral, BID, PRN rosuvastatin 40 mg oral tablet, 40 mg= 1 tab, Oral, every night at bedtime torsemide 20 mg oral tablet, 20 mg= 1 tab, Oral, BID Allergies Adhesive Bandage??(Rash) amoxicillin??(Rash) Zinc sulfa drugs Social History Alcohol Current, 1-2 times per year Electronic Cigarette/Vaping Electronic Cigarette Use: Never. Substance Use Never Tobacco Current everyday tobacco user Tobacco Use:. 1/2 ppd per day. Electronically Signed on 09/24/2023 09:35 EDT Rajendra Cabrera MD Patient Care team information Care Team Personnel Name: REGINA ZAMAN, MARÍA SAEZ Position: No Access Member Role: Primary Care Physician Address: Address: [place] [address]- Care Team Related Persons Name: CHELY ZAMORA
--- OUTSIDE RECORDS SUMMARY | 2023-11-10 17:35 | XMS_ITS | Continuity of Care Document ---
Author [facility] Address [address] [place] [address] Care Team Providers Care Talent Management Specialist Name Role Phone NIKA SIDRA Primary Care Provider [facility] OTHER PERLA KATHLEEN Substitute Bus Driver LOUISE FUENTES Dentist JIAN MONK Organic Gardening Teacher/Site Surveyor ISIS DORMAN Psychiatrist [phone] [facility] [phone] [facility] [employer] PUBLICATIONS Community Health Worker [facility] PORT L[facility] ON AGING OTHER [facility] OTHER [facility] OTHER [facility] OTHER [phone] Assessment Encounter Date Assessment Date Assessment LastModified by Organization Details LastModified Time 11/10/2023 11/10/2023 Transfer to our office from [facility] multiple chronic issues The total time devoted to today's encounter, including both the qcqh-mk-opyh time with the patient and/or family/caregi phillip and sml-jggh-bz-f andres time I personally spent is 60 minutes. Not available 11/10/2023 10:31:59 Plan of Treatment Reminders Order Date Submit Date Provider Last Modified By Organization Details Last Modified Time Details Appointments Office Visit 60 2023 09:10A M Not available Not available Not available Lab drug of abuse panel, urine [address], [address] [place] [address], [address], 11/10/2023 10:58:46 methylphe nidate, QL, confirm, urine [address] [facility] (Registration ), [address] [place] [address] Dr, [place], [address], 11/10/2023 10:58:46 hemoglobi n A1C, fingersti ck [address], [address] [place] [address], [place], [address], 11/10/2023 10:58:46 Referral psychiatr ist referral 2023 024 mgaboriaul t1 Isis Dorman culinary director, [address] [facility], [place], [address], 11/10/2023 16:50:31 diabetic nutrition education referral [address], [address] [facility], [place], [address], 11/10/2023 16:51:14 Procedures None recorded. Surgeries None recorded. Imaging None recorded. Medication Orders Ozempic 0.25 mg or 0.5 mg (2 mg/1.5 mL) subcutane ous pen injector [address]23 [address] [place] [address] [facility] [id number], [address], [place], [address], 11/10/2023 10:31:10 Patient TargetsNo targets recorded. Patient Instructions Encounter Date Encounter Id Patient Instructions Last Modified By Organization Details Last Modified Time 11/10/2023 [id number] 1. wait 15 minutes prior to lighting that cigarette, every single time, it is ok to smoke but you must wait, my hope is that you will be smoking less and waiting longer to smoke 2. start one dose of Miralax nightly until moving your bowel most days. Oatmeal, any canned azul is excellent for constipation, fresh fruit. Fiber. If you develop diarrhea change your dose to every other day 3. Start Ozempic 0.25 mg once weekly x 4 4. Stop januvia 5. If you don't need the oxycodone don't take it 6. OK to decrease your gabapentin by half tab in the morning Not available 11/10/2023 10:50:14 Reason for Referral Breast Surgery Referral for Lump of subareolar area of right breast Referring Physician: [facility], Encounter Date: 03/26/2023 Referring Physician: María Nogueira [facility], Encounter Date: 07/15/2023 Referring Physician: María Nogueira [facility], Encounter Date: 09/22/2023 Diabetic Nutrition Education Referral for Type 2 diabetes mellitus without complication Referring Physician: Sidra Ruth [facility], Encounter Date: 11/10/2023 Psychiatrist Referral for Re current major depression Referring Physician: Sidra Ruth [facility], Encounter Date: 11/10/2023 Results Created Date Observation Date Name Description Value Unit Range Abnormal Flag Note LastModifiedBy Organization Detail LastModifiedTime 11/10/1911/10/2023 drug of abuse panel , urine Amphetamines (GYJ317): negati ve Not Available [facility] [address], [place], [address], 11/10/2023 09:17:31 11/10/19 24 11/10/2023 drug of abuse panel , urine Barbiturates (BAR): negati ve Not Available [facility] [address], [place], [address], 11/10/2023 09:17:31 11/10/19 24 11/10/2023 drug of abuse panel , urine Buprenorphin e (BUP): negati ve Not Available [facility] [address] [address], [place], [address], 11/10/2023 09:17:31 11/10/19 24 11/10/2023 drug of abuse panel , urine Benzodiazepi keith (BZO): negati ve Not Available [facility] [address], [place], [address], 11/10/2023 09:17:31 11/10/19 24 11/10/2023 drug of abuse panel , urine Cocaine (ERT349): negati ve Not Available [facility] [address] [address], [place], [address], 11/10/2023 09:17:31 11/10/19 24 11/10/2023 drug of abuse panel , urine Fentanyl (FYL): negati ve Not Available [facility] [address], [place], [address], 11/10/2023 09:17:31 11/10/19 24 11/10/2023 drug of abuse panel , urine Ecstacy (MDMA): negati ve Not Available [facility] [address], [place], [address], 11/10/2023 09:17:31 11/10/19 24 11/10/2023 drug of abuse panel , urine Methamphetam ine (MET): negati ve Not Available [facility] [address] [address], [place], [address], 11/10/2023 09:17:31 11/10/19 24 11/10/2023 drug of abuse panel , urine Methadone (MTD): negati ve Not Available [facility] [address] [address], [place], [address], 11/10/2023 09:17:31 11/10/19 24 11/10/2023 drug of abuse panel , urine Morphine (MOR): negati ve Not Available [facility] [address] [address], [place], [address], 11/10/2023 09:17:31 11/10/19 24 11/10/2023 drug of abuse panel , urine Oxycodone (OXY): positi ve Not Available [facility] [address] [address], [place], [address], 11/10/2023 09:17:31 11/10/19 24 11/10/2023 drug of abuse panel , urine Phencyclidin e (PCP): negati ve Not Available [facility] [address] [address], [place], [address], 11/10/2023 09:17:31 11/10/19 24 11/10/2023 drug of abuse panel , urine Marijuana (THC): positi ve Not Available [facility] [address] [address], [place], [address], 11/10/2023 09:17:31 11/10/19 24 11/10/2023 drug of abuse panel , urine Creatinine (Cr): Not Available [facility] [address] [address], [place], [address], 11/10/2023 09:17:31 11/10/19 24 11/10/2023 drug of abuse panel , urine Oxidants (Ox): Not Available [facility] [address] [address], [place], [address], 11/10/2023 09:17:31 11/10/19 24 11/10/2023 hemog lobin A1C, finge rstic k hemoglobin A1C 7.1 % <5.7 Not Available [facility] [address], [place], [address], 11/10/2023 09:16:16 11/03/19 24 08/18/2021 imagi ng/di agnos tic resul t No observ ation record ed. Not Available 11/02 14:35:05 11/03/19 24 08/18/2021 imagi ng/di agnos tic resul t No observ ation record ed. Not Available 11/02 14:35:36 11/03/19 24 11/04/2021 imagi ng/di agnos tic resul t No observ ation record ed. Not Available 11/02 14:35:37 11/03/19 24 10/26/2021 imagi ng/di agnos tic resul t No observ ation record ed. Not Available 11/02 14:35:44 11/03/19 24 01/14/2021 imagi ng/di agnos tic resul t No observ ation record ed. Not Available 11/02 14:35:52 11/03/19 24 02/27/2019 imagi ng/di agnos tic resul t No observ ation record ed. Not Available 11/02 14:35:53 11/03/19 24 11/15/2018 imagi ng/di agnos tic resul t No observ ation record ed. Not Available 11/02 14:35:54 11/03/19 24 11/15/2018 imagi ng/di agnos tic resul t No observ ation record ed. Not Available 11/02 14:35:55 11/03/19 24 11/15/2018 imagi ng/di agnos tic resul t No observ ation record ed. Not Available 11/02 14:35:56 11/03/19 24 04/27/2018 imagi ng/di agnos tic resul t No observ ation record ed. Not Available 11/02 14:35:57 11/03/19 24 11/04/2021 imagi ng/di agnos tic resul t No observ ation record ed. Not Available 11/02 14:37:26 11/03/19 24 08/18/2021 imagi ng/di agnos tic resul t No observ ation record ed. Not Available 11/02 14:39:53 11/03/19 24 11/04/2021 imagi ng/di agnos tic resul t No observ ation record ed. Not Available 11/02 14:39:54 11/03/19 24 01/14/2021 imagi ng/di agnos tic resul t No observ ation record ed. Not Available 11/02 14:39:54 11/03/19 24 04/27/2018 imagi ng/di agnos tic resul t No observ ation record ed. Not Available 11/02 14:39:55 11/03/19 24 03/01/2019 imagi ng/di agnos tic resul t No observ ation record ed. Not Available 11/02 14:39:56 11/03/19 24 11/16/2018 imagi ng/di agnos tic resul t No observ ation record ed. Not Available 11/02 14:39:57 11/03/19 24 11/16/2018 imagi ng/di agnos tic resul t No observ ation record ed. Not Available 11/02 14:39:58 11/03/19 24 06/13/2022 , jasson x, jeaneth slorrie No observ ation record ed. Not Available 11/02 14:40:06 11/03/19 24 05/19/2018 kim LINARES No observ ation record ed. Not Available 11/02 14:40:19 09/16/01/24/2022 XR, shoul vanna No observ ation record ed. Not Available 11/02 14:40:19 11/03/19 24 10/27/2019 imagi ng/di agnos tic resul t No observ ation record ed. Not Available 11/02 14:40:28 11/03/19 24 12/14/2020 imagi ng/di agnos tic resul t No observ ation record ed. Not Available 11/02 14:40:29 11/03/19 24 11/16/2018 imagi ng/di agnos tic resul t No observ ation record ed. Not Available 11/02 14:40:30 11/03/19 24 06/13/2022 imagi ng/di agnos tic resul t No observ ation record ed. Not Available 11/02 14:40:31 11/03/19 24 04/27/2018 imagi ng/di agnos tic resul t No observ ation record ed. Not Available 11/02 14:41:31 11/03/19 24 03/03/2019 imagi ng/di agnos tic resul t No observ ation record ed. Not Available 11/02 14:42:12 11/03/19 24 01/14/2021 imagi ng/di agnos tic resul t No observ ation record ed. Not Available 11/02 14:42:57 Result Notes None recorded. Problems Name Problem SNOMED Code Status Onset Date Resolution Date Notes Provider Name and Address Organization Details Recorded Time Obstruct leena sleep apnea syndrome 45537740 Active 200711/14/19 20 - Comments only - María Nogueira PA-C - Patient continue s to demonstr ate poor toleranc e to CPAP. Declines to return to [facility] to assess as candidat e for BiPAP. Instead, Rosibel expresse s intentio n to try wedge pillow for sleep position ing. Problem Code: G47.33; Problem Code Type: ICD-10; Not Available [facility] 04[facility] Essentia l hyperten yoel 77249459 Active 200309/10/19 23 - Comments only - María Nogueira PA-C - - HTN Suggeste d patient dose TORSEMID E @ 40mg QD x a few days to address tense LE and abdomina l swelling , then resume at regular 20mg QD schedule . She will otherwis e continue on LISINOPR IL 40mg QD and ATENOLOL 50mg QD as RXd. Problem Code: I10; Problem Code Type: ICD-10; Not Available [facility] 3 04:07:11 Severe obesity 09289709544 104 Active 200309/17/19 18 - Comments only - María Nogueira PA-C - BMI 56. Most recent ortho consult highly motivati ng towards patient ongoing weight loss efforts. Problem Code: E66.01; Problem Code Type: ICD-10; Not Available [facility] 3 04:07:11 Uncompli cated moderate persiste nt asthma 552435980 Active 2007 Problem Code: J45.40; Problem Code Type: ICD-10; Not Available [facility] 3 04:07:11 Hyperlip idemia 58640238 Active 200308/06/19 23 - Comments only - María Nogueira PA-C - - HYPERLIP IDEMIA Maintain ed on CRESTOR 40mg QD and TRICOR 160mg QD Problem Code: E78.5; Problem Code Type: ICD-10; Not Available [facility] 3 04:07:11 Tobacco dependen ce caused by cigarett es 59443284367 594005 Active 200601/22/20 16 - Comments only - María Nogueira PA-C - Although patient is not ready to develop formal plan for cessatio n today, she does agree to work towards reducing smoking quantity via subsitut ing with electron ic annita e as able. Problem Code: F17.210; Problem Code Type: ICD-10; Not Available [facility] 3 04:07:11 Recurren t major depressi on 50303326 Active 200710/30/19 22 - Comments only - María Nogueira PA-C - - DEPRESSI ON To continue on WELLBUTR IN XL 200mg QD, ABILIFY 10mg QD, PRISTIQ 100mg QD, RITALIN 20mg BID, and BUSPAR 7.5mg PRN acute anxiety Problem Code: F33.9; Problem Code Type: ICD-10; Not Available [facility] 3 04:07:11 Pain of left hip joint 79576780836 9100 Active 201409/20/19 15 - Comments only - María Nogueira PA-C - To titrate NEURONTI N to 600mg BID. Otherwis e to continue on routinel y RXd PERCOCET 10/325mg QID PRN - RX RF provided today (#112 as 28d supply). Problem Code: M25.552; Problem Code Type: ICD-10; Not Available [facility] 3 04:07:12 Osteoart hritis of knee 149687800 Active 201401/10/20 21 - Comments only - María Nogueira PA-C - - CHRONIC PAIN (KNEES, BACK) To continue on RFd PERCOCET 10/325mg QID PRN, NEURONTI N 900mg QHS, and BACLOFEN 10mg BID PRN. Problem Code: M17.9; Problem Code Type: ICD-10; Not Available [facility] 3 04:07:12 Low back pain 666065327 Active 201404/02/19 23 - Comments only - María Nogueira PA-C - - CHRONIC PAIN (KNEES, BACK) To continue on RFd PERCOCET 10/325mg QID PRN, NEURONTI N 900mg QHS, and BACLOFEN 10mg BID PRN Problem Code: M54.5; Problem Code Type: ICD-10; Not Available [facility] 3 04:07:12 Type 2 diabetes mellitus without complica tion 969927361 Active 201407/31/19 22 - Comments only - María Nogueira PA-C - - IDDM2 Maintain ed on JANUVIA 100mg QD and LEVEMIR 10U QD. To continue with same and suppleme nt with NOVOLOG via mealtime sliding scale PRN as RXd. Problem Code: E11.9; Problem Code Type: ICD-10; Not Available [facility] 3 04:07:12 Cellulit is of left lower limb [id number] 310521 Completed 201510/24/2015 10/10/19 16 - Comments only - María Nogueira PA-C - Will treat with LEVAQUIN 500mg QD x 7d. Problem Code: L03.116; Problem Code Type: ICD-10; Not Available [facility] 3 04:07:12 Nocturna l enuresis 0344206 Active 201606/18/19 17 - Comments only - María Nogueira PA-C - As discusse d with previous visits, will reconsid er for trial of alternat leena to OXYBUTYN IN +/- urology refer once acute GI sxs have been appropri ately sylvie reddy. Problem Code: N39.44; Problem Code Type: ICD-10; Not Available [facility] 3 04:07:12 Stomatit is 30033844 Completed 201604/03/2016 03/20/19 17 - Comments only - María Nogueira PA-C - Will treat with DIFLUCAN 100mg QD x 14d. Given recurren t nature of patient' s sxs, to consider initiati on of OTC PROBIOTI C as preventi on. Not Available [facility] 3 04:07:12 Headache 60146651 Completed 201605/03/2016 04/22/19 17 - Comments only - María Nogueira PA-C - ?tension /cervica l. Although we had discusskevin reddy indicati on for refer back to [facility] for PT/chiro practic treatmen t interven tions, patient would like to hold off on this for now. Problem Code: R51; Problem Code Type: ICD-10; Not Available [facility] 3 04:07:12 Chronic ulcer of buttock 060505128 Completed 201708/20/2017 08/07/19 18 - Comments only - María Nogueira PA-C - Given patient hx, will cover with RXd DOXYCYCL INE 100mg BID x 10d. Addition ally, in light of propensi ty for candidia sis, will cover prophyla ctically with DIFLUCAN 150mg on day #3 of ABX and again upon completi on of course. Problem Code: L98.419; Problem Code Type: ICD-10; Not Available [facility] 3 04:07:13 Adult health examinat ion Active 201802/14/20 21 - Comments only - María Nogueira PA-C - COVID (Moderna ) booster administ ered today. Problem Code: Z00.00; Problem Code Type: ICD-10; Not Available [facility] 3 04:07:13 Acute exacerba tion of chronic obstruct leena pulmonar y disease 073152609 Completed 201805/25/2018 05/12/19 19 - Comments only - María Nogueira PA-C - Rosibel appears to be recoveri ng reasonab ly well s/p influenz a. Having complete d ABX and PO steroid course as RXd upon hospital d/c, Rosibel agrees to retrial SPIRIVA (RESPIMA T formula due to historic ally did not tolerate powder) QD. Addition ally, RF RX FLOVENT provided , which Rosibel will use at onset of acute illness. She will otherwis e continue to suppleme nt with VENTOLIN MDI vs. ALBUTERO L via nebulize r PRN as rescue. May consider to arrange for nocturna l oximetry testing (decline s retrial CPAP and/or Sleep Center refer) to determin e candidac y for nocturna l O2 with future visits. Problem Code: J44.1; Problem Code Type: ICD-10; Not Available [facility] 3 04:07:13 Leukocyt osis 655351094 Completed 201805/25/2018 05/12/19 19 - Comments only - María Nogueira PA-C - Will repeat CBC with next set of labs as monitori ng Problem Code: D72.829; Problem Code Type: ICD-10; Not Available [facility] 3 04:07:13 Gastroes ophageal reflux disease without esophagi tis 453909196 Active 201806/05/19 23 - Comments only - María Nogueira PA-C - Patient encourag ed to suppleme nt PROTONIX with OTC TUMS PRN to address throat and laryngea l irritati on suspecte d as sequela of PO steroid course. Will consider for ENT refer for laryngos copy if sxs ongoing (smoker) . Problem Code: K21.9; Problem Code Type: ICD-10; Not Available [facility] 3 04:07:13 Chronic obstruct leena pulmonar y disease 58970131 Active 201808/06/19 23 - Comments only - María Nogueira PA-C - - CHRONIC RESPIRAT ORY FAILURE, O2 DEPENDEN T COPD, SMOKER Followed by [facility] pulmonol ogy. To continue on PREDNISO NE taper as RXd by specialt y service provider for manageme nt of acute exacerba tion. To continue on ADVAIR HFA, INCRUSE ELLIPTA, ZITHROMA X, and continuo us O2 via nasal cannula and suppleme nt with VENTOLIN HFA vs DUONEB via nebulize r PRN as rescue. Problem Code: J44.9; Problem Code Type: ICD-10; Not Available [facility] 3 04:07:13 Hypoxemi a 325956129 Active 201801/09/20 21 - Deterior ated - Maren Davies on BALLASTER - Problem Code: R09.02; Problem Code Type: ICD-10; Not Available [facility] 3 04:07:13 Headache 37884763 Active 201807/18/19 19 - Comments only - María Nogueira PA-C - Given potentia l for acute sxs triggere d by seasonal allergy flare, will trial RXd FLONASE 2 sprays to each nostril QD. Otherwis e, Rosibel may suppleme nt sparingl y with OTC TYLENOL (avoid dosing within 4hrs administ ration of PERCOCET ). Declined offered treatmen t with IM TORADOL today. Problem Code: R51; Problem Code Type: ICD-10; Not Available [facility] 3 04:07:14 Urinary tract infectio us disease 51851125 Completed 201808/28/2018 Problem Code: N39.0; Problem Code Type: ICD-10; Not Available [facility] 3 04:07:14 Hypomagn esemia 075344676 Active 201811/28/19 22 - Comments only - María Nogueira PA-C - - HYPOMAGN ESEMIA Repeat magnesiu m level collecte d today as monitori ng on MAG OXIDE 400mg QD Problem Code: E83.42; Problem Code Type: ICD-10; Not Available [facility] 3 04:07:14 Chronic pain 56082228 Active 201806/05/19 23 - Comments only - María Nogueira PA-C - Patient encourag ed to reach out to ortho provider ([facility]) to discuss next steps (?MRI) in manageme nt of RIGHT SHOULDER pain. She will otherwis e continue on RFd PERCOCET 10/325mg QID PRN, NEURONTI N 900mg QHS, and BACLOFEN 10mg BId PRN as RXd. Problem Code: G89.29; Problem Code Type: ICD-10; Not Available [facility] 3 04:07:14 Disorder of skin and/or subcutan eous tissue 80994542 Completed 201811/23/2018 11/10/19 19 - Comments only - María Nogueira PA-C - Patient reassure d no evidence of abscess via today's PX. Suggeste d patient to keep area as clean and dry as possible and consider OTC DESITIN to promote skin healing. Problem Code: L98.9; Problem Code Type: ICD-10; Not Available [facility] 3 04:07:14 Acute kidney injury 49049984 Completed 201812/08/2018 11/25/19 19 - Comments only - María Nogueira PA-C - Repeat CMP collecte d today as monitori ng. Problem Code: N17.9; Problem Code Type: ICD-10; Not Available [facility] 3 04:07:14 Septic shock 84661095 Completed 201812/08/2018 11/25/19 19 - Comments only - María Nogueira PA-C - Will consider to recollec t urine for UCX to confirm cure once Rosibel has complete d full course of KEFLEX. Problem Code: R65.21; Problem Code Type: ICD-10; Not Available [facility] 3 04:07:15 Acute kidney injury 55878150 Active 2018 Problem Code: N17.9; Problem Code Type: ICD-10; Not Available [facility] 3 04:07:15 History of urinary disease 490101624 Completed 201801/01/2019 12/19/19 19 - Comments only - María Nogueira PA-C - Repeat urine for UCX collecte d today to confirm cure s/p comletio n of ABX treatmen t Problem Code: Z87.448; Problem Code Type: ICD-10; Not Available [facility] 3 04:07:15 Stomatit is 10303796 Completed 201903/22/2019 03/08/19 20 - Comments only - María Nogueira PA-C - Will treat with 14d course of DIFLUCAN 100mg QD. Not Available [facility] 3 04:07:15 Pain of left wrist 99871307338 9102 Completed 201904/20/2019 04/06/19 20 - Comments only - María Nogueira PA-C - Patient declines offer to schedule for x-ray to definate ly r/o for bony disrupti on. Will continue to monitor area and call if no better over the next 1-2 weeks. Problem Code: M25.532; Problem Code Type: ICD-10; Not Available [facility] 3 04:07:15 Edema 532126296 Completed 201907/27/2019 07/13/19 20 - Comments only - María Nogueira PA-C - Given stabiliz ation of sxs, Rosibel was encourag ed to trial reductio n of LASIX to 20mg alternat ing with 40mg QD. If she proves intolera nt to this, OK to resume 40mg QD dosing schedule , however, we should then consider repeat BMP prior to next regularl y schedule d PCP f/u visit 08/09/19. Problem Code: R60.9; Problem Code Type: ICD-10; Not Available [facility] 3 04:07:15 Erysipel as 88490310 Completed 201909/20/2019 09/08/19 20 - Comments only - María Nogueira PA-C - To continue on KEFLEX 500mg QID. Rosibel agrees to contact provider with update upon completi on of current ABX course to ensure complete healing. Certainl y she understa nds to reach out sooner with problems or concerns for worsenin g in the interim. Problem Code: A46; Problem Code Type: ICD-10; Not Available [facility] 3 04:07:16 Ganglion cyst of left wrist 64184629406 9100 Completed 202005/22/2020 05/09/19 21 - Comments only - María Nogueira PA-C - Given lesion not currentl y causing pain or limiting joint ROMing, no indicati on for surgical treatmen t interven tion by ortho. Will continue to monitor Problem Code: M67.432; Problem Code Type: ICD-10; Not Available [facility] 3 04:07:16 Periapic al abscess 937149444 Completed 202007/19/2020 07/06/19 21 - Comments only - María Nogueira PA-C - Patient schedule d for complete extracti on early next month. In the interest of avoiding need for RSing, Rosibel was provided with on-hold ABX RX (CLINDAM YCIN 300mg QID x 10d), which she may fill if she should develop signs of infectio n prior to procedur e. Problem Code: K04.7; Problem Code Type: ICD-10; Not Available [facility] 3 04:07:16 Pain in finger of right hand [id number] 9109 Completed 202012/18/2020 12/05/19 21 - Comments only - María Nogueira PA-C - Patient agrees to trial OTC thumb spica splint as first line. 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 Problem Code: M79.644; Problem Code Type: ICD-10; Not Available [facility] 3 04:07:16 Exposure to communic able disease Completed 202012/18/2020 12/05/19 21 - Comments only - María Nogueira PA-C - Rosibel understa nds that she is to seek asymptom atic testing (3-5d s/p exposure ) via [facility] site at next availabl e. As she is a candidat e for MAB (DM2, HTN, obesity, O2 dependen t COPD), she will alert PCP immediat geetha if she should develop sxs to arrange for PCR testing. Problem Code: Z20.828; Problem Code Type: ICD-10; Not Available [facility] 3 04:07:16 Kidney stone 62410467 Active 01/10/20 21 - Comments only - María Nogueira PA-C - Symptoma tically stable. Will consider urology refer if sxs recur. Problem Code: N20.0; Problem Code Type: ICD-10; Not Available [facility] 3 04:07:17 Acute vaginiti s 36888625 Completed 202002/09/2021 01/27/20 21 - Comments only - María Nogueira PA-C - As per patient request, will treat with RXd DIFLUCAN 150mg x 1 (OK to repeat in 3d if indicate d). Problem Code: N76.0; Problem Code Type: ICD-10; Not Available [facility] 3 04:07:17 Cellulit is 029162427 Completed 202002/27/2021 02/14/20 21 - Comments only - María Nogueira PA-C - Will treat with RXd DOXYCYCL INE 100mg BID x 14d - RX DIFLUCAN 150mg x 1 with repeat in 3d if indicate d provided due to patient h/o vaginal candidia sis followin g ABX. Rosibel agrees to monitor area closely (borders marked) and call with any signs of progress ion, at which point we could consider IM ROCEPHIN . Problem Code: L03.90; Problem Code Type: ICD-10; Not Available [facility] 3 04:07:17 Dyspnea 902853573 Active 202106/06/19 22 - Comments only - María Nogueira PA-C - Patient declines offered refer for pulmonol ogy consult. Will increase O2 settings to 2.5L/min . Addition eleanor, will ask that FANNY reach out to medical supply agency to request portable concentr ator unit. 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 Problem Code: L98.9; Problem Code Type: ICD-10; Not Available [facility] 3 04:07:17 Screenin g mammogra phy Active 2021 Problem Code: Z12.31; Problem Code Type: ICD-10; Not Available [facility] 3 04:07:17 Heart failure 48567369 Active 202111/28/19 22 - Comments only - María Nogueira PA-C - - CHF, HTN Patient to f/u with [facility] cardiolo gy as schedule d 12/17/21 . In the interim, to continue on LISINOPR IL 40mg QD, ATENOLOL 50mg QD, and TORSEMID E 20mg QD as RXD Problem Code: I50.9; Problem Code Type: ICD-10; Not Available [facility] 3 04:07:18 Acute on chronic hypercap millie respirat ory failure [id number] 06 Active 202105/07/19 23 - Comments only - María Nogueira PA-C - Followed by [facility] Pulmonol ogy. To continue on ADVAIR HFA, INCRUSE ELLIPTA, ZITHROMA X, and continuo us O2 via nasal cannula and suppleme nt with VENTOLIN HFA vs DUONEB via nebulize r PRN as rescue. Problem Code: J96.22; Problem Code Type: ICD-10; Not Available [facility] 3 04:07:18 Acute exacerba tion of chronic obstruct leena pulmonar y disease 916995395 Completed 202110/24/2021 Problem Code: J44.1; Problem Code Type: ICD-10; Not Available [facility] 3 04:07:18 Blood in urine 55955323 Active 2021 Problem Code: R31.9; Problem Code Type: ICD-10; Not Available [facility] 3 04:07:18 Pain of right knee joint 09784783938 4100 Active 2021 Problem Code: M25.561; Problem Code Type: ICD-10; Not Available [facility] 3 04:07:18 Hidraden itis suppurat brian 40179615 Completed 202112/11/2021 11/28/19 22 - Comments only - María Nogueira PA-C - Will cover with RXd BACTRIM DS BID x 10d, however, will maintain low index to refer to surgery for I&D if sxs prove ongoing. Problem Code: L73.2; Problem Code Type: ICD-10; Florecita aburto, [facility] 4 12:58:29 Acute stress disorder 63267752 Completed 202112/18/2021 Problem Code: F43.0; Problem Code Type: ICD-10; Not Available [facility] 3 04:07:19 Pain of right shoulder joint 35503986622 201322 Active 2021 Problem Code: M25.511; Problem Code Type: ICD-10; Not Available [facility] 3 04:07:19 Hidraden itis suppurat brian 30107541 Active 2021 Problem Code: L73.2; Problem Code Type: ICD-10; Florecita aburto, [facility] 4 12:58:29 Abdomina l distensi on, gaseous 188527493 Completed 202204/16/2022 04/02/19 23 - Comments only - María Nogueira PA-C - Assuming today's collecte d laborato ry testing [place], patient agrees to use MIRALAX on a more regular basis to r/o chronic constipa tion issues as contribu ting to sxs. If ongoing, or certainl y worsenin g, despite this interven tion, will maintain low index for scheduli ng for repeat CT imaging. Problem Code: R14.0; Problem Code Type: ICD-10; Not Available [facility] 3 04:07:20 Disorder of eye region 953634571 Completed 202204/16/2022 04/02/19 23 - Comments only - María Nogueira PA-C - Given infectio us exposure , will cover with RXd ERYTHROM YCIN OPTHALMI C OINTMENT TID until sxs resolve. Problem Code: H57.89; Problem Code Type: ICD-10; Not Available [facility] 3 04:07:20 Candidia sis 95442710 Completed 202204/16/2022 04/02/19 23 - Comments only - María Nogueira PA-C - Although timing of sxs followin g initiati on of daily ABX therapy as RXd by [facility] pulmonol ogy as fueling to persiste nt candidal infectio ns, as respirat ory sxs have responde d well to this interven tion, will ask that Rosibel continue with same. As alternat leena, will trial d/c from [facility] Hennessy, in hopes that this might have comparab le effect. For manageme nt of acute sxs, will treat with RXd DIFLUCAN 150mg x 1 and repeat in 3d if indicate d. Problem Code: B37.9; Problem Code Type: ICD-10; Not Available [facility] 3 04:07:20 Otalgia of right ear 9008533304 Completed 202205/17/2022 Problem Code: H92.01; Problem Code Type: ICD-10; Not Available [facility] 3 04:07:20 Edema 001023507 Active 202206/29/19 23 - Comments only - María Nogueira PA-C - WALLACE Willis LE wrapped with COFLEX dressing in office today. Will arrange for [facility] to assess patient on M 07/01/22 to determin e indicati on for replacem ent. As PX today does not support ongoing cellulit is, will forgo further ABX treatmen t and focus efforts towards reducing peripher al edema. Specific ally, Rosibel agrees to keep legs elevated at rest and increase TORSEMID E to 40mg QAM to address swelling . Problem Code: R60.9; Problem Code Type: ICD-10; Not Available [facility] 3 04:07:21 Nodule on toe 917054471 Active 2022 Not Available [facility] 3 04:07:21 Intertri go 60972378 Completed 202209/02/2022 Problem Code: L30.4; Problem Code Type: ICD-10; Not Available [facility] 3 04:07:21 Candidia sis of skin 02032077 Active 2022 Problem Code: B37.2; Problem Code Type: ICD-10; Not Available [facility] 3 04:07:21 Fever 625882622 Completed 201604/21/2016 Problem Code: R50.9; Problem Code Type: ICD-10; Not Available [facility] 3 04:07:21 Type 2 diabetes mellitus without complica tion 478850970 Completed 201203/01/2022 Problem Code: E11.9; Problem Code Type: ICD-10; Not Available [facility] 3 04:07:22 Obesity 647108114 Completed 200707/29/2014 Not Available [facility] 3 04:07:22 Urinary incontin ence 317301504 Completed 200303/20/2016 Problem Code: R32; Problem Code Type: ICD-10; Not Available [facility] 3 04:07:22 Abscess of limb 203154300 Completed 201406/26/2015 Problem Code: L02.419; Problem Code Type: ICD-10; Not Available [facility] 3 04:07:22 Type 1 diabetes mellitus without complica tion 120532006 Completed 201411/13/2022 12/13/19 18 - Comments only - María Nogueira PA-C - Fingerst ick readings suggest good control on GLUCOPHA GE XR 500mg QD BID and GLUCOTRO L XL 2.5mg QD. Will be due for repeat HBA1C next month as monitori ng. 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 982600051 Completed 200911/13/2022 Problem Code: 041.12; Problem Code Type: ICD-9; Not Available [facility] 3 04:07:23 Chronic obstruct leena pulmonar y disease 52366244 Completed 200301/08/2021 Problem Code: J44.9; Problem Code Type: ICD-10; Not Available [facility] 3 04:07:24 Cellulit is 747854139 Completed 201406/26/2015 Problem Code: L03.90; Problem Code Type: ICD-10; Not Available [facility] 3 04:07:24 Right upper quadrant pain 313114902 Completed 201601/08/2021 Problem Code: R10.11; Problem Code Type: ICD-10; Not Available [facility] 3 04:07:24 Generali zed abdomina l pain 595188705 Completed 202011/13/2022 Problem Code: R10.84; Problem Code Type: ICD-10; Not Available [facility] 3 04:07:25 Recurren t major depressi ve episodes 523268488 Completed 200711/13/2022 Problem Code: 296.30; Problem Code Type: ICD-9; Not Available [facility] 3 04:07:25 Asthma 761348674 Completed 200711/13/2022 Problem Code: 493.90; Problem Code Type: ICD-9; Not Available [facility] 3 04:07:25 Pure hypercho lesterol emia 787597480 Completed 200711/13/2022 Not Available [facility] 3 04:07:26 Acute upper respirat ory infectio n 36586261 Completed 201506/26/2015 Problem Code: J06.9; Problem Code Type: ICD-10; Not Available [facility] 3 04:07:26 Depressi ve disorder 64490833 Completed 200311/13/2022 Problem Code: 311; Problem Code Type: ICD-9; ESTEBAN MERA, [facility] 3 13:24:46 Adjustme nt disorder 00844558 Completed 201701/16/2018 Problem Code: F43.20; Problem Code Type: ICD-10; [address], [place], [address] , [facility] 4 10:27:33 Pelvic and perineal pain 645468433 Completed 202001/08/2021 Problem Code: R10.2; Problem Code Type: ICD-10; Not Available [facility] 3 04:07:27 History of disorder of digestiv e system 292851157 Completed 202003/01/2022 Problem Code: Z87.19; Problem Code Type: ICD-10; Not Available [facility] 3 04:07:28 Streptoc occal sore throat 53532535 Completed 201604/22/2016 Problem Code: J02.0; Problem Code Type: ICD-10; Not Available [facility] 3 04:07:28 Uncompli cated asthma 452113843 Completed 200711/13/2022 Problem Code: J45.909; Problem Code Type: ICD-10; Not Available [facility] 3 04:07:28 Localize d superfic ial swelling of skin 096756864 Completed 200306/26/2015 Problem Code: 782.2; Problem Code Type: ICD-9; Not Available [facility] 3 04:07:29 Heart failure 79809988 Completed 201903/01/2022 Problem Code: I50.9; Problem Code Type: ICD-10; Not Available [facility] 3 04:07:29 Traumati c or non-trau matic injury 441585580 Completed 201510/10/2015 Problem Code: T14.90; Problem Code Type: ICD-10; Not Available [facility] 3 04:07:29 Tobacco dependen ce syndrome 51199507 Completed 200611/13/2022 Problem Code: 305.1; Problem Code Type: ICD-9; Not Available [facility] 3 04:07:30 Nausea and vomiting 86854772 Completed 201506/30/2017 Problem Code: R11.2; Problem Code Type: ICD-10; Not Available [facility] 3 04:07:30 Cholelit hiasis without obstruct ion 83221259 Completed 201512/25/2015 Problem Code: K80.20; Problem Code Type: ICD-10; Not Available [facility] 3 04:07:30 Biceps tendinit is 362451845 Completed 201512/25/2015 Problem Code: M75.21; Problem Code Type: ICD-10; Not Available [facility] 3 04:07:31 Cellulit is and abscess of face 182434445 Completed 200311/13/2022 Problem Code: 682.0; Problem Code Type: ICD-9; Not Available [facility] 3 04:07:31 Morbid obesity 423768904 Completed 200311/13/2022 Not Available [facility] 3 04:07:31 Major depressi on, single episode 68260917 Completed 200303/01/2022 Problem Code: F32.9; Problem Code Type: ICD-10; Not Available [facility] 3 04:07:32 Candidia sis of mouth 91840146 Completed 201410/10/[address], [place], [address] , [facility] 4 12:18:55 Hypergly cemia due to type 2 diabetes mellitus 13843891932 9109 Completed 201411/13/2022 07/31/19 16 - Comments only - María Nogueira PA-C - Today's HBA1C WNLs on LANTUS 38U BID, GLUCOPHA GE XR 1g BID, and mealtime NOVOLOG via sliding scale. To continue with same. Problem Code: E11.65; Problem Code Type: ICD-10; Not Available [facility] 3 04:07:33 Stomatit is 32206824 Completed 201606/30/2017 Not Available [facility] 3 04:07:33 Type 2 diabetes mellitus 01366914 Active 2022 CHANTAL LÓPEZ MA [facility], [facility] 3 13:23:46 Depressi ve disorder 30854004 Active 2022 Problem Code: 311; Problem Code Type: ICD-9; CHANTAL LÓPEZ MA [facility], [facility] 3 13:24:46 Chronic respirat ory failure 07751609 Active 2022 CHANTAL LÓPEZ MA null, [facility] 3 13:25:36 COVID-19 782001355 Active 2022 ELE AGUIRRE [facility], [facility] 3 10:17:55 Chronic ulcer of skin 27491432 Active 2022 Problem Code: L98.499; Problem Code Type: ICD-10; Not Available [facility] 4 05:35:31 Lump of subareol ar area of right breast 62309604299 029078 Active [address], [facility] [address] , [facility] 4 12:18:55 Candidia sis of mouth 87754209 Active 2023 RACHEL AYALA PA-C [address], [facility] [address] , [facility] 4 12:18:55 Adjustme nt disorder 44477682 Active 2023 Problem Code: F43.20; Problem Code Type: ICD-10; [address], [facility] [address] , [facility] 4 10:27:33 Notes:*Problem Name: Abdomin al swelling *Problem Status: active *Comments: *Problem Code: R19.00 *Problem Code Type: ICD-10 *Note Date: 06/13/2022 *Problem Name: Asthma/copd *Problem Status: inactive *Comments: *Problem Code: 491.21 *Problem Code Type: ICD-9 *Note Date: 07/05/2003 Problem Notes None recorded. Medical Equipment None Reported. Allergies Allergen ID Allergen Name Allergen Category Reaction Reaction Severity Criticality Documentation Date Start Date Code Code System Note Provider Name and Address Organization Details Recorded Time 82796 amoxicill in medicatio n hives mild low 03/01/2023 723 RxNorm rash and heada bam Roxanne Muniz RN [facility], [facility] 4 09:40:00 72354 Substance with sulfonami de structure and antibacte rial mechanism of action (substanc e) medicatio n Not available Not available unabletoasse ss 04/07/2023 09968 8003 SNOMED MARÍA NOGUEIRA PA-C [address], [facility] [phone], [facility] 4 10:07:58 Medications Name Sig Start Date Stop Date Status Note LastModified by Organization Details LastModified Time Prescript ion - Renewal active fenofibr ate 160 mg tablet Not Available Not Available Not Available Prescript ion - New active Not Available Not Available No t Available Prescript ion - Prior Authoriza tion Request 04/29 completed Not Available Not Available Not Available celecoxib 200 mg capsule TAKE 1 CAPSULE BY MOUTH ONCE DAILY (TO REPLACE MELOXICA M) 01/22 completed Not Available Not Available Not Available cyclobenz aprine 10 mg tablet 1 tab twice daily as needed for muscle pain/spa sm 01/02 completed Not Available Not Available Not Available Miralax 17 gram/dose oral powder Take 17 gram by mouth once a day as needed 2018 active Not Available Not Available Not Avai lable clotrimaz ole 10 mg mary TAKE ONE TABLET BY MOUTH FIVES TIMES A DAY FOR 10 DAYS 11/09 completed Not Available Not Available Not Available bupropion HCl SR 150 mg tablet,12 hr sustained -release 1 tab 2 times daily 2018 active This is a new dosage per hospital dc Not Available Not Available Not Available nystatin 100,000 unit/mL oral suspensio n TAKE 5ML BY MOUTH FOUR TIMES A DAY , SWISH FOR SEVERAL MINUTES THEN SWALLOW USE FOR 7 DAYS 04/01 completed Not Available Not Available Not Available prednison e 10 mg tablet TAKE 4 TABLETS BY MOUTH ONCE DAILY FOR 5 DAYS AND 3 ONCE DAILY FOR 3 DAYS AND 2 ONCE DAILY FOR 3 DAYS AND 1 ONCE DAILY FOR 3 DAYS AND 1/2 (ONE-RACHAEL F) ONCE DAILY FOR 2 DAYS 01/22 completed Not Available Not Available Not Available gabapenti n 600 mg tablet TAKE ONE TABLET BY MOUTH IN THE Morning active Not Available Not Available No t Available doxycycli ne hyclate 100 mg capsule TAKE ONE CAPSULE BY MOUTH TWICE A DAY FOR 7 DAYS 08/03 completed Not Available Not Available Not Available cefuroxim e axetil 250 mg tablet 05/11 completed Not Available Not Available Not Available torsemide 20 mg tablet TAKE 1 TABLET BY MOUTH TWICE DAILY NEEDED active Not Available Not Available No t Available erythromy jermaine 500 mg tablet Take 1 tab by mouth twice daily x 10 days 04/19 completed Not Available Not Available Not Available Norvasc 10 mg tablet 1 tab daily 2013 active Not Available Not Available Not Avai lable clindamyc in HCl 300 mg capsule Take 1 tab by mouth four times a day 04/15 completed Dental prescrip tion Not Available Not Available Not Available albuterol sulfate 2.5 mg/3 mL (0.083 %) solution for nebulizat ion Inhale 1 vial as directed every four hours as needed J44.9-CO PD, I50.9 CHF 2020 active Not Available Not Available Not Avai lable cefpodoxi me 200 mg tablet TAKE ONE TABLET BY MOUTH TWICE A DAY MUST ADMINIST ER WITH A MEAL/WESLEY D active Not Available Not Available No t Available oxybutyni n chloride ER 10 mg tablet,ex tended release 24 hr Take 1 tab by mouth daily. 05/17 completed Not Available Not Available Not Available azithromy jermaine 250 mg tablet TAKE ONE TABLET BY MOUTH EVERY DAY active Not Available Not Available No t Available ibuprofen 800 mg tablet 1TAB daily 12/29 completed Not Available Not Available Not Available fluconazo le 150 mg tablet TAKE ONE TABLET BY MOUTH ONCE FOR ONE DOSE, MAY REPEAT IN 3 DAYS IF NEEDED 07/08 completed Not Available Not Available Not Available atenolol 100 mg tablet 1 TAB DAILY 04/09 completed Not Available Not Available Not Available methylphe nidate 10 mg tablet TAKE TWO TABLETS BY MOUTH TWICE A DAY 04/29 completed DOSE CHANGE Not Available Not Available Not Available valacyclo vir 1 gram tablet active Not Available Not Available Not Available methylphe nidate 20 mg tablet TAKE ONE TABLET BY MOUTH TWICE A DAY active Not Available Not Available No t Available Keflex 500 mg capsule Take 1 tab by mouth four times daily 09/12 completed Not Available Not Available Not Available Lasix 40 mg tablet 1 tab by mouth twice daily as needed for LEG SWELLING 11/24 completed Not Available Not Available Not Available glipizide ER 10 mg tablet, extended release 24 hr Take 1 by mouth daily 10/17 completed Not Available Not Available Not Available Nicoderm CQ 21 mg/24 hr daily transderm al patch Apply 1 patch external ly daily to hairless area. Rotate skin sites 03/08 completed Not Available Not Available Not Available lisinopri l 20 mg tablet Take 1/2 tab by mouth daily 11/09 completed Not Available Not Available Not Available prednison e 20 mg tablet TAKE TWO TABLETS BY MOUTH EVERY DAY 08/03 completed Not Available Not Available Not Available clonazepa m 1 mg tablet Take 1 tab bid use ativan very sparingl y 10/29 completed Not Available Not Available Not Available glipizide ER 5 mg tablet, extended release 24 hr Take 1 tab by mouth twice daily HOLD ON 09/22/1909/30 completed Not Available Not Available Not Available metformin 850 mg tablet 1 TAB twice daily 04/21 completed Not Available Not Available Not Available Vicodin HP 10 mg-660 mg tablet 1 TAB QHS 03/31 completed Not Available Not Available Not Available metronida zole 500 mg tablet TAKE ONE TABLET BY MOUTH TWO TIMES A DAY FOR 7 DAYS 07/08 completed Not Available Not Available Not Available chlorthal idone 25 mg tablet TAKE 1/2 TABLET BY MOUTH ONCE DAILY 11/24 completed Not Available Not Available Not Available Aygestin 5 mg tablet Take 1 tablet by mouth once a day 09/26 completed Not Available Not Available Not Available Glucophag e 1,000 mg tablet take 1 tablet by mouth twice daily 2014 active Not Available Not Available Not Avai lable ciproflox acin 500 mg tablet Take 1 tab by mouth twice daily 05/28 completed Not Available Not Available Not Available doxycycli ne monohydra te 100 mg tablet Take 1 tablet by mouth twice a day 06/23 completed Not Available Not Available Not Available Wellbutri n SR 100 mg tablet, 12 hr sustained -release 1 tab daily 11/23 completed Not Available Not Available Not Available Nicotrol 10 mg inhalatio n cartridge inhale 10 mg into the lungs as needed 10/05 completed Not Available Not Available Not Available oxycodone 15 mg tablet Take 1 tablet 3 times a day by oral route as needed. active Not Available Not Available No t Available ketorolac 10 mg tablet 1 TAB BY MOUTH EVERY 6HRS NEEDED FOR PAIN (HOLD DICLOFEN AC) 05/20 completed Not Available Not Available Not Available meloxicam 7.5 mg tablet TAKE 1 TABLET BY MOUTH TWICE EVERY DAY NEEDED for arthriti s pain, take with food (DO NOT TAKE WITH PREDNISO NE) 09/09 completed Not Available Not Available Not Available dibucaine 1 % topical ointment APPLY TO AFFECTED AREA 3 TO 4 TIMES A DAY NEEDED FOR PAIN 2023 active Not Available Not Available Not Avai lable Tessalon Perles 100 mg capsule 1 tab BID, PRN cough 05/28 completed Not Available Not Available Not Available DuoNeb 0.5 mg-3 mg(2.5 mg base)/3 mL solution for nebulizat ion inh EVERY SIX HOURS 07/29 completed Not Available Not Available Not Available magnesium oxide 400 mg (241.3 mg magnesium ) tablet TAKE ONE TABLET BY MOUTH EVERY EVENING 2023 active Not Available Not Available Not Avai lable Silvadene 1 % topical cream Apply layer of cream to affected area daily until skin is healed. (R RIB AREA) 03/22 completed Not Available Not Available Not Available Diflucan 100 mg tablet Take 1 tablet by mouth once a day 09/17 completed Not Available Not Available Not Available oxycodone -acetamin ophen 10 mg-325 mg tablet TAKE ONE TABLET BY MOUTH FOUR TIMES A DAY NEEDED FOR PAIN MAXIMUM DAILY DOSE = 4 03/01 completed Not Available Not Available Not Available gabapenti n 800 mg tablet TAKE ONE TABLET BY MOUTH AT BEDTIME active Not Available Not Available No t Available linezolid 600 mg tablet Take 1 tablet by mouth twice a day. 01/02 completed [facility] Not Available Not Available Not Available Lamictal 200 mg tablet 1TAB QD 04/09 completed Not Available Not Available Not Available diltiazem ER 120 mg capsule,2 4 hr,extend ed release Take 1 capsule by mouth once a day 09/30 completed Not Available Not Available Not Available OneTouch Ultra Test strips USE 1 STRIP TO CHECK GLUCOSE THREE TIMES DAILY 2021 active Not Available Not Available Not Avai lable lorazepam 2 mg tablet 1 TAB four times daily 2012 active Not Available Not Available Not Avai lable miconazol e nitrate (bulk) powder apply topicall y 2x daily 11/24 completed Not Available Not Available Not Available Nicoderm CQ 14 mg/24 hr daily transderm al patch Apply 1 patch to skin once a day 06/13 completed Not Available Not Available Not Available baclofen 10 mg tablet TAKE ONE TABLET BY MOUTH THREE TIMES A DAY NEEDED active Not Available Not Available No t Available Bactroban 2 % topical ointment apply to fingerti ps and nares bid 05/28 completed Not Available Not Available Not Available glipizide ER 2.5 mg tablet, extended release 24 hr Take 1 tab by mouth daily 2017 active Not Available Not Available Not Avai lable Lasix 20 mg tablet Take 1 tablet by mouth once a day 09/30 completed Not Available Not Available Not Available pantopraz ole 40 mg tablet,de layed release Take 1 tablet by mouth once daily 06/01 completed Not Available Not Available Not Available erythromy jermaine 5 mg/gram (0.5 %) eye ointment Apply 1/2 inch into affected eye three times a day for 5-7 days 05/06 completed Not Available Not Available Not Available oseltamiv ir 75 mg capsule Take 1 tablet by mouth twice a day. 05/06 completed Not Available Not Available Not Available E-Z Spacer Use as directed 11/09 completed Not Available Not Available Not Available Norvasc 5 mg tablet Take 1 tab by mouth daily (TO REPLACE 10MG TABS) 12/03 completed Not Available Not Available Not Available Neurontin 100 mg capsule Take 1 cap by mouth daily at noontime 01/07 completed Not Available Not Available Not Available lisinopri l 10 mg tablet Take 3 tabs by mouth daily 11/24 completed Not Available Not Available Not Available lansopraz ole 30 mg capsule,d elayed release TAKE ONE CAPSULE BY MOUTH EVERY DAY active Not Available Not Available No t Available clonazepa m 2 mg tablet 1 TAB twice daily 09/14 completed Not Available Not Available Not Available promethaz ine 25 mg tablet 1 tab by mouth every 6hrs as needed for nausea 12/03 completed Not Available Not Available Not Available diclofena c potassium 50 mg tablet Take 1 tab by mouth twice daily (Hold) 03/18 completed Not Available Not Available Not Available lisinopri l 30 mg tablet Take 1 tab by mouth twice daily 04/01 completed Not Available Not Available Not Available oxybutyni n chloride ER 5 mg tablet,ex tended release 24 hr Take 1 tab by mouth daily 04/19 completed Not Available Not Available Not Available gabapenti n 300 mg capsule TAKE 3 CAPSULES BY MOUTH ONCE DAILY AT BEDTIME 03/01 completed Not Available Not Available Not Available buspirone 7.5 mg tablet TAKE ONE TABLET BY MOUTH TWICE A DAY NEEDED active Not Available Not Available No t Available diclofena c sodium 50 mg tablet,de layed release 1 tab by mouth twice daily 11/24 completed Not Available Not Available Not Available Levaquin 500 mg tablet Take 1 tab by mouth daily 10/29 completed Not Available Not Available Not Available nystatin 100,000 unit/gram topical powder APPLY A SMALL AMOUNT TO AFFECTED AREAS ON SKIN THREE TIMES A DAY NEEDED active Not Available Not Available No t Available Marinol 5 mg capsule 1 TAB BY MOUTH TWICE DAILY 05/20 completed Not Available Not Available Not Available lorazepam 1 mg tablet 1 TAB twice daily 07/10 completed Not Available Not Available Not Available Wellbutri n 100 mg tablet Take 1 by mouth daily 10/24 completed Not Available Not Available Not Available Ritalin 5 mg tablet Take 4 tablet by mouth twice a day 06/13 completed Not Available Not Available Not Available levofloxa jermaine 750 mg tablet 1 tablet by mouth once a day predniso ne 20 mg Tablet 40 mg PO DAILY Qty: 8 0RF 11/23 completed [facility] Not Available Not Available Not Available albuterol sulfate HFA 90 mcg/actua tion aerosol inhaler INHALE 1 TO 2 PUFFS BY MOUTH EVERY 4 HOURS NEEDED active Not Available Not Available No t Available celecoxib 100 mg capsule Take 1 tablet by mouth twice a day. 2018 active Not Available Not Available Not Avai lable lisinopri l 40 mg tablet TAKE ONE TABLET BY MOUTH EVERY DAY active Not Available Not Available No t Available Imitrex 25 mg tablet 1 TAB prn 07/10 completed Not Available Not Available Not Available fluticaso ne propionat e 50 mcg/actua tion nasal spray,ramon pension 2 spray into both nostrils once a day 2018 active Not Available Not Available Not Avai lable metformin ER 500 mg tablet,ex tended release 24 hr Take 1 tabs by mouth BID 11/24 completed Not Available Not Available Not Available itraconaz ole 100 mg capsule 1 TAB TWICE DAILY x 7 DAYS. 04/29/16 [place] approved 05/03 completed Not Available Not Available Not Available doxycycli ne hyclate 100 mg tablet Take 1 tablet by mouth twice a day 02/27 completed Not Available Not Available Not Available atenolol 50 mg tablet TAKE ONE TABLET BY MOUTH ONCE DAILY active Not Available Not Available No t Available Hibiclens 4 % topical liquid Use on L daily daily 12/03 completed Not Available Not Available Not Available glipizide 5 mg tablet 2 tablet by mouth twice a day 07/31 completed Not Available Not Available Not Available naproxen 500 mg tablet 1 TAB twice daily 05/24 completed Not Available Not Available Not Available oxycodone 5 mg tablet TAKE ONE TABLET BY MOUTH UP TO THREE TIMES A DAY NEEDED FOR BREAKTHR OUGH PAIN active Not Available Not Available No t Available Bactrim DS 800 mg-160 mg tablet Take 1 tablet by mouth twice a day 12/07 completed Not Available Not Available Not Available Toradol 10 mg tablet 1 TAB four times daily 07/05 completed Not Available Not Available Not Available bupropion HCl SR 200 mg tablet,12 hr sustained -release TAKE 1 TABLET BY MOUTH ONCE DAILY IN THE MORNING 05/03 completed Not Available Not Available Not Available pen needle, diabetic 29 gauge x 1/2 Inject Victozia subcutan eously only as directed . 2016 active Not Available Not Available Not Avai lable aripipraz ole 10 mg tablet TAKE ONE TABLET BY MOUTH EVERY DAY active Not Available Not Available No t Available Novolog FlexPen U-100 Insulin aspart 100 unit/mL (3 mL) subcutane ous INJECT SUBCUTAN EOUSLY AT MEAL TIMES PER SLIDING SCALE (MAXIMUM OF 50 UNITS PER DAY) active Not Available Not Available No t Available Pen Needle 31 gauge x 5/16 inject 1 as directed subcutan eously at bedtime as directed 2016 active Not Available Not Available Not Avai lable Abilify 5 mg tablet Take 1 tab by mouth daily 10/08 completed Not Available Not Available Not Available rosuvasta tin 40 mg tablet TAKE ONE TABLET BY MOUTH EVERY EVENING active Not Available Not Available No t Available Crestor 10 mg tablet 1 TAB daily 2013 active Not Available Not Available Not Avai lable Crestor 20 mg tablet 1 TAB DAILY 09/18 completed Not Available Not Available Not Available Prilosec OTC 20 mg tablet,de layed release 1 tab twice daily 05/17 completed Not Available Not Available Not Available bupropion HCl XL 300 mg 24 hr tablet, extended release TAKE ONE TABLET BY MOUTH EVERY DAY active Not Available Not Available No t Available bupropion HCl XL 150 mg 24 hr tablet, extended release TAKE ONE TABLET BY MOUTH EVERY MORNING WITH 300MG active Not Available Not Available No t Available Yaya Milk of Magnesia 400 mg/5 mL oral suspensio n Take 10 ml by mouth twice a day as needed for constipa tion 11/09 completed Not Available Not Available Not Available Spiriva with [employer] r 18 mcg and inhalatio n capsules Inhale entire contents from 1 capsule daily 2016 active Not Available Not Available Not Avai lable BD Ultra-Fin e Mini Pen Needle 31 gauge x 3/16 USE 2 PEN NEEDLES TWICE A DAY DIRECTED 2023 active Not Available Not Available Not Avai lable Tricor 145 mg tablet 1 TAB every day 2012 active Not Available Not Available Not Avai lable Flovent HFA 220 mcg/actua tion aerosol inhaler Inhale 2 puffs by mouth twice daily DURING ACUTE ILLNESS 03/08 completed Not Available Not Available Not Available Atrovent HFA 17 mcg/actua tion aerosol inhaler 2 puffs by mouth four times daily (TO REPLACE SPIRIVA) 05/11 completed Not Available Not Available Not Available fenofibra te 160 mg tablet TAKE ONE TABLET BY MOUTH EVERY DAY active Not Available Not Available No t Available pregabali n 75 mg capsule TO REPLACE GABAPENT IN TAKE 1 CAPSULE BY MOUTH AT BEDTIME FOR 1 WEEK THEN INCREASE TO TWO TIMES A DAY 03/01 completed Not Available Not Available Not Available simvastat in 04/07 completed Not Available Not Available Not Available Advair Diskus 04/07 completed Not Available Not Available Not Available Levemir FlexPen 100 unit/mL (3 mL) solution subcutane ous insulin pen INJECT 12 UNITS SUBCUTAN EOUSLY AT BEDTIME MAY INCREASE BY 2 UNITS EVERY NIGHT UNTIL FBS<150 03/18 completed Not Available Not Available Not Available fluticaso ne propionat e 230 mcg-salme terol 21 mcg/actua tion HFA inhaler Inhale 1 puff by mouth twice a day 2023 active Not Available Not Available Not Avai lable Januvia 100 mg tablet TAKE ONE TABLET BY MOUTH EVERY DAY 11/09 completed change to ozempic Not Available Not Available Not Available NAC 600 mg capsule Take 2 capsule by mouth twice a day as needed Take two capsules in AM and an addition al two capsules in afternoo n or evening as needed for ANXIETY 06/01 completed Not Available Not Available Not Available Symbicort 160 mcg-4.5 mcg/actua tion HFA aerosol inhaler Inhale 2 puffs twice daily 11/11 completed Not Available Not Available Not Available Pristiq 50 mg tablet,ex tended release 1 TAB BY MOUTH DAILY 2017 active Not Available Not Available Not Avai lable desvenlaf axine succinate ER 100 mg tablet,ex tended release 24 hr TAKE ONE TABLET BY MOUTH EVERY DAY active Not Available Not Available No t Available Nicorette 2 mg buccal lozenge Apply 1 lozenge to inside of mouth (buccal) every two hours while awake as needed 06/01 completed Not Available Not Available Not Available Chantix Starting Month Box 0.5 mg (11)-1 mg (42) tablets in dose pack 0.5mg qd x3, then 0.5mg bid x4, then 1mg bid 12/13 completed Not Available Not Available Not Available Victoza 2-Emmett 0.6 mg/0.1 mL (18 mg/3 mL) subcutane ous pen injector 0.6mg daily x 2 weeks then increase to 1.2mg daily 12/13 completed Not Available Not Available Not Available Levemir FlexTouch U100 Insulin Inject 12 unit subcutan eously at bedtime DOSE OF 11/26/2203/01 completed Not Available Not Available Not Available Jardiance 10 mg tablet TAKE 1 TABLET BY MOUTH IN THE MORNING 01/22 completed Not Available Not Available Not Available Spiriva Respimat 2.5 mcg/actua tion solution for inhalatio n Inhale 2 inhalati ons once daily 05/15 completed Not Available Not Available Not Available Incruse Ellipta 62.5 mcg/actua tion powder for inhalatio n INHALE ONE PUFF BY MOUTH EVERY DAY active Not Available Not Available No t Available OxyContin 20 mg tablet,cr ush resistant ,extended release Take 1 tab by mouth twice daily 11/19 completed Not Available Not Available Not Available OxyContin 10 mg tablet,cr ush resistant ,extended release Take 1 tab by mouth twice daily in addition to to 20mg bid 11/19 completed Not Available Not Available Not Available naloxone 4 mg/actuat ion nasal spray SPRAY 1 SPRAY INTO BOTH NOSTRILS DIRECTED NEEDED 08/03 completed Not Available Not Available Not Available Lactobaci llus acidophil us 100 mg (1 billion cell) capsule 1 capsule PO daily 2018 active Not Available Not Available Not Avai willie Chirag Galvan U-100 Insulin 100 unit/mL (3 mL) subcutane ous INJECT 12 UNITS EVERY DAILY SUBCUTAN EOUSLY AT BEDTIME active 11/10/23: Decrease to 10u Q PM; IF 2 episodes of Hypoglyc emia (BS less than 70) in 1 week, then decrease insulin by 2 units Not Available Not Available Not Available oxygen Dx: noctural desatura tion 02 @ 1-2l/m via n/c q hs 01/08 completed Not Available Not Available Not Available Ozempic 0.25 mg or 0.5 mg (2 mg/1.5 mL) subcutane ous pen injector Inject 0.25 mg every week by subcutan eous route, for Diabetes . 2023 active Not Available Not Available Not Monica tapia Dexcom G6 Sensor device 1 device as directed as directed Change sensor every 10 days 05/08 completed Not Available Not Available Not Available Dexcom G6 Fish Flipper Use 1 device as directed as directed Use with Dexcom G6 Sensor and Transmit ter to read glucose every five minutes 05/08 completed Not Available Not Available Not Available Dexcom G6 Transmitt er device 1 device as directed every three months 05/08 completed Not Available Not Available Not Available FreeStyle Ramon 14 Day Sensor kit Use 1 kit as directed once every two weeks as directed 10/06 completed Not Available Not Available Not Available cannabidi ol (CBD) oral edible Take 1 tablet by mouth once a day 06/01 completed Not Available Not Available Not Available Voltaren Arthritis Pain 1 % topical gel 01/22 completed Not Available Not Available Not Available Paxlovid 300 mg (150 mg x 2)-100 mg tablets in a dose pack Take 1 dose pk twice a day by oral route for 5 days. 03/01 completed Not Available Not Available Not Available Vitals Date Recorded Body height Body mass index (BMI) Body weight Body temperature Oxygen saturation Oxygen saturation in Arterial blood by Pulse oximetry Inhaled oxygen flow rate Heart rate Respiratory rate Systolic blood pressure Diastolic blood pressure Provider Name and Address Organization Details Last Updated DateTime 152.4 cm 52.1 kg/m2 044007. 16 g 97.7 [degF] 94 % 94 % 2 L/min 84 /min 20 /min 150 mm[Hg] 80 mm[Hg] CALI GODFREY LPN [facility] 09:12:55 Social History Question Answer Notes LastModified by Organization Details LastModified Time Tobacco Smoking Status Current Every Day Smoker ESTEBAN MERA, [facility] 01/22/2023 14:32:14 Do You Or Have You Ever Used E-cigarettes Or Vape? Former User Of Electronic Cigarettes Information not available 01/22/2023 Date Care Plan Printed: 11/10/2023 Information not available 11/10/2023 Assigned Notched Blade Loader: Kat Perla RN, [facility] Transfer Primary Care Team To [facility] Team Information not available 11/10/2023 Is [facility] The Lead Notched Blade Loader? Yes Information not available 09/04/2023 Level Of Intensity: Quarterly Information not available 09/04/2023 Team Based Care: Yes Informat ion not available 09/04/2023 Vision Barrier Yes Uses Over-The Counter Readers Only Information not available 11/10/2023 Social Barrier Yes Multiple Support Services In Place, Offered, &/or Declined Information not available 11/10/2023 Last Care Team Meeting 11/10/2023 Information not available 11/10/2023 Transportation Barrier Yes Uses RCT, [employer] (has License) Information not available 11/10/2023 Financial Barrier Yes Limited Income Information not available 11/10/2023 Behavioral Health Yes Informa tion not available 11/10/2023 Community Oral Surgeon Yes Information not available 11/10/2023 Dental Services Yes Informati on not available 11/10/2023 Diabetes Education Yes Information not available 11/10/2023 Food Resources Yes Informatio n not available 11/10/2023 Fuel Assistance Yes Included With Rent; Had Fuel Assist In Past Information not available 11/10/2023 Housing Yes Lives With Partner With Independent Apartment Rental Information not available 11/10/2023 Meals On Wheels No Approved In Past, But Never Started; On-Hold In [place] Information not available 11/10/2023 Medication Assistance Yes Information not available 11/10/2023 Assisted Yes [facility] Team Informa tion not available 09/04/2023 Social Security/Disabili ty Yes SSDI Information not available 11/10/2023 Transportation Yes Informatio n not available 11/10/2023 Diabetes Self Management Program Yes Info Provided Information not available 11/10/2023 Diabetes Support Group Yes Info Provided Information not available 11/10/2023 Health Environmental Compliance Specialist For HTN Control Yes Info Provided Information not available 11/10/2023 Economic Services Yes Informa tion not available 11/10/2023 RCT Yes Information not available 11/10/2023 Rural Edge No Applied In [facility] In Past; No Results Information not available 11/10/2023 Hydrogeologist On Aging Yes Informat ion not available 09/04/2023 Home Health Agency Yes [facility] ([facility]) Information not available 11/10/2023 Providers Yes Information not available 09/04/2023 Other Support System Yes Community Health Team; [facility] Team; Glucometer &/or Freestyle Ramon CGM Support Team; Insulin Support Teams; Ozempic Support Team Information not available 11/10/2023 What Was The Date Of Your Most Recent Tobacco Screening? 11/10/2023 Information not available 11/10/2023 What Is Your Current Pack Years? 30ormorepacky ears Information not available 01/22/2023 At What Age Did You Start Smoking Tobacco? 12 Information not available 01/22/2023 Do You Or Have You Ever Used Smokeless Tobacco? Never Used Smokeless Tobacco Information not available 01/22/2023 How Much Tobacco Do You Smoke? 0.5 PPD Information not available 11/10/2023 Has Tobacco Cessation Counseling Been Provided? Yes Information not available 01/22/2023 On What Date Was Tobacco Cessation Counseling Provided? 11/10/2023 Information not available 11/10/2023 How Many Years Have You Smoked Tobacco? 30 Information not available 04/01/2023 Do You Or Have You Ever Used Any Other Forms Of Tobacco Or Nicotine? Yes Information not available 01/22/2023 How Many Years Have You Used E-cigarettes Or Vape? 0 6 Months Information not available 01/22/2023 Sex: Female Functional Status None recorded. Mental Status None recorded. Family History Relationship Description Onset Age of this Age Resolved Age Notes LastModified by Organization Details LastModified Time Sister Family history of malignant neoplasm BLADDE R [place] [email or web address] Not available 12/27/2022 03:54:48 Sister Family history of malignant neoplasm of lung [email or web address] Not available 2022 03:54:48 Sister Neoplasm of uterus 60 [email or web address] Not available 2023 10:01:01 Notes:*Problem: MOTHER - DM2 , HTN, CAD, asthma/COPD FATHER - Fibromyalgia, HPL, HTN Also positive for mental health problems and ETOH. No known hx CA. Medical History No medical history recorded. Gynecological HistoryNo gynecological history recorded. Obstetrics History GPAL:G 0 P 0 0 0 0 Immunizations Vaccine Type Date Status Provider Name and Address Organization Details Recorded Time Tdap 05/22/2012 completed Not Available [facility] 06:24:37 Influenza, split virus, trivalent, preservative 12/25/2015 completed Not Available [facility] 12/27/2022 06:24:37 Influenza, split virus, quadrivalent, PF 12/27/2019 completed Not Available [facility] 12/27/2022 06:24:37 Influenza, split virus, quadrivalent, PF 01/08/2021 completed Not Available [facility] 12/27/2022 06:24:37 Influenza, split virus, quadrivalent, PF 01/29/2022 completed Not Available [facility] 12/27/2022 06:24:37 Influenza, split virus, quadrivalent, PF 02/16/2019 completed Not Available [facility] 12/27/2022 06:24:37 Influenza, split virus, quadrivalent, preservative 12/03/2016 completed [facility] Available [facility] 12/27/2022 06:24:37 Influenza, split virus, quadrivalent, preservative 01/16/2018 completed Not Available [facility] 12/27/2022 06:24:37 COVID-19, mRNA, LNP-S, PF, 100 mcg/0.5mL dose or 50 mcg/0.25mL dose 05/14/2020 completed Not Available [facility] 12/27/2022 06:24:37 COVID-19, mRNA, LNP-S, PF, 100 mcg/0.5mL dose or 50 mcg/0.25mL dose 06/11/2020 completed Not Available [facility] 12/27/2022 06:24:37 COVID-19, mRNA, LNP-S, PF, 100 mcg/0.5mL dose or 50 mcg/0.25mL dose 02/13/2021 completed Not Available [facility] 12/27/2022 06:24:37 COVID-19, mRNA, LNP-S, bivalent, PF, 30 mcg/0.3 mL dose 11/27/2021 completed Not Available [facility] 12/28/19 06:24:38 pneumococcal polysaccharide PPV23 06/12/2012 completed Not Available [facility] 2022 06:24:38 influenza, unspecified formulation 11/05/2013 completed Not Available [facility] 12/27/2022 06:24:38 Past Encounters Encounter ID Performer Location Encounter Start Date Encounter Closed Date Diagnosis/Indication Diagnosis SNOMED-CT Code Diagnosis ICD10 Code [id number] SIDRA RUTH [address] [id number] 11/10/2023 08:33:11 11/10/2023 10:14:42 Type 2 diabetes mellitus without complication 635849554 E11.9 Long-term drug therapy 939489440 Z79.899 Chronic ob structive pulmonary disease 01081915 J44.9 J96.10 Chronic pain 83067160 G8 9.29 Essential hypertension 48288847 I10 Severe obesity 241689661 1 9104 E66.01 Tobacco de pendence caused by cigarettes 4296577392 6272788 F17.210 Recurrent major depression 09612386 F33.9 Chronic ulcer of skin 19 305786 L98.499 Goals Section Goal Description Status Start Date LastModified by Organization Details LastModified Time Abdominal Wound Healing Patient states that she began with 11 open abdominal ulcers and the majority are healing well with regular wound dressing changes. There is one that remains open. She will continue with HH visits to ensure they properly heal. Goal not achieved [facility]AT [facility]OW Information not available 11/10/2023 18:47:39 Diabetes Control Gal: A1C < 7% with Medications & referrals to Judy, Nurse Notched Blade Loader + to [facility] for Medical Nutrition Therapy, Diabetes, CGM, & Care Team Self Mgt. Goal not achieved [facility] Information not available 11/10/2023 18:53:32 Health Concerns Section Related Observation LastModified by Organization Detai ls LastModified Time None Recorded Concern Status LastModified by Organization Details LastModified Time Chronic obstructive pulmonary disease Active Ruba Gracia RN Not Available 09/04/2023 17:45:07 Chronic ulcer of skin Active [facility] Not Available 11/10/2023 18:4 7:39 Essential hypertension Active Ruba Gracia RN Not Available 09/04/2023 17:45:51 Type 2 diabetes mellitus Active [facility] Not Available 11/10/2023 18:5 3:32 Payers Encounter Date Sequence Insurance Name Policy Number Policy Powell Covered Member ID Powell Member ID Guarantor Name 11/10/2023 1 [place] [employer] Rosibel A Fabrizio [id number] Rosibel A Fabrizio 11/10/2023 2 [facility] (MEDICAID) Rosibel A Fabrizio [id number] Rosibelranjeet Dinh Notes Date Note Type Note Provider Name and Address Organization Details Recorded Time 11/10/2023 text/html HPI Notes: cc transfer to our office from [facility] due to move to [place] Multiple chronic issues - generally feels horrible. Chronic pain - feels her leg pain is very bad radiates from her hips to her ankles, also has shoulder pain, was getting symvist injections in her knees, multiple times, recent increase in oxycodone was not found to be helpful, has been on gabapentin 600 mg in morning, and 800 in the evening, she feels this really makes her tired and feels this is why she takes the methylphenidate Chronic knee pain was told by [facility] ortho that she was a poor candidate for surgery Marijuana - found in urine, she was taking gummies for her knee pain ( as recommended by nurse) that didn't help and last dose was yesterday or the day before Depression - has been on ritalin to help keep her awake (has hx of sleep apnea) , she does feel as though it helps sometimes Partner keeps her medications locked up DM - blood sugars had been running in the 200's but better in the past two weeks. No hx of pancreatic problems, no hx of thyroid cancer or family hx of thyroid cancer. Sister just started Ozempic. She has not been using her night time insulin, she takes 4 units of novolog about 5 x weekly, she uses CGM, contines on januvia and uses her novolog about 4 times weekly with a sliding scale at meal times. She stopped taking her basaglar due to low am blood sugars. Constipation - moves her bowels 3 x weekly, uses suppositories or dulcolax Pannus ulcers - improved since onset SIDRA RUTH, REFUSE COLLECTOR SUPERVISOR [address], [place], [address], [place] - [facility]. 11/10/2023 10:51:04 OBGyn Episode No OBEpisode recorded.
--- OUTSIDE RECORDS SUMMARY | 2023-11-10 17:35 | XMS_ITS | Encounter Summary ---
Author Organization [facility] Address [facility] [place] [address] Care Team Providers Care Bond Broker Name Role Phone Maria Del Carmen Nogueira Primary Care Provider [phone] Encounter Details Date Type Department Care Team (Late st Contact Info) Description 11/12/2021 Abstract Cardiology at [address] [place] [address] Harini Caal RN Social History Tobacco Use Types Packs/Day Years Used Date Smoking Tobacco: Every Day Cigarettes Smokeless Tobacco: Never Alcohol Use Standard Drinks/Week Comments Yes 0 (1 standard drink = 0.6 oz pur e alcohol) occasionaly Sex and Gender Information Value Date Recorded Sex Assigned at Not on file Gender Identity Not on file Sexual Orientation Not on file documented as of this encounter Plan of Treatment Not on file documented as of this encounter Visit Diagnoses Not on filedocumented in this encounter Care Teams Bond Broker Relationship Specialty Start Date End Date Maria Del Carmen Nogueira PA [address] [place] [address] PCP - General Family Medicine 09/05/21 documented as of this encounter
--- OUTSIDE RECORDS SUMMARY | 2023-11-10 17:35 | XMS_ITS | Encounter Summary ---
Author Organization [facility] [place] [address] Care Team Providers Care Pals Nurse Name Role Phone Maria Del Carmen Nogueira Primary Care Provider [phone]- [phone] Reason for Referral * Consultation (Routine) - Closed Specialty Diagnoses / Procedures Referred By Remi bernardo Referred To Contact Cardiology Diagnoses Congestive heart failure, unspecified HF chronicity, unspecified heart failure type [facility] inpt admission for respiratory distress-acute exacerbation of CHF, acute on chronic respiratory failure w/ hypoxia & hypercapnia. (HF defers to [facility]) Procedures clarify if pt going to [facility] or [facility]? Malissa Alvarado, [address] [place] [address] [facility] [address] [place] [id number] Referral ID Status Reason Start Date Expiration Date V isits Requested Visits Authorized [id number] Closed Consult, Test & Treat PCP Updated and/or Approved 09/05/2021 09/05/2022 12 12 Encounter Details Date Type Department Care Team (Latest Contact Info) Description 09/05/2021 Transcribe Orders eDH Incoming Referrals [phone] Malissa Alvarado, [address] [place] [address] Congestive heart failure, unspecified HF chronicity, unspecified heart failure type Social History Tobacco Use Types Packs/Day Years [...] as of this encounter Plan of Treatment Scheduled Referrals Name Type Priority Associated Diagnoses Orde r Schedule Referral to Cardiology Outpatient Referral Routine Congestive heart failure, unspecified HF chronicity, unspecified heart failure type Ordered: 09/05/2021 documented as of this encounter Visit Diagnoses Diagnosis Congestive heart failure, unspecified HF chronicity, unspecified heart failure type documented in this encounter Care Teams Pals Nurse Relationship Specialty Start Date End Date Maria Del Carmen Nogueira PA [address] [place] [address] PCP - General Family Medicine 09/05/21 documented as of this encounter
--- OUTSIDE RECORDS SUMMARY | 2023-11-10 17:35 | XMS_ITS | Data Portability ---
Author Organization [place] [facility], [facility] Address [address] [place] [address] Care Team Providers Care Job Setter Honing Name Role Phone SIDRA RUTH Primary Care Provider AMLIN OPTICAL OTHER PERLA KATHLEEN Preparation Plant Supervisor [phone] LOUISE FUENTES Dentist JIAN MONK Environmental Health Technologist/Band Master ISIS DORMAN Psychiatrist [phone] FORD CONWAY Behavioral Health [facility] Community Health Worker [facility] [place] [facility] OTHER [facility] OTHER [facility] OTHER [facility] OTHER Assessment Encounter Date Assessment Date Assessment LastModified by Organization Details LastModified Time 09/22/2023 09/22/2023 This appointment was conducted via telephone. A total of 30 minutes was spent at this visit of which at least 50% was spent in direct patient contact. Consent was given to conduct this encounter using appropriate technology. [email or web address] Not available 10/16/2023 12:19:45 11/10/2023 11/10/2023 Transfer to our office from [facility] multiple chronic issues The total time devoted to today's encounter, including both the qypu-iq-jnhc time with the patient and/or family/caregiv er and uie-lxhu-ea-fa ce time I personally spent is 60 minutes. [email or web address] Not available 11/10/2023 10:31:59 Plan of Treatment Reminders Order Date Submit Date Provider Last Modified By Organization Details Last Modified Time Details Appointments Office Visit 60 2023 09:10A M Not available Not available Not available Lab HSV (1+2) DNA, qual, PCR, unspecif ied specimen - Specimen collecte d in the office at [facility]. 2023 024 [facility] (Registration ), [address] [place] [address] [place], [address], 05/30/2023 08:58:17 bacteria l vaginosi s + vaginiti s panel, vaginal - Specimen collecte d in the office at [facility]. 2023 024 [facility] (Registration ), [address] [place] [address] [place], [address], 05/28/2023 09:06:49 drug of abuse panel, urine [address], [address] [place] [address], [address], 11/10/2023 10:58:46 methylph enidate, QL, confirm, urine [address] [facility] (Registration ), [address] [place] [address] [place], [address], 11/10/2023 10:58:46 hemoglob in A1C, fingerst ick [address], [address] [place] [address], [address], 11/10/2023 10:58:46 Referral wound care referral 2023 024 [facility]STIDES [facility], [address] [place], [address], 10/08/2023 15:30:36 psychiat rist referral 2023 024 mgaboriault 1 Isis Dorman casing builder, [address], [place], [address], 11/10/2023 16:50:31 diabetic nutritio n educatio n referral 2023 [address], [address] , [place], [address], 11/10/2023 16:51:14 Procedures None recorded . Surgeries None recorded . Imaging None recorded . Medication Orders clotrima zole 10 mg mary 2023 DENIS [facility], [address] [place], [address], 11/10/2023 09:14:47 oxycodon e 15 mg tablet 2023 024 DEN[facility], [address] [place], [address], 07/09/2023 13:25:19 Narcan 4 mg/actua tion nasal spray 2023 024 [facility], [address] [place], [address], 08/04/2023 15:03:29 Neuronti n 800 mg tablet 2023 024 DENIS [facility], [address] [place], [address], 07/09/2023 13:24:38 oxycodon e 5 mg tablet 2023 024 [facility], [address] [place], [address], 07/09/2023 13:25:10 methylph enidate 20 mg tablet 2023 024 [facility] [address] [place], [address], 07/09/2023 13:25:13 baclofen 10 mg tablet 2023 024 DENIS [facility], [address] [place], [address], 08/04/2023 15:51:49 oxycodon e 15 mg tablet 2023 024 DENIS [facility], [address] [place], [address], 08/04/2023 15:52:17 oxycodon e 5 mg tablet 2023 024 [email or web address] [facility], [address] [place], [address], 10/28/2023 09:09:58 oxycodon e 15 mg tablet 2023 024 [email or web address] [facility], [address] [place] [address], [address], 10/16/2023 12:21:46 Ozempic 0.25 mg or 0.5 mg (2 mg/1.5 mL) subcutan eous pen injector 2023 024 [email or web address], [address] [place], [address], 11/10/2023 10:31:10 Patient TargetsNo targets recorded. Patient Instructions Encounter Date Encounter Id Patient Instructions Last Modified By Organization Details Last Modified Time 05/27/2023 [id number] Today, we are checking for continued yeast infection, as well as any possibility of herpes outbreak. For now, do focus on stopping all shear/friction in this area to promote healing. Do continue to keep clean and dry. We did find 3M Cavilon Durable Barrier Cream, that does not appear to have zinc, which could supply some soothing properties while this area is healing. Could consider f/u with [facility]. [email or web address] Not available 05/27/2023 14:04:57 11/10/2023 [id number] 1. wait 15 minutes prior to lighting [...] gabapentin by half tab in the morning [email or web address] Not available 11/10/2023 10:50:14 Reason for Referral Breast Surgery Referral for Lump of subareolar area of right breast Referring Physician: Rachel Ayala, [facility], Encounter Date: 03/26/2023 Referring Physician: Maria Del Carmen Nogueira [facility], Encounter Date: 07/15/2023 Referring Physician: Maria Del Carmen Nogueira [facility], Encounter Date: 09/22/2023 Diabetic Nutrition Education Referral for Type 2 diabetes mellitus without complication Referring Physician: Sidra Ruth [facility], Encounter Date: 11/10/2023 Psychiatrist Referral for Re current major depression Referring Physician: Sidra Ruth [facility], Encounter Date: 11/10/2023 Results Created Date Observation Date Name Description Value Unit Range Abnormal Flag Note LastModifiedBy Organization Detail LastModifiedTime 04/27/19 24 04/27/2023 COMPL ETE BLOOD COUNT W/DIF F WBC 8.90 10_3/ uL 4.4-10 .8 normal Not Available [address] [place], [address] 04/27/2023 12:45:59 04/27/19 24 04/27/2023 COMPL ETE BLOOD COUNT W/DIF F RBC 5.07 10_6/ uL 3.93-5 .22 normal Not Available [address] [place], [address] 04/27/2023 12:45:59 04/27/1904/27/2023 COMPL ETE BLOOD COUNT W/DIF F HGB 14.9 g/dL 11.2-1 5.7 normal Not Available [address] [place], [address] 04/27/2023 12:45:59 04/27/1904/27/2023 COMPL ETE BLOOD COUNT W/DIF F HCT 47.6 % 36.0-4 6.0 high Not Available [address] [place], [address] 04/27/2023 12:45:59 04/27/1904/27/2023 COMPL ETE BLOOD COUNT W/DIF F MCV 94 fL 80-95 normal Not Available [address] [place], [address] 04/27/2023 12:45:59 04/27/1904/27/2023 COMPL ETE BLOOD COUNT W/DIF F MCH 29.4 pg 27.0-3 3.0 normal Not Available [address] [place], [address] 04/27/2023 12:45:59 04/27/1904/27/2023 COMPL ETE BLOOD COUNT W/DIF F MCHC 31.3 % 32.0-3 6.0 low Not Available [address] [place], [address] 04/27/2023 12:45:59 04/27/1904/27/2023 COMPL ETE BLOOD COUNT W/DIF F RDW 15.2 % 11.7-1 4.6 high Not Available [address] [place], [address] 04/27/2023 12:45:59 04/27/1904/27/2023 COMPL ETE BLOOD COUNT W/DIF F platelet count 214 10_3/ uL 130-40 0 normal Not Available [address] [place], [address] 04/27/2023 12:45:59 04/27/19 24 04/27/2023 COMPL ETE BLOOD COUNT W/DIF F MPV 9.0 fL 8.0-11 .0 normal Not Available [address] [place], [address] 04/27/2023 12:45:59 04/27/19 24 04/27/2023 COMPL ETE BLOOD COUNT W/DIF F neutrophils % 68.0 Not Available [address] [place], [address] 04/27/2023 12:45:59 04/27/19 24 04/27/2023 COMPL ETE BLOOD COUNT W/DIF F lymphocytes % 23.3 Not Available [address] [place], [address] 04/27/2023 12:45:59 04/27/19 24 04/27/2023 COMPL ETE BLOOD COUNT W/DIF F monocytes % 7.2 Not Available [address] [place], [address] 04/27/2023 12:45:59 04/27/19 24 04/27/2023 COMPL ETE BLOOD COUNT W/DIF F eosinophils % 0.0 Not Available [address] [place], [address] 04/27/2023 12:45:59 04/27/19 24 04/27/2023 COMPL ETE BLOOD COUNT W/DIF F basophils % 0.4 Not Available [address] [place], [address] 04/27/2023 12:45:59 04/27/19 24 04/27/2023 COMPL ETE BLOOD COUNT W/DIF F immature grans % 1.1 Not Available [address] [place], [address] 04/27/2023 12:45:59 04/27/19 24 04/27/2023 COMPL ETE BLOOD COUNT W/DIF F nucleated RBC 0.0 % 0.0-0. 3 normal Not Available [address] [place], [address] 04/27/2023 12:45:59 04/27/19 24 04/27/2023 COMPL ETE BLOOD COUNT W/DIF F absolute neutrophil count 6.05 10_3/ uL 1.2-6. 7 normal Not Available [address] [place], [address] 04/27/2023 12:45:59 04/27/19 24 04/27/2023 COMPL ETE BLOOD COUNT W/DIF F absolute lymphocyte count 2.07 10_3/ uL 1.2-3. 4 normal Not Available [address] [place], [address] 04/27/2023 12:45:59 04/27/19 24 04/27/2023 COMPL ETE BLOOD COUNT W/DIF F absolute monocyte count 0.64 10_3/ uL 0.1-0. 8 normal Not Available [address] [place], [address] 04/27/2023 12:45:59 04/27/19 24 04/27/2023 COMPL ETE BLOOD COUNT W/DIF F absolute eosinophil count 0.00 10_3/ uL 0.0-0. 7 normal Not Available [address] [place], [address] 04/27/2023 12:45:59 04/27/19 24 04/27/2023 COMPL ETE BLOOD COUNT W/DIF F absolute basophil count 0.04 10_3/ uL 0.0-0. 2 normal Not Available [address] [place], [address] 04/27/2023 12:45:59 04/27/19 24 04/27/2023 COVID /FLU/ RSV PCR source Nasoph arynx Not Available [address] [place], [address] 04/27/2023 13:03:59 04/27/19 24 04/27/2023 COVID /FLU/ RSV PCR covid-19 PCR Negati ve negati ve This test has not been FDA clear ed or appro antonio. This test has been autho rized by the FDA under an Emerg ency Use Autho rizat ion for use by autho kusum labor atori es. This test has been autho rized only for detec tion of nucle ic acid from the 2019 novel coron a virus (2018 -nCoV ), influ fidelia A, influ fidelia B, and respi rator y syncy tial virus (RSV) , and not for the detec tion of any other virus es or patho gens. This test is only autho rized for the durat ion of the decla ratio n that circu mstan judy exist justi fying the autho rizat ion of emerg ency use of in vitro diagn ostic tests for detec tion and/o r diagn osis of nCoV under secti on 564(b )(1) of Act, 21 U.S.C ??? 360bb b-3(b )(1), unles s the autho rizat ion is termi nated or revok ed soone r. Negat prachi resul ts do not precl ude 2019- nCoV, influ fidelia, and/o r RSV infec tion and shoul d not be used as the sole basis for treat ment or other patie nt manag ement decis ions. Negat prachi resul ts must be combi viji with clini sabine obser vatio ns, patie nt histo ry, and epide miolo gical infor matio n. Testi ng perfo rmed at [facility] (CLIA #[id number]) on the Cephe id GeneX pert. Not Available [address] [place], [address] 04/27/2023 13:03:59 04/27/19 24 04/27/2023 COVID /FLU/ RSV PCR influenza A PCR Negati ve negati ve Not Available [address] [facility] [place], [address] 04/27/2023 13:03:59 04/27/19 24 04/27/2023 COVID /FLU/ RSV PCR influenza B PCR Negati ve negati ve Not Available [address] [place], [address] 04/27/2023 13:03:59 04/27/19 24 04/27/2023 COVID /FLU/ RSV PCR RSV PCR Negati ve negati ve Not Available [address] [place], [address] 04/27/2023 13:03:59 04/27/19 24 04/27/2023 COMPR EHENS PRACHI METAB OLIC PANEL calcium 10.1 mg/dL 8.5-10 .1 normal Not Available [address] [place], [address] 04/27/2023 13:04:01 04/27/19 24 04/27/2023 COMPR EHENS PRACHI METAB OLIC PANEL glucose 222 mg/dL 74-106 high Not Available Leona dahl [address] [place], [address] 04/27/2023 13:04:01 04/27/19 24 04/27/2023 COMPR EHENS PRACHI METAB OLIC PANEL BUN 13 mg/dL 7-18 normal Not Available Leona [address] [place], [address] 04/27/2023 13:04:01 04/27/19 24 04/27/2023 COMPR EHENS PRACHI METAB OLIC PANEL creatinine 0.7 mg/dL 0.55-1 .02 normal Not Available [address] [place], [address] 04/27/2023 13:04:01 04/27/19 24 04/27/2023 COMPR EHENS PRACHI METAB OLIC PANEL estimated GFR 103.35 mL/min /1.73m 2 The eGFR is calcu lated from a serum creat inine using the CKD-E PI 2020 equat ion. Other varia bles requi red for the equat ion are gende r and age; this equat ion does not inclu de a race coeff icien t. This equat ion has simil ar overa ll perfo rmanc e to previ ous equat ions excep t value s may diffe r, in parti cular , in patie nts with highe r value s of eGFR and young er-ag ed adult s. Not Available [address] [place], [address] 04/27/2023 13:04:01 04/27/19 24 04/27/2023 COMPR EHENS PRACHI METAB OLIC PANEL total protein 8.1 g/dL 6.4-8. 2 normal Not Available [address] [place], [address] 04/27/2023 13:04:01 04/27/19 24 04/27/2023 COMPR EHENS PRACHI METAB OLIC PANEL albumin 3.5 g/dL 3.4-5. 0 normal Not Available [address] [place], [address] 04/27/2023 13:04:01 04/27/19 24 04/27/2023 COMPR EHENS PRACHI METAB OLIC PANEL bilirubin, total 0.4 mg/dL 0.2-1. 0 normal Not Available [address] [place], [address] 04/27/2023 13:04:01 04/27/19 24 04/27/2023 COMPR EHENS PRACHI METAB OLIC PANEL alk phos 79 U/L 46-116 normal Not Available [address] [place], [address] 04/27/2023 13:04:01 04/27/19 24 04/27/2023 COMPR EHENS PRACHI METAB OLIC PANEL sodium 141 mmol/ L 136-14 5 normal Not Available [address] [place], [address] 04/27/2023 13:04:01 04/27/1904/27/2023 COMPR EHENS PRACHI METAB OLIC PANEL potassium 4.4 mmol/ L 3.5-5. 1 normal Not Available [address] [place], [address] 04/27/2023 13:04:01 04/27/1904/27/2023 COMPR EHENS PRACHI METAB OLIC PANEL chloride 101 mmol/ L 98-107 normal Not Available [address] [place], [address] 04/27/2023 13:04:01 04/27/19 24 04/27/2023 COMPR EHENS PRACHI METAB OLIC PANEL CO2 34.5 mmol/ L 21.0-3 2.0 high Not Available [address] [place], [address] 04/27/2023 13:04:01 04/27/19 24 04/27/2023 COMPR EHENS PRACHI METAB OLIC PANEL anion gap 5.5 mmol/ L 3-11 normal Not Available [address] [place], [address] 04/27/2023 13:04:01 04/27/19 24 04/27/2023 COMPR EHENS PRACHI METAB OLIC PANEL AST 13 U/L 15-37 low Not Available Leona dahl [address] [place], [address] 04/27/2023 13:04:01 04/27/19 24 04/27/2023 COMPR EHENS PRACHI METAB OLIC PANEL ALT 15 U/L 14-59 normal Not Available Leona [address] [place], [address] 04/27/2023 13:04:01 05/07/19 24 05/07/2023 VAGIN AL PATHO GEN SCREE N vaginal pathogen screen abnormal Vagin al Patho gen Scree n STACY DA POSIT PRACHI GARDN ERELL A POSIT PRACHI TRICH OMONA S NEGAT PRACHI Not Available [address] [place], [address] 05/07/2023 16:54:39 05/27/19 24 05/27/2023 VAGIN AL PATHO GEN SCREE N vaginal pathogen screen abnormal Vagin al Patho gen Scree n STACY DA NEGAT PRACHI GARDN ERELL A POSIT PRACHI TRICH OMONA S NEGAT PRACHI Not Available [facility] (Registration ) [address] [place] [address] [place], [address], 05/27/2023 22:31:21 05/27/19 24 05/30/2023 HERPE S SIMPL EX VIRUS PCR hsv 1 DNA result Negati ve negati ve Not Available [address] [place], [address] 05/30/2023 08:58:17 05/27/19 24 05/30/2023 HERPE S SIMPL EX VIRUS PCR hsv 2 DNA result Negati ve negati ve Sourc e:vul va Test perfo rmed or refer red by [facility] [address], [place] [address] Not Available [address] [place], [address] 05/30/2023 08:58:17 06/11/19 24 06/11/2023 VAGIN AL PATHO GEN SCREE N vaginal pathogen screen Vagin al Patho gen Scree n STACY DA NEGAT PRACHI GARDN ERELL A NEGAT PRACHI TRICH OMONA S NEGAT PRACHI Not Available [address] [place], [address] 06/11/2023 16:09:20 06/11/19 24 06/12/2023 HERPE S SIMPL EX VIRUS PCR hsv 1 DNA result Negati ve negati ve Not Available [address] [place], [address] 06/12/2023 14:16:27 06/11/19 24 06/12/2023 HERPE S SIMPL EX VIRUS PCR hsv 2 DNA result Negati ve negati ve Sourc e:Vuv la Test perfo rmed or refer red by [facility] [address], [place] [address] Not Available [address] [place], [address] 06/12/2023 14:16:27 07/25/19 24 07/25/2023 COMPL ETE BLOOD COUNT W/DIF F WBC 9.68 10_3/ uL 4.4-10 .8 normal Not Available [address] [place], [address] 07/25/2023 14:01:51 07/25/19 24 07/25/2023 COMPL ETE BLOOD COUNT W/DIF F RBC 4.41 10_6/ uL 3.93-5 .22 normal Not Available [address] [place], [address] 07/25/2023 14:01:51 07/25/19 24 07/25/2023 COMPL ETE BLOOD COUNT W/DIF F HGB 13.0 g/dL 11.2-1 5.7 normal Not Available [address] [place], [address] 07/25/2023 14:01:51 07/25/19 24 07/25/2023 COMPL ETE BLOOD COUNT W/DIF F HCT 41.2 % 36.0-4 6.0 normal Not Available [address] [place], [address] 07/25/2023 14:01:51 07/25/19 24 07/25/2023 COMPL ETE BLOOD COUNT W/DIF F MCV 93 fL 80-95 normal Not Available Leona [address] [place], [address] 07/25/2023 14:01:51 07/25/19 24 07/25/2023 COMPL ETE BLOOD COUNT W/DIF F MCH 29.5 pg 27.0-3 3.0 normal Not Available [address] [place], [address] 07/25/2023 14:01:51 07/25/19 24 07/25/2023 COMPL ETE BLOOD COUNT W/DIF F MCHC 31.6 % 32.0-3 6.0 low Not Available [address] [place], [address] 07/25/2023 14:01:51 07/25/19 24 07/25/2023 COMPL ETE BLOOD COUNT W/DIF F RDW 14.7 % 11.7-1 4.6 high Not Available [address] [place], [address] 07/25/2023 14:01:51 07/25/19 24 07/25/2023 COMPL ETE BLOOD COUNT W/DIF F platelet count 223 10_3/ uL 130-40 0 normal Not Available [address] [place], [address] 07/25/2023 14:01:51 07/25/19 24 07/25/2023 COMPL ETE BLOOD COUNT W/DIF F MPV 9.2 fL 8.0-11 .0 normal Not Available [address] [place], [address] 07/25/2023 14:01:51 07/25/19 24 07/25/2023 COMPL ETE BLOOD COUNT W/DIF F neutrophils % 71.4 % Not Available [address], [address] 07/25/2023 14:01:51 07/25/19 24 07/25/2023 COMPL ETE BLOOD COUNT W/DIF F lymphocytes % 15.1 % Not Available [address] [place], [address] 07/25/2023 14:01:51 07/25/19 24 07/25/2023 COMPL ETE BLOOD COUNT W/DIF F monocytes % 12.4 % Not Available [address] [place], [address] 07/25/2023 14:01:51 07/25/19 24 07/25/2023 COMPL ETE BLOOD COUNT W/DIF F eosinophils % 0.0 % Not Available [address] [place], [address] 07/25/2023 14:01:51 07/25/19 24 07/25/2023 COMPL ETE BLOOD COUNT W/DIF F basophils % 0.4 % Not Available [address] [place], [address] 07/25/2023 14:01:51 07/25/19 24 07/25/2023 COMPL ETE BLOOD COUNT W/DIF F immature grans % 0.7 % Not Available [address] [place], [address] 07/25/2023 14:01:51 07/25/19 24 07/25/2023 COMPL ETE BLOOD COUNT W/DIF F nucleated RBC 0.0 % 0.0-0. 3 normal Not Available [address] [place], [address] 07/25/2023 14:01:51 07/25/19 24 07/25/2023 COMPL ETE BLOOD COUNT W/DIF F absolute neutrophil count 6.91 10_3/ uL 1.2-6. 7 high Not Available [address] [place], [address] 07/25/2023 14:01:51 07/25/19 24 07/25/2023 COMPL ETE BLOOD COUNT W/DIF F absolute lymphocyte count 1.46 10_3/ uL 1.2-3. 4 normal Not Available [address] [place], [address] 07/25/2023 14:01:51 07/25/19 24 07/25/2023 COMPL ETE BLOOD COUNT W/DIF F absolute monocyte count 1.20 10_3/ uL 0.1-0. 8 high Not Available [address] [place], [address] 07/25/2023 14:01:51 07/25/19 24 07/25/2023 COMPL ETE BLOOD COUNT W/DIF F absolute eosinophil count 0.00 10_3/ uL 0.0-0. 7 normal Not Available [address] [place], [address] 07/25/2023 14:01:51 07/25/19 24 07/25/2023 COMPL ETE BLOOD COUNT W/DIF F absolute basophil count 0.04 10_3/ uL 0.0-0. 2 normal Not Available [address] [place], [address] 07/25/2023 14:01:51 07/25/19 24 07/25/2023 VENOU S BLOOD GAS pH (venous) 7.33 7.31-7 .41 normal Not Available [address] [place], [address] 07/25/2023 14:01:53 07/25/19 24 07/25/2023 VENOU S BLOOD GAS pCO2 (venous) 65 mmHg 41-51 panic high ABIGA IL MEHDI [facility]KA [facility] ritic al value repor addie to and readb ack from [] at 1358 07/24 by LAB.C AMS Not Available [address] [place], [address] 07/25/2023 14:01:53 07/25/19 24 07/25/2023 VENOU S BLOOD GAS pO2 (venous) 34 mmHg Not Available [address] [place], [address] 07/25/2023 14:01:53 07/25/19 24 07/25/2023 VENOU S BLOOD GAS TCO2 (venous) 31 mmol/ L 24-29 high Not Available [address] [place], [address] 07/25/2023 14:01:53 07/25/19 24 07/25/2023 VENOU S BLOOD GAS HCO3 (venous) 34 mmol/ L 23-28 high Not Available [address] [place], [address] 07/25/2023 14:01:53 07/25/19 24 07/25/2023 VENOU S BLOOD GAS BE (venous) 8 mmol/ L -2-3 high Not Available [address] [place], [address] 07/25/2023 14:01:53 07/25/19 24 07/25/2023 VENOU S BLOOD GAS O2 sat (venous) 72 % Not Available [address], [address] 07/25/2023 14:01:53 07/25/19 24 07/25/2023 LACTA TE lactate 0.7 mmol/ L 0.6-1. 4 normal Not Available [address] [place], [address] 07/25/2023 14:01:54 07/25/19 24 07/25/2023 NT-AR OBNP nt-probnp 345 pg/mL <300 high NT-pr oBNP value s <300 pg/mL have a 98% negat prachi predi ctive value for exclu ding acute conge stive heart failu re (CHF) . NT-pr oBNP value s >450 pg/mL are consi stent with CHF in adult s <50 years of age. A diagn ostic cut-o ff of 900 pg/mL has been sugge sted in adult s >50 years of age in the absen ce of renal failu re. A cut-o ff of 1200 pg/mL for patie nts with an eGFR less than 60 yield s a diagn ostic sensi tivit y and speci ficit y of 89% and 72% for acute conge stive failu re. NOTE: Supra -phys iolog ic doses of Bioti n(B7) may cause false negat prachi resul ts. Not Available [address] [place], [address] 07/25/2023 14:25:58 07/25/19 24 07/25/2023 COMPR EHENS PRACHI METAB OLIC PANEL calcium 9.9 mg/dL 8.5-10 .1 normal Not Available [address] [place], [address] 07/25/2023 14:25:59 07/25/19 24 07/25/2023 COMPR EHENS PRACHI METAB OLIC PANEL glucose 162 mg/dL 74-106 high Not Available Leona [address] [place], [address] 07/25/2023 14:25:59 07/25/19 24 07/25/2023 COMPR EHENS PRACHI METAB OLIC PANEL BUN 9 mg/dL 7-18 normal Not Available Leona [address] [place], [address] 07/25/2023 14:25:59 07/25/19 24 07/25/2023 COMPR EHENS PRACHI METAB OLIC PANEL creatinine 0.7 mg/dL 0.55-1 .02 normal Not Available [address] [place], [address] 07/25/2023 14:25:59 07/25/19 24 07/25/2023 COMPR EHENS PRACHI METAB OLIC PANEL estimated GFR 102.71 mL/min /1.73m 2 The eGFR is calcu lated from a serum creat inine using the CKD-E PI 2020 equat ion. Other varia bles requi red for the equat ion are gende r and age; this equat ion does not inclu de a race coeff icien t. This equat ion has simil ar overa ll perfo rmanc e to previ ous equat ions excep t value s may diffe r, in parti cular , in patie nts with highe r value s of eGFR and young er-ag ed adult s. Not Available [address] [place], [address] 07/25/2023 14:25:59 07/25/19 24 07/25/2023 COMPR EHENS PRACHI METAB OLIC PANEL total protein 7.2 g/dL 6.4-8. 2 normal Not Available [address] [place], [address] 07/25/2023 14:25:59 07/25/19 24 07/25/2023 COMPR EHENS PRACHI METAB OLIC PANEL albumin 2.7 g/dL 3.4-5. 0 low Not Available [address] [place], [address] 07/25/2023 14:25:59 07/25/19 24 07/25/2023 COMPR EHENS PRACHI METAB OLIC PANEL bilirubin, total 0.6 mg/dL 0.2-1. 0 normal Not Available [address] [place], [address] 07/25/2023 14:25:59 07/25/19 24 07/25/2023 COMPR EHENS PRACHI METAB OLIC PANEL alk phos 71 U/L 46-116 normal Not Available [address] [place], [address] 07/25/2023 14:25:59 07/25/19 24 07/25/2023 COMPR EHENS PRACHI METAB OLIC PANEL sodium 137 mmol/ L 136-14 5 normal Not Available [address] [place], [address] 07/25/2023 14:25:59 07/25/19 24 07/25/2023 COMPR EHENS PRACHI METAB OLIC PANEL potassium 4.3 mmol/ L 3.5-5. 1 normal Not Available [address] [place], [address] 07/25/2023 14:25:59 07/25/19 24 07/25/2023 COMPR EHENS PRACHI METAB OLIC PANEL chloride 99 mmol/ L 98-107 normal Not Available [address] [place], [address] 07/25/2023 14:25:59 07/25/19 24 07/25/2023 COMPR EHENS PRACHI METAB OLIC PANEL CO2 34.3 mmol/ L 21.0-3 2.0 high Not Available [address] [place], [address] 07/25/2023 14:25:59 07/25/19 24 07/25/2023 COMPR EHENS PRACHI METAB OLIC PANEL anion gap 3.7 mmol/ L 3-11 normal Not Available [address] [place], [address] 07/25/2023 14:25:59 07/25/19 24 07/25/2023 COMPR EHENS PRACHI METAB OLIC PANEL AST 13 U/L 15-37 low Not Available [address] [place], [address] 07/25/2023 14:25:59 07/25/19 24 07/25/2023 COMPR EHENS PRACHI METAB OLIC PANEL ALT 15 U/L 14-59 normal Not Available [address] [place], [address] 07/25/2023 14:25:59 07/25/19 24 07/25/2023 C-BETSY CTIVE PROTE IN C-reactive protein 8.53 mg/dL <or=0. 5 high Not Available [address] [place], [address] 07/25/2023 14:26:00 07/25/19 24 07/25/2023 TROPO SHALOM I troponin I < 50 NG/L < or =60 Not Available [address] [place], [address] 07/25/2023 14:26:01 07/25/19 24 07/25/2023 LACTA TE lactate 0.7 mmol/ L 0.6-1. 4 normal Not Available [address] [place], [address] 07/25/2023 14:39:56 07/25/19 24 07/25/2023 PROCA LCITO SHALOM procalcitoni n < 0.1 NG/mL PCT Value (ng/m L): Inter preta tion: <0.5 Low risk for sever e sepsi s/sep tic shock >or=0 .5 and <2.0 Sever e sepsi s/sep tic shock is possi ble >or=2 .0 High risk for sever e sepsi s/sep tic shock Note: Decis ions regar ding antib iotic thera py shoul d NOT be based solel y on proca lcito shalom nba ntrat ions. A proca lcito shalom nba ntrat ion of <0.5 ng/mL does not entir geetha exclu de syste joy bacte rial infec tion/ sepsi s. Corre latio n with the full clini sabine, imagi ng, and labor atory findi ngs is requi red for a compl ete sepsi s evalu ation . Addit ional ly, eleva addie proca lcito shalom nba ntrat ions may not alway s be relat ed to syste joy bacte rial infec tion and can be seen in the setti ng of sever e franks , major traum a, major surge ry, pancr eatit is, bowel ische portia, asept ic syste joy shock (anap hylac tic, hemor rhagi c, or cardi ogeni c), renal insuf ficie ncy, medul mamta thyro id cance r, small cell lung cance r, drugs stimu latin g pro-i nflam mator y cytok koby, invas prachi funga l infec tions , Kawas nicholas disea se, among other cause s. Not Available [address] [facility] [place], [address] 07/25/2023 14:39:57 07/25/19 24 07/25/2023 URINA LYSIS color Yellow yellow Not Available Leona dahl [address] [place], [address] 07/25/2023 20:54:41 07/25/19 24 07/25/2023 URINA LYSIS clarity Clear clear Not Available Leona dahl [address] [place], [address] 07/25/2023 20:54:41 07/25/19 24 07/25/2023 URINA LYSIS specific gravity 1.020 1.005- 1.025 normal Not Available [address] [place], [address] 07/25/2023 20:54:41 07/25/19 24 07/25/2023 URINA LYSIS pH 6.0 5-8 normal Not Available Leona dahl [address] [place], [address] 07/25/2023 20:54:41 07/25/19 24 07/25/2023 URINA LYSIS leukocyte esterase Negati ve negati ve Not Available [address] [place], [address] 07/25/2023 20:54:41 07/25/19 24 07/25/2023 URINA LYSIS nitrite Negati ve negati ve Not Available [address] [place], [address] 07/25/2023 20:54:41 07/25/19 24 07/25/2023 URINA LYSIS protein 100 mg/dL neg-tr andres abnormal Not Available [address] [place], [address] 07/25/2023 20:54:41 07/25/19 24 07/25/2023 URINA LYSIS glucose Negati ve mg/dL negati ve Not Available [address] [place], [address] 07/25/2023 20:54:41 07/25/19 24 07/25/2023 URINA LYSIS ketones Negati ve mg/dL negati ve Not Available [address] [place], [address] 07/25/2023 20:54:41 07/25/19 24 07/25/2023 URINA LYSIS urobilinogen 1.0 mg/dL up to 0.2 abnormal Not Available [address] [place], [address] 07/25/2023 20:54:41 07/25/19 24 07/25/2023 URINA LYSIS bilirubin Negati ve negati ve Not Available [address] [place], [address] 07/25/2023 20:54:41 07/25/19 24 07/25/2023 URINA LYSIS blood Large negati ve abnormal Not Available [address] [place], [address] 07/25/2023 20:54:41 07/25/19 24 07/25/2023 URINA LYSIS color Yellow yellow Not Available Leona dahl [address] [place], [address] 07/25/2023 20:56:41 07/25/19 24 07/25/2023 URINA LYSIS clarity Clear clear Not Available Leona dahl [address] [place], [address] 07/25/2023 20:56:41 07/25/19 24 07/25/2023 URINA LYSIS specific gravity 1.020 1.005- 1.025 normal Not Available [address] [place], [address] 07/25/2023 20:56:41 07/25/19 24 07/25/2023 URINA LYSIS pH 6.0 5-8 normal Not Available Leona dahl [address] [place], [address] 07/25/2023 20:56:41 07/25/19 24 07/25/2023 URINA LYSIS leukocyte esterase Negati ve negati ve Not Available [address] [place], [address] 07/25/2023 20:56:41 07/25/19 24 07/25/2023 URINA LYSIS nitrite Negati ve negati ve Not Available [address] [place], [address] 07/25/2023 20:56:41 07/25/19 24 07/25/2023 URINA LYSIS protein 100 mg/dL neg-tr andres abnormal Not Available [address] [place], [address] 07/25/2023 20:56:41 07/25/19 24 07/25/2023 URINA LYSIS glucose Negati ve mg/dL negati ve Not Available [address] [place], [address] 07/25/2023 20:56:41 07/25/19 24 07/25/2023 URINA LYSIS ketones Negati ve mg/dL negati ve Not Available [address] [place], [address] 07/25/2023 20:56:41 07/25/19 24 07/25/2023 URINA LYSIS urobilinogen 1.0 mg/dL up to 0.2 abnormal Not Available [address] [place], [address] 07/25/2023 20:56:41 07/25/19 24 07/25/2023 URINA LYSIS bilirubin Negati ve negati ve Not Available [address] [place], [address] 07/25/2023 20:56:41 07/25/19 24 07/25/2023 URINA LYSIS blood Large negati ve abnormal Not Available [address] [place], [address] 07/25/2023 20:56:41 07/25/19 24 07/25/2023 MICRO SCOPI C FINDI NGS WBC Negati ve hpf 0-5 Not Available [address] [place], [address] 07/25/2023 20:56:42 07/25/19 24 07/25/2023 MICRO SCOPI C FINDI NGS RBC >50 hpf 0-2 abnormal Not Available [address] [place], [address] 07/25/2023 20:56:42 07/25/19 24 07/25/2023 MICRO SCOPI C FINDI NGS epithelial cells Rare hpf negati ve Not Available [address] [place], [address] 07/25/2023 20:56:42 07/25/19 24 07/25/2023 MICRO SCOPI C FINDI NGS bacteria Rare hpf negati ve Not Available [address] [place], [address] 07/25/2023 20:56:42 07/25/19 24 07/25/2023 MICRO SCOPI C FINDI NGS crystals Negati ve hpf negati ve Not Available [address] [place], [address] 07/25/2023 20:56:42 07/25/19 24 07/25/2023 MICRO SCOPI C FINDI NGS mucus Negati ve negati ve Not Available [address] [place], [address] 07/25/2023 20:56:42 07/25/19 24 07/25/2023 MICRO SCOPI C FINDI NGS casts Negati ve lpf negati ve Not Available [address] [place], [address] 07/25/2023 20:56:42 07/25/19 24 07/25/2023 MICRO SCOPI C FINDI NGS C S indicated? No Not Available [address] [place], [address] 07/25/2023 20:56:42 07/25/19 24 07/25/2023 MRSA PCR MRSA PCR Negati ve negati ve Not Available [address] [place], [address] 07/25/2023 23:56:54 07/25/19 24 07/26/2023 BLOOD CULTU RE ( AGE => 9 YRS) blood culture ( age => 9 yrs) Blood Cultu re ( Age => 9 Yrs) NO GROWT H 24 HOURS Not Available [address] [place], [address] 07/26/2023 15:55:25 07/25/19 24 07/26/2023 BLOOD CULTU RE ( AGE => 9 YRS) blood culture ( age => 9 yrs) Blood Cultu re ( Age => 9 Yrs) NO GROWT H 24 HOURS Not Available [address] [place], [address] 07/26/2023 18:38:34 07/25/19 24 07/27/2023 BLOOD CULTU RE ( AGE => 9 YRS) blood culture ( age => 9 yrs) Blood Cultu re ( Age => 9 Yrs) NO GROWT H 48 HOURS Not Available [address] [place], [address] 07/27/2023 15:57:28 07/25/19 24 07/27/2023 BLOOD CULTU RE ( AGE => 9 YRS) blood culture ( age => 9 yrs) Blood Cultu re ( Age => 9 Yrs) NO GROWT H 48 HOURS Not Available [address] [place], [address] 07/27/2023 18:39:39 07/25/19 24 07/28/2023 BLOOD CULTU RE ( AGE => 9 YRS) blood culture ( age => 9 yrs) Blood Cultu re ( Age => 9 Yrs) NO GROWT H 72 HOURS Not Available [address] [place], [address] 07/28/2023 15:56:49 07/25/19 24 07/28/2023 BLOOD CULTU RE ( AGE => 9 YRS) blood culture ( age => 9 yrs) Blood Cultu re ( Age => 9 Yrs) NO GROWT H 72 HOURS Not Available [address] [place], [address] 07/28/2023 18:40:20 07/25/19 24 07/29/2023 BLOOD CULTU RE ( AGE => 9 YRS) blood culture ( age => 9 yrs) Blood Cultu re ( Age => 9 Yrs) NO GROWT H 96 HOURS Not Available [address] [place], [address] 07/29/2023 15:56:21 07/25/19 24 07/29/2023 BLOOD CULTU RE ( AGE => 9 YRS) blood culture ( age => 9 yrs) Blood Cultu re ( Age => 9 Yrs) NO GROWT H 96 HOURS Not Available [address] [place], [address] 07/29/2023 18:40:41 07/25/19 24 07/30/2023 BLOOD CULTU RE ( AGE => 9 YRS) blood culture ( age => 9 yrs) Blood Cultu re ( Age => 9 Yrs) NO GROWT H 120 HOURS Not Available [address] [place], [address] 07/30/2023 15:55:20 07/25/19 24 07/30/2023 BLOOD CULTU RE ( AGE => 9 YRS) blood culture ( age => 9 yrs) Blood Cultu re ( Age => 9 Yrs) NO GROWT H 120 HOURS Not Available [address] [place], [address] 07/30/2023 18:39:49 07/26/19 24 07/26/2023 COMPL ETE BLOOD COUNT W/DIF F WBC 6.15 10_3/ uL 4.4-10 .8 normal Not Available [address] [place], [address] 07/26/2023 06:33:54 07/26/19 24 07/26/2023 COMPL ETE BLOOD COUNT W/DIF F RBC 4.40 10_6/ uL 3.93-5 .22 normal Not Available [address] [place], [address] 07/26/2023 06:33:54 07/26/19 24 07/26/2023 COMPL ETE BLOOD COUNT W/DIF F HGB 12.8 g/dL 11.2-1 5.7 normal Not Available [address] [place], [address] 07/26/2023 06:33:54 07/26/19 24 07/26/2023 COMPL ETE BLOOD COUNT W/DIF F HCT 40.8 % 36.0-4 6.0 normal Not Available [address] [place], [address] 07/26/2023 06:33:54 07/26/19 24 07/26/2023 COMPL ETE BLOOD COUNT W/DIF F MCV 93 fL 80-95 normal Not Available Leona dahl [address] [place], [address] 07/26/2023 06:33:54 07/26/19 24 07/26/2023 COMPL ETE BLOOD COUNT W/DIF F MCH 29.1 pg 27.0-3 3.0 normal Not Available [address] [place], [address] 07/26/2023 06:33:54 07/26/19 24 07/26/2023 COMPL ETE BLOOD COUNT W/DIF F MCHC 31.4 % 32.0-3 6.0 low Not Available [address] [place], [address] 07/26/2023 06:33:54 07/26/1907/26/2023 COMPL ETE BLOOD COUNT W/DIF F RDW 14.2 % 11.7-1 4.6 normal Not Available [address] [place], [address] 07/26/2023 06:33:54 07/26/19 24 07/26/2023 COMPL ETE BLOOD COUNT W/DIF F platelet count 214 10_3/ uL 130-40 0 normal Not Available [address] [place], [address] 07/26/2023 06:33:54 07/26/19 24 07/26/2023 COMPL ETE BLOOD COUNT W/DIF F MPV 9.2 fL 8.0-11 .0 normal Not Available [address] [place], [address] 07/26/2023 06:33:54 07/26/19 24 07/26/2023 COMPL ETE BLOOD COUNT W/DIF F neutrophils % 77.7 % Not Available [address], [address] 07/26/2023 06:33:54 07/26/19 24 07/26/2023 COMPL ETE BLOOD COUNT W/DIF F lymphocytes % 15.0 % Not Available [address] [place], [address] 07/26/2023 06:33:54 07/26/19 24 07/26/2023 COMPL ETE BLOOD COUNT W/DIF F monocytes % 6.2 % Not Available [address] [place], [address] 07/26/2023 06:33:54 07/26/19 24 07/26/2023 COMPL ETE BLOOD COUNT W/DIF F eosinophils % 0.0 % Not Available [address] [place], [address] 07/26/2023 06:33:54 07/26/19 24 07/26/2023 COMPL ETE BLOOD COUNT W/DIF F basophils % 0.3 % Not Available [address] [place], [address] 07/26/2023 06:33:54 07/26/19 24 07/26/2023 COMPL ETE BLOOD COUNT W/DIF F immature grans % 0.8 % Not Available [address] [place], [address] 07/26/2023 06:33:54 07/26/19 24 07/26/2023 COMPL ETE BLOOD COUNT W/DIF F nucleated RBC 0.0 % 0.0-0. 3 normal Not Available [address] [place], [address] 07/26/2023 06:33:54 07/26/19 24 07/26/2023 COMPL ETE BLOOD COUNT W/DIF F absolute neutrophil count 4.78 10_3/ uL 1.2-6. 7 normal Not Available [address] [place], [address] 07/26/2023 06:33:54 07/26/19 24 07/26/2023 COMPL ETE BLOOD COUNT W/DIF F absolute lymphocyte count 0.92 10_3/ uL 1.2-3. 4 low Not Available [address] [place], [address] 07/26/2023 06:33:54 07/26/19 24 07/26/2023 COMPL ETE BLOOD COUNT W/DIF F absolute monocyte count 0.38 10_3/ uL 0.1-0. 8 normal Not Available [address] [place], [address] 07/26/2023 06:33:54 07/26/19 24 07/26/2023 COMPL ETE BLOOD COUNT W/DIF F absolute eosinophil count 0.00 10_3/ uL 0.0-0. 7 normal Not Available [address] [place], [address] 07/26/2023 06:33:54 07/26/19 24 07/26/2023 COMPL ETE BLOOD COUNT W/DIF F absolute basophil count 0.02 10_3/ uL 0.0-0. 2 normal Not Available [address] [place], [address] 07/26/2023 06:33:54 07/26/19 24 07/26/2023 BASIC METAB OLIC PANEL calcium 9.6 mg/dL 8.5-10 .1 normal Not Available [address] [place], [address] 07/26/2023 06:47:54 07/26/19 24 07/26/2023 BASIC METAB OLIC PANEL glucose 244 mg/dL 74-106 high Not Available Leona dahl [address] [place], [address] 07/26/2023 06:47:54 07/26/19 24 07/26/2023 BASIC METAB OLIC PANEL BUN 12 mg/dL 7-18 normal Not Available Leona dahl [address] [place], [address] 07/26/2023 06:47:54 07/26/19 24 07/26/2023 BASIC METAB OLIC PANEL creatinine 0.6 mg/dL 0.55-1 .02 normal Not Available [address] [place], [address] 07/26/2023 06:47:54 07/26/19 24 07/26/2023 BASIC METAB OLIC PANEL estimated GFR 106.60 mL/min /1.73m 2 The eGFR is calcu lated from a serum creat inine using the CKD-E PI 2020 equat ion. Other varia bles requi red for the equat ion are gende r and age; this equat ion does not inclu de a race coeff icien t. This equat ion has simil ar overa ll perfo rmanc e to previ ous equat ions excep t value s may diffe r, in parti cular , in patie nts with highe r value s of eGFR and young er-ag ed adult s. Not Available [address] [place], [address] 07/26/2023 06:47:54 07/26/19 24 07/26/2023 BASIC METAB OLIC PANEL sodium 140 mmol/ L 136-14 5 normal Not Available [address] [place], [address] 07/26/2023 06:47:54 07/26/19 24 07/26/2023 BASIC METAB OLIC PANEL potassium 4.1 mmol/ L 3.5-5. 1 normal Not Available [address] [place], [address] 07/26/2023 06:47:54 07/26/19 24 07/26/2023 BASIC METAB OLIC PANEL chloride 101 mmol/ L 98-107 normal Not Available [address] [place], [address] 07/26/2023 06:47:54 07/26/19 24 07/26/2023 BASIC METAB OLIC PANEL CO2 31.8 mmol/ L 21.0-3 2.0 normal Not Available [address] [place], [address] 07/26/2023 06:47:54 07/26/19 24 07/26/2023 BASIC METAB OLIC PANEL anion gap 7.2 mmol/ L 3-11 normal Not Available [address] [place], [address] 07/26/2023 06:47:54 07/26/19 24 07/26/2023 MAGNE SIUM magnesium 1.6 mg/dL 1.8-2. 4 low Not Available [address] [place], [address] 07/26/2023 06:47:55 07/26/19 24 07/26/2023 GRAM STAIN gram stain Gram Stain GRAM STAIN (REPO RT) Rare White Blood Cells No Bacte shauna Seen Not Available [address] [place], [address] 07/26/2023 11:41:09 07/26/19 24 07/29/2023 WOUND AEROB IC CULTU RE wound aerobic culture Wound Aerob ic Cultu re APPEA ZINA Gram Posit prachi Roxana APPEA ZINA Rosa l Roxana APPEA ZINA Rosa l Roxana GROWT H(REP ORT) RARE GROWT H GROWT H(REP ORT) RARE GROWT H GROWT H(REP ORT) RARE GROWT H Day 1 Resul t ISOLA PATRICIA BELOW Day 2 Resul t ISOLA PATRICIA BELOW Day 3 Resul t ISOLA PATRICIA BELOW O:NF (ORGA NISM ID: [id number]) - ROSA L ROXANA Wound Aerob ic Cultu re (ORGA NISM ID: 1.1) - GROWT H(REP ORT) (ORGA NISM ID: 1.1) - RARE GROWT H Not Available [address] [place], [address] 07/29/2023 09:52:22 07/27/19 24 07/27/2023 COMPL ETE BLOOD COUNT W/DIF F WBC 7.68 10_3/ uL 4.4-10 .8 normal Not Available [address] [place], [address] 07/27/2023 11:32:02 07/27/19 24 07/27/2023 COMPL ETE BLOOD COUNT W/DIF F RBC 4.11 10_6/ uL 3.93-5 .22 normal Not Available [address] [place], [address] 07/27/2023 11:32:02 07/27/19 24 07/27/2023 COMPL ETE BLOOD COUNT W/DIF F HGB 11.9 g/dL 11.2-1 5.7 normal Not Available [address] [place], [address] 07/27/2023 11:32:02 07/27/19 24 07/27/2023 COMPL ETE BLOOD COUNT W/DIF F HCT 37.9 % 36.0-4 6.0 normal Not Available [address] [place], [address] 07/27/2023 11:32:02 07/27/19 24 07/27/2023 COMPL ETE BLOOD COUNT W/DIF F MCV 92 fL 80-95 normal Not Available Leona dahl [address] [place], [address] 07/27/2023 11:32:02 07/27/19 24 07/27/2023 COMPL ETE BLOOD COUNT W/DIF F MCH 29.0 pg 27.0-3 3.0 normal Not Available [address] [place], [address] 07/27/2023 11:32:02 07/27/19 24 07/27/2023 COMPL ETE BLOOD COUNT W/DIF F MCHC 31.4 % 32.0-3 6.0 low Not Available [address] [place], [address] 07/27/2023 11:32:02 07/27/19 24 07/27/2023 COMPL ETE BLOOD COUNT W/DIF F RDW 13.9 % 11.7-1 4.6 normal Not Available [address] [place], [address] 07/27/2023 11:32:02 07/27/19 24 07/27/2023 COMPL ETE BLOOD COUNT W/DIF F platelet count 236 10_3/ uL 130-40 0 normal Not Available [address] [place], [address] 07/27/2023 11:32:02 07/27/19 24 07/27/2023 COMPL ETE BLOOD COUNT W/DIF F MPV 9.4 fL 8.0-11 .0 normal Not Available [address] [place], [address] 07/27/2023 11:32:02 07/27/19 24 07/27/2023 COMPL ETE BLOOD COUNT W/DIF F neutrophils % 63.6 % Not Available [address], [address] 07/27/2023 11:32:02 07/27/19 24 07/27/2023 COMPL ETE BLOOD COUNT W/DIF F lymphocytes % 25.4 % Not Available [address], [address] 07/27/2023 11:32:02 07/27/19 24 07/27/2023 COMPL ETE BLOOD COUNT W/DIF F monocytes % 10.4 % Not Available [address], [address] 07/27/2023 11:32:02 07/27/19 24 07/27/2023 COMPL ETE BLOOD COUNT W/DIF F eosinophils % 0.0 % Not Available [address] [place], [address] 07/27/2023 11:32:02 07/27/19 24 07/27/2023 COMPL ETE BLOOD COUNT W/DIF F basophils % 0.1 % Not Available [address], [address] 07/27/2023 11:32:02 07/27/19 24 07/27/2023 COMPL ETE BLOOD COUNT W/DIF F immature grans % 0.5 % Not Available [address] [place], [address] 07/27/2023 11:32:02 07/27/19 24 07/27/2023 COMPL ETE BLOOD COUNT W/DIF F nucleated RBC 0.0 % 0.0-0. 3 normal Not Available [address] [place], [address] 07/27/2023 11:32:02 07/27/19 24 07/27/2023 COMPL ETE BLOOD COUNT W/DIF F absolute neutrophil count 4.88 10_3/ uL 1.2-6. 7 normal Not Available [address] [place], [address] 07/27/2023 11:32:02 07/27/19 24 07/27/2023 COMPL ETE BLOOD COUNT W/DIF F absolute lymphocyte count 1.95 10_3/ uL 1.2-3. 4 normal Not Available [address] [place], [address] 07/27/2023 11:32:02 07/27/19 24 07/27/2023 COMPL ETE BLOOD COUNT W/DIF F absolute monocyte count 0.80 10_3/ uL 0.1-0. 8 normal Not Available [address] [place], [address] 07/27/2023 11:32:02 07/27/19 24 07/27/2023 COMPL ETE BLOOD COUNT W/DIF F absolute eosinophil count 0.00 10_3/ uL 0.0-0. 7 normal Not Available [address] [place], [address] 07/27/2023 11:32:02 07/27/19 24 07/27/2023 COMPL ETE BLOOD COUNT W/DIF F absolute basophil count 0.01 10_3/ uL 0.0-0. 2 normal Not Available [address] [place], [address] 07/27/2023 11:32:02 07/27/19 24 07/27/2023 BASIC METAB OLIC PANEL calcium 9.4 mg/dL 8.5-10 .1 normal Not Available [address] [place], [address] 07/27/2023 11:32:04 07/27/19 24 07/27/2023 BASIC METAB OLIC PANEL glucose 172 mg/dL 74-106 high Not Available Leona dahl [address] [place], [address] 07/27/2023 11:32:04 07/27/19 24 07/27/2023 BASIC METAB OLIC PANEL BUN 13 mg/dL 7-18 normal Not Available Leona dahl [address] [place], [address] 07/27/2023 11:32:04 07/27/19 24 07/27/2023 BASIC METAB OLIC PANEL creatinine 0.6 mg/dL 0.55-1 .02 normal Not Available [address] [place], [address] 07/27/2023 11:32:04 07/27/19 24 07/27/2023 BASIC METAB OLIC PANEL estimated GFR 106.60 mL/min /1.73m 2 The eGFR is calcu lated from a serum creat inine using the CKD-E PI 2020 equat ion. Other varia bles requi red for the equat ion are gende r and age; this equat ion does not inclu de a race coeff icien t. This equat ion has simil ar overa ll perfo rmanc e to previ ous equat ions excep t value s may diffe r, in parti cular , in patie nts with highe r value s of eGFR and young er-ag ed adult s. Not Available [address] [place], [address] 07/27/2023 11:32:04 07/27/19 24 07/27/2023 BASIC METAB OLIC PANEL sodium 142 mmol/ L 136-14 5 normal Not Available [address] [place], [address] 07/27/2023 11:32:04 07/27/19 24 07/27/2023 BASIC METAB OLIC PANEL potassium 3.9 mmol/ L 3.5-5. 1 normal Not Available [address] [place], [address] 07/27/2023 11:32:04 07/27/19 24 07/27/2023 BASIC METAB OLIC PANEL chloride 103 mmol/ L 98-107 normal Not Available [address] [place], [address] 07/27/2023 11:32:04 07/27/19 24 07/27/2023 BASIC METAB OLIC PANEL CO2 33.9 mmol/ L 21.0-3 2.0 high Not Available [address] [place], [address] 07/27/2023 11:32:04 07/27/19 24 07/27/2023 BASIC METAB OLIC PANEL anion gap 5.1 mmol/ L 3-11 normal Not Available [address] [place], [address] 07/27/2023 11:32:04 07/27/19 24 07/27/2023 MAGNE SIUM magnesium 1.8 mg/dL 1.8-2. 4 normal Not Available [address] [place], [address] 07/27/2023 11:32:05 07/28/19 24 07/28/2023 COMPL ETE BLOOD COUNT W/DIF F WBC 6.94 10_3/ uL 4.4-10 .8 normal Not Available [address] [place], [address] 07/28/2023 07:31:16 07/28/19 24 07/28/2023 COMPL ETE BLOOD COUNT W/DIF F RBC 4.44 10_6/ uL 3.93-5 .22 normal Not Available [address] [place], [address] 07/28/2023 07:31:16 07/28/19 24 07/28/2023 COMPL ETE BLOOD COUNT W/DIF F HGB 13.0 g/dL 11.2-1 5.7 normal Not Available [address] [place], [address] 07/28/2023 07:31:16 07/28/19 24 07/28/2023 COMPL ETE BLOOD COUNT W/DIF F HCT 40.9 % 36.0-4 6.0 normal Not Available [address] [place], [address] 07/28/2023 07:31:16 07/28/19 24 07/28/2023 COMPL ETE BLOOD COUNT W/DIF F MCV 92 fL 80-95 normal Not Available [address] [place], [address] 07/28/2023 07:31:16 07/28/19 24 07/28/2023 COMPL ETE BLOOD COUNT W/DIF F MCH 29.3 pg 27.0-3 3.0 normal Not Available [address] [place], [address] 07/28/2023 07:31:16 07/28/19 24 07/28/2023 COMPL ETE BLOOD COUNT W/DIF F MCHC 31.8 % 32.0-3 6.0 low Not Available [address] [place], [address] 07/28/2023 07:31:16 07/28/19 24 07/28/2023 COMPL ETE BLOOD COUNT W/DIF F RDW 13.9 % 11.7-1 4.6 normal Not Available [address] [place], [address] 07/28/2023 07:31:16 07/28/19 24 07/28/2023 COMPL ETE BLOOD COUNT W/DIF F platelet count 241 10_3/ uL 130-40 0 normal Not Available [address] [place], [address] 07/28/2023 07:31:16 07/28/19 24 07/28/2023 COMPL ETE BLOOD COUNT W/DIF F MPV 8.9 fL 8.0-11 .0 normal Not Available [address] [place], [address] 07/28/2023 07:31:16 07/28/19 24 07/28/2023 COMPL ETE BLOOD COUNT W/DIF F neutrophils % 54.2 % Not Available [address] [place], [address] 07/28/2023 07:31:16 07/28/19 24 07/28/2023 COMPL ETE BLOOD COUNT W/DIF F lymphocytes % 33.9 % Not Available [address] [place], [address] 07/28/2023 07:31:16 07/28/19 24 07/28/2023 COMPL ETE BLOOD COUNT W/DIF F monocytes % 10.4 % Not Available [address] [place], [address] 07/28/2023 07:31:16 07/28/19 24 07/28/2023 COMPL ETE BLOOD COUNT W/DIF F eosinophils % 0.0 % Not Available [address] [place], [address] 07/28/2023 07:31:16 07/28/19 24 07/28/2023 COMPL ETE BLOOD COUNT W/DIF F basophils % 0.3 % Not Available [address] [place], [address] 07/28/2023 07:31:16 07/28/19 24 07/28/2023 COMPL ETE BLOOD COUNT W/DIF F immature grans % 1.2 % Not Available [address] [place], [address] 07/28/2023 07:31:16 07/28/19 24 07/28/2023 COMPL ETE BLOOD COUNT W/DIF F nucleated RBC 0.0 % 0.0-0. 3 normal Not Available [address] [place], [address] 07/28/2023 07:31:16 07/28/19 24 07/28/2023 COMPL ETE BLOOD COUNT W/DIF F absolute neutrophil count 3.77 10_3/ uL 1.2-6. 7 normal Not Available [address] [place], [address] 07/28/2023 07:31:16 07/28/19 24 07/28/2023 COMPL ETE BLOOD COUNT W/DIF F absolute lymphocyte count 2.35 10_3/ uL 1.2-3. 4 normal Not Available [address] [place], [address] 07/28/2023 07:31:16 07/28/19 24 07/28/2023 COMPL ETE BLOOD COUNT W/DIF F absolute monocyte count 0.72 10_3/ uL 0.1-0. 8 normal Not Available [address] [place], [address] 07/28/2023 07:31:16 07/28/19 24 07/28/2023 COMPL ETE BLOOD COUNT W/DIF F absolute eosinophil count 0.00 10_3/ uL 0.0-0. 7 normal Not Available [address] [place], [address] 07/28/2023 07:31:16 07/28/19 24 07/28/2023 COMPL ETE BLOOD COUNT W/DIF F absolute basophil count 0.02 10_3/ uL 0.0-0. 2 normal Not Available [address] [place], [address] 07/28/2023 07:31:16 07/28/19 24 07/28/2023 BASIC METAB OLIC PANEL calcium 10.1 mg/dL 8.5-10 .1 normal Not Available [address] [place], [address] 07/28/2023 07:53:07 07/28/19 24 07/28/2023 BASIC METAB OLIC PANEL glucose 164 mg/dL 74-106 high Not Available Leona [address] [place], [address] 07/28/2023 07:53:07 07/28/19 24 07/28/2023 BASIC METAB OLIC PANEL BUN 13 mg/dL 7-18 normal Not Available Leona dahl [address] [place], [address] 07/28/2023 07:53:07 07/28/19 24 07/28/2023 BASIC METAB OLIC PANEL creatinine 0.6 mg/dL 0.55-1 .02 normal Not Available [address] [place], [address] 07/28/2023 07:53:07 07/28/19 24 07/28/2023 BASIC METAB OLIC PANEL estimated GFR 106.60 mL/min /1.73m 2 The eGFR is calcu lated from a serum creat inine using the CKD-E PI 2020 equat ion. Other varia bles requi red for the equat ion are gende r and age; this equat ion does not inclu de a race coeff icien t. This equat ion has simil ar overa ll perfo rmanc e to previ ous equat ions excep t value s may diffe r, in parti cular , in patie nts with highe r value s of eGFR and young er-ag ed adult s. Not Available [address] [place], [address] 07/28/2023 07:53:07 07/28/19 24 07/28/2023 BASIC METAB OLIC PANEL sodium 141 mmol/ L 136-14 5 normal Not Available [address] [place], [address] 07/28/2023 07:53:07 07/28/19 24 07/28/2023 BASIC METAB OLIC PANEL potassium 4.1 mmol/ L 3.5-5. 1 normal Not Available [address] [place], [address] 07/28/2023 07:53:07 07/28/19 24 07/28/2023 BASIC METAB OLIC PANEL chloride 100 mmol/ L 98-107 normal Not Available [address] [place], [address] 07/28/2023 07:53:07 07/28/19 24 07/28/2023 BASIC METAB OLIC PANEL CO2 33.9 mmol/ L 21.0-3 2.0 high Not Available [facility] [address] [place], [address] 07/28/2023 07:53:07 07/28/19 24 07/28/2023 BASIC METAB OLIC PANEL anion gap 7.1 mmol/ L 3-11 normal Not Available [facility] [address] [facility] [place], [address] 07/28/2023 07:53:07 11/10/19 24 11/10/2023 drug of abuse panel , urine Amphetamines (EVI902): negati ve Not Available [facility] [address] [address], [place], [address], 11/10/2023 09:17:31 11/10/19 24 11/10/2023 drug of abuse panel , urine Barbiturates (BAR): negati ve Not Available [facility] [address] [address], [place], [address], 11/10/2023 09:17:31 11/10/19 24 11/10/2023 drug of abuse panel , urine Buprenorphin e (BUP): negati ve Not Available [facility] [address] [facility] [address], [place], [address], 11/10/2023 09:17:31 11/10/19 24 11/10/2023 drug of abuse panel , urine Benzodiazepi keith (BZO): negati ve Not Available [facility] [address] [facility] [address], [place], [address], 11/10/2023 09:17:31 11/10/19 24 11/10/2023 drug of abuse panel , urine Cocaine (HCL828): negati ve Not Available [facility] [address] [address], [place], [address], 11/10/2023 09:17:31 11/10/19 24 11/10/2023 drug of abuse panel , urine Fentanyl (FYL): negati ve Not Available [facility] [address] [address], [place], [address], 11/10/2023 09:17:31 11/10/19 24 11/10/2023 drug of abuse panel , urine Ecstacy (MDMA): negati ve Not Available [facility] [address] [address], [place], [address], 11/10/2023 09:17:31 11/10/19 24 11/10/2023 drug of abuse panel , urine Methamphetam ine (MET): negati ve Not Available [facility] [address] [address], [place], [address], 11/10/2023 09:17:31 11/10/19 24 11/10/2023 drug of abuse panel , urine Methadone (MTD): negati ve Not Available [facility] [address] [address], [place], [address], 11/10/2023 09:17:31 11/10/19 24 11/10/2023 drug of abuse panel , urine Morphine (MOR): negati ve Not Available [facility] [address] [address], [place], [address], 11/10/2023 09:17:31 11/10/19 24 11/10/2023 drug of abuse panel , urine Oxycodone (OXY): positi ve Not Available [facility] [address] [address], [place], [address], 11/10/2023 09:17:31 11/10/19 24 11/10/2023 drug of abuse panel , urine Phencyclidin e (PCP): negati ve Not Available [facility] [address] [address], [place], [address], 11/10/2023 09:17:31 11/10/19 24 11/10/2023 drug of abuse panel , urine Marijuana (THC): positi ve Not Available [facility] [address] [facility] [address], [place], [address], 11/10/2023 09:17:31 11/10/19 24 11/10/2023 drug of abuse panel , urine Creatinine (Cr): Not Available [facility] [address] [facility] [address], [place], [address], 11/10/2023 09:17:31 11/10/19 24 11/10/2023 drug of abuse panel , urine Oxidants (Ox): Not Available [facility] [address] [facility] [address], [place], [address], 11/10/2023 09:17:31 11/10/19 24 11/10/2023 hemog lobin A1C, finge rstic k hemoglobin A1C 7.1 % <5.7 Not Available [facility] [address] [facility] [address], [place], [address], 11/10/2023 09:16:16 04/27/19 24 04/27/2023 XR, chest Patien t Name: Cathy Laurent A Unit #: [id number] Loc: ER Orderi [facility] er: Accoun t #: [id number] Status : PRE ER Primar y Care Provid er: Corby dahl,Cathi GILLESPIE Date of Exa m: Sex: F : 1970 Age: 52 Exam(s ) PROCED URE INFORM ATION: Exam: XR Chest Exam date and time: 024 12:09 PM Age: 52 years old Clinic al indica tion: Other: Copd exacer bation TECHNI QUE: Imagin g protoc ol: Radiol ogic exam of the chest. Views: 1 view. COMPAR VISHAL: XR PORTAB LE CHEST AP 022 8:45 AM FINDIN GS: Lungs: There are retroc ardiac atelec tasis/ early infilt rates. Pleura l spaces : Blunti ng of bilate ral costop hrenic angle that might be relate d to small effusi ons versus atelec tasis. Heart/ Medias tinum: Mild cardio megaly . Promin ent pulmon escobar artery sugges tive of pulmon escobar hypert ension . Vascul ature: Unfold ing of the thorac ic aorta. Bones/ joints : Modera te degene rative diseas e of the right acromi oclavi cular joint. IMPRES YOEL: Retroc ardiac atelec tasis/ early infilt rates. Dictat ed and Authbrigid alejandra d by: Santosh Montoya. Orderi ng:P.D ISST Kristen reid MD Access ion#=[id number] Orderkevin d By: CC: ------ ------ ------ ------ ------ ------ ------ ------ ------ ------ ------ ------ ---- Dictat ed By: Report s vrad 1209 1234 Transc ribed By: Giana Merge 1209 This is privil eged, confid ential inform ation intend ed only for the provid er named. Any use or distri bution by any person other than this provid er is strict ly prohib ited. If you receiv e this report in error, please notify us immedi ately at and return the origin al report to us at the addres s above. Thank- you. tani [facility] [address] [place], [address] 04/28/2023 09:11:19 04/27/19 24 04/27/2023 XR, chest Patien t Name: Cathy Laurent tte A Unit #: [id number] Loc: ER Orderi ng Provid er: Seth Weber M.D. Accoun t #: [id number] Status : PRE ER Primar y Care Provid er: Corby dahl,Cathi GILLESPIE Date of Exa m: Sex: F Admiss ion Date: : 1970 Age: 52 Exam(s ) XR PORTAB LE CHEST AP EXAM: XR PORTAB LE CHEST AP CLINIC AL HISTOR Y: copd exacer bation TECHNI QUE: 2D digita l imagin g was perfor med of the chest. One image was obtain ed. An AP view was obtain ed. COMPAR VISHAL: CR,XR XR PORTAB LE CHEST AP from 2021 FINDIN GS: MEDIAS TINUM: Normal . HEART: Cardio megaly . There is stable promin ence of the pulmon escobar arteri es sugges ting pulmon escobar artery hypert ension . PULMON ESCOBAR VASCUL ATURE: Normal . LUNGS: There are bilate ral basila r opacit ies, left greate r than right. PLEURA L SPACE: There is blunti ng of the left costop hrenic angle which may repres ent a small pleura l effusi on. BONE:W ithin normal limits for the patien t's age. OTHER FINDIN GS:Nor mal. IMPRES YOEL: Bilate ral basila r opacit ies which may repres ent atelec tasis or pneumo re. Please correl ate clinic ally. DATA REPOSI TORY: RADIAT ION DOSE DELIVE RED: Ordere d By: Seth Weber M.D. CC: ------ ------ ------ ------ ------ ------ ------ ------ ------ ------ ------ ------ - Dictat ed By: Olvin Gunter M.D. 1320 132 Transc ribed By: Olvin Gunter 132 This is privil eged, confid ential inform ation intend ed only for the provid er named. Any use or distri bution by any person other than this provid er is strict ly prohib ited. If you receiv e this report in error, please notify us immedi ately at and return the origin al report to us at the addres s above. Thank- you. [email or web address] [facility] [address], [place], [address] 04/28/2023 09:11:40 07/25/19 24 07/25/2023 CT imagi ng repor t Patien t Name: Cathy Laurent tte A Unit #: [id number] Loc: ER Orderi ng Provid er: Beto Rocha Accoun t #: [id number] Status : REG ER Primar y Care Provid er: Corby dahl,Cathi GILLESPIE Date of Exa m: Sex: F : 1970 Age: 53 Exam(s ) a CT:CT chest PE CTA Exam(s ) CT CHEST PE CTA EXAM: CT CHEST PE CTA CLINIC AL HISTOR Y: pleuri tic back pain w deep inspir ation, sedent escobar. TECHNI QUE: Imagin g Protoc ol: Axial CT angiog hayes was perfor med with multi- slice acquis ition and multi- planar and/or 3D recons tructi ons. CONTRA ST MATERI AL: Intrav enous: Omnipa que [address] volume :100 mL COMPAR VISHAL: CT CT CHEST LUNG CANCER SCREEN from 2021 FINDIN GS: The examin ation is limite d due to patien t motion artifa ct. Trache obronc hial tree: Patent where visual ized. Pulmon escobar parenc hyma: There is a consol idatio n with air bronch ograms in the right lower lobe suspic ious for pneumo re. Smalle r infilt rates are seen in the left lingul a and the right middle lobe. Mild centri lobula r emphys ematou s change s are presen t in the lungs. No hardik ectura l distor tion. Pulmon escobar Arteri es: The segmen samuel and subseg mental pulmon escobar arteri es are poorly evalua addie second escobar to motion artifa ct. No large centra l pulmon escobar emboli sm is seen. Medias tinum and Shena: No domina nt adenop athy or fluid collec tion. The esopha evans is unrema rkable . Visual ized thyroi d gland: Unrema rkable . Pleura : No effusi on or pneumo thorax . Heart: The heart is not dilate d. [place] ry artery calcif icatio ns are presen t. No perica rdial effusi on. Aorta: Thorac ic aorta non-di lated. No eviden ce of dissec tion. Athero sclero tic calcif icatio n is presen t. Upper abdome n: Unrema rkable . Soft tissue s: Unrema rkable . Bones: Within normal limits for the patien t's age. IMPRES YOEL: 1. Within the limits of the examin ation, there is no eviden ce of pulmon escobar emboli sm, thorac ic aortic dissec tion or aneury sm. 2. Right lower lobe consol idatio n with air bronch ograms suspic ious for pneumo re. RADIAT ION DOSE DELIVE RED: 707.98 mGy.cm Total DLP DATA REPOSI TORY: All CT scans at this facili ty are submit addie to the [facility] al Radiol ogy Data Regist ry (NRDR) Dose Index Regist ry (DIR) with the [employer] of Radiol ogy (ACR). RADIAT ION OPTIMI ZATION : All CT scans at this facili ty use at least one of these dose optimi zation techni ques: automa addie exposu re contro l; mA and/or kV adjust ment per patien t size (inclu blane target ed exams where dose is matche d to clinic al indica tion); or iterat prachi recons tructi on. 0607-0 026: Total DLP = 0.00 mGy-cm Ordere d By: Beto Rocha CC: ------ ------ ------ ------ ------ ------ ------ ------ ------ ------ ------ ------ ---- Dictat ed By: Olvin Gunter M.D. 1532 153 Transc ribed By: Olvin Gunter 153 This is privil eged, confid ential inform ation intend ed only for the provid er named. Any use or distri bution by any person other than this provid er is strict ly prohib ited. If you receiv e this report in error, please notify us immedi ately at and return the origin al report to us at the addres s above. Thank- you. [email or web address] [id number], [place], [address] 07/28/2023 06:21:13 11/03/19 24 08/18/2021 imagi ng/di agnos tic [...] Not Available 11/02 14:39:58 11/03/19 24 06/13/2022 US, jasson x, jeaneth s, lorrie gomezrobert No observ ation record ed. Not Available 11/02 14:40:06 11/03/19 24 05/19/2018 kim LINARES No observ ation record ed. Not Available 11/02 14:40:19 11/03/19 24 01/24/2022 XR, shoul vanna No observ ation record [...] and Address Organization Details Recorded Time Obstruct prachi sleep apnea syndrome 94620472 Active 200711/14/19 20 - Comments only - Maria Del Carmen Nogueira PA-C - Patient continue s to demonstr ate poor toleranc e to CPAP. Declines to return to [facility] to assess as candidat e for BiPAP. Instead, Rosibel expresse s intentio n to try wedge pillow for sleep position ing. Problem Code: G47.33; Problem Code Type: ICD-10; Not Available [facility] 3 04:07:11 Essentia l hyperten yoel 66278793 Active 200309/10/19 23 - Comments only - Maria Del Carmen Nogueira PA-C - - HTN Suggeste d patient dose TORSEMID E @ 40mg QD x a few days to address tense LE and abdomina l swelling , then resume at regular 20mg QD schedule . She will otherwis e continue on LISINOPR IL 40mg QD and ATENOLOL 50mg QD as RXd. Problem Code: I10; Problem Code Type: ICD-10; Not Available [facility] 3 04:07:11 Severe obesity 44417098398 104 Active 200309/17/19 18 - Comments only - Maria Del Carmen Nogueira PA-C - BMI 56. Most recent ortho consult highly motivati ng towards patient ongoing weight loss efforts. Problem Code: E66.01; Problem Code Type: ICD-10; Not Available [facility] 3 04:07:11 Uncompli cated moderate persiste nt asthma 844478381 Active 2007 Problem Code: J45.40; Problem Code Type: ICD-10; Not Available [facility] 3 04:07:11 Hyperlip idemia 10443034 Active 200308/06/19 23 - Comments only - Maria Del Carmen Nogueira PA-C - - HYPERLIP IDEMIA Maintain ed on CRESTOR 40mg QD and TRICOR 160mg QD Problem Code: E78.5; Problem Code Type: ICD-10; Not Available [facility] 3 04:07:11 Tobacco dependen ce caused by cigarett es [id number] 860243 Active 200601/22/20 16 - Comments only - Maria Del Carmen Nogueira PA-C - Although patient is not ready to develop formal plan for cessatio n today, she does agree to work towards reducing smoking quantity via subsitut ing with deena vázquez as able. Problem Code: F17.210; Problem Code Type: ICD-10; Not Available [facility] 3 04:07:11 Recurren t major depressi on 74259663 Active 200710/30/19 22 - Comments only - Maria Del Carmen Nogueira PA-C - - DEPRESSI ON To continue on WELLBUTR IN XL 200mg QD, ABILIFY 10mg QD, PRISTIQ 100mg QD, RITALIN 20mg BID, and BUSPAR 7.5mg PRN acute anxiety Problem Code: F33.9; Problem Code Type: ICD-10; Not Available [facility] 3 04:07:11 Pain of left hip joint [id number] 9100 Active 201409/20/19 15 - Comments only - Maria Del Carmen Nogueira PA-C - To titrate NEURONTI N to 600mg BID. Otherwiseth e to continue on routinel y RXd PERCOCET 10/325mg QID PRN - RX RF provided today (#112 as 28d supply). Problem Code: M25.552; Problem Code Type: ICD-10; Not Available [facility] 3 04:07:12 Osteoart hritis of knee 846337786 Active 201401/10/20 21 - Comments only - Maria Del Carmen Nogueira PA-C - - CHRONIC PAIN (KNEES, BACK) To continue on RFd PERCOCET 10/325mg QID PRN, NEURONTI N 900mg QHS, and BACLOFEN 10mg BID PRN. Problem Code: M17.9; Problem Code Type: ICD-10; Not Available [facility] 3 04:07:12 Low back pain 110078382 Active 201404/02/19 23 - Comments only - Maria Del Carmen Nogueira PA-C - - CHRONIC PAIN (KNEES, BACK) To continue on RFd PERCOCET 10/325mg QID PRN, NEURONTI N 900mg QHS, and BACLOFEN 10mg BID PRN Problem Code: M54.5; Problem Code Type: ICD-10; Not Available [facility] 3 04:07:12 Type 2 diabetes mellitus without complica tion 999742908 Active 201407/31/19 22 - Comments only - Maria Del Carmen Nogueira PA-C - - IDDM2 Maintain ed on JANUVIA 100mg QD and LEVEMIR 10U QD. To continue with same and suppleme nt with NOVOLOG via mealtime sliding scale PRN as RXd. Problem Code: E11.9; Problem Code Type: ICD-10; Not Available [facility] 3 04:07:12 Cellulit is of left lower limb [id number] 315463 Completed 201510/24/2015 10/10/19 16 - Comments only - Maria Del Carmen Nogueira PA-C - Will treat with LEVAQUIN 500mg QD x 7d. Problem Code: L03.116; Problem Code Type: ICD-10; Not Available [facility] 3 04:07:12 Nocturna l enuresis 8271568 Active 201606/18/19 17 - Comments only - Maria Del Carmen Nogueira PA-C - As discusse d with previous visits, will reconsid er for trial of alternat prachi to OXYBUTYN IN +/- urology refer once acute GI sxs have been appropri ately addresskevin reddy. Problem Code: N39.44; Problem Code Type: ICD-10; Not Available [facility] 3 04:07:12 Stomatit is 42832073 Completed 201604/03/2016 03/20/19 17 - Comments only - Maria Del Carmen Nogueira PA-C - Will treat with DIFLUCAN 100mg QD x 14d. Given recurren t nature of patient' s sxs, to consider initiati on of OTC PROBIOTI C as preventi on. Not Available [facility] 3 04:07:12 Headache 00881337 Completed 201605/03/2016 04/22/19 17 - Comments only - Maria Del Carmen Nogueira PA-C - ?tension /cervica l. Although we had discusskevin patelti on for refer back to [facility] for PT/chiro practic treatmen t interven tions, patient would like to hold off on this for now. Problem Code: R51; Problem Code Type: ICD-10; Not Available [facility] 3 04:07:12 Chronic ulcer of buttock 676797370 Completed 201708/20/2017 08/07/19 18 - Comments only - Maria Del Carmen Nogueira PA-C - Given patient hx, will cover with RXd DOXYCYCL INE 100mg BID x 10d. Addition ally, in light of propensi ty for candidia sis, will cover prophyla ctically with DIFLUCAN 150mg on day #3 of ABX and again upon completi on of course. Problem Code: L98.419; Problem Code Type: ICD-10; Not Available [facility] 3 04:07:13 Adult health examinat ion Active 201802/14/20 21 - Comments only - Maria Del Carmen Nogueira PA-C - COVID (Moderna ) booster administ ered today. Problem Code: Z00.00; Problem Code Type: ICD-10; Not Available [facility] 3 04:07:13 Acute exacerba tion of chronic obstruct prachi pulmonar y disease 691306244 Completed 201805/25/2018 05/12/19 19 - Comments only - Maria Del Carmen Nogueira PA-C - Rosibel appears to be [...] J44.1; Problem Code Type: ICD-10; Not Available [facility] 3 04:07:13 Leukocyt osis 527586317 Completed 201805/25/2018 05/12/19 19 - Comments only - Maria Del Carmen Nogueira PA-C - Will repeat CBC with next set of labs as monitori ng Problem Code: D72.829; Problem Code Type: ICD-10; Not Available [facility] 3 04:07:13 Gastroes ophageal reflux disease without esophagi tis 262430224 Active 201806/05/19 23 - Comments only - Maria Del Carmen Nogueira PA-C - Patient encourag ed to suppleme nt PROTONIX with OTC TUMS PRN to address throat and laryngea l irritati on suspecte d as sequela of PO steroid course. Will consider for ENT refer for laryngos copy if sxs ongoing (smoker) . Problem Code: K21.9; Problem Code Type: ICD-10; Not Available [facility] 3 04:07:13 Chronic obstruct prachi pulmonar y disease 95442613 Active 201808/06/19 23 - Comments only - Maria Del Carmen Nogueira PA-C - - CHRONIC RESPIRAT ORY FAILURE, O2 DEPENDEN T COPD, SMOKER Followed by [facility] pulmonol ogy. To continue on PREDNISO NE taper as RXd by specialt y service provider for manageme nt of acute exacerba tion. To continue on ADVAIR HFA, INCRUSE ELLIPTA, ZITHROMA X, and continuo us O2 via nasal cannula and suppleme nt with VENTOLIN HFA vs DUONEB via nebulize r PRN as rescue. Problem Code: J44.9; Problem Code Type: ICD-10; Not Available [facility] 3 04:07:13 Hypoxemi a 014305650 Active 201801/09/20 21 - Deterior ated - Maren Davies on INFRASTRUCTURE CONSULTANT - Problem Code: R09.02; Problem Code Type: ICD-10; Not Available [facility] 3 04:07:13 Headache 49604085 Active 201807/18/19 19 - Comments only - Maria Del Carmen Nogueira PA-C - Given potentia l for acute sxs triggere d by seasonal allergy flare, will trial RXd FLONASE 2 sprays to each nostril QD. Otherwis e, Rosibel may suppleme nt sparingl y with OTC TYLENOL (avoid dosing within 4hrs administ ration of PERCOCET ). Declined offered treatmen t with IM TORADOL today. Problem Code: R51; Problem Code Type: ICD-10; Not Available [facility] 3 04:07:14 Urinary tract infectio us disease 76358659 Completed 201808/28/2018 Problem Code: N39.0; Problem Code Type: ICD-10; Not Available [facility] 3 04:07:14 Hypomagn esemia 127768631 Active 201811/28/19 22 - Comments only - Maria Del Carmen Nogueira PA-C - - HYPOMAGN ESEMIA Repeat magnesiu m level collecte d today as monitori ng on MAG OXIDE 400mg QD Problem Code: E83.42; Problem Code Type: ICD-10; Not Available [facility] 3 04:07:14 Chronic pain 42167081 Active 201806/05/19 23 - Comments only - Maria Del Carmen Nogueira PA-C - Patient encourag ed to reach out to ortho provider ([facility]) to discuss next steps (?MRI) in manageme nt of RIGHT SHOULDER pain. She will otherwis e continue on RFd PERCOCET 10/325mg QID PRN, NEURONTI N 900mg QHS, and BACLOFEN 10mg BId PRN as RXd. Problem Code: G89.29; Problem Code Type: ICD-10; Not Available [facility] 3 04:07:14 Disorder of skin and/or subcutan eous tissue 82680604 Completed 201811/23/2018 11/10/19 19 - Comments only - Maria Del Carmen Nogueira PA-C - Patient reassure d no evidence of abscess via today's PX. Suggeste d patient to keep area as clean and dry as possible and consider OTC DESITIN to promote skin healing. Problem Code: L98.9; Problem Code Type: ICD-10; Not Available [facility] 3 04:07:14 Acute kidney injury 82706424 Completed 201812/08/2018 11/25/19 19 - Comments only - Maria Del Carmen Nogueira PA-C - Repeat CMP collecte d today as monitori ng. Problem Code: N17.9; Problem Code Type: ICD-10; Not Available [facility] 3 04:07:14 Septic shock 57128600 Completed 201812/08/2018 11/25/19 19 - Comments only - Maria Del Carmen Nogueira PA-C - Will consider to recollec t urine for UCX to confirm cure once Rosibel has complete d full course of KEFLEX. Problem Code: R65.21; Problem Code Type: ICD-10; Not Available [facility] 3 04:07:15 Acute kidney injury 50863855 Active 2018 Problem Code: N17.9; Problem Code Type: ICD-10; Not Available [facility] 3 04:07:15 History of urinary disease 617428875 Completed 201801/01/2019 12/19/19 19 - Comments only - Maria Del Carmen Nogueira PA-C - Repeat urine for UCX collecte d today to confirm cure s/p comletio n of ABX treatmen t Problem Code: Z87.448; Problem Code Type: ICD-10; Not Available [facility] 3 04:07:15 Stomatit is 32797003 Completed 201903/22/2019 03/08/19 20 - Comments only - Maria Del Carmen Nogueira PA-C - Will treat with 14d course of DIFLUCAN 100mg QD. Not Available [facility] 3 04:07:15 Pain of left wrist 04691906181 9102 Completed 201904/20/2019 04/06/19 20 - Comments only - Maria Del Carmen Nogueira PA-C - Patient declines offer to schedule for x-ray to definate ly r/o for bony disrupti on. Will continue to monitor area and call if no better over the next 1-2 weeks. Problem Code: M25.532; Problem Code Type: ICD-10; Not Available [facility] 3 04:07:15 Edema 507217117 Completed 201907/27/2019 07/13/19 20 - Comments only - Maria Del Carmen Nogueira PA-C - Given stabiliz ation of [...] R60.9; Problem Code Type: ICD-10; Not Available [facility] 3 04:07:15 Erysipel as 07129689 Completed 201909/20/2019 09/08/19 20 - Comments only - Maria Del Carmen Nogueira PA-C - To continue on KEFLEX 500mg QID. Rosibel agrees to contact provider with update upon completi on of current ABX course to ensure complete healing. Certainl y she understa nds to reach out sooner with problems or concerns for worsenin g in the interim. Problem Code: A46; Problem Code Type: ICD-10; Not Available [facility] 3 04:07:16 Ganglion cyst of left wrist 48515897088 9100 Completed 202005/22/2020 05/09/19 21 - Comments only - Maria Del Carmen Nogueira PA-C - Given lesion not currentl y causing pain or limiting joint ROMing, no indicati on for surgical treatmen t interven tion by ortho. Will continue to monitor Problem Code: M67.432; Problem Code Type: ICD-10; Not Available [facility] 3 04:07:16 Periapic al abscess 072918351 Completed 202007/19/2020 07/06/19 21 - Comments only - Maria Del Carmen Nogueira PA-C - Patient schedule d for complete extracti on early next month. In the interest of avoiding need for RSing, Rosibel was provided with on-hold ABX RX (CLINDAM YCIN 300mg QID x 10d), which she may fill if she should develop signs of infectio n prior to procedur e. Problem Code: K04.7; Problem Code Type: ICD-10; Not Available [facility] 3 04:07:16 Pain in finger of right hand 83046006905 9109 Completed 202012/18/2020 12/05/19 21 - Comments only - Maria Del Carmen Nogueira PA-C - Patient agrees to trial OTC thumb spica splint as first line. 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 Problem Code: M79.644; Problem Code Type: ICD-10; Not Available [facility] 3 04:07:16 Exposure to communic able disease Completed 202012/18/2020 12/05/19 21 - Comments only - Maria Del Carmen Nogueira PA-C - Rosibel understa nds that [...] Z20.828; Problem Code Type: ICD-10; Not Available [facility] 3 04:07:16 Kidney stone 49446960 Active 01/10/20 21 - Comments only - Maria Del Carmen Nogueira PA-C - Symptoma tically stable. Will consider urology refer if sxs recur. Problem Code: N20.0; Problem Code Type: ICD-10; Not Available [facility] 3 04:07:17 Acute vaginiti s 88588224 Completed 202002/09/2021 01/27/20 21 - Comments only - Maria Del Carmen Nogueira PA-C - As per patient request, will treat with RXd DIFLUCAN 150mg x 1 (OK to repeat in 3d if indicate d). Problem Code: N76.0; Problem Code Type: ICD-10; Not Available [facility] 3 04:07:17 Cellulit is 943783250 Completed 202002/27/2021 02/14/20 21 - Comments only - Maria Del Carmen Nogueira PA-C - Will treat with RXd [...] L03.90; Problem Code Type: ICD-10; Not Available [facility] 3 04:07:17 Dyspnea 778707146 Active 202106/06/19 22 - Comments only - Maria Del Carmen Nogueira PA-C - Patient declines offered refer for pulmonol ogy consult. Will increase O2 settings to 2.5L/min . Chelsey webster, will ask that FANNY reach out to medical supply agency to request portable concentr ator unit. Problem Code: R06.00; Problem Code Type: ICD-10; Not Available [facility] 3 04:07:17 Disorder of skin and/or subcutan eous tissue 19949556 Completed 202104/09/2021 03/26/19 22 - Comments only - Maria Del Carmen Nogueira PA-C - Given location contribu ting to mower mechanic al irrdebo on, will refer to surgery @ [facility] to discuss excision al procedur e. Problem Code: L98.9; Problem Code Type: ICD-10; Not Available [facility] 3 04:07:17 Screenin g mammogra phy Active 2021 Problem Code: Z12.31; Problem Code Type: ICD-10; Not Available [facility] 3 04:07:17 Heart failure 59808003 Active 202111/28/19 22 - Comments only - Maria Del Carmen Nogueira PA-C - - CHF, HTN Patient to f/u with [facility] cardiolo gy as schedule d 12/17/21 . In the interim, to continue on LISINOPR IL 40mg QD, ATENOLOL 50mg QD, and TORSEMID E 20mg QD as RXD Problem Code: I50.9; Problem Code Type: ICD-10; Not Available [facility] 3 04:07:18 Acute on chronic hypercap millie respirat ory failure 29345877159 06 Active 202105/07/19 23 - Comments only - Maria Del Carmen Nogueira PA-C - Followed by [facility] Pulmonol sera. To continue on ADVAIR HFA, INCRUSE ELLIPTA, ZITHROMA X, and continuo us O2 via nasal cannula and suppleme nt with VENTOLIN HFA vs DUONEB via nebulize r PRN as rescue. Problem Code: J96.22; Problem Code Type: ICD-10; Not Available [facility] 3 04:07:18 Acute exacerba tion of chronic obstruct prachi pulmonar y disease 043451107 Completed 202110/24/2021 Problem Code: J44.1; Problem Code Type: ICD-10; Not Available [facility] 3 04:07:18 Blood in urine 10010919 Active 2021 Problem Code: R31.9; Problem Code Type: ICD-10; Not Available [facility] 3 04:07:18 Pain of right knee joint 75337641818 4100 Active 2021 Problem Code: M25.561; Problem Code Type: ICD-10; Not Available [facility] 3 04:07:18 Hidraden itis suppurat brian 53812583 Completed 202112/11/2021 11/28/19 22 - Comments only - Maria Del Carmen Nogueira PA-C - Will cover with RXd BACTRIM DS BID x 10d, however, will maintain low index to refer to surgery for I&D if sxs prove ongoing. Problem Code: L73.2; Problem Code Type: ICD-10; Florecita aburto [place] - [facility]. 4 12:58:29 Acute stress disorder 64579082 Completed 202112/18/2021 Problem Code: F43.0; Problem Code Type: ICD-10; Not Available [facility] 3 04:07:19 Pain of right shoulder joint 77924380913 880799 Active 2021 Problem Code: M25.511; Problem Code Type: ICD-10; Not Available [facility] 3 04:07:19 Hidraden itis suppurat brian 02890542 Active 2021 Problem Code: L73.2; Problem Code Type: ICD-10; Florecita Magana null, [place] - [facility]. 4 12:58:29 Abdomina l distensi on, gaseous 553990038 Completed 202204/16/2022 04/02/19 23 - Comments only - Maria Del Carmen Nogueira PA-C - Assuming today's collecte d laborato ry testing [place], patient agrees to use MIRALAX on a more regular basis to r/o chronic constipa tion issues as contribu ting to sxs. If ongoing, or certainl y worsenin g, despite this interven tion, will maintain low index for scheduli ng for repeat CT imaging. Problem Code: R14.0; Problem Code Type: ICD-10; Not Available [facility] 3 04:07:20 Disorder of eye region 278028447 Completed 202204/16/2022 04/02/19 23 - Comments only - Maria Del Carmen Nogueira PA-C - Given infectio us exposure , will cover with RXd ERYTHROM YCIN OPTHALMI C OINTMENT TID until sxs resolve. Problem Code: H57.89; Problem Code Type: ICD-10; Not Available [facility] 3 04:07:20 Candidia [facility] 14337352 Completed 202204/16/2022 04/02/19 23 - Comments only - Maria Del Carmen Nogueira PA-C - Although timing of sxs followin g initiati on of daily ABX therapy as RXd by [facility] pulmonol ogy as fueling to persiste nt candidal infectio ns, as respirat ory sxs have responde d well to this interven tion, will ask that Rosibel continue with same. As alternat prachi, will trial d/c from [facility], in hopes that this might have comparab le effect. For manageme nt of acute sxs, will treat with RXd DIFLUCAN 150mg x 1 and repeat in 3d if indicate d. Problem Code: B37.9; Problem Code Type: ICD-10; Not Available [facility] 3 04:07:20 Otalgia of right ear 7985802720 Completed 202205/17/2022 Problem Code: H92.01; Problem Code Type: ICD-10; Not Available [facility] 3 04:07:20 Edema 008442116 Active 202206/29/19 23 - Comments only - Maria Del Carmen Willis LE wrapped with COFLEX dressing in [...] R60.9; Problem Code Type: ICD-10; Not Available [facility] 3 04:07:21 Nodule on toe 511196871 Active 2022 Not Available [facility] 3 04:07:21 Intertri go 54419325 Completed 202209/02/2022 Problem Code: L30.4; Problem Code Type: ICD-10; Not Available [facility] 3 04:07:21 Candidia sis of skin 66557905 Active 2022 Problem Code: B37.2; Problem Code Type: ICD-10; Not Available [facility] 3 04:07:21 Fever 344043100 Completed 201604/21/2016 Problem Code: R50.9; Problem Code Type: ICD-10; Not Available [facility] 3 04:07:21 Type 2 diabetes mellitus without complica tion 970244165 Completed 201203/01/2022 Problem Code: E11.9; Problem Code Type: ICD-10; Not Available [facility] 3 04:07:22 Obesity 803474765 Completed 200707/29/2014 Not Available [facility] 3 04:07:22 Urinary incontin ence 907271737 Completed 200303/20/2016 Problem Code: R32; Problem Code Type: ICD-10; Not Available [facility] 3 04:07:22 Abscess of limb 879209453 Completed 201406/26/2015 Problem Code: L02.419; Problem Code Type: ICD-10; Not Available [facility] 3 04:07:22 Type 1 diabetes mellitus without complica tion 346231965 Completed 201411/13/2022 12/13/19 18 - Comments only - Maria Del Carmen Nogueira PA-C - Fingerst ick readings suggest good control on GLUCOPHA GE XR 500mg QD BID and GLUCOTRO L XL 2.5mg QD. Will be due for repeat HBA1C next month as monitori ng. Problem Code: E10.9; Problem Code Type: ICD-10; Not Available [facility] 3 04:07:23 Finding of contents of vagina 555902776 Completed 201701/16/2018 Not Available [facility] 3 04:07:23 Methicil neto resistan t Staphylo coccus aureus infectio n 225356374 Completed 200911/13/2022 Problem Code: 041.12; Problem Code Type: ICD-9; Not Available [facility] 3 04:07:23 Chronic obstruct prachi pulmonar y disease 76956172 Completed 200301/08/2021 Problem Code: J44.9; Problem Code Type: ICD-10; Not Available [facility] 3 04:07:24 Cellulit is 851145151 Completed 201406/26/2015 Problem Code: L03.90; Problem Code Type: ICD-10; Not Available [facility] 3 04:07:24 Right upper quadrant pain 825372954 Completed 201601/08/2021 Problem Code: R10.11; Problem Code Type: ICD-10; Not Available [facility] 3 04:07:24 Generali zed abdomina l pain 763902620 Completed 202011/13/2022 Problem Code: R10.84; Problem Code Type: ICD-10; Not Available [facility] 3 04:07:25 Recurren t major depressi ve episodes 531244339 Completed 200711/13/2022 Problem Code: 296.30; Problem Code Type: ICD-9; Not Available [facility] 3 04:07:25 Asthma 566807413 Completed 200711/13/2022 Problem Code: 493.90; Problem Code Type: ICD-9; Not Available [facility] 3 04:07:25 Pure hypercho lesterol emia 676547923 Completed 200711/13/2022 Not Available [facility] 3 04:07:26 Acute upper respirat ory infectio n 32468578 Completed 201506/26/2015 Problem Code: J06.9; Problem Code Type: ICD-10; Not Available [facility] 3 04:07:26 Depressi ve disorder 78635575 Completed 200311/13/2022 Problem Code: 311; Problem Code Type: ICD-9; ESTEBAN MERA, [facility] 3 13:24:46 Adjustme nt disorder 93404071 Completed 201701/16/2018 Problem Code: F43.20; Problem Code Type: ICD-10; [address], [place], [address] [facility] 4 10:27:33 Pelvic and perineal pain 597606018 Completed 202001/08/2021 Problem Code: R10.2; Problem Code Type: ICD-10; Not Available [facility] 3 04:07:27 History of disorder of digestiv e system 992889553 Completed 202003/01/2022 Problem Code: Z87.19; Problem Code Type: ICD-10; Not Available [facility] 3 04:07:28 Streptoc occal sore throat 58369693 Completed 201604/22/2016 Problem Code: J02.0; Problem Code Type: ICD-10; Not Available [facility] 3 04:07:28 Uncompli cated asthma 189359504 Completed 200711/13/2022 Problem Code: J45.909; Problem Code Type: ICD-10; Not Available [facility] 3 04:07:28 Localize d superfic ial swelling of skin 692252437 Completed 200306/26/2015 Problem Code: 782.2; Problem Code Type: ICD-9; Not Available [facility] 3 04:07:29 Heart failure 52591800 Completed 201903/01/2022 Problem Code: I50.9; Problem Code Type: ICD-10; Not Available [facility] 3 04:07:29 Traumati c or non-trau matic injury 320360635 Completed 201510/10/2015 Problem Code: T14.90; Problem Code Type: ICD-10; Not Available [facility] 3 04:07:29 Tobacco dependen ce syndrome 20562630 Completed 200611/13/2022 Problem Code: 305.1; Problem Code Type: ICD-9; Not Available [facility] 3 04:07:30 Nausea and vomiting 11328601 Completed 201506/30/2017 Problem Code: R11.2; Problem Code Type: ICD-10; Not Available [facility] 3 04:07:30 Cholelit hiasis without obstruct ion 90624685 Completed 201512/25/2015 Problem Code: K80.20; Problem Code Type: ICD-10; Not Available [facility] 3 04:07:30 Biceps tendinit is 495833324 Completed 201512/25/2015 Problem Code: M75.21; Problem Code Type: ICD-10; Not Available [facility] 3 04:07:31 Cellulit is and abscess of face 428299039 Completed 200311/13/2022 Problem Code: 682.0; Problem Code Type: ICD-9; Not Available [facility] 3 04:07:31 Morbid obesity 082817958 Completed 200311/13/2022 Not Available [facility] 3 04:07:31 Major depressi on, single episode 16086287 Completed 200303/01/2022 Problem Code: F32.9; Problem Code Type: ICD-10; Not Available [facility] 3 04:07:32 Candidia sis of mouth 76079983 Completed 201410/10/2015 RACHEL AYALA PA-C [address] [place] [address] , [place], [address] [facility] 4 12:18:55 Hypergly cemia due to type 2 diabetes mellitus 08361761685 9109 Completed 201411/13/2022 07/31/19 16 - Comments only - Maria Del Carmen Nogueira PA-C - Today's HBA1C WNLs on LANTUS 38U BID, GLUCOPHA GE XR 1g BID, and mealtime NOVOLOG via sliding scale. To continue with same. Problem Code: E11.65; Problem Code Type: ICD-10; Not Available [facility] 3 04:07:33 Stomatit is 11719068 Completed 201606/30/2017 Not Available [facility] 3 04:07:33 Type 2 diabetes mellitus 25511578 Active 2022 ESTEBAN MERA, [facility] 13:23:46 Depressi ve disorder 04804309 Active 2022 Problem Code: 311; Problem Code Type: ICD-9; ESTEBAN MERA, [facility] 13:24:46 Chronic respirat ory failure 32146493 Active 2022 ESTEBAN MERA, [facility] 13:25:36 COVID-19 372136499 Active 2022 ELE AGUIRRE criselda, [facility] 3 10:17:55 Chronic ulcer of skin 58239435 Active 2022 Problem Code: L98.499; Problem Code Type: ICD-10; Not Available [facility] 4 05:35:31 Lump of subareol ar area of right breast 74102887805 733707 Active [address], [place], [address] , [facility] 4 12:18:55 Candidia sis of mouth 29988388 Active [address], [facility] [address] , [facility] 4 12:18:55 Adjustme nt disorder 35115402 Active 2023 Problem Code: F43.20; Problem Code Type: ICD-10; SIDRA RUTH, GAGGERMAN [address], [place], [address] , [facility] 4 10:27:33 Notes:*Problem Name: Abdomin al swelling *Problem Status: active *Comments: *Problem Code: R19.00 *Problem Code Type: ICD-10 *Note Date: 06/13/2022 *Problem Name: Asthma/copd *Problem Status: inactive *Comments: *Problem Code: 491.21 *Problem Code Type: ICD-9 *Note Date: 07/05/2003 Problem Notes None recorded. Procedures Surgical History None recorded. Imaging Results Imaging Date Name Status LastModified by [facility] Details LastModified Time 04/27/2023 XR, chest completed [facility] [place], [address] 04/28/2023 09:11:19 04/27/2023 XR, chest completed [facility] [place], [address] 04/28/2023 09:11:40 07/25/2023 CT imaging report completed [email or web address] [address] [place], [address] 07/28/2023 06:21:13 08/18/2021 imaging/diagno stic result completed Information not available 11/03/2023 14:35:05 08/18/2021 imaging/diagno stic result completed Information not available 11/03/2023 14:35:36 11/04/2021 imaging/diagno stic result completed Information not available 11/03/2023 14:35:37 10/26/2021 imaging/diagno stic result completed Information not available 11/03/2023 14:35:44 01/14/2021 imaging/diagno stic result completed Information not available 11/03/2023 14:35:52 02/27/2019 imaging/diagno stic result completed Information not available 11/03/2023 14:35:53 11/15/2018 imaging/diagno stic result completed Information not available 11/03/2023 14:35:54 11/15/2018 imaging/diagno stic result completed Information not available 11/03/2023 14:35:55 11/15/2018 imaging/diagno stic result completed Information not available 11/03/2023 14:35:56 04/27/2018 imaging/diagno stic result completed Information not available 11/03/2023 14:35:57 11/04/2021 imaging/diagno stic result completed Information not available 11/03/2023 14:37:26 08/18/2021 imaging/diagno stic result completed Information not available 11/03/2023 14:39:53 11/04/2021 imaging/diagno stic result completed Information not available 11/03/2023 14:39:54 01/14/2021 imaging/diagno stic result completed Information not available 11/03/2023 14:39:54 04/27/2018 imaging/diagno stic result completed Information not available 11/03/2023 14:39:55 03/01/2019 imaging/diagno stic result completed Information not available 11/03/2023 14:39:56 11/16/2018 imaging/diagno stic result completed Information not available 11/03/2023 14:39:57 11/16/2018 imaging/diagno stic result completed Information not available 11/03/2023 14:39:58 06/13/2022 US, duplex, venous, extremity completed Information not available 11/03/2023 14:40:06 05/19/2018 MAMMO, screening completed Information not available 11/03/2023 14:40:19 01/24/2022 XR, shoulder completed Information not available 11/03/2023 14:40:19 10/27/2019 imaging/diagno stic result completed Information not available 11/03/2023 14:40:28 12/14/2020 imaging/diagno stic result completed Information not available 11/03/2023 14:40:29 11/16/2018 imaging/diagno stic result completed Information not available 11/03/2023 14:40:30 06/13/2022 imaging/diagno stic result completed Information not available 11/03/2023 14:40:31 04/27/2018 imaging/diagno stic result completed Information not available 11/03/2023 14:41:31 03/03/2019 imaging/diagno stic result completed Information not available 11/03/2023 14:42:12 01/14/2021 imaging/diagno stic result completed Information not available 11/03/2023 14:42:57 Procedure Notes None recorded. Medical Equipment None Reported. Allergies Allergen ID Allergen Name Allergen Category Reaction Reaction Severity Criticality Documentation Date Start Date Code Code System Note Provider Name and Address Organization Details Recorded Time 15844 amoxicill in medicatio n hives mild low 03/01/2023 723 RxNorm rash and heada bam Roxanne Muniz RN [facility], [place] - [facility]. 09:40:00 46530 Substance with sulfonami de structure and antibacte rial mechanism of action (substanc e) medicatio n Not available Not available unabletoasse 04/07/2023 [id number], [place], [address] [place] [address] - [facility] 4 10:07:58 Medications Name Sig [...] PO DAILY Qty: 8 0RF 11/23 completed [facility] Not Available Not Available Not [...] Not Available Not Available Not Avai lable Basaglannita Galvan U-100 Insulin 100 unit/mL (3 mL) [...] Not Available Not Available Not Avai lable Dexcom G6 Sensor device 1 device as directed as directed Change sensor every 10 days 05/08 completed Not Available Not Available Not Available Dexcom G6 Rn Hedis Use 1 device as directed as directed [...] height Body mass index (BMI) Body weight Respiratory rate Body temperature Oxygen saturation Oxygen saturation in Arterial blood by Pulse oximetry Heart rate Systolic blood pressure Diastolic blood pressure Provider Name and Address Organization Details Last Updated DateTime 4 154.69 cm 52.5 kg/m2 015906. 09 g 18 /min 97.8 [degF] 93 % 93 % 76 /min 176 mm[Hg] 100 mm[Hg] Allie Hameed MA [facility] 4 12:46:37 Date Recorded Body height Heart rate Oxygen saturation Oxygen saturation in Arterial blood by Pulse oximetry Systolic blood pressure Diastolic blood pressure Provider Name and Address Organization Details Last Updated DateTime 4 154.69 cm 80 /min 94 % 94 % 148 mm[Hg] 72 mm[Hg] Raúl Hidalgo MA [facility] 4 11:37:34 Date Recorded Body height Body mass index (BMI) Body weight Body temperature Oxygen saturation Oxygen saturation in Arterial blood by Pulse oximetry Inhaled oxygen flow rate Heart rate Systolic blood pressure Diastolic blood pressure Provider Name and Address Organization Details Last Updated DateTime 4 154.69 cm 52.2 kg/m2 026796. 7 g 99 [degF] 89 % 89 % 2 L/min 75 /min 128 mm[Hg] 84 mm[Hg] JADYN FARMER LPN [facility] 4 14:58:12 Date Recorded Body height Body mass index (BMI) Body weight Body temperature Oxygen saturation Oxygen saturation in Arterial blood by Pulse oximetry Inhaled oxygen flow rate Heart rate Respiratory rate Systolic blood pressure Diastolic blood pressure Provider Name and Address Organization Details Last Updated DateTime 4 152.4 cm 52.1 kg/m2 006096. 16 g 97.7 [degF] 94 % 94 % 2 L/min 84 /min 20 /min 150 mm[Hg] 80 mm[Hg] CALI GODFREY LPN [facility] 09:12:55 Social History Question Answer Notes LastModified by Organization Details LastModified Time Tobacco Smoking Status Current Every Day Smoker ESTEBAN MERA, [facility] 01/22/2023 14:32:14 Do You Or Have You Ever Used E-cigarettes Or Vape? Former User Of Electronic Cigarettes Information not available 01/22/2023 Date Care Plan Printed: 11/10/2023 Information not available 11/10/2023 Assigned Steel Wool Machine Operator: Kat Perla RN, [facility] Transfer Primary Care Team To [facility] Team Information not available 11/10/2023 Is [facility] The Lead Steel Wool Machine Operator? Yes Information not available 09/04/2023 Level Of [...] Yes Informa tion not available 11/10/2023 Community Fruit Buying Grader Yes Information not available 11/10/2023 Dental Services [...] In Past, But Never Started; On-Hold In [place] Information not available 11/10/2023 Medication Assistance Yes Information not available 11/10/2023 Mcfp Yes [facility] Team Informa tion not available 09/04/2023 Social Security/Disabili ty Yes SSDI Information not available 11/10/2023 Transportation Yes Informatio n not available 11/10/2023 Diabetes Self Management Program Yes Info Provided Information not available 11/10/2023 Diabetes Support Group Yes Info Provided Information not available 11/10/2023 Health Service Department Manager For HTN Control Yes Info Provided Information not available 11/10/2023 Economic Services Yes Informa tion not available 11/10/2023 RCT Yes Information not available 11/10/2023 [place] Edge No Applied In [facility] In Past; No Results Information not available 11/10/2023 Business Services Associate On Aging Yes Informat ion not available 09/04/2023 Home Health Agency Yes [facility] ([facility]) Information not [...] Recorded Time Tdap 05/22/2012 completed Not Available [facility] 06:24:37 Influenza, split virus, trivalent, preservative 12/25/2015 completed Not Available [facility] 12/27/2022 06:24:37 Influenza, split virus, quadrivalent, PF 12/27/2019 completed Not Available [facility] 12/27/2022 06:24:37 Influenza, split virus, quadrivalent, PF 01/08/2021 completed Not Available [facility] 12/27/2022 06:24:37 Influenza, split virus, quadrivalent, PF 01/29/2022 completed Not Available [facility] 12/27/2022 06:24:37 Influenza, split virus, quadrivalent, PF 02/16/2019 completed Not Available [facility] 12/27/2022 06:24:37 Influenza, split virus, quadrivalent, preservative 12/03/2016 completed Not Available [facility] 12/27/2022 06:24:37 Influenza, split virus, quadrivalent, preservative 01/16/2018 completed Not Available [facility] 12/27/2022 06:24:37 COVID-19, mRNA, LNP-S, PF, 100 mcg/0.5mL dose or 50 mcg/0.25mL dose 05/14/2020 completed Not Available [facility] 12/27/2022 06:24:37 COVID-19, mRNA, LNP-S, PF, 100 mcg/0.5mL dose or 50 mcg/0.25mL dose 06/11/2020 completed Not Available [facility] 12/27/2022 06:24:37 COVID-19, mRNA, LNP-S, PF, 100 mcg/0.5mL dose or 50 mcg/0.25mL dose 02/13/2021 completed Not Available [facility] 12/27/2022 06:24:37 COVID-19, mRNA, LNP-S, bivalent, PF, 30 mcg/0.3 mL dose 11/27/2021 completed Not Available [facility] 12/28/19 06:24:38 pneumococcal polysaccharide PPV23 06/12/2012 completed Not Available [facility] 2022 06:24:38 influenza, unspecified formulation 11/05/2013 completed Not Available [facility] 12/27/2022 06:24:38 Past Encounters Encounter ID Performer Location Encounter Start Date Encounter Closed Date Diagnosis/Indication Diagnosis SNOMED-CT Code Diagnosis ICD10 Code [id number] MARIA DEL CARMEN NOGUEIRA PA-C [facility] [address] [place] [address] 01/22/2023 13:57:28 01/22/2023 15:25:02 Chronic pain 07309488 G89.29 Type 2 lizy betes mellitus 59730850 E11.9 Depressive disorder 3548 9007 F32.A Chronic re spiratory failure 20095615 J96.12 J44.9 F17.200 Essential hypertension 39039301 I10 Hyperlipidemia 23733300 E78.5 [id number] FLORECITA BURTON [facility] [address] [facility],[place] [place] [address] 03/01/2023 09:09:40 03/01/2023 10:11:42 Lump of subareolar area of right breast 2257332246 2990118 N63.41 Candidiasis of mouth 797 77437 B37.0 [id number] MARIA DEL CARMEN NOGUEIRA PA-C [address] [address] 04/01/2023 13:24:48 04/01/2023 15:20:12 Chronic obstructive pulmonary disease 40208692 J44.9 J96.10 Chronic pain 11402218 G8 9.29 Essential hypertension 96097865 I10 Hyperlipidemia 53361829 E78.5 Type 2 lizy betes mellitus 32732489 E11.9 Depressive disorder 3548 9007 F32.A Mammography abnormal 168 205764 R92.8 Gastroesop hageal reflux disease 371581091 K21.00 Hypomagnesemia 103047349 E83.42 [id number] MARIA DEL CARMEN NOGUEIRA PA-C [address] [address] 05/07/2023 11:44:59 05/07/2023 13:23:18 Vaginal irritation 504390820 N89.8 [id number] FLORECITA BURTON [address],[place] [address] [place] [address] 05/27/2023 12:34:34 05/27/2023 13:55:37 Lesion of vulva 242845326 N90.89 Candidiasis of mouth 797 43115 B37.0 [id number] [facility] [address] [address] 07/09/2023 11:19:57 07/09/2023 13:00:55 Chronic obstructive pulmonary disease 38526587 J44.9 J96.10 Chronic pain 35364948 G8 9.29 Essential hypertension 92254724 I10 Hyperlipidemia 86107587 E78.5 Type 2 lizy betes mellitus without complication 491527034 E11.9 Depressive disorder 3548 9007 F32.A Skin ulcer 95233586 L98. 073 [id number] MARIA DEL CARMEN NOGUEIRA PA-C [address] [address] 08/04/2023 14:27:17 08/04/2023 15:38:17 Pre-surgery evaluation 893504688 Z01.818 Type 2 lizy betes mellitus without complication 035041900 E11.9 Chronic pain 15690213 G8 9.29 Skin ulcer 01256514 L98. 499 Chronic ob structive pulmonary disease 52108638 J44.9 J96.10 Essential hypertension 39867633 I10 Hyperlipidemia 45279796 E78.5 Depressive disorder 3548 9007 F32.A [id number] MARIA DEL CARMEN NOGUEIRA PA-C [address] [address] 09/22/2023 14:03:26 09/22/2023 14:42:58 Chronic pain 93193187 G89.29 Type 2 lizy betes mellitus without complication 256950647 E11.9 Skin ulcer 85177238 L98. 499 Chronic ob structive pulmonary disease 65652087 J44.9 J96.10 Essential hypertension 82383321 I10 Hyperlipidemia 46619849 E78.5 Depressive disorder 3548 9007 F32.A [id number] [address] [address] 11/10/2023 08:33:11 11/10/2023 10:14:42 Type 2 diabetes mellitus without complication 538827651 E11.9 Long-term drug therapy 739679707 Z79.899 Chronic ob structive pulmonary disease 70216142 J44.9 J96.10 Chronic pain 61202023 G8 9.29 Essential hypertension 73991677 I10 Severe obesity 960718997 1 9104 E66.01 Tobacco de pendence caused by cigarettes 6420140307 1782860 F17.210 Recurrent major depression 40401515 F33.9 Chronic ulcer of skin 19 804809 L98.499 Goals Section Goal Description Status Start Date LastModified by Organization Details LastModified Time Abdominal Wound Healing Patient states that she began with 11 open abdominal ulcers and the majority are healing well with regular wound dressing changes. There is one that remains open. She will continue with HH visits to ensure they properly heal. Goal not achieved 024 KAT PERLA Information not available 11/10/2023 18:47:39 Diabetes Control Gal: A1C < 7% with Medications & referrals to Judy, Nurse Steel Wool Machine Operator + to Jian for Medical Nutrition Therapy, Diabetes, CGM, & Care Team Self Mgt. Goal not achieved 024 KAT PERLA Information not available 11/10/2023 18:53:32 Health Concerns [...] 17:45:51 Type 2 diabetes mellitus Active KAT BLINDGATITO Not Available 11/10/2023 18:5 3:32 Advance Directives Directive None Recorded Payers Encounter Date Sequence Insurance Name Policy Number Policy Powell Covered Member ID Powell Member ID Guarantor Name 05/27/2023 1 [place] [employer] Rosibel A Fabrizio [id number] Rosibel A Fabrizio 05/27/2023 2 [employer] (MEDICAID) Rosibel A Fabrizio 1954 Rosibel A Fabrizio 07/09/2023 1 [place] Rosibel A Fabrizio [id number] 6 Rosibel A Fabrizio 07/09/2023 2 [employer] (MEDICAID) Rosibel A Fabrizio 1954 Rosibel A Fabrizio 08/04/2023 1 [place] Rosibel A Fabrizio [id number] 6 Rosibel A Fabrizio 08/04/2023 2 [employer] (MEDICAID) Rosibel A Fabrizio 1954 Rosibel A Fabrizio 09/22/2023 1 [place] Rosibel A Fabrizoi [id number] 6 Rosibel Dinh 09/22/2023 2 [employer] (MEDICAID) Rosibel Chiu Fabrizio 1954 Rosibel Dinh 11/10/2023 1 [place] Rosibel Dinh [id number] 6 Rosibel Dinh 11/10/2023 2 [employer] (MEDICAID) Rosibel Dinh 1954 Rosibel Dinh Notes Date Note Type Note Provider Name and Address Organization Details Recorded Time 05/27/2023 text/html HPI Notes: Nayan nt with evaluation 05/07/23 with PCP office for several weeks of painful lesions to external genitalia. On exam, did have some breakdown to R labia with a visible crack in skin. Vag path returned +BV and + yeast. Was treated with 7 day course of PO Flagyl and X2 doses of fluconazole. Was given dibucaine 1 % topical ointment as well, which she has been using 4 times per day, but only provides temporary relief up to 1 hour. Has also used OTC neosporin topically. Since completing oral treatment, skin to perineal region seems to be worse, with continued, raw, sores. Denies any vaginal itching. Reports scant amount of vaginal discharge. Can have some occasional blood with wiping after urination. Can have some abdominal pain at the end of urination. Patient has IUD in place due to fibroids, placed by [facility]. Denies any risk of STI, no sexual intercourse for 4 years, denies any history of past genital HSV. Type 2 diabetic, last HgA1c 03/2023 6.2, well controlled. Recent blood sugars have been fairly stable. FLORECITA BURTON, [address], [place], [address], [place] - [facility]. 05/27/2023 14:45:34 07/09/2023 text/html HPI Notes: 53y/o female presenting for 3m f/u chronic pain, COPD, CHF, DM2, depression, and HPL. In the time since Rosibel's last visit here at [facility] on 05/07/23 c/o vaginal irritation, she completed treatment for both BV and vaginal candidiasis (VPS POSITIVE For clare and gardnerella 05/07/23). Unfortunately, vulvar lesions proved ongoing to require [facility] 05/27[facility], at which point VPS repeated (+ gardnerella only) and HSV CX (negative) collected. Another week long course of FLAGYL 500mg BID was RXd. Rosibel was subsequently seen in f/u via [facility] on 06/11/23 and empirically RXd VALTREX, however, repeat VPS and HSV CX and returned as NORMAL. With recheck 06/19/23, [facility] wound care referral was initiated. Most recently, Rosibel presented to [facility] 07/06/23. On presentation today, patient reports lesions ongoing. Surrounding skin quite friable; bleeds easily. Incredibly sore. Unable to tolerating using DIBUCAINE topically due to this causing further skin irritation. Denies fever, N/V, or other more systemic signs of illness. MARIA DEL CARMEN NOGUEIRA PA-C [address], [place], [address], [facility]. 07/09/2023 13:24:46 08/04/2023 text/html HPI Notes: 53y/o female presenting for f/u hospitalization. Visit initially scheduled as pre-op for cataract surgery scheduled 08/13/23 (right) and 08/27/23 (left) through Dr. Cabrera at [facility]. Rosibel presented to [facility] ED on 07/25/23 with c/o cough and pleuritic chest pain x a couple days. Kayyley admitted to hospitalist service for management of acute hypoxic hypercabic respiratory failure secondary to acute COPD exacerbation/right lower lobe pneumonia. During the course of her hospital stay, Rosibel was treated with IV ABX (CEFTRIAXONE and ZITHROMAX) and steroids. D/C'd to home on 07/28/23 on CEFPODOXIME 200mg BID x 5d and PREDNISONE 40mg QD x 3d. On presentation today, Rosibel reports breathing not bad. Denies acute cough. Maintained on continuous O2. Afebrile. [address], [place], [address], [facility]. 08/04/2023 16:20:45 09/22/2023 text/html HPI Notes: 53y/o female presenting for 3m f/u chronic pain, COPD, CHF, DM2, depression, and HPL. On presentation today, Rosibel reports she is still working to unpack items in new apartment in [place]. Feeling a bit overwhelmed, but overall happy with the move and enjoying new living space. MARIA DEL CARMEN NOGUEIRA PA-C [address], [place], [address], [place] - [facility]. 10/16/2023 12:25:31 11/10/2023 text/html HPI Notes: cc transfer to our office from [facility] due to move to [place] Multiple chronic issues - generally feels horrible. [...] methylphenidate Chronic knee pain was told by [facility] ortho that she was a poor candidate [...] ulcers - improved since onset SIDRA RUTH, GUTIERREZ [address], [place], [address], [facility] - [facility]. 11/10/2023 10:51:04 OBGyn Episode No OBEpisode recorded.
--- OUTSIDE RECORDS SUMMARY | 2023-11-10 17:35 | XMS_ITS | Continuity of Care Document ---
Author Organization [place] [facility], [facility] Address [address] [place] [address] Care Team Providers Care Outplacement Consultant Name Role Phone JOANHUMPHREYSIDRA Primary Care Provider [employer] OTHER PERLA KATHLEEN Invoice Classification Clerk LOUISE FUENTES Dentist JIAN DE Railroad Auditor/Records Management Technician ISIS CALLE Psychiatrist [phone] [facility] [place] [phone] [facility] CODE CLERK Community Health Worker [facility] [place] ON AGING OTHER [facility] PULMONOLOGY OTHER [facility] OTHER [facility] OTHER Assessment Encounter Date Assessment Date Assessment LastModified by Organization Details LastModified Time 09/22/2023 09/22/2023 This appointment was conducted via telephone. A total of 30 minutes was spent at this visit of which at least 50% was spent in direct patient contact. Consent was given to conduct this encounter using appropriate technology. [email or web address] Not available 10/16/2023 12:19:45 Plan of Treatment Reminders Order Date Submit Date Provider Last Modified By Organization Details Last Modified Time Details Appointments Office Visit 60 2023 09:10A M Not available Not available Not available Lab None recorded. Referral wound care referral 2023 024 [facility], [address] [facility], [place], [address], 10/08/2023 15:30:36 Procedures None recorded. Surgeries None recorded. Imaging None recorded. Medication Orders oxycodone 5 mg tablet 2023 024 [employer] [address], [address] [facility], [place], [address], 10/28/2023 09:09:58 oxycodone 15 mg tablet 2023 024 [email or web address] [facility] [address], [address] [place], [address], 10/16/2023 12:21:46 Patient TargetsNo targets recorded. Patient InstructionsNo instructions recorded. Reason for Referral Breast Surgery Referral for Lump of subareolar area of right breast Referring Physician: Rachel [facility], Encounter Date: 03/26/2023 Referring Physician: María Nogueira [facility] Medicine, Encounter Date: 07/15/2023 Referring Physician: María Nogueira [facility] Medicine, Encounter Date: 09/22/2023 Diabetic Nutrition Education Referral for Type 2 diabetes mellitus without complication Referring Physician: Sidra Ruth [facility] Medicine, Encounter Date: 11/10/2023 Psychiatrist Referral for Re current major depression Referring Physician: Sidra Ruth [facility] Medicine, Encounter Date: 11/10/2023 Results Created Date Observation Date Name Description Value Unit Range Abnormal Flag Note LastModifiedBy Organization Detail LastModifiedTime 11/03/19 24 08/18/2021 imagi ng/di agnos tic [...] 06/13/2022 US, jasson x, jeaneth s, lorrie avila No observ ation record ed. Not Available 11/02 14:40:06 11/03/19 24 05/19/2018 MAMMO kim germaine No observ ation record ed. Not Available 11/02 14:40:19 11/03/19 24 01/24/2022 XR, cuca vanna No observ ation record ed. Not [...] Recorded Time Obstruct leena sleep apnea syndrome 34227972 Active 200711/14/19 20 - Comments only - María Nogueira PA-C - Patient continue s to demonstr ate poor toleranc e to CPAP. Declines to return to [facility] to assess as candidat e for BiPAP. Instead, Rosibel expresse s intentio n to try wedge pillow for sleep position ing. Problem Code: G47.33; Problem Code Type: ICD-10; Not Available [facility] 3 04:07:11 Essentia l hyperten yoel 51591855 Active 200309/10/19 23 - Comments only - [...] I10; Problem Code Type: ICD-10; Not Available [facility] 3 04:07:11 Severe obesity 68339968739 104 Active 200309/17/19 18 - Comments only - Maíra Nogueira PA-C - BMI 56. Most recent ortho consult highly motivati ng towards patient ongoing weight loss efforts. Problem Code: E66.01; Problem Code Type: ICD-10; Not Available [facility] 3 04:07:11 Uncompli cated moderate persiste nt asthma 882648826 Active 2007 Problem Code: J45.40; Problem Code Type: ICD-10; Not Available [facility] 3 04:07:11 Hyperlip idemia 66138847 Active 200308/06/19 23 - Comments only - María Nogueira PA-C - - HYPERLIP IDEMIA Maintain ed on CRESTOR 40mg QD and TRICOR 160mg QD Problem Code: E78.5; Problem Code Type: ICD-10; Not Available [facility] 3 04:07:11 Tobacco dependen ce caused by cigarett es 45928428984 076105 Active 200601/22/20 16 - Comments only - María Nogueira PA-C - Although patient is not ready to develop formal plan for cessatio n today, she does agree to work towards reducing smoking quantity via subsitut ing with electron ic annita e as able. Problem Code: F17.210; Problem Code Type: ICD-10; Not Available [facility] 3 04:07:11 Recurren t major depressi on 60916429 Active 200710/30/19 22 - Comments only - María Nogueira PA-C - - DEPRESSI ON To continue on WELLBUTR IN XL 200mg QD, ABILIFY 10mg QD, PRISTIQ 100mg QD, RITALIN 20mg BID, and BUSPAR 7.5mg PRN acute anxiety Problem Code: F33.9; Problem Code Type: ICD-10; Not Available [facility] 3 04:07:11 Pain of left hip joint 99927864144 9100 Active 201409/20/19 15 - Comments only - María Nogueira PA-C - To titrate NEURONTI N to 600mg BID. Otherwis e to continue on routinel y RXd PERCOCET 10/325mg QID PRN - RX RF provided today (#112 as 28d supply). Problem Code: M25.552; Problem Code Type: ICD-10; Not Available [facility] 3 04:07:12 Osteoart hritis of knee 087690513 Active 201401/10/20 21 - Comments only - María Nogueira PA-C - - CHRONIC PAIN (KNEES, BACK) To continue on RFd PERCOCET 10/325mg QID PRN, NEURONTI N 900mg QHS, and BACLOFEN 10mg BID PRN. Problem Code: M17.9; Problem Code Type: ICD-10; Not Available [facility] 3 04:07:12 Low back pain 412179093 Active 201404/02/19 23 - Comments only - María Nogueira PA-C - - CHRONIC PAIN (KNEES, BACK) To continue on RFd PERCOCET 10/325mg QID PRN, NEURONTI N 900mg QHS, and BACLOFEN 10mg BID PRN Problem Code: M54.5; Problem Code Type: ICD-10; Not Available [facility] 3 04:07:12 Type 2 diabetes mellitus without complica tion 814625549 Active 201407/31/19 22 - Comments only - María Nogueira PA-C - - IDDM2 Maintain ed on JANUVIA 100mg QD and LEVEMIR 10U QD. To continue with same and suppleme nt with NOVOLOG via mealtime sliding scale PRN as RXd. Problem Code: E11.9; Problem Code Type: ICD-10; Not Available [facility] 3 04:07:12 Cellulit is of left lower limb 84344713418 047698 Completed 201510/24/2015 10/10/19 16 - Comments only - María Nogueira PA-C - Will treat with LEVAQUIN 500mg QD x 7d. Problem Code: L03.116; Problem Code Type: ICD-10; Not Available [facility] 3 04:07:12 Nocturna l enuresis 2424515 Active 201606/18/19 17 - Comments only - María Nogueira PA-C - As discusskevin reddy with previous visits, will reconsid er for trial of alternat leena to OXYBUTYN IN +/- urology refer once acute GI sxs have been appropri silke reddy. Problem Code: N39.44; Problem Code Type: ICD-10; Not Available [facility] 3 04:07:12 Stomatit is 88731807 Completed 201604/03/2016 03/20/19 17 - Comments only - María Nogueira PA-C - Will treat with DIFLUCAN 100mg QD x 14d. Given recurren t nature of patient' s sxs, to consider initiati on of OTC PROBIOTI C as preventi on. Not Available [facility] 3 04:07:12 Headache 63917182 Completed 201605/03/2016 04/22/19 17 - Comments only - María Nogueira PA-C - ?tension /cervica l. Although we had discusskevin reddy indicati on for refer back to [facility] for PT/chiro practic treatmen t interven tions, patient would like to hold off on this for now. Problem Code: R51; Problem Code Type: ICD-10; Not Available [facility] 3 04:07:12 Chronic ulcer of buttock 381921928 Completed 201708/20/2017 08/07/19 18 - Comments only - María Nogueira PA-C - Given patient hx, will cover with RXd DOXYCYCL INE 100mg BID x 10d. Addition ally, in light of propensi ty for candidia sis, will cover prophyla ctically with DIFLUCAN 150mg on day #3 of ABX and again upon completi on of course. Problem Code: L98.419; Problem Code Type: ICD-10; Not Available [facility] 3 04:07:13 Adult health examinat ion Active 201802/14/20 21 - Comments only - María Nogueira PA-C - COVID (Moderna ) booster administ ered today. Problem Code: Z00.00; Problem Code Type: ICD-10; Not Available [facility] 3 04:07:13 Acute exacerba tion of chronic obstruct leena pulmonar y disease 687179594 Completed 201805/25/2018 05/12/19 19 - Comments only [...] J44.1; Problem Code Type: ICD-10; Not Available [facility] 3 04:07:13 Leukocyt osis 941144958 Completed 201805/25/2018 05/12/19 19 - Comments only - María Nogueira PA-C - Will repeat CBC with next set of labs as monitori ng Problem Code: D72.829; Problem Code Type: ICD-10; Not Available [facility] 3 04:07:13 Gastroes ophageal reflux disease without esophagi tis 288285942 Active 201806/05/19 23 - Comments only - María Nogueira PA-C - Patient encourag ed to suppleme nt PROTONIX with OTC TUMS PRN to address throat and laryngea l irritati on suspecte d as sequela of PO steroid course. Will consider for ENT refer for laryngos copy if sxs ongoing (smoker) . Problem Code: K21.9; Problem Code Type: ICD-10; Not Available [facility] 3 04:07:13 Chronic obstruct leena pulmonar y disease 15339931 Active 201808/06/19 23 - Comments only - María Nogueira PA-C - - CHRONIC RESPIRAT ORY FAILURE, O2 DEPENDEN T COPD, SMOKER Followed by [facility] pulmonol sera. To continue on PREDNISO NE taper as RXd by specialt y service provider for manageme nt of acute exacerba tion. To continue on ADVAIR HFA, INCRUSE ELLIPTA, ZITHROMA X, and continuo us O2 via nasal cannula and suppleme nt with VENTOLIN HFA vs DUONEB via nebulize r PRN as rescue. 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 - Problem Code: R09.02; Problem Code Type: ICD-10; Not Available [facility] 3 04:07:13 Headache 60751720 Active 201807/18/19 19 - Comments only - [...] R51; Problem Code Type: ICD-10; Not Available [facility] 3 04:07:14 Urinary tract infectio us disease 67082271 Completed 201808/28/2018 Problem Code: N39.0; Problem Code Type: ICD-10; Not Available [facility] 3 04:07:14 Hypomagn esemia 236948231 Active 201811/28/19 22 - Comments only - María Nogueira PA-C - - HYPOMAGN ESEMIA Repeat magnesiu m level collecte d today as monitori ng on MAG OXIDE 400mg QD Problem Code: E83.42; Problem Code Type: ICD-10; Not Available [facility] 3 04:07:14 Chronic pain 94365401 Active 201806/05/19 23 - Comments only - María Nogueira PA-C - Patient encourag ed to reach out to ortho provider ([facility]) to discuss next steps (?MRI) in manageme nt of RIGHT SHOULDER pain. She will otherwis e continue on RFd PERCOCET 10/325mg QID PRN, NEURONTI N 900mg QHS, and BACLOFEN 10mg BId PRN as RXd. Problem Code: G89.29; Problem Code Type: ICD-10; Not Available [facility] 3 04:07:14 Disorder of skin and/or subcutan eous tissue 88619692 Completed 201811/23/2018 11/10/19 19 - Comments only - María Nogueira PA-C - Patient reassure d no evidence of abscess via today's PX. Suggeste d patient to keep area as clean and dry as possible and consider OTC DESITIN to promote skin healing. Problem Code: L98.9; Problem Code Type: ICD-10; Not Available [facility] 3 04:07:14 Acute kidney injury 05741822 Completed 201812/08/2018 11/25/19 19 - Comments only - María Nogueira PA-C - Repeat CMP collecte d today as monitori ng. Problem Code: N17.9; Problem Code Type: ICD-10; Not Available [facility] 3 04:07:14 Septic shock 16723795 Completed 201812/08/2018 11/25/19 19 - Comments only - María Nogueira PA-C - Will consider to recollec t urine for UCX to confirm cure once Rosibel has complete d full course of KEFLEX. Problem Code: R65.21; Problem Code Type: ICD-10; Not Available [facility] 3 04:07:15 Acute kidney injury 14275805 Active 2018 Problem Code: N17.9; Problem Code Type: ICD-10; Not Available [facility] 3 04:07:15 History of urinary disease 565033392 Completed 201801/01/2019 12/19/19 19 - Comments only - María Nogueira PA-C - Repeat urine for UCX collecte d today to confirm cure s/p comletio n of ABX treatmen t Problem Code: Z87.448; Problem Code Type: ICD-10; Not Available [facility] 3 04:07:15 Stomatit is 15642481 Completed 201903/22/2019 03/08/19 20 - Comments only - María Nogueira PA-C - Will treat with 14d course of DIFLUCAN 100mg QD. Not Available [facility] 3 04:07:15 Pain of left wrist 03821931202 9102 Completed 201904/20/2019 04/06/19 20 - Comments only - María Nogueira PA-C - Patient declines offer to schedule for x-ray to definate ly r/o for bony disrupti on. Will continue to monitor area and call if no better over the next 1-2 weeks. Problem Code: M25.532; Problem Code Type: ICD-10; Not Available [facility] 3 04:07:15 Edema 266229574 Completed 201907/27/2019 07/13/19 20 - Comments only [...] R60.9; Problem Code Type: ICD-10; Not Available [facility] 3 04:07:15 Erysipel as 98026380 Completed 201909/20/2019 09/08/19 20 - Comments only [...] A46; Problem Code Type: ICD-10; Not Available [facility] 3 04:07:16 Ganglion cyst of left wrist 31622037130 9100 Completed 202005/22/2020 05/09/19 21 - Comments only - María Nogueira PA-C - Given lesion not currentl y causing pain or limiting joint ROMing, no indicati on for surgical treatmen t interven tion by ortho. Will continue to monitor Problem Code: M67.432; Problem Code Type: ICD-10; Not Available [facility] 3 04:07:16 Periapic al abscess 518649835 Completed 202007/19/2020 07/06/19 21 - Comments only [...] K04.7; Problem Code Type: ICD-10; Not Available [facility] 3 04:07:16 Pain in finger of right hand 77090752643 9109 Completed 202012/18/2020 12/05/19 21 - Comments only - María Nogueira PA-C - Patient agrees to trial OTC thumb spica splint as first line. 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 Problem Code: M79.644; Problem Code Type: ICD-10; Not Available [facility] 3 04:07:16 Exposure to communic able disease [...] Z20.828; Problem Code Type: ICD-10; Not Available [facility] 3 04:07:16 Kidney stone 07992624 Active 01/10/20 21 - Comments only - María Nogueira PA-C - Symptoma tically stable. Will consider urology refer if sxs recur. Problem Code: N20.0; Problem Code Type: ICD-10; Not Available [facility] 3 04:07:17 Acute vaginiti s 18817286 Completed 202002/09/2021 01/27/20 21 - Comments only - María Nogueira PA-C - As per patient request, will treat with RXd DIFLUCAN 150mg x 1 (OK to repeat in 3d if indicate d). Problem Code: N76.0; Problem Code Type: ICD-10; Not Available [facility] 3 04:07:17 Cellulit is 543018747 Completed 202002/27/2021 02/14/20 21 - Comments only [...] L03.90; Problem Code Type: ICD-10; Not Available [facility] 3 04:07:17 Dyspnea 954251444 Active 202106/06/19 22 - Comments only - María Nogueira PA-C - Patient declines offered refer for pulmonol ogy consult. Will increase O2 settings to 2.5L/min . Addition eleanor, will ask that MARENGisselle reach out to medical supply agency to request portable concentr ator unit. 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 Problem Code: L98.9; Problem Code Type: ICD-10; Not Available [facility] 3 04:07:17 Screenin g mammogra phy Active 2021 Problem Code: Z12.31; Problem Code Type: ICD-10; Not Available [facility] 3 04:07:17 Heart failure 33390445 Active 202111/28/19 22 - Comments only - María Nogueira PA-C - - CHF, HTN Patient to f/u with [facility] cardiolo gy as schedule d 12/17/21 . In the interim, to continue on LISINOPR [place] 40mg QD, ATENOLOL 50mg QD, and TORSEMID E 20mg QD as RXD Problem Code: I50.9; Problem Code Type: ICD-10; Not Available [facility] 3 04:07:18 Acute on chronic hypercap millie respirat ory failure 96467667963 06 Active 202105/07/19 23 - Comments only - María Nogueira PA-C - Followed by [facility] Pulmonol sera. To continue on ADVAIR HFA, INCRUSE ELLIPTA, ZITHROMA X, and continuo us O2 via nasal cannula and suppleme nt with VENTOLIN HFA vs DUONEB via nebulize r PRN as rescue. Problem Code: J96.22; Problem Code Type: ICD-10; Not Available [facility] 3 04:07:18 Acute exacerba tion of chronic obstruct leena pulmonar y disease 662505071 Completed 202110/24/2021 Problem Code: J44.1; Problem Code Type: ICD-10; Not Available [facility] 3 04:07:18 Blood in urine 55364931 Active 2021 Problem Code: R31.9; Problem Code Type: ICD-10; Not Available [facility] 3 04:07:18 Pain of right knee joint 32337505452 4100 Active 2021 Problem Code: M25.561; Problem Code Type: ICD-10; Not Available [facility] 3 04:07:18 Hidraden itis suppurat brian 72027837 Completed 202112/11/2021 11/28/19 22 - Comments only - María Nogueira PA-C - Will cover with RXd BACTRIM DS BID x 10d, however, will maintain low index to refer to surgery for I&D if sxs prove ongoing. Problem Code: L73.2; Problem Code Type: ICD-10; Florecita aburto, [facility] 4 12:58:29 Acute stress disorder 70773292 Completed 202112/18/2021 Problem Code: F43.0; Problem Code Type: ICD-10; Not Available [facility] 3 04:07:19 Pain of right shoulder joint 75243059611 752502 Active 2021 Problem Code: M25.511; Problem Code Type: ICD-10; Not Available [facility] 3 04:07:19 Hidraden itis suppurat brian 44789621 Active 2021 Problem Code: L73.2; Problem Code Type: ICD-10; Florecita aburto, [facility] 4 12:58:29 Abdomina l distensi on, gaseous 358730576 Completed 202204/16/2022 04/02/19 23 - Comments only [...] R14.0; Problem Code Type: ICD-10; Not Available [facility] 3 04:07:20 Disorder of eye region 068595574 Completed 202204/16/2022 04/02/19 23 - Comments only - María Nogueira PA-C - Given infectio us exposure , will cover with RXd ERYTHROM YCIN OPTHALMI C OINTMENT TID until sxs resolve. Problem Code: H57.89; Problem Code Type: ICD-10; Not Available [facility] 3 04:07:20 Presley sis 80864755 Completed 202204/16/2022 04/02/19 23 - Comments only - María Nogueira PA-C - Although timing of sxs followin g initiati on of daily ABX therapy as RXd by [facility] pulmonana ogy as fueling to persiste nt candidal [...] B37.9; Problem Code Type: ICD-10; Not Available [facility] 3 04:07:20 Otalgia of right ear 8886478317 Completed 202205/17/2022 Problem Code: H92.01; Problem Code Type: ICD-10; Not Available [facility] 3 04:07:20 Edema 710444111 Active 202206/29/19 23 - Comments only - María Nogueira PA-C - BILATERA L LE wrapped with COFLEX dressing in office [...] R60.9; Problem Code Type: ICD-10; Not Available [facility] 3 04:07:21 Nodule on toe 321668377 Active 2022 Not Available [facility] 3 04:07:21 Intertri go 03341096 Completed 202209/02/2022 Problem Code: L30.4; Problem Code Type: ICD-10; Not Available [facility] 3 04:07:21 Candidia sis of skin 61003330 Active 2022 Problem Code: B37.2; Problem Code Type: ICD-10; Not Available [facility] 3 04:07:21 Fever 983581884 Completed 201604/21/2016 Problem Code: R50.9; Problem Code Type: ICD-10; Not Available [facility] 3 04:07:21 Type 2 diabetes mellitus without complica tion 449463983 Completed 201203/01/2022 Problem Code: E11.9; Problem Code Type: ICD-10; Not Available [facility] 3 04:07:22 Obesity 472454577 Completed 200707/29/2014 Not Available [facility] 3 04:07:22 Urinary incontin ence 770070269 Completed 200303/20/2016 Problem Code: R32; Problem Code Type: ICD-10; Not Available [facility] 3 04:07:22 Abscess of limb 689875088 Completed 201406/26/2015 Problem Code: L02.419; Problem Code Type: ICD-10; Not Available [facility] 3 04:07:22 Type 1 diabetes mellitus without complica tion 941509849 Completed 201411/13/2022 12/13/19 18 - Comments only - María Nogueira PA-C - Fingerst ick readings suggest good control on GLUCOPHA GE XR 500mg QD BID and GLUCOTRO L XL 2.5mg QD. Will be due for repeat HBA1C next month as monitori ng. Problem Code: E10.9; Problem Code Type: ICD-10; Not Available [facility] 3 04:07:23 Finding of contents of vagina 478925199 Completed 201701/16/2018 Not Available [facility] 3 04:07:23 Methicil neto resistan t Staphylo coccus aureus infectio n 714910500 Completed 200911/13/2022 Problem Code: 041.12; Problem Code Type: ICD-9; Not Available [facility] 3 04:07:23 Chronic obstruct leena pulmonar y disease 98325104 Completed 200301/08/2021 Problem Code: J44.9; Problem Code Type: ICD-10; Not Available [facility] 3 04:07:24 Cellulit is 183203355 Completed 201406/26/2015 Problem Code: L03.90; Problem Code Type: ICD-10; Not Available [facility] 3 04:07:24 Right upper quadrant pain 841145208 Completed 201601/08/2021 Problem Code: R10.11; Problem Code Type: ICD-10; Not Available [facility] 3 04:07:24 Generali zed abdomina l pain 786514207 Completed 202011/13/2022 Problem Code: R10.84; Problem Code Type: ICD-10; Not Available [facility] 3 04:07:25 Recurren t major depressi ve episodes 867559808 Completed 200711/13/2022 Problem Code: 296.30; Problem Code Type: ICD-9; Not Available [facility] 3 04:07:25 Asthma 315407459 Completed 200711/13/2022 Problem Code: 493.90; Problem Code Type: ICD-9; Not Available [facility] 3 04:07:25 Pure hypercho lesterol emia 849509212 Completed 200711/13/2022 Not Available [facility] 3 04:07:26 Acute upper respirat ory infectio n 91018277 Completed 201506/26/2015 Problem Code: J06.9; Problem Code Type: ICD-10; Not Available [facility] 3 04:07:26 Depressi ve disorder 56876891 Completed 200311/13/2022 Problem Code: 311; Problem Code Type: ICD-9; ESTEBAN MERA, [facility] 3 13:24:46 Adjustme nt disorder 35248963 Completed 201701/16/2018 Problem Code: F43.20; Problem Code Type: ICD-10; GUTIERREZ BARRON [address], [place], [address] [facility] 4 10:27:33 Pelvic and perineal pain [id number] Completed 202001/08/2021 Problem Code: R10.2; Problem Code Type: ICD-10; Not Available [facility] 3 04:07:27 History of disorder of digestiv e system [id number] Completed 202003/01/2022 Problem Code: Z87.19; Problem Code Type: ICD-10; Not Available [facility] 3 04:07:28 Streptoc occal sore throat 20008684 Completed 201604/22/2016 Problem Code: J02.0; Problem Code Type: ICD-10; Not Available [facility] 3 04:07:28 Uncompli cated asthma 923032713 Completed 200711/13/2022 Problem Code: J45.909; Problem Code Type: ICD-10; Not Available [facility] 3 04:07:28 Localize d superfic ial swelling of skin 466054082 Completed 200306/26/2015 Problem Code: 782.2; Problem Code Type: ICD-9; Not Available [facility] 3 04:07:29 Heart failure 67662173 Completed 201903/01/2022 Problem Code: I50.9; Problem Code Type: ICD-10; Not Available [facility] 3 04:07:29 Traumati c or non-trau matic injury 839772876 Completed 201510/10/2015 Problem Code: T14.90; Problem Code Type: ICD-10; Not Available [facility] 3 04:07:29 Tobacco dependen ce syndrome 82647319 Completed 200611/13/2022 Problem Code: 305.1; Problem Code Type: ICD-9; Not Available [facility] 3 04:07:30 Nausea and vomiting 68023118 Completed 201506/30/2017 Problem Code: R11.2; Problem Code Type: ICD-10; Not Available [facility] 3 04:07:30 Cholelit hiasis without obstruct ion 70627058 Completed 201512/25/2015 Problem Code: K80.20; Problem Code Type: ICD-10; Not Available [facility] 3 04:07:30 Biceps tendinit is 855466610 Completed 201512/25/2015 Problem Code: M75.21; Problem Code Type: ICD-10; Not Available [facility] 3 04:07:31 Cellulit is and abscess of face 888634559 Completed 200311/13/2022 Problem Code: 682.0; Problem Code Type: ICD-9; Not Available [facility] 3 04:07:31 Morbid obesity 447679739 Completed 200311/13/2022 Not Available [facility] 3 04:07:31 Major depressi on, single episode 48363371 Completed 200303/01/2022 Problem Code: F32.9; Problem Code Type: ICD-10; Not Available [facility] 3 04:07:32 Candidia sis of mouth 53224567 Completed 201410/10/2015 RACHEL AYALA PA-C [facility] [address], [place], [address] , [facility]. 4 12:18:55 Hypergly cemia due to type 2 diabetes mellitus [id number] 9109 Completed 201411/13/2022 07/31/19 16 - Comments only - María Nogueira PA-C - Today's HBA1C WNLs on LANTUS 38U BID, GLUCOPHA GE XR 1g BID, and mealtime NOVOLOG via sliding scale. To continue with same. Problem Code: E11.65; Problem Code Type: ICD-10; Not Available [facility] 3 04:07:33 Stomatit is 05694555 Completed 201606/30/2017 Not Available [facility] 3 04:07:33 Type 2 diabetes mellitus 22242483 Active 2022 CHANTAL LÓPEZ MA null, [facility] 3 13:23:46 Depressi ve disorder 80748432 Active 2022 Problem Code: 311; Problem Code Type: ICD-9; CHANTAL LÓPEZ MA null, [facility] 3 13:24:46 Chronic respirat ory failure 59087366 Active 2022 CHANTAL LÓPEZ MA null, [facility] 3 13:25:36 COVID-19 634735914 Active 2022 ELE ZARAGOZAJOSESITO null, [facility] 3 10:17:55 Chronic ulcer of skin 57357057 Active 2022 Problem Code: L98.499; Problem Code Type: ICD-10; Not Available [facility] 4 05:35:31 Lump of subareol ar area of right breast [id number] 268786 Active [address], [facility] [address] , [facility] 4 12:18:55 Candidia sis of mouth 75140947 Active [address], [facility] [address] , [facility] 4 12:18:55 Adjustme nt disorder 77306607 Active 2023 Problem Code: F43.20; Problem Code Type: ICD-10; [address], [place], [address] , [facility] 4 10:27:33 Notes:*Problem Name: Abdomin [...] Name and Address Organization Details Recorded Time 85173 amoxicill in medicatio n hives mild low 03/01/2023 723 RxNorm rash and heada bam Roxanne Muniz RN [facility] 4 09:40:00 52838 Substance with sulfonami de structure and antibacte rial mechanism of action (substanc e) medicatio n Not available Not available unabletoasse ss 04/07/2023 29367 8003 SNOMED MARÍA NOGUEIRA PA-C [address], [place], [address] , [facility] 4 10:07:58 Medications Name Sig [...] [facility] completed Not Available Not Available Not [...] PO DAILY Qty: 8 0RF 11/23 completed [facility] D/C Not Available Not Available Not [...] Available Not Available Not Available Dexcom G6 Door Patcher Use 1 device as directed as directed [...] Not Available Not Available Not Available Vitals None Recorded Social History Question Answer Notes LastModified by Organization Details LastModified Time Tobacco Smoking Status Current Every Day Smoker CHANTAL LÓPEZ MA [facility], [place] - [facility]. 01/22/2023 14:32:14 Do You Or Have You Ever Used E-cigarettes Or Vape? Former User Of Electronic Cigarettes Information not available 01/22/2023 Date Care Plan Printed: 11/10/2023 Information not available 11/10/2023 Assigned Desulfurizer Operator: Kat Perla RN, [facility] Transfer Primary Care Team To [facility] Team Information not available 11/10/2023 Is [facility] The Lead Desulfurizer Operator? Yes Information not available 09/04/2023 Level [...] Yes Informa tion not available 11/10/2023 Community Restaurant Host/Hostess Yes Information not available 11/10/2023 Dental Services [...] In Past, But Never Started; On-Hold In [place] Information not available 11/10/2023 Medication Assistance Yes Information not available 11/10/2023 Long-Term Yes [facility] Team Informa tion not available 09/04/2023 Social Security/Disabili ty Yes SSDI Information not available 11/10/2023 Transportation Yes Informatio n not available 11/10/2023 Diabetes Self Management Program Yes Info Provided Information not available 11/10/2023 Diabetes Support Group Yes Info Provided Information not available 11/10/2023 Health Wool Carder For HTN Control Yes Info Provided Information not available 11/10/2023 Economic Services Yes Informa tion not available 11/10/2023 RCT Yes Information not available 11/10/2023 Rural Edge No Applied In [facility] In Past; No Results Information not available 11/10/2023 Lumber Trimmer On Aging Yes Informat ion not available 09/04/2023 Home Health Agency Yes [facility] ([facility]) Information not available 11/10/2023 Providers Yes Information not available 09/04/2023 Other Support System Yes Community [facility] Team; [facility]; Glucometer &/or Freestyle Ramon CGM [...] Time Sister Family history of malignant neoplasm HAYLEE Severino [place] [email or web address] Not available 12/27/2022 03:54:48 Sister [...] Recorded Time Tdap 05/22/2012 completed Not Available [facility] 06:24:37 Influenza, split virus, trivalent, preservative 12/25/2015 completed Not Available [facility] 12/27/2022 06:24:37 Influenza, split virus, quadrivalent, PF 12/27/2019 completed Not Available [facility] 12/27/2022 06:24:37 Influenza, split virus, quadrivalent, PF 01/08/2021 completed Not Available [facility] 12/27/2022 06:24:37 Influenza, split virus, quadrivalent, PF 01/29/2022 completed Not Available [facility] 12/27/2022 06:24:37 Influenza, split virus, quadrivalent, PF 02/16/2019 completed Not Available [facility] 12/27/2022 06:24:37 Influenza, split virus, quadrivalent, preservative 12/03/2016 completed Not Available [facility] 12/27/2022 06:24:37 Influenza, split virus, quadrivalent, preservative 01/16/2018 completed Not Available [facility] 12/27/2022 06:24:37 COVID-19, mRNA, LNP-S, PF, 100 mcg/0.5mL dose or 50 mcg/0.25mL dose 05/14/2020 completed Not Available [facility] 12/27/2022 06:24:37 COVID-19, mRNA, LNP-S, PF, 100 mcg/0.5mL dose or 50 mcg/0.25mL dose 06/11/2020 completed Not Available [facility] 12/27/2022 06:24:37 COVID-19, mRNA, LNP-S, PF, 100 mcg/0.5mL dose or 50 mcg/0.25mL dose 02/13/2021 completed Not Available [facility] 12/27/2022 06:24:37 COVID-19, mRNA, LNP-S, bivalent, PF, 30 mcg/0.3 mL dose 11/27/2021 completed Not Available [facility] 12/28/19 06:24:38 pneumococcal polysaccharide PPV23 06/12/2012 completed Not Available [facility] 2022 06:24:38 influenza, unspecified formulation 11/05/2013 completed Not Available [facility] 12/27/2022 06:24:38 Past Encounters Encounter ID Performer Location Encounter Start Date Encounter Closed Date Diagnosis/Indication Diagnosis SNOMED-CT Code Diagnosis ICD10 Code [id number] MARÍA NOGUEIRA PA-C [facility] [address] [place] [address] 09/22/2023 14:03:26 09/22/2023 14:42:58 Chronic pain 88521679 G89.29 Type 2 lizy betes mellitus without complication 076356634 E11.9 Skin ulcer 69887981 L98. 499 Chronic ob structive pulmonary disease 01185427 J44.9 J96.10 Essential hypertension 31785603 I10 Hyperlipidemia 33222301 E78.5 Depressive disorder 3548 9007 F32.A Goals Section Goal Description Status Start Date [...] with Medications & referrals to Judy, Nurse Desulfurizer Operator + to Jian for Medical Nutrition [...] 17:45:07 Chronic ulcer of skin Active KAT PERLA Not Available 11/10/2023 18:4 7:39 Essential hypertension Active Ruba Gracia RN Not Available 09/04/2023 17:45:51 Type 2 diabetes mellitus Active KAT BLINDOW Not Available 11/10/2023 18:5 3:32 Payers Encounter Date Sequence Insurance Name Policy Number Policy Powell Covered Member ID Powell Member ID Guarantor Name 09/22/2023 1 [place] [employer] Rosibel Apple Dinh [id number] Rosibel Apple Fabrizio 09/22/2023 2 [facility] (MEDICAID) Rosibel A Fabrizio [id number] Rosibelranjeet Dinh Notes Date Note Type Note Provider Name and Address Organization Details Recorded Time 09/22/2023 text/html HPI Notes: 53y/o female presenting for 3m f/u chronic pain, COPD, CHF, DM2, depression, and HPL. On presentation today, Rosibel reports she is still working to unpack items in new apartment in [place]. Feeling a bit overwhelmed, but overall happy with the move and enjoying new living space. [address], [place], [address], [facility]. 10/16/2023 12:25:31 OBGyn Episode No OBEpisode recorded.
--- OUTSIDE RECORDS SUMMARY | 2023-11-10 17:35 | XMS_ITS | Clinical Summary ---
Author Organization [facility] Address [address] [facility] [place] [address] Care Team Providers Care Press Puller Name Role Phone Maria Del Carmen Nogueira Primary Care Provider [phone] Allergies Active Allergy Reactions Criticality Noted Date Comments Amoxicillin Nausea And Vomiting,Rash 09/15/2017 Sulfa (Sulfonamide Antibiotics) Nausea And Vomiting,Rash 09/15/2017 Medications Medication Sig Dispensed Refills Start Date End Date Status ARIPiprazole (ABILIFY) 10 mg Tablet TAKE ONE TABLET BY MOUTH EVERY DAY 3 04/09/2017 Active fenofibrate (TRIGLIDE) 160 mg Tablet TAKE ONE TABLET BY MOUTH EVERY DAY 3 04/09/2017 Active methylphenidate HCl (RITALIN) 20 mg Tablet TAKE ONE TABLET BY MOUTH TWICE A DAY 0 04/12/2017 Active pantoprazole (PROTONIX) 40 mg Tablet, Delayed Release (E.C.) TAKE ONE TABLET BY MOUTH EVERY DAY 12 04/12/2017 Active atenolol (TENORMIN) 50 mg Tablet Take 50 mg by mouth daily. Active albuterol 90 mcg/actuation HFA Aerosol Inhaler Inhale 2 puffs into the lungs every 4 hours as needed for Wheezing. Use with spacer Active buPROPion (WELLBUTRIN SR) 100 mg tablet sustained-release 12 hr Take 100 mg by mouth daily. Active lactobacillus with pectin 75 million cell -100 mg Capsule Take 1 capsule by mouth daily. 11/19/2018 Active miconazole (MICOTIN) 2 % Powder Apply topically 2 times daily. 70 g 11/19/2018 Active oxyCODONE-acetamino phen (PERCOCET) 10-325 mg Tablet Take 0.5 tablets by mouth every 6 hours as needed for Pain. 0 11/19/2018 Active Additional Information Patient taking differently: 1 tabletOral EVERY 6 HOURS PRN, Pain, Reported on 12/17/2021 empagliflozin (Jardiance) 10 mg Tablet Take 10 mg by mouth daily. Active gabapentin (Neurontin) 300 mg Capsule Take 900 mg by mouth nightly. Active SITagliptin phosphate (Januvia) 100 mg Tablet Take 100 mg by mouth daily. Active magnesium oxide (Mag-Ox) 400 mg (241.3 mg magnesium) Tablet Take 400 mg by mouth daily. Active insulin aspart U-100 (NovoLOG) 100 unit/mL (3 mL) Insulin Pen Inject subcutaneously 3 times daily (with meals). Sliding scale per PCP Active torsemide (Demadex) 20 mg Tablet Take 20 mg by mouth daily. Active insulin detemir U-100 (Levemir FlexTouch U-100 Insuln) 100 unit/mL (3 mL) Insulin Pen Inject 13 Units subcutaneously nightly. Active azithromycin (Zithromax) 250 mg Tablet Take 250 mg by mouth daily. 11/18/2021 Active busPIRone (Buspar) 7.5 mg Tablet Take 7.5 mg by mouth 2 times daily as needed. 12/04/2021 Active Desvenlafaxine succinate ER (Pristiq) 100 mg Tablet Sustained Release 24 hr Take 1 tablet by mouth daily. 11/26/2021 Active Advair HFA 230-21 mcg/actuation HFA Aerosol Inhaler Inhale 1 puff into the lungs 2 times daily. 11/18/2021 Active ipratropium-albuter oL (Duoneb) 0.5 mg-3 mg(2.5 mg base)/3 mL Solution for Nebulization USE 3 ML IN NEBULIZER EVERY 4 HOURS NEEDED FOR WHEEZING 11/18/2021 Active lisinopriL (Zestril) 40 mg Tablet Take 40 mg by mouth daily. 10/12/2021 Active naloxone (Narcan) 4 mg/actuation Grant, Non-Aerosol 1 IN THE NOSE DIRECTED NEEDED 07/30/2021 Active nicotine (Nicoderm CQ) 14 mg/24 hr Patch 24 hr APPLY 1 PATCH TOPICALLY TO SKIN ONCE DAILY 09/11/2021 Active Incruse Ellipta 62.5 mcg/actuation Disk with Device Inhale 1 puff into the lungs daily. 12/04/2021 Active Active Problems Problem Noted Date Diagnosed Date Morbid obesity 11/18/2018 HELEN (obstructive sleep apnea) 11/18/2018 Chronic low back pain 11/17/2018 Depression 11/17/2018 Anxiety 11/17/2018 Hyperlipidemia 11/17/2018 Hypertension 11/17/2018 Type 2 diabetes mellitus 11/17/2018 COPD (chronic obstructive pulmonary disease) 02/2018 Cigarette smoker 11/17/2018 Overview (11/17/2018): 1/2 PPD Bilateral knee pain 09/15/2017 Resolved Problems Problem Noted Date Diagnosed Date Resolved Date CHF (congestive heart failure) 11/12/2021 12/17/2021 Septic shock 11/18/2018 12/17/2021 Acute kidney injury 11/15/2018 12/18/19 22 Family History Medical History Relation Comments Heart Failure Father Heart Surgery Father Hypertension Father Myocardial Infarction Father Diabetes Maternal Aunt Chronic Obstructive Pulmonary Disease Mother Diabetes Mother Diabetes Paternal Aunt Relation Status Comments Father Maternal Aunt Mother Paternal Aunt Sister Alive Social History Tobacco Use Types Packs/Day Years Used Date Smoking Tobacco: Every Day Cigarettes 1 35 Smokeless Tobacco: Never Alcohol Use Standard Drinks/Week Comments Yes 0 (1 standard drink = 0.6 oz pur e alcohol) occasionaly Sex and Gender Information Value Date Recorded Sex Assigned at Not on file Gender Identity Not on file Sexual Orientation Not on file Last Filed Vital Signs Vital Sign Reading Time Taken Comments Blood Pressure 141/81 12/17/2021 8:40 AM EDT Pulse 90 11/19/2018 8:12 AM EDT Temperature 36.4 ??C (97.5 ??F) 11/19/2018 8:12 AM ED T Respiratory Rate 22 11/19/2018 8:12 AM EDT Oxygen Saturation 94% 11/19/2018 9:00 AM EDT Inhaled Oxygen Concentration - - Weight 117 kg (258 lb) 12/17/2021 8:40 AM EDT Height 139.7 cm (4' 7) 12/17/2021 8:40 AM EDT Body Mass Index 59.96 12/17/2021 8:40 AM EDT Plan of Treatment Health Maintenance Due Date Last Done Comments CT Colonography 1969 Colonoscopy 1969 Colorectal Cancer Screening 1969 FIT DNA 1969 FIT 1969 Sigmoidoscopy (10 year) with FIT yearly 1969 Sigmoidoscopy 1969 Pneumococcal Vaccine: At-Ris k 5-64yrs (1 of 2 - PCV) 06/25/1975 DM Opthalmology Exam 06/25/1979 DM Urine Microalbumin yearly 06/25/1979 HIV screen 06/25/1987 Hepatitis C Screening 06/25/1987 Lipid Screening 06/25/1987 Hepatitis B vaccine (0-59 yrs) (1) 1988 Tetanus/Diphtheria/Pertussis Vaccines (1 - Tdap) 1988 HPV test 06/25/1999 PAP Smear 06/25/1999 Breast Cancer Share Decision Needed 2009 Breast Cancer screening 2009 DM Hemoglobin A1c 02/15/2019 11/16/2018, 11/16/2018 Zoster vaccine (1 of 2) 06/25/2019 DM Creatinine yearly 11/20/2019 11/19/2018, 11/18/2018, 11/17/2018, Additional history exists Covid-19 Vaccine (1 - 2022-2 4 season) 2023 Influenza (Flu) vaccine (1 o f 1 - Influenza standard series) 10/19/2023 Procedures Procedure Name Priority Date/Time Associated Diagnosis Comments HC VENIPUNCTURE STAT 11/19/2018 8:45 AM EDT HEMOGLOBIN A1C Routine 11/16/2018 2:30 AM EDT from Last 3 Months or Most Recently Relevant to Health Maintenance Results * (ABNORMAL) Basic Metabolic Panel (non-fasting) (11/19/2018 8:45 AM EDT) Glucose 168 65 - 199 mg/dL [facility] Comment:Diabetes: >=200 mg/d L plus symptoms Blood Urea Nitrogen 29(H) 8 - 18 mg/dL [facility] Creatinine 1.48(H) 0.70 - 1.20 mg/dL [facility] Sodium 139 135 - 145 mmol/L [facility] Potassium 3.5 3.5 - 5.0 mmol/L [facility] Comment: Please note: ??Patients with WBC >100,000 may have falsely elevated Potassium levels. ??For accurate Potassium quantification in these patients send serum separator tube (gold top) for subsequent determinations. ??Contact the Clinical Chemistry Laboratory if there are any questions. Chloride 100 98 - 107 mmol/L [facility] Carbon Dioxide 26 22 - 31 mmol/L [facility] Anion Gap 13 5 - 15 mmol/L [facility] Calcium 9.7 8.5 - 10.5 mg/dL [facility] Est Glomerular Filtration Rate 41(L) >=60 mL/min/1. 73 m?? [facility] Comment: The eGFR was calculated using the CKD-EPI equation. As with all creatinine based estimates of kidney function, eGFR values calculated with the CKD-EPI equation are not accurate in patients with acute kidney failure, extremes of body mass or the acutely ill. [email or web address] eGFR 48(L) >=60 mL/min/1. 73 m?? [facility] Comment: The eGFR was calculated using the CKD-EPI equation. As with all creatinine based estimates of kidney function, eGFR values calculated with the CKD-EPI equation are not accurate in patients with acute kidney failure, extremes of body mass or the acutely ill. [email or web address] Blood specimen (specimen) 11/19/2018 8:45 AM EDT 11/19/2018 8:58 AM EDT Narrative Resulting Agency Comment Spec In Lab Hoda Casas MD CHEMISTRY ORDERABLES [facility] [place] [address] * (ABNORMAL) Hemoglobin A1c (11/16/2018 2:30 AM EDT) Hemoglobin A1c 6.8(H) 4.3 - 5.6 % [facility] Comment: Reference Range: 4.3 - 5.6% 5.7 - 6.4% - Increased Risk of Developing Diabetes Mellitus >= 6.5% - Consistent with diagnosis of Diabetes Mellitus In the absence of hyperglycemia (i.e. plasma glucose > 200 mg/dL) or classic symptoms of hyperglycemia a repeat measurement of HbA1c should be performed on a separate sample to confirm the diagnosis. Diagnosis and Classification of Diabetes Mellitus, Diabetes Care 2013; 36: Suppl. 1, S67-74 Estimated Average Glucose 149 mg/dL [facility] Comment: eAG equivalents for HbA1c percentages: HbA1c(%) ?eAG(mg/dL) 6.0 ?126 6.5 ?140 7.0 ?154 7.5 ?169 8.0 ?183 8.5 ?197 9.0 ?212 9.5 ?226 10.0 ? 240 Limitations: The eAG calculation has not been validated on women, individuals below 18 years old and above 70 years old, and individuals with hemoglobinopathies. Additional resources are available on the ADA website. Floyd UNGER, Laurie J, Lucio R, et al. ??Translating the A1C assay into estimated average glucose values. ??Diabetes Care 2008:31(8):8442-7329. Blood specimen (specimen) Venous Draw / Unknown 11/16/2018 2:30 AM EDT 11/16/2018 12:33 PM EDT Narrative Resulting Agency Comment Spec In Lab Kandis Tee MD CHEMISTRY ORDERABL ES [facility] [place] [address] from Last 3 Months or Most Recently Relevant to Health Maintenance Advance Directives * Full Code (Latest Code Status on File) Date Activated Date Inactivated Comments 11/15/2018 11:54 PM 11/19/2018 1:26 PM Question Answer Comments Does patient have capacity to make decision: No Code Status decision being made per: Attending o f Record Care Teams Press Puller Relationship Specialty Start Date End Date Maria Del Carmen Nogueira PA [address] [place] [address] PCP - General Family Medicine 09/05/21
--- OUTSIDE RECORDS SUMMARY | 2023-11-10 17:35 | XMS_ITS | Encounter Summary ---
Author Organization [facility] Address [facility] [place] [address] Care Team Providers Care Student Career Development Specialist Name Role Phone Maria Del Carmen Nogueira Primary Care Provider [phone] Reason for Visit * Reason Comments Congestive Heart Failure Hypertension * Consultation - Closed Specialty Diagnoses / Procedures Referred By Remi bernardo Referred To Contact Cardiology Diagnoses CHF Procedures NEW PATIENT Malissa Alvarado, MICROBIOLOGY QUALITY CONTROL TECHNICIAN [address] [place] [address] Miguel Glass MD [facility] [place] [address] Referral ID Status Reason Start Date Expiration Date Visits Re quested Visits Authorized [id number] Closed 12/17/2021 12/17/2022 1 1 Encounter Details Date Type Department Care Team (Late st Contact Info) Description 12/17/2021 8:20 AM EDT Office Visit Cardiology at [address] [phone] Miguel Glass MD [facility] [place] [address] Dyspnea, unspecified type Social History Tobacco Use Types Packs/Day [...] Pressure 141/81 12/17/2021 8:40 AM EDT Pulse - - Temperature - - Respiratory Rate - - Oxygen Saturation - - Inhaled Oxygen Concentration - - Weight 117 kg (258 lb) 12/17/2021 8:40 AM EDT Height 139.7 cm (4' 7) 12/17/2021 8:40 AM EDT Body Mass Index 59.96 12/17/2021 8:40 AM EDT documented in this encounter Progress Notes * Miguel Glass MD - 12/17/2021 8:20 AM EDT Images from the original note were not included. CARDIOLOGY NEW OUTPATIENT PRIMARY CARE PROVIDER: VERNA Irving PROBLEM LIST: Patient Active Problem List Diagnosis ??? Morbid obesity ??? HELEN (obstructive sleep apnea) ??? Chronic low back pain ??? Depression ??? Anxiety ??? Hyperlipidemia ??? Hypertension ??? Type 2 diabetes mellitus ??? COPD (chronic obstructive pulmonary disease) ??? Cigarette smoker 1/2 PPD ??? Bilateral knee pain MEDICATIONS: Current Outpatient Medications Medication Sig Dispense Refill ??? torsemide (Demadex) 20 mg Tablet Take 20 mg by mouth daily. ??? insulin detemir U-100 (Levemir FlexTouch U-100 Insuln) 100 unit/mL (3 mL) Insulin Pen Inject 13Units subcutaneously nightly. ??? azithromycin (Zithromax) 250 mg Tablet Take 250 mg by mouth daily. ??? busPIRone (Buspar) 7.5 mg Tablet Take 7.5 mg by mouth 2 times daily as needed. ??? Desvenlafaxine succinate ER (Pristiq) 100 mg Tablet Sustained Release 24 hr Take 1 tablet by mouth daily. ??? Advair HFA 230-21 mcg/actuation HFA Aerosol Inhaler Inhale 1 puff into the lungs 2 times daily. ??? ipratropium-albuteroL (Duoneb) 0.5 mg-3 mg(2.5 mg base)/3 mL Solution for Nebulization USE 3 MLIN NEBULIZER EVERY 4 HOURS NEEDED FOR WHEEZING ??? lisinopriL (Zestril) 40 mg Tablet Take 40 mg by mouth daily. ??? naloxone (Narcan) 4 mg/actuation [place], Non-Aerosol 1 IN THE NOSE DIRECTED NEEDED ??? Incruse Ellipta 62.5 mcg/actuation Disk with Device Inhale 1 puff into the lungs daily. ??? empagliflozin (Jardiance) 10 mg Tablet Take 10 mg by mouth daily. ??? gabapentin (Neurontin) 300 mg Capsule Take 900 mg by mouth nightly. ??? SITagliptin phosphate (Januvia) 100 mg Tablet Take 100 mg by mouth daily. ??? magnesium oxide (Mag-Ox) 400 mg (241.3 mg magnesium) Tablet Take 400 mg by mouth daily. ??? insulin aspart U-100 (NovoLOG) 100 unit/mL (3 mL) Insulin Pen Inject subcutaneously 3 times daily (with meals). Sliding scale per PCP ??? lactobacillus with pectin 75 million cell -100 mg Capsule Take 1 capsule by mouth daily. ??? miconazole (MICOTIN) 2 % Powder Apply topically 2 times daily. 70 g 0 ??? oxyCODONE-acetaminophen (PERCOCET) 10-325 mg Tablet Take 0.5 tablets by mouth every 6 hours as needed for Pain. (Patient taking differently: Take 1 tablet by mouth every 6 hours as needed for Pain.) 0 ??? atenolol (TENORMIN) 50 mg Tablet Take 50 mg by mouth daily. ??? albuterol 90 mcg/actuation HFA Aerosol Inhaler Inhale 2 puffs into the lungs every 4 hours as needed for Wheezing. Use with spacer ??? buPROPion (WELLBUTRIN SR) 100 mg tablet sustained-release 12 hr Take 100 mg by mouth daily. ??? ARIPiprazole (ABILIFY) 10 mg Tablet TAKE ONE TABLET BY MOUTH EVERY DAY 3 ??? fenofibrate (TRIGLIDE) 160 mg Tablet TAKE ONE TABLET BY MOUTH EVERY DAY 3 ??? methylphenidate HCl (RITALIN) 20 mg Tablet TAKE ONE TABLET BY MOUTH TWICE A DAY 0 ??? pantoprazole (PROTONIX) 40 mg Tablet, Delayed Release (E.C.) TAKE ONE TABLET BY MOUTH EVERY DAY12 ??? nicotine (Nicoderm CQ) 14 mg/24 hr Patch 24 hr APPLY 1 PATCH TOPICALLY TO SKIN ONCE DAILY No current facility-administered medications for this visit. Subjective: Patient ID: Rosibel Dinh is a 51 y.o. female. HPI: 51 f presents on referral from gp for pulmonary volume overload. She had presented to [facility] in July with what seems like a COPD exacerbation. She was treated as per usual, including with steroids. A few days later, she represented in acute respiratory failure requiring PAP. CXR demonstrated blunted costophrenic angles. Echocardiography demonstrated normal global and regional LV function, no significant valve disease, and as PASP of 40 mmHg. She was also noted to have yellow-green sputum, and was with significant hypertension (with SBP bordering 200). Since then, she has been stable. She is with nyha iii-brian dyspnea as a function of lung disease andmorbid obesity, as well as deconditioning amidst MSK issues (knees, back). Weight ist stable withina few pounds. Mild circadian peripheral edema. Torsemide dosage effective BP at home is well controlled Continues to smoke cigarettes- though decreasing Objective: Patient Vitals for the past 24 hrs: BP 12/17/21 0840 141/81 Gen: pleasant female in NAD Cor: rrr, s1/s2 of nl character and amplitude, no m/r/g. Estimated RAP not elevated. Carotids without bruit. Pulm: faint without adventitious sound. Normal diaphragmatic movement without use of accessory muscles EKG: nsr, nl ekg TTE: EF 55%, no wmas RV normal s/f No significant valve disease IVC non-dilated and non-plethoric Assessment and Plan: Patient was labeled as being with heart failure, leading to an increased anxiety from the patientand her family. While there may have well been an element of volume overload at the time of her 2ndadmission, this did not arise in a vacuum. Rather, this was in the setting of recent COPD excerebration, steroids, and HTN (although the latter may have been compensatory for VQ mismatch). She does not have cor pulmonale. 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 Rather, she carries an ongoing risk of volume overload (both acute and subacute) from morbid obesity, ongoing nicotine usage,, DM, HTN. I advised continuation of torsemide, and to increase to BID should she be met with brisk weight gain PLUS steady peripheral edema or increasing dyspnea. Would doBID torsemide also should she gather another COPD exacerbation and require glucocorticoids. She was reasonably started on a SGLT2i, which have been helpful in the setting of HFpEF. Again, I do not think this label is applicable at this time, unless/until there is an episode of volume overload independent of other clear inciting factors. To reduce the risk of volume overload, recommended sodium limitation (2-2.5 g/d), weight loss, smoking cessation, and DM/BP control. Elevation and compression stockings for mild circadian peripheral edema. Exercise also noted as quite important. I do not think routine cardiovascular followup would alter the clinical status. Certainly, should volume status become difficult to manage or a new cardiac issue is at hand, would be happy to see this patient again. Miguel Glass MD Between 45-59 minutes were spent doing patient care, chart care/review (today), and care coordination. documented in this encounter Plan of Treatment Not on file documented as of this encounter Visit Diagnoses Diagnosis Dyspnea, unspecified type documented in this encounter Care Teams Student Career Development Specialist Relationship Specialty Start Date End Date Maria Del Carmen Nogueira PA [address] [place] [address] PCP - General Family Medicine 09/05/21 documented as of this encounter
--- OUTSIDE RECORDS SUMMARY | 2023-11-10 17:36 | XMS_ITS | Encounter Summary ---
Author Organization [facility] Address [address] [place] [address] Care Team Providers Care Carcass Trimmer Name Role Phone Maria Del Carmen Nogueira PA-C Primary Care Provider + Encounter Details Date Type Department Care Team (Late st Contact Info) Description 08/21/2021 Lab Requisition [facility] Pathology & Laboratory Medicine - [facility] [address], [place] [id number] Outr Resulting Lab, Provider Social History Tobacco Use Types Packs/Day Years Used Date Smoking Tobacco: Never Assessed Interpersonal Safety Answer Date Record ed Physically Hurt Never 11/14/2019 Verbally Threaten Not on file 11/14/2019 Sex and Gender Information Value Date Recorded Sex Assigned at Not on file Gender Identity Not on file Sexual Orientation Not on file documented as of this encounter Plan of Treatment Not on file documented as of this encounter Procedures Procedure Name Priority Date/Time Associated Diagnosis Comments LEGIONELLA ANTIGEN DETECTION, URINE Routine 08/21/2021 2:02 EDT documented in this encounter Results * LEGIONELLA ANTIGEN DETECTION, URINE (08/21/2021 2:02 EDT) Legionella Antigen Detection Negative Negative 08/21/2021 18:41 EDT [facility] Urine URINE SPECIMEN COLLECTION, CLEAN CATCH / Unknown 08/21/2021 2:02 EDT 08/21/2021 16:38 EDT Provider Outr Resulting Lab MICROBIOLOGY - GENERAL ORDERABLES [facility] [address] [place] [address] documented in this encounter Visit Diagnoses Not on filedocumented in this encounter Care Teams Carcass Trimmer Relationship Specialty Start Date End Date Maria Del Carmen Nogueira PA-C PCP - General 03/23/14 documented as of this encounter
--- OUTSIDE RECORDS SUMMARY | 2023-11-10 17:36 | XMS_ITS | Encounter Summary ---
Author Organization [facility] Address [address] [place] [address] Care Team Providers Care Technical Services Manager Name Role Phone Maria Del Carmen Nogueira PA-C Primary Care Provider + Encounter Details Date Type Department Care Team (Late st Contact Info) Description 05/28/2023 Lab Requisition [facility] Pathology & Laboratory Medicine - [facility] [address], [place] [phone] Outr Resulting Lab, Provider Social History Tobacco [...] Procedure Name Priority Date/Time Associated Diagnosis Comments HSV (HERPES SIMPLEX VIRUS) MOLECULAR DETECTION, PCR Routine 05/27/2023 13:54 EDT documented in this encounter Results * HSV (HERPES SIMPLEX VIRUS) MOLECULAR DETECTION, PCR (05/27/2023 13:54 EDT) Herpes Simplex Virus Molecular Detection 1, PCR Negative Negative 05/30/2023 0:10 EDT [facility] Herpes Simplex Virus Molecular Detection 2, PCR Negative Negative 05/30/2023 0:10 EDT [facility] Swab VULVAL STRUCTURE / Unknown 05/27/2023 13:54 EDT 05/28/2023 21:10 EDT Provider Outr Resulting Lab MICROBIOLOGY - GENERAL ORDERABLES [facility] [address] [place] [address] documented in this encounter Visit Diagnoses Not on filedocumented in this encounter Care Teams Technical Services Manager Relationship Specialty Start Date End Date Maria Del Carmen Nogueira PA-C PCP - General 03/23/14 documented as of this encounter
--- OUTSIDE RECORDS SUMMARY | 2023-11-10 17:36 | XMS_ITS | Encounter Summary ---
Author Organization [facility] Address [facility] [place] [address] Care Team Providers Care Retail Sales Director Name Role Phone Maria Del Carmen Nogueira Primary Care Provider [phone] Reason for Visit * Auth/Cert Specialty Diagnoses / Procedures Referred By Contac t Referred To Contact Diagnoses Acute renal failure Acute renal injury/ hypotension Referral ID Status Reason Start Date Expiration Date Visits Re quested Visits Authorized [id number] 1 1 Encounter Details Date Type Department Care Team (Latest Contact Info) Description 11/16/2018 1:35 AM EDT - 11/19/2018 11:15 AM EDT Hospital Encounter 1 [place] [address] Mylene Oakley MD [facility] [place] [address] Olvin Doran MD [address] [place] [id number] Hoda Casas MD [facility] [place] [address] Acute kidney injury; Septic shock; Morbid obesity; HELEN (obstructive sleep apnea) Discharge Disposition: Home with VNA Social History Tobacco Use Types Packs/Day Years [...] EDT documented in this encounter Discharge Summaries * Hoda Casas MD - 11/19/2018 11:15 AM EDT Images from the original note were not included. Discharge Summary Patient Name: Rosibel Bowden Patient Age: 48 y.o. Language: Togolese Race: White Ethnicity: Not nor Admit date: [...] prevent polypharmacy. 3. Recommend repeat CBC and PIE ICER MACHINE on follow up with PCP. Creatinine on [...] inpatient physician through the [facility] Studio Engineer . Issues afterhours and on weekends will be handled by [...] as 500s (typically her BS are ~100-150). She denies any increased work of breathing or shortness of breath, but did notice mild wheezing since yesterday. She denies abdominal pain, nausea, vomiting, changes to her bowel movements. She denies a personal history of renal disease or autoimmune diseases. She has been mindful of taking her home diclofenac and stopped 4 days ago once symptoms started. She denies taking ibuprofen, gabapentin and lisinopril given her overal feeling of malaise. ?? Patient has had pyelonephritis with hospitalization years ago. Symptoms she states are similar, butrecalls that back pain was worse. ?? In [...] prompt aggressive fluid resuscitation was able to be weaned off pressors. She remained hemodynamically stable appropriate for transfer to the floor. Ptwas treated for acute pyelonephritis causing severe sepsis with ceftriaxone and after morning rounds w/ concern for soft tissue infection under L pannus vancomycin was added for additional coverage of MRSA. A CXR was obtained to r/o other possible infectious etiology and was w/o consolidation. We later received notification from [place] that 3/3 blood cultures grew E.coli. Blood cultures at have been negative. She was later switched to cephalexin and doxycycline. Miconazole was continued. ?? 2. ??AFUA likely secondary to ATN - improving?? Acute non cardiogenic pulmonary edema from resuscitation- weight gain of 22 pounds Cr decreased from 3.79??on admission to 1.94??on 11/18. Per review of PCP medical records her Cr was0.79 on 11/09/18. This was thought to be more from ATN from septic shock. Her BUN:Cr ratio was 15 and Urine sodium 65, which favors ATN as etiology of AFUA. Her urine output slowly improved. Creatinineon discharge was 1.48. Given extra lasix for volume overload and started back on diuretics. Will need outpatient follow up. ?? 3.??Dyspnea secondary to volume overload and COPD - improving? She received >3L of fluid since admission for septic shock management of hypotension, suspect she may have become volume overloaded. She has COPD [...] Recent Labs 11/19/18 0513 11/18/18 0440 11/17/18 012 WBC 8.6 8.5 7.4 HGB 13.2 12.8 [...] MD Your Primary Care Provider: VERNA Irving [phone] For questions regarding this document or issues relating to this hospitalization on the Medical Service, please contact your inpatient physician through the [facility] Studio Engineer . Issues afterhours and on weekends will be handled by the Hospitalist staff on-call. General Instructions None Future Appointments and Orders Future Orders Complete By Expires Referral to Home Health - at DISCHARGE [[id number] CPT(R)] As directed Process Instructions: Scheduling Instructions: Comments: DOCUMENTATION FOR VNA SERVICES (INCLUDING THOSE PATIENTS WITH MEDICARE COVERAGE REQUIRING HOME VNA SERVICES AND/OR HOSPICE SERVICES) PATIENT'S LOCATION: [address] [address] (home) Cell: Telephone Information: Pharmacy Retail Support Specialist's Name: self In discussion with the attending physician, it is certified that this patient is under their care and that they, or a Nurse Practitioner,Clinical Nurse specialist or Physician Busboy who is working directly with them, had a face to face encounter that meets the physician face to face encounter requirements with this patient on 11/19/2018 The encounter with the patient was in whole, or in part, for the following medical condition, whichis the primary reason for home health care services: Wound care, blood pressure monitoring, In discussion with the provider, it is certified that, based on their findings, the following services are medically necessary for home health services. To provide the following care/treatments with the clinical findings supporting the need for services as follows: HOME CARE ORDERS: RN ORDERS:Assess vital [...] Please contact the wound care team at [phone] with skin and wound care concerns or questions. ?? Please assess for additional home care services (PT/OT/BAND SAW OPERATOR/HAND CANDY MOLDER) with goal of maximizing patient's functional abilities HOME HEALTH CARE AGENCY: [facility]. PHONE: [phone] FAX: [phone] Start of care: 24-48 hours post-discharge FOR MEDICARE ONLY: In discussion with the attending physician, it is certified that the clinical findings support thatthis patient is temporarily homebound because absences from home require considerable and taxing effort due to: Dyspnea at rest/with ambulation > 10 feet Unable to ambulate community surfaces or distances unassisted due to weakness and deconditioning from inpatient hospitalization Please note that any additional orders needs or changes will need to be obtained from this patient's PCP: VERNA Irving [address] / [place] [address] All A agencies which cover the area of patient's residence have been reviewed, either verbally roel writing, and patient/family have chosen the home health care agency noted Questions: Agency name and contact information: [facility] Patient location post discharge: home What services are requested: Registered Nurse Start date: Responsible MD post discharge contact info: PCP VERNA Nogueira Discharge References/Attachments None Hoda Casas MD * MelissaHeenaKadie L - 11/19/2018 8:44 AM EDT Images from the original note were not included. Discharge Summary Patient Name: Rosibel Bowden Patient Age: 48 y.o. Language: Togolese Race: White Ethnicity: Not nor Admit date: [...] inpatient physician through the [facility] Studio Engineer . Issues afterhours and on weekends will be handled by [...] of T2DM, mood disorder on ariprazole and COPD who presented to [facility] with left flank pain, fever and decreased urine output. ?? She reports that 4 days ago she began feeling burning with urination. She developed lower abdominalpressure and back pain and eventually noticed her urine output decreased despite her not changing PO fluid intake. 3 days ago, she also developed chills with diaphoresis. She noticed her glucose levels became more difficult to control ranging as high as 500s (typically her BS are ~100-150). Her back pain increased and she presented to [facility] ER. ?? On arrival, she was found to have hypotension with urinalysis suspicious for infection. She was started on 750mg Levofloaxicin and 2.5L IVF. Her hypotension continued, lowest systolic was 60. She wasadmitted to the ICU and stated on Levophed. [...] noted purulent cellulitis of LLQ pannus concerning forinfection so vancomycin was added for MRSA coverage. [...] panniculitis - improving - Received notification from [place] that 3/3 blood cultures grew E.coli. Blood cultures here thus far have been negative - Lactate level normal. - She was significantly hypotensive on arrival, with signs of end organ damage given her increased creatinine level. UA suggested urinary source of infection, urine culture has shown gram negative rods with culture sensitivities still pending. - Significant redness [...] review of PCP medical records her Cr was0.79 on 11/09/18 - AFUA likely secondary to ATN due to polypharmacy with nephrotoxic medication at home, NSAID use and sepsis. Her BUN:Cr ratio was 15 and Urine sodium 65, which favors ATN as etiology of AFUA more thana pre-renal cause from systemic vasodilation/sepsis. - Holding nephrotoxic agents ?? 3. Dyspnea secondary to volume overload and COPD - improving - she received >3L of fluid since admission for septic shock management of hypotension, suspect she may have become volume overloaded - O2 Sat 93-95%. She denies shortness of breath now. At baseline she has COPD and current every daysmoker about 1/2 PPD. She also reports using O2 at night at home for sleep apnea but does not use CPAP because it didn't work for her. - CXR negative for acute process on admission - She now has increased urine output and is net negative this morning with improvement in symptoms.Hesitant to start diuretics given recent and still [...] (97.2 ??F) Oral -- 24 95 % 11/18/18 2010 115/64 36.7 ??C (98.1 ??F) Oral -- 24 93 % 11/18/18 1627 -- -- -- 88 -- -- 11/18/18 1104 120/80 36.5 ??C (97.7 ??F) Oral 98 20 95 % Functional and Cognitive Status: Alert and Oriented Important Studies and Lab Data: Labs: Last 3 wbc, hgb, hct plt Recent Labs 11/19/18 0513 11/18/1843911/17/18 012 WBC 8.6 8.5 7.4 HGB 13.2 12.8 12.2 HCT 40.9 40.3 36.9 PLATELET 212 158 125* Last 3 Lytes Recent Labs 11/19/18 0845 11/18/1843911/17/18 012 NA 139 137 135 K 3.5 3.5 3.2* CL 100 100 101 CO2 26 24 21* BUN 29* 41* 48* CREATININE 1.48* 1.94* 2.59* Estimated Creatinine Clearance: 61 mL/min (A) (based on SCr of 1.48 mg/dL (H)). Last 3 LFTs Recent Labs 11/16/18 0230 AST 48* ALT 24 ALKPHOS 105 BILITOT 0.6 Last Ca, Mg, Phos Recent Labs 11/19/18 0845 11/16/18 0230 CALCIUM 9.7 < > 8.9 PHOS -- -- 2.7 < > = values in this interval not displayed. Last 3 Coags Recent Labs 11/16/18 0230 PT 13.4* INR 1.2 PTT 29 Last 3 HgbA1C Recent Labs 11/16/18 0230 HA1C 6.8* Results for ROSIBEL BOWDEN ( ) as of 11/17/2018 12:13 ?? Ref. Range 11/16/2018 03:31 Color UA Latest Ref Range: Yellow [place] Appearance UA Latest Ref Range: Clear Cloudy (A) Spec [place] UA Latest Ref Range: 1.002 - 1.030 [...] Note ?? Situation: Asked to see Rosibel Apple Bowden by Cami Felix, RN for Left [...] moisture under the left pannus. Intertrigo best treatedwith silver foam for now to absorb moisture, [...] Please contact TANIA MCFARLAND RN on pager [phone] or the wound care team at [phone] or pager [phone] with skin and wound care concerns or questions. ?? Electronically Signed By: TANIA MEENA, RN Nutrition Services - Initial Note Reason [...] is receiving assistance for meal choices from teaching dietitian. She reported a poor appetite for 1 week AROMATHERAPIST, denies any unintentional wt loss. Patient has [...] consulted in the interim. CORIE XiaoR Pager# [phone] ??2:55 PM Pending Studies and Lab Data: [...] MD Your Primary Care Provider: VERNA Irving [phone] For questions regarding this document or issues relating to this hospitalization on the Medical Service, please contact your inpatient physician through the [facility] Studio Engineer . Issues afterhours and on weekends will be handled by the Hospitalist staff on-call. General Instructions None Discharge References/Attachments None documented in this encounter Discharge Instructions * Patient Instructions* Hoda Casas MD - 11/18/2018 2:26 PM EDT [...] MD Your Primary Care Provider: VERNA Irving [phone] For questions regarding this document or issues relating to this hospitalization on the Medical Service, please contact your inpatient physician through the [facility] Studio Engineer . Issues afterhours and on weekends will be handled by the Hospitalist staff on-call. documented in this encounter Medications at Time of Discharge Medication Sig Dispensed Refills Start Date End Date lactobacillus with pectin 75 million cell -100 mg Capsule Take 1 capsule by mouth daily. 11/19/2018 miconazole (MICOTIN) 2 % Powder Apply topically 2 times daily. 70 g 11/19/2018 oxyCODONE-acetaminoph en (PERCOCET) 10-325 mg Tablet Take 0.5 tablets by mouth every 6 hours as needed for Pain. 0 11/19/2018 atenolol (TENORMIN) 50 mg Tablet Take 50 mg by mouth daily. albuterol 90 mcg/actuation HFA Aerosol Inhaler Inhale 2 puffs into the lungs every 4 hours as needed for Wheezing. Use with spacer buPROPion (WELLBUTRIN SR) 100 mg tablet sustained-release 12 hr Take 100 mg by mouth daily. ARIPiprazole (ABILIFY) 10 mg Tablet TAKE ONE TABLET BY MOUTH EVERY DAY 3 04/09/2017 fenofibrate (TRIGLIDE) 160 mg Tablet TAKE ONE TABLET BY MOUTH EVERY DAY 3 04/09/2017 methylphenidate HCl (RITALIN) 20 mg Tablet TAKE ONE TABLET BY MOUTH TWICE A DAY 0 04/12/2017 pantoprazole (PROTONIX) 40 mg Tablet, Delayed Release (E.C.) TAKE ONE TABLET BY MOUTH EVERY DAY 12 04/12/2017 albuterol (PROVENTIL) 2.5 mg /3 mL (0.083 %) Solution for Nebulization Take 2.5 mg by nebulization every 4 hours as needed for Wheezing. 12/17/2021 cephALEXin (KEFLEX) 500 mg Capsule Take 1 capsule by mouth 4 times daily for 4 days. 16 capsule 11/19/2018 11/23/2018 doxycycline monohydrate (MONODOX) 100 mg Capsule Take 1 capsule by mouth 2 times daily for 4 days. 8 capsule 11/19/2018 11/21/2018 gabapentin (NEURONTIN) 800 mg Tablet Take 1 tablet by mouth nightly. 30 tablet 11/19/2018 11/12/2021 rosuvastatin (CRESTOR) 40 mg Tablet Take 40 mg by mouth daily. 12/17/2021 furosemide (LASIX) 40 mg Tablet Take 40 mg by mouth 2 times daily as needed. 12/17/2021 fluticasone propionate (FLOVENT) 220 mcg/actuation HFA Aerosol Inhaler Inhale 1 puff into the lungs 2 times daily. 12/17/2021 norethindrone (AYGESTIN) 5 mg Tablet Take 5 mg by mouth daily. 12/17/2021 glipiZIDE (GLUCOTROL XL) 2.5 mg Tablet Extended Rel 24 hr Take 2.5 mg by mouth daily. 12/17/2021 documented as of this encounter Progress Notes * Hoda Casas MD - 11/19/2018 11:15 AM [...] spent >30 minutes (Day of Discharge Code 22402) involved in the final examination of the [...] changes and additional plans. Hoda Casas MD * Sigifredo Terry RN - 11/19/2018 10:28 AM EDT Rosibel Bowden discharged to Home by private car with sister. Meds given per order, see MAR. Allbelongings sent with patient. STEWART removed, skin free from pressure ulcers. Discharge instructions, medications, and follow-up appointments reviewed, education provided on when to take her schedule meds and meds that are discontinued, all questions answered. VNA paperwork faxed. Patient instructed to call with concerns. * Maci Antonio DT - 11/18/2018 2:41 PM EDT Nutrition Services - Initial Note Rosibel A Fabrizio : 1970 AGE: 48 y.o. Patient Active [...] is receiving assistance for meal choices from teaching dietitian. She reported a poor appetite for 1 week AROMATHERAPIST, denies any unintentional wt loss. Patient has [...] consulted in the interim. CORIE XiaoR Pager# [phone] * Hoda Casas MD - 11/18/2018 9:05 AM EDT Hospital Medicine Attending Inpatient Daily Progress Note Admit Date: 11/16/2018 Hospital Day 2 days Active Hospital Problems Diagnosis ??? Septic shock ??? Morbid obesity ??? HELEN (obstructive sleep apnea) ??? Type 2 diabetes mellitus ??? Acute kidney injury Resolved Hospital Problems No resolved problems to display. [facility] Active Non-Hospital Problems Diagnosis ??? Chronic low back pain ??? Depression ??? Anxiety ??? Hyperlipidemia ??? Hypertension ??? COPD (chronic obstructive pulmonary disease) ??? Cigarette smoker ??? Bilateral knee pain INTERVAL HISTORY/OVERNIGHT EVENTS: - transferred to [facility] - feeling better today - sitting up in the chair - blood culture from [facility] grew E coli 3 bottles - denies [...] %] Intake/Output Summary (Last 24 hours) at 11/18/2018904 Last data filed at 11/17/2018 1700 Gross per 24 hour Intake 600 ml Output 1150 ml Net -550 ml Patient Vitals for the past 168 hrs: Weight 11/17/18 0200 135 kg (297 lb 9.9 oz) 11/16/18 0145 123.3 kg (271 lb 13.2 oz) GENERAL: awake, alert, NAD HEENT: [place] conjunctiva, anicteric sclerae, oropharynx clear HEART: regular [...] 173 Last 3 Lytes Recent Labs 11/18/18 04411/17/18 0125 11/16/18 0230 NA 137 135 134* [...] levophed. She was started on ceftriaxone and vancomycinwas later added as she was round to [...] ?? DVT Prophylaxis: Heparin SC Tubes/Drains: Anshul goodwin IV Access: PIV Code Status: FULL Disposition: Likely home if cleared by PT/OT once kidney function improves Primary Care Provider: VERNA Irving [phone] Inpatient Certification Attestation: IPI Certification I certify that I am a D-H credentialed attending provider with admitting privileges and that the patient meets or has met medical necessity to require an inpatient IPI level of care meeting a minimumof two midnights or is on the [facility] inpatient only procedure list (status C) due to: acute kidney injury necessitating close monitoring of fluid balance such as intravenous fluids and/or titration of medication to achieve optimal effect and minimize the chance of immediate or severe side effects; sepsis on IV antibiotics Hoda Casas MD Team Pager(MD Coverage 09/09): #[phone] 11/18/2018 * Cammie Gallego RN - 11/17/2018 7:22 PM EDT 1921 patient transported, in stable condition, via bed, to new room on Med-Surg--accompanied by transporters. Patient chart, medications, medical equipment, et personal belongings sent with the patient. Patient to notify family of transfer * Hoda Casas MD - 11/17/2018 10:49 AM EDT [facility] Medicine Attending Inpatient Daily Progress [...] 13.2 oz) GENERAL: awake, alert, NAD HEENT: [place] conjunctiva, anicteric sclerae, oropharynx clear NECK: Supple, [...] levophed. She was started on ceftriaxone and vancomycinwas later added as she was round to [...] function improves Primary Care Provider: VERNA Irving [phone] Inpatient Certification Attestation: IPI Certification I certify that I am a D-H credentialed attending provider with admitting privileges and that the patient meets or has met medical necessity to require an inpatient IPI level of care meeting a minimumof two midnights or is on the [facility] inpatient only procedure list (status C) due to: acute kidney injury necessitating close monitoring of fluid balance such as intravenous fluids and/or titration of medication to achieve optimal effect and minimize the chance of immediate or severe side effects; sepsis on IV antibiotics Hoda Casas MD Team Pager(MD Coverage 09/09): #[phone] 11/18/2018 * Candace Crain RN - 11/17/2018 10:43 AM EDT Office of Care Management Progress Note Rosibel Bowden has been provided a list of Home Health Agencies/DME vendors which serve their preferred geographic area. A letter describing our affiliations was reviewed with them and they were educated about their right to choose where referrals are placed. Patient requests referral to: [facility] [employer]. PHONE: [phone] FAX: [phone] left at [facility] (ph: [phone]) for PCP VERNA Nogueira transition care RN regarding VNA referral post-discharge. Expected date of discharge: 2-3 days v TBD Transportation: Private vehicle Oxygen vendor: [facility] Referral routed to the [employer] for matching with agency/vendor and to provide any required information. Alisha Crain RNCM P. [phone] * Cammie Gallego RN - 11/17/2018 2:50 AM EDT 0250 resident notified of morning K 3.2 et creat down to 2.59 from 3.79 yesterday morning. New orders received * Reina Bassett MD - 11/16/2018 3:20 AM [...] medications for GFR<15 ml/dL. Optimize Hemodynamics with MAP>70mm Hg. Order UA. Follwing appropriate hydration perform Lasix stress test (1.5 mg/Kg of Lasix to make > 200 ml urine in 2 hours). Treat UTI with Abx. #3 DMT2 #4 Obesity documented in this encounter H&P Notes * Kandis Tee MD - 11/16/2018 12:26 PM EDT Inpatient Hospital Medicine - Admission Note Problem List: Active Hospital Problems Diagnosis ??? Acute renal failure Resolved Hospital Problems No resolved problems to display. Active Non-Hospital Problems Diagnosis ??? Bilateral knee pain ID: 48 y.o. Female presents to [facility] with Urosepsis History of Present Illness: [facility] Rosibel Bowden is a 48 yo female with PMH significant for mood disorder, obesity, T2DM, and reactive airway disease who presented with L flank pain, fever, anuria and AFUA stage III. ?? Pt was admitted to the ICU on levophed but with prompt aggressive fluid resuscitation was able to be weaned off pressors. She remained hemodynamically stable appropriate for transfer to the floor. Ptwas treated for acute pyelonephritis causing severe sepsis [...] 24 hr TAKE TWO TABLETS BY MOUTH TWICEA DAY 3 Taking ??? methylphenidate HCl (RITALIN) 10 mg Tablet TAKE ONE TABLET BY MOUTH DAILY IN COMBINATION WITH 20MG TWICE DAILY 0 Taking ??? methylphenidate HCl (RITALIN) 20 mg Tablet TAKE ONE TABLET BY MOUTH TWICE A DAY 0 Taking ??? oxyCODONE-acetaminophen (PERCOCET) 10-325 mg Tablet TAKE ONE TABLET BY MOUTH FOUR TIMES A DAY NEEDED FOR PAIN 0 Taking ??? pantoprazole (PROTONIX) 40 mg Tablet, Delayed Release (E.C.) TAKE ONE TABLET BY MOUTH EVERY DAY12 Taking Allergies: Allergies Allergen Reactions ??? Amoxicillin [...] file Gets together: Not on file Attends spiritism service: Not on file Active member of [...] place, and time. She displays normal reflexes. No cranial nerve deficit. Coordination normal. Skin: Cold skin [...] blood, send to lab ([facility]) Result Value Ref Range Lactate WB 1.7 [...] mcL Appearance UA Cloudy (A) Clear Spec [place] UA 1.017 1.002 - 1.030 Color UA [...] CAP in new septic pt TECHNIQUE: AP viewof the chest COMPARISON: Chest radiograph 11/15/2018 FINDINGS: Low lung volumes with bilateral atelectasis. Lungs otherwise clear. Trace bilateral pleural effusions. No pneumothorax. Cardiomediastinalsilhouette is unchanged. Low lung volumes with bibasilar [...] prompt aggressive fluid resuscitation was able to be weaned off pressors. Pt was treated for acute pyelonephritis causing severe sepsis with ceftriaxone and after morning rounds w/ concern for softtissue infection under L pannus vancomycin was added [...] home medications including methyphenidate, abilify, venlafaxine (home desvenlafaxine), and wellbutrin #skin rash -continue miconazole, Vancomycin till [...] and/or Referring Physician. Kandis Tee MD 11/16/2018 * Osvaldo Beebe H - 11/16/2018 2:07 AM [...] as 500s (typically her BS are ~100-150). She denies any increased work of breathing or shortness of breath, but did notice mild wheezing since yesterday. She denies abdominal pain, nausea, vomiting, changes to her bowel movements. She denies a personal history of renal disease or autoimmune diseases. She has been mindful of taking her home diclofenac and stopped 4 days ago once symptoms started. She denies taking ibuprofen, gabapentin and lisinopril given her overal feeling of malaise. Patient has had pyelonephritis with hospitalization years ago. Symptoms she states are similar, butrecalls that back pain was worse. In the [...] 24 hr TAKE TWO TABLETS BY MOUTH TWICEA DAY 3 Taking ??? methylphenidate HCl (RITALIN) 10 mg Tablet TAKE ONE TABLET BY MOUTH DAILY IN COMBINATION WITH 20MG TWICE DAILY 0 Taking ??? methylphenidate HCl (RITALIN) 20 mg Tablet TAKE ONE TABLET BY MOUTH TWICE A DAY 0 Taking ??? oxyCODONE-acetaminophen (PERCOCET) 10-325 mg Tablet TAKE ONE TABLET BY MOUTH FOUR TIMES A DAY NEEDED FOR PAIN 0 Taking ??? pantoprazole (PROTONIX) 40 mg Tablet, Delayed Release (E.C.) TAKE ONE TABLET BY MOUTH EVERY DAY12 Taking Allergies: Allergies Allergen Reactions ??? Amoxicillin [...] file Gets together: Not on file Attends spiritism service: Not on file Active member of [...] hours. ABG: No results for input(s): PHART, [id number], PO2ART, HAD0RMN in the last 168 hours. Coags: Recent [...] be able to discontinue levophed by morning. If not, plan for arterial and central venous line. Curiously, leukocyte count is normal - I wonderif this is due to her history of [...] Not in acute pain, will reassess in pbx manager - AAO X 4 # Pulmonary: - [...] 11/16/2018 Internal Medicine, PGY 3 Team Pager: [phone] Associated attestation - Olvin Doran MD - [...] for a few basilar crackles. Data are reviewed. Notably, her Cr is 3.8. We will continue her antibiotics but add vancomycin for skin coverage given the findings above. I believe she is stable to move out of the intensive care unit. I would add that her x-ray shows suggestion of pulmonary hypertension and proper treatment of her sleep disordered breathing going forward is essential. I would recommend outpatient sleep testing andappropriate therapy as indicated. documented in this encounter Miscellaneous Notes * Plan of Care - Jen Joel RN [...] VSS on 4L over night. C/o headache given PRN Tylenol w/ good effect. PRN neb given for wheezing w/ good effect. Pt had IV ABX d/c'd and wasstarted on PO Keflex and lactobacillus. Pt up to BR independently. Pt able to make needs known. No scute changes for shift. PLAN MOVING FORWARD: D/c to home on PO ABX, wound care for panis INDIVIDUALIZED FALL PREVENTION INTERVENTIONS: Patient-specific fall risk factors per assessment: [current deficits]: Medium Fall Risk: Generalized weakness, O2 tubing Assistance [level of assistance required [...] care. Outcome: Ongoing (Interventions Implemented as Appropriate) 11/19/18 0426 Skin Integrity Impairment, Risk/Actual (Adult) Skin Integrity/Wound [...] Ongoing (Interventions Implemented as Appropriate) 11/16/18 0544 11/18/182147 Coping/Psychosocial Plan Of Care Reviewed With [...] Conf Outcome: Ongoing (Interventions Implemented as Appropriate) 11/19/18425 Interdisciplinary Rounds/Family Conf Participants nursing;patient;advanced practice nurse * Plan of Care - Dionte Rice RN [...] any pain. Remained on 2L NC throughout shift.Sister visited this afternoon. No acute changes, will [...] listening utilized;verbalization of feelings encouraged;self-care encouraged -- * Med Student Progress Note - Torres Kadie Willis - 11/18/2018 1:31 PM EDT Hospital [...] of T2DM, mood disorder on ariprazole and COPD who presented to [facility] with left flank pain, fever [...] soft tissue lesion under pannus concerning for infectionso vancomycin was added for MRSA coverage. Lab [...] nausea or diarrhea. Received a call from [facility], 3/3 blood cultures grew E.coli. Blood cultures here at [facility] still negative. ROS: General: Reports fevers, chills and fatigue per HPI. Also reports recent 100lb weight loss over thepast 6m-1y using weight watchers. HEENT: Denies recent [...] but does not recent skin break down onthe left side. Psych: History of depression and [...] S2 normal. Exam reveals no gallop and nofriction rub. No murmur heard. Pulses: Radial pulses are 2+ on the right side, and 2+ on the left side. Pulmonary/Chest: Effort normal. No accessory muscle usage. No respiratory distress. She has decreased breath sounds. She has no wheezes. On 2L NC Abdominal: Soft. Bowel sounds are normal. She exhibits distension. There is no tenderness. There isno rigidity, no rebound and no guarding. Musculoskeletal: [...] 1613 11/17/18 1147 11/17/18 0724 11/17/18 0622 11/16/18201211/16/18 1630 11/16/18 1137 POCGLU 202* 140 169 154 167 166 136 191 137 131 Results for ROSIBEL BOWDEN ( ) as of 11/17/2018 12:13 Ref. Range 11/16/2018 03:31 Color UA Latest Ref Range: Yellow Mar[place] Appearance UA Latest Ref Range: Clear Cloudy (A) Spec [place] UA Latest Ref Range: 1.002 - 1.030 [...] interpretation and agree with the findings, Ray Mjeia at 11/16/2018 11:12 AM ?? Thank you [...] panniculitis - improving - Received notification from [place] that 3/3 blood cultures grew E.coli. Blood cultures thus far here have been negative - She was significantly hypotensive on arrival, with signs of end organ damage given her increased creatinine level. UA suggested urinary source of infection, urine culture has shown gram negative rods with culture sensitivities still pending. - Significant redness [...] with nephrotoxic medication at home, NSAID use and sepsis. Her BUN:Cr ratio was 15 and Urine sodium 65, which favors ATN as etiology of AFUA more thana pre-renal cause from systemic vasodilation/sepsis. Plan: - avoid [...] net negative this morning with improvement in symptoms.Hesitant to start diuretics given recent and still [...] home medications including methyphenidate, abilify, venlafaxine (home desvenlafaxine), and wellbutrin ?? 6. oral thrush Plan - nystatin mouth wash IV access:PIV DVT PPX: Heparin Team Pager(MD Coverage 09/09): #[phone] PCP: VERNA Irving [phone] Kadie Torres 11/18/2018 * Plan of Care - Emilee Abreu RN [...] if applicable: No CPG GOAL OUTCOME EVALUATION: * Med Student Progress Note - Kadie Torres - 11/17/2018 8:08 AM EDT Hospital Medicine [...] of T2DM, mood disorder on ariprazole and COPD who presented to [facility] with left flank pain, fever and decreased urine output. She reports that 4 days ago she began feeling burning with urination. She developed lower abdominalpressure and back pain and eventually noticed her urine output decreased despite her not changing PO fluid intake. 3 days ago, she also developed chills with diaphoresis. She noticed her glucose levels became more difficult to control ranging as high as 500s (typically her BS are ~100-150). Her back pain increased and she presented to [facility] ER. On arrival, she was found to have hypotension with urinalysis suspicious for infection. She was started on 750mg Levofloaxicin and 2.5L IVF. Her hypotension continued, lowest systolic was 60. She wasadmitted to the ICU and stated on Levophed. [...] Also reports recent 100lb weight loss over thepast 6m-1y using weight watchers. HEENT: Denies recent [...] but does not recent skin break down onthe left side. Psych: History of depression and [...] S2 normal. Exam reveals no gallop and nofriction rub. No murmur heard. Pulses: Radial pulses are 2+ on the right side, and 2+ on the left side. Pulmonary/Chest: Effort normal. No accessory muscle usage. No respiratory distress. She has decreased breath sounds. She has no wheezes. On 2L NC Abdominal: Soft. Bowel sounds are normal. She exhibits distension. There is no tenderness. There isno rigidity, no rebound and no guarding. Musculoskeletal: [...] Latest Ref Range: Clear Cloudy (A) Spec [place] UA Latest Ref Range: 1.002 - 1.030 [...] infection, urine culture has shown gram negative rods with culture sensitivities still pending. Lactate level normal [...] vs. ATN. She may also have underlying kidney disease given her history of diabetes. - pre-renal: [...] is difficult for her to see. terminal manager skin redness is concerning for underlying fungal [...] home medications including methyphenidate, abilify, venlafaxine (home desvenlafaxine), and wellbutrin ?? IV access:PIV Tubes/Drains:[place] DVT PPX: Heparin Team Pager(MD Coverage 09/09): #[phone] PCP: VERNA Irving [phone] Kadie Torres 11/17/2018 * Initial Assessments - Candace Crain RN - 11/16/2018 6:05 PM EDT Office of Care Management Initial Assessment Candace Crain RN reviewed record and discussed patient with Care Team. Source of Information: the patient Introduced self/reviewed role; services accepted. Reason for Hospitalization: 11/16/2018 Received in transfer from [facility] for further management of acute renal failure No past medical history on file. Hospitalizations Within the Past 30 Days: no mention Anticipated Length Of Stay (If known): transition to hospital medicine today Current Decision-Making Capacity: able to make own healthcare decisions Advance Care Planning: Code Status: Full No AD on file in eD; If AD's have not been completed, the patient would want her sister Therese Scott be her surrogate decision maker per [place] surrogate decision making law. Any patient receiving care at [facility] must abide by [place] law. The hierarchy for surrogate decision making [...] (i) The agent with financial power of compliance attorney or a conservator appointed in accordance [...] [place] Social & Family Supports/Community Resources: family/friends/uses [facility] for oxygen needs Behavioral Health History: chart review mentions mood disorder Substance Use/Abuse: current everyday smoker (1 PPD) Occasional alcohol use/no abuse No mention of illicit drug use/abuse Other Pertinent/Service Specific Information: to be assessed Health/Prescription Coverage: Primary Insurance: MEDICARE Secondary Insurance: MEDICAID [place] Prescription Coverage: yes Preferred Pharmacy: [place], [place] Other: To be assessed Primary Care Provider: VERNA Irving [phone] Patient/Caregiver Goals of Treatment: to return home [...] airway disease dx) accepted in transfer from [facility] for further management of sepsis. She is progressing with the medical plan of care and will transition to Hospital Medicine. Althoughshkevin has supportive family/friends, she may benefit from [...] of care planning. Candace Crain RN Pager: [phone] * Consult Note - Tania Mcfarland RN - 11/16/2018 12:39 PM EDT Images from the original note were not included. Certified Wound Care Nurse Note Situation: Asked to see Rosibel Bowden by Cami Felix, PARMINDER for Left side of pannus with moist [...] moisture under the left pannus. Intertrigo best treatedwith silver foam for now to absorb moisture, [...] Please contact TANIA MCFARLAND RN on pager [phone] or the wound care team at [phone] or pager [phone] with skin and wound care concerns or questions. Electronically Signed By: TANIA MCFARLAND RN * Consult Note - Juan Zapata [facility] - 11/16/2018 9:54 AM EDT Clinical Pharmacist Note-Vanc Rosibel Bowden [id number] Rosibel Bowden is a 48 y.o. female is [...] have. Alternately, during off-hours you may call [phone] to contact a pharmacist. JUAN ZAPATA RPH * Plan of Care - Cami Felix RN [...] 0330. Received 2g Ceftriaxone IV. Urine cultures sent. Unable to get blood Cxs, Vascular access paged. [...] people -- Goal: Infection Control 11/16/18 0200 11/16/18 040 Safety Interventions Isolation Precautions -- standard precautions maintained Infection Prevention environmental surveillance performed;personal protective equipment utilized;rest/sleep promoted;single patient room provided;visitors restricted/screened -- Coping Strategies Supportive Measures active listening utilized;verbalization of feelings encouraged -- documented in this encounter Plan of Treatment Not on file documented as of this encounter Procedures Procedure Name Priority Date/Time Associated Diagnosis Comments HC VENIPUNCTURE STAT 11/19/2018 8:45 AM EDT POCT GLUCOSE Routine 11/19/2018 6:49 AM EDT SCAN, PERIPHERAL BLOOD Routine 9 5:13 AM EDT HEMOGRAM Routine 11/19/2018 5:13 AM EDT DIFFERENTIAL, AUTOMATED Routine 11/20/19 19 5:13 AM EDT HC CBC,PLT & AUTO DIFF Routine 9 5:13 AM EDT POCT GLUCOSE Routine 11/18/2018 9:39 PM EDT POCT GLUCOSE Routine 11/18/2018 4:26 PM EDT POCT GLUCOSE Routine 11/18/2018 11:10 AM EDT POCT GLUCOSE Routine 11/18/2018 6:37 AM EDT SCAN, PERIPHERAL BLOOD Routine 9 4:40 AM EDT HEMOGRAM Routine 11/18/2018 4:40 AM EDT DIFFERENTIAL, AUTOMATED Routine 11/19/19 19 4:40 AM EDT HC CBC,PLT & AUTO DIFF Routine 9 4:40 AM EDT BASIC METABOLIC PANEL Routine 11/18/2018 4:40 AM EDT POCT GLUCOSE Routine 11/17/2018 7:56 PM EDT POCT GLUCOSE Routine 11/17/2018 4:13 PM EDT POCT GLUCOSE Routine 11/17/2018 11:47 AM EDT POCT GLUCOSE Routine 11/17/2018 7:24 AM EDT POCT GLUCOSE Routine 11/17/2018 6:22 AM EDT HC VANCOMYCIN Timed 11/17/2018 6:20 AM EDT HEMOGRAM Routine 11/17/2018 1:25 AM EDT DIFFERENTIAL, AUTOMATED Routine 11/18/19 19 1:25 AM EDT HC CBC,PLT & AUTO DIFF Routine 9 1:25 AM EDT BASIC METABOLIC PANEL Routine 11/17/2018 1:25 AM EDT POCT GLUCOSE Routine 11/16/2018 8:13 PM EDT POCT GLUCOSE Routine 11/16/2018 4:30 PM EDT POCT GLUCOSE Routine 11/16/2018 11:37 AM EDT XR CHEST ONE VIEW Routine 11/16/2018 9:2 5 AM EDT POCT GLUCOSE Routine 11/16/2018 7:23 AM EDT HC BLOOD CULTURE- STAT 11/16/2018 6:3 0 AM EDT POCT GLUCOSE Routine 11/16/2018 3:50 AM EDT URINALYSIS MICROSCOPIC EXAM Routine 11/16/2018 3:31 AM EDT URINALYSIS WITH REFLEX CULTURE Routine 11/16/2018 3:31 AM EDT URINE CULTURE Routine 11/16/2018 3:31 AM EDT HC UREA NITROGEN, URINE 24 HR Routine 11/16/2018 2:44 AM EDT HC SODIUM, URINE Routine 11/16/2018 2:44 AM EDT HC CREATININE - NON BLOOD Routine 11/16/2018 2:44 AM EDT CMP W/FASTING GLUCOSE STAT 11/16/2018 2:30 AM EDT HEMOGRAM STAT 11/16/2018 2:30 AM EDT DIFFERENTIAL, AUTOMATED STAT 11/17/19 19 2:30 AM EDT HC L-LACTATE Routine 11/16/2018 2:30 AM EDT HC PARTIAL THROMBOPLASTIN TIME STAT 11/16/2018 2:30 AM EDT HC PROTHROMBIN TIME STAT 11/16/2018 2 :30 AM EDT HC CBC,PLT & AUTO DIFF STAT 9 2:30 AM EDT HC PHOSPHORUS, SERUM STAT 11/16/2018 2:30 AM EDT HC MAGNESIUM, SERUM STAT 11/16/2018 2 :30 AM EDT HEMOGLOBIN A1C Routine 11/16/2018 2:30 AM EDT POCT GLUCOSE Routine 11/16/2018 1:57 AM EDT documented in this encounter Results * (ABNORMAL) Basic Metabolic Panel (non-fasting) (11/19/2018 8:45 AM EDT) Glucose 168 65 - 199 mg/dL [facility] Comment:Diabetes: >=200 mg/d L plus symptoms Blood Urea Nitrogen 29(H) 8 - 18 mg/dL [facility] Creatinine 1.48(H) 0.70 - 1.20 mg/dL [facility] Sodium 139 135 - 145 mmol/L [facility] Potassium 3.5 3.5 - 5.0 mmol/L [facility] Comment: Please note: ??Patients with WBC >100,000 may have falsely elevated Potassium levels. ??For accurate Potassium quantification in these patients send serum separator tube (gold top) for subsequent determinations. ??Contact the Clinical Chemistry Laboratory if there are any questions. Chloride 100 98 - 107 mmol/L [facility] Carbon Dioxide 26 22 - 31 mmol/L [facility] Anion Gap 13 5 - 15 mmol/L [facility] Calcium 9.7 8.5 - 10.5 mg/dL [facility] Est Glomerular Filtration Rate 41(L) >=60 mL/min/1. 73 m?? [facility] Comment: The eGFR was calculated using the CKD-EPI equation. As with all creatinine based estimates of kidney function, eGFR values calculated with the CKD-EPI equation are not accurate in patients with acute kidney failure, extremes of body mass or the acutely ill. [email or web address]/[facility] eGFR 48(L) >=60 mL/min/1. 73 m?? [facility] Comment: The eGFR was calculated using the CKD-EPI equation. As with all creatinine based estimates of kidney function, eGFR values calculated with the CKD-EPI equation are not accurate in patients with acute kidney failure, extremes of body mass or the acutely ill. [email or web address] Blood specimen (specimen) 11/19/2018 8:45 AM EDT 11/19/2018 8:58 AM EDT Narrative Resulting Agency Comment Spec In Lab Hoda Casas MD CHEMISTRY ORDERABLES Performing Organization Address City/[facility]/ZIP Co de Phone Number [facility] [place] [address] * POCT Glucose (11/19/2018 6:49 AM EDT) [facility] Glucose, POC 133 65 - 199 mg/dL [facility] Comment: Supplemental ranges: <140 mg/dL before meals <180 mg/dL all other times of the day Blood specimen (specimen) 11/19/2018 6:49 AM EDT 11/19/2018 6:49 AM EDT Hoda Casas MD POINT OF CARE TEST O RDERABLES Performing Organization Address City/[facility]/ZIP Co de Phone Number [facility] [place] [address] * Scan, Peripheral Blood (11/19/2018 5:13 AM EDT) Pathologist [facility] Plat estimate Normal [facility] RBC Morphology Abnormal [facility] Macrocyte 1-5 /HPF [facility] Blood specimen (specimen) 11/19/2018 5:13 AM EDT 11/19/2018 5:54 AM EDT Narrative Resulting Agency Comment Spec In Lab Hoda Casas MD HEMATOLOGY ORDERABLE S [facility] [place] [address] * (ABNORMAL) Differential, Automated (11/19/2018 5:13 AM EDT) Neutrophil % 52.0 % [facility] Neutrophil Absolute 4.49 1.70 - 6.10 x10(3)/mc L [facility] Lymph % 25.6 % [facility] Lymphocytes Abs 2.2 0.9 - 3.2 x10(3)/mc L [facility] Monocyte % 9.4 % [facility] Monocyte Abs 0.8 0.3 - 0.9 x10(3)/mc L [facility] Eos % 0.0 % [facility] Eosinophils Abs 0.0 0.0 - 0.4 x10(3)/mc L [facility] Basophil % 0.2 % [facility] Baso Absolute 0.0 0.0 - 0.1 x10(3)/mc L [facility] Immature Gran % 12.80 % [facility] Comment: Immature granulocytes(IG's)percentage and absolute count will include metamyelocytes, myelocytes, and promyelocytes. Blood smears from CBCs yielding IG's will be scanned manually for concordance. If this scan disagrees with the automated IG or if promyelocytes are noted, a manual differential will be performed. Immature Gran Absolute 1.11(H) 0.00 - 0.04 x10(3)/mc L [facility] Blood specimen (specimen) 11/19/2018 5:13 AM EDT 11/19/2018 5:54 AM EDT Narrative Resulting Agency Comment Spec In Lab Hoda Casas MD HEMATOLOGY ORDERABLE S [facility] [place] [address] * (ABNORMAL) Hemogram (11/19/2018 5:13 AM EDT) White Blood Cell 8.6 4.0 - 9.5 x10(3)/ L [facility] Red Blood Cell 4.25 4.00 - 5.21 x10(6)/ L [facility] Hemoglobin 13.2 11.7 - 15.5 gm/dL [facility] Hematocrit 40.9 35.7 - 45.8 % [facility] Mean Cell Volume 96.2(H) 82.6 - 94.4 fL [facility] Mean Cell Hemoglobin 31.1 27.1 - 32.0 pg [facility] Mean Cell Hemoglobin Concentration 32.3 31.7 - 35.0 gm/dL [facility] Platelet 212 145 - 357 x10(3)/mc L [facility] RDW Standard Deviation 51.0(H) 37.0 - 46.0 [facility] RDW coefficient of variation 14.4(H) 11.5 - 14.1 % [facility] Mean Platelet Volume 10.2 7.6 - 12.9 [facility] NRBC% auto 0.0 % [facility] NRBC Absolute 0.000 0.000 - 0.000 x10(3)/[facility] Blood specimen (specimen) 11/19/2018 5:13 AM EDT 11/19/2018 5:54 AM EDT Narrative Resulting Agency Comment Spec In Lab Hoda Casas MD HEMATOLOGY ORDERABLE S [facility] [place] [address] * POCT Glucose (11/18/2018 9:39 PM EDT) Glucose, POC 133 65 - 199 mg/dL [facility] Comment: Supplemental ranges: <140 mg/dL before meals <180 mg/dL all other times of the day Blood specimen (specimen) 11/18/2018 9:39 PM EDT 11/18/2018 9:39 PM EDT Hoda Casas MD POINT OF CARE TEST O RDERACODY Performing Organization Address City/[facility]/ZIP Co de Phone Number [facility] [place] [address] * POCT Glucose (11/18/2018 4:26 PM EDT) Glucose, POC 149 65 - 199 mg/dL [facility] Comment: Supplemental ranges: <140 mg/dL before meals <180 mg/dL all other times of the day Blood specimen (specimen) 11/18/2018 4:26 PM EDT 11/18/2018 4:26 PM EDT Hoda Casas MD POINT OF CARE TEST O RDERACODY Performing Organization Address City/[facility]/ZIP Co de Phone Number [facility] [place] [address] * (ABNORMAL) POCT Glucose (11/18/2018 11:10 AM EDT) Glucose, POC 202(H) 65 - 199 mg/dL [facility] Comment: Supplemental ranges: <140 mg/dL before meals <180 mg/dL all other times of the day Blood specimen (specimen) 11/18/2018 11:10 AM EDT 11/18/2018 11:10 AM EDT Hoda Casas MD POINT OF CARE TEST O RDERACODY [facility] [place] [address] * POCT Glucose (11/18/2018 6:37 AM EDT) Pathologist [facility] Glucose, POC 140 65 - 199 mg/dL [facility] Comment: Supplemental ranges: <140 mg/dL before meals <180 mg/dL all other times of the day Blood specimen (specimen) 11/18/2018 6:37 AM EDT 11/18/2018 6:37 AM EDT Hoda Casas MD POINT OF CARE TEST O RDERABLES Performing Organization Address City/[facility]/ZIP Co de Phone Number [facility] [place] [address] * Scan, Peripheral Blood (11/18/2018 4:40 AM EDT) [facility] Plat estimate Normal [facility] RBC Morphology Abnormal [facility] Tear Cell gtr than 10 /HPF [facility] Michelle Cells 1-5 /HPF [facility] Dohle Bodies Present [facility] Blood specimen (specimen) 11/18/2018 4:40 AM EDT 11/18/2018 5:19 AM EDT Narrative Resulting Agency Comment Spec In Lab Hoda Casas MD HEMATOLOGY ORDERABLE S Performing Organization Address City/[facility]/ZIP Co de Phone Number [facility] [place] [address] * (ABNORMAL) Differential, Automated (11/18/2018 4:40 AM EDT) [facility] Neutrophil % 64.5 % [facility] Neutrophil Absolute 5.48 1.70 - 6.10 x10(3)/mc L [facility] Lymph % 16.9 % [facility] Lymphocytes Abs 1.4 0.9 - 3.2 x10(3)/mc L [facility] Monocyte % 12.1 % [facility] Monocyte Abs 1.0(H) 0.3 - 0.9 x10(3)/ L [facility] Eos % 0.1 % [facility] Eosinophils Abs 0.0 0.0 - 0.4 x10(3)/[facility] Basophil % 1.2 % [facility] Baso Absolute 0.1 0.0 - 0.1 x10(3)/[facility] Immature Gran % 5.20 % [facility] Comment: Immature granulocytes(IG's)percentage and absolute count will include metamyelocytes, myelocytes, and promyelocytes. Blood smears from CBCs yielding IG's will be scanned manually for concordance. If this scan disagrees with the automated IG or if promyelocytes are noted, a manual differential will be performed. Immature Gran Absolute 0.44(H) 0.00 - 0.04 x10(3)/[facility] Blood specimen (specimen) 11/18/2018 4:40 AM EDT 11/18/2018 5:19 AM EDT Narrative Resulting Agency Comment Spec In Lab Hoda Casas MD HEMATOLOGY ORDERABLE S [facility] [place] [address] * (ABNORMAL) Hemogram (11/18/2018 4:40 AM EDT) White Blood Cell 8.5 4.0 - 9.5 x10(3)/[facility] Red Blood Cell 4.12 4.00 - 5.21 x10(6)/[facility] Hemoglobin 12.8 11.7 - 15.5 gm/dL [facility] Hematocrit 40.3 35.7 - 45.8 % [facility] Mean Cell Volume 97.8(H) 82.6 - 94.4 fL [facility] [facility] Mean Cell Hemoglobin 31.1 27.1 - 32.0 pg [facility] Mean Cell Hemoglobin Concentration 31.8 31.7 - 35.0 gm/dL [facility] Platelet 158 145 - 357 x10(3)/mc L [facility] RDW Standard Deviation 51.9(H) 37.0 - 46.0 fL [facility] RDW coefficient of variation 14.4(H) 11.5 - 14.1 % [facility] Mean Platelet Volume 10.8 7.6 - 12.9 fL [facility] NRBC% auto 0.0 % [facility] NRBC Absolute 0.000 0.000 - 0.000 x10(3)/mc L [facility] Blood specimen (specimen) 11/18/2018 4:40 AM EDT 11/18/2018 5:19 AM EDT Narrative Resulting Agency Comment Spec In Lab Hoda Casas MD HEMATOLOGY ORDERABLE S Performing Organization Address City/State/[facility] Co de Phone Number [facility] [place] [address] * (ABNORMAL) Basic Metabolic Panel (non-fasting) (11/18/2018 4:40 AM EDT) Glucose 136 65 - 199 mg/dL [facility] Comment:Diabetes: >=200 mg/d L plus symptoms Blood Urea Nitrogen 41(H) 8 - 18 mg/dL [facility] Creatinine 1.94(H) 0.70 - 1.20 mg/dL [facility] Sodium 137 135 - 145 mmol/L [facility] Potassium 3.5 3.5 - 5.0 mmol/L [facility] Comment: Please note: ??Patients with WBC >100,000 may have falsely elevated Potassium levels. ??For accurate Potassium quantification in these patients send serum separator tube (gold top) for subsequent determinations. ??Contact the Clinical Chemistry Laboratory if there are any questions. Chloride 100 98 - 107 mmol/L [facility] Carbon Dioxide 24 22 - 31 mmol/L [facility] Anion Gap 13 5 - 15 mmol/L [facility] Calcium 9.1 8.5 - 10.5 mg/dL [facility] Comment:result rechecked-JSD Est Glomerular Filtration Rate 30(L) >=60 mL/min/1. 73 m?? [facility] Comment: The eGFR was calculated using the CKD-EPI equation. As with all creatinine based estimates of kidney function, eGFR values calculated with the CKD-EPI equation are not accurate in patients with acute kidney failure, extremes of body mass or the acutely ill. http://[employer]/[facility]kf eGFR 34(L) >=60 mL/min/1. 73 m?? [facility] Comment: The eGFR was calculated using the CKD-EPI equation. As with all creatinine based estimates of kidney function, eGFR values calculated with the CKD-EPI equation are not accurate in patients with acute kidney failure, extremes of body mass or the acutely ill. http://[employer]/[facility]kf Blood specimen (specimen) 11/18/2018 4:40 AM EDT 11/18/2018 5:19 AM EDT Narrative Resulting Agency Comment Spec In Lab Hoda Casas MD CHEMISTRY ORDERABLES Performing Organization Address City/[facility]/ZIP Co de Phone Number [facility] [place] [address] * POCT Glucose (11/17/2018 7:56 PM EDT) Glucose, POC 169 65 - 199 mg/dL [facility] Comment: Supplemental ranges: <140 mg/dL before meals <180 mg/dL all other times of the day Blood specimen (specimen) 11/17/2018 7:56 PM EDT 11/17/2018 7:56 PM EDT Hoda Casas MD POINT OF CARE TEST O RDERABLES Performing Organization Address City/[facility]/ZIP Co de Phone Number [facility] [place] [address] * POCT Glucose (11/17/2018 4:13 PM EDT) Glucose, POC 154 65 - 199 mg/dL [facility] Comment: Supplemental ranges: <140 mg/dL before meals <180 mg/dL all other times of the day Blood specimen (specimen) 11/17/2018 4:13 PM EDT 11/17/2018 4:13 PM EDT Hoda Casas MD POINT OF CARE TEST O RDERABLES [facility] [place] [address] * POCT Glucose (11/17/2018 11:47 AM EDT) Glucose, POC 167 65 - 199 mg/dL [facility] Comment: Supplemental ranges: <140 mg/dL before meals <180 mg/dL all other times of the day Blood specimen (specimen) 11/17/2018 11:47 AM EDT 11/17/2018 11:47 AM EDT Hoda Casas MD POINT OF CARE TEST O RDERABLES Performing Organization Address [facility]/ZIP Co de Phone Number [facility] [place] [address] * POCT Glucose (11/17/2018 7:24 AM EDT) Glucose, POC 166 65 - 199 mg/dL [facility] Comment: Supplemental ranges: <140 mg/dL before meals <180 mg/dL all other times of the day Blood specimen (specimen) 11/17/2018 7:24 AM EDT 11/17/2018 7:24 AM EDT Olvin Doran MD POINT OF CARE TEST ORDERABLES Performing Organization Address City/[facility]/ZIP Co de Phone Number [facility] [place] [address] * POCT Glucose (11/17/2018 6:22 AM EDT) Pathologist [facility] Glucose, POC 136 65 - 199 mg/dL [facility] Comment: Supplemental ranges: <140 mg/dL before meals <180 mg/dL all other times of the day Blood specimen (specimen) 11/17/2018 6:22 AM EDT 11/17/2018 6:22 AM EDT Olvin Doran MD POINT OF CARE TEST ORDERABLES Performing Organization Address [facility] de Phone Number [facility] [place] [address] * Vancomycin, trough (11/17/2018 6:20 AM EDT) [facility] Vancomycin, Trough 17.8 mg/L [facility] Comment: Therapeutic range for complicated infections such as bacteremia, endocarditis, osteomyelitis, meningitis, and hospital-acquired pneumonia caused by S. aureus: 15-20 mg/L Therapeutic range for other indications: 10-15 mg/L Toxic: >20 mg/L Reference: Vancomycin Therapeutic Monitoring: Review and Recommendations from the ASHP, IDSA and SIDP Task Force. ??Am J Health-Syst Pharm. 2009; 66:82-98 Blood specimen (specimen) 11/17/2018 6:20 AM EDT 11/17/2018 6:31 AM EDT Narrative Resulting Agency Comment Spec In Lab Hoda Casas MD CHEMISTRY ORDERABLES Performing Organization Address [facility] Co de Phone Number [facility] [place] [address] * (ABNORMAL) Differential, Automated (11/17/2018 1:25 AM EDT) Pathologist [facility] Neutrophil % 74.6 % [facility] Neutrophil Absolute 5.50 1.70 - 6.10 x10(3)/mc L [facility] Lymph % 12.7 % [facility] Lymphocytes Abs 0.9 0.9 - 3.2 x10(3)/mc L [facility] Monocyte % 10.4 % [facility] Monocyte Abs 0.8 0.3 - 0.9 x10(3)/[facility] Eos % 0.0 % [facility] Eosinophils Abs 0.0 0.0 - 0.4 x10(3)/[facility] Basophil % 0.5 % [facility] Baso Absolute 0.0 0.0 - 0.1 x10(3)/[facility] Immature Gran % 1.80 % [facility] Comment: Immature granulocytes(IG's)percentage and absolute count will include metamyelocytes, myelocytes, and promyelocytes. Blood smears from CBCs yielding IG's will be scanned manually for concordance. If this scan disagrees with the automated IG or if promyelocytes are noted, a manual differential will be performed. Immature Gran Absolute 0.13(H) 0.00 - 0.04 x10(3)/[facility] Blood specimen (specimen) 11/17/2018 1:25 AM EDT 11/17/2018 1:42 AM EDT Narrative Resulting Agency Comment Spec In Lab Kandis Tee MD HEMATOLOGY ORDERAB LES Performing Organization Address City/State/[facility] Co de Phone Number [facility] [place] [address] * (ABNORMAL) Hemogram (11/17/2018 1:25 AM EDT) White Blood Cell 7.4 4.0 - 9.5 x10(3)/ L [facility] Red Blood Cell 3.84(L) 4.00 - 5.21 x10(6)/[facility] Hemoglobin 12.2 11.7 - 15.5 gm/dL [facility] Hematocrit 36.9 35.7 - 45.8 % [facility] Mean Cell Volume 96.1(H) 82.6 - 94.4 fL [facility] Mean Cell Hemoglobin 31.8 27.1 - 32.0 pg [facility] Mean Cell Hemoglobin Concentration 33.1 31.7 - 35.0 gm/dL [facility] Platelet 125(L) 145 - 357 x10(3)/mc L [facility] RDW Standard Deviation 51.3(H) 37.0 - 46.0 fL [facility] RDW coefficient of variation 14.4(H) 11.5 - 14.1 % [facility] Mean Platelet Volume 11.2 7.6 - 12.9 fL [facility] NRBC% auto 0.0 % [facility] NRBC Absolute 0.000 0.000 - 0.000 x10(3)/mc L [facility] Blood specimen (specimen) 11/17/2018 1:25 AM EDT 11/17/2018 1:42 AM EDT Narrative Resulting Agency Comment Spec In Lab Kandis Tee MD HEMATOLOGY ORDERAB LES [facility] [place] [address] * (ABNORMAL) Basic Metabolic Panel (non-fasting) (11/17/2018 1:25 AM EDT) Glucose 140 65 - 199 mg/dL [facility] Comment:Diabetes: >=200 mg/d L plus symptoms Blood Urea Nitrogen 48(H) 8 - 18 mg/dL [facility] Creatinine 2.59(H) 0.70 - 1.20 mg/dL [facility] Comment:result rechecked-JSD Sodium 135 135 - 145 mmol/L [facility] Potassium 3.2(L) 3.5 - 5.0 mmol/L [facility] Comment: Please note: ??Patients with WBC >100,000 may have falsely elevated Potassium levels. ??For accurate Potassium quantification in these patients send serum separator tube (gold top) for subsequent determinations. ??Contact the Clinical Chemistry Laboratory if there are any questions. Chloride 101 98 - 107 mmol/L [facility] Carbon Dioxide 21(L) 22 - 31 mmol/L [facility] Anion Gap 13 5 - 15 mmol/L [facility] Calcium 7.7(L) 8.5 - 10.5 mg/dL [facility] Comment:result rechecked-JSD Est Glomerular Filtration Rate 21(L) >=60 mL/min/1. 73 m?? [facility] Comment: The eGFR was calculated using the CKD-EPI equation. As with all creatinine based estimates of kidney function, eGFR values calculated with the CKD-EPI equation are not accurate in patients with acute kidney failure, extremes of body mass or the acutely ill. http://[employer]/[facility] eGFR 24(L) >=60 mL/min/1. 73 m?? [facility] Comment: The eGFR was calculated using the CKD-EPI equation. As with all creatinine based estimates of kidney function, eGFR values calculated with the CKD-EPI equation are not accurate in patients with acute kidney failure, extremes of body mass or the acutely ill. http://[employer]/DHnkf Blood specimen (specimen) 11/17/2018 1:25 AM EDT 11/17/2018 1:42 AM EDT Narrative Resulting Agency Comment Spec In Lab Hoda Casas MD CHEMISTRY ORDERABLES Performing Organization Address City/State/[facility] Co de Phone Number [facility] [place] [address] * POCT Glucose (11/16/2018 8:13 PM EDT) Glucose, POC 191 65 - 199 mg/dL [facility] Comment: Supplemental ranges: <140 mg/dL before meals <180 mg/dL all other times of the day Blood specimen (specimen) 11/16/2018 8:13 PM EDT 11/16/2018 8:13 PM EDT Olvin Doarn MD POINT OF CARE TEST ORDERABLES Performing Organization Address [facility] Co de Phone Number [facility] [place] [address] * POCT Glucose (11/16/2018 4:30 PM EDT) Glucose, POC 137 65 - 199 mg/dL [facility] Comment: Supplemental ranges: <140 mg/dL before meals <180 mg/dL all other times of the day Blood specimen (specimen) 11/16/2018 4:30 PM EDT 11/16/2018 4:30 PM EDT Olvin Doran MD POINT OF CARE TEST ORDERABLES Performing Organization Address [facility] Co de Phone Number [facility] [place] [address] * POCT Glucose (11/16/2018 11:37 AM EDT) Glucose, POC 131 65 - 199 mg/dL [facility] Comment: Supplemental ranges: <140 mg/dL before meals <180 mg/dL all other times of the day Blood specimen (specimen) 11/16/2018 11:37 AM EDT 11/16/2018 11:37 AM EDT Mylene Oakley MD POINT OF C ARE TEST ORDERABLES Performing Organization Address [facility] Co de Phone Number [facility] [place] [address] * XR Chest One View (11/16/2018 9:25 AM EDT) Anatomical Region Laterality Modality Chest N/A Digital Radiogra phy Impressions 11/16/2018 11:12 AM EDT Low lung volumes with bibasilar atelectasis and trace pleural effusions. No evidence of pneumonia. I have personally reviewed the image(s) and the residents interpretation and agree with the findings, Ray Mejia at 11/16/2018 11:12 AM Thank you for letting us participate in the care of this patient. For questions regarding this report, please contact the number below. ? Electronically signed by: ZEENAT Seymour [facility] ([phone]), at 11/16/2018 11:12 AM Narrative 11/16/2018 11:12 AM EDT EXAMINATION: XR CHEST ONE VIEW CLINICAL HISTORY: assess for CAP in new septic pt TECHNIQUE: AP view of the chest COMPARISON: Chest radiograph 11/15/2018 FINDINGS: Low lung volumes with bilateral atelectasis. Lungs otherwise clear. Trace bilateral pleural effusions. No pneumothorax. Cardiomediastinal silhouette is unchanged. Procedure Note Ray Mejia MD - 11/16/2018 EXAMINATION: XR CHEST ONE VIEW CLINICAL HISTORY: assess for CAP in new septic pt TECHNIQUE: AP view of the chest COMPARISON: Chest radiograph 11/15/2018 FINDINGS: Low lung volumes with bilateral atelectasis. Lungs otherwise clear.Trace bilateral pleural effusions. No pneumothorax. Cardiomediastinal silhouetteis unchanged. IMPRESSION Low lung volumes with bibasilar atelectasis and trace pleural effusions. No evidence of pneumonia. I have personally reviewed the image(s) and the residents interpretationand agree with the findings, Ray Meija at 11/16/2018 11:12 AM Thank you for letting us participate in the care of this patient. Forquestions regarding this report, please contact the number below. Electronically signed by: ZEENAT Seymour [facility]([phone]), at 11/16/2018 11:12 AM Mylene Oakley MD IMG DX ORD ERABLES * POCT Glucose (11/16/2018 7:23 AM EDT) [facility] Signature Glucose, POC 132 65 - 199 mg/dL [facility] Comment: Supplemental ranges: <140 mg/dL before meals <180 mg/dL all other times of the day Blood specimen (specimen) 11/16/2018 7:23 AM EDT 11/16/2018 7:23 AM EDT Mylene Oakley MD POINT OF C ARE TEST ORDERABLES Performing Organization Address City/[facility]/ZIP Co de Phone Number [facility] [place] [address] * Blood culture (11/16/2018 6:30 AM EDT) Blood Culture No growth at 5 days. [facility] Blood specimen (specimen) STRUCTURE OF LEFT HAND / Unknown 11/16/2018 6:30 AM EDT 11/16/2018 7:29 AM EDT Narrative Resulting Agency Comment Spec In Lab Mylene Oakley MD MICROBIOLO GY - BLOOD ORDERABLES Performing Organization Address [facility]/ZIP Co de Phone Number [facility] [place] [address] * (ABNORMAL) POCT Glucose (11/16/2018 3:50 AM EDT) Glucose, POC 209(H) 65 - 199 mg/dL [facility] Comment: Supplemental ranges: <140 mg/dL before meals <180 mg/dL all other times of the day Blood specimen (specimen) 11/16/2018 3:50 AM EDT 11/16/2018 3:50 AM EDT Mylene Oakley MD POINT OF C ARE TEST ORDERABLES Performing Organization Address City/[facility]/ZIP Co de Phone Number [facility] [place] [address] * (ABNORMAL) Urine culture (11/16/2018 3:31 AM EDT) Urine Culture 1,000-9,000 cfu/ml Gram Negative Rods(A) [facility] Organism Gram Negative Rods(A) [facility] Urine specimen obtained via indwelling urinary catheter (specimen) 11/16/2018 3:31 AM EDT 11/16/2018 5:16 AM EDT Narrative Resulting Agency Comment Spec In Lab Osvaldo Beebe MD MICROBIOLOGY - GENER AL ORDERABLES Performing Organization Address [facility] de Phone Number [facility] [place] [address] * (ABNORMAL) Urinalysis Microscopic Exam (11/16/2018 3:31 AM EDT) RBC, Urine >182(H) 0 - 4 /HPF [facility] WBC, Urine >182(H) 0 - 5 /HPF [facility] WBC Clumps, Urine Many(A) None /HPF [facility] Bacteria, Urine Moderate(A ) None /HPF [facility] Squamous Epithelial Cells Raw Data, Urine 5(H) <=4 /HPF [facility] Urine specimen obtained via indwelling urinary catheter (specimen) 11/16/2018 3:31 AM EDT 11/16/2018 3:58 AM EDT Narrative Resulting Agency Comment Spec In Lab Osvaldo Beebe MD URINE ORDERABLES Performing Organization Address [facility] de Phone Number [facility] [place] [address] * (ABNORMAL) Urinalysis with reflex Culture (11/16/2018 3:31 AM EDT) Glucose, Urine Dipstick Negative Negative mg/dL [facility] Protein, Urine Dipstick >=500(A) Negative mg/dL [facility] Bilirubin, Urine Dipstick Negative Negative mg/dL [facility] Comment: Clinical correlation required for positive Urine Bilirubin results as false positive may occur with some drugs and drug related products. If a false positive is suspected a serum total bilirubin should be considered if clinically indicated. Urobilinogen, Urine Dipstick 2.0(A) Normal mg/dL [facility] pH, Urn (dipstick) 5.0 5.0 - 8.0 [facility] Blood, Urine Dipstick Large(A) Negative mg/dL [facility] Ketone, Urine Dipstick Negative Negative mg/dL [facility] Nitrite, Urine Dipstick Negative Negative [facility] Leukocytes, Urine Dipstick Moderate(A) Negative mcL [facility] Appearance, Urine Dipstick Cloudy(A) Clear [facility] Specific [place] Urine Automated 1.017 1.002 - 1.030 [facility] Color, Urine Dipstick Maritza Yellow [facility] Reflex to Culture Yes [facility] Urine specimen obtained via indwelling urinary catheter (specimen) 11/16/2018 3:31 AM EDT 11/16/2018 3:55 AM EDT Narrative Resulting Agency Comment Spec In Lab Mylene Oakley MD URINE FADI QUINONEZ Performing Organization Address City/[facility]/ZIP Co de Phone Number [facility] [place] [address] * Urea nitrogen, urine, random (11/16/2018 2:44 AM EDT) Urea Nitrogen, Urine 108 mg/dL [facility] Urine specimen (specimen) 11/16/2018 2:44 AM EDT 11/16/2018 3:13 AM EDT Narrative Resulting Agency Comment Spec In Lab Mylene Oakley MD URINE ORDKevin QUINONEZ Performing Organization Address City/[facility]/ZIP Co de Phone Number [facility] [place] [address] * Creatinine, urine, random (11/16/2018 2:44 AM EDT) Creatinine, Urine 120 mg/dL [facility] Urine specimen (specimen) 11/16/2018 2:44 AM EDT 11/16/2018 3:13 AM EDT Narrative Resulting Agency Comment Spec In Lab Mylene Oakley MD URINE FADI QUINONEZ Performing Organization Address [facility] de Phone Number [facility] [place] [address] * Electrolytes, urine, random (11/16/2018 2:44 AM EDT) Sodium, Urine 65 mmol/L [facility] Potassium, Urine 33 mmol/L [facility] Chloride, Urine 33 mmol/L [facility] Urine specimen (specimen) 11/16/2018 2:44 AM EDT 11/16/2018 3:13 AM EDT Narrative Resulting Agency Comment Spec In Lab Mylene Oakley MD URINE ORDKevin QUINONEZ Performing Organization Address [facility] de Phone Number [facility] [place] [address] * (ABNORMAL) Hemoglobin A1c (11/16/2018 2:30 AM EDT) Hemoglobin A1c 6.8(H) 4.3 - 5.6 % [facility] Comment: Reference Range: 4.3 [...] Mellitus, Diabetes Care 2013; 36: Suppl. 1, S07-05 Estimated Average Glucose 149 mg/dL [facility] Comment: [...] into estimated average glucose values. ??Diabetes Care 2008:31(8):4594-8251. Blood specimen (specimen) Venous Draw / Unknown 11/16/2018 2:30 AM EDT 11/16/2018 12:33 PM EDT Narrative Resulting Agency Comment Spec In Lab Kandis Tee MD CHEMISTRY ORDERABL ES [facility] [place] [address] * (ABNORMAL) Differential, Automated (11/16/2018 2:30 AM EDT) Neutrophil % 78.2 % [facility] Neutrophil Absolute 8.57(H) 1.70 - 6.10 x10(3)/mc L [facility] Lymph % 10.4 % [facility] Lymphocytes Abs 1.1 0.9 - 3.2 x10(3)/mc L [facility] Monocyte % 9.0 % [facility] Monocyte Abs 1.0(H) 0.3 - 0.9 x10(3)/mc L [facility] Eos % 0.0 % [facility] Eosinophils Abs 0.0 0.0 - 0.4 x10(3)/[facility] Basophil % 0.5 % [facility] Baso Absolute 0.0 0.0 - 0.1 x10(3)/[facility] Immature Gran % 1.90 % [facility] Comment: Immature granulocytes(IG's)percentage and absolute count will include metamyelocytes, myelocytes, and promyelocytes. Blood smears from CBCs yielding IG's will be scanned manually for concordance. If this scan disagrees with the automated IG or if promyelocytes are noted, a manual differential will be performed. Immature Gran Absolute 0.21(H) 0.00 - 0.04 x10(3)/[facility] Blood specimen (specimen) 11/16/2018 2:30 AM EDT 11/16/2018 2:35 AM EDT Narrative Resulting Agency Comment Spec In Lab Osvaldo Beebe MD HEMATOLOGY ORDERABLE S [facility] [place] [address] * (ABNORMAL) Hemogram (11/16/2018 2:30 AM EDT) White Blood Cell 11.0(H) 4.0 - 9.5 x10(3)/[facility] Red Blood Cell 4.32 4.00 - 5.21 x10(6)/[facility] Hemoglobin 13.5 11.7 - 15.5 gm/dL [facility] Hematocrit 41.5 35.7 - 45.8 % [facility] Mean Cell Volume 96.1(H) 82.6 - 94.4 fL [facility] Mean Cell Hemoglobin 31.3 27.1 - 32.0 pg [facility] Mean Cell Hemoglobin Concentration 32.5 31.7 - 35.0 gm/dL [facility] Platelet 173 145 - 357 x10(3)/mc L [facility] RDW Standard Deviation 51.8(H) 37.0 - 46.0 fL [facility] RDW coefficient of variation 14.5(H) 11.5 - 14.1 % [facility] Mean Platelet Volume 11.4 7.6 - 12.9 fL [facility] NRBC% auto 0.0 % [facility] NRBC Absolute 0.000 0.000 - 0.000 x10(3)/mc L [facility] Blood specimen (specimen) 11/16/2018 2:30 AM EDT 11/16/2018 2:35 AM EDT Narrative Resulting Agency Comment Spec In Lab Osvaldo Beebe MD HEMATOLOGY ORDERABLE S Performing Organization Address [facility] [facility] Co de Phone Number [facility] [place] [address] * Lactate, whole blood, send to lab ([facility]) (11/16/2018 2:30 AM EDT) Lactate WB 1.7 0.5 - 2.2 mmol/L [facility] Blood specimen (specimen) 11/16/2018 2:30 AM EDT 11/16/2018 2:35 AM EDT Narrative Resulting Agency Comment Spec In Lab Mylene Oakley MD CHEMISTRY ORDERABLES Performing Organization Address [facility] Co de Phone Number [facility] [place] [address] * (ABNORMAL) CMP w/fasting Glucose (11/16/2018 2:30 AM EDT) Glucose Fasting 227(H) 65 - 99 mg/dL [facility] Comment: ?Fasting* Glucose Interpretive Criteria Normal ?65-99 mg/dL Impaired Fasting glucose ?100-125 mg/dL Consistent with Diabetes Mellitus ? >or= 126 mg/dL *Fasting is defined as no caloric intake for at least 8 hours In the absence of unequivocal hyperglycemia a plasma glucose value of >or= 126 mg/dL should be repeated on a subsequent day. Diagnosis and Classification of Diabetes Mellitus, Position Statement from the [place]. ??Diabetes Care, Volume 33, Supplement 1, Feb 2009 Blood Urea Nitrogen 57(H) 8 - 18 mg/dL [facility] Creatinine 3.79(H) 0.70 - 1.20 mg/dL [facility] Sodium 134(L) 135 - 145 mmol/L [facility] Potassium 3.8 3.5 - 5.0 mmol/L [facility] Comment: Please note: ??Patients with WBC >100,000 may have falsely elevated Potassium levels. ??For accurate Potassium quantification in these patients send serum separator tube (gold top) for subsequent determinations. ??Contact the Clinical Chemistry Laboratory if there are any questions. Chloride 95(L) 98 - 107 mmol/L [facility] Carbon Dioxide 23 22 - 31 mmol/L [facility] Anion Gap 16(H) 5 - 15 mmol/L [facility] Calcium 8.9 8.5 - 10.5 mg/dL [facility] Protein, Total 7.0 6.1 - 8.0 gm/dL [facility] Albumin 3.2 3.2 - 5.2 gm/dL [facility] Aspartate Aminotransferase 48(H) 0 - 30 unit/L [facility] Alanine Aminotransferase 24 0 - 30 unit/L [facility] Alkaline Phosphatase 105 35 - 105 unit/L [facility] Bilirubin, Total 0.6 0.2 - 1.3 mg/dL [facility] Est Glomerular Filtration Rate 13(L) >=60 mL/min/1. 73 m?? [facility] Comment: The eGFR was calculated using the CKD-EPI equation. As with all creatinine based estimates of kidney function, eGFR values calculated with the CKD-EPI equation are not accurate in patients with acute kidney failure, extremes of body mass or the acutely ill. http://[employer] eGFR 15(L) >=60 mL/min/1. 73 m?? [facility] Comment: The eGFR was calculated using the CKD-EPI equation. As with all creatinine based estimates of kidney function, eGFR values calculated with the CKD-EPI equation are not accurate in patients with acute kidney failure, extremes of body mass or the acutely ill. http://[email or web address] Blood specimen (specimen) 11/16/2018 2:30 AM EDT 11/16/2018 2:35 AM EDT Narrative Resulting Agency Comment Spec In Lab Mylene Oakley MD CHEMISTRY ORDERABLES Performing Organization Address City/[facility]/ZIP Co de Phone Number [facility] [place] [address] * Magnesium (11/16/2018 2:30 AM EDT) Magnesium 0.73 0.69 - 1.07 mmol/L [facility] Blood specimen (specimen) 11/16/2018 2:30 AM EDT 11/16/2018 2:35 AM EDT Narrative Resulting Agency Comment Spec In Lab Mylene Oakley MD CHEMISTRY ORDERABLES Performing Organization Address City/[facility]/ZIP Co de Phone Number [facility] [place] [address] * Phosphorus (11/16/2018 2:30 AM EDT) Phosphorus 2.7 2.5 - 4.5 mg/dL [facility] Blood specimen (specimen) 11/16/2018 2:30 AM EDT 11/16/2018 2:35 AM EDT Narrative Resulting Agency Comment Spec In Lab Mylene Oakley MD CHEMISTRY ORDERABLES Performing Organization Address [facility] Co de Phone Number [facility] [place] [address] * APTT (11/16/2018 2:30 AM EDT) Partial Thromboplastin Time 29 25 - 37 sec [facility] Comment: The PTT is NOT appropriate for heparin monitoring. Use the Anti-Xa level for heparin monitoring (HEP UFH) or LMWH monitoring (HEP LMW). A PTT less than 37 seconds generally indicates adequate hemostasis. Blood specimen (specimen) 11/16/2018 2:30 AM EDT 11/16/2018 2:35 AM EDT Narrative Resulting Agency Comment Spec In Lab Mylene Oakley MD HEMATOLOGY ORDERABLES Performing Organization Address [facility] de Phone Number [facility] [place] [address] * (ABNORMAL) Prothrombin Time (11/16/2018 2:30 AM EDT) Prothrombin Time 13.4(H) 9.4 - 12.5 sec [facility] International Normalization Ratio 1.2 [facility] Comment: An INR <2.0 indicates adequate procoagulant activity for hemostasis in most patients without underlying bleeding disorders, though the INR may not adequately reflect hemostatic capacity in patients with liver disease and synthetic impairment. The recommended target INR range for therapeutic anticoagulation is 2.0 ? 3.0 for most applications, though lower and higher ranges may be appropriate depending on clinical circumstances. Blood specimen (specimen) 11/16/2018 2:30 AM EDT 11/16/2018 2:35 AM EDT Narrative Resulting Agency Comment Spec In Lab Mylene Oakley MD HEMATOLOGY ORDERABLES Performing Organization Address [facility] Co de Phone Number [facility] [place] [address] * (ABNORMAL) POCT Glucose (11/16/2018 1:57 AM EDT) Glucose, POC 214(H) 65 - 199 mg/dL [facility] Comment: Supplemental ranges: <140 mg/dL before meals <180 mg/dL all other times of the day Blood specimen (specimen) 11/16/2018 1:57 AM EDT 11/16/2018 1:57 AM EDT Mylene Oakley MD POINT OF C ARE TEST ORDERABLES [facility] [place] [address] documented in this encounter Visit Diagnoses Diagnosis Acute kidney injury Acute kidney failure, unspecified Septic shock Morbid obesity HELEN (obstructive sleep apnea) Obstructive sleep apnea (adult) (pediatric) Acute kidney injury Acute kidney failure, unspecified Septic shock Morbid obesity Type 2 diabetes mellitus Type II or unspecified type diabetes mellitus without mention of complication, not stated as uncontrolled HELEN (obstructive sleep apnea) Obstructive sleep apnea (adult) (pediatric) documented in this encounter Admitting Diagnoses Diagnosis Acute renal failure Acute kidney failure, unspecified documented in this encounter Administered Medications Inactive Administered Medications - up to 3 most recent administrations Medication Order MAR Action Action Date Dose Rate Site acetaminophen (TYLENOL) tablet 1,000 mg 1,000 mg, Oral, EVERY 6 HOURS PRN, Starting on Fri11/18/18 at 0651, Until Alicia 11/19/18 at 1320, Pain, Fever, Headaches, Maximum dose of acetaminophen is 4000 mg from all sources in 24 hours., Routine Given 11/18/2018 9:51 PM EDT 1,000 mg ARIPiprazole (ABILIFY) tablet 10 mg 10 mg, Oral, DAILY, First dose on Fri11/16/18 at 0900, Until Discontinued, Routine Given 11/19/2018 9:19 AM EDT 10 mg Given 11/18/2018 8:52 AM EDT 10 mg Given 11/17/2018 9:15 AM EDT 10 mg buPROPion (WELLBUTRIN XL) XL tablet 300 mg 300 mg, Oral, DAILY, First dose on Fri11/16/18 at 0900, Until Discontinued, DO NOT CRUSH OR OPEN, Routine Given 11/19/2018 9:19 AM EDT 300 mg Given 11/18/2018 8:53 AM EDT 300 mg Given 11/17/2018 9:15 AM EDT 300 mg cefTRIAXone (ROCEPHIN) 2 g vial attach to sodium chloride 0.9% 50 mL Mini-Bag Plus 2 g, Intravenous, EVERY 24 HOURS, First dose on 11/16/18 at 0245, Until Discontinued, Administer over 30 Minutes, Indication for (Active or Suspected): Bacteremia/Sepsis New Bag 11/18/2018 3:43 AM EDT 2 g 1 00 mL/hr New Bag 11/17/2018 2:53 AM EDT 2 g 100 mL/hr New Bag 11/16/2018 4:11 AM EDT 2 g 100 mL/hr cephALEXin (KEFLEX) capsule 500 mg 500 mg, Oral, 4 TIMES DAILY, First dose on Alicia 11/19/18 at 0015, Until Discontinued, Routine, Indication for (Active or Suspected): Bacteremia/Sepsis Given 11/19/2018 9:18 AM EDT 500 mg Given 11/19/2018 12:31 AM EDT 500 mg dextrose 50% intravenous solution 25-50 mL 25-50 mL (12.5-25 g), Intravenous, EVERY 1 HOUR PRN, Starting on 11/16/18 at 1234, Until Alicia 11/19/18 [...] insulin., Routine doxycycline monohydrate (MONODOX) capsule 100 mg 100 mg, Oral, 2 TIMES DAILY, First dose on Fri11/18/18 at 1230, Until Discontinued, Routine, Indication for (Active or Suspected): Skin/Skin Structure Given 11/19/2018 9:19 AM EDT 100 mg Given 11/18/2018 9:51 PM EDT 100 mg Given 11/18/2018 12:30 PM EDT 100 mg famotidine (PEPCID) tablet 20 mg 20 mg, Oral, DAILY, First dose (after last modification) on Fri11/17/18 at 0930, Until Discontinued, Routine Given 11/19/2018 9:18 AM EDT 20 mg Given 11/18/2018 8:53 AM EDT 20 mg Given 11/17/2018 9:15 AM EDT 20 mg fluticasone propionate (FLOVENT) 220 mcg/actuation inhaler 2 puff 2 puff, Inhalation, 2 TIMES DAILY, First dose on Fri11/16/18 at 0900, Until Discontinued, Shake well; Rinse mouth after administration., Routine Given 11/19/2018 9:21 AM EDT 2 puffs Given 11/18/2018 9:53 PM EDT 2 puffs Given 11/18/2018 8:53 AM EDT 2 puffs glucagon (human recombinant) injection SolR 1 mg 1 mg, Intramuscular, EVERY 1 HOUR PRN, Starting on Fri11/16/18 at 1234, Until Alicia 11/19/18 [...] Buccal, EVERY 30 MIN PRN, Starting on Fri11/16/18 at 1234, Until Alicia 11/19/18 [...] 37.5 grams., Routine heparin (Porcine) subcutaneous injection 5,000 Units 5,000 Units, Subcutaneous, EVERY 8 HOURS SCHEDULED, First dose on Fri11/16/18 at 0600, Until Discontinued, Routine Given 11/19/2018 7:01 AM EDT 5,000 Unit s Given 11/18/2018 9:52 PM EDT 5,000 Units Given 11/18/2018 2:30 PM EDT 5,000 Units insulin lispro (HumaLOG) VIAL injection 1-10 Units 1-10 Units, Subcutaneous, 3 TIMES DAILY WITH MEALS, First dose on Fri11/18/18 at 1200, Until Discontinued, MEAL ASSOCIATED Give 1 unit for every 15 grams carbohydrate. Hold if not eating, Routine Given 11/18/2018 5:20 PM EDT 1 Units Given 11/18/2018 12:34 PM EDT 2 Units insulin lispro (HumaLOG) VIAL injection 2-8 Units 2-8 Units, Subcutaneous, 4 TIMES DAILY [...] told to do so., Routine Given 11/18/2018 4:34 PM EDT 2 Units Given 11/18/2018 11:38 AM EDT 6 Units Given 11/17/2018 8:33 PM EDT 4 Units insulin lispro (HumaLOG) VIAL injection 3-12 Units 3-12 Units, Subcutaneous, EVERY 4 HOURS [...] specifically told to do so., Routine Given 11/16/2018 4:07 AM EDT 9 Units ipratropium-albuterol (DUONEB) 0.5 mg-3 mg(2.5 mg base)/3 mL nebulizer solution 3 mL 3 mL, Nebulization, EVERY 4 HOURS PRN, Starting on Fri11/16/18 at 0248, Until Alicia 11/19/18 at 1320, Wheezing, Routine Given 11/18/2018 10:23 PM EDT 3 mLs lactated Ringers 2,000 mL IV bolus at 1,000 mL/hr, Intravenous, ONCE, 1 dose, On Fri11/16/18 at 0245 New Bag 11/16/2018 2:24 AM EDT 1000 mL/hr lactobacillus with pectin 1 capsule 1 capsule, Oral, DAILY, First dose on Alicia 11/19/18 at 0900, Until Discontinued, Routine Given 11/19/2018 10:03 AM EDT 1 capsule magnesium sulfate 2 g in sterile water 50 mL 2 g, Intravenous, ONCE, 1 dose, On Fri11/16/18 at 0330, Administer over 120 Minutes New Bag 11/16/2018 3:27 AM EDT 2 g 25 mL/hr methylphenidate HCl (RITALIN) tablet 10 mg 10 mg, Oral, EVERY MORNING, First dose on Fri11/16/18 at 0600, Until Discontinued, Routine Given 11/19/2018 7:02 AM EDT 10 mg Given 11/18/2018 6:51 AM EDT 10 mg Given 11/17/2018 5:36 AM EDT 10 mg methylphenidate HCl (RITALIN) tablet 20 mg 20 mg, Oral, 2 TIMES DAILY, First dose on Fri11/16/18 at 0600, Until Discontinued, Routine Given 11/19/2018 7:02 AM EDT 20 mg Given 11/18/2018 12:29 PM EDT 20 mg Given 11/18/2018 6:52 AM EDT 20 mg miconazole (MICOTIN) 2 % powder Topical (Top), 2 TIMES DAILY, First dose on Fri11/16/18 at 0900, Until Discontinued Given 11/19/2018 9:23 AM EDT Given 11/18/2018 9:53 PM EDT Given 11/18/2018 8:53 AM EDT NORepinephrine (LEVOPHED) 4 mg/250 mL (16 mcg/mL) infusion 1 dose, Starting on Fri11/16/18 at 0143, Until Fri11/16/18 at 0223, Risa Damon: cabinet override NORepinephrine 16 mcg/mL (standard ADULT and Pedi greater than 20 kg) infusion 0-100 mcg/min (0-375 mL/hr), Intravenous, CONTINUOUS, Starting on Fri11/16/18 at 0245, Until Fri11/16/18 at 1305, Titrate to keep MAP greater than 65 mmHg. Start at 2 mcg/min and increase by 2 mcg/min every 3 minutes until goal reached. Do not exceed 200 mcg/min., Routine Rate/Dose Change 11/16/2018 3:12 AM EDT 4 mcg/min 15 mL/hr Rate/Dose Change 11/16/2018 3:01 AM EDT 8 mcg/min 30 mL/h r Rate/Dose Change 11/16/2018 2:42 AM EDT 10 mcg/min 37.5 mL /hr nystatin (Mycostatin) (100,000 units/mL) oral liquid 500,000 Units 500,000 Units, Oral, 4 TIMES DAILY, 28 doses, First dose on Fri11/16/18 at 1300, Last dose on Fri11/23/18 at 0900, Routine Given 11/19/2018 9:18 AM EDT 500,000 Units Given 11/18/2018 9:52 PM EDT 500,000 Units Given 11/18/2018 5:20 PM EDT 500,000 Units pantoprazole (PROTONIX) tablet 40 mg 40 mg, Oral, DAILY, First dose on Fri11/16/18 at 0900, Until Discontinued, DO NOT CRUSH OR OPEN, Routine Given 11/16/2018 8:29 AM EDT 40 mg potassium chloride (K-DUR/KLOR-CON) extended release tablet 40 mEq 40 mEq, Oral, ONCE, 1 dose, On Fri11/17/18 at 0315, 20 mEq tablet may be dissolved in water for administration, Routine Given 11/17/2018 3:22 AM EDT 40 mEq sodium chloride 0.9 % (flush) flush 5 mL 5 mL, Intravenous, 2 TIMES DAILY, First dose on Fri11/16/18 at 0245, Until Discontinued, Routine Given 11/19/2018 9:22 AM EDT 5 mLs Given 11/18/2018 9:54 PM EDT 5 mLs Given 11/18/2018 9:00 AM EDT 5 mLs vancomycin (VANCOCIN) 3,000 mg in sodium chloride 0.9% 560 mL 3,000 mg (3 g), Intravenous, at 186.7 mL/hr, ONCE, 1 dose, On Fri11/16/18 at 1015, Maximum infusion rate is 1 gram/hour. If flushing of the face, neck, upper body, arms, and/or back occurs decrease infusion rate by 50% to reduce the severity of symptoms. This medication may have an associated drug lab level. Please see MAR for scheduled level. Warning Vesicant/Irritant Medication , STAT, Indication for (Active or Suspected): Skin/Skin Structure New Bag 11/16/2018 10:38 AM EDT 3,000 mg 186.7 mL/hr vancomycin 2 g in sodium chloride 0.9% 500 mL 2 g, Intravenous, at 250 mL/hr, ONCE, 1 dose, On Fri11/17/18 at 1200, Maximum infusion rate is 1 gram/hour. If flushing of the face, neck, upper body, arms, and/or back occurs decrease infusion rate by 50% to reduce the severity of symptoms. This medication may have an associated drug lab level. Please see MAR for scheduled level. Warning Vesicant/Irritant Medication , Routine, Indication for (Active or Suspected): Skin/Skin Structure New Bag 11/17/2018 12:09 PM EDT 2 g 250 mL/hr venlafaxine (EFFEXOR-XR) XR Capsule 150 mg 150 mg, Oral, DAILY WITH BREAKFAST, First dose on Fri11/16/18 at 0800, Until Discontinued, DO NOT CRUSH OR OPEN, Routine Given 11/19/2018 9:18 AM EDT 150 mg Given 11/18/2018 8:52 AM EDT 150 mg Given 11/17/2018 7:32 AM EDT 150 mg documented in this encounter Active and Recently Administered Medications Times are shown in EDT. Scheduled Medication Order 11/17/2018 11/18/2018 11/19/2018 ARIPiprazole (ABILIFY) tablet 10 mg 10 mg, Oral, DAILY, First dose on Fri11/16/18 at 0900, Until Discontinued, Routine 0915 (Given - Provider: Doe Arnold RN) 0852 (Given - Provider: Dionte Rice RN) 0919 (Given - Provider: Sigifredo Terry RN) buPROPion (WELLBUTRIN XL) XL tablet 300 mg 300 mg, Oral, DAILY, First dose on Fri11/16/18 at 0900, Until Discontinued, DO NOT CRUSH OR OPEN, Routine 0915 (Given - Provider: Doe Arnold RN) 0853 (Given - Provider: Dionte Rice RN) 0919 (Given - Provider: Sigifredo Terry, PARMINDER) cefTRIAXone (ROCEPHIN) 2 g vial attach to sodium chloride 0.9% 50 mL Mini-Bag Plus (CANCELED) 2 g, Intravenous, EVERY 24 HOURS, First dose on Fri11/16/18 at 0245, Until Discontinued, Administer over 30 Minutes, Indication for (Active or Suspected): Bacteremia/Sepsis 0253 (New Bag - Provider: Cammie Gallego RN)0323 (Stopped - Provider: Cammie Gallego RN) 0343 (New Bag - Provider: Emilee Abreu, PARMINDER)0413 (Stopped - Provider: Emilee Abreu RN) cephALEXin (KEFLEX) capsule 500 mg 500 mg, Oral, 4 TIMES DAILY, First dose on Fri11/19/18 at 0015, Until Discontinued, Routine, Indication for (Active or Suspected): Bacteremia/Sepsis 0031 (Given - Provider: Jen Joel RN)0918 (Given - Provider: Sigifredo Terry RN) doxycycline monohydrate (MONODOX) capsule 100 mg 100 mg, Oral, 2 TIMES DAILY, First dose on Fri11/18/18 at 1230, Until Discontinued, Routine, Indication for (Active or Suspected): Skin/Skin Structure 1230 (Given - Provider: Dionte Rice RN)2151 (Given - Provider: Jen Joel RN) 0919 (Given - Provider: Sigifredo Terry, PARMINDER) famotidine (PEPCID) tablet 20 mg 20 mg, Oral, DAILY, First dose (after last modification) on Fri11/17/18 at 0930, Until Discontinued, Routine 0915 (Given - Provider: Doe Arnold RN) 0853 (Given - Provider: Dionte Rice RN) 0918 (Given - Provider: Sigifredo Terry RN) fluticasone propionate (FLOVENT) 220 mcg/actuation inhaler 2 puff 2 puff, Inhalation, 2 TIMES DAILY, First dose on Fri11/16/18 at 0900, Until Discontinued, Shake well; Rinse mouth after administration., Routine 0801 (Given - Provider: Gopi Felipe RCP)2034 (Given - Provider: Yesi Armendariz RN) 0853 (Given - Provider: Dionte Rice RN)2153 (Given - Provider: Jen Joel RN) 0921 (Given - Provider: Sigifredo Terry, PARMINDER) heparin (Porcine) subcutaneous injection 5,000 Units 5,000 Units, Subcutaneous, EVERY 8 HOURS SCHEDULED, First dose on Fri11/16/18 at 0600, Until Discontinued, Routine 0538 (Given - Provider: Cammie Gallego RN)1332 (Given - Provider: Doe Arnold RN)2200 (Given - Provider: Yesi Armendariz RN) 0652 (Given - Provider: Emilee Abreu RN)1430 (Given - Provider: Dionte Rice RN)2152 (Given - Provider: Jen Joel, PARMINDER) 0701 (Given - Provider: Jen Joel, PARMINDER) insulin lispro (HumaLOG) VIAL injection 1-10 Units 1-10 Units, Subcutaneous, 3 TIMES DAILY WITH MEALS, First dose on Fri11/18/18 at 1200, Until Discontinued, MEAL ASSOCIATED Give 1 unit for every 15 grams carbohydrate. Hold if not eating, Routine 1234 (Given - Provider: Dionte Rice RN)1720 (Given - Provider: Dionte Rice RN) 0800 (Not Given - Provider: Sigifredo Terry RN - Reason: Order parameters not met - Comment: carbs 9) insulin lispro (HumaLOG) VIAL injection 2-8 Units(Linked Group 1) 2-8 Units, Subcutaneous, 4 TIMES DAILY BEFORE [...] unless specifically told to do so., Routine 0730 (Not Given - Provider: Cammie Gallego RN - Reason: Order parameters not met)1154 (Given - Provider: Doe Arnold RN)1614 (Given - Provider: Doe Arnold RN)2033 (Given - Provider: Yesi Armendariz RN - Comment: POC glucose 169) 0730 (Not Given - Provider: Emilee Abreu RN - Reason: Patient/family refused)1138 (Given - Provider: Dionte Rice RN)1634 (Given - Provider: Dionte Rice RN)2100 (Not Given - Provider: Jen Joel RN - Reason: Order parameters not met - Comment: BG 133) 0730 (Not Given - Provider: Jen Joel RN - Reason: Order parameters not met - Comment: BG 133) lactobacillus with pectin 1 capsule 1 capsule, Oral, DAILY, First dose on Alicia 11/19/18 at 0900, Until Discontinued, Routine 1003 (Given - Provider: Sigifredo Terry RN) methylphenidate HCl (RITALIN) tablet 10 mg 10 mg, Oral, EVERY MORNING, First dose on Fri11/16/18 at 0600, Until Discontinued, Routine 0536 (Given - Provider: Cammie Gallego RN) 0651 (Given - Provider: Emilee Abreu RN) 0702 (Given - Provider: Jen Joel RN) methylphenidate HCl (RITALIN) tablet 20 mg 20 mg, Oral, 2 TIMES DAILY, First dose on Fri11/16/18 at 0600, Until Discontinued, Routine 0537 (Given - Provider: Cammie Gallego RN)1350 (Given - Provider: Doe Arnold RN) 0652 (Given - Provider: Emilee Abreu RN)1229 (Given - Provider: Dionte Rice RN) 0702 (Given - Provider: Jen Joel RN) miconazole (MICOTIN) 2 % powder Topical (Top), 2 TIMES DAILY, First dose on Fri11/16/18 at 0900, Until Discontinued 09 (Given - Provider: Doe Arnold RN)2032 (Given - Provider: Yesi Armendariz RN) 0853 (Given - Provider: Dionte Rice RN)215 (Given - Provider: Jen Joel RN) 0923 (Given - Provider: Sigifredo Terry, PARMINDER) nystatin (Mycostatin) (100,000 units/mL) oral liquid 500,000 Units 500,000 Units, Oral, 4 TIMES DAILY, 28 doses, First dose on Fri11/16/18 at 1300, Last dose on Fri11/23/18 at 0900, Routine 0915 (Given - Provider: Doe Arnold RN)1332 (Given - Provider: Doe Arnold RN)1750 (Given - Provider: Doe Arnold RN)2033 (Given - Provider: Yesi Armendariz RN) 0852 (Given - Provider: Dionte Rice RN)1230 (Given - Provider: Dionte Rice RN)1720 (Given - Provider: Dionte Rice RN)215 (Given - Provider: Jen Joel RN) 0918 (Given - Provider: Sigifredo Terry RN) potassium chloride (K-DUR/KLOR-CON) extended release tablet 40 mEq (COMPLETED) 40 mEq, Oral, ONCE, 1 dose, On Fri11/17/18 at 0315, 20 mEq tablet may be dissolved in water for administration, Routine 0322 (Given - Provider: Cammie Gallego RN) sodium chloride 0.9 % (flush) flush 5 mL 5 mL, Intravenous, 2 TIMES DAILY, First dose on Fri11/16/18 at 0245, Until Discontinued, Routine 0900 (Given - Provider: Doe Arnold RN)2034 (Given - Provider: Yesi Armendariz RN) 09 (Given - Provider: Dionte Rice RN)215 (Given - Provider: Jen Joel RN) 0922 (Given - Provider: Sigifredo Terry RN) vancomycin 2 g in sodium chloride 0.9% 500 mL (COMPLETED) 2 g, Intravenous, at 250 mL/hr, ONCE, 1 dose, On Fri11/17/18 at 1200, Maximum infusion rate is 1 gram/hour. If flushing of the face, neck, upper body, arms, and/or back occurs decrease infusion rate by 50% to reduce the severity of symptoms. This medication may have an associated drug lab level. Please see MAR for scheduled level. Warning Vesicant/Irritant Medication , Routine, Indication for (Active or Suspected): Skin/Skin Structure 1209 (New Bag - Provider: Doe Arnold, RN)1409 (Stopped - Provider: Doe Arnold, RN) venlafaxine (EFFEXOR-XR) XR Capsule 150 mg 150 mg, Oral, DAILY WITH BREAKFAST, First dose on Fri11/16/18 at 0800, Until Discontinued, DO NOT CRUSH OR OPEN, Routine 0732 (Given - Provider: Doe Arnold, PARMINDER) 0852 (Given - Provider: Dionte Rice RN) 0918 (Given - Provider: Sgiifredo Terry RN) PRN Medication Order 11/17/2018 11/18/2018 11/19/2018 acetaminophen (TYLENOL) tablet 1,000 mg 1,000 mg, Oral, EVERY 6 HOURS PRN, Starting on Fri11/18/18 at 0651, Until Fri11/19/18 at 1320, Pain, Fever, Headaches, Maximum dose of acetaminophen is 4000 mg from all sources in 24 hours., Routine 2249 (Given - Provider: Jen Joel RN) dextrose 50% intravenous solution 25-50 mL(Linked Group 2) 25-50 mL (12.5-25 g), Intravenous, EVERY 1 HOUR PRN, Starting on Fri11/16/18 at 1234, Until Alicia 11/19/18 [...] 1 mg, Intramuscular, EVERY 1 HOUR PRN, Starting on Fri11/16/18 at 1234, Until Alicia 11/19/18 [...] Buccal, EVERY 30 MIN PRN, Starting on Fri11/16/18 at 1234, Until Alicia 11/19/18 [...] PRN, Starting on Fri11/16/18 at 0248, Until Alicia 11/19/18 at 1320, Wheezing, Routine 2223 (Given - Provider: Jen Joel RN) lidocaine (XYLOCAINE) 10 mg/mL (1 %) injection 3 mg 3 mg (0.3 mL), Subcutaneous, ONCE PRN, 1 dose, Starting on Fri11/16/18 at 0221, Until Alicia 11/19/18 at 1320, for discomfort with PIV insertion, Routine sodium chloride 0.9 % (flush) flush 5-20 mL 5-20 mL, Intravenous, EVERY 1 MIN PRN, Starting on Fri11/16/18 at 0221, Until Alicia 11/19/18 at 1320, flush, Flush pertains to all indwelling lines. Flush per protocol found in the job aid using the link provided on this medication record., Routine Linked Groups Order Group 1: POCT Fingerstick Glucose (CANCELED) Routine, 4 TIMES DAILY BEFORE MEALS & AT BEDTIME, First occurrence on Fri11/16/18 at 1700, Until Specified, Consider choosing FOUR TIMES A DAY BEFORE MEALS AND AT BEDTIME as frequency for: Patients who have a good hypoglycemia awareness: -Patients who are eating meals during the day and sleeping at night -Patient who are otherwise stable And insulin lispro (HumaLOG) VIAL injection 2-8 UnitsJump to med 2-8 Units, Subcutaneous, 4 TIMES DAILY BEFORE [...] unless specifically told to do so., Routine Group 2: glucose (GLUTOSE) 40% oral gelJump to med 15-30 g, Buccal, EVERY 30 MIN PRN, Starting on Fri11/16/18 at 1234, Until Alicia 11/19/18 [...] a central line. For persistent hypoglycemia, consider longer- acting treatment for the duration of the active insulin. 1 tube contains 15 grams of glucose (net weight of tube = 37.5 grams., Routine Or dextrose 50% intravenous solution 25-50 mLJump to med 25-50 mL (12.5-25 g), Intravenous, EVERY 1 HOUR PRN, Starting on Fri11/16/18 at 1234, Until Alicia 11/19/18 [...] the duration of the active insulin., Routine Or glucagon (human recombinant) injection SolR 1 mgJump to med 1 mg, Intramuscular, EVERY 1 HOUR PRN, Starting on Fri11/16/18 at 1234, Until Alicia 11/19/18 [...] the duration of the active insulin., Routine documented in this encounter Care Teams Retail Sales Director Relationship Specialty Start Date End Date Maria Del Carmen Nogueira [place] [address] [place] [address] PCP - General 01/27/14 10/05/19 documented as of this encounter
--- OUTSIDE RECORDS SUMMARY | 2023-11-10 17:36 | XMS_ITS | Encounter Summary ---
Author Organization [facility] Address [address] [place] [address] Care Team Providers Care Director Of Materials Management Name Role Phone Unavailable Primary Care Provider Unavailabl e Encounter Details Date Type Department Care Team (Late st Contact Info) Description 12/03/2011 Results Only [facility] - [facility] [place] [address] [place], [place] [id number] Ghassan Prado, DO [address] [facility] [address] [place], [place] [id number] Social History Tobacco Use Types Packs/Day Years Used Date Smoking Tobacco: Never Assessed Sex and Gender Information Value Date Recorded Sex Assigned at Not on file Gender Identity Not on file Sexual Orientation Not on file documented as of this encounter Plan of Treatment Not on file documented as of this encounter Procedures Procedure Name Priority Date/Time Associated Diagnosis Comments SURGICAL PATHOLOGY Routine 12/03/2011 0:00 EDT documented in this encounter Results * SURGICAL PATHOLOGY (12/03/2011 0:00 EDT) Pathology Report: SURGICAL PATHOLOGY REPORT Reports generated via electronic interface contain original data; however they are lacking the format of the original report. Caution should be taken when reading/interpreti ng unformatted reports. Name: ? ROSIBEL BOWDEN ? Accession #: ? [id number] ? : ? 1970 (Age: 41) ??F ? Collect Date: ? 12/03/2011 ? Location: ? [facility] ? Receive Date: ? 12/04/2011 ? Provider: GHASSAN PRADO DO Copy to: GILLIAN CHAVEZ MD ? Final Pathologic Diagnosis: A. ?Stomach, antrum, biopsy: 1. ?Antral-oxyntic mucosa with mild reactive changes. 2. ? No characteristic features of active gastritis, goblet cells, intestinal metaplasia, Helicobacter pylori-like microorganisms, erosion/ulcer, or dysplasia. B. ?Esophagus, distal, biopsy: 1. ?Mildly reactive squamous mucosa. 2. ? No characteristic features of active esophagitis, intraepithelial eosinophils or neutrophils, goblet cells, intestinal metaplasia, erosion/ulcer, or dysplasia. Document reviewed and electronically signed by: Grabiel Rosenbaum MD Report ??Date: 12/05/2011 14:27 By the signature above, the attending physician certifies that he/she has personally conducted a gross and/or microscopic examination of the described specimens and rendered or confirmed the above diagnosis. Specimen(s) Received: A. ?Gastric antrum B. ? Distal esophagus Clinical History: ? Hematemesis, grossly normal EGD Gross Description: ? Received in formalin labelled Fabrizio, Rosibel and gastric antrum are two light morales biopsies measuring 0.4 x 0.3 x 0.2 cm and 0.6 x 0.3 x 0.1 cm. ??The specimens are submitted intact as (A). Received in formalin labelled Fabrizio, Rosibel and distal esophagus are two light morales biopsies measuring 0.2 x 0.2 x 0.1 cm and 0.4 x 0.3 x 0.1 cm. ??The specimens are submitted intact as (B). ??(Denice Melvin)/[facility] End of Report [facility] 12/03/2011 12/04/2011 8:3 0 EDT Ghassan Prado DO PATHOLOGY ORDER HOLLY [facility] [address] [place] [address] documented in this encounter Visit Diagnoses Not on filedocumented in this encounter
--- OUTSIDE RECORDS SUMMARY | 2023-11-10 17:36 | XMS_ITS | Encounter Summary ---
Author Organization [facility] Address [facility] [place] [address] Care Team Providers Care Observer Gravity Prospecting Name Role Phone Maria Del Carmen Nogueira Primary Care Provider +1- [phone] Encounter Details Date Type Department Care Team (Late st Contact Info) Description 11/21/2018 [place] [address] Lance Lea MD [facility] [address] Social History Tobacco Use Types Packs/Day Years [...] on filedocumented in this encounter Care Teams Observer Gravity Prospecting Relationship Specialty Start Date End Date Maria Del Carmen Nogueira PA [address] [place] [address] PCP - General 01/27/14 10/05/19 documented as of this encounter
--- OUTSIDE RECORDS SUMMARY | 2023-11-10 17:36 | XMS_ITS | Clinical Summary ---
Author Organization [facility] Address [address] [place] [address] Care Team Providers Care Media Aid Name Role Phone Maria Del Carmen Nogueira PA-C Primary Care Provider + Social History Tobacco Use Types Packs/Day Years Used Date Smoking Tobacco: Never Assessed Interpersonal Safety Answer Date Record ed Physically Hurt Never 11/14/2019 Verbally Threaten Not on file 11/14/2019 Sex and Gender Information Value Date Recorded Sex Assigned at Not on file Gender Identity Not on file Sexual Orientation Not on file Plan of Treatment Health Maintenance Due Date Last Done Comments Hepatitis C Screen 1970 Hepatitis B Vaccine (1 of 3 - 19+ 3-dose series) 06/24 COVID-19 Vaccine ( season) 2022 Care Teams Media Aid Relationship Specialty Start Date End Date Maria Del Carmen Nogueira PA-C PCP - General 03/23/14
--- OUTSIDE RECORDS SUMMARY | 2023-11-10 17:36 | XMS_ITS | Encounter Summary ---
Author Organization [facility] Address [address] [place] [address] Care Team Providers Care Recorder Helper Seismograph Name Role Phone Unavailable Primary Care Provider Unavailabl e Encounter Details Date Type Department Care Team (Late st Contact Info) Description 05/25/2004 Results Only [facility] [address] [place] [address] Ghassan Prado, DO [address] [facility] [address] [place], [place] [id number] Social History Tobacco Use Types Packs/Day Years Used Date Smoking Tobacco: Never Assessed Sex and Gender Information Value Date Recorded Sex Assigned at Not on file Gender Identity Not on file Sexual Orientation Not on file documented as of this encounter Plan of Treatment Not on file documented as of this encounter Procedures Procedure Name Priority Date/Time Associated Diagnosis Comments SURGICAL PATHOLOGY Routine 05/25/2004 0:00 EDT documented in this encounter Results * SURGICAL PATHOLOGY (05/25/2004 0:00 EDT) Pathology Report: SURGICAL PATHOLOGY REPORT Reports generated via electronic interface contain original data; however they are lacking the format of the original report. Caution should be taken when reading/interpreti ng unformatted reports. Name: ? ROSIBEL BOWDEN ? Accession #: ? [id number] ? : ? 1970 (Age: 33) ??F ? Collect Date: ? 05/25/2004 ? Location: ? [facility] ? Receive Date: ? 05/25/2004 ? Provider: GHASSAN PRADO DO Copy to: JAYCEE CRONIN PAINTER HELPER ? Final Pathologic Diagnosis: ? Rectum, biopsy: - Hyperplastic polyp. Document reviewed and electronically signed by: MARINA DILL MD Report ??Date: 05/29/2004 17:09 By the signature above, the attending physician certifies that he/she has personally conducted a gross and/or microscopic examination of the described specimens and rendered or confirmed the above diagnosis. Specimen(s) Received: ? Rectal polyp Clinical History: ? Hematochezia; polyps Gross Description: ? Received in Hollande's fixative labelled Fabrizio and rectal polyp is a single soft tissue fragment that measures 0.3 x 0.2 x 0.2 cm. ??The specimen is entirely submitted in one cassette. ??(Dr. Akhtar)/[facility] End of Report [facility] 05/25/2004 05/25/2004 15: 00 EDT Ghassan Prado DO PATHOLOGY ORDER HOLLY [facility] [address] [place] [address] documented in this encounter Visit Diagnoses Not on filedocumented in this encounter
--- OUTSIDE RECORDS SUMMARY | 2023-11-10 17:36 | XMS_ITS | Encounter Summary ---
Author Organization [facility] Address [address] [place] [address] Care Team Providers Care Benzene Washer Operator Name Role Phone Unavailable Primary Care Provider Unavailabl e Encounter Details Date Type Department Care Team (Late st Contact Info) Description 10/25/2003 Results Only [facility] - [facility] conversion [address] [place] [address] Jaycee Goodman FNP [address] [place], [place] [id number] Social History Tobacco Use Types Packs/Day Years Used Date Smoking Tobacco: Never Assessed Sex and Gender Information Value Date Recorded Sex Assigned at Not on file Gender Identity Not on file Sexual Orientation Not on file documented as of this encounter Plan of Treatment Not on file documented as of this encounter Procedures Procedure Name Priority Date/Time Associated Diagnosis Comments CYTOPATHOLOGY Routine 10/25/2003 0:00 EDT documented in this encounter Results * CYTOPATHOLOGY (10/25/2003 0:00 EDT) Pathology Report: CYTOPATHOLOGY REPORT Reports generated via electronic interface contain original data; however they are lacking the format of the original report. Caution should be taken when reading/interpreti ng unformatted reports. Name: ? ROSIBEL BOWDEN ? Accession #: ? [id number] : ? 1970 (Age: 33) ??F ?Collect Date: ? 10/25/2003 Location: ? [facility] ? Receive Date: ? 10/27/2003 Provider: ?JAYCEE MIRELESP Copy to: ? Specimen/Source: ?ThinPrep Pap Test, Cervix/Endocervix Last Menstrual Period: ? 10/04/03 Previous Gynecologic Pathology: ? Yes Treatment History: ? Cone biopsy Cryotherapy: of cervix Other: ? HPVA - HPV testing requested if ASC-US on the current ThinPrep Pap test. ? SPECIMEN ADEQUACY ? Satisfactory for Evaluation - transformation zone component present GENERAL CATEGORIZATION ? Negative for Intraepithelial Lesion or Malignancy ? Document reviewed and electronically signed by: ? MALGORZATA Velarde(ASCP) ? Report Date: ??11/01/2003 08:48 End of Report [facility] 10/25/2003 10/27/2003 Jaycee MIRELESP PATHOLOGY ORDERABLES [facility] [address] [place] [address] documented in this encounter Visit Diagnoses Not on filedocumented in this encounter
--- OUTSIDE RECORDS SUMMARY | 2023-11-10 17:36 | XMS_ITS | Encounter Summary ---
Author Organization [facility] Address [facility] [place] [address] Care Team Providers Care Sales Merchandiser Name Role Phone Maria Del Carmen Nogueira Primary Care Provider +1- [phone] Encounter Details Date Type Department Care Team (Latest Contact Info) Description 09/15/2017 8:19 AM EDT - 09/15/2017 11:59 PM EDT Hospital Encounter XRay at [address] [place] [address] Tristan Gusman MD [facility] [place] [address] Bilateral chronic knee pain Discharge Disposition: Home Social History Tobacco Use Types Packs/Day Years [...] Start Date End Date ARIPiprazole (ABILIFY) 10 mg Tablet TAKE ONE TABLET BY MOUTH EVERY DAY 3 04/09/2017 fenofibrate (TRIGLIDE) 160 mg Tablet TAKE ONE TABLET BY MOUTH EVERY DAY 3 04/09/2017 methylphenidate HCl (RITALIN) 20 mg Tablet TAKE ONE TABLET BY MOUTH TWICE A DAY 0 04/12/2017 pantoprazole (PROTONIX) 40 mg Tablet, Delayed Release (E.C.) TAKE ONE TABLET BY MOUTH EVERY DAY 12 04/12/2017 chlorthalidone (HYGROTEN) 25 mg Tablet Take 12.5 mg by mouth daily. 3 04/05/2017 11/19/2018 diclofenac (CATAFLAM) 50 mg Tablet TAKE ONE TABLET BY MOUTH TWICE A DAY 5 04/10/2017 11/19/2018 gabapentin (NEURONTIN) 800 mg Tablet TAKE ONE TABLET BY MOUTH TWICE A DAY 3 04/05/2017 11/19/2018 LANTUS SOLOSTAR U-100 INSULIN pen INJECT 38 UNITS TWO TIMES A DAY 4 07/12/2017 11/19/2018 lisinopril (PRINIVIL;ZESTRIL) 20 mg Tablet 10 mg. 3 04/02/2017 11/19/2018 metFORMIN (GLUCOPHAGE-XR) 500 mg Tablet Sustained Release 24 hr TAKE TWO TABLETS BY MOUTH TWICE A DAY 3 04/08/2017 11/19/2018 methylphenidate HCl (RITALIN) 10 mg Tablet TAKE ONE TABLET BY MOUTH DAILY IN COMBINATION WITH 20MG TWICE DAILY 0 04/12/2017 11/19/2018 oxyCODONE-acetaminophe n (PERCOCET) 10-325 mg Tablet TAKE ONE TABLET BY MOUTH FOUR TIMES A DAY NEEDED FOR PAIN 0 04/12/2017 11/19/2018 documented as of this encounter Plan of Treatment Not on file documented as of this encounter Procedures Procedure Name Priority Date/Time Associated Diagnosis Comments XR KNEE STANDING ALIGNMENT AP LAT [place] SKYLINE BILAT Routine 09/15/2017 8:40 AM EDT Bilateral chronic knee pain documented in this encounter Results * XR Knee Standing Alignment AP Lat [place] Bilat (09/15/2017 8:40 AM EDT) Anatomical Region Laterality Modality Bilateral Digital Radiogra phy Impressions 09/15/2017 9:07 AM EDT Medial deviation of the bilateral lower extremity weightbearing axes by approximately 3.5 cm each, with severe nuyail-ulzyfvfrnsh-qhncrthbanx OA of both knees. Narrative 09/15/2017 9:07 AM EDT EXAMINATION: XR KNEE STANDING ALIGNMENT AP LAT [place] SKYLINE BILAT CLINICAL HISTORY: Bilateral knee pain TECHNIQUE: Separate images of the pelvis, knees and feet were acquired in the AP projection with the patient standing. These images were stitched together to form a composite image of the pelvis and legs allowing for evaluation of lower extremity alignment in the weight bearing position. Additionally, frontal, Munoz view, lateral, and sunrise view radiographs of bilateral knees were obtained. COMPARISON: None FINDINGS: There is severe joint space narrowing of the bilateral knee medial compartments. The lateral and patellofemoral compartment joint spaces are preserved. Large tricompartmental marginal osteophytes are seen at both knees. A 0.9 cm intra-articular body projects over the posterior recesses of the left knee. There is a trace left knee joint effusion. There is no significant right suprapatellar knee joint effusion. There is medial deviation of the bilateral lower extremity weightbearing axes by approximately 3.5 cm each. Incidentally noted projecting over the left pelvis material, possibly related to prior hernia repair. Procedure Note Nesha Lopez MD - 09/15/2017 EXAMINATION: XR KNEE STANDING ALIGNMENT AP [facility] CLINICAL HISTORY: Bilateral knee pain TECHNIQUE: Separate images of the pelvis, knees and feet were acquired inthe AP projection with the patient standing. These images were stitched togetherto form a composite image of the pelvis and legs allowing for evaluation oflower extremity alignment in the weight bearing position. Additionally,frontal, Munoz view, lateral, and sunrise view radiographs of bilateral kneeswere obtained. COMPARISON: None FINDINGS: There is severe joint space narrowing of the bilateral knee medialcompartments. The lateral and patellofemoral compartment joint spaces are preserved.Large tricompartmental marginal osteophytes are seen at both knees. A 0.9 cm intra-articular body projects over the posterior recesses of the leftknee. There is a trace left knee joint effusion. There is no significant right suprapatellar knee joint effusion. There is medial deviation of the bilateral lower extremity weightbearingaxes by approximately 3.5 cm each. Incidentally noted projecting over the left pelvis material, possiblyrelated to prior hernia repair. IMPRESSION Medial deviation of the bilateral lower extremity weightbearing axes by approximately 3.5 cm each, with severe wvknlf-hlthzzymbbt-xveubrjiqos OAof both knees. Tristan Gusman MD IMG DX ORDERABLES documented in this encounter Visit Diagnoses Diagnosis Bilateral chronic knee pain Pain in joint, lower leg documented in this encounter Care Teams Sales Merchandiser Relationship Specialty Start Date End Date Maria Del Carmen Nogueiar PA [address] [place] [address] PCP - General 01/27/14 10/05/19 documented as of this encounter
--- OUTSIDE RECORDS SUMMARY | 2023-11-10 17:36 | XMS_ITS | Encounter Summary ---
Author Organization [facility] Address [address] [place] [address] Care Team Providers Care Semiautomatic Taper Operator Name Role Phone Maria Del Carmen Nogueira PA-C Primary Care Provider + Encounter Details Date Type Department Care Team (Late st Contact Info) Description 04/04/2023 Lab Requisition [facility] Pathology & Laboratory Medicine - [facility] [address] [place] [address] Randall Gunter MD [address] [place] [address], [address] [place] [address] Encounter for other general examination Social History Tobacco Use Types Packs/Day Years [...] Priority Date/Time Associated Diagnosis Comments SURGICAL PATHOLOGY Today 04/04/2023 15 :31 EST Encounter for other general examination documented in this encounter Results * SURGICAL PATHOLOGY (04/04/2023 15:31 EST) Note to Patient The following pathology results have been interpreted by your pathologist and may be available to you before your health provider has had the opportunity to review them. Please allow time for your provider to receive these results and explore management options, if applicable. 04/08/2023 11:38 [facility] Final Diagnosis A. BREAST, RIGHT, CORE BIOPSY: - Acute and chronic mastitis. See Comment. 04/08/2023 11:38 [facility] Diagnosis Comment Food Service slides of this case were reviewed at the intradepartmental consultation conference. The findings are of an aggregate of mixed inflammatory cells composed predominantly of plasma cells, neutrophils, and eosinophils. Immunohistochemical stains for Keratin AE1-AE3 (AE1-AE3, [employer]) are negative for carcinoma. The differential diagnosis includes granulomatous lobular mastitis, plasma cell mastitis, or partial sampling of duct ectasia. The findings are otherwise non-specific for etiology. Clinical correlation is needed. 04/08/2023 11:38 [facility] Attestation By the signature below, the attending physician certifies that they have 1) personally conducted a gross and/or microscopic examination of the described specimen(s), and/or personally interpreted the results of laboratory testing of the described specimen(s), and 2) personally rendered or confirmed the above diagnosis. 04/08/2023 11:38 [facility] at 1138 Clinical History Breast mass 04/08/2023 11:38 [facility] Gross Description A. Received in formalin labelled with proper patient identification (initials S, L) and right breast are 4 yellow and white fibrofatty tissue cores (0.4 cm to 1.2 cm in length, and each 0.2 cm in diameter). Entirely submitted in A1-A2. Time removed from patient: 15:31 hours 04/04/2023 Time placed in formalin: 15:31 hours 04/04/2023 Time out of formalin: 00:30 hours 04/07/2023 Roro Carter 04/05/2023 11:40 04/08/2023 11:38 [facility] Performing Lab [facility] 04/08/2023 11:38 [facility] Scanned Images 04/08/2023 11:38 [facility] Tissue BREAST STRUCTURE / Unknown 04/04/2023 15:31 EST 04/04/2023 22:46 EST Randall Gunter MD PATHOLOGY ORDERABLES [facility] [address] [place] [address] documented in this encounter Visit Diagnoses Diagnosis Encounter for other general examination documented in this encounter Care Teams Semiautomatic Taper Operator Relationship Specialty Start Date End Date Maria Del Carmen Nogueira PA-C PCP - General 03/23/14 documented as of this encounter
--- OUTSIDE RECORDS SUMMARY | 2023-11-10 17:36 | XMS_ITS | Encounter Summary ---
Author Organization [facility] [place] [address] Care Team Providers Care Print Cutter Name Role Phone Maria Del Carmen Nogueira Primary Care Provider +1- [phone] Encounter Details Date Type Department Care Team (Late st Contact Info) Description 11/15/2018 12:05 AM EDT Ancillary Procedure Radiology Library at [facility] [place] [address] Maria Del Carmen Nogueira PA [address] [place] [address] Social History Tobacco Use Types Packs/Day Years [...] Procedure Name Priority Date/Time Associated Diagnosis Comments FILM LIBRARY STORAGE ONLY CT ABDOMEN AND PELVIS Routine 11/15/2018 12:05 AM EDT documented in this encounter Results * Film Library- Storage Only CT Abdomen & Pelvis (11/15/2018 12:05 AM EDT) Narrative [facility] - 11/16/2018 1:10 AM EDT This exam is auto-finalizing. It's purpose is for storage only. Maria Del Carmen GILLESPIE IMG FILM LIBRARY O RDERABLES [place], [place] documented in this encounter Visit Diagnoses Not on filedocumented in this encounter Care Teams Print Cutter Relationship Specialty Start Date End Date Maria Del Carmen Nogueira PA [address] [place] [address] PCP - General 01/27/14 10/05/19 documented as of this encounter
--- OUTSIDE RECORDS SUMMARY | 2023-11-10 17:36 | XMS_ITS | Encounter Summary ---
Author Organization [facility] Address [address] [place] [address] Care Team Providers Care Reporting Specialist Name Role Phone Maria Del Carmen Nogueira PA-C Primary Care Provider + Encounter Details Date Type Department Care Team (Latest Contact Info) Description 12/14/2015 16:06 EDT - 12/14/2015 23:59 EDT Hospital Encounter [address] [address] Unknown, Provider, Discharge Disposition: Home or Self Care Social History Tobacco Use Types Packs/Day Years Used Date Smoking Tobacco: Never Assessed Sex and Gender Information Value Date Recorded Sex Assigned at Not on file Gender Identity Not on file Sexual Orientation Not on file documented as of this encounter Discharge Diagnoses Diagnosis Z01.89 Encounter for other specified special examinations-Z01.89[ICD-10-CM] documented in this encounter Discharge Disposition Disposition Code Departure Means Destination Home or Self Penitentiary documented in this encounter Plan of Treatment Not on file documented as of this encounter Visit Diagnoses Not on filedocumented in this encounter Care Teams Reporting Specialist Relationship Specialty Start Date End Date Maria Del Carmen Nogueira PA-C PCP - General 03/23/14 documented as of this encounter
--- OUTSIDE RECORDS SUMMARY | 2023-11-10 17:36 | XMS_ITS | Encounter Summary ---
Author Organization [facility] Address [address] [place] [address] Care Team Providers Care Aluminum Molding Machine Operator Name Role Phone Maria Del Carmen Nogueira PA-C Primary Care Provider + Encounter Details Date Type Department Care Team (Late st Contact Info) Description 10/12/2019 Lab Requisition [facility] Pathology & Laboratory Medicine - [facility] [address] [place] [address] Starla Calvert, CONTROLS PROJECT ENGINEER [address] [place] [address] Encounter for other general examination Social History [...] Procedure Name Priority Date/Time Associated Diagnosis Comments PAP TEST Today 10/12/2019 11:15 EDT Encounter for other general examination CHLAMYDIA/N. GONORRHOEAE AMPLIFIED NUCLEIC ACID, THINPREP Today 10/12/2019 11:15 EDT HPV DNA DETECTION WITH GENOTYPING, PCR Today 10/12/2019 11:15 EDT Encounter for other general examination documented in this encounter Results * HUMAN PAPILLOMAVIRUS (HPV) DETECTION-HIGH RISK TYPES (10/12/2019 11:15 EDT) HPV other High Risk types, PCR Negative Negative 10/26/2019 15:12 EDT [facility] Comment:No E6 or E7 mRNA is detected from HPV types 16,18,31,33,35,39,45,51,52,56,58,59,66, and 68 by whitewater rafting guide mediated amplification. Papanicolaou smear specimen (specimen) CERVIX UTERI STRUCTURE / Unknown 10/12/2019 11:15 EDT 10/23/2019 15:02 EDT Starla Calvert APRN MICROBIOLOGY - GE NERAL ORDERABLES [facility] [address] [place] [address] * PAP TEST (10/12/2019 11:15 EDT) Specimens A. Cervix and/or Endocervix , ThinPrep Imaging System with Manual Evaluation 10/26/2019 15:12 [facility] Specimen Adequacy Satisfactory for Evaluation - transformation zone component present 10/26/2019 15:12 [facility] General Categorization Negative for intraepithelial lesion or malignancy 10/26/2019 15:12 [facility] Attestation . 10/26/2019 15:12 [facility] at 1512 HPV The result for the Human Papillomavirus (HPV) Detection-High Risk Types is Negative. No E6 or E7 mRNA is detected from HPV types 16,18,31,33,35,39 ,45,51,52,56,58,5 9,66, and 68 by whitewater rafting guide mediated amplification.Nathalia ting was performed on specimen [id number] and was resulted on 10/26/2019 1508 EDT by DONNIE, LAB INSTRUMENT RESULTS IN 10/26/2019 15:12 T [facility] Scanned Images 10/26/2019 15:12 T [facility] Papanicolaou smear specimen (specimen) CERVIX UTERI STRUCTURE / Unknown 10/12/2019 11:15 EDT 10/13/2019 9:47 EDT Starla A Enrike CONTROLS PROJECT ENGINEER PATHOLOGY ORDERAB LES Performing Organization Address City/[facility] Co de Phone Number [facility] [address] [place] [address] * CHLAMYDIA/N. GONORRHOEAE AMPLIFIED RNA, THINPREP (10/12/2019 11:15 EDT) Neisseria gonorrhoeae Result Negative Negative 10/13/2019 11:48 EDT [facility] Chlamydia trachomatis Result Negative Negative 10/13/2019 11:48 EDT [facility] Papanicolaou smear specimen (specimen) CERVIX UTERI STRUCTURE / Unknown 10/12/2019 11:15 EDT 10/13/2019 7:30 EDT Starla Calvert CONTROLS PROJECT ENGINEER MICROBIOLOGY - GE NERAL ORDERABLES Performing Organization Address [facility] Co de Phone Number [facility] [address] [place] [address] documented in this encounter Visit Diagnoses Diagnosis Encounter for other general examination documented in this encounter Care Teams Aluminum Molding Machine Operator Relationship Specialty Start Date End Date Maria Del Carmen Nogueira PA-C PCP - General 03/23/14 documented as of this encounter
--- OUTSIDE RECORDS SUMMARY | 2023-11-10 17:36 | XMS_ITS | Encounter Summary ---
Author Organization [facility] Address [address] [place] [address] Care Team Providers Care Case Worker Name Role Phone Unavailable Primary Care Provider Unavailabl e Encounter Details Date Type Department Care Team (Late st Contact Info) Description 08/15/2009 Results Only [facility] Laboratory Services - [facility] [address], [place] [id number] Tray Suárez MD [facility] [address] [place], [place] [address] Social History Tobacco Use Types Packs/Day Years Used Date Smoking Tobacco: Never Assessed Sex and Gender Information Value Date Recorded Sex Assigned at Not on file Gender Identity Not on file Sexual Orientation Not on file documented as of this encounter Plan of Treatment Not on file documented as of this encounter Procedures Procedure Name Priority Date/Time Associated Diagnosis Comments HPV DETECTION, HIGH RISK TYPES Routine 08/15/2009 14:26 EDT CYTOPATHOLOGY Routine 08/15/2009 0:00 EDT documented in this encounter Results * HUMAN PAPILLOMA VIRUS DNA TEST (08/15/2009 14:26 EDT) Specimen Description Cervix, ThinPrep vial [facility] Result Negative for HPV types 16, 18, 31, 33, 35, 39, 45, 51, 52, 56, 58, 59, and 68. [facility] Report Status Final 08/29/2009 [facility] 08/15/2009 14:2 6 EDT 08/24/2009 14:26 EDT Tray Suárez MD MICROBIOLOGY - GENER AL ORDERABLES [facility] [address] [place] [address] * CYTOPATHOLOGY (08/15/2009 0:00 EDT) Pathology Report: CYTOPATHOLOGY REPORT ? Reports generated via electronic interface contain original data; ? however they are lacking the format of the original report. ? Caution should be taken when reading/interpreti ng unformatted reports. ? Name: ? ROSIBEL BOWDEN ? Accession #: ? [id number] ? : ? 1970 (Age: 39) ??F ?Collect Date: ? 08/15/2009 ? Location: ? [facility] ? Receive Date: ? 08/17/2009 ? Provider: ?TRAY READY MD ? Copy to: ? Specimen/Source: ?Pap Test, Cervix/Endocervix, ThinPrep Imaging System ? with manual evaluation ? Last Menstrual Period: ? Hormonal/Contracep tive Status: ? Tubal ligation ? Other: ? HPVDX - HPV testing requested regardless of diagnosis on current ThinPrep Pap ?? test. ? SPECIMEN ADEQUACY ? Satisfactory for Evaluation ? - transformation zone component present ? GENERAL CATEGORIZATION ? Negative for Intraepithelial Lesion or Malignancy ? INTERPRETATION ? Shift in gisela present suggestive of bacterial vaginosis. ? Document reviewed and electronically signed by: ? Ailin Nikolay, CT(ASCP) ? Report Date: ??08/23/2009 16:16 ? End of Report ? [facility] 08/15/2009 08/17/2009 Tray Suárez MD PATHOLOGY ORDERABLES [facility] [address] [place] [address] documented in this encounter Visit Diagnoses Not on filedocumented in this encounter
--- OUTSIDE RECORDS SUMMARY | 2023-11-10 17:36 | XMS_ITS | Encounter Summary ---
Author Organization [facility] Address [facility] [place] [address] Care Team Providers Care Meat Boner And Slicer Name Role Phone Maria Del Carmen Nogueira Primary Care Provider [phone] Encounter Details Date Type Department Care Team (Late st Contact Info) Description 11/21/2018 [place] [phone] Lance Lea MD [facility] [address] Social History Tobacco Use Types Packs/Day Years [...] documented as of this encounter Miscellaneous Notes * Telephone Encounter - Lance Lea MD - 11/21/2018 2:43 PM EDT Received a call from Yana Lawson regarding Ms. Rosibel Dinh. Her pharmacy reportedly never received her prescription for doxycyline from her last discharge from [facility] on 11/19/2018. Yana called [facility] in [place] and confirmed it was never received. According to the documentation, doxycyline was ordered prior to discharge and should be continued for panniculitis and UTI in addition tokeflex (which she is taking). Ordered doxycyline 100mg po bid to be completed on 11/24/2018 per the last discharge summary. Lance Lea MD General Internal Medicine documented in this encounter Plan of Treatment Not on file documented as of this encounter Visit Diagnoses Not on filedocumented in this encounter Care Teams Meat Boner And Slicer Relationship Specialty Start Date End Date Maria Del Carmen Nogueira PA [address] [place] [address] PCP - General 01/27/14 10/05/19 documented as of this encounter
--- OUTSIDE RECORDS SUMMARY | 2023-11-10 17:36 | XMS_ITS | Encounter Summary ---
Author Organization [facility] Address [facility] [place] [address] Care Team Providers Care Asphalt Roller Operator Name Role Phone Maria Del Carmen Nogueira Primary Care Provider [phone]- [phone] Reason for Visit * Reason Onset Date Comments Referral 09/15/2017 Encounter Details Date Type Department Care Team (Late st Contact Info) Description 09/15/2017 Telephone Weight and Wellness at [address] [phone] Jeanine Bai APRN [facility] [place] [address] Referral Social History Tobacco Use Types Packs/Day Years [...] encounter Miscellaneous Notes * Telephone Encounter - Emilee Mccollum - 09/15/2017 11:07 AM EDT Please review Thank you documented in this encounter Plan of Treatment Not on file documented as of this encounter Visit Diagnoses Not on filedocumented in this encounter Care Teams Asphalt Roller Operator Relationship Specialty Start Date End Date Maria Del Carmen Nogueira PA [address] [place] [address] PCP - General 01/27/14 10/05/19 documented as of this encounter
--- OUTSIDE RECORDS SUMMARY | 2023-11-10 17:36 | XMS_ITS | Encounter Summary ---
Author Organization [facility] Address [address] [place] [address] Care Team Providers Care Bacteriology Research Assistant Name Role Phone Unknown, Provider Primary Care Provider [phone] Encounter Details Date Type Department Care Team (Late st Contact Info) Description 03/21/2014 Results Only [facility] [phone] Bia Hooper MD [address] [place] [address] Social History Tobacco Use Types Packs/Day Years Used Date Smoking Tobacco: Never Assessed Sex and Gender Information Value Date Recorded Sex Assigned at Not on file Gender Identity Not on file Sexual Orientation Not on file documented as of this encounter Plan of Treatment Not on file documented as of this encounter Procedures Procedure Name Priority Date/Time Associated Diagnosis Comments SURGICAL PATHOLOGY Routine 03/21/2014 8:22 EST PAP TEST- RESULT ONLY Routine 03/21/2014 0:00 EST documented in this encounter Results * SURGICAL PATHOLOGY (03/21/2014 8:22 EST) Pathology Report: SURGICAL PATHOLOGY REPORT Reports generated via electronic interface contain original data; however they are lacking the format of the original report. Caution should be taken when reading/interpreting unformatted reports. Name: ? ROSIBEL BOWDEN ? Accession #: ? [id number] ? : ? 1970 (Age: 43) ??F ? Collect Date: ? 03/21/2014 ? Location: ? [facility] ? Receive Date: ? 03/21/2014 ? Provider: BIA HOOPER MD Copy to: MARÍA GILLESPIE ? Final Pathologic Diagnosis: ENDOMETRIUM, BIOPSY: - ??Proliferative endometrium with focal simple hyperplasia. See comment. - ??Tubal metaplasia. - ??Fragments of benign endocervical tissue. - ??No cytologic atypia identified. Comment: The specimen primarily consists of fragmented endometrium with one intact piece of glands and stroma showing a focal area of increased gland to stroma ratio. Deeper sections have been examined. Spooling Machine Operator sections of this case were reviewed at the intradepartmental consultation conference. ?? Document reviewed and electronically signed by: KARISHMA PORTILLO MD Report ??Date: 03/24/2014 15:40 By the signature above, the attending physician certifies that he/she has personally conducted a gross and/or microscopic examination of the described specimens and rendered or confirmed the above diagnosis. Specimen(s) Received: Endometrial bx Clinical History: Menorrhagia Gross Description: ? Received in formalin labelled with proper patient identification (initials S, L) and endometrial biopsy is an aggregate of blood-tinged mucus and red-brown tissue fragments (2.0 x 0.3 x 0.3 cm). Submitted in toto in block 1. Lori Melvin 03/22/2014 End of Report [facility] 03/21/2014 8:22 EST 03/21/2014 8:22 EST Bia Hooper MD PATHOLOGY ORDERABLES Performing Organization Address City/State/[facility] Co de Phone Number [facility] [address] [place] [address] * PAP TEST- RESULT ONLY (03/21/2014 0:00 EST) Pathology Report: CYTOPATHOLOGY REPORT Reports generated via electronic interface contain original data; however they are lacking the format of the original report. Caution should be taken when reading/interpreti ng unformatted reports. Name: ? ROSIBEL BOWDEN ? Accession #: ? [id number] ? : ? 1970 (Age: 43) ??F ?Collect Date: ? 03/21/2014 ? Location: ? [facility] ? Receive Date: ? 03/22/2014 ? Provider: BIA HOOPER MD Copy to: MARÍA GILLESPIE ? Final Report SPECIMEN ADEQUACY ? Satisfactory for Evaluation - transformation zone component present - scant squamous epithelial component secondary to excessive mucus GENERAL CATEGORIZATION ? Negative for Intraepithelial Lesion or Malignancy ?? Menstrual/Pregnanc y Status: ??Menorrhagia Other: Additional clinical information: 08/2009 NEG/NEG PAP , HX OF 1 ABN PAP NL F/U Specimen/Source: ??Pap Test, Cervix/Endocervix, ThinPrep Imaging System with manual evaluation Document reviewed and electronically signed by: ? MALGORZATA Courtney(ASCP) ? Report ??Date: 04/04/2014 13:01 HPV with Pap Test ? Date Ordered: ? 04/04/2014 ? Status: ?? Signed Out ?Date Complete: ? 04/06/2014 ? By: ??System Interface ? Date Reported: ? 04/06/2014 ? Interpretation RESULT: Negative for HPV. No E6 or E7 mRNA is detected from HPV types 16,18,31,33,35, 39,45,51,52,56,58, 59,66, and 68 by client service coordinator mediated amplification. Comments Document reviewed and electronically signed by: ? System Interface ? Report date: 04/06/2014 By the signature above, the attending physician certifies that he/she has personally conducted a gross and/or microscopic examination of the described specimens and rendered or confirmed the above diagnosis. End of Report [facility] 03/21/2014 03/22/2014 Bia Hooper MD PATHOLOGY ORDERABLES Performing Organization Address City/State/[facility] Co de Phone Number [facility] [address] [place] [address] documented in this encounter Visit Diagnoses Not on filedocumented in this encounter Care Teams Bacteriology Research Assistant Relationship Specialty Start Date End Date Unknown, Provider, PCP - General 12/05/11 03/22/14 documented as of this encounter
--- OUTSIDE RECORDS SUMMARY | 2023-11-10 17:36 | XMS_ITS | Encounter Summary ---
Author Organization [facility] Address [address] [place] [address] Care Team Providers Care Director Television News Name Role Phone Maria Del Carmen Nogueira PA-C Primary Care Provider + Encounter Details Date Type Department Care Team (Late st Contact Info) Description 08/11/2021 Lab Requisition [facility] Pathology & Laboratory Medicine - [facility] [address] [place], [place] [phone] Outr Resulting Lab, Provider Social History Tobacco [...] Diagnosis Comments LEGIONELLA ANTIGEN DETECTION, URINE Routine 08/10/2021 22:00 EDT documented in this encounter Results * LEGIONELLA ANTIGEN DETECTION, URINE (08/10/2021 22:00 EDT) Legionella Antigen Detection Negative Negative 08/12/2021 19:21 EDT [facility] Urine 08/10/2021 22:0 0 EDT 08/12/2021 16:54 EDT Provider Outr Resulting Lab MICROBIOLOGY - GENERAL ORDERABLES [facility] [address] [place] [address] documented in this encounter Visit Diagnoses Not on filedocumented in this encounter Care Teams Director Television News Relationship Specialty Start Date End Date Maria Del Carmen Nogueira PA-C PCP - General 03/23/14 documented as of this encounter
--- OUTSIDE RECORDS SUMMARY | 2023-11-10 17:36 | XMS_ITS | Referral Summary ---
Author Organization [facility] Address [address] [place] [address] Care Team Providers Care Sales Representative Publications Name Role Phone Maria Del Carmen Nogueira [...] Orientation Not on file Plan of Treatment Not on file Care Teams Sales Representative Publications Relationship Specialty Start Date End Date Maria Del Carmen Nogueira PA-C PCP - General 03/23/14
--- OUTSIDE RECORDS SUMMARY | 2023-11-10 17:36 | XMS_ITS | Encounter Summary ---
Author Organization [facility] Address [address] [place] [address] Care Team Providers Care Solution Engineer Name Role Phone Maria Del Carmen Nogueira PA-C Primary Care Provider + Encounter Details Date Type Department Care Team (Late st Contact Info) Description 06/11/2023 Lab Requisition [facility] Pathology & Laboratory Medicine - [facility] [address] [place], [place] [id number] Outr Resulting Lab, Provider Social History Tobacco [...] (HERPES SIMPLEX VIRUS) MOLECULAR DETECTION, PCR Routine 06/11/2023 14:00 EDT documented in this encounter Results * HSV (HERPES SIMPLEX VIRUS) MOLECULAR DETECTION, PCR (06/11/2023 14:00 EDT) Herpes Simplex Virus Molecular Detection 1, PCR Negative Negative 06/12/2023 13:32 EDT [facility] Herpes Simplex Virus Molecular Detection 2, PCR Negative Negative 06/12/2023 13:32 EDT [facility] Swab VULVAL STRUCTURE / Unknown 06/11/2023 14:00 EDT 06/11/2023 21:18 EDT Provider Outr Resulting Lab MICROBIOLOGY - GENERAL ORDERABLES [facility] [address] [place] [address] documented in this encounter Visit Diagnoses Not on filedocumented in this encounter Care Teams Solution Engineer Relationship Specialty Start Date End Date Maria Del Carmen Nogueira PA-C PCP - General 03/23/14 documented as of this encounter
--- OUTSIDE RECORDS SUMMARY | 2023-11-10 17:36 | XMS_ITS | Encounter Summary ---
Author Organization [facility] Address [address] [place] [address] Care Team Providers Care Bottle Cleaner Name Role Phone Unavailable Primary Care Provider Unavailabl e Encounter Details Date Type Department Care Team (Late st Contact Info) Description 05/11/2008 Before PRISM Converted Visit (Maple) [facility] - Maple conversion [address] [place] [address] Tray Suárez MD [facility] [address] [place], [place] [address] Social History Tobacco Use Types Packs/Day Years [...] Comments HPV DETECTION, HIGH RISK TYPES Routine 05/11/2008 15:10 EDT CYTOPATHOLOGY Routine 05/11/2008 0:00 EDT documented in this encounter Results * HUMAN PAPILLOMA VIRUS DNA TEST (05/11/2008 15:10 EDT) Specimen Description Cervix, ThinPrep vial [facility] Result Negative for HPV types 16, 18, 31, 33, 35, 39, 45, 51, 52, 56, 58, 59, and 68. [facility] Report Status Final 05/19/2008 [facility] 05/11/2008 15:1 0 EDT 05/16/2008 15:10 EDT Tray Suárez MD MICROBIOLOGY - GENER AL ORDERABLES [facility] [address] [place] [address] * CYTOPATHOLOGY (05/11/2008 0:00 EDT) Pathology Report: CYTOPATHOLOGY REPORT ? Reports generated via electronic interface contain original data; ? however they are lacking the format of the original report. ? Caution should be taken when reading/interpreti ng unformatted reports. ? Name: ? ROSIBEL BOWDEN ? Accession #: ? [id number] ? : ? 1970 (Age: 37) ??F ?Collect Date: ? 05/11/2008 ? Location: ? [facility] ? Receive Date: ? 05/12/2008 ? Provider: ?TRAY READY MD ? Copy to: ? Specimen/Source: ?Pap Test, Cervix/Endocervix, ThinPrep Imaging System ? with manual evaluation ? Last Menstrual Period: ? 03/19/09 ? Hormonal/Contracep tive Status: ? Tubal ligation ? Other: ? Additional clinical information: End of menses currently ? HPVDX - HPV testing requested regardless of diagnosis on current ThinPrep Pap ?? test. ? SPECIMEN ADEQUACY ? Satisfactory for Evaluation ? - transformation zone component present ? GENERAL CATEGORIZATION ? Negative for Intraepithelial Lesion or Malignancy ? INTERPRETATION ? Shift in gisela present suggestive of bacterial vaginosis. ? Document reviewed and electronically signed by: ? Olvin Hussein, CT(ASCP) ? Report Date: ??05/16/2008 11:32 ? End of Report ? [facility] 05/11/2008 05/12/2008 Tray Suárez MD PATHOLOGY ORDERABLES [facility] [address] [place] [address] documented in this encounter Visit Diagnoses Not on filedocumented in this encounter
--- OUTSIDE RECORDS SUMMARY | 2023-11-10 17:36 | XMS_ITS | Encounter Summary ---
Author Organization [facility] Address [facility] [place] [address] Care Team Providers Care Rubber Goods Assembler Name Role Phone Maria Del Carmen Nogueira Primary Care Provider [phone]- [phone] Encounter Details Date Type Department Care Team (Late st Contact Info) Description 03/03/2019 10:55 AM EST - 03/03/2019 11:59 PM [facility] Hospital Encounter [place] [address] [place] [address] [place] [address] [address] [place], [place] [id number] Congestive heart failure, unspecified HF chronicity, unspecified heart failure type Discharge Disposition: Home Social History Tobacco Use [...] topically 2 times daily. 70 g 11/19/2018 oxyCODONE-acetaminophe n (PERCOCET) 10-325 mg Tablet Take 0.5 tablets [...] 4 hours as needed for Wheezing. 12/17/2021 doxycycline monohydrate (MONODOX) 100 mg Capsule Take 1 capsule by mouth 2 times daily. 7 capsule 11/21/2018 12/17/2021 gabapentin (NEURONTIN) 800 mg Tablet Take 1 [...] daily. 12/17/2021 documented as of this encounter Plan of Treatment Not on file documented as of this encounter Procedures Procedure Name Priority Date/Time Associated Diagnosis Comments ECHO COMPLETE Routine 03/03/2019 11:02 AM EST Congestive heart failure, unspecified HF chronicity, unspecified heart failure type documented in this encounter Results * ECHO COMPLETE (03/03/2019 11:02 AM EST) EF 55 HEARTLAB SYSTEM Anatomical Region Laterality Modality Other 03/03/2019 Narrative 03/03/2019 11:43 AM EST Procedure: ?Transthoracic Echocardiogram Patient: ?DENNISE ALEXIS Apple. . ??(Age): 1970(48y) Med Rec#: ? [id number] ?Sex: ?F ? Site Loc: ? [facility] ??Ht / Wt: ??157.48(cm)/115. Pt. Loc: ?Adult Floor ? BSA: ?2.12 Study Date: ?? 03/03/2019 ?Pt. Type: Inpatient Tape: ? Referring: MAURA Referring: NV (Diag Imaging) Referring: NV(Med Rec) Referring: NV(Med/Surg) Reading: Stephen Blanton ??([id number]) Physical Therapy Supervisor: [facility] Physical Therapy Supervisor: [facility] Diagnosis: *Heart failure, unspecified (I50.9) BP: ? 139/82 SUMMARY: 1. The left ventricle is mildly dilated. Mild concentric left ventricular hypertrophy is observed. There is normal global left ventricular systolic function. Ejection fraction is estimated to be 55%. There are no left ventricular segmental wall motion abnormalities within the limitation of technically limited images. 2. The right ventricle is probably normal in size. Right ventricular global systolic function is normal. The estimated pulmonary artery systolic pressure is 39 mmHg. 3. The left atrium is mildly dilated. The right atrium is mildly dilated. 4. The aortic valve is tricuspid. Mild (1+/4+) aortic valve regurgitation is present. The aortic root is normal in size. 5. See remainder of report for additional findings. 6. There is no prior study for comparison. Findings ? : Study Quality: ? Technically limited Left Ventricle: ? The left ventricle is mildly dilated. ?Mild concentric left ventricular hypertrophy is observed. ?There is no evidence of LVOT obstruction. ?There is normal global left ventricular systolic function. ??Ejection fraction is estimated to be 55%. ?There are no left ventricular segmental wall motion abnormalities. Left Atrium: ? The left atrium is mildly dilated. Right Ventricle: ? The right ventricle is probably normal in size. ?Right ventricular global systolic function is normal. ?The estimated pulmonary artery systolic pressure is 39 mmHg. ?The estimated right atrial pressure is 3 mmHg. Right Atrium: ? The right atrium is mildly dilated. Aortic Valve: ? The aortic valve is tricuspid. ?There is no evidence of aortic valve stenosis. ?Mild (1+/4+) aortic valve regurgitation is present. Mitral Valve: ? The mitral valve leaflets are mildly thickened. ?There is mitral annular calcification. ?There is trace mitral regurgitation present. Tricuspid Valve: ? The tricuspid valve leaflets are mildly thickened. ?There is trace tricuspid regurgitation present. Pulmonic Valve: ? The pulmonic valve appears normal in structure and function. ?There is trace pulmonic regurgitation present. Aorta: ? The aortic root is normal in size. ?There is mild dilatation of the ascending aorta.3.7cm Venous: ? The inferior vena cava appears normal in size. ?There is a greater than 50% respiratory change in the inferior vena cava dimension. Misc: ? See remainder of report for additional findings. ?Two-dimensional echo, spectral Doppler and color Doppler performed. Chambers 2D ?Value [...] (Range) ? LA ESV BP (A/L) inde33.35 ?ml/m2 ? LV ESV SP 4CH (MOD) 30 ? ml ? LV ESV SP 2CH (MOD) 28.3 ? ml ? LV EDV BP ? 73.08 ?ml ? LV ESV BP ? 29.08 ?ml ? BP EF (MOD) ? 60.2 ? % ? Diastolic/Systolic Function ?Value ?Units (Range) ? MV E-wave Vmax ?0.58 ? m/sec ? MV deceleration [id number] ? msec ? MV A-wave Vmax ?0.61 ? m/sec [...] gradient ??3.2 ?mmHg ? PV acceleration time58.94 ?msec ? PV ejection time ?258.76 ? msec ? PV AT:ET ?0.23 ? ratio ? Wall Motion: Segment Name ?Rest ? Base-Anteroseptal ?? Normal ? Base-Anterior ? Normal ? Base-Anterolateral ??Normal ? Base-Posterolateral Normal ? Base-Inferior ? Normal ? Base-Inferoseptal ?? Normal ? Mid-Anteroseptal ?Normal ? Mid-Anterior ?Normal ? Mid-Anterolateral ?? Normal ? Mid-Posterolateral ??Normal ? Mid-Inferior ?Normal ? Mid-Inferoseptal ?Normal ? [place]-Septal ? Normal ? [place]-Anterior ? Normal ? [place]-Lateral ?Normal ? [place]-Inferior ? Normal ? [place]-Tip ?Normal ? This report has been electronically signed by: Stephen Blanton MD ? 03/03/2019 11:39:02 Images reviewed and interpretation verified [facility] Cardiac Ultrasound Laboratory Procedure Note Stephen Blanton MD - 03/03/2019 Procedure: Transthoracic Echocardiogram Patient: DENNISE Renteria DOB(Age): 1970(48y) Med Rec#: [id number] Sex: F Site Loc: [facility] Ht / Wt: 157.48(cm)/115. Pt. Loc: Adult Floor BSA: 2.12 Study Date: 03/03/2019 Pt. Type: Inpatient Tape: Referring: MAURA Referring: KITARH (Diag Imaging) Referring: [facility](Med Rec) Referring: [facility](Med/Surg) Reading: Stephen Blanton ([id number]) Physical Therapy Supervisor: [facility] Physical Therapy Supervisor: [facility] Diagnosis: *Heart failure, unspecified (I50.9) BP: 139/82 SUMMARY: 1. The left ventricle is mildly dilated. Mild concentric left ventricular hypertrophy is observed. There is normal global left ventricular systolic function. Ejection fraction is estimated to be 55%. There are no left ventricular segmental wall motion abnormalities within the limitation of technically limited images. 2. The right ventricle is probably normal in size. Right ventricular global systolic function is normal. The estimated pulmonary artery systolic pressure is 39 mmHg. 3. The left atrium is mildly dilated. The right atrium is mildly dilated. 4. The aortic valve is tricuspid. Mild (1+/4+) aortic valve regurgitation is present. The aortic root is normal in size. 5. See remainder of report for additional findings. 6. There is no prior study for comparison. Findings : Study Quality: Technically limited Left Ventricle: The left ventricle is mildly dilated. Mild concentric left ventricular hypertrophy is observed. There is no evidence of LVOT obstruction. There is normal global left ventricular systolic function. Ejection fraction is estimated to be 55%. There are no left ventricular segmental wall motion abnormalities. Left Atrium: The left atrium is mildly dilated. Right Ventricle: The right ventricle is probably normal in size. Right ventricular global systolic function is normal. The estimated pulmonary artery systolic pressure is 39 mmHg. The estimated right atrial pressure is 3 mmHg. Right Atrium: The right atrium is mildly dilated. Aortic Valve: The aortic valve is tricuspid. There is no evidence of aortic valve stenosis. Mild (1+/4+) aortic valve regurgitation is present. Mitral Valve: The mitral valve leaflets are mildly thickened. There is mitral annular calcification. There is trace mitral regurgitation present. Tricuspid Valve: The tricuspid valve leaflets are mildly thickened. There is trace tricuspid regurgitation present. Pulmonic Valve: The pulmonic valve appears normal in structure and function. There is trace pulmonic regurgitation present. Aorta: The aortic root is normal in size. There is mild dilatation of the ascending aorta.3.7cm Venous: The inferior vena cava appears normal in size. There is a greater than 50% respiratory change in the inferior vena cava dimension. Misc: See remainder of report for additional findings. Two-dimensional echo, spectral Doppler and color [...] MV E-wave Vmax 0.58 m/sec MV deceleration [id number] msec MV A-wave Vmax 0.61 m/sec MV [...] Normal Mid-Posterolateral Normal Mid-Inferior Normal Mid-Inferoseptal Normal [place]-Septal Normal [place]-Anterior Normal [place]-Lateral Normal [place]-Inferior Normal [place]-Tip Normal This report has been electronically signed by: Stephen Blanton MD 03/03/2019 11:39:02 Images reviewed and interpretation verified [facility] Cardiac Ultrasound Laboratory Ghassan Gonzalez MD ECHO ORDERAB LES documented in this encounter Visit Diagnoses Diagnosis Congestive heart failure, unspecified HF chronicity, unspecified heart failure type documented in this encounter Care Teams Rubber Goods Assembler Relationship Specialty Start Date End Date Maria Del Carmen Nogueira PA [address] [place] [address] PCP - General 01/27/14 10/05/19 documented as of this encounter
--- OUTSIDE RECORDS SUMMARY | 2023-11-10 17:36 | XMS_ITS | Encounter Summary ---
Author Organization [facility] Address [address] [place] [address] Care Team Providers Care Senior Qualitative Researcher Name Role Phone Maria Del Carmen Nogueira PA-C Primary Care Provider + Encounter Details Date Type Department Care Team (Late st Contact Info) Description 03/19/2021 Lab Requisition [facility] Pathology & Laboratory Medicine - [facility] [address] [place], [place] [id number] Outr Resulting Lab, Provider Social History Tobacco [...] Procedure Name Priority Date/Time Associated Diagnosis Comments ZZCOVID-19 TEST [facility] PCR Today 03/19/2021 14:00 EST COVID-19 TESTING Routine 03/19/2021 14:0 0 EST documented in this encounter Results * COVID-19 TEST [facility] PCR (03/19/2021 14:00 EST) Swab 03/19/2021 14:0 0 EST 03/20/2021 16:40 EST Provider Outr Resulting Lab MICROBIOLOGY - GENERAL ORDERABLES [facility] [address] [place] [address] * COVID-19 TESTING (03/19/2021 14:00 EST) COVID-19 rt-PCR Result Negative Negative 03/21/2021 11:17 EST [facility] Comment: This test has not been FDA cleared or approved. This test has been authorized by FDA under an EUA for use by authorized laboratories. This test has been authorized only for detection of nucleic acid from 2019-nCoV, not for any other viruses or pathogens. This test is only authorized for the duration of the declaration that circumstances exist justifying the authorization of emergency use of in vitro diagnostic tests for detection and/or diagnosis of 2019-nCoV under section 564(b)(1) of Act, 21 U.S.C ?? 360bbb-3(b) (1), unless the authorization is terminated or revoked sooner. Negative results do not preclude 2019-nCoV infection and should not be used as the sole basis for treatment or other patient management decisions. Negative results must be combined with clinical observations, patient history, and epidemiological information. Testing was performed using the elier SARS-CoV-2 assay ([employer] on the Elier [address]00 System Performing Lab [address] [address] [facility] Lab 03/21/2021 11:17 EST [facility] Swab 03/19/2021 14:0 0 EST 03/20/2021 16:40 EST Provider Outr Resulting Lab MICROBIOLOGY - GENERAL ORDERABLES [facility] [address] [place] [address] documented in this encounter Visit Diagnoses Not on filedocumented in this encounter Care Teams Senior Qualitative Researcher Relationship Specialty Start Date End Date Maria Del Carmen Nogueira PA-C PCP - General 03/23/14 documented as of this encounter
--- OUTSIDE RECORDS SUMMARY | 2023-11-10 17:36 | XMS_ITS | Encounter Summary ---
Author Organization [facility] Address [address] [place] [address] Care Team Providers Care Vp Clinical Research Name Role Phone Unavailable Primary Care Provider Unavailabl e Encounter Details Date Type Department Care Team (Late st Contact Info) Description 12/25/2004 Results Only [facility] - [facility] [address] [place] [address] Jaycee Goodman FNP [address] [place], [place] [id number] Social History Tobacco Use Types Packs/Day Years Used Date Smoking Tobacco: Never Assessed Sex and Gender Information Value Date Recorded Sex Assigned at Not on file Gender Identity Not on file Sexual Orientation Not on file documented as of this encounter Plan of Treatment Not on file documented as of this encounter Procedures Procedure Name Priority Date/Time Associated Diagnosis Comments CYTOPATHOLOGY Routine 12/25/2004 0:00 EST documented in this encounter Results * CYTOPATHOLOGY (12/25/2004 0:00 EST) Pathology Report: CYTOPATHOLOGY REPORT Reports generated via electronic interface contain original data; however they are lacking the format of the original report. Caution should be taken when reading/interpreti ng unformatted reports. Name: ? ROSIBEL BOWDEN ? Accession #: ? [id number] : ? 1970 (Age: 34) ??F ?Collect Date: ? 12/25/2004 Location: ? [facility] ? Receive Date: ? 12/27/2004 Provider: ?JAYCEE MIRELESP Copy to: ? Specimen/Source: ?ThinPrep Pap Test, Cervix/Endocervix, processed on [employer] ThinPrep Imaging System, with manual evaluation Last Menstrual Period: ? 12/25/04 Other: ? Additional clinical information: Biopsy of cervix and partial and cervical removal HPVA - HPV testing requested if ASC-US on the current ThinPrep Pap test. ? SPECIMEN ADEQUACY ? Satisfactory for Evaluation - transformation zone component absent GENERAL CATEGORIZATION ? Negative for Intraepithelial Lesion or Malignancy INTERPRETATION ? Shift in gisela present suggestive of bacterial vaginosis. ? Document reviewed and electronically signed by: ? MALGORZATA Alcazar(ASCP) ? Report Date: ??01/01/2005 13:04 End of Report [facility] 12/25/2004 12/27/2004 Jaycee MIRELESP PATHOLOGY ORDERABLES [facility] [address] [place] [address] documented in this encounter Visit Diagnoses Not on filedocumented in this encounter
--- OUTSIDE RECORDS SUMMARY | 2023-11-10 17:36 | XMS_ITS | Encounter Summary ---
Author Organization [facility] Address [address] [place] [address] Care Team Providers Care Director Financial Systems Name Role Phone Maria Del Carmen Nogueira PA-C Primary Care Provider + Encounter Details Date Type Department Care Team (Late st Contact Info) Description 03/01/2019 Lab Requisition [facility] Pathology & Laboratory Medicine - [address] [address] Unknown, Provider, Social History Tobacco Use Types Packs/Day Years Used Date Smoking Tobacco: Never Assessed Sex and Gender Information Value Date Recorded Sex Assigned at Not on file Gender Identity Not on file Sexual Orientation Not on file documented as of this encounter Plan of Treatment Not on file documented as of this encounter Procedures Procedure Name Priority Date/Time Associated Diagnosis Comments PTH INTACT Routine 03/01/2019 7:03 EST documented in this encounter Results * PTH INTACT (03/01/2019 7:03 EST) Intact PTH 45 19 - 88 pg/mL 03/02/2019 10:[address] [facility] Blood VENOUS BLOOD / Unknown 03/01/2019 7:03 EST 03/01/2019 16:37 EST Provider Unknown CHEMISTRY & BLOOD GA S ORDERABLES [facility] [address] [place] [address] documented in this encounter Visit Diagnoses Not on filedocumented in this encounter Care Teams Director Financial Systems Relationship Specialty Start Date End Date Maria Del Carmen Nogueira PA-C PCP - General 03/23/14 documented as of this encounter
--- OUTSIDE RECORDS SUMMARY | 2023-11-10 17:36 | XMS_ITS | Encounter Summary ---
Author Organization [facility] Address [address] [place] [address] Care Team Providers Care Bandmill Operator Name Role Phone Unknown, Provider Primary Care Provider Encounter Details Date Type Department Care Team (Latest Contact Info) Description 03/21/2014 15:19 EST - 03/21/2014 23:59 EST Hospital Encounter [address] [address] Unknown, Provider, Discharge Disposition: Home or Self Care Social History Tobacco Use Types Packs/Day Years Used Date Smoking Tobacco: Never Assessed Sex and Gender Information Value Date Recorded Sex Assigned at Not on file Gender Identity Not on file Sexual Orientation Not on file documented as of this encounter Discharge Disposition Disposition Code Departure Means Destination Home or Self Jail documented in this encounter Plan of Treatment Not on file documented as of this encounter Visit Diagnoses Not on filedocumented in this encounter Care Teams Bandmill Operator Relationship Specialty Start Date End Date Unknown, Provider, PCP - General 12/05/11 03/22/14 documented as of this encounter
--- OUTSIDE RECORDS SUMMARY | 2023-11-10 17:36 | XMS_ITS | Encounter Summary ---
Author Organization [facility] Address [address] [place] [address] Care Team Providers Care Human Resources Partner Name Role Phone Maria Del Carmen Nogueira PA-C Primary Care Provider + Encounter Details Date Type Department Care Team (Late st Contact Info) Description 11/03/[address] [facility] Pathology & Laboratory Medicine - [facility] [address] [place] [address] Santana Thornton MD [address] [place] [address] Encounter for other general examination Social History [...] Date/Time Associated Diagnosis Comments SURGICAL PATHOLOGY Today 11/03/2019 10 :30 EDT Encounter for other general examination documented in this encounter Results * SURGICAL PATHOLOGY (11/03/2019 10:30 EDT) Final Diagnosis A. ENDOMETRIUM, BIOPSY: - Proliferative endometrium. 11/09/2019 16:43 EDT [facility] Attestation There was significant resident/fellow involvement in the diagnostic evaluation of this case. By the signature below, the attending physician certifies that they have personally conducted a gross and/or microscopic examination of the described specimens and rendered or confirmed the above diagnosis. 11/09/2019 16:43 EDT [facility] at 1643 Clinical History AUB 11/09/2019 16:43 EDT [facility] Gross Description A. Received in formalin labelled with proper patient identification (initials S, L) and EMB is a 2.5 x 2.0 x 0.5 cm aggregate of clotted blood, blood-tinged mucus and red-brown tissue fragments. Submitted entirely in A1-A2. RAKESH BAZAN 11/03/2019 19:44 11/09/2019 16:43 EDT [facility] Resident/Bruce w: Jefferson Patel MD 11/09/2019 16:43 EDT [facility] Performing Lab [facility] 11/09/2019 16:43 EDT [facility] Scanned Images 11/09/2019 16:43 EDT [facility] Tissue ENTIRE ENDOMETRIUM / Unknown 11/03/2019 10:30 EDT 11/03/2019 16:47 EDT Santana Thornton MD PATHOLOGY ORDERABLES [facility] [address] [place] [address] documented in this encounter Visit Diagnoses Diagnosis Encounter for other general examination documented in this encounter Care Teams Human Resources Partner Relationship Specialty Start Date End Date Maria Del Carmen Nogueira PA-C PCP - General 03/23/14 documented as of this encounter
--- OUTSIDE RECORDS SUMMARY | 2023-11-10 17:36 | XMS_ITS | Encounter Summary ---
Author Organization [facility] Address [address] [place] [address] Care Team Providers Care Assistant Cook Name Role Phone María Nogueira PA-C Primary Care Provider + Encounter Details Date Type Department Care Team (Late st Contact Info) Description 12/07/2015 Results Only [facility]- [facility] [phone] Ghassan Prado, DO [address] [facility] [address] [facility], [place] [phone] Social History Tobacco Use Types Packs/Day Years Used Date Smoking Tobacco: Never Assessed Sex and Gender Information Value Date Recorded Sex Assigned at Not on file Gender Identity Not on file Sexual Orientation Not on file documented as of this encounter Plan of Treatment Not on file documented as of this encounter Procedures Procedure Name Priority Date/Time Associated Diagnosis Comments SURGICAL PATHOLOGY Routine 12/07/2015 13 :52 EDT documented in this encounter Results * SURGICAL PATHOLOGY (12/07/2015 13:52 EDT) Pathology Report: SURGICAL PATHOLOGY REPORT Reports generated via electronic interface contain original data; however they are lacking the format of the original report. Caution should be taken when reading/interpret ing unformatted reports. Name: ? ROSIBEL BOWDEN ? Accession #: ? [id number] ? : ? 1970 (Age: 45) ??F ? Collect Date: ? 12/07/2015 ? Location: ? [facility] ? Receive Date: ? 12/08/2015 ? Provider: GHASSAN PRADO DO Copy to: MARÍA NOGUEIRA PA-C ? Final Pathologic Diagnosis: GALLBLADDER, CHOLECYSTECTOMY: - ??Chronic cholecystitis with adenomyosis and cholesterolosis. - ??Cholelithiasis. Document reviewed and electronically signed by: DEBORAH JENNINGS MD Report ??Date: 12/12/2015 13:19 By the signature above, the attending physician certifies that he/she has personally conducted a gross and/or microscopic examination of the described specimens and rendered or confirmed the above diagnosis. Specimen(s) Received: Gallbladder Clinical History: Biliary colic Gross Description: ? Received in formalin labelled with proper patient identification (initials S, L) and gallbladder is an intact gallbladder (7.0 x 4.0 x up to 2.5 cm) with a segment of cystic duct (0.4 cm in length x 0.7 cm in diameter). ? The serosa is morales-pink, smooth and glistening. The mucosa is bile-stained, velvety with prominent yellow streaking and the wall is 0.2 cm in thickness. The cystic duct lumen is patent. The cystic duct margin is inked blue. A single 1.0 cm in greatest dimension brown-black cholelith is present. ? Two financial service representative sections including the entire thickened region and the inked en face cystic duct margin are submitted in 1. Dr. Krishna 12/08/2015 4:05 PM End of Report [facility] 12/07/2015 13:5 2 EDT 12/08/2015 13:52 EDT Ghassan Prado DO PATHOLOGY ORDER [place] [facility] [address] [place] [address] documented in this encounter Visit Diagnoses Not on filedocumented in this encounter Care Teams Assistant Cook Relationship Specialty Start Date End Date María Nogueira PA-C PCP - General 03/23/14 documented as of this encounter
--- OUTSIDE RECORDS SUMMARY | 2023-11-10 17:36 | XMS_ITS | Encounter Summary ---
Author Organization [facility] Address [address] [place] [address] Care Team Providers Care High School Coach Name Role Phone Unavailable Primary Care Provider Unavailabl e Encounter Details Date Type Department Care Team (Late st Contact Info) Description 08/28/2006 Results Only [facility] [address] [place] [address] Tray Brunner MD [facility] [address] [place], [place] [id number] Social History Tobacco Use Types Packs/Day Years Used Date Smoking Tobacco: Never Assessed Sex and Gender Information Value Date Recorded Sex Assigned at Not on file Gender Identity Not on file Sexual Orientation Not on file documented as of this encounter Plan of Treatment Not on file documented as of this encounter Procedures Procedure Name Priority Date/Time Associated Diagnosis Comments CYTOPATHOLOGY Routine 08/28/2006 0:00 EDT documented in this encounter Results * CYTOPATHOLOGY (08/28/2006 0:00 EDT) Pathology Report: CYTOPATHOLOGY REPORT Reports generated via electronic interface contain original data; however they are lacking the format of the original report. Caution should be taken when reading/interpreti ng unformatted reports. Name: ? ROSIBEL BOWDEN ? Accession #: ? [id number] : ? 1970 (Age: 36) ??F ?Collect Date: ? 08/28/2006 Location: ? [facility] ? Receive Date: ? 09/01/2006 Provider: ?TRAY BRUNNER MD Copy to: ? Specimen/Source: ?ThinPrep Pap Test, Cervix/Endocervix, processed on BookBag ThinPrep Imaging System, with manual evaluation Last Menstrual Period: ? 08/19/06 Hormonal/Contracep tive Status: ? Tubal ligation: BTL Treatment History: ? Cone biopsy: 2001 ? SPECIMEN ADEQUACY ? Satisfactory for Evaluation - transformation zone component present GENERAL CATEGORIZATION ? Negative for Intraepithelial Lesion or Malignancy ? Document reviewed and electronically signed by: ? SAL Chu(ASCP) ? Report Date: ??09/05/2006 08:42 End of Report URIEL LAWS 08/28/2006 09/01/2006 Tray Brunner MD PATHOLOGY ORDERABLES Performing Organization Address City/State/[facility] Co de Phone Number URIEL LAWS [address] [place] [address] documented in this encounter Visit Diagnoses Not on filedocumented in this encounter
--- OUTSIDE RECORDS SUMMARY | 2023-11-10 17:36 | XMS_ITS | Encounter Summary ---
Author Organization [facility] Address [facility] [place] [address] Care Team Providers Care Repairer Art Objects Name Role Phone Maria Del Carmen Nogueira Primary Care Provider +1- [phone] Reason for Referral * Consultation (Routine) - Closed Specialty Diagnoses / Procedures Referred By Contac t Referred To Contact Weight and Wellness Diagnoses Morbid obesity with BMI of 50.0-59.9, adult Tristan Gusman MD [facility] [place] [address] [facility] [address] [place] [address] Referral ID Status Reason Start Date Expiration Date V isits Requested Visits Authorized [id number] Closed Consult, Test & Treat 09/15/2017 09/15/2018 1 1 Reason for Visit * Reason Comments Left Knee Pain Right Knee Pain * Consultation (Routine) - Specialty Diagnoses / Procedures Referred By Contac t Referred To Contact Orthopaedics Diagnoses Osteoarthritis, knees bilateral Maria Del Carmen Nogueira PA [address] [place] [address] [facility] [address] [place] [phone] Referral ID Status Reason Start Date Expiration Date V isits Requested Visits Authorized [id number] Consult, Test & Treat [facility] 05/28/2017 05/28/2018 1 1 Encounter Details Date Type Department Care Team (Late st Contact Info) Description 09/15/2017 9:40 AM EDT Office [place] [address] Tristan Gusman MD [facility] [place] [address] Chronic pain of both knees; Morbid obesity with BMI of 50.0-59.9, adult Social History Tobacco Use Types Packs/Day Years [...] 151.5 cm (4' 11.65) 09/15/2017 9:30 AM E DT Body Mass Index 58.3 09/15/2017 9:30 AM EDT documented in this encounter Progress Notes * Chloe Ryan - 09/15/2017 9:40 AM EDT Images from the original note were not included. Department of Orthopaedics Division of Adult Joint Reconstructive Surgery CHIEF COMPLAINT: Chief Complaint Patient presents with ??? Left Knee Pain ??? Right Knee Pain ARTHROPLASTY HISTORY/PREVIOUS KNEE SURGERY: 1. none Rosibel was referred from [facility] [address] [place] [address] I.D.: Rosibel Dinh is a 47 y.o. year old female being seen today to discuss her bilateral knee pain.she notes the right knee is more symptomatic. Her history and physical exam were reviewed in detail. She states the knee has been symptomatic for years. The pain is predominantly global. There was notinciting trauma/injury. She does not describe hip pain. She feels that her knee pain is keeping herfrom walking, exercising to lose weight. Aggravating factors [...] less than $15,000 # People Supported 1 Micronesian, , No, not Micronesian// Race White Health Literacy A little bit Currently working No Not working because: Not working due to disability Orthopeadics [place] Response 09/15/2017 KOOS JR Scores 31.31 Spine [...] sitting Moderate Degree of difficutly: Bending to floor/tile picker object Severe ALLERGIES Allergies Allergen Reactions ??? Amoxicillin Nausea And Vomiting and Rash ??? Sulfa (Sulfonamide Antibiotics) Nausea And Vomiting and Rash Allergies to metals: none known. SOCIAL HISTORY: reports that she has been smoking Cigarettes. She has been smoking about 1.00 pack per day. She has never used smokeless tobacco. She reports that she drinks alcohol. She reports thatshe does not use illicit drugs. Occupation: Not [...] clinic today alert, appears stated age and cooperative.She is alert and oriented. I have made [...] , some narrowing ; 3= moderate osteophytes, significantnarrowing, mild deformity; 4= large osteophytes, marked narrowing, [...] , some narrowing ; 3= moderate osteophytes, significantnarrowing, mild deformity; 4= large osteophytes, marked narrowing, [...] No A1C is 7.2 CHLOE RYAN MD * Tristan Gusman MD - 09/15/2017 9:40 AM EDT Images from the original note were not included. Department of Orthopaedics Division of Adult Joint Reconstructive Surgery September 15, 2017 I had the pleasure of evaluating Rosibel Dinh in clinic in conjunction with Dr. Ryan. I haveseen the patient and reviewed the history/physical and I agree with the details as written. The assessment and plan were formulated in discussion with me and I agree with them as documented. In brief this is a morbidly obese 47-year-old female with a BMI of [address] Moreno inthe past for her bilateral knees. She actually undergoes periodic Synvisc injection into her knees for severe zffp-aw-jfft arthritis. She is plagued by knee pain and presents to me to discuss the merits of joint replacement. She was told in the past that she needed to lose weight but she is unsure as a relationship of her weight to her knees. We had a lengthy discussion about her weight and how it relates to both her arthritis and the potential for knee replacement surgery. We discussed the increased risk and complication associated with morbid obesity. I outlined with her weight where it is some data would suggest she is at a potential 20 fold increased risk of a complication. We discussedspecifically wound issues and infection. I outlined with a periprosthetic joint infection that is recalcitrant to treatment she could end up with a fusion or an amputation above the knee. I was clearthese are rare occurrences but things that can occur for someone with her comorbidities and risk factors. I also explained implant longevity and at her age and with her weight she most certainly would be looking at revision surgery in the future. For her [...] to meeting with the weight and wellness [place]. All questions were answered. Tristan Gusman MD, MS Canal Equipment Mechanic, Division of Adult Reconstructive Sql Ssrs Ssis DeveloperThread Spooler of Orthopaedics Department of Orthopaedics [facility] [phone] [email or web address] documented in this encounter Plan of Treatment Scheduled Referrals Name Type Priority Associated Diagnoses Orde r Schedule Referral to [facility] [place] [facility] Referral Routine Morbid obesity with BMI of 50.0-59.9, adult Ordered: 09/15/2017 documented as of this encounter Visit Diagnoses Diagnosis Chronic pain of both knees Morbid obesity with BMI of 50.0-59.9, adult Morbid obesity documented in this encounter Care Teams Repairer Art Objects Relationship Specialty Start Date End Date Maria Del Carmen Nogueira PA [address] [place] [address] PCP - General 01/27/14 10/05/19 documented as of this encounter
--- OUTSIDE RECORDS SUMMARY | 2023-11-10 17:36 | XMS_ITS | Encounter Summary ---
Author Organization [facility] Address [facility] [place] [address] Care Team Providers Care Rubber Compounder Mixer Name Role Phone Maria Del Carmen Nogueira Primary Care Provider +1- [phone] Encounter Details Date Type Department Care Team (Late st Contact Info) Description 11/15/2018 Ancillary Procedure Radiology Library at [facility] [place] [phone] Maria Del Carmen Nogueira PA [address] [place] [address] Social History Tobacco Use Types Packs/Day Years [...] Associated Diagnosis Comments FILM LIBRARY STORAGE ONLY DX CHEST Routine 11/15/2018 12:00 AM EDT documented in this encounter Results * Film Library- Storage Only DX Chest (11/15/2018 12:00 AM EDT) Narrative [facility][NOTE 2] - 11/16/2018 1:07 AM EDT This exam is auto-finalizing. It's purpose is for storage only. Maria Del Carmen [place] IM[facility] FILM LIBRARY O RDERABLES [place], [place] documented in this encounter Visit Diagnoses Not on filedocumented in this encounter Care Teams Rubber Compounder Mixer Relationship Specialty Start Date End Date Maria Del Carmen Nogueira PA [address] [place] [address] PCP - General 01/27/14 10/05/19 documented as of this encounter
--- OUTSIDE RECORDS SUMMARY | 2023-11-10 17:36 | XMS_ITS | Encounter Summary ---
Author Organization [facility] Address [facility] [place] [address] Care Team Providers Care Harness Placer Name Role Phone María Nogueira Primary Care Provider +1- [phone] Encounter Details Date Type Department Care Team (Latest Contact Info) Description 02/25/2014 2:58 PM EST - 02/25/2014 11:59 PM EST Hospital [place] [address] CLINIC, Kendra Lares MD [address] [place] [address] [address] [place], [place] [id number] Discharge Disposition: Home Social History Tobacco Use Types Packs/Day Years Used Date Smoking Tobacco: Never Assessed Sex and Gender Information Value Date Recorded Sex Assigned at Not on file Gender Identity Not on file Sexual Orientation Not on file documented as of this encounter Plan of Treatment Not on file documented as of this encounter Procedures Procedure Name Priority Date/Time Associated Diagnosis Comments US TRANSVAGINAL NON OB Routine 02/25/2014 3:24 PM EST documented in this encounter Results * US Transvaginal non OB (02/25/2014 3:24 PM EST) Anatomical Region Laterality Modality Ultrasound 02/25/2014 3:24 PM EST Narrative 02/25/2014 3:45 PM EST Gynecological Report ? (Signed Final 02/25/2014 03:45 ? pm) Patient Info ID #: ? [id number] ?: [birth year] (43 yrs) Name: ? ROSIBEL BOWDEN ?Visit Date: 02/25/2014 03:20 pm Performed By Performed By: ?Flor Mckenna RDMS Attending: ? Floridalma NUÑEZ, Guilherme Rodriguez Referred By: ? MARÍA GAY MD Service(s) Provided ??UTV - Ultrasound - Transvaginal - [id number] ? [id number] Indications ??RLQ ABDOMINAL PAIN ??MENTRASAL ABN ------- History ------- Age: ?? 43 LMP: ?? 02/13/14 ?Day Of Cycle: ?? 13 ------ Uterus ------ Uterus: [...] ? PI ? Comments Endometrium Endometrium: ?Normal appearance Thickness(mm): ?9.19 Right Ovary Status: ?? Visualized [...] ovaries appear normal. This study was performed transvaginally. I ??viewed the images and agree with the above interpretation. ? Guilherme Hedrick MD Electronically Signed Final Report ?? 02/25/2014 03:45 pm Procedure Note Guilherme Hedrick MD - 02/25/2014 Gynecological Report (Signed Final 02/25/2014 03:45 pm) Patient Info ID #: [id number] : [birth year] (43 yrs) Name: ROSIBEL BOWDEN Visit Date: 02/25/2014 03:20 pm Performed By Performed By: Flor Mckenna RDMS Attending: Guilherme Hedrick MD Referred By: MARÍA GAY MD Service(s) Provided UTV - Ultrasound - Transvaginal - [id number] Indications RLQ ABDOMINAL PAIN MENTRASAL ABN ------- History ------- Age: 43 LMP: 02/13/14 Day Of Cycle: 13 ------ Uterus ------ Uterus: Visualized Position: Anteverted Size (cm) L: 8.79 W: 5.44 H: 5.11 Description: Multiple fibroids - see below ------ Myomas ------ Site L(cm) W(cm) D(cm) [...] ovaries appear normal. This study was performed transvaginally. I viewed the images and agree with the above interpretation. Guilherme Hedrick MD Electronically Signed Final Report 02/25/2014 03:45 pm María [facility] IM[facility] US PELVIC ORDE RABLES documented in this encounter Visit Diagnoses Not on filedocumented in this encounter Care Teams Harness Placer Relationship Specialty Start Date End Date María Nogueira PA [address] [place] [address] PCP - General 01/27/14 10/05/19 documented as of this encounter
--- OUTSIDE RECORDS SUMMARY | 2023-11-10 17:36 | XMS_ITS | Encounter Summary ---
Author Organization [facility] Address [address] [place] [address] Care Team Providers Care Sole Rougher Name Role Phone Maria Del Carmen Nogueira PA-C Primary Care Provider + Encounter Details Date Type Department Care Team (Late st Contact Info) Description 12/20/2014 Results Only [facility] [phone] Jacob Burger PA-C [address] [id number] Social History Tobacco Use Types Packs/Day Years Used Date Smoking Tobacco: Never Assessed Sex and Gender Information Value Date Recorded Sex Assigned at Not on file Gender Identity Not on file Sexual Orientation Not on file documented as of this encounter Plan of Treatment Not on file documented as of this encounter Procedures Procedure Name Priority Date/Time Associated Diagnosis Comments SUSCEPTIBILITY Routine 12/20/2014 17:22 EST documented in this encounter Results * SUSCEPTIBILITY (12/20/2014 17:22 EST) Result METHICILLIN RESISTANT STAPHYLOCOCCUS AUREUS Organism identification performed by client. 12/24/2014 8:05 EST [facility] WOUND / Unknown 12/20/2014 1 7:22 EST 12/21/2014 17:22 EST Narrative Organism Antibiotic Method Susceptibility Methicillin resistant staphylococcus aureus organism identification performed by client. Oxacillin CORIN IN-HOUSE METHOD >=4: Resistant Methicillin resistant staphylococcus aureus organism identification performed by client. Vancomycin CORIN IN-HOUSE METHOD 1: Susceptible Methicillin resistant staphylococcus aureus organism identification performed by client. Erythromycin CORIN IN-HOUSE METHOD >=8: Resistant Methicillin resistant staphylococcus aureus organism identification performed by client. Clindamycin CORIN IN-HOUSE METHOD <=0.5: Susceptible Methicillin resistant staphylococcus aureus organism identification performed by client. Ciprofloxacin CORIN IN-HOUSE METHOD >=4: Resistant Methicillin resistant staphylococcus aureus organism identification performed by client. Tetracycline CORIN IN-HOUSE METHOD <=2: Susceptible Methicillin resistant staphylococcus aureus organism identification performed by client. Trimethoprim-Sulfametho xazole CORIN IN-HOUSE METHOD >=4: Resistant Jacob Burger PA-C MICROBIOLOGY - NERAL ORDERABLES [facility] [address] [place] [address] documented in this encounter Visit Diagnoses Not on filedocumented in this encounter Care Teams Sole Rougher Relationship Specialty Start Date End Date Maria Del Carmen Nogueira PA-C PCP - General 03/23/14 documented as of this encounter
[2023-11-15 14:04] LABS: Methylphenidate 16 ng/mL (Cutoff: 10); Ritalinic Acid 3175 ng/mL (Cutoff: 50)
== END 2023-11-10 17:16 | disposition home or self-care (01) ==
LOC: NCHCN 17:15
PROVIDERS: PCP Physician Assistant Medical; Visit Provider Nurse Practitioner Family
DX: F33.9 Major depressive disorder, recurrent, unspecified (principal)
CPT/HCPCS: 80360

== ENCOUNTER 2023-12-29 15:34 | Outpatient (CLI) | payer MEDICARE, MEDICAID, SELFPAY ==
--- NOTE | 2023-12-29 13:41 | DI.RAD_ITS ---
Exam(s) XR KNEE LT 3V AP,LAT,BLACK EXAM: XR KNEE LT 3V AP,LAT,BLACK CLINICAL HISTORY: BILATERAL KNEE PAIN. TECHNIQUE: 2D digital imaging was performed of the left knee. Three images were obtained. AP, late ral and PA tunnel views were obtained. COMPARISON: CR LEFT KNEE 3 VIEW COMPLETE from 04/27/2012 FINDINGS: BONES: No acute fracture is present. No bony destructive lesion is seen. JOINTS: There is marked narrowing of the medial femoral tibial joint with [id number]-[id number]-corc. Osteophytes are seen involving all 3 joint compartments. No joint effusion is seen. No loose body. SOFT TISSUE: Normal. IMPRESSION: Marked osteoarthritis of the left knee. DATA REPOSITORY: RADIATION DOSE DELIVERED:
--- NOTE | 2023-12-29 13:41 | DI.RAD_ITS ---
Exam(s) XR KNEE RT 3V AP,LAT,BLACK EXAM: XR KNEE RT 3V AP,LAT,BLACK CLINICAL HISTORY: BILATERAL KNEE PAIN. TECHNIQUE: 2D digital imaging was performed of the right knee. Three views obtained. AP, lateral an d PA tunnel views were obtained. COMPARISON: CR RIGHT KNEE 3 VIEWS from 04/27/2012 FINDINGS: BONES: No acute fracture is present. No bony destructive lesion is seen. JOINTS: There is marked narrowing in the medial femoral tibial joint space with bone on bone. There is flattening of the articular surfaces in the medial femoral tibial joint. There osteophytes involv ing all 3 joint compartments. No joint effusion is seen. SOFT TISSUE: Normal. IMPRESSION: Marked osteoarthritis of the right knee. DATA REPOSITORY: RADIATION DOSE DELIVERED:
== END 2023-12-29 15:35 | disposition home or self-care (01) ==
LOC: DIORS 15:35
PROVIDERS: PCP Nurse Practitioner Family; Referring Provider Nurse Practitioner Family; Visit Provider Physician Assistant
DX: M17.11 Unilateral primary osteoarthritis, right knee; M17.12 Unilateral primary osteoarthritis, left knee
CPT/HCPCS: 20610; 73562; 99213; J7325

== ENCOUNTER 2024-02-03 15:51 | Outpatient (REF) | payer MEDICARE, MEDICAID, SELFPAY ==
[2024-02-03 20:35] LABS: ALT 11 U/L (14-59); AST 19 U/L (15-37); Albumin 3.2 g/dL (3.4-5.0); Alkaline Phosphatase 71 U/L (46-116); Anion Gap 5.7 mmol/L (3-11); BUN 14 mg/dL (7-18); Bilirubin, Total 0.41 mg/dL (0.2-1.0); CO2 29.3 mmol/L (21.0-32.0); CREATININE 0.6 mg/dL (0.55-1.02); Calcium 10.1 mg/dL (8.5-10.1); Chloride 103 mmol/L (98-107); Glucose 144 mg/dL (74-106); Magnesium 1.5 mg/dL (1.8-2.4); Potassium 4.4 mmol/L (3.5-5.1); Sodium 138 mmol/L (136-145); Total Protein 7.7 g/dL (6.4-8.2)
== END 2024-02-03 15:52 | disposition home or self-care (01) ==
LOC: NCHCN 15:51
PROVIDERS: PCP Nurse Practitioner Family; Visit Provider Nurse Practitioner Family
DX: E11.9 Type 2 diabetes mellitus without complications (principal); E83.42 Hypomagnesemia
CPT/HCPCS: 80053; 83735

== ENCOUNTER → 2024-06-14 08:08 | Outpatient (BNVA) | payer MEDICARE, MEDICAID, SELFPAY | PROVIDERS: PCP Nurse Practitioner Family; Referring Provider Nurse Practitioner Family; Visit Provider Physician Assistant Surgical | DX: J44.9 Chronic obstructive pulmonary disease, unspecified (principal); F17.210 Nicotine dependence, cigarettes, uncomplicated; Z23 Encounter for immunization; J96.91 Respiratory failure, unspecified with hypoxia | CPT/HCPCS: 90677; 99214; G0009; G0296 ==

== ENCOUNTER 2024-07-08 18:37 | Outpatient (REF) | payer MEDICARE, MEDICAID, SELFPAY ==
[2024-07-08 17:33] LABS: COMMENT (LAB VIEW ONLY) 16.71 mg/dL
[2024-07-08 17:38] LABS: Microalb ug/mg Crea 1046.1 ug/mg Cr
[2024-07-14 13:40] LABS: Methylphenidate Negative ng/mL (Cutoff: 10); Ritalinic Acid 1528 ng/mL (Cutoff: 50)
== END 2024-07-08 18:38 | disposition home or self-care (01) ==
LOC: NCHCN 18:37
PROVIDERS: PCP Nurse Practitioner Family; Visit Provider Nurse Practitioner Family
DX: G89.29 Other chronic pain (principal)
CPT/HCPCS: 80360; 82043; 82570

== ENCOUNTER 2024-08-02 00:19 | Outpatient (CLI) | payer MEDICARE, MEDICAID, SELFPAY ==
--- NOTE | 2024-08-02 13:42 | DI.CTLCSR_ITS ---
Exam(s) CT CHEST LUNG CANCER SCREEN EXAM: CT CHEST LUNG CANCER SCREEN CLINICAL HISTORY: Screening for lung cancer,cigarette smoker,F17.210 TECHNIQUE: Imaging Protocol: Axial computed tomography images with coronal and sagittal reformatted images were created and reviewed. Low dose screening protocol. COMPARISON: CT CT CHEST PE CTA from 07/25/2023 FINDINGS: Tracheobronchial tree: No bronchiectasis or mucus plugging. Mediastinum and Shena: No dominant adenopathy or fluid collection. Pulmonary parenchyma: Multifocal atelectasis. Expiratory changes. No consolidation or dominant measurable mass. Mild emphysematous changes, greater in the upper lobes. No significant interstitial changes. Lung Nodules: None. Pleura: No effusion. No pneumothorax. Heart: The heart is not dilated. Moderate coronary artery calcifications are seen. No pericardial effusion. Aorta: Thoracic aorta non-dilated. Tortuous. Upper abdomen: Unremarkable. Bones: Advanced degenerative disc changes in the thoracic spine. Soft Tissues: Unremarkable. IMPRESSION: No suspicious pulmonary nodules. Lung RADS Cat 1 - Negative: No nodules and definitely benign nodules Lung-RADS 1.0 CATEGORIES: Category 0 - Prior chest CT exam(s) being located for comparison. Category 1 - Annual screening in 12 months. No nodules or definitely benign nodules. Category 2 - Annual screening in 12 months. Benign appearance. Nodules with low likelihood of becoming active cancer. Category 3 - 6-month follow-up. Probably benign. Short-term follow-up suggested. Nodules with low likelihood of becoming active cancer. Category 4A - 3-month follow-up and CT/PET if >8 mm in size. Suspicious finding. Findings which require additional testing. Category 4B - Findings which require additional testing and tissue sampling. Category 4X - Category 3 or 4 nodules with additional features or imaging findings that increases the suspicion of malignancy. Modifier S- Potentially clinically significant findings (non lung cancer) RADIATION DOSE DELIVERED: !Error Total DLP DATA REPOSITORY: All CT scans at this facility are submitted to the National Radiology Data Registry (NRDR) Dose Index Registry (DIR) with the [employer] (ACR). RADIATION OPTIMIZATION: All CT scans at this facility use at least one of these dose optimization techniques: automated exposure control; mA and/or kV adjustment per patient size (includes targeted exams where dose is matched to clinical indication); or iterative reconstruction.
== END 2024-08-02 00:39 ==
LOC: DI 00:20
PROVIDERS: PCP Nurse Practitioner Family; Visit Provider Physician Assistant Surgical
DX: Z12.2 Encounter for screening for malignant neoplasm of respiratory organs (principal); F17.210 Nicotine dependence, cigarettes, uncomplicated
CPT/HCPCS: 71271

== ENCOUNTER 2024-08-04 02:29 | Outpatient (CLI) | payer MEDICARE, MEDICAID, SELFPAY ==
--- NOTE | 2024-08-04 | DI.RAD_ITS ---
Exam(s) RF BARIUM SWALLOW EXAM: RF BARIUM SWALLOW CLINICAL HISTORY: DYSPHAGIA,R13.10 TECHNIQUE: 2D and realtime digital imaging was performed. CONTRAST MATERIAL: Oral barium contrast was administered. COMPARISON: CR,XR XR PORTABLE CHEST AP from 04/27/[address] CHEST LUNG CANCER SCREEN from 08/02/2024 FINDINGS: CHEST X-RAY: Heart size is at the upper limits of normal. There is tortuosity of the thoracic aorta. No focal consolidating infiltrates are present. No pleural effusion or pneumothorax is present. The bones are within normal limits for the patient's age. There is again seen prominence of the pulmonary vasculature which may reflect pulmonary artery hypertension. ESOPHAGRAM: The esophagus is patent with no evidence for erosions, fold thickening, strictures, or masses. With regards to the motility, there is a normal primary stripping wave. There is no hiatal hernia or gastroesophageal reflux. The patient swallowed a barium tablet without difficulty. IMPRESSION: Unremarkable esophagram. RADIATION DOSE DELIVERED: jayesh Camacho=41.2 mGy
[2024-08-04] MEDS: Barium Sulfate 98% W/W 140 ML BTL PO (11:04)
[2024-08-04] MEDS: Barium Sulfate 60% W/V 355 ML BTL PO (11:05)
== END 2024-08-04 02:49 ==
LOC: DI 02:30
PROVIDERS: PCP Nurse Practitioner Family; Visit Provider Nurse Practitioner Family
DX: R13.10 Dysphagia, unspecified (principal)
CPT/HCPCS: 74221; J3490

== ENCOUNTER 2024-09-01 02:10 | Outpatient (CLI) | payer MEDICARE, MEDICAID, SELFPAY ==
--- NOTE | 2024-09-01 10:45 | DI.US_ITS ---
Exam(s) US RENAL EXAM: US RENAL CLINICAL HISTORY: MICROALBUMINURIA,R80.9. TECHNIQUE: Navarro scale, color and spectral Doppler were used. COMPARISON: US ABDOMEN ULTRASOUND (P) from 09/04/[address] CHEST PE CTA from 07/25/2023 FINDINGS: Examination was limited by patient body habitus. Renal size in cm: Right: 14.6. Left: 14.7. Echogenicity: Normal. Hydronephrosis: No. Cyst or mass: No. Nephrolithiasis: No. Other findings: None. Bladder:The bladder cannot be visualized due to the patient body habitus. Renal color flow: Symmetric and within normal limits. IMPRESSION: 1. Limited examination due to patient body habitus. The bladder was unable to be visualized on this examination. 2. No evidence of hydronephrosis. DATA REPOSITORY:
== END 2024-09-01 02:30 ==
PROVIDERS: PCP Nurse Practitioner Family; Visit Provider Nurse Practitioner Family
DX: R80.9 Proteinuria, unspecified (principal)
CPT/HCPCS: 76770

== ENCOUNTER 2024-10-13 01:15 | Outpatient (CLI) | payer MEDICARE, MEDICAID, SELFPAY ==
--- NOTE | 2024-10-13 | DI.RAD_ITS ---
Exam(s) XR KNEE LT 3V AP,LAT,BLACK EXAM: XR KNEE LT 3V AP,LAT,BLACK CLINICAL HISTORY: M25.562 Pain LT knee. TECHNIQUE: 2D digital imaging was performed of the left knee. Three images were obtained. AP, lateral and PA tunnel views were obtained. COMPARISON: CR XR KNEE LT 3V AP,LAT,BLACK from 12/29/2023 FINDINGS: BONES: No acute fracture is present. No bony destructive lesion is seen. JOINTS: There is marked narrowing again seen in the medial femoral tibial joint with [id number]-[id number]. There osteophytes in all 3 joint compartments. No joint effusion is seen. No loose body. SOFT TISSUE: Normal. IMPRESSION: Marked osteoarthritis of the left knee. DATA REPOSITORY: RADIATION DOSE DELIVERED:
--- NOTE | 2024-10-13 | DI.RAD_ITS ---
Exam(s) XR KNEE RT 3V AP,LAT,BLACK EXAM: XR KNEE RT 3V AP,LAT,BLACK CLINICAL HISTORY: M25.561 Pain RT knee. TECHNIQUE: 2D digital imaging was performed of the right knee. Three views obtained. AP, lateral and PA tunnel views were obtained. COMPARISON: CR XR KNEE RT 3V AP,LAT,BLACK from 12/29/2023 FINDINGS: BONES: No acute fracture is present. No bony destructive lesion is seen. JOINTS: There is marked narrowing of the medial femoral tibial joint with [id number]-kv-[id number]. There is also marked narrowing of the patellofemoral joint. There osteophytes in all 3 joint compartments. No joint effusion is seen. SOFT TISSUE: Normal. IMPRESSION: There is marked osteoarthritis of the right knee. DATA REPOSITORY: RADIATION DOSE DELIVERED:
--- NOTE | 2024-10-13 | DI.RAD_ITS ---
Exam(s) XR SHOULDER RT COMPLETE 2+V EXAM: XR SHOULDER RT COMPLETE 2+V CLINICAL HISTORY: RT SHOULDER PAIN, M25.511. TECHNIQUE: 2D digital imaging was performed of the right shoulder. Six images were obtained. AP, Grashey, Y-view and axillary views were obtained. COMPARISON: CR,RF RF BARIUM SWALLOW from 08/04/2024 FINDINGS: BONES: No acute fracture is present. No bony destructive lesion is seen. JOINTS: No dislocation present. There are marked degenerative changes seen at the glenohumeral joint characterized by joint space narrowing and osteophytes. There is flattening of the articular surfaces. The acromioclavicular joint is well maintained. SOFT TISSUE: Normal. IMPRESSION: Marked osteoarthritis of the glenohumeral joint. DATA REPOSITORY: RADIATION DOSE DELIVERED:
== END 2024-10-13 01:35 ==
PROVIDERS: PCP Nurse Practitioner Family; Visit Provider Nurse Practitioner Family
DX: M19.011 Primary osteoarthritis, right shoulder (principal); M17.11 Unilateral primary osteoarthritis, right knee; M17.12 Unilateral primary osteoarthritis, left knee
CPT/HCPCS: 73562; 73030

== ENCOUNTER → 2024-12-27 10:16 | Outpatient (BNVA) | payer MEDICARE, MEDICAID, SELFPAY | PROVIDERS: PCP Nurse Practitioner Family; Referring Provider Nurse Practitioner Family; Visit Provider Physician Assistant Surgical | DX: J44.9 Chronic obstructive pulmonary disease, unspecified (principal); F17.210 Nicotine dependence, cigarettes, uncomplicated | CPT/HCPCS: 99214 ==

== ENCOUNTER 2025-01-25 15:16 | Outpatient (REF) | payer MEDICARE, MEDICAID, SELFPAY ==
[2025-01-25 16:18] LABS: Anion Gap 4.5 mmol/L (3-11); BUN 13 mg/dL (9-23); CO2 29.5 mmol/L (20.0-31.0); Calcium 10.3 mg/dL (8.3-10.6); Chloride 104 mmol/L (98-107); Glucose 289 mg/dL (74-106); Potassium 4.8 mmol/L (3.5-5.1); Sodium 138 mmol/L (136-145)
== END 2025-01-25 15:17 | disposition home or self-care (01) ==
LOC: NCHCN 15:16
PROVIDERS: PCP Nurse Practitioner Family; Visit Provider Nurse Practitioner Family
DX: R60.9 Edema, unspecified (principal)
CPT/HCPCS: 80048